=== PATIENT | male | born 1950 | race Caucasian/White ===

== ENCOUNTER 2018-03-30 11:26 | Outpatient (RCR) | payer SELFPAY | END 2018-04-07 23:59 | disposition home or self-care (01) | LOC: CR 11:26 | PROVIDERS: PCP Family Medicine; Visit Provider Family Medicine | DX: I25.5 Ischemic cardiomyopathy (principal); I25.10 Atherosclerotic heart disease of native coronary artery without angina pectoris; I34.0 Nonrheumatic mitral (valve) insufficiency; I10 Essential (primary) hypertension; Z51.89 Encounter for other specified aftercare ==

== ENCOUNTER 2018-04-27 13:27 | Outpatient (RCR) | payer SELFPAY | END 2018-05-07 23:59 | disposition home or self-care (01) | LOC: CR 13:27 | PROVIDERS: PCP Family Medicine; Visit Provider Family Medicine | DX: I25.10 Atherosclerotic heart disease of native coronary artery without angina pectoris (principal); I25.5 Ischemic cardiomyopathy; I34.0 Nonrheumatic mitral (valve) insufficiency; I10 Essential (primary) hypertension; Z51.89 Encounter for other specified aftercare ==

== ENCOUNTER 2018-05-22 06:11 | Emergency (ER) | payer MEDICARE, SELFPAY ==
[2018-05-22 06:15] VITALS: BP 142/73; PULSE 87; RESP 16; TEMP 36.7; O2SAT 97
[2018-05-22] MEDS: Oxymetazolone 0.05% SPRAY 15 ML BTL NS (06:29)
--- NOTE | 2018-05-22 06:46 | W.ED.GENAD ---
Discharge Plan Disposition Patient Disposition: HOME Discharge Details Chief Complaint: Epistaxis Clinical Impression: Epistaxis Primary Care Provider: Taye Ron ED Provider: Rakesh Stockton Home Meds and New Rx's Prescriptions: Continue acetaminophen 500 MG tablet 1,000 mg PO HS RF: 0 lisinopril 10 MG tablet 10 mg PO DAILY RF: 0 omega-3 fatty acids-fish oil 1 EACH capsule 1 ea PO RF: 0 insulin aspart U-100 [Novolog PenFill U-100 Insulin] 100 UNIT/1 ML cartridge RF: 0 insulin glargine [Lantus Solostar U-100 Insulin] 100 UNIT/1 ML insulin pen 50 unit Sub-Q HS RF: 0 atorvastatin 80 MG tablet 80 mg PO DAILY RF: 0 torsemide 20 MG tablet 20 mg PO DAILY Qty: 60 RF: 3 Metoprolol Succinate 50 MG TAB.ER.24H 50 mg PO DAILY 90 Days Qty: 90 RF: 3 aspirin 81 MG tablet,chewable 81 mg PO DAILY AM RF: 0 gabapentin 600 MG tablet 300 mg PO TID RF: 0 [id number] acid-lutein [Diabetes Health Formula] 1 EACH tablet 1 ea PO DAILY AM RF: 0 adalimumab [Humira Pen Psoriasis-Uveitis] 40 MG/0.8 ML pen injector kit 40 mg SQ RF: 0 tramadol 50 MG tablet 50 mg PO Q6H PRN PRN (Reason: Pain) Qty: 12 RF: 0 metaxalone 800 MG tablet 800 mg PO Q8H PRN PRN (Reason: Spasms) Qty: 12 RF: 0 liraglutide [Victoza 2-Yousuf] 0.6 MG/0.1 ML pen injector 0.6 mg Sub-Q DAILY RF: 0 Discharge Instructions Instructions: Nosebleed (ED) Additional Instructions: Do not blow your nose. Follow-up with Ear, Nose, Throat (ENT) specialist in 3 days. Call today to schedule. Keep balloon packing intact until removed by ENT. Do not take aspirin today. Please contact your primary care physician to arrange follow-up. Return to the ER for any worsening or new concerning symptoms. Referrals: Ceasar Nelson DO [OSTEOPATHIC DOCTOR] - Juan Jose Gutierrez MD [ [facility] STAFF PHYSICIAN] - Taye Ron [Primary Care Provider] - Medical Decision Making 6:50 --68-year-old male on low-dose aspirin, here with with epistaxis right nare. Actively bleeding. Clot removed and afrin applied. Nasal clamp applied. 7:40-- Patient reassessed and bleeding continued. Pt verbally consented to nasal packing. Procedure successful. Will discharge to have patient follow-up with ENT for balloon removal. HPI General Mode of arrival: ambulatory. Date/Time Provider Initiated Documentation: 05/22/18 06:22. Limitations to Documentation: no limitations. Information obtained by: patient. HPI Narrative: 68-year-old male on low-dose aspirin presents with epistaxis. Patient notes he woke up around 530 this morning with bleeding from his right nare. Bleeding was heavy. He attempted to pack his nose with tissue and this did not resolve bleeding. No associated dizziness. Related Data Home Medications Medication Instructions Recorded Confirmed adalimumab [Humira Pen 40 mg SQ 04/07/13 05/12/15 Psoriasis-Uveitis] aspirin 81 mg PO DAILY AM 04/07/13 06/14/17 gabapentin 300 mg PO TID 04/07/13 06/14/17 [id number] acid-lutein [Diabetes 1 ea PO DAILY AM 04/07/13 06/14/17 Health Formula] acetaminophen 1,000 mg PO HS tab-cap 03/31/15 06/14/17 atorvastatin 80 mg PO DAILY tab-cap 03/31/15 06/14/17 insulin aspart U-100 [Novolog 03/31/15 05/12/15 PenFill U-100 Insulin] insulin glargine [Lantus Solostar 50 unit SUB-Q HS 03/31/15 06/14/17 U-100 Insulin] lisinopril 10 mg PO DAILY tab-cap 03/31/15 06/14/17 omega-3 fatty acids-fish oil 1 ea PO 03/31/15 05/12/15 metaxalone 800 mg PO Q8H PRN PRN #12 tablet 09/25/16 06/14/17 tramadol 50 mg PO Q6H PRN PRN #12 tab 09/25/16 06/14/17 liraglutide [Victoza 2-Yousuf] 0.6 mg SUB-Q DAILY 06/14/17 06/14/17 torsemide 20 mg PO DAILY #60 tab-cap 10/13/17 Previous Rx's Medication Instructions Recorded metaxalone 800 mg PO Q8H PRN PRN #12 tablet 09/25/16 tramadol 50 mg PO Q6H PRN PRN #12 tab 09/25/16 torsemide 20 mg PO DAILY #60 tab-cap 10/13/17 Allergies Allergy/AdvReac Type Severity Reaction Status Date / Time shellfish derived Allergy Severe Hives Unverified 05/22/18 06:20 bee pollen Allergy Mild Anaphylaxsi Unverified 05/22/18 06:20 s methotrexate [Methotrexate] Allergy Unknown Unverified 05/22/18 06:20 General Stated Complaint: Epistaxis STEPHANIE: 4 Review of Systems Constitutional Denies weakness ENT Reports as per HPI Neurologic Denies weakness Hematologic/Lymphatic Denies easy bleeding PFSH Social History Smoking/Tobacco Use Status: Former Tobacco Use Exam Const General: no acute distress and well developed HENNH General nose exam: epistaxis on the right active bleeding and source not visualized Eyes Conjunctivae: conjunctivae normal Sclera: sclerae normal Resp Effort & Inspection: normal respiratory effort and able to speak in complete sentences Cardio Jugular venous pressure: no JVD Rate: regular rate Rhythm: regular rhythm Skin General skin exam: dry skin Neuro General: alert and awake Course Vital Signs Temperature 36.7 C 05/22/18 06:15 Pulse 87 05/22/18 06:15 Respiratory Rate 16 05/22/18 06:15 Blood Pressure 142/73 H 05/22/18 06:15 Pulse Oximetry 97 05/22/18 06:15 Temperature 36.7 C 05/22/18 06:15 Temperature Source Skin 05/22/18 06:15 Pulse 87 05/22/18 06:15 Respiratory Rate 16 05/22/18 06:15 Respiratory Effort Non-Labored 05/22/18 06:17 Blood Pressure 142/73 H 05/22/18 06:15 Pulse Oximetry 97 05/22/18 06:15 Pain Level 0 05/22/18 06:15 Procedures Epistaxis Control Time Out Performed: Yes Nostril: right Nose Prepped With: phenylephrine Direct Inspection: unable to visualize Device Inserted: hemostatic balloon (rhinorocket 7.5) Patient Tolerated Procedure: well and no complications
--- NOTE | 2018-05-22 06:53 | ED.GENADUL_ITS ---
Discharge Plan Disposition Patient Disposition: HOME Discharge Details Chief Complaint: Epistaxis Clinical Impression: Epistaxis Primary Care Provider: Taye Ron ED Provider: Rakesh Stockton Home Meds and New Rx's Prescriptions: Continue acetaminophen 500 MG tablet 1,000 mg PO HS RF: 0 lisinopril 10 MG tablet 10 mg PO DAILY RF: 0 omega-3 fatty acids-fish oil 1 EACH capsule 1 ea PO RF: 0 insulin aspart U-100 [Novolog PenFill U-100 Insulin] 100 UNIT/1 ML cartridge RF: 0 insulin glargine [Lantus Solostar U-100 Insulin] 100 UNIT/1 ML insulin pen 50 unit Sub-Q HS RF: 0 atorvastatin 80 MG tablet 80 mg PO DAILY RF: 0 torsemide 20 MG tablet 20 mg PO DAILY Qty: 60 RF: 3 Metoprolol Succinate 50 MG TAB.ER.24H 50 mg PO DAILY 90 Days Qty: 90 RF: 3 aspirin 81 MG tablet,chewable 81 mg PO DAILY AM RF: 0 gabapentin 600 MG tablet 300 mg PO TID RF: 0 gn-dwx-sjujf acid-lutein [Diabetes Health Formula] 1 EACH tablet 1 ea PO DAILY AM RF: 0 adalimumab [Humira Pen Psoriasis-Uveitis] 40 MG/0.8 ML pen injector kit 40 mg SQ RF: 0 tramadol 50 MG tablet 50 mg PO Q6H PRN PRN (Reason: Pain) Qty: 12 RF: 0 metaxalone 800 MG tablet 800 mg PO Q8H PRN PRN (Reason: Spasms) Qty: 12 RF: 0 liraglutide [Victoza 2-Yousuf] 0.6 MG/0.1 ML pen injector 0.6 mg Sub-Q DAILY RF: 0 Discharge Instructions Instructions: Nosebleed (ED) Additional Instructions: Do not blow your nose. Follow-up with Ear, Nose, Throat (ENT) specialist in 3 days. Call today to schedule. Keep balloon packing intact until removed by ENT. Do not take aspirin today. Please contact your primary care physician to arrange follow-up. Return to the ER for any worsening or new concerning symptoms. Referrals: Ceasar Nelson DO [OSTEOPATHIC DOCTOR] - Juan Jose Gutierrez MD [ [facility] STAFF PHYSICIAN] - Taye Ron [Primary Care Provider] - Medical Decision Making 6:50 --68-year-old male on low-dose aspirin, here with with epistaxis right nare. Actively bleeding. Clot removed and afrin applied. Nasal clamp applied. 7:40-- Patient reassessed and bleeding continued. Pt verbally consented to nasal packing. Procedure successful. Will discharge to have patient follow-up with ENT for balloon removal. HPI General Mode of arrival: ambulatory . Date/Time Provider Initiated Documentation: 05/22/18 06:22 . Limitations to Documentation: no limitations . Information obtained by: patient . HPI Narrative: 68-year-old male on low-dose aspirin presents with epistaxis. Patient notes he woke up around 530 this morning with bleeding from his right nare. Bleeding was heavy. He attempted to pack his nose with tissue and this did not resolve bleeding. No associated dizziness. Related Data Home Medications Medication Instructions Recorded Confirmed adalimumab [Humira Pen 40 mg SQ 04/07/13 05/12/15 Psoriasis-Uveitis] aspirin 81 mg PO DAILY AM 04/07/13 06/14/17 gabapentin 300 mg PO TID 04/07/13 06/14/17 pn-zqw-pfnrg acid-lutein [Diabetes 1 ea PO DAILY AM 04/07/13 06/14/17 Health Formula] acetaminophen 1,000 mg PO HS tab-cap 03/31/15 06/14/17 atorvastatin 80 mg PO DAILY tab-cap 03/31/15 06/14/17 insulin aspart U-100 [Novolog 03/31/15 05/12/15 PenFill U-100 Insulin] insulin glargine [Lantus Solostar 50 unit SUB-Q HS 03/31/15 06/14/17 U-100 Insulin] lisinopril 10 mg PO DAILY tab-cap 03/31/15 06/14/17 omega-3 fatty acids-fish oil 1 ea PO 03/31/15 05/12/15 metaxalone 800 mg PO Q8H PRN PRN #12 tablet 09/25/16 06/14/17 tramadol 50 mg PO Q6H PRN PRN #12 tab 09/25/16 06/14/17 liraglutide [Victoza 2-Yousuf] 0.6 mg SUB-Q DAILY 06/14/17 06/14/17 torsemide 20 mg PO DAILY #60 tab-cap 10/13/17 Previous Rx's Medication Instructions Recorded metaxalone 800 mg PO Q8H PRN PRN #12 tablet 09/25/16 tramadol 50 mg PO Q6H PRN PRN #12 tab 09/25/16 torsemide 20 mg PO DAILY #60 tab-cap 10/13/17 Allergies Allergy/AdvReac Type Severity Reaction Status Date / Time shellfish derived Allergy Severe Hives Unverified 05/22/18 06:20 bee pollen Allergy Mild Anaphylaxsi Unverified 05/22/18 06:20 s methotrexate [Methotrexate] Allergy Unknown Unverified 05/22/18 06:20 General Stated Complaint: Epistaxis STEPHANIE: 4 Review of Systems Constitutional Denies weakness ENT Reports as per HPI Neurologic Denies weakness Hematologic/Lymphatic Denies easy bleeding PFSH Social History Smoking/Tobacco Use Status: Former Tobacco Use Exam Const General: no acute distress and well developed HENID General nose exam: epistaxis on the right active bleeding and source not visualized Eyes Conjunctivae: conjunctivae normal Sclera: sclerae normal Resp Effort & Inspection: normal respiratory effort and able to speak in complete sentences Cardio Jugular venous pressure: no JVD Rate: regular rate Rhythm: regular rhythm Skin General skin exam: dry skin Neuro General: alert and awake Course Vital Signs Temperature 36.7 C 05/22/18 06:15 Pulse 87 05/22/18 06:15 Respiratory Rate 16 05/22/18 06:15 Blood Pressure 142/73 H 05/22/18 06:15 Pulse Oximetry 97 05/22/18 06:15 Temperature 36.7 C 05/22/18 06:15 Temperature Source Skin 05/22/18 06:15 Pulse 87 05/22/18 06:15 Respiratory Rate 16 05/22/18 06:15 Respiratory Effort Non-Labored 05/22/18 06:17 Blood Pressure 142/73 H 05/22/18 06:15 Pulse Oximetry 97 05/22/18 06:15 Pain Level 0 05/22/18 06:15 Procedures Epistaxis Control Time Out Performed: Yes Nostril: right Nose Prepped With: phenylephrine Direct Inspection: unable to visualize Device Inserted: hemostatic balloon (rhinorocket 7.5) Patient Tolerated Procedure: well and no complications
--- NOTE | 2018-05-22 10:04 | NUR.NOTE ---
Nursing Note: At the request of ENT in [place], [place] I faxed the physicain note for referral. Jasmyn Lamas.
== END 2018-05-22 08:38 | disposition home or self-care (01) ==
PROVIDERS: Emergency Provider Student in an Organized Health Care Education/Training Program; PCP Family Medicine
DX: R04.0 Epistaxis (principal); Z79.82 Long term (current) use of aspirin; E11.9 Type 2 diabetes mellitus without complications; Z79.4 Long term (current) use of insulin; I10 Essential (primary) hypertension
CPT/HCPCS: 30901

== ENCOUNTER 2018-06-01 09:00 | Outpatient (RCR) | payer SELFPAY | END 2018-06-07 23:59 | disposition home or self-care (01) | LOC: CR 09:00 | PROVIDERS: PCP Family Medicine; Visit Provider Family Medicine | DX: Z51.89 Encounter for other specified aftercare (principal) ==

== ENCOUNTER 2018-06-15 09:00 | Outpatient (RCR) | payer SELFPAY | END 2018-07-07 23:59 | disposition home or self-care (01) | LOC: CR 09:00 | PROVIDERS: PCP Family Medicine; Visit Provider Family Medicine | DX: Z51.89 Encounter for other specified aftercare (principal) ==

== ENCOUNTER 2018-06-20 09:28 | Emergency (ER) | payer MEDICARE, SELFPAY ==
--- NOTE | 2018-06-20 09:41 | W.ED.GENAD ---
Discharge Plan Disposition Patient Disposition: HOME Condition: Stable Discharge Details Chief Complaint: Chest Pain Clinical Impression: Chest pain Primary Care Provider: Taye Ron ED Provider: Luis Felipe Ugalde Home Meds and New Rx's Prescriptions: Continue acetaminophen 500 MG tablet 1,000 mg PO HS RF: 0 lisinopril 10 MG tablet 10 mg PO DAILY RF: 0 omega-3 fatty acids-fish oil 1 EACH capsule 1 ea PO RF: 0 insulin aspart U-100 [Novolog PenFill U-100 Insulin] 100 UNIT/1 ML cartridge RF: 0 insulin glargine [Lantus Solostar U-100 Insulin] 100 UNIT/1 ML insulin pen 50 unit Sub-Q HS RF: 0 atorvastatin 80 MG tablet 80 mg PO DAILY RF: 0 torsemide 20 MG tablet 20 mg PO DAILY Qty: 60 RF: 3 Metoprolol Succinate 50 MG TAB.ER.24H 50 mg PO DAILY 90 Days Qty: 90 RF: 3 aspirin 81 MG tablet,chewable 81 mg PO DAILY AM RF: 0 gabapentin 600 MG tablet 300 mg PO TID RF: 0 xe-qjv-khfnk acid-lutein [Diabetes Health Formula] 1 EACH tablet 1 ea PO DAILY AM RF: 0 adalimumab [Humira Pen Psoriasis-Uveitis] 40 MG/0.8 ML pen injector kit 40 mg SQ RF: 0 tramadol 50 MG tablet 50 mg PO Q6H PRN PRN (Reason: Pain) Qty: 12 RF: 0 metaxalone 800 MG tablet 800 mg PO Q8H PRN PRN (Reason: Spasms) Qty: 12 RF: 0 liraglutide [Victoza 2-Yousuf] 0.6 MG/0.1 ML pen injector 0.6 mg Sub-Q DAILY RF: 0 metformin 1,000 mg Tablet 1,000 mg PO BID RF: 0 magnesium oxide 400 mg Capsule 400 mg PO BID RF: 0 Discharge Instructions Instructions: Chest Pain (ED) Additional Instructions: follow up with your search engine optimization analyst as scheduled if you have severe worsening of pain or difficutly breathing or pain while at rest return to the emergency department Medical Decision Making 68 yo male with hx of psoriasis, DM, HTN, former smoker, who states he has cad that he was told can't be operated on, comes in with chest pain. He states he normally gets chest pressure with exertion and today was clearing snow off his car when he started to have the chest pressure again and decreased when he stopped. He walked from his car to cardiac rehab and said he was again having the pain so they sent him here. He currently denies any pain. He has no fevers, dyspnea, recent immobilization. ECG unchanged, will send troponin. He has no evidence of dvt, pleuritic pain or hypoxia so unlikely PE. Normal vascular exam and no tearing back pain so doubt dissection pt's labs and xray unremarkable and he remains pain free on my questioning. admission recommended given his high heart score over 3 but he declined, has capacity to make his own decisions and understands risks including disability and . He is willing to stay for second troponin which I will order as well as repeat ekg second troponin negative, still no interest in admission and remains pain free. Offered to refer for stress testing but he wants to f/u with his search engine optimization analyst and discuss it with them. Will d/c and return precautions given Differential Diagnosis acs, ptx, angina, stable angina, dissection Imaging Data Radiologic Study: Attestation: I personally reviewed and interpreted this imaging study as follows: Imaging: X-Ray Radiologist's impression: no acute findings Lab Data Lab results reviewed: Yes I reviewed the patient's lab results. ECG Data Attestation: I personally reviewed and interpreted this ECG (s) as follows: Prior ECG tracings: available for review Interpretation: sinus tachycardia, rate of 107, pr 176, qtc normal, lvh, no acute ischemic changes compared to prior ecg 2nd ekg shows sinnus rhythm, rate of 88, pr 200, no acute changes compared to 1st ekg HPI General Mode of arrival: ambulatory. Date/Time Provider Initiated Documentation: 06/20/18 09:30. Limitations to Documentation: no limitations. Information obtained by: patient. History of Present Illness 68 year old M presents to the emergency department with the chief complaint of chest pain, described as mild, with intensity rated at 1. Quality is described as aching, and is localized to the chest. Patient reports no radiation. Patient started experiencing this hour(s) (1) Rest improves symptom(s), Movement worsens symptoms . Patient notes no other symptoms.. Patient did receive the following treatments prior to arrival, none Related Data Home Medications Medication Instructions Recorded Confirmed adalimumab [Humira Pen 40 mg SQ 04/07/13 05/12/15 Psoriasis-Uveitis] aspirin 81 mg PO DAILY AM 04/07/13 05/22/18 gabapentin 300 mg PO TID 04/07/13 05/22/18 eb-ekk-thcuh acid-lutein [Diabetes 1 ea PO DAILY AM 04/07/13 05/22/18 Health Formula] acetaminophen 1,000 mg PO HS tab-cap 03/31/15 05/22/18 atorvastatin 80 mg PO DAILY tab-cap 03/31/15 05/22/18 insulin aspart U-100 [Novolog 03/31/15 05/12/15 PenFill U-100 Insulin] insulin glargine [Lantus Solostar 50 unit SUB-Q HS 03/31/15 05/22/18 U-100 Insulin] lisinopril 10 mg PO DAILY tab-cap 03/31/15 05/22/18 omega-3 fatty acids-fish oil 1 ea PO 03/31/15 05/12/15 metaxalone 800 mg PO Q8H PRN PRN #12 tablet 09/25/16 05/22/18 tramadol 50 mg PO Q6H PRN PRN #12 tab 09/25/16 05/22/18 liraglutide [Victoza 2-Yousuf] 0.6 mg SUB-Q DAILY 06/14/17 05/22/18 torsemide 20 mg PO DAILY #60 tab-cap 10/13/17 05/22/18 magnesium oxide 400 mg PO BID 05/22/18 05/22/18 metformin 1,000 mg PO BID 05/22/18 05/22/18 Previous Rx's Medication Instructions Recorded metaxalone 800 mg PO Q8H PRN PRN #12 tablet 09/25/16 tramadol 50 mg PO Q6H PRN PRN #12 tab 09/25/16 torsemide 20 mg PO DAILY #60 tab-cap 10/13/17 Allergies Allergy/AdvReac Type Severity Reaction Status Date / Time shellfish derived Allergy Severe Hives Unverified 05/22/18 06:20 bee pollen Allergy Mild Anaphylaxsi Unverified 05/22/18 06:20 s methotrexate [Methotrexate] Allergy Unknown Unverified 05/22/18 06:20 General STEPHANIE: 4 Review of Systems Review of Systems All systems reviewed & are unremarkable except as noted in HPI and below Constitutional Denies chills, Denies fever(s) and Denies weakness Eyes Denies loss of vision ENT Denies change in voice Cardiovascular Denies dyspnea Respiratory Denies dyspnea Gastrointestinal Denies abdominal pain, Denies nausea and Denies vomiting Genitourinary Denies dysuria Musculoskeletal Denies joint swelling Integumentary/Breasts Denies rash Neurologic Denies loss of vision and Denies weakness Psychiatric Denies depression Endocrine Denies cold intolerance and Denies heat intolerance Allergic/Immunologic Denies urticaria [facility], [facility] Social History Smoking/Tobacco Use Status: Former Tobacco Use Exam Const General: no acute distress Orientation: alert HENMT Head: normal to inspection Ears: external ears normal General nose exam: external nose normal Mouth: moist mucous membranes Eyes General: appearance normal, both eyes and all related structures Neck Neck: normal visual inspection Resp Effort & Inspection: normal respiratory effort and able to speak in complete sentences Cardio Rate: regular rate Skin General skin exam: no rashes or lesions noted Neuro General: alert and oriented x3 Extrem General: normal to inspection Psych Mental Status: mental status grossly normal
[2018-06-20] MEDS: Aspirin 81 MG CHEW 243 MG CH (09:45)
--- NOTE | 2018-06-20 09:46 | ED.GENADUL_ITS ---
Discharge Plan Disposition Patient Disposition: HOME Condition: Stable Discharge Details Chief Complaint: Chest Pain Clinical Impression: Chest pain Primary Care Provider: Taye Ron ED Provider: Luis Felipe Ugalde Home Meds and New Rx's Prescriptions: Continue acetaminophen 500 MG tablet 1,000 mg PO HS RF: 0 lisinopril 10 MG tablet 10 mg PO DAILY RF: 0 omega-3 fatty acids-fish oil 1 EACH capsule 1 ea PO RF: 0 insulin aspart U-100 [Novolog PenFill U-100 Insulin] 100 UNIT/1 ML cartridge RF: 0 insulin glargine [Lantus Solostar U-100 Insulin] 100 UNIT/1 ML insulin pen 50 unit Sub-Q HS RF: 0 atorvastatin 80 MG tablet 80 mg PO DAILY RF: 0 torsemide 20 MG tablet 20 mg PO DAILY Qty: 60 RF: 3 Metoprolol Succinate 50 MG TAB.ER.24H 50 mg PO DAILY 90 Days Qty: 90 RF: 3 aspirin 81 MG tablet,chewable 81 mg PO DAILY AM RF: 0 gabapentin 600 MG tablet 300 mg PO TID RF: 0 jy-aha-iejig acid-lutein [Diabetes Health Formula] 1 EACH tablet 1 ea PO DAILY AM RF: 0 adalimumab [Humira Pen Psoriasis-Uveitis] 40 MG/0.8 ML pen injector kit 40 mg SQ RF: 0 tramadol 50 MG tablet 50 mg PO Q6H PRN PRN (Reason: Pain) Qty: 12 RF: 0 metaxalone 800 MG tablet 800 mg PO Q8H PRN PRN (Reason: Spasms) Qty: 12 RF: 0 liraglutide [Victoza 2-Yousuf] 0.6 MG/0.1 ML pen injector 0.6 mg Sub-Q DAILY RF: 0 metformin 1,000 mg Tablet 1,000 mg PO BID RF: 0 magnesium oxide 400 mg Capsule 400 mg PO BID RF: 0 Discharge Instructions Instructions: Chest Pain (ED) Additional Instructions: follow up with your copy camera operator as scheduled if you have severe worsening of pain or difficutly breathing or pain while at rest return to the emergency department Medical Decision Making 68 yo male with hx of psoriasis, DM, HTN, former smoker, who states he has cad that he was told can't be operated on, comes in with chest pain. He states he normally gets chest pressure with exertion and today was clearing snow off his car when he started to have the chest pressure again and decreased when he stopped. He walked from his car to cardiac rehab and said he was again having the pain so they sent him here. He currently denies any pain. He has no fevers, dyspnea, recent immobilization. ECG unchanged, will send troponin. He has no evidence of dvt, pleuritic pain or hypoxia so unlikely PE. Normal vascular exam and no tearing back pain so doubt dissection pt's labs and xray unremarkable and he remains pain free on my questioning. admission recommended given his high heart score over 3 but he declined, has capacity to make his own decisions and understands risks including disability and . He is willing to stay for second troponin which I will order as well as repeat ekg second troponin negative, still no interest in admission and remains pain free. Offered to refer for stress testing but he wants to f/u with his copy camera operator and discuss it with them. Will d/c and return precautions given Differential Diagnosis acs, ptx, angina, stable angina, dissection Imaging Data Radiologic Study: Attestation: I personally reviewed and interpreted this imaging study as follows: Imaging: X-Ray Radiologist's impression: no acute findings Lab Data Lab results reviewed: Yes I reviewed the patient's lab results. ECG Data Attestation: I personally reviewed and interpreted this ECG (s) as follows: Prior ECG tracings: available for review Interpretation: sinus tachycardia, rate of 107, pr 176, qtc normal, lvh, no acute ischemic changes compared to prior ecg 2nd ekg shows sinnus rhythm, rate of 88, pr 200, no acute changes compared to 1st ekg HPI General Mode of arrival: ambulatory . Date/Time Provider Initiated Documentation: 06/20/18 09:30 . Limitations to Documentation: no limitations . Information obtained by: patient . History of Present Illness 68 year old M presents to the emergency department with the chief complaint of chest pain, described as mild, with intensity rated at 1. Quality is described as aching, and is localized to the chest. Patient reports no radiation. Patient started experiencing this hour(s) (1) Rest improves symptom(s), Movement worsens symptoms . Patient notes no other symptoms.. Patient did receive the following treatments prior to arrival, none Related Data Home Medications Medication Instructions Recorded Confirmed adalimumab [Humira Pen 40 mg SQ 04/07/13 05/12/15 Psoriasis-Uveitis] aspirin 81 mg PO DAILY AM 04/07/13 05/22/18 gabapentin 300 mg PO TID 04/07/13 05/22/18 an-bae-qlmpm acid-lutein [Diabetes 1 ea PO DAILY AM 04/07/13 05/22/18 Health Formula] acetaminophen 1,000 mg PO HS tab-cap 03/31/15 05/22/18 atorvastatin 80 mg PO DAILY tab-cap 03/31/15 05/22/18 insulin aspart U-100 [Novolog 03/31/15 05/12/15 PenFill U-100 Insulin] insulin glargine [Lantus Solostar 50 unit SUB-Q HS 03/31/15 05/22/18 U-100 Insulin] lisinopril 10 mg PO DAILY tab-cap 03/31/15 05/22/18 omega-3 fatty acids-fish oil 1 ea PO 03/31/15 05/12/15 metaxalone 800 mg PO Q8H PRN PRN #12 tablet 09/25/16 05/22/18 tramadol 50 mg PO Q6H PRN PRN #12 tab 09/25/16 05/22/18 liraglutide [Victoza 2-Yousuf] 0.6 mg SUB-Q DAILY 06/14/17 05/22/18 torsemide 20 mg PO DAILY #60 tab-cap 10/13/17 05/22/18 magnesium oxide 400 mg PO BID 05/22/18 05/22/18 metformin 1,000 mg PO BID 05/22/18 05/22/18 Previous Rx's Medication Instructions Recorded metaxalone 800 mg PO Q8H PRN PRN #12 tablet 09/25/16 tramadol 50 mg PO Q6H PRN PRN #12 tab 09/25/16 torsemide 20 mg PO DAILY #60 tab-cap 10/13/17 Allergies Allergy/AdvReac Type Severity Reaction Status Date / Time shellfish derived Allergy Severe Hives Unverified 05/22/18 06:20 bee pollen Allergy Mild Anaphylaxsi Unverified 05/22/18 06:20 s methotrexate [Methotrexate] Allergy Unknown Unverified 05/22/18 06:20 General STEPHANIE: 4 Review of Systems Review of Systems All systems reviewed & are unremarkable except as noted in HPI and below Constitutional Denies chills, Denies fever(s) and Denies weakness Eyes Denies loss of vision ENT Denies change in voice Cardiovascular Denies dyspnea Respiratory Denies dyspnea Gastrointestinal Denies abdominal pain, Denies nausea and Denies vomiting Genitourinary Denies dysuria Musculoskeletal Denies joint swelling Integumentary/Breasts Denies rash Neurologic Denies loss of vision and Denies weakness Psychiatric Denies depression Endocrine Denies cold intolerance and Denies heat intolerance Allergic/Immunologic Denies urticaria [facility] Social History Smoking/Tobacco Use Status: Former Tobacco Use Exam Const General: no acute distress Orientation: alert HENMT Head: normal to inspection Ears: external ears normal General nose exam: external nose normal Mouth: moist mucous membranes Eyes General: appearance normal, both eyes and all related structures Neck Neck: normal visual inspection Resp Effort & Inspection: normal respiratory effort and able to speak in complete sentences Cardio Rate: regular rate Skin General skin exam: no rashes or lesions noted Neuro General: alert and oriented x3 Extrem General: normal to inspection Psych Mental Status: mental status grossly normal
[2018-06-20 09:47] VITALS: BP 137/91; PULSE 106; RESP 18; TEMP 36.8; O2SAT 96
--- NOTE | 2018-06-20 10:00 | DI.RAD_ITS ---
SYMPTOMS/DIAGNOSIS: CHEST PAIN CHEST X-RAY, PA AND LATERAL: Comparison is 06/14/17. The heart size and pulmonary vasculature are stable and within normal limits. The lungs are clear. No effusions, infiltrates or pneumothoraces are identified. Age-appropriate degenerative changes are seen in the spine. IMPRESSION: No acute pulmonary process.
[2018-06-20 10:08] LABS: INR 1.1 (1.0-3.5); PTT Activated 23.2 sec (21.0-31.4); Prothrombin Time 10.3 sec (9.3-10.8)
[2018-06-20 10:16] LABS: ALT 76 U/L (12-78); AST 38 U/L (15-37); Albumin 3.9 g/dL (3.4-5.0); Alkaline Phosphatase 63 U/L (46-116); Anion Gap 11.8 mmol/L (3-11); BUN 16 mg/dL (7-18); Bilirubin, Total 0.6 mg/dL (0.2-1.0); CO2 24.2 mmol/L (21.0-32.0); CREATININE 0.96 mg/dL (0.70-1.30); Calcium 8.8 mg/dL (8.5-10.1); Chloride 100 mmol/L (98-107); Glucose 375 mg/dL (70-100); Magnesium 1.6 mg/dL (1.8-2.4); NT-proBNP 532 pg/mL; Potassium 4.1 mmol/L (3.5-5.1); Sodium 136 mmol/L (136-145); Total Protein 7.8 g/dL (6.4-8.2)
[2018-06-20 10:18] LABS: Abs Immature Grans 0.03 k/cumm (0.0-0.09); Absolute Basophil Count 0.05 k/cumm (0.0-0.2); Absolute Eosinophil Count 0.23 k/cumm (0.0-0.7); Absolute Lymphocyte Count 3.47 k/cumm (1.2-3.4); Absolute Monocyte Count 0.56 k/cumm (0.11-0.7); Absolute Neutrophil Count 5.86 k/cumm (1.2-6.7); Basophils % 0.5; Eosinophils % 2.3; HCT 43.5 % (40.0-50.0); Immature Grans % 0.3; Mean Corp. HGB Concentration 34.5 g/dL (32.0-36.0); Mean Corpuscular Hemoglobin 30.4 pg (27.0-33.0); Mean Corpuscular Volume 88.1 fL (80-95); Monocytes % 5.5; Neutrophils % 57.4; Platelet Count 253 x1000/uL (130-400); RBC 4.94 m/cumm (4.50-6.00); RBC Distribution Width 13.8 % (11.8-14.1)
[2018-06-20 10:29] LABS: Troponin I < 0.02 ng/mL (0.00-0.06)
[2018-06-20 12:49] LABS: Troponin I 0.03 ng/mL (0.00-0.06)
[2018-06-20 13:14] VITALS: BP 133/80; PULSE 80; RESP 18; TEMP 36.8; O2SAT 96
== END 2018-06-20 13:12 | disposition home or self-care (01) ==
PROVIDERS: Emergency Provider Emergency Medicine; PCP Family Medicine
DX: R07.9 Chest pain, unspecified (principal); I25.10 Atherosclerotic heart disease of native coronary artery without angina pectoris; E11.9 Type 2 diabetes mellitus without complications; Z79.4 Long term (current) use of insulin; I10 Essential (primary) hypertension
CPT/HCPCS: 36415; 80053; 93005; 99285; 71046; 83735; 83880; 84484; 85025; 85610; 85730; 93010; 99284

== ENCOUNTER 2018-07-04 12:21 | Outpatient (REF) | payer MEDICARE, SELFPAY ==
[2018-07-04 19:02] LABS: COMMENT (LAB VIEW ONLY) 57.04 mg/dL; Microalb ug/mg Crea 17.4 ug/mg Cr
== END 2018-07-04 12:41 ==
LOC: NCHCN 12:21
PROVIDERS: PCP Family Medicine; Visit Provider Family Medicine
DX: E11.9 Type 2 diabetes mellitus without complications (principal)
CPT/HCPCS: 82043; 82570

== ENCOUNTER → 2018-07-06 10:10 | Outpatient (BNVA) | payer MEDICARE, SELFPAY | PROVIDERS: PCP Family Medicine; Visit Provider Internal Medicine Cardiovascular Disease | DX: I25.10 Atherosclerotic heart disease of native coronary artery without angina pectoris (principal); I25.5 Ischemic cardiomyopathy; I10 Essential (primary) hypertension; E78.5 Hyperlipidemia, unspecified; E11.9 Type 2 diabetes mellitus without complications; Z79.4 Long term (current) use of insulin; I34.0 Nonrheumatic mitral (valve) insufficiency | CPT/HCPCS: 99214 ==

== ENCOUNTER 2018-07-08 04:11 | Outpatient (RCR) | payer SELFPAY | END 2018-08-07 23:59 | LOC: CR 04:11 | PROVIDERS: PCP Family Medicine; Visit Provider Family Medicine | DX: Z51.89 Encounter for other specified aftercare (principal) ==

== ENCOUNTER 2018-08-09 10:47 | Outpatient (RCR) | payer SELFPAY | END 2018-09-07 23:59 | disposition home or self-care (01) | LOC: CR 10:47 | PROVIDERS: PCP Family Medicine; Visit Provider Family Medicine | DX: Z51.89 Encounter for other specified aftercare (principal) ==

== ENCOUNTER 2018-09-08 03:50 | Outpatient (RCR) | payer SELFPAY | END 2018-10-05 23:59 | disposition home or self-care (01) | LOC: CR 03:50 | PROVIDERS: PCP Family Medicine; Visit Provider Family Medicine | DX: Z51.89 Encounter for other specified aftercare (principal) ==

== ENCOUNTER 2018-10-07 08:26 | Outpatient (RCR) | payer SELFPAY ==
--- NOTE | 2018-10-31 07:41 | PR3E_ITS ---
68 year old male joined the maintenance phase of cardiac rehabilitation on October 25, 2017 after completing Phase 2 s/p myocardial infarction. The patient attended classes from October 2017- June 2018. Attempt to reach patient for follow up was unsuccessful. Will assist patient in re-enrolling in the program and obtaining proper referrals in the future should he want to return.
== END 2018-11-05 23:59 | disposition home or self-care (01) ==
LOC: CR 08:26
PROVIDERS: PCP Family Medicine; Visit Provider Family Medicine
DX: Z51.89 Encounter for other specified aftercare (principal)

== ENCOUNTER 2019-01-04 13:35 | Outpatient (RCR) | payer SELFPAY | END 2019-01-05 23:59 | disposition home or self-care (01) | LOC: CR 13:35 | PROVIDERS: PCP Family Medicine; Visit Provider Family Medicine | DX: Z51.89 Encounter for other specified aftercare (principal) ==

== ENCOUNTER 2019-01-07 04:35 | Outpatient (RCR) | payer SELFPAY | END 2019-02-04 23:59 | disposition home or self-care (01) | LOC: CR 04:35 | PROVIDERS: PCP Family Medicine; Visit Provider Family Medicine | DX: Z51.89 Encounter for other specified aftercare (principal) ==

== ENCOUNTER 2019-01-26 15:33 | Emergency (ER) | payer MEDICARE, SELFPAY ==
[2019-01-26] VITALS (39 sets, daily range): BP systolic 85–129; BP diastolic 42–97; PULSE 71–84; RESP 6–29; TEMP 37.1; O2SAT 91–96
--- NOTE | 2019-01-26 16:00 | W.ED.GENAD ---
Discharge Plan Disposition Patient Disposition: [facility] Condition: Stable Discharge Details Chief Complaint: Chest Pain Clinical Impression: Non-ST elevation [place] (NSTEMI) Primary Care Provider: Taye Ron ED Provider: Luis Felipe Ugalde [place] Meds and New Rx's Prescriptions: No Action spironolactone 50 mg tablet 50 mg PO DAILY RF: 0 trazodone 50 mg tablet 50 mg PO DAILY RF: 0 magnesium oxide 500 mg capsule 500 mg PO BID RF: 0 isosorbide mononitrate 30 mg tablet extended release 24 hr 120 mg PO DAILY RF: 0 lisinopril 10 MG tablet 10 mg PO DAILY RF: 0 omega-3 fatty acids-fish oil 1 EACH capsule 1 ea PO RF: 0 insulin aspart U-100 [Novolog PenFill U-100 Insulin] 100 UNIT/1 ML cartridge RF: 0 insulin glargine [Lantus Solostar U-100 Insulin] 100 UNIT/1 ML insulin pen 50 unit Sub-Q HS RF: 0 torsemide 20 MG tablet 20 mg PO DAILY Qty: 60 RF: 3 atorvastatin 80 mg tablet 80 mg PO DAILY Qty: 30 RF: 11 metoprolol succinate 50 mg tablet extended release 24 hr 50 mg PO DAILY Qty: 90 RF: 3 aspirin 81 MG tablet,chewable 81 mg PO DAILY AM RF: 0 gabapentin 600 MG tablet 300 mg PO TID RF: 0 gr-pmr-wjpwm acid-lutein [Diabetes Health Formula] 1 EACH tablet 1 ea PO DAILY AM RF: 0 adalimumab [Humira Pen Whyt-Mpzmlj-Nsam HS] 40 MG/0.8 ML pen injector kit 40 mg SQ RF: 0 liraglutide [Victoza 2-Yousuf] 0.6 mg/0.1 mL (18 mg/3 mL) pen injector 1.8 mg Sub-Q DAILY RF: 0 metformin 1,000 mg Tablet 1,000 mg PO BID RF: 0 Medical Decision Making 68 yo male with hx of cad, ischemic CM, hld, htn, dm, who comes in with intemrittent chest pain. He states the past week he has had to take nitro and notices some pain both at rest and with exxertion. He denies any pain currently during my exam and denies sob, fevers, chills. He Has no jvd, no pitting lower extremity edema. His ecg shows mild st depressions in the lateral leads, will send troponin. No tachycardia or evidence of dvt and no pleuritic chest pain so doubt PE at this time and no tearing back pain and normal vascular exam so doubt dissection pt remains stable, his troponin is elevated at 0.14 and remains pain free at this time. Will discuss case with cardiology at [facility] Spoke with Dr. Carpenter refrigeration service inspector at [facility] who agrees with asa, plavix and heparin. They will accept in transfer for further management. Patient is in agreement with the plan Differential Diagnosis nstemi, stable angina, unstable angina Medical Records Medical records reviewed: Yes I reviewed the patient's medical records. Imaging Data Radiologic Study: Attestation: I personally reviewed and interpreted this imaging study as follows: Imaging: X-Ray Radiologist's impression: no acute findings Lab Data Lab results reviewed: Yes I reviewed the patient's lab results. ECG Data Attestation: I personally reviewed and interpreted this ECG (s) as follows: Prior ECG tracings: available for review Interpretation: sinus rhythm, rate of 83, mild st depression in lateral leads 2nd ekg shows sinus rhtyhm, rate of 80, continued st depressions in the lateral leads HPI General Mode of arrival: ambulatory. Date/Time Provider Initiated Documentation: 01/26/19 15:47. Limitations to Documentation: no limitations. Information obtained by: patient. History of Present Illness 68 year old M presents to the emergency department with the chief complaint of chest pain, described as mild, Quality is described as aching, and is localized to the chest. Patient reports no radiation. and it has been now resolved. other things that improve symptom(s), (laying flat) No exacerbating factors reported . Patient did receive the following treatments prior to arrival, none Related Data Home Medications Medication Instructions Recorded Confirmed adalimumab [Humira Pen 40 mg SQ 04/07/13 07/06/18 Xfvt-Nzabnb-Rqhj HS] aspirin 81 mg PO DAILY AM 04/07/13 07/06/18 gabapentin 300 mg PO TID 04/07/13 07/06/18 ek-cyk-krcmo acid-lutein [Diabetes 1 ea PO DAILY AM 04/07/13 07/06/18 Health Formula] insulin aspart U-100 [Novolog 03/31/15 07/06/18 PenFill U-100 Insulin] insulin glargine [Lantus Solostar 50 unit SUB-Q HS 03/31/15 07/06/18 U-100 Insulin] lisinopril 10 mg PO DAILY tab-cap 03/31/15 07/06/18 omega-3 fatty acids-fish oil 1 ea PO 03/31/15 07/06/18 torsemide 20 mg PO DAILY #60 tab-cap 10/13/17 07/06/18 metformin 1,000 mg PO BID 05/22/18 07/06/18 liraglutide 0.6 mg/0.1 mL (18 mg/3 1.8 mg SUB-Q DAILY ml 07/06/18 07/06/18 mL) subcutaneous pen injector magnesium oxide 500 mg capsule 500 mg PO BID cap 07/06/18 07/06/18 spironolactone 50 mg tablet 50 mg PO DAILY 07/06/18 07/06/18 trazodone 50 mg tablet 50 mg PO DAILY 07/06/18 07/06/18 atorvastatin 80 mg tablet 80 mg PO DAILY #30 tab-cap 09/06/18 isosorbide mononitrate ER 30 mg 120 mg PO DAILY tab 11/09/18 tablet,extended release 24 hr metoprolol succinate ER 50 mg 50 mg PO DAILY #90 tab 12/05/18 tablet,extended release 24 hr Previous Rx's Medication Instructions Recorded torsemide 20 mg PO DAILY #60 tab-cap 10/13/17 atorvastatin 80 mg tablet 80 mg PO DAILY #30 tab-cap 09/06/18 metoprolol succinate ER 50 mg 50 mg PO DAILY #90 tab 12/05/18 tablet,extended release 24 hr Allergies Allergy/AdvReac Type Severity Reaction Status Date / Time shellfish derived Allergy Severe Hives Unverified 01/26/19 15:43 bee pollen Allergy Mild Anaphylaxsi Unverified 01/26/19 15:43 s methotrexate [Methotrexate] Allergy Unknown Unverified 01/26/19 15:43 General Stated Complaint: Chest Pain STEPHANIE: 2 Review of Systems Review of Systems All systems reviewed & are unremarkable except as noted in HPI and below Constitutional Denies chills, Denies fever(s) and Denies weakness Cardiovascular Denies dyspnea Respiratory Denies cough and Denies dyspnea Gastrointestinal Denies abdominal pain, Denies nausea and Denies vomiting Neurologic Denies weakness PFSH Social History Smoking/Tobacco Use Status: Former Tobacco Use Alcohol Intake: former Drug use: Never Do you feel safe at home: Yes Do you feel safe in your relationship?: Yes Exam Const General: no acute distress Orientation: alert HENMT Head: normal to inspection Ears: external ears normal General nose exam: external nose normal Mouth: moist mucous membranes Eyes General: appearance normal, both eyes and all related structures Neck Neck: normal visual inspection Resp Effort & Inspection: normal respiratory effort and able to speak in complete sentences Cardio Rate: regular rate Skin General skin exam: no rashes or lesions noted Neuro General: alert and oriented x3 Extrem General: normal to inspection Psych Mental Status: mental status grossly normal Course Vital Signs Temperature 37.1 C 01/26/19 15:37 Pulse 84 01/26/19 15:37 Respiratory Rate 14 01/26/19 15:37 Pulse Oximetry 96 01/26/19 15:37 Temperature 37.1 C 01/26/19 15:37 Pulse 84 01/26/19 15:37 Respiratory Rate 14 01/26/19 15:37 Respiratory Effort Non-Labored 01/26/19 15:40 Blood Pressure Position Sitting 01/26/19 15:37 Pulse Oximetry 96 01/26/19 15:37 Oxygen Delivery Method Room Air 01/26/19 15:37 Oxygen Flow Rate 0 01/26/19 15:37 Pain Level 0 01/26/19 15:37 Critical Care Time Critical Care Time: Yes Total Critical Care Time: 60 (minutes) Attestation: time spent performing lab review, ecg review, frequent reassements in patient with nstemi and potential to deteriorate at any time
--- NOTE | 2019-01-26 16:08 | ED.GENADUL_ITS ---
Discharge Plan Disposition Patient Disposition: [facility] Condition: Stable Discharge Details Chief Complaint: Chest Pain Clinical Impression: Non-ST elevation [place] (NSTEMI) Primary Care Provider: Taye Ron ED Provider: Luis Felipe Ugalde [place] Meds and New Rx's Prescriptions: No Action spironolactone 50 mg tablet 50 mg PO DAILY RF: 0 trazodone 50 mg tablet 50 mg PO DAILY RF: 0 magnesium oxide 500 mg capsule 500 mg PO BID RF: 0 isosorbide mononitrate 30 mg tablet extended release 24 hr 120 mg PO DAILY RF: 0 lisinopril 10 MG tablet 10 mg PO DAILY RF: 0 omega-3 fatty acids-fish oil 1 EACH capsule 1 ea PO RF: 0 insulin aspart U-100 [Novolog PenFill U-100 Insulin] 100 UNIT/1 ML cartridge RF: 0 insulin glargine [Lantus Solostar U-100 Insulin] 100 UNIT/1 ML insulin pen 50 unit Sub-Q HS RF: 0 torsemide 20 MG tablet 20 mg PO DAILY Qty: 60 RF: 3 atorvastatin 80 mg tablet 80 mg PO DAILY Qty: 30 RF: 11 metoprolol succinate 50 mg tablet extended release 24 hr 50 mg PO DAILY Qty: 90 RF: 3 aspirin 81 MG tablet,chewable 81 mg PO DAILY AM RF: 0 gabapentin 600 MG tablet 300 mg PO TID RF: 0 hi-sko-lomor acid-lutein [Diabetes Health Formula] 1 EACH tablet 1 ea PO DAILY AM RF: 0 adalimumab [Humira Pen Waza-Cvimmg-Rbgp HS] 40 MG/0.8 ML pen injector kit 40 mg SQ RF: 0 liraglutide [Victoza 2-Yousuf] 0.6 mg/0.1 mL (18 mg/3 mL) pen injector 1.8 mg Sub-Q DAILY RF: 0 metformin 1,000 mg Tablet 1,000 mg PO BID RF: 0 Medical Decision Making 68 yo male with hx of cad, ischemic CM, hld, htn, dm, who comes in with intemrittent chest pain. He states the past week he has had to take nitro and notices some pain both at rest and with exxertion. He denies any pain currently during my exam and denies sob, fevers, chills. He Has no jvd, no pitting lower extremity edema. His ecg shows mild st depressions in the lateral leads, will send troponin. No tachycardia or evidence of dvt and no pleuritic chest pain so doubt PE at this time and no tearing back pain and normal vascular exam so doubt dissection pt remains stable, his troponin is elevated at 0.14 and remains pain free at this time. Will discuss case with cardiology at [facility] [place] with Dr. Carpenter senior fund accountant at [facility] [place] who agrees with asa, plavix and heparin. They will accept in transfer for further management. Patient is in agreement with the plan Differential Diagnosis nstemi, stable angina, unstable angina Medical Records Medical records reviewed: Yes I reviewed the patient's medical records. Imaging Data Radiologic Study: Attestation: I personally reviewed and interpreted this imaging study as follows: Imaging: X-Ray Radiologist's impression: no acute findings Lab Data Lab results reviewed: Yes I reviewed the patient's lab results. ECG Data Attestation: I personally reviewed and interpreted this ECG (s) as follows: Prior ECG tracings: available for review Interpretation: sinus rhythm, rate of 83, mild st depression in lateral leads 2nd ekg shows sinus rhtyhm, rate of 80, continued st depressions in the lateral leads HPI General Mode of arrival: ambulatory . Date/Time Provider Initiated Documentation: 01/26/19 15:47 . Limitations to Documentation: no limitations . Information obtained by: patient . History of Present Illness 68 year old M presents to the emergency department with the chief complaint of chest pain, described as mild, Quality is described as aching, and is localized to the chest. Patient reports no radiation. and it has been now resolved. other things that improve symptom(s), (laying flat) No exacerbating factors reported . Patient did receive the following treatments prior to arrival, none Related Data Home Medications Medication Instructions Recorded Confirmed adalimumab [Humira Pen 40 mg SQ 04/07/13 07/06/18 Hscr-Fagwqx-Yyyp HS] aspirin 81 mg PO DAILY AM 04/07/13 07/06/18 gabapentin 300 mg PO TID 04/07/13 07/06/18 gr-xit-btehn acid-lutein [Diabetes 1 ea PO DAILY AM 04/07/13 07/06/18 Health Formula] insulin aspart U-100 [Novolog 03/31/15 07/06/18 PenFill U-100 Insulin] insulin glargine [Lantus Solostar 50 unit SUB-Q HS 03/31/15 07/06/18 U-100 Insulin] lisinopril 10 mg PO DAILY tab-cap 03/31/15 07/06/18 omega-3 fatty acids-fish oil 1 ea PO 03/31/15 07/06/18 torsemide 20 mg PO DAILY #60 tab-cap 10/13/17 07/06/18 metformin 1,000 mg PO BID 05/22/18 07/06/18 liraglutide 0.6 mg/0.1 mL (18 mg/3 1.8 mg SUB-Q DAILY ml 07/06/18 07/06/18 mL) subcutaneous pen injector magnesium oxide 500 mg capsule 500 mg PO BID cap 07/06/18 07/06/18 spironolactone 50 mg tablet 50 mg PO DAILY 07/06/18 07/06/18 trazodone 50 mg tablet 50 mg PO DAILY 07/06/18 07/06/18 atorvastatin 80 mg tablet 80 mg PO DAILY #30 tab-cap 09/06/18 isosorbide mononitrate ER 30 mg 120 mg PO DAILY tab 11/09/18 tablet,extended release 24 hr metoprolol succinate ER 50 mg 50 mg PO DAILY #90 tab 12/05/18 tablet,extended release 24 hr Previous Rx's Medication Instructions Recorded torsemide 20 mg PO DAILY #60 tab-cap 10/13/17 atorvastatin 80 mg tablet 80 mg PO DAILY #30 tab-cap 09/06/18 metoprolol succinate ER 50 mg 50 mg PO DAILY #90 tab 12/05/18 tablet,extended release 24 hr Allergies Allergy/AdvReac Type Severity Reaction Status Date / Time shellfish derived Allergy Severe Hives Unverified 01/26/19 15:43 bee pollen Allergy Mild Anaphylaxsi Unverified 01/26/19 15:43 s methotrexate [Methotrexate] Allergy Unknown Unverified 01/26/19 15:43 General Stated Complaint: Chest Pain STEPHANIE: 2 Review of Systems Review of Systems All systems reviewed & are unremarkable except as noted in HPI and below Constitutional Denies chills, Denies fever(s) and Denies weakness Cardiovascular Denies dyspnea Respiratory Denies cough and Denies dyspnea Gastrointestinal Denies abdominal pain, Denies nausea and Denies vomiting Neurologic Denies weakness PFSH Social History Smoking/Tobacco Use Status: Former Tobacco Use Alcohol Intake: former Drug use: Never Do you feel safe at home: Yes Do you feel safe in your relationship?: Yes Exam Const General: no acute distress Orientation: alert HENMT Head: normal to inspection Ears: external ears normal General nose exam: external nose normal Mouth: moist mucous membranes Eyes General: appearance normal, both eyes and all related structures Neck Neck: normal visual inspection Resp Effort & Inspection: normal respiratory effort and able to speak in complete sentences Cardio Rate: regular rate Skin General skin exam: no rashes or lesions noted Neuro General: alert and oriented x3 Extrem General: normal to inspection Psych Mental Status: mental status grossly normal Course Vital Signs Temperature 37.1 C 01/26/19 15:37 Pulse 84 01/26/19 15:37 Respiratory Rate 14 01/26/19 15:37 Pulse Oximetry 96 01/26/19 15:37 Temperature 37.1 C 01/26/19 15:37 Pulse 84 01/26/19 15:37 Respiratory Rate 14 01/26/19 15:37 Respiratory Effort Non-Labored 01/26/19 15:40 Blood Pressure Position Sitting 01/26/19 15:37 Pulse Oximetry 96 01/26/19 15:37 Oxygen Delivery Method Room Air 01/26/19 15:37 Oxygen Flow Rate 0 01/26/19 15:37 Pain Level 0 01/26/19 15:37 Critical Care Time Critical Care Time: Yes Total Critical Care Time: 60 (minutes) Attestation: time spent performing lab review, ecg review, frequent reassements in patient with nstemi and potential to deteriorate at any time
[2019-01-26 16:11] LABS: Abs Immature Grans 0.07 k/cumm (0.0-0.09); Absolute Basophil Count 0.05 k/cumm (0.0-0.2); Absolute Eosinophil Count 0.33 k/cumm (0.0-0.7); Absolute Lymphocyte Count 3.94 k/cumm (1.2-3.4); Absolute Monocyte Count 0.95 k/cumm (0.11-0.7); Absolute Neutrophil Count 6.09 k/cumm (1.2-6.7); Basophils % 0.4; Eosinophils % 2.9; HCT 38.9 % (40.0-50.0); HGB 13.2 g/dL (13.5-17.5); Immature Grans % 0.6; Lymphocytes % 34.5; Mean Corp. HGB Concentration 33.9 g/dL (32.0-36.0); Mean Corpuscular Hemoglobin 30.2 pg (27.0-33.0); Mean Platelet Volume 11.6 fL (8.0-11.0); Monocytes % 8.3; Neutrophils % 53.3; Platelet Count 182 x1000/uL (130-400); RBC 4.37 m/cumm (4.50-6.00); RBC Distribution Width 13.6 % (11.8-14.1); White Blood Cell Count 11.42 k/cumm (4.4-10.8)
[2019-01-26 16:23] LABS: PTT Activated 18.8 sec (21.0-31.4)
[2019-01-26 16:28] LABS: ALT 51 U/L (12-78); AST 36 U/L (15-37); Alkaline Phosphatase 54 U/L (46-116); Anion Gap 9.6 mmol/L (3-11); BUN 22 mg/dL (7-18); Bilirubin, Total 0.5 mg/dL (0.2-1.0); CO2 27.4 mmol/L (21.0-32.0); CREATININE 1.14 mg/dL (0.70-1.30); Calcium 9.5 mg/dL (8.5-10.1); Chloride 104 mmol/L (98-107); Glucose 208 mg/dL (70-100); Potassium 5.3 mmol/L (3.5-5.1); Sodium 141 mmol/L (136-145); Total Protein 7.7 g/dL (6.4-8.2)
[2019-01-26 16:32] LABS: Troponin I 0.14 ng/mL (0.00-0.06)
--- NOTE | 2019-01-26 16:35 | DI.RAD_ITS ---
SYMPTOM/DIAGNOSIS: CHEST PAIN PORTABLE CHEST: Comparison is made with 20 Jun 2018. The heart size is within normal limits for projection. A lead overlies the chest. The lungs are suboptimally inflated. No focal infiltrate, effusion or pulmonary edema is seen. IMPRESSION: No acute abnormality
[2019-01-26] MEDS: Aspirin 81 MG CHEW 324 MG CH (16:50)
--- NOTE | 2019-01-26 17:00 | DI.VRAD_ITS ---
EXAM: XR Chest, 1 View EXAM DATE/TIME: 01/26/2019 4:36 PM CLINICAL HISTORY: 68 years old, male; Chest pain; Type not specified TECHNIQUE: Imaging protocol: XR of the chest, 1 view. COMPARISON: CR XR CHEST 2V PA LATERAL 06/20/2018 9:55 AM FINDINGS: Lungs: There is minimal scarring in the lungs. There is no acute consolidation or identifiable mass. Pleural space: Unremarkable. No pleural effusion. No pneumothorax. Heart/Mediastinum: Unremarkable. No cardiomegaly. Bones/joints: Unremarkable. IMPRESSION: No acute cardiopulmonary process. Dictated and Authenticated by: Luis Felipe Mujica MD. Ordering:RABIA Briscoe MD
[2019-01-26] MEDS: Clopidogrel 300 MG TAB PO (17:24)
== END 2019-01-26 19:38 | disposition short-term general hospital (02) ==
PROVIDERS: Emergency Provider Emergency Medicine; PCP Family Medicine
DX: I21.4 Non-ST elevation (NSTEMI) myocardial infarction (principal); I10 Essential (primary) hypertension; I25.10 Atherosclerotic heart disease of native coronary artery without angina pectoris; E11.9 Type 2 diabetes mellitus without complications
CPT/HCPCS: 36415; 80053; 93005; 96365; 99291; 71045; 84484; 85025; 85610; 85730; 93010

== ENCOUNTER 2019-02-05 14:10 | Outpatient (RCR) | payer SELFPAY | END 2019-03-07 23:59 | disposition home or self-care (01) | LOC: CR 14:10 | PROVIDERS: PCP Family Medicine; Visit Provider Family Medicine | DX: Z51.89 Encounter for other specified aftercare (principal) ==

== ENCOUNTER 2019-02-14 14:21 | Outpatient (CLI) | payer MEDICARE, SELFPAY ==
[2019-02-14 16:02] LABS: Anion Gap 14.3 mmol/L (3-11); BUN 16 mg/dL (7-18); CO2 23.7 mmol/L (21.0-32.0); CREATININE 1.03 mg/dL (0.70-1.30); Calcium 8.6 mg/dL (8.5-10.1); Chloride 101 mmol/L (98-107); Glucose 148 mg/dL (70-100); Potassium 4.6 mmol/L (3.5-5.1); Sodium 139 mmol/L (136-145)
== END 2019-02-14 14:41 ==
PROVIDERS: PCP Family Medicine; Visit Provider Family Medicine
DX: I50.9 Heart failure, unspecified (principal)
CPT/HCPCS: 36415; 80048

== ENCOUNTER → 2019-03-16 08:50 | Outpatient (BNVA) | payer MEDICARE, SELFPAY | PROVIDERS: PCP Family Medicine; Visit Provider Internal Medicine Cardiovascular Disease | DX: I25.10 Atherosclerotic heart disease of native coronary artery without angina pectoris (principal); Z95.1 Presence of aortocoronary bypass graft; I25.5 Ischemic cardiomyopathy; I10 Essential (primary) hypertension; E78.5 Hyperlipidemia, unspecified | CPT/HCPCS: 99214 ==

== ENCOUNTER 2019-04-02 10:00 | Outpatient (RCR) | payer MEDICARE, SELFPAY | END 2019-04-07 23:59 | disposition home or self-care (01) | LOC: CR 10:00 | PROVIDERS: PCP Family Medicine; Visit Provider Family Medicine | DX: Z51.89 Encounter for other specified aftercare (principal); Z95.1 Presence of aortocoronary bypass graft | CPT/HCPCS: S9472 ==

== ENCOUNTER 2019-05-07 10:00 | Outpatient (RCR) | payer MEDICARE, SELFPAY | END 2019-05-07 23:59 | disposition home or self-care (01) | LOC: CR 10:00 | PROVIDERS: PCP Family Medicine; Visit Provider Family Medicine | DX: Z51.89 Encounter for other specified aftercare (principal); Z95.1 Presence of aortocoronary bypass graft | CPT/HCPCS: S9472 ==

== ENCOUNTER → 2019-05-10 12:49 | Outpatient (BNVA) | payer MEDICARE, SELFPAY | PROVIDERS: PCP Family Medicine; Referring Provider Family Medicine; Visit Provider Internal Medicine Cardiovascular Disease | DX: I25.5 Ischemic cardiomyopathy (principal); Z95.1 Presence of aortocoronary bypass graft; E78.5 Hyperlipidemia, unspecified; I10 Essential (primary) hypertension; E11.9 Type 2 diabetes mellitus without complications; Z79.4 Long term (current) use of insulin | CPT/HCPCS: 99204; 99215 ==

== ENCOUNTER 2019-06-06 11:42 | Outpatient (RCR) | payer MEDICARE, SELFPAY | END 2019-06-07 23:59 | disposition home or self-care (01) | LOC: CR 11:42 | PROVIDERS: PCP Family Medicine; Visit Provider Family Medicine | DX: Z95.1 Presence of aortocoronary bypass graft (principal); Z51.89 Encounter for other specified aftercare | CPT/HCPCS: S9472 ==

== ENCOUNTER 2019-07-04 11:31 | Outpatient (RCR) | payer MEDICARE, SELFPAY ==
--- NOTE | 2019-06-11 15:02 | COCO.CNN ---
Primary Reason for Visit Insurance Referral to Care Coordination Referral to Care Coordination: Yes Type: CoA Referral to Services: Yes Where and Who: chronic pain class - Referral From Referral From: Self Care Plan - Plan of Care Assessment/Background: Patient walked into [employer] [facility] [employer] for supports with insurance paperwork he received in the mail. Paperwork was Medicare/part D related. CHW and patient called [facility] and left a voicemail with Yasir for insurance supports. CHW notified shashi elsi that patient will be signing up and attended the next chronic pain class. Plan of Care: Patient plans to attend chronic pain class and connect with [facility]. [facility] Self Management Plan Complete?: Yes Self Management Goals: wellness/insurance Confidence Level (enter 1-10): 10 Action Plan/Progress: Patient plans to attend chronic pain class and connect with [facility].
== END 2019-07-07 23:59 | disposition home or self-care (01) ==
LOC: CR 11:31
PROVIDERS: PCP Family Medicine; Visit Provider Family Medicine
DX: Z95.1 Presence of aortocoronary bypass graft (principal); Z51.89 Encounter for other specified aftercare
CPT/HCPCS: S9472

== ENCOUNTER 2019-07-13 13:29 | Outpatient (RCR) | payer MEDICARE, SELFPAY | END 2019-08-07 23:59 | disposition home or self-care (01) | LOC: CR 13:29 | PROVIDERS: PCP Family Medicine; Visit Provider Family Medicine | DX: Z95.1 Presence of aortocoronary bypass graft (principal); Z51.89 Encounter for other specified aftercare | CPT/HCPCS: S9472 ==

== ENCOUNTER → 2019-07-20 09:38 | Outpatient (BNVA) | payer MEDICARE, SELFPAY | PROVIDERS: PCP Family Medicine; Referring Provider Family Medicine; Visit Provider Internal Medicine Cardiovascular Disease | DX: I25.10 Atherosclerotic heart disease of native coronary artery without angina pectoris (principal); Z95.1 Presence of aortocoronary bypass graft; E78.5 Hyperlipidemia, unspecified; I10 Essential (primary) hypertension; I25.5 Ischemic cardiomyopathy | CPT/HCPCS: 99214 ==

== ENCOUNTER 2019-08-22 12:52 | Outpatient (REF) | payer MEDICARE, SELFPAY ==
[2019-08-22 19:28] LABS: HCT 39.5 % (40.0-50.0); HGB 13.4 g/dL (13.5-17.5); Mean Corp. HGB Concentration 33.9 g/dL (32.0-36.0); Mean Corpuscular Volume 88.6 fL (80-95); Platelet Count 267 x1000/uL (130-400); RBC 4.46 m/cumm (4.50-6.00); RBC Distribution Width 14.8 % (11.8-14.1)
[2019-08-22 19:37] LABS: ALT 42 U/L (16-63); AST 28 U/L (15-37); Alkaline Phosphatase 52 U/L (46-116); Anion Gap 10.7 mmol/L (3-11); BUN 18 mg/dL (7-18); Bilirubin, Total 0.6 mg/dL (0.2-1.0); CO2 25.3 mmol/L (21.0-32.0); Calcium 9.4 mg/dL (8.5-10.1); Chloride 105 mmol/L (98-107); Glucose 119 mg/dL (74-106); Magnesium 1.4 mg/dL (1.8-2.4); Potassium 4.3 mmol/L (3.5-5.1); Sodium 141 mmol/L (136-145); Total Protein 7.3 g/dL (6.4-8.2)
== END 2019-08-22 13:12 ==
LOC: NCHCN 12:52
PROVIDERS: PCP Family Medicine; Visit Provider Family Medicine
DX: R10.11 Right upper quadrant pain (principal); E83.42 Hypomagnesemia
CPT/HCPCS: 80053; 85027; 83735

== ENCOUNTER 2019-09-06 10:00 | Outpatient (RCR) | payer SELFPAY ==
--- NOTE | 2019-08-20 13:25 | PR3E_ITS ---
69 year old male who started the Cardiac Rehab maintenance phase after completing the Phase 2 program for CABG in January 2019. PMH: HTN, HLD, ASCVD, ischemic cardiomyopathy, NSTEMI, mitral regurgitation, DM type 2, exertional angina First day of maintenance program was 08/14/19- Resting BP 142/71, HR 80 bpm. Weight 285 lbs.Tolerated 45 minutes of exercise on the treadmill, NuStep and UBE. HR w/ exercise ranged 94-99bpm. JAYDA RPE ratings appropriate at 10-11 per activity. Mr. Gan plans to continue exercising regularly with our program, two days per week at 10am. We will continue to monitor, guide, and progress him as tolerated.
== END 2019-09-07 23:59 | disposition home or self-care (01) ==
LOC: CR 10:00
PROVIDERS: PCP Family Medicine; Visit Provider Family Medicine
DX: Z95.1 Presence of aortocoronary bypass graft (principal); Z51.89 Encounter for other specified aftercare

== ENCOUNTER 2019-10-04 10:00 | Outpatient (RCR) | payer SELFPAY | END 2019-10-06 23:59 | disposition home or self-care (01) | LOC: CR 10:00 | PROVIDERS: PCP Family Medicine; Visit Provider Family Medicine | DX: Z95.1 Presence of aortocoronary bypass graft (principal); Z51.89 Encounter for other specified aftercare ==

== ENCOUNTER 2019-10-07 03:45 | Outpatient (RCR) | payer SELFPAY | END 2019-11-06 23:59 | disposition home or self-care (01) | LOC: CR 03:45 | PROVIDERS: PCP Family Medicine; Visit Provider Family Medicine | DX: Z95.1 Presence of aortocoronary bypass graft (principal); Z51.89 Encounter for other specified aftercare ==

== ENCOUNTER → 2019-11-13 11:37 | Outpatient (BNVA) | payer MEDICARE, SELFPAY | PROVIDERS: PCP Family Medicine; Referring Provider Family Medicine; Visit Provider Internal Medicine Cardiovascular Disease | DX: Z95.1 Presence of aortocoronary bypass graft (principal); I25.5 Ischemic cardiomyopathy; I25.10 Atherosclerotic heart disease of native coronary artery without angina pectoris; I10 Essential (primary) hypertension | CPT/HCPCS: 99442; 99213 ==

== ENCOUNTER 2020-04-23 10:46 | Outpatient (REF) | payer MEDICARE, SELFPAY ==
[2020-04-23 20:01] LABS: HCT 45.4 % (40.0-50.0); HGB 14.9 g/dL (13.5-17.5); MCH 29.4 pg (27.0-33.0); MCHC 32.8 % (32.0-36.0); MCV 89.7 fL (80-95); MPV 11.6 fL (8.0-11.0); Platelet Count 256 10^3/uL (130-400); RBC 5.06 10^6/uL (4.36-5.78); RDW 14.3 % (11.8-14.1); RDW-SD 45.6 fL; WBC 11.81 10^3/uL (4.4-10.8)
[2020-04-23 20:12] LABS: ALT 58 U/L (16-63); AST 30 U/L (15-37); Albumin 4.1 g/dL (3.4-5.0); Alkaline Phosphatase 52 U/L (46-116); Anion Gap 13.2 mmol/L (3-11); BUN 23 mg/dL (7-18); Bilirubin, Total 0.5 mg/dL (0.2-1.0); CO2 24.8 mmol/L (21.0-32.0); CREATININE 1.07 mg/dL (0.70-1.30); Calcium 9.9 mg/dL (8.5-10.1); Chloride 101 mmol/L (98-107); Glucose 198 mg/dL (74-106); Magnesium 1.9 mg/dL (1.8-2.4); Potassium 4.3 mmol/L (3.5-5.1); Sodium 139 mmol/L (136-145); Total Protein 7.3 g/dL (6.4-8.2)
== END 2020-04-23 11:06 ==
LOC: NCHCN 10:46
PROVIDERS: PCP Family Medicine; Visit Provider Family Medicine
DX: E83.42 Hypomagnesemia (principal); R42 Dizziness and giddiness
CPT/HCPCS: 80053; 85027; 83735

== ENCOUNTER → 2020-05-16 09:35 | Outpatient (BNVA) | payer MEDICARE, SELFPAY | PROVIDERS: PCP Family Medicine; Referring Provider Family Medicine; Visit Provider Internal Medicine Cardiovascular Disease | DX: I25.5 Ischemic cardiomyopathy (principal); I25.10 Atherosclerotic heart disease of native coronary artery without angina pectoris; Z95.1 Presence of aortocoronary bypass graft; E78.5 Hyperlipidemia, unspecified; I10 Essential (primary) hypertension; E11.9 Type 2 diabetes mellitus without complications; Z79.4 Long term (current) use of insulin | CPT/HCPCS: 99214 ==

== ENCOUNTER 2021-02-03 13:00 | Outpatient (RCR) | payer SELFPAY ==
[2021-01-06 13:00] VITALS: BP 126/74; PULSE 83
[2021-01-08 13:02] VITALS: BP 112/72; PULSE 87; O2SAT 94
[2021-01-13 13:05] VITALS: BP 146/62; PULSE 83
[2021-01-27 13:03] VITALS: BP 121/73; PULSE 83
[2021-02-03 13:03] VITALS: BP 117/74; PULSE 81
== END 2021-02-04 23:59 | disposition home or self-care (01) ==
LOC: CR 13:00
PROVIDERS: PCP Family Medicine; Visit Provider Family Medicine
DX: Z51.89 Encounter for other specified aftercare (principal)

== ENCOUNTER 2021-04-07 13:00 | Outpatient (RCR) | payer SELFPAY ==
[2021-03-08 00:25] VITALS: BP 122/64; PULSE 83
[2021-03-26 13:03] VITALS: BP 143/79; PULSE 78
[2021-04-02 12:58] VITALS: BP 109/70; PULSE 80
[2021-04-07 14:00] VITALS: BP 118/76; PULSE 88
== END 2021-04-07 23:59 | disposition home or self-care (01) ==
LOC: CR 13:00
PROVIDERS: PCP Family Medicine; Visit Provider Family Medicine

== ENCOUNTER 2021-04-21 13:00 | Outpatient (RCR) | payer SELFPAY ==
[2021-04-08 00:23] VITALS: BP 118/76; PULSE 88
[2021-04-09 13:10] VITALS: BP 112/73; PULSE 92
[2021-04-21 13:11] VITALS: BP 112/56; PULSE 83
== END 2021-05-07 23:59 | disposition home or self-care (01) ==
LOC: CR 13:00
PROVIDERS: PCP Family Medicine; Visit Provider Family Medicine
DX: Z51.89 Encounter for other specified aftercare (principal)

== ENCOUNTER 2021-04-29 22:02 | Outpatient (REF) | payer MEDICARE, SELFPAY ==
[2021-04-29 19:53] LABS: Anion Gap 10.9 mmol/L (3-11); BUN 16 mg/dL (7-18); CO2 26.1 mmol/L (21.0-32.0); CREATININE 0.9 mg/dL (0.70-1.30); Calcium 9.2 mg/dL (8.5-10.1); Calculated LDL 58 mg/dL (<100); Chloride 103 mmol/L (98-107); Cholesterol 138 mg/dL (<200); Glucose 173 mg/dL (74-106); HDL Cholesterol 40 mg/dL (40-60); Magnesium 2.2 mg/dL (1.8-2.4); Potassium 4.5 mmol/L (3.5-5.1); Sodium 140 mmol/L (136-145); Triglyceride 203 mg/dL (<150)
== END 2021-04-29 22:03 | disposition home or self-care (01) ==
LOC: NCHCN 22:02
PROVIDERS: PCP Family Medicine; Visit Provider Family Medicine
DX: E83.42 Hypomagnesemia (principal); E11.9 Type 2 diabetes mellitus without complications; E78.5 Hyperlipidemia, unspecified
CPT/HCPCS: 80048; 80061; 83735

== ENCOUNTER → 2021-05-21 12:56 | Outpatient (BNVA) | payer MEDICARE, SELFPAY | PROVIDERS: PCP Family Medicine; Referring Provider Family Medicine; Visit Provider Internal Medicine Cardiovascular Disease | DX: I25.5 Ischemic cardiomyopathy (principal); Z95.1 Presence of aortocoronary bypass graft; E78.5 Hyperlipidemia, unspecified; I10 Essential (primary) hypertension | CPT/HCPCS: 99214; 99213 ==

== ENCOUNTER 2022-04-05 09:39 | Inpatient (IN) | payer MEDICARE, MEDICAID, SELFPAY ==
[2022-04-05] VITALS (43 sets, daily range): BP systolic 77–134; BP diastolic 38–75; PULSE 58–95; RESP 9–28; TEMP 37.2–39.4; O2SAT 89–97
--- NOTE | 2022-04-05 10:18 | ED.GENADUL_ITS ---
Discharge Plan Disposition Patient Disposition: [facility] INPATIENT Condition: Poor Discharge Details Chief Complaint: Cellulitis Clinical Impression: Cellulitis of right foot, Non-healing wound of right heel, Sepsis Admit Date/Time: 04/05/22 13:44 Admit Provider: Bennett Zapata Attending Provider: Bennett Zapata Primary Care Provider: Taye Ron ED Provider: Delaney Smith Discharge Data Discharge Date/Time-TO BE ENTERED AT DEPARTURE: 04/05/22 14:48 Medical Decision Making Patient is a pleasant 72-year-old man past medical history pertinent for mitral regurgitation, type 2 diabetes insulin-dependent, atherosclerotic heart disease, rheumatoid arthritis, depression, hypertension, hyperlipidemia, obesity, sleep apnea, psoriasis, presenting with chief complaint of infection to the right lower extremity. Patient was evaluated by primary care who did contact us prior to his arrival. Concerned that patient has cellulitis of the right heel associate with chronic wound that is now tracking up the medial aspect of the right lower extremity to about the knee. States that 2 days ago he began having fevers, general malaise, poor appetite. He reports that despite his poor appetite he has been drinking large amount of fluids. Reports that hemoglobin A1c was 10 today. States that he is been having difficulty with ambulation associated with the pain in his heel. States the wound initially began several years ago, associated with previous surgical intervention for vein harvest. States that since then he has been having this chronic wound that intermittently has been infected. On exam, patient appears obese and acutely ill. Patient is breathing comfortably. He is hypertensive, tachycardic and febrile. He appears dry. Lungs are clear, normal cardiac exam. Exam of the right lower extremity significant for erythema, warmth and tenderness maximal over the heel medially but with a streak extending up just distal to the knee. No joint involvement at the knee. No significant swelling of the calf. He does have an old crack in the heel where this appears to be starting it but no purulent discharge or fl uctuance around this area. The remaining of the foot is without erythema, fluctuance. Concern for cellulitis and septicemia. Also consider potential osteomyelitis. Area of erythema marked. Will obtain x-ray of the right heel, begin the patient on broad-spectrum spectrum antibiotics, particular to cover Pseudomonas, obtain labs. Patient will likely need admission and will obtain rapid COVID testing for this. We will hydrate the patient and give ibuprofen for fever. Patient did take APAP prior to arrival. Contacted by the lab, patient's critical lactate of 3.2. Patients blood pressure appears to have been very labile. He is receiving a bolus now. BP cuff is not deflating appropriately, when I recheck the BP, his MAP is always >65 with an SBP in the 90-100s. He states he is feeling improved, does not have any symptoms of hypotension. Labs signficant for leukocytosis. XR reviewed by myself, I do not see evidence for osteomyelitis. Waiting for final read. No free air. Imaging and physical exam are not suggestive of necrotizing fasciitis. I am cocnerned for chronic wound, likely associated with poor vascular flow. No evidence of acute blockage of blood flow at this time. Discussed my concerns with [facility] patient. With his comorbidities and exent, as well as concern for septicemia, will admit patient. He agrees with this plan. Hospitalist accepts the patient for admission. HPI General Date/Time Provider Initiated Documentation: 04/05/22 10:18 . Limitations to Documentation: no limitations . Information obtained by: patient, RN/MD (contacted by PCP) and RN notes reviewed . History of Present Illness 72 year old M presents to the emergency department with the chief complaint of cellulitis RLE, described as severe (spreading proximally), with intensity rated at 8. Quality is described as aching, and is localized to the right and lower extremity. Patient proximal. Patient started experiencing this day(s) (acute on chronic infection) and it has been intermittent (has had infection from chronic wound of RLE for years). No relieving factors improve symptom(s), Patient notes fever/chills and loss of appetite; denies chest pain, cough, diaphoresis, nausea/vomiting and sh ortness of breath. Patient did receive the following treatments prior to arrival, none Related Data Home Medications Medication Instructions Recorded Confirmed aspirin 81 mg chewable tablet 81 mg PO DAILY AM 04/07/13 04/05/22 gabapentin 600 mg tablet 300 mg PO TID 04/07/13 04/05/22 multivit with min-folic 1 ea PO DAILY AM 04/07/13 04/05/22 acid-lutein 500 mcg-250 mcg tablet (Diabetes Health Formula) omega-3 fatty acids-fish oil 300 1 ea PO DAILY 03/31/15 04/05/22 mg-1,000 mg capsule metformin 1,000 mg tablet 1,000 mg PO BID 05/22/18 04/05/22 trazodone 50 mg tablet 50 mg PO DAILY 07/06/18 04/05/22 acetaminophen 500 mg tablet 500 mg PO Q6H PRN 01/26/19 04/05/22 liraglutide 0.6 mg/0.1 mL (18 mg/3 1.8 mg subcut DAILY 01/26/19 04/05/22 mL) subcutaneous pen injector (Punctil 2-Yousuf) cholecalciferol (vitamin D3) 25 1,000 unit PO DAILY 03/16/19 04/05/22 mcg (1,000 unit) capsule metoprolol succinate 25 mg 25 mg PO DAILY 90 days #90 tabs 03/16/19 04/05/22 tablet,extended release 24 hr adalimumab 40 mg/0.4 mL 40 mg subcut Q2W 05/10/19 04/05/22 subcutaneous syringe kit ([employer](CF)) insulin aspart U-100 100 unit/mL 35 unit subcut TID 05/10/19 04/05/22 subcutaneous cartridge (Novolog PenFill U-100 Insulin aspart) lisinopril 2.5 mg tablet 2.5 mg PO DAILY Blood Pressure #90 05/10/19 04/05/22 tabs magnesium oxide 500 mg tablet 500 mg PO DAILY 05/10/19 04/05/22 insulin detemir U-100 100 unit/mL 53 unit subcut QAM AND QHS 11/13/19 04/05/22 (3 mL) subcutaneous pen (Levemir FlexTouch U-100 Insulin) spironolactone 25 mg tablet 50 mg PO DAILY 11/13/19 04/05/22 atorvastatin 80 mg tablet 80 mg PO DAILY #90 tabs 11/26/19 04/05/22 nitroglycerin 0.3 mg sublingual 0.3 mg sublingual Q5M PRN chest 12/04/19 04/05/22 tablet pain #30 tabs furosemide 40 mg tablet 20 mg PO DAILY 05/21/21 04/05/22 Previous Rx's Medication Instructions Recorded metoprolol succinate 25 mg 25 mg PO DAILY 90 days #90 tabs 03/16/19 tablet,extended release 24 hr lisinopril 2.5 mg tablet 2.5 mg PO DAILY Blood Pressure #90 05/10/19 tabs atorvastatin 80 mg tablet 80 mg PO DAILY #90 tabs 11/26/19 nitroglycerin 0.3 mg sublingual 0.3 mg sublingual Q5M PRN chest 12/04/19 tablet pain #30 tabs Allergies Allergy/AdvReac Type Severity Reaction Status Date / Time shellfish derived Allergy Severe Hives Verified 04/05/22 09:57 bee pollen Allergy Mild Anaphylaxsi Verified 04/05/22 09:57 s methotrexate [Methotrexate] Allergy Unknown Verified 04/05/22 09:57 General Stated Complaint: Cellulitis STEPHANIE: 2 Review of Systems Constitutional Constitutional: Reports as per HPI, Reports chills, Reports fever(s), Reports lethargy, Reports malaise and Reports poor appetite Cardiovascular Cardiovascular: Denies chest pain, Denies chest pain at rest, Denies chest pain with activity, Denies pedal edema, Denies edema, Denies lightheadedness, Denies dyspnea and Denies dyspnea on exertion Respiratory Respiratory: Denies chest congestion, Denies cough, Denies dyspnea and Denies dyspnea on exertion Gastrointestinal Gastrointestinal: Reports as per HPI Musculoskeletal Musculoskeletal: Reports as per HPI Integumentary/Breasts Skin/Breast: Reports as per HPI Neurologic Neurologic: Reports as per HPI, Denies sensory deficit and Denies paresthesias PFSH All Active Problems (Updated 04/09/22 @ 08:19 by DO Turner) Sepsis (Acute) DVT prophylaxis (Acute) Discharge planning issues (Acute) Non-healing wound of right heel (Acute) Cellulitis of right foot (Acute) S/P CABG x 3 (Acute ~01/31/19) Dyslipidemia (Acute) Hypertension (Chronic) Ischemic cardiomyopathy (Acute) CAD (coronary artery disease) (Chronic) Tubular adenoma (Acute 05/12/15) Medical History (Updated 04/09/22 @ 08:19 by DO Turner) 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, insulin dependent Mitral regurgitation Social History Smoking/Tobacco Use Status: Former Tobacco Use Quit Date: 08/08/95 Pack-years: 60 Tobacco: How many years used: 30 Smoking risk assessment performed?: Yes Alcohol Intake: former Drug use: Never Substance use type: does not use Housing: apartment current occupation: retired Do you feel safe at home: Yes Do you feel safe in your relationship?: Yes Exam Const General: cooperative, comfortable, no acute distress, well developed and ill appearing acutely Nutritional Appearance: well nourished and obese Orientation: alert and awake [facility] Head: normal to inspection Neck Neck: normal visual inspection, no lymphadenopathy and no meningeal signs Resp Effort & Inspection: normal respiratory effort, able to speak in complete sentences and no respiratory distress Auscultation: clear to auscultation bilaterally Cardio Rate: tachycardic Rhythm: regular rhythm Heart Sounds: S1 normal and S2 normal Skin General skin exam: erythema Neuro General: patient alert and patient awake Cognition: normal cognition Speech: speech normal Gait: normal gait Sensory Exam: no sensory deficits noted Extrem Ankle/foot/toe images: 1. Area of erythema and tenderness. No area of fluctuance, induration. Intact capillary refill, intact sensation. 1.5cm linear crack in mal[place] skin over the heel, no purulent discharge or fluctuance at this area. This is not circumferential. Streaking up toward the knee, ends below the joint. Psych Appearance: grossly normal and well kempt Mental Status: mental status grossly normal Speech and Movement: speech and movement normal Course Vital Signs Vital signs: Vital Signs Temperature 39.1 C H 04/05/22 09:53 Pulse 95 H 04/05/22 09:53 Respiratory Rate 16 04/05/22 09:53 Blood Pressure 106/43 L 04/05/22 09:53 Pulse Oximetry 95 04/05/22 09:53 Temperature 39.1 C H 04/05/22 09:53 Pulse 95 H 04/05/22 09:53 Respiratory Rate 16 04/05/22 09:53 Respiratory Effort 04/05/22 09:57 Blood Pressure 106/43 L 04/05/22 09:53 Blood Pressure Position Sitting 04/05/22 09:53 Pulse Oximetry 95 04/05/22 09:53 Oxygen Delivery Method Room Air 04/05/22 09:53 Oxygen Flow Rate 0 04/05/22 09:53 Pain Level 10 04/05/22 09:53
--- NOTE | 2022-04-05 10:35 | DI.RAD_ITS ---
Exam(s) XR HEEL RT OS CALCIS EXAM: XR HEEL RT OS CALCIS CLINICAL HISTORY: ?osteo, chronic wound with cellulitis. TECHNIQUE: 2D digital imaging was performed. Two views were obtained. COMPARISON: No exams were available for comparison FINDINGS: BONES: No acute fracture is present. No bony destructive lesion is seen. There is an enthesophyte at the posterior superior calcaneus. There is a small plantar calcaneal spur. JOINTS: No dislocation present. SOFT TISSUE: Atherosclerosis is present. No air is seen in the soft tissues. IMPRESSION: No radiographic evidence to suggest osteomyelitis. DATA REPOSITORY: RADIATION DOSE DELIVERED:
[2022-04-05 10:58] LABS: Source Nasal/Nares
[2022-04-05 11:01] LABS: Abs Immature Grans 0.11 10^3/uL (0.0-0.06); Absolute Basophil Count 0.06 10^3/uL (0.0-0.2); Absolute Eosinophil Count 0.36 10^3/uL (0.0-0.7); Basophils % 0.4; Eosinophils % 2.3; HGB 13.4 g/dL (13.5-17.5); Immature Grans % 0.7; Lymphocytes % 6.5; MCH 30.1 pg (27.0-33.0); MCHC 33.5 % (32.0-36.0); MCV 90 fL (80-95); MPV 10.9 fL (8.0-11.0); Monocytes % 9.6; Neutrophils % 80.5; Platelet Count 179 10^3/uL (130-400); RBC 4.45 10^6/uL (4.36-5.78); RDW 14.1 % (11.8-14.1); RDW-SD 46.2 fL; WBC 15.79 10^3/uL (4.4-10.8)
[2022-04-05 11:02] LABS: Lactate 3.2 mmol/L (0.6-1.4)
[2022-04-05] MEDS: Ibuprofen 600 MG TAB PO (11:02)
[2022-04-05] MEDS: Normal Saline 1,000 ML 500 ML IV (11:02)
[2022-04-05] MEDS: CEFEPIME 2 GM in Normal Saline 100 ML IVPB ×2 (11:02→17:27)
[2022-04-05 11:03] LABS: Absolute Lymphocyte Count 1.03 10^3/uL (1.2-3.4); Absolute Monocyte Count 1.52 10^3/uL (0.1-0.8); Absolute Neutrophil Count 12.71 10^3/uL (1.2-6.7)
[2022-04-05 11:22] LABS: ALT 34 U/L (16-63); AST 21 U/L (15-37); Alkaline Phosphatase 50 U/L (46-116); Anion Gap 13.4 mmol/L (3-11); BUN 16 mg/dL (7-18); CO2 22.6 mmol/L (21.0-32.0); CREATININE 1.2 mg/dL (0.70-1.30); Chloride 98 mmol/L (98-107); Estimated GFR 59.86 (mL/min/1.73m2); Glucose 246 mg/dL (74-106); Magnesium 1.9 mg/dL (1.8-2.4); Potassium 3.8 mmol/L (3.5-5.1); Sodium 134 mmol/L (136-145); Total Protein 7.3 g/dL (6.4-8.2)
[2022-04-05 11:30] LABS: COVID-19 PCR Negative (Negative)
[2022-04-05 11:33] LABS: Procalcitonin 0.3 ng/mL
[2022-04-05 11:36] LABS: Diff Comment Agrees w/ Instrument; RBC Morphology Normal
[2022-04-05] MEDS: VANCOMYCIN/WATER (PEG) 2 GM/400 ML BAG IVPB (11:36)
[2022-04-05 16:49] LABS: Bilirubin Negative (Negative); Blood Negative (Negative); Clarity Clear (Clear); Glucose 500 mg/dL (Negative); Ketones Negative (Negative); Leukocyte Esterase Negative (Negative); Nitrite Negative (Negative); Specific Gravity 1.015 (1.005-1.025); Urobilinogen 0.2 EU/dL (Up TO 0.2); pH 5.5 (5-8)
[2022-04-05] MEDS: Insulin Aspart 300 UNITS/3 ML PEN 35 UNITS SC (17:26)
[2022-04-05] MEDS: metFORMIN 500 MG TAB 1000 MG PO (17:27)
--- NOTE | 2022-04-05 18:12 | HPE_ITS ---
Date of service: 04/05/22 Time of Service: 18:13 Assessment and Plan Assessment and plan (1) CAD (coronary artery disease): Status: Chronic Assessment and plan: H/O CAGB and ischemic cardiomyopathy. No current CP, SOA. Cont ASA, BB, Statin. Qualifiers: Coronary Disease-Associated Artery/Lesion type: [place] artery [place] vs. transplanted heart: [place] heart Associated angina: without angina Qualified Code(s): I25.10 - Atherosclerotic heart disease of [place] coronary artery without angina pectoris (2) Diabetes mellitus type 2, insulin dependent: Assessment and plan: He did not receive insulin at noon meal while in the ED. ACHS glucose monitoring. Lantus 30 units BID (decreased from 53 units BID usual dosing). Cont Aspart insulin 35 units TID with meals as per home dosing. SS insulin moderate dosing. Adjust as needed. CHO controlled diet. (3) Dyslipidemia: Status: Acute Assessment and plan: Cont atorvastatin. (4) Cellulitis of right foot: Status: Acute Assessment and plan: Cont cefepime and vancomycin. MRSA screen. Monitor CBC. History of Present Illness History of Present Illness Chief Complaint: Infection in right lower extremity. Narrative: This is a 72 yo male with a PMH of DM2 on insulin, CAD/h/o CABG, RA, psoriasis, HTN, HLD, obesity, mitral regurgitation. He c/o redness in the right foot up to his knee. He was evaluated by his PCP and then sent to the ED. He has a chronic R heel wound that originated several years ago after a previous vein harvest in the right leg. This heel wound has been intermittently infected. He describes pain in both feet; worse in right heel area. Pain with wt bearing on the right foot. In the ED his WBC count was elevated at 15.79. Xray of the heel showed no evidence of osteomyelitis. His temperature was 39.1. Lactate 3.2. Cefepime and vancomycin initiated. Review of Systems All systems reviewed & are unremarkable except as noted in HPI and below PFSH All Active Problems (Updated 04/05/22 @ 19:55 by Bennett Zapata MD) Cellulitis of right foot (Acute) S/P CABG x 3 (Acute ~01/31/19) Dyslipidemia (Acute) Hypertension (Chronic) Ischemic cardiomyopathy (Acute) CAD (coronary artery disease) (Chronic) Tubular adenoma (Acute 05/12/15) Medical History (Updated 04/05/22 @ 19:55 by Bennett Zapata MD) 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, insulin dependent Mitral regurgitation Social History Smoking/Tobacco Use Status: Former Tobacco Use Quit Date: 08/08/95 Pack-years: 60 Tobacco: How many years used: 30 Smoking risk assessment performed?: Yes Alcohol Intake: former Drug use: Never Substance use type: does not use Housing: apartment current occupation: retired Do you feel safe at home: Yes Do you feel safe in your relationship?: Yes Meds Allergies and Home Medications Allergies Allergy/AdvReac Type Severity Reaction Status Date / Time shellfish derived Allergy Severe Hives Verified 04/05/22 09:57 bee pollen Allergy Mild Anaphylaxsi Verified 04/05/22 09:57 s methotrexate [Methotrexate] Allergy Unknown Verified 04/05/22 09:57 Home Medications Medication Instructions Recorded Confirmed Type aspirin 81 mg chewable tablet 81 mg PO DAILY AM 04/07/13 04/05/22 History gabapentin 600 mg tablet 300 mg PO TID 04/07/13 04/05/22 History multivit with min-folic 1 ea PO DAILY AM 04/07/13 04/05/22 History acid-lutein 500 mcg-250 mcg tablet (Diabetes Health Formula) omega-3 fatty acids-fish oil 300 1 ea PO DAILY 03/31/15 04/05/22 History mg-1,000 mg capsule metformin 1,000 mg tablet 1,000 mg PO BID 05/22/18 04/05/22 History trazodone 50 mg tablet 50 mg PO DAILY 07/06/18 04/05/22 History acetaminophen 500 mg tablet 500 mg PO Q6H PRN 01/26/19 04/05/22 History liraglutide 0.6 mg/0.1 mL (18 mg/3 1.8 mg subcut DAILY 01/26/19 04/05/22 History mL) subcutaneous pen injector (Victoza 2-Yousuf) cholecalciferol (vitamin D3) 25 1,000 unit PO DAILY 03/16/19 04/05/22 History mcg (1,000 unit) capsule metoprolol succinate 25 mg 25 mg PO DAILY 90 days #90 tabs 03/16/19 04/05/22 Rx tablet,extended release 24 hr adalimumab 40 mg/0.4 mL 40 mg subcut Q2W 05/10/19 04/05/22 History subcutaneous syringe kit (Humira(CF)) insulin aspart U-100 100 unit/mL 35 unit subcut TID 05/10/19 04/05/22 History subcutaneous cartridge (Novolog PenFill U-100 Insulin aspart) lisinopril 2.5 mg tablet 2.5 mg PO DAILY Blood Pressure #90 05/10/19 04/05/22 Rx tabs magnesium oxide 500 mg tablet 500 mg PO DAILY 05/10/19 04/05/22 History insulin detemir U-100 100 unit/mL 53 unit subcut QAM AND QHS 11/13/19 04/05/22 History (3 mL) subcutaneous pen (Levemir FlexTouch U-100 Insulin) spironolactone 25 mg tablet 50 mg PO DAILY 11/13/19 04/05/22 History atorvastatin 80 mg tablet 80 mg PO DAILY #90 tabs 11/26/19 04/05/22 Rx nitroglycerin 0.3 mg sublingual 0.3 mg sublingual Q5M PRN chest 12/04/1904/05 Rx tablet pain #30 tabs furosemide 40 mg tablet 20 mg PO DAILY 05/21/21 04/05/22 History Exam Narrative Exam Narrative: Lying in bed with right leg dangling off bed. Pleasant. Conversant. Const General: cooperative and no acute distress Nutritional Appearance: obese Orientation: alert and oriented x3 Eyes General: appearance normal, both eyes and all related structures Sclera: sclerae normal EOM: no movement deficit Neck Neck: normal visual inspection and no JVD Resp Effort & Inspection: normal respiratory effort Auscultation: clear to auscultation bilaterally Cardio Rate: regular rate Rhythm: regular rhythm Heart Sounds: S1 normal and S2 normal GI Inspection: obesity Palpation: soft and nontender Auscultation: normal bowel sounds Skin General skin exam: dry skin and erythema (right heel erythema extended medially to knee. ) Lesions: lesion noted (thickened, crack skin at right heel. No ulceration. No drainage. ) Neuro General: no focal motor deficits Cranial Nerves: facial strength normal Speech: speech normal Extrem General: no calf tenderness and edema (nonpitting) Psych Appearance: grossly normal Mental Status: mental status grossly normal Speech and Movement: speech and movement normal Affect: normal affect Results Labs Result diagrams: 04/05/22 10:10 04/05/22 18:45 Labs: Laboratory Results - last 24 hr 04/05/22 04/05/22 04/05/22 10:10 10:10 10:50 WBC 15.79 H RBC 4.45 Hgb 13.4 L Hct 40.0 MCV 90 MCH 30.1 MCHC 33.5 RDW 14.1 Plt Count 179 MPV 10.9 Immature Gran % 0.7 Neutrophils % 80.5 Lymphocytes % 6.5 Monocytes % 9.6 Eosinophils % 2.3 Basophils % 0.4 Nucleated RBC % 0.0 Absolute Neutrophils 12.71 H Absolute Lymphocytes 1.03 L Absolute Monocytes 1.52 H Absolute Eosinophils 0.36 Absolute Basophils 0.06 RBC Morphology Normal VBG Lactate Cancelled Sodium 134 L Potassium 3.8 Chloride 98 Carbon Dioxide 22.6 Anion Gap 13.4 H BUN 16 Creatinine 1.2 Estimated GFR/1.73 m2 59.86 Glucose 246 H Calcium 8.0 L Magnesium 1.9 Total Bilirubin 1.0 AST 21 ALT 34 Alkaline Phosphatase 50 Total Protein 7.3 Albumin 3.0 L Procalcitonin Urine Color Urine Clarity Urine pH Ur Specific [place] Urine Protein Urine Ketones Urine Blood Urine Nitrite Urine Bilirubin Urine Urobilinogen Ur Leukocyte Esterase Urine Glucose COVID-19 Source SARS-CoV-2 (PCR) 04/05/22 04/05/22 04/05/22 10:50 10:53 16:35 WBC RBC Hgb Hct MCV MCH MCHC RDW Plt Count MPV Immature Gran % Neutrophils % Lymphocytes % Monocytes % Eosinophils % Basophils % Nucleated RBC % Absolute Neutrophils Absolute Lymphocytes Absolute Monocytes Absolute Eosinophils Absolute Basophils RBC Morphology VBG Lactate 3.2 H* Sodium Potassium Chloride Carbon Dioxide Anion Gap BUN Creatinine Estimated GFR/1.73 m2 Glucose Calcium Magnesium Total Bilirubin AST ALT Alkaline Phosphatase Total Protein Albumin Procalcitonin 0.3 Urine Color Yellow Urine Clarity Clear Urine pH 5.5 Ur Specific [place] 1.015 Urine Protein Negative Urine Ketones Negative Urine Blood Negative Urine Nitrite Negative Urine Bilirubin Negative Urine Urobilinogen 0.2 Ur Leukocyte Esterase Negative Urine Glucose 500 H COVID-19 Source Nasal/Nares SARS-CoV-2 (PCR) Negative Last Vital Signs Temp 37.2 C 04/05/22 15:16 Pulse 74 04/05/22 15:16 Resp 21 08/29/22 15:16 BP 112/60 04/05/22 15:16 Pulse Ox 95 04/05/22 15:16
[2022-04-05 18:57] LABS: Lactate 1.9 mmol/L (0.6-1.4)
[2022-04-05 19:24] LABS: Glucose 148 mg/dL (74-106)
[2022-04-05] MEDS: Ketorolac 30 MG/ML VIAL IVP (19:41)
[2022-04-05] MEDS: Acetaminophen 325 MG TAB PO (19:46)
[2022-04-05] MEDS: Normal Saline Flush 10 ML SYR IVP ×2 (19:46→23:40)
[2022-04-05] MEDS: Gabapentin 300 MG CAP PO (19:47)
[2022-04-05] MEDS: Enoxaparin 40 MG/0.4 ML SYR SC (19:47)
[2022-04-05] MEDS: diphenhydrAMINE 25 MG CAP 50 MG PO (21:12)
[2022-04-05] MEDS: traZODone 50 MG TAB PO (21:13)
[2022-04-05] MEDS: VANCOMYCIN/WATER (PEG) 1.25 GM/250 ML BAG IV (23:40)
[2022-04-06] VITALS (14 sets, daily range): BP systolic 97–148; BP diastolic 53–72; PULSE 62–97; RESP 18–20; TEMP 36.1–39; O2SAT 93–97
--- NOTE | 2022-04-06 | DI.CT_ITS ---
Exam(s) CT LOWER EXTREMITY RT W EXAM: CT LOWER EXTREMITY RT W CLINICAL HISTORY: eval R heel wound for abscess TECHNIQUE: COMPARISON: No exams were available for comparison FINDINGS: CT examination of the lower extremity was performed from the level of the knee to the toes. There is reportedly a right heel wound. There is diffuse soft tissue edema in the subcutaneous tissues the lower extremity. There is no foca l abscess identified and no enhancing lesion seen. No erosive or destructive bony process identified . IMPRESSION: No focal abscess identified. If there is a high clinical suspicion of abscess or osteomyelitis, carla tional evaluation with MRI may be considered. RADIATION DOSE DELIVERED: 576.51mGy.cm Total DLP !Error CTDIvol DATA REPOSITORY: All CT scans at this facility are submitted to the National Radiology Data Registry (NRDR) Dose Index Registry (DIR) with the [employer] (A[employer]). RADIATION OPTIMIZATION: All CT scans at this facility use at least one of these dose optimization te chniques: automated exposure control; mA and/or kV adjustment per patient size (includes targeted exa ms where dose is matched to clinical indication); or iterative reconstruction.
[2022-04-06] MEDS: CEFEPIME 2 GM in Normal Saline 100 ML IVPB ×3 (01:58→18:34)
[2022-04-06] MEDS: Acetaminophen 325 MG TAB PO ×4 (03:17→20:44)
[2022-04-06] MEDS: traMADol 50 MG TAB PO ×4 (05:38→20:45)
[2022-04-06 06:34] LABS: Lactate 1.7 mmol/L (0.6-1.4)
[2022-04-06 06:37] LABS: Abs Immature Grans 0.09 10^3/uL (0.0-0.06); Absolute Basophil Count 0.07 10^3/uL (0.0-0.2); Absolute Monocyte Count 1.51 10^3/uL (0.1-0.8); Basophils % 0.4; Eosinophils % 1.2; HCT 37.6 % (40.0-50.0); HGB 12.8 g/dL (13.5-17.5); Immature Grans % 0.6; Lymphocytes % 6.6; MCH 30.6 pg (27.0-33.0); MCV 90 fL (80-95); MPV 10.8 fL (8.0-11.0); Monocytes % 9.3; Neutrophils % 81.9; Platelet Count 193 10^3/uL (130-400); RBC 4.18 10^6/uL (4.36-5.78); RDW 14.4 % (11.8-14.1); RDW-SD 47.7 fL; WBC 16.29 10^3/uL (4.4-10.8)
[2022-04-06 06:47] LABS: Anion Gap 12.3 mmol/L (3-11); BUN 27 mg/dL (7-18); CO2 21.7 mmol/L (21.0-32.0); CREATININE 1.1 mg/dL (0.70-1.30); Calcium 7.8 mg/dL (8.5-10.1); Chloride 100 mmol/L (98-107); Estimated GFR 72.22 (mL/min/1.73m2); Glucose 164 mg/dL (74-106); Sodium 134 mmol/L (136-145)
[2022-04-06] MEDS: Celecoxib 200 MG CAP PO ×2 (07:04→19:34)
[2022-04-06 07:08] LABS: Absolute Lymphocyte Count 1.08 10^3/uL (1.2-3.4); Absolute Neutrophil Count 13.34 10^3/uL (1.2-6.7)
[2022-04-06 07:27] LABS: Diff Comment Agrees w/ Instrument; RBC Morphology Normal
[2022-04-06] MEDS: Atorvastatin 40 MG TAB 80 MG PO (08:23)
[2022-04-06] MEDS: Aspirin 81 MG CHEW PO (08:23)
[2022-04-06] MEDS: Spironolactone 50 MG TAB PO (08:23)
[2022-04-06] MEDS: Gabapentin 300 MG CAP PO ×3 (08:23→19:34)
[2022-04-06] MEDS: Metoprolol CR 25 MG TABCR PO (08:23)
[2022-04-06] MEDS: Lisinopril 5 MG TAB 2.5 MG PO (08:24)
[2022-04-06] MEDS: metFORMIN 500 MG TAB 1000 MG PO ×2 (08:24→16:34)
[2022-04-06] MEDS: Furosemide 20 MG TAB PO (08:24)
[2022-04-06] MEDS: Insulin Aspart 300 UNITS/3 ML PEN 35 UNITS SC ×2 (08:25→12:02)
[2022-04-06] MEDS: Enoxaparin 40 MG/0.4 ML SYR SC ×2 (08:26→19:34)
[2022-04-06] MEDS: Insulin Aspart 300 UNITS/3 ML PEN SC ×2 (08:26→18:36)
--- NOTE | 2022-04-06 09:29 | W.INDIABCONS ---
Date of service: 04/06/22 Time of Service: 09:29 Diabetes Inpatient Consult Reason for Visit: Diabetes education and diabetes management DESCRIPTION/ASSESSMENT: Mr. Gan is admitted with cellulitis from his heel to his knee. He has a history of CAD as well as diabetes. His diabetes home medications include: Liraglutide 1.8 mg daily Metformin 1000 mg po bid Aspart u100 35 units tid detemir 53 units daily His meds for diabetes here are: Aspart 35 units q meal Detemir 30 units q d Aspart correction Mr. Gan has excellent PO intake and his blood sugars are at target. His BMI is 45.8 kg/m2 which is c/w class 3 obesity. He has not had an A1C checked (at least here) in 6 years. INTERVENTION: Will visit with Mr. Gan to gauge his knowledge of diabetes self management as well as his willingness to engage. Will also discuss weight management with him. Would recommend checking an A1C so we can see how well his medication regimen at home has been working given the importance of tight blood sugar management with cellulitis. Will also provide Mr. Gan with Glucerna supplements to boost his protein intake. PLAN: Will check in with Mr. Gan for diabetes and weight management education. Will continue to monitor weight, PO, blood sugars. Will evaluate nutrition and diabetes care plan ongoing and adjust as needed. Time Spent in Nutritional Counseling and Treatment: 0
--- NOTE | 2022-04-06 10:00 | INITIAL_ITS ---
- If Service Date Differs Date of service: 04/06/22 Time of Service: 10:00 Care Management Initial Assess REASON FOR HOSPITALIZATION:: cellulitis of right foot PAST MEDICAL HISTORY/PAST SURGICAL HISTORY:: All Active Problems (Updated 04/05/22 @ 19:55 by Bennett Zapata MD). Cellulitis of right foot (Acute). S/P CABG x 3 (Acute ~01/31/19). Dyslipidemia (Acute). Hypertension (Chronic). Ischemic cardiomyopathy (Acute). CAD (coronary artery disease) (Chronic). Tubular adenoma (Acute 05/12/15). Medical History (Updated 04/05/22 @ 19:55 by Bennett Zapata MD). Arteriosclerotic heart disease (ASHD). Diabetes mellitus type 2, insulin dependent. Mitral regurgitation PREVIOUS FUNCTIONAL STATUS/SOCIAL/FAMILY SUPPORTS:: Carlos, who is called Dylan, lives alone in an apartment at the [facility]. He has a son and a daughter. His daughter lives close by and is supportive of his needs and his son lives in [place]. 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 Since his foot became infected last week, he has been using a walker, but normally does not need any assistive devices. CURRENT FUNCTIONAL STATUS:: Dylan was sitting up in bed when CM met with him. He was pleasant in interaction and agreeable to conversation. Dylan talked about his many health issues and the fact that he is happy that he has good insurance. He has Medicare, Medicaid and Financial Assist 100%, so he rarely needs to pay medical expenses out of pocket. Dylan enjoys delivering meals and likes living at the [facility] where there is a sense of community among many of the residents. ADVANCE DIRECTIVES:: none on file Has patient been provided with info about the portal/API?: Yes Did the patient sign up for the portal?: No CODE STATUS:: DNR/DNI INSURANCE COVERAGE / FINANCIAL ISSUES:: Medicare. Medicaid CURRENT HOME/COMMUNITY SERVICES/EQUIPMENT:: has a walker PRIMARY CARE PHYSICIAN:: Taye Ron POTENTIAL DISCHARGE NEEDS:: follow up with PCP and plan of care PATIENT/FAMILY EDUCATION NEEDS:: Review of discharge instructions, limitatrions, activity, follow up plan, discuss Ask Me Three TRANSPORTATION:: via private vehicle with family PLAN:: Dylan will likely be discharged home, possibly with new home health services for wound care. He will follow up with his community providers and plan of care and transport with friends/family. CM will offer support to Dylan and assess for discharge needs.
[2022-04-06] MEDS: Magnesium Oxide 400 MG TAB PO (12:02)
--- NOTE | 2022-04-06 12:50 | PGE_ITS ---
Date of Service Date of service: 04/06/22 Time of Service: 12:51 Assessment and Plan Assessment and plan (1) Cellulitis of right foot: Status: Acute Assessment and plan: Cellulitis is improving on his current regimen of cefepime and vancomycin. Although he continues to have a leukocytosis 16,000. Plain film imaging of his right foot showed no osteomyelitis. I have asked Dr. Lux to evaluate the patient and see if this right heel ulcer needs any debridement. (2) Non-healing wound of right heel: Status: Acute Assessment and plan: Dr. Lux from orthopedics has been consulted on the patient. Per my discussion with him he feels that the nonhealing wound on his right heel is vascular in nature and the patient needs further vascular studies and wound care consultation. At present time he is not inclined to perform a debridement as he is concerned about wound healing due to compromised vascularity.. (3) CAD (coronary artery disease): Status: Chronic Assessment and plan: H/O CAGB and ischemic cardiomyopathy. No current CP, SOA. Cont ASA, BB, Statin. Qualifiers: Coronary Disease-Associated Artery/Lesion type: [place] artery [place] vs. transplanted heart: [place] heart Associated angina: without angina Qualified Code(s): I25.10 - Atherosclerotic heart disease of [place] coronary artery without angina pectoris (4) Diabetes mellitus type 2, insulin dependent: Assessment and plan: Continue meal coverage with NovoLog along with sliding scale insulin and basal insulin with Levemir. Blood sugars appear to be adequately controlled between 130-160. (5) Dyslipidemia: Status: Acute Assessment and plan: Cont atorvastatin. Subjective Subjective Interval history since last seen: Patient states that right leg is improving is still very tender but the redness is gone down. He is concerned as to what were going to do about the ulcer is healed. I told him that we do not have podiatry available presently but we would ask orthopedic surgery to take a look at his heel. I examined his right heel and there is no purulent drainage and appears to be a callused ulcer. He has markedly diminished pulses in his right leg I cannot palpate pedal pulses in his right foot. I think this is mostly due to severe PAD causing his recurrent cellulitis of his right foot and leg. Exam Narrative Exam Narrative: Obese bearded white male lying in bed no acute distress he is alert and oriented person place time circumstance. Chest is barrel chested but clear Heart is regular rate and rhythm Abdomen soft nondistended Lower extremities 2+ edema of his tibia bilaterally the right foot is cool but not cyanotic he has nonpalpable dorsalis pedis and posterior tibialis pulses but has a palpable popliteal pulse. Left foot has a very weak DP and PT T pulses. Right heel has a shallow callused ulcer on the bottom of the right heel. There is no purulent drainage. The previous area of erythema of his right leg which was marked with a pen appears to have receded. Objective Last Vital Signs Temp 36.1 C L 04/06/22 12:12 Pulse 75 04/06/22 12:12 Resp 18 04/06/22 12:12 BP 97/55 L 04/06/22 12:12 Pulse Ox 94 04/06/22 12:12 Laboratory Results - last 24 hr 04/05/22 04/05/22 04/05/22 16:35 18:45 18:45 WBC RBC Hgb Hct MCV MCH MCHC RDW Plt Count MPV Immature Gran % Neutrophils % Lymphocytes % Monocytes % Eosinophils % Basophils % Nucleated RBC % Absolute Neutrophils Absolute Lymphocytes Absolute Monocytes Absolute Eosinophils Absolute Basophils RBC Morphology VBG Lactate 1.9 H Sodium Potassium Chloride Carbon Dioxide Anion Gap BUN Creatinine Est GFR (CKD-EPI 2020) Glucose 148 H Calcium Urine Color Yellow Urine Clarity Clear Urine pH 5.5 Ur Specific [place] 1.015 Urine Protein Negative Urine Ketones Negative Urine Blood Negative Urine Nitrite Negative Urine Bilirubin Negative Urine Urobilinogen 0.2 Ur Leukocyte Esterase Negative Urine Glucose 500 H 04/06/22 04/06/22 04/06/22 06:30 06:30 06:30 WBC 16.29 H RBC 4.18 L Hgb 12.8 L Hct 37.6 L MCV 90 MCH 30.6 MCHC 34.0 RDW 14.4 H Plt Count 193 MPV 10.8 Immature Gran % 0.6 Neutrophils % 81.9 Lymphocytes % 6.6 Monocytes % 9.3 Eosinophils % 1.2 Basophils % 0.4 Nucleated RBC % 0.0 Absolute Neutrophils 13.34 H Absolute Lymphocytes 1.08 L Absolute Monocytes 1.51 H Absolute Eosinophils 0.20 Absolute Basophils 0.07 RBC Morphology Normal VBG Lactate 1.7 H Sodium 134 L Potassium 4.0 Chloride 100 Carbon Dioxide 21.7 Anion Gap 12.3 H BUN 27 H Creatinine 1.1 Est GFR (CKD-EPI 2020) 72.22 Glucose 164 H Calcium 7.8 L Urine Color Urine Clarity Urine pH Ur Specific [place] Urine Protein Urine Ketones Urine Blood Urine Nitrite Urine Bilirubin Urine Urobilinogen Ur Leukocyte Esterase Urine Glucose
--- NOTE | 2022-04-06 14:43 | OCONE_ITS ---
Date of service: 04/06/22 Time of Service: 12:45 History of Present Illness History of Present Illness Chief Complaint: Right heel wound Narrative: Carlos is a 72-year-old male who has had some issues with his right heel in the past. He reports multiple episodes of cracked skin and tenderness about the heel of both, worse on the right side. He had vein stripping surgery for coronary artery bypass and since that time has had worsening issues with the right heel. More recently he developed associated erythema from of the right heel extending up the leg and was admitted the hospital yesterday for IV antibiotics. He has had improvement with the redness about the right leg but does continue to have a dry cracked wound about the heel on the right side. He reports significant sensitivity about the right heel and the surrounding tissues. The left side is doing better although it has been bad in the past. He does report diabetes with uncontrolled diabetes and a hemoglobin A1c of 10. He does report good sensation at the level of the heel with some decrease sensation at the level of the toes. He finds ambulation challenging given the sensitivity has with any direct pressure to the heel. Consults Consult date: 04/06/22 Requesting physician: Efrain Noel Consult Reason Right heel wound Assessment and Plan Assessment and plan (1) Cellulitis of right foot: Status: Acute Assessment and plan: The cellulitis of the right foot and leg appears to be improving with antibiotics. Unfortunately, I am not sure what the organism is but at this point I would continue to treat with IV antibiotics and then slowly transition to an oral regimen. He has no signs of sepsis. He has no gross purulence of the wound itself. I do believe the wound is the source but I do not know if further debridement would make any difference in the treatment course. However, I would like to obtain a CT scan of the right heel to assess for any abscess given the duration and chronicity of this wound. (2) Non-healing wound of right heel: Status: Acute Assessment and plan: The nonhealing wound about the right heel is likely vascular in nature. He has notable arterial sclerosis seen on the x-ray with a history of vein harvesting on both of these legs due to his heart with known atherosclerosis as well. He is unable to tolerate any manipulation of this wound at the bedside and therefore would require some form of anesthetic even to do skin debridement which seems somewhat overkill. My suspicion is that this needs an outpatient wound care consult with vascular studies to assess vascularity of this and potential for healing. Additionally if there is a vascular component of this wound further debridement may make it even worse. His sensitivity is most indicative of vascular process at play., However, complicated by the recent infection. I would recommend vascular studies and wound care consult. Review of Systems All systems reviewed & are unremarkable except as noted in HPI and below PFSH All Active Problems (Updated 04/06/22 @ 14:57 by Giles Lux MD) Non-healing wound of right heel (Acute) Cellulitis of right foot (Acute) S/P CABG x 3 (Acute ~01/31/19) Dyslipidemia (Acute) Hypertension (Chronic) Ischemic cardiomyopathy (Acute) CAD (coronary artery disease) (Chronic) Tubular adenoma (Acute 05/12/15) Medical History (Updated 04/06/22 @ 14:57 by Giles Lux MD) 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, insulin dependent Mitral regurgitation Social History Smoking/Tobacco Use Status: Former Tobacco Use Quit Date: 08/08/95 Pack-years: 60 Tobacco: How many years used: 30 Smoking risk assessment performed?: Yes Alcohol Intake: former Drug use: Never Substance use type: does not use Housing: apartment current occupation: retired Do you feel safe at home: Yes Do you feel safe in your relationship?: Yes Exam Narrative Exam Narrative: Sitting up in hospital bed. Cooperative and pleasant. Alert and orient x3. No acute distress. Evaluation of the right lower extremity shows dry and thickened skin about the heel. There is a longitudinal crack measuring about 1 cm from cranial to caudad over the right heel. There is no surrounding erythema. There is no expressible fluid. There is exquisite sensitivity with any palpation on this level as well as expanding out from this to the area of the calcaneus. There is some purpuric type lesions which I cannot determine are ecchymosis or not. No rash. No other wounds to the toes. No cracks between the toes. He endorses full sensation at the level of the heel and the ankle. He is able to actively dorsiflex and plantarflex the right ankle as well as extend and flex the great toe. There may be faintly palpable pulses both PT and DP although DP is harder to appreciate than PT and they are very faint and not bounding. There is a generalized pallor to the foot capillary refill is about 4-5 seconds Results Last Vital Signs Temp 36.1 C L 04/06/22 12:12 Pulse 75 04/06/22 12:12 Resp 18 04/06/22 12:12 BP 97/55 L 04/06/22 12:12 Pulse Ox 94 04/06/22 12:12 Labs Result diagrams: 04/06/22 06:30 04/06/22 06:30 Labs: Laboratory Results - last 24 hr 04/05/22 04/05/22 04/05/22 16:35 18:45 18:45 WBC RBC Hgb Hct MCV MCH MCHC RDW Plt Count MPV Immature Gran % Neutrophils % Lymphocytes % Monocytes % Eosinophils % Basophils % Nucleated RBC % Absolute Neutrophils Absolute Lymphocytes Absolute Monocytes Absolute Eosinophils Absolute Basophils RBC Morphology VBG Lactate 1.9 H Sodium Potassium Chloride Carbon Dioxide Anion Gap BUN Creatinine Est GFR (CKD-EPI 2020) Glucose 148 H Calcium Urine Color Yellow Urine Clarity Clear Urine pH 5.5 Ur Specific [place] 1.015 Urine Protein Negative Urine Ketones Negative Urine Blood Negative Urine Nitrite Negative Urine Bilirubin Negative Urine Urobilinogen 0.2 Ur Leukocyte Esterase Negative Urine Glucose 500 H 04/06/22 04/06/22 04/06/22 06:30 06:30 06:30 WBC 16.29 H RBC 4.18 L Hgb 12.8 L Hct 37.6 L MCV 90 MCH 30.6 MCHC 34.0 RDW 14.4 H Plt Count 193 MPV 10.8 Immature Gran % 0.6 Neutrophils % 81.9 Lymphocytes % 6.6 Monocytes % 9.3 Eosinophils % 1.2 Basophils % 0.4 Nucleated RBC % 0.0 Absolute Neutrophils 13.34 H Absolute Lymphocytes 1.08 L Absolute Monocytes 1.51 H Absolute Eosinophils 0.20 Absolute Basophils 0.07 RBC Morphology Normal VBG Lactate 1.7 H Sodium 134 L Potassium 4.0 Chloride 100 Carbon Dioxide 21.7 Anion Gap 12.3 H BUN 27 H Creatinine 1.1 Est GFR (CKD-EPI 2020) 72.22 Glucose 164 H Calcium 7.8 L Urine Color Urine Clarity Urine pH Ur Specific [place] Urine Protein Urine Ketones Urine Blood Urine Nitrite Urine Bilirubin Urine Urobilinogen Ur Leukocyte Esterase Urine Glucose Imaging Imaging Studies: X-ray of the right heel was reviewed. This does not show any sign of osteomyelitis. There is calcification seen around the calcaneal tuberosity. There are notable calcification of the vascular system with all arterial branches identifiable due to the calcifications.
[2022-04-06] MEDS: VANCOMYCIN/WATER (PEG) 1.25 GM/250 ML BAG IV (14:45)
--- NOTE | 2022-04-06 14:51 | W.DIABETESNO ---
Date of service: 04/06/22 Time of Service: 14:51 Diabetes Note Reason for Visit: Diabetes education NOTE: Mr. Gan states he feels good about his diabetes self management. He has had DSME in the past. Provided my contact information should he have any questions or concerns regarding his diabetes and or if he would like outpatient follow up with [facility]. Time Spent in Nutritional Counseling and Treatment: 10 minutes
--- NOTE | 2022-04-06 16:13 | PHACLINREV_ITS ---
Pharmacy Admission Review - Admission Clinical Review (Last Reviewed 04/05/22 @ 19:47 by Bennett Zapata MD) Non-healing wound of right heel (Acute) Cellulitis of right foot (Acute) Dyslipidemia (Acute) shellfish derived Allergy (Severe, Verified 04/05/22 09:57) Hives bee pollen Allergy (Mild, Verified 04/05/22 09:57) Anaphylaxsis methotrexate [Methotrexate] Allergy (Unknown, Verified 04/05/22 09:57) Resuscitation Status DNR/DNI Height 5 ft 6 in Weight 128.6 kg - Comments Comments/Follow Ups: review blood cultures & de-escalate antibiotics when possible - Renal Dosing Renal Dosing: BUN 27 mg/dL (7-18) H 04/06/22 06:30 Creatinine 1.1 mg/dL (0.70-1.30) 04/06/22 06:30 Medications needing adjustments: Reviewed (crcl = 79, no adjustment needed) - Anticoagulation Anticoagulation: Hgb 12.8 g/dL (13.5-17.5) L 04/06/22 06:30 Hct 37.6 % (40.0-50.0) L 04/06/22 06:30 Plt Count 193 10^3/uL (130-400) 04/06/22 06:30 Creatinine 1.1 mg/dL (0.70-1.30) 04/06/22 06:30 DVT Prophylaxis: Reviewed Medications: Enoxaparin Therapeutic Anticoagulation: N/A - Opiate Usage Evaluate Pain Scale/Pains Meds: Reviewed (tramadol prn (has received 2 doses)) - Relevant Labs Sodium 134 mmol/L (136-145) L 04/06/22 06:30 Potassium 4.0 mmol/L (3.5-5.1) 04/06/22 06:30 Chloride 100 mmol/L (98-107) 04/06/22 06:30 Magnesium 1.9 mg/dL (1.8-2.4) 04/05/22 10:10 Electrolytes, C-Reactive P, ESR: Reviewed - DM Control DM Control: Glucose 164 mg/dL (74-106) H 04/06/22 06:30 Finger Stick Blood Glucose 131 Finger Stick Blood Glucose 131 Finger Stick Blood Glucose 131 Finger Stick Blood Glucose 160 Finger Stick Blood Glucose 160 Insulin Dosing: Reviewed (no recent a1c, pt seen by coding educator) - Heart Failure/MA EF%, BYRON's, B-Blockers, Diuretics: Reviewed (takes metoprolol succ 25 mg daily, lisinopril 2.5 mg daily) - BP Control BP Control: Blood Pressure 109/68 Blood Pressure 97/55 Blood Pressure 102/53 If elevated: N/A (low normal) - Qtc Review If Elevated: N/A (no EKG to review) - IV to PO Switch IV Medications: Reviewed (vancomycin IV - continue, blood cultures are pending) - Home Meds Home Med List reviewed: Reviewed - Current meds Current Medication Order Review: Reviewed Antibiotic Activity - Pharmacy Antibiotic Review Pharmacy Antibiotic Activity: Reviewed, no change (continue vancomycin & cefepime (both started 04/05). No osteo expected) - Antibiotic Information Antibiotic Review Info: vancomycin 2 gram loading dose given yesterday @1130. 1250 mg Q14h dosed per [facility] program (estimated peak ~30, expected trough ~15). trough ordered for tomorrow @1700. Continue cefepime 2 gm q8h
[2022-04-06] MEDS: Omnipaque 350 MG/ML 100 ML BTL IV (16:24)
[2022-04-06] MEDS: Normal Saline Flush 10 ML SYR IVP ×2 (16:45→19:34)
[2022-04-06] MEDS: diphenhydrAMINE 25 MG CAP 50 MG PO (20:45)
[2022-04-06] MEDS: traZODone 50 MG TAB PO (20:45)
--- NOTE | 2022-04-07 | DI.MRI_ITS ---
Exam(s) MR LOWER JOINT RT WO/W EXAM: MR LOWER JOINT RT WO/W CLINICAL HISTORY: RIGHT HEEL ULCER, cellulitis; r/o osteomyelitis TECHNIQUE: Multiplanar multisequence MRI of the knee was performed with both pre and post contrast i nfused sequences. Contrast injected was IV 20 mL Dotarem. COMPARISON: CR XR HEEL RT OS CALCIS from 04/05/[address] LOWER EXTREMITY RT W from 04/06/2022 FINDINGS: The field of view of this study is the ankle and midfoot to the level the bases of the 4th metatarsal s. SKIN-SUBCUTANEOUS TISSUE: There is a skin marker over the heel. There is no evidence of obvious ulce r crater nor subcutaneous tract nor fluid collection at this level. No obvious penetrating ulcer in the field of view of this study. No gas in the soft tissues. No susceptibility artifact to suggest foreign body. MUSCLES: There is abundant subcutaneous edema around the entire ankle extending into the foot. Altho ugh there is no distinct organized fluid collection, there is abnormal musculature within the muscles on the undersurface of the foot as well as abnormal enhancement of these muscles, consistent with my ositis. The most prominent involvement with signal abnormality and enhancement of the muscles on the plantar medial aspect of the foot, specifically abductor hallucis, quadratus plantae, and others. T here is no formed abscess. There is no obvious gas in the soft tissues. MARROW: No intraosseous signal abnormality nor intraosseous enhancement to suggest the presence of os teomyelitis. ARTICULATIONS: There are no joint effusions and no evidence of para-articular ganglions. No erosions . No evidence of Charcot neuroarthropathy. SINUS TARSI: Unremarkable. No loss of normal fat signal. No evidence of sinus tarsi ganglion cyst. LIGAMENTS: No obvious tears. TENDONS: Achilles tendon appears unremarkable. Dorsal extensor tendons: Unremarkable. No tears. No tenosynovitis. Medial tendons: Tibialis posterior and flexor digitorum intact. No tears nor tenosynovitis. Flexor hallucis longus also unremarkable. Lateral tendons: Peroneus longus and brevis appear intact. No tears nor tenosynovitis. IMPRESSION: 1. No evidence of osteomyelitis. 2. However, there is prominent diffuse subcutaneous edema well as deeper edema and involvement of the deep musculature on the plantar surface of the foot, these muscles exhibiting abnormal signal and en hancement following contrast injection. Therefore deep muscle inflammatory-infectious involvement is the main finding here. There is presently no obvious gas in the soft tissues. 3. No evidence of fractures nor Charcot neuro arthropathy in this diabetic foot. DATA REPOSITORY:
[2022-04-07] MEDS: CEFEPIME 2 GM in Normal Saline 100 ML IVPB (01:32)
[2022-04-07] MEDS: Normal Saline Flush 10 ML SYR IVP ×6 (01:33→21:39)
[2022-04-07 03:00] VITALS: BP 131/71; PULSE 99; RESP 20; TEMP 36; O2SAT 95
[2022-04-07] MEDS: VANCOMYCIN/WATER (PEG) 1.25 GM/250 ML BAG IV ×2 (03:28→18:27)
[2022-04-07 07:33] VITALS: BP 128/64; PULSE 61; RESP 20; TEMP 36.3; O2SAT 98
[2022-04-07] MEDS: Celecoxib 200 MG CAP PO ×2 (08:21→20:18)
[2022-04-07] MEDS: Enoxaparin 40 MG/0.4 ML SYR SC ×2 (08:21→20:18)
[2022-04-07] MEDS: Spironolactone 50 MG TAB PO (08:21)
[2022-04-07] MEDS: Gabapentin 300 MG CAP PO ×2 (08:21→15:54)
[2022-04-07] MEDS: Aspirin 81 MG CHEW PO (08:21)
[2022-04-07] MEDS: metFORMIN 500 MG TAB 1000 MG PO ×2 (08:22→18:28)
[2022-04-07] MEDS: Furosemide 20 MG TAB PO (08:22)
[2022-04-07] MEDS: Atorvastatin 40 MG TAB 80 MG PO (08:22)
[2022-04-07] MEDS: Lisinopril 5 MG TAB 2.5 MG PO (08:22)
[2022-04-07] MEDS: Insulin Aspart 300 UNITS/3 ML PEN SC ×2 (08:23→12:03)
[2022-04-07] MEDS: Metoprolol CR 25 MG TABCR PO (08:23)
[2022-04-07] MEDS: Insulin Aspart 300 UNITS/3 ML PEN 35 UNITS SC ×3 (08:23→18:28)
[2022-04-07 09:03] LABS: ESR 78 mm/hr (0-20)
[2022-04-07 09:05] LABS: Abs Immature Grans 0.16 10^3/uL (0.0-0.06); Absolute Basophil Count 0.09 10^3/uL (0.0-0.2); Absolute Eosinophil Count 0.33 10^3/uL (0.0-0.7); Absolute Monocyte Count 1.32 10^3/uL (0.1-0.8); Absolute Neutrophil Count 14.78 10^3/uL (1.2-6.7); Basophils % 0.5; Eosinophils % 1.8; HGB 13.7 g/dL (13.5-17.5); Immature Grans % 0.9; MCHC 33.4 % (32.0-36.0); MCV 90 fL (80-95); Monocytes % 7.3; Neutrophils % 81.5; RBC 4.57 10^6/uL (4.36-5.78); RDW 14.2 % (11.8-14.1); RDW-SD 46.6 fL; WBC 18.14 10^3/uL (4.4-10.8)
[2022-04-07 09:07] LABS: Absolute Lymphocyte Count 1.45 10^3/uL (1.2-3.4)
--- NOTE | 2022-04-07 09:12 | PDOC.CMPRO ---
- If Service Date Differs Date of service: 04/07/22 Time of Service: 09:12 Care Management Progress Note S/O:Dylan was sitting up in his chair when CM met with him. He was pleasant and easily engaged with CM. Dylan stated that his leg is improving somewhat but they still don't have all of the answers. He stated that his doctor is waiting for final blood culture results. Dylan had an MRI today to rule out osteomyelitis and,fortunately, it was negative. He understands that osteomyelitis would require prolonged treatment, so he was pleased with the results. Dylan shared that he is not really able to walk right now as he has a lot of pain in both feet/legs. He informed CM that he is not sure if he can manage alone at home right now but is unwilling to consider rehab. He did state that he has people he can stay with but was not specific about who those people might be. A; Dylan is a 72 year old man admitted on 04/05/22 with cellulitis P:Dylan will likely be discharged home, likely with new home health services for wound care and possibly PT. He will follow up with his community providers and plan of care and transport with friends/family. CM will offer support to Dylan and assess for discharge needs.
[2022-04-07 09:19] LABS: ALT 38 U/L (16-63); AST 32 U/L (15-37); Albumin 2.7 g/dL (3.4-5.0); Alkaline Phosphatase 84 U/L (46-116); Anion Gap 6.7 mmol/L (3-11); BUN 27 mg/dL (7-18); Bilirubin, Total 0.8 mg/dL (0.2-1.0); C-Reactive Protein 10.77 mg/dL (0.0-0.3); CO2 23.3 mmol/L (21.0-32.0); CREATININE 1.1 mg/dL (0.70-1.30); Calcium 8.1 mg/dL (8.5-10.1); Chloride 98 mmol/L (98-107); Estimated GFR 72.22 (mL/min/1.73m2); Glucose 202 mg/dL (74-106); Potassium 3.9 mmol/L (3.5-5.1); Sodium 128 mmol/L (136-145); Total Protein 7.5 g/dL (6.4-8.2)
[2022-04-07 09:36] LABS: Procalcitonin 0.3 ng/mL
[2022-04-07] MEDS: Gadoterate meglumine 20 ML SYRINGE IVP (10:53)
[2022-04-07] MEDS: Acetaminophen 325 MG TAB PO ×2 (11:53→23:02)
[2022-04-07] MEDS: Magnesium Oxide 400 MG TAB PO (11:53)
[2022-04-07] MEDS: traMADol 50 MG TAB PO (11:53)
--- NOTE | 2022-04-07 11:56 | PGE_ITS ---
Date of Service Date of service: 04/07/22 Time of Service: 11:56 Assessment and Plan Assessment and plan (1) Cellulitis of right foot: Status: Acute Assessment and plan: Still having intermittent low grade fever (up to 39 C last night) and leukocytosis (WBC 18,000). I have ordered MRI of his foot to look for osteomyelitis. He needs referral to vascular to evaluate his circulation in the right leg. I will make referrals to [facility] wound care center (2) Non-healing wound of right heel: Status: Acute Assessment and plan: Dr. Lux from orthopedics has been consulted on the patient. Per my discussion with him he feels that the nonhealing wound on his right heel is vascular in nature and the patient needs further vascular studies and wound care consultation. At present time he is not inclined to perform a debridement as he is concerned about wound healing due to compromised vascularity.. (3) CAD (coronary artery disease): Status: Chronic Assessment and plan: H/O CAGB and ischemic cardiomyopathy. No current CP, SOA. Cont ASA, BB, Statin. Qualifiers: Coronary Disease-Associated Artery/Lesion type: [place] artery [place] vs. transplanted heart: [place] heart Associated angina: without angina Qualified Code(s): I25.10 - Atherosclerotic heart disease of [place] coronary artery without angina pectoris (4) Diabetes mellitus type 2, insulin dependent: Assessment and plan: Continue meal coverage with NovoLog along with sliding scale insulin and basal insulin with Levemir. Blood sugars appear to be adequately controlled between 140-180. (5) Dyslipidemia: Status: Acute Assessment and plan: Cont atorvastatin. Subjective Subjective Interval history since last seen: Patient having quite a bit more pain in the right foot today. I have increased his dose of his Tramadol 100 mg QID prn and his gabapentin. He says that he takes 1000 mg at home however we have him on gabapentin 300 mg tid. I called his pharmacy, [facility] in [facility] and the pharmacist verified that he is suppose to be taking 300 mg tid. I will increase him to 300 mg in the morning and 300 mg in the afternoon and 600 mg at bedtime. Exam Narrative Exam Narrative: RLE showing continued erythema and increased warmth over the medial lower tibia and medial malleolus. Heel w/ dried callus ulcer on plantar surface. Lungs: clear Heart: regular Objective Last Vital Signs Temp 36.3 C L 04/07/22 07:33 Pulse 61 04/07/22 07:33 Resp 20 04/07/22 07:33 BP 128/64 04/07/22 07:33 Pulse Ox 98 04/07/22 07:33 Laboratory Results - last 24 hr 04/07/22 04/07/22 04/07/22 08:50 08:50 08:50 WBC RBC Hgb Hct MCV MCH MCHC RDW Plt Count MPV Immature Gran % Neutrophils % Lymphocytes % Monocytes % Eosinophils % Basophils % Nucleated RBC % Absolute Neutrophils Absolute Lymphocytes Absolute Monocytes Absolute Eosinophils Absolute Basophils ESR 78 H Sodium 128 L Potassium 3.9 Chloride 98 Carbon Dioxide 23.3 Anion Gap 6.7 BUN 27 H Creatinine 1.1 Est GFR (CKD-EPI 2020) 72.22 Glucose 202 H Calcium 8.1 L Total Bilirubin 0.8 AST 32 ALT 38 Alkaline Phosphatase 84 C-Reactive Protein 10.77 H Total Protein 7.5 Albumin 2.7 L Procalcitonin 0.3 04/07/22 08:50 WBC 18.14 H RBC 4.57 Hgb 13.7 Hct 41.0 MCV 90 MCH 30.0 MCHC 33.4 RDW 14.2 H Plt Count MPV Immature Gran % 0.9 Neutrophils % 81.5 Lymphocytes % 8.0 Monocytes % 7.3 Eosinophils % 1.8 Basophils % 0.5 Nucleated RBC % 0.0 Absolute Neutrophils 14.78 H Absolute Lymphocytes 1.45 Absolute Monocytes 1.32 H Absolute Eosinophils 0.33 Absolute Basophils 0.09 ESR Sodium Potassium Chloride Carbon Dioxide Anion Gap BUN Creatinine Est GFR (CKD-EPI 2020) Glucose Calcium Total Bilirubin AST ALT Alkaline Phosphatase C-Reactive Protein Total Protein Albumin Procalcitonin
[2022-04-07 12:13] VITALS: BP 95/64; PULSE 106; RESP 21; TEMP 37.6; O2SAT 97
[2022-04-07 12:55] LABS: Lab Add On Test DONE
[2022-04-07 13:50] LABS: Hemoglobin A1C 7.1 % (<5.7)
[2022-04-07] MEDS: IMIPENEM/CILASTATIN 500 MG in Normal Saline 100 ML 200 MG IVPB ×2 (13:53→20:45)
[2022-04-07 14:21] VITALS: BP 102/65; PULSE 85; RESP 19; TEMP 37.4; O2SAT 95
--- NOTE | 2022-04-07 15:13 | WOUNDCONS_ITS ---
- If Service Date Differs Date of service: 04/07/22 Time of Service: 15:13 Wound Initial Evaluation Narrative: Pt is a 72 yo male agreeable to wound consult and signed consent for ph otography. Past medical Hx reviewed, H&P, pertinent labs, and other providers notes. Pt has crack/fissure on Right heel, which seems to be the source of infection leading to RLE cellulitis, which during hospital stay has improved per Pt significantly. Osteomyelitis r/o via MRI yesterday 04/06/22. Ortho has been consulted and recommended outpatient wound care and vascular studies. MS Believes crack is vascular in nature d/t pain/sensitivity. Crack is dry and slightly pink in the middle. Entire leg is dry ad scaly, as is left leg. Per Dr. Noel's note he is ordering vascular studies and outpatient wound care @ [facility]. Agree with this courser of action. Discussed nutrition with Patient, encouraged protein and fluid intake and good diabetic foot care practices. - Wound Right Heel Wound Type: Other Wound General Appearance: Open to air, Unapproximated Wound Bed Greatest Portion: Pale [place] (slit in middle of fissue pale pink) Wound Surrounding Tissue Appearance: Normal/Healthy Wound Length: 1.5 cm Wound Width: 0.4 cm Wound Depth: 0.1 cm Wound Drainage Amount: None Wound Drainage Odor: None/Absent - Circulation, Sensation, Motion Peripheral Pulse Strength: Weak Capillary Refill: Greater than 3 seconds Sensation Description: Numbness, Pain (Pt c/o painful right foot) Skin Temperature: Warm Skin Color: Normal - [place] Comment:: Not indicated @ this time, Pt being sent for vascular studies - Pain Pain Level: 5 Pain Scale Used: Adult - Recomendation Recomendation:: Reccomend washing bilateral feet and legs with soap and water. Pat dry. Apply Ammonium Lactate lotion 12% BID Recommend washing bilateral feet and LE's w/soap and water. Dry thoroughly. Apply Ammonium Lactate Lotion 12% to bilateral legs and feet BID. Use for 4 weeks OR until PCP or [facility] vascular or wound care department tells you to stop applying lotion. Physcian/Nurse Practioner Notified: Yes (Dr. Noel) Referrals: Other ([facility] wound care and vascular studies)
[2022-04-07] MEDS: DULoxetine 30 MG CAP PO (15:54)
[2022-04-07 18:12] LABS: Vancomycin, Trough 14.7 ug/mL (10.0-20.0)
[2022-04-07 19:32] VITALS: BP 108/80; PULSE 88; RESP 18; TEMP 37; O2SAT 96
[2022-04-07] MEDS: diphenhydrAMINE 25 MG CAP 50 MG PO (20:18)
[2022-04-07] MEDS: traZODone 50 MG TAB PO (20:18)
[2022-04-07] MEDS: Lachydrin 12% LOTION 225 GM BTL TP (20:45)
[2022-04-07] MEDS: Gabapentin 600 MG TAB PO (21:38)
[2022-04-07 23:29] VITALS: BP 102/57; PULSE 113; RESP 18; TEMP 36.6; O2SAT 94
[2022-04-08] MEDS: Normal Saline Flush 10 ML SYR IVP ×3 (03:16→21:54)
[2022-04-08] MEDS: IMIPENEM/CILASTATIN 500 MG in Normal Saline 100 ML 200 MG IVPB ×4 (03:17→21:54)
[2022-04-08 03:35] VITALS: BP 104/62; PULSE 98; RESP 20; TEMP 36.3; O2SAT 95
[2022-04-08 07:04] LABS: Absolute Lymphocyte Count 2.07 10^3/uL (1.2-3.4); Absolute Monocyte Count 1.28 10^3/uL (0.1-0.8); Basophils % 0.5; Eosinophils % 2.7; HCT 37.4 % (40.0-50.0); HGB 12.8 g/dL (13.5-17.5); Immature Grans % 1.8; Lymphocytes % 12.3; MCH 30.3 pg (27.0-33.0); MCHC 34.2 % (32.0-36.0); MCV 88 fL (80-95); MPV 11.1 fL (8.0-11.0); Monocytes % 7.6; Neutrophils % 75.1; Platelet Count 245 10^3/uL (130-400); RBC 4.23 10^6/uL (4.36-5.78); RDW 14.2 % (11.8-14.1); WBC 16.86 10^3/uL (4.4-10.8)
[2022-04-08 07:08] LABS: Absolute Basophil Count 0.08 10^3/uL (0.0-0.2); Absolute Eosinophil Count 0.46 10^3/uL (0.0-0.7); Absolute Neutrophil Count 12.66 10^3/uL (1.2-6.7)
[2022-04-08 07:21] LABS: Anion Gap 9.5 mmol/L (3-11); BUN 27 mg/dL (7-18); CO2 21.5 mmol/L (21.0-32.0); CREATININE 0.8 mg/dL (0.70-1.30); Calcium 7.8 mg/dL (8.5-10.1); Chloride 103 mmol/L (98-107); Estimated GFR 95.21 (mL/min/1.73m2); Glucose 140 mg/dL (74-106); Potassium 3.7 mmol/L (3.5-5.1); Sodium 134 mmol/L (136-145)
[2022-04-08] MEDS: Lisinopril 5 MG TAB 2.5 MG PO (07:44)
[2022-04-08] MEDS: Metoprolol CR 25 MG TABCR PO (07:44)
[2022-04-08] MEDS: Celecoxib 200 MG CAP PO ×2 (07:44→20:51)
[2022-04-08] MEDS: Aspirin 81 MG CHEW PO (07:44)
[2022-04-08] MEDS: Enoxaparin 40 MG/0.4 ML SYR SC ×2 (07:44→20:50)
[2022-04-08] MEDS: DULoxetine 30 MG CAP PO (07:44)
[2022-04-08] MEDS: Atorvastatin 40 MG TAB 80 MG PO (07:44)
[2022-04-08] MEDS: metFORMIN 500 MG TAB 1000 MG PO (07:44)
[2022-04-08] MEDS: Gabapentin 300 MG CAP PO ×2 (07:45→14:16)
[2022-04-08] MEDS: VANCOMYCIN/WATER (PEG) 1.25 GM/250 ML BAG IV (07:45)
[2022-04-08] MEDS: Insulin Aspart 300 UNITS/3 ML PEN 35 UNITS SC ×3 (07:47→16:45)
[2022-04-08] MEDS: Insulin Aspart 300 UNITS/3 ML PEN SC ×3 (07:48→16:51)
[2022-04-08 08:29] VITALS: BP 103/66; PULSE 61; RESP 18; TEMP 36.4; O2SAT 98
--- NOTE | 2022-04-08 08:38 | PDOC.CMPRO ---
- If Service Date Differs Date of service: 04/08/22 Time of Service: 08:38 Care Management Progress Note S/O:Dylan was sitting up in his chair when CM met with him. He was pleasant and easily engaged with CM. Dylan is going to need at least 2 weeks of IV antibiotics per provider. CM discussed the available options with him. Dylan does not feel he can manage home infusions as he lives alone and travel daily to an Infusion Center would also be problematic. He would be agreeable to SB-1 to complete the course of treatment. A midline catheter was inserted by Anesthesia to facilitate administration. A; Dylan is a 72 year old man admitted on 04/05/22 with cellulitis P:Dylan will likely be discharged home with new home health services for wound care and possibly PT after completing a 2 week course of IV antibiotics. He will most likely transition to SB-1 for the antibiotic therapy. He will follow up with his community providers and plan of care and transport with friends/family. CM will offer support to Dylan and assess for additional discharge needs.
[2022-04-08] MEDS: Magnesium Oxide 400 MG TAB PO (10:21)
[2022-04-08] MEDS: Lachydrin 12% LOTION 225 GM BTL TP ×2 (10:29→20:50)
[2022-04-08] MEDS: cefTRIAXone 2 GM/50 ML BAG IVPB (11:22)
[2022-04-08 15:38] VITALS: BP 125/69; PULSE 98; RESP 19; TEMP 36.8; O2SAT 97
--- NOTE | 2022-04-08 16:00 | PGE_ITS ---
Date of Service Date of service: 04/08/22 Time of Service: 16:00 Assessment and Plan Assessment and plan (1) Cellulitis of right foot: Status: Acute Assessment and plan: No fevers since 04/06 and leukocytosis (WBC 16,000). MRI of his foot to look for osteomyelitis was negative, however there is prominent diffused subcutaneous edema and deeper edema and involvement of the deep musculature. Deep muscle inflammatory-infectious involvement is the main finder per radiology. He needs referral to vascular to evaluate his circulation in the right leg, and [facility] wound care. Continue abx Discussed with Dr Noel (2) Non-healing wound of right heel: Status: Acute Assessment and plan: Dr. Lux from orthopedics has been consulted on the patient. At present time he is not inclined to perform a debridement as he is concerned about wound healing due to compromised vascularity.. (3) CAD (coronary artery disease): Status: Chronic Assessment and plan: H/O CAGB and ischemic cardiomyopathy. No current CP, SOA. Cont ASA, BB, Statin. Qualifiers: Associated angina: without angina Coronary Disease-Associated Artery/Lesion type: [place] artery [place] vs. transplanted heart: [place] heart Qualified Code(s): I25.10 - Atherosclerotic heart disease of [place] coronary artery without angina pectoris (4) Diabetes mellitus type 2, insulin dependent: Assessment and plan: Continue meal coverage with NovoLog along with sliding scale insulin and basal insulin with Levemir. Blood sugars appear to be adequately controlled between 140-180. (5) Dyslipidemia: Status: Acute Assessment and plan: Cont atorvastatin. (6) DVT prophylaxis: Status: Acute Assessment and plan: Enoxaparin subcutaneously (7) Discharge planning issues: Status: Acute Assessment and plan: Might swing for 2 weeks of antibiotics. Midline placed today. Subjective Subjective Patient reports: no new complaints Interval history since last seen: Midline placed by anesthesia for ~ 14 days of IV abx planned, he lives alone and is receiving abx eveyr 6 hours; makes sense to swing , will reeval tomorrow Exam Narrative Exam Narrative: Awake , alert, conversant, pleasant. Const General: cooperative and no acute distress Nutritional Appearance: obese Orientation: alert and oriented x3 Eyes General: appearance normal, both eyes and all related structures Sclera: sclerae normal EOM: no movement deficit Neck Neck: normal visual inspection and no JVD Resp Effort & Inspection: normal respiratory effort Auscultation: clear to auscultation bilaterally Cardio Rate: regular rate Rhythm: regular rhythm Heart Sounds: S1 normal and S2 normal GI Inspection: obesity Palpation: soft and nontender Auscultation: normal bowel sounds Skin General skin exam: dry skin and erythema (right heel erythema extended medially to knee. ) Lesions: lesion noted (thickened, crack skin at right heel. No ulceration. No drainage. ) Neuro General: no focal motor deficits Cranial Nerves: facial strength normal Speech: speech normal Extrem General: no calf tenderness and edema (nonpitting) Psych Appearance: grossly normal Mental Status: mental status grossly normal Speech and Movement: speech and movement normal Affect: normal affect Objective Last Vital Signs Temp 36.8 C 04/08/22 15:38 Pulse 98 H 04/08/22 15:38 Resp 19 04/08/22 15:38 BP 125/69 04/08/22 15:38 Pulse Ox 97 04/08/22 15:38 Laboratory Results - last 24 hr 04/07/22 04/08/22 04/08/22 17:50 06:22 06:22 WBC 16.86 H RBC 4.23 L Hgb 12.8 L Hct 37.4 L MCV 88 MCH 30.3 MCHC 34.2 RDW 14.2 H Plt Count 245 MPV 11.1 H Immature Gran % 1.8 Neutrophils % 75.1 Lymphocytes % 12.3 Monocytes % 7.6 Eosinophils % 2.7 Basophils % 0.5 Nucleated RBC % 0.0 Absolute Neutrophils 12.66 H Absolute Lymphocytes 2.07 Absolute Monocytes 1.28 H Absolute Eosinophils 0.46 Absolute Basophils 0.08 Sodium 134 L Potassium 3.7 Chloride 103 Carbon Dioxide 21.5 Anion Gap 9.5 BUN 27 H Creatinine 0.8 Est GFR (CKD-EPI 2020) 95.21 Glucose 140 H Calcium 7.8 L Vancomycin Trough 14.7
--- NOTE | 2022-04-08 16:18 | CHAPLAIN ---
Dylan was up in the chair when I visited. He was pleasant and easily engaged in a conversation telling me that he moved from [place] to [place], [place], to [place], [place] and then into the [facility] where he lives know. He enjoys sitting on the porch of the [facility] with other residents there. .
[2022-04-08 20:03] VITALS: BP 145/77; PULSE 95; RESP 20; TEMP 37.3; O2SAT 97
[2022-04-08] MEDS: Gabapentin 600 MG TAB PO (20:51)
[2022-04-08] MEDS: traMADol 50 MG TAB 100 MG PO (20:51)
[2022-04-08] MEDS: diphenhydrAMINE 25 MG CAP 50 MG PO (20:51)
[2022-04-08] MEDS: traZODone 50 MG TAB PO (20:51)
[2022-04-08] MEDS: Acetaminophen 325 MG TAB PO (22:43)
[2022-04-09 03:48] VITALS: BP 109/54; PULSE 68; RESP 18; TEMP 35.1; O2SAT 100
[2022-04-09] MEDS: Normal Saline Flush 10 ML SYR IVP ×2 (04:04→07:45)
[2022-04-09] MEDS: IMIPENEM/CILASTATIN 500 MG in Normal Saline 100 ML 200 MG IVPB ×3 (04:04→15:17)
[2022-04-09 07:10] LABS: Abs Immature Grans 0.82 10^3/uL (0.0-0.06); Absolute Basophil Count 0.15 10^3/uL (0.0-0.2); Absolute Lymphocyte Count 2.89 10^3/uL (1.2-3.4); Basophils % 0.8; Eosinophils % 2.2; Immature Grans % 4.4; Lymphocytes % 15.6; Monocytes % 6.8; Neutrophils % 70.2; WBC 18.51 10^3/uL (4.4-10.8)
[2022-04-09 07:12] VITALS: BP 117/74; PULSE 93; RESP 18; TEMP 35.7; O2SAT 97
[2022-04-09 07:17] LABS: Absolute Eosinophil Count 0.41 10^3/uL (0.0-0.7); Absolute Monocyte Count 1.26 10^3/uL (0.1-0.8); Absolute Neutrophil Count 12.99 10^3/uL (1.2-6.7)
[2022-04-09 07:36] LABS: Anion Gap 11.7 mmol/L (3-11); BUN 22 mg/dL (7-18); CO2 22.3 mmol/L (21.0-32.0); Calcium 8.3 mg/dL (8.5-10.1); Chloride 102 mmol/L (98-107); Estimated GFR 80.97 (mL/min/1.73m2); Glucose 193 mg/dL (74-106); Potassium 3.6 mmol/L (3.5-5.1); Sodium 136 mmol/L (136-145)
[2022-04-09] MEDS: Atorvastatin 40 MG TAB 80 MG PO (07:44)
[2022-04-09] MEDS: Gabapentin 300 MG CAP PO ×2 (07:44→15:16)
[2022-04-09] MEDS: DULoxetine 30 MG CAP PO (07:44)
[2022-04-09] MEDS: Aspirin 81 MG CHEW PO (07:44)
[2022-04-09] MEDS: Celecoxib 200 MG CAP PO (07:44)
[2022-04-09] MEDS: Metoprolol CR 25 MG TABCR PO (07:44)
[2022-04-09] MEDS: Lisinopril 5 MG TAB 2.5 MG PO (07:45)
[2022-04-09] MEDS: metFORMIN 500 MG TAB 1000 MG PO (07:45)
[2022-04-09] MEDS: Insulin Aspart 300 UNITS/3 ML PEN SC ×2 (07:46→11:38)
[2022-04-09] MEDS: Enoxaparin 40 MG/0.4 ML SYR SC (07:46)
[2022-04-09] MEDS: Insulin Aspart 300 UNITS/3 ML PEN 35 UNITS SC ×2 (07:46→11:38)
[2022-04-09] MEDS: Lachydrin 12% LOTION 225 GM BTL TP (07:48)
--- NOTE | 2022-04-09 10:04 | PDOC.CMPRO ---
- If Service Date Differs Date of service: 04/09/22 Time of Service: 10:04 Care Management Progress Note S/O:Dylan was sitting up in his chair when CM met with him. He was pleasant and easily engaged with CM. He is being transitioned to SB-1 status for IV antibiotic therapy. He will need to complete a 2 week course which should end on 04/18/22. A; Dylan is a 72 year old man admitted on 04/05/22 with cellulitis P:Dylan will likely be discharged home with new home health services for wound care and possibly PT after completing a 2 week course of IV antibiotics. He will transition to SB-1 for the antibiotic therapy today. He will follow up with his community providers and plan of care and transport with friends/family. CM will offer support to Dylan and assess for additional discharge needs.
[2022-04-09 11:05] VITALS: BP 113/71; PULSE 96; RESP 18; TEMP 35.8; O2SAT 96
[2022-04-09] MEDS: Magnesium Oxide 400 MG TAB PO (11:35)
[2022-04-09] MEDS: cefTRIAXone 2 GM/50 ML BAG IVPB (11:35)
--- NOTE | 2022-04-09 15:07 | W.PM.DS.N ---
Date of service: 04/09/22 Time of Service: 15:07 DS: Diagnosis Discharge Diagnosis (1) Cellulitis of right foot: Status: Acute Asessment and Plan: Patient is discharged from acute hospital stay to swing bed status for completion of 14 days of antibiotic treatment. Currently is on ceftriaxone 2 g IV daily. (2) Non-healing wound of right heel: Status: Acute Asessment and Plan: Chronic nonhealing wound of his right heel. Patient has underlying peripheral arterial vascular disease and needs referral to vascular surgery upon discharge. No evidence of osteomyelitis on his MRI scan. No evidence of abscess or gas formation on either CT scan or MRI scan. (3) CAD (coronary artery disease): Status: Chronic Asessment and Plan: Stable coronary artery disease status post coronary artery bypass graft. Continue home medications for his ischemic cardiomyopathy including diuretics and Toprol-XL and lisinopril. (4) Diabetes mellitus type 2, insulin dependent: Asessment and Plan: Continue basal bolus insulin therapy and his metformin. (5) Dyslipidemia: Status: Acute Asessment and Plan: cont. atorvastatin (6) DVT prophylaxis: Status: Acute Asessment and Plan: cont. enoxaparin prophylaxis (7) Discharge planning issues: Status: Acute Asessment and Plan: dc to [facility] swing bed level I; final disposition dependent on his progression of his therapy and ability to perform ADL independently and his ability to bear weight and ambulate on his own. Discharge Plan Disposition Patient Disposition: [facility] SWING BED LEVEL 1 Condition: Improving Discharge Details Reason For Visit: Cellulitis, Sepsis Admit Date/Time: 04/05/22 13:44 Admit Provider: Bennett Zapata Attending Provider: Bennett Zapata Primary Care Provider: Taye Ron [facility] Course Hospital Course: Patient 72-year-old male with a PMH of DM2 on insulin, CAD history of CABG, RA, psoriasis, HTN, HLD, obesity, mitral regurgitation, ischemic cardiomyopathy who has had a chronic right heel ulcer that is failed to heal. This developed a few years ago after he had vein graft harvested for his CABG. His right heel has been intermittently infected but never completely healed over. Patient presented to the ED because of complaints of increasing redness and swelling in his right leg and difficulty bearing weight on his right foot. Evaluation in the ER included routine labs blood cultures and x-ray of his right foot. X-ray showed no osteomyelitis. He was noted to be febrile at 39.1 Celsius on admission and had elevated blood lactate 3.2 and a leukocytosis of 15,790. Blood cultures obtained eventually came back no growth. MRSA screen was performed and was negative. He was initially treated with cefepime and vancomycin. Eventually the vancomycin was discontinued he was switched to ceftriaxone 2 g IV daily. He was spiking fevers up to 39 degrees for the first couple days through April 06 when he became afebrile. Podiatry was not available as the new lock stitch channeler had yet to start at [facility]. However orthopedic consultation was obtained with Dr. Giles Lux regarding the patient's right heel ulcer. He did not recommend debridement at this time and feels that the heel ulcer was secondary to peripheral vascular disease and recommended that the patient be referred as outpatient to vascular surgery and referral [place] [facility] Lux did order CT scan of the leg that showed no focal abscess no pockets of gas or pockets of fluid. There is diffuse soft tissue edema in the subcutaneous tissue and in the musculature but no bony erosion. Subsequent MRI was performed of the lower extremity again showed no osteomyelitis but showed prominent diffuse subcutaneous edema as well as deeper edema involving the deep musculature of the plantar surface of foot. The original area of erythema and extended up to his knee from the ankle but over the course of his hospital treatment the erythema receded to just the medial malleoli are area. Pain was improving. Patient still had elevated leukocytosis but clinically was doing better was afebrile. Patient was felt to need continued IV antibiotics and was kept on ceftriaxone 2 g IV daily and was entered in swing bed status for completion of 14-day course of antibiotics. Wound care nurse was consulted for local treatment of his heel ulcer please see her note for details. Upon discharge from [facility] swing bed status he will be referred [place] [facility] [place] and to vascular surgery. A[place]EN was attempted but could not be obtained. Home Meds and New Rx's Prescriptions: No Action trazodone 50 mg tablet 50 mg PO DAILY Humira(CF) 40 mg/0.4 mL syringe kit 40 mg SC Q2W magnesium oxide 500 mg tablet 500 mg PO DAILY lisinopril 2.5 mg tablet 2.5 mg PO DAILY Qty: 90 3RF furosemide 40 mg tablet 20 mg PO DAILY cholecalciferol (vitamin D3) 1,000 unit capsule 1,000 unit PO DAILY metoprolol succinate 25 mg tablet extended release 24 hr 25 mg PO DAILY 90 Days Qty: 90 3RF spironolactone 25 mg tablet 50 mg PO DAILY omega-3 fatty acids-fish oil 1 EACH capsule 1 ea PO DAILY insulin aspart U-100 [Novolog PenFill U-100 Insulin] 100 unit/mL cartridge 35 unit subcut TID atorvastatin 80 mg tablet 80 mg PO DAILY Qty: 90 3RF nitroglycerin 0.3 mg tablet, sublingual 0.3 mg SL Q5M PRN (Reason: chest pain) Qty: 30 12RF Rx Instructions: do not exceed 3 doses per episode aspirin 81 MG tablet,chewable 81 mg PO DAILY AM gabapentin 600 MG tablet 300 mg PO TID Diabetes Health Formula 1 EACH tablet 1 ea PO DAILY AM metformin 1,000 mg Tablet 1,000 mg PO BID acetaminophen 500 mg Tablet 500 mg PO Q6H PRN Victoza 2-Yousuf 0.6 mg/0.1 mL (18 mg/3 mL) Pen Injector 1.8 mg subcut DAILY Levemir FlexTouch U-100 Insuln 100 unit/mL (3 mL) insulin pen 53 unit subcut QAM AND QHS Discharge Instructions Instructions: Cellulitis (DC) Activity:: Activity as Tolerated Equipment/Supplies:: No Equipment Needed Diet:: Carb Counting Discharge Orders Discharge Orders: Discharge Order (Routine); Ordered 04/09/22 Ordered By: Efrain Noel Discharge Data Discharge Date/Time-TO BE ENTERED AT DEPARTURE: 04/09/22 15:52 DS: Summary Time Spent with Patient providing and/or coordinating discharge services: Less than 30 minutes Status at Discharge Functional status at discharge: uses cane/walker Overall status at discharge: patient is not back to baseline Mental Status: mental status grossly normal Speech and Movement: speech and movement normal Mood: congruent mood Affect: normal affect Exam Psych Mental Status: mental status grossly normal Speech and Movement: speech and movement normal Mood: congruent mood Affect: normal affect DS: Data Vitals/I&O Vitals and I&O: Vital Signs Temperature 35.8 C L 04/09/22 11:05 Temperature Source Tympanic 04/09/22 11:05 Pulse 96 H 04/09/22 11:05 Pulse Rhythm Regular 04/09/22 09:42 Pulse 84 04/05/22 11:32 Respiratory Rate 18 04/09/22 11:05 Respiratory Effort Non-Labored 04/09/22 09:42 Respiratory Depth Deep 04/08/22 04:29 Respiratory Pattern Normal 04/09/22 09:42 Blood Pressure 113/71 04/09/22 11:05 Blood Pressure Mean 59 04/05/22 13:46 Blood Pressure Position Sitting 04/05/22 09:53 Pulse Oximetry 96 04/09/22 11:05 Oxygen Delivery Method Room Air 04/09/22 11:05 Oxygen Flow Rate 0 04/09/22 11:05 Pain Level 2 04/09/22 11:05 Comment 04/05/22 15:16 Intake & Output 04/08/22 04/09/22 04/09/22 23:59 11:59 23:59 Intake Total 200 / 1100 640 / 890 250 / 890 Balance 200 / 1100 640 / 890 250 / 890 Weight 130.7 kg Intake: IV 200 / 700 200 / 250 50 / 250 Oral 440 / 640 200 / 640 Other: Urine Appearance Clear Clear Comment Voided in toilet pT voides in toliet independently/ unmeasured Stool Size Large Stool Characteristics Soft Voiding Methods Toilet Data Completed and Pending Labs on day of discharge: Labs from last 24 hours 04/09/22 04/09/22 06:06 06:06 WBC 18.51 H Immature Gran % 4.4 Neutrophils % 70.2 Lymphocytes % 15.6 Monocytes % 6.8 Eosinophils % 2.2 Basophils % 0.8 Absolute Neutrophils 12.99 H Absolute Lymphocytes 2.89 Absolute Monocytes 1.26 H Absolute Eosinophils 0.41 Absolute Basophils 0.15 Sodium 136 Potassium 3.6 Chloride 102 Carbon Dioxide 22.3 Anion Gap 11.7 H BUN 22 H Creatinine 1.0 Est GFR (CKD-EPI 2020) 80.97 Glucose 193 H Calcium 8.3 L Magnesium 2.0 Preliminary micro results at discharge 04/05/22 12:23 Blood Culture - Preliminary Blood NO GROWTH 96 HOURS 04/05/22 10:10 Blood Culture - Preliminary Blood NO GROWTH 96 HOURS PFSH All Active Problems (Updated 04/10/22 @ 00:01 by BHAVIN ALEMAN) DVT prophylaxis (Acute) Discharge planning issues (Acute) Non-healing wound of right heel (Acute) Cellulitis of right foot (Acute) S/P CABG x 3 (Acute ~01/31/19) Dyslipidemia (Acute) Hypertension (Chronic) Ischemic cardiomyopathy (Acute) CAD (coronary artery disease) (Chronic) Tubular adenoma (Acute 05/12/15) Medical History (Updated 04/10/22 @ 00:01 by BHAVIN ALEMAN) 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, insulin dependent Mitral regurgitation Social History Smoking/Tobacco Use Status: Former Tobacco Use Quit Date: 08/08/95 Pack-years: 60 Tobacco: How many years used: 30 Smoking risk assessment performed?: Yes Alcohol Intake: former Drug use: Never Substance use type: does not use Housing: apartment current occupation: retired Do you feel safe at home: Yes Do you feel safe in your relationship?: Yes
[2022-04-09 15:41] VITALS: BP 114/72; PULSE 95; RESP 18; TEMP 35.8; O2SAT 98
--- NOTE | 2022-04-09 16:42 | W.ANESVAS ---
Midline Placement Date Performed: 04/09/22 Procedure Time: 16:42 Requesting Provider: Efrain Noel Procedure Location: Med/Surg Sedation Given (Indicate Dose Given): No Sedation given Patient Mental Status: Awake Sterility: Hand Hygiene, Surgical Cap, Surgical Mask, Sterile Gloves and Chlorhexidine Laterality: Right Insertion Site: Basilic Midline Device: PowerGlide Pro 18G Catheter Length: 10 cm Midline Procedure Procedure: 1% Lidocaine to skin and subcutaneous tissue with 25g needle, Vessel accessed with needle, Vessel accessed with catheter over needle, Guidewire placed with ease and Guidewire removed Dressing: Tegaderm Applied and Statlock Applied Blood Return: Present Flushes: Easily Ultrasound: Sterile probe cover and gel used Ultrasound Image Saved?: Yes Number of Attempts (See previous attempts in note section): 3 Procedure Tolerated: No Complications and Patient tolerated well Procedure Outcome: Successful Procedure Comment:: First 2 attempts not in vessel. final attempt with good blood return. Performed By: Durga Tamayo
--- NOTE | 2022-04-14 18:40 | PT.INDS ---
Date of service: 04/14/22 PT Notes Visit Reasons: Cellulitis, Sepsis Physical Therapy Inpatient Discharge Summary Date: 04/14/22 Dates of service: 04/10/2022 through 04/14/2022 This is a clinical summary of care provided for the duration of dates listed above. No charge was made in the completion of this documentation Referring Doctor:? Dr. Noel PT Orders: PT CONSULT: extended stay- weakness Precautions: none Patient Profile/Admitting Diagnosis:??Patient admitted for medical management of RLE cellulitis. Patient remaining in hospital on Swing Bed level of care for antibiotic treatment. PMHX: Sepsis (Acute) DVT prophylaxis (Acute) Discharge planning issues (Acute) Non-healing wound of right heel (Acute) Cellulitis of right foot (Acute) S/P CABG x 3 (Acute ~01/31/19) Dyslipidemia (Acute) Hypertension (Chronic) Ischemic cardiomyopathy (Acute) CAD (coronary artery disease) (Chronic) Tubular adenoma (Acute 05/12/15) Medical History? 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 Had been driving for RCT prior to admission. Equipment Owned/DME: none Subjective: NT. See most recent PATTERN GRADER CUTTER notes. Objective:? General Observation: Resting in chair, IV in LUE. Mental Status: A&Ox3. Pleasant and cooperative. Pain: 9/10 in standing ROM: Right Upper Extremity: WFL Left Upper Extremity: WFL Right Lower Extremity: WFL Left Lower Extremity: WFL Strength: Right Upper Extremity: Shoulder flexion 4/5. Biceps 4+/5. Triceps 4/5. Shoulder IR 4/5. Shoulder ER 4/5. Left Upper Extremity:? Shoulder flexion 4/5. Biceps 4+/5. Triceps 4/5. Shoulder IR 4/5. Shoulder ER 4/5. Right Lower Extremity: Grossly WFL Left Lower Extremity: Grossly WFL Bed Mobility/Transfers: sit-stand: supervision stand-sit: supervision Gait:? Ambulates 6' with FWW, toe touch WBing on the right. Walker is set quite high, and is adjusted for patient height. Distance limited by RLE pain. Balance:? Static Sitting: normal Dynamic Sitting: normal Static Standing: fair Dynamic Standing: fair Assessment:?? Patient's progress has been limited by continued pain in R LE due to infection. Patient is a 72 year old male referred to physical therapy services with the diagnosis of right LE cellulitis.? Patient presents with clinical signs and symptoms consistent with diagnosis, with associated limitations in mobility. He currently demonstrates the following impairment level findings: 1. RLE pain 2. decreased LE strength 3. decreased activity tolerance ?Impairments are contributing to the following functional limitations: 1. limited ability to ambulate 2. decreased activity tolerance Goals: Goals X1 week 1. Supine-Sit : independent NOT MET 2. Sit-Supine : independent NOT MET 3. Sit-Stand : independent NOT MET 4. Stand-Sit: independent NOT MET 5. Bed-Chair : independent with FWW NOT MET 6. Chair-Bed : independent with FWW NOT MET 7. Gait : supervision with FWW x 150' NOT MET 8. Stairs : supervision, bilat rails, 5 steps NOT MET 9. Independent with home exercise program NOT MET DISCHARGE RECOMMENDATIONS: ?Home with outpatient PT if needed TREATMENT CODE/TIME: NC Thank you for the opportunity to participate in the care of this patient. Ivory Martinez PT, DPT, CLT [facility] [place], [place]
== END 2022-04-09 15:52 | disposition swing bed (61) | DRG 603 ==
LOC: ER 14:24 → MS 14:51
PROVIDERS: Internal Medicine; Nurse Practitioner Family; Admitting Provider Family Medicine; Emergency Provider Physician Assistant; PCP Family Medicine; Visit Provider Family Medicine
DX: L03.115 Cellulitis of right lower limb (principal); Z68.42 Body mass index [BMI] 45.0-49.9, adult; E78.5 Hyperlipidemia, unspecified; I10 Essential (primary) hypertension; I25.5 Ischemic cardiomyopathy; I34.0 Nonrheumatic mitral (valve) insufficiency; E11.9 Type 2 diabetes mellitus without complications; I25.10 Atherosclerotic heart disease of native coronary artery without angina pectoris; I73.9 Peripheral vascular disease, unspecified; Z79.4 Long term (current) use of insulin; M06.9 Rheumatoid arthritis, unspecified; F32.A Depression, unspecified; E66.9 Obesity, unspecified; G47.30 Sleep apnea, unspecified; L40.9 Psoriasis, unspecified; Z79.84 Long term (current) use of oral hypoglycemic drugs; Z79.82 Long term (current) use of aspirin; Z95.1 Presence of aortocoronary bypass graft; S91.301S Unspecified open wound, right foot, sequela; X58.XXXS Exposure to other specified factors, sequela
CPT/HCPCS: 36415; 76942; 80048; 80053; 82947; 84145; 85048; 85652; 87040; 87081; 87635; 96361; 96365; 96366; 96367; 99223; 99284; 99285; J1650; 73650; 73701; 73723; 80202; 81003; 83036; 83605; 83735; 85007; 85025; 86140; 99231; 99232; 99238; J0743; J1885; J3490

== ENCOUNTER 2022-04-09 15:33 | Inpatient (IN) | payer MEDICARE, MEDICAID, SELFPAY ==
--- NOTE | 2022-04-09 14:41 | CM.SWINGPC ---
- If Service Date Differs Date of service: 04/09/22 Time of Service: 14:41 Swingbed Plan of Care Plan of care: SWING BED PROGRAM ACTIVITIES/DISCHARGE PLAN OF CARE ACTIVITIES PLAN Date:04/09/22 Identified Need:Individualized Activity Plan Intervention/Plan: Dylan has TV in his room which he enjoys watching. The activity cart items will be offered as well as Reiki and pet and music therapy when available. Dylan also enjoys visiting with family, friends and staff. Initials [facility] DISCHARGE PLAN Date: 04/09/22 Identified Need: Safe Discharge Plan Intervention/Plan: Dylan will be discharged home with new home health services for nursing, PT and wound care. He will follow up with his community providers and plan of care and transport with family. CM will continue to offer support to Dylan and assess for ongoing discharge concerns. Initials [facility]
--- NOTE | 2022-04-09 14:53 | CM.SBPSYCH ---
- If Service Date Differs Date of service: 04/09/22 Time of Service: 14:53 SB Psychosocial/Act.Assessment - Hospital Admission Admission Date: 04/05/22 Admission From:: ED Diagnosis:: Cellulitis and sepsis - Swing Bed Admission Swing Bed Admit Date:: 04/09/22 Swing Bed Level of Care: Level 1/SNF - Social Supports PREVIOUS FUNCTIONAL STATUS/SOCIAL/FAMILY SUPPORTS:: Carlos, who is called Dylan, lives alone in an apartment at the [facility]. He has a son and a daughter. His daughter lives close by and is supportive of his needs and his son lives in [place]. 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 Since his foot became infected last week, he has been using a walker, but normally does not need any assistive devices. - Prior to Admission Living Arrangements/Environment Prior to Admission:: Lives alone at [facility] - Education Highest Grade Completed:: 12 Where did you attend School:: [place], [place] Special Education/Training:: received marine equipment research engineer training and advanced computerized marine equipment research engineer education through his employer [employer] - Work History Employment Status:: retired - [place]: No 's Spouse: No - Benefits Financial: Social Security, Other Pension - [employer] Active Baptism Member:: No - Advance Directives for Healthcare Advance Directives for Healthcare: Advance Directives - Interests Crafts:: did woodworking in the past Table Games:: Skipbo Music:: likes all music TV/Movies:: likes reality TV shows and how to shows especially to do with motors Reading:: unable to read much due to poor vision Other Activities:: Dylan loves to drive - Present Functional Status Physical Abilities:: limited by leg issues currently Cognitive:: good Communication:: good Sensory Systems: wears glasses Behavior:: appropriate - Medical History PAST MEDICAL HISTORY/PAST SURGICAL HISTORY:: All Active Problems (Updated 04/05/22 @ 19:55 by Bennett Zapata MD). Cellulitis of right foot (Acute). S/P CABG x 3 (Acute ~01/31/19). Dyslipidemia (Acute). Hypertension (Chronic). Ischemic cardiomyopathy (Acute). CAD (coronary artery disease) (Chronic). Tubular adenoma (Acute 05/12/15). Medical History (Updated 04/05/22 @ 19:55 by Bennett Zapata MD). Arteriosclerotic heart disease (ASHD). Diabetes mellitus type 2, insulin dependent. Mitral regurgitation - Admission Data Reason for Swing Bed Admission:: IV antibiotis Discharge Plan:: home with new home health services for RN, PT and wound care Business Account Specialist: Suha Espinosa Date Assessment was completed:: 04/09/22
--- NOTE | 2022-04-09 15:32 | W.PM.HP.N ---
Date of service: 04/09/22 Time of Service: 15:32 Assessment and Plan Assessment and plan (1) Cellulitis of right foot: Status: Acute Assessment and plan: Continue high-dose ceftriaxone 2 g IV daily. Monitor labs weekly, resume physical therapy (2) Non-healing wound of right heel: Status: Acute Assessment and plan: Per orthopedic surgeon no need for debridement of the heel as this is a chronic dry crusted callused ulcer. He feels that referral to vascular surgeon [place] [facility] would be appropriate upon discharge. Primary issue is his poor peripheral arterial disease which is contributing to his infection and failure of his wound to heal properly (3) Hypertension: Status: Chronic Assessment and plan: BP well controlled continue his metoprolol XL along with aspirin lactone and a 6 for his cardiomyopathy. Qualifiers: Hypertension type: essential hypertension Qualified Code(s): I10 - Essential (primary) hypertension (4) Discharge planning issues: Status: Acute Assessment and plan: Disposition will be determined by his progression while on swing bed status. (5) Diabetes mellitus type 2, insulin dependent: Assessment and plan: continue basal bolus insulin treatment with monitor blood sugars before meals and at bedtime (6) DVT prophylaxis: Status: Acute Assessment and plan: Continue enoxaparin for DVT prophylaxis History of Present Illness History of Present Illness Chief Complaint: left leg cellulitis Narrative: 72-year-old male with past medical history of DM 2 on insulin, CAD history of CABG, RA, psoriasis, HTN, HLD, obesity, mitral regurgitation presenting with redness in the right foot up to his knee. He was eval by his PCP sent to the ED. He has a chronic right heel wound that started a few years ago after previous vein harvest for his CABG. Heel wound has been intermittently infected. Patient's had trouble with weightbearing on the right foot. Evaluation in the ED demonstrated leukocytosis of 15,790. X-ray of the right heel showed no osteomyelitis. He was febrile on admission with 39.1 Celsius and elevated blood lactate 3.2. He was admitted for parenteral antibiotics. Blood cultures came back no growth. MRSA screen was negative for MRSA. Patient was initially treated with cefepime and vancomycin. Patient continued to spike fevers up to 39 degrees for the first couple days through April 06 and then became afebrile thereafter. Consultation was obtained with Dr. Giles Lux from orthopedics regarding his right heel ulcer. No podiatry was available at this time. Dr. Lux did not recommend debridement and felt that the failure of the heel ulcer to close up was secondary to peripheral vascular disease he recommended outpatient referral to vascular surgery and [place] [facility] [place] of the leg was performed looking for any focal abscess. No abscess was seen there is diffuse soft tissue edema in the subcutaneous tissues and lower extremity but no erosive or bony destructive lesions were seen and no focal abscess. Subsequently MRI scan was performed of the lower extremity and again showed no osteomyelitis but showed prominent diffuse subcutaneous edema as well as deeper edema involvement of the deep musculature on the plantar surface of foot exhibiting abnormal signal and enhancement following contrast injection. No obvious gas formation soft tissues and no fractures or Charcot arthropathy of the foot. Vancomycin was discontinued and he was maintained on ceftriaxone 2 g IV daily. Pain was treated with celecoxib. The area of original erythema the leg receded to some residual area around the medial malleolus. Patient is now admitted on swing bed status for completion of 2-week course of ceftriaxone 2 g IV daily. Weekly labs to be monitored including BMP, CBC, sed rate and CRP. Patient will continue to receive physical therapy. Wound care nurse was consulted see her note for details. Review of Systems All systems reviewed & are unremarkable except as noted in HPI and below PFSH All Active Problems (Updated 04/10/22 @ 00:01 by BHAVIN ALEMAN) DVT prophylaxis (Acute) Discharge planning issues (Acute) Non-healing wound of right heel (Acute) Cellulitis of right foot (Acute) S/P CABG x 3 (Acute ~01/31/19) Dyslipidemia (Acute) Hypertension (Chronic) Ischemic cardiomyopathy (Acute) CAD (coronary artery disease) (Chronic) Tubular adenoma (Acute 05/12/15) Medical History (Updated 04/10/22 @ 00:01 by BHAVIN ALEMAN) 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, insulin dependent Mitral regurgitation Social History Smoking/Tobacco Use Status: Former Tobacco Use Quit Date: 08/08/95 Pack-years: 60 Tobacco: How many years used: 30 Smoking risk assessment performed?: Yes Alcohol Intake: former Drug use: Never Substance use type: does not use Housing: apartment current occupation: retired Do you feel safe at home: Yes Do you feel safe in your relationship?: Yes Meds Allergies and Home Medications Allergies Allergy/AdvReac Type Severity Reaction Status Date / Time shellfish derived Allergy Severe Hives Verified 04/05/22 09:57 bee pollen Allergy Mild Anaphylaxsi Verified 04/05/22 09:57 s methotrexate [Methotrexate] Allergy Unknown Verified 04/05/22 09:57 Home Medications Medication Instructions Recorded Confirmed Type aspirin 81 mg chewable tablet 81 mg PO DAILY AM 04/07/13 04/09/22 History gabapentin 600 mg tablet 300 mg PO TID 04/07/13 04/09/22 History multivit with min-folic 1 ea PO DAILY AM 04/07/13 04/09/22 History acid-lutein 500 mcg-250 mcg tablet (Diabetes Health Formula) omega-3 fatty acids-fish oil 300 1 ea PO DAILY 03/31/15 04/09/22 History mg-1,000 mg capsule metformin 1,000 mg tablet 1,000 mg PO BID 05/22/18 04/09/22 History trazodone 50 mg tablet 50 mg PO DAILY 07/06/18 04/09/22 History acetaminophen 500 mg tablet 500 mg PO Q6H PRN 01/26/19 04/09/22 History liraglutide 0.6 mg/0.1 mL (18 mg/3 1.8 mg subcut DAILY 01/26/19 04/09/22 History mL) subcutaneous pen injector (Victoza 2-Yousuf) cholecalciferol (vitamin D3) 25 1,000 unit PO DAILY 03/16/19 04/09/22 History mcg (1,000 unit) capsule metoprolol succinate 25 mg 25 mg PO DAILY 90 days #90 tabs 03/16/19 04/09/22 Rx tablet,extended release 24 hr adalimumab 40 mg/0.4 mL 40 mg subcut Q2W 05/10/19 04/09/22 History subcutaneous syringe kit (Humira(CF)) insulin aspart U-100 100 unit/mL 35 unit subcut TID 05/10/19 04/09/22 History subcutaneous cartridge (Novolog PenFill U-100 Insulin aspart) lisinopril 2.5 mg tablet 2.5 mg PO DAILY Blood Pressure #90 05/10/19 04/09/22 Rx tabs magnesium oxide 500 mg tablet 500 mg PO DAILY 05/10/19 04/09/22 History insulin detemir U-100 100 unit/mL 53 unit subcut QAM AND QHS 11/13/19 04/09/22 History (3 mL) subcutaneous pen (Levemir FlexTouch U-100 Insulin) spironolactone 25 mg tablet 50 mg PO DAILY 11/13/19 04/09/22 History atorvastatin 80 mg tablet 80 mg PO DAILY #90 tabs 11/26/19 04/09/22 Rx nitroglycerin 0.3 mg sublingual 0.3 mg sublingual Q5M PRN chest 12/04/19 04/09/22 Rx tablet pain #30 tabs furosemide 40 mg tablet 20 mg PO DAILY 05/21/21 04/09/22 History Exam Narrative Exam Narrative: Const General: cooperative and no acute distress Nutritional Appearance: obese Orientation: alert and oriented x3 HENMT Head: normal to inspection, normocephalic and atraumatic Ears: hearing grossly normal bilaterally and external ears normal General nose exam: external nose normal and nares normal Face and sinus: normal facial exam and face symmetric Mouth: oral mucosae normal Eyes General: appearance normal, both eyes and all related structures Sclera: sclerae normal EOM: no movement deficit Neck Neck: normal visual inspection, full ROM, no lymphadenopathy, trachea midline, supple and no JVD Thyroid: thyroid normal Carotids: normal carotid upstroke Chest Chest: normal inspection of the chest and normal palpation of entire chest wall Resp Effort & Inspection: normal respiratory effort Auscultation: clear to auscultation bilaterally Cardio Jugular venous pressure: no JVD Rate: regular rate Rhythm: regular rhythm Heart Sounds: S1 normal and S2 normal Other: Nonpalpable pedal pulses in right foot but obtainable by Doppler, palpable pedal pulses in left foot GI Inspection: obesity Palpation: soft and nontender Auscultation: normal bowel sounds Rectal Exam: deferred Back/Spine/Pelvis Thoracic/Lumbar Spine: thoracic and lumbar spine normal to inspection Skin General skin exam: dry skin and erythema (Previously up to the knee but now limited to medial malleolus) Lesions: lesion noted (thickened, crack skin at right heel. No ulceration. No drainage. ) Neuro General: no focal motor deficits Cranial Nerves: CN's II-XI intact bilaterally and facial strength normal Speech: speech normal Motor: muscle tone normal throughout and strength 5/5 throughout Extrem General: no calf tenderness and edema (nonpitting) Psych Appearance: grossly normal Mental Status: mental status grossly normal Speech and Movement: speech and movement normal Affect: normal affect Attitude: cooperative Thought Process: normal Thought Content: normal Insight: insight good Judgment: judgment good Results Labs Result diagrams: 04/11/22 06:30
--- NOTE | 2022-04-09 16:43 | NUR.NOTE ---
Nursing Note: Pt transfered to Swing bed due to pt needs Abx infusion for cellulitis.
[2022-04-09 17:27] VITALS: BP 116/80; PULSE 91; RESP 18; TEMP 37.1; O2SAT 96
[2022-04-09] MEDS: metFORMIN 500 MG TAB 1000 MG PO (17:51)
[2022-04-09] MEDS: Celecoxib 200 MG CAP PO (19:24)
[2022-04-09] MEDS: Enoxaparin 40 MG/0.4 ML SYR SC (19:24)
[2022-04-09] MEDS: Lachydrin 12% LOTION 225 GM BTL TP (19:28)
[2022-04-09] MEDS: diphenhydrAMINE 25 MG CAP 50 MG PO (21:24)
[2022-04-09] MEDS: IMIPENEM/CILASTATIN 500 MG in Normal Saline 100 ML 200 MG IVPB (21:25)
[2022-04-09] MEDS: traZODone 50 MG TAB PO (21:25)
[2022-04-09] MEDS: Gabapentin 600 MG TAB PO (21:25)
[2022-04-09 22:57] VITALS: BP 106/69; PULSE 84; RESP 16; TEMP 36.4; O2SAT 96
[2022-04-10] MEDS: IMIPENEM/CILASTATIN 500 MG in Normal Saline 100 ML 200 MG IVPB ×4 (03:24→22:28)
[2022-04-10 07:35] VITALS: BP 109/76; PULSE 93; RESP 18; TEMP 36.2; O2SAT 98
[2022-04-10] MEDS: Atorvastatin 40 MG TAB 80 MG PO (08:00)
[2022-04-10] MEDS: Enoxaparin 40 MG/0.4 ML SYR SC ×2 (08:00→20:16)
[2022-04-10] MEDS: DULoxetine 30 MG CAP PO (08:00)
[2022-04-10] MEDS: Aspirin 81 MG CHEW PO (08:01)
[2022-04-10] MEDS: Lisinopril 5 MG TAB 2.5 MG PO (08:01)
[2022-04-10] MEDS: Metoprolol CR 25 MG TABCR PO (08:01)
[2022-04-10] MEDS: Celecoxib 200 MG CAP PO ×2 (08:01→20:16)
[2022-04-10] MEDS: Gabapentin 300 MG CAP PO ×2 (08:01→13:37)
[2022-04-10] MEDS: metFORMIN 500 MG TAB 1000 MG PO ×2 (08:01→17:51)
[2022-04-10] MEDS: Insulin Aspart 300 UNITS/3 ML PEN 35 UNITS SC ×2 (08:02→12:05)
[2022-04-10] MEDS: Insulin Aspart 300 UNITS/3 ML PEN SC ×2 (08:02→12:05)
[2022-04-10] MEDS: Lachydrin 12% LOTION 225 GM BTL TP ×2 (09:11→20:17)
[2022-04-10] MEDS: Magnesium Oxide 400 MG TAB PO (10:13)
--- NOTE | 2022-04-10 11:13 | PT.INIE ---
PT Notes Visit Reasons: Cellulitis Right Leg Inpatient Physical Therapy Evaluation Date: 04/10/22 Referring Doctor: Dr. Noel PT Orders: PT CONSULT: extended stay- weakness Precautions: none Patient Profile/Admitting Diagnosis: Patient admitted for medical management of RLE cellulitis. Patient remaining in hospital on Swing Bed level of care for antibiotic treatment. PMHX: Sepsis (Acute) DVT prophylaxis (Acute) Discharge planning issues (Acute) Non-healing wound of right heel (Acute) Cellulitis of right foot (Acute) S/P CABG x 3 (Acute ~01/31/19) Dyslipidemia (Acute) Hypertension (Chronic) Ischemic cardiomyopathy (Acute) CAD (coronary artery disease) (Chronic) Tubular adenoma (Acute 05/12/15) Medical History? 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, insulin dependent Mitral regurgitation Social History/Home Situation: Patient lives alone at [facility], but requires management of 5-6 steps to his apartment. Had been driving for RCT prior to admission. Equipment Owned/DME: none Subjective: Dylan states that his leg is more painful today than it had been. He has been walking only as far as the bathroom, stating he's limited by pain. He's having to use a walker to keep weight off the right foot, which is challenging as his right leg is generally his stronger leg. Objective: General Observation: Resting in chair, IV in LUE. Mental Status: A&Ox3. Pleasant and cooperative. Pain: 9/10 in standing ROM: Right Upper Extremity: WFL Left Upper Extremity: WFL Right Lower Extremity: WFL Left Lower Extremity: WFL Strength: Right Upper Extremity: Shoulder flexion 4/5. Biceps 4+/5. Triceps 4/5. Shoulder IR 4/5. Shoulder ER 4/5. Left Upper Extremity: Shoulder flexion 4/5. Biceps 4+/5. Triceps 4/5. Shoulder IR 4/5. Shoulder ER 4/5. Right Lower Extremity: Grossly WFL Left Lower Extremity: Grossly WFL Bed Mobility/Transfers: sit-stand: supervision stand-sit: supervision Gait: Ambulates 6' with FWW, toe touch WBing on the right. Walker is set quite high, and is adjusted for patient height. Distance limited by RLE pain. Balance: Static Sitting: normal Dynamic Sitting: normal Static Standing: fair Dynamic Standing: fair Special Tests: Mobility Limitations Standardized Measure [facility] AM-PAC 6 clicks Basic Mobility Inpatient Short Form: Raw Score: 20 CMS Score: 29% impairment Informed Consent/Education: Patient instructed in purpose of PT consult and plan of care. Treatment: Today's session consisted of evaluation, followed by treatment as noted below. Discussed appropriate treatment planning, with patient verbalizing agreement. [id number]: Patient instructed in exercise program for independent completion in his room. Provided with 3# hand weights for use for seated exercises as noted below: 1. seated march x 30 seconds 2. seated kick outs x 30 seconds 3. punch ups 3# 30 seconds 4. bicep curls 3# 30 seconds Assessment: Patient is a 72 year old male referred to physical therapy services with the diagnosis of right LE cellulitis. Patient presents with clinical signs and symptoms consistent with diagnosis, with associated limitations in mobility. He currently demonstrates the following impairment level findings: 1. RLE pain 2. decreased LE strength 3. decreased activity tolerance Impairments are contributing to the following functional limitations: 1. limited ability to ambulate 2. decreased activity tolerance Patient is assessed as Moderate [id number] complexity based on the following: History: Patient is a 72 year old male on Swing Bed status for antibiotic treatment for RLE cellutlits. His mobility is primarily limited by pain, but patient is at high risk for development of deconditioning due to prolonged hospital stay and underlying comorbidities. He'll benefit from infrequent PT intervention to progress his strengthening program, with re-introduction of weight bearing activity as his pain allows. Examination: functional limitations as noted above Presentation: evolving Decision Making: moderate complexity Goals: Goals X1 week 1. Supine-Sit : independent 2. Sit-Supine : independent 3. Sit-Stand : independent 4. Stand-Sit: independent 5. Bed-Chair : independent with FWW 6. Chair-Bed : independent with FWW 7. Gait : supervision with FWW x 150' 8. Stairs : supervision, bilat rails, 5 steps 9. Independent with home exercise program Plan of Care/Treatment Plan: 2x/week x 6 weeks. Plan of care has been reviewed with the COLLECTION CARD CLERK providing the service under Physical Therapy direction. Initiate Physical Therapy intervention for strengthening, bed mobility, transfers, gait, stairs, balance training, use of assistive device. DISCHARGE RECOMMENDATIONS: Home with outpatient PT if needed TREATMENT CODE/TIME: 12137, 85095 (11:30 - 11:55) Beryl Hernandez, PT, DPT [facility]
[2022-04-10] MEDS: cefTRIAXone 2 GM/50 ML BAG IVPB (13:36)
[2022-04-10 15:29] VITALS: BP 113/73; PULSE 100; RESP 18; TEMP 36.1; O2SAT 96
[2022-04-10] MEDS: traMADol 50 MG TAB 100 MG PO (15:33)
[2022-04-10] MEDS: Normal Saline Flush 10 ML SYR IVP ×2 (20:18→22:31)
[2022-04-10] MEDS: Acetaminophen 325 MG TAB 650 MG PO (20:38)
[2022-04-10 22:27] VITALS: BP 114/67; PULSE 90; RESP 16; TEMP 36.4; O2SAT 96
[2022-04-10] MEDS: diphenhydrAMINE 25 MG CAP 50 MG PO (22:30)
[2022-04-10] MEDS: Gabapentin 600 MG TAB PO (22:30)
[2022-04-10] MEDS: traZODone 50 MG TAB PO (22:30)
[2022-04-11] MEDS: IMIPENEM/CILASTATIN 500 MG in Normal Saline 100 ML 200 MG IVPB ×4 (03:58→22:11)
[2022-04-11 07:20] VITALS: BP 114/72; PULSE 95; RESP 20; TEMP 36.3; O2SAT 97
[2022-04-11 07:33] LABS: Platelet Count 417 10^3/uL (130-400)
[2022-04-11] MEDS: Enoxaparin 40 MG/0.4 ML SYR SC ×2 (08:16→20:09)
[2022-04-11] MEDS: Lachydrin 12% LOTION 225 GM BTL TP ×2 (08:16→20:24)
[2022-04-11] MEDS: Insulin Aspart 300 UNITS/3 ML PEN SC ×6 (08:17→16:57)
[2022-04-11] MEDS: Acetaminophen 325 MG TAB 650 MG PO (08:18)
[2022-04-11] MEDS: Lisinopril 5 MG TAB 2.5 MG PO (08:18)
[2022-04-11] MEDS: Aspirin 81 MG CHEW PO (08:19)
[2022-04-11] MEDS: Gabapentin 300 MG CAP PO ×2 (08:19→14:13)
[2022-04-11] MEDS: DULoxetine 30 MG CAP PO (08:19)
[2022-04-11] MEDS: Celecoxib 200 MG CAP PO ×2 (08:19→20:09)
[2022-04-11] MEDS: metFORMIN 500 MG TAB 1000 MG PO ×2 (08:19→16:25)
[2022-04-11] MEDS: Metoprolol CR 25 MG TABCR PO (08:19)
[2022-04-11] MEDS: Atorvastatin 40 MG TAB 80 MG PO (08:19)
[2022-04-11] MEDS: Magnesium Oxide 400 MG TAB PO (09:49)
[2022-04-11] MEDS: Normal Saline Flush 10 ML SYR IVP ×2 (09:49→16:25)
[2022-04-11] MEDS: traMADol 50 MG TAB 100 MG PO (10:33)
[2022-04-11] MEDS: cefTRIAXone 2 GM/50 ML BAG IVPB (12:39)
[2022-04-11 15:18] VITALS: BP 109/53; PULSE 74; RESP 20; TEMP 36.2; O2SAT 96
[2022-04-11] MEDS: diphenhydrAMINE 25 MG CAP 50 MG PO (22:09)
[2022-04-11] MEDS: Gabapentin 600 MG TAB PO (22:10)
[2022-04-11] MEDS: traZODone 50 MG TAB PO (22:10)
[2022-04-11 23:35] VITALS: BP 109/53; PULSE 74; RESP 18; TEMP 36.8; O2SAT 96
[2022-04-12] MEDS: IMIPENEM/CILASTATIN 500 MG in Normal Saline 100 ML 200 MG IVPB ×4 (04:47→21:25)
[2022-04-12] MEDS: Normal Saline Flush 10 ML SYR IVP ×5 (05:21→21:26)
[2022-04-12] MEDS: traMADol 50 MG TAB 100 MG PO ×2 (05:36→18:27)
[2022-04-12 06:09] LABS: Abs Immature Grans 1.43 10^3/uL (0.0-0.06); HCT 34.6 % (40.0-50.0); HGB 11.3 g/dL (13.5-17.5); MCHC 32.7 % (32.0-36.0); MPV 9.7 fL (8.0-11.0); Platelet Count 335 10^3/uL (130-400); RBC 3.77 10^6/uL (4.36-5.78); RDW 14.6 % (11.8-14.1); RDW-SD 49.7 fL; WBC 16.61 10^3/uL (4.4-10.8)
[2022-04-12 06:14] LABS: MCV 92 fL (80-95)
[2022-04-12 06:19] LABS: ESR 60 mm/hr (0-20)
[2022-04-12 06:26] LABS: Absolute Eosinophil Count 0.17 10^3/uL (0.0-0.7); Absolute Lymphocyte Count 2.33 10^3/uL (1.2-3.4); Absolute Monocyte Count 1.33 10^3/uL (0.1-0.8); Absolute Neutrophil Count 11.79 10^3/uL (1.2-6.7)
[2022-04-12 06:27] LABS: Diff Comment Manual Differential; Metamyelocytes % 3; Myelocytes % 3; RBC Morphology Normal
[2022-04-12 06:32] LABS: Anion Gap 8.1 mmol/L (3-11); BUN 18 mg/dL (7-18); C-Reactive Protein 1.14 mg/dL (0.0-0.3); CO2 25.9 mmol/L (21.0-32.0); CREATININE 0.8 mg/dL (0.70-1.30); Calcium 8.4 mg/dL (8.5-10.1); Chloride 106 mmol/L (98-107); Estimated GFR 95.21 (mL/min/1.73m2); Glucose 124 mg/dL (74-106); Magnesium 1.6 mg/dL (1.8-2.4); Potassium 4.5 mmol/L (3.5-5.1); Sodium 140 mmol/L (136-145)
[2022-04-12 06:47] LABS: Procalcitonin 0.1 ng/mL
[2022-04-12] MEDS: Lachydrin 12% LOTION 225 GM BTL TP ×2 (07:38→19:55)
[2022-04-12] MEDS: Celecoxib 200 MG CAP PO ×2 (07:39→19:53)
[2022-04-12] MEDS: metFORMIN 500 MG TAB 1000 MG PO ×2 (07:39→17:04)
[2022-04-12] MEDS: Enoxaparin 40 MG/0.4 ML SYR SC ×2 (07:39→19:52)
[2022-04-12] MEDS: Gabapentin 300 MG CAP PO ×2 (07:39→13:45)
[2022-04-12] MEDS: Acetaminophen 325 MG TAB 650 MG PO ×2 (07:39→19:53)
[2022-04-12] MEDS: DULoxetine 30 MG CAP PO (07:40)
[2022-04-12] MEDS: Lisinopril 5 MG TAB 2.5 MG PO (07:40)
[2022-04-12] MEDS: Atorvastatin 40 MG TAB 80 MG PO (07:40)
[2022-04-12] MEDS: Metoprolol CR 25 MG TABCR PO (07:40)
[2022-04-12] MEDS: Aspirin 81 MG CHEW PO (07:40)
[2022-04-12] MEDS: Insulin Aspart 300 UNITS/3 ML PEN SC ×3 (08:04→16:59)
[2022-04-12 08:16] VITALS: BP 111/64; PULSE 70; RESP 20; TEMP 36.2; O2SAT 96
[2022-04-12] MEDS: MAGNESIUM SULFATE 2 GM/50 ML BAG IVPB (09:28)
[2022-04-12] MEDS: Magnesium Oxide 400 MG TAB PO ×2 (10:08→19:53)
[2022-04-12] MEDS: cefTRIAXone 2 GM/50 ML BAG IVPB (11:57)
[2022-04-12 15:14] VITALS: BP 111/67; PULSE 64; RESP 17; TEMP 36.2; O2SAT 98
[2022-04-12] MEDS: diphenhydrAMINE 25 MG CAP 50 MG PO (21:24)
[2022-04-12] MEDS: Gabapentin 600 MG TAB PO (21:24)
[2022-04-12] MEDS: traZODone 50 MG TAB PO (21:24)
[2022-04-12 23:02] VITALS: BP 104/62; PULSE 61; RESP 19; TEMP 36.4; O2SAT 92
[2022-04-13] MEDS: IMIPENEM/CILASTATIN 500 MG in Normal Saline 100 ML 200 MG IVPB ×4 (03:23→20:50)
[2022-04-13] MEDS: Normal Saline Flush 10 ML SYR IVP ×4 (03:30→12:27)
[2022-04-13 07:15] VITALS: BP 115/71; PULSE 67; RESP 18; TEMP 36.1; O2SAT 97
[2022-04-13] MEDS: Enoxaparin 40 MG/0.4 ML SYR SC ×2 (07:47→20:49)
[2022-04-13] MEDS: Gabapentin 300 MG CAP PO ×2 (07:48→13:40)
[2022-04-13] MEDS: Celecoxib 200 MG CAP PO ×2 (07:48→20:51)
[2022-04-13] MEDS: Atorvastatin 40 MG TAB 80 MG PO (07:48)
[2022-04-13] MEDS: DULoxetine 30 MG CAP PO (07:48)
[2022-04-13] MEDS: Metoprolol CR 25 MG TABCR PO (07:48)
[2022-04-13] MEDS: Lisinopril 5 MG TAB 2.5 MG PO (07:49)
[2022-04-13] MEDS: metFORMIN 500 MG TAB 1000 MG PO ×2 (07:49→16:24)
[2022-04-13] MEDS: Aspirin 81 MG CHEW PO (07:49)
[2022-04-13] MEDS: Lachydrin 12% LOTION 225 GM BTL TP ×2 (09:02→20:51)
[2022-04-13] MEDS: Magnesium Oxide 400 MG TAB PO ×2 (11:00→20:51)
[2022-04-13] MEDS: Acetaminophen 325 MG TAB 650 MG PO ×2 (11:00→21:18)
[2022-04-13] MEDS: cefTRIAXone 2 GM/50 ML BAG IVPB (12:27)
[2022-04-13] MEDS: Insulin Aspart 300 UNITS/3 ML PEN SC ×2 (12:28→17:42)
--- NOTE | 2022-04-13 13:33 | W.INDIABCONS ---
Date of service: 04/13/22 Time of Service: 13:33 Diabetes Inpatient Consult Reason for Visit: DM DESCRIPTION/ASSESSMENT: 72 year old male admitted with right heel ulcer (osteo r/o) with PMH: DM2, CAB, CABG, RA, HTN, HLD, morbid obesity. Home DM meds: metformin 1000 mg BID, Victoza 1.8 mg qd, aspart 35 u TID, detemir 50 u BID. Most recent A1c (7.1%) at target. Following diabetic diet with adequate intake. Not considered at nutritional risk or at need for diabetes inpatient education INTERVENTION: would benefit from outpatient weight management education. PLAN: Will monitor po intake, labs, weight Time Spent in Nutritional Counseling and Treatment: 0
[2022-04-13] MEDS: traMADol 50 MG TAB 100 MG PO (15:16)
[2022-04-13 15:42] VITALS: BP 113/67; PULSE 61; RESP 18; TEMP 36.4; O2SAT 97
[2022-04-13] MEDS: traZODone 50 MG TAB PO (21:18)
[2022-04-13] MEDS: Gabapentin 600 MG TAB PO (21:18)
[2022-04-13] MEDS: diphenhydrAMINE 25 MG CAP 50 MG PO (21:18)
[2022-04-13 23:30] VITALS: BP 113/65; PULSE 60; RESP 18; TEMP 36.6; O2SAT 97
[2022-04-14] MEDS: IMIPENEM/CILASTATIN 500 MG in Normal Saline 100 ML 200 MG IVPB ×4 (03:54→20:21)
[2022-04-14] MEDS: Normal Saline Flush 10 ML SYR IVP ×2 (06:24→17:12)
[2022-04-14 07:04] LABS: Platelet Count 332 10^3/uL (130-400)
[2022-04-14 08:04] VITALS: BP 130/82; PULSE 64; RESP 18; TEMP 35; O2SAT 95
[2022-04-14] MEDS: Enoxaparin 40 MG/0.4 ML SYR SC ×2 (08:05→20:20)
[2022-04-14] MEDS: Metoprolol CR 25 MG TABCR PO (08:06)
[2022-04-14] MEDS: Celecoxib 200 MG CAP PO ×2 (08:06→20:20)
[2022-04-14] MEDS: DULoxetine 30 MG CAP PO (08:06)
[2022-04-14] MEDS: Lisinopril 5 MG TAB 2.5 MG PO (08:06)
[2022-04-14] MEDS: Aspirin 81 MG CHEW PO (08:06)
[2022-04-14] MEDS: Atorvastatin 40 MG TAB 80 MG PO (08:07)
[2022-04-14] MEDS: Gabapentin 300 MG CAP PO ×2 (08:07→13:45)
[2022-04-14] MEDS: metFORMIN 500 MG TAB 1000 MG PO ×2 (08:07→17:12)
[2022-04-14] MEDS: Lachydrin 12% LOTION 225 GM BTL TP ×2 (08:08→20:30)
[2022-04-14] MEDS: Insulin Aspart 300 UNITS/3 ML PEN SC ×2 (08:11→12:12)
--- NOTE | 2022-04-14 09:36 | PDOC.CMACT ---
- If Service Date Differs Date of service: 04/14/22 Time of Service: 09:36 Care Management Activity Note S/O:Dylan is a very pleasant gentleman who is in SB-1 status to complete a course of IV antibiotics. He is very social and enjoys visiting with family, friends and staff. Dylan watches tv and would like reikii, pet therapy and music therapy if they become available. Dylan is limited by poor vision so routine items from the activity cart are not appropriate for him. P:Dylan will be discharged home with new home health services for nursing and wound care. He will follow up with his community providers and plan of care and transport with friends.
[2022-04-14] MEDS: Magnesium Oxide 400 MG TAB PO ×2 (10:21→20:20)
[2022-04-14] MEDS: cefTRIAXone 2 GM/50 ML BAG IVPB (11:43)
--- NOTE | 2022-04-14 11:43 | PT.INTREAT ---
PT Notes Visit Reasons: Cellulitis Right Leg Inpatient Physical Therapy Treatment Note [facility] Date: 04/14/22 SUBJECTIVE: Carlos states that he has been compliant with his HEP without any complaints. Refuses to ambulate, stating he is not allowed OBJECTIVE: [] PAIN: c/o right foot pain BED MOBILITY/TRANSFERS pt already seated in recliner THEREX: upgraded HEP to include SLR, hip ab/add and AP ASSESSMENT: tolerated session fair. C/o right foot pain during ex, encouragement required and reassurance to move, exercise and walk within his pain tolerances. PLAN: will continue to progress HEP, as well as ambulation and functional mobility to tolerance following PT POC. TREATMENT CODE/TIME: 15 min in am [id number]
[2022-04-14 14:39] VITALS: BP 131/76; PULSE 65; RESP 14; TEMP 37.2; O2SAT 97
[2022-04-14] MEDS: Insulin Aspart 300 UNITS/3 ML PEN 7 UNITS SC (17:32)
[2022-04-14] MEDS: diphenhydrAMINE 25 MG CAP 50 MG PO (21:35)
[2022-04-14] MEDS: Gabapentin 600 MG TAB PO (21:35)
[2022-04-14] MEDS: Acetaminophen 325 MG TAB 650 MG PO (21:35)
[2022-04-14] MEDS: traZODone 50 MG TAB PO (21:35)
[2022-04-14 22:59] VITALS: BP 127/59; PULSE 68; RESP 20; TEMP 36.6; O2SAT 95
[2022-04-15] MEDS: IMIPENEM/CILASTATIN 500 MG in Normal Saline 100 ML 200 MG IVPB ×4 (03:38→22:29)
[2022-04-15 07:33] VITALS: BP 118/70; PULSE 65; RESP 18; TEMP 35.8; O2SAT 95
[2022-04-15] MEDS: Atorvastatin 40 MG TAB 80 MG PO (07:35)
[2022-04-15] MEDS: Aspirin 81 MG CHEW PO (07:35)
[2022-04-15] MEDS: Celecoxib 200 MG CAP PO ×2 (07:35→19:33)
[2022-04-15] MEDS: Lisinopril 5 MG TAB 2.5 MG PO (07:35)
[2022-04-15] MEDS: Gabapentin 300 MG CAP PO ×2 (07:36→13:49)
[2022-04-15] MEDS: DULoxetine 30 MG CAP PO (07:36)
[2022-04-15] MEDS: metFORMIN 500 MG TAB 1000 MG PO ×2 (07:36→17:37)
[2022-04-15] MEDS: Metoprolol CR 25 MG TABCR PO (07:36)
[2022-04-15] MEDS: Enoxaparin 40 MG/0.4 ML SYR SC ×2 (07:36→19:33)
[2022-04-15] MEDS: Normal Saline Flush 10 ML SYR IVP ×3 (07:37→11:24)
[2022-04-15] MEDS: Lachydrin 12% LOTION 225 GM BTL TP ×2 (07:50→19:35)
[2022-04-15] MEDS: traMADol 50 MG TAB 100 MG PO ×2 (08:43→18:28)
[2022-04-15] MEDS: Insulin Aspart 300 UNITS/3 ML PEN SC ×3 (08:52→17:39)
[2022-04-15] MEDS: cefTRIAXone 2 GM/50 ML BAG IVPB (11:12)
[2022-04-15] MEDS: Magnesium Oxide 400 MG TAB PO ×2 (11:12→19:33)
[2022-04-15] MEDS: Normal Saline 500 ML 30 ML IV (11:15)
[2022-04-15 19:55] VITALS: BP 130/89; PULSE 68; RESP 18; TEMP 36.2; O2SAT 96
[2022-04-15] MEDS: diphenhydrAMINE 25 MG CAP 50 MG PO (20:57)
[2022-04-15] MEDS: traZODone 50 MG TAB PO (20:57)
[2022-04-15] MEDS: Gabapentin 600 MG TAB PO (20:57)
[2022-04-15 23:29] VITALS: BP 137/82; PULSE 70; RESP 18; TEMP 36.1; O2SAT 95
--- NOTE | 2022-04-16 | DI.MRI_ITS ---
Exam(s) MR LOWER JOINT RT WO/W EXAM: MR LOWER EXTREMITY RT WO/W CLINICAL HISTORY: RIGHT HEEL ULCER, cellulitis; r/o osteomyelitis. TECHNIQUE: Multiplanar multisequence MRI was performed. CONTRAST MATERIAL: IV Contrast: 20 mL of Dotarem contrast administered. COMPARISON: Priors available for comparison. FINDINGS: BONES/JOINTS: No fracture or contusion pattern. No bone lesions identified. The talar dome is smooth. The ankle mortise is maintained. No joint effusion is present. There is very mild edema in the dista l fibula. There is normal signal in the calcaneus. No evidence to suggest osteomyelitis. LIGAMENTS: The tibiofibular and calcaneofibular ligaments are intact. The talofibular ligaments are i ntact. The deltoid ligament is intact. The syndesmosis is unremarkable. Sinus tarsi is normal. MUSCULOTENDINOUS STRUCTURES: Achilles tendon: Unremarkable. Plantar fascia: Unremarkable. Anterior Extensor tendons: Unremarkable. Posterior Tibialis: Unremarkable. Flexor Digitorum longus: Unremarkable. Flexor Hallucis longus: Unremarkable. Peroneus longus: Unremarkable. Peroneus brevis:Unremarkable. SOFT TISSUES: No focal fluid collection is seen to suggest an abscess. There is a marker seen on the heel. No evidence of an ulcer or fluid collection is seen in this region. No abnormal enhancement is seen in this area. There is again seen edema in the soft tissues of the foot which appears grossl y unchanged. OTHER FINDINGS: None. ENHANCEMENT: IMPRESSION: 1. No subcutaneous fluid collection to suggest an abscess. No skin defect is seen to suggest an ulce r crater. 2. No findings to suggest osteomyelitis. 3. Persistent edema in the soft tissues of the foot which may represent cellulitis. DATA REPOSITORY:
[2022-04-16 06:43] LABS: Platelet Count 291 10^3/uL (130-400)
[2022-04-16 07:42] VITALS: BP 139/67; PULSE 60; RESP 20; TEMP 36.2; O2SAT 96
[2022-04-16 08:12] LABS: Abs Immature Grans 0.19 10^3/uL (0.0-0.06); Absolute Basophil Count 0.09 10^3/uL (0.0-0.2); Absolute Eosinophil Count 0.24 10^3/uL (0.0-0.7); Absolute Lymphocyte Count 3.22 10^3/uL (1.2-3.4); Basophils % 0.8; Eosinophils % 2.1; HCT 35.9 % (40.0-50.0); HGB 11.8 g/dL (13.5-17.5); Immature Grans % 1.7; Lymphocytes % 28.1; MCH 29.7 pg (27.0-33.0); MCHC 32.9 % (32.0-36.0); MCV 90 fL (80-95); Neutrophils % 60.3; RBC 3.97 10^6/uL (4.36-5.78); RDW 14.1 % (11.8-14.1); RDW-SD 46.3 fL; WBC 11.47 10^3/uL (4.4-10.8)
[2022-04-16 08:13] LABS: Absolute Neutrophil Count 6.92 10^3/uL (1.2-6.7)
[2022-04-16 08:17] LABS: Lab Add On Test DONE
[2022-04-16] MEDS: Normal Saline Flush 10 ML SYR IVP ×6 (08:18→23:42)
[2022-04-16] MEDS: Atorvastatin 40 MG TAB 80 MG PO (08:36)
[2022-04-16] MEDS: Celecoxib 200 MG CAP PO ×2 (08:36→20:23)
[2022-04-16] MEDS: Metoprolol CR 25 MG TABCR PO (08:36)
[2022-04-16] MEDS: DULoxetine 30 MG CAP PO (08:36)
[2022-04-16] MEDS: IMIPENEM/CILASTATIN 500 MG in Normal Saline 100 ML 200 MG IVPB ×3 (08:37→18:55)
[2022-04-16] MEDS: Lisinopril 5 MG TAB 2.5 MG PO (08:37)
[2022-04-16] MEDS: Aspirin 81 MG CHEW PO (08:37)
[2022-04-16] MEDS: Gabapentin 300 MG CAP PO ×2 (08:37→14:00)
[2022-04-16] MEDS: metFORMIN 500 MG TAB 1000 MG PO ×2 (08:37→16:48)
[2022-04-16] MEDS: Enoxaparin 40 MG/0.4 ML SYR SC ×2 (08:39→20:23)
[2022-04-16] MEDS: Insulin Aspart 300 UNITS/3 ML PEN SC ×3 (08:40→17:23)
[2022-04-16] MEDS: Lachydrin 12% LOTION 225 GM BTL TP ×2 (08:42→20:23)
[2022-04-16 08:45] LABS: Anion Gap 3.5 mmol/L (3-11); BUN 13 mg/dL (7-18); C-Reactive Protein 0.37 mg/dL (0.0-0.3); CO2 29.5 mmol/L (21.0-32.0); CREATININE 0.7 mg/dL (0.70-1.30); Calcium 8.7 mg/dL (8.5-10.1); Chloride 102 mmol/L (98-107); Estimated GFR 99.12 (mL/min/1.73m2); Glucose 80 mg/dL (74-106); Magnesium 1.6 mg/dL (1.8-2.4); Potassium 4.2 mmol/L (3.5-5.1); Sodium 135 mmol/L (136-145)
[2022-04-16 09:15] LABS: Procalcitonin < 0.1 ng/mL
[2022-04-16] MEDS: Magnesium Oxide 400 MG TAB PO ×2 (10:43→20:23)
--- NOTE | 2022-04-16 10:47 | W.ANESVAS ---
Midline Placement Date Performed: 04/08/22 Procedure Time: 15:30 Requesting Provider: Efrain Noel Procedure Location: Med/Surg (207) Sedation Given (Indicate Dose Given): No Sedation given Patient Mental Status: Awake Sterility: Hand Hygiene, Surgical Cap, Surgical Mask, Sterile Gloves, Sterile Drape/Sheet and Chlorhexidine Laterality: Bilateral Insertion Site: Brachial Midline Device: PowerGlide Pro 18G Catheter Length: 10 cm Midline Procedure Procedure: 1% Lidocaine to skin and subcutaneous tissue with 25g needle and Vessel accessed with needle Dressing: Other Blood Return: Absent Flushes: Does Not Flush Ultrasound: Used to kylee site Number of Attempts (See previous attempts in note section): 3 Procedure Tolerated: No Complications and Patient tolerated well Procedure Outcome: Unsuccessful Performed By: Jerome Alvarado Other (not listed above): Michelle Cummings TRACTOR OPERATOR BATTERY also attempted unsuccessfully
--- NOTE | 2022-04-16 12:46 | PGE_ITS ---
Date of Service Date of service: 04/16/22 Time of Service: 12:46 Assessment and Plan Assessment and plan (1) Cellulitis of right foot: Status: Acute Assessment and plan: Continue high-dose ceftriaxone 2 g IV daily. Monitor labs weekly, resume physical therapy Labs today WBC down to 11.47 from 16.61 Procalcitonin - < 0.1 CRP 0.37 H/H Sodium 135 magnesium 1.6 repleted with IV magnesium; also oral daily (2) Non-healing wound of right heel: Status: Acute Assessment and plan: [place] [facility] [place] @ 3 PM. He does have a ride to get there. His primary issue is his poor peripheral arterial disease which is contributing to his infection and failure of his wound to heal properly Today he complains of 10/10 pain to the right heel and unable to bear any weight. He declines pain medications; There are two areas that look like skin or pus pockets - discussed with Dr Lux; repeat MRI. Repeat MRI of the right heel today IMPRESSION: 1. No subcutaneous fluid collection to suggest an abscess.? No skin defect is seen to suggest an ulcer crater. 2. No findings to suggest osteomyelitis. 3. Persistent edema in the soft tissues of the foot which may represent cellulitis. ? (3) Hypertension: Status: Chronic Assessment and plan: BP well controlled continue his metoprolol XL along with aspirin lactone and a 6 for his cardiomyopathy. Qualifiers: Hypertension type: essential hypertension Qualified Code(s): I10 - Essential (primary) hypertension (4) Diabetes mellitus type 2, insulin dependent: Assessment and plan: continue basal bolus insulin treatment with monitor blood sugars before meals and at bedtime (5) DVT prophylaxis: Status: Acute Assessment and plan: Continue enoxaparin for DVT prophylaxis (6) Discharge planning issues: Status: Acute Assessment and plan: Disposition will be determined by his progression while on swing bed status. Subjective Subjective Patient reports: still having pain (Reports 10/10 pain in right heel, refusing pain meds), tolerating a regular diet, voiding w/o difficulty and afebrile; denies diarrhea, nausea, vomiting or shortness of breath Interval history since last seen: Carlos is complaining of increased pain in his right heel. He states he does not want to take pain medications, though he is taking tramadol twice a day. Cellulitis itself is improving. discussion with Dr Lux - will re MRI right foot - consult podiatry if necessary Exam Narrative Exam Narrative: Const General: cooperative and no acute distress Nutritional Appearance: obese Orientation: alert and oriented x3 HENMT Head: normal to inspection, normocephalic and atraumatic Ears: hearing grossly normal bilaterally and external ears normal General nose exam: external nose normal and nares normal Face and sinus: normal facial exam and face symmetric Mouth: oral mucosae normal Eyes General: appearance normal, both eyes and all related structures Sclera: sclerae normal EOM: no movement deficit Neck Neck: normal visual inspection, full ROM, no lymphadenopathy, trachea midline, supple and no JVD Thyroid: thyroid normal Carotids: normal carotid upstroke Chest Chest: normal inspection of the chest and normal palpation of entire chest wall Resp Effort & Inspection: normal respiratory effort Auscultation: clear to auscultation bilaterally Cardio Jugular venous pressure: no JVD Rate: regular rate Rhythm: regular rhythm Heart Sounds: S1 normal and S2 normal Other: Nonpalpable pedal pulses in right foot but obtainable by Doppler, palpable pedal pulses in left foot GI Inspection: obesity Palpation: soft and nontender Auscultation: normal bowel sounds Rectal Exam: deferred Back/Spine/Pelvis Thoracic/Lumbar Spine: thoracic and lumbar spine normal to inspection Skin General skin exam: dry skin and erythema (Previously up to the knee but now limited to medial malleolus) Lesions: lesion noted (thickened, crack skin at right heel. No ulceration. No drainage. ) Neuro General: no focal motor deficits Cranial Nerves: CN's II-XI intact bilaterally and facial strength normal Speech: speech normal Motor: muscle tone normal throughout and strength 5/5 throughout Extrem General: no calf tenderness and edema (nonpitting) Psych Appearance: grossly normal Mental Status: mental status grossly normal Speech and Movement: speech and movement normal Affect: normal affect Attitude: cooperative Thought Process: normal Thought Content: normal Insight: insight good Judgment: judgment good Objective Last Vital Signs Temp 36.2 C L 04/16/22 07:42 Pulse 60 04/16/22 07:42 Resp 20 04/16/22 07:42 BP 139/67 04/16/22 07:42 Pulse Ox 96 04/16/22 07:42 Laboratory Results - last 24 hr 04/16/22 04/16/22 04/16/22 06:16 06:16 06:16 WBC 11.47 H Cancelled RBC 3.97 L Cancelled Hgb 11.8 L Cancelled Hct 35.9 L Cancelled MCV 90 Cancelled MCH 29.7 Cancelled MCHC 32.9 Cancelled RDW 14.1 Cancelled Plt Count 291 Cancelled MPV 10.0 Cancelled Immature Gran % 1.7 Cancelled Neutrophils % 60.3 Cancelled Band Neutrophils % Cancelled Lymphocytes % 28.1 Cancelled Atypical Lymphs % Cancelled Monocytes % 7.0 Cancelled Eosinophils % 2.1 Cancelled Basophils % 0.8 Cancelled Metamyelocytes % Cancelled Myelocytes % Cancelled Promyelocytes % Cancelled Other Cells % Cancelled Nucleated RBC % 0.0 Cancelled Absolute Neutrophils 6.92 H Cancelled Absolute Lymphocytes 3.22 Cancelled Absolute Monocytes 0.80 Cancelled Absolute Eosinophils 0.24 Cancelled Absolute Basophils 0.09 Cancelled RBC Morphology Cancelled Polychromasia Cancelled Hypochromasia Cancelled Poikilocytosis Cancelled Basophilic Stippling Cancelled Anisocytosis Cancelled Microcytosis Cancelled Macrocytosis Cancelled Spherocytes Cancelled Tear Drop Cells Cancelled Ovalocytes Cancelled Stomatocytes Cancelled Hicks-Bairoil Bodies Cancelled Greenfield Cells/Echinocytes Cancelled Acanthocytes (Spur) Cancelled Schistocytes Cancelled Sodium Potassium Chloride Carbon Dioxide Anion Gap BUN Creatinine Est GFR (CKD-EPI 2020) Glucose Calcium Magnesium C-Reactive Protein Procalcitonin Add-On Test Request DONE 04/16/22 04/16/22 08:18 08:18 WBC RBC Hgb Hct MCV MCH MCHC RDW Plt Count MPV Immature Gran % Neutrophils % Band Neutrophils % Lymphocytes % Atypical Lymphs % Monocytes % Eosinophils % Basophils % Metamyelocytes % Myelocytes % Promyelocytes % Other Cells % Nucleated RBC % Absolute Neutrophils Absolute Lymphocytes Absolute Monocytes Absolute Eosinophils Absolute Basophils RBC Morphology Polychromasia Hypochromasia Poikilocytosis Basophilic Stippling Anisocytosis Microcytosis Macrocytosis Spherocytes Tear Drop Cells Ovalocytes Stomatocytes Hicks-Bairoil Bodies Greenfield Cells/Echinocytes Acanthocytes (Spur) Schistocytes Sodium 135 L Potassium 4.2 Chloride 102 Carbon Dioxide 29.5 Anion Gap 3.5 BUN 13 Creatinine 0.7 Est GFR (CKD-EPI 2020) 99.12 Glucose 80 Calcium 8.7 Magnesium 1.6 L C-Reactive Protein 0.37 H Procalcitonin < 0.1 Add-On Test Request
--- NOTE | 2022-04-16 14:07 | DIABASSESS_ITS ---
Date of service: 04/16/22 Time of Service: 14:07 Diabetes Note Reason for Visit: DM NOTE: Met with Dylan today as he is interested in getting a continuous glucose monitor. His current phone is not compatible with the Dexcom 6 CGM samples we have on hand. Will follow up with his PCP and recommend No 2 continous glucose monitor with 1st pressman on web press. As per medicare guidelines, he is eligible for a CGM as he takes insulin 4-5 times daily. Time Spent in Nutritional Counseling and Treatment: 15
--- NOTE | 2022-04-16 15:03 | PT.INNT ---
Date of service: 04/16/22 Time of Service: 15:03 PT Notes Visit Reasons: Cellulitis Right Leg 04/16/2022 Patient is not available for PT session, he is currently off M/S floor for MRI testing. Will attempt to resume PT services next week.
[2022-04-16] MEDS: Gadoterate meglumine 20 ML SYRINGE IVP (16:00)
[2022-04-16 16:23] VITALS: BP 124/74; PULSE 61; RESP 20; TEMP 36.5; O2SAT 95
[2022-04-16] MEDS: MAGNESIUM SULFATE 2 GM/50 ML BAG IVPB (16:41)
[2022-04-16] MEDS: Gabapentin 600 MG TAB PO (20:23)
[2022-04-16] MEDS: traZODone 50 MG TAB PO (20:23)
[2022-04-16] MEDS: diphenhydrAMINE 25 MG CAP 50 MG PO (20:23)
[2022-04-16 22:56] VITALS: BP 144/71; PULSE 63; RESP 18; TEMP 36.5; O2SAT 94
[2022-04-16] MEDS: IMIPENEM/CILASTATIN 500 MG in Normal Saline 100 ML 2000 MG IVPB (23:41)
[2022-04-17] MEDS: IMIPENEM/CILASTATIN 500 MG in Normal Saline 100 ML 200 MG IVPB ×3 (05:36→17:08)
[2022-04-17 07:06] LABS: Anion Gap 4.8 mmol/L (3-11); BUN 14 mg/dL (7-18); CO2 30.2 mmol/L (21.0-32.0); CREATININE 0.8 mg/dL (0.70-1.30); Calcium 8.6 mg/dL (8.5-10.1); Chloride 103 mmol/L (98-107); Estimated GFR 95.21 (mL/min/1.73m2); Glucose 77 mg/dL (74-106); Magnesium 1.7 mg/dL (1.8-2.4); Potassium 4.2 mmol/L (3.5-5.1); Sodium 138 mmol/L (136-145)
[2022-04-17 07:36] VITALS: BP 127/78; PULSE 59; RESP 18; TEMP 36.2; O2SAT 95
[2022-04-17] MEDS: Lachydrin 12% LOTION 225 GM BTL TP ×2 (08:37→19:42)
[2022-04-17] MEDS: Enoxaparin 40 MG/0.4 ML SYR SC ×2 (08:37→19:42)
[2022-04-17] MEDS: Aspirin 81 MG CHEW PO (08:38)
[2022-04-17] MEDS: metFORMIN 500 MG TAB 1000 MG PO ×2 (08:38→17:08)
[2022-04-17] MEDS: Metoprolol CR 25 MG TABCR PO (08:39)
[2022-04-17] MEDS: DULoxetine 30 MG CAP PO (08:39)
[2022-04-17] MEDS: Lisinopril 5 MG TAB 2.5 MG PO (08:39)
[2022-04-17] MEDS: Gabapentin 300 MG CAP PO ×2 (08:40→14:27)
[2022-04-17] MEDS: Celecoxib 200 MG CAP PO ×2 (08:40→19:43)
[2022-04-17] MEDS: Atorvastatin 40 MG TAB 80 MG PO (08:40)
[2022-04-17] MEDS: Insulin Aspart 300 UNITS/3 ML PEN SC ×3 (08:47→17:41)
[2022-04-17] MEDS: Magnesium Oxide 400 MG TAB PO ×2 (10:11→19:43)
[2022-04-17] MEDS: cefTRIAXone 2 GM/50 ML BAG IV (11:58)
[2022-04-17] MEDS: Normal Saline Flush 10 ML SYR IVP ×2 (12:09→19:43)
[2022-04-17 15:05] VITALS: BP 110/59; PULSE 66; RESP 18; TEMP 36.7; O2SAT 97
--- NOTE | 2022-04-17 18:44 | NUR.NOTE ---
Nursing Note: I have reviewed and approve the Charting of Merlene De La Paz LPN.
[2022-04-17 19:53] VITALS: BP 115/71; PULSE 69; RESP 18; TEMP 36.8; O2SAT 95
[2022-04-17] MEDS: Gabapentin 600 MG TAB PO (21:17)
[2022-04-17] MEDS: diphenhydrAMINE 25 MG CAP 50 MG PO (21:17)
[2022-04-17] MEDS: traZODone 50 MG TAB PO (21:17)
[2022-04-18] MEDS: IMIPENEM/CILASTATIN 500 MG in Normal Saline 100 ML 200 MG IVPB ×5 (00:09→23:23)
[2022-04-18] MEDS: Normal Saline Flush 10 ML SYR IVP ×4 (00:12→20:09)
[2022-04-18] MEDS: Acetaminophen 325 MG TAB 650 MG PO (00:21)
[2022-04-18 07:19] VITALS: BP 121/78; PULSE 60; RESP 18; TEMP 36.3; O2SAT 94
[2022-04-18] MEDS: Insulin Aspart 300 UNITS/3 ML PEN SC ×3 (08:44→17:33)
[2022-04-18] MEDS: Lachydrin 12% LOTION 225 GM BTL TP ×2 (08:46→20:08)
[2022-04-18] MEDS: Enoxaparin 40 MG/0.4 ML SYR SC ×2 (08:47→20:09)
[2022-04-18] MEDS: DULoxetine 30 MG CAP PO (08:47)
[2022-04-18] MEDS: Aspirin 81 MG CHEW PO (08:47)
[2022-04-18] MEDS: Atorvastatin 40 MG TAB 80 MG PO (08:47)
[2022-04-18] MEDS: Lisinopril 5 MG TAB 2.5 MG PO (08:47)
[2022-04-18] MEDS: Gabapentin 300 MG CAP PO ×2 (08:48→14:18)
[2022-04-18] MEDS: Metoprolol CR 25 MG TABCR PO (08:48)
[2022-04-18] MEDS: Celecoxib 200 MG CAP PO ×2 (08:48→20:09)
[2022-04-18] MEDS: metFORMIN 500 MG TAB 1000 MG PO ×2 (08:48→17:28)
[2022-04-18] MEDS: Magnesium Oxide 400 MG TAB PO ×2 (10:22→20:09)
[2022-04-18] MEDS: cefTRIAXone 2 GM/50 ML BAG IV (11:45)
[2022-04-18 15:51] VITALS: BP 108/58; PULSE 59; RESP 18; TEMP 36.5; O2SAT 97
[2022-04-18] MEDS: Normal Saline 500 ML 30 ML IV (17:31)
[2022-04-18] MEDS: traZODone 50 MG TAB PO (22:46)
[2022-04-18] MEDS: Gabapentin 600 MG TAB PO (22:46)
[2022-04-18] MEDS: diphenhydrAMINE 25 MG CAP 50 MG PO (22:46)
[2022-04-18 23:13] VITALS: BP 110/55; PULSE 59; RESP 18; TEMP 36.7; O2SAT 98
[2022-04-19] MEDS: IMIPENEM/CILASTATIN 500 MG in Normal Saline 100 ML 200 MG IVPB ×2 (05:31→12:10)
[2022-04-19] MEDS: Normal Saline Flush 10 ML SYR IVP ×3 (05:32→11:27)
[2022-04-19 05:53] LABS: Abs Immature Grans 0.06 10^3/uL (0.0-0.06); HCT 35.6 % (40.0-50.0); HGB 11.3 g/dL (13.5-17.5); MCH 29.4 pg (27.0-33.0); MCHC 31.7 % (32.0-36.0); MCV 93 fL (80-95); MPV 9.8 fL (8.0-11.0); Platelet Count 279 10^3/uL (130-400); RBC 3.84 10^6/uL (4.36-5.78); RDW 13.8 % (11.8-14.1); RDW-SD 46.7 fL; WBC 9.88 10^3/uL (4.4-10.8)
[2022-04-19 06:19] LABS: ALT 44 U/L (16-63); AST 25 U/L (15-37); Albumin 2.7 g/dL (3.4-5.0); Alkaline Phosphatase 91 U/L (46-116); Anion Gap 5.3 mmol/L (3-11); BUN 16 mg/dL (7-18); Bilirubin, Total 0.3 mg/dL (0.2-1.0); C-Reactive Protein 0.24 mg/dL (0.0-0.3); CO2 30.7 mmol/L (21.0-32.0); CREATININE 0.9 mg/dL (0.70-1.30); Calcium 8.2 mg/dL (8.5-10.1); Chloride 106 mmol/L (98-107); Estimated GFR 91.88 (mL/min/1.73m2); Glucose 94 mg/dL (74-106); Magnesium 1.8 mg/dL (1.8-2.4); Potassium 4.4 mmol/L (3.5-5.1); Sodium 142 mmol/L (136-145); Total Protein 6.4 g/dL (6.4-8.2)
[2022-04-19 06:40] LABS: Absolute Lymphocyte Count 3.46 10^3/uL (1.2-3.4); Absolute Monocyte Count 0.59 10^3/uL (0.1-0.8); Absolute Neutrophil Count 5.53 10^3/uL (1.2-6.7); Atypical Lymphocytes % 4; Diff Comment Manual Differential; RBC Morphology Normal
[2022-04-19] MEDS: metFORMIN 500 MG TAB 1000 MG PO ×2 (07:45→17:41)
[2022-04-19] MEDS: Aspirin 81 MG CHEW PO (07:45)
[2022-04-19] MEDS: Celecoxib 200 MG CAP PO ×2 (07:45→19:57)
[2022-04-19] MEDS: DULoxetine 30 MG CAP PO (07:45)
[2022-04-19] MEDS: Gabapentin 300 MG CAP PO ×2 (07:45→13:27)
[2022-04-19] MEDS: Lisinopril 5 MG TAB 2.5 MG PO (07:45)
[2022-04-19] MEDS: Lachydrin 12% LOTION 225 GM BTL TP ×2 (07:45→19:57)
[2022-04-19] MEDS: Metoprolol CR 25 MG TABCR PO (07:45)
[2022-04-19] MEDS: Atorvastatin 40 MG TAB 80 MG PO (07:46)
[2022-04-19] MEDS: Enoxaparin 40 MG/0.4 ML SYR SC (07:51)
[2022-04-19 07:53] VITALS: BP 127/77; PULSE 59; RESP 20; TEMP 36; O2SAT 94
[2022-04-19] MEDS: Insulin Aspart 300 UNITS/3 ML PEN SC ×3 (08:08→17:40)
[2022-04-19] MEDS: Magnesium Oxide 400 MG TAB PO ×2 (09:29→19:57)
[2022-04-19] MEDS: cefTRIAXone 2 GM/50 ML BAG IV (11:27)
[2022-04-19 16:07] VITALS: BP 136/77; PULSE 60; RESP 17; TEMP 36.5; O2SAT 95
--- NOTE | 2022-04-19 16:43 | PDOC.CMPRO ---
- If Service Date Differs Date of service: 04/19/22 Time of Service: 16:43 Care Management Progress Note S/O:Dylan was sitting up in a chair when CM met with him. He is receiving his last dose of antibiotic today and will be able to be discharged tomorrow. His daughter Anabel will transport him around 1pm. Dylan would like a new glucose meter as his is broken.This was ordered by the provider today. Eventually Dylan would like a CGM. He verbalized that he dislikes fingersticks and would like one that can connect to his phone. Per the Site Administrator Marley, [facility] does not carry the type he wants. EDUARDO as well as the nurses educator notified his PCP practice requesting OP follow up with this issue. A: Dylan is a 72 year old man admitted into -1 on 04/09/22 for IV antibiotic therapy. P:Dylan will be discharged home with new home health services for nursing for diabetes education and wound care. He will follow up with his community providers and plan of care and transport with his daughter. Dylan will have a prescription for a new glucose meter and teast strips as his is broken
[2022-04-19] MEDS: traZODone 50 MG TAB PO (21:39)
[2022-04-19] MEDS: diphenhydrAMINE 25 MG CAP 50 MG PO (21:39)
[2022-04-19] MEDS: Gabapentin 600 MG TAB PO (21:39)
[2022-04-19 23:15] VITALS: BP 135/75; PULSE 60; RESP 17; TEMP 36.8; O2SAT 96
[2022-04-20 07:31] VITALS: BP 154/86; PULSE 79; RESP 17; TEMP 36.8; O2SAT 94
[2022-04-20] MEDS: Lachydrin 12% LOTION 225 GM BTL TP (08:11)
[2022-04-20] MEDS: Acetaminophen 325 MG TAB 650 MG PO (08:11)
[2022-04-20] MEDS: Atorvastatin 40 MG TAB 80 MG PO (08:12)
[2022-04-20] MEDS: Aspirin 81 MG CHEW PO (08:12)
[2022-04-20] MEDS: Celecoxib 200 MG CAP PO (08:12)
[2022-04-20] MEDS: Gabapentin 300 MG CAP PO (08:13)
[2022-04-20] MEDS: DULoxetine 30 MG CAP PO (08:13)
[2022-04-20] MEDS: Lisinopril 5 MG TAB 2.5 MG PO (08:15)
[2022-04-20] MEDS: metFORMIN 500 MG TAB 1000 MG PO (08:15)
[2022-04-20] MEDS: Metoprolol CR 25 MG TABCR PO (08:16)
[2022-04-20] MEDS: Insulin Aspart 300 UNITS/3 ML PEN SC (09:14)
[2022-04-20] MEDS: Magnesium Oxide 400 MG TAB PO (09:15)
--- NOTE | 2022-04-20 11:56 | W.PM.DS.N ---
Date of service: 04/20/22 Time of Service: 11:56 DS: Diagnosis Discharge Diagnosis (1) Cellulitis of right foot: Status: Acute (2) Non-healing wound of right heel: Status: Acute (3) Hypertension: Status: Chronic (4) Diabetes mellitus type 2, insulin dependent: Discharge Plan Disposition Patient Disposition: HOME W/HOME HEALTH SERVICE Condition: Stable Discharge Details Reason For Visit: Cellulitis Right Leg Admit Date/Time: 04/09/22 15:33 Admit Provider: Efrain Noel Attending Provider: Efrain Noel Primary Care Provider: Taye Ron [facility] Course: This is a 72-year-old male with past medical history of DM 2 on insulin, CAD history of CABG, RA, psoriasis, HTN, HLD, obesity, mitral regurgitation presenting with redness in the right foot up to his knee.? He was eval by his PCP sent to the ED.? He has a chronic right heel wound that started a few years ago after previous vein harvest for his CABG.? Heel wound has been intermittently infected.? Patient's had trouble with weightbearing on the right foot.? Evaluation in the ED demonstrated leukocytosis of 15,790.? X-ray of the right heel showed no osteomyelitis.? He was febrile on admission with 39.1 Celsius and elevated blood lactate 3.2.? He was admitted for parenteral antibiotics.? Blood cultures came back no growth.? MRSA screen was negative for MRSA.? Patient was initially treated with cefepime and vancomycin.? Patient continued to spike fevers up to 39 degrees for the first couple days through April 06 and then became afebrile thereafter.? Consultation was obtained with Dr. Giles Lux from orthopedics regarding his right heel ulcer.? No podiatry was available at this time.? Dr. Lux did not recommend debridement and felt that the failure of the heel ulcer to close up was secondary to peripheral vascular disease he recommended outpatient referral to vascular surgery and referral to wound care clinic at [facility] [place], the appointment is scheduled for 04/27/2022.? CT of the leg was performed looking for any focal abscess.? No abscess was seen there is diffuse soft tissue edema in the subcutaneous tissues and lower extremity but no erosive or bony destructive lesions were seen and no focal abscess.? Subsequently MRI scan was performed of the lower extremity and again showed no osteomyelitis but showed prominent diffuse subcutaneous edema as well as deeper edema involvement of the deep musculature on the plantar surface of foot exhibiting abnormal signal and enhancement following contrast injection.? No obvious gas formation soft tissues and no fractures or Charcot arthropathy of the foot.? Vancomycin was discontinued and he was maintained on ceftriaxone 2 g IV daily.? Pain was treated with celecoxib.? The area of original erythema the leg receded to some residual area around the medial malleolus.? Patient was then admitted on swing bed status for completion of 2-week course of ceftriaxone 2 g IV daily.? Weekly labs were monitored including BMP, CBC, and CRP which will be drawn on wednesday 04/25 to be available for his outpatient appoint on 04/27, His CRP was trending down steadily and normalized from 10.77 to 0.24.? He remained medically stable. antibiotics now completed and he is safe for discharge home with home health services. discussed with Dr Zapata Home Meds and New Rx's Prescriptions: New (DME) blood-glucose meter [OneTouch Ultra2 Meter[place] [facility] See Rx Instructions .Route Qty: 1 0RF Rx Instructions: As directed (DME) OneTouch Ultra Test Strip See Rx Instructions .Route Qty: 100 0RF Rx Instructions: As directed Continued trazodone 50 mg tablet 50 mg PO DAILY Humira(CF) 40 mg/0.4 mL syringe kit 40 mg SC Q2W magnesium oxide 500 mg tablet 500 mg PO DAILY lisinopril 2.5 mg tablet 2.5 mg PO DAILY Qty: 90 3RF furosemide 40 mg tablet 20 mg PO DAILY cholecalciferol (vitamin D3) 1,000 unit capsule 1,000 unit PO DAILY metoprolol succinate 25 mg tablet extended release 24 hr 25 mg PO DAILY 90 Days Qty: 90 3RF spironolactone 25 mg tablet 50 mg PO DAILY omega-3 fatty acids-fish oil 1 EACH capsule 1 ea PO DAILY insulin aspart U-100 [Novolog PenFill U-100 Insulin] 100 unit/mL cartridge 35 unit subcut TID atorvastatin 80 mg tablet 80 mg PO DAILY Qty: 90 3RF nitroglycerin 0.3 mg tablet, sublingual 0.3 mg SL Q5M PRN (Reason: chest pain) Qty: 30 12RF Rx Instructions: do not exceed 3 doses per episode aspirin 81 MG tablet,chewable 81 mg PO DAILY AM gabapentin 600 MG tablet 300 mg PO TID Diabetes Health Formula 1 EACH tablet 1 ea PO DAILY AM metformin 1,000 mg Tablet 1,000 mg PO BID acetaminophen 500 mg Tablet 500 mg PO Q6H PRN Victoza 2-Yousuf 0.6 mg/0.1 mL (18 mg/3 mL) Pen Injector 1.8 mg subcut DAILY Levemir FlexTouch U-100 Insuln 100 unit/mL (3 mL) insulin pen 53 unit subcut QAM AND QHS Discharge Instructions Instructions: Cellulitis (DC), Chronic Wound Care (DC), Type 2 Diabetes in the Older Adult (DC) Stand Alone Forms: Nursing Discharge Form [facility] - 04/27/22 3:00 pm (PAD PRISCA) Taye Ron [Primary Care Provider] - 05/04/22 10:30 am Activity:: Activity as Tolerated Equipment/Supplies:: Blood Glucose Monitor Diet:: Carb Counting Discharge Orders Discharge Orders: Discharge Order (Routine); Ordered 04/20/22 Ordered By: Nuha Velasco Other Ambulatory Orders: Basic Metabolic Panel (Routine) Timeframe: 20220424 Location: None Selected Ordered By: Nuha Velasco Complete Blood Count w/Diff (Routine) Timeframe: 20220424 Location: None Selected Ordered By: Nuha Velasco C-Reactive Protein (Routine) Timeframe: 20220424 Location: None Selected Ordered By: Nuha Velasco Discharge Data Discharge Date/Time-TO BE ENTERED AT DEPARTURE: 04/20/22 13:55 DS: Summary Time Spent with Patient providing and/or coordinating discharge services: Greater than 30 minutes Status at Discharge Functional status at discharge: uses cane/walker Overall status at discharge: patient is progressing back to baseline Mental Status: mental status grossly normal Speech and Movement: speech and movement normal Mood: congruent mood Affect: normal affect Exam Narrative Exam Narrative: Const General: cooperative and no acute distress Nutritional Appearance: obese Orientation: alert and oriented x3 HENMT Head: normal to inspection, normocephalic and atraumatic Eyes General: appearance normal, both eyes and all related structures Sclera: sclerae normal EOM: no movement deficit Neck Neck: normal visual inspection, full ROM, no lymphadenopathy, trachea midline, supple and no JVD Thyroid: thyroid normal Carotids: normal carotid upstroke Chest Chest: normal inspection of the chest and normal palpation of entire chest wall Resp Effort & Inspection: normal respiratory effort Auscultation: clear to auscultation bilaterally Cardio Rate: regular rate Rhythm: regular rhythm Other: Nonpalpable pedal pulses in right foot but obtainable by Doppler, palpable pedal pulses in left foot GI Inspection: obesity Palpation: soft and nontender Auscultation: normal bowel sounds Back/Spine/Pelvis Thoracic/Lumbar Spine: thoracic and lumbar spine normal to inspection Skin General skin exam: dry skin and erythema (Previously up to the knee but now limited to medial malleolus) Lesions: lesion noted (thickened, crack skin at right heel. No ulceration. No drainage. ) Neuro General: no focal motor deficits Cranial Nerves: CN's II-XI intact bilaterally and facial strength normal Speech: speech normal Motor: muscle tone normal throughout and strength 5/5 throughout Extrem General: no calf tenderness and edema (nonpitting) Psych Appearance: grossly normal Mental Status: mental status grossly normal Speech and Movement: speech and movement normal Mood: congruent mood Affect: normal affect Attitude: cooperative Thought Process: normal Thought Content: normal Insight: insight good Judgment: judgment good DS: Data Vitals/I&O Vitals and I&O: Vital Signs Temperature 36.8 C 04/20/22 07:31 Temperature Source Tympanic 04/20/22 07:31 Pulse 79 04/20/22 07:31 Pulse Rhythm Regular 04/20/22 08:15 Respiratory Rate 17 04/20/22 07:31 Respiratory Effort 04/20/22 08:15 Respiratory Depth Normal 04/20/22 08:15 Respiratory Pattern Normal 04/20/22 08:15 Blood Pressure 154/86 H 04/20/22 07:31 Pulse Oximetry 94 04/20/22 07:31 Oxygen Delivery Method Room Air 04/20/22 07:31 Oxygen Flow Rate 0 04/20/22 07:31 Pain Level 5 04/20/22 08:11 Comment 04/20/22 07:31 Intake & Output 04/19/22 04/19/22 04/20/22 11:59 23:59 11:59 Intake Total 556.5 / 956.5 400 / 956.5 240 / 240 Balance 556.5 / 956.5 400 / 956.5 240 / 240 Weight 129 kg 127.3 kg Intake: IV 256.5 / 406.5 150 / 406.5 Oral 300 / 550 250 / 550 240 / 240 Other: Urine Color Yellow Urine Appearance Clear Clear Comment Independently uses bathroom. pT walks to the bathroom independently. pT voides independently Stool Size Moderate Stool Characteristics Soft Brown Voiding Methods Toilet Toilet Toilet PFSH All Active Problems (Updated 04/10/22 @ 00:01 by BHAVIN ALEMAN) DVT prophylaxis (Acute) Discharge planning issues (Acute) Non-healing wound of right heel (Acute) Cellulitis of right foot (Acute) S/P CABG x 3 (Acute ~01/31/19) Dyslipidemia (Acute) Hypertension (Chronic) Ischemic cardiomyopathy (Acute) CAD (coronary artery disease) (Chronic) Tubular adenoma (Acute 05/12/15) Medical History (Updated 04/10/22 @ 00:01 by BHAVIN ALEMAN) 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, insulin dependent Mitral regurgitation Social History Smoking/Tobacco Use Status: Former Tobacco Use Quit Date: 08/08/95 Pack-years: 60 Tobacco: How many years used: 30 Smoking risk assessment performed?: Yes Alcohol Intake: former Drug use: Never Substance use type: does not use Housing: apartment current occupation: retired Do you feel safe at home: Yes Do you feel safe in your relationship?: Yes
[2022-04-20] MEDS: Bacitracin 1 PACKET TP (13:08)
--- NOTE | 2022-04-20 13:43 | PDOC.HHF2F ---
Home Health Certification Home Health Certification: 1. Encounter Date and Reason I certify that Carlos Gan was seen by Nuha Velasco on 04/20/22 and that I had a [id number] encounter with this patient that meets the physician face to face encounter requirements. 2. Clinical Findings Supporting Skilled Need and Homebound Status I certify that home health services are medically necessary, include either intermittent fpc and/or physical/speech therapy, and that this patient is homebound in that absences from the home require considerable and taxing effort and are infrequent or of short duration, or are attributable to the need to receive medical care. [X] (a) Attached documentation from encounter provides clinical findings supporting skilled need and homebound status (including what assistance patient requires to leave the home). The encounter with the patient was in whole, or in part, for the following medical condition, which is the primary reason for home health care: Cellulitis Right Leg Residential: nursing for medication compliance, wound care and evaluation, and diabetes management instruction, oversight, and evaluation Homebound: patient unable to safely leave the house unassisted d/t non healing wounds severely limiting ambulation 3. Certification and Authentication I certify that I composed the above information based on my clinical judgement relating to this patient's medical condition and, if applicable, clinical findings communicated to me by the NPP or inpatient physician who performed the Home Health Referral. All further orders will be obtained through _HECTOR MASSEY MD__(Community Based Physician - PCP)
--- NOTE | 2022-04-20 15:52 | PDOC.CMDIS ---
- If Service Date Differs Date of service: 04/20/22 Time of Service: 15:52 LACE Index Scoring Tool - Questions: Length of Stay (in days): 7 - 13 Acuity (Admit via E.D.?): Yes Comorbidities: Diabetes w/o Complication E.D. Visits: 1 - Answers: Total Score: 10 Risk of Readmission: High Risk Care Management Discharge Reason for Hospitalization: Cellulites Discharge Plan: Carlos is discharge home via private vehicle with daughter. New [facility] RN/PT services are orderd. New BS testing supplies are transmitted to [facility]. Carlos will follow up with [facility] Vascular Surgery on 04/27/22 and PCP 05/04/22, as schedule.
== END 2022-04-20 13:55 | disposition home health service (06) | DRG 603 ==
PROVIDERS: Internal Medicine; Nurse Practitioner Family; Admitting Provider Internal Medicine; PCP Family Medicine; Visit Provider Internal Medicine
DX: L03.115 Cellulitis of right lower limb (principal); L97.418 Non-pressure chronic ulcer of right heel and midfoot with other specified severity; Z68.42 Body mass index [BMI] 45.0-49.9, adult; I10 Essential (primary) hypertension; Z79.4 Long term (current) use of insulin; E11.9 Type 2 diabetes mellitus without complications; I70.234 Atherosclerosis of native arteries of right leg with ulceration of heel and midfoot; I25.10 Atherosclerotic heart disease of native coronary artery without angina pectoris; Z95.1 Presence of aortocoronary bypass graft; M06.9 Rheumatoid arthritis, unspecified; L40.9 Psoriasis, unspecified; E78.5 Hyperlipidemia, unspecified; I34.0 Nonrheumatic mitral (valve) insufficiency; I25.5 Ischemic cardiomyopathy; Z79.84 Long term (current) use of oral hypoglycemic drugs; Z79.82 Long term (current) use of aspirin; E66.01 Morbid (severe) obesity due to excess calories
CPT/HCPCS: 36415; 80048; 80053; 84145; 85652; 97110; 97162; 99306; 99316; J1650; 73723; 83735; 85025; 85049; 86140; 99232; 99308; J0696; J0743; J3490

== ENCOUNTER 2022-04-26 09:54 | Outpatient (CLI) | payer MEDICARE, MEDICAID, SELFPAY ==
[2022-04-26 09:55] LABS: Abs Immature Grans 0.05 10^3/uL (0.0-0.06); Absolute Eosinophil Count 0.26 10^3/uL (0.0-0.7); Absolute Monocyte Count 0.93 10^3/uL (0.1-0.8); Basophils % 0.8; HCT 44.1 % (40.0-50.0); Immature Grans % 0.4; Lymphocytes % 28.9; MCH 29.2 pg (27.0-33.0); MCHC 31.7 % (32.0-36.0); MCV 92 fL (80-95); MPV 9.6 fL (8.0-11.0); Monocytes % 7.1; Neutrophils % 60.8; Platelet Count 390 10^3/uL (130-400); RBC 4.79 10^6/uL (4.36-5.78); RDW 14.1 % (11.8-14.1); RDW-SD 47.2 fL; WBC 13.16 10^3/uL (4.4-10.8)
[2022-04-26 09:56] LABS: Absolute Basophil Count 0.11 10^3/uL (0.0-0.2)
--- OUTSIDE RECORDS SUMMARY | 2022-04-26 09:58 | XMS_ITS | Encounter Summary ---
:1950 Author Organization [facility] [place] [address] Care Team Providers Name Role Phone Taye Ron MD Primary Care Provider Reason for Visit Reason Comments Medication Management Encounter Details Date Type Department Care Team Description 07/07/2020 Specialty Pharmacy Pharmacy at [facility] [place] [facility] [place] [phone] Social History Tobacco Use Types Packs/Day Years Used Date Former Smoker Cigarettes Quit: 01/11/19 99 Smokeless Tobacco: Never Used Alcohol Use Standard Drinks/Week Comments Not Currently 0 (1 standard drink = 0.6 oz pure alcoho l) Sex Assigned at Date Recorded Not on file documented as of this encounter Progress Notes Ca Velasquez RPH - 07/07/2020 2:34 PM EST Clinical Management Plan: Refill Specialty Pharmacy Consultation; Ca Velasquez RPH Comprehensive Medication Management (CMM) Carlossierra Gan is a 70 y.o. (1950) male who was contacted in regard to a specialty medication refill reminder. Spoke with patient regarding Humira. A review of the medication therapy was performed. The medication was Refilled as scheduled, and all medication related questions and concerns were addressed. The specialty pharmacy staff will follow up with the patient 5-7 days prior to next refill. Was a change made to the Care Plan: no If yes, should the medication be held: No Assessment and Recommendations: Title Type of Medication Management: chronic disease management, targeted medication review Referred By: provider Recipient: beneficiary Provider: plan sponsor pharmacist Visit Type: [facility] [place] Method of Contact: by telephone Cognitive Ability: good Cognitive Impairment Status Verified this Year: no Allergies and Drug intolerance: Allergies Allergen Reactions ??? Methotrexate Other (See Comments) Increased bleeding, lethargic ??? Shellfish Containing Products Anaphylaxis and Other (See Comments) Numbness, tingling of the tongue. Never had any problem with contrast and never used steroids before cath ??? Cis Free Text Allergy Hymenoptera (Bee) Stings. ??? Shellfish Derived Medication Reconciliation Discrepancies (compared to [facility] med list) -none New medications: no New medical conditions: no New allergies: no Adherence: Medication Adherence Patient reported X missed doses in the last month: 1 Any gaps in refill history greater than 2 weeks in the last 3 months: no Demonstrates understanding of importance of adherence: yes Informant: patient Reliability of informant: reliable Provider-estimated medication adherence level: 76-89% Reasons for non-adherence: patient forgets Adherence tools used: directed education Support network for adherence: healthcare provider Confirmed plan for next specialty medication refill: delivery by pharmacy Refills needed for supportive medications: not needed Are you experiencing any side effects from your medications? no Pt understands no changes to current drug regimen were made at the appointment and that [facility] is providing recommendations (summary located at top of note) for provider review and follow up. Ca Velasquez [facility] 07/07/20 2:35 PM documented in this encounter Plan of Treatment Upcoming Encounters Date Type Specialty Care Team Description 04/27/2022 Tech Visit Vascular Surgery Anais Singh 04/27/2022 Office Visit Vascular Surgery Sulema Fajardo MD [facility] VASCULAR SURGERY [place], [place] [address] (Wo rk) 05/18/2022 Office Visit Dermatology Alejandro Reese MD [address] [place] [address] DERMATOLOGY [place], [place] [address] (Wo rk) documented as of this encounter Visit Diagnoses Not on filedocumented in this encounter Care Teams Medical Billing And Coding Instructor Relationship Specialty Start Date End Date Taye Ron MD PCP - General Family Medicine 11/04/16 [address] [place] [address] documented as of this encounter
--- OUTSIDE RECORDS SUMMARY | 2022-04-26 09:58 | XMS_ITS | Encounter Summary ---
:1950 [place] [address] Care Team Providers Name Role Phone Taye Ron MD Primary Care Provider Encounter Details Date Type Department Care Team Description 02/26/2020 [place] [phone] Social History Tobacco Use Types Packs/Day Years Used Date Former Smoker Cigarettes Quit: 01/11/19 99 Smokeless Tobacco: Never Used Alcohol Use Standard Drinks/Week Comments Not Currently 0 (1 standard drink = 0.6 oz pure alcoho l) Sex Assigned at Date Recorded Not on file documented as of this encounter Miscellaneous Notes Telephone Encounter - Yumiko Diego - 02/26/2020 9:33 AM EDT Clinical Management Plan: Refill Specialty Pharmacy Consultation; Yumiko Diego Comprehensive Medication Management (CMM) Carlos Gan is a 69 y.o. (1950) male who was contacted in regard to a specialty medication refill reminder. Spoke with patient regarding Humira. A review of the medication therapy was performed. The medication was refilled as scheduled, and all medication related questions and concerns were addressed. The specialty pharmacy staff will follow up with the patient 5-7 days prior to next refill. Was a change made to the Care Plan: No Allergies and Drug intolerance: Allergies Allergen Reactions ??? Methotrexate Other (See Comments) Increased bleeding, lethargic ??? Shellfish Containing Products Anaphylaxis and Other (See Comments) Numbness, tingling of the tongue. Never had any problem with contrast and never used steroids before cath ??? Cis Free Text Allergy Hymenoptera (Bee) Stings. ??? Shellfish Derived Medication Reconciliation Discrepancies (compared to [facility] med list) No New medications: No New medical conditions: No New allergies: No Adherence: Any missed doses? No Are you experiencing any side effects from your medications? No Patient understands no changes to current drug regimen were made.. Yumiko Diego 02/26/20 9:33 AM documented in this encounter Plan of Treatment Upcoming Encounters Date Type Specialty Care Team Description 04/27/2022 Tech Visit Vascular Surgery Anais Singh 04/27/2022 Office Visit Vascular Surgery Sulema Fajardo MD [facility] VASCULAR SURGERY [place], [place] [address] (Wo rk) 05/18/2022 Office Visit Dermatology Alejandro Reese MD [address] [place] [address] DERMATOLOGY [place], [place] [address] (Wo rk) documented as of this encounter Visit Diagnoses Not on filedocumented in this encounter Care Teams Stone Paver Relationship Specialty Start Date End Date Taye Ron MD PCP - General Family Medicine 11/04/[address] [place] [address] documented as of this encounter
--- OUTSIDE RECORDS SUMMARY | 2022-04-26 09:58 | XMS_ITS | Encounter Summary ---
:1950 Author Organization [place] [address] Care Team Providers Name Role Phone Taye Ron MD Primary Care Provider Reason for Visit Reason Comments Medication Management Encounter Details Date Type Department Care Team Description 10/10/2019 Specialty Pharmacy [facility] [address] [phone] Social History Tobacco Use Types Packs/Day Years Used Date Former Smoker Cigarettes Quit: 01/11/19 99 Smokeless Tobacco: Never Used Alcohol Use Standard Drinks/Week Comments Not Currently 0 (1 standard drink = 0.6 oz pure alcoho l) Sex Assigned at Date Recorded Not on file documented as of this encounter Progress Notes Jayla Joshua [facility] - 10/10/2019 11:28 AM EST Clinical Management Plan: [facility]ill [facility] Comprehensive Medication Management (CMM) Carlos Gan is [...] change made to the Care Plan: no Assessment and Recommendations: Title Type of Medication Management: chronic disease management, targeted medication review Referred By: provider Recipient: beneficiary Provider: plan sponsor pharmacist Visit Type: Misc Follow-up Method of Contact: by telephone Cognitive [...] Shellfish Derived Medication Reconciliation Discrepancies (compared to [facility] med list) -no New medications: no New medical conditions: no New allergies: no Adherence: Medication Adherence Patient reported X missed doses in the last month: 0 Any gaps in refill history greater than 2 weeks in the last 3 months: no Demonstrates understanding of importance of adherence: yes Informant: patient Reliability of informant: reliable Provider-estimated medication adherence level: 90-100% Reasons for non-adherence: no problems identified Adherence tools used: directed education Support network for adherence: healthcare provider Confirmed plan for next specialty medication refill: delivery by pharmacy Refills needed for supportive medications: not needed Are you experiencing any side effects from your medications? no Pt understands no changes to current drug regimen were made at the appointment and that [facility] is providing recommendations (summary located at top of note) for provider review and follow up. Jayla Joshua RPH 10/10/19 11:28 AM documented in this encounter Plan of Treatment Upcoming Encounters Date Type Specialty Care Team Description 04/27/2022 Tech Visit Vascular Surgery Anais Singh 04/27/2022 Office Visit Vascular Surgery Sulema Fajardo MD [facility] VASCULAR SURGERY [place], [place] [address] (Wo rk) 05/18/2022 Office Visit Dermatology Alejandro Reese MD [address] [place] [address] DERMATOLOGY [place], [place] [address] (Wo rk) documented as of this encounter Visit Diagnoses Not on filedocumented in this encounter Care Teams Army Manager Relationship Specialty Start Date End Date Taye Ron MD PCP - General Family Medicine 11/04/16 [address] [place] [address] documented as of this encounter
--- OUTSIDE RECORDS SUMMARY | 2022-04-26 09:58 | XMS_ITS | Encounter Summary ---
:1950 Author Organization [facility] [place] [address] Care Team Providers Name Role Phone Taye Ron MD Primary Care Provider Reason for Visit Reason Comments Medication Management Encounter Details Date Type Department Care Team Description 01/01/2020 Specialty Pharmacy Pharmacy at [facility] Durga Mallory, [place] [phone] Social History Tobacco Use Types Packs/Day Years Used Date Former Smoker Cigarettes Quit: 01/11/19 99 Smokeless Tobacco: Never Used Alcohol Use Standard Drinks/Week Comments Not Currently 0 (1 standard drink = 0.6 oz pure alcoho l) Sex Assigned at Date Recorded Not on file documented as of this encounter Progress Notes Durga Mallory, [facility] - 01/01/2020 11:53 AM EDT Clinical Management Plan: Refill [facility] Medication Management (CMM) Carlos Gan is [...] beneficiary Provider: plan sponsor pharmacist [facility] Method of Contact: by telephone Cognitive [...] Shellfish Derived Medication Reconciliation Discrepancies (compared to [facility] med list) -none New medications: no New [...] were made at the appointment and that [facility] is providing recommendations (summary located at top of note) for provider review and follow up. Durga Mallory RPH 01/01/20 11:54 AM documented in this encounter Plan of Treatment Upcoming Encounters Date Type Specialty Care Team Description 04/27/2022 Tech Visit Vascular Surgery Anais Singh 04/27/2022 Office Visit Vascular Surgery Sulema Fajardo MD [facility] [address] VASCULAR SURGERY [place], [place] [address] (Wo rk) 05/18/2022 Office Visit Dermatology Alejandro Reese MD [address] [facility] DERMATOLOGY [place], [place] [address] (Wo rk) documented as of this encounter Visit Diagnoses Not on filedocumented in this encounter Care Teams Clean Rice Broker Relationship Specialty Start Date End Date Taye Ron MD PCP - General Family Medicine 11/04/16 [address] [place] [address] documented as of this encounter
--- OUTSIDE RECORDS SUMMARY | 2022-04-26 09:58 | XMS_ITS | Encounter Summary ---
:1950 Author Organization [facility] [place] [address] Care Team Providers Name Role Phone Taye Ron MD Primary Care Provider Reason for Visit Reason Comments Medication Management Encounter Details Date Type Department Care Team Description 05/19/2020 Specialty Pharmacy Pharmacy at [facility] [place] Durga Mallory, [place] [phone] Social History Tobacco Use Types Packs/Day Years Used Date Former Smoker Cigarettes Quit: 01/11/19 99 Smokeless Tobacco: Never Used Alcohol Use Standard Drinks/Week Comments Not Currently 0 (1 standard drink = 0.6 oz pure alcoho l) Sex Assigned at Date Recorded Not on file documented as of this encounter Progress Notes Durga Mallory [facility] - 05/19/2020 11:02 AM EDT [facility] Medication Management (CMM): Specialty Consult, Opt Out Carlos Gan Diagnosis: psoriasis Therapy Start Date: 03/2008 Contact in person or via telephone: telephone Mr. Carlos Gan is a 70 y.o. (1950) male who was contacted in regard to specialty medication. Spoke with patient regarding Humira. A review of the medication therapy was performed. The medication was refilled as scheduled, and all medication related questions and concerns were addressed. [facility] will follow up with the patient 7 days prior to next refill. Is the patient willing to proceed with the Clinical Assessment? No Summary and Recommendations: Dylan opted out of a 6 month consult today. He stated that his Humira therapy is going well. He said it is working well and has no problems. He is aware of our specialty pharmacy services. Economic Assessment: Patient is agreeable to medication copay: Yes Copay Amount: $2 Day Supply: 28 Date Needed: 05/29/2020 Therapy Assessment: Appropriate Therapy: Yes Current Medication Dosing/Route/Frequency: Humira 40mg/0.8 ml pen inject the contents of one pen subcutaneously every 14 days Additional equipment/supplies required: no Care Plan Reviewed and Approved by Pharmacist : Yes Problem List: Patient Active Problem List Diagnosis Code ??? Psoriasis L40.9 ??? Type 2 diabetes mellitus with complication E11.8 ??? Atherosclerosis of coronary artery I25.10 ??? Exertional angina I20.8 ??? Ischemic cardiomyopathy I25.5 ??? Hypertension I10 ??? Dyslipidemia E78.5 ??? Mitral regurgitation I34.0 ??? HLD (hyperlipidemia) E78.5 ??? Acute systolic heart failure I50.21 ??? NSTEMI (non-ST elevated myocardial infarction) I21.4 Medications Reviewed: Yes Medications reconciled: Yes Allergies Reviewed:Yes Allergies reconciled: Yes Pharmacist follow-up needed: Yes Informed patient of specialty pharmacy services: Yes -Patient will be provided with welcome packet: Yes Date to be provided: will check at next refill Delivery Method: mail -Patient returned signed Rights & Responsibilities: No Date to be provided: will check at next refill Delivery Method: mail -Patient is aware a licensed pharmacist is available 24 hours a day, 7 days a week to discuss medication-related questions or concerns: Yes -Patient verbalizes understanding of the common side effect profile of their medication. The patientis able to call 911 or seek urgent care if signs/symptoms of allergy or harmful adverse reactions occur: Yes Patient understands no changes to current drug regimen were made at the appointment and that the pharmacist is providing recommendations (summary located at top of note) for provider review and follow up. Durga Mallory RPH 05/19/20 11:03 AM documented in this encounter Plan of Treatment Upcoming Encounters Date Type Specialty Care Team Description 04/27/2022 [facility] Visit Vascular Surgery Anais Singh 04/27/2022 Office Visit Vascular Surgery Sulema Fajardo MD [facility] DR VASCULAR SURGERY [place], [place] [address] (Wo rk) 05/18/2022 Office Visit Dermatology Alejandro Reese MD [address] [place] [address] DERMATOLOGY [place], [place] [address] (Wo rk) documented as of this encounter Visit Diagnoses Not on filedocumented in this encounter Care Teams Animal Physiology Teacher Relationship Specialty Start Date End Date Taye Ron MD PCP - General Family Medicine 11/04/16 [address] [place] [address] documented as of this encounter
--- OUTSIDE RECORDS SUMMARY | 2022-04-26 09:58 | XMS_ITS | Encounter Summary ---
:1950 Author Organization [facility] [place] [address] Care Team Providers Name Role Phone Taye Ron MD Primary Care Provider Encounter Details Date Type Department Care Team Description 06/12/2020 Telephone Pharmacy [place] [facility] [place] [address] Social History Tobacco Use Types Packs/Day Years Used Date Former Smoker Cigarettes Quit: 01/11/19 99 Smokeless Tobacco: Never Used Alcohol Use Standard Drinks/Week Comments Not Currently 0 (1 standard drink = 0.6 oz pure alcoho l) Sex Assigned at Date Recorded Not on file documented as of this encounter Miscellaneous Notes Telephone Encounter - GenePablo nunezjake Monroy - 06/12/2020 9:19 AM EST Clinical Management Plan: Refill Specialty Pharmacy Consultation; Inna Arroyo Comprehensive Medication Management (CMM) Carlos Gan is a 70 y.o. (1950) [...] Shellfish Derived Medication Reconciliation Discrepancies (compared to [facility] med list) No New medications: No New medical conditions: No New allergies: No Adherence: Any missed doses? No Are you experiencing any side effects from your medications? No Patient understands no changes to current drug regimen were made.. Inna Arroyo 06/12/20 9:19 AM documented in this encounter Plan of Treatment Upcoming Encounters Date Type Specialty Care Team Description 04/27/2022 Tech Visit Vascular Surgery Anais Singh 04/27/2022 Office Visit Vascular Surgery Sulema Fajardo MD [facility] [address] VASCULAR SURGERY [place], [place] [address] (Wo rk) 05/18/2022 Office Visit Dermatology Alejandro Reese MD [address] [place] [address] DERMATOLOGY [place], [place] [address] (Wo rk) documented as of this encounter Visit Diagnoses Not on filedocumented in this encounter Care Teams Senior Compensation Consultant Relationship Specialty Start Date End Date Taye Ron MD PCP - General Family Medicine 11/04/16 [address] [facility] [place] [address] documented as of this encounter
--- OUTSIDE RECORDS SUMMARY | 2022-04-26 09:58 | XMS_ITS | Encounter Summary ---
:1950 [place] [address] Care Team Providers Name Role Phone Taye Ron MD Primary Care Provider Encounter Details Date Type Department Care Team Description 03/24/2020 [place] [phone] Social History Tobacco Use Types Packs/Day Years Used Date Former Smoker Cigarettes Quit: 01/11/19 99 Smokeless Tobacco: Never Used Alcohol Use Standard Drinks/Week Comments Not Currently 0 (1 standard drink = 0.6 oz pure alcoho l) Sex Assigned at Date Recorded Not on file documented as of this encounter Miscellaneous Notes Telephone Encounter - Yumiko Diego - 03/24/2020 10:36 AM EDT Clinical Management Plan: Refill Specialty [...] Shellfish Derived Medication Reconciliation Discrepancies (compared to [facility] med list) No New medications: No New medical conditions: No New allergies: No Adherence: Any missed doses? No Are you experiencing any side effects from your medications? No Patient understands no changes to current drug regimen were made.. Yumiko Diego 03/24/20 10:36 AM documented in this encounter Plan of Treatment Upcoming Encounters Date Type Specialty Care Team Description 04/27/2022 Tech Visit Vascular Surgery Anais Singh 04/27/2022 Office Visit Vascular Surgery Sulema Fajardo MD [facility] DR VASCULAR SURGERY [place], [place] [address] (Wo rk) 05/18/2022 Office Visit Dermatology Alejandro Reese MD [address] [place] [address] DERMATOLOGY [place], [place] [address] (Wo rk) documented as of this encounter Visit Diagnoses Not on filedocumented in this encounter Care Teams Ski Top Trimmer Relationship Specialty Start Date End Date Taye Ron MD PCP - General Family Medicine 11/04/[address] [place] [address] documented as of this encounter
--- OUTSIDE RECORDS SUMMARY | 2022-04-26 09:58 | XMS_ITS | Encounter Summary ---
:1950 Author Organization [facility] [place] [address] Care Team Providers Name Role Phone Taye Ron MD Primary Care Provider Reason for Visit Reason Comments Specialty Refill Management Encounter Details Date Type Department Care Team Description 05/20/2021 Specialty Pharmacy Pharmacy at [facility] Inna [place] [phone] Social History Tobacco Use Types Packs/Day Years Used Date Former Smoker Cigarettes Quit: 01/11/19 99 Smokeless Tobacco: Never Used Alcohol Use Standard Drinks/Week Comments Not Currently 0 (1 standard drink = 0.6 oz pure alcoho l) Sex Assigned at Date Recorded Not on file documented as of this encounter Progress Notes Inna Arroyo - 05/20/2021 3:51 PM EDT Clinical Management Plan: Refill Specialty Pharmacy Consultation; Inna Arroyo Comprehensive Medication Management (CMM) Carlossierra Gan is a 71 y.o. (1950) male who was contacted in regard to a specialty medication refill reminder. Contact made with patient regarding Humira. A review of [...] Shellfish Derived Medication Reconciliation Discrepancies (compared to [facility] med list) No Specialty Pharmacy Refill Questionnaire Refill Questionnaire 05/20/2021 What is the name of the specialty medication you are refilling? Humira Pen 40MG/0.8ML PNKT Are you taking any new medications? No Any new medical condition? No Any new allergies? No Any new side effects that are bothersome? No What date will you need this fill by? 05/28/2021 Adherence: Any missed doses? No Patient understands no changes to current drug regimen were made. Inna Arroyo 05/20/21 4:00 PM documented in this encounter Plan of Treatment Upcoming Encounters Date Type Specialty Care Team Description 04/27/2022 Tech Visit Vascular Surgery Anais Singh 04/27/2022 Office Visit Vascular Surgery Sulema Fajardo MD [facility] DR VASCULAR SURGERY [place], [place] [address] (Wo rk) 05/18/2022 Office Visit Dermatology Alejandro Reese MD [address] [place] [address] DERMATOLOGY [place], [place] [address] (Wo rk) documented as of this encounter Visit Diagnoses Not on filedocumented in this encounter Care Teams Mutual Fund Accountant Relationship Specialty Start Date End Date Taye Ron MD PCP - General Family Medicine 11/04/16 [address] [place] [address] documented as of this encounter
--- OUTSIDE RECORDS SUMMARY | 2022-04-26 09:58 | XMS_ITS | Encounter Summary ---
:1950 Author Organization [place] [place] [address] Care Team Providers Name Role Phone Taye Ron MD Primary Care Provider Reason for Visit Reason Onset Date Comments Prior Authorization 09/18/2019 Humira Encounter Details Date Type Department Care Team Description 09/18/2019 Telephone Pharmacy [place] [facility] [place]oy Crain Prior Authorization [facility] [place] [address] Social History Tobacco Use Types Packs/Day Years Used Date Former Smoker Cigarettes Quit: 01/11/19 99 Smokeless Tobacco: Never Used Alcohol Use Standard Drinks/Week Comments Not Currently 0 (1 standard drink = 0.6 oz pure alcoho l) Sex Assigned at Date Recorded Not on file documented as of this encounter Miscellaneous Notes Telephone Encounter - Leroy Crain - 09/18/2019 12:04 PM EST D- Specialty Pharmacy, Prior Authorization Approval Medication Name: Humira 40mg/0.8mL PNKT FILLABLE AT [facility]? yes APPROVAL DATES: 08/08/2019 - 09/09/2022 SPECIFIC INS REQUIREMENT: Can fill with Pharmacy CASE/REFERENCE # [id number] NOTIFICATION RECEIVED VIA: Fax COPAY: COPAY ASSISTANCE NEEDED?: NOTES: documented in this encounter Plan of Treatment Upcoming Encounters Date Type Specialty Care Team Description 04/27/2022 Tech Visit Vascular Surgery Anais Singh 04/27/2022 Office Visit Vascular Surgery Sulema Fajardo MD [facility] DR VASCULAR SURGERY [place], [place] [address] (Wo rk) 05/18/2022 Office Visit Dermatology Alejandro Reese MD [address] [place] [address] DERMATOLOGY [place], [place] [address] (Wo rk) documented as of this encounter Visit Diagnoses Not on filedocumented in this encounter Care Teams Clinical Trial Manager Relationship Specialty Start Date End Date Taye Ron MD PCP - General Family Medicine 11/04/16 [address] [place] [address] documented as of this encounter
--- OUTSIDE RECORDS SUMMARY | 2022-04-26 09:58 | XMS_ITS | Encounter Summary ---
:1950 Author Organization [facility] [place] [address] Care Team Providers Name Role Phone Taye Ron MD Primary Care Provider Reason for Visit Reason Comments Psoriasis Encounter Details Date Type Department Care Team Description 05/14/2021 Office Visit Dermatology at [facility] Alejandro Reese MD Psoriasis [address] [place] [address] DERMATOLOGY [phone] [place], [place] [address] (Wo rk) Social History Tobacco Use Types Packs/Day Years Used Date Former Smoker Cigarettes Quit: 01/11/19 99 Smokeless Tobacco: Never Used Alcohol Use Standard Drinks/Week Comments Not Currently 0 (1 standard drink = 0.6 oz pure alcoho l) Sex Assigned at Date Recorded Not on file documented as of this encounter Progress Notes Alejandro Reese MD - 05/14/2021 9:45 AM EDT Problem: 1. ??Follow-up psoriasis, on Humira 2. ??On Humira March 2008 through December 2011, then 2012 through 2015, then October 2016 until January 2019 3. ??Status post trial Raptiva October 2006 through February 2008 4. ??Status post port with good results but unable to deal with time constraints 5. ??Previously received phototherapy at [facility] 6. ??Unable to tolerate methotrexate or cyclosporine, lack of any significant response to Enbrel Dylan follows up for his 1 year check. His psoriasis continues to be fairly well controlled to his satisfaction with a biweekly injection of the Humira. He is tolerating the shots well. He has no infections injection site reactions or swelling at the sites. While he does have some mild involvement still small papules on the arms and legs they are minimally hyperkeratotic quite thin and is quite satisfied with the level of control. He has no involvement on the torso scalp or face Physical examination confirms the above Assessment plan: Psoriasis, controlled with Humira 1. Continue Humira using the 40 mg autoinjector injecting 1 pen subcutaneously every other week dispense 2 for a 1 month supply with 11 refills 2. Return to clinic in a year for repeat check. CC: Taye Ron MD ?? documented in this encounter Plan of Treatment Upcoming Encounters Date Type Specialty Care Team Description 04/27/2022 Tech Visit Vascular Surgery Samantha Anais Abhijit 04/27/2022 Office Visit Vascular Surgery Sulema Fajardo MD [facility] DR VASCULAR SURGERY [place], [place] [address] (Wo rk) 05/18/2022 Office Visit Dermatology Alejandro Reese MD [address] [place] [address] DERMATOLOGY [place], [place] [address] (Wo rk) documented as of this encounter Visit Diagnoses Diagnosis Psoriasis Other psoriasis documented in this encounter Care Teams Seafood Service Team Member Relationship Specialty Start Date End Date Taye Ron MD PCP - General Family Medicine 11/04/[address] [place] [address] documented as of this encounter
--- OUTSIDE RECORDS SUMMARY | 2022-04-26 09:58 | XMS_ITS | Encounter Summary ---
:1950 Author Organization [facility] [place] [address] Care Team Providers Name Role Phone Taye Ron MD Primary Care Provider Reason for Visit Reason Comments Medication Refill Encounter Details Date Type Department Care Team Description 09/09/2021 Specialty Pharmacy Pharmacy at [facility] [place] Norberto [place] [phone] Social History Tobacco Use Types Packs/Day Years Used Date Former Smoker Cigarettes Quit: 01/11/19 99 Smokeless Tobacco: Never Used Alcohol Use Standard Drinks/Week Comments Not Currently 0 (1 standard drink = 0.6 oz pure alcoho l) Sex Assigned at Date Recorded Not on file documented as of this encounter Progress Notes Norberto Hunter [facility] - 09/09/2021 11:20 AM EST Clinical Management Plan: Refill Specialty Pharmacy Consultation; Norberto Hunter [facility] Comprehensive Medication Management (CMM) Carlos Gan is a 71 y.o. (1950) male who was contacted in regard to a specialty medication refill reminder. Contact made with patient regarding humira. A review of the medication therapy was [...] Shellfish Derived Medication Reconciliation Discrepancies (compared to [facility] med list) No Specialty Pharmacy Refill Questionnaire Refill Questionnaire 09/09/2021 What is the name of the specialty medication you are refilling? Humira Are you taking any new medications? No Any new medical condition? No Any new allergies? No Any new side effects that are bothersome? No What date will you need this fill by? 09/17/2021 Adherence: Any missed doses? No Patient understands no changes to current drug regimen were made. Norberto Hunter RPH 09/09/21 11:21 AM documented in this encounter Plan of Treatment Upcoming Encounters Date Type Specialty Care Team Description 04/27/2022 Tech Visit Vascular Surgery Anais Singh 04/27/2022 Office Visit Vascular Surgery Sulema Fajardo MD [facility] [address] VASCULAR SURGERY [place], [place] [address] (Wo rk) 05/18/2022 Office Visit Dermatology Alejandro Reese MD [address] [place] [address] DERMATOLOGY [place], [place] [address] (Wo rk) documented as of this encounter Visit Diagnoses Not on filedocumented in this encounter Care Teams Carpenter'S Assistant Relationship Specialty Start Date End Date Taye Ron MD PCP - General Family Medicine 11/04/16 [address] [place] [phone] documented as of this encounter
--- OUTSIDE RECORDS SUMMARY | 2022-04-26 09:58 | XMS_ITS | Encounter Summary ---
:1950 Author Organization [facility] [place] [address] Care Team Providers Name Role Phone Taye Ron MD Primary Care Provider Reason for Visit Reason Comments Specialty Refill Management Encounter Details Date Type Department Care Team Description 07/13/2021 Specialty Pharmacy [place] [facility] Maeve Leonard Specialty [place] [phone] Social History Tobacco Use Types Packs/Day Years Used Date Former Smoker Cigarettes Quit: 01/11/19 99 Smokeless Tobacco: Never Used Alcohol Use Standard Drinks/Week Comments Not Currently 0 (1 standard drink = 0.6 oz pure alcoho l) Sex Assigned at Date Recorded Not on file documented as of this encounter Progress Notes Maeve Leonard CPHT - 07/13/2021 10:41 AM EST Clinical Management Plan: Refill Specialty Pharmacy Consultation; Maeve Leonard CPHT Comprehensive Medication Management (CMM) Carlos Gan is [...] Shellfish Derived Medication Reconciliation Discrepancies (compared to [facility] med list) No Specialty Pharmacy Refill Questionnaire Refill Questionnaire 07/13/2021 What is the name of the specialty medication you are refilling? Humira Are you taking any new medications? No Any new medical condition? No Any new allergies? No Any new side effects that are bothersome? No What date will you need this fill by? 07/23/2021 Adherence: Any missed doses? No Patient understands no changes to current drug regimen were made. Maeve Leonard CPHT 07/13/21 10:41 AM documented in this encounter Plan of Treatment Upcoming Encounters Date Type Specialty Care Team Description 04/27/2022 Tech Visit Vascular Surgery Anais Singh 04/27/2022 Office Visit Vascular Surgery Sulema Fajardo MD [facility] DR VASCULAR SURGERY [place], [place] [address] (Wo rk) 05/18/2022 Office Visit Dermatology Alejandro Reese MD [address] [place] [address] DERMATOLOGY [place], [place] [address] (Wo rk) documented as of this encounter Visit Diagnoses Not on filedocumented in this encounter Care Teams Usability Architect Relationship Specialty Start Date End Date Taye Ron MD PCP - General Family Medicine 11/04/16 [address] [place] [address] documented as of this encounter
--- OUTSIDE RECORDS SUMMARY | 2022-04-26 09:58 | XMS_ITS | Encounter Summary ---
:1950 Author Organization [facility] [place] [address] Care Team Providers Name Role Phone Taye Ron MD Primary Care Provider Reason for Referral Consultation (Emergency) - Authorized Specialty Diagnoses / Procedures Referred By Contact Refer red To Contact Vascular Surgery Diagnoses Non-healing wound of right heel / [place] Vascular Surg 3v MD Albin [place] [id number] [facility] Tori [place], [place] [address] [place] [phone] Referral ID Status Reason Start Date Expiration Visits Visits Date Requested Authorized [id number] Authorized Consult, 04/07/2022 04/07/2023 1 1 Test & Treat Encounter Details Date Type Department Care Team Description 04/07/2022 Transcribe Orders eDH Incoming Melvina Noel wound of Referrals MD Albin right heel [phone] [address] [place] [address] Social History Tobacco Use Types Packs/Day Years Used Date Former Smoker Cigarettes Quit: 01/11/19 99 Smokeless Tobacco: Never Used Alcohol Use Standard Drinks/Week Comments Not Currently 0 (1 standard drink = 0.6 oz pure alcoho l) Sex Assigned at Date Recorded Not on file documented as of this encounter Plan of Treatment Upcoming Encounters Date Type Specialty Care Team Description 04/27/2022 Tech Visit Vascular Surgery Samantha Anais Abhijit 04/27/2022 Office Visit Vascular Surgery Sulema Fajardo MD [facility] DR VASCULAR SURGERY [place], [place] [address] (Wo rk) 05/18/2022 Office Visit Dermatology Alejandro Reese MD [address] [place] [address] DERMATOLOGY [place], [place] [address] (Wo rk) Scheduled Referrals Name Type Priority Associated Diagnoses Order S chedule Referral to Outpatient Referral STAT Non-healing wound of Ordered: Vascular Surgery right heel 04/07/2022 documented as of this encounter Visit Diagnoses Diagnosis Non-healing wound of right heel documented in this encounter Care Teams Philosophy Professor Relationship Specialty Start Date End Date Taye Ron MD PCP - General Family Medicine 11/04/16 [address] [place] [address] documented as of this encounter
--- OUTSIDE RECORDS SUMMARY | 2022-04-26 09:58 | XMS_ITS | Encounter Summary ---
:1950 Author Organization [facility] [place] [address] Care Team Providers Name Role Phone Taye Ron MD Primary Care Provider Reason for Visit Reason Comments Medication Management Encounter Details Date Type Department Care Team Description 08/07/2019 Specialty Pharmacy [place] [facility] [place] [phone] Social History Tobacco Use Types Packs/Day Years Used Date Former Smoker Cigarettes Quit: 01/11/19 99 Smokeless Tobacco: Never Used Alcohol Use Standard Drinks/Week Comments Not Currently 0 (1 standard drink = 0.6 oz pure alcoho l) Sex Assigned at Date Recorded Not on file documented as of this encounter Progress Notes Cassandra Tucker RPH - 08/07/2019 9:14 AM EST Clinical Management Plan: Refill Specialty Pharmacy Consultation; Cassandra Tucker Bharti Comprehensive Medication Management (CMM) Carlossierra Gan is a 69 y.o. (1950) male [...] beneficiary Provider: plan sponsor pharmacist Visit Type: [facility] Follow-up Method of Contact: by telephone Cognitive [...] Shellfish Derived Medication Reconciliation Discrepancies (compared to [facility] med list) -None New medications: no New medical conditions: no [...] were made at the appointment and that [facility] is providing recommendations (summary located at top of note) for provider review and follow up. Cassandra Tucker RPH 08/07/19 9:15 AM *Caveat: [facility] documented in this encounter Plan of Treatment Upcoming Encounters Date Type Specialty Care Team Description 04/27/2022 Tech Visit Vascular Surgery Anais Singh 04/27/2022 Office Visit Vascular Surgery Sulema Fajardo MD [facility] VASCULAR SURGERY [place], [place] [address] (Go velez) 05/18/2022 Office Visit Dermatology Alejandro Reese MD [address] [place] [address] DERMATOLOGY [place], [place] [address] (Wo rk) documented as of this encounter Visit Diagnoses Not on filedocumented in this encounter Care Teams Manager Report Relationship Specialty Start Date End Date Taye Ron MD PCP - General Family Medicine 11/04/16 [address] [place] [address] documented as of this encounter
--- OUTSIDE RECORDS SUMMARY | 2022-04-26 09:58 | XMS_ITS | Encounter Summary ---
:1950 Author Organization [facility] [place] [address] Care Team Providers Name Role Phone Taye Ron MD Primary Care Provider Reason for Visit Reason Comments Medication Management Encounter Details Date Type Department Care Team Description 04/21/2020 Specialty Pharmacy [place] [facility]ga Mall[place], [place] [phone] Social History Tobacco Use Types Packs/Day Years Used Date Former Smoker Cigarettes Quit: 01/11/19 99 Smokeless Tobacco: Never Used Alcohol Use Standard Drinks/Week Comments Not Currently 0 (1 standard drink = 0.6 oz pure alcoho l) Sex Assigned at Date Recorded Not on file documented as of this encounter Progress Notes Durga Mallory, [facility] - 04/21/2020 10:11 AM EDT Clinical Management Plan: [facility]ill [facility] Comprehensive Medication Management (CMM) Carlos Gan [...] beneficiary Provider: plan sponsor pharmacist [facility] Follow-[facility] Method of Contact: by telephone Cognitive [...] Shellfish Derived Medication Reconciliation Discrepancies (compared to [facility] med list) -none New medications: no New [...] were made at the appointment and that [facility] is providing recommendations (summary located at top of note) for provider review and follow up. Durga Mallory RPH 04/21/20 10:12 AM documented in this encounter Plan of Treatment Upcoming Encounters Date Type Specialty Care Team Description 04/27/2022 Tech Visit Vascular Surgery Anais Singh 04/27/2022 Office Visit Vascular Surgery Sulema Fajardo MD [facility] DR VASCULAR SURGERY [place], [place] [address] (Wo rk) 05/18/2022 Office Visit Dermatology Alejandro Reese MD [address] [facility] DERMATOLOGY [place], [place] [address] (Wo rk) documented as of this encounter Visit Diagnoses Not on filedocumented in this encounter Care Teams Theater Teacher Relationship Specialty Start Date End Date Taye Ron MD PCP - General Family Medicine 11/04/16 [address] [place] [address] documented as of this encounter
--- OUTSIDE RECORDS SUMMARY | 2022-04-26 09:58 | XMS_ITS | Encounter Summary ---
:1950 Author Organization [facility] [place] [address] Care Team Providers Name Role Phone Taye Ron MD Primary Care Provider Reason for Visit Reason Comments Medication Management Encounter Details Date Type Department Care Team Description 09/06/2019 Specialty Pharmacy Pharmacy at [facility] Hazel Gupta, [place] [phone] Social History Tobacco Use Types Packs/Day Years Used Date Former Smoker Cigarettes Quit: 01/11/19 99 Smokeless Tobacco: Never Used Alcohol Use Standard Drinks/Week Comments Not Currently 0 (1 standard drink = 0.6 oz pure alcoho l) Sex Assigned at Date Recorded Not on file documented as of this encounter Progress Notes Hazel Gupta [facility] - 09/06/2019 11:35 AM EST Clinical Management Plan: Refill Specialty Pharmacy Consultation; Hazel Gupta [facility] Comprehensive Medication Management (CMM) Carlos Gan is [...] disease management, targeted medication review Referred By: pharmacist Recipient: beneficiary Provider: plan sponsor pharmacist Visit Type: [facility] Follow-up Method of Contact: by telephone Cognitive [...] Shellfish Derived Medication Reconciliation Discrepancies (compared to [facility] med list) -none New medications: no [...] made at the appointment and that [facility] is providing recommendations (summary located at top of note) for provider review and follow up. Hazel Gupta RPH 09/06/19 11:36 AM documented in this encounter Plan of Treatment Upcoming Encounters Date Type Specialty Care Team Description 04/27/2022 Tech Visit Vascular Surgery Anais Singh 04/27/2022 Office Visit Vascular Surgery Sulema Fajardo MD [facility] DR VASCULAR SURGERY [place], [place] [address] (Wo rk) 05/18/2022 Office Visit Dermatology Alejandro Reese MD [address] [place] [address] DERMATOLOGY [place], [place] [address] (Wo rk) documented as of this encounter Visit Diagnoses Not on filedocumented in this encounter Care Teams Geriatric Social Work Professor Relationship Specialty Start Date End Date Taye Ron MD PCP - General Family Medicine 11/04/16 [address] [place] [address] documented as of this encounter
--- OUTSIDE RECORDS SUMMARY | 2022-04-26 09:58 | XMS_ITS | Encounter Summary ---
:1950 Author Organization [facility] Address [address] [place] [address] Care Team Providers Name Role Phone Taye Ron MD Primary Care Provider Encounter Details Date Type Department Care Team Description 05/12/2020 Office Visit Dermatology at [facility] Alejandro Reese MD Psoriasis [address] Zev B [address] [place] [address] DERMATOLOGY [phone] [place], [place] [address] (Wo rk) Social History Tobacco Use Types Packs/Day Years Used Date Former Smoker Cigarettes Quit: 01/11/19 99 Smokeless Tobacco: Never Used Alcohol Use Standard Drinks/Week Comments Not Currently 0 (1 standard drink = 0.6 oz pure alcoho l) Sex Assigned at Date Recorded Not on file documented as of this encounter Progress Notes Alejandro Reese MD - 05/12/2020 3:00 PM EDT Problem: 1. 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 On Humira March 2008 through December 2011, then 2012 through 2015, then October 2016 until January 2019 3. Status post trial Raptiva October 2006 through February 2008 4. Status post port with good results but unable to deal with time constraints 5. Previously received phototherapy at [facility] 6. Unable to tolerate methotrexate or cyclosporine, lack of any significant response to Enbrel Dylan follows up for a one-year check. His psoriasis seems to be coming back a little bit on his armsand legs. He has been giving himself the Humira injections on a regular every 2 week basis. Is stillnot that bad but he has noticed that is gotten worse. Examination was a pleasant 70-year-old gentleman who has patches of psoriasis on the anterior shins a little bit on his elbows. These are thin minimally hyperkeratotic. He has no involvement on the torso scalp or face. Assessment plan: Psoriasis 1. For now continue Humira using the 40 mg autoinjector injecting x1 pen subcutaneously every other week 2. Patient is now getting his Humira from the [facility] specialty pharmacy. His co-pay is $2 per month. He is no longer part of the [employer] Card assistance program 3. If patient sees further worsening of his psoriasis, we will check to see which Biologics are formulary and recommend an alternative for him. CC: Taye Ron MD documented in this encounter Plan of Treatment Upcoming Encounters Date Type Specialty Care Team Description 04/27/2022 Tech Visit Vascular Surgery Anais Singh 04/27/2022 Office Visit Vascular Surgery Sulema Fajardo MD [facility] DR VASCULAR SURGERY [place], [place] [address] (Wo rk) 05/18/2022 Office Visit Dermatology Alejandro Reese MD [address] [facility] DERMATOLOGY [place], [place] [address] (Wo rk) documented as of this encounter Visit Diagnoses Diagnosis Psoriasis Other psoriasis documented in this encounter Care Teams Funeral Car Driver Relationship Specialty Start Date End Date Taye Ron MD PCP - General Family Medicine 11/04/[address] [place] [address] documented as of this encounter
--- OUTSIDE RECORDS SUMMARY | 2022-04-26 09:58 | XMS_ITS | Encounter Summary ---
:1950 Author Organization [facility] [place] [address] Care Team Providers Name Role Phone Taye Ron MD Primary Care Provider Reason for Visit Reason Comments Specialty Refill Management Encounter Details Date Type Department Care Team Description 06/18/2021 Specialty Pharmacy Pharmacy at [facility] Hazel Gupta, [place] [phone] Social History Tobacco Use Types Packs/Day Years Used Date Former Smoker Cigarettes Quit: 01/11/19 99 Smokeless Tobacco: Never Used Alcohol Use Standard Drinks/Week Comments Not Currently 0 (1 standard drink = 0.6 oz pure alcoho l) Sex Assigned at Date Recorded Not on file documented as of this encounter Progress Notes Hazel Gupta Bharti - 06/18/2021 2:42 PM EST Clinical Management Plan: Refill Specialty Pharmacy Consultation; Hazel Gupta [facility] Comprehensive Medication Management (CMM) Carlos Gan is [...] Shellfish Derived Medication Reconciliation Discrepancies (compared to [facility] med list) No Specialty Pharmacy Refill Questionnaire Refill Questionnaire 06/18/2021 What is the name of the specialty medication you are refilling? Humira Are you taking any new medications? No Any new medical condition? No Any new allergies? No Any new side effects that are bothersome? No What date will you need this fill by? 06/25/2021 Adherence: Any missed doses? No Patient understands no changes to current drug regimen were made. Hazel Gupta RPH 06/18/21 2:45 PM documented in this encounter Plan of Treatment Upcoming Encounters Date Type Specialty Care Team Description 04/27/2022 Tech Visit Vascular Surgery Anais Singh 04/27/2022 Office Visit Vascular Surgery Sulema Fajardo MD [facility] DR VASCULAR SURGERY [place], [place] [address] (Wo rk) 05/18/2022 Office Visit Dermatology Alejandro Reese MD [address] [place] [address] DERMATOLOGY [place], [place] [address] (Wo rk) documented as of this encounter Visit Diagnoses Not on filedocumented in this encounter Care Teams Milk Pickup Driver Relationship Specialty Start Date End Date Taye Ron MD PCP - General Family Medicine 11/04/16 [address] [place] [address] documented as of this encounter
--- OUTSIDE RECORDS SUMMARY | 2022-04-26 09:58 | XMS_ITS | Encounter Summary ---
:1950 Author Organization [facility] [place] [address] Care Team Providers Name Role Phone Taye Ron MD Primary Care Provider Reason for Visit Reason Comments Specialty Refill Management Encounter Details Date Type Department Care Team Description 12/28/2021 Specialty Pharmacy Pharmacy at [facility] Maeve Leonard Specialty Refill [facility] [place] [phone] Social History Tobacco Use Types Packs/Day Years Used Date Former Smoker Cigarettes Quit: 01/11/19 99 Smokeless Tobacco: Never Used Alcohol Use Standard Drinks/Week Comments Not Currently 0 (1 standard drink = 0.6 oz pure alcoho l) Sex Assigned at Date Recorded Not on file documented as of this encounter Progress Notes Maeve Leonard CPHT - 12/28/2021 3:52 PM EDT Clinical Management Plan: Refill Specialty [...] Shellfish Derived Medication Reconciliation Discrepancies (compared to [facility] med list) No Specialty Pharmacy Refill Questionnaire Refill Questionnaire 12/28/2021 What is the name of the specialty medication you are refilling? Humira Are you taking any new medications? No Any new medical condition? No Any new allergies? No Any new side effects that are bothersome? No What date will you need this fill by? 01/07/2022 Adherence: Any missed doses? No Patient understands no changes to current drug regimen were made. Maeve Leonard CPHT 12/28/21 3:54 PM documented in this encounter Plan of Treatment Upcoming Encounters Date Type Specialty Care Team Description 04/27/2022 Tech Visit Vascular Surgery Anais Singh 04/27/2022 Office Visit Vascular Surgery Sulema Fajardo MD [facility] DR VASCULAR SURGERY [place], [place] [address] (Wo rk) 05/18/2022 Office Visit Dermatology Alejandro Reese MD [address] [place] [address] DERMATOLOGY [place], [place] [address] (Wo rk) documented as of this encounter Visit Diagnoses Not on filedocumented in this encounter Care Teams Applications Support Lead Relationship Specialty Start Date End Date Taye Ron MD PCP - General Family Medicine 11/04/16 [address] [place] [address] documented as of this encounter
--- OUTSIDE RECORDS SUMMARY | 2022-04-26 09:58 | XMS_ITS | Encounter Summary ---
:1950 Author Organization [facility] [place] [address] Care Team Providers Name Role Phone Taye Ron MD Primary Care Provider Reason for Visit Reason Comments Medication Management Encounter Details Date Type Department Care Team Description 11/02/2019 Specialty Pharmacy Pharmacy at [facility] [place] [place] [phone] Social History Tobacco Use Types Packs/Day Years Used Date Former Smoker Cigarettes Quit: 01/11/19 99 Smokeless Tobacco: Never Used Alcohol Use Standard Drinks/Week Comments Not Currently 0 (1 standard drink = 0.6 oz pure alcoho l) Sex Assigned at Date Recorded Not on file documented as of this encounter Progress Notes Cassandra Tucker RPH - 11/02/2019 7:22 AM EDT Clinical Management Plan: Refill Specialty Pharmacy Consultation; Cassandra Tucker Bharti Comprehensive Medication Management (CMM) Carlossierra Castilloieu Mr. Carlos Gan is a 69 y.o. (1950) male who was contacted in regard to a specialty medication refill reminder. Britni Arroyo CPhT spoke with patient regarding Humira. A review of [...] beneficiary Provider: plan sponsor pharmacist Visit Type: [facility] Follow-up Method of Contact: by telephone Cognitive [...] Shellfish Derived Medication Reconciliation Discrepancies (compared to [facility] med list) -None New medications: no New [...] were made at the appointment and that [facility] is providing recommendations (summary located at top of note) for provider review and follow up. Cassandra Tucker RPH 11/02/19 7:22 AM *Documented on behalf of Britni Arroyo CPhT documented in this encounter Plan of Treatment Upcoming Encounters Date Type Specialty Care Team Description 04/27/2022 Tech Visit Vascular Surgery Anais Singh 04/27/2022 Office Visit Vascular Surgery Sulema Fajardo MD [facility] VASCULAR SURGERY [place], [place] [address] (Wo rk) 05/18/2022 Office Visit Dermatology Alejandro Reese MD [address] [place] [address] DERMATOLOGY [place], [place] [address] (Wo rk) documented as of this encounter Visit Diagnoses Not on filedocumented in this encounter Care Teams Nail Making Machine Setter Relationship Specialty Start Date End Date Taye Ron MD PCP - General Family Medicine 11/04/16 [address] [place] [address] documented as of this encounter
--- OUTSIDE RECORDS SUMMARY | 2022-04-26 09:58 | XMS_ITS | Encounter Summary ---
:1950 Author Organization [facility] [place] [address] Care Team Providers Name Role Phone Taye Ron MD Primary Care Provider Reason for Visit Reason Comments Specialty Refill Management Encounter Details Date Type Department Care Team Description 12/01/2021 Specialty Pharmacy Pharmacy at [facility] [place] Maeve Leonard Specialty Refill [place] [phone] Social History Tobacco Use Types Packs/Day Years Used Date Former Smoker Cigarettes Quit: 01/11/19 99 Smokeless Tobacco: Never Used Alcohol Use Standard Drinks/Week Comments Not Currently 0 (1 standard drink = 0.6 oz pure alcoho l) Sex Assigned at Date Recorded Not on file documented as of this encounter Progress Notes Maeve Leonard CPHT - 12/01/2021 9:59 AM EDT Clinical Management Plan: Refill Specialty Pharmacy Consultation; Maeve Leonard CPHT Comprehensive Medication Management (CMM) Carlos Castilloieu Mr. Carlos Gan is a 71 y.o. (1950) [...] Shellfish Derived Medication Reconciliation Discrepancies (compared to [facility] med list) No Specialty Pharmacy Refill Questionnaire Refill Questionnaire 12/01/2021 What is the name of the specialty medication you are refilling? Humira Are you taking any new medications? No Any new medical condition? No Any new allergies? No Any new side effects that are bothersome? No What date will you need this fill by? 12/10/2021 Adherence: Any missed doses? No Patient understands no changes to current drug regimen were made. Maeve Leonard CPHT 12/01/21 10:01 AM documented in this encounter Plan of Treatment Upcoming Encounters Date Type Specialty Care Team Description 04/27/2022 Tech Visit Vascular Surgery Anais Singh 04/27/2022 Office Visit Vascular Surgery Sulema Fajardo MD [facility] DR VASCULAR SURGERY [place], [place] [address] (Wo rk) 05/18/2022 Office Visit Dermatology Alejandro Reese MD [address] [place] [address] DERMATOLOGY [place], [place] [address] (Wo rk) documented as of this encounter Visit Diagnoses Not on filedocumented in this encounter Care Teams Clinical Rehab Specialist Relationship Specialty Start Date End Date Taye Ron MD PCP - General Family Medicine 11/04/16 [address] [place] [phone] documented as of this encounter
--- OUTSIDE RECORDS SUMMARY | 2022-04-26 09:58 | XMS_ITS | Encounter Summary ---
:1950 Author Organization [facility] [place] [address] Care Team Providers Name Role Phone Taye Ron MD Primary Care Provider Reason for Visit Reason Comments Specialty Refill Management Encounter Details Date Type Department Care Team Description 08/11/2021 Specialty Pharmacy Pharmacy [place] [facility] [place] Yumiko [place] [phone] Social History Tobacco Use Types Packs/Day Years Used Date Former Smoker Cigarettes Quit: 01/11/19 99 Smokeless Tobacco: Never Used Alcohol Use Standard Drinks/Week Comments Not Currently 0 (1 standard drink = 0.6 oz pure alcoho l) Sex Assigned at Date Recorded Not on file documented as of this encounter Progress Notes Yumiko Diego - 08/11/2021 3:58 PM EST Clinical Management Plan: Refill Specialty [...] Shellfish Derived Medication Reconciliation Discrepancies (compared to [facility] med list) No Specialty Pharmacy Refill Questionnaire Refill Questionnaire 08/11/2021 What is the name of the specialty medication you are refilling? Humira Are you taking any new medications? No Any new medical condition? No Any new allergies? No Any new side effects that are bothersome? No What date will you need this fill by? 08/20/2021 Adherence: Any missed doses? No Patient understands no changes to current drug regimen were made. Yumiko Diego 08/11/21 3:58 PM documented in this encounter Plan of Treatment Upcoming Encounters Date Type Specialty Care Team Description 04/27/2022 Tech Visit Vascular Surgery Anais Singh 04/27/2022 Office Visit Vascular Surgery Sulema Fajardo MD [facility] DR VASCULAR SURGERY [place], [place] [address] (Wo rk) 05/18/2022 Office Visit Dermatology Alejandro Reese MD [address] [place] [address] DERMATOLOGY [place], [place] [address] (Wo rk) documented as of this encounter Visit Diagnoses Not on filedocumented in this encounter Care Teams Manufacturing Analyst Relationship Specialty Start Date End Date Taye Ron MD PCP - General Family Medicine 11/04/16 [address] [place] [address] documented as of this encounter
--- OUTSIDE RECORDS SUMMARY | 2022-04-26 09:58 | XMS_ITS | Encounter Summary ---
:1950 Author Organization [facility] [place] [address] Care Team Providers Name Role Phone Taye Ron MD Primary Care Provider Reason for Visit Reason Comments Medication Management Patient Education Encounter Details Date Type Department Care Team Description 08/13/2021 Specialty Pharmacy [place] [facility] [place]inoso Medication [facility] [place] [facility] [place] [phone] Social History Tobacco Use Types Packs/Day Years Used Date Former Smoker Cigarettes Quit: 01/11/19 99 Smokeless Tobacco: Never Used Alcohol Use Standard Drinks/Week Comments Not Currently 0 (1 standard drink = 0.6 oz pure alcoho l) Sex Assigned at Date Recorded Not on file documented as of this encounter Progress Notes Arnoldo Reinoso RPH - 08/13/2021 3:26 PM EST Specialty Pharmacy Consultation; Arnoldo Reinoso Bharti Comprehensive Medication Management (CMM): Specialty Consult, Opt Out Carlos Gan Diagnosis: Psoriasis Therapy Start Date: 03/2008 Contact in person or via telephone: phone Mr. Carlos Gan is a 71 y.o. (1950) male who was contacted in regard to specialty medication. Spoke with patient regarding humira. A review of the medication therapy was performed. The medication was scheduled, and all medication related questions and concerns were addressed. The specialty pharmacy staff will follow up with the patient 5-7 days prior to next refill. Is the patient willing to proceed with the Clinical Assessment? No Summary and Recommendations: Today I spoke to Carlos Gan for a 6 month follow up consult on his humira therapy. He reports no changes to his medications, allergies, or medical conditions. He has not missed any doses and has been on humira for roughly 14 years. He states that it works well and he has no issues. He reports noside effects. He is aware of the specialty services and knows that he can call us at anytime if he ever has questions. He states that he has no signs or symptoms of infections today and will let us know if any occur. We will continue to reach out to him monthly for refills and then biannually for consults going forward. Economic Assessment: Patient is agreeable to medication copay: Yes Copay Amount: $2 Day Supply: 28 Date Needed: 08/14/2021 Therapy Assessment: Appropriate Therapy: Yes Current Medication Dosing/Route/Frequency: humira 40mg subq q 14 days Additional equipment/supplies required: no Care [...] infarction) I21.4 Medications Reviewed: Yes Medications reconciled: No Allergies Reviewed:Yes Allergies reconciled: No Pharmacist follow-up needed: Yes Informed patient of specialty pharmacy services: Yes Welcome Packet and Rights and Responsibilities: Patient provided welcome packet/rights and responsibilities: Yes Date Confirmed: 01/14/21 -Patient is aware a licensed pharmacist is [...] note) for provider review and follow up. Arnoldo Reinoso RPH 08/13/21 3:31 PM documented in this encounter Plan of Treatment Upcoming Encounters Date Type Specialty Care Team Description 04/27/2022 Tech Visit Vascular Surgery Samantha Anais M 04/27/2022 Office Visit Vascular Surgery Sulema Fajardo MD [facility] [address] VASCULAR SURGERY [place], [place] [address] (Wo rk) 05/18/2022 Office Visit Dermatology Alejandro Reese MD [address] [place] [address] DERMATOLOGY [place], [place] [address] (Wo rk) documented as of this encounter Visit Diagnoses Not on filedocumented in this encounter Care Teams Modern Languages Professor Relationship Specialty Start Date End Date Taye Ron MD PCP - General Family Medicine 11/04/[address] [place] [phone] documented as of this encounter
--- OUTSIDE RECORDS SUMMARY | 2022-04-26 09:58 | XMS_ITS | Clinical Summary ---
:1950 Author Organization [facility] Address [address] [place] [address] Care Team Providers Name Role Phone Taye Ron MD Primary Care Provider Allergies Active Allergy Reactions Severity Noted Date Comments Cis Free Text Allergy Hymeno ptera (Bee) Stings. Methotrexate Other (See Comments) High 07/20/2011 Increas ed bleeding, lethargic Shellfish Containing Anaphylaxis, Other High 06/14/2017 N umbness, tingling of Products (See Comments) the tongue. N ever had any problem wit h contrast and ne isis used steroids b efore cath Shellfish Derived Medications Medication Sig Dispensed Refills Start Date End Date Status multivitamin 0 06/20/2009 Active (THERAGRAN) tablet [place]-3 Fatty Acids Take by mouth. 0 Active (FISH OIL) 500 mg Cap blood sugar Use to test blood 400 each 3 05/23/2015 Active diagnostic strips sugar 4 times daily, (Touristlink ULTRA diag code E11.9 TEST) Strip traZODone (DESYREL) Take 50 mg by mouth. 0 Active 50 mg Tablet gabapentin Take 300 mg by mouth 0 Active (NEURONTIN) 300 mg Three times a day. Capsule aspirin 81 mg Take 81 mg by mouth 0 Active Tablet, Delayed Daily. Release (E.C.) nitroGLYcerin Place 1 tablet under 90 tablet 12 07/21/2018 Active (NITROSTAT) 0.4 mg the tongue every 5 Tablet, Sublingual minutes as needed for Chest pain. insulin aspart U-100 Inject 0-33 Units 12 02/06/2019 Active (NOVOLOG) Insulin subcutaneously 3 Pen times daily (with meals). As instructed correction factor of 10 and 1:5 insulin to carb ratio see instructions metFORMIN Take 0.5 tablets by 60 tablet 12 02/06/2019 Active (GLUCOPHAGE) 1,000 mouth 2 times daily mg Tablet (with meals). Increase to 1000 mg BID after 2 doses insulin glargine Inject 30 Units 10 mL 12 02/06/2019 Active Solution subcutaneously 2 times daily. clopidogrel (PLAVIX) Take 1 tablet by 90 tablet 3 02/07/2019 Active 75 mg Tablet mouth daily. spironolactone Take 0.5 tablets by 90 tablet 0 02/07/2019 Active (ALDACTONE) 50 mg mouth daily. Tablet furosemide (LASIX) Take 1 tablet by 30 tablet 0 02/07/2019 Active 20 mg Tablet mouth daily. acetaminophen Take 2 tablets by 0 02/06/2019 Active (TYLENOL) 500 mg mouth every 6 hours Tablet as needed for Pain. empagliflozin Take 25 mg by mouth 0 Active (Jardiance) 25 mg daily. Pt stated he TabletIndications: was started on type 2 diabetes Jardiance 25 mg tab mellitus recently Indications: type 2 diabetes mellitus Levemir FlexTouch INJECT 55 UNITS 0 03/31/2021 Active U-100 Insuln Insulin SUBCUTANEOUSLY TWICE Pen A DAY Victoza 3-Yousuf 0.6 INJECT 1.8MG 0 03/31/2021 Active mg/0.1 mL (18 mg/3 SUBCUTANEOUSLY ONCE mL) Pen Injector DAILY lisinopriL (Zestril) TAKE ONE TABLET BY 0 02/07/2021 Active 2.5 mg Tablet MOUTH EVERY DAY Tab-A-Aisha 400 mcg TAKE ONE TABLET BY 0 03/04/2021 Active Tablet MOUTH EVERY DAY BD Ultra-Fine Mini INJECT SIX TIMES PER 0 12/21/2020 Active Pen Needle 31 gauge DAY x 10/21 Needle atorvastatin TAKE 1 TABLET BY 0 03/14/2021 Active (Lipitor) 40 mg MOUTH EVERY NIGHT Tablet Vitamin D 25 mcg TAKE ONE CAPSULE BY 0 03/07/2021 Active (1,000 unit) Capsule MOUTH EVERY DAY Magnesium Oxide 500 TAKE ONE TABLET BY 0 02/07/2021 Active mg Tablet MOUTH TWICE A DAY metoprolol succinate TAKE ONE TABLET BY 0 02/28/2021 Active XL (Toprol-XL) 25 mg MOUTH EVERY DAY Tablet Sustained Release 24 hr Humira Pen 40 mg/0.8 Inject 0.8 mLs 1 kit 6 03/23/2022 Active mL Pen Injector Kit subcutaneously every 14 days. Active Problems Problem Noted Date Atherosclerosis of coronary artery 07/19/2018 Overview: Overview: Had Catheterization in 2005 [place] [facility] [place] -- s howed two vessel disease that was not intervened upon (LAD and Circ). [facility] 06/15 showed MVD, not candidate for C ABG Exertional angina 07/19/2018 Ischemic cardiomyopathy 07/19/2018 Hypertension 07/19/2018 Dyslipidemia 07/19/2018 Mitral regurgitation 07/19/2018 HLD (hyperlipidemia) 06/16/2017 Acute systolic heart failure 06/16/2017 NSTEMI (non-ST elevated myocardial infarction) 017 Type 2 diabetes mellitus with complication 05/21/2015 Overview: Dxd 1985 Psoriasis 09/07/2012 Resolved Problems Problem Noted Date Resolved Date CIS - Type 2 DM 08/08/1984 05/21/2015 Encounters Date Type Specialty Care Team Description 04/08/2022 Orders Only Vascular Surgery Carolina Rodriguez, Heel ulceration, SECURITIES VAULT SUPERVISOR right, with unspecified sev erity 04/07/2022 Transcribe Orders Primary Care Sabra Noel-romina g wound of MD Albin right heel 04/06/2022 Specialty Pharmacy Pharmacy Elba Bell Spe cialty Refill ORACLE DATABASE ANALYST Management 03/22/2022 Refill Dermatology Alejandro Reese MD 03/22/2022 Specialty Pharmacy Pharmacy Maeve Leonard ialty Refill T, ORACLE DATABASE ANALYST Management 02/24/2022 Specialty Pharmacy Pharmacy Hazel Gupta [facility] Medic ation Management; Specialty Refil l Management from Last 3 Months Family History Medical History Relation Comments Coronary Artery Disease Brother Pulmonary Embolism Father Relation Status Comments Brother Father Social History Tobacco Use Types Packs/Day Years Used Date Former Smoker Cigarettes Quit: 01/11/19 99 Smokeless Tobacco: Never Used Tobacco Cessation: Counseling Given: Yes Alcohol Use Standard Drinks/Week Comments Not Currently 0 (1 standard drink = 0.6 oz pure alcoho l) Sex Assigned at Date Recorded Not on file Last Filed Vital Signs Vital Sign Reading Time Taken Comments Blood Pressure 127/68 2019 1:09 PM EDT Pulse 84 2019 1:09 PM EDT Temperature 37 ??C (98.6 ??F) 02/06/2019 12:02 PM EDT Respiratory Rate 17 02/06/2019 12:02 PM EDT Oxygen Saturation 95% 2019 1:09 PM EDT Inhaled Oxygen Concentration - - Weight 125.2 kg (276 lb) 2019 1:09 PM EDT Height 167.6 cm (5' 6) 2019 1:09 PM EDT Body Mass Index 44.55 2019 1:09 PM EDT Plan of Treatment Upcoming Encounters Date Type Specialty Care Team Description 04/27/2022 Tech Visit Vascular Surgery Anais Singh 04/27/2022 Office Visit Vascular Surgery Sulema Fajardo MD [facility] [address] VASCULAR SURGERY [place], [place] [address] (Wo rk) 05/18/2022 Office Visit Dermatology Alejandro Reese MD [address] [facility] DERMATOLOGY [place], [place] [address] (Wo rk) Health Maintenance Due Date Last Done Comments Covid-19 Vaccine (#1) 1957 Pneumoccocal Vaccine: 65+ (1 - 1958 PCV) DM Opthalmology Exam 1962 Hepatitis C Screening 1970 Tdap adult 1971 Tetanus vaccine 1971 Colonoscopy 1997 Zoster vaccine (1 of 2) 2002 DM Urine Microalbumin yearly 05/21/2016 05/21/2015 AAA Screen 2017 DM Hemoglobin A1c 04/29/2019 01/27/2019, 05/21/2015 DM Creatinine yearly 02/04/2020 02/03/2019, 02/01/2019, 01/31/2019, Additional history exists Influenza (Flu) vaccine (1 of 1 - 04/08/2022 Influenza standard series) Medical Devices Implanted Type Area Insurance Broker Device Shelf Model / Identifier Expiration Serial / Date Lot Cable,Cut,Edg,Blnt,Ss,3tpr ([id number]) - [id number] Midline: [employer] 05/31/2023 [id number] / Implanted: Qty: 1 on 01/31/2019 by Trip Lin MD at [facility] TECHNOLOGY - N/A / [id number] Insurance Payer Benefit Plan / Subscriber ID Effective Dates Phone Addre ss Type Group MEDICARE MEDICARE PART A [id number] 2018-Scarlett [phone] [id number] [place] [phone] Advance Directives Documents on File Type Date Recorded 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 on Advance Directives and Living 01/30/2019 10:02 AM 06/06/17 Will Latest Code Status on File Code Status Date Activated Date Inactivated Comments Full Code 01/31/2019 7:41 PM 02/06/2019 4:35 PM Does patient have capacity to make decision: Yes Full Code 01/26/2019 10:29 PM 01/31/2019 7:41 PM Does patient have capacity to make Yes decision: Content of discussion: Wants us to try if there is a chance of rcovery , doesn't want to go for any heroic measures Care Teams Infusion Therapy Nurse Relationship Specialty Start Date End Date Taye Ron MD PCP - General Family Medicine 11/04/16 [address] [place] [phone]
--- OUTSIDE RECORDS SUMMARY | 2022-04-26 09:58 | XMS_ITS | Encounter Summary ---
:1950 Author Organization [place] [address] Care Team Providers Name Role Phone Taye Ron MD Primary Care Provider Reason for Visit Reason Comments Specialty Refill Management Encounter Details Date Type Department Care Team Description 10/12/2021 Specialty Pharmacy Pharmacy [place] [facility] [place] Yumiko [place] [phone] Social History Tobacco Use Types Packs/Day Years Used Date Former Smoker Cigarettes Quit: 01/11/19 99 Smokeless Tobacco: Never Used Alcohol Use Standard Drinks/Week Comments Not Currently 0 (1 standard drink = 0.6 oz pure alcoho l) Sex Assigned at Date Recorded Not on file documented as of this encounter Progress Notes Yumiko Diego - 10/12/2021 12:26 PM EST Clinical Management Plan: Refill Specialty [...] Shellfish Derived Medication Reconciliation Discrepancies (compared to [facility] med list) No Specialty Pharmacy Refill Questionnaire Refill Questionnaire 10/12/2021 What is the name of the specialty medication you are refilling? Humira 40mg0.8mL pens Are you taking any new medications? No Any new medical condition? No Any new allergies? No Any new side effects that are bothersome? No What date will you need this fill by? 10/15/2021 Adherence: Any missed doses? No Patient understands no changes to current drug regimen were made. Yumiko Diego 10/12/21 12:27 PM documented in this encounter Plan of Treatment Upcoming Encounters Date Type Specialty Care Team Description 04/27/2022 Tech Visit Vascular Surgery Anais Singh 04/27/2022 Office Visit Vascular Surgery Sulema Fajardo MD [facility] [address] VASCULAR SURGERY [place], [place] [address] (Wo rk) 05/18/2022 Office Visit Dermatology Alejandro Reese MD [address] [place] [address] DERMATOLOGY [place], [place] [address] (Wo rk) documented as of this encounter Visit Diagnoses Not on filedocumented in this encounter Care Teams Wooden Box Maker Relationship Specialty Start Date End Date Taye Ron MD PCP - General Family Medicine 11/04/[address] [place] [phone] documented as of this encounter
--- OUTSIDE RECORDS SUMMARY | 2022-04-26 09:58 | XMS_ITS | Encounter Summary ---
:1950 Author Organization [facility] [place] [address] Care Team Providers Name Role Phone Taye Ron MD Primary Care Provider Reason for Visit Reason Comments Specialty Refill Management Encounter Details Date Type Department Care Team Description 10/27/2020 Specialty Pharmacy Pharmacy at [facility] [place] Hazel Gupta, [place] [phone] Social History Tobacco Use Types Packs/Day Years Used Date Former Smoker Cigarettes Quit: 01/11/19 99 Smokeless Tobacco: Never Used Alcohol Use Standard Drinks/Week Comments Not Currently 0 (1 standard drink = 0.6 oz pure alcoho l) Sex Assigned at Date Recorded Not on file documented as of this encounter Progress Notes Hazel Gupta [facility] - 10/27/2020 2:01 PM EDT Clinical Management Plan: Refill Specialty Pharmacy Consultation; Hazel Gupta [facility] Comprehensive Medication Management (CMM) Carlos Gan is [...] Shellfish Derived Medication Reconciliation Discrepancies (compared to [facility] med list) No Specialty Pharmacy Refill Questionnaire Refill Questionnaire 10/27/2020 What is the name of the specialty medication you are refilling? Humira Are you taking any new medications? No Any new medical condition? No Any new allergies? No Any new side effects that are bothersome? No Adherence: Any missed doses? No Patient understands no changes to current drug regimen were made.. Hazel Gupta RPH 10/27/20 2:02 PM documented in this encounter Plan of Treatment Upcoming Encounters Date Type Specialty Care Team Description 04/27/2022 Tech Visit Vascular Surgery Anais Singh 04/27/2022 Office Visit Vascular Surgery Sulema Fajardo MD [facility] DR VASCULAR SURGERY [place], [place] [address] (Wo rk) 05/18/2022 Office Visit Dermatology Alejandro Reese MD [address] [place] [address] DERMATOLOGY [place], [place] [address] (Wo rk) documented as of this encounter Visit Diagnoses Not on filedocumented in this encounter Care Teams Label Printing Machinist Relationship Specialty Start Date End Date Taye Ron MD PCP - General Family Medicine 11/04/16 [address] [place] [address] documented as of this encounter
--- OUTSIDE RECORDS SUMMARY | 2022-04-26 09:58 | XMS_ITS | Encounter Summary ---
:1950 Author Organization [facility] [place] [address] Care Team Providers Name Role Phone Taye Ron MD Primary Care Provider Encounter Details Date Type Department Care Team Description 09/08/2020 Telephone Pharmacy [place] [facility] [place] [phone] Social History Tobacco Use Types Packs/Day Years Used Date Former Smoker Cigarettes Quit: 01/11/19 99 Smokeless Tobacco: Never Used Alcohol Use Standard Drinks/Week Comments Not Currently 0 (1 standard drink = 0.6 oz pure alcoho l) Sex Assigned at Date Recorded Not on file documented as of this encounter Miscellaneous Notes Telephone Encounter - Maeve Leonard CPHT - 09/08/2020 9:18 AM EST Clinical Management Plan: Refill Specialty [...] Shellfish Derived Medication Reconciliation Discrepancies (compared to [facility] med list) No New medications: No New medical conditions: No New allergies: No Adherence: Any missed doses? No Are you experiencing any side effects from your medications? No Patient understands no changes to current drug regimen were made.. Maeve Leonard CPHT 09/08/20 9:18 AM documented in this encounter Plan of Treatment Upcoming Encounters Date Type Specialty Care Team Description 04/27/2022 Tech Visit Vascular Surgery Anais Singh 04/27/2022 Office Visit Vascular Surgery Sulema Fajardo MD [facility] [address] VASCULAR SURGERY [place], [place] [address] (Wo rk) 05/18/2022 Office Visit Dermatology Alejandro Reese MD [address] [place] [address] DERMATOLOGY [place], [place] [address] (Wo rk) documented as of this encounter Visit Diagnoses Not on filedocumented in this encounter Care Teams Supervisor Customer Services Relationship Specialty Start Date End Date Taye Ron MD PCP - General Family Medicine 11/04/16 [address] [place] [phone] documented as of this encounter
--- OUTSIDE RECORDS SUMMARY | 2022-04-26 09:58 | XMS_ITS | Encounter Summary ---
:1950 Author Organization [facility] [place] [address] Care Team Providers Name Role Phone Taye Ron MD Primary Care Provider Reason for Visit Reason Comments Medication Refill Encounter Details Date Type Department Care Team Description 12/02/2019 Refill Cardiology [place] [facility] [place] Jerome Norwood MD Medication Refill [facility] [place] [phone] CARDIOLOGY DEPT. [phone] [place], [place] [address] (Wo rk) Social History Tobacco Use Types [...] Office Visit Vascular Surgery Sulema Fajardo MD [facility] VASCULAR SURGERY [place], [place] [address] (Wo rk) 05/18/2022 Office Visit Dermatology Alejandro Reese MD [address] [facility] DERMATOLOGY [place], [place] [address] (Wo rk) documented as of this encounter Visit Diagnoses Not on filedocumented in this encounter Care Teams Supervisor Grounds Relationship Specialty Start Date End Date Taye Ron MD PCP - General Family Medicine 11/04/16 [address] [place] [address] documented as of this encounter
--- OUTSIDE RECORDS SUMMARY | 2022-04-26 09:58 | XMS_ITS | Encounter Summary ---
:1950 Author Organization [facility] [place] [address] Care Team Providers Name Role Phone Taye Ron MD Primary Care Provider Reason for Visit Reason Comments Specialty Refill Management Encounter Details Date Type Department Care Team Description 02/24/2021 Specialty Pharmacy Pharmacy [place] [facility] [place] Cassandra [place] [phone] Social History Tobacco Use Types Packs/Day Years Used Date Former Smoker Cigarettes Quit: 01/11/19 99 Smokeless Tobacco: Never Used Alcohol Use Standard Drinks/Week Comments Not Currently 0 (1 standard drink = 0.6 oz pure alcoho l) Sex Assigned at Date Recorded Not on file documented as of this encounter Progress Notes Cassandra Tucker Bharti - 02/24/2021 2:26 PM EDT Clinical Management Plan: Refill Specialty Pharmacy Consultation; Cassandra Tucker [facility] Comprehensive Medication Management (CMM) Carlossierra Castilloieu Mr. Carlos Gan is a 70 y.o. [...] Shellfish Derived Medication Reconciliation Discrepancies (compared to [facility] med list) No Specialty Pharmacy Refill Questionnaire Refill Questionnaire 02/24/2021 What is the name of the specialty medication you are refilling? Humira Are you taking any new medications? No Any new medical condition? No Any new allergies? No Any new side effects that are bothersome? No What date will you need this fill by? 2021 Adherence: Any missed doses? No Patient understands no changes to current drug regimen were made.. Cassandra Tucker RPH 02/24/21 2:28 PM documented in this encounter Plan of Treatment Upcoming Encounters Date Type Specialty Care Team Description 04/27/2022 Tech Visit Vascular Surgery Anais Singh 04/27/2022 Office Visit Vascular Surgery Sulema Fajardo MD [facility] DR VASCULAR SURGERY [place], [place] [address] (Wo rk) 05/18/2022 Office Visit Dermatology Alejandro Reese MD [address] [place] [address] DERMATOLOGY [place], [place] [address] (Wo rk) documented as of this encounter Visit Diagnoses Not on filedocumented in this encounter Care Teams Metalizing Machine Operator Relationship Specialty Start Date End Date Taye Ron MD PCP - General Family Medicine 11/04/16 [address] [place] [phone] documented as of this encounter
--- OUTSIDE RECORDS SUMMARY | 2022-04-26 09:58 | XMS_ITS | Encounter Summary ---
:1950 Author Organization [facility] [place] [address] Care Team Providers Name Role Phone Taye Ron MD Primary Care Provider Reason for Visit Reason Comments Specialty Refill Management Encounter Details Date Type Department Care Team Description 03/22/2022 Specialty Pharmacy Pharmacy at [facility] Maeve Leonard Specialty Refill [facility] [place] [phone] Social History Tobacco Use Types Packs/Day Years Used Date Former Smoker Cigarettes Quit: 01/11/19 99 Smokeless Tobacco: Never Used Alcohol Use Standard Drinks/Week Comments Not Currently 0 (1 standard drink = 0.6 oz pure alcoho l) Sex Assigned at Date Recorded Not on file documented as of this encounter Progress Notes Maeve Leonard CPHT - 03/22/2022 9:16 AM EDT Clinical Management Plan: Refill Specialty Pharmacy Consultation; Maeve Leonard CPHT Comprehensive Medication Management (CMM) Carlos Gan is a 72 y.o. (1950) male who was contacted in [...] Shellfish Derived Medication Reconciliation Discrepancies (compared to [facility] med list) No Specialty Pharmacy Refill Questionnaire Refill Questionnaire 03/22/2022 What is the name of the specialty medication you are refilling? Humira Are you taking any new medications? No Any new medical condition? No Any new allergies? No Any new side effects that are bothersome? No What date will you need this fill by? 04/01/2022 Adherence: Any missed doses? No Patient understands no changes to current drug regimen were made. Maeve Leonard CPHT 03/22/22 9:18 AM documented in this encounter Plan of Treatment Upcoming Encounters Date Type Specialty Care Team Description 04/27/2022 Tech Visit Vascular Surgery Anais Singh 04/27/2022 Office Visit Vascular Surgery Sulema Fajardo MD [facility] DR VASCULAR SURGERY [place], [place] [address] (Wo rk) 05/18/2022 Office Visit Dermatology Alejandro Reese MD [address] [place] [address] DERMATOLOGY [place], [place] [address] (Wo rk) documented as of this encounter Visit Diagnoses Not on filedocumented in this encounter Care Teams Director Of Programming Relationship Specialty Start Date End Date Taye Ron MD PCP - General Family Medicine 11/04/16 [address] [place] [phone] documented as of this encounter
--- OUTSIDE RECORDS SUMMARY | 2022-04-26 09:58 | XMS_ITS | Encounter Summary ---
:1950 Author Organization [facility] [place] [address] Care Team Providers Name Role Phone Taye Ron MD Primary Care Provider Reason for Visit Reason Comments Specialty Refill Management Encounter Details Date Type Department Care Team Description 04/06/2022 Specialty Pharmacy Pharmacy at [facility]ba Bell [facility] [place] [phone] Social History Tobacco Use Types Packs/Day Years Used Date Former Smoker Cigarettes Quit: 01/11/19 99 Smokeless Tobacco: Never Used Alcohol Use Standard Drinks/Week Comments Not Currently 0 (1 standard drink = 0.6 oz pure alcoho l) Sex Assigned at Date Recorded Not on file documented as of this encounter Progress Notes Elba Bell CPHT - 04/06/2022 8:49 AM EDT Clinical Management Plan: Refill Specialty Pharmacy Consultation; Elba Bell CPHT Comprehensive Medication Management (CMM) Carlossierra Castilloieu Mr. Carlos Gan is a 72 y.o. (1950) [...] Shellfish Derived Medication Reconciliation Discrepancies (compared to [facility] med list) No Specialty Pharmacy Refill Questionnaire Refill Questionnaire 04/06/2022 What is the name of the specialty medication you are refilling? Humira Are you taking any new medications? No Any new medical condition? No Any new allergies? No Any new side effects that are bothersome? No What date will you need this fill by? 04/22/2022 Adherence: Any missed doses? No Patient understands no changes to current drug regimen were made. Elba Bell CPHT 04/06/22 8:50 AM documented in this encounter Plan of Treatment Upcoming Encounters Date Type Specialty Care Team Description 04/27/2022 Tech Visit Vascular Surgery Anais Singh 04/27/2022 Office Visit Vascular Surgery Sulema Fajardo MD [facility] [address] VASCULAR SURGERY [place], [place] [address] (Wo rk) 05/18/2022 Office Visit Dermatology Alejandro Reese MD [address] [place] [address] DERMATOLOGY [place], [place] [address] (Wo rk) documented as of this encounter Visit Diagnoses Not on filedocumented in this encounter Care Teams Ostrich Farm Worker Relationship Specialty Start Date End Date Taye Ron MD PCP - General Family Medicine 11/04/16 [address] [facility] [place] [phone] documented as of this encounter
--- OUTSIDE RECORDS SUMMARY | 2022-04-26 09:58 | XMS_ITS | Encounter Summary ---
:1950 Author Organization [facility] [place] [address] Care Team Providers Name Role Phone Taye Ron MD Primary Care Provider Reason for Visit Reason Comments Medication Management Encounter Details Date Type Department Care Team Description 12/04/2020 Specialty Pharmacy Pharmacy at [facility] [place], Medication Management [facility] [place] [phone] Social History Tobacco Use Types Packs/Day Years Used Date Former Smoker Cigarettes Quit: 01/11/19 99 Smokeless Tobacco: Never Used Alcohol Use Standard Drinks/Week Comments Not Currently 0 (1 standard drink = 0.6 oz pure alcoho l) Sex Assigned at Date Recorded Not on file documented as of this encounter Progress Notes Jayla Joshua RPH - 12/04/2020 3:34 PM EDT Specialty Pharmacy Consultation; Jayla Joshua [facility] Comprehensive Medication Management (CMM): Specialty Consult, Opt Out Carlos Gan Diagnosis: Psoriasis Therapy Start Date: 03/2008 Contact in person or via telephone: Phone Mr. Carlos Gan is a 70 y.o. (1950) male who was contacted in regard to specialty medication. Spoke with patient regarding Humira. A review of the medication therapy was performed. The medication was refilled as scheduled, and all medication related questions and concerns were addressed. [facility] will follow up with the patient 5-7 days prior to next refill. Is the patient willing to proceed with the Clinical Assessment? No Summary and Recommendations: Carlos had no questions or concerns regarding Humira and opted out of a followu p consult today. [facility] will reach out again at the next refill. Economic Assessment: Patient is agreeable to medication copay: Yes Copay Amount: $2 Day Supply: 28 Date Needed: 12/11/20 Therapy Assessment: Appropriate Therapy: Yes Current Medication Dosing/Route/Frequency: Humira 40mg/0.8ml PNKT inject 1 pen subq every 2 weeks Additional equipment/supplies required: no Care Plan Reviewed [...] welcome packet: Yes Date to be provided: Will check at next refill Delivery Method: Mail -Patient returned signed Rights & Responsibilities: Yes Date to be provided: Will check at next refill Delivery Method: Mail -Patient is aware a licensed pharmacist is [...] review and follow up. Jayla Joshua RPH 12/04/20 3:35 PM documented in this encounter Plan of Treatment Upcoming Encounters Date Type Specialty Care Team Description 04/27/2022 Tech Visit Vascular Surgery Anais Singh 04/27/2022 Office Visit Vascular Surgery Sulema Fajardo MD [facility] [address] VASCULAR SURGERY [place], [place] [address] (Wo rk) 05/18/2022 Office Visit Dermatology Alejandro Reese MD [address] [place] [address] DERMATOLOGY [place], [place] [address] (Wo rk) documented as of this encounter Visit Diagnoses Not on filedocumented in this encounter Care Teams Volunteer Assistant Relationship Specialty Start Date End Date Taye Ron MD PCP - General Family Medicine 11/04/16 [address] [place] [phone] documented as of this encounter
--- OUTSIDE RECORDS SUMMARY | 2022-04-26 09:58 | XMS_ITS | Encounter Summary ---
:1950 Author Organization [facility] [place] [address] Care Team Providers Name Role Phone Taye Ron MD Primary Care Provider Reason for Visit Reason Comments Medication Management Encounter Details Date Type Department Care Team Description 12/29/2020 Specialty Pharmacy Pharmacy at [facility] [place], Medication Management [facility] [place] [phone] Social History Tobacco Use Types Packs/Day Years Used Date Former Smoker Cigarettes Quit: 01/11/19 99 Smokeless Tobacco: Never Used Alcohol Use Standard Drinks/Week Comments Not Currently 0 (1 standard drink = 0.6 oz pure alcoho l) Sex Assigned at Date Recorded Not on file documented as of this encounter Progress Notes Jayla Joshua [facility] - 12/29/2020 12:10 PM EDT Clinical Management Plan: Refill Specialty Pharmacy Consultation; Jayla Joshua [facility] Comprehensive Medication Management (CMM) Carlos Gan [...] Derived Medication Reconciliation Discrepancies (compared to [facility] med list) No Specialty Pharmacy Refill Questionnaire Refill Questionnaire 12/29/2020 What is the name of the specialty medication you are refilling? Humira Are you taking any new medications? No Any new medical condition? No Any new allergies? No Any new side effects that are bothersome? No What date will you need this fill by? 01/06/2021 Adherence: Any missed doses? No Patient understands no changes to current drug regimen were made.. Jayla Joshua RPH 12/29/20 12:11 PM documented in this encounter Plan of Treatment Upcoming Encounters Date Type Specialty Care Team Description 04/27/2022 Tech Visit Vascular Surgery Anais Singh 04/27/2022 Office Visit Vascular Surgery Sulema Fajardo MD [facility] [address] VASCULAR SURGERY [place], [place] [address] (Wo rk) 05/18/2022 Office Visit Dermatology Alejandro Reese MD [address] [place] [address] DERMATOLOGY [place], [place] [address] (Wo rk) documented as of this encounter Visit Diagnoses Not on filedocumented in this encounter Care Teams Personal Lines Account Manager Relationship Specialty Start Date End Date Taye Ron MD PCP - General Family Medicine 11/04/[address] [place] [phone] documented as of this encounter
--- OUTSIDE RECORDS SUMMARY | 2022-04-26 09:58 | XMS_ITS | Encounter Summary ---
:1950 Author Organization [facility] Address [address] [place] [address] Care Team Providers Name Role Phone Taye Ron MD Primary Care Provider Reason for Visit Reason Comments Medication Management Patient Education Encounter Details Date Type Department Care Team Description 11/02/2019 Specialty Pharmacy Pharmacy at [facility] [place] [facility] ERIC Dickersonmen t; [place] [phone] Social History Tobacco Use Types Packs/Day Years Used Date Former Smoker Cigarettes Quit: 01/11/19 99 Smokeless Tobacco: Never Used Alcohol Use Standard Drinks/Week Comments Not Currently 0 (1 standard drink = 0.6 oz pure alcoho l) Sex Assigned at Date Recorded Not on file documented as of this encounter Progress Notes Jayla Joshua RPH - 11/02/2019 8:26 AM EDT Specialty Pharmacy Consultation; Jayla Joshua RPH Comprehensive Medication Management (CMM) Carlos Gan Diagnosis: Psoriasis Therapy Start Date: 03/2008 Contact in person or via telephone:Telephone Mr. Carlos Gan is a 69 y.o. (1950) male who was contacted in regard to specialty medication. Spoke with patient regarding Humira. A review of the medication therapy was performed. The medication was Refilled as scheduled, and all medication related questions and concerns were addressed. [facility] will follow up with the patient 5-7 days prior to next refill. Is the patient willing to proceed with the Clinical Assessment? No Summary and Recommendations: Carlos Gan is a pleasant 69 y.o. male who was contacted for a consultation on Humira. The patient was able to verbalize understanding of the directions, storage requirements, clinical rationale, and possible adverse events of the medication. Proper injection technique was reviewed including rotation of injection sites, storage, and safe disposal of injection device. Allergies, medications, and medical conditions were reviewed at length including review for possible contraindications and interactions. The patient was informed of the variety of services that the Specialty Pharmacy will provide to them as one of our patients. Carlos reports that the Humira has improved his psoriasis by 99% and he just experiences occasional itching. Before he started the Humira his psoriasis was significant and covered a majority of his body from head to toe. I extensively counseled him on the importance of letting his provider know if he starts to feel sick, needs to be started on antibiotics for any reason, or has a planned procedure incase his dose needs to be held. He has been adherent and uses a calendar to help him remember when to take his injection and has not experienced any side effects. I have no recommendations at this time. Clinic follow-up needed: no Allergies and Drug intolerance: Allergies Allergen Reactions ??? Methotrexate Other (See Comments) Increased bleeding, lethargic ??? Shellfish Containing Products Anaphylaxis and Other (See Comments) Numbness, tingling of the tongue. Never had any problem with contrast and never used steroids before cath ??? Cis Free Text Allergy Hymenoptera (Bee) Stings. ??? Shellfish Derived Special Dietary or Hydration Requirements: no There is no height or weight on file to calculate BMI. Medication Reconciliation Discrepancies (compared to [facility] med list) no Medication Adherence Patient reported X missed doses [...] Refills needed for supportive medications: not needed Medication List: Current Outpatient Medications Medication Sig Note Dispense Refill ??? magnesium oxide (Mag-Ox) 400 mg (241.3 mg magnesium) Tablet Take 400 mg by mouth daily. ??? metoprolol succinate 25 mg capsule,sprinkle,ER 24hr Take by mouth daily. ??? insulin aspart U-100 (NOVOLOG) Insulin Pen Inject 0-33 Units subcutaneously 3 times daily (with meals). As instructed correction factor of 10 and 1:5 insulin to carb ratio see instructions 12 ??? metFORMIN (GLUCOPHAGE) 1,000 mg Tablet Take 0.5 tablets by mouth 2 times daily (with meals). Increase to 1000 mg BID after 2 doses 60 tablet 12 ??? insulin glargine Solution Inject 30 Units subcutaneously 2 times daily. 10 mL 12 ??? atorvastatin (LIPITOR) 80 mg Tablet Take 0.5 tablets by mouth every evening. 90 tablet 3 ??? clopidogrel (PLAVIX) 75 mg Tablet Take 1 tablet by mouth daily. 90 tablet 3 ??? spironolactone (ALDACTONE) 50 mg Tablet Take 0.5 tablets by mouth daily. 11/02/2019: bid 90 tablet 0 ??? furosemide (LASIX) 20 mg Tablet Take 1 tablet by mouth daily. 30 tablet 0 ??? acetaminophen (TYLENOL) 500 mg Tablet Take 2 tablets by mouth every 6 hours as needed for Pain. ??? traZODone (DESYREL) 50 mg Tablet Take 50 mg by mouth. ??? gabapentin (NEURONTIN) 300 mg Capsule Take 300 mg by mouth Three times a day. ??? cholecalciferol, Vitamin D3, 2,000 unit Capsule Take 1 capsule by mouth Daily. ??? aspirin 81 mg Tablet, Delayed Release (E.C.) Take 81 mg by mouth Daily. ??? nitroGLYcerin (NITROSTAT) 0.4 mg Tablet, Sublingual Place 1 tablet under the tongue every 5 minutes as needed for Chest pain. 90 tablet 12 ??? blood sugar diagnostic strips ([employer] ULTRA TEST) Strip Use to test blood sugar 4 times daily,diag code E11.9 400 each 3 ??? [place]-3 Fatty Acids (FISH OIL) 500 mg Cap Take by mouth. ??? multivitamin (THERAGRAN) tablet No current facility-administered medications for this visit. Most Recent Vitals: Ht Readings from Last 1 Encounters: 03/05/19 167.6 cm (5' 6) Wt Readings from Last 3 Encounters: 03/05/19 125.2 kg (276 lb) 02/06/19 132 kg (291 lb 0.1 oz) 07/21/18 128.5 kg (283 lb 3.2 oz) Temp Readings from Last 3 Encounters: 02/06/19 37 ??C (98.6 ??F) (Oral) BP Readings from Last 3 Encounters: 03/05/19 127/68 02/06/19 115/59 07/21/18 126/72 Pulse Readings from Last 3 Encounters: 03/05/19 84 02/06/19 77 07/21/18 98 Pertinent Lab values: Lab Results Component Value Date NA 135 02/03/2019 K 4.5 02/06/2019 CL 100 02/03/2019 CO2 23 02/03/2019 BUN 25 (H) 02/03/2019 CREATININE 0.88 02/03/2019 GLUCOSE 152 02/03/2019 GLUCFASTING 167 (H) 01/31/2019 CALCIUM 7.9 (L) 02/03/2019 Lab Results Component Value Date ALT 32 01/26/2019 AST 24 01/26/2019 ALKPHOS 47 01/26/2019 BILITOT 0.5 01/26/2019 BILIDIR 0.1 01/26/2019 ALBUMIN 4.4 01/26/2019 PROT 7.3 01/26/2019 Lab Results Component Value Date WBC 18.2 (H) 02/03/2019 HGB 9.7 (L) 02/03/2019 HCT 29.3 (L) 02/03/2019 MCV 90.4 02/03/2019 PLATELET 170 02/03/2019 Lab Results Component Value Date HA1C 7.2 (H) 01/27/2019 There is no immunization history on file for this patient. Assessment and Recommendations: Title Type of Medication Management: chronic disease management, targeted medication review Referred By: provider Recipient: beneficiary Provider: plan sponsor pharmacist Visit Type: [facility] Follow-up Method of Contact: by telephone Cognitive Ability: good Cognitive Impairment Status Verified this Year: no Patient Counseling Counseled the patient on the following: doses and administration discussed, safe handling, storage, and disposal discussed, possible adverse effects and management discussed, possible drug and prescription drug interactions discussed, possible drug and OTC drug and food interactions discussed, therapeutic rationale discussed, adherence and missed doses discussed, effects of medication in patients over 65 years of age discussed, health goals discussed, monitoring medication discussed, preventative care discussed, timing of medications discussed, vaccination discussed Drug Medication Management Summary Topics discussed: doses and administration discussed, safe handling, storage, and disposal discussed, possible adverse effects and management discussed, possible drug and prescription drug interactions discussed, possible drug and OTC drug and food interactions discussed, therapeutic rationale discussed, adherence and missed doses discussed, effects of medication in patients over 65 years of age discussed, health goals discussed, monitoring medication discussed, preventative care discussed, timing of medications discussed, vaccination discussed Treatment Outcomes No data found in the last 10 encounters. Reviewed in detail with patient: Dose appropriateness based on recommended standard dosing Current medication list including OTC medications Medication and disease problems Allergies Comorbid conditions/ Problem List Past adverse events if any Special needs of the patient including physical and cognitive limitations Goals of therapy and management strategies Warnings, precautions, and contraindications Side effects Drug-drug and drug-food interactions Administration instructions including dose, frequency and method Handling, storage, and disposal Verifying expiration dates on products before use Rotating medication inventory to use oldest product first Relevant lab data Patient verbalizes understanding and is able to read-back instructions on self-administration/injection, proper storage, drug stability, importance of adherence and management strategies, side effect avoidance and mitigation strategies, and interruptions in therapy: Yes Physical and Cognitive Assessment: Functional limitations identified: no Cognitive limitations identified: no Concern regarding orientation/memory: no Concern with reasoning/judgement: no Is patient a fall risk: no Other needed information: no Social Assessment: Does the patient have a primary field care coordinator? no Does the patient have an emergency contact on file: Yes Does patient need referral to social security benefits interviewer: No Does patient need referral to advocacy group: No Home Health Assessment: Is the patient in a safe home environment? Yes Is the patient able to store their medication as directed? Yes Does the patient have a support network at home? Yes Reviewed potential home safety hazards with patient: Yes Economic Assessment: Patient is agreeable to medication copay: yes Copay Amount: 2.00 Day Supply: 28 d/s Date Needed: 11/06 Copay assistance required: no Therapy Assessment: Appropriate Therapy: Yes Current Medication Dosing/Route/Frequency: Humira 40mg/0.8ml inject 1 pen subq every 14 days Effective: yes Current Affected Areas: none Improving Affected Areas: head to toe Worsening Affected Areas: none Total BSA involved: n/a Recent Skin Exacerbations/Flaring: no Recent Topical Corticosteroid Use: no Relapsing/Remitting Factors: yes - salt water improves psoriasis Patient-Reported Side Effects: no Recent Infections: no Patient Goals: Goals None Is the patient on track to achieve goals of therapy? yes Care Plan and Interventions: Care Plan Reviewed and Approved by both Pharmacist and Patient: Yes Patient experienced change in condition that affects treatment: no Additional care/services needed: no Educational information or adherence tools provided: No Additional equipment/supplies required: no Counseling: Utilizing appropriate injection technique: yes Rotation of Injection Sites: Yes Room Temperature Medication at Time of Injection: No- I advised patient to let the medication warm up to room temperature but he says the medication doesn't sting when he injects it while it's cold. Pharmacist follow-up needed: Yes Patient Satisfaction with Care/Services Provided: Yes Informed patient of specialty pharmacy services: Yes -Patient received welcome packet: No Date Received: n/a Delivery Method: n/a -Patient returned signed Rights & Responsibilities: No Date Received: n/a Delivery Method: n/a -Patient is aware a licensed pharmacist is available 24 hours a day, 7 days a week to discuss medication-related questions or concerns: Yes -Patient verbalizes understanding of education on the common side effect profile of the medication: Yes -The patient is able to call 911 or seek urgent care if signs/symptoms of allergy or harmful adversereactions occur: Yes Patient Satisfaction with Therapy: yes Patient understands no changes to current drug regimen were made at the appointment and that [facility] is providing recommendations (summary located at top of note) for provider review and follow up. Jayla Joshua RPH 11/02/19 8:31 AM documented in this encounter Plan of Treatment Upcoming Encounters Date Type Specialty Care Team Description 04/27/2022 Tech Visit Vascular Surgery Anais Singh 04/27/2022 Office Visit Vascular Surgery Sulema Fajardo MD [facility] VASCULAR SURGERY [place], [place] [address] (Wo rk) 05/18/2022 Office Visit Dermatology Alejandro Reese MD [address] [place] [address] DERMATOLOGY [place], [place] [address] (Wo rk) documented as of this encounter Visit Diagnoses Not on filedocumented in this encounter Care Teams Phosphoric Acid Supervisor Relationship Specialty Start Date End Date Taye Ron MD PCP - General Family Medicine 11/04/16 [address] [place] [phone] documented as of this encounter
--- OUTSIDE RECORDS SUMMARY | 2022-04-26 09:58 | XMS_ITS | Encounter Summary ---
:1950 Author Organization [facility] [place] [address] Care Team Providers Name Role Phone Taye Ron MD Primary Care Provider Reason for Visit Reason Comments Specialty Refill Management Encounter Details Date Type Department Care Team Description 03/23/2021 Specialty Pharmacy Pharmacy at [facility] [place] [phone] Social History Tobacco Use Types Packs/Day Years Used Date Former Smoker Cigarettes Quit: 01/11/19 99 Smokeless Tobacco: Never Used Alcohol Use Standard Drinks/Week Comments Not Currently 0 (1 standard drink = 0.6 oz pure alcoho l) Sex Assigned at Date Recorded Not on file documented as of this encounter Progress Notes Yumiko Diego - 03/23/2021 10:03 AM EDT Clinical Management Plan: Refill Specialty [...] Shellfish Derived Medication Reconciliation Discrepancies (compared to [facility] med list) No Specialty Pharmacy Refill Questionnaire Refill Questionnaire 03/23/2021 What is the name of the specialty medication you are refilling? Humira Are you taking any new medications? No Any new medical condition? No Any new allergies? No Any new side effects that are bothersome? No What date will you need this fill by? 04/02/2021 Adherence: Any missed doses? No Patient understands no changes to current drug regimen were made.. Yumiko Diego 03/23/21 10:03 AM documented in this encounter Plan of Treatment Upcoming Encounters Date Type Specialty Care Team Description 04/27/2022 Tech Visit Vascular Surgery Anais Singh 04/27/2022 Office Visit Vascular Surgery Sulema Fajardo MD [facility] [address] VASCULAR SURGERY [place], [place] [address] (Wo rk) 05/18/2022 Office Visit Dermatology Alejandro Reese MD [address] [place] [address] DERMATOLOGY [place], [place] [address] (Wo rk) documented as of this encounter Visit Diagnoses Not on filedocumented in this encounter Care Teams News Videographer Relationship Specialty Start Date End Date Taye Ron MD PCP - General Family Medicine 11/04/16 [address] [place] [address] documented as of this encounter
--- OUTSIDE RECORDS SUMMARY | 2022-04-26 09:58 | XMS_ITS | Encounter Summary ---
:1950 Author Organization [facility] Address [address] [place] [address] Care Team Providers Name Role Phone Taye Ron MD Primary Care Provider Reason for Visit Reason Comments Medication Management Specialty Refill Management Encounter Details Date Type Department Care Team Description 02/24/2022 Specialty Pharmacy Pharmacy at [facility] Hazel Gupta, [facility] [place] [phone] Social History Tobacco Use Types Packs/Day Years Used Date Former Smoker Cigarettes Quit: 01/11/19 99 Smokeless Tobacco: Never Used Alcohol Use Standard Drinks/Week Comments Not Currently 0 (1 standard drink = 0.6 oz pure alcoho l) Sex Assigned at Date Recorded Not on file documented as of this encounter Progress Notes Hazel Gupta RPH - 02/24/2022 2:04 PM EDT Specialty Pharmacy Consultation; Hazel Gupta [facility] Comprehensive Medication Management (CMM) Carlos Gan Diagnosis: Psoriasis Therapy Start Date: 03/2008 Contact in person or via telephone:telephone Mr. Carlos Gan is a 71 y.o. (1950) male who was contacted in regard to specialty medication. Spoke with patient regarding Humira. A review of the medication therapy was performed. The medication was Refilled as scheduled, and all medication related questions and concerns were addressed. [facility] the patient 5-7 days prior to next refill. Is the patient willing to proceed with the Clinical Assessment? Yes Summary and Recommendations: Spoke to patient in regards to Humira. Medication, allergies, and health conditions were confirmed. Patient confirms proper injection storage, administration, and disposal. Patient denies any difficulties with administration. Patient denies any recent infections and confirms understanding of when to contact the clinic in order to discuss if a hold in therapy is needed. Currently, patient is taking Humira for the treatment of psoriasis. Patient denies experiencing any adverse reactions. He says he has a few small spot above his watch (left arm) and on his left knee. He says these areas don't go away. He applies body lotion but no steroid creams. He says they are not bothersome; they are noticeable and sometimes it gets dry and flakes. Overall, he is pleased with theclearing he has seen and would like to continue therapy as prescribed. At this time, patient does not have any questions or concerns. We will continue to follow up with patient accordingly. Clinic follow-up needed: yes - routine follow-ups Allergies and Drug intolerance: Allergies Allergen Reactions ??? Methotrexate Other (See Comments) Increased bleeding, lethargic ??? Shellfish Containing Products Anaphylaxis and Other (See Comments) Numbness, tingling of the tongue. Never had any problem with contrast and never used steroids before cath ??? Cis Free Text Allergy Hymenoptera (Bee) Stings. ??? Shellfish Derived Problem List: Patient Active Problem List Diagnosis Code ??? Psoriasis L40.9 ??? Type 2 diabetes mellitus with complication E11.8 ??? Atherosclerosis of coronary artery I25.10 ??? Exertional angina I20.8 ??? Ischemic cardiomyopathy I25.5 ??? Hypertension I10 ??? Dyslipidemia E78.5 ??? Mitral regurgitation I34.0 ??? HLD (hyperlipidemia) E78.5 ??? Acute systolic heart failure I50.21 ??? NSTEMI (non-ST elevated myocardial infarction) I21.4 Special Dietary or Hydration Requirements: no Medication Reconciliation Discrepancies (compared to [facility] med list) no Medication List: Current Outpatient Medications Medication Sig Note Dispense Refill ??? Levemir FlexTouch U-100 Insuln Insulin Pen INJECT 55 UNITS SUBCUTANEOUSLY TWICE A DAY ??? Victoza 3-Yousuf 0.6 mg/0.1 mL (18 mg/3 mL) Pen Injector INJECT 1.8MG SUBCUTANEOUSLY ONCE DAILY ??? lisinopriL (Zestril) 2.5 mg Tablet TAKE ONE TABLET BY MOUTH EVERY DAY ??? Tab-A-Aisha 400 mcg Tablet TAKE ONE TABLET BY MOUTH EVERY DAY ??? BD Ultra-Fine Mini Pen Needle 31 gauge x 3/16 Needle INJECT SIX TIMES PER DAY ??? atorvastatin (Lipitor) 40 mg Tablet TAKE 1 TABLET BY MOUTH EVERY NIGHT ??? Vitamin D 25 mcg (1,000 unit) Capsule TAKE ONE CAPSULE BY MOUTH EVERY DAY ??? Magnesium Oxide 500 mg Tablet TAKE ONE TABLET BY MOUTH TWICE A DAY ??? metoprolol succinate XL (Toprol-XL) 25 mg Tablet Sustained Release 24 hr TAKE ONE TABLET BY MOUTH EVERY DAY ??? Humira Pen 40 mg/0.8 mL Pen Injector Kit Inject 0.8 mLs subcutaneously every 14 days. 1 kit 6 ??? empagliflozin (Jardiance) 25 mg Tablet Take 25 mg by mouth daily. Pt stated he was started on Jardiance 25 mg tab recently Indications: type 2 diabetes mellitus ??? insulin aspart U-100 (NOVOLOG) Insulin Pen [...] 2 times daily. 10 mL 12 ??? clopidogrel (PLAVIX) 75 mg Tablet Take [...] by mouth Three times a day. ??? aspirin 81 mg Tablet, Delayed Release (E.C.) Take 81 mg by mouth Daily. ??? nitroGLYcerin (NITROSTAT) 0.4 mg Tablet, Sublingual Place 1 tablet under the tongue every 5 minutes as needed for Chest pain. 90 tablet 12 ??? blood sugar diagnostic strips ([employer] ULTRA TEST) Strip Use to test blood sugar 4 times daily,diag code E11.9 400 each 3 ??? [place]-3 Fatty Acids (FISH OIL) 500 mg Cap [...] Encounters: 03/05/19 84 02/06/19 77 07/21/18 98 There is no height or weight on file to calculate BMI. Pertinent Lab values: Lab Results Component Value [...] file for this patient. Assessment and Recommendations: Patient Counseling Patient informed of specialty services: Yes Patient accepted offer to residential substance abuse counselor: adherence/missed doses, cost of medications/cost implications, doses and administration, possible drug/OTC drug and food interactions, possible adverse side effects and management, pharmacy contact information, lab monitoring/follow up, possible drug/Rx drug interactions, safe handling, storage, and disposal, therapeutic rationale Medication Management Summary Topics discussed: reviewed medication changes since last visit, medication safety precautions education provided, safe handling, storage, and disposal discussed, possible adverse effects and management discussed, lab monitoring and follow-up discussed, cost of medications and cost implications discussed, adherence and missed doses discussed, health goals discussed, monitoring medication discussed, preventative care discussed, reminder to refill or continuous pickling line pickler medication discussed, self-monitoring discussed, timing of medications discussed, vaccination discussed, lifestyle modification education, referral needs discussed Time spent: 1-15 min Treatment Outcomes 02/24/2022 1411 Disease progression: Stable Patient Overall Status: Stable Reviewed in detail with patient: Dose appropriateness [...] use oldest product first Relevant lab data Treatments impact on disease Dose appropriateness based on recommended standard dosing schedule, including any variations from FDA approved dosing Patient verbalizes understanding and is able to read-back instructions on self-administration/injection, proper storage, drug stability, importance of adherence and management strategies, side effect avoidance and mitigation strategies, and interruptions in therapy: Yes Patient is aware a licensed pharmacist is available 24 hours a day, 7 days a week to discuss medication-related questions or concerns: Yes Patient verbalizes understanding of the common side effect profile of their medication. The patient is able to call 911 or seek urgent care if signs/symptoms of allergy or harmful adverse reactions occur: Yes Additional care/services needed: No Additional equipment/supplies required: No Patient satisfied with care/services provided: Yes Specialty Assessment: Physical and Cognitive Assessment: Functional limitations identified: No Cognitive limitations identified: No Concern regarding orientation/memory: No Concern with reasoning/judgement: No Is patient a fall risk: No Social Assessment: Does patient have a primary child care associate: No Does patient have an emergency contact on file: Yes Does patient need referral to social work faculty member: No Does patient need referral to advocacy group: No Home Health Assessment: Is the patient in a safe home environment?: Yes Is the patient able to store their medication as directed?: Yes Does the patient have a support network at home?: Yes Reviewed potential home safety hazards with patient: Yes Economic Assessment: Patient is agreeable to medication copay: Yes Actual Copay: $: 2 Days Supply: 28 Welcome Packet and Rights and Responsibilities: Patient provided welcome packet/rights and responsibilities: Yes Date Confirmed: 01/14/21 Confirmation: Verbal Specialty Med Adherence Patient Demonstrates Understanding of Importance of Adherence: Yes Educational Information or Adherence Tools Provided: Yes Patient Reported X Missed Doses in the Last Month: 0 Provider-Estimated Medication Adherence Level: 90-100% Adherence Tools Used: directed education Therapy Assessment: Current Medication Dosing/Route/Frequency: Humira 40mg/0.8mL pen Inject 40mg under the skin every 14days Appropriate Therapy: Yes Effective: yes Current Affected Areas: left arm, left knee Improving Affected Areas: all Worsening Affected Areas: none Total BSA involved: unknown Recent Skin Exacerbations/Flaring: no Recent Topical Corticosteroid Use: no Relapsing/Remitting Factors: no Patient-Reported Side Effects: no Recent Infections: no Counseling: Utilizing appropriate injection technique: yes - confirms proper injection technique Rotation of Injection Sites: Yes Room Temperature Medication at Time of Injection: Yes Patient Goals: Patient's specific desired goal: patient would like to continue therapy as he is seeing good results Measured by: symptoms as reported by patient Time-frame to meet goal: 6 months Is the patient on track to achieve goals of therapy? Yes If no, what are the barriers and action plan to reach the goal: N/A Care Plan and Interventions: Care Plan Reviewed and Approved by both Pharmacist and Patient: Yes Did Care Plan Change? No If yes: Change to plans of care based on: Patient's request: no Condition: no Response to therapy: no Provider request: no Follow-up needed: No Interventions (if applicable): no Patient experienced change in condition that affects treatment: no Patient Satisfied with Therapy: yes - patient notes good results Pharmacist follow-up needed: Yes Patient understands no changes to current drug regimen were made at the appointment and that [facility] is providing recommendations (summary located at top of note) for provider review and follow up. Hazel Gupta RPH 02/24/22 2:12 PM documented in this encounter Plan of Treatment Upcoming Encounters Date Type Specialty Care Team Description 04/27/2022 Tech Visit Vascular Surgery Anais Singh 04/27/2022 Office Visit Vascular Surgery Sulema Fajardo MD [facility] DR VASCULAR SURGERY [place], [place] [address] (Wo rk) 05/18/2022 Office Visit Dermatology Alejandro Reese MD [address] [place] [address] DERMATOLOGY [place], [place] [address] (Wo rk) documented as of this encounter Visit Diagnoses Not on filedocumented in this encounter Care Teams Associate Software Application Engineer Relationship Specialty Start Date End Date Taye Ron MD PCP - General Family Medicine 11/04/[address] [place] [address] documented as of this encounter
--- OUTSIDE RECORDS SUMMARY | 2022-04-26 09:58 | XMS_ITS | Encounter Summary ---
:1950 Author Organization [facility] [place] [address] Care Team Providers Name Role Phone Taye Ron MD Primary Care Provider Reason for Visit Reason Comments Medication Refill Encounter Details Date Type Department Care Team Description 08/07/2020 Specialty Pharmacy Pharmacy at [facility] Rosaura [place]ore[place] [phone] Social History Tobacco Use Types Packs/Day Years Used Date Former Smoker Cigarettes Quit: 01/11/19 99 Smokeless Tobacco: Never Used Alcohol Use Standard Drinks/Week Comments Not Currently 0 (1 standard drink = 0.6 oz pure alcoho l) Sex Assigned at Date Recorded Not on file documented as of this encounter Progress Notes Rosaura Sorensen RPH - 08/07/2020 2:57 PM EST Clinical Management Plan: Refill Specialty Pharmacy Consultation; Rosaura Sorensen [facility] Comprehensive Medication Management (CMM) Carlos Gan is [...] beneficiary Provider: plan sponsor pharmacist Visit Type: [facility] Follow-up Method of Contact: by telephone Cognitive [...] Shellfish Derived Medication Reconciliation Discrepancies (compared to [facility] med list) -none New medications: no [...] were made at the appointment and that [facility] is providing recommendations (summary located at top of note) for provider review and follow up. Rosaura Sorensen RPH 08/07/20 2:58 PM documented in this encounter Plan of Treatment Upcoming Encounters Date Type Specialty Care Team Description 04/27/2022 Tech Visit Vascular Surgery Anais Singh 04/27/2022 Office Visit Vascular Surgery Sulema Fajardo MD [facility] [address] VASCULAR SURGERY [place], [place] [address] (Wo rk) 05/18/2022 Office Visit Dermatology Alejandro Reese MD [address] [facility] DERMATOLOGY [place], [place] [address] (Wo rk) documented as of this encounter Visit Diagnoses Not on filedocumented in this encounter Care Teams Bookstore Manager Relationship Specialty Start Date End Date Taye Ron MD PCP - General Family Medicine 11/04/16 [address] [place] [phone] documented as of this encounter
--- OUTSIDE RECORDS SUMMARY | 2022-04-26 09:58 | XMS_ITS | Encounter Summary ---
:1950 Author Organization [facility] [place] [address] Care Team Providers Name Role Phone Taye Ron MD Primary Care Provider Reason for Visit Reason Comments Specialty Refill Management Medication Management Encounter Details Date Type Department Care Team Description 01/27/2021 Specialty Pharmacy Pharmacy at [facility] Hazel Gupta, Specialty Refill [facility] [place] [phone] Social History Tobacco Use Types Packs/Day Years Used Date Former Smoker Cigarettes Quit: 01/11/19 99 Smokeless Tobacco: Never Used Alcohol Use Standard Drinks/Week Comments Not Currently 0 (1 standard drink = 0.6 oz pure alcoho l) Sex Assigned at Date Recorded Not on file documented as of this encounter Progress Notes Hazel Gupta RPH - 01/27/2021 10:38 AM EDT Specialty Pharmacy Consultation; Hazel Gupta [facility] Comprehensive Medication Management (CMM): Specialty Consult, Opt Out Carlos Gan Diagnosis: Psoriasis Therapy Start Date: 03/2008 Contact in person or via telephone:telephone Mr. Carlos Gan is a 70 y.o. (1950) male who was contacted in regard to specialty medication. Spoke with patient regarding Humira. A review of the medication therapy was performed. The medication was filled as scheduled, and all medication related questions and concerns were addressed. The specialty pharmacy staff will follow up with the patient 7 days prior to next refill. Is the patient willing to proceed with the Clinical Assessment? No Summary and Recommendations: Spoke to patient in regards to Humira. Medications, allergies, and medical conditions were confirmed. Patient would like to opt out of our consultation at this time. Patient has our contact informationshould he have questions or concerns. Economic Assessment: Patient is agreeable to medication copay: Yes Copay Amount: $2.00 Day Supply: 28 Date Needed: 02/05/21 Therapy Assessment: Appropriate Therapy: Yes Current Medication Dosing/Route/Frequency: Humira 40mg/0.8mL Inject 40mg under the skin every 14 days Additional equipment/supplies required: no [...] welcome packet: Yes Date to be provided: 01/14/21 Delivery Method: mail -Patient returned signed Rights & Responsibilities: Yes Date to be provided: 01/14/21 Delivery Method: mail -Patient is aware a [...] review and follow up. Hazel Gupta RPH 01/27/21 10:43 AM documented in this encounter Plan of Treatment Upcoming Encounters Date Type Specialty Care Team Description 04/27/2022 [facility] Visit Vascular Surgery Anais Singh 04/27/2022 Office Visit Vascular Surgery Sulema Fajardo MD [facility] DR VASCULAR SURGERY [place], [place] [address] (Wo rk) 05/18/2022 Office Visit Dermatology Alejandro Reese MD [address] [place] [address] DERMATOLOGY [place], [place] [address] (Wo rk) documented as of this encounter Visit Diagnoses Not on filedocumented in this encounter Care Teams Phlebotomist Supervisor/Instructor Relationship Specialty Start Date End Date Taye Ron MD PCP - General Family Medicine 11/04/16 [address] [place] [address] documented as of this encounter
--- OUTSIDE RECORDS SUMMARY | 2022-04-26 09:58 | XMS_ITS | Encounter Summary ---
:1950 Author Organization [place] [address] Care Team Providers Name Role Phone Taye Ron MD Primary Care Provider Reason for Visit Reason Comments Medication Management Encounter Details Date Type Department Care Team Description 12/01/2020 Specialty Pharmacy Pharmacy at [facility] [place], Medication Management [facility] [place] [phone] Social History Tobacco Use Types Packs/Day Years Used Date Former Smoker Cigarettes Quit: 01/11/19 99 Smokeless Tobacco: Never Used Alcohol Use Standard Drinks/Week Comments Not Currently 0 (1 standard drink = 0.6 oz pure alcoho l) Sex Assigned at Date Recorded Not on file documented as of this encounter Progress Notes Jayla Joshua Bharti - 12/01/2020 12:22 PM EDT Clinical Management Plan: Refill Specialty Pharmacy Consultation; Jayla Joshua [facility] Comprehensive Medication Management [...] Shellfish Derived Medication Reconciliation Discrepancies (compared to [facility] med list) No Specialty Pharmacy Refill Questionnaire Refill Questionnaire 12/01/2020 What is the name of the specialty medication you are refilling? Humira Are you taking any new medications? No Any new medical condition? No Any new allergies? No Any new side effects that are bothersome? No What date will you need this fill by? 12/11/2020 Adherence: Any missed doses? No Patient understands no changes to current drug regimen were made.. Jayla Joshua RPH 12/01/20 12:23 PM documented in this encounter Plan of Treatment Upcoming Encounters Date Type Specialty Care Team Description 04/27/2022 Tech Visit Vascular Surgery Anais Singh 04/27/2022 Office Visit Vascular Surgery Sulema Fajardo MD [facility] DR VASCULAR SURGERY [place], [place] [address] (Wo rk) 05/18/2022 Office Visit Dermatology Alejandro Reese MD [address] [place] [address] DERMATOLOGY [place], [place] [address] (Wo rk) documented as of this encounter Visit Diagnoses Not on filedocumented in this encounter Care Teams Product Consultant Relationship Specialty Start Date End Date Taye Ron MD PCP - General Family Medicine 11/04/[address] [place] [phone] documented as of this encounter
--- OUTSIDE RECORDS SUMMARY | 2022-04-26 09:58 | XMS_ITS | Encounter Summary ---
:1950 Author Organization [facility] [place] [address] Care Team Providers Name Role Phone Taye Ron MD Primary Care Provider Reason for Visit Reason Onset Date Comments Medication Refill 03/24/2020 Encounter Details Date Type Department Care Team Description 03/24/2020 Refill Dermatology at [facility] Alejandro Reese MD [address] [facility] [address] [place] [address] DERMATOLOGY [phone] [place], [place] [address] (Wo rk) Social History [...] Sulema Fajardo MD [facility] VASCULAR SURGERY [place], [place] [address] (Wo rk) 05/18/2022 Office Visit Dermatology Alejandro Reese MD [address] [facility] DERMATOLOGY [place], [place] [address] (Wo rk) documented as of this encounter Visit Diagnoses Not on filedocumented in this encounter Care Teams Wax Pumper Relationship Specialty Start Date End Date Taye Ron MD PCP - General Family Medicine 11/04/16 [address] [place] [address] documented as of this encounter
--- OUTSIDE RECORDS SUMMARY | 2022-04-26 09:58 | XMS_ITS | Encounter Summary ---
:1950 [place] [address] Care Team Providers Name Role Phone Taye Ron MD Primary Care Provider Reason for Visit Reason Comments Medication Management Specialty Refill Management Encounter Details Date Type Department Care Team Description 10/30/2021 Specialty Pharmacy Pharmacy at [facility] Durga Mallory, [facility] Specialty [place] Management [phone] Social History Tobacco Use Types Packs/Day Years Used Date Former Smoker Cigarettes Quit: 01/11/19 99 Smokeless Tobacco: Never Used Alcohol Use Standard Drinks/Week Comments Not Currently 0 (1 standard drink = 0.6 oz pure alcoho l) Sex Assigned at Date Recorded Not on file documented as of this encounter Progress Notes Durga Mallory [facility] - 10/30/2021 11:58 AM EDT Clinical Management Plan: Refill Specialty Pharmacy Consultation; Durga Mallory [facility] Comprehensive Medication Management (CMM) Carlos Castilloieu Mr. [...] Shellfish Derived Medication Reconciliation Discrepancies (compared to [facility] med list) No Specialty Pharmacy Refill Questionnaire Refill Questionnaire 10/30/2021 What is the name of the specialty medication you are refilling? humira Are you taking any new medications? No Any new medical condition? No Any new allergies? No Any new side effects that are bothersome? No What date will you need this fill by? 11/12/2021 Adherence: Any missed doses? No Patient understands no changes to current drug regimen were made. Durga Mallory RPH 10/30/21 12:00 PM documented in this encounter Plan of Treatment Upcoming Encounters Date Type Specialty Care Team Description 04/27/2022 Tech Visit Vascular Surgery Anais Singh 04/27/2022 Office Visit Vascular Surgery Sulema Fajardo MD [facility] [address] VASCULAR SURGERY [place], [place] [address] (Wo rk) 05/18/2022 Office Visit Dermatology Alejandro Reese MD [address] [place] [address] DERMATOLOGY [place], [place] [address] (Wo rk) documented as of this encounter Visit Diagnoses Not on filedocumented in this encounter Care Teams Electric Meter Tester Shop Relationship Specialty Start Date End Date Taye Ron MD PCP - General Family Medicine 11/04/16 [address] [place] [phone] documented as of this encounter
--- OUTSIDE RECORDS SUMMARY | 2022-04-26 09:58 | XMS_ITS | Encounter Summary ---
:1950 Author Organization [facility] Address [address] [place] [address] Care Team Providers Name Role Phone Taye Ron MD Primary Care Provider Reason for Referral Diagnostic Test (Routine) - Authorized Specialty Diagnoses / Procedures Referred By Contact Refer red To Contact Diagnoses Heel ulceration, right, with unspecified severity Carolina Rodriguez APRN [facility] 3v Procedures AUSTEN, legs, multiple levels [facility] [place] [address] [place] [address] Referral ID Status Reason Start Expiration Visits Visits Date Date Requested Authorized [id number] Authorized Specialty 04/08/2022 04/08/2023 1 1 Service Requested Encounter Details Date Type Department Care Team Description 04/08/2022 Orders Only Vascular Surgery at Carolina Rodriguez He el ulceration, [facility] right, with [facility] [place] [address] VASCULAR SURGERY [phone] [place], [place] [address] Social History Tobacco Use Types Packs/Day Years [...] Office Visit Vascular Surgery Sulema Fajardo MD [facility] DR VASCULAR SURGERY [place], [place] [address] (Wo rk) 05/18/2022 Office Visit Dermatology Alejandro Reese MD [address] [place] [address] DERMATOLOGY [place], [place] [address] (Wo rk) documented as of this encounter Visit Diagnoses Diagnosis Heel ulceration, right, with unspecified severity documented in this encounter Care Teams Volunteer Specialist Relationship Specialty Start Date End Date Taye Ron MD PCP - General Family Medicine 11/04/[address] [place] [address] documented as of this encounter
--- OUTSIDE RECORDS SUMMARY | 2022-04-26 09:58 | XMS_ITS | Encounter Summary ---
:1950 Author Organization [facility] [place] [address] Care Team Providers Name Role Phone Taye Ron MD Primary Care Provider Encounter Details Date Type Department Care Team Description 12/04/2019 Telephone Pharmacy at [facility] [place] [phone] Social History Tobacco Use Types Packs/Day Years Used Date Former Smoker Cigarettes Quit: 01/11/19 99 Smokeless Tobacco: Never Used Alcohol Use Standard Drinks/Week Comments Not Currently 0 (1 standard drink = 0.6 oz pure alcoho l) Sex Assigned at Date Recorded Not on file documented as of this encounter Miscellaneous Notes Telephone Encounter - Cassandra Temple Alexander - 12/04/2019 12:50 PM EDT Clinical Management Plan: Refill Specialty Pharmacy Consultation; Cassandra Temple Comprehensive Medication Management (CMM) Carlos Gan is a 69 y.o. (1950) male who was contacted in regard to a specialty medication refill reminder. Spoke with patient regarding Humira 40mg/0.8mL pen. A review of the medication therapy was performed. The medication was refilled as scheduled, and all medication related questionsand concerns were addressed. The specialty pharmacy staff [...] Derived Medication Reconciliation Discrepancies (compared to [facility] med list) No New medications: No New medical conditions: No New allergies: No Adherence: Any missed doses? No Are you experiencing any side effects from your medications? No Patient understands no changes to current drug regimen were made.. Cassandra Temple 12/04/19 12:50 PM documented in this encounter Plan of Treatment Upcoming Encounters Date Type Specialty Care Team Description 04/27/2022 Tech Visit Vascular Surgery Anais Singh 04/27/2022 Office Visit Vascular Surgery Sulema Fajardo MD [facility] DR VASCULAR SURGERY [place], [place] [address] (Wo rk) 05/18/2022 Office Visit Dermatology Alejandro Reese MD [address] [place] [address] RD DERMATOLOGY [place], [place] [address] (Wo rk) documented as of this encounter Visit Diagnoses Not on filedocumented in this encounter Care Teams Biotech Production Specialist Relationship Specialty Start Date End Date Taye Ron MD PCP - General Family Medicine 11/04/[address] [place] [address] documented as of this encounter
--- OUTSIDE RECORDS SUMMARY | 2022-04-26 09:59 | XMS_ITS | Encounter Summary ---
:1950 Author Organization [facility] Address [address] [place] [address] Care Team Providers Name Role Phone Taye Ron MD Primary Care Provider Encounter Details Date Type Department Care Team Description 03/19/2019 Office Visit Dermatology at [facility] Alejandro Reese MD Psoriasis [address] Zev B [address] [place] [address] DERMATOLOGY [phone] [place], [place] [address] (Wo rk) Social History Tobacco Use Types Packs/Day Years Used Date Former Smoker Cigarettes Quit: 01/11/19 99 Smokeless Tobacco: Never Used Alcohol Use Standard Drinks/Week Comments Not Currently 0 (1 standard drink = 0.6 oz pure alcoho l) Sex Assigned at Date Recorded Not on file documented as of this encounter Progress Notes Alejandro Reese MD - 03/19/2019 11:30 AM EDT Problem: 1. 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 On Humira March 2008 through December 2011, then 2012 through 2015, then October 2016 until January 2019 3. Status post trial Raptiva October 2006 through February 2008 4. Status post port with good results but unable to deal with time constraints 5. Previously received phototherapy at [facility] 6. Unable to tolerate methotrexate or cyclosporine, lack of any significant response to Enbrel Dylan follows up today with his significant other Shraddha. He is enjoying care home. Unfortunately he required for the urgent bypass surgery in January. He had stopped his Humira 2 weeks prior to that and so now is been off of it for 2 months. His psoriasis is starting to return with a vengeance. Physical examination reveals a pleasant 69-year-old gentleman who has psoriasis developing within old plaques on the arms the legs the stomach the back. It is widespread and aggressive it calvillo and stings and itches. Assessment and plan: Psoriasis 1. Resume Humira 40 mg autoinjector pen, inject contents of one pen subcutaneously every other week 2. Patient receives his Humira through the [employer] assistance program. He will reapply now for that program 3. Patient was tolerating Humira previously well without injection site reactions fevers or chills. Continue, and return to clinic in 1 year for repeat check CC: Taye Ron MD documented in this encounter Plan of Treatment Upcoming Encounters Date Type Specialty Care Team Description 04/27/2022 Tech Visit Vascular Surgery Anais Singh 04/27/2022 Office Visit Vascular Surgery Sulema Fajardo MD [facility] DR VASCULAR SURGERY [place], [place] [address] (Wo rk) 05/18/2022 Office Visit Dermatology Alejandro Reese MD [address] [place] [address] DERMATOLOGY [place], [place] [address] (Wo rk) documented as of this encounter Visit Diagnoses Diagnosis Psoriasis Other psoriasis documented in this encounter Care Teams Sales Center Associate Relationship Specialty Start Date End Date Taye Ron MD PCP - General Family Medicine 11/04/[address] [place] [address] documented as of this encounter
--- OUTSIDE RECORDS SUMMARY | 2022-04-26 09:59 | XMS_ITS | Encounter Summary ---
:1950 Author Organization [facility] Address [facility] [place] [address] Care Team Providers Name Role Phone Taye Ron MD Primary Care Provider Encounter Details Date Type Department Care Team Description 2019 Office Visit Cardiac Surgery at Trip Lin S/P CABG (coronary artery bypass graft); [facility] [place] Errol Cardiomyopathy, unspecified type [facility] [address] [place] CARDIOTHORACIC [address] SURGERY [phone] [place], [place] [address] Social History Tobacco Use Types Packs/Day Years Used Date Former Smoker Cigarettes Quit: 01/11/19 99 Smokeless Tobacco: Never Used Alcohol Use Standard Drinks/Week Comments Not Currently 0 (1 standard drink = 0.6 oz pure alcoho l) Sex Assigned at Date Recorded Not on file documented as of this encounter Last Filed Vital Signs Vital Sign Reading Time Taken Comments Blood Pressure 127/68 2019 1:09 PM EDT Pulse 84 2019 1:09 PM EDT Temperature - - Respiratory Rate - - Oxygen Saturation 95% 2019 1:09 PM EDT Inhaled Oxygen Concentration - - Weight 125.2 kg (276 lb) 2019 1:09 PM EDT Height 167.6 cm (5' 6) 2019 1:09 PM EDT Body Mass Index 44.55 2019 1:09 PM EDT documented in this encounter Progress Notes Trip Lin MD - 2019 1:30 PM EDT I am seeing Mr. Gan in followup after CABG HE has done surprisingly well. HE feels tired and gets short of breath with exertion, but feels better than before surgery. Minimal chest pain. Scheduled to start cardiac rehab soon and see Dr. Lambert. CXR shows clear lung metz without effusion EKG shows NSR, no acute changes Outpatient Medications Marked as Taking for the 03/05/19 encounter (Office Visit) with Trip Lin MD Medication Sig Dispense Refill ??? insulin aspart U-100 (NOVOLOG) Insulin Pen [...] by mouth daily. 90 tablet 3 ??? metoprolol tartrate (LOPRESSOR) 25 mg Tablet Take 0.5 tablets by mouth 2 times daily. ??? spironolactone (ALDACTONE) 50 mg Tablet Take 0.5 tablets by mouth daily. 90 tablet 0 ??? furosemide (LASIX) 20 [...] tablet 12 ??? blood sugar diagnostic strips (ONETOUCH ULTRA TEST) Strip Use to test blood sugar 4 times daily,diag code E11.9 400 each 3 ??? Concord-3 Fatty Acids (FISH OIL) 500 mg Cap Take by mouth. ??? multivitamin (THERAGRAN) tablet Physical Exam: BP 127/68 Pulse 84 Ht 167.6 cm (5' 6) Wt 125.2 kg (276 lb) SpO2 95% BMI 44.55 kg/m?? Lung: CTA CV: RRR no murmur Sternal incision is well healed sternum stable Leg incision is healing well with minimal swelling A/P: Doing surprisingly well after cabg. HE may resume driving and increase activity ad ninfa. HE willdo cardiac rehab and follow with Dr. Lambert. His target vessels were quite poor and he would likely benefit from residential DAPT therapy. documented in this encounter Plan of Treatment Upcoming Encounters Date Type Specialty Care Team Description 04/27/2022 Tech Visit Vascular Surgery Anais Singh 04/27/2022 Office Visit Vascular Surgery Sulema Fajardo MD [facility] [address] VASCULAR SURGERY [place], [place] [address] (Wo rk) 05/18/2022 Office Visit Dermatology Alejandro Reese MD [address] [facility] DERMATOLOGY [place], [place] [address] (Wo rk) documented as of this encounter Procedures Procedure Name Priority Date/Time Associated Diagnosis Comme nts EKG 12-LEAD Routine 2019 1:11 PM S/P CABG (coronary Res ults for this EDT artery bypass graft) procedu re are in the results section . documented in this encounter Results EKG 12 Lead (2019 1:11 PM EDT) Component Value Ref Range Test Analysis Performed Pathologis t Method Time At Signature Ventricular rate 84 BPM MUSE SYSTEM Atrial Rate 84 BPM MUSE SYSTEM P-R Interval 224 ms MUSE SYSTEM QRS Duration 110 ms MUSE SYSTEM Q-T Interval 386 ms MUSE SYSTEM QTC Calculated 456 ms MUSE SYSTEM (Bezet) Calculated P Rhodell 41 degrees MUSE SYSTEM Calculated R Rhodell -65 degrees MUSE SYSTEM Calculated T Rhodell 146 degrees MUSE SYSTEM INTERPRETATION Sinus rhythm with 1st degree A-V block MUSE SYSTEM Left axis deviation Anterolateral infarct (cited on or before 21-JUL-2018) Abnormal ECG When compared with ECG of 03-FEB-2019 01:33, Sinus rhythm has replaced Atrial fibrillation Vent. rate has decreased BY ??[address] no longer elevated in Inferior leads Confirmed by MD TRINIDAD, JACOBY ([id number]) on 2019 1:57:54 PM Specimen Anatomical Collection Method Collection Time Receive d Time (Source) Location / / Volume Laterality 2019 1:11 PM 9 1:57 EDT PM EDT Trip Lin MD ECG ORDERABLES Performing Organization Address City/State/ZIP Code Phon e Number MUSE SYSTEM documented in this encounter Visit Diagnoses Diagnosis S/P CABG (coronary artery bypass graft) Postsurgical aortocoronary bypass status Cardiomyopathy, unspecified type documented in this encounter Care Teams Restorer Lace [employer] Textiles Relationship Specialty Start Date End Date Taye Ron MD PCP - General Family Medicine 11/04/[address] [place] [address] documented as of this encounter
--- OUTSIDE RECORDS SUMMARY | 2022-04-26 09:59 | XMS_ITS | Encounter Summary ---
:1950 Author Organization [facility] [place] [address] Care Team Providers Name Role Phone Taye Ron MD Primary Care Provider Reason for Visit Reason Onset Date Comments Prior Authorization 04/11/2019 Humira Encounter Details Date Type Department Care Team Description 04/11/2019 Telephone Pharmacy at [facility] Leroy Crain Prior Authorization [facility] [place] [phone] Social History Tobacco Use Types Packs/Day Years Used Date Former Smoker Cigarettes Quit: 01/11/19 99 Smokeless Tobacco: Never Used Alcohol Use Standard Drinks/Week Comments Not Currently 0 (1 standard drink = 0.6 oz pure alcoho l) Sex Assigned at Date Recorded Not on file documented as of this encounter Miscellaneous Notes Telephone Encounter - Leroy Crain - 04/12/2019 8:55 AM EDT - Specialty Pharmacy, Prior Authorization Approval Medication Name: Humira Pen 40mg/0.8mL PNKT FILLABLE AT [facility]? yes APPROVAL DATES: 04/11/2019 - 04/10/2021 SPECIFIC INS REQUIREMENT: Can fill with Pharmacy, [facility]/REFERENCE # [id number] APPROVAL NOTIFICATION RECEIVED VIA: [facility] COPAY: $ 2.00 COPAY ASSISTANCE NEEDED?: No NOTES: Telephone Encounter - Leroy Crain - 04/11/2019 11:17 AM EDT [facility], Medication Prior Authorization Patient: Carlos Gan Patient : 1950 Patient Address: [address] [place] [phone] (home) Medication: Humira 40mg/0.8mL PNKT Subscriber Insurance: [employer] Medicare Fax: Physician: Alejandro Reese Sent Via: [facility] Rivas: [id number] Ref/Case/PA#: [id number] Medication Strength Frequency Requested: Humira 40mg/0.8mL PNKT, Inject the contents of one syringe ( 40mg ) subcutaneously every 2 weeks. Qty/Day Supply: 10/05 New Start: No Diagnosis & ICD-10 Code: Psoriasis L40.9 documented in this encounter Plan of Treatment Upcoming Encounters Date Type Specialty Care Team Description 04/27/2022 Tech Visit Vascular Surgery Anais Singh 04/27/2022 Office Visit Vascular Surgery Sulema Fajardo MD [facility] [address] VASCULAR SURGERY [place], [place] [address] (Go velez) 05/18/2022 Office Visit Dermatology Alejandro Reese MD [address] [facility] DERMATOLOGY [place], [place] [address] (Go velez) documented as of this encounter Visit Diagnoses Not on filedocumented in this encounter Care Teams Panel Instrument Repairer Relationship Specialty Start Date End Date Taye Ron MD PCP - General Family Medicine 11/04/16 [address] [place] [address] documented as of this encounter
--- OUTSIDE RECORDS SUMMARY | 2022-04-26 09:59 | XMS_ITS | Encounter Summary ---
:1950 Author Organization [facility] [place] [address] Care Team Providers Name Role Phone Taye Ron MD Primary Care Provider Reason for Visit Reason Comments Medication Management Encounter Details Date Type Department Care Team Description 04/27/2019 Specialty Pharmacy Pharmacy at [facility] Hazel Gupta, [place] [phone] Social History Tobacco Use Types Packs/Day Years Used Date Former Smoker Cigarettes Quit: 01/11/19 99 Smokeless Tobacco: Never Used Alcohol Use Standard Drinks/Week Comments Not Currently 0 (1 standard drink = 0.6 oz pure alcoho l) Sex Assigned at Date Recorded Not on file documented as of this encounter Progress Notes Hazel Gupta RPH - 04/27/2019 3:18 PM EDT Specialty Pharmacy Consultation; Hazel Gupta Bharti Comprehensive Medication Management (CMM): [facility] Consult, Opt Out Carlos Gan Diagnosis: Psoriasis Therapy Start Date: March 2008 Contact in person or via telephone:telephone Is the patient willing to proceed with the Clinical Assessment? No Summary and Recommendations: Patient has been on therapy before and opts out of out new start consult. He would still like to getrefill reminder calls and follow-ups with the pharmacy. He last got the prescription from [facility] andhas been consistent on his doses for the last 2 months. He did take a 2 week break due to hospitalization from bypass surgery. He will be seen by cardiology and is aware of the risk of worsen heart failure (per the conversation he had with [facility] I told him to look for signs of shortness of breath, swelling in the legs, etc. and he confirms understanding. Patient usually injects on and will call us to set up his next fill. He currently has 1 pen left at home in which he will inject next (05/03). He does not have any further questions or concerns. Economic Assessment: Patient is agreeable to medication copay: Yes Copay Amount: $2.00 Day Supply: 28 Date Needed: 05/17/19 Copay assistance required: no ?? Therapy Assessment: ?? Appropriate Therapy: Yes Current Medication Dosing/Route/Frequency: Humira 40mg/0.8mL pens inject 1 pen (40mg) under the skinevery 14 days ?? Additional equipment/supplies required: no Care Plan Reviewed and Approved by Pharmacist : ? Yes ?? [facility] Reviewed Medications: No Medications reconciled: No [facility] Reviewed Allergies :Yes Allergies reconciled: Yes Informed patient of specialty pharmacy services: Yes -Patient will be provided with welcome packet: Yes Date to be provided: ~05/08/19 (he will call to set up delivery closer to the date and we will mail it with his first fill) Delivery Method: mail -Patient returned signed Rights & Responsibilities: Yes Date to be provided: ~05/08/19 (he will call to set up delivery closer to the date and we will mail it with his first fill) Delivery Method: mail -Patient is aware a [...] made at the appointment and that [facility] is providing recommendations (summary located at top of note) for provider review and follow up. Hazel Gupta RPH 04/27/19 3:19 PM documented in this encounter Plan of Treatment Upcoming Encounters Date Type Specialty Care Team Description 04/27/2022 Tech Visit Vascular Surgery Anais Singh 04/27/2022 Office Visit Vascular Surgery Sulema Fajardo MD [facility] DR VASCULAR SURGERY [place], [place] [address] (Wo rk) 05/18/2022 Office Visit Dermatology Alejandro Reese MD [address] [place] [address] DERMATOLOGY [place], [place] [address] (Wo rk) documented as of this encounter Visit Diagnoses Not on filedocumented in this encounter Care Teams Spooler Operator Relationship Specialty Start Date End Date aTye Ron MD PCP - General Family Medicine 11/04/16 [address] [place] [address] documented as of this encounter
--- OUTSIDE RECORDS SUMMARY | 2022-04-26 09:59 | XMS_ITS | Encounter Summary ---
:1950 Author Organization [facility] [place] [address] Care Team Providers Name Role Phone Taye Ron MD Primary Care Provider Reason for Visit Reason Comments Medication Refill Medication Management Encounter Details Date Type Department Care Team Description 07/02/2019 Specialty Pharmacy Pharmacy at [facility] Jacob, Medication Refill; [facility] Trinity Hrenandez [place] [phone] Social History Tobacco Use Types Packs/Day Years Used Date Former Smoker Cigarettes Quit: 01/11/19 99 Smokeless Tobacco: Never Used Alcohol Use Standard Drinks/Week Comments Not Currently 0 (1 standard drink = 0.6 oz pure alcoho l) Sex Assigned at Date Recorded Not on file documented as of this encounter Progress Notes Trinity James RPH - 07/02/2019 2:03 PM EST Clinical Management Plan: Refill Specialty Pharmacy Consultation; Trinity James Bharti Comprehensive Medication Management (CMM) Carlos Gan is [...] be held: No Assessment and Recommendations: Title Cognitive Ability: good Cognitive Impairment Status Verified [...] Medication Reconciliation Discrepancies (compared to [facility] med list) -none New medications: no New medical conditions: no New allergies: no Adherence: Medication Adherence Adherence tools used: directed education Support network for adherence: healthcare provider Are you experiencing any side effects from your medications? no Pt understands no changes to current drug regimen were made at the appointment and that [facility] is providing recommendations (summary located at top of note) for provider review and follow up. Trinity James RPH 07/02/19 2:04 PM documented in this encounter Plan of Treatment Upcoming Encounters Date Type Specialty Care Team Description 04/27/2022 Tech Visit Vascular Surgery Anais Singh 04/27/2022 Office Visit Vascular Surgery Sulema Fajardo MD [facility] DR VASCULAR SURGERY [place], [place] [address] (Wo rk) 05/18/2022 Office Visit Dermatology Alejandro Reese MD [address] [place] [address] DERMATOLOGY [place], [place] [address] (Wo rk) documented as of this encounter Visit Diagnoses Not on filedocumented in this encounter Care Teams Tongue [employer] Groove Machine Feeder Relationship Specialty Start Date End Date Taye Ron MD PCP - General Family Medicine 11/04/[address] [place] [phone] documented as of this encounter
--- OUTSIDE RECORDS SUMMARY | 2022-04-26 09:59 | XMS_ITS | Encounter Summary ---
:1950 Author Organization [facility] Address [facility] [place] [address] Care Team Providers Name Role Phone Taye Ron MD Primary Care Provider Encounter Details Date Type Department Care Team Description 2019 Hospital Encounter XRay at [facility] Disc[facility], S/P CABG (coronary [address] [place] [address] Dr Trip Norton MD artery bypass graft) [facility] [id number] [place] [phone] [place] [address] Social History Tobacco Use Types Packs/Day Years Used Date Former Smoker Cigarettes Quit: 01/11/19 99 Smokeless Tobacco: Never Used Alcohol Use Standard Drinks/Week Comments Not Currently 0 (1 standard drink = 0.6 oz pure alcoho l) Sex Assigned at Date Recorded Not on file documented as of this encounter Medications at Time of Discharge Medication Sig Dispensed Refills Start Date End Date insulin aspart U-100 Inject 0-33 Units 02/07/20 19 (NOVOLOG) Insulin Pen subcutaneously 3 times daily (with meals). As instructed correction factor of 10 and 1:5 insulin to carb ratio see instructions metFORMIN (GLUCOPHAGE) Take 0.5 tablets by 60 tablet 09/2018 1,000 mg Tablet mouth 2 times daily (with meals). Increase to 1000 mg BID after 2 doses insulin glargine Inject 30 Units 10 mL 12 02/06/2019 Solution subcutaneously 2 times daily. clopidogrel (PLAVIX) 75 Take 1 tablet by mouth 90 tablet 3 02/07/2019 mg Tablet daily. spironolactone Take 0.5 tablets by 90 tablet 0 02/07/2019 (ALDACTONE) 50 mg mouth daily. Tablet furosemide (LASIX) 20 Take 1 tablet by mouth 30 tablet 0 mg Tablet daily. acetaminophen (TYLENOL) Take 2 tablets by 0 02/06 500 mg Tablet mouth every 6 hours as needed for Pain. traZODone (DESYREL) 50 Take 50 mg by mouth. 0 mg Tablet gabapentin (NEURONTIN) Take 300 mg by mouth 0 300 mg Capsule Three times a day. aspirin 81 mg Tablet, Take 81 mg by mouth 0 Delayed Release (E.C.) Daily. nitroGLYcerin Place 1 tablet under 90 tablet 12 07/21/2018 (NITROSTAT) 0.4 mg the tongue every 5 Tablet, Sublingual minutes as needed for Chest pain. blood sugar diagnostic Use to test blood 400 each 3 2014 strips ([place] ULTRA sugar 4 times daily, TEST) Strip diag code E11.9 [place]-3 Fatty Acids Take by mouth. 0 (FISH OIL) 500 mg Cap multivitamin 0 06/20/2009 (THERAGRAN) tablet AMIOdarone (CORDARONE; Take 1 tablet by mouth 0 0 03/07/2019 04/06/2019 PACERONE) 200 mg Tablet daily for 30 days. atorvastatin (LIPITOR) Take 0.5 tablets by 90 tablet 3 09/201805/14/2021 80 mg Tablet mouth every evening. metoprolol tartrate Take 0.5 tablets by 0 019 03/19/2019 (LOPRESSOR) 25 mg mouth 2 times daily. Tablet cholecalciferol, Take 1 capsule by 0 1 Vitamin D3, 2,000 unit mouth Daily. Capsule documented as of this encounter Plan of Treatment Upcoming Encounters Date Type Specialty Care Team Description 04/27/2022 Tech Visit Vascular Surgery Anais Singh 04/27/2022 Office Visit Vascular Surgery Sulema Fajardo MD [facility] [address] VASCULAR SURGERY [place], [place] [address] (Wo agustin) 05/18/2022 Office Visit Dermatology Alejandro Reese MD [address] [place] [address] DERMATOLOGY [place], [place] [address] (Wo rk) documented as of this encounter Procedures Procedure Name Priority Date/Time Associated Diagnosis Comme nts XR CHEST PA AND Routine 2019 12:33 PM S/P CABG (coronary Results for this LATERAL EDT artery bypass graft) procedu re are in the results section. documented in this encounter Results XR Chest PA & Lateral (Generic) (2019 12:33 PM EDT) Anatomical Region Laterality Modality Chest N/A Digital Radiography Specimen (Source) Anatomical Location Collection Method / Collectio n Time Received Time / Laterality Volume Impressions 2019 2:36 PM EDT 1. ??Resolved bibasilar atelectasis /effusions. 2. ??No acute cardiopulmonary process. I have personally reviewed the image(s) and the residents interpretation and agree with the findings, Pina mccracken 2019 2:36 PM Thank you for letting us participate in the care of this patient. For questions regarding this report, please contact [facility] number below. ? Narrative 2019 2:36 PM EDT EXAMINATION: XR CHEST PA AND LATERAL (GENERIC) CLINICAL HISTORY: Please evaluate for in terval changes/PTX/effusions - s/p CABG X 3 TECHNIQUE: Frontal and lateral views of the chest COMPARISON: PA and lateral projections of the chest from 02/03/2019 FINDINGS: Lungs are clear. Cardiomediastinal silho uette is stable. Cecilia and pulmonary vasculature are within normal limits. No pleural effusions. No pneumothorax. Median sternotomy wires and mediastinal clips are unchanged. Procedure Note Pina Hill MD - 2019Formatt ing of this note might be different from the original. EXAMINATION: XR CHEST PA AND LATERAL ([facility]) CLINICAL HISTORY: Please evaluate for in terval changes/PTX/effusions - s/p CABG X 3 TECHNIQUE: Frontal and lateral views of the chest COMPARISON: PA and lateral projections of the chest from 02/03/2019 FINDINGS: Lungs are clear. Cardiomediastinal silho uette is stable. Cecilia and pulmonary vasculature are within normal limits. No pleural effusions. No pneumothorax. Median sternotomy wires and mediastinal clips are unchanged. IMPRESSION 1. Resolved bibasilar atelectasis /effus ions. 2. No acute cardiopulmonary process. I have personally reviewed the image(s) and the residents interpretation and agree with the findings, Pina mccracken 2019 2:36 PM Thank you for letting us participate in the care of this patient. For questions regarding this report, please contact e number below. Trip Lin MD IMG DX ORDERABLES documented in this encounter Visit Diagnoses Diagnosis S/P CABG (coronary artery bypass graft) Postsurgical aortocoronary bypass status documented in this encounter Care Teams Marine Insulator Relationship Specialty Start Date End Date Taye Ron MD PCP - General Family Medicine 11/04/[place] [phone] documented as of this encounter
--- OUTSIDE RECORDS SUMMARY | 2022-04-26 10:00 | XMS_ITS | Encounter Summary ---
:1950 Author Organization [facility] Address [address] [place] [address] Care Team Providers Name Role Phone Taye Ron MD Primary Care Provider Reason for Referral Consultation (Routine) - Closed Specialty Diagnoses / Referred By Contact Referred To Contact Procedures Cardiac Rehabilitation Diagnoses S/P CABG (coronary artery bypass graft) Trip Corona Cardiac RehabErrol MD [address] [place], [place] CARDIOTHORACIC [address] [place] [address] Referral ID Status Reason Start Date Expiration Date Visits V isits Requested Authorized [id number] Closed Consult, 02/06/2019 08/05/2019 36 36 Test & Treat Reason for Visit Auth/Cert Specialty Diagnoses / Procedures Referred By Contact Refer red To Contact Diagnoses NSTEMI (non-ST elevated myocardial infarction) NSTEMI Referral ID Status Reason Start Date Expiration Date Visits Requ ested Visits Authorized [id number] 1 1 Encounter Details Date Type Department Care Team Description 01/26/2019 - Hospital Cardiac Special Wilton Roper MD [facility] [place] [address] Ischemic cardiomyopathy; 02/06/2019 Encounter Care Unit Lizz Saleem MD [address] [place] [address] Atherosclerosis of quinault coronary arter y of quinault heart with unstable angina pectoris; [facility] Trip Corona MD [facility] CARDIOTHORACIC [place] [address] NSTEMI (non-ST elevated myocardial infar ction); Hospital S/P CABG (coronary artery by pass graft) [place] [id number] Social History Tobacco Use Types Packs/Day Years [...] Sign Reading Time Taken Comments Blood Pressure 115/59 02/06/2019 12:02 PM EDT Pulse 77 02/06/2019 12:02 PM EDT Temperature 37 ??C (98.6 ??F) 02/06/2019 12:02 PM EDT Respiratory Rate 17 02/06/2019 12:02 PM EDT Oxygen Saturation 97% 02/06/2019 12:02 PM EDT Inhaled Oxygen Concentration - - Weight 132 kg (291 lb 0.1 oz) 02/06/2019 6:08 AM EDT Height 167.6 cm (5' 6) 01/26/2019 9:16 PM EDT Body Mass Index 46.97 01/26/2019 9:16 PM EDT documented in this encounter Discharge Summaries Neli Cameron PA - 02/06/2019 12:44 PM EDT Inpatient - Discharge Summary Patient Name: Connor Gan Patient Age: 68 y.o. Birthdate: 1950 Language: Faroese Race: White Ethnicity: Not nor Admit Date: 01/26/2019 Discharge Date: 02/06/19 Attending Physician: Trip Corona MD Follow-up Recommendations for Providers: Please continue routine management of cardiovascular risk factors including blood pressure, lipids, glucose, etc. Please note any changes to medications. Patient to follow-up with PCP, Taye Ron MD, in 1-2 weeks. Patient to follow-up with [employer] Team Member, Dr. Boris Lambert, in 2 weeks. Patient to follow-up with Cardiac Surgery, Dr. Trip Corona, in ~ 4 weeks with CXR, EKG. Inpatient Provider Contact Information: [facility] Section of Cardiac [place] [facility] [place] [facility] [place] [address] FAX [phone] Discharge Diagnoses (Hospital Problems) Primary Diagnoses: 01/31/19 s/p CABG X 3 Secondary Diagnoses: Active Hospital Problems Diagnosis ??? Atherosclerosis of coronary artery ??? Ischemic cardiomyopathy ??? Hypertension ??? Dyslipidemia ??? Mitral regurgitation ??? NSTEMI (non-ST elevated myocardial infarction) ??? Type 2 diabetes mellitus with complication Resolved Hospital Problems No resolved problems to display. Other Diagnoses (Chronic Problems): Active Non-Hospital Problems Diagnosis ??? Exertional angina ??? HLD (hyperlipidemia) ??? Acute systolic heart failure ??? Psoriasis Discharged to: Rehab facility Functional and Cognitive Status: STABLE Discharge Conditions/Prognosis: STABLE Past Medical History: Diagnosis Date ??? CAD (coronary artery disease) ??? Diabetes mellitus ??? Hypertension Past Surgical History: Procedure Laterality Date ??? CREATED BY INTERFACE Entered not Verified Procedure Date: 10/06/2010 ??? CREATED BY INTERFACE No History of Operative Procedures Procedure Date: 10/06/2010 ??? PRO CABG, ARTERIAL, SINGLE N/A 01/31/2019 @CABG, USING ARTERIAL GRAFT;SINGLE ARTERIAL GRAFT (WRVU 33.75) performed by Trip [facility]ona MDat [facility] MAIN OR ??? PRO CABG, ARTERY-VEIN, TWO N/A 01/31/2019 @CABG, TWO VENOUS GRAFTS & ARTERIAL GRAFT (WRVU 7.93) performed by Trip Corona MD at [facility] MAIN OR ??? PRO ENDOSCOPY W/VIDEO-ASST VEIN HARVEST, CABG Right 01/31/2019 ENDOSCOPIC HARVEST VEIN(S) FOR CABG (WRVU 0.31) performed by Trip Corona MD at [facility] MAIN OR Prior To Admission Medications Medications Prior to Admission Medication Sig Dispense Refill Last Dose ??? traZODone (DESYREL) 50 mg Tablet Take 50 mg by mouth. 01/25/2019 at Unknown time ??? spironolactone (ALDACTONE) 50 mg Tablet Take 50 mg by mouth Daily. 01/26/2019 at Unknown time ??? metoprolol succinate (TOPROL-XL) 25 mg Tablet Sustained Release 24 hr Take 50 mg by mouth Daily.01/26/2019 at Unknown time ??? magnesium oxide (MAG-OX) 400 mg (241.3 mg magnesium) Tablet Take 400mg in the morning and 800mg at night 01/26/2019 at Unknown time ??? liraglutide (VICTOZA) 0.6 mg/0.1 mL (18 mg/3 mL) Pen Injector Inject 0.6 units into the skin daily for 1 week then 1.2mg daily for 1 week then 1.8mg daily. 01/26/2019 at Unknown time ??? gabapentin (NEURONTIN) 300 mg Capsule Take 300 mg by mouth Three times a day. 01/26/2019 at Unknown time ??? aspirin 81 mg Tablet, Delayed Release (E.C.) Take 81 mg by mouth Daily. 01/26/2019 at Unknown time ??? nitroGLYcerin (NITROSTAT) 0.4 mg Tablet, Sublingual Place 1 tablet under the tongue every 5 minutes as needed for Chest pain. 90 tablet 12 01/25/2019 at Unknown time ??? isosorbide mononitrate (IMDUR) 120 mg Tablet Sustained Release 24 hr Take 1 tablet by mouth daily. 90 tablet 3 01/26/2019 at Unknown time ??? [DISCONTINUED] metFORMIN (GLUCOPHAGE) 1,000 mg Tablet Take 1,000 mg by mouth. 01/26/2019 at Unknown time ??? atorvastatin (LIPITOR) 80 mg Tablet Take 80 mg by mouth daily. 01/25/2019 at Unknown time ??? [DISCONTINUED] insulin aspart (NOVOLOG) Insulin Pen Inject 20 Units subcutaneously 3 times daily(with meals). 01/26/2019 at Unknown time ??? [DISCONTINUED] insulin glargine (LANTUS) Solution Inject 38 Units subcutaneously 2 times daily. 01/26/2019 at Unknown time ??? Temple-3 Fatty Acids (FISH OIL) 500 mg Cap Take by mouth. 01/26/2019 at Unknown time ??? lisinopril (PRINIVIL;ZESTRIL) 40 mg tablet (Patient taking differently: 10) 01/26/2019 at Unknowntime ??? ADALIMUMAB (HUMIRA SUBQ) Past Month at Unknown time ??? cholecalciferol, Vitamin D3, 2,000 unit Capsule Take 1 capsule by mouth Daily. Unknown at Unknown time ??? acetaminophen (TYLENOL) 500 mg Tablet Take 500 mg by mouth Every 6 hours as needed. Unknown at Unknown time ??? blood sugar diagnostic strips (Supercool SchoolUCH ULTRA TEST) Strip Use to test blood sugar 4 times daily,diag code E11.9 400 each 3 Unknown at Unknown time ??? CIS Free Text Med - Aspirin Unknown at Unknown time ??? multivitamin (THERAGRAN) tablet Unknown at Unknown time ??? diphenhydrAMINE-Acetaminophen (NON-ASPIRIN PM) 25-500 mg Tab Unknown at Unknown time Updated Allergies/ADRs: Allergies Allergen Reactions ??? Methotrexate Other (See Comments) Increased bleeding, lethargic ??? Shellfish Containing Products Anaphylaxis and Other (See Comments) Numbness, tingling of the tongue. Never had any problem with contrast and never used steroids before cath ??? Cis Free Text Allergy Hymenoptera (Bee) Stings. ??? Shellfish Derived History of Presentation: 68 y/o M with h/o ASCVD ( 3VD-managed medically-[facility]), DM-2(Insulin dependent), HTN, HLD, ICM([id number]) improved from 25%(2017) and Psoriasis [facility] ang[facility] elevated troponins for further evaluation. He has been having worsening exertional shortnes of breath for the last few weeks. He also started having frequent episodes of chest discomfort at rest and with minimal exertion that requiring sub lingual nitroglycerin and its frequency has been increasing for the last week. He was unable to complete his cardiac rehab this week because of shortness of breath and chest discomfort. He has been taking his medications and denies any PND or Orthopnea. Chestdiscomfort has been similar to his previous episodes of heart attacks.He went to his primary care doctor for routine follow up and he advised to go to ER for his crescendo symptoms of angina and worsening shortness of breath. On arrival to [facility] ER he denies having any chest pain , EKG without any acute abnormality but his troponins were elevated. Because of his classical symptoms of angina and troponin elevation loaded with plavix, started on heparin and transferred to [facility] for further evaluation. ?? He denies any recent fever, chills , rigors , sick contacts, long distance travel,PND or Orthopnea. His weight has increased few pounds but denies any lower extremity edema. He has been having claudication pain with exertion. Major Procedures/Operations: 01/31/19 s/p CABG X 3 Hospital Course: 01/31/19 s/p CABG X 3 Connor Gan was admitted to [facility] on 01/26/2019 via the Cardiology Service. He was brought to the operating room where Dr. Trip Corona performed CABG X 3. He tolerated the procedure and was brought to the Cardiovascular Intensive Care Unit for recovery. He initially required the pharmacologic support of intravenous epinephrine and norepinephrine. He was extubated from the ventilator on the day of surgery. All drips were weaned to off. Routine postoperative and home medications were started and a diet wasadvanced. Aspirin 81mg daily was continued. He was started on beta blockade and this was optimized. Diuretics were started and he responded appropriately. Plavix was started for burden of quinault coronary disease. Statin therapy was started. He was transferred to the Intermediate Cardiac Care Unit for continued rehabilitation. All tubes, lines, and epicardial pacing wires were removed without incident. He voided normally after his Cerna was removed. Atrial Fibrillation He developed post-operative atrial fibrillation and was loaded with amiodarone for rhythm control. He will continue on amiodarone for 1 month until follow up with cardiac surgery. His statin dose was halved given the interaction with amiodarone and increased risk of myalgias. He was in sinus rhythm atthe time of discharge. He was seen by Physical Therapy and Cardiac Rehabilitation. Sternal precaution education was provided. His discharge plan at this time is to [facility] rehab. The remainder of the his hospital coursewas uneventful and by postoperative day #10 he had met all criteria for discharge. Pain was controlled on oral medications. He had walked 5 minutes and gone up and down stairs. He was tolerating a regular diet and had a bowel movement. Vital Signs at Discharge: Last set of vitals: BP 115/59 (BP Location (NBP): Left arm, Patient Position: Sitting) Pulse 77 Temp 37 ??C (98.6 ??F) (Oral) Resp 17 Ht 167.6 cm (5' 6) Wt 132 kg (291 lb 0.1 oz) SpO2 97% BMI 46.97 kg/m?? Patient Vitals for the past 168 hrs: Weight 02/06/19 0608 132 kg (291 lb 0.1 oz) 02/05/19 0549 133.8 kg (294 lb 15.6 oz) 02/04/19 1500 134.3 kg (296 lb 1.2 oz) 02/03/19 0545 132.9 kg (292 lb 15.9 oz) 02/02/19 0456 130.5 kg (287 lb 11.2 oz) 02/01/19 0600 133.8 kg (294 lb 15.6 oz) 01/31/19 0606 129.2 kg (284 lb 13.4 oz) Current weight: 132 kg Admit/Preop weight: 129.2 kg Pertinent physical exam findings prior to discharge: Gen: NAD, pleasant, sitting up in chair HEENT: normocephalic, atraumatic, EOMI Neck: supple, trachea midline Card: sinus on telemetry, no M/R/G appreciated Pulm: Coarse but no wheeze/ronchi/rales appreciated, non-labored breathing on room air Abd: soft, NT, BS+ Ext: warm, dry, no edema Skin: sternotomy incision C/D/I - [place] intact; right leg incision looks C/D/I Neuro: A&Ox3, CN II-XII grossly intact, nonfocal, conversant Important Studies and Lab Data: Lab Results Component Value Date WBC 18.2 (H) 02/03/2019 RBC 3.24 (L) 02/03/2019 HGB 9.7 (L) 02/03/2019 HCT 29.3 (L) 02/03/2019 PLATELET 170 02/03/2019 Recent Labs 01/31/19 1855 INR 1.5 Lab Results Component Value Date NA 135 02/03/2019 K 4.5 02/06/2019 CL 100 02/03/2019 CO2 23 02/03/2019 BUN 25 (H) 02/03/2019 CREATININE 0.88 02/03/2019 Pending Studies and Lab Data: N/A Immunizations Given this Hospitalization: There is no immunization history on file for this patient. Smoking Status at Discharge: Social History Tobacco Use Smoking Status Former Smoker ??? Types: Cigarettes ??? Last attempt to quit: 01/11/1999 ??? Years since quittin.0 Smokeless Tobacco Never Used STS Data Medications: Pre-operative beta pratibha? Given Discharge beta pratibha? Given Discharge lipid therapy? Given Discharge anti-platelet therapy? Given Discharge Medications: Your Medications Some of the medications listed here do not show instructions, such as how often to take the medication. Ask your doctor or nurse how to use these medications. Specifically ask about this and similar medications: CIS Free Text Med - Aspirin New Medications Dose Details AMIOdarone 200 mg Tab Commonly known as: CORDARONE; PACERONE Take 1 tablet by mouth daily for 30 days. Start taking on: 03/07/2019 200 mg Refills: 0 clopidogrel 75 mg Tab Commonly known as: PLAVIX Take 1 tablet by mouth daily. Start taking on: 02/07/2019 75 mg Quantity: 90 tablet Refills: 3 furosemide 20 mg Tab Commonly known as: LASIX Take 1 tablet by mouth daily. Start taking on: 02/07/2019 20 mg Quantity: 30 tablet Refills: 0 metoprolol tartrate 25 mg Tab Commonly known as: LOPRESSOR Take 0.5 tablets by mouth 2 times daily. 12.5 mg Refills: 0 oxyCODONE 5 mg Tab Commonly known as: ROXICODONE Take 1-2 tablets by mouth every 4 hours as needed for Pain. 5-10 mg Quantity: 15 tablet Refills: 0 senna-docusate 8.6-50 mg Tab Commonly known as: PERICOLACE Take 2 tablets by mouth daily. Take with narcotic pain medication. 2 tablet Quantity: 60 tablet Refills: 0 Continued medications with new dosing Dose Details acetaminophen 500 mg Tab Commonly known as: TYLENOL Take 2 tablets by mouth every 6 hours as needed for Pain. What changed: ?? how much to take ?? when to take this ?? reasons to take this 1000 mg Refills: 0 atorvastatin 80 mg Tab Commonly known as: LIPITOR Take 0.5 tablets by mouth every evening. What changed: ?? how much to take ?? when to take this 40 mg Quantity: 90 tablet Refills: 3 insulin aspart U-100 Inpn Commonly known as: NovoLOG Inject 0-33 Units subcutaneously 3 times daily (with meals). As instructed correction factor of 10 and 1:5 insulin to carb ratio see instructions What changed: ?? how much to take ?? additional instructions 0-33 Units Refills: 12 insulin glargine Soln Inject 30 Units subcutaneously 2 times daily. What changed: how much to take 30 Units Quantity: 10 mL Refills: 12 metFORMIN 1,000 mg Tab Commonly known as: GLUCOPHAGE Take 0.5 tablets by mouth 2 times daily (with meals). Increase to 1000 mg BID after 2 doses What changed: ?? how much to take ?? when to take this ?? additional instructions 500 mg Quantity: 60 tablet Refills: 12 spironolactone 50 mg Tab Commonly known as: ALDACTONE Take 0.5 tablets by mouth daily. Start taking on: 02/07/2019 What changed: ?? how much to take ?? when to take this 25 mg Quantity: 90 tablet Refills: 0 Continued medications, unchanged Dose Details aspirin 81 mg Tbec Take 81 mg by mouth Daily. 81 mg Refills: 0 blood sugar diagnostic strips [facility] Commonly known as: ONETOUCH ULTRA TEST Use to test blood sugar 4 times daily, diag code E11.9 Quantity: 400 each Refills: 3 cholecalciferol (Vitamin D3) 2,000 unit Cap Take 1 capsule by mouth Daily. 1 capsule Refills: 0 CIS FREE TEXT MED Refills: 0 FISH OIL 500 mg Cap Take by mouth. Generic drug: fish oil-omega-3 fatty acids Refills: 0 gabapentin 300 mg Cap Commonly known as: NEURONTIN Take 300 mg by mouth Three times a day. 300 mg Refills: 0 multivitamin Tab Commonly known as: THERAGRAN Refills: 0 nitroGLYcerin 0.4 mg Subl Commonly known as: NITROSTAT Place 1 tablet under the tongue every 5 minutes as needed for Chest pain. 0.4 mg Quantity: 90 tablet Refills: 12 traZODone 50 mg Tab Commonly known as: DESYREL Take 50 mg by mouth. 50 mg Refills: 0 STOPPED Medications HUMIRA SUBQ isosorbide mononitrate 120 mg Tablet sr Commonly known as: IMDUR liraglutide 0.6 mg/0.1 mL (18 mg/3 mL) Pnij Commonly known as: VICTOZA lisinopril 40 mg Tab Commonly known as: PRINIVIL;ZESTRIL magnesium oxide 400 mg (241.3 mg magnesium) Tab Commonly known as: MAG-OX metoprolol succinate 25 mg Tablet sr Commonly known as: TOPROL-XL NON-ASPIRIN PM 25-500 mg Tab Generic drug: diphenhydrAMINE-acetaminophen Instructions Given to Patient at Discharge: General Instructions Dr. Workman in [facility] is the rfid technician for follow up Insulin Discharge Instructions Resume metformin at 500 mg twice daily for 2 doses if no adverse GI effect may increase to home doseof 1000 mg twice daily Instructions for Lantus Insulin (LONG ACTING) 1. Inject LANTUS 30 units insulin every 12 hours Check blood glucose (BG) before breakfast 3. If the blood glucose before breakfast is over 150 for two days in a row, add TWO units of insulinto BOTH LANTUS doses. This increased dose becomes your new dose, continue to increase as needed. 4. If the blood glucose before breakfast is under 90 for two days in a row, subtract TWO units of insulin from BOTH LANTUS doses. This lower dose becomes your new dose, continue to decrease as needed. Instructions for Mealtime Novolog (or Humalog) Insulin This is the rapid-acting insulin, used at mealtime to prevent a high BG after you eat. Check your BGbefore each meal. 1. If your BG is 100 or higher, inject Novolog right before eating. 2. If your BG is 80 - 100, inject Novolog right after eating. 3. If your BG is lower than 80, or you have symptoms of a low BG, treat the low BG first, then eat your meal and take the Novolog after eating. 4. Inject 0-15 units of novolog for breakfast, 0-15 units for lunch and 0-15 units for dinner based on a 1 unit per every 5 gram carbohydrate insulin to carbohydrate ratio. For a low carb/small meal take 6 units, medium meal take 10 units for a large/high carb meal take 15units ADD the following dose if your blood glucose is over 140 at meal time based on an insulin sensitivity factor of 10 meaning 1 unit of insulin is estimated to decrease your BG by 10 points. Blood Sugar NOVOLOG DOSE 140-159 ADD 2 unit 160-179 ADD 4 units 180-199 ADD 6 units 200-219 ADD 8 units 220-239 ADD 10 units 240-259 ADD 12 units 260-279 ADD 14units 280-299 ADD 16 units >300 ADD 18 units and call Doctor 6. If you should forget to take your Novolog. If it is less than an hour since you ate your meal, take the calculated dose If more than an hour has passed since you ate, recheck blood glucose and dose accordingly. Try to get some extra exercise and drink a lot of water to help with the high blood sugar. Treatment of Low Blood Sugar (Hypoglycemia) If your BG is lower than 80, you are likely to feel shaky, sweaty and lightheaded. This is a signal that your body needs more sugar. Quickly eat or drink a small serving of something sweet, such as: 4 ounces fruit juice or regular (not diet) soda 6 [facility] small box of raisins 4 glucose tablets (~15 gm of glucose) If your BG is very low <50, you can double the amount above or take 30 gm of glucose gel/tablets. Sit and rest and you should feel better within a few minutes. Once you are feeling better, try to determine why your BG was so low. Common causes of hypoglycemia include skipping a meal, lots of exercise, too much insulin or any combination of these things. Understanding the cause my help you to avoidanother low BG in the future. Call your doctor for blood sugars less than 80 or greater than 300 twice in one day to have your insulin doses adjusted. Discharge Instructions: Call your doctor if: You have a fever of greater than 101 degrees, shaking chills, if you develop redness or drainage from your incision sites, or if you have questions. Please call your surgeon's office if you have any discharge or drainage from your chest incision. Your surgeon, Dr. Trip Corona and/or the Cardiac Surgery Physician Remote Sensing Research Scientist Team may be reached at . Weight: Weigh yourself daily. Please call the office if you notice increasing weight, increasing fluid retention (edema), and/or SOB. Sternal (breast bone) precautions: No lifting greater than 7-10 pounds; no pushing or pulling with upper extremities; no excessive chest stretching for the first 4 weeks. Further instructions will be given to you at your follow-up appointment. Activity level: Walk three times a day. You should continue to increase your walks by 1-2 minutes each day. It is expected that you will be walking 20-30 minutes twice a day within 3-4 weeks after discharge to home. Rest between activities and after meals. Use common sense, don't exhaust yourself. Biking: You may use a stationary bicycle whenever you are comfortable enough to permit this. Tightenthe resistance slightly. Increase the amount of time on the bicycle as you would do for your walks, a minute or two each day. No biking outside until after your return appointment with Dr. Trip Corona. You may use a [place] or treadmill but avoid any pulling motion with the arms. Home activities: You may do light housework, e.g. dusting, setting the table, washing dishes, preparing a meal. Light carpentry and gardening are allowed. Avoid trying to open tight jars and stuck windows. No vacuuming, mopping, raking, shoveling, digging or hoeing until after your return visit with the surgeon. Sexual activity: You may engage in sexual activity when you feel ready. Use a position that protectsyour sternum (breastbone). Do not have your partner lie on your chest. Stairs: There are no restrictions on stair climbing. Use common sense. Don't exhaust yourself. Activities outside the home: After the first week home you may go out to dinner, visit friends, go to a movie, go to religious, etc. Heavy activities: No hunting, skiing, jogging, snow shoveling, snowmobiling, lawn mowing, swimming, golf or tennis until after your return appointment with the surgeon. Do not ride motorcycles, Tutor's tractors or horses. Avoid the use of a rifle with kickback against the shoulder for six months. Sleep: Try to establish normal sleep patterns. Long naps during the day may make it hard for you to sleep at night. Use the pain medication at bedtime for the first week at home. If you have nightmares, contact us. Some medications make this worse and these can be changed. Smoking: It is very important that you not smoke after surgery. Smoking cessation education was provided as appropriate. If you need further assistance with this please call and you will be referred toa smoking cessation specialist. Medications: Take only those medications listed on your discharge information. Keep your pain under control so you can be active, do your coughing and breathing exercises and sleep. Contact us if the pain medication isn't working for you. Do not take any herbal preparations until after you return to see the surgeon. Special Physician Instructions: DO NOT USE ANY IBUPROFEN (ADVIL, MOTRIN, ETC) OR OTHER NSAIDS (NONSTEROIDAL ANTI-INFLAMMATORY DRUGS) FOR A TOTAL OF 10 DAYS AFTER SURGERY. PLEASE CONTACT THE CARDIOTHORACIC SURGERY OFFICE IF YOU HAVE QUESTIONS ABOUT WHICH DRUGS YOU SHOULD NOT USE. . Diet: You should follow a regular diet until your appetite returns to normal. At that point in time you should resume a low fat, low cholesterol, [place] [employer] Diet/Diabetic diet. Driving: No driving until cleared by your surgeon. Avoid long trips if possible. If you must go on along trip, stop the car and walk every hour. Shower/Bath: You may shower daily. No baths, soaking, or swimming until cleared by your surgeon. Wound care: Wash your incisions daily with soap and rinse well, pat dry. Assess for any signs of infection such as increased redness, pain, warmth or drainage. Please call your surgeon's office if you have any discharge or drainage from your chest incision. If there is a lot of swelling, apply andree wraps during the day and remove at bedtime. Elevate your legs when you are sitting. CHEST TUBE SUTURES & KINGSOTN WILL BE REMOVED AT ~[address] FOLLOW UP WITH DR. CORONA. Home oxygen therapy: N/A Follow up appointments: You should make an appointment to follow-up with your PCP, Taye Ron MD, in 1- 2 weeks. Our office will schedule an appointment with your [employer] Team Member, Dr. Boris Lambert MD, in 2 weeks. Our office will schedule an appointment with your Cardiac Surgeon, Dr. Trip Corona, in ~ 4 weeks with chest x-ray, EKG before your appointment. Cardiac Rehabilitation: [facility] ?? Connor Gan was seen today regarding participation in the outpatient Phase 2 Cardiac Rehabilitation at [facility]. The patient agrees to a referral to this program. The referral will be sent at discharge and the patient should be contacted by the Program within 1- 2 weeks from discharge. Future Appointments and Orders Future Appointments and Orders Future Appointments Provider Department Dept Phone 03/19/2019 11:30 AM Alejandro Reese MD Dermatology at [place] Arrive at: [facility] [address] [phone] Future Orders Complete By Expires EKG 12 Lead [38805 CPT(R)] 02/06/2019 (Approximate) 02/07/2020 Process Instructions: Scheduling Instructions: Questions: Which location will this be performed?: [place] Is a rhythm strip needed?: No XR Chest PA & Lateral (Generic) [80350 96055 Custom] 02/06/2019 (Approximate) 02/07/2020 Process Instructions: Scheduling Instructions: Questions: Where will study be performed?: [facility] Radiology Portable exam?: Reason for exam and clinical history: Please evaluate for interval changes/PTX/effusions - s/p CABGX 3 Other pertinent information: Stat read required?: Date of injury if applicable: Requested Time: Referral to Cardiac Rehab [[id number] Custom] As directed Process Instructions: If no progress note charted, please enter Clinical details in comments. Scheduling Instructions: Questions: My question or request is: CABG- CR at [facility] Arrangements for VNA/home care: As above. VN RN OR PCP CHEST TUBE SUTURES & KINGSTON WILL BE REMOVED AT ~[address]LLOW UP WITH DR. CORONA. Signed: DO Mcdonnell [facility] Section of Cardiac Surgery [facility] [place] [id number] FAX [phone] Date: 02/06/2019 CC: MD Aftab Steiner Michael J, MD [address] [place] [address] [place] [address] documented in this encounter Discharge Instructions Discharge InstructionsMontserrat Flores APRN - 02/06/2019 9:[address] Workman in [facility] is the rfid technician for follow up Insulin Discharge Instructions Resume metformin at 500 mg twice daily for 2 doses if no adverse GI effect may increase to home doseof 1000 mg twice daily Instructions for Lantus Insulin (LONG ACTING) 1. Inject LANTUS 30 units insulin every 12 hours Check blood glucose (BG) before breakfast 3. If the blood glucose before breakfast is over 150 for two days in a row, add TWO units of insulinto BOTH LANTUS doses. This increased dose becomes your new dose, continue to increase as needed. 4. If the blood glucose before breakfast is under 90 for two days in a row, subtract TWO units of insulin from BOTH LANTUS doses. This lower dose becomes your new dose, continue to decrease as needed. Instructions for Mealtime Novolog (or Humalog) Insulin This is the rapid-acting insulin, used at mealtime to prevent a high BG after you eat. Check your BGbefore each meal. 1. If your BG is 100 or higher, inject Novolog right before eating. 2. If your BG is 80 - 100, inject Novolog right after eating. 3. If your BG is lower than 80, or you have symptoms of a low BG, treat the low BG first, then eat your meal and take the Novolog after eating. 4. Inject 0-15 units of novolog for breakfast, 0-15 units for lunch and 0-15 units for dinner based on a 1 unit per every 5 gram carbohydrate insulin to carbohydrate ratio. For a low carb/small meal take 6 units, medium meal take 10 units for a large/high carb meal take 15units ADD the following dose if your blood glucose is over 140 at meal time based on an insulin sensitivity factor of 10 meaning 1 unit of insulin is estimated to decrease your BG by 10 points. Blood Sugar NOVOLOG DOSE 140-159 ADD 2 unit 160-179 ADD 4 units 180-199 ADD 6 units 200-219 ADD 8 units 220-239 ADD 10 units 240-259 ADD 12 units 260-279 ADD 14units 280-299 ADD 16 units >300 ADD 18 units and call Doctor 6. If you should forget to take your Novolog. If it is less than an hour since you ate your meal, take the calculated dose If more than an hour has passed since you ate, recheck blood glucose and dose accordingly. Try to get some extra exercise and drink a lot of water to help with the high blood sugar. Treatment of Low Blood Sugar (Hypoglycemia) If your BG is lower than 80, you are likely to feel shaky, sweaty and lightheaded. This is a signal that your body needs more sugar. Quickly eat or drink a small serving of something sweet, such as: 4 ounces fruit juice or regular (not diet) soda 6 lifesavers small box of raisins 4 glucose tablets (~15 gm of glucose) If your BG is very low <50, you can double the amount above or take 30 gm of glucose gel/tablets. Sit and rest and you should feel better within a few minutes. Once you are feeling better, try to determine why your BG was so low. Common causes of hypoglycemia include skipping a meal, lots of exercise, too much insulin or any combination of these things. Understanding the cause my help you to avoidanother low BG in the future. Call your doctor for blood sugars less than 80 or greater than 300 twice in one day to have your insulin doses adjusted. Patient InstructionsNgNeli sanchez PA - 02/06/2019 1:08 PM EDT Discharge Instructions: Call your doctor if: You have a fever of greater than 101 degrees, shaking chills, if you develop redness or drainage from your incision sites, or if you have questions. Please call your surgeon's office if you have any discharge or drainage from your chest incision. Your surgeon, Dr. Trip Corona and/or the Cardiac Surgery Physician Remote Sensing Research Scientist Team may be reached at . Weight: Weigh yourself daily. Please call the office if you notice increasing weight, increasing fluid retention (edema), and/or SOB. Sternal (breast bone) precautions: No lifting greater than 7-10 pounds; no pushing or pulling with upper extremities; no excessive chest stretching for the first 4 weeks. Further instructions will be given to you at your follow-up appointment. Activity level: Walk three times a day. You should continue to increase your walks by 1-2 minutes each day. It is expected that you will be walking 20-30 minutes twice a day within 3-4 weeks after discharge to home. Rest between activities and after meals. Use common sense, don't exhaust yourself. Biking: You may use a stationary bicycle whenever you are comfortable enough to permit this. Tightenthe resistance slightly. Increase the amount of time on the bicycle as you would do for your walks, a minute or two each day. No biking outside until after your return appointment with Dr. Trip Corona. You may use a [place] or treadmill but avoid any pulling motion with the arms. Home activities: You may do light housework, e.g. dusting, setting the table, washing dishes, preparing a meal. Light carpentry and gardening are allowed. Avoid trying to open tight jars and stuck windows. No vacuuming, mopping, raking, shoveling, digging or hoeing until after your return visit with the surgeon. Sexual activity: You may engage in sexual activity when you feel ready. Use a position that protectsyour sternum (breastbone). Do not have your partner lie on your chest. Stairs: There are no restrictions on stair climbing. Use common sense. Don't exhaust yourself. Activities outside the home: After the first week home you may go out to dinner, visit friends, go to a movie, go to religious, etc. Heavy activities: No hunting, skiing, jogging, snow shoveling, snowmobiling, lawn mowing, swimming, golf or tennis until after your return appointment with the surgeon. Do not ride motorcycles, Tutor's tractors or horses. Avoid the use of a rifle with kickback against the shoulder for six months. Sleep: Try to establish normal sleep patterns. Long naps during the day may make it hard for you to sleep at night. Use the pain medication at bedtime for the first week at home. If you have nightmares, contact us. Some medications make this worse and these can be changed. Smoking: It is very important that you not smoke after surgery. Smoking cessation education was provided as appropriate. If you need further assistance with this please call and you will be referred toa smoking cessation specialist. Medications: Take only those medications listed on your discharge information. Keep your pain under control so you can be active, do your coughing and breathing exercises and sleep. Contact us if the pain medication isn't working for you. Do not take any herbal preparations until after you return to see the surgeon. Special Physician Instructions: DO NOT USE ANY IBUPROFEN (ADVIL, MOTRIN, ETC) OR OTHER NSAIDS (NONSTEROIDAL ANTI-INFLAMMATORY DRUGS) FOR A TOTAL OF 10 DAYS AFTER SURGERY. PLEASE CONTACT THE CARDIOTHORACIC SURGERY OFFICE IF YOU HAVE QUESTIONS ABOUT WHICH DRUGS YOU SHOULD NOT USE. . Diet: You should follow a regular diet until your appetite returns to normal. At that point in time you should resume a low fat, low cholesterol, [place] [employer] Diet/Diabetic diet. Driving: No driving until cleared by your surgeon. Avoid long trips if possible. If you must go on along trip, stop the car and walk every hour. Shower/Bath: You may shower daily. No baths, soaking, or swimming until cleared by your surgeon. Wound care: Wash your incisions daily with soap and rinse well, pat dry. Assess for any signs of infection such as increased redness, pain, warmth or drainage. Please call your surgeon's office if you have any discharge or drainage from your chest incision. If there is a lot of swelling, apply andree wraps during the day and remove at bedtime. Elevate your legs when you are sitting. CHEST TUBE SUTURES & KINGSTON WILL BE REMOVED AT ~4 WEEK FOLLOW UP WITH DR. CORONA. Home oxygen therapy: N/A Follow up appointments: You should make an appointment to follow-up with your PCP, Taye Ron MD, in 1- 2 weeks. Our office will schedule an appointment with your [employer] Team Member, Dr. Boris Lambert MD, in 2 weeks. Our office will schedule an appointment with your Cardiac Surgeon, Dr. Trip Corona, in ~ 4 weeks with chest x-ray, EKG before your appointment. Cardiac Rehabilitation: [facility] ?? Connor Gan was seen today regarding participation in the outpatient Phase 2 Cardiac Rehabilitation at [facility]. The patient agrees to a referral to this program. The referral will be sent at discharge and the patient should be contacted by the Program within 1- 2 weeks from discharge. documented in this encounter Medications at Time of Discharge Medication Sig Dispensed Refills Start Date End Date insulin aspart U-100 Inject 0-33 Units 12 02/07/20 19 (NOVOLOG) Insulin Pen subcutaneously 3 times daily (with meals). As instructed correction factor of 10 and 1:5 insulin to carb ratio see instructions metFORMIN (GLUCOPHAGE) Take 0.5 tablets by 60 tablet 12 09/2018 1,000 mg Tablet mouth 2 times [...] test blood 400 each 3 2014 strips (Supercool SchoolUCH ULTRA sugar 4 times daily, TEST) Strip diag code E11.9 Temple-3 Fatty Acids Take by mouth. 0 (FISH [...] 25 mg mouth 2 times daily. Tablet oxyCODONE (ROXICODONE) Take 1-2 tablets by 15 tablet 0 09/201803/05/2019 5 mg Tablet mouth every 4 hours as needed for Pain. senna-docusate Take 2 tablets by 60 tablet 0 02/06/2019 (PERICOLACE) 8.6-50 mg mouth daily. Take with Tablet narcotic pain medication. cholecalciferol, Take 1 capsule by 0 1 Vitamin D3, 2,000 unit mouth Daily. Capsule CIS Free Text Med - 0 06/20/200903/05 Aspirin documented as of this encounter Progress Notes Jacqueline Zelaya RN - 02/06/2019 2:30 PM EDT IV and Tele d/c. AVS reviewed with pt and ex . [facility] Pt went in private car to rehab. Myra Verma - 02/06/2019 2:06 PM EDT Office of Care Management/Recreation Facility Attendant Patient Name: Connor Gan : 1950 Patient has been offered a snf bed at [facility] Pts to transport pt to facility. No MD to MD report necessary Please call Nursing Report to [phone], ask for psychology clinician. Info to accompany patient: Narcotic Prescriptions Copies of Medication Administration Records and IV sheets for past 10 days. Plan: Recreation Facility Attendant will be available to the patient and Sugar Sampler-RN and/or Rubber Goods Finisher for further assistance. Patient will be discharged to: [facility] [address] [place] [id number] [address] Zehra Akhtar RN - 02/06/2019 12:10 PM EDT An Important Message From Medicare about Your Rights letter reviewed with pt and pt signed acknowledgment and was provided copy Zehra Akhtar RN - 02/06/2019 11:04 AM EDT Images from the original note were not included. Patient is medically ready for discharge today. Patient accepted bed offer at: [facility] Address [address] [place] [address] RN please call nursing report to: Transportation: car by spouse Victorina Montserrat Flores APRN - 02/06/2019 9:41 AM EDT Images from the original note were not included. Follow Up Diabetes Consult Patient Interview Transitioned off IV insulin to basal bolus yesterday. IV had been off 02:00 am to 07:00 am. Unclear why this happened. He was drinking cranberry juice when I saw him yesterday morning, encouraged to drink water. Objective Temp: [36.9 ??C (98.4 ??F)-37.2 ??C (99 ??F)] Heart Rate: [74-85] Resp: [11-19] BP: (113-145)/(58-73) SpO2: [94 %-97 %] Heart Rate from SpO2: [76 bpm-84 bpm] Current Regimen from previous note Lantus:50 units at 21:00 Lispro 1:5 insulin to carbohydrate ratio Lispro for correction q 4 hours using custom sliding scale Cf 10 Diet cardiac level 2 carb control Recent Glucose Levels Recent Labs 02/06/19 0747 02/06/19 0500 02/05/19 2318 02/05/19 1957 02/05/19 1621 02/05/19 1417 02/05/19 1144 02/05/19 1105 02/05/19 1034 02/05/19 1010 02/05/19 0910 02/05/19 0805 POCGLU 147 129 132 248* 230* 245* 222* 214* 288* 272* 270* 232* ASSESSMENT Patient is a 68 y.o. years old male with PMH significant for DM (Last A1C of 7.2%) who was admitted on 01/26/2019 for CABG. Diabetes moderately controlled and currently complicated by stress of surgey. Currently with variability of blood glucose levels while hospitalized requiring adjustment of insulinregimen and DM medications. He required 63 units rapid acting insulin from 8 am to mignight yesterday with 50 units of lantus from the night before. At home he was taking 20 units 3 times daily with each meal in addition to metformin, victoza and lantus 38 units twice daily. Would split lantus now and give 30 units twice daily starting tonight. His metformin may be resumed. Would continue with 1:5 insulin to carb ratio and correction factor of 10. Follow up with PCP re resuming victoza after rehab. PLAN Insulin Discharge Instructions Resume metformin at 500 mg twice daily for 2 doses if no adverse GI effect may increase to home doseof 1000 mg twice daily Instructions for Lantus Insulin (LONG ACTING) 1. Inject LANTUS 30 units insulin every 12 hours Check blood glucose (BG) before breakfast 3. If the blood glucose before breakfast is over 150 for two days in a row, add TWO units of insulinto BOTH LANTUS doses. This increased dose becomes your new dose, continue to increase as needed. 4. If the blood glucose before breakfast is under 90 for two days in a row, subtract TWO units of insulin from BOTH LANTUS doses. This lower dose becomes your new dose, continue to decrease as needed. Instructions for Mealtime Novolog (or Humalog) Insulin This is the rapid-acting insulin, used at mealtime to prevent a high BG after you eat. Check your BGbefore each meal. 1. If your BG is 100 or higher, inject Novolog right before eating. 2. If your BG is 80 - 100, inject Novolog right after eating. 3. If your BG is lower than 80, or you have symptoms of a low BG, treat the low BG first, then eat your meal and take the Novolog after eating. 4. Inject 0-15 units of novolog for breakfast, 0-15 units for lunch and 0-15 units for dinner based on a 1 unit per every 5 gram carbohydrate insulin to carbohydrate ratio. For a low carb/small meal take 6 units, medium meal take 10 units for a large/high carb meal take 15units ADD the following dose if your blood glucose is over 140 at meal time based on an insulin sensitivity factor of 10 meaning 1 unit of insulin is estimated to decrease your BG by 10 points. Blood Sugar NOVOLOG DOSE 140-159 ADD 2 unit 160-179 ADD 4 units 180-199 ADD 6 units 200-219 ADD 8 units 220-239 ADD 10 units 240-259 ADD 12 units 260-279 ADD 14units 280-299 ADD 16 units >300 ADD 18 units and call Doctor 6. If you should forget to take your Novolog. If it is less than an hour since you ate your meal, take the calculated dose If more than an hour has passed since you ate, recheck blood glucose and dose accordingly. Try to get some extra exercise and drink a lot of water to help with the high blood sugar. Treatment of Low Blood Sugar (Hypoglycemia) If your BG is lower than 80, you are likely to feel shaky, sweaty and lightheaded. This is a signal that your body needs more sugar. Quickly eat or drink a small serving of something sweet, such as: 4 ounces fruit juice or regular (not diet) soda 6 lifesavers small box of raisins 4 glucose tablets (~15 gm of glucose) If your BG is very low <50, you can double the amount above or take 30 gm of glucose gel/tablets. Sit and rest and you should feel better within a few minutes. Once you are feeling better, try to determine why your BG was so low. Common causes of hypoglycemia include skipping a meal, lots of exercise, too much insulin or any combination of these things. Understanding the cause my help you to avoidanother low BG in the future. Call your doctor for blood sugars less than 80 or greater than 300 twice in one day to have your insulin doses adjusted. Montserrat Flores APRN [facility] Endocrinology Diabetes Management Pager [phone] minutes of this 35 minute visit was spent with the patient in counseling on diabetes and treatment plan, reviewing all glucose and insulin data as well as relevant laboratory results with the patient, and coordination of care on the inpatient unit including nursing and primary team. Neli Jiménez, PA - 02/06/2019 8:06 AM EDT Cardiac Surgery Progress Note: ID: [id number] Mr. Gan 6 Days Post-Op s/p CABG x 3. Pmhx pertinent for CAD, HTN, HLD, MR, DMII, cardiomyopathy, psoriasis, former smoker. EF- 45% 24 Hour Events: - Oxygen desaturation to 76% with spontaneous recovery to 95% upon waking up. Currently 94% on room air. - Insulin gtt off; SQ dosing per Endocrine S: Eager for discharge. Chronic cough annoying him. Sternal pain controlled, feeling well. No complaints. Ariana PO diet. Ambulating. + flatus. +BM. Denies n/v, fever, chills, SOB, CP, abd pain. O: Temperature Temp: 37.2 ??C (99 ??F) Temp: [36.9 ??C (98.4 ??F)-37.2 ??C (99 ??F)] Heart Rate Heart Rate: 76 Heart Rate: [74-85] Blood Pressure BP: 116/58 BP: (109-145)/(58-73) Respiratory Rate Resp: 13 Resp: [11-19] SpO2 SpO2: 94 % SpO2: [91 %-97 %] Intake/Output Summary (Last 24 hours) at 02/06/2019 0806 Last data filed at 02/06/2019 0000 Gross per 24 hour Intake 1620 ml Output 1875 ml Net -255 ml Admit weight 131.6 kg Current Weight Weight: 132 kg (291 lb 0.1 oz) Patient Vitals for the past 168 hrs: Weight 02/06/19 0608 132 kg (291 lb 0.1 oz) 02/05/19 0549 133.8 kg (294 lb 15.6 oz) 02/04/19 1500 134.3 kg (296 lb 1.2 oz) 02/03/19 0545 132.9 kg (292 lb 15.9 oz) 02/02/19 0456 130.5 kg (287 lb 11.2 oz) 02/01/19 0600 133.8 kg (294 lb 15.6 oz) 01/31/19 0606 129.2 kg (284 lb 13.4 oz) Physical exam: General: NAD, sitting up in chair, pleasant NAD Neuro: Grossly non focal. CN 2-12 intact. Lungs: Normal work of breathing on room air; Pulling 3451-7063 mL on incentive spirometer. Heart: RRR, SR on tele Abdomen: NTND Ext: trace blt LE edema Incisions: sternotomy open to air - kingston intact; CDI, RLE incision C/D/I with dermabond residue Tubes/Lines/Drains: PIVs LABS: No results for input(s): WBC, HGB, HCT, PLATELET, PT, INR, PTT, FIBRINOGEN in the last 72 hours. Recent Labs 02/05/19 0708 02/04/19 0900 02/04/19 0435 02/03/19 0928 K 4.4 4.6 4.1 4.6 Assessment/Plan: Mr. Gan 6 Days Post-Op s/p CABG x 3. Pmhx pertinent for CAD, HTN, HLD, MR, DMII, cardiomyopathy, psoriasis, former smoker. Doing well postoperatively. Neuro: APAP, oxy prn, neurontin 300''' CV: lopressor 12.5'', statin 80', amio 200 bid Resp: wean o2 to maintain 02 >92%, IS, OOB GI: ADAT to carb control/cardiac diet, protonix, zofran prn, rbos : voiding, monitor UOP Renal: lasix 20 PO QD, spironolactone 50', monitor K and replete prn ID: Post Heme: ASA 81, plavix 75 mg qd for diffuse burden of quinault coronary disease Endo: Endocrinology recommendations for home regimen pending Other: - Discussed Humira/adalimumab with Derm - Hold Humira for post-operative wound healing. If he needs to defer the immunosuppressant past 1-2 weeks, he will have to return to his mural painter for a reloading dose. D/W patient, he expresses understanding and is agreeable to plan. - Rheumatology outpatient referral recommended by Fellow; Rheum expressed similar concerns regardingwound healing while on immunotherapy. Patient informed. Dispo: Floor, full code. Pending rehab placement DW Attending Surgeon on rounds. DO Mcdonnell 02/06/19 Cardiac Surgery Pager [phone] Neli Jiménez PA - 02/05/2019 11:55 AM EDT Cardiac Surgery Progress Note: ID: [id number] Mr. Gan 5 Days Post-Op s/p CABG x 3. Pmhx pertinent for CAD, HTN, HLD, MR, DMII, cardiomyopathy, psoriasis, former smoker. EF- 45% 24 Hour Events: - No events S: Questioning his home med Humira schedule and would like to see rheumatology for his chronic multi-joint pain. Sternal pain controlled, feeling well. No complaints. Ariana PO diet. Ambulating. + flatus.+BM. Denies n/v, fever, chills, SOB, CP, abd pain. O: Temperature Temp: 37.1 ??C (98.8 ??F) Temp: [37 ??C (98.6 ??F)-37.1 ??C (98.8 ??F)] Heart Rate Heart Rate: 74 Heart Rate: [71-82] Blood Pressure BP: 131/61 BP: (109-143)/(54-70) Respiratory Rate Resp: 19 Resp: [15-24] SpO2 SpO2: 95 % SpO2: [91 %-95 %] Intake/Output Summary (Last 24 hours) at 02/05/2019 1155 Last data filed at 02/05/2019 0910 Gross per 24 hour Intake 1390 ml Output 2175 ml Net -785 ml Admit weight 131.6 kg Current Weight Weight: 133.8 kg (294 lb 15.6 oz) Patient Vitals for the past 168 hrs: Weight 02/05/19 0549 133.8 kg (294 lb 15.6 oz) 02/04/19 1500 134.3 kg (296 lb 1.2 oz) 02/03/19 0545 132.9 kg (292 lb 15.9 oz) 02/02/19 0456 130.5 kg (287 lb 11.2 oz) 02/01/19 0600 133.8 kg (294 lb 15.6 oz) 01/31/19 0606 129.2 kg (284 lb 13.4 oz) 01/30/19 0500 130 kg (286 lb 9.6 oz) Physical exam: General: NAD, sitting up in bed, pleasant NAD Neuro: Grossly non focal. CN 2-12 intact. Lungs: Normal work of breathing on nasal cannula Heart: RRR, SR on tele Abdomen: NTND Ext: trace blt LE edema Incisions: sternotomy with bandage in place- CDI, RLE wrapped with andree bandage Tubes/Lines/Drains: PIVs LABS: Recent Labs 02/03/19226 WBC 18.2* HGB 9.7* HCT 29.3* PLATELET 170 Recent Labs 02/05/19 0708 02/04/19 0900 02/04/19 0435 02/03/19 0928 02/03/19 0227 NA -- -- -- -- 135 K 4.4 4.6 4.1 4.6 4.3 CL -- -- -- -- 100 CO2 -- -- -- -- 23 BUN -- -- -- -- 25* CREATININE -- -- -- -- 0.88 GLUCOSE -- -- -- -- 152 CALCIUM -- -- -- -- 7.9* Assessment/Plan: Mr. Gan 5 Days Post-Op s/p CABG x 3. Pmhx pertinent for CAD, HTN, HLD, MR, DMII, cardiomyopathy, psoriasis, former smoker. - Discussed Humira/adalimumab with Derm - if no contraindications or concerns regarding wound healing, he can continue his standard dose as scheduled on . If he needs to defer the immunosuppressant past 1-2 weeks, he will have to return to his mural painter for a reloading dose. - Rheumatology outpatient referral recommended by Fellow; Rheum expressed similar concerns regardingwound healing while on immunotherapy. - Continue Lasix - change to PO QD, home spironolactone - ASA / Plavix - PO amiodarone 200 bid - Continue insulin infusion per endocrine Neuro: APAP, oxy prn, neurontin 300''' CV: lopressor 12.5'', statin 80', amio 200 bid Resp: wean o2 to maintain 02 >92%, IS, OOB GI: ADAT to carb control/cardiac diet, protonix, zofran prn, rbos : voiding, monitor UOP Renal: lasix 20 PO QD, spironolactone 50', monitor K and replete prn ID: no acute concerns Heme: ASA 81, plavix 75 mg qd for diffuse burden of quinault coronary disease Endo: maintain on insulin gtt, lantus 50U qhs; appreciate Endocrinology recommendations Dispo: Floor, full code. Needs rehab at d/c DW Attending Surgeon on rounds. DO Mcdonnell 02/05/19 Cardiac Surgery Pager [phone] Adi Patel PA - 02/04/2019 10:37 AM EDT Cardiac Surgery Progress Note: ID: [id number] Mr. Gan 4 Days Post-Op s/p CABG x 3. Pmhx pertinent for CAD, HTN, HLD, MR, DMII, cardiomyopathy, psoriasis, former smoker. EF- 45% 24 Hour Events: - Continues in NSR. - No events. S: Pain controlled, feeling well. No complaints. Ariana PO diet. Ambulating. + flatus. Needs BM. Deniesn/v, fever, chills, SOB, CP, abd pain. O: Temperature Temp: 36.8 ??C (98.2 ??F) Temp: [36.8 ??C (98.2 ??F)-37.4 ??C (99.3 ??F)] Heart Rate Heart Rate: 70 Heart Rate: [67-78] Blood Pressure BP: 133/60 BP: (115-133)/(48-62) Respiratory Rate Resp: 17 Resp: [17-21] SpO2 SpO2: 92 % SpO2: [91 %-97 %] Intake/Output Summary (Last 24 hours) at 02/04/2019 1037 Last data filed at 02/04/2019 0913 Gross per 24 hour Intake 640 ml Output 2050 ml Net -1410 ml Admit weight 131.6 kg Current Weight Weight: 132.9 kg (292 lb 15.9 oz) Patient Vitals for the past 168 hrs: Weight 02/03/19 0545 132.9 kg (292 lb 15.9 oz) 02/02/19 0456 130.5 kg (287 lb 11.2 oz) 02/01/19 0600 133.8 kg (294 lb 15.6 oz) 01/31/19 0606 129.2 kg (284 lb 13.4 oz) 01/30/19 0500 130 kg (286 lb 9.6 oz) 01/29/19 0633 129.5 kg (285 lb 7.9 oz) Physical exam: General: NAD, sitting up in bed, pleasant NAD Neuro: Grossly non focal. CN 2-12 intact. Lungs: Normal work of breathing on nasal cannula Heart: RRR, SR on tele Abdomen: NTND Ext: trace blt LE edema Incisions: sternotomy with bandage in place- CDI, RLE wrapped with andree bandage Tubes/Lines/Drains: PIVs LABS: Recent Labs 02/03/19226 WBC 18.2* HGB 9.7* HCT 29.3* PLATELET 170 Recent Labs 02/04/19 0900 02/04/19 0435 02/03/19 0928 02/03/1922602/02/19 041 NA -- -- -- 135 -- K 4.6 4.1 4.6 4.3 4.8 CL -- -- -- 100 -- CO2 -- -- -- 23 -- BUN -- -- -- 25* -- CREATININE -- -- -- 0.88 -- GLUCOSE -- -- -- 152 -- CALCIUM -- -- -- 7.9* -- Assessment/Plan: Mr. Gan 4 Days Post-Op s/p CABG x 3. Pmhx pertinent for CAD, HTN, HLD, MR, DMII, cardiomyopathy, psoriasis, former smoker. Continue Lasix, home spironolactone ASA / Plavix PO amiodarone 200 bid Continue insulin infusion per endocrine Neuro: APAP, oxy prn, neurontin 300''' CV: lopressor 12.5'', statin 80', amio 200 bid Resp: wean o2 to maintain 02 >92%, IS, OOB GI: ADAT to carb control/cardiac diet, protonix, zofran prn, rbos : voiding, monitor UOP Renal: lasix 20 iv bid, spironolactone 50', monitor K and replete prn ID: no acute concerns Heme: ASA 81, plavix 75 mg qd for diffuse burden of quinault coronary disease Endo: maintain on insulin gtt, lantus 50U qhs; appreciate Endocrinology recommendations Dispo: Floor, full code. Needs rehab at d/c Attending Surgeon on rounds. Gus East MD - 02/03/2019 12:34 PM EDT Cardiac Surgery Progress Note: ID: [id number] Mr. Gan 3 Days Post-Op s/p CABG x 3. Pmhx pertinent for CAD, HTN, HLD, MR, DMII, cardiomyopathy, psoriasis, former smoker. EF- 45% 24 Hour Events: CARLI overnight, started on amiodarone infusion, now back in SR S: Pain controlled, feeling well O: Temperature Temp: 37.6 ??C (99.7 ??F) Temp: [37.1 ??C (98.8 ??F)-37.6 ??C (99.7 ??F)] Heart Rate Heart Rate: 84 Heart Rate: [84-164] Blood Pressure BP: 117/43 BP: (112-137)/(43-96) Respiratory Rate Resp: 20 Resp: [18-29] SpO2 SpO2: 97 % SpO2: [90 %-98 %] Intake/Output Summary (Last 24 hours) at 02/03/2019 1234 Last data filed at 02/03/2019 1127 Gross per 24 hour Intake 760 ml Output 1085 ml Net -325 ml Admit weight 131.6 kg Current Weight Weight: 132.9 kg (292 lb 15.9 oz) Patient Vitals for the past 168 hrs: Weight 02/03/19 0545 132.9 kg (292 lb 15.9 oz) 02/02/19 0456 130.5 kg (287 lb 11.2 oz) 02/01/19 0600 133.8 kg (294 lb 15.6 oz) 01/31/19 0606 129.2 kg (284 lb 13.4 oz) 01/30/19 0500 130 kg (286 lb 9.6 oz) 01/29/19 0633 129.5 kg (285 lb 7.9 oz) 01/28/19 0640 130.6 kg (287 lb 14.7 oz) Physical exam: General: NAD, sitting up in bed, pleasant NAD Neuro: Grossly non focal Lungs: Normal work of breathing on nasal cannula Heart: RRR, SR on tele Abdomen: NTND Ext: trace blt LE edema Incisions: sternotomy with bandage in place- CDI, RLE wrapped with andree bandage Tubes/Lines/Drains: PIVs LABS: Recent Labs 02/03/19 0227 02/01/19 0022 01/31/19 1855 01/31/19 1800 WBC 18.2* 28.4* 27.7* -- HGB 9.7* 12.3* 12.3* 10.0* 9.9* HCT 29.3* 36.7* 29.9* 28.7* PLATELET 170 273 214 229 PT -- -- 17.2* -- INR -- -- 1.5 -- PTT -- -- 33 -- FIBRINOGEN -- -- 180* 180* Recent Labs 02/03/19 0928 02/03/19 0227 02/02/19 0415 02/01/19 0022 NA -- 135 -- 140 K 4.6 4.3 4.8 Not Perf 4.4 CL -- 100 -- 102 CO2 -- 23 -- Not Perf BUN -- 25* -- 16 CREATININE -- 0.88 -- 1.08 GLUCOSE -- 152 -- 292* CALCIUM -- 7.9* -- 8.0* Assessment/Plan: Mr. Gan 3 Days Post-Op s/p CABG x 3. Pmhx pertinent for CAD, HTN, HLD, MR, DMII, cardiomyopathy, psoriasis, former smoker. Continue Lasix, restart home spironolactone ASA / Plavix Amiodarone infusion for CARLI, transition to PO tomorrow if remains in SR Continue insulin infusion per endocrine Neuro: APAP, oxy prn CV: statin, as above Resp: wean o2 to maintain 02 >92%, IS, OOB GI: ADAT to carb control/cardiac diet, protonix, zofran prn, rbos : voiding, monitor UOP Renal: lasix 20 iv bid, monitor K and replete prn ID: no acute concerns Heme: ASA 81, plavix 75 mg qd for diffuse burden of quinault coronary disease Endo: maintain on insulin gtt, appreciate Endocrinology recommendations Dispo: Floor, full code. Needs rehab at d/c DW Attending Surgeon on rounds. Mary Goff MD - 02/03/2019 11:53 AM EDT Images from the original note were not included. Follow Up Diabetes Consult ID: Connor Gan is a 68 y.o. male with PMH significant for ASCVD, NSTEMI, T2DM, ischemic cardiomyopathy, MR, HTN, HLD and heart failure who was admitted on 01/26/2019 for CABG (POD 3). 24 hour events: -Received 50 units of lantus 02/02 at 21:38 (pre-op was taking 40 units QD), and remained on insulin gtt (currently 7 units/hr, 3.5-7 units/hour since lantus administered) -Prior to lantus insulin gtt was at 8 units/hr -Meal-coverage 1:7 I:C -TDD pre-op ~110 units, very high insulin requirements currently -Methylpred 500 mg administered 15:30 01/31 -Febrile to 100.9 overnight and tachycardic this AM (developed A fib with RVR) -Started on amiodarone infusion with D5 Objective Temp: [37.1 ??C (98.8 ??F)-37.6 ??C (99.7 ??F)] Heart Rate: [84-164] Resp: [18-29] BP: (112-137)/(43-96) SpO2: [92 %-97 %] Heart Rate from SpO2: [85 bpm-156 bpm] Current Regimen from previous note Lantus:50 units qd (first dose 21:38 on 02/02) Lispro 1:7 insulin to carbohydrate ratio Type 2 Insulin gtt Diet Carb control 60// Labs: Ref. Range 01/31/2019 18:00 01/31/2019 18:08 01/31/2019 18:31 01/31/2019 18:55 01/31/2019 18:56 01/31/2019 19:33 01/31/2019 20:38 01/31/2019 22:08 02/01/2019 00:22 02/01/2019 00:22 02/01/2019 00:35 02/01/2019 01:54 02/01/2019 05:58 02/03/2019 02:27 WBC Latest Ref Range: 4.0 - 9.5 x10(3)/mcL 27.7 (H) 28.4 (H) 18.2 (H) Recent Labs 02/03/19 1127 02/03/19 0959 02/03/19 0857 02/03/19 0745 02/03/19 0647 02/03/19 0544 02/03/19 0448 02/03/19 0329 02/03/19 0228 02/03/19 0130 02/03/19 0031 02/02/19 2330 POCGLU 260* 227* 195 177 181 169 185 158 139 143 130 129 Ref. Range 02/03/2019 02:27 Creatinine Latest Ref Range: 0.80 - 1.50 mg/dL 0.88 ASSESSMENT Connor Gan is a 68 y.o. male with PMH significant for ASCVD, NSTEMI, T2DM, ischemic cardiomyopathy, MR, HTN, HLD and heart failure who was admitted on 01/26/2019 for CABG (POD 3). He was given 50 units of lantus 02/02 PM with plan to eventually transition off insulin gtt; however, he is currently requiring 7 units/hr on type 2 insulin gtt. His increase in insulin needs is likely multifactorial (pre-op ~110 units TDD) with post-operative status, fever overnight, new A fib with amiodarone initiated mixed with D5, and methylpred administered day of surgery (half life 18-36 hours). Based on his complex clinical situation with fever overnight, new A fib with RVR, now with amio/D5 gtt, and steroid effect wearing off it is difficult to determine insulin needs in upcoming 24-48 hours and would suggest continuing insulin gtt for now (with no changes in basal and meal-associated) until these factors stabilize. Given high insulin gtt needs it is reasonable to continue lantus 50 units daily to lower gtt requirement. Diabetes management team will continue to evaluate and assist with transition off insulin gtt when transition is felt to be indicated. PLAN Continue lantus 50 units qd Continue meal-associated 1:7 I:C ratio Continue type 2 insulin gtt for correction,would not recommend transitioning off insulin gtt at thistime Diet: Carb controlled Case was discussed with Staff Calculus Tutor, Dr. Nolberto Goff PGY 4 Endocrinology Pager [phone] Associated attestation - Abelardo Arvizu MD - 02/04/2019 2:36 PM EDT I discussed this patient with Dr. Goff. I reviewed the kuo portions of the history and physicalexam, and reviewed pertinent lab data. I was involved in all medical decision making and agree with this plan. ABELARDO ARVIZU MD District Representativemobile unit assistant Section of Endocrinology [facility] Zehra Akhtar RN - 02/02/2019 2:03 PM EDT Images from the original note were not included. Based on discussions with the multi-disciplinary healthcare team, the patient would benefit from inpatient level of care at discharge. ?? I have met with the patient/ambulatory services representative to discuss discharge planning needs. I have provided the [facility], Office of Care Management letter from the J[employer] pertaining to rehab referrals. I have also provided a letter describing our affiliations within the [facility] and educated them about their right to choose where referrals are placed. ?? I reviewed the different levels of rehab including SNF, swing, acute and LTAC with the patient/ambulatory services representative. ?? The patient/ambulatory services representative has been provided a list of facilities within their preferred geographic area. ?? I have requested that the patient/ambulatory services representative provide at least three choices for referral. ?? The patient/ambulatory services representative have requested referrals to: 1. [facility] Address [address] [place] [id number] 2. [facility] [address] [place] [id number] ?? [phone] 3. [facility] ?? PHONE: [phone] FAX: [phone] ?? Expected date of discharge: 02/06/2019 Note routed to Recreation Facility Attendant who will communicate referrals to facilities and provide any required information. Latrice Schwarz DT - 02/02/2019 1:49 PM EDT Nutrition Services - Initial Note Connor Gan : 1950 AGE: 68 y.o. Patient Active Problem List Diagnosis Date Noted ??? Hospital-Atherosclerosis of coronary artery 07/19/2018 ??? Exertional angina 07/19/2018 ??? Hospital-Ischemic cardiomyopathy 07/19/2018 ??? Hospital-Hypertension 07/19/2018 ??? Hospital-Dyslipidemia 07/19/2018 ??? Hospital-Mitral regurgitation 07/19/2018 ??? HLD (hyperlipidemia) 06/16/2017 ??? Acute systolic heart failure 06/16/2017 ??? Hospital-NSTEMI (non-ST elevated myocardial infarction) 06/14/2017 ??? Hospital-Type 2 diabetes mellitus with complication 05/21/2015 ??? Psoriasis 09/07/2012 Reason for Nutrition Intervention: Hospital Day 8 Diet Order: [facility] Appetite: Poor Food allergies: Shellfish Chewing/Swallowing difficulty: None - per pt Ht Readings from Last 3 Encounters: 01/26/19 167.6 cm (5' 6) 07/21/18 166.4 cm (5' 5.5) 10/29/15 167.6 cm (5' 6) Wt Readings from Last 3 Encounters: 02/02/19 130.5 kg (287 lb 11.2 oz) 07/21/18 128.5 kg (283 lb 3.2 oz) 10/29/15 (!) 127 kg (280 lb) Body mass index is 46.44 kg/m??. Assessment: Patient seen for [facility] LOS. Pt informed of current diet order without questions. Pt denies nutrition education at this time. He reported a terrible appetite without difficulty chewing or swallowing. He is tolerating current diet without nausea or vomiting. Pt reported he consumed 100%of breakfast 02/02. At time of visit, pt was eating lunch. Pt reported he has lost wt since admission, pt reported he is unsure of how much and he is unsure of UBW. Commercial Collector provided patient with copy of Guidelines for a Heart Healthy Lifestyle booklet, with emphasis on the last page, Nutrition After Heart Surgery as well as Protein Needs and Protein Sources. Pt declined high protein snacks at this time. Patient had no further questions at this time. Good PO intake encouraged. Encouraged patient to contact Food and Nutrition services with any questions that may arise. Nutrition will continue to monitor and follow up with pt to further assess level of PO intake and appetite. Nutrition Plan: Continue current diet. Recommend Daily Multi Vitamins. Monitor weight. Encourage good po intake. Support and encouragement provided. Nutrition services to follow weekly through hospital course unless consulted in the interim. CRISELDA Medina Edward Rose PA - 02/02/2019 10:56 AM EDT Cardiac Surgery Progress Note: ID: [id number] Mr. Gan 2 Days Post-Op s/p CABG x 3. Pmhx pertinent for CAD, HTN, HLD, MR, DMII, cardiomyopathy, psoriasis, former smoker. EF- 45% 24 Hour Events: - Floor status - all CTs out - on BB and lasix - Plavix started for diffuse CAD - Febrile overnight - did not tolerate CPAP S: Feeling well this AM, slept, didn't tolerate CPAP as it made him claustrophobic. Pain is adequately controlled. . No N/V. No flatus or bm yet. Denies Abd pain, fevers, chills, malaise O: Temperature Temp: 37.6 ??C (99.7 ??F) Temp: [36.7 ??C (98.1 ??F)-38.4 ??C (101.1 ??F)] Heart Rate Heart Rate: 86 Heart Rate: [84-101] Blood Pressure BP: 125/79 BP: (88-129)/(46-79) Respiratory Rate Resp: 20 Resp: [11-27] SpO2 SpO2: 93 % SpO2: [81 %-100 %] Intake/Output Summary (Last 24 hours) at 02/02/2019 1104 Last data filed at 02/02/2019 0900 Gross per 24 hour Intake 1003.18 ml Output 2075 ml Net -1071.82 ml Admit weight 131.6 kg Current Weight Weight: 130.5 kg (287 lb 11.2 oz) Patient Vitals for the past 168 hrs: Weight 02/02/19 0456 130.5 kg (287 lb 11.2 oz) 02/01/19 0600 133.8 kg (294 lb 15.6 oz) 01/31/19 0606 129.2 kg (284 lb 13.4 oz) 01/30/19 0500 130 kg (286 lb 9.6 oz) 01/29/19 0633 129.5 kg (285 lb 7.9 oz) 01/28/19 0640 130.6 kg (287 lb 14.7 oz) 01/27/19 0642 131.4 kg (289 lb 11 oz) 01/26/19 2115 131.6 kg (290 lb 2 oz) Physical exam: General: NAD, sitting up in bed, pleasant NAD Neuro: no focal deficits, A&Ox 3 Lungs: lung sounds present bilaterally, unlabored breathing on NC Heart: RRR, SR to ST on tele, frequent PACs Abdomen: NTND, bs present Ext: trace blt LE edema Incisions: sternotomy with bandage in place- CDI, RLE wrapped with andree bandage Tubes/Lines/Drains: YEIMI, catherine martinez, tpw LABS: Recent Labs 02/01/19 0022 01/31/19 1855 01/31/19 1800 01/31/19 0534 WBC 28.4* 27.7* -- 10.0* HGB 12.3* 12.3* 10.0* 9.9* 13.3* HCT 36.7* 29.9* 28.7* 39.0* PLATELET 273 214 229 190 PT -- 17.2* -- -- INR -- 1.5 -- -- PTT -- 33 -- -- FIBRINOGEN -- 180* 180* -- Recent Labs 02/02/19 0415 02/01/19 0022 01/31/19 0338 NA -- 140 138 K 4.8 Not Perf 4.4 4.6 CL -- 102 103 CO2 -- Not Perf 21* BUN -- 16 17 CREATININE -- 1.08 0.81 GLUCOSE -- 292* -- CALCIUM -- 8.0* 8.9 ABG (Arterial Blood Gas) No results found for: PHART, PO2ART, [id number] Assessment/Plan: Mr. Gan 2 Days Post-Op s/p CABG x 3. Pmhx pertinent for CAD, HTN, HLD, MR, DMII, cardiomyopathy, psoriasis, former smoker. Send cultures for fevers D/c catherine D/c PW BB 12.5 BID Start amio 400 TID for AF ppx Cont Lasix 20 IV BID Plan to restart home jerica tomorrow pending K Cont Plavix 75 mg qd for diffuse quinault coronary disease Endo following, plan to convert from insulin gtt tomorrow Likely needs rehab at d/c Neuro: APAP, oxy prn CV: metop 12.5 bid, statin, amio 400 TID for af ppx Resp: wean o2 to maintain 02 >92%, IS, OOB GI: ADAT to carb control/cardiac diet, protonix, zofran prn, rbos : d/c catherine, monitor UOP Renal: lasix 20 iv bid, monitor K and replete prn ID: no acute concerns Heme: ASA 81, plavix 75 mg qd for diffuse burden of quinault coronary disease Endo: maintain on insulin gtt, appreciate Endocrinology recommendations, transition POD3 off gtt Dispo: [facility], full code, transfer. Needs rehab at d/c DW Attending Surgeon on rounds. Jojo Turner RCP - 02/02/2019 9:58 AM EDT 02/02/19 0725 Oxygen Therapy O2 Device NC O2 Flow Rate (L/min) 3 L/min SpO2 94 % Resp 17 pt on 3L ariana well. Pt has a prn bipap order Pt refused bipap last nite Pt asked if he would wear bipap, pt states no Pt to transfer to floor, bipap pulled Vanessa Sterling RCP - 02/02/2019 1:45 AM EDT Respiratory Therapy NIV Note NIV Settings: NIV Mode: S/T IPAP (cmH20): 12 EPAP (cmH20): 10 Pressure Support (cm H2O): 6 FiO2 (%): 40 % NIV Measurements: Resp: 16 Mve: 11.5 Leak (L/min): 142 L/min Vte: 428 SpO2: 94 % Laboratory: Lab Results Component Value Date/Time PHART 7.43 02/01/2019 05:58 AM [id number] 37 02/01/2019 05:58 AM PO2ART 106 (H) 02/01/2019 05:58 AM [id number] 24.0 02/01/2019 05:58 AM BEART -0.3 02/01/2019 05:58 AM Skin Assessment: NIV Skin Assessment WDL: WDL Bridge of Nose Skin Assessment: Other (comment)(red) Breath Sounds: diminished Assessment: Placed patient on BiPAP for sleep. After about 10 minutes, patient took the mask off andrefused to wear it again. He was placed back on a nasal cannula. VANESSA STERLING RCP Jojo Turner RCP - 02/01/2019 1:44 PM EDT 02/01/19 1106 Oxygen Therapy O2 Device NC O2 Flow Rate (L/min) 3.5 L/min SpO2 96 % Resp 18 pt on above settings ariana well. Pt wore Bipap overnite 05/15/40 for WESLEY Pt has no treatments ordered at this time Will continue to monitor pt 01/31 cxr IMPRESSION 1. The endotracheal tube terminates at the level of the [place]. Recommend retraction by 3 cm. 2. Low lung volumes with bibasilar atelectasis. 3. Small bilateral pleural effusions, larger on the left side. ?? Zehra Akhtar RN - 02/01/2019 9:54 AM EDT The patient/ambulatory services representative has been provided a list of Home Health Agencies/DME vendors which serve their preferred geographic area. A letter describing our affiliations was reviewed with them and theywere educated about their right to choose where referrals are placed. Patient requests referral to [facility]. PHONE: [phone] FAX: [phone] Expected date of discharge: tbd Referral routed to the Recreation Facility Attendant for matching with agency/vendor and to provide any required information. Paradise Brand PA - 02/01/2019 9:05 AM EDT Cardiac Surgery Progress Note: ID: [id number] Mr. Gan 1 Day Post-Op s/p CABG x 3. Pmhx pertinent for CAD, HTN, HLD, MR, DMII, cardiomyopathy, psoriasis, former smoker. EF- 45% 24 Hour Events: - from OR @ 1999 on epi and levo; both since weaned off - extubated @ 0230 to bipap after a couple rounds of bicarb - last ABG on bipap 05/15 on 40% 7.43/37/106/24 S: pt reports he is doing well; he is just very thirsty. Tolerating the bipap well. Pain is adequately controlled. Having some numbness in his sacrum laying in bed and is eager to sit in chair. No N/V.No flatus or bm. O: Temperature Temp: 37.7 ??C (99.9 ??F) Temp: [35.9 ??C (96.6 ??F)-37.7 ??C (99.9 ??F)] Heart Rate Heart Rate: 100 Heart Rate: [65-106] Blood Pressure BP: 124/64 BP: (124)/(64) Respiratory Rate Resp: 11 Resp: [10-28] SpO2 SpO2: 98 % SpO2: [81 %-100 %] Hemodynamics: last numbers at 0530 CI 2.1 PA 25/13 (17) CVP 8 Drips: none I/O last 3 completed shifts: In: 3745.2 [P.O.:250; I.V.:2213.2; Blood:1182; Other:100] Out: 3513 [Urine:2480; Other:530; Blood:503] I/O this shift: In: 30.9 [I.V.:30.9] Out: 185 [Urine:125; Other:60] I- 3.54 L O- 3.5 L Chest tubes (meds and L pleural): 490 cc/12 hrs, 160 cc/4 hrs Net: +30 cc/24 hrs, -3L/admission Admit weight 131.6 kg Current Weight Weight: 133.8 kg (294 lb 15.6 oz) Patient Vitals for the past 168 hrs: Weight 02/01/19 0600 133.8 kg (294 lb 15.6 oz) 01/31/19 0606 129.2 kg (284 lb 13.4 oz) 01/30/19 0500 130 kg (286 lb 9.6 oz) 01/29/19 0633 129.5 kg (285 lb 7.9 oz) 01/28/19 0640 130.6 kg (287 lb 14.7 oz) 01/27/19 0642 131.4 kg (289 lb 11 oz) 01/26/19 2115 131.6 kg (290 lb 2 oz) Physical exam: General: NAD, sitting up in bed, pleasant with bipap on Neuro: no focal deficits, A&Ox 3 Lungs: lung sounds present bilaterally, unlabored breathing on bipap Heart: RRR, SR to ST on tele Abdomen: NTND, bs present Ext: trace blt LE edema Incisions: sternotomy with bandage in place- CDI, RLE wrapped with andree bandage Tubes/Lines/Drains: juan JALLOH, meds and l pleural cts, cerna, tpw LABS: Recent Labs 02/01/19 0022 01/31/19 1855 01/31/19 1800 01/31/19 0534 WBC 28.4* 27.7* -- 10.0* HGB 12.3* 12.3* 10.0* 9.9* 13.3* HCT 36.7* 29.9* 28.7* 39.0* PLATELET 273 214 229 190 PT -- 17.2* -- -- INR -- 1.5 -- -- PTT -- 33 -- -- FIBRINOGEN -- 180* 180* -- Recent Labs 02/01/19 0022 01/31/19 0338 NA 140 138 K Not Perf 4.4 4.6 CL 102 103 CO2 Not Perf 21* BUN 16 17 CREATININE 1.08 0.81 GLUCOSE 292* -- CALCIUM 8.0* 8.9 ABG (Arterial Blood Gas) Lab Results Component Value Date pH Art 7.43 02/01/2019 pO2 Art 106 (H) 02/01/2019 pCO2 Art 37 02/01/2019 Assessment/Plan: Mr. Gan 1 Day Post-Op s/p CABG x 3. Pmhx pertinent for CAD, HTN, HLD, MR, DMII,cardiomyopathy, psoriasis, former smoker. D/C meds, Keep L pleural BB 12.5 bid- increase as able with BP Lasix 20 IV BID Plavix 75 mg qd for diffuse quinault coronary disease Endocrinology consult Intermittent usage of Bipap Neuro: APAP, oxy prn CV: initiate metop 12.5 bid, d/c meds chest tubes, keep L pleural Resp: 4L NC, wean o2 to maintain 02 >92%, IS, OOB, bipap throughout the day GI: ADAT to carb control/cardiac diet, protonix, zofran prn, rbos : cerna, monitor UOP Renal: lasix 20 iv bid, monitor K and replete prn ID: no acute concerns Heme: ASA 81, plavix 75 mg qd for diffuse burden of quinault coronary disease Endo: maintain on insulin gtt, appreciate Endocrinology recommendations Dispo: CVCC, full code DW Attending Surgeon on rounds. Signed: DO [facility] Section of Cardiac Surgery Date: 02/01/2019 Vanessa Sterling, [facility] - 02/01/2019 5:39 AM EDT Respiratory Therapy NIV Note NIV Settings: NIV Mode: S/T IPAP (cmH20): (S) 10 EPAP (cmH20): 8 Pressure Support (cm H2O): 2 FiO2 (%): 40 % NIV Measurements: Resp: 17 Mve: 21.1 Leak (L/min): 126 L/min Vte: 1213 SpO2: 99 % Laboratory: Lab Results Component Value Date/Time PHART 7.30 (L) 02/01/2019 12:35 AM [id number] 33 (L) 02/01/2019 12:35 AM PO2ART 101 02/01/2019 12:35 AM [id number] 15.9 (L) 02/01/2019 12:35 AM BEART -10.6 (L) 02/01/2019 12:35 AM Skin Assessment: NIV Skin Assessment WDL: WDL Breath Sounds: clear/diminished Assessment: Received patient intubated on ventilator. He was weaned and extubated without difficultyto BiPAP. He was started on 15/10 and 50%, then weaned to above settings. Plan: We will continue to wean BiPAP as tolerated. VANESSA STERLING RCP Kelly Oliveira Michael, CONTRACT MAIL CARRIER - 01/31/2019 12:42 PM EDT Images from the original note were not included. Inpatient Cardiology Progress Note Patient Name: Connor Gan Service: [employer] / PA Responsible Attending: Lizz Cabrera MD Reason for continued hospitalization: Evaluation and management of unstable angina in a patient with known multivessel disease CT surgery planned today Active Problems: Active Hospital Problems Diagnosis ??? Atherosclerosis of coronary artery Overview: Had Catheterization in 2005 at [facility] -- showed two vessel disease that was not intervened upon (LAD and Circ). [facility] 06/15 showed MVD, not candidate for CABG ??? Ischemic cardiomyopathy ??? Hypertension ??? Dyslipidemia ??? Mitral regurgitation ??? NSTEMI (non-ST elevated myocardial infarction) ??? Type 2 diabetes mellitus with complication Dxd 1985 Resolved Hospital Problems No resolved problems to display. Interval History: Patient is feeling well with no chest pain or shortness of breath. He is comfortable with his decision to proceed with cardiac surgery today. Review of Systems: Review of Systems Constitutional: Surgery today! Respiratory: Negative for shortness of breath. Cardiovascular: Negative for chest pain. Musculoskeletal: My left foot feels numb when I don't get to use it (this happens at home). All other systems reviewed and are negative. Telemetry: HR: 55-85 sinus bradycardia, sinus rhythm with rare PACs Meds: Scheduled Meds: ??? aspirin 81 mg Oral Daily ??? atorvastatin 80 mg Oral QPM ??? gabapentin 300 mg Oral TID ??? isosorbide mononitrate 120 mg Oral Daily ??? magnesium oxide 400 mg Oral BID ??? metoprolol succinate 50 mg Oral Daily ??? spironolactone 50 mg Oral Daily ??? sodium chloride 0.9 % (flush) 5 mL Intravenous BID ??? sodium chloride 0.9 % (flush) 5 mL Intravenous BID ? ? insulin lispro 3-12 Units Subcutaneous 4 Times Daily AC & HS ??? insulin lispro 20 Units Subcutaneous TID WC ??? insulin glargine 20 Units Subcutaneous 2 times per day ??? famotidine 20 mg Oral Daily Continuous Infusions: PRN Meds:midazolam (PF), atropine, HYDROmorphone, acetaminophen, nitroGLYcerin, traZODone, Glucose 40% oral gel OR dextrose OR glucagon (human recombinant), sodium chloride 0.9 % (flush), lidocaine, sodium chloride 0.9 % (flush) Physical Exam: Vital Signs: Last value Range last 24 hrs Temperature Temp: 36.9 ??C (98.4 ??F) Temp: [36.6 ??C (97.9 ??F)-37.2 ??C (99 ??F)] Heart Rate Heart Rate: 65 Heart Rate: [57-73] Blood Pressure BP: 124/64 BP: (100-140)/(54-77) Respiratory Rate Resp: 17 Resp: [17-18] SpO2 SpO2: 98 % SpO2: [95 %-98 %] Patient Vitals for the past 168 hrs: Weight 01/31/19 0606 129.2 kg (284 lb 13.4 oz) 01/30/19 0500 130 kg (286 lb 9.6 oz) 01/29/19 0633 129.5 kg (285 lb 7.9 oz) 01/28/19 0640 130.6 kg (287 lb 14.7 oz) 01/27/19 0642 131.4 kg (289 lb 11 oz) 01/26/19 2115 131.6 kg (290 lb 2 oz) Intake/Output Summary (Last 24 hours) at 01/31/2019 1242 Last data filed at 01/31/2019 1200 Gross per 24 hour Intake 400 ml Output 1200 ml Net -800 ml Physical Exam Constitutional: He is oriented to person, place, and time. He appears well- developed and well-nourished. No distress. Obese male HENT: Head: Normocephalic and atraumatic. Eyes: Right eye exhibits no discharge. Left eye exhibits no discharge. Neck: Normal range of motion. Neck supple. No JVD present. Cardiovascular: Normal rate, regular rhythm and normal heart sounds. No murmur heard. Pulmonary/Chest: Effort normal and breath sounds normal. No respiratory distress. He has no wheezes.He has no rales. Abdominal: Soft. Large protuberant abdomen. Musculoskeletal: Normal range of motion. He exhibits no edema. Neurological: He is alert and oriented to person, place, and time. Skin: Skin is warm and dry. He is not diaphoretic. Psychiatric: He has a normal mood and affect. His behavior is normal. Vitals reviewed. Lab Comments: Recent Labs 01/31/19 0534 01/29/19 0443 01/28/19 1335 WBC 10.0* 10.3* 11.6* HGB 13.3* 13.2* 14.1 HCT 39.0* 38.1* 40.4* PLATELET 190 201 279 Recent Labs 01/26/19 2221 INR 1.1 Recent Labs 01/31/19 0338 01/29/19 0443 01/28/19 1335 NA 138 138 140 K 4.6 4.6 5.0 CL 103 105 104 CO2 21* 23 22 BUN 17 18 14 CREATININE 0.81 0.88 0.97 Recent Labs 01/26/19 2221 AST 24 ALT 32 ALKPHOS 47 BILITOT 0.5 BILIDIR 0.1 Recent Labs 01/31/19 0338 01/29/19 0443 01/28/19 1335 01/26/19 2221 CALCIUM 8.9 8.7 9.0 9.4 MAGNESIUM -- -- -- 0.71 Recent Labs 01/27/19 0408 01/26/19 2221 CK -- 133 TROPONINT <0.01 0.01* Pertinent Radiographic/Diagnostic Results: Cardiac cath: 01/27/19 Conclusions: * Three vessel coronary artery disease (LAD, LCX and RCA) * Recommend shared decision making process to evaluate role of medical therapy, PCI or CABG. Echo: 01/27/19 SUMMARY: ?? 1. Technically limited with suboptimal visualization of cardiac structures. 2. Global left ventricular systolic function is mildly reduced. Ejection fraction is estimated to be45%. There are left ventricular segmental wall motion abnormalities present, as shown in the diagrambelow. There is better wall motion in the basilar anterior and lateral lauren. 3. The right ventricle is not well visualized. The right ventricle is normal in size. 4. There is mild septal hypertrophy of the left ventricle. There is no evidence of LVOT obstruction.Other chamber and aortic dimensions are normal. 5. No hemodynamic significant valvular disease. The aortic valve is probably tricuspid and valve leaflets are mildly thickened without stenosis. The mitral valve leaflets are mildly thickened. The papillary muscle heads appear calcified. There is mitral annular calcification. There is trace mitral regurgitation present with no mitral stenosis. 6. There is no pericardial effusion. Pulmonary artery hypertension could not be assessed due to inadequate tricuspid regurgitation jet. ?? Vein mappin01/29/19 Interpretation: Right: ??Patent great saphenous vein with no evidence of thrombus. ?? Left: ??Patent great saphenous vein with no evidence of thrombus. ?? ECG: HR [address]/T wave abnormalities, unchanged from prior Assessment: Connor Gan is a 68 y.o. male with h/o ASCVD (3VD managed medically, [facility]), DM-2 (insulin dependent), HTN, HLD, ICM (LVEF 45% 04/2018) improved from 25% in 2017 and psoriasis transferredfrom [facility] for crescendo angina with elevated troponins for further evaluation. On arrival to [facility] ERhe denied having chest pain, EKG without acute abnormality but his troponins were elevated. 2/2 classic symptoms of angina and troponin elevation, he was loaded with Plavix, started on heparin and transferred to [facility] for further evaluation. Cardiac catheterization found three-vessel disease. Consult to CT surgery done and planned for today. Plan: NSTEMI Known 3VD and on medical management Continue aspirin, metoprolol xl, atorvastatin, Imdur, lisinopril Stopped Plavix 75 CT surgery consult appreciated Pulmonary consult given hx of smoking, shortness of breath without angina and likely WESLEY Room air ABG: pH 7.429, pCO2 33.6, pO2 81.8, HCO3 21.8 CXR and spirometry ordered ?? ICM LVEF of 45% (2018) improved from 25% from (2017). He is not in decompensated heart failure Echocardiogram completed, EF 45% with WMA Continue Aldactone, lisinopril and metoprolol xl ?? DM-2 He is dependent on insulin A1c 7.2 He has been taking his medications as advised Will continue on Lantus along with Humalog Hyperlipidemia Lipid Panel TC 94, HDL 37, LDLd 39, Trig 277 Atorvastatin 80 mg daily ?? Sleep apnea and Obesity Never started using CPAP, as he never had follow-up from his [facility] sleep study done in 2001 Advised about follow up with PMD for out patient CPAP machine and to lose weight Pulmonary consult appreciated ?? Code status Full code He wants his ex as next of kin for medical decision making, next of kin Ex Shraddha Esteves , HCPOA completed Discussed with MD Kelly Tesfaye, OLIVER 01/31/2019 Pan Castro RN - 01/31/2019 4:06 AM EDT OUTCOME EVALUATION NOTE: OUTCOME SUMMARY: Uneventful night, slept in between care. No pain or sob reported. VS WNL, see flowsheet. NSR on tele, see full report. Voids with no issue. 01/31/19 0359 01/31/19 0400 01/31/19 0401 Adult Vital Signs Temp 36.7 ??C (98.1 ??F) -- -- Temp src Oral -- -- Heart Rate from SpO2 68 bpm 64 bpm 65 bpm Heart Rate 69 65 65 Heart Rate Source Monitor -- Monitor BP 140/63 -- 135/77 MAP (NBP) 84 mmHg -- 95 mmHg BP Method Automatic -- Automatic BP Location (NBP) Left arm -- Right arm Patient Position Sitting -- Sitting Cardiac Rhythm NSR -- NSR Resp 17 -- 17 SpO2 98 % 98 % 98 % Visual Checks Awake;In bed -- Awake;In bed Oxygen Therapy O2 Device RA -- RA PLAN MOVING FORWARD: NPO - CABG 2nd case. INDIVIDUALIZED FALL PREVENTION INTERVENTIONS: Patient-specific fall risk factors per assessment: [current deficits]: Tele wires Assistance [level of assistance required for transfers and ambulation]: Indep Supervision [direct monitoring required during toileting and ADLs]: Indep Surveillance [continuous indirect monitoring]: Tele, pulse ox, purposeful rounding Patient-specific fall prevention interventions for sensory deficits provided, if applicable: CPG GOAL OUTCOME EVALUATION: ongoing Justino Goncalves RCP - 01/30/2019 3:49 PM EDT PFT contraindicated at this time secondary to(NSTEMI) per [facility]. CT within one month. Kelly Oliveira APRN - 01/30/2019 3:40 PM EDT Images from the original note were not included. Inpatient Cardiology Progress Note Patient Name: Connor Gan Service: [employer] / PA Responsible Attending: Lizz Cabrera MD Reason for continued hospitalization: Evaluation and management of unstable angina in a patient with known multivessel disease CT surgery planned for 2nd case tomorrow Vein mapping and pulmonary consult appreciated CXR and spirometry needed Active Problems: Active Hospital Problems Diagnosis ??? Atherosclerosis of coronary artery Overview: Had Catheterization in 2005 at [facility] -- showed two vessel disease that was not intervened upon (LAD and Circ). [facility] 06/15 showed MVD, not candidate for CABG ??? Ischemic cardiomyopathy ??? Hypertension ??? Dyslipidemia ??? Mitral regurgitation ??? NSTEMI (non-ST elevated myocardial infarction) ??? Type 2 diabetes mellitus with complication Dxd 1984 Resolved Hospital Problems No resolved problems to display. Interval History: Patient is feeling well with no chest pain or shortness of breath. He is comfortable with his decision to proceed with cardiac surgery later this week. Out of bed ambulating without anginal symptoms. Review of Systems: Review of Systems Constitutional: I got a shower and feel so much better. Respiratory: Negative for shortness of breath. Cardiovascular: Negative for chest pain. Musculoskeletal: Right radial site feels well. Psychiatric/Behavioral: Some financial concerns given that his is on medicare. All other systems reviewed and are negative. Telemetry: HR: 55-85 sinus bradycardia, sinus rhythm with rare PACs Meds: Scheduled Meds: ??? aspirin 81 mg Oral Daily ??? atorvastatin 80 mg Oral QPM ??? gabapentin 300 mg Oral TID ??? isosorbide mononitrate 120 mg Oral Daily ??? lisinopril 10 mg Oral Daily ??? magnesium oxide 400 mg Oral BID ??? metoprolol succinate 50 mg Oral Daily ??? spironolactone 50 mg Oral Daily ??? sodium chloride 0.9 % (flush) 5 mL Intravenous BID ??? sodium chloride 0.9 % (flush) 5 mL Intravenous BID ? ? insulin lispro 3-12 Units Subcutaneous 4 Times Daily AC & HS ??? insulin lispro 20 Units Subcutaneous TID WC ??? insulin glargine 20 Units Subcutaneous 2 times per day ??? famotidine 20 mg Oral Daily Continuous Infusions: PRN Meds:midazolam (PF), atropine, HYDROmorphone, acetaminophen, nitroGLYcerin, traZODone, Glucose 40% oral gel OR dextrose OR glucagon (human recombinant), sodium chloride 0.9 % (flush), lidocaine, sodium chloride 0.9 % (flush) Physical Exam: Vital Signs: Last value Range last 24 hrs Temperature Temp: 36.8 ??C (98.2 ??F) Temp: [36.6 ??C (97.9 ??F)-36.9 ??C (98.4 ??F)] Heart Rate Heart Rate: 78 Heart Rate: [69-78] Blood Pressure BP: 122/69 BP: (103-136)/(57-77) Respiratory Rate Resp: 16 Resp: [16-17] SpO2 SpO2: 95 % SpO2: [93 %-97 %] Patient Vitals for the past 168 hrs: Weight 01/30/19 0500 130 kg (286 lb 9.6 oz) 01/29/19 0633 129.5 kg (285 lb 7.9 oz) 01/28/19 0640 130.6 kg (287 lb 14.7 oz) 01/27/19 0642 131.4 kg (289 lb 11 oz) 01/26/19 2115 131.6 kg (290 lb 2 oz) Intake/Output Summary (Last 24 hours) at 01/30/2019 1540 Last data filed at 01/30/2019 1256 Gross per 24 hour Intake 1076 ml Output 1600 ml Net -524 ml Physical Exam Constitutional: He is oriented to person, place, and time. He appears well- developed and well-nourished. No distress. Obese male HENT: Head: Normocephalic and atraumatic. Eyes: Right eye exhibits no discharge. Left eye exhibits no discharge. Neck: Normal range of motion. Neck supple. No JVD present. Cardiovascular: Normal rate, regular rhythm and normal heart sounds. No murmur heard. Pulmonary/Chest: Effort normal and breath sounds normal. No respiratory distress. He has no wheezes.He has no rales. Abdominal: Soft. Large protuberant abdomen. Musculoskeletal: Normal range of motion. He exhibits no edema. Neurological: He is alert and oriented to person, place, and time. Skin: Skin is warm and dry. He is not diaphoretic. Psychiatric: He has a normal mood and affect. His behavior is normal. Vitals reviewed. Lab Comments: Recent Labs 01/29/193 01/28/19 1335 01/27/19 0408 WBC 10.3* 11.6* 11.0* HGB 13.2* 14.1 12.6* HCT 38.1* 40.4* 37.9* PLATELET 201 279 182 Recent Labs 01/26/19 2221 INR 1.1 Recent Labs 01/29/19 0443 01/28/19 1335 01/27/19 0408 NA 138 140 137 K 4.6 5.0 4.1 CL 105 104 103 CO2 23 22 21* BUN 18 14 21* CREATININE 0.88 0.97 0.84 Recent Labs 01/26/19 2221 AST 24 ALT 32 ALKPHOS 47 BILITOT 0.5 BILIDIR 0.1 Recent Labs 01/29/19 0443 01/28/19 1335 01/26/19 2221 CALCIUM 8.7 9.0 9.4 MAGNESIUM -- -- 0.71 Recent Labs 01/27/19 0408 01/26/19 2221 CK -- 133 TROPONINT <0.01 0.01* Pertinent Radiographic/Diagnostic Results: Cardiac cath: 01/27/19 Conclusions: * Three vessel coronary artery disease (LAD, LCX and RCA) * Recommend shared decision making process to evaluate role of medical therapy, PCI or CABG. Echo: 01/27/19 SUMMARY: ?? 1. Technically limited with suboptimal visualization of cardiac structures. 2. Global left ventricular systolic function is mildly reduced. Ejection fraction is estimated to be45%. There are left ventricular segmental wall motion abnormalities present, as shown in the diagrambelow. There is better wall motion in the basilar anterior and lateral lauren. 3. The right ventricle is not well visualized. The right ventricle is normal in size. 4. There is mild septal hypertrophy of the left ventricle. There is no evidence of LVOT obstruction.Other chamber and aortic dimensions are normal. 5. No hemodynamic significant valvular disease. The aortic valve is probably tricuspid and valve leaflets are mildly thickened without stenosis. The mitral valve leaflets are mildly thickened. The papillary muscle heads appear calcified. There is mitral annular calcification. There is trace mitral regurgitation present with no mitral stenosis. 6. There is no pericardial effusion. Pulmonary artery hypertension could not be assessed due to inadequate tricuspid regurgitation jet. ?? Vein mappin01/29/19 Interpretation: Right: ??Patent great saphenous vein with no evidence of thrombus. ?? Left: ??Patent great saphenous vein with no evidence of thrombus. ?? Assessment: Connor Gan is a 68 y.o. male with h/o ASCVD (3VD managed medically, [facility]), DM-2 (insulin dependent), HTN, HLD, ICM (LVEF 45% 04/2018) improved from 25% in 2017 and psoriasis transferredfrom [facility] for crescendo angina with elevated troponins for further evaluation. On arrival to [facility] ERyogi denied having chest pain, EKG without acute abnormality but his troponins were elevated. 2/2 classic symptoms of angina and troponin elevation, he was loaded with Plavix, started on heparin and transferred to [facility] for further evaluation. Cardiac catheterization found three-vessel disease. Consult to CT surgery done and planned for tomorrow. Pulmonary consult appreciated. Room air ABG also obtained. Will stop Plavix and anticipation of bypass later this week. Plan: NSTEMI Known 3VD and on medical management Continue aspirin, metoprolol xl, atorvastatin, Imdur, lisinopril Stopped Plavix 75 [address] surgery consult appreciated Pulmonary consult given hx of smoking, shortness of breath without angina and likely WESLEY Room air ABG: pH 7.429, pCO2 33.6, pO2 81.8, HCO3 21.8 CXR and spirometry ordered ?? ICM LVEF of 45% (2018) improved from 25% from (2017). He is not in decompensated heart failure Echocardiogram completed, EF 45% with WMA Continue Aldactone, lisinopril and metoprolol xl ?? DM-2 He is dependent on insulin A1c 7.2 He has been taking his medications as advised Will continue on Lantus along with Humalog Hyperlipidemia Lipid Panel TC 94, HDL 37, LDLd 39, Trig 277 Atorvastatin 80 mg daily ?? Sleep apnea and Obesity Never started using CPAP, as he never had follow-up from his [facility] sleep study done in 2001 Advised about follow up with PMD for out patient CPAP machine and to lose weight Pulmonary consult appreciated ?? Code status Full code He wants his ex as next of kin for medical decision making, next of kin Ex Shraddha Esteves , HCPOA completed Discussed with MD Kelly Tesfaye, CONTRACT MAIL CARRIER 01/30/2019 Associated attestation - Lizz Cabrera MD - 01/30/2019 6:02 PM EDT Images from the original note were not included. ATTENDING ATTESTATION: I met with the patient today and independently confirmed the history, physical exam, and reviewed the available test results. I have discussed the plan with the patient and have personally edited the document to reflect the plan of care. In summary, Dylan is doing well. He will be going to surgery in AM. Meds and hemodynamics are good. Please see Kelly Oliveira's note for full details. Lizz Cabrera MD [facility] Interventional Cardiology Pager [phone] Marine Teran MD - 01/30/2019 12:16 PM EDT Images from the original note were not included. INPATIENT PULMONOLOGY FOLLOW-UP NOTE SECTION OF PULMONARY/CRITICAL CARE MEDICINE Patient Name: Connor Gan : 1950 Medical Record: [id number] Date of Service: 01/30/2019 Hospital Day # Hospital Day: 5 I have seen and examined the patient, providing kuo components as outlined below. I have reviewed the resident note by Dr. Mullen below; my evaluation of the patient is below and includes any correctionsor additions: Briefly, no acute changes overnight. CXR and spirometry pending. Please consult pulmonary medicine if any trouble post op in weaning off the vent. Marine Teran MD,MPH Interventional Pulmonary Pulmonary and Critical Care Medicine 3:32 PM 01/30/2019 Subjective: No interval complaints. States he walked to the garden and back to the floor yesterday with only some shortness of breath on returning, he did not require O2 during recovery. He is yet to receive his CXR and Spirometry. Review of Systems: Pertinent findings from 12 point ROS listed above in subjective. Objective: Physical Exam: BP 111/61 (BP Location (NBP): Left arm, Patient Position: Sitting) Pulse 69 Temp 36.9 ??C (98.4 ??F) (Oral) Resp 16 Ht 167.6 cm (5' 6) Wt 130 kg (286 lb 9.6 oz) SpO2 97% BMI 46.26 kg/m?? Temp (24hrs), Av.8 ??C (98.2 ??F), Min:36.6 ??C (97.9 ??F), Max:36.9 ??C (98.4 ??F) Intake/Output Summary (Last 24 hours) at 01/30/2019 1217 Last data filed at 01/30/2019 0945 Gross per 24 hour Intake 1246 ml Output 1775 ml Net -529 ml General: This is a 68 y.o. male, NAD, obese HEENT: Moist mucous membranes Neck: Supple, Mallampati 3 Lymphatics: No obvious cervical lymphadenopathy Cardiovascular: Nl s1/s2, rrr, no murmurs, no gallops Respiratory: Distant breath sounds, no adventitious LS GI: soft, nt, distended, +bs Musculoskeletal: Normal bulk and tone Extremities: trace LE edema noted, no clubbing Integument: Diffuse psoriatic skin rash Neurologic: Alert and oriented, moves all extremities appropriately, no obvious focal deficits Psychologic: Normal mood and affect. Allergies: Methotrexate; Shellfish containing products; Cis free text allergy; and Shellfish derived Medications: Scheduled Meds: ??? aspirin 81 mg Oral Daily ??? atorvastatin 80 mg Oral QPM ??? gabapentin 300 mg Oral TID ??? isosorbide mononitrate 120 mg Oral Daily ??? lisinopril 10 mg Oral Daily ??? magnesium oxide 400 mg Oral BID ??? metoprolol succinate 50 mg Oral Daily ??? spironolactone 50 mg Oral Daily ??? sodium chloride 0.9 % (flush) 5 mL Intravenous BID ??? sodium chloride 0.9 % (flush) 5 mL Intravenous BID ? ? insulin lispro 3-12 Units Subcutaneous 4 Times Daily AC & HS ??? insulin lispro 20 Units Subcutaneous TID WC ??? insulin glargine 20 Units Subcutaneous 2 times per day ??? famotidine 20 mg Oral Daily Continuous Infusions: PRN Meds: midazolam (PF), atropine, HYDROmorphone, acetaminophen, nitroGLYcerin, traZODone, Glucose 40% oral gel OR dextrose OR glucagon (human recombinant), sodium chloride 0.9 % (flush), lidocaine, sodium chloride 0.9 % (flush) Labs: Lab Results Component Value Date WBC 10.3 (H) 01/29/2019 RBC 4.33 (L) 01/29/2019 HGB 13.2 (L) 01/29/2019 HCT 38.1 (L) 01/29/2019 MCV 88.0 01/29/2019 MCH 30.5 01/29/2019 MCHC 34.6 01/29/2019 PLATELET 201 01/29/2019 RDWCV 13.2 01/29/2019 LFT's No results found for: ALKPHOS, AST, ALBUMIN, BILIDIR, BILITOT, ALT, PROT LFT's No results found for: ALKPHOS, AST, ALBUMIN, BILIDIR, BILITOT, ALT, PROT Coags No results found for: INR, PT, PTT No results for input(s): GLUCOSE in the last 168 hours. Diagnostics: No interval diagnostics to review. Assessment: Connor Gan is a 68 y.o. male admitted for crescendo angina with dyspnea on exertion, found to have triple vessel disease on cardiac catheterization. He is scheduled to undergo a CABG procedure this week and Pulmonary is consulted for evaluation of his dyspnea with exertion and pre-operative riskstratification. Recommendations: Preoperative risk stratification Would obtain CXR (PA and Lateral), bedside spirometry and 6 minute walk test prior to surgery to evaluate for baseline anatomic abnormalities, obstructive defect and dyspnea with exertion respectively. Anthony score for risk of post-operative respiratory failure is 6.44% (Cardiac disease, Severe systemic disease and partially dependent functional status) Anticipate that patient may have a difficult airway given his Mallampati score, facial structure (russell likely to cause poor mask seal) and 4 pillow orthopnea. He may be a good candidate for extubationto BiPAP. Intra-operative euvolemia to dry status is preferred, avoid aggressive fluid resuscitation due to high risk of pulmonary edema. Recommend intra-operative EM with PA pressure measurements (difficult to assess via TTE for this patient) ?? Obstructive Sleep Apnea STOP BANG score 7; high risk for WESLEY; Airway Mallampati 3 Recommend full outpatient PFTs and repeat polysomnography. ?? Thank you for this consult, Pulmonary will sign off. Please page if you have questions regarding thespirometry/CXR results. Lynnette Khan MD, 01/30/2019, 12:17 PM Resident, Pulmonary Medicine Pager: [phone] Sukh Patel - 01/29/2019 3:17 PM EDT Referral from Daysi Vega to meet with patient to assess financial concerns. Met with patient and today in room. Patient was looking to give insurance information to patient registration. Made copies of patient's insurance cards ([employer], [employer], Medicare, [facility] FA) and gave copy to Jennifer's patient registration to upload into patient's account. Kelly Oliveira APRN - 01/29/2019 11:34 AM EDT Images from the original note were not included. Inpatient Cardiology Progress Note Patient Name: Connor Gan Service: [employer] / PA Responsible Attending: Lizz Cabrera MD Reason for continued hospitalization: Evaluation and management of unstable angina in a patient with known multivessel disease CT surgery consult in progress Vein mapping and pulmonary consult today Active Problems: Active Hospital Problems Diagnosis ??? Atherosclerosis of coronary artery Overview: Had Catheterization in 2005 at [facility] -- showed two vessel disease that was not intervened upon (LAD and Circ). [facility] 06/15 showed MVD, not candidate for CABG ??? Ischemic cardiomyopathy ??? Hypertension ??? Dyslipidemia ??? Mitral regurgitation ??? NSTEMI (non-ST elevated myocardial infarction) ??? Type 2 diabetes mellitus with complication Dxd 1984 Resolved Hospital Problems No resolved problems to display. Interval History: Currently no chest pain or shortness of breath. Eager to meet with care managementas he has concerns about financial impact of his hospital stay. Ex- José Luis will be in later and he would like to have her meet Dr. Corona. Review of Systems: Review of Systems Respiratory: Negative for shortness of breath. Cardiovascular: Negative for chest pain. Musculoskeletal: Right radial site feels well. Psychiatric/Behavioral: Some financial concerns given that his is on medicare. All other systems reviewed and are negative. Telemetry: HR: 55-85 PVCs and first-degree AV block Meds: Scheduled Meds: ??? aspirin 81 mg Oral Daily ??? atorvastatin 80 mg Oral QPM ??? gabapentin 300 mg Oral TID ??? isosorbide mononitrate 120 mg Oral Daily ??? lisinopril 10 mg Oral Daily ??? magnesium oxide 400 mg Oral BID ??? metoprolol succinate 50 mg Oral Daily ??? spironolactone 50 mg Oral Daily ??? sodium chloride 0.9 % (flush) 5 mL Intravenous BID ??? sodium chloride 0.9 % (flush) 5 mL Intravenous BID ? ? insulin lispro 3-12 Units Subcutaneous 4 Times Daily AC & HS ??? insulin lispro 20 Units Subcutaneous TID WC ??? insulin glargine 20 Units Subcutaneous 2 times per day ??? famotidine 20 mg Oral Daily Continuous Infusions: PRN Meds:midazolam (PF), atropine, HYDROmorphone, acetaminophen, nitroGLYcerin, traZODone, Glucose 40% oral gel OR dextrose OR glucagon (human recombinant), sodium chloride 0.9 % (flush), lidocaine, sodium chloride 0.9 % (flush) Physical Exam: Vital Signs: Last value Range last 24 hrs Temperature Temp: 37 ??C (98.6 ??F) Temp: [36.6 ??C (97.9 ??F)-37 ??C (98.6 ??F)] Heart Rate Heart Rate: 74 Heart Rate: [70-81] Blood Pressure BP: 138/74 BP: (90-138)/(55-80) Respiratory Rate Resp: 16 Resp: [16-18] SpO2 SpO2: 96 % SpO2: [96 %-98 %] Patient Vitals for the past 168 hrs: Weight 01/29/19 0633 129.5 kg (285 lb 7.9 oz) 01/28/19 0640 130.6 kg (287 lb 14.7 oz) 01/27/19 0642 131.4 kg (289 lb 11 oz) 01/26/19 2115 131.6 kg (290 lb 2 oz) Intake/Output Summary (Last 24 hours) at 01/29/2019 1134 Last data filed at 01/29/2019 1005 Gross per 24 hour Intake 1350 ml Output 2200 ml Net -850 ml Physical Exam Constitutional: He is oriented to person, place, and time. He appears well- developed and well-nourished. No distress. Obese male HENT: Head: Normocephalic and atraumatic. Eyes: Right eye exhibits no discharge. Left eye exhibits no discharge. Neck: Normal range of motion. Neck supple. No JVD present. Cardiovascular: Normal rate, regular rhythm and normal heart sounds. No murmur heard. Pulmonary/Chest: Effort normal and breath sounds normal. No respiratory distress. He has no wheezes.He has no rales. Abdominal: Soft. Large protuberant abdomen. Musculoskeletal: Normal range of motion. He exhibits no edema. Neurological: He is alert and oriented to person, place, and time. Skin: Skin is warm and dry. He is not diaphoretic. Psychiatric: He has a normal mood and affect. His behavior is normal. Vitals reviewed. Lab Comments: Recent Labs 01/29/193 01/28/19 1335 01/27/19 0408 WBC 10.3* 11.6* 11.0* HGB 13.2* 14.1 12.6* HCT 38.1* 40.4* 37.9* PLATELET 201 279 182 Recent Labs 01/26/19 2221 INR 1.1 Recent Labs 01/29/19 0443 01/28/19 1335 01/27/19 0408 NA 138 140 137 K 4.6 5.0 4.1 CL 105 104 103 CO2 23 22 21* BUN 18 14 21* CREATININE 0.88 0.97 0.84 Recent Labs 01/26/19 2221 AST 24 ALT 32 ALKPHOS 47 BILITOT 0.5 BILIDIR 0.1 Recent Labs 01/29/19 0443 01/28/19 1335 01/26/19 2221 CALCIUM 8.7 9.0 9.4 MAGNESIUM -- -- 0.71 Recent Labs 01/27/19 0408 01/26/19 2221 CK -- 133 TROPONINT <0.01 0.01* Pertinent Radiographic/Diagnostic Results: Cardiac cath: 01/27/19 Conclusions: * Three vessel coronary artery disease (LAD, LCX and RCA) * Recommend shared decision making process to evaluate role of medical therapy, PCI or CABG. Echo: 01/27/19 SUMMARY: ?? 1. Technically limited with suboptimal visualization of cardiac structures. 2. Global left ventricular systolic function is mildly reduced. Ejection fraction is estimated to be 45%. There are left ventricular segmental wall motion abnormalities present, as shown in the diagram below. There is better wall motion in the basilar anterior and lateral lauren. 3. The right ventricle is not well visualized. The right ventricle is normal in size. 4. There is mild septal hypertrophy of the left ventricle. There is no evidence of LVOT obstruction. Other chamber and aortic dimensions are normal. 5. No hemodynamic significant valvular disease. The aortic valve is probably tricuspid and valve leaflets are mildly thickened without stenosis. The mitral valve leaflets are mildly thickened. The papillary muscle heads appear calcified. There is mitral annular calcification. There is trace mitral regurgitation present with no mitral stenosis. 6. There is no pericardial effusion. Pulmonary artery hypertension could not be assessed due to inadequate tricuspid regurgitation jet. ?? Vein mappin01/29/19 Interpretation: Right: ??Patent great saphenous vein with no evidence of thrombus. ?? Left: ??Patent great saphenous vein with no evidence of thrombus. ?? Assessment: Connor Gan is a 68 y.o. male with h/o ASCVD (3VD managed medically, [facility]), DM-2 (insulin dependent), HTN, HLD, ICM (LVEF 45% 04/2018) improved from 25% in 2017 and psoriasis transferredfrom [facility] for crescendo angina with elevated troponins for further evaluation. On arrival to [facility] ERhe denied having chest pain, EKG without acute abnormality but his troponins were elevated. 2/2 classic symptoms of angina and troponin elevation, he was loaded with Plavix, started on heparin and transferred to [facility] for further evaluation. Cardiac catheterization found three-vessel disease. Consult to CT surgery in progress, likely will be done later this week. Plan for pulmonary consult as well as bilateral vein mapping today. Room air ABG also obtained. Will stop Plavix and anticipation of bypasslater this week. Plan: NSTEMI Known 3VD and on medical management Continue aspirin, metoprolol xl, atorvastatin, Imdur, lisinopril Stopped Plavix 75 CT surgery consult: Need pulmonary consult, vein mapping Pulmonary consult given hx of smoking, shortness of breath without angina and likely WESLEY Room air ABG: pH 7.429, pCO2 33.6, pO2 81.8, HCO3 21.8 ?? ICM LVEF of 45% (2018) improved from 25% from (2017). He is not in decompensated heart failure Will continue with home dose of torsemide after holding for possible left heart cath today Echocardiogram completed, EF 45% with WMA Continue Aldactone, lisinopril and metoprolol xl ?? DM-2 He is dependent on insulin A1c 7.2 He has been taking his medications as advised Will continue on Lantus along with Humalog Hyperlipidemia Lipid Panel TC 94, HDL 37, LDLd 39, Trig 277 Atorvastatin 80 mg daily ?? Sleep apnea and Obesity Never started using CPAP, as he never had follow-up from his [facility] sleep study done in 2001 Advised about follow up with PMD for out patient CPAP machine and to lose weight Pulmonary consult pre op surgery ?? Code status Full code He wants his ex as next of kin for medical decision making, next of kin Ex Shraddha Esteves Discussed with MD Kelly Tesfaye, OLIVER 01/29/2019 Associated attestation - Lizz Cabrera MD - 01/29/2019 3:33 PM EDT Images from the original note were not included. ATTENDING ATTESTATION: I met with the patient today and independently confirmed the history, physical exam, and reviewed the available test results. I have discussed the plan with the patient and have personally edited the document to reflect the plan of care. In summary, Dylan is stable. Vein mapping shows adequate conduit. He has been off plavix for 3 days. Appreciate pulmonary consult. Awaiting PFTs. Will ask CTS to finalize plan with the patient regardingsurgical revascularization. Remainder of plan as per Kelly Oliveira's note. Lizz Cabrera MD [facility] Interventional Cardiology Pager [phone] Jose Oliveiraette Michael, CONTRACT MAIL CARRIER - 01/28/2019 9:41 AM EDT Images from the original note were not included. Inpatient Cardiology Progress Note Patient Name: Connor Gan Service: [employer] MAN / PA Responsible Attending: Lizz Cabrera MD Reason for continued hospitalization: Evaluation and management of unstable angina in a patient with known multivessel disease CT surgery consult in progress Active Problems: Active Hospital Problems Diagnosis ??? Atherosclerosis of coronary artery Overview: Had Catheterization in 2005 at [facility] -- showed two vessel disease that was not intervened upon (LAD and Circ). [facility] 06/15 showed MVD, not candidate for CABG ??? Ischemic cardiomyopathy ??? Hypertension ??? Dyslipidemia ??? Mitral regurgitation ??? NSTEMI (non-ST elevated myocardial infarction) ??? Type 2 diabetes mellitus with complication Dxd 1985 Resolved Hospital Problems No resolved problems to display. Interval History: Currently no chest pain or shortness of breath at rest. When walking 50 feet he had to stop due to shortness of breath, returned to his room and is feeing better. Review of Systems: Review of Systems Respiratory: Positive for shortness of breath. Cardiovascular: Negative for chest pain. Musculoskeletal: Right radial site feels well. Psychiatric/Behavioral: Some financial concerns given that his is on medicare. All other systems reviewed and are negative. Telemetry: HR: 55-85 PVCs and first-degree AV block Meds: Scheduled Meds: ??? aspirin 81 mg Oral Daily ??? atorvastatin 80 mg Oral QPM ??? gabapentin 300 mg Oral TID ??? isosorbide mononitrate 120 mg Oral Daily ??? lisinopril 10 mg Oral Daily ??? magnesium oxide 400 mg Oral BID ??? metoprolol succinate 50 mg Oral Daily ??? spironolactone 50 mg Oral Daily ??? sodium chloride 0.9 % (flush) 5 mL Intravenous BID ??? sodium chloride 0.9 % (flush) 5 mL Intravenous BID ? ? insulin lispro 3-12 Units Subcutaneous 4 Times Daily AC & HS ??? insulin lispro 20 Units Subcutaneous TID WC ??? insulin glargine 20 Units Subcutaneous 2 times per day ??? famotidine 20 mg Oral Daily Continuous Infusions: PRN Meds:midazolam (PF), atropine, HYDROmorphone, acetaminophen, nitroGLYcerin, traZODone, Glucose 40% oral gel OR dextrose OR glucagon (human recombinant), sodium chloride 0.9 % (flush), lidocaine, sodium chloride 0.9 % (flush) Physical Exam: Vital Signs: Last value Range last 24 hrs Temperature Temp: 36.7 ??C (98.1 ??F) Temp: [36.5 ??C (97.7 ??F)-37.2 ??C (99 ??F)] Heart Rate Heart Rate: 69 Heart Rate: [60-80] Blood Pressure BP: 118/70 BP: (93-123)/(46-83) Respiratory Rate Resp: 18 Resp: [14-18] SpO2 SpO2: 98 % SpO2: [95 %-100 %] Patient Vitals for the past 168 hrs: Weight 01/28/19 0640 130.6 kg (287 lb 14.7 oz) 01/27/19 0642 131.4 kg (289 lb 11 oz) 01/26/19 2115 131.6 kg (290 lb 2 oz) Intake/Output Summary (Last 24 hours) at 01/28/2019 0941 Last data filed at 01/28/2019 0913 Gross per 24 hour Intake 800 ml Output 1875 ml Net -1075 ml Physical Exam Constitutional: He is oriented to person, place, and time. He appears well- developed and well-nourished. No distress. Obese male HENT: Head: Normocephalic and atraumatic. Eyes: Right eye exhibits no discharge. Left eye exhibits no discharge. Neck: Normal range of motion. Neck supple. No JVD present. Cardiovascular: Normal rate, regular rhythm and normal heart sounds. No murmur heard. Pulmonary/Chest: Effort normal and breath sounds normal. No respiratory distress. He has no wheezes.He has no rales. Abdominal: Soft. Large protuberant abdomen. Musculoskeletal: Normal range of motion. He exhibits edema (trace). Neurological: He is alert and oriented to person, place, and time. Skin: Skin is warm and dry. He is not diaphoretic. Right wrist is clean, dry and intact. No hematoma or ooze. Radial pulse is present. Intact color, sensation and motion. Capillary refill is under 2 seconds. Psychiatric: He has a normal mood and affect. His behavior is normal. Vitals reviewed. Lab Comments: Recent Labs 01/27/19 0408 01/26/19 2221 WBC 11.0* 12.4* HGB 12.6* 14.1 HCT 37.9* 41.6 PLATELET 182 228 Recent Labs 01/26/19 2221 INR 1.1 Recent Labs 01/27/19 0408 01/26/19 2221 NA 137 136 K 4.1 4.5 CL 103 101 CO2 21* 22 BUN 21* 22* CREATININE 0.84 0.94 Recent Labs 01/26/19 2221 AST 24 ALT 32 ALKPHOS 47 BILITOT 0.5 BILIDIR 0.1 Recent Labs 01/26/19 2221 CALCIUM 9.4 MAGNESIUM 0.71 Recent Labs 01/27/19 0408 01/26/19 2221 CK -- 133 TROPONINT <0.01 0.01* Pertinent Radiographic/Diagnostic Results: Cardiac cath: 01/27/19 Conclusions: * Three vessel coronary artery disease (LAD, LCX and RCA) * Recommend shared decision making process to evaluate role of medical therapy, PCI or CABG. Echo: 01/27/19 Final report pending Assessment: Connor Gan is a 68 y.o. male with h/o ASCVD (3VD managed medically, [facility]), DM-2 (insulin dependent), HTN, HLD, ICM (LVEF 45% 04/2018) improved from 25% in 2017 and psoriasis transferredfrom [facility] for crescendo angina with elevated troponins for further evaluation. On arrival to [facility] ERhe denied having chest pain, EKG without acute abnormality but his troponins were elevated. 2/2 classic symptoms of angina and troponin elevation, he was loaded with Plavix, started on heparin and transferred to [facility] for further evaluation. Cardiac catheterization found three-vessel disease. Consult to CT surgery today. Plan for pulmonary consult tomorrow as well as bilateral vein mapping. Will stop Plavix and anticipation of bypass later this week. Plan: NSTEMI Known 3VD and on medical management Continue aspirin, metoprolol xl, atorvastatin, Imdur, lisinopril Stopped Plavix 75 [address] surgery consult: Need pulmonary consult, vein mapping, room air ABG ?? ICM LVEF of 45% (2018) improved from 25% from (2017). He is not in decompensated heart failure Will continue with home dose of torsemide after holding for possible left heart cath today Echocardiogram completed, await final read Continue Aldactone, lisinopril and metoprolol xl ?? DM-2 He is dependent on insulin HBA1c 7.2 He has been taking his medications as advised Will continue on Lantus along with humalog Lipid Panel TC 94, HDL 37, LDLd 39, Trig 277 Atorvastatin 80 mg daily ?? Sleep apnea and Obesity Never started using CPAP Advised about follow up with PMD for out patient CPAP machine and to lose weight ?? Code status Full code He wants his ex as next of kin for medical decision making, next of kin Ex Shraddha Esteves Discussed with MD Kelly Tesfaye, [employer] MAIL [employer]RIER 01/28/2019 Associated attestation - Lizz Cabrera MD - 01/28/2019 2:25 PM EDT Images from the original note were not included. ATTENDING ATTESTATION: I met with the patient today and independently confirmed the history, physical exam, and reviewed the available test results. I have discussed the plan with the patient and have personally edited the document to reflect the plan of care. In summary, Mr. Gan is clinically stable. I had a long discussion with him and his ex- (ROBERTO) about his options (CABG vs. PCI). He was seen by CTS this am and per report the plan is to proceed with CABG. Please see CTS consult note for full details. Will optimize meds and plan for surgical revascularization. Remainder of plan per Kelly Oliveira's note. Lizz Cabrera MD [facility] Interventional Cardiology Pager [phone] Breanna Alcazar RN - 01/27/2019 6:35 PM EDT OUTCOME SUMMARY: Pt. Is A&O, VS in doc flow, Tele: SR w/1st degree AVB, full report in chart. Pt. Had a good day,no events, he denies CP/SOB. Heparin drip maintained prior to cardiac cath, post cath heparin was D/C'd. Cardiac cath: pt. Tolerated well, right radial site maintained per protocol, TR band off at 1500, site is CDI. Echo obtained, he tolerated well. Bilateral IVs CDI/patent. Pt. Had family at the bedside. Call baldwin within reach. Will continue to monitor. ?? PLAN MOVING FORWARD: Med manage, PCI vs. Bypass. ?? INDIVIDUALIZED FALL PREVENTION INTERVENTIONS: ?? Patient-specific fall risk factors per assessment: [current deficits]:?? Incisions, IV line x2, hospital environment, comorbidities. ?? Assistance [level of assistance required for transfers and ambulation]:?? SBA ?? Supervision [direct monitoring required during toileting and ADLs]:?? eyes on. ?? Surveillance [continuous indirect monitoring]:? Tele, purposeful nurse rounding, call baldwin within reach. ?? CPG GOAL OUTCOME EVALUATION:? ongoing Jacque Madrigal PA - 01/27/2019 7:23 AM EDT Images from the original note were not included. Inpatient Cardiology Progress Note Patient Name: Connor Gan Service: [employer] MAN / PA Responsible Attending: Lizz Cabrera MD Reason for continued hospitalization: Evaluation and management of unstable angina in a patient with known multivessel disease Active Problems: Active Hospital Problems Diagnosis ??? Atherosclerosis of coronary artery Overview: Had Catheterization in 2005 at [facility] -- showed two vessel disease that was not intervened upon (LAD and Circ). [facility] 06/15 showed MVD, not candidate for CABG ??? Ischemic cardiomyopathy ??? Hypertension ??? Dyslipidemia ??? Mitral regurgitation ??? NSTEMI (non-ST elevated myocardial infarction) ??? Type 2 diabetes mellitus with complication Dxd 1984 Resolved Hospital Problems No resolved problems to display. Interval History: Currently no chest pain or shortness of breath. Resting comfortably. Plan of care discussed with patient. LHC and Echo. Assess targets for PCI. Review of Systems: Review of Systems Constitutional: Negative for chills, diaphoresis and fatigue. HENT: Negative. Eyes: Negative. Respiratory: Negative for cough, chest tightness and shortness of breath. Cardiovascular: Negative for chest pain, palpitations and leg swelling. Gastrointestinal: Negative for abdominal distention and abdominal pain. Endocrine: Negative. Genitourinary: Negative. Musculoskeletal: Negative. Skin: Negative. Allergic/Immunologic: Negative. Neurological: Negative for dizziness, syncope and light-headedness. Hematological: Negative. Psychiatric/Behavioral: Negative. Telemetry: HR: Heart Rate: [68-75] sinus rhythm and rare PVCs Meds: Scheduled Meds: ??? aspirin 81 mg Oral Daily ??? atorvastatin 80 mg Oral QPM ??? gabapentin 300 mg Oral TID ??? isosorbide mononitrate 120 mg Oral Daily ??? lisinopril 10 mg Oral Daily ??? magnesium oxide 400 mg Oral BID ??? metoprolol succinate 50 mg Oral Daily ??? spironolactone 50 mg Oral Daily ??? sodium chloride 0.9 % (flush) 5 mL Intravenous BID ??? sodium chloride 0.9 % (flush) 5 mL Intravenous Q12H ??? sodium chloride 0.9 % (flush) 5 mL Intravenous BID ? ? insulin lispro 3-12 Units Subcutaneous 4 Times Daily AC & HS ??? insulin lispro 20 Units Subcutaneous TID WC ??? insulin glargine 20 Units Subcutaneous 2 times per day ??? famotidine 20 mg Oral Daily ??? clopidogrel 75 mg Oral Daily Continuous Infusions: ??? heparin (porcine) 1,450 Units/hr (01/27/19 0609) PRN Meds:acetaminophen, nitroGLYcerin, traZODone, Glucose 40% oral gel OR dextrose OR glucagon (human recombinant), sodium chloride 0.9 % (flush), lidocaine, heparin (porcine) AND heparin (porcine), sodium chloride 0.9 % (flush), sodium chloride 0.9 % (flush) Physical Exam: Vital Signs: Last value Range last 24 hrs Temperature Temp: 36.8 ??C (98.2 ??F) Temp: [36.6 ??C (97.9 ??F)-36.8 ??C (98.2 ??F)] Heart Rate Heart Rate: 74 Heart Rate: [68-75] Blood Pressure BP: 120/72 BP: (115-120)/(69-85) Respiratory Rate Resp: 18 Resp: [18] SpO2 SpO2: 96 % SpO2: [96 %-97 %] Patient Vitals for the past 168 hrs: Weight 01/27/19 0642 131.4 kg (289 lb 11 oz) 01/26/19 2115 131.6 kg (290 lb 2 oz) Intake/Output Summary (Last 24 hours) at 01/27/2019 0727 Last data filed at 01/27/2019 0400 Gross per 24 hour Intake 300 ml Output 600 ml Net -300 ml Physical Exam Constitutional: He is oriented to person, place, and time. He appears well- developed and well-nourished. No distress. Obese male HENT: Head: Normocephalic and atraumatic. Eyes: Right eye exhibits no discharge. Left eye exhibits no discharge. Neck: Normal range of motion. Neck supple. No JVD present. Cardiovascular: Normal rate, regular rhythm and normal heart sounds. No murmur heard. Pulmonary/Chest: Effort normal and breath sounds normal. No respiratory distress. He has no wheezes.He has no rales. Abdominal: Soft. Bowel sounds are normal. He exhibits no distension. There is no tenderness. Musculoskeletal: Normal range of motion. He exhibits edema (trace). Neurological: He is alert and oriented to person, place, and time. Skin: Skin is warm and dry. He is not diaphoretic. Psychiatric: He has a normal mood and affect. His behavior is normal. Vitals reviewed. Lab Comments: Recent Labs 01/27/19 0408 01/26/192220 WBC 11.0* 12.4* HGB 12.6* 14.1 HCT 37.9* 41.6 PLATELET 182 228 Recent Labs 01/26/192220 INR 1.1 Recent Labs 01/27/19 0408 01/26/192220 NA 137 136 K 4.1 4.5 CL 103 101 CO2 21* 22 BUN 21* 22* CREATININE 0.84 0.94 Recent Labs 01/26/192220 AST 24 ALT 32 ALKPHOS 47 BILITOT 0.5 BILIDIR 0.1 Recent Labs 01/26/19 2221 CALCIUM 9.4 MAGNESIUM 0.71 Recent Labs 01/27/19 0408 01/26/19 2221 CK -- 133 TROPONINT <0.01 0.01* Pertinent Radiographic/Diagnostic Results: No new tests Assessment: Connor Gan is a 68 y.o. male with h/o ASCVD (3VD managed medically, [facility]), DM-2 (insulin dependent), HTN, HLD, ICM (LVEF 45% 04/2018) improved from 25% in 2017 and psoriasis transferredfrom [facility] for crescendo angina with elevated troponins for further evaluation. On arrival to [facility] ERhe denied having chest pain, EKG without acute abnormality but his troponins were elevated. 2/2 classi symptoms of angina and troponin elevation, he was loaded with Plavix, started on heparin and transferred to [facility] for further evaluation. Plan for Echo and LHC today. Plan: NSTEMI Known 3VD and on medical management as he was not a good candidate for CABG with poor targets Admitted to Cardiology Trending troponins (0.01, <0.01) Tele monitoring Aspirin 81 Plavix 75 Metoprolol succinate 50 mg daily Lipitor 80 mg nightly Imdur 120 mg daily Heparin gtt Rebecca score 149 TIMIrisk score 5 Kilip class # 1 Will keep NPO for left heart cath ?? ICM LVEF of 45% (2018) improved from 25% from (2017). He is not in decompensated heart failure Will continue with home dose of torsemide after holding for possible left heart cath today Echocardiogram Aldactone Lisinopril Toprol XL ?? DM-2 He is dependent on insulin HBA1c 7.2 He has been taking his medications as advised Will continue on Lantus along with humalog Lipid Panel Lab Results Component Value Date CHLPL 94 01/27/2019 HDL 37 01/27/2019 CHOLHDL 2.5 01/27/2019 TRIG 277 01/27/2019 LDLCHOL 2 01/27/2019 LDLDIRECT 39 01/27/2019 ?? Sleep apnea and Obesity Never started using CPAP Advised about follow up with PMD for out patient CPAP machine and to lose weight ?? Code status Doesn't want any heroic measures. He wants to try if there is a chance of recovery. He wants his ex as next of kin for medical decision making ?? Next of kin Ex Shraddha Esteves This patient was discussed with Lizz Cabrera MD. Jacque Madrigal PA-C 01/27/2019 Associated attestation - Lizz Cabrera MD - 01/27/2019 2:21 PM EDT Images from the original note were not included. ATTENDING ATTESTATION: I met with the patient today and independently confirmed the history, physical exam, and reviewed the available test results. I have discussed the plan with the patient and have personally edited the document to reflect the plan of care. In summary, Mr. Gan presents with recurrent symptoms of angina and minimal biomarker leak. His past cardiac history is relevant for known CAD. There are reports that his anatomy was not suitable for intervention (surgical or percutaneous since 2001). More recent records from [facility] in 2017 comment ondiffuse 3VD with severely reduced LVEF. Medical management of end-stage CAD was recommended. He presents now for several days of progressive symptoms of shortness of breath and exertional chestpain. Coronary angiography today showed severe 3VD (high grade prox and diffuse mid LAD and D1 disease, severe diffuse OM disease and occluded RCA). Filling pressures were not elevated. Echo is pending. At this time, will have CTS evaluate and assess clinical and anatomic candidacy for or WYLIE to LAD, SVG to D1 and OM1. In the meanwhile, will optimize medical therapy. Lizz Cabrera MD [facility] Interventional Cardiology Pager [phone] documented in this encounter H&P Notes Trip Corona MD - 01/31/2019 1:00 PM EDT I have seen and examined the patient and we are ready to proceed. Source Note - Glaindo Bell MD - 01/26/2019 8:54 PM EDT Images from the original note were not included. Cardiology Admission H&P Patient Name: Cononr Gan Date of : 1950 Age: 68 y.o. Hospital Admit Date: 01/26/2019 Inpatient Attending: Wilton Roper MD PCP: MD Dr Enma Steiner-Second opinion Presenting Diagnosis/Chief Complaint: Chest pain Active Problem List: Active Hospital Problems Diagnosis ??? Atherosclerosis of coronary artery Overview: Had Catheterization in 2005 at [facility] -- showed two vessel disease that was not intervened upon (LAD and Circ). [facility] 06/15 showed MVD, not candidate for CABG ??? Ischemic cardiomyopathy ??? Hypertension ??? Dyslipidemia ??? Mitral regurgitation ??? NSTEMI (non-ST elevated myocardial infarction) ??? Type 2 diabetes mellitus with complication Dxd 1984 Resolved Hospital Problems No resolved problems to display. History of Present Illness: HPI Mr Connor Gan is 68 y/o M with h/o ASCVD ( 3VD-managed medically-[facility]), DM- 2(Insulin dependent), HTN, HLD, ICM(LVEF-45%23503) improved from 25%(2017) and Psoriasis transferred from [facility] for crescendo symptoms of angina with elevated troponins for further evaluation. He has been having worsening exertional shortnes of breath for the last few weeks. He also started having frequent episodes of chestdiscomfort at rest and with minimal exertion that requiring sub lingual nitroglycerin and its frequency has been increasing for the last week. He was unable to complete his cardiac rehab this week because of shortness of breath and chest discomfort. He has been taking his medications and denies any PND or Orthopnea. Chest discomfort has been similar to his previous episodes of heart attacks.He went to his primary care doctor for routine follow up and he advised to go to ER for his crescendo symptomsof angina and worsening shortness of breath. On arrival to [facility] ER he denies having any chest pain , EKG without any acute abnormality but his troponins were elevated. Because of his classical symptoms of angina and troponin elevation loaded with plavix, started on heparin and transferred to [facility] forfurther evaluation. He denies any recent fever, chills , rigors , sick contacts, long distance travel,PND or Orthopnea. His weight has increased few pounds but denies any lower extremity edema. He has been having claudication pain with exertion. Labs and Medications from [facility]); Vitals on arrival; Bp; 85/42 mm of hg; Pr; 76/min; Rr; 14/min; O2 sat; 94% Labs; Wbc; 11.42 Hg; 13.2 Platelets; 182 PT/INR; 10/1 Ca; 9.5 BUN;22 Creatinine; 1.14 Glucose; 208 Troponin I; 0.14(0.00-0.06) Lft's; Normal Chest X ray; No acute cardiopulmonary process Medications given; Heparin gtt Aspirin; 324mg Plavix; 300mg Past Medical History: Past Medical History: Diagnosis Date ??? CAD (coronary artery disease) ??? Diabetes mellitus ??? Hypertension Previous Diagnostics: Stress: Echo:09/21/2017; [facility] Echocardiogram; 06/2017 Cath: from [facility]; 2016 Coronary Angiography: Dominance: Right Left Main The left main was normal. Left Anterior Descending There was mild diffuse disease of the distal segment of the left anterior descending artery (LAD). The LAD was large. There was a 60% single discrete stenosis of the ostial segment of the first diagonal branch (Diag 1) of the LAD. The Diag 1 was small. Left Circumflex There was mild diffuse disease of the entire vessel segment of the left circumflex artery (LCX). The LCX was large. There was a 40% single discrete stenosis of the ostial segment of the first obtuse marginal branch (OM1) of the LCX. The OM1 was small. The mid 1 segment of the OM1 had a single discrete 80% stenosis. Right Coronary Artery There was a 40% single discrete stenosis of the distal 1 segment of the right coronary artery (RCA). The RCA was large. The distal 2 segment of the RCA had mild diffuse disease. Conclusions: * Two vessel coronary artery disease (LAD and LCX) * Normal left ventricular function (EF-70%) * No evidence of mitral regurgitation Surgical History/Problems: Past Surgical History: Procedure Laterality Date ??? CREATED BY INTERFACE Entered not Verified Procedure Date: 10/06/2010 ??? CREATED BY INTERFACE No History of Operative Procedures Procedure Date: 10/06/2010 Significant Family History: Family History Problem Relation Age of Onset ??? Pulmonary Embolism Father ??? Coronary Artery Disease Brother Social History: Social History Socioeconomic History ??? Marital status: Spouse name: Not on file ??? Number of children: Not on file ??? Years of education: Not on file ??? Highest education level: Not on file Occupational History ??? Not on file Social Needs ??? Financial resource strain: Not on file ??? Food insecurity: Worry: Not on file Inability: Not on file ??? Transportation needs: Medical: Not on file Non-medical: Not on file Tobacco Use ??? Smoking status: Former Smoker Last attempt to quit: 01/11/1999 Years since quittin.0 ??? Smokeless tobacco: Never Used Substance and Sexual Activity ??? Alcohol use: Not Currently ??? Drug use: Never ??? Sexual activity: Not on file Comment: Deferred Lifestyle ??? Physical activity: Days per week: Not on file Minutes per session: Not on file ??? Stress: Not on file Relationships ??? Social connections: Talks on phone: Not on file Gets together: Not on file Attends buddhism service: Not on file Active member of club or organization: Not on file Attends meetings of clubs or organizations: Not on file Relationship status: Not on file ??? Intimate partner violence: Fear of current or ex partner: Not on file Emotionally abused: Not on file Physically abused: Not on file Forced sexual activity: Not on file Other Topics Concern ??? Not on file Social History Narrative ??? Not on file REVIEW OF SYSTEMS: General ROS: Fatigue and worsening exertional shortness of breath Psychological: no anxiety / Depression Ophthalmic: No blurred vision or watery or red eyes. ENT: Negative for ear discharge or running nose or cold or throat swelling. Allergy: negative for itchy/watery eyes Heme: Negative for bleeding, bruising, fatigue, jaundice, night sweats Endocrine: negative for polydipsia/polyuria/ heat intolerance Respiratory: Worsening exertional shortness of breath for the last 2 weeks CVS: Chest pain at rest and with minimal exertion , requiring more sub lingual nitroglycerin for thelast 1 week GI: No abd pain, change in bowel habits, or black or bloody stools Genitourinary: No dysuria, trouble voiding, or hematuria MSK: Chronic joint pains, joint stiffness or joint swelling Neurological: No TIA or stroke symptoms Medications: Medications Prior to Admission Medication Sig Dispense Refill Last Dose ??? traZODone (DESYREL) 50 mg Tablet Take 50 mg by mouth. 01/25/2019 at Unknown time ??? spironolactone (ALDACTONE) 50 mg Tablet Take 50 mg by mouth Daily. 01/26/2019 at Unknown time ??? metoprolol succinate (TOPROL-XL) 25 mg Tablet Sustained Release 24 hr Take 50 mg by mouth Daily.01/26/2019 at Unknown time ??? metFORMIN (GLUCOPHAGE) 1,000 mg Tablet Take 1,000 mg by mouth. 01/26/2019 at Unknown time ??? magnesium oxide (MAG-OX) 400 mg (241.3 mg magnesium) Tablet Take 400mg in the morning and 800mg at night 01/26/2019 at Unknown time ??? liraglutide (VICTOZA) 0.6 mg/0.1 mL (18 mg/3 mL) Pen Injector Inject 0.6 units into the skin daily for 1 week then 1.2mg daily for 1 week then 1.8mg daily. 01/26/2019 at Unknown time ??? gabapentin (NEURONTIN) 300 mg Capsule Take 300 mg by mouth Three times a day. 01/26/2019 at Unknown time ??? aspirin 81 mg Tablet, Delayed Release (E.C.) Take 81 mg by mouth Daily. 01/26/2019 at Unknown time ??? nitroGLYcerin (NITROSTAT) 0.4 mg Tablet, Sublingual Place 1 tablet under the tongue every 5 minutes as needed for Chest pain. 90 tablet 12 01/25/2019 at Unknown time ??? isosorbide mononitrate (IMDUR) 120 mg Tablet Sustained Release 24 hr Take 1 tablet by mouth daily. 90 tablet 3 01/26/2019 at Unknown time ??? atorvastatin (LIPITOR) 80 mg Tablet Take 80 mg by mouth daily. 01/25/2019 at Unknown time ??? insulin aspart (NOVOLOG) Insulin Pen Inject 20 Units subcutaneously 3 times daily (with meals). 01/26/2019 at Unknown time ??? insulin glargine (LANTUS) Solution Inject 38 Units subcutaneously 2 times daily. 01/26/2019 at Unknown time ??? Temple-3 Fatty Acids (FISH OIL) 500 mg Cap Take by mouth. 01/26/2019 at Unknown time ??? lisinopril (PRINIVIL;ZESTRIL) 40 mg tablet (Patient taking differently: 10) 01/26/2019 at Unknowntime ??? ADALIMUMAB (HUMIRA SUBQ) Past Month at Unknown time ??? cholecalciferol, Vitamin D3, 2,000 unit Capsule Take 1 capsule by mouth Daily. Unknown at Unknown time ??? acetaminophen (TYLENOL) 500 mg Tablet Take 500 mg by mouth Every 6 hours as needed. Unknown at Unknown time ??? blood sugar diagnostic strips (Grovac ULTRA TEST) Strip Use to test blood sugar 4 times daily,diag code E11.9 400 each 3 Unknown at Unknown time ??? CIS Free Text Med - Aspirin Unknown at Unknown time ??? multivitamin (THERAGRAN) tablet Unknown at Unknown time ??? diphenhydrAMINE-Acetaminophen (NON-ASPIRIN PM) 25-500 mg Tab Unknown at Unknown time Allergies: Allergies Allergen Reactions ??? Methotrexate Other (See Comments) Increased bleeding, lethargic ??? Shellfish Containing Products Anaphylaxis and Other (See Comments) Numbness, tingling of the tongue. Never had any problem with contrast and never used steroids before cath ??? Cis Free Text Allergy Hymenoptera (Bee) Stings. ??? Shellfish Derived PHYSICAL EXAM: Last set of vital signs: BP 115/85 (BP Location (NBP): Right arm, Patient Position: Lying) Pulse 75 Temp 36.6 ??C (97.9 ??F) (Oral) Resp 18 Ht 167.6 cm (5' 6) Wt 131.6 kg (290 lb 2 oz) SpO2 97% BMI 46.83 kg/m?? Gen/Constitutional: Alert, appears comfortable-morbidly obese. HEENT: ROSEANN, EOMI, No conjunctival pallor or scleral icterus Cardiac/CVS: RRR S1 S2 No murmurs JVP-6 cm from right atrium Pulm/Chest: No crackles or wheezing Abd/GI: No tenderness, distended, soft, BS present, no organomegaly Musculoskeletal: no edema . Pulses palpable 1+ I both femorals and very feeble in lower extremities(Dorsalis pedis), no calf tenderness Neuro/CHICK GRADER: AAO x 3, No evident deficits Skin/Integumentary: No rash Diagnostics: EKG; LABS: Recent Results (from the past 24 hour(s)) Hemogram Result Value Ref Range WBC 12.4 (H) 4.0 - 9.5 x10(3)/mcL RBC 4.68 4.58 - 5.54 x10(6)/mcL Hemoglobin 14.1 13.7 - 16.5 gm/dL Hematocrit 41.6 40.5 - 48.5 % MCV 88.9 82.9 - 93.1 fL MCH 30.1 27.5 - 32.1 pg MCHC 33.9 32.0 - 35.7 gm/dL Platelets 228 145 - 357 x10(3)/mcL RDWSD 42.8 36.0 - 45.0 fL RDWCV 13.2 11.4 - 13.8 % MPV 10.7 7.6 - 12.9 fL nRBC % Auto 0.0 % nRBC Abs Auto 0.000 0.000 - 0.000 x10(3)/mcL POCT Glucose Result Value Ref Range POC Glucose 173 65 - 199 mg/dL A&P: Mr Connor Gan is 68 y/o M with h/o ASCVD ( 3VD-managed medically-[facility]), DM- 2(Insulin dependent), HTN, HLD, ICM(LVEF-45%77028) improved from 25%(2017) and Psoriasis transferred from [facility] for crescendo symptoms of angina with elevated troponins for further evaluation. On arrival to [facility] ER he denies having any chest pain , EKG without any acute abnormality but his troponins were elevated. Because of his classical symptoms of angina and troponin elevation loaded with plavix, started on heparin andtransferred to [facility] for further evaluation. 1; [id number]; He is known patient of significant ASCVD with 3 VD and on medical management as hewas not a good candidate for PCI or CABG because of small diabetic ,target vessels.With crescendo symptoms of angina and elevated troponins loaded with plavix and started on heparin gtt. Trending troponins Tele monitoring Aspirin Plavix Metoprolol Lipitor Imdur Heparin gtt Rebecca score; 149 TIMIrisk score; 5 Kilip class # 1 Will keep NPO for possible left heart cath in am 2; ICM; He is a known patient of ischemic cardiomyopathy with recent LVEF of 45%(2018) improved from25% from (2017). He is not in decompensated heart failure . Will continue with home dose of torsemide after holding for possible left heart cath in am. Echocardiogram Aldactone Lisinopril Toprol XL Aspirin 3; DM-2; He is dependent on insulin and based on his history his recent HBA1c was 7 and he has been taking his medications as advised.Will continue on lantus along with humalog . Requested for HBA1c and lipid panel. 4; Sleep apnea and Obesity; He is known patient of sleep apnea but never started using CPAP.Advised about follow up with PMD for out patient CPAP machine and to loose weight. 5; Code status; Doesn't want to go for any heroic measures. He wants to try if there is a chance of recovery. He wants his ex as next of kin for medical decision making Next of kin -Ex ; Shraddha Esteves; [phone] Galindo Bell MD Provider #: [id number] 01/26/2019 Galindo Bell MD - 01/26/2019 8:54 PM EDT Images from the original note were not included. Cardiology Admission H&P Patient Name: Connor Gan Date of : 1950 Age: 68 y.o. Hospital Admit Date: 01/26/2019 Inpatient Attending: Wilton Roper MD PCP: MD Dr Enma Steiner-Second opinion Presenting Diagnosis/Chief Complaint: Chest pain Active Problem List: Active Hospital Problems Diagnosis ??? Atherosclerosis of coronary artery Overview: Had Catheterization in 2005 at [facility] -- showed two vessel disease that was not intervened upon (LAD and Circ). [facility] 06/15 showed MVD, not candidate for CABG ??? Ischemic cardiomyopathy ??? Hypertension ??? Dyslipidemia ??? Mitral regurgitation ??? NSTEMI (non-ST elevated myocardial infarction) ??? Type 2 diabetes mellitus with complication Dxd 1984 Resolved Hospital Problems No resolved problems to display. History of Present Illness: HPI Mr Connor Gan is 68 y/o M with h/o ASCVD ( 3VD-managed medically-[facility]), DM- 2(Insulin dependent), HTN, HLD, ICM(LVEF-45%07024) improved from 25%(2017) and Psoriasis transferred from [facility] for crescendo symptoms of angina with elevated troponins for further evaluation. He has been having worsening exertional shortnes of breath for the last few weeks. He also started having frequent episodes of chestdiscomfort at rest and with minimal exertion that requiring sub lingual nitroglycerin and its frequency has been increasing for the last week. He was unable to complete his cardiac rehab this week because of shortness of breath and chest discomfort. He has been taking his medications and denies any PND or Orthopnea. Chest discomfort has been similar to his previous episodes of heart attacks.He went to his primary care doctor for routine follow up and he advised to go to ER for his crescendo symptomsof angina and worsening shortness of breath. On arrival to [facility] ER he denies having any chest pain , EKG without any acute abnormality but his troponins were elevated. Because of his classical symptoms of angina and troponin elevation loaded with plavix, started on heparin and transferred to [facility] for[facility] evaluation. He denies any recent fever, chills , rigors , sick contacts, long distance travel,PND or Orthopnea. His weight has increased few pounds but denies any lower extremity edema. He has been having claudication pain with exertion. Labs and Medications from [facility]); Vitals on arrival; Bp; 85/42 mm of hg; Pr; 76/min; Rr; 14/min; O2 sat; 94% Labs; Wbc; 11.42 Hg; 13.2 Platelets; 182 PT/INR; 10/1 Ca; 9.5 BUN;22 Creatinine; 1.14 Glucose; 208 Troponin I; 0.14(0.00-0.06) Lft's; Normal Chest X ray; No acute cardiopulmonary process Medications given; Heparin gtt Aspirin; 324mg Plavix; 300mg Past Medical History: Past Medical History: Diagnosis Date ??? CAD (coronary artery disease) ??? Diabetes mellitus ??? Hypertension Previous Diagnostics: Stress: Echo:09/21/2017; [facility] Echocardiogram; 06/2017 Cath: from [facility]; 2016 Coronary Angiography: Dominance: Right Left Main The left main was normal. Left Anterior Descending There was mild diffuse disease of the distal segment of the left anterior descending artery (LAD). The LAD was large. There was a 60% single discrete stenosis of the ostial segment of the first diagonal branch (Diag 1) of the LAD. The Diag 1 was small. Left Circumflex There was mild diffuse disease of the entire vessel segment of the left circumflex artery (LCX). The LCX was large. There was a 40% single discrete stenosis of the ostial segment of the first obtuse marginal branch (OM1) of the LCX. The OM1 was small. The mid 1 segment of the OM1 had a single discrete 80% stenosis. Right Coronary Artery There was a 40% single discrete stenosis of the distal 1 segment of the right coronary artery (RCA). The RCA was large. The distal 2 segment of the RCA had mild diffuse disease. Conclusions: * Two vessel coronary artery disease (LAD and LCX) * Normal left ventricular function (EF-70%) * No evidence of mitral regurgitation Surgical History/Problems: Past Surgical History: Procedure Laterality Date ??? CREATED BY INTERFACE Entered not Verified Procedure Date: 10/06/2010 ??? CREATED BY INTERFACE No History of Operative Procedures Procedure Date: 10/06/2010 Significant Family History: Family History Problem Relation Age of Onset ??? Pulmonary Embolism Father ??? Coronary Artery Disease Brother Social History: Social History Socioeconomic History ??? Marital status: Spouse name: Not on file ??? Number of children: Not on file ??? Years of education: Not on file ??? Highest education level: Not on file Occupational History ??? Not on file Social Needs ??? Financial resource strain: Not on file ??? Food insecurity: Worry: Not on file Inability: Not on file ??? Transportation needs: Medical: Not on file Non-medical: Not on file Tobacco Use ??? Smoking status: Former Smoker Last attempt to quit: 01/11/1999 Years since quittin.0 ??? Smokeless tobacco: Never Used Substance and Sexual Activity ??? Alcohol use: Not Currently ??? Drug use: Never ??? Sexual activity: Not on file Comment: Deferred Lifestyle ??? Physical activity: Days per week: Not on file Minutes per session: Not on file ??? Stress: Not on file Relationships ??? Social connections: Talks on phone: Not on file Gets together: Not on file Attends buddhism service: Not on file Active member of club or organization: Not on file Attends meetings of clubs or organizations: Not on file Relationship status: Not on file ??? Intimate partner violence: Fear of current or ex partner: Not on file Emotionally abused: Not on file Physically abused: Not on file Forced sexual activity: Not on file Other Topics Concern ??? Not on file Social History Narrative ??? Not on file REVIEW OF SYSTEMS: General ROS: Fatigue and worsening exertional shortness of breath Psychological: no anxiety / Depression Ophthalmic: No blurred vision or watery or red eyes. ENT: Negative for ear discharge or running nose or cold or throat swelling. Allergy: negative for itchy/watery eyes Heme: Negative for bleeding, bruising, fatigue, jaundice, night sweats Endocrine: negative for polydipsia/polyuria/ heat intolerance Respiratory: Worsening exertional shortness of breath for the last 2 weeks CVS: Chest pain at rest and with minimal exertion , requiring more sub lingual nitroglycerin for thelast 1 week GI: No abd pain, change in bowel habits, or black or bloody stools Genitourinary: No dysuria, trouble voiding, or hematuria MSK: Chronic joint pains, joint stiffness or joint swelling Neurological: No TIA or stroke symptoms Medications: Medications Prior to Admission Medication Sig Dispense Refill Last Dose ??? traZODone (DESYREL) 50 mg Tablet Take 50 mg by mouth. 01/25/2019 at Unknown time ??? spironolactone (ALDACTONE) 50 mg Tablet Take 50 mg by mouth Daily. 01/26/2019 at Unknown time ??? metoprolol succinate (TOPROL-XL) 25 mg Tablet Sustained Release 24 hr Take 50 mg by mouth Daily.01/26/2019 at Unknown time ??? metFORMIN (GLUCOPHAGE) 1,000 mg Tablet Take 1,000 mg by mouth. 01/26/2019 at Unknown time ??? magnesium oxide (MAG-OX) 400 mg (241.3 mg magnesium) Tablet Take 400mg in the morning and 800mg at night 01/26/2019 at Unknown time ??? liraglutide (VICTOZA) 0.6 mg/0.1 mL (18 mg/3 mL) Pen Injector Inject 0.6 units into the skin daily for 1 week then 1.2mg daily for 1 week then 1.8mg daily. 01/26/2019 at Unknown time ??? gabapentin (NEURONTIN) 300 mg Capsule Take 300 mg by mouth Three times a day. 01/26/2019 at Unknown time ??? aspirin 81 mg Tablet, Delayed Release (E.C.) Take 81 mg by mouth Daily. 01/26/2019 at Unknown time ??? nitroGLYcerin (NITROSTAT) 0.4 mg Tablet, Sublingual Place 1 tablet under the tongue every 5 minutes as needed for Chest pain. 90 tablet 12 01/25/2019 at Unknown time ??? isosorbide mononitrate (IMDUR) 120 mg Tablet Sustained Release 24 hr Take 1 tablet by mouth daily. 90 tablet 3 01/26/2019 at Unknown time ??? atorvastatin (LIPITOR) 80 mg Tablet Take 80 mg by mouth daily. 01/25/2019 at Unknown time ??? insulin aspart (NOVOLOG) Insulin Pen Inject 20 Units subcutaneously 3 times daily (with meals). 01/26/2019 at Unknown time ??? insulin glargine (LANTUS) Solution Inject 38 Units subcutaneously 2 times daily. 01/26/2019 at Unknown time ??? Temple-3 Fatty Acids (FISH OIL) 500 mg Cap Take by mouth. 01/26/2019 at Unknown time ??? lisinopril (PRINIVIL;ZESTRIL) 40 mg tablet (Patient taking differently: 10) 01/26/2019 at Unknowntime ??? ADALIMUMAB (HUMIRA SUBQ) Past Month at Unknown time ??? cholecalciferol, Vitamin D3, 2,000 unit Capsule Take 1 capsule by mouth Daily. Unknown at Unknown time ??? acetaminophen (TYLENOL) 500 mg Tablet Take 500 mg by mouth Every 6 hours as needed. Unknown at Unknown time ??? blood sugar diagnostic strips (Grovac ULTRA TEST) Strip Use to test blood sugar 4 times daily,diag code E11.9 400 each 3 Unknown at Unknown time ??? CIS Free Text Med - Aspirin Unknown at Unknown time ??? multivitamin (THERAGRAN) tablet Unknown at Unknown time ??? diphenhydrAMINE-Acetaminophen (NON-ASPIRIN PM) 25-500 mg Tab Unknown at Unknown time Allergies: Allergies Allergen Reactions ??? Methotrexate Other (See Comments) Increased bleeding, lethargic ??? Shellfish Containing Products Anaphylaxis and Other (See Comments) Numbness, tingling of the tongue. Never had any problem with contrast and never used steroids before cath ??? Cis Free Text Allergy Hymenoptera (Bee) Stings. ??? Shellfish Derived PHYSICAL EXAM: Last set of vital signs: BP 115/85 (BP Location (NBP): Right arm, Patient Position: Lying) Pulse 75 Temp 36.6 ??C (97.9 ??F) (Oral) Resp 18 Ht 167.6 cm (5' 6) Wt 131.6 kg (290 lb 2 oz) SpO2 97% BMI 46.83 kg/m?? Gen/Constitutional: Alert, appears comfortable-morbidly obese. HEENT: ROSEANN, EOMI, No conjunctival pallor or scleral icterus Cardiac/CVS: RRR S1 S2 No murmurs JVP-6 cm from right atrium Pulm/Chest: No crackles or wheezing Abd/GI: No tenderness, distended, soft, BS present, no organomegaly Musculoskeletal: no edema . Pulses palpable 1+ I both femorals and very feeble in lower extremities(Dorsalis pedis), no calf tenderness Neuro/CHICK GRADER: AAO x 3, No evident deficits Skin/Integumentary: No rash Diagnostics: EKG; LABS: Recent Results (from the past 24 hour(s)) Hemogram Result Value Ref Range WBC 12.4 (H) 4.0 - 9.5 x10(3)/mcL RBC 4.68 4.58 - 5.54 x10(6)/mcL Hemoglobin 14.1 13.7 - 16.5 gm/dL Hematocrit 41.6 40.5 - 48.5 % MCV 88.9 82.9 - 93.1 fL MCH 30.1 27.5 - 32.1 pg MCHC 33.9 32.0 - 35.7 gm/dL Platelets 228 145 - 357 x10(3)/mcL RDWSD 42.8 36.0 - 45.0 fL RDWCV 13.2 11.4 - 13.8 % MPV 10.7 7.6 - 12.9 fL nRBC % Auto 0.0 % nRBC Abs Auto 0.000 0.000 - 0.000 x10(3)/mcL POCT Glucose Result Value Ref Range POC Glucose 173 65 - 199 mg/dL A&P: Mr Connor Gan is 68 y/o M with h/o ASCVD ( 3VD-managed medically-[facility]), DM- 2(Insulin dependent), HTN, HLD, ICM(LVEF-45%[id number]) improved from 25%(2017) and Psoriasis transferred from [facility] for crescendo symptoms of angina with elevated troponins for further evaluation. On arrival to [facility] ER he denies having any chest pain , EKG without any acute abnormality but his troponins were elevated. Because of his classical symptoms of angina and troponin elevation loaded with plavix, started on heparin andtransferred to [facility] for further evaluation. 1; JYWSAB-Rxsp-6; He is known patient of significant ASCVD with 3 VD and on medical management as hewas not a good candidate for PCI or CABG because of small diabetic ,target vessels.With crescendo symptoms of angina and elevated troponins loaded with plavix and started on heparin gtt. Trending troponins Tele monitoring Aspirin Plavix Metoprolol Lipitor Imdur Heparin gtt Rebecca score; 149 TIMIrisk score; 5 Kilip class # 1 Will keep NPO for possible left heart cath in am 2; ICM; He is a known patient of ischemic cardiomyopathy with recent LVEF of 45%(2018) improved from25% from (2017). He is not in decompensated heart failure . Will continue with home dose of torsemide after holding for possible left heart cath in am. Echocardiogram Aldactone Lisinopril Toprol XL Aspirin 3; DM-2; He is dependent on insulin and based on his history his recent HBA1c was 7 and he has been taking his medications as advised.Will continue on lantus along with humalog . Requested for HBA1c and lipid panel. 4; Sleep apnea and Obesity; He is known patient of sleep apnea but never started using CPAP.Advised about follow up with PMD for out patient CPAP machine and to loose weight. 5; Code status; Doesn't want to go for any heroic measures. He wants to try if there is a chance of recovery. He wants his ex as next of kin for medical decision making Next of kin -Ex ; Shraddha Esteves; [phone] Galindo Bell MD Provider #: [id number] 01/26/2019 documented in this encounter Nursing Notes Mary Ford RN - 01/31/2019 3:06 PM EDT Safety strap applied to patient on transfer to OR. Defibrillator pads applied to patient prior to induction. 4mg Nitroglycerin diluted in 20 ml NS delivered to surgical field to be used topically PRN by MD Delia. Patient gave permission for family to be updated throughout the procedure. documented in this encounter Miscellaneous Notes Op Note - Trip Corona MD - 02/06/2019 2:30 PM EDT [facility] Operative Note Patient Name: Connor Gan : [id number] MR#: [id number] Case Date: 01/31/2019 Surgeon: Surgeon(s) and Role: * Trip Corona MD - Primary * Adi Patel PA - Physician Remote Sensing Research Scientist Preoperative diagnosis: CAD, Cardiomyopathy Postoperative diagnosis: CAD, Cardiomyopathy PROCEDURE: CABG X 3, WYLIE-LAD, SVG-OM, SVG- RDPA, EVH GREATER SAPHENOUS VEIN RIGHT LEG, EM Indications for procedure: Connor Gan is a 68 y.o. year old male who has been followed for many years with CAD and cardiomyopathy. HE was admitted to [facility] in June of 2017. At that time he had cath and was told he was not a candidate for CABG or PCI. His EF was 30% at that time. HE has been treated medically since. Over the last month or two he has noted worsening shortness of breath, which occurs with activity, and worsening frequency of chest pains, which seems to occur mostly at night. HEwas admitted and transferred. Troponins are normal. Cath shows VERY DIFFUSE coronary disease with calcification. ECHO shows LVEF 40% or greater, but images are poor. After considerable discussion he istaken to the operating room for proposed coronary artery bypass grafting. Findings at the time of surgery: The target vessels, as expected, are quite poor. The RPDA was smalland only a short segment of the vessel is actually open for flow. Conduit was of adequate quality. Patient weaned easily from cardiopulmonary bypass. EM showed ejection fraction of 45 to 50%, which was an improvement. Conduct of cardiopulmonary bypass: Routine aortic and venous cannulation was accomplished. Antegradeand retrograde cardioplegia were utilized with cold induction of arrest. Body temperature was maintained at normothermia. Total pump time was 97 minutes. Cross-clamp time was 77 minutes. Technical procedure used: The patient was placed on the table in a supine position and adequate general endotracheal anesthesia was induced. Appropriate monitoring lines were placed and the patient wasprepped and draped in the usual fashion. Median sternotomy was performed and the internal mammary artery was dissected free of the chest wall. Simultaneously vein was harvested from the right leg usingan endoscopic technique. Heparin was administered to the patient and the pericardium was opened in the midline. Routine aortic and venous cannulation was accomplished. Antegrade and retrograde cardioplegia cannulas were placed within the heart and cardiopulmonary bypass was initiated. The ascending aorta was crossclamped. Antegrade and retrograde cardioplegia were instilled to achieve arrest of the heart, slush was used for topical cooling of the heart. We first identified the obtuse marginal branchand performed an end-to-side anastomosis of saphenous vein graft to the obtuse marginal using 7-0 Prolene suture. The vein was brought anterior to the pulmonary artery and anastomosed proximally to theascending aorta using 6-0 Prolene suture. We then identified the right posterior descending artery which was heavily diseased. We performed an end-to-side anastomosis of saphenous vein graft to the right posterior descending artery using 7-0 Prolene suture. Vein was then brought lateral to the right atrium and anastomosed proximally to the ascending aorta using 6-0 Prolene suture. Finally we identified the anterior descending artery. We performed an end-to-side anastomosis of the left internal mammary artery to the LAD using 8-0 Prolene suture. Bulldog clamp was removed with good flow into the LAD LAD distribution. transportation design engineer was then administered first retrograde, then antegrade, then sequentially antegrade and retrograde to the heart began to beat and the aortic cross-clamp was removed. Epicardial pacing wires were placed in the right atrium right ventricle and brought out through the anterior abdominal wall. 3 chest tubes were placed within the chest and the lungs were reinflated. Patient was then easily weaned from cardiopulmonary bypass. EM showed improved ventricular function with an EF of 45 to 50%. Protamine was administered for reversal of heparin effect. At the conclusion of protamine administration the aortic cannula was removed site was oversewn with 5-0 Prolene suture. When hemostasis was assured sternum was approximated using surgical steel cables. Subcutaneous tissues irrigated and closed using running 0 Vicryl suture. Skin was closed using running subcuticular stitch of 4-0 Monocryl. Patient tolerated the procedure and was transported to the cardiac surgical intensive care unit in stable condition. Needle and sponge counts reported correct at the conclusion of the procedure. Consult Note - Livia Lewis RN - 02/06/2019 8:30 AM EDT [facility] Connor Gan was seen today regarding participation in the outpatient Phase 2 Cardiac Rehabilitation at [facility]. The patient agrees to a referral to this program. The referral will be sent at discharge and the patient should be contacted by the Program within 1- 2 weeks from discharge. Plan of Care - Gladis Ogden RN - 02/06/2019 5:29 AM EDT Problem: Patient Care Overview Goal: Plan of Care Review Outcome: Ongoing (Interventions Implemented as Appropriate) 02/06/19 0556 Plan of Care Review Progress progress toward functional goals as expected Coping/Psychosocial Plan Of Care Reviewed With patient OUTCOME EVALUATION NOTE: OUTCOME SUMMARY: Pt had a good night. Refused to ambulate. Pain managed with acetaminophen and 1 dose of oxycodone. Still requires 2 lpm oxygen overnight for desat to 76% on room air while asleep, withknown untreated WESLEY. Pt reports right leg is killing him this am. Nothing seen on examination of the leg. PLAN MOVING FORWARD: D/C planning. ? Home with HS oxygen. INDIVIDUALIZED FALL PREVENTION INTERVENTIONS: Patient-specific fall risk factors per assessment: [current deficits]: age, impaired vision, equipment. Assistance [level of assistance required for transfers and ambulation]: stand by x 1 with walker as needed. Supervision [direct monitoring required during toileting and ADLs]: intermittent. Surveillance [continuous indirect monitoring]: telemetry, pulse oximetry, purposeful hourly rounding. Patient-specific fall prevention interventions for sensory deficits provided, if applicable: Call baldwin and glasses in reach. CPG GOAL OUTCOME EVALUATION: Plan of Care - Jacqueline Zelaya RN - 02/05/2019 5:20 PM EDT Problem: Patient Care Overview Goal: Plan of Care Review Outcome: Ongoing (Interventions Implemented as Appropriate) 02/05/19 0813 02/05/19 1717 Plan of Care Review Progress -- progress toward functional goals as expected Coping/Psychosocial Plan Of Care Reviewed With patient -- OUTCOME EVALUATION NOTE: OUTCOME SUMMARY: Pt A&O. VSS. SR on tele. Remained on RA throughout day. Ambulated around hallx4. Denies CP and SOB. Insulin gtt down. Call baldwin in reach. Will continue to monitor. PLAN MOVING FORWARD: D/c rehab INDIVIDUALIZED FALL PREVENTION INTERVENTIONS: Patient-specific fall risk factors per assessment: [current deficits]: Monitoring wires, weakness Assistance [level of assistance required for transfers and ambulation]: 1A w/ walker Supervision [direct monitoring required during toileting and ADLs]: Hands on Surveillance [continuous indirect monitoring]: Tele, pulse ox, purposeful hourly rounding Patient-specific fall prevention interventions for sensory deficits provided, if applicable: [X] N/A CPG GOAL OUTCOME EVALUATION: Goal: Fall Prevention-Safe Patient Handling Outcome: Ongoing (Interventions Implemented as Appropriate) 02/05/19 0810 02/05/19 1151 02/05/19 1430 Activity Activity Type -- -- ambulated in room;ambulated in tena Activity Assistance Provided -- -- assistance, stand-by Assistive Device Utilized -- -- front-wheel walker Peterson Fall Risk History of Falling 0 -- -- Secondary Diagnosis 15 -- -- Ambulatory Aids 15 -- -- Intravenous Therapy/Heparin/Saline Lock 20 -- -- Gait/Transferring 10 -- -- Mental Status 0 -- -- Score 60 -- -- OTHER Peterson Fall Risk High -- -- Restraint Interventions Safety Promotion/Fall Prevention -- safety round/check completed -- Positioning Body Position -- up in chair -- Goal: Infection Control Outcome: Ongoing (Interventions Implemented as Appropriate) 02/05/19 0810 02/05/19 1717 Coping Strategies Supportive Measures -- active listening utilized;positive reinforcement provided;self-care encouraged Safety Interventions Isolation Precautions standard precautions maintained -- Infection Prevention single patient room provided;rest/sleep promoted;environmental surveillance performed -- Plan of Care - Zehra Fitzgerald, PT - 02/05/2019 10:31 AM EDT Physical Therapy Note Treatment Number PT: 2 Patient profile: Connor Gan is a 68 y.o. male admitted on 01/26/[address] Trip Corona MD s/p CABG x 3 on 01/31. Pmhx pertinent for CAD, HTN, HLD, MR, DMII, cardiomyopathy, psoriasis, former smoker.? Interval History: - no events Social History: Pt lives alone in a senior apartment with no steps to enter. 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 He reports he uses a cane sometimes at baseline. He was indep with ADL's. His ex- is coming to stay upon d/c to assist. He has pull cords in his apartment. He drives. He has meals provided in the complex if he decides to eat there vs make meals. ?? Precautions/Special Considerations: STERNAL, peripheral IV, tele; baseline neuropathy in B/l feet. Mobility and Positioning Recommendations: ?? Pt to ambulate 4x/day with FWW and Ax1. ?? Please encourage up to chair for meal times as able. Subjective: I'm getting better Objective: Patient seen for physical therapy and demonstrated the following: Pain: mild in sternum Vital Signs: At Rest With Activity SpO2 (RA) 95% poor pleth quality during mobility. When straightened pt hand, SpO2 > 90% HR 76bpm 80sbpm Cognition/Vision: WFL, alert. Bed Mobility (HOB flat) Supine to Sit: minimum assist primarily to assist BLE. Maintained precautions. VC for sequencing with log roll technique. Slightly increased WOB when lying flat d/t discomfort in sternum. Sit to Supine: moderate assist; increased time, maintained precautions. Used log roll technique. Transfers: Sit to Stand: minimum assist, moderate assist using cardi pillow from chair; requires 2-3 attempts from lower surfaces. From higher level surfaces requires CGA with improved quality of standing Stand to Sit: contact guard assist using cardi pillow; VC to use pillow and not hands d/t precautions. Bed to Chair: contact guard assist using rolling walker Gait: Distance: 10'x1, 135' Device used: rolling walker Level of assist: CGA/SBA to assist with lines. Steady with FWW. Needs cues for pacing and was educated on deep breathing. At end of mobility c/o SOB (11/15), Sats >90% on RA. Reports he tends to get SOB after he walks. Reiterated importance of slowing his pace and taking rest breaks as needed duringgait. Gait mechanics: Steady Balance: Sitting Static: normal Sitting Dynamic: normal Standing Static: Good with FWW Standing Dynamic / Gait: Good with FWW Education: Reviewed sternal precautions d/t inability to verbalize all sternal precautions; educatedre: bed mobility, functional tranfers, pacing, and DC dispo recommendations. Pt left in bedside recliner chair all needs in reach following visit. Assessment: Connor Gan was seen today for physical therapy treatment session for continuation of POC. Demonstrating improved functional mobility and endurance as noted with ability to ambulate longer distances. Benefits from cues for self-pacing. Was most challenged with bed mobility and sit-stand transfers 2/2 generalized weakness and fatigue of which required increased assist. Currently, pt is below his baseline function and would benefit from rehab services upon d/c to promote his functional independence. Pt will benefit from ongoing therapeutic interventions to achieve therapy goals. Discharge Recommendations: Based on the current findings, Anticipated Discharge Disposition: inpatient rehabilitation facility when medically ready for hospital discharge. Consult Recommendations: No other consults recommended at this time. Equipment needs: TBD Goals: To be achieved by 02/06/19: (ONGOING) ?? 1. Pt will demonstrate independence with all precautions without cues. 2. Pt. to perform bed mobility independently, log roll 3. Pt. to perform sit to stand and bed to chair transfers with supervision using a front wheeled walker. 4. Pt. to ambulate 160 feet with supervision using a a front wheeled walker. 5. Family or caregiver to demonstrate understanding of therapeutic interventions to support the careof the patient. ?? Plan: Therapy Frequency: 2-4 times/wk for therapy interventions as outlined in initial evaluation. Patient agrees with plan as stated. Time IN / OUT: 3963-2110 Total Evaluation Minutes, Physical Therapy: 33(gtx1, tefx1) Zehra Fitzgerald, PT Pager: [phone] Physical Therapy Inpatient Rehabilitation Department Plan of Care - Gladis Ogden RN - 02/05/2019 3:56 AM EDT Problem: Patient Care Overview Goal: Plan of Care Review Outcome: Ongoing (Interventions Implemented as Appropriate) 02/05/19 0355 Plan of Care Review Progress progress towards functional goals is fair OUTCOME EVALUATION NOTE: OUTCOME SUMMARY: Pt did well overnight. Ambulated x 1 last night before bed, and 1 full loop again this am. BM this morning. Pain managed with Tylenol and minimal oxycodone. I.S. Done with encouragement up to [id number]. Insulin gtt weaned to off this am per protocol. PLAN MOVING FORWARD: Per CT surgery pathway. Shower today if possible. ? PT re-evaluate. INDIVIDUALIZED FALL PREVENTION INTERVENTIONS: Patient-specific fall risk factors per assessment: [current deficits]: age, medications, equipment, impaired vision. Assistance [level of assistance required for transfers and ambulation]: Stand by x 1 with walker. Supervision [direct monitoring required during toileting and ADLs]: Intermittent. Surveillance [continuous indirect monitoring]: Telemetry, pulse oximetry, purposeful hourly rounding. Patient-specific fall prevention interventions for sensory deficits provided, if applicable: Call baldwin in reach. Glasses and walker at bedside. CPG GOAL OUTCOME EVALUATION: Plan of Care - Alejandro Connell RN - 02/04/2019 2:37 PM EDT Problem: Patient Care Overview Goal: Plan of Care Review Outcome: Ongoing (Interventions Implemented as Appropriate) 01/30/19 1234 02/03/192019 Plan of Care Review Progress progress toward functional goals is gradual -- Coping/Psychosocial Plan Of Care Reviewed With -- patient OUTCOME EVALUATION NOTE: OUTCOME SUMMARY: Patient post op day 4 from a cabg times 3 ambulated 2 times so far around unit on room air, tolerated well, 1 assist with walker. Patient also had a bowel movement, amio drip discont, now po amio, still on insulin drip PLAN MOVING FORWARD: Cont to monitor,discont insulin gtt soon and cont physical activity INDIVIDUALIZED FALL PREVENTION INTERVENTIONS: Patient-specific fall risk factors per assessment: [current deficits]: decond Assistance [level of assistance required for transfers and ambulation]: 1 with walker Supervision [direct monitoring required during toileting and ADLs]: Call baldwin Surveillance [continuous indirect monitoring]: Hourly rounds Patient-specific fall prevention interventions for sensory deficits provided, if applicable: CPG GOAL OUTCOME EVALUATION: Goal: Fall Prevention-Safe Patient Handling Outcome: Ongoing (Interventions Implemented as Appropriate) 02/03/19201902/04/19 0802/04/19 0937 Activity Activity Type -- -- ambulated in tena Activity Assistance Provided -- -- assistance, stand-by Assistive Device Utilized -- -- front-wheel walker Peterson Fall Risk History of Falling -- 0 -- Secondary Diagnosis -- 15 -- Ambulatory Aids -- 15 -- Intravenous Therapy/Heparin/Saline Lock -- 20 -- Gait/Transferring -- 10 -- Mental Status -- 0 -- Score -- 60 -- OTHER Peterson Fall Risk -- High -- Restraint Interventions Safety Promotion/Fall Prevention -- activity supervised;fall prevention program maintained;nonskid shoes/slippers when out of bed -- Positioning Body Position independent -- -- Goal: Infection Control Outcome: Ongoing (Interventions Implemented as Appropriate) 02/03/192019 Safety Interventions Isolation Precautions standard precautions maintained Infection Prevention environmental surveillance performed;personal protective equipment utilized;rest/sleep promoted;single patient room provided Coping Strategies Supportive Measures active listening utilized;counseling provided;goal setting facilitated;decision-making supported;positive reinforcement provided;self-care encouraged;self-reflection promoted;self-responsibility promoted;verbalization of feelings encouraged Goal: Discharge Needs Assessment Outcome: Ongoing (Interventions Implemented as Appropriate) 01/27/19 025 Discharge Needs Assessment Concerns To Be Addressed no discharge needs identified Readmission Within The Last 30 Days no previous admission in last 30 days Goal: Interdisciplinary Rounds/Family Conf Outcome: Ongoing (Interventions Implemented as Appropriate) 01/27/19249 Interdisciplinary Rounds/Family Conf Participants nursing;patient;physician Problem: Cardiac: ACS (Acute Coronary Syndrome) (Adult) Goal: Signs and Symptoms of Listed Potential Problems Will be Absent, Minimized or Managed (Cardiac:ACS) Signs and symptoms of listed potential problems will be absent, minimized or managed by discharge/transition of care (reference Cardiac: ACS (Acute Coronary Syndrome) (Adult) CPG). Outcome: Ongoing (Interventions Implemented as Appropriate) 01/30/19 1234 Cardiac: ACS (Acute Coronary Syndrome) Problems Assessed (Acute Coronary Syndrome (ACS)) all Problems Present (Acute Coronary Syndrome (ACS)) cardiovascular structural defects Problem: Cardiac Cath/Percutaneous Coronary Intervention (Adult) Goal: Signs and Symptoms of Listed Potential Problems Will be Absent, Minimized or Managed (Cardiac Cath/Percutaneous Coronary Intervention) Signs and symptoms of listed potential problems will be absent, minimized or managed by discharge/transition of care (reference Cardiac Cath/Percutaneous Coronary Intervention (Adult) CPG). Outcome: Ongoing (Interventions Implemented as Appropriate) 01/30/19 1234 Cardiac Cath/Percutaneous Coronary Intervention Problems Assessed (Cardiac Catheterization) all Problems Present (Cardiac Catheterization) none Plan of Care - Giles Hawthorne RN - 02/04/2019 5:12 AM EDT Problem: Patient Care Overview Goal: Plan of Care Review Outcome: Ongoing (Interventions Implemented as Appropriate) 01/30/19 1234 02/03/192019 Plan of Care Review Progress progress toward functional goals is gradual -- Coping/Psychosocial Plan Of Care Reviewed With -- patient OUTCOME EVALUATION NOTE: OUTCOME SUMMARY: Patient had uneventful shift. Reported minor anxiety during the night which passed after a short time. Insulin gtt and amio gtt maintained. See flowsheet for vital signs and I&O. See chart for telereport. Call baldwin within reach. Will continue to monitor. INDIVIDUALIZED FALL PREVENTION INTERVENTIONS: Patient-specific fall risk factors per assessment: [current deficits]: IV, wires Assistance [level of assistance required for transfers and ambulation]: 2 assist Supervision [direct monitoring required during toileting and ADLs]: Hands on Surveillance [continuous indirect monitoring]: Tele, hourly rounding Patient-specific fall prevention interventions for sensory deficits provided, if applicable: [X] N/A CPG GOAL OUTCOME EVALUATION: Ongoing assessment Goal: Fall Prevention-Safe Patient Handling Outcome: Ongoing (Interventions Implemented as Appropriate) 02/03/192019 Activity Activity Type activity adjusted per tolerance Activity Assistance Provided assistance, 1 person Assistive Device Utilized front-wheel walker Peterson Fall Risk History of Falling 0 Secondary Diagnosis 15 Ambulatory Aids 15 Intravenous Therapy/Heparin/Saline Lock 20 Gait/Transferring 10 Mental Status 0 Score 60 OTHER Peterson Fall Risk High Restraint Interventions Safety Promotion/Fall Prevention activity supervised;fall prevention program maintained;nonskid shoes/slippers when out of bed;safety round/check completed Positioning Body Position independent Goal: Infection Control Outcome: Ongoing (Interventions Implemented as Appropriate) 02/03/192019 Safety Interventions Isolation Precautions standard precautions maintained Infection Prevention environmental surveillance performed;personal protective equipment utilized;rest/sleep promoted;single patient room provided Coping Strategies Supportive Measures active listening utilized;counseling provided;goal setting facilitated;decision-making supported;positive reinforcement provided;self-care encouraged;self-reflection promoted;self-responsibility promoted;verbalization of feelings encouraged Patient Refusal of Care - Samra Green RCP - 02/04/2019 2:57 AM EDT Pt refused to wear cpap. Samra Green ELECTRONIC DEVICE REPAIRER Plan of Care - Jacqueline Zelaya RN - 02/03/2019 5:55 PM EDT Problem: Patient Care Overview Goal: Plan of Care Review 01/30/19 1234 02/03/19 0900 Plan of Care Review Progress progress toward functional goals is gradual -- Coping/Psychosocial Plan Of Care Reviewed With -- patient OUTCOME EVALUATION NOTE: OUTCOME SUMMARY: Pt A&O. VSS. Denies CP and SOB. Remained on RA throughout day. Ambulated around tena x1. SR on tele. Insulin gtt and Amio gtt continued. Pain well controlled w/ scheduled tylenol and prn meds. Callbell in reach. WIll continue to monitor. PLAN MOVING FORWARD: BM Ambulate INDIVIDUALIZED FALL PREVENTION INTERVENTIONS: Patient-specific fall risk factors per assessment: [current deficits]: Monitoring wires, Weakness Assistance [level of assistance required for transfers and ambulation]: 1A w/ walker Supervision [direct monitoring required during toileting and ADLs]: Hands on Surveillance [continuous indirect monitoring]: Tele, pulse ox, purposeful hourly rounding Patient-specific fall prevention interventions for sensory deficits provided, if applicable: [X] N/A CPG GOAL OUTCOME EVALUATION: Goal: Fall Prevention-Safe Patient Handling Outcome: Ongoing (Interventions Implemented as Appropriate) 02/03/19 0900 02/03/19 1633 Activity Activity Type -- ambulated to bathroom Activity Assistance Provided -- assistance, 1 person Assistive Device Utilized -- front-wheel walker Peterson Fall Risk History of Falling 0 -- Secondary Diagnosis 15 -- Ambulatory Aids 15 -- Intravenous Therapy/Heparin/Saline Lock 20 -- Gait/Transferring 10 -- Mental Status 0 -- Score 60 -- OTHER Peterson Fall Risk High -- Restraint Interventions Safety Promotion/Fall Prevention -- safety round/check completed;nonskid shoes/slippers when out of bed Positioning Body Position independent -- Goal: Infection Control Outcome: Ongoing (Interventions Implemented as Appropriate) 02/03/19 0900 02/03/19 1200 Safety Interventions Isolation Precautions standard precautions maintained -- Infection Prevention -- rest/sleep promoted;single patient room provided;environmental surveillance performed Coping Strategies Supportive Measures active listening utilized -- Plan of Care - Giles Hawthorne RN - 02/03/2019 6:54 AM EDT Problem: Patient Care Overview Goal: Plan of Care Review Outcome: Ongoing (Interventions Implemented as Appropriate) 01/30/19 1234 02/02/19 2100 Plan of Care Review Progress progress toward functional goals is gradual -- Coping/Psychosocial Plan Of Care Reviewed With -- patient OUTCOME EVALUATION NOTE: OUTCOME SUMMARY: Patient went into afib with RVR around 01:30, amio gtt initiated with bolus, converted back to NSR approximately 03:30. Pt reports pain at MSI site, controlled with meds per pt.See flowsheet for vital signs and I&O. See chart for tele report. Patient denies shortness of breath. Call baldwin within reach. Will continue to monitor. INDIVIDUALIZED FALL PREVENTION INTERVENTIONS: Patient-specific fall risk factors per assessment: [current deficits]: IV, wires Assistance [level of assistance required for transfers and ambulation]: 1-2 assist Supervision [direct monitoring required during toileting and ADLs]: Hands on Surveillance [continuous indirect monitoring]: Tele, hourly rounding Patient-specific fall prevention interventions for sensory deficits provided, if applicable: [X] N/A CPG GOAL OUTCOME EVALUATION: Ongoing assessment Goal: Fall Prevention-Safe Patient Handling Outcome: Ongoing (Interventions Implemented as Appropriate) 02/02/19 2100 02/03/19 0400 Activity Activity Type activity adjusted per tolerance -- Activity Assistance Provided assistance, 1 person -- Assistive Device Utilized front-wheel walker -- Peterson Fall Risk History of Falling 0 -- Secondary Diagnosis 15 -- Ambulatory Aids 15 -- Intravenous Therapy/Heparin/Saline Lock 20 -- Gait/Transferring 20 -- Mental Status 0 -- Score 70 -- OTHER Peterson Fall Risk High -- Restraint Interventions Safety Promotion/Fall Prevention -- safety round/check completed Positioning Body Position independent -- Goal: Infection Control Outcome: Ongoing (Interventions Implemented as Appropriate) 02/02/19 2100 Safety Interventions Isolation Precautions standard precautions maintained Infection Prevention environmental surveillance performed;personal protective equipment utilized;rest/sleep promoted;single patient room provided Coping Strategies Supportive Measures active listening utilized;counseling provided;decision- making supported;goal setting facilitated;positive reinforcement provided;self- care encouraged;self-responsibility promoted;self-reflection promoted;verbalization of feelings encouraged Plan of Care - Jacqueline Zelaya RN - 02/02/2019 5:47 PM EDT Problem: Patient Care Overview Goal: Plan of Care Review Outcome: Ongoing (Interventions Implemented as Appropriate) 01/30/19 1234 02/02/19 1200 Plan of Care Review Progress progress toward functional goals is gradual -- Coping/Psychosocial Plan Of Care Reviewed With -- patient Goal: Fall Prevention-Safe Patient Handling Outcome: Ongoing (Interventions Implemented as Appropriate) 02/02/19 1200 02/02/19 1500 Activity Activity Type up in chair -- Activity Assistance Provided assistance, 2 people -- Assistive Device Utilized standard walker -- Peterson Fall Risk History of Falling 0 -- Secondary Diagnosis 15 -- Ambulatory Aids 15 -- Intravenous Therapy/Heparin/Saline Lock 20 -- Gait/Transferring 20 -- Mental Status 15 -- Score 85 -- OTHER Peterson Fall Risk High -- Restraint Interventions Safety Promotion/Fall Prevention -- safety round/check completed Positioning Body Position -- supine Goal: Infection Control Outcome: Ongoing (Interventions Implemented as Appropriate) 02/01/19199902/02/19 1200 Safety Interventions Isolation Precautions -- standard precautions maintained Infection Prevention -- single patient room provided;rest/sleep promoted Coping Strategies Supportive Measures relaxation techniques promoted;verbalization of feelings encouraged -- Goal: Discharge Needs Assessment Outcome: Ongoing (Interventions Implemented as Appropriate) 01/27/19 0250 Discharge Needs Assessment Concerns To Be Addressed no discharge needs identified Readmission Within The Last 30 Days no previous admission in last 30 days Goal: Interdisciplinary Rounds/Family Conf Outcome: Ongoing (Interventions Implemented as Appropriate) OUTCOME EVALUATION NOTE: OUTCOME SUMMARY: Pt came from [facility] around 1200. A&O. VSS. SR on tele. Denies CP and SOB. Cerna out. Insulin gtt continued. Call baldwin in reach. Will continue to monitor. PLAN MOVING FORWARD: BM and Ambulate CXray 02/03 INDIVIDUALIZED FALL PREVENTION INTERVENTIONS: Patient-specific fall risk factors per assessment: [current deficits]: Monitoring wires, weakness Assistance [level of assistance required for transfers and ambulation]: 2A w/ walker Supervision [direct monitoring required during toileting and ADLs]: Hands on Surveillance [continuous indirect monitoring]: Tele, pulse ox, purposeful hourly rounding Patient-specific fall prevention interventions for sensory deficits provided, if applicable: [X] N/A CPG GOAL OUTCOME EVALUATION: Consult Note - Montserrat Flores APRN - 02/02/2019 9:50 AM EDT Diabetes Management Team Inpatient Consult Date of Consultation: 02/02/2019 Consult Requested by: cardiac surgery Reason for Consultation: Connor Gan is a 68 y.o. male with PMH significant for ASCVD, NSTEMI, T2DM, ischemic cardiomyopathy, MR, HTN, HLD and heart failure who was admitted on 01/26/2019 currentlybeing treated for CABG. We are being consulted to assist with diabetes management and to provide a review of [facility] diabetes care. Diabetes History: Connor Gan has had diabetes since 1984. He stopped all diabetes meds from Jul 2014 to Mar 2015due to cost. He lost about 140 lbs but gained 90 of this back. He was followed by Dr Armenta in our endocrine clinic from 2014 to 2015 He was very lethargic during interview, nurse and primary team notified, much of information obtained from chart review. Current outpatient diabetes regimen: Diabetes Provider: PCP Medications: metformin 1000 mg po BID Victoza 1.8 mg SC daily Lantus 38 units BID Novolog 20 units with meals. Monitoring is done unsure how often Most recent HA1c was done on 01/27/19 and was 7.2%, suggesting an average glucose of 160 mg/dL for the past 6-8 weeks. Typical diet is: Not reviewed Typical exercise regimen is not reviewed Trouble with hypoglycemia not by chart Diabetes Complications Status: Eyes: None Kidneys: None Feet: None Sensory: None Autonomic: None Cardiac: ASCVD CABG Current Hospital Diabetes Care: Medications: Lispro 3-6 units with meals IV insulin infusion. Monitoring: q 1 hrs Diet: cardiac level 2 carb control ROS: Constitutional: No recent weight change Endocrine: No increased thirst or urination Eyes: No recent vision change ENT: No dysphagia, dental issues Cardiovascular: No chest pain Respiratory: No wheezing , shortness of breath GI: No nausea, vomiting, diarrhea, constipation : No frequent urinary tract infections Neurological: No weakness or numbness Skin/Feet: No current diabetic foot ulcers/open area PMH Past Medical History: Diagnosis Date ??? CAD (coronary artery disease) ??? Diabetes mellitus ??? Hypertension Current Hospital Medications: ??? AMIOdarone 400 mg Oral TID ??? furosemide 20 mg Intravenous BID ??? clopidogrel 75 mg Oral Daily ??? gabapentin 300 mg Oral TID ??? miconazole Topical (Top) BID ??? metoprolol 12.5 mg Oral 2 times per day ??? sodium chloride 0.9 % (flush) 5 mL Intravenous Q8H ??? insulin lispro 3-6 Units Subcutaneous TID WC ??? pantoprazole 40 mg Oral Daily Or ??? pantoprazole 40 mg Intravenous Daily ??? aspirin 81 mg Oral Daily ??? aspirin 300 mg Rectal Daily ??? senna-docusate 2 tablet Oral Daily ??? magnesium hydroxide 10 mL Oral Daily ??? insulin regular human 0.5-16 Units/hr Intravenous Change bag every evening ??? acetaminophen 1,000 mg Oral Q6H JEISON ??? atorvastatin 80 mg Oral QPM Infusions: PRN: oxyCODONE, Glucose 40% oral gel OR dextrose, ondansetron, [START ON 02/03/2019] bisacodyl, insulin regular human Allergy: Allergies Allergen Reactions ??? Methotrexate Other (See Comments) Increased bleeding, lethargic ??? Shellfish Containing Products Anaphylaxis and Other (See Comments) Numbness, tingling of the tongue. Never had any problem with contrast and never used steroids before cath ??? Cis Free Text Allergy Hymenoptera (Bee) Stings. ??? Shellfish Derived Social history: Social History Tobacco Use ??? Smoking status: Former Smoker Types: Cigarettes Last attempt to quit: 01/11/1999 Years since quittin.0 ??? Smokeless tobacco: Never Used Substance Use Topics ??? Alcohol use: Not Currently ??? Drug use: Never Family history: Family History Problem Relation Age of Onset ??? Pulmonary Embolism Father ??? Coronary Artery Disease Brother Vitals Last value Range last 24 hrs Temperature Temp: 37.9 ??C (100.2 ??F) Temp: [36.7 ??C (98.1 ??F)-38.4 ??C (101.1 ??F)] Heart Rate Heart Rate: 86 Heart Rate: [84-107] Blood Pressure BP: 109/49 BP: (88-129)/(46-68) Respiratory Rate Resp: 15 Resp: [13-27] SpO2 SpO2: 93 % SpO2: [90 %-98 %] Physical Exam: Gen: NAD, talking in clear sentences. Laying in bed comfortably HEENT: no LAD, oral mucus membranes moist no obvious inflammation Heart: RRR, no murmurs. Radial pulses +2. Lungs: CTAB, breathing non-labored. No wheezes or rhonchi. Good aeration Abd: Soft, non-distended, non-tender x4 quadrants, +bs SKIN: No open areas or redness to both feet Neuro: Moving all extremities. Grossly non-focal Labs: Recent Labs 02/01/19 0022 01/31/19 1855 01/31/19 1800 01/31/19 0534 01/29/19 0443 WBC 28.4* 27.7* -- 10.0* 10.3* HGB 12.3* 12.3* 10.0* 9.9* 13.3* 13.2* HCT 36.7* 29.9* 28.7* 39.0* 38.1* PLATELET 273 214 229 190 201 NEUTROABS 23.60* -- -- 5.15 5.05 Recent Labs 02/02/19 0415 02/01/19 0022 01/31/19 0338 01/29/19 0443 NA -- 140 138 138 K 4.8 Not Perf 4.4 4.6 4.6 CL -- 102 103 105 CO2 -- Not Perf 21* 23 BUN -- 16 17 18 CREATININE -- 1.08 0.81 0.88 GLUCOSE -- 292* -- -- Recent Labs 02/01/19 0022 01/31/19 0338 01/29/19 0443 01/26/19 2221 CALCIUM 8.0* 8.9 8.7 < > 9.4 MAGNESIUM -- -- -- -- 0.71 < > = values in this interval not displayed. Recent Labs 01/26/19 2221 PROT 7.3 ALBUMIN 4.4 AST 24 ALT 32 ALKPHOS 47 BILITOT 0.5 BILIDIR 0.1 Recent Labs 01/31/19 1855 INR 1.5 PT 17.2* PTT 33 Recent Labs 02/01/19 0022 01/27/19 0408 01/26/19 2221 TROPONINT 0.28* <0.01 0.01* CK -- -- 133 Recent Labs 02/01/19 0022 GLUCOSE 292* Assessment: Patient is a 68 y.o. years old male with PMH significant for DM (Last A1C of 7.2%) who was admitted on 01/26/2019 for CABG. Diabetes moderately controlled and currently complicated by stress of surgey. Currently with variability of blood glucose levels while hospitalized requiring adjustment of insulinregimen and DM medications. Midnight to 4 am IV insulin rate was 4.5 units per hour suggesting a basal insulin requirement of 108 units, will give 50 units tonight, continue IV insulin for additional dose finding and give additional lantus if needed in am this will keep in line with his split dosing at home. I added a meal associated insulin however ED changed the start time from noon to 1700 after I signed and rechecked the order so no lunch coverage given. Plan: 1. Lantus 50 units tonight continue IV insulin complete transition in AM 2. 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 Monitoring - continue BG tid ac & hs Diet - low fat/low carb diet Exercise - weight-bearing exercise 30 min/day, as tolerated Thank you for allowing us to provide care for your patient Montserrat Mark BOYD Endocrinology Pager [phone] Plan of Care - Jesus Reynoso, PT - 02/01/2019 2:25 PM EDT Physical Therapy Evaluation Patient profile: Connor Gan is a 68 y.o. male admitted on 01/26/[address] Trip Corona MD. 1 Day Post-Op s/p CABG x 3. Pmhx pertinent for CAD, HTN, HLD, MR, DMII, cardiomyopathy, psoriasis, former smoker. ?? EF- 45% ?? 24 Hour Events: - from OR @ 1999 on epi and levo; both since weaned off - extubated @ 0230 to bipap after a couple rounds of bicarb - last ABG on bipap 05/15 on 40% 7.43/37//24 Patient with the following active problems: Past Medical History: Diagnosis Date ??? CAD (coronary artery disease) ??? Diabetes mellitus ??? Hypertension Past Surgical History: Procedure Laterality Date ??? CREATED BY INTERFACE Entered not Verified Procedure Date: 10/06/2010 ??? CREATED BY INTERFACE No History of Operative Procedures Procedure Date: 10/06/2010 ??? PRO CABG, ARTERIAL, SINGLE N/A 01/31/2019 @CABG, USING ARTERIAL GRAFT;SINGLE ARTERIAL GRAFT (WRVU 33.75) performed by [facility] ??? PRO CABG, ARTERY-VEIN, TWO N/A 01/31/2019 @CABG, TWO VENOUS GRAFTS & ARTERIAL GRAFT (WRVU 7.93) performed by Trip Corona MD at [facility] MAIN OR ??? PRO ENDOSCOPY W/VIDEO-ASST VEIN HARVEST, CABG Right 01/31/2019 ENDOSCOPIC HARVEST VEIN(S) FOR CABG (WRVU 0.31) performed by Trip Corona MD at [facility] MAIN OR Social History: Pt lives alone in a senior apartment with no steps to enter. 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 He reports he uses a cane sometimes at baseline. He was indep with ADL's. His ex- is coming to stay upon d/c to assist. He has pull cords in his apartment. He drives. He has meals provided in the complex if he decides to eat there vs make meals. Precautions/Special Considerations: STERNAL; IJ; a-line; pacing wires; B feet w/neuropathy Mobility and Positioning Recommendations: ?? Pt OOB to chair with rolling walker, 2 assist ?? Please encourage up to chair for meal times as able. Subjective: ???My bottom is killing me.?? Pt expressing pain in bed and increased pain in buttocks once in chair. ? radicular pain. Objective: Pt seen for evaluation today in the [facility]. Pt in bed at start of session; up to chair at end of session. Pain: Number Location At rest 5/10 in supine buttocks With activity 9/10 sitting in chair Buttocks Vital Signs: At Rest With Activity SpO2 (4L) 98 % 95 % BP 98/54 mmHg 95/57 mmHg HR 100 bpm 110 bpm Incentive Spirometer: 750 mL Mental Status: alert, oriented to person, place, and time Skin: sternal dressing intact Musculoskeletal: ROM: grossly WFL's Strength: L knee ext 3-/5; L hip flex 3-/5; L DF 2/5 Sensation: impaired; B neuropathy Bed Mobility: Supine to Sit: max assist for LE's and trunk Transfers: Sit to Stand: min assist x 2; cues to walker Stand to Sit: min assist x 2 Bed to Chair: min assist x 2 with walker Gait: Distance: 6-7 steps to chair Device used: rolling walker Level of assist: Min assist Gait mechanics: decreased step height L LE Stairs: not assessed Balance: Sitting Static: good Sitting Dynamic: good Standing Static: fair with walker Standing Dynamic / Gait: Fair with walker Education: Patient has been educated on Transfers, Breathing exercises, Safety , Gait , Activity pacing/Energy conservation, Role of therapy and Discharge planning and verbalizes understanding. Patient status, treatment, and mobility recommendations discussed with nursing. Assessment: Connor Gan was seen today for physical therapy evaluation. Pt presents today with marked pain, impaired transfers, impaired sensation, impaired breathing mechanics, impaired activity tolerance. Pt in pain in supine and anticipated would improved with mobility. Pain in buttocks worsened with sitting and appears to present like radicular pain, ? From postioning in supine in OR. Pt requires 2 assist for transfer to chair today. Vitals stable but BP on lower side. Requires close hemodynamic monitoring. Evaluation limited by buttock pain and rapid fatigue. Pt needs to be indep upon d/cand he may benefit form continued PT in a rehab setting prior to d/c home. Will continue to assess. The pt would benefit from skilled therapy services while in the hospital to maximize functional abilities. Discharge Recommendations: Based on the current findings, pt may need short rehab stay prior to d/c home alone. Consult Recommendations: No other consults recommended at this time. Equipment needs: TBD; ? walker. he owns cane Goals: To be achieved by 02/06/19: 1. Pt will demonstrate independence with all precautions without cues. 2. Pt. to perform bed mobility independently, log roll 3. Pt. to perform sit to stand and bed to chair transfers with supervision using a front wheeled walker. 4. Pt. to ambulate 160 feet with supervision using a a front wheeled walker. 5. Family or caregiver to demonstrate understanding of therapeutic interventions to support the careof the patient. Plan: Therapy Frequency: 2-4 times/wk for therapy including bed mobility training, gait training, patient/family education, stair training and transfer training. Patient/family understand and agree with plan as stated above. 2017 PT Evaluation Code Rationale: ?? Diagnosis & Pertinent Co-Morbidities, personal factors, and present illness affecting Plan ofCare: (see above); Additional personal factors or co- morbidities that impact plan: ?? Total # of Factors: 0 1-2 3+ x ?? Examination of body system impairments, functional limitations and behaviors, and/or participation restrictions. Addressing 1-2 elements Addressing 3 + elements Addressing 4 + elements x ?? Clinical presentation: See assessment above. Stable/Uncomplicated Evolving/Fluctuating Symptoms Unstable/Unpredictable x ?? Clinical decision making of high complexity based on pt's functional performance as outlined in this evaluation. Total Evaluation Minutes, Physical Therapy: 38(eval; te-f) JESUS REYNOSO, PT Pager: [phone] Physical Therapy Inpatient Rehabilitation Department Brief Op Note - Trip Corona MD - 01/31/2019 7:40 PM EDT Brief Operative Note Patient Name: Connor Gan : [id number] MR#: [id number] Case Date: 01/31/2019 Surgeon: Surgeon(s) and Role: * Trip Corona MD - Primary * Adi Patel PA - Physician Remote Sensing Research Scientist Preoperative diagnosis: CAD, Cardiomyopathy Postoperative diagnosis: CAD, Cardiomyopathy PROCEDURE: CABG X 3, WYLIE-LAD, SVG-OM, SVG- RDPA, EVH GREATER SAPHENOUS VEIN RIGHT LEG, EM Anesthesia: General Output: Estimated Blood Loss: 503 mL Urine Output:: 1175 mL Other Output: (no other output recorded) Drains: 3 CHEST TUBES, 2A-2V WIRES Specimens removed during surgery: NONE Disposition: [facility] Condition: STABLE CONDUCT OF CARDIOPULMONARY BYPASS: Venous Cannula THREE STAGE Arterial cannula 20 EOPA Temperature management: NORMOTHERMIC TPT 97 min/CCT 77 min FINDINGS: TARGETS POOR. RPDA SMALL AND ONLY A SHORT SEGMENT OPEN. CONDUIT OK. WEANED EASILY FROM CPB. EM--LVEF 45-50% Attestation: Case Date: 01/31/2019 I performed this procedure without the involvement of a resident. (Please see the Surgical Encounter Summary for any Implant and Specimen details pertinent to this patient.) Plan of Care - Kary Wang RN - 01/30/2019 12:36 PM EDT Problem: Patient Care Overview Goal: Plan of Care Review Outcome: Ongoing (Interventions Implemented as Appropriate) 01/30/19 1234 Plan of Care Review Progress progress toward functional goals is gradual Coping/Psychosocial Plan Of Care Reviewed With patient Problem: Cardiac: ACS (Acute Coronary Syndrome) (Adult) Goal: Signs and Symptoms of Listed Potential Problems Will be Absent, Minimized or Managed (Cardiac:ACS) Signs and symptoms of listed potential problems will be absent, minimized or managed by discharge/transition of care (reference Cardiac: ACS (Acute Coronary Syndrome) (Adult) CPG). Outcome: Ongoing (Interventions Implemented as Appropriate) 01/30/19 1234 Cardiac: ACS (Acute Coronary Syndrome) Problems Assessed (Acute Coronary Syndrome (ACS)) all Problems Present (Acute Coronary Syndrome (ACS)) cardiovascular structural defects Problem: Cardiac Cath/Percutaneous Coronary Intervention (Adult) Goal: Signs and Symptoms of Listed Potential Problems Will be Absent, Minimized or Managed (Cardiac Cath/Percutaneous Coronary Intervention) Signs and symptoms of listed potential problems will be absent, minimized or managed by discharge/transition of care (reference Cardiac Cath/Percutaneous Coronary Intervention (Adult) CPG). Outcome: Ongoing (Interventions Implemented as Appropriate) 01/30/19 1234 Cardiac Cath/Percutaneous Coronary Intervention Problems Assessed (Cardiac Catheterization) all Problems Present (Cardiac Catheterization) none OUTCOME EVALUATION NOTE: OUTCOME SUMMARY: Pt A+O. No complaints of pain or SOB. Pt SR SB on tele. Pt showered today. Pt ambulating independently. Pulmonary saw pt. Pt going for surgery tomorrow, yellow cardiac surgery folder given to pt and pt did watch surgery video. IS given to and gone over with pt. PLAN MOVING FORWARD: awaiting CABG tomorrow (2nd case) INDIVIDUALIZED FALL PREVENTION INTERVENTIONS: Patient-specific fall risk factors per assessment: [current deficits]: n/a Assistance [level of assistance required for transfers and ambulation]: ind Supervision [direct monitoring required during toileting and ADLs]: int Surveillance [continuous indirect monitoring]: rounds, tele, cont pulse ox Patient-specific fall prevention interventions for sensory deficits provided, if applicable: low bed, call baldwin in reach, rings appropriately, non skid socks when out of bed CPG GOAL OUTCOME EVALUATION: Ongoing Plan of Care - Pan Castro RN - 01/30/2019 5:04 AM EDT Problem: Patient Care Overview Goal: Plan of Care Review Outcome: Ongoing (Interventions Implemented as Appropriate) 01/29/19 1736 01/29/191999 Plan of Care Review Progress progress toward functional goals is gradual -- Coping/Psychosocial Plan Of Care Reviewed With -- patient OUTCOME EVALUATION NOTE: OUTCOME SUMMARY: Uneventful night, slept in between care. No pain or sob reported. VS WNL, see flowsheet. SB/SR on tele, see full report. PLAN MOVING FORWARD: CABG on ? INDIVIDUALIZED FALL PREVENTION INTERVENTIONS: Patient-specific fall risk factors per assessment: [current deficits]: Tele wires Assistance [level of assistance required for transfers and ambulation]: Indep Supervision [direct monitoring required during toileting and ADLs]: Indep Surveillance [continuous indirect monitoring]: Tele, purposeful rounding, pulse ox, call baldwin in reach Patient-specific fall prevention interventions for sensory deficits provided, if applicable: CPG GOAL OUTCOME EVALUATION: ongoing Plan of Care - Kary Wang RN - 01/29/2019 5:38 PM EDT Problem: Patient Care Overview Goal: Plan of Care Review 01/29/191735 Plan of Care Review Progress progress toward functional goals is gradual Coping/Psychosocial Plan Of Care Reviewed With patient Problem: Cardiac: ACS (Acute Coronary Syndrome) (Adult) Goal: Signs and Symptoms of Listed Potential Problems Will be Absent, Minimized or Managed (Cardiac:ACS) Signs and symptoms of listed potential problems will be absent, minimized or managed by discharge/transition of care (reference Cardiac: ACS (Acute Coronary Syndrome) (Adult) CPG). Outcome: Ongoing (Interventions Implemented as Appropriate) 01/29/191735 Cardiac: ACS (Acute Coronary Syndrome) Problems Assessed (Acute Coronary Syndrome (ACS)) all Problems Present (Acute Coronary Syndrome (ACS)) cardiovascular structural defects Problem: Cardiac Cath/Percutaneous Coronary Intervention (Adult) Goal: Signs and Symptoms of Listed Potential Problems Will be Absent, Minimized or Managed (Cardiac Cath/Percutaneous Coronary Intervention) Signs and symptoms of listed potential problems will be absent, minimized or managed by discharge/transition of care (reference Cardiac Cath/Percutaneous Coronary Intervention (Adult) CPG). Outcome: Ongoing (Interventions Implemented as Appropriate) 01/29/191735 Cardiac Cath/Percutaneous Coronary Intervention Problems Assessed (Cardiac Catheterization) all Problems Present (Cardiac Catheterization) none OUTCOME EVALUATION NOTE: OUTCOME SUMMARY: Pt A+O. Pt had family visiting today. Pt independent with ambulation. SR on tele. Vein mapping done today and ABG obtained. pulm consulted. PLAN MOVING FORWARD: plan for CABG ? INDIVIDUALIZED FALL PREVENTION INTERVENTIONS: Patient-specific fall risk factors per assessment: [current deficits]: n/a Assistance [level of assistance required for transfers and ambulation]: Ind Supervision [direct monitoring required during toileting and ADLs]: int Surveillance [continuous indirect monitoring]: rounds, tele, cont pulse ox. Patient-specific fall prevention interventions for sensory deficits provided, if applicable: low bed, call baldwin in reach, rings appropriately, non skid socks when out of bed CPG GOAL OUTCOME EVALUATION: ongoing Initial Assessments - Daysi Vega RN - 01/29/2019 10:10 AM EDT Office of Care Management Initial Assessment Geriatric Psychiatrist DAYSI VEGA, RN,MA,ACM:Reviewed record and in Cardiology Rounds w MD team,CMs, psychology clinician, [employer], PT Source of Information: eDH,team, pt interview Introduced self/reviewed role; services accepted. Reason for Hospitalization: Reason for Admission as Stated by Patient: increasing chest pain over the last couple weeks Past Medical History: Diagnosis Date ??? CAD (coronary artery disease) ??? Diabetes mellitus ??? Hypertension Hospitalizations Within the Past 30 Days: no Anticipated Length Of Stay (If known): 7-10 Current Decision-Making Capacity: intact Advance Care Planning: [facility] has done and [facility] has a copy and primary DPOAH is ex /friend Shraddha Esteves and daughter Beryl Gan as alternate. Current Coping/Education/Information Needs: smiling doing well though has some concerns about payments for this hospitalization. Discussed. Current Functional Ability: indep Functional Status Prior to Admission: indep Home Environment:apt w elevator and then all on same level; senior housing and has grab bars in bathroom Social & Family Supports/Community Resources: Friend Shraddha who said he could come stay w her if needed post op; dtr [facility] History:denies Substance Use/Abuse: Quit smoking 1998. ETOH- very occasional Other Pertinent/Service Specific Information: none Health/Prescription Coverage: Primary Insurance: MEDICARE Secondary Insurance:He thinks he has [employer] as well as financial support from [facility] Prescription Coverage: Medicare D +VPharm(Vt aid for prescription program) Preferred Pharmacy: not addresssed Other: Thought he gave his info to [facility] long before this adm and also thought he was approved for financial assist w [facility]. Primary Care Provider: Taye Ron MD [phone] Patient/Caregiver Goals of Treatment:Get home,back on my own Potential Needs for Transition of Care: Rehab/SNF: Discussed generally that this is sometimes needed post CABG and that was one of the reasons helpful to know about supplement to his medicare. Home Health: ([facility]) DME: none Dialysis: NA Community Resources: will provide VISITOR INFORMATION ASSISTANT choices Transportation: dtr or friend Other: none Anticipated Barriers to Discharge/Special Considerations: Financial burden and barrier if needs SNF placement unless he does have medicare supplement Assessment: Pt feels well informed and is able to articulate his reason for hospitalization . Has identified support if needed post op, though hopes to go home on own with home health support of RN. Plan: Referral to [facility] to f/u re secondary ins and or need for medicaid. A member of the Care Management team will continue to monitor progress, follow for continuity of care and assist with transition of care planning. DAYSI VEGA RN,MA,ACM for RNCM Pager: [phone] Consult Note - Marine Teran MD - 01/29/2019 9:00 AM EDT Images from the original note were not included. INITIAL PULMONOLOGY CONSULTATION NOTE SECTION OF PULMONARY/CRITICAL CARE MEDICINE Patient Name: Connor Gan : 1950 Medical Record: [id number] Date of Service: 01/29/2019 Hospital Day #: Hospital Day: 4 Location: [address] Requesting Provider: Lizz Cabrera MD I have seen and examined the patient, providing kuo components as outlined below. I have reviewed the resident note by Dr. Khan below; my evaluation of the patient is below and includes any correctionsor additions: Briefly, Mr Gan is a 68 yo male with known hx of ischemic cardiomyopathy and WESLEY,non treated that presented with angina at rest and was discovered to have a NSTEMI, Type 1 and presence of 3 vessel disease on a L cardiac cath. He has been evaluated by CT surgery and is being considered for multi vessel bypass. Pulmonary service is asked to comment on his preoperative evaluation and risk stratification. Please see extensive H and P below. Patient was seen and evaluated independently Acute Pulmonary Problems Ischemic cardiomyopathy, EF 45% HFrEF 4 pillow orthopnea Untreated WESLEY, normal CO2 on morning ABG during this hospitalization Former smoking status/exposure, quit 25 years ago Dyspnea on exertion and weight gain of 10 lbs over the last 2 months Recommend the following: Bedside spirometry and 6 min walk test for MONICA index by respiratory CXR PA and lat Preop anesthesia eval, I would expect that patient would not be able to lay down flat given hx during intubation Intraoperative euvolemia to dry status preferred, avoid aggressive fluid resuscitation due to high risk of pulmonary edema Intraoperative EM with PA pressure measurements and documentation post op Transition to BIPAP after liberation from mech vent, 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 and can be maintained on CPAP for WESLEY Outpatient full PFT's as well as repeat polysomnography with sleep eval post op For now, will await results of CXR and jerica prior to recommendations of any respiratory medications Continue diuresis Marine Teran MD,MPH Interventional Pulmonary Pulmonary and Critical Care Medicine 12:16 PM 01/29/2019 Reason for Consultation: Shortness of breath, pre-operative evaluation History of present illness: 68 y/o M with h/o CAD and ICM (LVEF-45% 04/2018) improved from 25% (2017), DM-2 (Insulin dependent), HTN, HLD,and Psoriasis (on Adalimumab) who was transferred from [facility] for crescendo symptoms of angina with elevated troponins for further evaluation. He has had worsening exertional shortness of breath for three weeks with frequent episodes of chest discomfort at rest and with minimal exertion requiring BID NTG. He denies requiring SL NTG prior to this. Lately, his SOB has prevented him from engaging in cardiac rehab/walking from his car to the rehab center. He underwent a cardiac cath on 01/27 which showed diffuse disease with calcification. EF was 40% on his latest 2D Echo (improved from prior after optimization of medical therapy) Of note, he does have a 34 pack year smoking history. Denies recurrent or recent respiratory infections. 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 Denies respiratory complications from Adalimumab/Methotrexate for Psoriasis. Lately reports wheezing with exertion and 4 pillow orthopnea; wakes up a few times in the night with?apneic/PND episodes. Does snore, feels tired during the day and frequently naps during the day. Review of Systems: A 12 point ROS was negative aside from as listed in the HPI. Past Medical/Surgical History: Past Medical History: Diagnosis Date ??? CAD (coronary artery disease) ??? Diabetes mellitus ??? Hypertension Past Surgical History: Procedure Laterality Date ??? CREATED BY INTERFACE Entered not Verified Procedure Date: 10/06/2010 ??? CREATED BY INTERFACE No History of Operative Procedures Procedure Date: 10/06/2010 Allergies: Allergies Allergen Reactions ??? Methotrexate Other (See Comments) Increased bleeding, lethargic ??? Shellfish Containing Products Anaphylaxis and Other (See Comments) Numbness, tingling of the tongue. Never had any problem with contrast and never used steroids before cath ??? Cis Free Text Allergy Hymenoptera (Bee) Stings. ??? Shellfish Derived Family History: Family History Problem Relation Age of Onset ??? Pulmonary Embolism Father ??? Coronary Artery Disease Brother Social History: Social History Tobacco Use ??? Smoking status: Former Smoker Types: Cigarettes Last attempt to quit: 01/11/1999 Years since quittin.0 ??? Smokeless tobacco: Never Used Substance Use Topics ??? Alcohol use: Not Currently Medications: Scheduled Meds: ??? aspirin 81 mg Oral Daily ??? atorvastatin 80 mg Oral QPM ??? gabapentin 300 mg Oral TID ??? isosorbide mononitrate 120 mg Oral Daily ??? lisinopril 10 mg Oral Daily ??? magnesium oxide 400 mg Oral BID ??? metoprolol succinate 50 mg Oral Daily ??? spironolactone 50 mg Oral Daily ??? sodium chloride 0.9 % (flush) 5 mL Intravenous BID ??? sodium chloride 0.9 % (flush) 5 mL Intravenous BID ? ? insulin lispro 3-12 Units Subcutaneous 4 Times Daily AC & HS ??? insulin lispro 20 Units Subcutaneous TID WC ??? insulin glargine 20 Units Subcutaneous 2 times per day ??? famotidine 20 mg Oral Daily Continuous Infusions: PRN Meds: midazolam (PF), atropine, HYDROmorphone, acetaminophen, nitroGLYcerin, traZODone, Glucose 40% oral gel OR dextrose OR glucagon (human recombinant), sodium chloride 0.9 % (flush), lidocaine, sodium chloride 0.9 % (flush) Labs: Lab Results Component Value Date WBC 10.3 (H) 01/29/2019 RBC 4.33 (L) 01/29/2019 HGB 13.2 (L) 01/29/2019 HCT 38.1 (L) 01/29/2019 MCV 88.0 01/29/2019 MCH 30.5 01/29/2019 MCHC 34.6 01/29/2019 PLATELET 201 01/29/2019 RDWCV 13.2 01/29/2019 LFT's No results found for: ALKPHOS, AST, ALBUMIN, BILIDIR, BILITOT, ALT, PROT LFT's No results found for: ALKPHOS, AST, ALBUMIN, BILIDIR, BILITOT, ALT, PROT Coags No results found for: INR, PT, PTT No results for input(s): GLUCOSE in the last 168 hours. Objective: Last value Range last 24 hrs Temperature Temp: 37 ??C (98.6 ??F) Temp: [36.6 ??C (97.9 ??F)-37 ??C (98.6 ??F)] Heart Rate Heart Rate: 74 Heart Rate: [70-81] Blood Pressure BP: 138/74 BP: (90-138)/(55-80) Respiratory Rate Resp: 16 Resp: [16-18] SpO2 SpO2: 96 % SpO2: [96 %-98 %] Admit Weight 131.6 kg General: This is a 68 y.o. male, NAD, obese HEENT: Moist mucous membranes Neck: Supple, Mallampati 3 Lymphatics: No obvious cervical lymphadenopathy Cardiovascular: Nl s1/s2, rrr, no murmurs, no gallops Respiratory: Distant breath sounds, no adventitious LS GI: soft, nt, distended, +bs Musculoskeletal: Normal bulk and tone Extremities: trace LE edema noted, no clubbing Integument: Diffuse psoriatic skin rash Neurologic: Alert and oriented, moves all extremities appropriately, no obvious focal deficits Psychologic: Normal mood and affect. Pertinent Diagnostics: Pertinent vitals: Borderline hypertensive, WNL, on room air. Weighed 289lb at presentation, is currently 285 (down 4 lbs), net -2L this admission. Pertinent labs ProBNP 349 at admission, LA 2.9 today. TSH 15.65 at admission. EKG: Variable LA interval, Q waves on inferior leads. 2D Echo: LV systolic function reduced EF 45%, LWMA+ PASP is not calculated due to inadequate regurgitant jet. However he does not have a dilated RV. The RA is not well visualized. Assessment: Connor Gan is a 68 y.o. male admitted for crescendo angina with dyspnea on exertion, found to have triple vessel disease on cardiac catheterization. He is scheduled to undergo a CABG procedure this week and Pulmonary is consulted for evaluation of his dyspnea with exertion and pre-operative riskstratification. Recommendations: Preoperative risk stratification Would obtain CXR (PA and Lateral) and Spirometry prior to surgery to evaluate for baseline anatomic abnormalities and obstructive defects respectively. Anthony score for risk of post-operative respiratory failure is 6.44% (Cardiac disease, Severe systemic disease and partially dependent functional status) Anticipate that patient may have a difficult airway given his Mallampati score, facial structure (russell likely to cause poor mask seal) and 4 pillow orthopnea. He may be a good candidate for extubationto BiPAP. Obstructive Sleep Apnea STOP BANG score 7; high risk for WESLEY; Airway Mallampati 3 Morning ABG with normal pH, no hypercapnia pCO2 34, pO2 82. Patient reports undergoing a sleep study in the that was abnormal but never used CPAP. He may be formally evaluated for WESLEY post-operatively as an out-patient. Thank you for this consult, we will continue to follow along with you. Lynnette Khan MD, 01/29/2019, 9:00 AM Resident, Pulmonary Medicine Pager: [phone] Plan of Care - Pan Castro RN - 01/29/2019 4:14 AM EDT Problem: Patient Care Overview Goal: Plan of Care Review Outcome: Ongoing (Interventions Implemented as Appropriate) 01/28/19199901/29/19 3169 Plan of Care Review Progress -- progress toward functional goals is gradual Coping/Psychosocial Plan Of Care Reviewed With patient -- OUTCOME EVALUATION NOTE: OUTCOME SUMMARY: Uneventful night. VS WNL, see flowsheet. NSR on tele, see full report. No pain or sob reported. Voids with no issue. PLAN MOVING FORWARD: CABG workup. Pulmonary consult. ABG. INDIVIDUALIZED FALL PREVENTION INTERVENTIONS: Patient-specific fall risk factors per assessment: [current deficits]: Tele wires, environment Assistance [level of assistance required for transfers and ambulation]: Indep Supervision [direct monitoring required during toileting and ADLs]: Indep Surveillance [continuous indirect monitoring]: Tele, pulse ox, purposeful rounding, call baldwin in reach Patient-specific fall prevention interventions for sensory deficits provided, if applicable: CPG GOAL OUTCOME EVALUATION: ongoing Plan of Care - Kary Wang RN - 01/28/2019 5:58 PM EDT Problem: Patient Care Overview Goal: Plan of Care Review Outcome: Ongoing (Interventions Implemented as Appropriate) 01/28/191754 Plan of Care Review Progress progress toward functional goals is gradual Coping/Psychosocial Plan Of Care Reviewed With patient Problem: Cardiac: ACS (Acute Coronary Syndrome) (Adult) Goal: Signs and Symptoms of Listed Potential Problems Will be Absent, Minimized or Managed (Cardiac:ACS) Signs and symptoms of listed potential problems will be absent, minimized or managed by discharge/transition of care (reference Cardiac: ACS (Acute Coronary Syndrome) (Adult) CPG). Outcome: Ongoing (Interventions Implemented as Appropriate) 01/28/191754 Cardiac: ACS (Acute Coronary Syndrome) Problems Assessed (Acute Coronary Syndrome (ACS)) all Problems Present (Acute Coronary Syndrome (ACS)) cardiovascular structural defects Problem: Cardiac Cath/Percutaneous Coronary Intervention (Adult) Goal: Signs and Symptoms of Listed Potential Problems Will be Absent, Minimized or Managed (Cardiac Cath/Percutaneous Coronary Intervention) Signs and symptoms of listed potential problems will be absent, minimized or managed by discharge/transition of care (reference Cardiac Cath/Percutaneous Coronary Intervention (Adult) CPG). Outcome: Ongoing (Interventions Implemented as Appropriate) 01/28/191754 Cardiac Cath/Percutaneous Coronary Intervention Problems Assessed (Cardiac Catheterization) all Problems Present (Cardiac Catheterization) none OUTCOME EVALUATION NOTE: OUTCOME SUMMARY: Pt A+O. No complaints of pain or SOB. SR on tele with rare bursts of pacs. Pt ambulated independently. Right radial site remains CDI, CSM intact. 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 Patient-specific fall prevention interventions for sensory deficits provided, if applicable: low bed, call baldwin in reach, rings appropriately, non skid socks when out of bed CPG GOAL OUTCOME EVALUATION: Ongoing Consult Note - Trip Corona MD - 01/28/2019 9:26 AM EDT Cardiothoracic Surgery Consultation Connor Gan is seen at the request of Dr. Cabrera for the evaluation of CAD. HPI: Connor Gan is a 68 y.o. year old male who has been followed for many years with CAD and cardiomyopathy. HE was admitted to [facility] in June of 2017. At that time he had cath and was told he was not a candidate for CABG or PCI. His EF was 30% at that time. HE has been treated medically since. Overthe last month or two he has noted worsening shortness of breath, which occurs with activity, and wor sening frequency of chest pains, which seems to occur mostly at night. HE was admitted and transferred. Troponins are normal. Cath shows VERY DIFFUSE coronary disease with calcification. ECHO shows LVEF 40% or greater, but images are poor. WE are asked to see him regarding CABG. Problem List: Patient Active Problem List Diagnosis ??? Atherosclerosis of coronary artery Overview: Had Catheterization in 2005 at [facility] -- showed two vessel disease that was not intervened upon (LAD and Circ). [facility] 06/15 showed MVD, not candidate for CABG ??? Exertional angina ??? Ischemic cardiomyopathy ??? Hypertension ??? Dyslipidemia ??? Mitral regurgitation ??? HLD (hyperlipidemia) ??? Acute systolic heart failure ??? NSTEMI (non-ST elevated myocardial infarction) ??? Type 2 diabetes mellitus with complication Dxd 1984 ??? Psoriasis Past Medical History: Past Medical History: Diagnosis Date ??? CAD (coronary artery disease) ??? Diabetes mellitus ??? Hypertension Past Surgical History: Past Surgical History: Procedure Laterality Date ??? CREATED BY INTERFACE Entered not Verified Procedure Date: 10/06/2010 ??? CREATED BY INTERFACE No History of Operative Procedures Procedure Date: 10/06/2010 Family History: Family History Problem Relation Age of Onset ??? Pulmonary Embolism Father ??? Coronary Artery Disease Brother Social History: Former smoker who quit in 1998, lives alone no longer working, has ex- and 2 children nearby Allergies: Allergies Allergen Reactions ??? Methotrexate Other (See Comments) Increased bleeding, lethargic ??? Shellfish Containing Products Anaphylaxis and Other (See Comments) Numbness, tingling of the tongue. Never had any problem with contrast and never used steroids before cath ??? Cis Free Text Allergy Hymenoptera (Bee) Stings. ??? Shellfish Derived Meds Prior to Admission: Medications Prior to Admission Medication Sig Dispense Refill Last Dose ??? traZODone (DESYREL) 50 mg Tablet Take 50 mg by mouth. 01/25/2019 at Unknown time ??? spironolactone (ALDACTONE) 50 mg Tablet Take 50 mg by mouth Daily. 01/26/2019 at Unknown time ??? metoprolol succinate (TOPROL-XL) 25 mg Tablet Sustained Release 24 hr Take 50 mg by mouth Daily.01/26/2019 at Unknown time ??? metFORMIN (GLUCOPHAGE) 1,000 mg Tablet Take 1,000 mg by mouth. 01/26/2019 at Unknown time ??? magnesium oxide (MAG-OX) 400 mg (241.3 mg magnesium) Tablet Take 400mg in the morning and 800mg at night 01/26/2019 at Unknown time ??? liraglutide (VICTOZA) 0.6 mg/0.1 mL (18 mg/3 mL) Pen Injector Inject 0.6 units into the skin daily for 1 week then 1.2mg daily for 1 week then 1.8mg daily. 01/26/2019 at Unknown time ??? gabapentin (NEURONTIN) 300 mg Capsule Take 300 mg by mouth Three times a day. 01/26/2019 at Unknown time ??? aspirin 81 mg Tablet, Delayed Release (E.C.) Take 81 mg by mouth Daily. 01/26/2019 at Unknown time ??? nitroGLYcerin (NITROSTAT) 0.4 mg Tablet, Sublingual Place 1 tablet under the tongue every 5 minutes as needed for Chest pain. 90 tablet 12 01/25/2019 at Unknown time ??? isosorbide mononitrate (IMDUR) 120 mg Tablet Sustained Release 24 hr Take 1 tablet by mouth daily. 90 tablet 3 01/26/2019 at Unknown time ??? atorvastatin (LIPITOR) 80 mg Tablet Take 80 mg by mouth daily. 01/25/2019 at Unknown time ??? insulin aspart (NOVOLOG) Insulin Pen Inject 20 Units subcutaneously 3 times daily (with meals). 01/26/2019 at Unknown time ??? insulin glargine (LANTUS) Solution Inject 38 Units subcutaneously 2 times daily. 01/26/2019 at Unknown time ??? Temple-3 Fatty Acids (FISH OIL) 500 mg Cap Take by mouth. 01/26/2019 at Unknown time ??? lisinopril (PRINIVIL;ZESTRIL) 40 mg tablet (Patient taking differently: 10) 01/26/2019 at Unknowntime ??? ADALIMUMAB (HUMIRA SUBQ) Past Month at Unknown time ??? cholecalciferol, Vitamin D3, 2,000 unit Capsule Take 1 capsule by mouth Daily. Unknown at Unknown time ??? acetaminophen (TYLENOL) 500 mg Tablet Take 500 mg by mouth Every 6 hours as needed. Unknown at Unknown time ??? blood sugar diagnostic strips (Grovac ULTRA TEST) Strip Use to test blood sugar 4 times daily,diag code E11.9 400 each 3 Unknown at Unknown time ??? CIS Free Text Med - Aspirin Unknown at Unknown time ??? multivitamin (THERAGRAN) tablet Unknown at Unknown time ??? diphenhydrAMINE-Acetaminophen (NON-ASPIRIN PM) 25-500 mg Tab Unknown at Unknown time Current Meds: Scheduled Meds: ??? aspirin 81 mg Oral Daily ??? atorvastatin 80 mg Oral QPM ??? gabapentin 300 mg Oral TID ??? isosorbide mononitrate 120 mg Oral Daily ??? lisinopril 10 mg Oral Daily ??? magnesium oxide 400 mg Oral BID ??? metoprolol succinate 50 mg Oral Daily ??? spironolactone 50 mg Oral Daily ??? sodium chloride 0.9 % (flush) 5 mL Intravenous BID ??? sodium chloride 0.9 % (flush) 5 mL Intravenous BID ? ? insulin lispro 3-12 Units Subcutaneous 4 Times Daily AC & HS ??? insulin lispro 20 Units Subcutaneous TID WC ??? insulin glargine 20 Units Subcutaneous 2 times per day ??? famotidine 20 mg Oral Daily Continuous Infusions: PRN Meds:.midazolam (PF), atropine, HYDROmorphone, acetaminophen, nitroGLYcerin, traZODone, Glucose 40% oral gel OR dextrose OR glucagon (human recombinant), sodium chloride 0.9 % (flush), lidocaine, sodium chloride 0.9 % (flush) Physical Exam: Last value Range last 24 hrs Temperature Temp: 36.7 ??C (98.1 ??F) Temp: [36.5 ??C (97.7 ??F)-37.2 ??C (99 ??F)] Heart Rate Heart Rate: 69 Heart Rate: [60-80] Blood Pressure BP: 118/70 BP: (93-123)/(46-83) Respiratory Rate Resp: 18 Resp: [14-18] SpO2 SpO2: 98 % SpO2: [95 %-100 %] Current Weight Weight: 130.6 kg (287 lb 14.7 oz) Admit Weight 131.6 kg Constitutional:Well appearing in no acute distress. Skin: Warm, well perfused. HEENT: within normal limits. NC/AT EOMI Neck: supple, no JVD, no bruit. Heart: regular rate and rhythm, without murmurs. Lungs: distant breath sounds Abdomen: soft, nontender, active bowel sounds, no masses noted. Extremities: FROM, unable to feel distal pulses, no obvious varicose veins, trace edema Neuro exam: Alert and oriented x 3. Strength grossly normal. Diagnositcs: Recent Labs 01/27/19 0408 01/26/19 2221 WBC 11.0* 12.4* HGB 12.6* 14.1 HCT 37.9* 41.6 NA 137 136 K 4.1 4.5 CL 103 101 CO2 21* 22 BUN 21* 22* CREATININE 0.84 0.94 Assessment and Plan: Connor Gan is a 68 yo male diabetic with very diffuse 3vd and waxing and waning cardiomyopathy. His target vessels are very poor for both PCI and CABG, as he has diffuse distal disease in all target areas for revascularization. This means that the benefit of CABG is less clear either in the primary ability of CABG to relieve angina or in the durability of the effect. There is no way to estimatethe chances of success. It is possible CABG could make things worse, given the calcification seen inthe vessels and the small size of the targets. All that being said, we won't know if CABG will help until he has it. If he wants to have CABG surgery, now would be the time. I think he will not be a can didate for bypass in the future. I discussed these issues with him open and honestly. If he is willing to take the chance, we would proceed with CABG. In the meantime, he needs vein mapping of both legs. He should have pulmonary consultation, as I strongly suspect he has superimposed pulmonary disease. HE would need to wait until towards the end of the week for surgery anyways, given plavix. Plan of Care - Rosaura Beard RN - 01/28/2019 4:24 AM EDT Problem: Patient Care Overview Goal: Plan of Care Review 01/27/19 0250 01/27/191999 Plan of Care Review Progress no change -- Coping/Psychosocial Plan Of Care Reviewed With -- patient OUTCOME EVALUATION NOTE: OUTCOME SUMMARY: Pt A&Ox4, denies pain, SOB or new issues overnight. VS as documented, slept between care. Telemetry reviewed, see tele report. Using urinal at bedside PLAN MOVING FORWARD: Discuss CABG vs PCI, ? D/c home INDIVIDUALIZED FALL PREVENTION INTERVENTIONS: Patient-specific fall risk factors per assessment: [current deficits]: Telemetry cords, cont pulse ox Assistance [level of assistance required for transfers and ambulation]: SBA Supervision [direct monitoring required during toileting and ADLs]: Eyes on Surveillance [continuous indirect monitoring]: Telemetry, cont pulse ox Patient-specific fall prevention interventions for sensory deficits provided, if applicable: Non skids socks when OOB, room near nurses station, purposeful rounding, personal belongings within reach. [facility] GOAL OUTCOME EVALUATION: Goal: Fall Prevention-Safe Patient Handling 01/27/191999 Activity Activity Type activity adjusted per tolerance Activity Assistance Provided assistance, stand-by Assistive Device Utilized none Peterson Fall Risk History of Falling 0 Secondary Diagnosis 15 Ambulatory Aids 0 Intravenous Therapy/Heparin/Saline Lock 20 Gait/Transferring 0 Mental Status 0 Score 35 OTHER Peterson Fall Risk Med Restraint Interventions Safety Promotion/Fall Prevention activity supervised;safety round/check completed;nonskid shoes/slippers when out of bed Positioning Body Position independent Goal: Infection Control 01/27/191999 Safety Interventions Isolation Precautions standard precautions maintained Infection Prevention rest/sleep promoted;equipment surfaces disinfected Coping Strategies Supportive Measures active listening utilized;self-care encouraged Goal: Discharge Needs Assessment 01/27/19 0250 Discharge Needs Assessment Concerns To Be Addressed no discharge needs identified Readmission Within The Last 30 Days no previous admission in last 30 days Op Note - Taisha Watson MD - 01/27/2019 12:33 PM EDT [facility] Operative Note Patient Name: Connor Gan : [id number] MR#: [id number] Case Date: 01/27/2019 Surgeon: Surgeon(s) and Role: * Taisha Watson MD - Primary * David Castro PA - Physician Remote Sensing Research Scientist Preoperative diagnosis: nstemi Postoperative diagnosis: NSTEMI, with diffuse 3 vessel disease, LVEDP 11 mmHg Procedure(s) (LRB): CARDIAC CATHETERIZATION (N/A) Access: Radial provided good support for procedure. 6 Fr RRA with TR band in place, good hemostasis. The patient tolerated the procedures smoothly and was transferred from the cardiac catheterization lab to the next level of care in stable condition, without pain. No evident early complications. Results discussed with service rfid technician Dr Lizz Cabrera, and with the patient and their family. Letter sent to referring rfid technician, Dr Lambert. A time-out was conducted prior to the start of the procedure to verify the correct patient and procedure, procedure location, and all relevant critical information. Full report to follow. TAISHA WATSON MD Plan of Care - Galindo Bell MD - 01/27/2019 7:19 AM EDT Images from the original note were not included. Cardiac cath Pre Procedure Note The indications, expected benefits and potential risks of heart catheterization were reviewed in detail with the patient. The potential for , heart attack, stroke, kidney failure, hemorrhage, allergic reaction, vascular complications and infection were reviewed in detail. The possibility of stenting and other percutaneous intervention with associated risk was reviewed. The possible need for emergent coronary artery bypass surgery was reviewed. After a discussion about the above, and having answered all questions posed, the patient was provided with a consent which was reviewed and signed. ASA: 3: Patient with severe systemic disease Mallampati: IV: none of the structures can be seen Sedation Plan: moderate (conscious sedation) Assessment and Plan: Proceed with cardiac cath today, see H & P from yesterday for further details. Galindo Bell MD 01/27/2019 Pager [phone] Plan of Care - Joe Mccall RN - 01/27/2019 3:28 AM EDT Problem: Patient Care Overview Goal: Plan of Care Review Outcome: Ongoing (Interventions Implemented as Appropriate) 01/26/19 2100 01/27/19 0250 Plan of Care Review Progress -- no change Coping/Psychosocial Plan Of Care Reviewed With patient -- OUTCOME EVALUATION NOTE: OUTCOME SUMMARY: Pt admitted to [facility] from [facility] with stable VS, A+Ox4, and 1st deg AVB, HR in 80's. Pt on Heparin gtt,no events en route. Pts states he hasn't had chest pain since last night. Dim lung sounds on RA, satof 97%. First troponin drawn at resulted 0.01. Pt educated on course of admission. Currently still chest pain free on heparin gtt. NPO for possible cardiac cath. PLAN MOVING FORWARD: NPO for potential cath. INDIVIDUALIZED FALL PREVENTION INTERVENTIONS: Patient-specific fall risk factors per assessment: [current deficits]: General weakness. Tele. IV line. Assistance [level of assistance required for transfers and ambulation]: SBA. Supervision [direct monitoring required during toileting and ADLs]: SBA. Surveillance [continuous indirect monitoring]: Hourly rounding. Patient-specific fall prevention interventions for sensory deficits provided, if applicable: Yes. Assistance with ADLs. C[facility] GOAL OUTCOME EVALUATION: Goal: Fall Prevention-Safe Patient Handling 01/26/19209901/27/19249 Activity Activity Type -- activity adjusted per tolerance Restraint Interventions Safety Promotion/Fall Prevention activity supervised -- Goal: Infection Control 01/26/192099 Safety Interventions Isolation Precautions standard precautions maintained Infection Prevention environmental surveillance performed Coping Strategies Supportive Measures active listening utilized;counseling provided;decision- making supported;goal setting facilitated;positive reinforcement provided;problem solving facilitated;relaxation techniques promoted;self-care encouraged;self-reflection promoted;self-responsibility promoted;verbalization of feelings encouraged Goal: Discharge Needs Assessment 01/27/19249 Discharge Needs Assessment Concerns To Be Addressed no discharge needs identified Readmission Within The Last 30 Days no previous admission in last 30 days Goal: Interdisciplinary Rounds/Family Conf 01/27/19249 Interdisciplinary Rounds/Family Conf Participants nursing;patient;physician Problem: Cardiac: ACS (Acute Coronary Syndrome) (Adult) Intervention: Optimize Myocardial Oxygenation/Perfusion 01/27/19249 Activity Activity Type activity adjusted per tolerance Intervention: Prevent/Manage Thrombi/Emboli 01/26/192099 Support Surgical/Anesthesia Recovery VTE Prevention/Management anticoagulant therapy Intervention: Support Psychosocial Response to Life-changing Event/Hospitalization 01/26/192099 Coping Strategies Supportive Measures active listening utilized;counseling provided;decision- making supported;goal setting facilitated;positive reinforcement provided;problem solving facilitated;relaxation techniques promoted;self-care encouraged;self-reflection promoted;self-responsibility promoted;verbalization of feelings encouraged Intervention: Monitor/Manage Fluid Balance 01/26/192099 Safety Interventions Medication Review/Management medications reviewed Goal: Signs and Symptoms of Listed Potential Problems Will be Absent, Minimized or Managed (Cardiac:ACS) Signs and symptoms of listed potential problems will be absent, minimized or managed by discharge/transition of care (reference Cardiac: ACS (Acute Coronary Syndrome) (Adult) CPG). 01/27/19249 Cardiac: ACS (Acute Coronary Syndrome) Problems Assessed (Acute Coronary Syndrome (ACS)) all Problems Present (Acute Coronary Syndrome (ACS)) none documented in this encounter Plan of Treatment Upcoming Encounters Date Type Specialty Care Team Description 04/27/2022 Tech Visit Vascular Surgery Anais Singh 04/27/2022 Office Visit Vascular Surgery Sulema Fajardo MD [facility] [address] VASCULAR SURGERY [place], [place] [address] (Wo rk) 05/18/2022 Office Visit Dermatology Alejandro Reese MD [address] DERMATOLOGY [place], [place] [address] (Wo rk) Scheduled Referrals Name Type Priority Associated Diagnoses Order S chedule Referral to Outpatient Referral Routine S/P CABG (coronary Or dered: Cardiac Rehab artery bypass graft) 2018 documented as of this encounter Procedures Procedure Name Priority Date/Time Associated Diagnosis Comme nts POCT GLUCOSE Routine 02/06/2019 11:49 Results for this AM EDT procedure are i n the results section. POTASSIUM Routine 02/06/2019 8:20 Results for this AM EDT procedure are i n the results section. POCT GLUCOSE Routine 02/06/2019 7:47 Results for this AM EDT procedure are i n the results section. POCT GLUCOSE Routine 02/06/2019 5:00 Results for this AM EDT procedure are i n the results section. POCT GLUCOSE Routine 02/05/2019 11:18 Results for this PM EDT procedure are i n the results section. POCT GLUCOSE Routine 02/05/2019 7:57 Results for this PM EDT procedure are i n the results section. POCT GLUCOSE Routine 02/05/2019 4:21 Results for this PM EDT procedure are i n the results section. POCT GLUCOSE Routine 02/05/2019 2:17 Results for this PM EDT procedure are i n the results section. POCT GLUCOSE Routine 02/05/2019 11:44 Results for this AM EDT procedure are i n the results section. POCT GLUCOSE Routine 02/05/2019 11:05 Results for this AM EDT procedure are i n the results section. POCT GLUCOSE Routine 02/05/2019 10:34 Results for this AM EDT procedure are i n the results section. POCT GLUCOSE Routine 02/05/2019 10:10 Results for this AM EDT procedure are i n the results section. POCT GLUCOSE Routine 02/05/2019 9:10 Results for this AM EDT procedure are i n the results section. POCT GLUCOSE Routine 02/05/2019 8:05 Results for this AM EDT procedure are i n the results section. POTASSIUM Routine 02/05/2019 7:08 Results for this AM EDT procedure are i n the results section. POCT GLUCOSE Routine 02/05/2019 7:00 Results for this AM EDT procedure are i n the results section. POCT GLUCOSE Routine 02/05/2019 5:06 Results for this AM EDT procedure are i n the results section. POCT GLUCOSE Routine 02/05/2019 4:03 Results for this AM EDT procedure are i n the results section. POCT GLUCOSE Routine 02/05/2019 3:03 Results for this AM EDT procedure are i n the results section. POCT GLUCOSE Routine 02/05/2019 2:04 Results for this AM EDT procedure are i n the results section. POCT GLUCOSE Routine 02/05/2019 1:02 Results for this AM EDT procedure are i n the results section. POCT GLUCOSE Routine 02/05/2019 12:05 Results for this AM EDT procedure are i n the results section. POCT GLUCOSE Routine 02/04/2019 11:02 Results for this PM EDT procedure are i n the results section. POCT GLUCOSE Routine 02/04/2019 10:11 Results for this PM EDT procedure are i n the results section. POCT GLUCOSE Routine 02/04/2019 9:34 Results for this PM EDT procedure are i n the results section. POCT GLUCOSE Routine 02/04/2019 8:36 Results for this PM EDT procedure are i n the results section. POCT GLUCOSE Routine 02/04/2019 7:16 Results for this PM EDT procedure are i n the results section. POCT GLUCOSE Routine 02/04/2019 6:10 Results for this PM EDT procedure are i n the results section. POCT GLUCOSE Routine 02/04/2019 5:14 Results for this PM EDT procedure are i n the results section. POCT GLUCOSE Routine 02/04/2019 4:14 Results for this PM EDT procedure are i n the results section. POCT GLUCOSE Routine 02/04/2019 2:58 Results for this PM EDT procedure are i n the results section. POCT GLUCOSE Routine 02/04/2019 1:49 Results for this PM EDT procedure are i n the results section. POCT GLUCOSE Routine 02/04/2019 1:05 Results for this PM EDT procedure are i n the results section. POCT GLUCOSE Routine 02/04/2019 12:08 Results for this PM EDT procedure are i n the results section. POCT GLUCOSE Routine 02/04/2019 10:50 Results for this AM EDT procedure are i n the results section. POCT GLUCOSE Routine 02/04/2019 10:06 Results for this AM EDT procedure are i n the results section. POCT GLUCOSE Routine 02/04/2019 9:09 Results for this AM EDT procedure are i n the results section. POTASSIUM Routine 02/04/2019 9:00 Results for this AM EDT procedure are i n the results section. POCT GLUCOSE Routine 02/04/2019 8:07 Results for this AM EDT procedure are i n the results section. POCT GLUCOSE Routine 02/04/2019 6:52 Results for this AM EDT procedure are i n the results section. POCT GLUCOSE Routine 02/04/2019 5:46 Results for this AM EDT procedure are i n the results section. POTASSIUM Routine 02/04/2019 4:35 Results for this AM EDT procedure are i n the results section. POCT GLUCOSE Routine 02/04/2019 4:25 Results for this AM EDT procedure are i n the results section. POCT GLUCOSE Routine 02/04/2019 3:27 Results for this AM EDT procedure are i n the results section. POCT GLUCOSE Routine 02/04/2019 2:18 Results for this AM EDT procedure are i n the results section. POCT GLUCOSE Routine 02/04/2019 1:03 Results for this AM EDT procedure are i n the results section. POCT GLUCOSE Routine 02/04/2019 12:15 Results for this AM EDT procedure are i n the results section. POCT GLUCOSE Routine 02/03/2019 11:12 Results for this PM EDT procedure are i n the results section. POCT GLUCOSE Routine 02/03/2019 8:06 Results for this PM EDT procedure are i n the results section. POCT GLUCOSE Routine 02/03/2019 6:22 Results for this PM EDT procedure are i n the results section. POCT GLUCOSE Routine 02/03/2019 5:26 Results for this PM EDT procedure are i n the results section. POCT GLUCOSE Routine 02/03/2019 4:01 Results for this PM EDT procedure are i n the results section. POCT GLUCOSE Routine 02/03/2019 3:04 Results for this PM EDT procedure are i n the results section. POCT GLUCOSE Routine 02/03/2019 2:01 Results for this PM EDT procedure are i n the results section. POCT GLUCOSE Routine 02/03/2019 1:03 Results for this PM EDT procedure are i n the results section. POCT GLUCOSE Routine 02/03/2019 12:31 Results for this PM EDT procedure are i n the results section. POCT GLUCOSE Routine 02/03/2019 12:03 Results for this PM EDT procedure are i n the results section. POCT GLUCOSE Routine 02/03/2019 11:27 Results for this AM EDT procedure are i n the results section. POCT GLUCOSE Routine 02/03/2019 9:59 Results for this AM EDT procedure are i n the results section. POTASSIUM Routine 02/03/2019 9:28 Results for this AM EDT procedure are i n the results section. POCT GLUCOSE Routine 02/03/2019 8:57 Results for this AM EDT procedure are i n the results section. XR CHEST PA AND Routine 02/03/2019 8:47 Results f or this LATERAL AM EDT procedure are i n the results section. POCT GLUCOSE Routine 02/03/2019 7:45 Results for this AM EDT procedure are i n the results section. POCT GLUCOSE Routine 02/03/2019 6:47 Results for this AM EDT procedure are i n the results section. POCT GLUCOSE Routine 02/03/2019 5:44 Results for this AM EDT procedure are i n the results section. POCT GLUCOSE Routine 02/03/2019 4:48 Results for this AM EDT procedure are i n the results section. POCT GLUCOSE Routine 02/03/2019 3:29 Results for this AM EDT procedure are i n the results section. POCT GLUCOSE Routine 02/03/2019 2:28 Results for this AM EDT procedure are i n the results section. HEMOGRAM Routine 02/03/2019 2:27 Results for this AM EDT procedure are i n the results section. DIFFERENTIAL, Routine 02/03/2019 2:27 Results for this AUTOMATED AM EDT procedure are i n the results section. CBC (WITH DIFF) Routine 02/03/2019 2:27 AM EDT BASIC METABOLIC PANEL Routine 02/03/2019 2:27 Res ults for this (NON-FASTING) AM EDT procedure are in the results section. EKG 12-LEAD Routine 02/03/2019 1:33 S/P CABG (coronary Result s for this AM EDT artery bypass graft) procedu re are in the results section. POCT GLUCOSE Routine 02/03/2019 1:30 Results for this AM EDT procedure are i n the results section. POCT GLUCOSE Routine 02/03/2019 12:31 Results for this AM EDT procedure are i n the results section. POCT GLUCOSE Routine 02/02/2019 11:30 Results for this PM EDT procedure are i n the results section. POCT GLUCOSE Routine 02/02/2019 10:35 Results for this PM EDT procedure are i n the results section. POCT GLUCOSE Routine 02/02/2019 9:24 Results for this PM EDT procedure are i n the results section. POCT GLUCOSE Routine 02/02/2019 8:24 Results for this PM EDT procedure are i n the results section. POCT GLUCOSE Routine 02/02/2019 6:52 Results for this PM EDT procedure are i n the results section. POCT GLUCOSE Routine 02/02/2019 5:46 Results for this PM EDT procedure are i n the results section. POCT GLUCOSE Routine 02/02/2019 4:48 Results for this PM EDT procedure are i n the results section. POCT GLUCOSE Routine 02/02/2019 3:49 Results for this PM EDT procedure are i n the results section. POCT GLUCOSE Routine 02/02/2019 2:51 Results for this PM EDT procedure are i n the results section. POCT GLUCOSE Routine 02/02/2019 2:07 Results for this PM EDT procedure are i n the results section. POCT GLUCOSE Routine 02/02/2019 1:01 Results for this PM EDT procedure are i n the results section. POCT GLUCOSE Routine 02/02/2019 12:15 Results for this PM EDT procedure are i n the results section. URINALYSIS MICROSCOPIC Routine 02/02/2019 11:49 R esults for this EXAM AM EDT procedure are i n the results section. URINALYSIS WITH REFLEX Routine 02/02/2019 11:49 R esults for this CULTURE AM EDT procedure are i n the results section. BLOOD CULTURE STAT 02/02/2019 10:05 Results fo r this AM EDT procedure are i n the results section. POCT GLUCOSE Routine 02/02/2019 10:00 Results for this AM EDT procedure are i n the results section. POCT GLUCOSE Routine 02/02/2019 7:40 Results for this AM EDT procedure are i n the results section. POCT GLUCOSE Routine 02/02/2019 6:33 Results for this AM EDT procedure are i n the results section. POCT GLUCOSE Routine 02/02/2019 4:23 Results for this AM EDT procedure are i n the results section. POTASSIUM Routine 02/02/2019 4:15 Results for this AM EDT procedure are i n the results section. POCT GLUCOSE Routine 02/02/2019 2:13 Results for this AM EDT procedure are i n the results section. POCT GLUCOSE Routine 02/02/2019 1:00 Results for this AM EDT procedure are i n the results section. POCT GLUCOSE Routine 02/02/2019 12:08 Results for this AM EDT procedure are i n the results section. POCT GLUCOSE Routine 02/01/2019 11:03 Results for this PM EDT procedure are i n the results section. POCT GLUCOSE Routine 02/01/2019 10:25 Results for this PM EDT procedure are i n the results section. POCT GLUCOSE Routine 02/01/2019 9:06 Results for this PM EDT procedure are i n the results section. POCT GLUCOSE Routine 02/01/2019 7:26 Results for this PM EDT procedure are i n the results section. POCT GLUCOSE Routine 02/01/2019 6:12 Results for this PM EDT procedure are i n the results section. POCT GLUCOSE Routine 02/01/2019 4:42 Results for this PM EDT procedure are i n the results section. POCT GLUCOSE Routine 02/01/2019 2:58 Results for this PM EDT procedure are i n the results section. POCT GLUCOSE Routine 02/01/2019 1:10 Results for this PM EDT procedure are i n the results section. POCT GLUCOSE Routine 02/01/2019 12:07 Results for this PM EDT procedure are i n the results section. POCT GLUCOSE Routine 02/01/2019 10:41 Results for this AM EDT procedure are i n the results section. POCT GLUCOSE Routine 02/01/2019 10:00 Results for this AM EDT procedure are i n the results section. POCT GLUCOSE Routine 02/01/2019 8:28 Results for this AM EDT procedure are i n the results section. POCT GLUCOSE Routine 02/01/2019 8:04 Results for this AM EDT procedure are i n the results section. POCT GLUCOSE Routine 02/01/2019 6:52 Results for this AM EDT procedure are i n the results section. BLOOD GAS 2 ARTERIAL Routine 02/01/2019 5:58 Resu lts for this AM EDT procedure are i n the results section. POCT GLUCOSE Routine 02/01/2019 4:43 Results for this AM EDT procedure are i n the results section. POCT GLUCOSE Routine 02/01/2019 3:23 Results for this AM EDT procedure are i n the results section. EXTUBATE Routine 02/01/2019 2:19 AM EDT BLOOD GAS 2 ARTERIAL Routine 02/01/2019 1:54 Resu lts for this AM EDT procedure are i n the results section. BLOOD GAS 2 ARTERIAL Routine 02/01/2019 12:35 Res ults for this AM EDT procedure are i n the results section. SCAN, PERIPHERAL BLOOD Routine 02/01/2019 12:22 R esults for this AM EDT procedure are i n the results section. HEMOGRAM Routine 02/01/2019 12:22 Results for this AM EDT procedure are i n the results section. DIFFERENTIAL, Routine 02/01/2019 12:22 Results fo r this AUTOMATED AM EDT procedure are i n the results section. CBC (WITH DIFF) Routine 02/01/2019 12:22 AM EDT HEMOGLOBIN Routine 02/01/2019 12:22 Results for this AM EDT procedure are i n the results section. TROPONIN Routine 02/01/2019 12:22 Results for this AM EDT procedure are i n the results section. POTASSIUM Routine 02/01/2019 12:22 Results for this AM EDT procedure are i n the results section. BASIC METABOLIC PANEL Routine 02/01/2019 12:22 Re sults for this (NON-FASTING) AM EDT procedure are in the results section. POCT GLUCOSE Routine 01/31/2019 11:20 Results for this PM EDT procedure are i n the results section. BLOOD GAS 2 ARTERIAL Routine 01/31/2019 10:08 Res ults for this PM EDT procedure are i n the results section. XR CHEST ONE VIEW STAT 01/31/2019 8:50 Results for this PM EDT procedure are i n the results section. BLOOD GAS 2 ARTERIAL Routine 01/31/2019 8:38 Resu lts for this PM EDT procedure are i n the results section. EKG 12-LEAD STAT 01/31/2019 8:20 S/P CABG (coronary Result s for this PM EDT artery bypass graft) procedu re are in the results section. BLOOD GAS 2 ARTERIAL Routine 01/31/2019 7:33 Resu lts for this PM EDT procedure are i n the results section. BLOOD GAS 2 ARTERIAL Routine 01/31/2019 6:56 Resu lts for this PM EDT procedure are i n the results section. HEMOGRAM STAT 01/31/2019 6:55 Results for this PM EDT procedure are i n the results section. APTT STAT 01/31/2019 6:55 Results for this PM EDT procedure are i n the results section. PROTHROMBIN TIME STAT 01/31/2019 6:55 Results for this PM EDT procedure are i n the results section. FIBRINOGEN STAT 01/31/2019 6:55 Results for this PM EDT procedure are i n the results section. PREPARE PLATELETS, STAT 01/31/2019 6:45 Result s for this APHERESIS PM EDT procedure are i n the results section. BLOOD GAS 2 ARTERIAL Routine 01/31/2019 6:31 Resu lts for this PM EDT procedure are i n the results section. @CABG,TWO VENOUS Routine 01/31/2019 6:28 GRAFTS & ARTERIAL PM EDT GRAFT BLOOD GAS 2 ARTERIAL Routine 01/31/2019 6:08 Resu lts for this PM EDT procedure are i n the results section. HEMOGLOBIN AND Routine 01/31/2019 6:00 Results fo r this HEMATOCRIT, BLOOD PM EDT procedure are in the results section. FIBRINOGEN Routine 01/31/2019 6:00 Results for this PM EDT procedure are i n the results section. PLATELET COUNT Routine 01/31/2019 6:00 Results fo r this PM EDT procedure are i n the results section. BLOOD GAS 2 ARTERIAL Routine 01/31/2019 5:42 Resu lts for this PM EDT procedure are i n the results section. BLOOD GAS 2 ARTERIAL Routine 01/31/2019 5:08 Resu lts for this PM EDT procedure are i n the results section. BLOOD GAS 2 VENOUS Routine 01/31/2019 5:08 Result s for this PM EDT procedure are i n the results section. BLOOD GAS 2 ARTERIAL Routine 01/31/2019 3:30 Resu lts for this PM EDT procedure are i n the results section. @CABG, USING ARTERIAL 01/31/2019 2:37 CAD, Cardiomyopa thy GRAFT;SINGLE ARTERIAL PM EDT GRAFT (WRVU 33.75) ENDOSCOPIC HARVEST 01/31/2019 2:37 CAD, Cardiomyopathy VEIN(S) FOR CABG (WRVU PM EDT 0.31) @CABG, TWO VENOUS 01/31/2019 2:37 CAD, Cardiomyopathy GRAFTS & ARTERIAL PM EDT GRAFT (WRVU 7.93) PREPARE RBC STAT 01/31/2019 1:25 Results for this PM EDT procedure are i n the results section. ENDOSCOPIC HARVEST Routine 01/31/2019 11:40 VEIN(S) FOR CABG AM EDT @CABG,USING ARTERIAL Routine 01/31/2019 11:40 GRAFT;SINGLE ARTERIAL AM EDT GRAFT POCT GLUCOSE Routine 01/31/2019 11:10 Results for this AM EDT procedure are i n the results section. POCT GLUCOSE Routine 01/31/2019 7:36 Results for this AM EDT procedure are i n the results section. EKG 12-LEAD Routine 01/31/2019 7:17 Ischemic Results for this AM EDT cardiomyopathy procedure are in the results section. HEMOGRAM Timed 01/31/2019 5:34 Results for this AM EDT procedure are i n the results section. DIFFERENTIAL, Timed 01/31/2019 5:34 Results for this AUTOMATED AM EDT procedure are i n the results section. CBC (WITH DIFF) Timed 01/31/2019 5:34 AM EDT BMP W/FASTING GLUCOSE Routine 01/31/2019 3:38 Res ults for this AM EDT procedure are i n the results section. POCT GLUCOSE Routine 01/30/2019 8:28 Results for this PM EDT procedure are i n the results section. XR CHEST PA AND Routine 01/30/2019 6:28 Results f or this LATERAL PM EDT procedure are i n the results section. ABORH RECHECK STATUS Routine 01/30/2019 6:18 Resu lts for this PM EDT procedure are i n the results section. ABO/RH TYPING Routine 01/30/2019 6:18 Results for this PM EDT procedure are i n the results section. ANTIBODY SCREEN Routine 01/30/2019 6:18 Results f or this PM EDT procedure are i n the results section. TYPE AND SCREEN Routine 01/30/2019 6:18 ([facility]YRONE) PM EDT POCT GLUCOSE Routine 01/30/2019 4:11 Results for this PM EDT procedure are i n the results section. POCT GLUCOSE Routine 01/30/2019 11:29 Results for this AM EDT procedure are i n the results section. POCT GLUCOSE Routine 01/30/2019 7:23 Results for this AM EDT procedure are i n the results section. EKG 12-LEAD Routine 01/30/2019 6:53 NSTEMI (non-ST Results fo r this AM EDT elevated myocardial procedur e are in infarction) the results Ischemic section. cardiomyopathy POCT GLUCOSE Routine 01/29/2019 8:27 Results for this PM EDT procedure are i n the results section. POCT GLUCOSE Routine 01/29/2019 4:39 Results for this PM EDT procedure are i n the results section. POCT GLUCOSE Routine 01/29/2019 12:12 Results for this PM EDT procedure are i n the results section. BLOOD GAS 2 ARTERIAL Routine 01/29/2019 9:13 Resu lts for this AM EDT procedure are i n the results section. LEG MAP FOR BYPASS Routine 01/29/2019 8:32 Atherosclerosis of Results for this GRAFT, BILAT AM EDT [place] coronary artery proce dure are in of [place] heart with the res ults unstable angina section. pectoris POCT GLUCOSE Routine 01/29/2019 7:44 Results for this AM EDT procedure are i n the results section. EKG 12-LEAD Routine 01/29/2019 7:11 Ischemic Results for this AM EDT cardiomyopathy procedure are in the results section. BMP W/FASTING GLUCOSE Routine 01/29/2019 4:43 Res ults for this AM EDT procedure are i n the results section. HEMOGRAM Routine 01/29/2019 4:43 Results for this AM EDT procedure are i n the results section. DIFFERENTIAL, Routine 01/29/2019 4:43 Results for this AUTOMATED AM EDT procedure are i n the results section. CBC (WITH DIFF) Routine 01/29/2019 4:43 AM EDT POCT GLUCOSE Routine 01/28/2019 8:18 Results for this PM EDT procedure are i n the results section. POCT GLUCOSE Routine 01/28/2019 4:53 Results for this PM EDT procedure are i n the results section. BMP W/FASTING GLUCOSE Routine 01/28/2019 1:35 Res ults for this PM EDT procedure are i n the results section. HEMOGRAM Routine 01/28/2019 1:35 Results for this PM EDT procedure are i n the results section. DIFFERENTIAL, Routine 01/28/2019 1:35 Results for this AUTOMATED PM EDT procedure are i n the results section. CBC (WITH DIFF) Routine 01/28/2019 1:35 PM EDT POCT GLUCOSE Routine 01/28/2019 11:18 Results for this AM EDT procedure are i n the results section. POCT GLUCOSE Routine 01/28/2019 7:52 Results for this AM EDT procedure are i n the results section. EKG 12-LEAD Routine 01/28/2019 6:12 Ischemic Results for this AM EDT cardiomyopathy procedure are in the results section. POCT GLUCOSE Routine 01/27/2019 7:47 Results for this PM EDT procedure are i n the results section. POCT GLUCOSE Routine 01/27/2019 4:48 Results for this PM EDT procedure are i n the results section. ECHOCARDIOGRAM Routine 01/27/2019 3:22 Ischemic Results fo r this COMPLETE W CONTRAST PM EDT cardiomyopat hy procedure are in NSTEMI (non-ST the results elevated myocardial section. infarction) Atherosclerosis of [place] coronary artery of [place] heart with unstable angina pectoris CARDIAC Routine 01/27/2019 12:37 Results for this CATHETERIZATION PM EDT procedure ar e in the results section. HEPARIN STAT 01/27/2019 11:10 Results for this (UNFRACTIONATED) LEVEL AM EDT proce dure are in the results section. POCT GLUCOSE Routine 01/27/2019 10:45 Results for this AM EDT procedure are i n the results section. POCT GLUCOSE Routine 01/27/2019 7:36 Results for this AM EDT procedure are i n the results section. HEPARIN STAT 01/27/2019 4:08 Results for this (UNFRACTIONATED) LEVEL AM EDT proce dure are in the results section. HEMOGRAM Routine 01/27/2019 4:08 Results for this AM EDT procedure are i n the results section. DIFFERENTIAL, Routine 01/27/2019 4:08 Results for this AUTOMATED AM EDT procedure are i n the results section. CREATININE Routine 01/27/2019 4:08 Results for this AM EDT procedure are i n the results section. APTT STAT 01/27/2019 4:08 Results for this AM EDT procedure are i n the results section. CBC (WITH DIFF) Routine 01/27/2019 4:08 AM EDT BUN Routine 01/27/2019 4:08 Results for this AM EDT procedure are i n the results section. TROPONIN Routine 01/27/2019 4:08 Results for this AM EDT procedure are i n the results section. LDL CHOLESTEROL, Routine 01/27/2019 4:08 Results for this DIRECT AM EDT procedure are i n the results section. HEMOGLOBIN A1C Routine 01/27/2019 4:08 Results fo r this AM EDT procedure are i n the results section. GLUCOSE, FASTING Routine 01/27/2019 4:08 Results for this AM EDT procedure are i n the results section. LIPID PANEL (REFLEX Routine 01/27/2019 4:08 Resul ts for this DIRECT LDL) AM EDT procedure are i n the results section. ELECTROLYTES PANEL Routine 01/27/2019 4:08 Result s for this AM EDT procedure are i n the results section. POCT GLUCOSE Routine 01/26/2019 10:36 Results for this PM EDT procedure are i n the results section. EKG 12-LEAD STAT 01/26/2019 10:23 Ischemic Results for this PM EDT cardiomyopathy procedure are in Atherosclerosis of the resul ts [place] coronary artery secti on. of [place] heart with unstable angina pectoris NSTEMI (non-ST elevated myocardial infarction) HEPARIN STAT 01/26/2019 10:21 Results for this (UNFRACTIONATED) LEVEL PM EDT proce dure are in the results section. BMP W/FASTING GLUCOSE STAT 01/26/2019 10:21 Re sults for this PM EDT procedure are i n the results section. SCAN, PERIPHERAL BLOOD STAT 01/26/2019 10:21 R esults for this PM EDT procedure are i n the results section. HEMOGRAM STAT 01/26/2019 10:21 Results for this PM EDT procedure are i n the results section. DIFFERENTIAL, STAT 01/26/2019 10:21 Results fo r this AUTOMATED PM EDT procedure are i n the results section. APTT STAT 01/26/2019 10:21 Results for this PM EDT procedure are i n the results section. PROTHROMBIN TIME STAT 01/26/2019 10:21 Results for this PM EDT procedure are i n the results section. CBC (WITH DIFF) STAT 01/26/2019 10:21 PM EDT TROPONIN Routine 01/26/2019 10:21 Results for this PM EDT procedure are i n the results section. TSH Routine 01/26/2019 10:21 Results for this PM EDT procedure are i n the results section. PRO-BRAIN NATRIURETIC STAT 01/26/2019 10:21 Re sults for this PEPTIDE PM EDT procedure are i n the results section. MAGNESIUM Routine 01/26/2019 10:21 Results for this PM EDT procedure are i n the results section. CK Routine 01/26/2019 10:21 Results for this PM EDT procedure are i n the results section. HEPATIC FUNCTION PANEL Routine 01/26/2019 10:21 R esults for this PM EDT procedure are i n the results section. documented in this encounter Results EKG 12 [...] 456 ms MUSE SYSTEM (Bezet) Calculated P [place] 41 degrees MUSE SYSTEM Calculated R [place] -65 degrees MUSE SYSTEM Calculated T [place] 146 degrees MUSE SYSTEM INTERPRETATION Sinus rhythm with 1st degree A-V block MUSE SYSTEM Left axis deviation Anterolateral infarct (cited on or before 21-JUL-2018) Abnormal ECG When compared with ECG of 03-FEB-2019 01:33, Sinus rhythm has replaced Atrial fibrillation Vent. rate has decreased BY ??[address] no longer elevated in Inferior leads Confirmed by MD ENMA, JACOBY ([id number]) on 2019 1:57:54 PM Specimen Anatomical Collection Method Collection Time Receive d Time (Source) Location / / Volume Laterality 2019 1:11 PM 9 1:57 EDT PM EDT Trip Corona MD ECG ORDERABLES Performing Organization Address City/State/ZIP Code Phon e Number MUSE SYSTEM XR Chest PA & Lateral (Generic) (2019 [...] this report, please contact e number below. ? Narrative 2019 2:36 PM EDT EXAMINATION: XR CHEST PA AND LATERAL (GENERIC) CLINICAL HISTORY: Please evaluate for in terval changes/PTX/effusions - s/p CABG X 3 TECHNIQUE: Frontal and lateral views of the chest COMPARISON: PA and lateral projections of the chest from 02/03/2019 FINDINGS: Lungs are clear. Cardiomediastinal silho uette is stable. [place]orent[place] and pulmonary vasculature are within normal limits. No pleural effusions. No pneumothorax. Median sternotomy wires and mediastinal clips are unchanged. Procedure Note Pina Hill MD - 2019Formatt ing of this note might be different from the original. EXAMINATION: XR CHEST PA AND LATERAL (GE NERIC) CLINICAL HISTORY: Please evaluate for in terval changes/PTX/effusions - s/p CABG X 3 TECHNIQUE: Frontal and lateral views of the chest COMPARISON: PA and lateral projections of the chest from 02/03/2019 FINDINGS: Lungs are clear. Cardiomediastinal silho uette is stable. [place] and pulmonary vasculature are within normal limits. [...] report, please contact e number below. Trip Corona MD IMG DX ORDERABLES (ABNORMAL) POCT Glucose (02/06/2019 11:49 AM EDT) athologist Signature POC Glucose 232 (H) 65 - 199 [facility] mg/dL [facility] Comment: Supplemental ranges: <140 mg/dL before meals <180 mg/dL all other times of the day Specimen Anatomical Collection Method Collection Time Receive d Time (Source) Location / / Volume Laterality Blood specimen 02/06/2019 11:49 9 (specimen) AM EDT 11:49 AM EDT Trip Corona MD POINT OF CARE TEST ORDERABLE S Performing Organization Address City/[facility]/[place]IP [place] [address] Potassium (02/06/2019 8:20 AM EDT) athologist Signature Potassium 4.5 3.5 - 5.0 [facility] mmol/L [facility] Comment: Please note: ??Patients with WBC >100,00 0 may have falsely elevated Potassium levels. ??For accurate Potassium quantif ication in these patients send serum separator tube (gold top) for subsequent determinations. ??Contact the Clinical Chemistry Laboratory if there are any qu estions. Specimen Anatomical Collection Method Collection Time Receive d Time (Source) Location / / Volume Laterality Blood specimen 02/06/2019 8:20 AM 019 8:31 (specimen) EDT AM EDT Resulting Agency Comment Spec In Lab Trip Corona MD CHEMISTRY ORDERABLES Performing Organization Address City/State/[place] [address] POCT Glucose (02/06/2019 7:47 AM EDT) P athologist Signature POC Glucose 147 65 - 199 [facility] mg/dL [facility] Comment: Supplemental ranges: <140 mg/dL before meals <180 mg/dL all other times of the day Specimen Anatomical Collection Method Collection Time Receive d Time (Source) Location / / Volume Laterality Blood specimen 02/06/2019 7:47 AM 019 7:47 (specimen) EDT AM EDT Trip Corona MD POINT OF CARE TEST ORDERABLE S Performing Organization Address City/State/[place] [address] POCT Glucose (02/06/2019 5:00 AM EDT) P athologist Signature POC Glucose 129 65 - 199 [facility] mg/dL [facility] Comment: Supplemental ranges: <140 mg/dL before meals <180 mg/dL all other times of the day Specimen Anatomical Collection Method Collection Time Receive d Time (Source) Location / / Volume Laterality Blood specimen 02/06/2019 5:00 AM 019 5:00 (specimen) EDT AM EDT Trip Corona MD POINT OF CARE TEST ORDERABLE S Performing Organization Address City/State/[place] [address] POCT Glucose (02/05/2019 11:18 PM EDT) P athologist Signature POC Glucose 132 65 - 199 [place] mg/dL [facility] Comment: Supplemental ranges: <140 mg/dL before meals <180 mg/dL all other times of the day Specimen Anatomical Collection Method Collection Time Receive d Time (Source) Location / / Volume Laterality Blood specimen 02/05/2019 11:18 9 (specimen) PM EDT 11:18 PM EDT Trip Corona MD POINT OF CARE TEST ORDERABLE S Performing Organization Address City/State/[place] [address] (ABNORMAL) POCT Glucose (02/05/2019 7:57 PM EDT) P athologist Signature POC Glucose 248 (H) 65 - 199 [facility] Comment: Supplemental ranges: <140 mg/dL before meals <180 mg/dL all other times of the day Specimen Anatomical Collection Method Collection Time Receive d Time (Source) Location / / Volume Laterality Blood specimen 02/05/2019 7:57 PM 019 7:57 (specimen) EDT PM EDT Trip Corona MD POINT OF CARE TEST ORDERABLE S Performing Organization Address City/[facility]/[place] [address] (ABNORMAL) POCT Glucose (02/05/2019 4:21 PM EDT) athologist Signature POC Glucose 230 (H) 65 - 199 [facility] Comment: Supplemental ranges: <140 mg/dL before meals <180 mg/dL all other times of the day Specimen Anatomical Collection Method Collection Time Receive d Time (Source) Location / / Volume Laterality Blood specimen 02/05/2019 4:21 PM 019 4:21 (specimen) EDT PM EDT Trip Corona MD POINT OF CARE TEST ORDERABLE S Performing Organization Address City/[facility]/[place] [address] (ABNORMAL) POCT Glucose (02/05/2019 2:17 PM EDT) P athologist Signature POC Glucose 245 (H) 65 - 199 [facility] mg/dL [facility] Comment: Supplemental ranges: <140 mg/dL before meals <180 mg/dL all other times of the day Specimen Anatomical Collection Method Collection Time Receive d Time (Source) Location / / Volume Laterality Blood specimen 02/05/2019 2:17 PM 019 2:17 (specimen) EDT PM EDT Trip Corona MD POINT OF CARE TEST ORDERABLE S Performing Organization Address City/State/[place] [address] (ABNORMAL) POCT Glucose (02/05/2019 11:44 AM EDT) P athologist Signature POC Glucose 222 (H) 65 - 199 [facility] Comment: Supplemental ranges: <140 mg/dL before meals <180 mg/dL all other times of the day Specimen Anatomical Collection Method Collection Time Receive d Time (Source) Location / / Volume Laterality Blood specimen 02/05/2019 11:44 9 (specimen) AM EDT 11:44 AM EDT Trip Corona MD POINT OF CARE TEST ORDERABLE S Performing Organization Address City/State/[place] [address] (ABNORMAL) POCT Glucose (02/05/2019 11:05 AM EDT) athologist Signature POC Glucose 214 (H) 65 - 199 [facility] Comment: Supplemental ranges: <140 mg/dL before meals <180 mg/dL all other times of the day Specimen Anatomical Collection Method Collection Time Receive d Time (Source) Location / / Volume Laterality Blood specimen 02/05/2019 11:05 9 (specimen) AM EDT 11:05 AM EDT Trip Corona MD POINT OF CARE TEST ORDERABLE S Performing Organization Address City/State/[place] [address] (ABNORMAL) POCT Glucose (02/05/2019 10:34 AM EDT) P athologist Signature POC Glucose 288 (H) 65 - 199 [facility] Comment: Supplemental ranges: <140 mg/dL before meals <180 mg/dL all other times of the day Specimen Anatomical Collection Method Collection Time Receive d Time (Source) Location / / Volume Laterality Blood specimen 02/05/2019 10:34 9 (specimen) AM EDT 10:34 AM EDT Trip Corona MD POINT OF CARE TEST ORDERABLE S Performing Organization Address City/State/[place] [address] (ABNORMAL) POCT Glucose (02/05/2019 10:10 AM EDT) athologist Signature POC Glucose 272 (H) 65 - 199 [facility] mg/dL [facility] Comment: Supplemental ranges: <140 mg/dL before meals <180 mg/dL all other times of the day Specimen Anatomical Collection Method Collection Time Receive d Time (Source) Location / / Volume Laterality Blood specimen 02/05/2019 10:10 9 (specimen) AM EDT 10:10 AM EDT Trip Corona MD POINT OF CARE TEST ORDERABLE S Performing Organization Address City/State/[place] [address] (ABNORMAL) POCT Glucose (02/05/2019 9:10 AM EDT) athologist Signature POC Glucose 270 (H) 65 - 199 [facility]dL [facility] Comment: Supplemental ranges: <140 mg/dL before meals <180 mg/dL all other times of the day Specimen Anatomical Collection Method Collection Time Receive d Time (Source) Location / / Volume Laterality Blood specimen 02/05/2019 9:10 AM 019 9:10 (specimen) EDT AM EDT Trip Corona MD POINT OF CARE TEST ORDERABLE S Performing Organization Address City/State/[place] [address] (ABNORMAL) POCT Glucose (02/05/2019 8:05 AM EDT) P athologist Signature POC Glucose 232 (H) 65 - 199 [facility]dL [facility] Comment: Supplemental ranges: <140 mg/dL before meals <180 mg/dL all other times of the day Specimen Anatomical Collection Method Collection Time Receive d Time (Source) Location / / Volume Laterality Blood specimen 02/05/2019 8:05 AM 019 8:05 (specimen) EDT AM EDT Trip Corona MD POINT OF CARE TEST ORDERABLE S Performing Organization Address City/[facility]/[place] [address] Potassium (02/05/2019 7:08 AM EDT) athologist Signature Potassium 4.4 3.5 - 5.0 [facility] mmol/L [facility] Comment: Please note: ??Patients with WBC >100,00 0 may have falsely elevated Potassium levels. ??For accurate Potassium quantif ication in these patients send serum separator tube (gold top) for subsequent determinations. ??Contact the Clinical Chemistry Laboratory if there are any qu estions. Specimen Anatomical Collection Method Collection Time Receive d Time (Source) Location / / Volume Laterality Blood specimen 02/05/2019 7:08 AM 019 7:12 (specimen) EDT AM EDT Resulting Agency Comment Spec In Lab Trip Corona MD CHEMISTRY ORDERABLES Performing Organization Address City/[facility]/[place] [address] (ABNORMAL) POCT Glucose (02/05/2019 7:00 AM EDT) athologist Signature POC Glucose 214 (H) 65 - 199 [facility] mg/dL [facility] Comment: Supplemental ranges: <140 mg/dL before meals <180 mg/dL all other times of the day Specimen Anatomical Collection Method Collection Time Receive d Time (Source) Location / / Volume Laterality Blood specimen 02/05/2019 7:00 AM 019 7:00 (specimen) EDT AM EDT Trip Corona MD POINT OF CARE TEST ORDERABLE S Performing Organization Address City/[facility]/[place] [address] POCT Glucose (02/05/2019 5:06 AM EDT) athologist Signature POC Glucose 161 65 - 199 [facility] mg[facility]dL [facility] Comment: Supplemental ranges: <140 mg/dL before meals <180 mg/dL all other times of the day Specimen Anatomical Collection Method Collection Time Receive d Time (Source) Location / / Volume Laterality Blood specimen 02/05/2019 5:06 AM 019 5:06 (specimen) EDT AM EDT Trip Corona MD POINT OF CARE TEST ORDERABLE S Performing Organization Address City/State/[place] [address] POCT Glucose (02/05/2019 4:03 AM EDT) athologist Signature POC Glucose 143 65 - 199 [place] mg/dL [facility] Comment: Supplemental ranges: <140 mg/dL before meals <180 mg/dL all other times of the day Specimen Anatomical Collection Method Collection Time Receive d Time (Source) Location / / Volume Laterality Blood specimen 02/05/2019 4:03 AM 019 4:03 (specimen) EDT AM EDT Trip Corona MD POINT OF CARE TEST ORDERABLE S Performing Organization Address City/State/[place] [address] POCT Glucose (02/05/2019 3:03 AM EDT) athologist Signature POC Glucose 134 65 - 199 [place] mg/dL [facility] Comment: Supplemental ranges: <140 mg/dL before meals <180 mg/dL all other times of the day Specimen Anatomical Collection Method Collection Time Receive d Time (Source) Location / / Volume Laterality Blood specimen 02/05/2019 3:03 AM 019 3:03 (specimen) EDT AM EDT Trip Corona MD POINT OF CARE TEST ORDERABLE S Performing Organization Address City/State/[place] [address] POCT Glucose (02/05/2019 2:04 AM EDT) athologist Signature POC Glucose 118 65 - 199 [place]Y mg/dL [facility] Comment: Supplemental ranges: <140 mg/dL before meals <180 mg/dL all other times of the day Specimen Anatomical Collection Method Collection Time Receive d Time (Source) Location / / Volume Laterality Blood specimen 02/05/2019 2:04 AM 019 2:04 (specimen) EDT AM EDT Trip Corona MD POINT OF CARE TEST ORDERABLE S Performing Organization Address City/State/[place] [address] POCT Glucose (02/05/2019 1:02 AM EDT) athologist Signature POC Glucose 118 65 - 199 [place] ROM[place] mg/dL [facility] Comment: Supplemental ranges: <140 mg/dL before meals <180 mg/dL all other times of the day Specimen Anatomical Collection Method Collection Time Receive d Time (Source) Location / / Volume Laterality Blood specimen 02/05/2019 1:02 AM 019 1:02 (specimen) EDT AM EDT Trip Corona MD POINT OF CARE TEST ORDERABLE S Performing Organization Address City/State/[place] [address] POCT Glucose (02/05/2019 12:05 AM EDT) athologist Signature POC Glucose 114 65 - 199 [place] mg/dL [facility] Comment: Supplemental ranges: <140 mg/dL before meals <180 mg/dL all other times of the day Specimen Anatomical Collection Method Collection Time Receive d Time (Source) Location / / Volume Laterality Blood specimen 02/05/2019 12:05 9 (specimen) AM EDT 12:05 AM EDT Trip Corona MD POINT OF CARE TEST ORDERABLE S Performing Organization Address City/State/[place] [address] POCT Glucose (02/04/2019 11:02 PM EDT) athologist Signature POC Glucose 121 65 - 199 [place] ROMY mg/dL [facility] Comment: Supplemental ranges: <140 mg/dL before meals <180 mg/dL all other times of the day Specimen Anatomical Collection Method Collection Time Receive d Time (Source) Location / / Volume Laterality Blood specimen 02/04/2019 11:02 9 (specimen) PM EDT 11:02 PM EDT Trip Corona MD POINT OF CARE TEST ORDERABLE S Performing Organization Address City/State/[place] [address] POCT Glucose (02/04/2019 10:11 PM EDT) athologist Signature POC Glucose 131 65 - 199 [place] ROMY mg/dL [facility] Comment: Supplemental ranges: <140 mg/dL before meals <180 mg/dL all other times of the day Specimen Anatomical Collection Method Collection Time Receive d Time (Source) Location / / Volume Laterality Blood specimen 02/04/2019 10:11 9 (specimen) PM EDT 10:11 PM EDT Trip Corona MD POINT OF CARE TEST ORDERABLE S Performing Organization Address City/State/[place] [address] POCT Glucose (02/04/2019 9:34 PM EDT) athologist Signature POC Glucose 129 65 - 199 [place] ROM[place] mg/dL [facility] Comment: Supplemental ranges: <140 mg/dL before meals <180 mg/dL all other times of the day Specimen Anatomical Collection Method Collection Time Receive d Time (Source) Location / / Volume Laterality Blood specimen 02/04/2019 9:34 PM 019 9:34 (specimen) EDT PM EDT Trip Corona MD POINT OF CARE TEST ORDERABLE S Performing Organization Address City/State/ZIP Code Phon e Number [address] POCT Glucose (02/04/2019 8:36 PM EDT) athologist Signature POC Glucose 146 65 - 199 [facility] mg/dL [facility] Comment: Supplemental ranges: <140 mg/dL before meals <180 mg/dL all other times of the day Specimen Anatomical Collection Method Collection Time Receive d Time (Source) Location / / Volume Laterality Blood specimen 02/04/2019 8:36 PM 019 8:36 (specimen) EDT PM EDT Trip Corona MD POINT OF CARE TEST ORDERABLE S Performing Organization Address City/[facility]/ZIP Code Phon e Number [address] POCT Glucose (02/04/2019 7:16 PM EDT) athologist Signature POC Glucose 173 65 - 199 [facility] [place] mg/dL [facility] Comment: Supplemental ranges: <140 mg/dL before meals <180 mg/dL all other times of the day Specimen Anatomical Collection Method Collection Time Receive d Time (Source) Location / / Volume Laterality Blood specimen 02/04/2019 7:16 PM 019 7:16 (specimen) EDT PM EDT Trip Corona MD POINT OF CARE TEST ORDERABLE S Performing Organization Address City/[facility]/[place] [address] POCT Glucose (02/04/2019 6:10 PM EDT) athologist Signature POC Glucose 146 65 - 199 [facility] [place] mg/dL [facility] Comment: Supplemental ranges: <140 mg/dL before meals <180 mg/dL all other times of the day Specimen Anatomical Collection Method Collection Time Receive d Time (Source) Location / / Volume Laterality Blood specimen 02/04/2019 6:10 PM 019 6:10 (specimen) EDT PM EDT Trip Corona MD POINT OF CARE TEST ORDERABLE S Performing Organization Address City/State/ZIP Code Phon e Number [address] POCT Glucose (02/04/2019 5:14 PM EDT) athologist Signature POC Glucose 141 65 - 199 [facility] [place] mg/dL [facility] Comment: Supplemental ranges: <140 mg/dL before meals <180 mg/dL all other times of the day Specimen Anatomical Collection Method Collection Time Receive d Time (Source) Location / / Volume Laterality Blood specimen 02/04/2019 5:14 PM 019 5:14 (specimen) EDT PM EDT Trip Corona MD POINT OF CARE TEST ORDERABLE S Performing Organization Address City/[facility]/ZIP Code Phon e Number [address] POCT Glucose (02/04/2019 4:14 PM EDT) athologist Signature POC Glucose 166 65 - 199 [place] ROMY mg/dL [facility] Comment: Supplemental ranges: <140 mg/dL before meals <180 mg/dL all other times of the day Specimen Anatomical Collection Method Collection Time Receive d Time (Source) Location / / Volume Laterality Blood specimen 02/04/2019 4:14 PM 019 4:14 (specimen) EDT PM EDT Trip Corona MD POINT OF CARE TEST ORDERABLE S Performing Organization Address City/[facility]/[place] [address] POCT Glucose (02/04/2019 2:58 PM EDT) athologist Signature POC Glucose 180 65 - 199 [place] ROMY mg/dL [facility] Comment: Supplemental ranges: <140 mg/dL before meals <180 mg/dL all other times of the day Specimen Anatomical Collection Method Collection Time Receive d Time (Source) Location / / Volume Laterality Blood specimen 02/04/2019 2:58 PM 019 2:58 (specimen) EDT PM EDT Trip Corona MD POINT OF CARE TEST ORDERABLE S Performing Organization Address City/State/[place] [address] POCT Glucose (02/04/2019 1:49 PM EDT) athologist Signature POC Glucose 199 65 - 199 [place] ROMY mg/dL [facility] Comment: Supplemental ranges: <140 mg/dL before meals <180 mg/dL all other times of the day Specimen Anatomical Collection Method Collection Time Receive d Time (Source) Location / / Volume Laterality Blood specimen 02/04/2019 1:49 PM 019 1:49 (specimen) EDT PM EDT Trip Corona MD POINT OF CARE TEST ORDERABLE S Performing Organization Address City/State/[place] [address] (ABNORMAL) POCT Glucose (02/04/2019 1:05 PM EDT) P athologist Signature POC Glucose 278 (H) 65 - 199 [place] ROMY mg/dL [facility] Comment: Supplemental ranges: <140 mg/dL before meals <180 mg/dL all other times of the day Specimen Anatomical Collection Method Collection Time Receive d Time (Source) Location / / Volume Laterality Blood specimen 02/04/2019 1:05 PM 019 1:05 (specimen) EDT PM EDT Trip Corona MD POINT OF CARE TEST ORDERABLE S Performing Organization Address City/State/[place] [address] (ABNORMAL) POCT Glucose (02/04/2019 12:08 PM EDT) P athologist Signature POC Glucose 239 (H) 65 - 199 [facility] mg/dL [facility] Comment: Supplemental ranges: <140 mg/dL before meals <180 mg/dL all other times of the day Specimen Anatomical Collection Method Collection Time Receive d Time (Source) Location / / Volume Laterality Blood specimen 02/04/2019 12:08 9 (specimen) PM EDT 12:08 PM EDT Trip Corona MD POINT OF CARE TEST ORDERABLE S Performing Organization Address City/State/[place] [address] (ABNORMAL) POCT Glucose (02/04/2019 10:50 AM EDT) P athologist Signature POC Glucose 249 (H) 65 - 199 [facility] mg/dL [facility] Comment: Supplemental ranges: <140 mg/dL before meals <180 mg/dL all other times of the day Specimen Anatomical Collection Method Collection Time Receive d Time (Source) Location / / Volume Laterality Blood specimen 02/04/2019 10:50 9 (specimen) AM EDT 10:50 AM EDT Trip Corona MD POINT OF CARE TEST ORDERABLE S Performing Organization Address City/State/[place] [address] (ABNORMAL) POCT Glucose (02/04/2019 10:06 AM EDT) athologist Signature POC Glucose 279 (H) 65 - 199 [facility] mg/dL [facility] Comment: Supplemental ranges: <140 mg/dL before meals <180 mg/dL all other times of the day Specimen Anatomical Collection Method Collection Time Receive d Time (Source) Location / / Volume Laterality Blood specimen 02/04/2019 10:06 9 (specimen) AM EDT 10:06 AM EDT Trip Corona MD POINT OF CARE TEST ORDERABLE S Performing Organization Address City/State/[place] [address] (ABNORMAL) POCT Glucose (02/04/2019 9:09 AM EDT) athologist Signature POC Glucose 282 (H) 65 - 199 [facility] Comment: Supplemental ranges: <140 mg/dL before meals <180 mg/dL all other times of the day Specimen Anatomical Collection Method Collection Time Receive d Time (Source) Location / / Volume Laterality Blood specimen 02/04/2019 9:09 AM 019 9:09 (specimen) EDT AM EDT Trip Corona MD POINT OF CARE TEST ORDERABLE S Performing Organization Address City/State/[place] [address] Potassium (02/04/2019 9:00 AM EDT) athologist Signature Potassium 4.6 3.5 - 5.0 [facility] mmol/L [facility] Comment: Please note: ??Patients with WBC >100,00 0 may have falsely elevated Potassium levels. ??For accurate Potassium quantif ication in these patients send serum separator tube (gold top) for subsequent determinations. ??Contact the Clinical Chemistry Laboratory if there are any qu estions. Specimen Anatomical Collection Method Collection Time Receive d Time (Source) Location / / Volume Laterality Blood specimen 02/04/2019 9:00 AM 019 9:04 (specimen) EDT AM EDT Resulting Agency Comment Spec In Lab Trip Corona MD CHEMISTRY ORDERABLES Performing Organization Address City/State/ZIP Code Phon e Number [address] POCT Glucose (02/04/2019 8:07 AM EDT) athologist Signature POC Glucose 180 65 - 199 [facility] Comment: Supplemental ranges: <140 mg/dL before meals <180 mg/dL all other times of the day Specimen Anatomical Collection Method Collection Time Receive d Time (Source) Location / / Volume Laterality Blood specimen 02/04/2019 8:07 AM 019 8:07 (specimen) EDT AM EDT Trip Corona MD POINT OF CARE TEST ORDERABLE S Performing Organization Address City/[facility]/ZIP Code Phon e Number [address] POCT Glucose (02/04/2019 6:52 AM EDT) athologist Signature POC Glucose 186 65 - 199 [facility] Comment: Supplemental ranges: <140 mg/dL before meals <180 mg/dL all other times of the day Specimen Anatomical Collection Method Collection Time Receive d Time (Source) Location / / Volume Laterality Blood specimen 02/04/2019 6:52 AM 019 6:52 (specimen) EDT AM EDT Trip Corona MD POINT OF CARE TEST ORDERABLE S Performing Organization Address City/[facility]/ZIP Code Phon e Number [address] POCT Glucose (02/04/2019 5:46 AM EDT) athologist Signature POC Glucose 165 65 - 199 [facility] Comment: Supplemental ranges: <140 mg/dL before meals <180 mg/dL all other times of the day Specimen Anatomical Collection Method Collection Time Receive d Time (Source) Location / / Volume Laterality Blood specimen 02/04/2019 5:46 AM 019 5:46 (specimen) EDT AM EDT Trip Corona MD POINT OF CARE TEST ORDERABLE S Performing Organization Address City/State/[place] [address] Potassium (02/04/2019 4:35 AM EDT) athologist Signature Potassium 4.1 3.5 - 5.0 [facility] mmol/L [facility] Comment: Please note: ??Patients with WBC >100,00 0 may have falsely elevated Potassium levels. ??For accurate Potassium quantif ication in these patients send serum separator tube (gold top) for subsequent determinations. ??Contact the Clinical Chemistry Laboratory if there are any qu estions. Specimen Anatomical Collection Method Collection Time Receive d Time (Source) Location / / Volume Laterality Blood specimen 02/04/2019 4:35 AM 019 4:51 (specimen) EDT AM EDT Resulting Agency Comment Spec In Lab Trip Corona MD CHEMISTRY ORDERABLES Performing Organization Address City/[facility]/ZIP Code Phon e Number [address] POCT Glucose (02/04/2019 4:25 AM EDT) athologist Signature POC Glucose 157 65 - 199 [facility] Comment: Supplemental ranges: <140 mg/dL before meals <180 mg/dL all other times of the day Specimen Anatomical Collection Method Collection Time Receive d Time (Source) Location / / Volume Laterality Blood specimen 02/04/2019 4:25 AM 019 4:25 (specimen) EDT AM EDT Trip Corona MD POINT OF CARE TEST ORDERABLE S Performing Organization Address City/State/ZIP Code Phon e Number [address] POCT Glucose (02/04/2019 3:27 AM EDT) athologist Signature POC Glucose 141 65 - 199 [facility] mg/dL [facility] Comment: Supplemental ranges: <140 mg/dL before meals <180 mg/dL all other times of the day Specimen Anatomical Collection Method Collection Time Receive d Time (Source) Location / / Volume Laterality Blood specimen 02/04/2019 3:27 AM 019 3:27 (specimen) EDT AM EDT Trip Corona MD POINT OF CARE TEST ORDERABLE S Performing Organization Address City/State/ZIP Code Phon e Number [address] POCT Glucose (02/04/2019 2:18 AM EDT) athologist Signature POC Glucose 135 65 - 199 [facility] Comment: Supplemental ranges: <140 mg/dL before meals <180 mg/dL all other times of the day Specimen Anatomical Collection Method Collection Time Receive d Time (Source) Location / / Volume Laterality Blood specimen 02/04/2019 2:18 AM 019 2:18 (specimen) EDT AM EDT Trip Corona MD POINT OF CARE TEST ORDERABLE S Performing Organization Address City/State/[place] [address] POCT Glucose (02/04/2019 1:03 AM EDT) athologist Signature POC Glucose 117 65 - 199 [place] ROM[place] mg/dL [facility] Comment: Supplemental ranges: <140 mg/dL before meals <180 mg/dL all other times of the day Specimen Anatomical Collection Method Collection Time Receive d Time (Source) Location / / Volume Laterality Blood specimen 02/04/2019 1:03 AM 019 1:03 (specimen) EDT AM EDT Trip Corona MD POINT OF CARE TEST ORDERABLE S Performing Organization Address City/State/[place] [address] POCT Glucose (02/04/2019 12:15 AM EDT) athologist Signature POC Glucose 137 65 - 199 [place] ROMY mg/dL [facility] Comment: Supplemental ranges: <140 mg/dL before meals <180 mg/dL all other times of the day Specimen Anatomical Collection Method Collection Time Receive d Time (Source) Location / / Volume Laterality Blood specimen 02/04/2019 12:15 9 (specimen) AM EDT 12:15 AM EDT Trip Corona MD POINT OF CARE TEST ORDERABLE S Performing Organization Address City/State/ZIP Code Phon e Number [address] POCT Glucose (02/03/2019 11:12 PM EDT) athologist Signature POC Glucose 164 65 - 199 [facility] Comment: Supplemental ranges: <140 mg/dL before meals <180 mg/dL all other times of the day Specimen Anatomical Collection Method Collection Time Receive d Time (Source) Location / / Volume Laterality Blood specimen 02/03/2019 11:12 9 (specimen) PM EDT 11:12 PM EDT Trip Corona MD POINT OF CARE TEST ORDERABLE S Performing Organization Address City/State/ZIP Code Phon e Number [address] POCT Glucose (02/03/2019 8:06 PM EDT) athologist Signature POC Glucose 163 65 - 199 [facility] mg/dL [facility] Comment: Supplemental ranges: <140 mg/dL before meals <180 mg/dL all other times of the day Specimen Anatomical Collection Method Collection Time Receive d Time (Source) Location / / Volume Laterality Blood specimen 02/03/2019 8:06 PM 019 8:06 (specimen) EDT PM EDT Trip Corona MD POINT OF CARE TEST ORDERABLE S Performing Organization Address City/State/[place] [address] POCT Glucose (02/03/2019 6:22 PM EDT) athologist Signature POC Glucose 175 65 - 199 [place] ROMY mg/dL [facility] Comment: Supplemental ranges: <140 mg/dL before meals <180 mg/dL all other times of the day Specimen Anatomical Collection Method Collection Time Receive d Time (Source) Location / / Volume Laterality Blood specimen 02/03/2019 6:22 PM 019 6:22 (specimen) EDT PM EDT Trip Corona MD POINT OF CARE TEST ORDERABLE S Performing Organization Address City/State/[place] [address] POCT Glucose (02/03/2019 5:26 PM EDT) athologist Signature POC Glucose 158 65 - 199 [place] ROMY mg/dL [facility] Comment: Supplemental ranges: <140 mg/dL before meals <180 mg/dL all other times of the day Specimen Anatomical Collection Method Collection Time Receive d Time (Source) Location / / Volume Laterality Blood specimen 02/03/2019 5:26 PM 019 5:26 (specimen) EDT PM EDT Trip Corona MD POINT OF CARE TEST ORDERABLE S Performing Organization Address City/State/[place] [address] POCT Glucose (02/03/2019 4:01 PM EDT) athologist Signature POC Glucose 187 65 - 199 [place] ROM[place] mg/dL [facility] Comment: Supplemental ranges: <140 mg/dL before meals <180 mg/dL all other times of the day Specimen Anatomical Collection Method Collection Time Receive d Time (Source) Location / / Volume Laterality Blood specimen 02/03/2019 4:01 PM 019 4:01 (specimen) EDT PM EDT Trip Corona MD POINT OF CARE TEST ORDERABLE S Performing Organization Address City/State/[place] [address] (ABNORMAL) POCT Glucose (02/03/2019 3:04 PM EDT) athologist Signature POC Glucose 223 (H) 65 - 199 [facility] Comment: Supplemental ranges: <140 mg/dL before meals <180 mg/dL all other times of the day Specimen Anatomical Collection Method Collection Time Receive d Time (Source) Location / / Volume Laterality Blood specimen 02/03/2019 3:04 PM 019 3:04 (specimen) EDT PM EDT Trip Corona MD POINT OF CARE TEST ORDERABLE S Performing Organization Address City/State/[place] [address] (ABNORMAL) POCT Glucose (02/03/2019 2:01 PM EDT) athologist Signature POC Glucose 230 (H) 65 - 199 [facility] Comment: Supplemental ranges: <140 mg/dL before meals <180 mg/dL all other times of the day Specimen Anatomical Collection Method Collection Time Receive d Time (Source) Location / / Volume Laterality Blood specimen 02/03/2019 2:01 PM 019 2:01 (specimen) EDT PM EDT Trip Corona MD POINT OF CARE TEST ORDERABLE S Performing Organization Address City/[facility]/[place] [address] (ABNORMAL) POCT Glucose (02/03/2019 1:03 PM EDT) athologist Signature POC Glucose 248 (H) 65 - 199 [place] ROM[place] mg/dL [facility] Comment: Supplemental ranges: <140 mg/dL before meals <180 mg/dL all other times of the day Specimen Anatomical Collection Method Collection Time Receive d Time (Source) Location / / Volume Laterality Blood specimen 02/03/2019 1:03 PM 019 1:03 (specimen) EDT PM EDT Trip Corona MD POINT OF CARE TEST ORDERABLE S Performing Organization Address City/State/[place] [address] (ABNORMAL) POCT Glucose (02/03/2019 12:31 PM EDT) athologist Signature POC Glucose 260 (H) 65 - 199 [facility] Comment: Supplemental ranges: <140 mg/dL before meals <180 mg/dL all other times of the day Specimen Anatomical Collection Method Collection Time Receive d Time (Source) Location / / Volume Laterality Blood specimen 02/03/2019 12:31 9 (specimen) PM EDT 12:31 PM EDT Trip Corona MD POINT OF CARE TEST ORDERABLE S Performing Organization Address City/State/ZIP Code Phon e Number [address] (ABNORMAL) POCT Glucose (02/03/2019 12:03 PM EDT) athologist Signature POC Glucose 252 (H) 65 - 199 [facility] mg/dL [facility] Comment: Supplemental ranges: <140 mg/dL before meals <180 mg/dL all other times of the day Specimen Anatomical Collection Method Collection Time Receive d Time (Source) Location / / Volume Laterality Blood specimen 02/03/2019 12:03 9 (specimen) PM EDT 12:03 PM EDT Trip Corona MD POINT OF CARE TEST ORDERABLE S Performing Organization Address City/State/[place] [address] (ABNORMAL) POCT Glucose (02/03/2019 11:27 AM EDT) athologist Signature POC Glucose 260 (H) 65 - 199 [facility] mg/dL [facility] Comment: Supplemental ranges: <140 mg/dL before meals <180 mg/dL all other times of the day Specimen Anatomical Collection Method Collection Time Receive d Time (Source) Location / / Volume Laterality Blood specimen 02/03/2019 11:27 9 (specimen) AM EDT 11:27 AM EDT Trip Corona MD POINT OF CARE TEST ORDERABLE S Performing Organization Address City/State/[place] [address] (ABNORMAL) POCT Glucose (02/03/2019 9:59 AM EDT) athologist Signature POC Glucose 227 (H) 65 - 199 [facility] mg/dL [facility] Comment: Supplemental ranges: <140 mg/dL before meals <180 mg/dL all other times of the day Specimen Anatomical Collection Method Collection Time Receive d Time (Source) Location / / Volume Laterality Blood specimen 02/03/2019 9:59 AM 019 9:59 (specimen) EDT AM EDT Trip Corona MD POINT OF CARE TEST ORDERABLE S Performing Organization Address City/State/[place] [address] Potassium (02/03/2019 9:28 AM EDT) athologist Signature Potassium 4.6 3.5 - 5.0 [facility] mmol/L [facility] Comment: Please note: ??Patients with WBC >100,00 0 may have falsely elevated Potassium levels. ??For accurate Potassium quantif ication in these patients send serum separator tube (gold top) for subsequent determinations. ??Contact the Clinical Chemistry Laboratory if there are any qu estions. Specimen Anatomical Collection Method Collection Time Receive d Time (Source) Location / / Volume Laterality Blood specimen 02/03/2019 9:28 AM 019 9:34 (specimen) EDT AM EDT Resulting Agency Comment Spec In Lab Trip Corona MD CHEMISTRY ORDERABLES Performing Organization Address City/State/[place] [address] POCT Glucose (02/03/2019 8:57 AM EDT) athologist Signature POC Glucose 195 65 - 199 [facility]dL [facility] Comment: Supplemental ranges: <140 mg/dL before meals <180 mg/dL all other times of the day Specimen Anatomical Collection Method Collection Time Receive d Time (Source) Location / / Volume Laterality Blood specimen 02/03/2019 8:57 AM 019 8:57 (specimen) EDT AM EDT Trip Corona MD POINT OF CARE TEST ORDERABLE S Performing Organization Address City/State/ZIP Code Phon e Number [place] [id number] XR Chest PA & Lateral (Generic) (02/03/2019 8:47 AM EDT) Anatomical Region Laterality Modality Chest N/A Digital Radiography Specimen (Source) Anatomical Location Collection Method / Collectio n Time Received Time / Laterality Volume Impressions 02/03/2019 1:51 PM EDT Expected postoperative findings Thank you for letting us participate in the care of this patient. For questions regarding this report, please contact e number below. ? Narrative 02/03/2019 1:51 PM EDT EXAMINATION: XR CHEST PA AND LATERAL (GENERIC) CLINICAL HISTORY: s/p cabg x 3 TECHNIQUE: Frontal and lateral views of the chest COMPARISON: 01/31/2019 FINDINGS: Since the prior study lines and tubes be en removed. The lungs are of reduced volume with bibasilar atelectasis and sm all bilateral pleural effusions. Postsurgical changes in mediastinum. No pneumothorax or pulmonary edema Procedure Note Margarita Rashid MD - 02/03/2019Formattin g of this note might be different from the original. EXAMINATION: XR CHEST PA AND LATERAL (GE NERIC) CLINICAL HISTORY: s/p cabg x 3 TECHNIQUE: Frontal and lateral views of the chest COMPARISON: 01/31/2019 FINDINGS: Since the prior study lines and tubes be en removed. The lungs are of reduced volume with bibasilar atelectasis and sm all bilateral pleural effusions. Postsurgical changes in mediastinum. No pneumothorax or pulmonary edema IMPRESSION Expected postoperative findings Thank you for letting us participate in the care of this patient. For questions regarding this report, please contact th e number below. Trip Corona MD IMG DX ORDERABLES POCT Glucose (02/03/2019 7:45 AM EDT) athologist Signature POC Glucose 177 65 - 199 [facility] mg/dL [facility] Comment: Supplemental ranges: <140 mg/dL before meals <180 mg/dL all other times of the day Specimen Anatomical Collection Method Collection Time Receive d Time (Source) Location / / Volume Laterality Blood specimen 02/03/2019 7:45 AM 019 7:45 (specimen) EDT AM EDT Trip Corona MD POINT OF CARE TEST ORDERABLE S Performing Organization Address City/[facility]/ZIP Code Phon e Number [address] POCT Glucose (02/03/2019 6:47 AM EDT) athologist Signature POC Glucose 181 65 - 199 [facility] mg/dL [facility] Comment: Supplemental ranges: <140 mg/dL before meals <180 mg/dL all other times of the day Specimen Anatomical Collection Method Collection Time Receive d Time (Source) Location / / Volume Laterality Blood specimen 02/03/2019 6:47 AM 019 6:47 (specimen) EDT AM EDT Trip Corona MD POINT OF CARE TEST ORDERABLE S Performing Organization Address City/State/[place] [address] POCT Glucose (02/03/2019 5:44 AM EDT) athologist Signature POC Glucose 169 65 - 199 [facility] mg/dL [facility] Comment: Supplemental ranges: <140 mg/dL before meals <180 mg/dL all other times of the day Specimen Anatomical Collection Method Collection Time Receive d Time (Source) Location / / Volume Laterality Blood specimen 02/03/2019 5:44 AM 019 5:44 (specimen) EDT AM EDT Trip Corona MD POINT OF CARE TEST ORDERABLE S Performing Organization Address City/[facility]/ZIP Code Phon e Number [address] POCT Glucose (02/03/2019 4:48 AM EDT) P athologist Signature POC Glucose 185 65 - 199 [place] mg/dL [facility] Comment: Supplemental ranges: <140 mg/dL before meals <180 mg/dL all other times of the day Specimen Anatomical Collection Method Collection Time Receive d Time (Source) Location / / Volume Laterality Blood specimen 02/03/2019 4:48 AM 019 4:48 (specimen) EDT AM EDT Trip Corona MD POINT OF CARE TEST ORDERABLE S Performing Organization Address City/[facility]/[place] [address] POCT Glucose (02/03/2019 3:29 AM EDT) athologist Signature POC Glucose 158 65 - 199 [place] mg/dL [facility] Comment: Supplemental ranges: <140 mg/dL before meals <180 mg/dL all other times of the day Specimen Anatomical Collection Method Collection Time Receive d Time (Source) Location / / Volume Laterality Blood specimen 02/03/2019 3:29 AM 019 3:29 (specimen) EDT AM EDT Trip Corona MD POINT OF CARE TEST ORDERABLE S Performing Organization Address City/State/[place] [address] POCT Glucose (02/03/2019 2:28 AM EDT) P athologist Signature POC Glucose 139 65 - 199 [place] mg/dL [facility] Comment: Supplemental ranges: <140 mg/dL before meals <180 mg/dL all other times of the day Specimen Anatomical Collection Method Collection Time Receive d Time (Source) Location / / Volume Laterality Blood specimen 02/03/2019 2:28 AM 019 2:28 (specimen) EDT AM EDT Trip Corona MD POINT OF CARE TEST ORDERABLE S Performing Organization Address City/State/[place] [address] (ABNORMAL) Differential, Automated (02/03/2019 2:27 AM EDT) [facility] Method Time Signature Neutrophils % 69.3 % [facility] Neutr Abs (ANC) 12.62 (H) 1.70 - [facility] 6.10 [facility] x10(3)/[facility] LABORATORY Lymphocytes % 20.0 % [facility] Lymphocytes Abs 3.6 (H) 0.9 - 3.2 [facility] x10(3)/[facility] LABORATORY Monocytes % 9.6 % [facility] Monocyte Abs 1.8 (H) 0.3 - 0.9 [facility] x10(3)/[facility] LABORATORY Eosinophils % 0.4 % [facility] Eosinophils Abs 0.1 0.0 - 0.4 [facility] x10(3)/[facility] LABORATORY Basophils % 0.3 % [facility] Basophils Abs 0.0 0.0 - 0.1 [facility] x10(3)/[facility] LABORATORY Immature Gran % 0.40 % [facility] Comment: Immature granulocytes(IG's)percentage an d absolute count will include metamyelocytes, myelocytes, and promyelo cytes. Blood smears from CBCs yielding IG's will be scanned manually for concor dance. If this scan disagrees with the automated IG or if promyelocytes are not ed, a manual differential will be performed. [place]in[place] Gran Abs 0.08 (H) 0.00 - 0.04 x10(3)/[facility] LABORATORY Specimen Anatomical Collection Method Collection Time Receive d Time (Source) Location / / Volume Laterality Blood specimen 02/03/2019 2:27 AM 019 3:12 (specimen) EDT AM EDT Resulting Agency Comment Spec In Lab [place] [facility] HEMATOLOGY ORDERABLES Performing Organization Address City/State/[place] [address] (ABNORMAL) Hemogram (02/03/2019 2:27 AM EDT) P athologist Signature WBC 18.2 (H) 4.0 - 9.5 [facility] x10(3)/[facility] LABORATORY RBC 3.24 (L) 4.58 - [facility] 5.54 [facility] x10(6)/[facility] LABORATORY Hemoglobin 9.7 (L) 13.7 - [facility] 16.5 gm/dL [facility] Comment: This result has been called to DAVID DODD by SHANIQUA MAXWELL on 02 03 2019 at 0357, and has been read back. Hematocrit 29.3 (L) 40.5 - 48.5 % [facility] MCV 90.4 82.9 - 93.1 [facility] LABORATORY MCH 29.9 27.5 - 32.1 pg [facility] MCHC 33.1 32.0 - 35.7 gm/dL [facility] LAB[facility]ATORY Platelets 170 145 - 357 x10(3)/[facility] LABORATORY RDWSD 46.8 (H) 36.0 - 45.0 [facility] LABORATORY RDWCV 14.0 (H) 11.4 - 13.8 % [facility] LABORATORY MPV 11.1 7.6 - 12.9 [facility] LABORATORY nRBC % Auto 0.0 % [facility] LABORATORY nRBC Abs Auto 0.000 0.000 - 0.000 x10(3)/[facility] LABORATORY Specimen Anatomical Collection Method Collection Time Receive d Time (Source) Location / / Volume Laterality Blood specimen 02/03/2019 2:27 AM 019 3:12 (specimen) EDT AM EDT Resulting Agency Comment Spec In Lab [place] [facility] HEMATOLOGY ORDERABLES Performing Organization Address City/State/[place] [address] (ABNORMAL) Basic Metabolic Panel (non-fasting) (02/03/2019 2:27 AM EDT) athologist Signature Glucose Lvl 152 65 - 199 [facility] mg/dL [facility] Comment: Diabetes: >=200 mg/dL plus symp toms BUN 25 (H) 10 - 20 mg/dL [facility] Creatinine 0.88 0.80 - 1.50 mg/dL [facility] Sodium 135 135 - 145 mmol/L [facility] Potassium 4.3 3.5 - 5.0 mmol/L [facility] Comment: Please note: ??Patients with WBC >100,00 0 may have falsely elevated Potassium levels. ??For accurate Potassium quantif ication in these patients send serum separator tube (gold top) for subsequent determinations. ??Contact the Clinical Chemistry Laboratory if there are any qu estions. Chloride 100 98 - 107 mmol/L [facility] CO2 23 22 - 31 mmol/L [facility] Comment: result rechecked-kb Anion Gap 12 5 - 15 mmol/L [facility] Calcium 7.9 (L) 8.5 - 10.5 mg/dL [facility] Estimated GFR 90 >=60 mL/min/1.73 m?? [facility] Comment: The eGFR was calculated using the CKD-EP I equation. As with all creatinine based estimates of kidney function, eGFR values calculated with the CKD-EPI equation are not accurate in patients wi th acute kidney failure, extremes of body mass or the acutely ill. [email or web address] eGFR 104 >=60 mL/min/1.73 m?? [facility] Comment: The eGFR was calculated using the CKD-EP I equation. As with all creatinine based estimates of kidney function, eGFR values calculated with the CKD-EPI equation are not accurate in patients wi th acute kidney failure, extremes of body mass or the acutely ill. [email or web address] – [email or web address] Specimen Anatomical Collection Method Collection Time Receive d Time (Source) Location / / Volume Laterality Blood specimen 02/03/2019 2:27 AM 019 3:12 (specimen) EDT AM EDT Resulting Agency Comment Spec In Lab Trip Corona MD CHEMISTRY ORDERABLES Performing Organization Address City/[facility]/[place] [address] EKG 12 Lead (02/03/2019 1:33 AM EDT) Component Value Ref Range Test Analysis Performed Pathologis t Method Time At Signature Ventricular rate 144 BPM MUSE SYSTEM Atrial Rate 120 BPM MUSE SYSTEM QRS Duration 116 ms MUSE SYSTEM Q-T Interval 314 ms MUSE SYSTEM QTC Calculated 486 ms MUSE SYSTEM (Bezet) Calculated R [place] -69 degrees MUSE SYSTEM Calculated T [place] 112 degrees MUSE SYSTEM INTERPRETATION Atrial fibrillation with rapid ventricular response MUSE SYSTEM Left axis deviation Anterolateral infarct (cited on or before 21-JUL-2018) Abnormal ECG When compared with ECG of 31-JAN-2019 20:20, Atrial fibrillation has replaced Sinus rhythm Confirmed by MD Barry, Onofre Jung ([id number]) on 02/03/2019 10:47: 22 AM Specimen Anatomical Collection Method Collection Time Receive d Time (Source) Location / / Volume Laterality 02/03/2019 1:33 AM 9 EDT 10:47 AM EDT Trip Corona MD ECG ORDERABLES Performing Organization Address City/[facility]/ZIP Code Phon e Number MUSE SYSTEM POCT Glucose (02/03/2019 1:30 AM EDT) P athologist Signature POC Glucose 143 65 - 199 [facility] mg/dL [facility] Comment: Supplemental ranges: <140 mg/dL before meals <180 mg/dL all other times of the day Specimen Anatomical Collection Method Collection Time Receive d Time (Source) Location / / Volume Laterality Blood specimen 02/03/2019 1:30 AM 019 1:30 (specimen) EDT AM EDT Trip Corona MD POINT OF CARE TEST ORDERABLE S Performing Organization Address City/[facility]/ZIP [facility] [place] [address] POCT Glucose (02/03/2019 12:31 AM EDT) athologist Signature POC Glucose 130 65 - 199 [facility] mg/dL [facility] Comment: Supplemental ranges: <140 mg/dL before meals <180 mg/dL all other times of the day Specimen Anatomical Collection Method Collection Time Receive d Time (Source) Location / / Volume Laterality Blood specimen 02/03/2019 12:31 9 (specimen) AM EDT 12:31 AM EDT Trip Corona MD POINT OF CARE TEST ORDERABLE S Performing Organization Address City/State/ZIP Code Phon e Number [address] POCT Glucose (02/02/2019 11:30 PM EDT) athologist Signature POC Glucose 129 65 - 199 [facility] mg/dL [facility] Comment: Supplemental ranges: <140 mg/dL before meals <180 mg/dL all other times of the day Specimen Anatomical Collection Method Collection Time Receive d Time (Source) Location / / Volume Laterality Blood specimen 02/02/2019 11:30 9 (specimen) PM EDT 11:30 PM EDT Trip Corona MD POINT OF CARE TEST ORDERABLE S Performing Organization Address City/State/ZIP Code Phon e Number [address] POCT Glucose (02/02/2019 10:35 PM EDT) athologist Signature POC Glucose 150 65 - 199 [facility] mg/dL [facility] Comment: Supplemental ranges: <140 mg/dL before meals <180 mg/dL all other times of the day Specimen Anatomical Collection Method Collection Time Receive d Time (Source) Location / / Volume Laterality Blood specimen 02/02/2019 10:35 9 (specimen) PM EDT 10:35 PM EDT Trip Corona MD POINT OF CARE TEST ORDERABLE S Performing Organization Address City/State/ZIP Code Phon e Number [address] POCT Glucose (02/02/2019 9:24 PM EDT) athologist Signature POC Glucose 158 65 - 199 [facility] mg/dL [facility] Comment: Supplemental ranges: <140 mg/dL before meals <180 mg/dL all other times of the day Specimen Anatomical Collection Method Collection Time Receive d Time (Source) Location / / Volume Laterality Blood specimen 02/02/2019 9:24 PM 019 9:24 (specimen) EDT PM EDT Trip Corona MD POINT OF CARE TEST ORDERABLE S Performing Organization Address City/State/[place] [address] POCT Glucose (02/02/2019 8:24 PM EDT) athologist Signature POC Glucose 181 65 - 199 [place] mg/dL [facility] Comment: Supplemental ranges: <140 mg/dL before meals <180 mg/dL all other times of the day Specimen Anatomical Collection Method Collection Time Receive d Time (Source) Location / / Volume Laterality Blood specimen 02/02/2019 8:24 PM 019 8:24 (specimen) EDT PM EDT Trip Corona MD POINT OF CARE TEST ORDERABLE S Performing Organization Address City/[facility]/[place] [address] (ABNORMAL) POCT Glucose (02/02/2019 6:52 PM EDT) athologist Signature POC Glucose 218 (H) 65 - 199 [place] mg/dL [facility] Comment: Supplemental ranges: <140 mg/dL before meals <180 mg/dL all other times of the day Specimen Anatomical Collection Method Collection Time Receive d Time (Source) Location / / Volume Laterality Blood specimen 02/02/2019 6:52 PM 019 6:52 (specimen) EDT PM EDT Trip Corona MD POINT OF CARE TEST ORDERABLE S Performing Organization Address City/State/[place] [address] (ABNORMAL) POCT Glucose (02/02/2019 5:46 PM EDT) athologist Signature POC Glucose 217 (H) 65 - 199 [facility] mg/dL [facility] Comment: Supplemental ranges: <140 mg/dL before meals <180 mg/dL all other times of the day Specimen Anatomical Collection Method Collection Time Receive d Time (Source) Location / / Volume Laterality Blood specimen 02/02/2019 5:46 PM 019 5:46 (specimen) EDT PM EDT Trip Corona MD POINT OF CARE TEST ORDERABLE S Performing Organization Address City/State/[place] [address] POCT Glucose (02/02/2019 4:48 PM EDT) athologist Signature POC Glucose 187 65 - 199 [facility] mg/dL [facility] Comment: Supplemental ranges: <140 mg/dL before meals <180 mg/dL all other times of the day Specimen Anatomical Collection Method Collection Time Receive d Time (Source) Location / / Volume Laterality Blood specimen 02/02/2019 4:48 PM 019 4:48 (specimen) EDT PM EDT Trip Corona MD POINT OF CARE TEST ORDERABLE S Performing Organization Address City/[facility]/[place] [address] (ABNORMAL) POCT Glucose (02/02/2019 3:49 PM EDT) athologist Signature POC Glucose 222 (H) 65 - 199 [facility] mg/dL [facility] Comment: Supplemental ranges: <140 mg/dL before meals <180 mg/dL all other times of the day Specimen Anatomical Collection Method Collection Time Receive d Time (Source) Location / / Volume Laterality Blood specimen 02/02/2019 3:49 PM 019 3:49 (specimen) EDT PM EDT Trip Corona MD POINT OF CARE TEST ORDERABLE S Performing Organization Address City/State/[place] [address] (ABNORMAL) POCT Glucose (02/02/2019 2:51 PM EDT) athologist Signature POC Glucose 232 (H) 65 - 199 [place] mg/dL [facility] Comment: Supplemental ranges: <140 mg/dL before meals <180 mg/dL all other times of the day Specimen Anatomical Collection Method Collection Time Receive d Time (Source) Location / / Volume Laterality Blood specimen 02/02/2019 2:51 PM 019 2:51 (specimen) EDT PM EDT Trip Corona MD POINT OF CARE TEST ORDERABLE S Performing Organization Address City/State/[place] [address] (ABNORMAL) POCT Glucose (02/02/2019 2:07 PM EDT) athologist Signature POC Glucose 263 (H) 65 - 199 [facility] mg/dL [facility] Comment: Supplemental ranges: <140 mg/dL before meals <180 mg/dL all other times of the day Specimen Anatomical Collection Method Collection Time Receive d Time (Source) Location / / Volume Laterality Blood specimen 02/02/2019 2:07 PM 019 2:07 (specimen) EDT PM EDT Trip Corona MD POINT OF CARE TEST ORDERABLE S Performing Organization Address City/[facility]/[place] [address] (ABNORMAL) POCT Glucose (02/02/2019 1:01 PM EDT) athologist Signature POC Glucose 226 (H) 65 - 199 [place] mg/dL [facility] Comment: Supplemental ranges: <140 mg/dL before meals <180 mg/dL all other times of the day Specimen Anatomical Collection Method Collection Time Receive d Time (Source) Location / / Volume Laterality Blood specimen 02/02/2019 1:01 PM 019 1:01 (specimen) EDT PM EDT Trip Corona MD POINT OF CARE TEST ORDERABLE S Performing Organization Address City/State/ZIP Code [place] [address] POCT Glucose (02/02/2019 12:15 PM EDT) athologist Signature POC Glucose 182 65 - 199 [facility] mg/dL [facility] Comment: Supplemental ranges: <140 mg/dL before meals <180 mg/dL all other times of the day Specimen Anatomical Collection Method Collection Time Receive d Time (Source) Location / / Volume Laterality Blood specimen 02/02/2019 12:15 9 (specimen) PM EDT 12:15 PM EDT Trip Corona MD POINT OF CARE TEST ORDERABLE S Performing Organization Address City/State/ZIP Code Phon e Number [address] (ABNORMAL) Urinalysis Microscopic Exam (02/02/2019 11:49 AM EDT) athologist Signature RBC UA 30 (H) 0 - 3 /HPF [facility] WBC UA 3 0 - 3 /HPF [facility] Hyaline Cast 3 (H) 0 - 2 /LPF [facility] LABOR[facility]ORY Specimen (Source) Anatomical Collection Method Collection Time Re ceived Time Location / / Volume Laterality Urine specimen 02/02/2019 11:49 9 obtained via AM EDT 12:01 PM EDT indwelling urinary catheter (specimen) Resulting Agency Comment Spec In Lab [place] [facility] URINE ORDERABLES Performing Organization Address City/State/[place] [address] (ABNORMAL) Urinalysis with reflex Culture (02/02/2019 11:49 AM EDT) Patholo gist Method Time Signature Glucose UA Negative Negative [facility] Protein UA Negative Negative [facility] mg/dL [facility] Bilirubin UA Negative Negative [facility] mg/dL [facility] Comment: Clinical correlation required for positi ve Urine Bilirubin results as false positive may occur with some drugs and d rug related products. If a false positive is suspected a serum total bili steel should be considered if clinically indicated. Urobilinogen UA Normal Normal mg/dL [facility] pH UA 5.0 5.0 - 8.0 [facility] Blood UA Moderate (A) Negative mg/dL [facility] Ketones UA Negative Negative mg/dL [facility] Nitrite UA Negative Negative [facility] Leukocytes UA Negative Negative [facility] LABORATORY Appearance UA Clear Clear [facility] Spec Mission UA 1.019 1.002 - 1.030 [facility] LABORATORY Color UA Yellow Yellow [facility] Culture Reflexed No [facility] Specimen (Source) Anatomical Collection Method Collection Time Re ceived Time Location / / Volume Laterality Urine specimen 02/02/2019 11:49 9 obtained via AM EDT 12:01 PM EDT indwelling urinary catheter (specimen) Resulting Agency Comment Spec In Lab Trip Corona MD URINE ORDERABLES Performing Organization Address City/State/[place] [address] Blood culture (02/02/2019 10:05 AM EDT) Patholo gist Method Time Signature Blood Culture No growth [facility] at 5 days. [facility] Specimen Anatomical Collection Method Collection Time Receive d Time (Source) Location / / Volume Laterality Blood specimen 02/02/2019 10:05 9 (specimen) AM EDT 10:27 AM EDT Resulting Agency Comment Spec In Lab Trip Corona MD MICROBIOLOGY - BLOOD ORDERAB LES Performing Organization Address City/State/[place] [address] (ABNORMAL) POCT Glucose (02/02/2019 10:00 AM EDT) P athologist Signature POC Glucose 209 (H) 65 - 199 [facility] mg/dL [facility] Comment: Supplemental ranges: <140 mg/dL before meals <180 mg/dL all other times of the day Specimen Anatomical Collection Method Collection Time Receive d Time (Source) Location / / Volume Laterality Blood specimen 02/02/2019 10:00 9 (specimen) AM EDT 10:00 AM EDT Trip Corona MD POINT OF CARE TEST ORDERABLE S Performing Organization Address City/State/ZIP Code Phon e Number [address] POCT Glucose (02/02/2019 7:40 AM EDT) P athologist Signature POC Glucose 154 65 - 199 [place] mg/dL [facility] Comment: Supplemental ranges: <140 mg/dL before meals <180 mg/dL all other times of the day Specimen Anatomical Collection Method Collection Time Receive d Time (Source) Location / / Volume Laterality Blood specimen 02/02/2019 7:40 AM 019 7:40 (specimen) EDT AM EDT Trip Corona MD POINT OF CARE TEST ORDERABLE S Performing Organization Address City/State/[place] [address] POCT Glucose (02/02/2019 6:33 AM EDT) P athologist Signature POC Glucose 158 65 - 199 [place] mg/dL [facility] Comment: Supplemental ranges: <140 mg/dL before meals <180 mg/dL all other times of the day Specimen Anatomical Collection Method Collection Time Receive d Time (Source) Location / / Volume Laterality Blood specimen 02/02/2019 6:33 AM 019 6:33 (specimen) EDT AM EDT Trip Corona MD POINT OF CARE TEST ORDERABLE S Performing Organization Address City/State/[place] [address] POCT Glucose (02/02/2019 4:23 AM EDT) P athologist Signature POC Glucose 157 65 - 199 [facility] [place] mg/dL [facility] Comment: Supplemental ranges: <140 mg/dL before meals <180 mg/dL all other times of the day Specimen Anatomical Collection Method Collection Time Receive d Time (Source) Location / / Volume Laterality Blood specimen 02/02/2019 4:23 AM 019 4:23 (specimen) EDT AM EDT Trip Corona MD POINT OF CARE TEST ORDERABLE S Performing Organization Address City/[facility]/[place] [address] Potassium (02/02/2019 4:15 AM EDT) athologist Signature Potassium 4.8 3.5 - 5.0 [facility] mmol/L [facility] Comment: Please note: ??Patients with WBC >100,00 0 may have falsely elevated Potassium levels. ??For accurate Potassium quantif ication in these patients send serum separator tube (gold top) for subsequent determinations. ??Contact the Clinical Chemistry Laboratory if there are any qu estions. Specimen Anatomical Collection Method Collection Time Receive d Time (Source) Location / / Volume Laterality Blood specimen 02/02/2019 4:15 AM 019 4:27 (specimen) EDT AM EDT Resulting Agency Comment Spec In Lab Trip Corona MD CHEMISTRY ORDERABLES Performing Organization Address City/[facility]/ZIP Code Phon e Number [address] POCT Glucose (02/02/2019 2:13 AM EDT) athologist Signature POC Glucose 141 65 - 199 [facility] Comment: Supplemental ranges: <140 mg/dL before meals <180 mg/dL all other times of the day Specimen Anatomical Collection Method Collection Time Receive d Time (Source) Location / / Volume Laterality Blood specimen 02/02/2019 2:13 AM 019 2:13 (specimen) EDT AM EDT Trip Corona MD POINT OF CARE TEST ORDERABLE S Performing Organization Address City/[facility]/ZIP Code Phon e Number [address] POCT Glucose (02/02/2019 1:00 AM EDT) athologist Signature POC Glucose 146 65 - 199 [facility] [place] mg/dL [facility] Comment: Supplemental ranges: <140 mg/dL before meals <180 mg/dL all other times of the day Specimen Anatomical Collection Method Collection Time Receive d Time (Source) Location / / Volume Laterality Blood specimen 02/02/2019 1:00 AM 019 1:00 (specimen) EDT AM EDT Trip Corona MD POINT OF CARE TEST ORDERABLE S Performing Organization Address City/State/ZIP Code Phon e Number [address] POCT Glucose (02/02/2019 12:08 AM EDT) athologist Signature POC Glucose 148 65 - 199 [place] mg/dL [facility] Comment: Supplemental ranges: <140 mg/dL before meals <180 mg/dL all other times of the day Specimen Anatomical Collection Method Collection Time Receive d Time (Source) Location / / Volume Laterality Blood specimen 02/02/2019 12:08 9 (specimen) AM EDT 12:08 AM EDT Trip Corona MD POINT OF CARE TEST ORDERABLE S Performing Organization Address City/State/ZIP Code Phon e Number [address] POCT Glucose (02/01/2019 11:03 PM EDT) athologist Signature POC Glucose 169 65 - 199 [place] mg/dL [facility] Comment: Supplemental ranges: <140 mg/dL before meals <180 mg/dL all other times of the day Specimen Anatomical Collection Method Collection Time Receive d Time (Source) Location / / Volume Laterality Blood specimen 02/01/2019 11:03 9 (specimen) PM EDT 11:03 PM EDT Trip Corona MD POINT OF CARE TEST ORDERABLE S Performing Organization Address City/State/ZIP Code Phon e Number [address] POCT Glucose (02/01/2019 10:25 PM EDT) athologist Signature POC Glucose 165 65 - 199 [place] mg/dL [facility] Comment: Supplemental ranges: <140 mg/dL before meals <180 mg/dL all other times of the day Specimen Anatomical Collection Method Collection Time Receive d Time (Source) Location / / Volume Laterality Blood specimen 02/01/2019 10:25 9 (specimen) PM EDT 10:25 PM EDT Trip Corona MD POINT OF CARE TEST ORDERABLE S Performing Organization Address City/State/[place] [address] POCT Glucose (02/01/2019 9:06 PM EDT) athologist Signature POC Glucose 182 65 - 199 [facility] [place] mg/dL [facility] Comment: Supplemental ranges: <140 mg/dL before meals <180 mg/dL all other times of the day Specimen Anatomical Collection Method Collection Time Receive d Time (Source) Location / / Volume Laterality Blood specimen 02/01/2019 9:06 PM 019 9:06 (specimen) EDT PM EDT Trip Corona MD POINT OF CARE TEST ORDERABLE S Performing Organization Address City/State/[place] [address] (ABNORMAL) POCT Glucose (02/01/2019 7:26 PM EDT) athologist Signature POC Glucose 202 (H) 65 - 199 [place] mg/dL [facility] Comment: Supplemental ranges: <140 mg/dL before meals <180 mg/dL all other times of the day Specimen Anatomical Collection Method Collection Time Receive d Time (Source) Location / / Volume Laterality Blood specimen 02/01/2019 7:26 PM 019 7:26 (specimen) EDT PM EDT Trip Corona MD POINT OF CARE TEST ORDERABLE S Performing Organization Address City/State/[place] [address] (ABNORMAL) POCT Glucose (02/01/2019 6:12 PM EDT) athologist Signature POC Glucose 228 (H) 65 - 199 [place] mg/dL [facility] Comment: Supplemental ranges: <140 mg/dL before meals <180 mg/dL all other times of the day Specimen Anatomical Collection Method Collection Time Receive d Time (Source) Location / / Volume Laterality Blood specimen 02/01/2019 6:12 PM 019 6:12 (specimen) EDT PM EDT Trip Corona MD POINT OF CARE TEST ORDERABLE S Performing Organization Address City/State/ZIP Code Phon e Number [address] POCT Glucose (02/01/2019 4:42 PM EDT) athologist Signature POC Glucose 177 65 - 199 [place] mg/dL [facility] Comment: Supplemental ranges: <140 mg/dL before meals <180 mg/dL all other times of the day Specimen Anatomical Collection Method Collection Time Receive d Time (Source) Location / / Volume Laterality Blood specimen 02/01/2019 4:42 PM 019 4:42 (specimen) EDT PM EDT Trip Corona MD POINT OF CARE TEST ORDERABLE S Performing Organization Address City/State/ZIP Code Phon e Number [address] POCT Glucose (02/01/2019 2:58 PM EDT) athologist Signature POC Glucose 172 65 - 199 [place] mg/dL [facility] Comment: Supplemental ranges: <140 mg/dL before meals <180 mg/dL all other times of the day Specimen Anatomical Collection Method Collection Time Receive d Time (Source) Location / / Volume Laterality Blood specimen 02/01/2019 2:58 PM 019 2:58 (specimen) EDT PM EDT Trip Corona MD POINT OF CARE TEST ORDERABLE S Performing Organization Address City/State/ZIP Code Phon e Number [address] POCT Glucose (02/01/2019 1:10 PM EDT) athologist Signature POC Glucose 132 65 - 199 [place] mg/dL [facility] Comment: Supplemental ranges: <140 mg/dL before meals <180 mg/dL all other times of the day Specimen Anatomical Collection Method Collection Time Receive d Time (Source) Location / / Volume Laterality Blood specimen 02/01/2019 1:10 PM 019 1:10 (specimen) EDT PM EDT Trip Corona MD POINT OF CARE TEST ORDERABLE S Performing Organization Address City/State/ZIP Code Phon e Number [address] POCT Glucose (02/01/2019 12:07 PM EDT) athologist Signature POC Glucose 109 65 - 199 [place] mg/dL [facility] Comment: Supplemental ranges: <140 mg/dL before meals <180 mg/dL all other times of the day Specimen Anatomical Collection Method Collection Time Receive d Time (Source) Location / / Volume Laterality Blood specimen 02/01/2019 12:07 9 (specimen) PM EDT 12:07 PM EDT Trip Corona MD POINT OF CARE TEST ORDERABLE S Performing Organization Address City/State/ZIP Code Phon e Number [address] POCT Glucose (02/01/2019 10:41 AM EDT) athologist Signature POC Glucose 108 65 - 199 [place] mg/dL [facility] Comment: Supplemental ranges: <140 mg/dL before meals <180 mg/dL all other times of the day Specimen Anatomical Collection Method Collection Time Receive d Time (Source) Location / / Volume Laterality Blood specimen 02/01/2019 10:41 9 (specimen) AM EDT 10:41 AM EDT Trip Corona MD POINT OF CARE TEST ORDERABLE S Performing Organization Address City/State/ZIP Code Phon e Number [address] POCT Glucose (02/01/2019 10:00 AM EDT) athologist Signature POC Glucose 83 65 - 199 [place] mg/dL [facility] Comment: Supplemental ranges: <140 mg/dL before meals <180 mg/dL all other times of the day Specimen Anatomical Collection Method Collection Time Receive d Time (Source) Location / / Volume Laterality Blood specimen 02/01/2019 10:00 9 (specimen) AM EDT 10:00 AM EDT Trip Corona MD POINT OF CARE TEST ORDERABLE S Performing Organization Address City/State/[place] [address] POCT Glucose (02/01/2019 8:28 AM EDT) athologist Signature POC Glucose 116 65 - 199 [place] mg/dL [facility] Comment: Supplemental ranges: <140 mg/dL before meals <180 mg/dL all other times of the day Specimen Anatomical Collection Method Collection Time Receive d Time (Source) Location / / Volume Laterality Blood specimen 02/01/2019 8:28 AM 019 8:28 (specimen) EDT AM EDT Trip Corona MD POINT OF CARE TEST ORDERABLE S Performing Organization Address City/State/[place] [address] POCT Glucose (02/01/2019 8:04 AM EDT) athologist Signature POC Glucose 120 65 - 199 [place] mg/dL [facility] Comment: Supplemental ranges: <140 mg/dL before meals <180 mg/dL all other times of the day Specimen Anatomical Collection Method Collection Time Receive d Time (Source) Location / / Volume Laterality Blood specimen 02/01/2019 8:04 AM 019 8:04 (specimen) EDT AM EDT Trip Corona MD POINT OF CARE TEST ORDERABLE S Performing Organization Address City/State/[place] [address] POCT Glucose (02/01/2019 6:52 AM EDT) athologist Signature POC Glucose 153 65 - 199 [place] mg/dL [facility] Comment: Supplemental ranges: <140 mg/dL before meals <180 mg/dL all other times of the day Specimen Anatomical Collection Method Collection Time Receive d Time (Source) Location / / Volume Laterality Blood specimen 02/01/2019 6:52 AM 019 6:52 (specimen) EDT AM EDT Trip Corona MD POINT OF CARE TEST ORDERABLE S Performing Organization Address City/State/[place] [address] (ABNORMAL) BLOOD GAS 2 ARTERIAL (02/01/2019 5:58 AM EDT) Analysis Performed At Patho logis Time Signature pH Art 7.43 7.35 - [facility] 7.45 [facility] pCO2 Art 37 35 - 45 [facility] LABORATORY pO2 Art 106 (H) 85 - 104 [facility] LABORATORY HCO3 Art 24.0 20.0 - [facility] 26.0 [facility] mmol/L [facility] BE Art -0.3 -3.0 - 3.0 [facility] mmol/L [facility] Hgb Blood Gas 12.3 (L) 13.7 - [facility] 16.5 gm/dL [facility] O2HB Art 96.6 94.0 - [facility] 97.0 % [facility] COHB Art 0.1 % [facility] Comment: Nonsmokers: 0.5-1.5% COHB Smokers: Variable, but usually less than 10% Toxic: 20-30% COHB Lethal: Greater than 60% COHB METHB Art 0.6 <=1.5 % [facility] Na Whole Blood 136 135 - 145 mmol/L [facility] K Whole Blood 4.8 3.5 - 5.0 mmol/L [facility] Comment: Please note: Patients with WBC >100,000 may have falsely elevated Potassium levels. Contact the Clinical Chemistry L aboratory if there are any questions. ICa Whole Blood 1.10 (L) 1.15 - 1.33 mmol/L [facility] Comment: Note: ??Total bilirubin higher than 20 m g/dL may lead to falsely low ionized calcium. CL Whole Blood 104 98 - 107 mmol/L [facility] Gluc Whole Bld 195 65 - 199 mg/dL [facility] Comment: Diabetes: >=200 mg/dL plus symp toms. Lactate WB 2.4 (H) 0.5 - 2.2 mmol/L [facility] FIO2 Art 40 % [facility] PF Ratio Art 265 [facility] Specimen Anatomical Collection Method Collection Time Receive d Time (Source) Location / / Volume Laterality Blood specimen 02/01/2019 5:58 AM 019 5:58 (specimen) EDT AM EDT Lizz Cabrera MD CHEMISTRY ORDERABLES Performing Organization Address City/[facility] [place] [address] POCT Glucose (02/01/2019 4:43 AM EDT) athologist Signature POC Glucose 191 65 - 199 [facility] Comment: Supplemental ranges: <140 mg/dL before meals <180 mg/dL all other times of the day Specimen Anatomical Collection Method Collection Time Receive d Time (Source) Location / / Volume Laterality Blood specimen 02/01/2019 4:43 AM 019 4:43 (specimen) EDT AM EDT Lizz Cabrera MD POINT OF CARE TEST ORDERABLE S Performing Organization Address City/[facility]/[place] [address] (ABNORMAL) POCT Glucose (02/01/2019 3:23 AM EDT) P athologist Signature POC Glucose 225 (H) 65 - 199 [facility] Comment: Supplemental ranges: <140 mg/dL before meals <180 mg/dL all other times of the day Specimen Anatomical Collection Method Collection Time Receive d Time (Source) Location / / Volume Laterality Blood specimen 02/01/2019 3:23 AM 019 3:23 (specimen) EDT AM EDT Lizz Cabrera MD POINT OF CARE TEST ORDERABLE S Performing Organization Address City/[facility]/[place] [address] (ABNORMAL) BLOOD GAS 2 ARTERIAL (02/01/2019 1:54 AM EDT) Analysis Performed At Patho logist Time Signature pH Art 7.31 (L) 7.35 - [facility] 7.45 [facility] pCO2 Art 35 35 - 45 [facility] mmHg [facility] pO2 Art 93 85 - 104 [facility] mmHg [facility] HCO3 Art 17.3 (L) 20.0 - [facility] 26.0 [facility] mmol/[facility] LABORATORY BE Art -9.0 (L) -3.0 - 3.0 [facility] mmol/L [facility] Hgb Blood Gas 13.0 (L) 13.7 - [facility] 16.5 gm/dL [facility] O2HB Art 94.8 94.0 - [facility] 97.0 % [facility] COHB Art 0.4 % [facility] Comment: Nonsmokers: 0.5-1.5% COHB Smokers: Variable, but usually less than 10% Toxic: 20-30% COHB Lethal: Greater than 60% COHB METHB Art 0.7 <=1.5 % [facility] Na Whole Blood 138 135 - 145 mmol/L [facility] K Whole Blood 4.3 3.5 - 5.0 mmol/L [facility] Comment: Please note: Patients with WBC >100,000 may have falsely elevated Potassium levels. Contact the Clinical Chemistry L aboratory if there are any questions. ICa Whole Blood 1.06 (L) 1.15 - 1.33 mmol/L [facility] Comment: Note: ??Total bilirubin higher than 20 m g/dL may lead to falsely low ionized calcium. CL Whole Blood 103 98 - 107 mmol/L [facility] Gluc Whole Bld 276 (H) 65 - 199 mg/dL [facility] Comment: Diabetes: >=200 mg/dL plus symp toms. Lactate WB 8.5 (Critical) 0.5 - 2.2 mmol/L [facility] FIO2 Art 40 % [facility] PF Ratio Art 232 [facility] Specimen Anatomical Collection Method Collection Time Receive d Time (Source) Location / / Volume Laterality Blood specimen 02/01/2019 1:54 AM 019 1:54 (specimen) EDT AM EDT Lizz Cabrera MD CHEMISTRY ORDERABLES Performing Organization Address City/State/[place] [address] (ABNORMAL) BLOOD GAS 2 ARTERIAL (02/01/2019 12:35 AM EDT) [facility] gist Method Time Signature pH Art 7.30 (L) 7.35 - [facility] 7.45 [facility] pCO2 Art 33 (L) 35 - 45 [facility] LABORATORY pO2 Art 101 85 - 104 [facility] LABORATORY HCO3 Art 15.9 (L) 20.0 - [facility] 26.0 [facility] mmol/L [facility] BE Art -10.6 (L) -3.0 - 3.0 [facility] mmol/L [facility] Hgb Blood Gas 13.6 (L) 13.7 - [facility] 16.5 gm/dL [facility] O2HB Art 95.3 94.0 - [facility] 97.0 % [facility] COHB Art 0.5 % [facility] Comment: Nonsmokers: 0.5-1.5% COHB Smokers: Variable, but usually less than 10% Toxic: 20-30% COHB Lethal: Greater than 60% COHB METHB Art 0.7 <=1.5 % [facility] Na Whole Blood 137 135 - 145 mmol/L [facility] K Whole Blood 4.1 3.5 - 5.0 mmol/L [facility] Comment: Please note: Patients with WBC >100,000 may have falsely elevated Potassium levels. Contact the Clinical Chemistry L aboratory if there are any questions. ICa Whole Blood 1.09 (L) 1.15 - 1.33 mmol/L [facility] Comment: Note: ??Total bilirubin higher than 20 m g/dL may lead to falsely low ionized calcium. CL Whole Blood 103 98 - 107 mmol/L [facility] Gluc Whole Bld 270 (H) 65 - 199 mg/dL [facility] Comment: Diabetes: >=200 mg/dL plus symp toms. Lactate WB 6.7 (Critical) 0.5 - 2.2 mmol/L [facility] FIO2 Art 40 % [facility] PF Ratio Art 252 [facility] Specimen Anatomical Collection Method Collection Time Receive d Time (Source) Location / / Volume Laterality Blood specimen 02/01/2019 12:35 9 (specimen) AM EDT 12:35 AM EDT Lizz Cabrera MD CHEMISTRY ORDERABLES Performing Organization Address City/[facility]/[place] [address] Scan, Peripheral Blood (02/01/2019 12:22 AM EDT) [facility] Method Time Signature Plat Estimate Normal [facility] RBC Morphology Abnormal [facility] Ovalocytes 1-5 /HPF [facility] Otoe Cells gtr than 10 /HPF [facility] Pappenheimer Bdy Present >1/HPF [facility] Specimen Anatomical Collection Method Collection Time Receive d Time (Source) Location / / Volume Laterality Blood specimen 02/01/2019 12:22 9 1:16 (specimen) AM EDT AM EDT Resulting Agency Comment Spec In Lab Sacha LEI HEMATOLOGY ORDERABLES Performing Organization Address City/[facility]/[place] [address] (ABNORMAL) Differential, Automated (02/01/2019 12:22 AM EDT) [employer] Method Time Signature Neutrophils % 83.1 % [facility] Neutr Abs (ANC) 23.60 (H) 1.70 - [facility] 6.10 [facility] x10(3)/[facility] L LABORATORY Lymphocytes % 9.1 % [facility] Lymphocytes Abs 2.6 0.9 - 3.2 [facility] x10(3)/[facility] LABORATORY Monocytes % 6.3 % [facility] Monocyte Abs 1.8 (H) 0.3 - 0.9 [facility] x10(3)/[facility] LABORATORY Eosinophils % 0.1 % [facility] Eosinophils Abs 0.0 0.0 - 0.4 [facility] x10(3)/[facility] LABORATORY Basophils % 0.3 % [facility] Basophils Abs 0.1 0.0 - 0.1 [facility] x10(3)/[facility] LABORATORY Immature Gran % 1.10 % [facility] Comment: Immature granulocytes(IG's)percentage an d absolute count will include metamyelocytes, myelocytes, and promyelo cytes. Blood smears from CBCs yielding IG's will be scanned manually for concor dance. If this scan disagrees with the automated IG or if promyelocytes are not ed, a manual differential will be performed. Corinne Gran Abs 0.32 (H) 0.00 - 0.04 x10(3)/[facility] LABORATORY Specimen Anatomical Collection Method Collection Time Receive d Time (Source) Location / / Volume Laterality Blood specimen 02/01/2019 12:22 9 (specimen) AM EDT 12:33 AM EDT Resulting Agency Comment Spec In Lab Sacha LEI HEMATOLOGY ORDERABLES Performing Organization Address City/State/[place] [address] (ABNORMAL) Hemogram (02/01/2019 12:22 AM EDT) Analysis Performed At Patho logist Time Signature WBC 28.4 (H) 4.0 - 9.5 [facility] x10(3)/[facility] LABORATORY RBC 4.08 (L) 4.58 - [facility] 5.54 [facility] x10(6)/[facility] LABORATORY Hemoglobin 12.3 (L) 13.7 - [facility] 16.5 gm/dL [facility] Hematocrit 36.7 (L) 40.5 - [facility] 48.5 % [facility] MCV 90.0 82.9 - [facility] [facility] LAB[facility]ATORY MCH 30.6 27.5 - [facility].1 pg [facility] MCHC 34.1 32.0 - [facility] 35.7 gm/dL [facility] Platelets 273 145 - 357 [facility] x10(3)/[facility] LABORATORY RDWSD 43.2 36.0 - [facility]0 [facility] LABORATORY RDWCV 13.3 11.4 - [facility] 13.8 % [facility] LABORATORY MPV 11.2 7.6 - 12.9 [facility] LABORATORY nRBC % Auto 0.0 % [facility]ATORY nRBC Abs Auto 0.000 0.000 - [facility]000 [facility] x10(3)/[facility] LABORATORY Specimen Anatomical Collection Method Collection Time Receive d Time (Source) Location / / Volume Laterality Blood specimen 02/01/2019 12:22 9 (specimen) AM EDT 12:33 AM EDT Resulting Agency Comment Spec In Lab Sacha LEI HEMATOLOGY ORDERABLES Performing Organization Address City/State/[place] [address] (ABNORMAL) Basic Metabolic Panel (non-fasting) (02/01/2019 12:22 AM EDT) P athologist Signature Glucose Lvl 292 (H) 65 - 199 [facility] mg/dL [facility] Comment: Diabetes: >=200 mg/dL plus symp toms BUN 16 10 - 20 mg/dL [facility] LABORATORY Creatinine 1.08 0.80 - 1.50 mg/dL [facility] LABORATORY Sodium 140 135 - 145 mmol/L [facility] LABORATORY Potassium Not Perf 3.5 - 5.0 [facility]ORATORY Comment: Duplicate. Potassium already completed. Please note: ??Patients with WBC >100,00 0 may have falsely elevated Potassium levels. ??For accurate Potassium quantif ication in these patients send serum separator tube (gold top) for subsequent determinations. ??Contact the Clinical Chemistry Laboratory if there are any qu estions. Chloride 102 98 - 107 mmol/L [facility] CO2 Not Perf [facility] Comment: Add-on request. Sample too old to perform test. Anion Gap Unable to Calculate 5 - 15 mmol/L [facility] LABORATORY Calcium 8.0 (L) 8.5 - 10.5 mg/dL [facility] Comment: result rechecked-ssd Estimated GFR 71 >=60 mL/min/1.73 m?? [facility] Comment: The eGFR was calculated using the CKD-EP I equation. As with all creatinine based estimates of kidney function, eGFR values calculated with the CKD-EPI equation are not accurate in patients wi th acute kidney failure, extremes of body mass or the acutely ill. [email or web address] eGFR 82 >=60 mL/min/1.73 m?? [facility] Comment: The eGFR was calculated using the CKD-EP I equation. As with all creatinine based estimates of kidney function, eGFR values calculated with the CKD-EPI equation are not accurate in patients wi th acute kidney failure, extremes of body mass or the acutely ill. [email or web address] Specimen Anatomical Collection Method Collection Time Receive d Time (Source) Location / / Volume Laterality Blood specimen 02/01/2019 12:22 9 (specimen) AM EDT 12:33 AM EDT Resulting Agency Comment Spec In Lab Lizz Cabrera MD CHEMISTRY ORDERABLES Performing Organization Address City/State/[place] [address] (ABNORMAL) Troponin (02/01/2019 12:22 AM EDT) P athologist Signature Troponin-T 0.28 (H) 0.00 - [facility] 0.00 ng/mL [facility] Comment: The 99th percentile for Troponin T is le ss than 0.01 ng/mL, any detectable cTnT concentration using this assay should be considered elevated. According to the third universal definit ion of myocardial infarction the following criteria with a clinical prese ntation consistent with acute myocardial ischemia meets the diagnosis for a myocardial infarction (CT). Detection of a rise and/or fall of cTnT, with at least one value greater than the 99th percentile (> or = 0.01) and wi th at least one of the following ?? Symptoms of ischemia ?? New or presumed new significant ST-se gment-T wave (ST-T) changes or new left bundle branch block (LBBB) ?? Development of pathologic Q waves in the ECG ?? Imaging evidence of new loss of viabl e myocardium or new regional wall motion abnormality ?? Identification of an intracoronary th rombus by angiography or autopsy Samples for cTnT testing should be obtai yaneth serially upon first assessment and again 3 to 6 hours later. If the clinica l suspicion is high and previous samples have been negative an additional sample may be indicated. Reference: Third [place] Definition of Myocardial Infarction. Journal of the [place] [employer] 2012;60:1581-98 Specimen Anatomical Collection Method Collection Time Receive d Time (Source) Location / / Volume Laterality Blood specimen 02/01/2019 12:22 9 (specimen) AM EDT 12:33 AM EDT Resulting Agency Comment Spec In Lab Lizz Cabrera MD CHEMISTRY ORDERABLES Performing Organization Address City/[facility]/[place] [address] (ABNORMAL) Hemoglobin (02/01/2019 12:22 AM EDT) P athologist Signature Hemoglobin 12.3 (L) 13.7 - [facility] 16[facility] gm/dL [facility] Specimen Anatomical Collection Method Collection Time Receive d Time (Source) Location / / Volume Laterality Blood specimen 02/01/2019 12:22 9 (specimen) AM EDT 12:33 AM EDT Resulting Agency Comment Spec In Lab Lizz Cabrera MD HEMATOLOGY ORDERABLES Performing Organization Address City/State/[place] [address] Potassium (02/01/2019 12:22 AM EDT) P athologist Signature Potassium 4.4 3.5 - 5.0 [facility] mmol/L [facility] Comment: Please note: ??Patients with WBC >100,00 0 may have falsely elevated Potassium levels. ??For accurate Potassium quantif ication in these patients send serum separator tube (gold top) for subsequent determinations. ??Contact the Clinical Chemistry Laboratory if there are any qu estions. Specimen Anatomical Collection Method Collection Time Receive d Time (Source) Location / / Volume Laterality Blood specimen 02/01/2019 12:22 9 (specimen) AM EDT 12:33 AM EDT Resulting Agency Comment Spec In Lab Lizz Cabrera MD CHEMISTRY ORDERABLES Performing Organization Address City/State/ZIP Code Phon e Number [address] (ABNORMAL) POCT Glucose (01/31/2019 11:20 PM EDT) athologist Signature POC Glucose 233 (H) 65 - 199 [facility] mg/dL [facility] Comment: Supplemental ranges: <140 mg/dL before meals <180 mg/dL all other times of the day Specimen Anatomical Collection Method Collection Time Receive d Time (Source) Location / / Volume Laterality Blood specimen 01/31/2019 11:20 9 (specimen) PM EDT 11:20 PM EDT Lizz Cabrera MD POINT OF CARE TEST ORDERABLE S Performing Organization Address City/[facility]/[place] [address] (ABNORMAL) BLOOD GAS 2 ARTERIAL (01/31/2019 10:08 PM EDT) Patholo gist Method Time Signature pH Art 7.23 7.35 - [facility] (Critical) 7.45 [facility] pCO2 Art 42 35 - 45 [facility] mmHg [facility] pO2 Art 94 85 - 104 [facility] LABORATORY HCO3 Art 17.1 (L) 20.0 - [facility] 26.0 [facility] mmol/L [facility] LABORATORY BE Art -10.5 (L) -3.0 - 3.0 [facility] mmol/L [facility] Hgb Blood Gas 14.0 13.7 - [facility] 16.5 gm/dL [facility] O2HB Art 94.3 94.0 - [facility] 97.0 % [facility] COHB Art 0.6 % [facility] Comment: Nonsmokers: 0.5-1.5% COHB Smokers: Variable, but usually less than 10% Toxic: 20-30% COHB Lethal: Greater than 60% COHB METHB Art 0.6 <=1.5 % [facility] Na Whole Blood 136 135 - 145 mmol/L [facility] K Whole Blood 4.0 3.5 - 5.0 mmol/L [facility] Comment: Please note: Patients with WBC >100,000 may have falsely elevated Potassium levels. Contact the Clinical Chemistry L aboratory if there are any questions. ICa Whole Blood 1.09 (L) 1.15 - 1.33 mmol/L [facility] Comment: Note: ??Total bilirubin higher than 20 m g/dL may lead to falsely low ionized calcium. CL Whole Blood 104 98 - 107 mmol/L [facility]OR[facility]ORY Gluc Whole Bld 273 (H) 65 - 199 mg/dL [facility] LABORATORY Comment: Diabetes: >=200 mg/dL plus symp toms. Lactate WB 5.7 (Critical) 0.5 - 2.2 mmol/L [facility] LABORATORY FIO2 Art 40 % [facility]OR[facility] PF Ratio Art 235 [facility] Specimen Anatomical Collection Method Collection Time Receive d Time (Source) Location / / Volume Laterality Blood specimen 01/31/2019 10:08 9 (specimen) PM EDT 10:08 PM EDT Lizz Cabrera MD CHEMISTRY ORDERABLES Performing Organization Address City/State/[place] [address] XR Chest PA or AP 1 view (01/31/2019 8:50 PM EDT) Anatomical Region Laterality Modality Chest N/A Digital Radiography Specimen (Source) Anatomical Location Collection Method / Collectio n Time Received Time / Laterality Volume Impressions 01/31/2019 9:09 PM EDT 1. ??The endotracheal tube terminates at the level of the [place]. Recommend retraction by 3 cm. 2. ??Low lung volumes with bibasilar ate lectasis. 3. ??Small bilateral pleural effusions, larger on the left side. Vanessa Mera discussed the result(s) over the phone with Sacha Carl on 01/31/2019 9:00 PM and verified that he u nderstood these results. Preliminary report signed by: Vanessa Mera at 01/31/2019 9:05 PM I have personally reviewed the image(s) and the residents interpretation and agree with the findings, Charis mackey at 01/31/2019 9:09 PM Thank you for letting us participate in the care of this patient. For questions regarding this report, please contact e number below. ? Narrative 01/31/2019 9:09 PM EDT EXAMINATION: XR CHEST PA OR AP 1 VIEW CLINICAL HISTORY: s/p cabg TECHNIQUE: 1 view of the chest COMPARISON: Chest radiograph dated 01/30/2019 FINDINGS: The endotracheal tube terminates at the level of the [place]. Right-sided IJ catheter projects over the upper right a trium. There is a left apical chest tube. The lung volumes are low resulting in bronchovascular crowding and bibasilar atelectasis. Small bilateral p leural effusions. The cardiomediastinal silhouette is prominent, accounting for the low lung volumes and AP projection. Procedure Note Charis Miller MD - 01/31/2019 EXAMINATION: XR CHEST PA OR AP 1 VIEW CLINICAL HISTORY: s/p cabg TECHNIQUE: 1 view of the chest COMPARISON: Chest radiograph dated 01/30/2019 FINDINGS: The endotracheal tube terminates at the level of the [place]. Right-sided IJ catheter projects over the upper right a trium. There is a left apical chest tube. The lung volumes are low resulting in bronchovascular crowding and bibasilar atelectasis. Small bilateral p leural effusions. The cardiomediastinal silhouette is prominent, accounting for the low lung volumes and AP projection. IMPRESSION 1. The endotracheal tube terminates at t he level of the [place]. Recommend retraction by 3 cm. 2. Low lung volumes with bibasilar atele ctasis. 3. Small bilateral pleural effusions, la rger on the left side. Vanessa Mera discussed the result(s) over the phone with Sacha Carl on 01/31/2019 9:00 PM and verified that he u nderstood these results. Preliminary report signed by: Vanessa Mera at 01/31/2019 9:05 PM I have personally reviewed the image(s) and the residents interpretation and agree with the findings, Charis mackey at 01/31/2019 9:09 PM Thank you for letting us participate in the care of this patient. For questions regarding this report, please contact e number below. Lizz Cabrera MD IMG DX ORDERABLES (ABNORMAL) BLOOD GAS 2 ARTERIAL (01/31/2019 8:38 PM EDT) [facility] gist Method Time Signature pH Art 7.23 7.35 - [facility] (Critical) 7.45 [facility] pCO2 Art 50 (H) 35 - 45 [facility] mmHg [facility]ORY pO2 Art 257 (H) 85 - 104 [facility] LABORATORY HCO3 Art 20.3 20.0 - [facility] 26.0 [facility] mmol/L [facility] LABORATORY BE Art -7.2 (L) -3.0 - 3.0 [facility] mmol/L [facility] Hgb Blood Gas 13.9 13.7 - [facility] 16.5 gm/dL [facility] O2HB Art 97.6 (H) 94.0 - [facility] 97.0 % [facility] COHB Art 0.7 % [facility] Comment: Nonsmokers: 0.5-1.5% COHB Smokers: Variable, but usually less than 10% Toxic: 20-30% COHB Lethal: Greater than 60% COHB METHB Art 0.7 <=1.5 % [facility] Na Whole Blood 138 135 - 145 mmol/L [facility] K Whole Blood 3.8 3.5 - 5.0 mmol/L [facility] Comment: Please note: Patients with WBC >100,000 may have falsely elevated Potassium levels. Contact the Clinical Chemistry L aboratory if there are any questions. ICa Whole Blood 1.12 (L) 1.15 - 1.33 mmol/L [facility] Comment: Note: ??Total bilirubin higher than 20 m g/dL may lead to falsely low ionized calcium. CL Whole Blood 104 98 - 107 mmol/L [facility]OR[facility] Gluc Whole Bld 238 (H) 65 - 199 mg/dL [facility] LABOR[facility]ORY Comment: Diabetes: >=200 mg/dL plus symp toms. Lactate WB 4.1 (Critical) 0.5 - 2.2 mmol/L [facility] LABORATORY FIO2 Art 100 % [facility] PF Ratio Art 257 [facility] Specimen Anatomical Collection Method Collection Time Receive d Time (Source) Location / / Volume Laterality Blood specimen 01/31/2019 8:38 PM 019 8:38 (specimen) EDT PM EDT Lizz Cabrera MD CHEMISTRY ORDERABLES Performing Organization Address City/State/[place] [address] EKG 12 Lead (01/31/2019 8:20 PM EDT) Component Value Ref Range Test Analysis Performed Pathologis t Method Time At Signature Ventricular rate 90 BPM MUSE SYSTEM Atrial Rate 90 BPM MUSE SYSTEM P-R Interval 208 ms MUSE SYSTEM QRS Duration 132 ms MUSE SYSTEM Q-T Interval 424 ms MUSE SYSTEM QTC Calculated 518 ms MUSE SYSTEM (Bezet) Calculated P [place] 65 degrees MUSE SYSTEM Calculated R [place] -84 degrees MUSE SYSTEM Calculated T [place] 98 degrees MUSE SYSTEM INTERPRETATION Sinus rhythm Occasional Premature ventricular complexe s MUSE SYSTEM Left axis deviation Non-specific intra-ventricular conduction block Anteroseptal infarct Inferior infarct T wave abnormality, consider lateral ischemia Abnormal ECG When compared with ECG of 31-JAN-2019 07:17, Premature ventricular complexes are now Present QT has lengthened Confirmed by MD Jose Armando, Arnoldo ([id number]) on 02/01/2019 9:53:33 AM Specimen Anatomical Collection Method Collection Time Receive d Time (Source) Location / / Volume Laterality 01/31/2019 8:20 PM 9 9:53 EDT AM EDT Lizz Cabrera MD ECG ORDERABLES Performing Organization Address City/State/ZIP Code Phon e Number MUSE SYSTEM (ABNORMAL) BLOOD GAS 2 ARTERIAL (01/31/2019 7:33 PM EDT) athologist Signature pH Art 7.28 7.35 - [facility] (Critical) 7.45 [facility] Comment: Noted by electrical and instrumentation manager. pCO2 Art 42 35 - 45 mmHg [facility] pO2 Art 365 (H) 85 - 104 mmHg [facility] LABORATORY HCO3 Art 19.7 (L) 20.0 - 26.0 mmol/L [facility] BE Art -7.0 (L) -3.0 - 3.0 mmol/L [facility] Hgb Blood Gas 12.0 (L) 13.7 - 16.5 gm/dL [facility] O2HB Art 98.9 (H) 94.0 - 97.0 % [facility]ORAT[facility] COHB Art 0.5 % [facility] Comment: Nonsmokers: 0.5-1.5% COHB Smokers: Variable, but usually less than 10% Toxic: 20-30% COHB Lethal: Greater than 60% COHB METHB Art 0.3 <=1.5 % [facility] Na Whole Blood 135 135 - 145 mmol/L [facility] K Whole Blood 3.6 3.5 - 5.0 mmol/L [facility] Comment: Please note: Patients with WBC >100,000 may have falsely elevated Potassium levels. Contact the Clinical Chemistry L aboratory if there are any questions. ICa Whole Blood 1.07 (L) 1.15 - 1.33 mmol/L [facility] Comment: Note: ??Total bilirubin higher than 20 m g/dL may lead to falsely low ionized calcium. CL Whole Blood 106 98 - 107 mmol/L [facility] Gluc Whole Bld 224 (H) 65 - 199 mg/dL [facility] Comment: Diabetes: >=200 mg/dL plus symp toms. Lactate WB 2.8 (H) 0.5 - 2.2 mmol/L [facility] Specimen Anatomical Collection Method Collection Time Receive d Time (Source) Location / / Volume Laterality Blood specimen 01/31/2019 7:33 PM 019 7:33 (specimen) EDT PM EDT Lizz Cabrera MD CHEMISTRY ORDERABLES Performing Organization Address City/State/[place] [address] (ABNORMAL) BLOOD GAS 2 ARTERIAL (01/31/2019 6:56 PM EDT) Analysis Performed At Patho logist Time Signature pH Art 7.30 (L) 7.35 - [facility] 7.45 [facility] pCO2 Art 49 (H) 35 - 45 [facility] mmHg [facility] pO2 Art 146 (H) 85 - 104 [facility] mmHg [facility] HCO3 Art 23.5 20.0 - [facility] 26.0 [facility] mmol/L [facility] BE Art -2.9 -3.0 - 3.0 [facility] mmol/L [facility] Hgb Blood Gas 10.7 (L) 13.7 - [facility] 16.5 gm/dL [facility] O2HB Art 97.7 (H) 94.0 - [facility] 97.0 % [facility] COHB Art 0.4 % [facility] Comment: Nonsmokers: 0.5-1.5% COHB Smokers: Variable, but usually less than 10% Toxic: 20-30% COHB Lethal: Greater than 60% COHB METHB Art 0.3 <=1.5 % [facility] Na Whole Blood 133 (L) 135 - 145 mmol/L [facility] K Whole Blood 3.7 3.5 - 5.0 mmol/L [facility] Comment: Please note: Patients with WBC >100,000 may have falsely elevated Potassium levels. Contact the Clinical Chemistry L aboratory if there are any questions. ICa Whole Blood 1.12 (L) 1.15 - 1.33 mmol/L [facility] Comment: Note: ??Total bilirubin higher than 20 m g/dL may lead to falsely low ionized calcium. CL Whole Blood 103 98 - 107 mmol/L [facility] Gluc Whole Bld 247 (H) 65 - 199 mg/dL [facility] Comment: Diabetes: >=200 mg/dL plus symp toms. Lactate WB 2.3 (H) 0.5 - 2.2 mmol/L [facility] Specimen Anatomical Collection Method Collection Time Receive d Time (Source) Location / / Volume Laterality Blood specimen 01/31/2019 6:56 PM 019 6:56 (specimen) EDT PM EDT Lizz Cabrera MD CHEMISTRY ORDERABLES Performing Organization Address City/State/[place] [address] (ABNORMAL) Fibrinogen (01/31/2019 6:55 PM EDT) P athologist Signature Fibrinogen 180 (L) 200 - 393 [facility] mg/dL [facility] Comment: Called by: lianet, Read back by: mary ford _, Date/Time:_01/31/19 19:15. A fibrinogen level >100 mg/dL is adequat e for hemostasis in most patients without underlying bleeding disorders. Specimen Anatomical Collection Method Collection Time Receive d Time (Source) Location / / Volume Laterality Blood specimen 01/31/2019 6:55 PM 019 6:59 (specimen) EDT PM EDT Resulting Agency Comment Spec In Lab Jose Luke MD HEMATOLOGY ORDERABLES Performing Organization Address City/State/[place] [address] (ABNORMAL) Hemogram (01/31/2019 6:55 PM EDT) P athologist Signature WBC 27.7 (H) 4.0 - 9.5 [facility] x10(3)/[facility] LABORATORY RBC 3.30 (L) 4.58 - [facility] 5.54 [facility] x10(6)/[facility] LABORATORY Hemoglobin 10.0 (L) 13.7 - [facility] 16.5 gm/dL [facility] Hematocrit 29.9 (L) 40.5 - [facility] 48.5 % [facility] Comment: This result has been called to MARY Lopes RN by Zi Meyer on 01 31 2019 at 1904, and has been read back. MCV 90.6 82.9 - 93.1 [facility] LABORATORY MCH 30.3 27.5 - 32.1 pg [facility] MCHC 33.4 32.0 - 35.7 gm/dL [facility] Platelets 214 145 - 357 x10(3)/[facility] LABORATORY RDWSD 44.4 36.0 - 45.0 [facility] LABORATORY RDWCV 13.4 11.4 - 13.8 % [facility] LABORATORY MPV 10.9 7.6 - 12.9 [facility] LABORATORY nRBC % Auto 0.0 % [facility] LABORATORY nRBC Abs Auto 0.000 0.000 - 0.000 x10(3)/[facility] LABORATORY Specimen Anatomical Collection Method Collection Time Receive d Time (Source) Location / / Volume Laterality Blood specimen 01/31/2019 6:55 PM 019 6:59 (specimen) EDT PM EDT Resulting Agency Comment Spec In Lab Jose Luke MD HEMATOLOGY ORDERABLES Performing Organization Address City/State/[place] [address] APTT (01/31/2019 6:55 PM EDT) P athologist Signature PTT 33 25 - 37 sec [facility] Comment: Called by: lianet, Read back by: mary ford _, Date/Time:_01/31/19 19:15. The PTT is NOT appropriate for heparin m onitoring. Use the Anti-Xa level for heparin monitoring (HEP UFH) or LMWH mon itoring (HEP LMW). A PTT less than 37 seconds generally indicates adequate hem ostasis. Specimen Anatomical Collection Method Collection Time Receive d Time (Source) Location / / Volume Laterality Blood specimen 01/31/2019 6:55 PM 019 6:59 (specimen) EDT PM EDT Resulting Agency Comment Spec In Lab Jose Luke MD HEMATOLOGY ORDERABLES Performing Organization Address City/State/[place] [address] (ABNORMAL) Prothrombin Time (01/31/2019 6:55 PM EDT) P athologist Signature PT 17.2 (H) 9.4 - 12.5 [facility] LABORATORY Comment: Called by: lianet, Read back by: keke ford_, Date/Time:_01/31/19 19:15. INR 1.5 [facility] Comment: Called by: lianet Read back by: mary ford _, Date/Time:_01/31/19 19:15. An INR <2.0 indicates adequate procoagul ant activity for hemostasis in most patients without underlying bleeding dis orders, though the INR may not adequately reflect hemostatic capacity i n patients with liver disease and synthetic impairment. The recommended ta rget INR range for therapeutic anticoagulation is 2.0 ? 3.0 for most applications, though lower and higher ranges may be appropriate depending on c linical circumstances. Specimen Anatomical Collection Method Collection Time Receive d Time (Source) Location / / Volume Laterality Blood specimen 01/31/2019 6:55 PM 019 6:59 (specimen) EDT PM EDT Resulting Agency Comment Spec In Lab Jose Luke MD HEMATOLOGY ORDERABLES Performing Organization Address City/State/ZIP Code Phon e Number [address] Prepare Platelets, Apheresis (01/31/2019 6:45 PM EDT) P athologist Signature Dispensed? Yes [facility] Specimen Anatomical Collection Method Collection Time Receive d Time (Source) Location / / Volume Laterality Blood specimen 01/31/2019 6:45 PM 019 6:43 (specimen) EDT PM EDT Lizz Cabrera MD BLOOD BANK ORDERABLES Performing Organization Address City/[facility]/ZIP Code Phon e Number [address] (ABNORMAL) BLOOD GAS 2 ARTERIAL (01/31/2019 6:31 PM EDT) Analysis Performed At Patho logist Time Signature pH Art 7.34 (L) 7.35 - [facility] 7.45 [facility] LABORATORY pCO2 Art 40 35 - 45 [facility] LABORATORY pO2 Art 414 (H) 85 - 104 [facility] LABORATORY HCO3 Art 21.4 20.0 - [facility] 26.0 [facility] mmol/[facility] LABORATORY BE Art -4.3 (L) -3.0 - 3.0 [facility] mmol/L [facility]OR[facility]ORY Hgb Blood Gas 10.3 (L) 13.7 - [facility] 16.5 gm/dL [facility] O2HB Art 99.0 (H) 94.0 - [facility] 97.0 % [facility] COHB Art 0.2 % [facility] LABORATORY Comment: Nonsmokers: 0.5-1.5% COHB Smokers: Variable, but usually less than 10% Toxic: 20-30% COHB Lethal: Greater than 60% COHB METHB Art 0.3 <=1.5 % [facility] LABORATORY Na Whole Blood 130 (L) 135 - 145 mmol/L [facility] LABORAT[facility] K Whole Blood 4.7 3.5 - 5.0 mmol/L [facility] Comment: Please note: Patients with WBC >100,000 may have falsely elevated Potassium levels. Contact the Clinical Chemistry L aboratory if there are any questions. ICa Whole Blood 1.27 1.15 - 1.33 mmol/L [facility] Comment: Note: ??Total bilirubin higher than 20 m g/dL may lead to falsely low ionized calcium. CL Whole Blood 100 98 - 107 mmol/L [facility]OR[facility]ORY Gluc Whole Bld 273 (H) 65 - 199 mg/dL [facility] LABORATORY Comment: Diabetes: >=200 mg/dL plus symp toms. Lactate WB 1.5 0.5 - 2.2 mmol/L [facility] LABOR[facility] Specimen Anatomical Collection Method Collection Time Receive d Time (Source) Location / / Volume Laterality Blood specimen 01/31/2019 6:31 PM 019 6:31 (specimen) EDT PM EDT Lizz Cabrera MD CHEMISTRY ORDERABLES Performing Organization Address City/State/[place] [address] (ABNORMAL) BLOOD GAS 2 ARTERIAL (01/31/2019 6:08 PM EDT) Analysis Performed At Patho logist Time Signature pH Art 7.37 7.35 - [facility] 7.45 [facility]ORATORY pCO2 Art 39 35 - 45 [facility] mmHg [facility] pO2 Art 327 (H) 85 - 104 [facility] LABORATORY HCO3 Art 22.2 20.0 - [facility] 26.0 [facility] mmol/L [facility] LABORATORY BE Art -3.1 (L) -3.0 - 3.0 [facility] mmol/L [facility] Hgb Blood Gas 10.8 (L) 13.7 - [facility] 16.5 gm/dL [facility] O2HB Art 98.6 (H) 94.0 - [facility] 97.0 % [facility] COHB Art 0.4 % [facility] Comment: Nonsmokers: 0.5-1.5% COHB Smokers: Variable, but usually less than 10% Toxic: 20-30% COHB Lethal: Greater than 60% COHB METHB Art 0.3 <=1.5 % [facility] Na Whole Blood 130 (L) 135 - 145 mmol/L [facility] K Whole Blood 5.2 (H) 3.5 - 5.0 mmol/L [facility] Comment: Please note: Patients with WBC >100,000 may have falsely elevated Potassium levels. Contact the Clinical Chemistry L aboratory if there are any questions. ICa Whole Blood 0.96 (L) 1.15 - 1.33 mmol/L [facility] Comment: Note: ??Total bilirubin higher than 20 m g/dL may lead to falsely low ionized calcium. CL Whole Blood 100 98 - 107 mmol/L [facility] Gluc Whole Bld 279 (H) 65 - 199 mg/dL [facility]OR[facility]ORY Comment: Diabetes: >=200 mg/dL plus symp toms. Lactate WB 1.4 0.5 - 2.2 mmol/L [facility] Specimen Anatomical Collection Method Collection Time Receive d Time (Source) Location / / Volume Laterality Blood specimen 01/31/2019 6:08 PM 019 6:08 (specimen) EDT PM EDT Lizz Cabrera MD CHEMISTRY ORDERABLES Performing Organization Address City/[facility]/[place] [address] (ABNORMAL) Fibrinogen (01/31/2019 6:00 PM EDT) P athologist Signature Fibrinogen 180 (L) 200 - 393 [facility] mg/dL [facility] Comment: Called by: lianet, Read back by: mary john _, Date/Time:_01/31/19 18:26. A fibrinogen level >100 mg/dL is adequat e for hemostasis in most patients without underlying bleeding disorders. Specimen Anatomical Collection Method Collection Time Receive d Time (Source) Location / / Volume Laterality Blood specimen 01/31/2019 6:00 PM 019 6:10 (specimen) EDT PM EDT Resulting Agency Comment Spec In Lab Lizz Cabrera MD HEMATOLOGY ORDERABLES Performing Organization Address City/[facility]/[place] [address] Platelet count (01/31/2019 6:00 PM EDT) athologist Signature Platelets 229 145 - 357 RODOLFO STANTON x10(3)/[facility] LABORATORY Plat Immature 2.7 0.0 - 7.4 [place] STANTON % % [facility] Comment: Limitation of the Immature Platelet Frac tion (IPF)-May be less reliable when the platelet count is less than 57c237/u L due to statistical imprecision. The IPF value provides an assessment of the Bone Marrow production status. ??It is useful in differentiating Thrombocyto penia caused by platelet destruction/consumption versus decreased production. It also helps to determine the imminent release of platelets and ca n be therefore a helpful parameter in Chemotherapy and Bone marrow transplant patients. ELEVATED IPF value: ?? When the bone marrow is in a state of over production such as when increased destruction and consumption are the unde rlying issue. ?? When the marrow is recovering post ch emotherapy or bone marrow transplant. LOW to NORMAL IPF value: ?? When the bone marrow in not respondin g and is in a decreased state of production. References: [employer] The Clinical Value of the Immature Platelet Fraction (IPF) in Cell Recovery Document Number [id number] 01/2011 [employer] The Role of the Imm ature Platelet Fraction (IPF) in the Differential Diagnosis of Thrombocytopen ia, Document [id number] V05/07/21 P0514 Specimen Anatomical Collection Method Collection Time Receive d Time (Source) Location / / Volume Laterality Blood specimen 01/31/2019 6:00 PM 019 6:10 (specimen) EDT PM EDT Resulting Agency Comment Spec In Lab Lizz Cabrera MD HEMATOLOGY ORDERABLES Performing Organization Address City/State/ZIP Code Phon e Number [place]ODOL[place] STANT[place] [address] (ABNORMAL) Hemoglobin and Hematocrit, blood (01/31/2019 6:00 PM EDT) athologist Signature Hemoglobin 9.9 (L) 13.7 - 16.5 [place] gm/dL [facility] Comment: This result has been called to MARY Lopes RN by Zi Meyer on 01 31 2019 at 1818, and has been read back. Hematocrit 28.7 (L) 40.5 - 48.5 % [facility] Comment: This result has been called to MARY Lopes RN by Zi Meyer on 01 31 2019 at 1818, and has been read back. Specimen Anatomical Collection Method Collection Time Receive d Time (Source) Location / / Volume Laterality Blood specimen 01/31/2019 6:00 PM 019 6:10 (specimen) EDT PM EDT Resulting Agency Comment Spec In Lab Lizz Cabrera MD HEMATOLOGY ORDERABLES Performing Organization Address City/State/[place] [address] (ABNORMAL) BLOOD GAS 2 ARTERIAL (01/31/2019 5:42 PM EDT) Analysis Performed At Patho logist Time Signature pH Art 7.32 (L) 7.35 - [facility] 7.45 [facility]ORY pCO2 Art 47 (H) 35 - 45 [facility] mmHg [facility] pO2 Art 282 (H) 85 - 104 [facility] mmHg [facility] HCO3 Art 23.7 20.0 - [facility] 26.0 [facility] mmol/L [facility] LABORATORY BE Art -2.3 -3.0 - 3.0 [facility] mmol/L [facility] Hgb Blood Gas 10.6 (L) 13.7 - [facility] 16.5 gm/dL [facility] O2HB Art 98.7 (H) 94.0 - [facility] 97.0 % [facility] COHB Art 0.1 % [facility] Comment: Nonsmokers: 0.5-1.5% COHB Smokers: Variable, but usually less than 10% Toxic: 20-30% COHB Lethal: Greater than 60% COHB METHB Art 0.3 <=1.5 % [facility] Na Whole Blood 129 (L) 135 - 145 mmol/L [facility] K Whole Blood 5.8 (H) 3.5 - 5.0 mmol/L [facility] Comment: Please note: Patients with WBC >100,000 may have falsely elevated Potassium levels. Contact the Clinical Chemistry L aboratory if there are any questions. ICa Whole Blood 0.96 (L) 1.15 - 1.33 mmol/L [facility] Comment: Note: ??Total bilirubin higher than 20 m g/dL may lead to falsely low ionized calcium. CL Whole Blood 101 98 - 107 mmol/L [facility] Gluc Whole Bld 257 (H) 65 - 199 mg/dL [facility] Comment: Diabetes: >=200 mg/dL plus symp toms. Lactate WB 1.3 0.5 - 2.2 mmol/L [facility] Specimen Anatomical Collection Method Collection Time Receive d Time (Source) Location / / Volume Laterality Blood specimen 01/31/2019 5:42 PM 019 5:42 (specimen) EDT PM EDT Lizz Cabrera MD CHEMISTRY ORDERABLES Performing Organization Address City/State/[place] [address] (ABNORMAL) BLOOD GAS 2 VENOUS (01/31/2019 5:08 PM EDT) athologist Signature pH Bayron 7.28 7.32 - [facility] (Critical) 7.42 [facility] Comment: Noted by electrical and instrumentation manager. pCO2 Bayron 48 41 - 51 mmHg [facility] pO2 [place]ron 55 (H) 25 - 40 mmHg [facility] HCO3 [place] 22.0 mmol/L [facility] BE Bayron -4.8 mmol/L [facility] Hgb Blood Gas 11.0 (L) 13.7 - 16.5 gm/dL [facility] O2HB [place] 82.2 % [facility] COHB Bayron 0.6 % [facility] Comment: Nonsmokers: 0.5-1.5% COHB Smokers: Variable, but usually less than 10% Toxic: 20-30% COHB Lethal: Greater than 60% COHB METHB [place]ron 0.3 <=1.5 % [facility] Na Whole Blood 134 (L) 135 - 145 mmol/L [facility] K Whole Blood 5.0 3.5 - 5.0 mmol/L [facility] Comment: Please note: Patients with WBC >100,000 may have falsely elevated Potassium levels. Contact the Clinical Chemistry L aboratory if there are any questions. ICa Whole Blood 0.99 (L) 1.15 - 1.33 mmol/L [facility] Comment: Note: ??Total bilirubin higher than 20 m g/dL may lead to falsely low ionized calcium. CL Whole Blood 104 98 - 107 mmol/L [facility] Gluc Whole Bld 148 65 - 199 mg/dL [facility] Comment: Diabetes: >=200 mg/dL plus symp toms Lactate WB 0.8 0.5 - 2.2 mmol/L [facility] BGas Source Venous [facility] LABORATORY Specimen Anatomical Collection Method Collection Time Receive d Time (Source) Location / / Volume Laterality Blood specimen 01/31/2019 5:08 PM 019 5:08 (specimen) EDT PM EDT Lizz Cabrera MD CHEMISTRY ORDERABLES Performing Organization Address City/State/ZIP Code Phon e Number [place] [id number]OS[address]ORY [address] (ABNORMAL) BLOOD GAS 2 ARTERIAL (01/31/2019 5:08 PM EDT) Analysis Performed At Patho logist Time Signature pH Art 7.30 (L) 7.35 - [facility] 7.45 [facility] pCO2 Art 41 35 - 45 [facility] mmHg [facility] pO2 Art 320 (H) 85 - 104 [facility] mmHg [facility] HCO3 Art 19.5 (L) 20.0 - [facility] 26.0 [facility] mmol/L [facility] LABOR[facility] BE Art -6.9 (L) -3.0 - 3.0 [facility] mmol/L [facility] Hgb Blood Gas 10.9 (L) 13.7 - [facility] 16.5 gm/dL [facility] O2HB Art 98.7 (H) 94.0 - [facility] 97.0 % [facility] COHB Art 0.3 % [facility] Comment: Nonsmokers: 0.5-1.5% COHB Smokers: Variable, but usually less than 10% Toxic: 20-30% COHB Lethal: Greater than 60% COHB METHB Art 0.3 <=1.5 % [facility] Na Whole Blood 134 (L) 135 - 145 mmol/L [facility] K Whole Blood 4.9 3.5 - 5.0 mmol/L [facility] Comment: Please note: Patients with WBC >100,000 may have falsely elevated Potassium levels. Contact the Clinical Chemistry L aboratory if there are any questions. ICa Whole Blood 1.02 (L) 1.15 - 1.33 mmol/L [facility] Comment: Note: ??Total bilirubin higher than 20 m g/dL may lead to falsely low ionized calcium. CL Whole Blood 103 98 - 107 mmol/L [facility] Gluc Whole Bld 142 65 - 199 mg/dL [facility] Comment: Diabetes: >=200 mg/dL plus symp toms. Lactate WB 0.8 0.5 - 2.2 mmol/L [facility] Specimen Anatomical Collection Method Collection Time Receive d Time (Source) Location / / Volume Laterality Blood specimen 01/31/2019 5:08 PM 019 5:08 (specimen) EDT PM EDT Lizz Cabrera MD CHEMISTRY ORDERABLES Performing Organization Address City/State/[place] [address] (ABNORMAL) BLOOD GAS 2 ARTERIAL (01/31/2019 3:30 PM EDT) Analysis Performed At Patho logist Time Signature pH Art 7.33 (L) 7.35 - [facility] 7.45 [facility] pCO2 Art 43 35 - 45 [facility] LABORATORY pO2 Art 273 (H) 85 - 104 [facility] LABORATORY HCO3 Art 22.3 20.0 - [facility] 26.0 [facility] LABORATORY BE Art -3.6 (L) -3.0 - 3.0 [facility] mmol/L [facility] Hgb Blood Gas 13.0 (L) 13.7 - [facility] 16.5 gm/dL [facility] O2HB Art 98.5 (H) 94.0 - [facility] 97.0 % [facility] COHB Art 0.6 % [facility] Comment: Nonsmokers: 0.5-1.5% COHB Smokers: Variable, but usually less than 10% Toxic: 20-30% COHB Lethal: Greater than 60% COHB METHB Art 0.3 <=1.5 % [facility] Na Whole Blood 138 135 - 145 mmol/L [facility] K Whole Blood 4.4 3.5 - 5.0 mmol/L [facility] Comment: Please note: Patients with WBC >100,000 may have falsely elevated Potassium levels. Contact the Clinical Chemistry L aboratory if there are any questions. ICa Whole Blood 1.15 1.15 - 1.33 mmol/L [facility] Comment: Note: ??Total bilirubin higher than 20 m g/dL may lead to falsely low ionized calcium. CL Whole Blood 103 98 - 107 mmol/L [facility] Gluc Whole Bld 146 65 - 199 mg/dL [facility] Comment: Diabetes: >=200 mg/dL plus symp toms. Lactate WB 1.1 0.5 - 2.2 mmol/L [facility] Specimen Anatomical Collection Method Collection Time Receive d Time (Source) Location / / Volume Laterality Blood specimen 01/31/2019 3:30 PM 019 3:30 (specimen) EDT PM EDT Lizz Cabrera MD CHEMISTRY ORDERABLES Performing Organization Address City/State/[place] [address] Prepare RBC (01/31/2019 1:25 PM EDT) P athologist Signature Dispensed? Yes [facility] Specimen Anatomical Collection Method Collection Time Receive d Time (Source) Location / / Volume Laterality Blood specimen 01/31/2019 1:25 PM 019 1:20 (specimen) EDT PM EDT Lizz Cabrera MD BLOOD BANK ORDERABLES Performing Organization Address City/[facility]/[place] [address] POCT Glucose (01/31/2019 11:10 AM EDT) P athologist Signature POC Glucose 161 65 - 199 RODOLFO MARQUEZROMY mg/dL [facility] Comment: Supplemental ranges: <140 mg/dL before meals <180 mg/dL all other times of the day Specimen Anatomical Collection Method Collection Time Receive d Time (Source) Location / / Volume Laterality Blood specimen 01/31/2019 11:10 9 (specimen) AM EDT 11:10 AM EDT Lizz Cabrera MD POINT OF CARE TEST ORDERABLE S Performing Organization Address City/[facility]/[place] [address] (ABNORMAL) POCT Glucose (01/31/2019 7:36 AM EDT) P athologist Signature POC Glucose 216 (H) 65 - 199 [facility] ROMY mg/dL [facility] Comment: Supplemental ranges: <140 mg/dL before meals <180 mg/dL all other times of the day Specimen Anatomical Collection Method Collection Time Receive d Time (Source) Location / / Volume Laterality Blood specimen 01/31/2019 7:36 AM 019 7:36 (specimen) EDT AM EDT Lizz Cabrera MD POINT OF CARE TEST ORDERABLE S Performing Organization Address City/State/[place] [address] EKG 12 Lead (01/31/2019 7:17 AM EDT) Component Value Ref Range Test Analysis Performed Pathologis t Method Time At Signature Ventricular rate 67 BPM MUSE SYSTEM Atrial Rate 67 BPM MUSE SYSTEM P-R Interval 196 ms MUSE SYSTEM QRS Duration 118 ms MUSE SYSTEM Q-T Interval 408 ms MUSE SYSTEM QTC Calculated 431 ms MUSE SYSTEM (Bezet) Calculated P [place] 29 degrees MUSE SYSTEM Calculated R [place] -65 degrees MUSE SYSTEM Calculated T [place] 112 degrees MUSE SYSTEM INTERPRETATION Normal sinus rhythm MUSE SYSTEM Left axis deviation Inferior infarct (cited on or before 30-JAN-2019) Anterior infarct (cited on or before 21-JUL-2018) ST & T wave abnormality, consider anterolateral ischemia Abnormal ECG When compared with ECG of 30-JAN-2019 06:53, No significant change was found Confirmed by Agapito Reza MD ([id number]) on 01/31/2019 9:51:44 AM Specimen Anatomical Collection Method Collection Time Receive d Time (Source) Location / / Volume Laterality 01/31/2019 7:17 AM 9 9:51 EDT AM EDT Lizz Cabrera MD ECG ORDERABLES Performing Organization Address City/State/ZIP Code Phon e Number MUSE SYSTEM (ABNORMAL) Differential, Automated (01/31/2019 5:34 AM EDT) [facility] Method Time Signature Neutrophils % 51.4 % [facility] Neutr Abs (ANC) 5.15 1.70 - [facility] 6.10 [facility] x10(3)/[facility] LABORATORY Lymphocytes % 35.8 % [facility] Lymphocytes Abs 3.6 (H) 0.9 - 3.2 [facility] x10(3)/[facility] LABORATORY Monocytes % 8.6 % [facility] Monocyte Abs 0.9 0.3 - 0.9 [facility] x10(3)/[facility] LABORATORY Eosinophils % 3.0 % [facility] Eosinophils Abs 0.3 0.0 - 0.4 [facility] x10(3)/[facility] LABORATORY Basophils % 0.8 % [facility] Basophils Abs 0.1 0.0 - 0.1 [facility] x10(3)/[facility] LABORATORY Immature Gran % 0.40 % [facility] Comment: Immature granulocytes(IG's)percentage an d absolute count will include metamyelocytes, myelocytes, and promyelo cytes. Blood smears from CBCs yielding IG's will be scanned manually for concor dance. If this scan disagrees with the automated IG or if promyelocytes are not ed, a manual differential will be performed. Corinne Gran Abs 0.04 0.00 - 0.04 x10(3)/[facility] LABORATORY Specimen Anatomical Collection Method Collection Time Receive d Time (Source) Location / / Volume Laterality Blood specimen 01/31/2019 5:34 AM 019 5:40 (specimen) EDT AM EDT Resulting Agency Comment Spec In Lab Lizz Cabrera MD HEMATOLOGY ORDERABLES Performing Organization Address City/State/[place] [address] (ABNORMAL) Hemogram (01/31/2019 5:34 AM EDT) Analysis Performed At Patho logist Time Signature WBC 10.0 (H) 4.0 - 9.5 [facility] x10(3)/[facility] LABORATORY RBC 4.41 (L) 4.58 - [facility] 5.54 [facility] x10(6)/[facility] LABORATORY Hemoglobin 13.3 (L) 13.7 - [facility] 16.5 gm/dL [facility] Hematocrit 39.0 (L) 40.5 - [facility] 48.5 % [facility] MCV 88.4 82.9 - [facility] 93.1 [facility] LABORATORY MCH 30.2 27.5 - [facility] 32.1 pg [facility] MCHC 34.1 32.0 - [facility] 35.7 gm/dL [facility] Platelets 190 145 - 357 [facility] x10(3)/[facility] LABORATORY RDWSD 42.7 36.0 - [facility].0 [facility] LABORATORY RDWCV 13.2 11.4 - [facility] 13.8 % [facility] MPV 10.8 7.6 - 12.9 [facility] LABORATORY nRBC % Auto 0.0 % [facility] nRBC Abs Auto 0.000 0.000 - [facility] 0.000 [facility] x10(3)/[facility] LABORATORY Specimen Anatomical Collection Method Collection Time Receive d Time (Source) Location / / Volume Laterality Blood specimen 01/31/2019 5:34 AM 019 5:40 (specimen) EDT AM EDT Resulting Agency Comment Spec In Lab Lizz Cabrera MD HEMATOLOGY ORDERABLES Performing Organization Address City/State/[place] [address] (ABNORMAL) BMP w/fasting Glucose (01/31/2019 3:38 AM EDT) P athologist Signature Glucose 167 (H) 65 - 99 [facility] Fasting mg/dL [facility] Comment: ?Fasting* Glucose Interpretive C riteria Normal ?65-99 mg/dL Impaired Fasting glucose ?100-125 mg/dL Consistent with Diabetes Mellitus ? >or= 126 mg/dL *Fasting is defined as no caloric intake for at least 8 hours In the absence of unequivocal hypergly cemia a plasma glucose value of >or= 126 mg/dL should be repeated on a subseq u day. Diagnosis and Classification of Diabetes Mellitus, Position Statement from the [place] [employer]. ??Diabete s Care, Volume 33, Supplement 1, Aug 2009 BUN 17 10 - 20 mg/dL [facility] LABORATORY Creatinine 0.81 0.80 - 1.50 mg/dL [facility] LABORATORY Sodium 138 135 - 145 mmol/L [facility] LAB[facility] Potassium 4.6 3.5 - 5.0 mmol/L [facility] Comment: Please note: ??Patients with WBC >100,00 0 may have falsely elevated Potassium levels. ??For accurate Potassium quantif ication in these patients send serum separator tube (gold top) for subsequent determinations. ??Contact the Clinical Chemistry Laboratory if there are any qu estions. Chloride 103 98 - 107 mmol/L [facility] CO2 21 (L) 22 - 31 mmol/L [facility] Anion Gap 14 5 - 15 mmol/L [facility] Calcium 8.9 8.5 - 10.5 mg/dL [facility] Estimated GFR 93 >=60 mL/min/1.73 m?? [facility] Comment: The eGFR was calculated using the CKD-EP I equation. As with all creatinine based estimates of kidney function, eGFR values calculated with the CKD-EPI equation are not accurate in patients wi th acute kidney failure, extremes of body mass or the acutely ill. [email or web address] [email or web address] eGFR 107 >=60 mL/min/1.73 m?? [facility] Comment: The eGFR was calculated using the CKD-EP I equation. As with all creatinine based estimates of kidney function, eGFR values calculated with the CKD-EPI equation are not accurate in patients wi th acute kidney failure, extremes of body mass or the acutely ill. [email or web address] Specimen Anatomical Collection Method Collection Time Receive d Time (Source) Location / / Volume Laterality Blood specimen 01/31/2019 3:38 AM 019 4:28 (specimen) EDT AM EDT Resulting Agency Comment Spec In Lab Rafa Malik MD CHEMISTRY ORDERABLES Performing Organization Address City/State/[place] [address] POCT Glucose (01/30/2019 8:28 PM EDT) P athologist Signature POC Glucose 142 65 - 199 [facility] mg/dL [facility] Comment: Supplemental ranges: <140 mg/dL before meals <180 mg/dL all other times of the day Specimen Anatomical Collection Method Collection Time Receive d Time (Source) Location / / Volume Laterality Blood specimen 01/30/2019 8:28 PM 019 8:28 (specimen) EDT PM EDT Lizz Cabrera MD POINT OF CARE TEST ORDERABLE S Performing Organization Address City/State/[place] [address] XR Chest PA & Lateral (Generic) (01/30/2019 6:28 PM EDT) Anatomical Region Laterality Modality Chest N/A Digital Radiography Specimen (Source) Anatomical Location Collection Method / Collectio n Time Received Time / Laterality Volume Impressions 01/30/2019 6:46 PM EDT Mild peribronchial wall thickening centrally within the pulmonary florentino and mild bronchiectasis noted in the right medial base. No focus of dense opacity pleural fluid or interstitial edema. Thank you for letting us participate in the care of this patient. For questions regarding this report, please contact e number below. ? Electronically signed by: Francisca de oliveira MD, [facility] ([phone]), at 01/30/2019 6:46 PM Narrative 01/30/2019 6:46 PM EDT EXAMINATION: XR CHEST PA AND LATERAL ([facility]) CLINICAL HISTORY: pre op CABG 68-year-old male with unstable angina an d 3 -vessel dz by cath. TECHNIQUE: A standing and lateral chest radiograph. COMPARISON: None FINDINGS: Cardiac and mediastinal contour are uppe r limits of normal. Central pulmonary vascular prominence right-sided greater than left with peribronchial wall thickening. There is mild endothoracic w all changes and mild right lower lobe bronchiectasis. No large pleural effusio n or pulmonary opacity. Procedure Note Francisca Sue MD - 01/30/2019Forma tting of this note might be different from the original. EXAMINATION: XR CHEST PA AND LATERAL ([facility]) CLINICAL HISTORY: pre op CABG 68-year-old male with unstable angina an d 3 -vessel dz by cath. TECHNIQUE: A standing and lateral chest radiograph. COMPARISON: None FINDINGS: Cardiac and mediastinal contour are uppe r limits of normal. Central pulmonary vascular prominence right-sided greater than left with peribronchial wall thickening. There is mild endothoracic w all changes and mild right lower lobe bronchiectasis. No large pleural effusio n or pulmonary opacity. IMPRESSION Mild peribronchial wall thickening centr ally within the pulmonary florentino and mild bronchiectasis noted in the right medial base. No focus of dense opacity pleural fluid or interstitial edema. Thank you for letting us participate in the care of this patient. For questions regarding this report, please contact th e number below. Kelly Oliveira CONTRACT MAIL CARRIER IMG DX ORDERABLES ABORH Recheck Status (01/30/2019 6:18 PM EDT) [facility] Method Time Signature ABORH Recheck Order Placed [facility] K Order [facility] ABORH Type Complete [facility] LABORATORY Specimen Anatomical Collection Method Collection Time Receive d Time (Source) Location / / Volume Laterality Blood specimen 01/30/2019 6:18 PM 019 6:22 (specimen) EDT PM EDT Resulting Agency Comment Spec In Lab Rachele Steinbergfield CONTRACT MAIL CARRIER BLOOD BANK ORDERABLES Performing Organization Address City/State/[place] [address] Antibody screen (01/30/2019 6:18 PM EDT) [facility] Method Time Signature Ab Screen [facility]ORY Expires at 02/02/2019 [facility] [id number] on: [facility] Specimen Anatomical Collection Method Collection Time Receive d Time (Source) Location / / Volume Laterality Blood specimen 01/30/2019 6:18 PM 019 6:22 (specimen) EDT PM EDT Resulting Agency Comment Spec In Lab Rachele Steinbergfield OLIVER BLOOD BANK ORDERABLES Performing Organization Address City/State/[place] [address] ABO/Rh Typing (01/30/2019 6:18 PM EDT) P athologist Signature ABORh Type B Pos [facility] Specimen Anatomical Collection Method Collection Time Receive d Time (Source) Location / / Volume Laterality Blood specimen 01/30/2019 6:18 PM 019 6:22 (specimen) EDT PM EDT Resulting Agency Comment Spec In Lab Rachlee White APRN BLOOD BANK ORDERABLES Performing Organization Address City/State/[place] [address] POCT Glucose (01/30/2019 4:11 PM EDT) athologist Signature POC Glucose 135 65 - 199 [place] mg/dL [facility] Comment: Supplemental ranges: <140 mg/dL before meals <180 mg/dL all other times of the day Specimen Anatomical Collection Method Collection Time Receive d Time (Source) Location / / Volume Laterality Blood specimen 01/30/2019 4:11 PM 019 4:11 (specimen) EDT PM EDT Lizz Cabrera MD POINT OF CARE TEST ORDERABLE S Performing Organization Address City/State/[place] [address] POCT Glucose (01/30/2019 11:29 AM EDT) athologist Signature POC Glucose 156 65 - 199 [place] mg/dL [facility] Comment: Supplemental ranges: <140 mg/dL before meals <180 mg/dL all other times of the day Specimen Anatomical Collection Method Collection Time Receive d Time (Source) Location / / Volume Laterality Blood specimen 01/30/2019 11:29 9 (specimen) AM EDT 11:29 AM EDT Lizz Cabrera MD POINT OF CARE TEST ORDERABLE S Performing Organization Address City/State/[place] [address] POCT Glucose (01/30/2019 7:23 AM EDT) athologist Signature POC Glucose 188 65 - 199 [place] mg/dL [facility] Comment: Supplemental ranges: <140 mg/dL before meals <180 mg/dL all other times of the day Specimen Anatomical Collection Method Collection Time Receive d Time (Source) Location / / Volume Laterality Blood specimen 01/30/2019 7:23 AM 019 7:23 (specimen) EDT AM EDT Lizz Cabrera MD POINT OF CARE TEST ORDERABLE S Performing Organization Address City/State/[place] [address] EKG 12 Lead (01/30/2019 6:53 AM EDT) Component Value Ref Range Test Analysis Performed Pathologis t Method Time At Signature Ventricular rate 60 BPM MUSE SYSTEM Atrial Rate 60 BPM MUSE SYSTEM P-R Interval 220 ms MUSE SYSTEM QRS Duration 124 ms MUSE SYSTEM Q-T Interval 438 ms MUSE SYSTEM QTC Calculated 438 ms MUSE SYSTEM (Bezet) Calculated P [place] 101 degrees MUSE SYSTEM Calculated R [place] -65 degrees MUSE SYSTEM Calculated T [place] 124 degrees MUSE SYSTEM INTERPRETATION Sinus rhythm with 1st degree A-V block MUSE SYSTEM Left anterior fascicular block Anterolateral CT ??(cited on or before 21-JUL-2018) Possible ??Inferior infarct , age undetermined Abnormal ECG When compared with ECG of 29-JAN-2019 07:11, No significant change was found Confirmed by MD Jacklyn, Jose Gaston ([id number]) on 01/30/2019 1:33: 07 PM Specimen Anatomical Collection Method Collection Time Receive d Time (Source) Location / / Volume Laterality 01/30/2019 6:53 AM 9 1:33 EDT PM EDT Galindo Bell MD ECG ORDERABLES Performing Organization Address City/[facility]/ZIP Code Phon e Number MUSE SYSTEM POCT Glucose (01/29/2019 8:27 PM EDT) P athologist Signature POC Glucose 140 65 - 199 [facility] Comment: Supplemental ranges: <140 mg/dL before meals <180 mg/dL all other times of the day Specimen Anatomical Collection Method Collection Time Receive d Time (Source) Location / / Volume Laterality Blood specimen 01/29/2019 8:27 PM 019 8:27 (specimen) EDT PM EDT Lizz Cabrera MD POINT OF CARE TEST ORDERABLE S Performing Organization Address City/[facility]/ZIP Code Phon e Number [place] [id number] POCT Glucose (01/29/2019 4:39 PM EDT) P athologist Signature POC Glucose 150 65 - 199 [facility]/dL [facility] Comment: Supplemental ranges: <140 mg/dL before meals <180 mg/dL all other times of the day Specimen Anatomical Collection Method Collection Time Receive d Time (Source) Location / / Volume Laterality Blood specimen 01/29/2019 4:39 PM 019 4:39 (specimen) EDT PM EDT Lizz Cabrera MD POINT OF CARE TEST ORDERABLE S Performing Organization Address City/[facility]/[place] [address] POCT Glucose (01/29/2019 12:12 PM EDT) athologist Signature POC Glucose 192 65 - 199 [facility] mg/dL [facility] Comment: Supplemental ranges: <140 mg/dL before meals <180 mg/dL all other times of the day Specimen Anatomical Collection Method Collection Time Receive d Time (Source) Location / / Volume Laterality Blood specimen 01/29/2019 12:12 9 (specimen) PM EDT 12:12 PM EDT Lizz Cabrera MD POINT OF CARE TEST ORDERABLE S Performing Organization Address City/State/[place] [address] (ABNORMAL) BLOOD GAS 2 ARTERIAL (01/29/2019 9:13 AM EDT) athologist Signature pH Art 7.43 7.35 - [facility] 7.45 [facility] pCO2 Art 34 (L) 35 - 45 [facility] mmHg [facility] pO2 Art 82 (L) 85 - 104 [facility]ORY HCO3 Art 21.8 20.0 - [facility] 26.0 [facility] mmol/L [facility] BE Art -2.6 -3.0 - 3.0 [facility] mmol/L [facility] Hgb Blood Gas 14.1 13.7 - [facility] 16.5 gm/dL [facility] O2HB Art 94.3 94.0 - [facility] 97.0 % [facility] COHB Art 0.8 % [facility] Comment: Nonsmokers: 0.5-1.5% COHB Smokers: Variable, but usually less than 10% Toxic: 20-30% COHB Lethal: Greater than 60% COHB METHB Art 0.6 <=1.5 % [facility] Na Whole Blood 135 135 - 145 mmol/L [facility] K Whole Blood 4.6 3.5 - 5.0 mmol/L [facility] Comment: Please note: Patients with WBC >100,000 may have falsely elevated Potassium levels. Contact the Clinical Chemistry L aboratory if there are any questions. ICa Whole Blood 1.12 (L) 1.15 - 1.33 mmol/L [facility] Comment: Note: ??Total bilirubin higher than 20 m g/dL may lead to falsely low ionized calcium. CL Whole Blood 101 98 - 107 mmol/L [facility] Gluc Whole Bld 289 (H) 65 - 199 mg/dL [facility] Comment: Diabetes: >=200 mg/dL plus symp toms. Lactate WB 2.9 (H) 0.5 - 2.2 mmol/L [facility] Specimen Anatomical Collection Method Collection Time Receive d Time (Source) Location / / Volume Laterality Blood specimen 01/29/2019 9:13 AM 019 9:13 (specimen) EDT AM EDT Lizz Cabrera MD CHEMISTRY ORDERABLES Performing Organization Address City/State/[place] [address] Lower extremity vein map, bilat (01/29/2019 8:32 AM EDT) Component Value Ref Test Analysis Performed At [facility] gist Range Method Time Signature VB Text Department: Vascular Surgery Lab VASCUBASE Report Patient: [id number] (CONNOR GAN) CPT: 04135 ICD10: I25.110;Z01.818 Referring Physician: KELLY OLIVEIRA ?? Indications: ??Pre-op CABG ICD10 Diagnosis Code: I25.110, Z01.818 Findings: Right ?Diameter (mm) ?? GSV, Near SFJ ?7.0 ?? GSV, Proximal Thigh ?3.9 ?? GSV, Mid Thigh ? 3.1 ?? GSV, Distal Thigh ?3.4 ?? GSV, ??Knee ? 2.3 ?? GSV Prox Calf ?2.5 ?? GSV, Mid Calf ?1.8 ?? GSV, Distal Calf ? 3.2 ?? Left ? Diameter (mm) ?? GSV, Near SFJ ?6.2 ?? GSV, Proximal Thigh ?4.9 ?? GSV, Mid Thigh ? 3.3 ?? GSV, Distal Thigh ?3.0 ?? GSV, ??Knee ? 3.5 ?? GSV Prox Calf ?2.1 ?? GSV, Mid Calf ?2.4 ?? GSV, Distal Calf ? 3.0 ?? Interpretation: Right: ??Patent great saphenous vein with no evidence of thr ombus. Left: ??Patent great saphenous vein with no evidence of thro mbus. Tourniquet used for diameters. Comparison: ?? No previous study in our vascular lab database for comparison. Electronically Signed by: GUERA SEAY MD on 2019-01-30 01: 26:20 PM VB Text End of Report VASCUBASE Report Specimen (Source) Anatomical Collection Method Collection Time Re ceived Time Location / / Volume Laterality 01/29/2019 8:32 AM EDT Kelly Oliveira CONTRACT MAIL CARRIER VASCULAR ORDERABLES Performing Organization Address City/State/ZIP Code Phon e Number VASCUBASE POCT Glucose (01/29/2019 7:44 AM EDT) athologist Signature POC Glucose 194 65 - 199 [facility] mg/dL [facility] Comment: Supplemental ranges: <140 mg/dL before meals <180 mg/dL all other times of the day Specimen Anatomical Collection Method Collection Time Receive d Time (Source) Location / / Volume Laterality Blood specimen 01/29/2019 7:44 AM 019 7:44 (specimen) EDT AM EDT Lizz Cabrera MD POINT OF CARE TEST ORDERABLE S Performing Organization Address City/[facility]/[place] [address] EKG 12 Lead (01/29/2019 7:11 AM EDT) Component Value Ref Range Test Analysis Performed Pathologis t Method Time At Signature Ventricular rate 70 BPM MUSE SYSTEM Atrial Rate 70 BPM MUSE SYSTEM P-R Interval 204 ms MUSE SYSTEM QRS Duration 118 ms MUSE SYSTEM Q-T Interval 414 ms MUSE SYSTEM QTC Calculated 447 ms MUSE SYSTEM (Bezet) Calculated P [place] -8 degrees MUSE SYSTEM Calculated R [place] -62 degrees MUSE SYSTEM Calculated T [place] 123 degrees MUSE SYSTEM INTERPRETATION Normal sinus rhythm MUSE SYSTEM Left axis deviation Anterolateral infarct (cited on or before 21-JUL-2018) Inferior infarct Abnormal ECG When compared with ECG of 28-JAN-2019 06:12, LA interval has decreased T wave inversion less evident in Lateral leads Inferior infarct pattern is new Confirmed by MD Jacklyn, Jose Gaston ([id number]) on 01/29/2019 9:44: 12 AM Specimen Anatomical Collection Method Collection Time Receive d Time (Source) Location / / Volume Laterality 01/29/2019 7:11 AM 9 9:44 EDT AM EDT Lizz Cabrera MD ECG ORDERABLES Performing Organization Address City/[facility]/ZIP Code Phon e Number MUSE SYSTEM (ABNORMAL) Differential, Automated (01/29/2019 4:43 AM EDT) Patholo gist Method Time Signature Neutrophils % 49.2 % [facility] Neutr Abs (ANC) 5.05 1.70 - [facility] 6.10 [facility] x10(3)/[facility]ATORY Lymphocytes % 39.4 % [facility] Lymphocytes Abs 4.0 (H) 0.9 - 3.2 [facility] x10(3)/[facility] LABORATORY Monocytes % 8.4 % [facility] Monocyte Abs 0.9 0.3 - 0.9 [facility] x10(3)/[facility] LABORATORY Eosinophils % 1.9 % [facility] Eosinophils Abs 0.2 0.0 - 0.4 [facility] x10(3)/[facility] LABORATORY Basophils % 0.6 % [facility] Basophils Abs 0.1 0.0 - 0.1 [facility] x10(3)/[facility] LABORATORY Immature Gran % 0.50 % [facility] Comment: Immature granulocytes(IG's)percentage an d absolute count will include metamyelocytes, myelocytes, and promyelo cytes. Blood smears from CBCs yielding IG's will be scanned manually for concor dance. If this scan disagrees with the automated IG or if promyelocytes are not ed, a manual differential will be performed. Corinne Gran Abs 0.05 (H) 0.00 - 0.04 x10(3)/[facility] LABORATORY Specimen Anatomical Collection Method Collection Time Receive d Time (Source) Location / / Volume Laterality Blood specimen 01/29/2019 4:43 AM 019 4:55 (specimen) EDT AM EDT Resulting Agency Comment Spec In Lab Galindo Bell MD HEMATOLOGY ORDERABLES Performing Organization Address City/State/[place] [address] (ABNORMAL) Hemogram (01/29/2019 4:43 AM EDT) Analysis Performed At Path logist Time Signature WBC 10.3 (H) 4.0 - 9.5 [facility] x10(3)/[facility] LABORATORY RBC 4.33 (L) 4.58 - [facility] 5.54 [facility] x10(6)/[facility] LABORATORY Hemoglobin 13.2 (L) 13.7 - [place] ROMY 16.5 gm/dL [facility] Hematocrit 38.1 (L) 40.5 - [place] 48.5 % [facility] MCV 88.0 82.9 - [facility] 93.1 [facility] LABORATORY MCH 30.5 27.5 - [facility] 32.1 pg [facility] MCHC 34.6 32.0 - [place] MARQUEZROMY 35.7 gm/dL [facility] Platelets 201 145 - 357 [facility]ZROM[facility] x10(3)/[facility] LABORATORY RDWSD 42.5 36.0 - [facility] MARQUEZROMY 45.0 [facility] LABORATORY RDWCV 13.2 11.4 - [facility] 13.8 % [facility] MPV 10.6 7.6 - 12.9 [facility] LABORATORY nRBC % Auto 0.0 % [facility] nRBC Abs Auto 0.000 0.000 - [place] MARQUEZROMY 0.000 [facility] x10(3)/[facility] LABORATORY Specimen Anatomical Collection Method Collection Time Receive d Time (Source) Location / / Volume Laterality Blood specimen 01/29/2019 4:43 AM 019 4:55 (specimen) EDT AM EDT Resulting Agency Comment Spec In Lab Galindo Bell MD HEMATOLOGY ORDERABLES Performing Organization Address City/State/[place] [address] (ABNORMAL) BMP w/fasting Glucose (01/29/2019 4:43 AM EDT) P athologist Signature Glucose 178 (H) 65 - 99 [facility] Fasting mg/dL [facility] Comment: ?Fasting* Glucose Interpretive C riteria Normal ?65-99 mg/dL Impaired Fasting glucose ?100-125 mg/dL Consistent with Diabetes Mellitus ? >or= 126 mg/dL *Fasting is defined as no caloric intake for at least 8 hours In the absence of unequivocal hypergly cemia a plasma glucose value of >or= 126 mg/dL should be repeated on a subseq uent day. Diagnosis and Classification of Diabetes Mellitus, Position Statement from the [place] [employer]. ??Diabete s Care, Volume 33, Supplement 1, Aug 2009 BUN 18 10 - 20 mg/dL [facility] Creatinine 0.88 0.80 - 1.50 mg/dL [facility] Sodium 138 135 - 145 mmol/L [facility] Potassium 4.6 3.5 - 5.0 mmol/L [facility] Comment: Please note: ??Patients with WBC >100,00 0 may have falsely elevated Potassium levels. ??For accurate Potassium quantif ication in these patients send serum separator tube (gold top) for subsequent determinations. ??Contact the Clinical Chemistry Laboratory if there are any qu estions. Chloride 105 98 - 107 mmol/L [facility] CO2 23 22 - 31 mmol/L [facility] Anion Gap 10 5 - 15 mmol/L [facility] Calcium 8.7 8.5 - 10.5 mg/dL [facility] Estimated GFR 90 >=60 mL/min/1.73 m?? [facility] Comment: The eGFR was calculated using the CKD-EP I equation. As with all creatinine based estimates of kidney function, eGFR values calculated with the CKD-EPI equation are not accurate in patients wi th acute kidney failure, extremes of body mass or the acutely ill. [email or web address] eGFR 104 >=60 mL/min/1.73 m?? [facility] Comment: The eGFR was calculated using the CKD-EP I equation. As with all creatinine based estimates of kidney function, eGFR values calculated with the CKD-EPI equation are not accurate in patients wi th acute kidney failure, extremes of body mass or the acutely ill. [email or web address] Specimen Anatomical Collection Method Collection Time Receive d Time (Source) Location / / Volume Laterality Blood specimen 01/29/2019 4:43 AM 019 4:55 (specimen) EDT AM EDT Resulting Agency Comment Spec In Lab Lizz Cabrera MD CHEMISTRY ORDERABLES Performing Organization Address City/[facility]/ZIP Code Phon e Number [address] POCT Glucose (01/28/2019 8:18 PM EDT) athologist Signature POC Glucose 154 65 - 199 [facility] Comment: Supplemental ranges: <140 mg/dL before meals <180 mg/dL all other times of the day Specimen Anatomical Collection Method Collection Time Receive d Time (Source) Location / / Volume Laterality Blood specimen 01/28/2019 8:18 PM 019 8:18 (specimen) EDT PM EDT Lizz Cabrera MD POINT OF CARE TEST ORDERABLE S Performing Organization Address City/[facility]/ZIP Code Phon e Number [address] POCT Glucose (01/28/2019 4:53 PM EDT) athologist Signature POC Glucose 133 65 - 199 [facility]/dL [facility] Comment: Supplemental ranges: <140 mg/dL before meals <180 mg/dL all other times of the day Specimen Anatomical Collection Method Collection Time Receive d Time (Source) Location / / Volume Laterality Blood specimen 01/28/2019 4:53 PM 019 4:53 (specimen) EDT PM EDT Lizz Cabrera MD POINT OF CARE TEST ORDERABLE S Performing Organization Address City/[facility]/ZIP Code Phon e Number [address] (ABNORMAL) Differential, Automated (01/28/2019 1:35 PM EDT) [facility] gist Method Time Signature Neutrophils % 59.7 % [facility] Neutr Abs (ANC) 6.94 (H) 1.70 - [facility] 6.10 [facility] x10(3)/[facility] LABORATORY Lymphocytes % 29.6 % [facility] Lymphocytes Abs 3.4 (H) 0.9 - 3.2 [facility] x10(3)/[facility] LABORATORY Monocytes % 7.2 % [facility] Monocyte Abs 0.8 0.3 - 0.9 [facility] x10(3)/[facility] LABORATORY Eosinophils % 2.2 % [facility] Eosinophils Abs 0.2 0.0 - 0.4 [facility] x10(3)/[facility] LABORATORY Basophils % 0.7 % [facility] Basophils Abs 0.1 0.0 - 0.1 [facility] x10(3)/[facility] LABORATORY Immature Gran % 0.60 % [facility] Comment: Immature granulocytes(IG's)percentage an d absolute count will include metamyelocytes, myelocytes, and promyelo cytes. Blood smears from CBCs yielding IG's will be scanned manually for concor dance. If this scan disagrees with the automated IG or if promyelocytes are not ed, a manual differential will be performed. Corinne Gran Abs 0.07 (H) 0.00 - 0.04 x10(3)/[facility] LABORATORY Specimen Anatomical Collection Method Collection Time Receive d Time (Source) Location / / Volume Laterality Blood specimen 01/28/2019 1:35 PM 019 1:41 (specimen) EDT PM EDT Resulting Agency Comment Spec In Lab Galindo Bell MD HEMATOLOGY ORDERABLES Performing Organization Address City/State/[place] [address] (ABNORMAL) Hemogram (01/28/2019 1:35 PM EDT) Analysis Performed At Patho logist Time Signature WBC 11.6 (H) 4.0 - 9.5 [facility] x10(3)/[facility] LABORATORY RBC 4.60 4.58 - [facility] 5.54 [facility] x10(6)/[facility] LABORATORY Hemoglobin 14.1 13.7 - [place] 16.5 gm/dL [facility] Hematocrit 40.4 (L) 40.5 - [place] 48.5 % [facility] MCV 87.8 82.9 - [place] 93.1 [facility] LABORATORY MCH 30.7 27.5 - [place] 32.1 pg [facility] MCHC 34.9 32.0 - [place] 35.7 gm/dL [facility] Platelets 279 145 - 357 [place] x10(3)/[facility] LABORATORY RDWSD 42.3 36.0 - [place] 45.0 [facility] LABORATORY RDWCV 13.2 11.4 - [place] 13.8 % [facility] MPV 10.8 7.6 - 12.9 [place] [facility] LABORATORY nRBC % Auto 0.0 % [facility] nRBC Abs Auto 0.000 0.000 - [place] 0.000 [facility] x10(3)/[facility] LABORATORY Specimen Anatomical Collection Method Collection Time Receive d Time (Source) Location / / Volume Laterality Blood specimen 01/28/2019 1:35 PM 019 1:41 (specimen) EDT PM EDT Resulting Agency Comment Spec In Lab Galindo Bell MD HEMATOLOGY ORDERABLES Performing Organization Address City/State/[place] [address] (ABNORMAL) BMP w/fasting Glucose (01/28/2019 1:35 PM EDT) athologist Signature Glucose 122 (H) 65 - 99 [place] Fasting mg/dL [facility] Comment: ?Fasting* Glucose Interpretive C riteria Normal ?65-99 mg/dL Impaired Fasting glucose ?100-125 mg/dL Consistent with Diabetes Mellitus ? >or= 126 mg/dL *Fasting is defined as no caloric intake for at least 8 hours In the absence of unequivocal hypergly cemia a plasma glucose value of >or= 126 mg/dL should be repeated on a subseq uent day. Diagnosis and Classification of Diabetes Mellitus, Position Statement from the [place] [employer]. ??Diabete s Care, Volume 33, Supplement 1, Aug 2009 BUN 14 10 - 20 mg/dL [facility] Creatinine 0.97 0.80 - 1.50 mg/dL [facility] Sodium 140 135 - 145 mmol/L [facility] Potassium 5.0 3.5 - 5.0 mmol/L [facility] Comment: Please note: ??Patients with WBC >100,00 0 may have falsely elevated Potassium levels. ??For accurate Potassium quantif ication in these patients send serum separator tube (gold top) for subsequent determinations. ??Contact the Clinical Chemistry Laboratory if there are any qu estions. Chloride 104 98 - 107 mmol/L [facility] CO2 22 22 - 31 mmol/L [facility] Anion Gap 14 5 - 15 mmol/L [facility] Calcium 9.0 8.5 - 10.5 mg/dL [facility] Estimated GFR 81 >=60 mL/min/1.73 m?? [facility] Comment: The eGFR was calculated using the CKD-EP I equation. As with all creatinine based estimates of kidney function, eGFR values calculated with the CKD-EPI equation are not accurate in patients wi th acute kidney failure, extremes of body mass or the acutely ill. [email or web address] eGFR 94 >=60 mL/min/1.73 m?? [facility] Comment: The eGFR was calculated using the CKD-EP I equation. As with all creatinine based estimates of kidney function, eGFR values calculated with the CKD-EPI equation are not accurate in patients wi th acute kidney failure, extremes of body mass or the acutely ill. [email or web address] Specimen Anatomical Collection Method Collection Time Receive d Time (Source) Location / / Volume Laterality Blood specimen 01/28/2019 1:35 PM 019 1:41 (specimen) EDT PM EDT Resulting Agency Comment Spec In Lab Lizz Cabrera MD CHEMISTRY ORDERABLES Performing Organization Address City/State/ZIP Code Phon e Number [address] POCT Glucose (01/28/2019 11:18 AM EDT) athologist Signature POC Glucose 175 65 - 199 [facility] mg/dL [facility] Comment: Supplemental ranges: <140 mg/dL before meals <180 mg/dL all other times of the day Specimen Anatomical Collection Method Collection Time Receive d Time (Source) Location / / Volume Laterality Blood specimen 01/28/2019 11:18 9 (specimen) AM EDT 11:18 AM EDT Lizz Cabrera MD POINT OF CARE TEST ORDERABLE S Performing Organization Address City/[facility]/ZIP Code Phon e Number [address] POCT Glucose (01/28/2019 7:52 AM EDT) athologist Signature POC Glucose 193 65 - 199 [place] mg/dL [facility] Comment: Supplemental ranges: <140 mg/dL before meals <180 mg/dL all other times of the day Specimen Anatomical Collection Method Collection Time Receive d Time (Source) Location / / Volume Laterality Blood specimen 01/28/2019 7:52 AM 019 7:52 (specimen) EDT AM EDT Lizz Cabrera MD POINT OF CARE TEST ORDERABLE S Performing Organization Address City/[facility]/[place] [address] EKG 12 Lead (01/28/2019 6:12 AM EDT) [facility] gist Method Time Signature Ventricular rate 66 BPM MUSE SYSTEM Atrial Rate 66 BPM MUSE SYSTEM P-R Interval 236 ms MUSE SYSTEM QRS Duration 120 ms MUSE SYSTEM Q-T Interval 422 ms MUSE SYSTEM QTC Calculated 442 ms MUSE SYSTEM (Bezet) Calculated P [place] 13 degrees MUSE SYSTEM Calculated R [place] -47 degrees MUSE SYSTEM Calculated T [place] 152 degrees MUSE SYSTEM INTERPRETATION Sinus rhythm with 1st degree A-V block MUSE SYSTEM Left axis deviation Septal infarct (cited on or before 14-DEC-2018) Possible Lateral infarct (cited on or before 21-JUL-2018) Abnormal ECG When compared with ECG of 26-JAN-2019 22:23, LA interval has increased Confirmed by MD Jimmie, Dylan Shultz ([id number]) on 01/28/2019 10:42:46 AM Specimen Anatomical Collection Method Collection Time Receive d Time (Source) Location / / Volume Laterality 01/28/2019 6:12 AM 9 EDT 10:42 AM EDT Lizz Cabrera MD ECG ORDERABLES Performing Organization Address City/State/ZIP Code Phon e Number MUSE SYSTEM POCT Glucose (01/27/2019 7:47 PM EDT) athologist Signature POC Glucose 154 65 - 199 [facility] Comment: Supplemental ranges: <140 mg/dL before meals <180 mg/dL all other times of the day Specimen Anatomical Collection Method Collection Time Receive d Time (Source) Location / / Volume Laterality Blood specimen 01/27/2019 7:47 PM 019 7:47 (specimen) EDT PM EDT Lizz Cabrera MD POINT OF CARE TEST ORDERABLE S Performing Organization Address City/[facility]/[place] [address] POCT Glucose (01/27/2019 4:48 PM EDT) athologist Signature POC Glucose 145 65 - 199 [facility] mg/dL [facility] Comment: Supplemental ranges: <140 mg/dL before meals <180 mg/dL all other times of the day Specimen Anatomical Collection Method Collection Time Receive d Time (Source) Location / / Volume Laterality Blood specimen 01/27/2019 4:48 PM 019 4:48 (specimen) EDT PM EDT Lizz Cabrera MD POINT OF CARE TEST ORDERABLE S Performing Organization Address City/[facility]/[place] [address] ECHOCARDIOGRAM COMPLETE W CONTRAST (01/27/2019 3:22 PM EDT) athologist Signature EF 45 [facility] Anatomical Region Laterality Modality Other Specimen (Source) Anatomical Location Collection Method / Collectio n Time Received Time / Laterality Volume 01/28/2019 Narrative 01/28/2019 1:12 PM EDT Procedure: ?Transthoracic Echocardiogram Patient: ?RUSLAN Vera ?(Age): 1950(68y) Med Rec#: ? [id number] ?Sex: ?M ? Site Loc: ? [facility] ?Ht / Wt: ??166(cm)/131(kg) Pt. Loc: ?Adult Floor ? BSA: ?2.32 Study Date: ?? 01/27/2019 ?Pt. Type: Inpatient Tape: ? 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 99/56 SUMMARY: 1. Technically limited with suboptimal v isualization of cardiac structures. 2. Global left ventricular systolic func tion is mildly reduced. Ejection fraction is estimated to be 45% . ??There are left ventricular segmental wall motion abnormalities pres ent, as shown in the diagram below. ??There is better wall motion in the basilar anterior and lateral lauren. 3. The right ventricle is not well visua lized. The right ventricle is normal in size. 4. There is mild septal hypertrophy of t he left ventricle. ??There is no evidence of LVOT obstruction. ??Other ch tawnya and aortic dimensions are normal. ?? 5. No hemodynamic significant valvular d isese. The aortic valve is probably tricuspid and valve leaflets ar e mildly thickened without stenosis. ??The mitral valve leaflets ar e mildly thickened. The papillary muscle heads appear calcified. There is mitral annular calcification. There is trace mitral regurgitation pres ent with no mitral stenosis. 6. There is no pericardial effusion. ??P ulmonary artery hypertension could not be assessed due to inadequate tricuspid regurgitation jet. Findings ? : Study Quality: ? Technically limited Left Ventricle: ? The left ventricul ar chamber size is normal. ?There is mild septal hypertrophy o f the left ventricle. ?There is no evidence of LVOT obstr uction. ?Global left ventricular systolic f unction is mildly reduced. Ejection fraction is estimated to be 45% . ?There are left ventricular segment al wall motion abnormalities present, as shown in the diagram below. ?The ??basal inferoseptal, mid ante roseptal, mid inferolateral, mid inferior, mid inferoseptal, apical anter ior, apical lateral, and ??apical inferior wall segments are hypokinetic ( score 2). ?The ??basal inferior, and ??apical septal wall segments are akinetic (score 3). ?Overall wallmotion score index is ??1.75 Left Atrium: ? The left atrium is no rmal in size. Right Ventricle: ? The right ventric le is not well visualized. ?The right ventricle is normal in s ize. ?Pulmonary artery hypertension coul d not be assessed due to inadequate tricuspid regurgitation jet. Right Atrium: ? The right atrium is not well visualized. Aortic Valve: ? The aortic valve is probably tricuspid. ?The aortic valve leaflets are mild ly thickened. ?There is no evidence of aortic mandi ve stenosis. ?There is no evidence of aortic reg urgitation. Mitral Valve: ? The mitral valve manjit flets are mildly thickened. ?The papillary muscle heads appear calcified. ?There is mitral annular calcificat ion. ?There is no evidence of mitral clover nosis. ?There is trace mitral regurgitatio n present. Tricuspid Valve: ? The tricuspid mandi ve is probably normal. ?There is trace tricuspid regurgita tion present. Pulmonic Valve: ? The pulmonic valve is probably normal. Pericardium: ? There is no pericardi al effusion. Venous: ? The inferior vena cava wiley ears normal in size. ?There is a greater than 50% respir atory change in the inferior vena cava dimension. Misc: ? Two-dimensional echo, spectr al Doppler and color Doppler performed. ?Optison contrast (one 3 ml vial) w as used to enhance endocardial definition. Excess contrast was discarde d. Chambers 2D ?Value ?Units (Range) ? IVSd (2D) ? 1.6 ?cm ? LVPWd (2D) ?1.1 ?cm ? IVS:LVPW ratio (2D) 1.5 ?ratio ? LVIDd (2D) ?5 ?cm ? Ao root diameter (2D3.6 ?cm (2.1 - 3.6) ? Ascending Ao ?3.5 ?cm (2 - 3.5) ? Volumes/Mass ?Value ?Units (Range) ? LA Area 4 CH ?28.6 ? cm2 (<21) ? LA ESV BP (MOD) inde30 ? ml/m2 ? Diastolic/Systolic Function ?Value ?Units (Range) ? MV E-wave Vmax ?0.8 ?m/sec ? MV deceleration veue789 ?msec ? MV A-wave Vmax ?0.9 ?m/sec ? MV E:A ratio ?0.9 ?ratio ? LV E:e' septal ratio22.8 ? ratio ? LV E:e' lateral rati13.1 ? ratio ? Tricuspid Valve ?Value ?Units (Range) ? RAP ? 3 ?mmHg ? Wall Motion: Segment Name ?Rest ? Base-Anteroseptal ?? Normal ? Base-Anterior ? Normal ? Base-Anterolateral ??Normal ? Base-Posterolateral Normal ? Base-Inferior ? Akinetic ? Base-Inferoseptal ?? Hypokinetic ? Mid-Anteroseptal ?Hypokinetic ? Mid-Anterior ?Normal ? Mid-Anterolateral ?? Normal ? Mid-Posterolateral ??Hypokinetic ? Mid-Inferior ?Hypokinetic ? Mid-Inferoseptal ?Hypokinetic ? [place]-Septal ? Akinetic ? [place]-Anterior ? Hypokinetic ? [place]-Lateral ?Hypokinetic ? [place]-Inferior ? Hypokinetic ? [place]-Tip ?Akinetic ? This report has been electronically sign ed by: _ Wilton Roper MD ? 01/28/2019 13:11: 32 Images reviewed and interpretation [facility] Cardiac Ultrasound Laboratory Procedure Note Wilton Roper MD - 01/28/2019 Procedure: Transthoracic Echocardiogram Patient: RUSLAN Vear (Age): [birth year](68y) Med Rec#: [id number] Sex: M Site Loc: [facility] Ht / Wt: 166(cm)/131(kg) Pt. Loc: Adult Floor BSA: 2.32 Study Date: 01/27/2019 Pt. 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 Technically limited with suboptimal v isualization of cardiac structures. 2. Global left ventricular systolic func tion is mildly reduced. Ejection fraction is estimated to be 45% . There are left ventricular segmental wall motion abnormalities pres ent, as shown in the diagram below. There is better wall motion in th e basilar anterior and lateral lauren. 3. The right ventricle is not well visua lized. The right ventricle is normal in size. 4. There is mild septal hypertrophy of t he left ventricle. There is no evidence of LVOT obstruction. Other chelsey paul and aortic dimensions are normal. 5. No hemodynamic significant valvular d isese. The aortic valve is probably tricuspid and valve leaflets ar e mildly thickened without stenosis. The mitral valve leaflets are mildly thickened. The papillary muscle heads appear calcified. There is mitral annular calcification. There is trace mitral regurgitation pres ent with no mitral stenosis. 6. There is no pericardial effusion. Pul monary artery hypertension could not be assessed due to inadequate tricuspid regurgitation jet. Findings : Study Quality: Technically limited Left Ventricle: The left ventricular jaquan mber size is normal. There is mild septal hypertrophy of the left ventricle. There is no evidence of LVOT obstructio n. Global left ventricular systolic functi on is mildly reduced. Ejection fraction is estimated to be 45% . There are left ventricular segmental wa ll motion abnormalities present, as shown in the diagram below. The basal inferoseptal, mid anterosepta l, mid inferolateral, mid inferior, mid inferoseptal, apical anter ior, apical lateral, and apical inferior wall segments are hypokinetic ( score 2). The basal inferior, and apical septal w all segments are akinetic (score 3). Overall wallmotion score index is 1.75 Left Atrium: The left atrium is normal i n size. Right Ventricle: The right ventricle is not well visualized. The right ventricle is normal in size. Pulmonary artery hypertension could not be assessed due to inadequate tricuspid regurgitation jet. Right Atrium: The right atrium is not we ll visualized. Aortic Valve: The aortic valve is probab ly tricuspid. The aortic valve leaflets are mildly th ickened. There is no evidence of aortic valve st enosis. There is no evidence of aortic regurgit ation. Mitral Valve: The mitral valve leaflets are mildly thickened. The papillary muscle heads appear calci fied. There is mitral annular calcification. There is no evidence of mitral stenosis . There is trace mitral regurgitation pre sent. Tricuspid Valve: The tricuspid valve is probably normal. There is trace tricuspid regurgitation present. Pulmonic Valve: The pulmonic valve is pr obably normal. Pericardium: There is no pericardial eff usion. Venous: The inferior vena cava appears n ormal in size. There is a greater than 50% respiratory change in the inferior vena cava dimension. Misc: Two-dimensional echo, spectral Dop pler and color Doppler performed. Optison contrast (one 3 ml vial) was us ed to enhance endocardial definition. Excess contrast was discarde d. Chambers 2D Value Units (Range) IVSd (2D) 1.6 cm LVPWd (2D) 1.1 cm IVS:LVPW ratio (2D) 1.5 ratio LVIDd (2D) 5 cm Ao root diameter (2D3.6 cm (2.1 - 3.6) Ascending Ao 3.5 cm (2 - 3.5) Volumes/Mass Value Units (Range) LA Area 4 CH 28.6 cm2 (<21) LA ESV BP (MOD) inde30 ml/m2 Diastolic/Systolic Function Value Units (Range) MV E-wave Vmax 0.8 m/sec MV deceleration pxnp020 msec MV A-wave Vmax 0.9 m/sec MV E:A ratio 0.9 ratio LV E:e' septal ratio22.8 ratio LV E:e' lateral rati13.1 ratio Tricuspid Valve Value Units (Range) RAP 3 mmHg Wall Motion: Segment Name Rest Base-Anteroseptal Normal Base-Anterior Normal Base-Anterolateral Normal Base-Posterolateral Normal Base-Inferior Akinetic Base-Inferoseptal Hypokinetic Mid-Anteroseptal Hypokinetic Mid-Anterior Normal Mid-Anterolateral Normal Mid-Posterolateral Hypokinetic Mid-Inferior Hypokinetic Mid-Inferoseptal Hypokinetic [place]-Septal Akinetic [place]-Anterior Hypokinetic [place]-Lateral Hypokinetic [place]-Inferior Hypokinetic [place]-Tip Akinetic This report has been electronically sign ed by: _ Wilton Roper MD 01/28/2019 13:11:32 Images reviewed and interpretation rainer iealexander [facility] Cardiac Ultrasound Laboratory Galindo Bell MD ECHO ORDERABLES CARDIAC CATHETERIZATION (01/27/2019 12:37 PM EDT) Anatomical Region Laterality Modality Other Specimen (Source) Anatomical Location Collection Method / Collectio n Time Received Time / Laterality Volume Narrative 01/27/2019 1:29 PM EDT ?[facility] ? Cardiac Cathete rization/Intervention Report ? Patient Name: CONNOR GAN Shirley ? Procedure Date: 01/27/2019 ? A #: [id number] ? Primary Physician: Carin, Taisha J ? Case #: [id number] ? File Name: [id number] ? Catheterization Order Number: [id number] ? [facility] ?Supervisor [facility] ? Final Report [place], [place] ? Patient Name: ? CONNOR G. MATH IEU ?ID#: ?[id number] ? : ?1950 ? Procedure Date: ? January 27, 2019 ?Case #: ? [id number] ? Room: ? 6 ? Case Physician: ? Taisha Lyleswr ight, M.D. ?Start: ?11:50 ? Admission: ??01/27/2019 ? Referring Physician: ??Taye Ron M.D. ? Procedures: ?* Coronary Angiography ?* Left Heart Catheterization ? History ?CONNOR GAN is a 68 year old man. He has hypertension, a family ?history of coronary artery dise ase and morbid obesity. The patient's ?smoking status is Former. He fonseca s hypercholesterolemia managed by diet and ?lipid therapy. The patient has diabetes managed by diet, insulin and oral ?medication. He is also status p ost a remote myocardial infarction. Prior ?to the initiation of this proce dure, the patient was designated as ASA ?Class III. The [facility] clinical fr ailty scale is 4. Vulnerable. ? Diagnostic Tests: ?Prior Coronary Angiography: ? Prior coronary angiograp hy was performed on 08/08/2016 and showed ? obstructive CAD. ?Electrocardiography: ? EKG was assessed by EKG. EKG was Abnormal. EKG showed other ? abnormality. ?Medications Prior to Procedure: ? ASA, Beta Pratibha, Long Acting Nitrate and Statin. ? Indications for Diagnostic Cath: ?The priority of the diagnostic procedure was Urgent. 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 Chest pain symp hawa assessment was: Typical Angina. ? Technique: ?A 6Fr sheath was inserted in th e right radial artery utilizing the ?Seldinger technique. The left c oronary artery was injected utilizing a ?5Fr TIG 4.0 catheter. A 5Fr TIG 4.0 catheter was used to inject the right ?coronary artery. Left ventricul ar pressure was performed with a 5Fr ?ANGLED PIGTAIL catheter. 8,000 units of heparin were administered. A ?total of 100cc of Omnipaque wer e opened, 40cc of Omnipaque were ?administered and 60cc of Omnipa que were wasted. Radiation: Fluoro time ?was 3.4 minutes, dose area prod uct was 37,000 mGYcm2 and air kerma was ?488 mGY. See the case log for a dditional details. ?The patient received the follow ing medications prior to and during the ?procedure: ? Unfractionated Heparin. ? Hemodynamics: ?Left Heart Pressures ? Resting: ? Syst D iast ? EDP ?a ?v ? m ?Ao 98 ?58 ?75 ?LV 94 ?9 ? Coronary Angiography: ?Dominance: Right ?Left Main ?Left Anterior Descending ? There was severe diffuse (>=75% stenosis) disease of the entire ? vessel segment of the le ft anterior descending artery (LAD). ??The ? LAD was large. ??The pro ximal segment of the LAD had a long segmental ? 80% stenosis. ??There al so was an 85% long segmental stenosis of the ? mid segment of the LAD. ??There was an 85% single discrete stenosis ? of the distal segment of the LAD. ?Left Circumflex ? There was moderate diffu se (<=50% stenosis) disease of the entire ? vessel segment of the ft circumflex artery (LCX). ??The LCX was ? large. ??The proximal se gment of the LCX had a single discrete 50% ? stenosis. ??There also w as a 90% single discrete stenosis of the mid ? segment of the LCX. ? There was moderate diffu se (<=50% stenosis) disease of the entire ? vessel segment of the se cond obtuse marginal branch (OM2) of the ? LCX. ??The proximal segm ent of the OM2 had a single discrete 90% ? stenosis. ??There also w as a 90% single discrete stenosis of the mid ? segment of the OM2. ?Right Coronary Artery ? There was moderate diffu se (<=50% stenosis) disease of the entire ? vessel segment of the ri ght coronary artery (RCA). ??The mid segment ? of the RCA had a long se gmental 80% stenosis. ??There also was a ? single discrete total oc clusion of the distal segment of the RCA. ? Distal flow was via ferdinand aterals from the LAD and collaterals from ? the LCX. ??The distal ve ssel was moderate in size. ? Vascular Access: ?Vascular Access Management: ? Mechanical Compression o f the right radial artery access site was ? performed. ? Conclusions: ?* Three vessel coronary artery disease (LAD, LCX and RCA) ?* Recommend shared decision alex ing process to evaluate role of medical ?therapy, PCI or CABG. ? Complications/Events: ?The patient had no complication s during these procedures. ? Recommendations: ?Based upon the results of this procedure, it was recommended that medical ?therapy, coronary artery bypass surgery and stent insertion be ?considered. ? Comments: ?NSTEMI, with diffuse 3 vessel d isease, LVEDP 11 mmHg.Radial provided good ?support for procedure. ?6 Fr RRA with TR band in place, good hemostasis. ?The patient tolerated the proce dures smoothly and was transferred from ?the cardiac catheterization lab to the next level of care in stable ?condition, without pain. ??No e vident early complications. ?Results discussed with service rfid technician Dr Lizz Cabrera, and with the ?patient and their family. Ema r sent to referring rfid technician, ?Sundaran. ?The attending physician was presen t for the entire procedure. ?Dr. Taisha Watson M.D. was present during the moderate sedation ?intraservice time as documented by the sedation nurse. ??Case time = 00:31. ?Dr. Taisha Watson M.D. perf ormed the coronary angiography and left ?heart catheterization. ? Taisha Watson, ? M.D. ? Electronically Signed by: Taisha whitfield M.D. ? Report Finalized: 01/27/2019 ??13:26 ? Report Last Ammended: 02/15/2019 ??16:28 ? Procedure Note Taisha Watson MD - 02/15/2019For matting of this note might be different from the original. [facility] Cardiac Catheterization/Intervention Re port Patient Name: CONNOR GANIsaiah Procedure Date: 01/27/2019 A #: [id number] Primary Physician: Taisha Watson Case #: [id number] File Name: [id number] Catheterization Order Number: [id number] [facility] Supervisor [facility] [facility] Final Report [place], [place] Patient Name: CONNOR GAN ID#: [id number] : 1950 Procedure Date: January 27, 2019 Case #: [id number] Room: 6 Case Physician: Leighann Lau Start: 11:50 Admission: 01/27/2019 Referring Physician: Taye Ron M.D. Procedures: * Coronary Angiography * Left Heart Catheterization History CONNOR GAN is a 68 year old man. He has hypertension, a family history of coronary artery disease and morbid obesity. The patient's smoking status is Former. He has hyperc holesterolemia managed by diet and lipid therapy. The patient has diabetes managed by diet, insulin and oral medication. He is also status post a re mote myocardial infarction. Prior to the initiation of this procedure, th e patient was designated as ASA Class III. The [facility] clinical frailty sc rahul is 4. Vulnerable. Diagnostic Tests: Prior Coronary Angiography: Prior coronary angiography was performe d on 08/08/2016 and showed obstructive CAD. Electrocardiography: EKG was assessed by EKG. EKG was Abnorm al. EKG showed other abnormality. Medications Prior to Procedure: ASA, Beta Pratibha, Long Acting Nitrate and Statin. Indications for Diagnostic Cath: The priority of the diagnostic procedur e was Urgent. 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 Chest pain symptom asse ssment was: Typical Angina. Technique: A 6Fr sheath was inserted in the right radial artery utilizing the Seldinger technique. The left coronary artery was injected utilizing a 5Fr TIG 4.0 catheter. A 5Fr TIG 4.0 cat heter was used to inject the right coronary artery. Left ventricular press ure was performed with a 5Fr ANGLED PIGTAIL catheter. 8,000 units of heparin were administered. A total of 100cc of Omnipaque were opened , 40cc of Omnipaque were administered and 60cc of Omnipaque were wasted. Radiation: Fluoro time was 3.4 minutes, dose area product was 37,000 mGYcm2 and air kerma was 488 mGY. See the case log for additiona l details. The patient received the following medi cations prior to and during the procedure: Unfractionated Heparin. Hemodynamics: Left Heart Pressures Resting: Syst Diast EDP a v m Ao 98 58 75 LV 94 9 Coronary Angiography: Dominance: Right Left Main Left Anterior Descending There was severe diffuse (>=75% stenosi s) disease of the entire vessel segment of the left anterior makayla cending artery (LAD). The LAD was large. The proximal segment of the LAD had a long segmental 80% stenosis. There also was an 85% justino g segmental stenosis of the mid segment of the LAD. There was an 85 % single discrete stenosis of the distal segment of the LAD. Left Circumflex There was moderate diffuse (<=50% steno sis) disease of the entire vessel segment of the left circumflex a rtery (LCX). The LCX was large. The proximal segment of the LCX had a single discrete 50% stenosis. There also was a 90% single d iscrete stenosis of the mid segment of the LCX. There was moderate diffuse (<=50% steno sis) disease of the entire vessel segment of the second obtuse mar ginal branch (OM2) of the LCX. The proximal segment of the OM2 fonseca d a single discrete 90% stenosis. There also was a 90% single d iscrete stenosis of the mid segment of the OM2. Right Coronary Artery There was moderate diffuse (<=50% steno sis) disease of the entire vessel segment of the right coronary ar tyree (RCA). The mid segment of the RCA had a long segmental 80% clover nosis. There also was a single discrete total occlusion of the distal segment of the RCA. Distal flow was via collaterals from th e LAD and collaterals from the LCX. The distal vessel was moderate in size. Vascular Access: Vascular Access Management: Mechanical Compression of the right rad ial artery access site was performed. Conclusions: * Three vessel coronary artery disease (LAD, LCX and RCA) * Recommend shared decision making proc ess to evaluate role of medical therapy, PCI or CABG. Complications/Events: The patient had no complications during these procedures. Recommendations: Based upon the results of this procedur e, it was recommended that medical therapy, coronary artery bypass surgery and stent insertion be considered. Comments: NSTEMI, with diffuse 3 vessel disease, LVEDP 11 mmHg.Radial provided good support for procedure. 6 Fr RRA with TR band in place, good he mostasis. The patient tolerated the procedures sm oothly and was transferred from the cardiac catheterization lab to the next level of care in stable condition, without pain. No evident ear ly complications. Results discussed with service cardiolo gist Dr Lizz Cabrera, and with the patient and their family. Letter sent t o referring rfid technician, Dr Lambert. The attending physician was present for the entire procedure. Dr. Taisha Watson M.D. was prese nt during the moderate sedation intraservice time as documented by the sedation nurse. Case time = 00:31. Dr. Taisha Watson M.D. performed the coronary angiography and left heart catheterization. Taisha Watson M.D. Electronically Signed by: Taisha whitfield M.D. Report Finalized: 01/27/2019 13:26 Report Last Ammended: 02/15/2019 16:28 Taisha Watson MD CARDIAC CATH ORDERABLES Heparin (unfractionated) Level (01/27/2019 11:10 AM EDT) athologist Signature Heparin UFH 0.36 IU/mL [facility] LABORATORY Comment: Guidelines for therapeutic unfractionate d heparin levels are summarized below. Heparin (Anti-Xa) levels should be deter mined in a plasma sample that has been drawn 6 hours after a dose change i.e., steady-state has been reached. DRUG ?Dos ing Schedule ? Target Peak Steady-State ?Heparin (Anti-Xa) Levels (Units/mL) Unfractionated ?Continuous inf usion ?0.3-0.7 Heparin ?0.3-0.6 fo r some neurology indications Specimen Anatomical Collection Method Collection Time Receive d Time (Source) Location / / Volume Laterality Blood specimen 01/27/2019 11:10 9 (specimen) AM EDT 11:22 AM EDT Resulting Agency Comment Spec In Lab Galindo Bell MD HEMATOLOGY ORDERABLES Performing Organization Address [facility] [place] [address] (ABNORMAL) POCT Glucose (01/27/2019 10:45 AM EDT) P athologist Signature POC Glucose 204 (H) 65 - 199 [facility] mg/dL [facility] Comment: Supplemental ranges: <140 mg/dL before meals <180 mg/dL all other times of the day Specimen Anatomical Collection Method Collection Time Receive d Time (Source) Location / / Volume Laterality Blood specimen 01/27/2019 10:45 9 (specimen) AM EDT 10:45 AM EDT Lizz Cabrera MD POINT OF CARE TEST ORDERABLE S Performing Organization Address [facility]/ZIP [facility] [place] [place] [address] (ABNORMAL) POCT Glucose (01/27/2019 7:36 AM EDT) P athologist Signature POC Glucose 242 (H) 65 - 199 [place] [place] mg/dL [facility] Comment: Supplemental ranges: <140 mg/dL before meals <180 mg/dL all other times of the day Specimen Anatomical Collection Method Collection Time Receive d Time (Source) Location / / Volume Laterality Blood specimen 01/27/2019 7:36 AM 019 7:36 (specimen) EDT AM EDT Lizz Cabrera MD POINT OF CARE TEST ORDERABLE S Performing Organization Address City/[facility]/[place] [address] (ABNORMAL) Differential, Automated (01/27/2019 4:08 AM EDT) [facility] Method Time Signature Neutrophils % 45.7 % [facility] LAB[facility] Neutr Abs (ANC) 5.04 1.70 - [facility] 6.10 [facility] x10(3)/[facility] LABORATORY Lymphocytes % 42.8 % [facility] Lymphocytes Abs 4.7 (H) 0.9 - 3.2 [facility] x10(3)/[facility] LABORATORY Monocytes % 7.3 % [facility] Monocyte Abs 0.8 0.3 - 0.9 [facility] x10(3)/[facility] LABORATORY Eosinophils % 2.7 % [facility] Eosinophils Abs 0.3 0.0 - 0.4 [facility] x10(3)/[facility] LABORATORY Basophils % 0.7 % [facility] Basophils Abs 0.1 0.0 - 0.1 [facility] x10(3)/[facility] LABORATORY Immature Gran % 0.80 % [facility] Comment: Immature granulocytes(IG's)percentage an d absolute count will include metamyelocytes, myelocytes, and promyelo cytes. Blood smears from CBCs yielding IG's will be scanned manually for concor dance. If this scan disagrees with the automated IG or if promyelocytes are not ed, a manual differential will be performed. Corinne Gran Abs 0.09 (H) 0.00 - 0.04 x10(3)/[facility] LABORATORY Specimen Anatomical Collection Method Collection Time Receive d Time (Source) Location / / Volume Laterality Blood specimen 01/27/2019 4:08 AM 019 4:50 (specimen) EDT AM EDT Resulting Agency Comment Spec In Lab Galindo Bell MD HEMATOLOGY ORDERABLES Performing Organization Address City/[facility]/[place] [address] (ABNORMAL) Hemogram (01/27/2019 4:08 AM EDT) Analysis Performed At Patho logist Time Signature WBC 11.0 (H) 4.0 - 9.5 [facility] x10(3)/[facility] LABORATORY RBC 4.20 (L) 4.58 - [facility] 5.54 [facility] x10(6)/[facility] LABORATORY Hemoglobin 12.6 (L) 13.7 - [facility] 16.[facility] gm/dL [facility] Hematocrit 37.9 (L) 40.5 - [facility] 48.5 % [facility] MCV 90.2 82.9 - [facility] 93.1 [facility] LABORATORY MCH 30.0 27.5 - [facility] 32.1 pg [facility] MCHC 33.2 32.0 - [facility] 35.7 gm/dL [facility] Platelets 182 145 - 357 [facility] x10(3)/[facility] LABORATORY RDWSD 42.7 36.0 - [facility] 45.0 [facility] LABORATORY RDWCV 13.2 11.4 - [facility] 13.8 % [facility] LABORATORY MPV 10.7 7.6 - 12.9 [facility] LABORATORY nRBC % Auto 0.0 % [facility] nRBC Abs Auto 0.000 0.000 - [facility] 0.000 [facility] x10(3)/[facility] LABORATORY Specimen Anatomical Collection Method Collection Time Receive d Time (Source) Location / / Volume Laterality Blood specimen 01/27/2019 4:08 AM 019 4:50 (specimen) EDT AM EDT Resulting Agency Comment Spec In Lab Galindo Bell MD HEMATOLOGY ORDERABLES Performing Organization Address City/State/[place] [address] Lipid Panel (01/27/2019 4:08 AM EDT) P athologist Signature Chol, Total 94 mg/dL [facility] Comment: Lower Risk: <200 mg/dL Average Risk: 200-239 mg/dL Higher Risk: >hi=452 mg/dL Triglycerides 277 mg/dL [facility] LABORATORY Comment: Average Risk/Lower Risk: <150 mg/dL Borderline High Risk: 150-199 mg/dL High Risk: 200-499 mg/dL Very High Risk: >bz=628 mg/dL HDL 37 mg/dL [facility] LABORATORY Comment: Males: ?? Higher Risk: <40 mg/dL Females: ?? HIgher Risk: <50 mg/dL LDL Cholesterol 2 mg/dL [facility] Comment: Lowest Risk: <100 mg/dL Lower Risk: 100-129 mg/dL Borderline High Risk: 130-159 mg/dL High Risk: 160-189 mg/dL Very High Risk: >dc=586 mg/dL Chol/HDL Ratio 2.5 ratio [facility] Lipid Interpretation See Note [facility] LAB[facility]ORY Comment: Lipid management should be guided by a p atient? s ASCVD risk, goals and preferences. ACC/AHA Guidelines recommend high intens ity statin if clinical ASCVD or LDL greater than or equal to 190 mg/dL. http://Sophono/EKC-XOC-Ukauosiqu Adults aged 40-75 with LDL 70-189 mg/dL should have their 10 year ASCVD risk estimated with the ACC/AHA ASCVD risk es timator http://tools.acc.org/SHVUJ-Tqtu-Rymcjvcc r/ Statin should be discussed if risk great er than or equal to 7.5% in non-diabetics. With diabetes, moderate i ntensity statin is recommended if risk less than 7.5%, high intensity if risk g reater than or equal to 7.5%. Annual lipid monitoring on statins is no t necessary. Evaluate secondary causes of Triglycerid es greater than 500 mg/dL or LDL greater than 190 mg/dL: See table 6 of A CC/AHA Guideline. Lifestyle modification is a critical com ponent of ASCVD risk reduction. Specimen Anatomical Collection Method Collection Time Receive d Time (Source) Location / / Volume Laterality Blood specimen 01/27/2019 4:08 AM 019 4:50 (specimen) EDT AM EDT Resulting Agency Comment Spec In Lab Galindo eBll MD CHEMISTRY ORDERABLES Performing Organization Address City/State/[place] [address] Creatinine (01/27/2019 4:08 AM EDT) athologist Signature Creatinine 0.84 0.80 - [place] [place] 1.50 mg/dL [facility] LABORATORY Estimated GFR 91 >=60 [place] [place] mL/min/1.7 [facility] 3 m?? HOSPITAL LABORATORY Comment: The eGFR was calculated using the CKD-EP I equation. As with all creatinine based estimates of kidney function, eGFR values calculated with the CKD-EPI equation are not accurate in patients wi th acute kidney failure, extremes of body mass or the acutely ill. http://Sophono/[facility] MARIETTAnkf eGFR 106 >=60 mL/min/1.73 m?? [facility] Comment: The eGFR was calculated using the CKD-EP I equation. As with all creatinine based estimates of kidney function, eGFR values calculated with the CKD-EPI equation are not accurate in patients wi th acute kidney failure, extremes of body mass or the acutely ill. http://Sophono/[facility]kf Specimen Anatomical Collection Method Collection Time Receive d Time (Source) Location / / Volume Laterality Blood specimen 01/27/2019 4:08 AM 019 4:50 (specimen) EDT AM EDT Resulting Agency Comment Spec In Lab Galindo Bell MD CHEMISTRY ORDERABLES Performing Organization Address City/[facility]/ZIP Code Phon e Number [address] (ABNORMAL) BUN (01/27/2019 4:08 AM EDT) athologist Signature BUN 21 (H) 10 - 20 [facility] mg/dL [facility] LABOR[facility]ORY Specimen Anatomical Collection Method Collection Time Receive d Time (Source) Location / / Volume Laterality Blood specimen 01/27/2019 4:08 AM 019 4:50 (specimen) EDT AM EDT Resulting Agency Comment Spec In Lab Galindo Bell MD CHEMISTRY ORDERABLES Performing Organization Address City/[facility]/ZIP Code Phon e Number [address] (ABNORMAL) Electrolytes panel (01/27/2019 4:08 AM EDT) athologist Signature Sodium 137 135 - 145 [facility] mmol/L [facility] LABOR[facility]ORY Potassium 4.1 3.5 - 5.0 [facility] mmol/L [facility] Comment: Please note: ??Patients with WBC >100,00 0 may have falsely elevated Potassium levels. ??For accurate Potassium quantif ication in these patients send serum separator tube (gold top) for subsequent determinations. ??Contact the Clinical Chemistry Laboratory if there are any qu estions. Chloride 103 98 - 107 mmol/L [facility] CO2 21 (L) 22 - 31 mmol/L [facility] Anion Gap 13 5 - 15 mmol/L [facility] LABORATORY Specimen Anatomical Collection Method Collection Time Receive d Time (Source) Location / / Volume Laterality Blood specimen 01/27/2019 4:08 AM 019 4:50 (specimen) EDT AM EDT Resulting Agency Comment Spec In Lab Galindo Bell MD CHEMISTRY ORDERABLES Performing Organization Address City/State/[place] [address] (ABNORMAL) Glucose, fasting (01/27/2019 4:08 AM EDT) athologist Signature Glucose 224 (H) 65 - 99 [facility] Fasting mg/dL [facility] Comment: ?Fasting* Glucose Interpretive C riteria Normal ?65-99 mg/dL Impaired Fasting glucose ?100-125 mg/dL Consistent with Diabetes Mellitus ? >or= 126 mg/dL *Fasting is defined as no caloric intake for at least 8 hours In the absence of unequivocal hypergly cemia a plasma glucose value of >or= 126 mg/dL should be repeated on a subseq uent day. Diagnosis and Classification of Diabetes Mellitus, Position Statement from the [place] [employer]. ??Diabete s Care, Volume 33, Supplement 1, Aug 2009 Specimen Anatomical Collection Method Collection Time Receive d Time (Source) Location / / Volume Laterality Blood specimen 01/27/2019 4:08 AM 019 4:50 (specimen) EDT AM EDT Resulting Agency Comment Spec In Lab Galindo Bell MD CHEMISTRY ORDERABLES Performing Organization Address City/[facility]/[place] [address] LDL Cholesterol, Direct (01/27/2019 4:08 AM EDT) P athologist Signature LDL Chol 39 mg/dL [facility] LABORATORY Comment: Lowest Risk: <100 mg/dL Lower Risk: 100-129 mg/dL Borderline High Risk: 130-159 mg/dL High Risk: 160-189 mg/dL Very High Risk: >ud=988 mg/dL Specimen Anatomical Collection Method Collection Time Receive d Time (Source) Location / / Volume Laterality Blood specimen 01/27/2019 4:08 AM 019 4:50 (specimen) EDT AM EDT Resulting Agency Comment Spec In Lab Galindo Bell MD CHEMISTRY ORDERABLES Performing Organization Address City/[facility]/[place] [address] (ABNORMAL) Hemoglobin A1c (01/27/2019 4:08 AM EDT) Analysis Performed At Patho logist Time Signature Hemoglobin A1C 7.2 (H) 4.3 - 5.6 [facility] LABORATORY Comment: Reference Range: 4.3 - 5.6% 5.7 - 6.4% - Increased Risk of Developin g Diabetes Mellitus >= 6.5% - Consistent with diagnosis of D iabetes Mellitus In the absence of hyperglycemia (i.e. pl asma glucose > 200 mg/dL) or classic symptoms of hyperglycemia a repeat measu rement of HbA1c should be performed on a separate sample to confirm the diagnos is. Diagnosis and Classification of Diabetes Mellitus, Diabetes Care 2013; 36: Suppl. 1, I61-83 Est Avg Gluc 160 mg/dL [facility] Comment: eAG equivalents for HbA1c percentages: HbA1c(%) ?eAG(mg/dL) 6.0 ?126 6.5 ?140 7.0 ?154 7.5 ?169 8.0 ?183 8.5 ?197 9.0 ?212 9.5 ?226 10.0 ? 240 Limitations: The eAG calculation has not been validated on women, individuals below 18 years old and above 70 years old, and individuals with hemoglobinopathies. Additional resources are available on [facility] ADA website. David PENALOZA, Alisson J, Vladimir R, et al. ??Tr anslating the A1C assay into estimated average glucose values. ??Diabetes Care 2008:31(8):2614-5295. Specimen Anatomical Collection Method Collection Time Receive d Time (Source) Location / / Volume Laterality Blood specimen 01/27/2019 4:08 AM 019 4:50 (specimen) EDT AM EDT Resulting Agency Comment Spec In Lab Galindo Bell MD CHEMISTRY ORDERABLES Performing Organization Address City/State/[place] [address] APTT (01/27/2019 4:08 AM EDT) P athologist Signature PTT 32 25 - 37 sec [facility] Comment: The PTT is NOT appropriate for heparin m onitoring. Use the Anti-Xa level for heparin monitoring (HEP UFH) or LMWH mon itoring (HEP LMW). A PTT less than 37 seconds generally indicates adequate hem ostasis. Specimen Anatomical Collection Method Collection Time Receive d Time (Source) Location / / Volume Laterality Blood specimen 01/27/2019 4:08 AM 019 4:50 (specimen) EDT AM EDT Resulting Agency Comment Spec In Lab Galindo Bell MD HEMATOLOGY ORDERABLES Performing Organization Address [facility] Code [place] [address] Heparin (unfractionated) Level (01/27/2019 4:08 AM EDT) athologist Signature Heparin UFH 0.09 IU/mL [facility] LABORATORY Comment: Guidelines for therapeutic unfractionate d heparin levels are summarized below. Heparin (Anti-Xa) levels should be deter mined in a plasma sample that has been drawn 6 hours after a dose change i.e., steady-state has been reached. DRUG ?Dos ing Schedule ? Target Peak Steady-State ?Heparin (Anti-Xa) Levels (Units/mL) Unfractionated ?Continuous inf usion ?0.3-0.7 Heparin ?0.3-0.6 fo r some neurology indications Specimen Anatomical Collection Method Collection Time Receive d Time (Source) Location / / Volume Laterality Blood specimen 01/27/2019 4:08 AM 019 4:50 (specimen) EDT AM EDT Resulting Agency Comment Spec In Lab Galindo Bell MD HEMATOLOGY ORDERABLES Performing Organization Address [facility]/ZIP Code [place] [address] Troponin (01/27/2019 4:08 AM EDT) athologist Signature Troponin-T <0.01 0.00 - 0.00 [facility] ng/mL [facility] Comment: The 99th percentile for Troponin T is le ss than 0.01 ng/mL, any detectable cTnT concentration using this assay should be considered elevated. According to the third universal definit ion of myocardial infarction the following criteria with a clinical prese ntation consistent with acute myocardial ischemia meets the diagnosis for a myocardial infarction (CT). Detection of a rise and/or fall of cTnT, with at least one value greater than the 99th percentile (> or = 0.01) and wi th at least one of the following ?? Symptoms of ischemia ?? New or presumed new significant ST-se gment-T wave (ST-T) changes or new left bundle branch block (LBBB) ?? Development of pathologic Q waves in the ECG ?? Imaging evidence of new loss of viabl e myocardium or new regional wall motion abnormality ?? Identification of an intracoronary th rombus by angiography or autopsy Samples for cTnT testing should be obtai yaneth serially upon first assessment and again 3 to 6 hours later. If the clinica l suspicion is high and previous samples have been negative an additional sample may be indicated. Reference: Third [place] Definition of Myocardial Infarction. Journal of the [place] [employer] 2012;60:1581-98 Specimen Anatomical Collection Method Collection Time Receive d Time (Source) Location / / Volume Laterality Blood specimen 01/27/2019 4:08 AM 019 4:50 (specimen) EDT AM EDT Resulting Agency Comment Spec In Lab Galindo Bell MD CHEMISTRY ORDERABLES Performing Organization Address City/[facility]/ZIP Code Phon e Number [address] POCT Glucose (01/26/2019 10:36 PM EDT) athologist Signature POC Glucose 173 65 - 199 [facility] Comment: Supplemental ranges: <140 mg/dL before meals <180 mg/dL all other times of the day Specimen Anatomical Collection Method Collection Time Receive d Time (Source) Location / / Volume Laterality Blood specimen 01/26/2019 10:36 9 (specimen) PM EDT 10:36 PM EDT Wilton Roper MD POINT OF CARE TEST ORDERABLE S Performing Organization Address City/State/[place] [address] EKG 12 Lead (01/26/2019 10:23 PM EDT) Component Value Ref Range Test Analysis Performed Pathologis t Method Time At Signature Ventricular rate 69 BPM MUSE SYSTEM Atrial Rate 69 BPM MUSE SYSTEM P-R Interval 206 ms MUSE SYSTEM QRS Duration 120 ms MUSE SYSTEM Q-T Interval 416 ms MUSE SYSTEM QTC Calculated 445 ms MUSE SYSTEM (Bezet) Calculated P [place] 48 degrees MUSE SYSTEM Calculated R [place] -59 degrees MUSE SYSTEM Calculated T [place] 131 degrees MUSE SYSTEM INTERPRETATION Normal sinus rhythm MUSE SYSTEM Left axis deviation Non-specific intra-ventricular conduction delay Cannot rule out Septal infarct (cited on or before 21-JUL-20 18) Possible Lateral infarct (cited on or before 21-JUL-2018) Abnormal ECG When compared with ECG of 21-JUL-2018 09:59, No significant change was found Confirmed by MD ABDI, WILTON ([id number]) on 01/27/2019 2:08:52 PM Specimen Anatomical Collection Method Collection Time Receive d Time (Source) Location / / Volume Laterality 01/26/2019 10:23 01/27/2019 2:08 PM EDT PM EDT Galindo Bell MD ECG ORDERABLES Performing Organization Address City/State/ZIP Code Phon e Number MUSE SYSTEM Heparin (unfractionated) Level (01/26/2019 10:21 PM EDT) P athologist Signature Heparin UFH 0.05 IU/mL [facility] LABORATORY Comment: Guidelines for therapeutic unfractionate d heparin levels are summarized below. Heparin (Anti-Xa) levels should be deter mined in a plasma sample that has been drawn 6 hours after a dose change i.e., steady-state has been reached. DRUG ?Dos ing Schedule ? Target Peak Steady-State ?Heparin (Anti-Xa) Levels (Units/mL) Unfractionated ?Continuous inf usion ?0.3-0.7 Heparin ?0.3-0.6 fo r some neurology indications Specimen Anatomical Collection Method Collection Time Receive d Time (Source) Location / / Volume Laterality Blood specimen Venous Draw / 01/26/2019 10:01/27/20 19 (specimen) Unknown PM EDT 10:28 PM EDT Resulting Agency Comment Spec In Lab Galindo Bell MD HEMATOLOGY ORDERABLES Performing Organization Address City/[facility]/ZIP Code Phon e Number [address] Scan, Peripheral Blood (01/26/2019 10:21 PM EDT) [facility] The 3Doodler Method Time Signature Plat Estimate Normal [facility] LABORATORY RBC Morphology Abnormal [facility] Ovalocytes 1-5 /HPF [facility] LABOR[facility] Tear Drop Cells 1-5 /HPF [facility] LABOR[facility] Otoe Cells 1-5 /HPF [facility] LABOR[facility] Specimen Anatomical Collection Method Collection Time Receive d Time (Source) Location / / Volume Laterality Blood specimen 01/26/2019 10: 9 (specimen) PM EDT 10:28 PM EDT Resulting Agency Comment Spec In Lab Galindo Bell MD HEMATOLOGY ORDERABLES Performing Organization Address City/[facility]/ZIP Code Phon e Number [address] (ABNORMAL) Differential, Automated (01/26/2019 10:21 PM EDT) [facility] The [employer] Method Time Signature Neutrophils % 45.8 % [facility] LABORAT[facility] Neutr Abs (ANC) 5.69 1.70 - [facility] 6.10 [facility] x10(3)/[facility] LABORATORY Lymphocytes % 44.3 % [facility] Lymphocytes Abs 5.5 (H) 0.9 - 3.2 [facility] x10(3)/[facility] LABORATORY Monocytes % 6.3 % [facility] LABOR[facility] Monocyte Abs 0.8 0.3 - 0.9 [facility] x10(3)/[facility] LABORATORY Eosinophils % 2.3 % [facility] Eosinophils Abs 0.3 0.0 - 0.4 [facility] x10(3)/[facility] LABORATORY Basophils % 0.7 % [facility] Basophils Abs 0.1 0.0 - 0.1 [facility] x10(3)/[facility] LABORATORY Immature Gran % 0.60 % [facility] LABORATORY Comment: Immature granulocytes(IG's)percentage an d absolute count will include metamyelocytes, myelocytes, and promyelo cytes. Blood smears from CBCs yielding IG's will be scanned manually for concor dance. If this scan disagrees with the automated IG or if promyelocytes are not ed, a manual differential will be performed. Corinne Gran Abs 0.08 (H) 0.00 - 0.04 x10(3)/[facility] LABORATORY Specimen Anatomical Collection Method Collection Time Receive d Time (Source) Location / / Volume Laterality Blood specimen 01/26/2019 10:21 9 (specimen) PM EDT 10:28 PM EDT Resulting Agency Comment Spec In Lab Galindo Bell MD HEMATOLOGY ORDERABLES Performing Organization Address City/State/[place] [address] (ABNORMAL) Hemogram (01/26/2019 10:21 PM EDT) Analysis Performed At Patho logist Time Signature WBC 12.4 (H) 4.0 - 9.5 [facility] x10(3)/[facility] LABORATORY RBC 4.68 4.58 - [facility] 5.54 [facility] x10(6)/[facility] LABORATORY Hemoglobin 14.1 13.7 - [facility] 16.5 gm/dL [facility] LAB[facility]AT[facility] Hematocrit 41.6 40.5 - [facility] 48.5 % [facility] MCV 88.9 82.9 - [facility] 93.1 [facility] LABORATORY MCH 30.1 27.5 - [facility] 32.1 pg [facility] LABORAT[facility] MCHC 33.9 32.0 - [facility] 35.7 gm/dL [facility] LAB[facility] Platelets 228 145 - 357 [facility] x10(3)/[facility] LABORATORY RDWSD 42.8 36.0 - [facility] 45.0 [facility] LABORATORY RDWCV 13.2 11.4 - [facility] 13.8 % [facility] LABORATORY MPV 10.7 7.6 - 12.9 [facility] fL [facility] LABORAT[facility] nRBC % Auto 0.0 % [facility] nRBC Abs Auto 0.000 0.000 - [place] 0.000 [facility] x10(3)/[facility] LABORATORY Specimen Anatomical Collection Method Collection Time Receive d Time (Source) Location / / Volume Laterality Blood specimen 01/26/2019 10: 9 (specimen) PM EDT 10:28 PM EDT Resulting Agency Comment Spec In Lab Galindo Bell MD HEMATOLOGY ORDERABLES Performing Organization Address City/State/ZIP Code Phon e Number [address] CK (01/26/2019 10:21 PM EDT) athologist Signature CK, Total 133 0 - 200 [facility] unit/L [facility] LABORATORY Specimen Anatomical Collection Method Collection Time Receive d Time (Source) Location / / Volume Laterality Blood specimen 01/26/2019 10: 9 (specimen) PM EDT 10:28 PM EDT Resulting Agency Comment Spec In Lab Galindo Bell MD CHEMISTRY ORDERABLES Performing Organization Address City/[facility] Code Phon e Number [address] (ABNORMAL) Troponin (01/26/2019 10:21 PM EDT) [facility] Troponin-T 0.01 (H) 0.00 [facility] ng/mL [facility] Comment: The 99th percentile for Troponin T is le ss than 0.01 ng/mL, any detectable cTnT concentration using this assay should be considered elevated. According to the third universal definit ion of myocardial infarction the following criteria with a clinical prese ntation consistent with acute myocardial ischemia meets the diagnosis for a myocardial infarction (CT). Detection of a rise and/or fall of cTnT, with at least one value greater than the 99th percentile (> or = 0.01) and wi th at least one of the following ?? Symptoms of ischemia ?? New or presumed new significant ST-se gment-T wave (ST-T) changes or new left bundle branch block (LBBB) ?? Development of pathologic Q waves in the ECG ?? Imaging evidence of new loss of viabl e myocardium or new regional wall motion abnormality ?? Identification of an intracoronary th rombus by angiography or autopsy Samples for cTnT testing should be obtai yaneht serially upon first assessment and again 3 to 6 hours later. If the clinica l suspicion is high and previous samples have been negative an additional sample may be indicated. Reference: Third [place] Definition of Myocardial Infarction. Journal of the [place] [employer] 2012;60:1581-98 Specimen Anatomical Collection Method Collection Time Receive d Time (Source) Location / / Volume Laterality Blood specimen 01/26/2019 10: 9 (specimen) PM EDT 10:28 PM EDT Resulting Agency Comment Spec In Lab Galindo Bell MD CHEMISTRY ORDERABLES Performing Organization Address [facility] Phon e Number [address] (ABNORMAL) TSH (01/26/2019 10:21 PM EDT) P athologist Signature TSH 15.65 (H) 0.27 - [place] 4.20 [facility] mcIU/mL [facility] LABORATORY Specimen Anatomical Collection Method Collection Time Receive d Time (Source) Location / / Volume Laterality Blood specimen 01/26/2019 10:21 9 (specimen) PM EDT 10:28 PM EDT Resulting Agency Comment Spec In Lab Galindo Bell MD CHEMISTRY ORDERABLES Performing Organization Address City/[facility]/ZIP Code Phon e Number [address] Magnesium (01/26/2019 10:21 PM EDT) P athologist Signature Magnesium 0.71 0.69 - 1.07 [facility] mmol/L [facility] LABORATORY Specimen Anatomical Collection Method Collection Time Receive d Time (Source) Location / / Volume Laterality Blood specimen 01/26/2019 10:21 9 (specimen) PM EDT 10:28 PM EDT Resulting Agency Comment Spec In Lab Galindo Bell MD CHEMISTRY ORDERABLES Performing Organization Address City/State/[place] [address] Hepatic Function Panel (01/26/2019 10:21 PM EDT) P athologist Signature Total Protein 7.3 6.1 - 8.0 [facility] gm/dL [facility] Albumin 4.4 3.2 - 5.2 [place] gm/dL [facility] AST 24 0 - 39 [facility] unit/L [facility] ALT 32 0 - 55 [facility] unit/L [facility] Alk Phos 47 40 - 120 [facility] unit/L [facility] Total 0.5 0.2 - 1.3 [place] Bilirubin mg/dL [facility] Bili, Direct 0.1 0.0 - 0.3 [facility] mg/dL [facility] Specimen Anatomical Collection Method Collection Time Receive d Time (Source) Location / / Volume Laterality Blood specimen 01/26/2019 10: 9 (specimen) PM EDT 10:28 PM EDT Resulting Agency Comment Spec In Lab Galindo Bell MD CHEMISTRY ORDERABLES Performing Organization Address City/[facility]/[place] [address] APTT (01/26/2019 10:21 PM EDT) athologist Signature PTT 28 25 - 37 sec [facility] LAB[facility] Comment: The PTT is NOT appropriate for heparin m onitoring. Use the Anti-Xa level for heparin monitoring (HEP UFH) or LMWH mon itoring (HEP LMW). A PTT less than 37 seconds generally indicates adequate hem ostasis. Specimen Anatomical Collection Method Collection Time Receive d Time (Source) Location / / Volume Laterality Blood specimen 01/26/2019 10: 9 (specimen) PM EDT 10:28 PM EDT Resulting Agency Comment Spec In Lab Galindo Bell MD HEMATOLOGY ORDERABLES Performing Organization Address City/[facility]/[place] [address] (ABNORMAL) Prothrombin Time (01/26/2019 10:21 PM EDT) P athologist Signature PT 12.7 (H) 9.4 - 12.5 [facility] LABORATORY INR 1.1 [facility] Comment: An INR <2.0 indicates adequate procoagul ant activity for hemostasis in most patients without underlying bleeding dis orders, though the INR may not adequately reflect hemostatic capacity i n patients with liver disease and synthetic impairment. The recommended ta rget INR range for therapeutic anticoagulation is 2.0 ? 3.0 for most applications, though lower and higher ranges may be appropriate depending on c linical circumstances. Specimen Anatomical Collection Method Collection Time Receive d Time (Source) Location / / Volume Laterality Blood specimen 01/26/2019 10: 9 (specimen) PM EDT 10:28 PM EDT Resulting Agency Comment Spec In Lab Galindo Bell MD HEMATOLOGY ORDERABLES Performing Organization Address City/[facility]/[place] [address] (ABNORMAL) pro-Brain Natriuretic Peptide (01/26/2019 10:21 PM EDT) athologist Signature ProBNP 394 (H) <=125 pg/mL [facility] Specimen Anatomical Collection Method Collection Time Receive d Time (Source) Location / / Volume Laterality Blood specimen 01/26/2019 10:21 9 (specimen) PM EDT 10:28 PM EDT Resulting Agency Comment Spec In Lab Galindo Bell MD CHEMISTRY ORDERABLES Performing Organization Address City/State/[place] [address] (ABNORMAL) BMP w/fasting Glucose (01/26/2019 10:21 PM EDT) P athologist Signature Glucose 171 (H) 65 - 99 [facility] Fasting mg/dL [facility] Comment: ?Fasting* Glucose Interpretive C riteria Normal ?65-99 mg/dL Impaired Fasting glucose ?100-125 mg/dL Consistent with Diabetes Mellitus ? >or= 126 mg/dL *Fasting is defined as no caloric intake for at least 8 hours In the absence of unequivocal hypergly cemia a plasma glucose value of >or= 126 mg/dL should be repeated on a subseq uent day. Diagnosis and Classification of Diabetes Mellitus, Position Statement from the [place] [employer]. ??Diabete s Care, Volume 33, Supplement 1, Aug 2009 BUN 22 (H) 10 - 20 mg/dL [facility]ORAT[facility] Creatinine 0.94 0.80 - 1.50 mg/dL [facility] Sodium 136 135 - 145 mmol/L [facility] Potassium 4.5 3.5 - 5.0 mmol/L [facility] Comment: Please note: ??Patients with WBC >100,00 0 may have falsely elevated Potassium levels. ??For accurate Potassium quantif ication in these patients send serum separator tube (gold top) for subsequent determinations. ??Contact the Clinical Chemistry Laboratory if there are any qu estions. Chloride 101 98 - 107 mmol/L [facility] CO2 22 22 - 31 mmol/L [facility] Anion Gap 13 5 - 15 mmol/L [facility] Calcium 9.4 8.5 - 10.5 mg/dL [facility] Estimated GFR 84 >=60 mL/min/1.73 m?? [facility] Comment: The eGFR was calculated using the CKD-EP I equation. As with all creatinine based estimates of kidney function, eGFR values calculated with the CKD-EPI equation are not accurate in patients wi th acute kidney failure, extremes of body mass or the acutely ill. [email or web address]/DHMCnkf eGFR 98 >=60 mL/min/1.73 m?? [facility] Comment: The eGFR was calculated using the CKD-EP I equation. As with all creatinine based estimates of kidney function, eGFR values calculated with the CKD-EPI equation are not accurate in patients wi th acute kidney failure, extremes of body mass or the acutely ill. 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 NSTEMI (non-ST elevated myocardial infar ction) Acute myocardial infarction, subendocard ial infarction, episode of care unspecified S/P CABG (coronary artery bypass graft) Postsurgical aortocoronary bypass status Type 2 diabetes mellitus with complicati on Hypertension Unspecified essential hypertension Dyslipidemia Other and unspecified hyperlipidemia Mitral regurgitation Mitral valve disorders S/P CABG (coronary artery bypass graft) Postsurgical aortocoronary bypass status documented in this encounter Administered Medications Inactive Administered Medications - up to 3 most recent administrations Medication Order MAR Action Action Date Dose Rate Site acetaminophen (OFIRMEV) Given 02/01/2019 1:00 PM 1,000 mg 400 mL/hr injection 1,000 mg EDT 1,000 mg, Intravenous, at 400 mL/hr, EVERY 8 HOURS SCHEDULED, 3 doses, First dose on Tue01/31/19 at 2100, Last dose on Tue02/01/19 at 1400, Maximum dose of acetaminophen is 4000 mg from all sources in 24 hours., Routine Given 02/01/2019 5:13 AM EDT 1,000 mg 400 mL/hr Given 01/31/2019 9:06 PM EDT 1,000 mg 400 mL/hr acetaminophen (TYLENOL) tablet 1,000 mg Given 02/06/2019 11:59 AM EDT 1,000 mg 1,000 mg, Oral, EVERY 6 HOURS SCHEDULED, First dose on Tue02/01/19 at 2200, Until Discontinued, Maximum dose of acetaminophen is 4000 mg from all sources in 24 hours., Routine Given 02/06/2019 6:22 AM EDT 1,000 mg Given 02/06/2019 12:35 AM EDT 1,000 mg albumin (human) 25% 50 mL intravenous New Bag 01/31/2019 9:00 PM E DT 12.5 g solution 12.5 g, Intravenous, EVERY 15 MIN, 2 doses, First dose on Tue01/31/19 at 204, Last dose on Tue01/31/19 at 2100, Total dose equals 25 g given as 12.5 g/ 50 mL bottle every 15 min x2 doses PRN as needed for volume replacement to maintain cardiac index greater than or equal to 2.0 L/min/M2, STAT New Bag 01/31/2019 8:45 PM EDT 12.5 g AMIOdarone (CORDARONE) 360 Restarted 02/04/2019 2:45 AM EDT 0.5 mg/min 16.7 mL/hr mg in dextrose 5% 200 mL infusion 1 mg/min (33.3333 mL/hr, rounded to 33.3 mL/hr), Intravenous, CONTINUOUS, Starting on 02/03/19 at 0200, Until Tue02/04/19 at 1100, 1mg/min for 6hrs, then 0.5mg/min for 18hrs. After first 24hours, order maintenance dose 0.5 mg/min. Use in-line filter. New Bag 02/03/2019 10:59 PM EDT 0.5 mg/min 16.7 mL/hr New Bag 02/03/2019 5:26 PM EDT 1 mg/min 33.3 mL/hr AMIOdarone (CORDARONE) bolus from Bolus from Bag 02/03/2019 2:30 AM E DT 150 mg bag 150 mg 150 mg, Intravenous, ONCE, 1 dose, On 02/03/19 at 0200, Warning Vesicant/Irritant Medication , Routine AMIOdarone (CORDARONE; PACERONE) tablet 200 Given 02/06/2019 8:54 AM EDT 200 mg mg 200 mg, Oral, DAILY, First dose on Tue02/04/19 at 1000, Until Discontinued, Routine Given 02/05/2019 8:10 AM EDT 200 mg Given 02/04/2019 10:00 AM EDT 200 mg AMIOdarone (CORDARONE; PACERONE) tablet 400 Given 02/02/2019 9:31 PM EDT 400 mg mg 400 mg, Oral, 3 TIMES DAILY, First dose on Tue02/02/19 at 0915, Until Discontinued, Routine Given 02/02/2019 2:14 PM EDT 400 mg Given 02/02/2019 10:13 AM EDT 400 mg aspirin chewable tablet 81 mg Given 02/06/2019 8:54 AM EDT 81 mg 81 mg, Oral, DAILY, First dose on Tue01/31/19 at 2030, Until Discontinued, Start on post-op day 1 in the AM., Routine Given 02/05/2019 8:11 AM EDT 81 mg Given 02/04/2019 8:30 AM EDT 81 mg aspirin EC tablet 81 mg Given 01/31/2019 8:50 AM EDT 81 mg 81 mg, Oral, DAILY, First dose on Tue01/27/19 at 0900, Until Discontinued, Routine Given 01/30/2019 8:12 AM EDT 81 mg Given 01/29/2019 8:11 AM EDT 81 mg aspirin suppository 300 mg Given 01/31/2019 10:22 PM EDT 300 mg 300 mg, Rectal, DAILY, First dose on Tue01/31/19 at 2030, Until Discontinued, Start on post-op day 1 in the AM Give LA if unable to take PO, Routine atorvastatin (LIPITOR) tablet 80 mg Given 02/05/2019 4:25 PM EDT 80 mg 80 mg, Oral, EVERY EVENING, First dose on Tue01/26/19 at 2315, Until Discontinued, Routine Given 02/04/2019 5:48 PM EDT 80 mg Given 02/03/2019 5:26 PM EDT 80 mg chlorhexidine (PERIDEX) 0.12 % oral solution Given 8:09 AM EDT 15 mLs 15 mL 15 mL, Oral, EVERY 12 HOURS SCHEDULED (2 times per day), First dose on Tue01/31/19 at 2100, Until Discontinued, [place] teeth, Routine Given 01/31/2019 9:06 PM EDT 15 mLs clopidogrel (PLAVIX) tablet 75 mg Given 01/27/2019 8:40 AM EDT 75 mg 75 mg, Oral, DAILY, First dose on 01/27/19 at 0900, Until Discontinued, Routine clopidogrel (PLAVIX) tablet 75 mg Given 02/06/2019 8:54 AM EDT 75 mg 75 mg, Oral, DAILY, First dose on Ros[place] 02/01/19 at 0900, Until Discontinued, Routine Given 02/05/2019 8:11 AM EDT 75 mg Given 02/04/2019 8:30 AM EDT 75 mg dextrose 50% intravenous solution 25-50 mL 25-50 mL (12.5-25 g), Intravenous, EVERY 1 HOUR PRN, S tarting on Tue02/05/19 at 1124, Until Tue02/06/19 at 1630, Low blood sugar, Fo r BG 50-70 mg/dL: Oral treatment preferred:?? If able to drink, give 120 mL Juice or Regular (not diet) soda OR If NPO, give 15 gram glucose 40% oral gel massaged into buccal mucosa OR if unconscious or uncooperative, give 12.5 gram (25 mL) Dextrose 50% IV OR, if no IV access, give 1 mg Glucagon IM. For BG less than 50 mg/dL: Oral treatment preferred:?? If able to drink, give 240 mL Juice or Regular (not diet) soda OR If NPO, give 30 gram glucose 40% oral gel m assaged in buccal mucosa OR if unconscious or uncooperative, give 25 gram (50 mL) D extrose 50% IV OR, if no IV access, give 1 mg Glucagon IM. Recheck BG in 30 minutes. May repeat juice, gel, dextrose or glucagon once per episode. To avoid ex travasation, push Dextrose 50% SLOWLY (3 mL over 1 minute) in a patent, running IV, preferably a c entral line. For persistent hypoglycemia, consider longer -acting treatment for the duration of the active insulin., Routine EPINEPHrine 2 mg in Rate/Dose Verify 02/01/2019 2:00 AM 2 mcg/min 15 mL/hr dextrose 5% 250 mL EDT infusion 0-10 mcg/min (0-75 mL/hr), Intravenous, CONTINUOUS, Starting on Tue01/31/19 at 2030, Until [place] 02/01/19 at 1202, Titrate to keep systolic blood pressure greater than 90 mmHg. Start at 1 mcg/min, adjust by 1 mcg/min every 3 minutes. Dose not to exceed 10 mcg/min. Use if phenylephrine or vasopressin or norepinephrine is ineffective. Call pager # [phone] if initiated. Rate/Dose Verify 02/01/2019 1:00 AM EDT 2 mcg/min 15 mL/hr Rate/Dose Verify 02/01/2019 12:00 AM EDT 2 mcg/min 15 mL/hr famotidine (PEPCID) tablet 20 mg Given 01/31/2019 8:50 AM EDT 20 mg 20 mg, Oral, DAILY, First dose on Tue01/27/19 at 0900, Until Discontinued, Routine Given 01/30/2019 8:12 AM EDT 20 mg Given 01/29/2019 8:11 AM EDT 20 mg fentaNYL 50 mcg/mL syringe Rate/Dose Verify 02/01/2019 6:00 AM EDT 50 mcg/hr 1 mL/hr 0-100 mcg/hr (0-2 mL/hr), Intravenous, CONTINUOUS, Starting on Tue01/31/19 at 2030, Until [place] 02/01/19 at 1202, Titrate to patient comfort, pain scale 1-3. Start at 25 mcg/hr, adjust by 25 mcg/hr every 15 minutes. Dose not to exceed 100 mcg/hour. Rate/Dose Change 02/01/2019 5:10 AM EDT 50 mcg/hr 1 mL/hr Rate/Dose Verify 02/01/2019 4:00 AM EDT 100 mcg/hr 2 mL/hr fentaNYL bolus from syringe 25 mcg Bolus from Bag 02/01/2019 1:31 AM EDT 25 mcg 25 mcg, Intravenous, EVERY 10 MIN PRN, Starting on Tue01/31/19 at 2014, Until [place] 02/01/19 at 1202, Pain, For breakthrough pain (pain scale greater than 3), while intubated, Maximum dose 300 mcg over one hour., Routine Bolus from Bag 02/01/2019 1:15 AM EDT 25 mcg Bolus from Bag 02/01/2019 12:10 AM EDT 25 mcg furosemide (LASIX) injection 20 mg Given 02/05/2019 8:10 AM EDT 20 mg 20 mg, Intravenous, 2 TIMES DAILY, First dose on [place] 02/01/19 at 0900, Until Discontinued Given 02/04/2019 5:46 PM EDT 20 mg Given 02/04/2019 8:34 AM EDT 20 mg furosemide (LASIX) tablet 20 mg Given 02/06/2019 8:54 AM EDT 20 mg 20 mg, Oral, DAILY, First dose on Tue02/06/19 at 0900, Until Discontinued, Routine gabapentin (NEURONTIN) capsule 300 mg Given 01/31/2019 8:50 AM EDT 300 mg 300 mg, Oral, 3 TIMES DAILY, First dose on Tue01/26/19 at 2300, Until Discontinued, Routine Given 01/30/2019 9:00 PM EDT 300 mg Given 01/30/2019 2:14 PM EDT 300 mg gabapentin (NEURONTIN) capsule 300 mg Given 02/06/2019 8:54 AM EDT 300 mg 300 mg, Oral, 3 TIMES DAILY, First dose on Tue02/01/19 at 1500, Until Discontinued, Routine Given 02/05/2019 9:07 PM EDT 300 mg Given 02/05/2019 2:35 PM EDT 300 mg glucagon (human recombinant) injection S olR 1 mg 1 mg, Intramuscular, EVERY 1 HOUR PRN, S tarting on Tue02/05/19 at 1124, Until Tue02/06/19 at 1630, Low blood sugar, For BG 50-70 mg/dL: Oral treatment preferred:?? If able to drink, give 120 mL Juice or R egular (not diet) soda OR If NPO, give 15 gram glucose 40% oral gel massaged into buccal mucosa OR if unconscious or uncooperative, give 12.5 gram (25 mL) De xtrose 50% IV OR, if no IV access, give 1 mg Glucagon IM. For BG less than 50 m g/dL: Oral treatment preferred:?? If able to drink, give 240 mL Juice or Regular (not diet) soda OR If NPO, give 30 gram glucose 40% oral gel massaged in buccal mucosa OR if unconscious or uncooperative, give 25 gram (50 mL) Dextrose 50% IV OR, if no IV access, give 1 mg Glucagon IM. Recheck BG in 30 minutes. May repeat j uice, gel, dextrose or glucagon once per episode. To avoid extravasation, push Dextrose 50% SLOWLY (3 mL over 1 minute) in a patent, running IV, preferably a centr al line. For persistent hypoglycemia, consider longer-acting treatment for the duration of the active insulin., Routine glucose (GLUTOSE) 40% oral gel 15-30 g, Buccal, EVERY 30 MIN PRN, Start ing on Tue02/05/19 at 1124, Until Tue02/06/19 at 1630, Low blood sugar, For BG 50-70 mg/dL: Oral treatment preferred:?? If able to drink, give 120 mL Juice or Regu lar (not diet) soda OR If NPO, give 15 gram glucose 40% oral gel massaged into buccal mucosa OR if unconscious or uncooperative, give 12.5 gram (25 mL) De xtrose 50% IV OR, if no IV access, give 1 mg Glucagon IM. For BG less than 50 m g/dL: Oral treatment preferred:?? If able to drink, give 240 mL Juice or Regular (not diet) soda OR If NPO, give 30 gram glucose 40% oral gel massaged in buccal mucosa OR if unconscious or uncooperative, give 25 gram (50 mL) Dextrose 50% IV OR, if no IV access, give 1 mg Glucagon IM. Recheck BG in 30 minutes. May repeat j uice, gel, dextrose or glucagon once per episode. To avoid extravasation, push Dextrose 50% SLOWLY (3 mL over 1 minute) in a patent, running IV, preferably a centr al line. For persistent hypoglycemia, consider longer-acting treatment for the duration of t he active insulin. 1 tube contains 15 grams of glucose (net weight of tube = 37. 5 grams., Routine heparin (porcine) injection 0-4,000 Given 01/27/2019 6:06 AM EDT 4,000 Units Units 0-4,000 Units, Intravenous, BOLUS PER HEPARIN PROTOCOL, Starting on Tue01/26/19 at 2240, Until 01/27/19 at 1618, Per Protocol, START ADJUSTMENT SCHEDULE 6 HOURS AFTER STARTING INFUSION Heparin UFH Level between 0.1 - 0.29 IU/mL: Bolus 2,000 units Heparin UFH Level less than 0.1 IU/mL: Bolus 4,000 units, Routine heparin 25,000 units in Rate/Dose Change 01/27/2019 6:09 1,450 Unit s/hr 29 mL/hr dextrose 5% 500 mL AM EDT infusion 0-5,000 Units/hr (0-100 mL/hr), Intravenous, CONTINUOUS, Starting on Tue01/26/19 at 2300, Until 01/27/19 at 1618, BEGIN infusion at 1,000 units per hr (12 units/kg/hr). MAX INITIAL infusion rate is 1,000 units/hr. Target Heparin UFH Level (anti-Xa activity) = 0.3 - 0.7 IU/mL Start adjustment schedule 6 hours after starting infusion. If Heparin UFH Level is: - less than 0.1 IU/mL, administer PRN bolus and increase rate by 450 units per hr (4 units/kg/hr) - 0.1 - 0.29 IU/mL, administer PRN bolus and increase rate by 250 units per hr (2 units/kg/hr) - 0.3 - 0.7 IU/mL, No Change - 0.71 - 0.85 IU/mL, decrease rate by 100 units per hr (1 units/kg/hr) - 0.86 - 1.05 IU/mL, stop infusion for 30 minutes, then decrease rate by 250 units per hr (2 units/kg/hr) - Greater than 1.05 IU/mL, stop infusion for 60 minutes, then decrease rate by 350 units per hour (3 units/kg/hr) Repeat Heparin UFH Level 6 hours after initiating heparin. Then 6 hours after each dose adjustment. When 2 consecutive Heparin UFH Level within target range of 0.3 - 0.7 IU/mL, change Heparin UFH Level to once every 24 hours with A.M. labs while on heparin. RN to order required Heparin UFH Level - Per Protocol, Routine New Bag 01/26/2019 11:09 PM EDT 1,000 Units/hr 20 mL/hr insulin glargine VIAL injection 20 Units Given 01/31/2019 8:47 AM EDT 20 Units 20 Units, Subcutaneous, EVERY 12 HOURS SCHEDULED (2 times per day), First dose on Tue01/26/19 at 2330, Until Discontinued, Routine Given 01/30/2019 9:02 PM EDT 20 Units Given 01/30/2019 8:11 AM EDT 20 Units insulin glargine VIAL injection 50 Units Given 02/05/2019 9:10 PM EDT 50 Units 50 Units, Subcutaneous, NIGHTLY, First dose on Tue02/02/19 at 2100, Until Discontinued, Routine Given 02/04/2019 9:46 PM EDT 50 Units Given 02/03/2019 8:31 PM EDT 50 Units insulin lispro (HumaLOG) VIAL injection 0-12 Given 08/2018 8:13 AM EDT 8 Units Units 0-12 Units, Subcutaneous, 3 TIMES DAILY WITH MEALS, First dose (after last modification) on Tue02/02/19 at 1700, Until Discontinued, MEAL ASSOCIATED 1 unit of insulin for every 7 grams of carbohydrates Hold if not eating or if BG < 80, Routine Given 02/04/2019 5:41 PM EDT 8 Units Given 02/04/2019 12:26 PM EDT 4 Units insulin lispro (HumaLOG) VIAL injection Given 02/06/2019 12:00 P M EDT 10 Units 0-12 Units 0-12 Units, Subcutaneous, EVERY 4 HOURS SCHEDULED, First dose on Tue02/05/19 at 1200, Until Discontinued, Correction Factor 10 BG 140 - 160 Give 2 units BG 161 - 180 Give 4 units BG 181 - 200 Give 6 units BG 201 - 220 Give 8 units BG 221 - 240 Give 10 units BG greater than 240, give 12 units and recheck BG in 2 hours. If BG remains greater than 240, GIVE 12 units (no more than TWO times) & call for new basal insulin orders. If less than 240 after two hours, give no insulin and resume prior schedule. DO NOT hold if NPO, unless specifically told to do so., Routine Given 02/06/2019 8:57 AM EDT 2 Units Given 02/05/2019 8:07 PM EDT 12 Units insulin lispro (HumaLOG) VIAL injection Given 02/06/2019 12:42 P M EDT 6 Units 0-15 Units 0-15 Units, Subcutaneous, 3 TIMES DAILY WITH MEALS, First dose (after last modification) on Tue02/05/19 at 1200, Until Discontinued, MEAL ASSOCIATED 1 unit of insulin for every 5 grams of carbohydrates Hold if not eating or if BG < 80, Routine Given 02/06/2019 8:58 AM EDT 12 Units Given 02/05/2019 5:38 PM EDT 14 Units insulin lispro (HumaLOG) VIAL injection 20 Given 01/30 5:02 PM EDT 20 Units Units 20 Units, Subcutaneous, 3 TIMES DAILY WITH MEALS, First dose on Tue01/27/19 at 0800, Until Discontinued, MEAL ASSOCIATED If a range is ordered, give smaller dose with less carbohydrate intake. Hold if not eating, Routine Given 01/30/2019 12:17 PM EDT 20 Units Given 01/30/2019 8:11 AM EDT 20 Units insulin lispro (HumaLOG) VIAL injection Given 01/31/2019 11:47 A M EDT 3 Units 3-12 Units 3-12 Units, Subcutaneous, 4 TIMES DAILY BEFORE MEALS & NIGHTLY, First dose on Tue01/26/19 at 2330, Until Discontinued, CORRECTION BOLUS Resistant to insulin obese patient or TDD (total daily dose of all insulin needed to achieve glycemic control) greater than 60 units BG 140 - 160 Give 3 units BG 161 - 200 Give 6 units BG 201 - 240 Give 9 units BG greater than 240, give 12 units and recheck BG in 2 hours.If BG less than 240 after two hours, give no insulin and resume prior schedule. If BG remains greater than 240, repeat 12 units (no more than three times) & call for new basal insulin orders. DO NOT hold if NPO, unless specifically told to do so., Routine Given 01/31/2019 8:48 AM EDT 9 Units Given 01/30/2019 9:04 PM EDT 3 Units insulin lispro (HumaLOG) VIAL injection 3-6 Given 01/07 8:32 AM EDT 6 Units Units 3-6 Units, Subcutaneous, 3 TIMES DAILY WITH MEALS, First dose on Tue01/31/19 at 2130, Until Discontinued, If 50% or less of the meal is eaten, give 3 units immediately following the meal. If more than 50% of the meal is eaten, give 6 units immediately following the meal., Routine insulin regular human Bolus from Bag 02/05/2019 10:39 AM EDT 8 Units (HumuLIN;NovoLIN) 1 unit/mL in sodium chloride 0.9% BOLUS 0-16 Units 0-16 Units, Intravenous, PER INSULIN PROTOCOL, Starting on Tue01/31/19 at 2014, Until Tue02/05/19 at 1124, Per Protocol, BOLUS order. Type 2 No Initial bolus. Adjustment bolus per insulin infusion protocol: IV insulin Bolus scale: For BG in mg/dL (250-299 = 8 units, 300-359 = 12 units, greater than 360 = 16 units), Routine Bolus from Bag 02/05/2019 10:15 AM EDT 8 Units Bolus from Bag 02/05/2019 9:25 AM EDT 8 Units insulin regular human Rate/Dose Verify 02/05/2019 11:07 4.5 Units/hr 4.5 mL/hr (HumuLIN;NovoLIN) AM EDT 1unit/mL in sodium chloride 0.9% infusion 0.5-16 Units/hr (0.5-16 mL/hr), Intravenous, CHANGE BAG EVERY EVENING, First dose on Tue01/31/19 at 2030, Until Discontinued, Type 2 diabetes. Current blood glucose 140 - 179 Titration- aim for target range of 140 - 180 mg/dL. Check BG every hour unless otherwise indicated. [[ No initial bolus. Begin continuous infusion at 2 units/hour. ]] If BG at the time the infusion is started outside of the CURRENT BLOOD GLUCOSE range above, contact MD for new starting rate/bolus order. When infusion is paused, turn it back on as soon as possible per protocol. If BG at the time the infusion is started is outside of the CURRENT BLOOD GLUCOSE range above, contact provider for new starting rate/bolus order. Current BG less than 80 - Stop insulin. If BG less than 70, treat per hypoglycemia protocol. Re-check BG in 30 minutes and as soon as BG is greater than 80, restart with rate 50% of previous rate. If infusion stopped after previous rate had been 0.5 unit/hour, recheck every hour and when BG greater than 100 and higher than last test restart at 0.5 unit/hour. IF INFUSION IS PAUSED, TURN IT BACK ON SOON POSSIBLE, PER PROTOCOL. Current BG 80 - 139 - If BG dropped 10 mg/dL or more since last test, decrease rate by 50% and re-check in 30 minutes. Otherwise, decrease rate by 0.5 units/hour. Current BG 140 - 180 - If BG dropped 50 mg/dL or more since last test, decrease rate by 1 unit/hour. Otherwise, maintain same rate. Current BG 181 - 220 - If BG is lower than last test, maintain same rate. Otherwise, increase rate by 0.5 units/hour. Current BG 221 - 250 - If BG dropped 30 mg/dL or more since last test, maintain same rate. Otherwise, increase rate by 1 unit/hour. Current BG greater than 250 - Increase rate by 1 unit/hour AND bolus with Regular insulin IV as per IV Bolus Scale. Re-check BG in 30 minutes. THE FIRST DOSE OF SC INSULIN OUGHT TO BE ADMINISTERED BEFORE DISCONTINUING THE INFUSION. AN OVERLAP OF 2-3 HOURS IS RECOMMENDED. Continue to monitor the BG hourly., Routine Rate/Dose Change 02/05/2019 10:38 AM EDT 4.5 Units/hr 4.5 mL/hr Rate/Dose Change 02/05/2019 9:24 AM EDT 3.5 Units/hr 3.5 mL/hr isosorbide mononitrate (IMDUR) CR tablet 120 Given 8:58 AM EDT 120 mg mg 120 mg, Oral, DAILY, First dose on Tue01/27/19 at 0900, Until Discontinued, DO NOT CRUSH OR OPEN, Routine Given 01/30/2019 8:12 AM EDT 120 mg Given 01/29/2019 8:11 AM EDT 120 mg lisinopril (PRINIVIL;ZESTRIL) tablet 10 mg Given 01/30/2019 8:12 AM EDT 10 mg 10 mg, Oral, DAILY, First dose on Tue01/27/19 at 0900, Until Discontinued, Routine Given 01/29/2019 8:11 AM EDT 10 mg Given 01/28/2019 9:00 AM EDT 10 mg magnesium hydroxide (Milk of Magnesia) (240 Given 02/04/2019 8:30 AM EDT 10 mLs mg/mL) oral liquid 10 mL 10 mL, Oral, DAILY, First dose on Tue02/02/19 at 0900, Until Discontinued, Post-op day 2. Do not use with renal insufficiency., Routine Given 02/03/2019 9:30 AM EDT 10 mLs Given 02/02/2019 8:22 AM EDT 10 mLs magnesium oxide (MAG-OX) tablet 400 mg Given 01/31/2019 8:50 AM EDT 400 mg 400 mg, Oral, 2 TIMES DAILY, First dose on Tue01/26/19 at 2300, Until Discontinued, Routine Given 01/30/2019 9:00 PM EDT 400 mg Given 01/30/2019 8:12 AM EDT 400 mg magnesium sulfate 2 g in sterile water New Bag 01/26/2019 11:2 1 PM EDT 2 g 25 mL/hr 50 mL 2 g, Intravenous, ONCE, 1 dose, On Tue01/26/19 at 2330, Administer over 120 Minutes metoprolol (LOPRESSOR) tablet 12.5 mg Given 02/01/2019 8:22 AM EDT 12.5 mg 12.5 mg, Oral, EVERY 12 HOURS SCHEDULED (2 times per day), First dose on [place] 02/01/19 at 0900, Until Discontinued, Please hold for hr <50, sbp <90, Routine metoprolol (LOPRESSOR) tablet 12.5 mg Given 02/06/2019 8:54 AM EDT 12.5 mg 12.5 mg, Oral, EVERY 12 HOURS SCHEDULED (2 times per day), First dose (after last modification) on [place] 02/01/19 at 2100, Until Discontinued, Please hold for hr <50, sbp <90, Routine Given 02/05/2019 9:07 PM EDT 12.5 mg Given 02/05/2019 8:11 AM EDT 12.5 mg metoprolol succinate (TOPROL-XL) XL tablet 50 Given 8:50 AM EDT 50 mg mg 50 mg, Oral, DAILY, First dose on [facility] 01/27/19 at 0900, Until Discontinued, DO NOT CRUSH OR OPEN, Routine Given 01/30/2019 8:12 AM EDT 50 mg Given 01/29/2019 8:11 AM EDT 50 mg miconazole (MICOTIN) 2 % powder Given 02/06/2019 9:00 AM EDT Topical (Top), 2 TIMES DAILY, First dose on [place] 02/01/19 at 2100, Until Discontinued Given 02/05/2019 9:00 AM EDT Given 02/04/2019 9:48 PM EDT NORepinephrine 16 mcg/mL Rate/Dose Verify 02/01/2019 1:00 AM 6 mcg/ min 22.5 mL/hr (standard ADULT and Pedi EDT greater than 20 kg) infusion 0-30 mcg/min (0-112.5 mL/hr), Intravenous, CONTINUOUS, Starting on Tue01/31/19 at 2030, Until [place] 02/01/19 at 1202, Titrate to keep systolic blood pressure greater than 90 mmHg. Start at 2 mcg/minute and adjust by 2 mcg/min every 3 minutes. Dose not to exceed 30 mcg/minute. Begin if phenyleprine and/or vasopressin ineffective.Call pager # [phone] if initiated., Routine Rate/Dose Verify 02/01/2019 12:00 AM EDT 6 mcg/min 22.5 mL/hr Rate/Dose Change 01/31/2019 11:15 PM EDT 6 mcg/min 22.5 mL/hr oxyCODONE (ROXICODONE) immediate release tablet Given 02/05/2019 9:07 PM EDT 5 mg 5-15 mg 5-15 mg, Oral, EVERY 4 HOURS PRN, Starting on [place] 02/01/19 at 0836, Until 02/06/19 at 1630, Pain, Give 5 mg 1 tab PO Q 4 hours PRN for pain >/= to 3-5/10. Give 10 mg 2 tabs PO Q 4 hours PRN for pain >/= to 6-8/10. Give 15 mg 3 tabs PO Q 4 hours PRN for pain >/= to 9-10/10. Call provider for new pain management orders if pain not relieved after an appropriate amount of time or if regimen is not tolerated. Hold if patient appears over sedated., Routine Given 02/04/2019 10:15 PM EDT 5 mg Given 02/04/2019 4:27 PM EDT 15 mg pantoprazole (PROTONIX) injection 40 mg Given 02/02/2019 8:23 AM EDT 40 mg 40 mg, Intravenous, DAILY, First dose on Tue01/31/19 at 2030, Until Discontinued, Reconstitute with 10 mL of normal saline to a concentration of 4 mg/mL and infuse slowly over 2 minutes. , Routine Given 02/01/2019 8:11 AM EDT 40 mg Given 01/31/2019 10:22 PM EDT 40 mg pantoprazole (PROTONIX) tablet 40 mg Given 02/06/2019 8:53 AM EDT 40 mg 40 mg, Oral, DAILY, First dose on Tue01/31/19 at 2030, Until Discontinued, DO NOT CRUSH OR OPEN If unable to take PO, may give IV, Routine Given 02/05/2019 8:11 AM EDT 40 mg Given 02/04/2019 8:30 AM EDT 40 mg perflutren protein-A microspheres (OPTISON) Given 01/27/2019 3:0 0 PM EDT 2 mLs 0.22 mg/mL injection 2 mL 2 mL, Intravenous, ONCE PRN, 1 dose, Starting on 01/27/19 at 1522, Until 01/27/19 at 1500, PRN, Routine propofol (DIPRIVAN) New Bag 02/01/2019 12:09 AM EDT 50 mcg/kg/min 38.8 mL/hr infusion 0-50 mcg/kg/min ? 129.2 kg (0-38.76 mL/hr, rounded to 0-38.8 mL/hr), Intravenous, CONTINUOUS, Starting on Tue01/31/19 at 2030, Until [place] 02/01/19 at 1514, Titrate to sedation level of RASS Goal (-) 1. Start at 10 mcg/kg/min, adjust rate by 5 mcg/kg/min every 3 minutes. Dose not to exceed 50 mcg/kg/minute. Discontinue upon extubation., Routine Rate/Dose Verify 02/01/2019 12:00 AM EDT 50 mcg/kg/min 38.8 mL/hr Rate/Dose Change 01/31/2019 11:15 PM EDT 50 mcg/kg/min 38.8 mL/hr senna-docusate (PERICOLACE) 8.6-50 mg per Given 2018 8:31 PM EDT 2 tablets tablet 2 tablet 2 tablet, Oral, DAILY, First dose on [place] 02/01/19 at 2100, Until Discontinued, Post-op day 1, Routine Given 02/02/2019 9:30 PM EDT 2 tablets Given 02/01/2019 9:01 PM EDT 2 tablets sodium bicarbonate 8.4 % (1 meq/ml) IV Given 01/31/2019 10:55 PM EDT 50 mEq solution 50 mEq 50 mEq, Intravenous, ONCE, 1 dose, On Tue01/31/19 at 2245, Warning Vesicant/Irritant Medication , Routine sodium bicarbonate 8.4 % (1 meq/ml) IV Given 01/31/2019 10:54 PM EDT 50 mEq solution 50 mEq 50 mEq, Intravenous, ONCE, 1 dose, On Tue01/31/19 at 2245, Warning Vesicant/Irritant Medication , Routine sodium bicarbonate 8.4 % (1 meq/ml) IV Given 02/01/2019 1:10 AM EDT 50 mEq solution 50 mEq 50 mEq, Intravenous, ONCE, 1 dose, On [place] 02/01/19 at 0115, Warning Vesicant/Irritant Medication , Routine sodium chloride 0.9 % (flush) flush 5 mL Given 01/30/2019 9:00 AM EDT 5 mLs 5 mL, Intravenous, 2 TIMES DAILY, First dose on Tue01/26/19 at 2300, Until Discontinued, Routine Given 01/29/2019 9:00 PM EDT 5 mLs Given 01/28/2019 9:16 PM EDT 5 mLs sodium chloride 0.9 % (flush) flush 5 mL Given 01/26/2019 11:16 PM EDT 5 mLs 5 mL, Intravenous, EVERY 12 HOURS, First dose on Tue01/26/19 at 2300, Until Discontinued, Cath (Day of Procedure), Routine sodium chloride 0.9 % (flush) flush 5 mL Given 01/31/2019 9:00 AM EDT 5 mLs 5 mL, Intravenous, 2 TIMES DAILY, First dose on Tue01/26/19 at 2300, Until Discontinued, Routine Given 01/30/2019 9:08 PM EDT 5 mLs Given 01/29/2019 8:12 AM EDT 5 mLs sodium chloride 0.9 % (flush) flush 5 mL Given 02/06/2019 7:30 AM EDT 5 mLs 5 mL, Intravenous, EVERY 8 HOURS, First dose on Tue02/01/19 at 1530, Until Discontinued, Routine Given 02/05/2019 9:00 PM EDT 5 mLs Given 02/05/2019 3:30 PM EDT 5 mLs sodium chloride 0.9% Rate/Dose Verify 02/01/2019 1:00 AM 25 mL/hr 2 5 mL/hr infusion EDT 0-500 mL/hr, Intravenous, CONTINUOUS, Starting on Tue01/31/19 at 2030, Until Tue02/01/19 at 1514, Bolus 250 mL every 5 minutes as needed for volume replacement to maintain cardiac index greater than or equal to 2.0 L/min/M2. Maximum volume 2 L. Call house superintendent for additional fluid orders: pager #[phone]. Rate/Dose Verify 02/01/2019 12:00 AM EDT 25 mL/hr 25 mL/hr Rate/Dose Verify 01/31/2019 11:00 PM EDT 25 mL/hr 25 mL/hr sodium chloride 0.9% Rate/Dose Verify 02/01/2019 6:00 AM 30 mL/hr 3 0 mL/hr infusion EDT 10-30 mL/hr, Intravenous, DAILY PRN, Starting on Tue01/31/19 at 2014, Until Tue02/01/19 at 1514, Side port TKO rate, per [facility] nursing protocol. Rate/Dose Verify 02/01/2019 4:00 AM EDT 30 mL/hr 30 mL/hr Rate/Dose Verify 02/01/2019 2:00 AM EDT 30 mL/hr 30 mL/hr sodium chloride 0.9% Rate/Dose Verify 02/01/2019 6:00 AM 30 mL/hr 3 0 mL/hr infusion EDT 10-30 mL/hr, Intravenous, DAILY PRN, Starting on Tue01/31/19 at 2014, Until Tue02/01/19 at 1514, Side port TKO rate, per CC nrusing protocol. Rate/Dose Verify 02/01/2019 4:00 AM EDT 30 mL/hr 30 mL/hr Rate/Dose Verify 02/01/2019 2:00 AM EDT 30 mL/hr 30 mL/hr spironolactone (ALDACTONE) tablet 50 mg Given 01/31/2019 8:50 AM EDT 50 mg 50 mg, Oral, DAILY, First dose on 01/27/19 at 0900, Until Discontinued, Routine Given 01/30/2019 8:12 AM EDT 50 mg Given 01/29/2019 8:11 AM EDT 50 mg spironolactone (ALDACTONE) tablet 50 mg Given 02/06/2019 8:53 AM EDT 50 mg 50 mg, Oral, DAILY, First dose on 02/03/19 at 1130, Until Discontinued, Routine Given 02/05/2019 8:10 AM EDT 50 mg Given 02/04/2019 8:30 AM EDT 50 mg traZODone (DESYREL) tablet 50 mg Given 01/30/2019 9:00 PM EDT 50 mg 50 mg, Oral, NIGHTLY PRN, Starting on Tue01/26/19 at 2239, Until Tue01/31/19 at 2015, Sleep, Routine Given 01/29/2019 8:53 PM EDT 50 mg Given 01/28/2019 9:11 PM EDT 50 mg documented in this encounter Active and Recently Administered Medications Times are shown in EDT. Scheduled Medication Order 02/04/2019 02/05/2019 02/06/2019 acetaminophen (TYLENOL) tablet 1,000 mg 0058 (Given - Provider: Giles Hawthorne RN)0549 (Given - Provider: Giles Hawthorne, RN)1147 (Given - Provider: Alejandro Connell RN)1748 (Given - Provider: Alejandro Connell RN) 0010 (Given - Provider: Gladis Ogden RN)0532 (Given - Provider: Gladis Ogden RN)1143 (Given - Provider: Jacqueline Zelaya RN)1738 (Given - Provider: Jacqueline Zelaya RN) 0035 (Given - Provider: Gladis cazares RN)0622 (Given - Provider: Gladis Ogden RN)1159 (Given - Provider: Jacqueline Zelaya RN) 1,000 mg, Oral, EVERY 6 HOURS SCHEDULED, First dose on [place] 02/01/19 at 2200, Until Discontinued, Maximum dose of acetaminophen is 4000 mg from all sources in 24 hours., Routine AMIOdarone (CORDARONE; PACERONE) tablet 200 mg 1000 (G iven - Provider: Alejandro Connell RN) 0810 (Given - Provider: Jacqueline Zelaya RN) 0854 (Gi bayron - Provider: Jacqueline Zelaya RN) 200 mg, Oral, DAILY, First dose on Tue at 1000, Until Discontinued, Routine aspirin chewable tablet 81 mg 0830 (Given - Provider: Myra Cintron RN) 0811 (Given - Provider: Jacqueline Zelaya RN) 0854 (Given - Provider: Jacqueline Zelaya RN) 81 mg, Oral, DAILY, First dose on Tue at 2030, Until Discontinued, Start on post-op day 1 in the AM., Routine atorvastatin (LIPITOR) tablet 80 mg 1748 (Given - Prov ider: Alejandro Connell RN) 1625 (Given - Provider: Jacqueline Zelaya RN) 80 mg, Oral, EVERY EVENING, First dose o n Tue01/26/19 at 2315, Until Discontinued, Routine clopidogrel (PLAVIX) tablet 75 mg 0830 (Given - Provider: Juancho Cintron RN) 0811 (Given - Provider: Jacqueline Zelaya RN) 0854 (Given - Provider: Jacqueline Zelaya RN) 75 mg, Oral, DAILY, First dose on Tue at 0900, Until Discontinued, Routine furosemide (LASIX) injection 20 mg (CANCELED) 0834 (Gi bayron - Provider: Myra Cintron, RN)1746 (Given - Provider: Alejandro Connell, RN) 0810 (Given - Provider: Jacqueline Zelaya, JACEY) 20 mg, Intravenous, 2 TIMES DAILY, First dose on Tue02/01/19 at 0900, Until Discontinued furosemide (LASIX) tablet 20 mg 0854 (Given - Provider: Jacqueline Zelaya RN) 20 mg, Oral, DAILY, First dose on 09/26 at 0900, Until Discontinued, Routine gabapentin (NEURONTIN) capsule 300 mg 0830 (Given - Pr ovider: Myra Cintron, RN)1530 (Given - Provider: Alejandro Connell, JACEY)2144 (Given - Provider: Gladis Ogden, JACEY) 0811 (Given - Provider: Jacqueline Zelaya , JACEY)1435 (Given - Provider: Jacqueline Zelaya, JACEY)210 (Given - Provider: Gladis Ogden, JACEY) 0854 (Given - Provider: Jacqueline Zelaya RN) 300 mg, Oral, 3 TIMES DAILY, First dose on Tue02/01/19 at 1500, Until Discontinued, Routine insulin glargine VIAL injection 50 Units 2145 (Given - Provider: Gladis Ogden, JACEY) 2109 (Given - Provider: Gladis Ogden, JACEY) 50 Units, Subcutaneous, NIGHTLY, First d ose on Tue02/02/19 at 2100, Until Discontinued, Routine insulin lispro (HumaLOG) VIAL injection 0-12 Units (CA NCELED) 0836 (Given - Provider: Myra Cintron, JACEY)1226 (Given - Provider: Alejandro Connell, RN)1741 (Given - Provider: Alejandro Connell, RN) 0813 (Given - Provider: Jacqueline Zelaya, JACEY) 0-12 Units, Subcutaneous, 3 TIMES DAILY WITH MEALS, First dose on Tue02/02/19 at 1700, Until Discontinued, MEAL ASSOCIATED 1 unit of insulin for every 7 grams of carbohydrates Hold if not eating or if BG < 80, Routine insulin lispro (HumaLOG) VIAL injection 0-12 Units(Linked Gr oup 1) 1145 (Given - Provider: Jacqueline Zelaya RN)1623 (Given - Provider: Jacqueline Zelaya RN)2007 (Given - Provider: Gladis Ogden, JACEY) 0000 (Not Given - Provider: Gladis Ogden RN - Reason: Order parameters not met)0400 (Not Given - Provider: Gladis Ogden RN - Reason: Order parameters not met)0857 (Given - Provider: Jacqueline Zelaya RN) 0-12 Units, Subcutaneous, EVERY 4 HOURS SCHEDULED, First dose on Tue02/05/19 at 1200, Until Discontinued, Correction Factor 10 BG 140 - 160 Give 2 units BG 161 - 180 Give 4 units BG 181 - 200 Give 6 unit 1200 (Given - Provider: Jacqueline Zelaya RN) s BG 201 - 220 Give 8 units BG 221 - 240 Give 10 units BG greater than 240, give 12 units and recheck BG in 2 hours. If BG remains greater than 240, GIVE 12 units (no more than TWO times) & call for new basal insulin orders. If less than 240 after two hours, give no insulin and resume prior schedule. DO NOT hold if NPO, unless specifically told to do so., Routine insulin lispro (HumaLOG) VIAL injection 0-15 Units 1238 (Given - Provider: Jacqueline Zelaya RN)1738 (Given - Provider: Jacqueline Zelaya RN) 0858 (Given - Provider: Jacqueline Zelaya RN)1242 (Given - Provider: Jacqueline Zelaya RN) 0-15 Units, Subcutaneous, 3 TIMES DAILY WITH MEALS, First dose on Tue02/05/19 at 1200, Until Discontinued, MEAL ASSOCIATED 1 unit of insulin for every 5 grams of carbohydrates Hold if not eating or if BG < 80, Routine insulin regular human (HumuLIN;NovoLIN) 1unit/mL in sodium chloride 0.9% infusion (CANCELED) 0022 (Rate/Dose Change - Provider: Adriano Hawthorne RN)0105 (Rate/Dose Change - Provider: Giles Hawthorne RN)0220 (Rate/Dose Change - Provider: Giles Hawthorne RN)0653 (Rate/Dose Change - Provider: Giles Hawthorne RN) 0010 (Rate/Dose Change - Provider: Tracy Ogden RN)0110 (Rate/Dose Change - Provider: Gladis Ogden RN)0210 (Paused - Provider: Gladis Ogden RN)0713 (Restarted - Provider: Gladis Ogden RN) 0.5-16 Units/hr (0.5-16 mL/hr), Intraven ous, at 0.5-16 mL/hr, CHANGE BAG EVERY EVENING, First dose on Tue01/31/19 at 2030, Until Discontinued, Type 2 diabetes. Current blood glucose 140 - 179 Titration- 0919 (Rate/Dose Change - Provider: Alejandro Connell RN)1009 (Rate/Dose Change - Provider: Jocelyn Rutledge RN)1015 (New Bag - Provider: Alejandro Connell RN)1102 (Rate/Dose Change - Provider: Alejandro Connell RN) 0808 (Rate/Dose Change - Provider: Amy Zelaya RN)0900 (Rate/Dose Change - Provider: Jacqueline Zelaya RN)0924 (Rate/Dose Change - Provider: Jacqueline Zelaya RN)1038 (Rate/Dose Change - Provider: Jacqueline Zelaya RN) aim for target range of 140 - 180 mg/dL . Check BG every hour unless otherwise indicated. [[ No initial bolus. Begin continuous infusion at 2 units/hour. ]] If BG at the time the infusion is started out 1224 (Rate/Dose Change - Provider: Alejandro Connell RN)1309 (Rate/Dose Change - Provider: Alejandro Connell RN)1800 (Continued Bag - Provider: Alejandro Connell RN)2000 (Rate/Dose Verify - Provider: Gladis Ogden RN) 1107 (Rate/Dose Verify - Provider: Amy Zelaya RN) side of the CURRENT BLOOD GLUCOSE range above, contact MD for new starting rate/bolus order. When infusion is paused, turn it back on as soon as possible per protocol. If BG at the time the infusion is 2135 (Rate/Dose Change - Provider: Gladis Ogden RN)2200 (Rate/Dose Verify - Provider: Gladis Ogden RN)2215 (Rate/Dose Change - Provider: Gladis Ogden RN)2315 (Rate/Dose Change - Provider: Gladis Ogden RN) started is outside of the CURRENT BLOOD GLUCOSE range above, contact provider for new starting rate/bolus order. Current BG less than 80 - Stop insulin. If BG less than 70, treat per hypoglycemia pro tocol. Re-check BG in 30 minutes and as soon as BG is greater than 80, restart with rate 50% of previous rate. If infusion stopped after previous rate had been 0.5 unit/hour, recheck every hour and wh en BG greater than 100 and higher than l ast test restart at 0.5 unit/hour. IF INFUSION IS PAUSED, TURN IT BACK ON SOON POSSIBLE, PER PROTOCOL. Current BG 80 - 139 - If BG dropped 10 mg/dL or mo re since last test, decrease rate by 50% and re-check in 30 minutes. Otherwise, decrease rate by 0.5 units/hour. Current BG 140 - 180 - If BG dropped 50 mg/dL or more since last test, decrease rate b y 1 unit/hour. Otherwise, maintain same rate. Current BG 181 - 220 - If BG is lower than last test, maintain same rate. Otherwise, increase rate by 0.5 units/hour. Current BG 221 - 250 - If BG glenn pped 30 mg/dL or more since last test, m aintain same rate. Otherwise, increase rate by 1 unit/hour. Current BG greater than 250 - Increase rate by 1 unit/hour AND bolus with Regular insulin IV as per IV Bolus Scale. Re-check BG in 30 minut es. THE FIRST DOSE OF SC INSULIN OUGHT TO BE ADMINISTERED BEFORE DISCONTINUING THE INFUSION. AN OVERLAP OF 2-3 HOURS IS RECOMMENDED. Continue to monitor the BG hourly., Routine magnesium hydroxide (Milk of Magnesia) (240 mg/mL) ora l liquid 10 mL 0830 (Given - Provider: Myra Cintron, RN) 0900 (Not Given - Provider: Jacqueline ordaz RN - Reason: Patient/family refused) 0900 (Not Given - Provider: Jacqueline Zelaya RN - Reason: Patient/family refused) 10 mL, Oral, DAILY, First dose on Tue at 0900, Until Discontinued, Post- op day 2. Do not use with renal insufficiency., Routine metoprolol (LOPRESSOR) tablet 12.5 mg 0830 (Given - Pr ovider: Myra Cintron, RN)2143 (Given - Provider: Gladis Ogden RN) 08 (Given - Provider: Jacqueline Zelaya RN)2106 (Given - Provider: Gladis Ogden RN) 0854 (Given - Provider: Jacqueline Zelaya RN) 12.5 mg, Oral, EVERY 12 HOURS SCHEDULED (2 times per day), First dose on Tue02/01/19 at 2100, Until Discontinued, Please hold for hr <50, sbp <90, Routine miconazole (MICOTIN) 2 % powder 0838 (Given - Provider : Myra Cintron, RN)2147 (Given - Provider: Gladis Ogden RN) 09 (Given - Provider: Jacqueline Zelaya RN)2099 (Not Given - Provider: Gladis Ogden RN - Reason: Patient/family refused) 0900 (Given - Provider: Jacqueline Zelaya RN) Topical (Top), 2 TIMES DAILY, First dose on Tue02/01/19 at 2100 pantoprazole (PROTONIX) injection 40 mg(Linked Group 2 ) 0830 (See Alternative - Provider: Myra Cintron RN) 0811 (See Alternative - Provider: Rashad Zelaya RN) 0853 (See Alternative - Provider: Rashad Zelaay RN) 40 mg, Intravenous, DAILY, First dose on Tue01/31/19 at 2030, Until Discontinued, Reconstitute with 10 mL of normal saline to a concentration of 4 mg/mL and infuse slowly over 2 minutes. , Routine pantoprazole (PROTONIX) tablet 40 mg(Linked Group 2) 0 830 (Given - Provider: Myra Cintron RN) 0811 (Given - Provider: Jacqueline Zelaya RN) 0853 (Gi bayron - Provider: Jacqueline Zelaya RN) 40 mg, Oral, DAILY, First dose on Tue at 2030, Until Discontinued, DO NOT CRUSH OR OPEN If unable to take PO, may give IV, Routine senna-docusate (PERICOLACE) 8.6-50 mg per tablet 2 tab let 2100 (Not Given - Provider: Gladis Ogden RN - Reason: Patient/family refused) 2100 (Not Given - Provider: Gladis Ogden RN - Reason: Patient/family refused) 2 tablet, Oral, DAILY, First dose on 02/01/19 at 2100, Until Discontinued, Post-op day 1, Routine sodium chloride 0.9 % (flush) flush 5 mL 0058 (Given - Provider: Giles Hawthorne, JACEY)0830 (Given - Provider: Myra Cintron, RN)1530 (Given - Provider: Alejandro Connell, RN)2000 (Given - Provider: Gladis Ogden, RN) 0730 (Given - Provider: Jacqueline Zelaya RN)1530 (Given - Provider: Jacqueline Zelaya RN)2100 (Given - Provider: Gladis Ogden, RN) 0730 (Given - Provider: Jacqueline Zelaya, RN) 5 mL, Intravenous, EVERY 8 HOURS, First dose on [place] 02/01/19 at 1530, Until Discontinued, Routine spironolactone (ALDACTONE) tablet 50 mg 0830 (Given - Provider: Myra Cintron RN) 0810 (Given - Provider: Jacqueline Zelaya, JACEY) 0853 (Gi bayron - Provider: Jacqueline Zelaya RN) 50 mg, Oral, DAILY, First dose on Sat at 1130, Until Discontinued, Routine Continuous Medication Order 02/04/2019 02/05/2019 02/06/2019 AMIOdarone (CORDARONE) 360 mg in dextrose 5% 200 mL in fusion () 0233 (Stopped - Provider: Giles Hawthorne RN)0245 (Restarted - Provider: Giles Hawthorne RN)1100 (Stopped - Provider: Alejandro Connell, RN) 1 mg/min (33.3333 mL/hr, rounded to 33.3 mL/hr), at 33.3 mL/hr, Intravenous, CONTINUOUS, Starting 02/03/19 at 0200, Until 02/04/19 at 1100, 1mg/min for 6hrs, then 0.5mg/min for 18hrs. After first 24hours, order maintenance dose 0.5 mg/min. Use in-line filter. PRN Medication Order 02/04/2019 02/05/2019 02/06/2019 bisacodyl (DULCOLAX) suppository 10 mg 10 mg, Rectal, DAILY PRN, Starting Sat at 0000, Until Tue02/06/19 at 1630, Constipation, Starting post-op day 3., Routine dextrose 50% intravenous solution 25-50 mL(Linked Group 3) 25-50 mL (12.5-25 g), Intravenous, EVERY 1 HOUR PRN, Starting Tue02/05/19 at 1124, Until Tue02/06/19 at 1630, Low blood sugar, For BG 50-70 mg/dL: Oral treatment preferred:?? If able to drink, give 120 mL Juice or Regular (not diet) soda OR If NPO, give 15 gram glucose 40% oral gel massaged into buccal mucosa OR if unconscious or uncooperative, give 12.5 gram (25 mL) Dextrose 50% IV OR, if no IV acce ss, give 1 mg Glucagon IM. For BG les s than 50 mg/dL: Oral treatment preferred:?? If able to drink, give 240 mL Juice or Regular (not diet) soda OR If NPO, give 30 gram glucose 40% oral gel massaged in buccal mucosa OR if unconscious or un cooperative, give 25 gram (50 mL) Dextrose 50% IV OR, if no IV access, give 1 mg Glucagon IM. Recheck BG in 30 minutes. May repeat juice, gel, dextrose or gluca bang once per episode. To avoid extrava sation, push Dextrose 50% SLOWLY (3 mL over 1 minute) in a patent, running IV, preferably a central line. For persistent hypoglycemia, consider longer-acting t reatment for the duration of the active insulin., Routine glucagon (human recombinant) injection SolR 1 mg(Linked Group 3) 1 mg, Intramuscular, EVERY 1 HOUR PRN, S tarting Tue02/05/19 at 1124, Until Tue02/06/19 at 1630, Low blood sugar, For BG 50-70 mg/dL: Oral treatment preferred:?? If able to drink, give 120 mL Juice or R egular (not diet) soda OR If NPO, give 1 5 gram glucose 40% oral gel massaged into buccal mucosa OR if unconscious or uncooperative, give 12.5 gram (25 mL) Dextrose 50% IV OR, if no IV access, give 1 mg Glucagon IM. For BG less than 50 mg/d L: Oral treatment preferred:?? If able to drink, give 240 mL Juice or Regular (not diet) soda OR If NPO, give 30 gram glucose 40% oral gel massaged in buccal muco sa OR if unconscious or uncooperative, g kimberly 25 gram (50 mL) Dextrose 50% IV OR, if no IV access, give 1 mg Glucagon IM. Recheck BG in 30 minutes. May repeat juice, gel, dextrose or glucagon once per e pisode. To avoid extravasation, push D extrose 50% SLOWLY (3 mL over 1 minute) in a patent, running IV, preferably a central line. For persistent hypoglycemia, consider longer-acting treatment for the duration of the active insulin., Routine glucose (GLUTOSE) 40% oral gel(Linked Group 3) 15-30 g, Buccal, EVERY 30 MIN PRN, Start ing Tue02/05/19 at 1124, Until Tue02/06/19 at 1630, Low blood sugar, For BG 50-70 mg/dL: Oral treatment preferred:?? If able to drink, give 120 mL Juice or Regul ar (not diet) soda OR If NPO, give 15 gr am glucose 40% oral gel massaged into buccal mucosa OR if unconscious or uncooperative, give 12.5 gram (25 mL) Dextrose 50% IV OR, if no IV access, give 1 mg Gluc agon IM. For BG less than 50 mg/dL: O ral treatment preferred:?? If able to drink, give 240 mL Juice or Regular (not diet) soda OR If NPO, give 30 gram glucose 40% oral gel massaged in buccal mucosa O R if unconscious or uncooperative, give 25 gram (50 mL) Dextrose 50% IV OR, if no IV access, give 1 mg Glucagon IM. Recheck BG in 30 minutes. May repeat juice, gel, dextrose or glucagon once per episo de. To avoid extravasation, push Dextr ose 50% SLOWLY (3 mL over 1 minute) in a patent, running IV, preferably a central line. For persistent hypoglycemia, consider longer-acting treatment for the d uration of the active insulin. 1 tube co ntains 15 grams of glucose (net weight of tube = 37.5 grams., Routine insulin regular human (HumuLIN;NovoLIN) 1 unit/mL in sodium chloride 0.9% BOLUS 0-16 Units (CANCELED) 0918 (Bolus from Bag - Provider: Alejandro Connell, RN)1010 (Bolus from Bag - Provider: Jocelyn Rutledge, RN)1309 (Bolus from Bag - Provider: Alejandro Connell, RN) 0925 (Bolus from Bag - Provider: Genie Zelaya, RN)1015 (Bolus from Bag - Provider: Jacqueline Zelaya, RN)1039 (Bolus from Bag - Provider: Jacqueline Zelaya, RN) 0-16 Units, Intravenous, PER INSULIN PRO TOCOL, Starting Tue01/31/19 at 2013, Until Tue02/05/19 at 1124, Per Protocol, BOLUS order. Type 2 No Initial bolus. Adjustment bolus per insulin infusion protocol: IV insulin Bolus scale: For BG in mg /dL (250-299 = 8 units, 300-359 = 12 units, greater than 360 = 16 units), Routine ondansetron (ZOFRAN) injection 4 mg 4 mg, Intravenous, EVERY 8 HOURS PRN, St arting Tue01/31/19 at 2013, Until Tue02/06/19 at 1630, Nausea oxyCODONE (ROXICODONE) immediate release tablet 5-15 m g 1627 (Given - Provider: Alejandro Connell, RN)2215 (Given - Provider: Gladis Ogden, RN) 2107 (Given - Provider: Gladis Ogden, JACEY) 5-15 mg, Oral, EVERY 4 HOURS PRN, Starti ng [facility] 02/01/19 at 0836, Until Tue02/06/19 at 1630, Pain, Give 5 mg 1 tab PO Q 4 hours PRN for pain >/= to 3-5/10. Give 10 mg 2 tabs PO Q 4 hours PRN for pain &g t;/= to 6-8/10. Give 15 mg 3 tabs PO Q 4 hours PRN for pain >/= to 9-10/10. Call provider for new pain management orders if pain not relieved after an appropriate amount of time or if regimen is not tolerated. Hold if patient appears over sedated., Routine Linked Groups Order Group 1: POCT Fingerstick Glucose (CANCELED) Routine, EVERY 4 HOURS, First occurrence on Tue02/05/19 at 1200, Until Specified
Consider choosing EVERY 4 HOURS as frequency for: - Type 1 Diabetes - At least 24 hours after coming off an insul in drip - At least 24 hours after admiss ion for DKA - Hypoglycemia unawareness - Patients who are otherwise unstable Select the same frequency for the correction bolus insulin order And insulin lispro (HumaLOG) VIAL injection 0-12 UnitsJump to med 0-12 Units, Subcutaneous, EVERY 4 HOURS SCHEDULED, First dose on Tue02/05/19 at 1200, Until Discontinued
Correction Factor 10 BG 140 - 160 Give 2 units BG 161 - 180 Give 4 uni ts BG 181 - 200 Give 6 units &nbsp ;BG 201 - 220 Give 8 units BG 221 - 240 Give 10 units BG greater than 240, give 12 units and recheck BG in 2 hours. If BG remains greate r than 240, GIVE 12 units (no more than TWO times) & call for new basal insulin orders. If less than 240 after two hours, give no insulin and resume prior schedule. DO NOT hold if NPO, unless specifically told to do so.
Routine Group 2: pantoprazole (PROTONIX) tablet 40 mgJump to med 40 mg, Oral, DAILY, First dose on Tue at 2030, Until Discontinued
DO NOT CRUSH OR OPEN If unable to take PO, may give IV
Routine Or pantoprazole (PROTONIX) injection 40 mgJump to med 40 mg, Intravenous, DAILY, First dose on Tue01/31/19 at 2030, Until Discontinued
Reconstitute with 10 mL of normal saline to a concentration of 4 mg/mL and infuse slowly over 2 minutes.
Routine Group 3: glucose (GLUTOSE) 40% oral gelJump to med 15-30 g, Buccal, EVERY 30 MIN PRN, Start ing Tue02/05/19 at 1124, Until Tue02/06/19 at 1630, Low blood sugar
For BG 50-70 mg/dL: Oral treatment preferred:?? If able to drink, give 120 mL Juice or Regular (not diet) soda OR If NPO, gi ve 15 gram glucose 40% oral gel massaged into buccal mucosa OR if unconscious or uncooperative, give 12.5 gram (25 mL) Dextrose 50% IV OR, if no IV access, give 1 mg Glucagon IM. For BG less th an 50 mg/dL: Oral treatment preferred:?? If able to drink, give 240 mL Juice or Regular (not diet) soda OR If NPO, give 30 gram glucose 40% oral gel massaged in buccal mucosa OR if unconscious or un cooperative, give 25 gram (50 mL) Dextrose 50% IV OR, if no IV access, give 1 mg Glucagon IM. Recheck BG in 30 minutes. May repeat juice, gel, dextrose or glucagon once per episode. T o avoid extravasation, push Dextrose 50% SLOWLY (3 mL over 1 minute) in a patent, running IV, preferably a central line. For persistent hypoglyce araseli, consider longer-acting treatment fo r the duration of the active insulin. 1 tube contains 15 grams of glucose (net weight of tube = 37.5 grams.
Routine Or dextrose 50% intravenous solution 25-50 mLJump to med 25-50 mL (12.5-25 g), Intravenous, EVERY 1 HOUR PRN, Starting Tue02/05/19 at 1124, Until Tue02/06/19 at 1630, Low blood sugar
For BG 50-70 mg/dL: Oral treatment preferred:?? If able to drink, give 120 mL Juice or Regular (not diet) soda OR If NPO, give 15 gram glucose 40% oral gel massaged into buccal mucosa OR if unconscious or uncooperative, give 12.5 gram (25 mL) Dextrose 50% IV OR, if no IV access, give 1 mg Glucagon IM. &nbsp ; For BG less than 50 mg/dL: Oral treatment preferred:?? If able to drink, give 240 mL Juice or Regular (not diet) soda OR If NPO, give 30 gram glucose 40% oral gel massaged in buccal mucosa OR if unconscious or uncooperative, give 25 gram (50 mL) Dextrose 50% IV OR, if no IV access, give 1 mg Glucagon IM. Recheck BG in 30 minutes. May repeat ju ice, gel, dextrose or glucagon once per episode. To avoid extravasation, push Dextrose 50% SLOWLY (3 mL over 1 minute) in a patent, running IV, preferably a central line. For pe rsistent hypoglycemia, consider longer-a cting treatment for the duration of the active insulin.
Routine Or glucagon (human recombinant) injection SolR 1 mgJump to med 1 mg, Intramuscular, EVERY 1 HOUR PRN, S tarting 02/05/19 at 1124, Until Tu02/06/19 at 1630, Low blood sugar
For BG 50-70 mg/dL: Oral treatment preferred:?? If able to drink, give 120 mL Ju ice or Regular (not diet) soda OR If NPO , give 15 gram glucose 40% oral gel massaged into buccal mucosa OR if unconscious or uncooperative, give 12.5 gram (25 mL) Dextrose 50% IV OR, if no IV access, gi ve 1 mg Glucagon IM. For BG les s than 50 mg/dL: Oral treatment preferred:?? If able to drink, give 240 mL Juice or Regular (not diet) soda OR If NPO, give 30 gram glucose 40% oral gel massa ged in buccal mucosa OR if unconscious o r uncooperative, give 25 gram (50 mL) Dextrose 50% IV OR, if no IV access, give 1 mg Glucagon IM. Recheck BG in 30 minutes. May repeat juice, gel, dext shaniqua or glucagon once per episode. &nbsp ;To avoid extravasation, push Dextrose 50% SLOWLY (3 mL over 1 minute) in a patent, running IV, preferably a central line. For persistent hypog lycemia, consider longer-acting treatmen t for the duration of the active insulin.
Routine documented in this encounter Care Teams Mock Up Assembler Relationship Specialty Start Date End Date Taye Ron MD PCP - General Family Medicine 11/04/16 [address] [place] [id number] documented as of this encounter
--- OUTSIDE RECORDS SUMMARY | 2022-04-26 10:02 | XMS_ITS | Encounter Summary ---
:1950 Author Organization [facility] Address [facility] [place] [address] Care Team Providers Name Role Phone Taye Ron MD Primary Care Provider Encounter Details Date Type Department Care Team Description 01/27/2019 Notes Only Cardiology at [facility] [place] Rebekah Del Rosario MD [facility] [place] [phone] CARDIOLOGY DEPT [phone] [place], [place] [address] (Wo rk) Social History Tobacco Use Types Packs/Day Years Used Date Former Smoker Cigarettes Quit: 01/11/19 99 Smokeless Tobacco: Never Used Alcohol Use Standard Drinks/Week Comments Not Currently 0 (1 standard drink = 0.6 oz pure alcoho l) Sex Assigned at Date Recorded Not on file documented as of this encounter Progress Notes Rebekah Del Rosario MD - 01/27/2019 12:34 PM EDT Letter sent to referring finishing inspector, Dr Lambert. documented in this encounter Plan of Treatment Upcoming Encounters Date Type Specialty Care Team Description 04/27/2022 Tech Visit Vascular Surgery Anais Singh 04/27/2022 Office Visit Vascular Surgery Sulema Fajardo MD [facility] VASCULAR [place], [place] [address] (Wo rk) 05/18/2022 Office Visit Dermatology Alejandro Reese MD [address] [place] [address] DERMATOLOGY [place], [place] [address] (Wo rk) documented as of this encounter Visit Diagnoses Not on filedocumented in this encounter Care Teams Motion Picture Camera Lens Technician Relationship Specialty Start Date End Date Taye Ron MD PCP - General Family Medicine 11/04/16 [address] [place] [id number] documented as of this encounter
--- OUTSIDE RECORDS SUMMARY | 2022-04-26 10:02 | XMS_ITS | Encounter Summary ---
:1950 Author Organization [facility] Address [facility] [place] [address] Care Team Providers Name Role Phone Taye Ron MD Primary Care Provider Reason for Visit Auth/Cert Specialty Diagnoses / Procedures Referred By Contact Refer red To Contact Diagnoses NSTEMI (non-ST elevated myocardial infarction) NSTEMI Referral ID Status Reason Start Date Expiration Date Visits Requ ested Visits Authorized [id number] 1 1 Encounter Details Date Type Department Care Team Description 01/31/2019 Surgery Main Operating Room Trip Corona, @CABG, TWO VENOUS Shannan To MD GRAFTS & ARTERIAL GRAFT Hospital [facility] (WRVU 7.93) [facility] [place] [address] SURGERY [phone] [place], [place] [address] (Wo rk) Social History Tobacco [...] Sign Reading Time Taken Comments Blood Pressure 124/64 01/31/2019 12:04 PM EDT Pulse 65 01/31/2019 12:04 PM EDT Temperature 36.9 ??C (98.4 ??F) 01/31/2019 12:04 PM EDT Respiratory Rate 17 01/31/2019 4:01 AM EDT Oxygen Saturation 98% 01/31/2019 12:04 PM EDT Inhaled Oxygen Concentration - - Weight 129.2 kg (284 lb 13.4 oz) 01/31/2019 6:06 AM EDT Height 167.6 cm (5' 6) 01/26/2019 9:16 PM EDT Body Mass Index 46.97 01/26/2019 9:16 PM EDT documented in this encounter Discharge Summaries Neli Cameron PA - 02/06/2019 12:44 PM EDT Inpatient - Discharge Summary Patient Name: Connor Gan Patient Age: 68 y.o. Birthdate: 1950 Language: Polish Race: White Ethnicity: Not nor Admit Date: 01/26/2019 Discharge Date: 02/06/19 Attending Physician: Trip Corona MD Follow-up Recommendations for Providers: Please continue routine management of cardiovascular risk factors including blood pressure, lipids, glucose, etc. Please note any changes to medications. Patient to follow-up with PCP, Taye Ron MD, in 1-2 weeks. Patient to follow-up with Manager Decision Support, Dr. Boris Lambert, in 2 weeks. Patient to follow-up with Cardiac Surgery, Dr. Trip Coorna, in ~ 4 weeks with CXR, EKG. Inpatient Provider Contact Information: [facility] Section of Cardiac Surgery [facility] [address] FAX [phone] Discharge Diagnoses (Hospital Problems) Primary Diagnoses: 01/31/19 [...] (WRVU 33.75) performed by Trip Corona MDat [facility] MAIN OR ??? PRO CABG, ARTERY-VEIN, TWO N/A 01/31/2019 @CABG, TWO VENOUS GRAFTS & ARTERIAL GRAFT (WRVU 7.93) performed by Trip Corona MD at [facility] MAIN OR ??? PRO ENDOSCOPY W/VIDEO-ASST VEIN HARVEST, CABG Right 01/31/2019 ENDOSCOPIC HARVEST VEIN(S) FOR CABG (WRVU 0.31) performed by Trip Corona MD at [facility] MAIN OR Prior To Admission Medications Medications [...] times daily. 01/26/2019 at Unknown time ??? Intervale-3 Fatty Acids (FISH OIL) 500 mg Cap [...] Unknown time ??? blood sugar diagnostic strips (BettingXpert ULTRA TEST) Strip Use to test blood [...] ( 3VD-managed medically-[facility]), DM-2(Insulin dependent), HTN, HLD, ICM(LVEF-45%20560) improved from 25%(2017) and Psoriasis transferred from [facility] for crescendo symptoms of anginawith elevated troponins for further [...] worsening shortness of breath. On arrival to [facility] ER he denies having any chest pain , EKG without any acute abnormality but his troponins were elevated. Because of his classical symptoms of angina and troponin elevation loaded with plavix, started on heparin and transferred to [facility] for further evaluation. ?? He denies any recent fever, chills , rigors , sick contacts, long distance travel,PND or Orthopnea. His weight has increased few pounds but denies any lower extremity edema. He has been having claudication pain with exertion. Major Procedures/Operations: 01/31/19 s/p CABG X 3 Hospital Course: 01/31/19 s/p CABG X 3 Connor Gan was admitted to [facility] on 01/26/2019 via the Cardiology Service. [...] appropriately. Plavix was started for burden of [place] coronary disease. Statin therapy was started. He [...] discharge plan at this time is to [facility] rehab. The remainder of the his hospital [...] mg Refills: 0 blood sugar diagnostic strips Strp Commonly known as: Vaughn BurtonUCH ULTRA TEST Use to test blood sugar [...] at Discharge: General Instructions Dr. Workman in [facility] is the airplane woodworker for follow up Insulin Discharge Instructions Resume [...] Trip Corona and/or the Cardiac Surgery Physician Risk Control Analyst Team may be reached at . Weight: [...] Dr. Trip Corona. You may use a [place] Track or treadmill but avoid any pulling [...] friends, go to a movie, go to yarsani, etc. Heavy activities: No hunting, skiing, jogging, snow shoveling, snowmobiling, lawn mowing, swimming, golf or tennis until after your return appointment with the surgeon. Do not ride motorcycles, food.de's tractors or horses. Avoid the use of [...] should resume a low fat, low cholesterol, [place] Heart [employer] Diet/Diabetic diet. Driving: No driving [...] office will schedule an appointment with your Manager Decision Support, Dr. Boris Lambert MD, in 2 weeks. Our office will schedule an appointment with your Cardiac Surgeon, Dr. Trip Corona, in ~ 4 weeks with chest x-ray, EKG before your appointment. Cardiac Rehabilitation: [facility]ARDIAC [facility]ILITATION ?? Connor Gan was seen today regarding participation in the outpatient Phase 2 Cardiac Rehabilitation at [facility]. The patient agrees to a referral to this program. The referral will be sent at discharge and the patient should be contacted by the Program within 1- 2 weeks from discharge. Future Appointments and Orders Future Appointments and Orders Future Appointments Provider Department Dept Phone 03/19/2019 11:30 AM Alejandro Reese MD Dermatology at [place] Arrive at: [facility] [address] [phone] Future Orders Complete By Expires EKG 12 Lead [70276 CPT(R)] 02/06/2019 (Approximate) 02/07/2020 Process Instructions: Scheduling Instructions: Questions: Which location will this be performed?: [place] Is a rhythm strip needed?: No XR Chest PA & Lateral (Generic) [32528 74100 Custom] 02/06/2019 (Approximate) 02/07/2020 Process Instructions: Scheduling Instructions: Questions: Where will study be performed?: [facility] Radiology Portable exam?: Reason for exam and clinical history: Please evaluate for interval changes/PTX/effusions - s/p CABGX 3 Other pertinent information: Stat read required?: Date of injury if applicable: Requested Time: Referral to Cardiac Rehab [ZTX066 Custom] As directed Process Instructions: If no progress note charted, please enter Clinical details in comments. Scheduling Instructions: Questions: My question or request is: CABG- CR at [facility] Arrangements for VNA/home care: As above. VN RN OR PCP CHEST TUBE SUTURES & [place] WILL BE REMOVED AT ~[address]LLOW UP WITH DR. CORONA. Signed: DO Mcdonnell [facility] Section of Cardiac Surgery [facility] [address] FAX [phone] Date: 02/06/2019 CC: MD Emiliano SteineryLuis Felipe MD [address] [place] [address] [place] [address] documented in this encounter Discharge Instructions Discharge InstructionsMotnserrat Flores, PLATING DEPARTMENT HELPER - 02/06/2019 9:[address] Workman in [facility] is the airplane woodworker for follow up Insulin Discharge Instructions Resume [...] to have your insulin doses adjusted. Patient InstructionsNguykeith, Neli Mccracken, DO - 02/06/2019 1:08 PM EDT Discharge Instructions: Call your doctor if: You have a fever of greater than 101 degrees, shaking chills, if you develop redness or drainage from your incision sites, or if you have questions. Please call your surgeon's office if you have any discharge or drainage from your chest incision. Your surgeon, Dr. Trip Corona and/or the Cardiac Surgery Physician Risk Control Analyst Team may be reached at . Weight: [...] Dr. Trip Corona. You may use a [place] Track or treadmill but avoid any pulling [...] friends, go to a movie, go to yarsani, etc. Heavy activities: No hunting, skiing, jogging, snow shoveling, snowmobiling, lawn mowing, swimming, golf or tennis until after your return appointment with the surgeon. Do not ride motorcycles, food.de's tractors or horses. Avoid the use of [...] should resume a low fat, low cholesterol, [place] Heart [employer] Diet/Diabetic diet. Driving: No driving [...] office will schedule an appointment with your Manager Decision Support, Dr. Boris Lambert MD, in 2 weeks. Our office will schedule an appointment with your Cardiac Surgeon, Dr. Trip Corona, in ~ 4 weeks with chest x-ray, EKG before your appointment. Cardiac Rehabilitation: [facility]ATION ?? Connor Gan was seen today regarding participation in the outpatient Phase 2 Cardiac Rehabilitation at [facility]. The patient agrees to a referral [...] test blood 400 each 3 2014 strips (Vaughn BurtonUCH ULTRA sugar 4 times daily, TEST) Strip diag code E11.9 Intervale-3 Fatty Acids Take by mouth. 0 (FISH [...] pt and ex . Report called to [facility] tooler [place]. Pt went in private car to rehab. Myra Verma - 02/06/2019 2:06 PM EDT Office of Care Management/Systems Architecture Analyst Patient Name: Connor Gan : 1950 Patient has been offered a snf bed at [facility] Pts to transport pt to facility. No MD to MD report necessary Please call Nursing Report to [phone], ask for frame trimmer. Info to accompany patient: Narcotic Prescriptions Copies of Medication Administration Records and IV sheets for past 10 days. Plan: Systems Architecture Analyst will be available to the patient and Authors Motivational-RN and/or Swimming Professor for further assistance. Patient will be discharged to: [facility] [place] [id number] Myra Verma Systems Architecture Analyst Zehra Akhtar RN - 02/06/2019 12:10 PM EDT An Important Message From Medicare about Your Rights letter reviewed with pt and pt signed acknowledgment and was provided copy Zehra Akhtar RN - 02/06/2019 11:04 AM EDT Images from the original note were not included. Patient is medically ready for discharge today. Patient accepted bed offer at: [facility] Address [address] [place], [place] [id number] RN please call nursing report to: Transportation: [...] your insulin doses adjusted. Montserrat Flores APRN [facility] Endocrinology Diabetes Management Pager [phone] 20 minutes of this 35 minute visit was spent with the patient in counseling on diabetes and treatment plan, reviewing all glucose and insulin data as well as relevant laboratory results with the patient, and coordination of care on the inpatient unit including nursing and primary team. Neli Cameron PA - 02/06/2019 8:06 AM EDT Cardiac Surgery Progress Note: ID: [id number] Mr. Gan 6 Days Post-Op s/p CABG [...] work of breathing on room air; Pulling 2217-0564 mL on incentive spirometer. Heart: RRR, SR [...] 75 mg qd for diffuse burden of [place] coronary disease Endo: Endocrinology recommendations for home regimen pending Other: - Discussed Humira/adalimumab with Derm - Hold Humira for post-operative wound healing. If he needs to defer the immunosuppressant past 1-2 weeks, he will have to return to his meter/relay technician for a reloading dose. D/W patient, he expresses understanding and is agreeable to plan. - Rheumatology outpatient referral recommended by Fellow; Rheum expressed similar concerns regardingwound healing while on immunotherapy. Patient informed. Dispo: Floor, full code. Pending rehab placement DW Attending Surgeon on rounds. DO Mcdonnell 02/06/19 Cardiac Surgery Pager [phone] Neli Cameron PA - 02/05/2019 11:55 AM EDT Cardiac Surgery Progress Note: ID: [id number] Mr. Gan 5 Days Post-Op s/p CABG [...] bandage Tubes/Lines/Drains: PIVs LABS: Recent Labs 02/03/19 022 WBC 18.2* HGB 9.7* HCT 29.3* PLATELET [...] he will have to return to his meter/relay technician for a reloading dose. - Rheumatology outpatient [...] 75 mg qd for diffuse burden of [place] coronary disease Endo: maintain on insulin gtt, lantus 50U qhs; appreciate Endocrinology recommendations Dispo: Floor, full code. Needs rehab at d/c DW Attending Surgeon on rounds. An DO Amaya 02/05/19 Cardiac Surgery Pager [phone] Adi Patel PA - 02/04/2019 10:37 AM EDT Cardiac Surgery Progress Note: ID: [id number] Mr. Gan 4 Days Post-Op s/p CABG [...] Labs 02/04/19 0900 02/04/19 0435 02/03/19 0928 02/03/19 0227 02/02/19 0415 NA -- -- -- 135 -- K [...] 75 mg qd for diffuse burden of [place] coronary disease Endo: maintain on insulin gtt, lantus 50U qhs; appreciate Endocrinology recommendations Dispo: Floor, full code. Needs rehab at d/c DW Attending Surgeon on rounds. Gus East MD - 02/03/2019 12:34 PM EDT Cardiac Surgery Progress Note: ID: [id number] Mr. Gan 3 Days Post-Op s/p CABG [...] 75 mg qd for diffuse burden of [place] coronary disease Endo: maintain on insulin gtt, [...] Type 2 Insulin gtt Diet Carb control Labs: Ref. Range 01/31/2019 18:00 01/31/2019 18:08 [...] Carb controlled Case was discussed with Staff English Adjunct Faculty, Dr. Nolberto Goff PGY 4 Endocrinology Pager [phone] Associated attestation - Abelardo Arvizu MD - 02/04/2019 2:36 PM EDT I discussed this patient with Dr. Goff. I reviewed the kuo portions of the history and physicalexam, and reviewed pertinent lab data. I was involved in all medical decision making and agree with this plan. ABELARDO ARVIZU MD Quality Assurance Representativeairline manager Section of Endocrinology [facility] Zehra Akhtar RN - 02/02/2019 2:03 PM EDT Images from the original note were not included. Based on discussions with the multi-disciplinary healthcare team, the patient would benefit from inpatient level of care at discharge. ?? I have met with the patient/health and safety representative to discuss discharge planning needs. I have provided the [facility], Office of Care Management letter from the Pollution Control Chemist pertaining to rehab referrals. I have also provided a letter describing our affiliations within the [facility] and educated them about their right to choose where referrals are placed. ?? I reviewed the different levels of rehab including SNF, swing, acute and LTAC with the patient/health and safety representative. ?? The patient/health and safety representative has been provided a list of facilities within their preferred geographic area. ?? I have requested that the patient/health and safety representative provide at least three choices for referral. ?? The patient/health and safety representative have requested referrals to: 1. [facility] Address [address] [place] [address] 2. [facility] [address] [place] [address] ?? [phone] 3. [facility] ?? PHONE: [phone] FAX: [phone] ?? Expected date of discharge: 02/06/2019 Note routed to Systems Architecture Analyst who will communicate referrals to facilities and [...] Nutrition Intervention: Hospital Day 8 Diet Order: CHO2, [facility] Appetite: Poor Food allergies: Shellfish Chewing/Swallowing difficulty: [...] is 46.44 kg/m??. Assessment: Patient seen for hospital LOS. Pt informed of current diet order [...] much and he is unsure of UBW. Tribal Judge provided patient with copy of Guidelines for [...] AM EDT Cardiac Surgery Progress Note: ID: [id number] Mr. Gan 2 Days Post-Op s/p CABG [...] CDI, RLE wrapped with andree bandage Tubes/Lines/Drains: RIJ, juan, cerna, tpw LABS: Recent Labs 02/01/19 0022 [...] Gas) No results found for: PHART, PO2ART, [id number] Assessment/Plan: Mr. Gan 2 Days Post-Op s/p CABG x 3. Pmhx pertinent for CAD, HTN, HLD, MR, DMII, cardiomyopathy, psoriasis, former smoker. Send cultures for fevers D/c cerna D/c PW BB 12.5 BID Start amio 400 TID for AF ppx Cont Lasix 20 IV BID Plan to restart home jerica tomorrow pending K Cont Plavix 75 mg qd for diffuse [place] coronary disease Endo following, plan to convert from insulin gtt tomorrow Likely needs rehab at d/c Neuro: APAP, oxy prn CV: metop 12.5 bid, statin, amio 400 TID for af ppx Resp: wean o2 to maintain 02 >92%, IS, OOB GI: ADAT to carb control/cardiac diet, protonix, zofran prn, rbos : d/c cerna, monitor UOP Renal: lasix 20 iv bid, monitor K and replete prn ID: no acute concerns Heme: ASA 81, plavix 75 mg qd for diffuse burden of [place] coronary disease Endo: maintain on insulin gtt, [...] Value Date/Time PHART 7.43 02/01/2019 05:58 AM [id number] 37 02/01/2019 05:58 AM PO2ART 106 (H) 02/01/2019 05:58 AM BNC5WWL 24.0 02/01/2019 05:58 AM BEART -0.3 02/01/2019 [...] RN - 02/01/2019 9:54 AM EDT The patient/health and safety representative has been provided a list of Home Health Agencies/DME vendors which serve their preferred geographic area. A letter describing our affiliations was reviewed with them and theywere educated about their right to choose where referrals are placed. Patient requests referral to [facility] [employer]. PHONE: [phone] FAX: [phone] Expected date of discharge: tbd Referral routed to the Systems Architecture Analyst for matching with agency/vendor and to provide any required information. Paradise Brand PA - 02/01/2019 9:05 AM EDT Cardiac Surgery Progress Note: ID: [id number] Mr. Gan 1 Day Post-Op s/p CABG [...] last numbers at 0530 CI 2.1 PA / (17) CVP 8 Drips: none I/O last [...] BID Plavix 75 mg qd for diffuse [place] coronary disease Endocrinology consult Intermittent usage of [...] 75 mg qd for diffuse burden of [place] coronary disease Endo: maintain on insulin gtt, appreciate Endocrinology recommendations Dispo: CV[facility], full code DW Attending Surgeon on rounds. Signed: DO Daniel [facility] Section of Cardiac Surgery Date: 02/01/2019 Vanessa Sterling RCP - 02/01/2019 5:39 AM EDT Respiratory Therapy NIV Note NIV Settings: NIV Mode: S/T IPAP (cmH20): (S) 10 EPAP (cmH20): 8 Pressure Support (cm H2O): 2 FiO2 (%): 40 % NIV Measurements: Resp: 17 Mve: 21.1 Leak (L/min): 126 L/min Vte: 1213 SpO2: 99 % Laboratory: Lab Results Component Value Date/Time PHART 7.30 (L) 02/01/2019 12:35 AM [id number] 33 (L) 02/01/2019 12:35 AM PO2ART 101 02/01/2019 12:35 AM QCT0DIP 15.9 (L) 02/01/2019 12:35 AM BEART -10.6 (L) 02/01/2019 12:35 AM Skin Assessment: NIV Skin Assessment WDL: WDL Breath Sounds: clear/diminished Assessment: Received patient intubated on ventilator. He was weaned and extubated without difficultyto BiPAP. He was started on 15/10 and 50%, then weaned to above settings. Plan: We will continue to wean BiPAP as tolerated. VANESSA STERLING RCP Kelly Oliveira APRN - 01/31/2019 12:42 PM EDT Images from the original note were not included. Inpatient Cardiology Progress Note Patient Name: Connor Gan Service: FISHING FLOATS ASSEMBLER / PA Responsible Attending: Lizz Cabrera MD Reason for continued hospitalization: Evaluation and management of unstable angina in a patient with known multivessel disease CT surgery planned today Active Problems: Active Hospital Problems Diagnosis ??? Atherosclerosis of coronary artery Overview: Had Catheterization in 2005 at [facility] -- showed two vessel disease that was not intervened upon (LAD and Circ). [facility] 06/15 showed MVD, not candidate for [...] [facility] 25[facility] elevated troponins for further evaluation. On arrival to [facility] ERhe denied having chest pain, EKG without acute abnormality but his troponins were elevated. 2/2 classic symptoms of angina and troponin elevation, he was loaded with Plavix, started on heparin and transferred to [facility] for further evaluation. Cardiac catheterization found three-vessel [...] as he never had follow-up from his [facility] sleep study done in 2001 Advised [...] this time secondary to(NSTEMI) per [facility] [place] within one month. Kelly Oliveira APRN - 01/30/2019 3:40 PM EDT Images from the original note were not included. Inpatient Cardiology Progress Note Patient Name: Connor Gan Service: FISHING FLOATS ASSEMBLER / PA Responsible Attending: Lizz Cabrera MD Reason for continued hospitalization: Evaluation and management of unstable angina in a patient with known multivessel disease CT surgery planned for 2nd case tomorrow Vein mapping and pulmonary consult appreciated CXR and spirometry needed Active Problems: Active Hospital Problems Diagnosis ??? Atherosclerosis of coronary artery Overview: Had Catheterization in 2005 at [facility] -- showed two vessel disease that was not intervened upon (LAD and Circ). [facility] 06/15 showed MVD, not candidate for [...] normal. Vitals reviewed. Lab Comments: Recent Labs 01/29/19 0443 01/28/19 1335 01/27/19 0408 WBC 10.3* 11.6* [...] from 25% in 2017 and psoriasis [facility] for crescendo angina with elevated troponins for further evaluation. [facility], EKG without acute abnormality but his troponins were elevated. 2/2 classic symptoms of angina and troponin elevation, he was loaded with Plavix, started on heparin and transferred to [facility] for further evaluation. Cardiac catheterization found three-vessel [...] as he never had follow-up from his [facility] sleep study done in 2001 Advised about follow up with PMD for out patient CPAP machine and to lose weight Pulmonary consult appreciated ?? Code status Full code He wants his ex as next of kin for medical decision making, next of kin Ex Shraddha Esteves , [facility] completed Discussed with MD Kelly Tesfaye, PLATING DEPARTMENT HELPER 01/30/2019 Associated attestation - Lizz Cabrera MD [...] note for full details. Lizz Cabrera MD [facility] Interventional Cardiology Pager [phone] Marine Teran MD - 01/30/2019 12:16 PM EDT Images from the original note were not included. 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 Atherosclerosis of coronary artery Overview: Had Catheterization in 2005 at [facility] -- showed two vessel disease that was not intervened upon (LAD and Circ). [facility] 06/15 showed MVD, not candidate for [...] normal. Vitals reviewed. Lab Comments: Recent Labs 01/29/19 0443 01/28/19 1335 01/27/19 0408 WBC 10.3* 11.6* [...] from 25% in 2017 and psoriasis [facility] for crescendo angina with elevated troponins for further evaluation. On arrival [facility] ERhe denied having chest pain, EKG without acute abnormality but his troponins were elevated. 2/2 classic symptoms of angina and troponin elevation, he was loaded with Plavix, started on heparin and transferred to [facility] for further evaluation. Cardiac catheterization found three-vessel [...] as he never had follow-up from his [facility] sleep study done in 2001 Advised about follow up with PMD for out patient CPAP machine and to lose weight Pulmonary consult pre op surgery ?? Code status Full code He wants his ex as next of kin for medical decision making, next of kin Ex Shraddha Esteves Discussed with MD Kelly Tesfaye, PLATING DEPARTMENT HELPER 01/29/2019 Associated attestation - Lizz Cabrera MD [...] per Kelly Oliveira's note. Lizz Cabrera MD [facility] Interventional Cardiology Pager [phone] Kelly Oliveira, PLATING DEPARTMENT HELPER - 01/28/2019 9:41 AM EDT Images from the original note were not included. 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 Atherosclerosis of coronary artery Overview: Had Catheterization in 2005 at [facility] -- showed two vessel disease that was not intervened upon (LAD and Circ). [facility] 06/15 showed MVD, not candidate for [...] INR 1.1 Recent Labs 01/27/19 0408 01/26/19 222 NA 137 136 K 4.1 4.5 CL 103 101 CO2 21* 22 BUN 21* 22* CREATININE 0.84 0.94 Recent Labs 01/26/19 222 AST 24 ALT 32 ALKPHOS 47 BILITOT 0.5 BILIDIR 0.1 Recent Labs 01/26/19 222 CALCIUM 9.4 MAGNESIUM 0.71 Recent Labs 01/27/19 0408 01/26/19 222 CK -- 133 TROPONINT <0.01 0.01* Pertinent [...] from 25% in 2017 and psoriasis [facility] for crescendo angina with elevated troponins for further evaluation. On arrival [facility] ERhe denied having chest pain, EKG without acute abnormality but his troponins were elevated. 2/2 classic symptoms of angina and troponin elevation, he was loaded with Plavix, started on heparin and transferred to [facility] for further evaluation. Cardiac catheterization found three-vessel [...] Esteves Discussed with MD Kelly Tesfaye, OLIVER 01/28/2019 Associated attestation - Lizz Cabrera MD [...] long discussion with him and his ex- (DPABDIRASHID) about his options (CABG vs. PCI). He was seen by CTS this am and per report the plan is to proceed with CABG. Please see CTS consult note for full details. Will optimize meds and plan for surgical revascularization. Remainder of plan per Kelly Oliveira's note. 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 Atherosclerosis of coronary artery Overview: Had Catheterization in 2005 at [facility] -- showed two vessel disease that was [...] from 25% in 2017 and psoriasis [facility] for crescendo angina with elevated troponins for further evaluation. On arrival [facility] ERhe denied having chest pain, EKG without acute abnormality but his troponins were elevated. 2/2 classi symptoms of angina and troponin elevation, he was loaded with Plavix, started on heparin and transferred to [facility] for further evaluation. Plan for Echo and [...] percutaneous since 2001). More recent records from [facility] in 2017 comment ondiffuse 3VD with severely [...] will optimize medical therapy. Lizz Cabrera MD [facility] Interventional Cardiology Pager [phone] documented in this encounter H&P Notes Trip Corona MD - 01/31/2019 1:00 PM EDT I have seen and examined the patient and we are ready to proceed. Source Note - Galindo Bell MD - 01/26/2019 8:54 PM [...] artery Overview: Had Catheterization in 2005 at [facility] -- showed two vessel disease that was not intervened upon (LAD and Circ). [facility] 06/15 showed MVD, not candidate for [...] 3VD-managed medically-[facility]), DM- 2(Insulin dependent), HTN, HLD, ICM(LVEF-45%99865) improved from 25%(2017) and Psoriasis transferred from [facility] for crescendo symptoms of angina with elevated [...] worsening shortness of breath. On arrival to [facility] ER he denies having any chest pain , EKG without any acute abnormality but his troponins were elevated. Because of his classical symptoms of angina and troponin elevation loaded with plavix, started on heparin and transferred to [facility] forfurther evaluation. He denies any recent fever, chills , rigors , sick contacts, long distance travel,PND or Orthopnea. His weight has increased few pounds but denies any lower extremity edema. He has been having claudication pain with exertion. Labs and Medications from [facility]); Vitals on arrival; Bp; 85/42 mm of hg; Pr; 76/min; Rr; 14/min; O2 sat; 94% Labs; Wbc; 11.42 Hg; 13.2 Platelets; 182 PT/INR; 10/ Ca; 9.5 BUN;22 Creatinine; 1.14 Glucose; 208 Troponin I; 0.14(0.00-0.06) Lft's; Normal Chest X ray; No acute cardiopulmonary process Medications given; Heparin gtt Aspirin; 324mg Plavix; 300mg Past Medical History: Past Medical History: Diagnosis Date ??? CAD (coronary artery disease) ??? Diabetes mellitus ??? Hypertension Previous Diagnostics: Stress: Echo:09/21/2017; [facility] Echocardiogram; 06/2017 Cath: from [facility]; 2017 Coronary Angiography: Dominance: Right Left Main The [...] file Gets together: Not on file Attends jainism service: Not on file Active member of [...] times daily. 01/26/2019 at Unknown time ??? Intervale-3 Fatty Acids (FISH OIL) 500 mg Cap [...] Unknown time ??? blood sugar diagnostic strips (MobiCartTOUCH ULTRA TEST) Strip Use to test blood [...] in lower extremities(Dorsalis pedis), no calf tenderness Neuro/SPECIAL SERVICES SUPERVISOR: AAO x 3, No evident deficits Skin/Integumentary: [...] 3VD-managed medically-[facility]), DM- 2(Insulin dependent), HTN, HLD, ICM(LVEF-45%36006) improved from 25%(2017) and Psoriasis transferred from [facility] for crescendo symptoms of angina with elevated troponins for further evaluation. On arrival to [facility] ER he denies having any chest pain , EKG without any acute abnormality but his troponins were elevated. Because of his classical symptoms of angina and troponin elevation loaded with plavix, started on heparin andtransferred to [facility] for further evaluation. 1; MFBOBR-Nlhi-9; He is known patient of significant ASCVD [...] Next of kin -Ex ; Shraddha Esteves; [phone] Galindo Bell MD Provider #: [id number] 01/26/2019 [...] artery Overview: Had Catheterization in 2005 at [facility] -- showed two vessel disease that was not intervened upon (LAD and Circ). [facility] 06/15 showed MVD, not candidate for [...] 3VD-managed medically-[facility]), DM- 2(Insulin dependent), HTN, HLD, ICM(LVEF-45%96255) improved from 25%(2017) and Psoriasis transferred from [facility] for crescendo symptoms of angina with elevated [...] worsening shortness of breath. On arrival to [facility] ER he denies having any chest pain , EKG without any acute abnormality but his troponins were elevated. Because of his classical symptoms of angina and troponin elevation loaded with plavix, started on heparin and transferred to [facility] for[facility] evaluation. He denies any recent fever, chills , rigors , sick contacts, long distance travel,PND or Orthopnea. His weight has increased few pounds but denies any lower extremity edema. He has been having claudication pain with exertion. Labs and Medications from [facility]); Vitals on arrival; Bp; 85/42 mm of [...] mellitus ??? Hypertension Previous Diagnostics: Stress: Echo:09/21/2017; [facility] Echocardiogram; 06/2017 Cath: from [facility]; 2016 Coronary Angiography: Dominance: Right Left Main [...] file Gets together: Not on file Attends jainism service: Not on file Active member of [...] times daily. 01/26/2019 at Unknown time ??? Intervale-3 Fatty Acids (FISH OIL) 500 mg Cap [...] Unknown time ??? blood sugar diagnostic strips (Vaughn BurtonUCH ULTRA TEST) Strip Use to test blood [...] in lower extremities(Dorsalis pedis), no calf tenderness Neuro/SPECIAL SERVICES SUPERVISOR: AAO x 3, No evident deficits Skin/Integumentary: [...] 3VD-managed medically-[facility]), DM- 2(Insulin dependent), HTN, HLD, ICM(LVEF-45%43913) improved from 25%(2017) and Psoriasis transferred from [facility] for crescendo symptoms of angina with elevated troponins for further evaluation. On arrival to [facility] ER he denies having any chest pain , EKG without any acute abnormality but his troponins were elevated. Because of his classical symptoms of angina and troponin elevation loaded with plavix, started on heparin andtransferred to [facility] for further evaluation. 1; VBGRMA-Helk-2; He is known patient of significant ASCVD [...] Next of kin -Ex ; Shraddha Esteves; [phone] Galindo Bell MD Provider #: [id number] 01/26/2019 [...] Corona MD - 02/06/2019 2:30 PM EDT [facility] Operative Note Patient Name: Connor Gan : [id number] MR#: [id number] Case Date: 01/31/2019 Surgeon: Surgeon(s) and Role: * Trip Corona MD - Primary * Adi Patel PA - Physician Risk Control Analyst Preoperative diagnosis: CAD, Cardiomyopathy Postoperative diagnosis: CAD, Cardiomyopathy PROCEDURE: CABG X 3, WYLIE-LAD, SVG-OM, SVG- RDPA, EVH GREATER SAPHENOUS VEIN RIGHT LEG, EM Indications for procedure: Connor Gan is a 68 y.o. year old male who has been followed for many years with CAD and cardiomyopathy. HE was admitted to [facility] in June of 2017. At that time [...] good flow into the LAD LAD distribution. clin nurse spec was then administered first retrograde, then antegrade, [...] Lewis RN - 02/06/2019 8:30 AM EDT [facility]ATION Connor Vera Malik was seen today regarding participation in the outpatient Phase 2 Cardiac Rehabilitation at [facility]. The patient agrees to a referral to this program. The referral will be sent at discharge and the patient should be contacted by the Program within 1- 2 weeks from discharge. Plan of Care - Gladis Ogden RN - 02/06/2019 5:29 AM EDT Problem: Patient Care Overview Goal: Plan of Care Review Outcome: Ongoing (Interventions Implemented as Appropriate) 02/06/19 8231 Plan of Care Review Progress progress toward [...] (Interventions Implemented as Appropriate) 02/05/19 0813 02/05/19 5687 Plan of Care Review Progress -- progress [...] no steps to enter. 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 He reports he uses a cane sometimes [...] needs in reach following visit. Assessment: Connor Vera Malik was seen today for physical therapy treatment [...] plan as stated. Time IN / OUT: 0635-9255 Total Evaluation Minutes, Physical Therapy: 33(gtx1, tefx1) Zehra Fitzgerald, PT Pager: [phone] Physical Therapy Inpatient Rehabilitation Department Plan of [...] oxycodone. I.S. Done with encouragement up to [phone]. Insulin gtt weaned to off this am [...] Outcome: Ongoing (Interventions Implemented as Appropriate) 02/03/19201902/04/19 0800 02/04/19 0937 Activity Activity Type -- -- ambulated [...] Conf Outcome: Ongoing (Interventions Implemented as Appropriate) 01/27/19 0250 Interdisciplinary Rounds/Family Conf Participants nursing;patient;physician Problem: Cardiac: [...] Pt refused to wear cpap. Samra Green RRT Plan of Care - Jacqueline Zelaya RN - 02/03/2019 5:55 PM EDT Problem: Patient Care Overview Goal: Plan of Care Review 01/30/19 1234 02/03/19 09 Plan of Care Review Progress progress toward [...] Outcome: Ongoing (Interventions Implemented as Appropriate) 02/03/19 0902/03/19 1633 Activity Activity Type -- ambulated to [...] Outcome: Ongoing (Interventions Implemented as Appropriate) 02/03/19 0902/03/19 1200 Safety Interventions Isolation Precautions standard precautions maintained -- Infection Prevention -- rest/sleep promoted;single patient room provided;environmental surveillance performed Coping Strategies Supportive Measures active listening utilized -- Plan of Care - Giles Hawthorne, JACEY - 02/03/2019 6:54 AM EDT Problem: Patient [...] Handling Outcome: Ongoing (Interventions Implemented as Appropriate) 02/02/19209902/03/19 0400 Activity Activity Type activity adjusted per [...] Control Outcome: Ongoing (Interventions Implemented as Appropriate) 02/01/19 2000 02/02/19 1200 Safety Interventions Isolation Precautions -- standard [...] EVALUATION NOTE: OUTCOME SUMMARY: Pt came from [facility] around 1200. A&O. VSS. SR on tele. [...] management and to provide a review of terminal clerk diabetes care. Diabetes History: Connor Gan has [...] 47 BILITOT 0.5 BILIDIR 0.1 Recent Labs 01/31/195 INR 1.5 PT 17.2* PTT 33 Recent Labs 02/01/19 0022 01/27/19 0408 01/26/19 2221 TROPONINT 0.28* <0.01 0.01* CK -- -- 133 Recent Labs 02/01/19 002 GLUCOSE 292* Assessment: Patient is a 68 [...] I added a meal associated insulin however EDH changed the start time from noon to 1700 after I signed and rechecked the order so no lunch coverage given. Plan: 1. Lantus 50 units tonight continue IV insulin complete transition in AM 2. Meal-associated Lispro 0-12 units tid ac (or 1unit: 7 gm carb ratio for each meal) [facility] diabetes care: Medications - Outpatient treatment regimen recommendations pending based on the hospital course. Monitoring - continue BG tid ac & hs Diet - low fat/low carb diet Exercise - weight-bearing exercise 30 min/day, as tolerated Thank you for allowing us to provide care for your patient Montserrat Flores APRN Endocrinology Pager [phone] Plan of Care - Jesus Reynoso, PT [...] ABG on bipap 05/15 on 40% 7.43/37/106/24 Patient with the following active problems: Past [...] (WRVU 33.75) performed by Trip Corona MDat [facility] ??? PRO CABG, ARTERY-VEIN, TWO N/A 01/31/2019 @CABG, TWO VENOUS GRAFTS & ARTERIAL GRAFT (WRVU 7.93) performed by Trip Corona MD at [facility] ??? PRO ENDOSCOPY W/VIDEO-ASST VEIN HARVEST, CABG Right 01/31/2019 ENDOSCOPIC HARVEST VEIN(S) FOR CABG (WRVU 0.31) performed by Trip Corona MD at [facility] Social History: Pt lives alone in a senior apartment with no steps to enter. 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 He reports he uses a cane sometimes [...] Pt seen for evaluation today in the [facility]. Pt in bed at start of session; [...] Therapy: 38(eval; te-f) JESUS REYNOSO, PT Pager: [phone] Physical Therapy Inpatient Rehabilitation Department Brief Op Note - Trip Corona MD - 01/31/2019 7:40 PM EDT Brief Operative Note Patient Name: Connor Gan : [id number] MR#: [id number] Case Date: 01/31/2019 Surgeon: Surgeon(s) and Role: * Trip Corona MD - Primary * Adi Patel PA - Physician Risk Control Analyst Preoperative diagnosis: CAD, Cardiomyopathy Postoperative diagnosis: CAD, [...] Review Outcome: Ongoing (Interventions Implemented as Appropriate) 01/29/19173501/29/191999 Plan of Care Review Progress progress toward [...] CPG). Outcome: Ongoing (Interventions Implemented as Appropriate) 01/29/19 1736 Cardiac Cath/Percutaneous Coronary Intervention Problems Assessed (Cardiac [...] EDT Office of Care Management Initial Assessment Reinsurance Clerk DAYSI VEGA RN,MA,ACM:Reviewed record and in Cardiology Rounds w MD team,CMs, frame trimmer, FRONTLOAD DRIVER, PT Source of Information: eDH,team, pt interview [...] Current Decision-Making Capacity: intact Advance Care Planning: [facility] has done and [facility] has a copy and primary DPOAH is [...] [employer] as well as financial support from [facility] Prescription Coverage: Medicare D +VPharm(Vt aid for prescription program) Preferred Pharmacy: not addresssed Other: Thought he gave his info to [facility] long before this adm and also thought he was approved for financial assist w [facility]. Primary Care Provider: Taye Ron MD [phone] Patient/Caregiver Goals of Treatment:Get home,back on my own Potential Needs for Transition of Care: Rehab/SNF: Discussed generally that this is sometimes needed post CABG and that was one of the reasons helpful to know about supplement to his medicare. Home Health: ([place] [facility]) DME: none Dialysis: NA Community Resources: will provide FAST FOOD CREW MEMBER choices Transportation: dtr or friend Other: none [...] of RN. Plan: Referral to [facility]uk[employer] Patel Systems Architecture Analyst to f/u re secondary ins and or need for medicaid. A member of the Care Management team will continue to monitor progress, follow for continuity of care and assist with transition of care planning. DAYSI VEGA, RN,MA,ACM for RN Pager: [phone] Consult Note - Marine Teran MD - 01/29/2019 9:00 AM EDT Images from the original note were not included. INITIAL PULMONOLOGY CONSULTATION NOTE SECTION OF PULMONARY/CRITICAL CARE MEDICINE Patient Name: Connor Gan : 1950 Medical Record: [id number] Date of Service: 01/29/2019 Hospital Day #: Hospital Day: 4 Location: [address] Requesting Provider: Lizz Cabrera MD I [...] mech vent, suspect will not need it terminal clerk and can be maintained on CPAP for [place] Outpatient full PFT's as well as repeat polysomnography with sleep eval post op For now, will await results of CXR and jreica prior to recommendations of any respiratory medications Continue diuresis Marine Teran MD,MPH Interventional Pulmonary Pulmonary and Critical Care Medicine 12:16 PM 01/29/2019 Reason for Consultation: Shortness of breath, pre-operative evaluation History of present illness: 68 y/o M with h/o CAD and ICM (LVEF-45% 04/2018) improved from 25% (2016), DM-2 (Insulin dependent), HTN, HLD,and Psoriasis (on Adalimumab) who was transferred from [facility] for crescendo symptoms of angina with elevated [...] occupational exposures: 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 TSH 15.65 at admission. EKG: Variable [place] interval, Q waves on inferior leads. 2D [...] 01/29/2019, 9:00 AM Resident, Pulmonary Medicine Pager: [phone] Plan of Care - Pan Castro, RN - 01/29/2019 4:14 AM EDT Problem: Patient Care Overview Goal: Plan of Care Review Outcome: Ongoing (Interventions Implemented as Appropriate) 01/28/19199901/29/19 3636 Plan of Care Review Progress -- progress [...] Review Outcome: Ongoing (Interventions Implemented as Appropriate) 01/28/19 107 Plan of Care Review Progress progress toward [...] CPG). Outcome: Ongoing (Interventions Implemented as Appropriate) 01/28/19 1755 Cardiac: ACS (Acute Coronary Syndrome) Problems Assessed [...] CPG). Outcome: Ongoing (Interventions Implemented as Appropriate) 01/28/19 1755 Cardiac Cath/Percutaneous Coronary Intervention Problems Assessed (Cardiac Catheterization) all Problems Present (Cardiac Catheterization) none OUTCOME EVALUATION NOTE: OUTCOME SUMMARY: Pt A+O. No complaints of pain or SOB. SR on tele with rare bursts of pacs. Pt ambulated independently. Right radial site remains CDI, CSM intact. PLAN MOVING FORWARD: respiratory to try room air ABG tomorrow- PLATING DEPARTMENT HELPER Stender aware, vein mapping INDIVIDUALIZED FALL PREVENTION [...] CAD and cardiomyopathy. HE was admitted to [facility] in June of 2017. At that time [...] artery Overview: Had Catheterization in 2005 at [facility] -- showed two vessel disease that was not intervened upon (LAD and Circ). [facility] 06/15 showed MVD, not candidate for [...] times daily. 01/26/2019 at Unknown time ??? Intervale-3 Fatty Acids (FISH OIL) 500 mg Cap [...] Unknown time ??? blood sugar diagnostic strips (BettingXpert ULTRA TEST) Strip Use to test blood [...] Watson MD - 01/27/2019 12:33 PM EDT [facility] Operative Note Patient Name: Connor Gan : [id number] MR#: [id number] Case Date: 01/27/2019 Surgeon: Surgeon(s) and Role: * Taisha Watson MD - Primary * David Castro PA - Physician Risk Control Analyst Preoperative diagnosis: nstemi Postoperative diagnosis: NSTEMI, with [...] evident early complications. Results discussed with service airplane woodworker Dr Lizz Cabrera, and with the patient and their family. Letter sent to referring airplane woodworker, Dr Lambert. A time-out was conducted prior [...] further details. Galindo Bell MD 01/27/2019 Pager [phone] Plan of Care - Joe Mccall RN - 01/27/2019 3:28 AM EDT Problem: Patient Care Overview Goal: Plan of Care Review Outcome: Ongoing (Interventions Implemented as Appropriate) 01/26/19 2100 01/27/19 0250 Plan of Care Review Progress -- no change Coping/Psychosocial Plan Of Care Reviewed With patient -- OUTCOME EVALUATION NOTE: OUTCOME SUMMARY: Pt admitted to [facility] from [facility] with stable VS, A+Ox4, and 1st [...] of feelings encouraged Intervention: Monitor/Manage Fluid Balance 01/26/19 2100 Safety Interventions Medication Review/Management medications reviewed Goal: Signs and Symptoms of Listed Potential Problems Will be Absent, Minimized or Managed (Cardiac:ACS) Signs and symptoms of listed potential problems will be absent, minimized or managed by discharge/transition of care (reference Cardiac: ACS (Acute Coronary Syndrome) (Adult) CPG). 01/27/19 0250 Cardiac: ACS (Acute Coronary Syndrome) Problems Assessed (Acute Coronary Syndrome (ACS)) all Problems Present (Acute Coronary Syndrome (ACS)) none documented in this encounter Plan of Treatment Upcoming Encounters Date Type Specialty Care Team Description 04/27/2022 Tech Visit Vascular Surgery Anais Singh 04/27/2022 Office Visit Vascular Surgery Sulema Fajardo MD [facility] VASCULAR SURGERY [place], [place] [address] (Wo rk) 05/18/2022 Office Visit Dermatology Alejandro Reese MD [address] [facility] DERMATOLOGY [place], [place] [address] (Wo rk) Scheduled Referrals [...] section. TYPE AND SCREEN Routine 01/30/2019 6:18 ([facility]) PM EDT POCT GLUCOSE Routine 01/30/2019 4:11 [...] Results for this GRAFT, BILAT AM EDT [place] coronary artery proce dure are in of [place] heart with the res ults unstable angina [...] results elevated myocardial section. infarction) Atherosclerosis of [place] coronary artery of [place] heart with unstable angina pectoris CARDIAC Routine [...] are in Atherosclerosis of the resul ts [place] coronary artery secti on. of [place] heart with unstable angina pectoris NSTEMI (non-ST [...] 456 ms MUSE SYSTEM (Bezet) Calculated P [place] 41 degrees MUSE SYSTEM Calculated R [place] -65 degrees MUSE SYSTEM Calculated T [place] 146 degrees MUSE SYSTEM INTERPRETATION Sinus rhythm [...] (ABNORMAL) POCT Glucose (02/06/2019 11:49 AM EDT) P athologist Signature POC Glucose 232 (H) 65 - 199 [facility] mg/dL [facility] [facility] Comment: Supplemental ranges: <140 mg/dL before meals <180 mg/dL all other times of the day Specimen Anatomical Collection Method Collection Time Receive d Time (Source) Location / / Volume Laterality Blood specimen 02/06/2019 11:49 9 (specimen) AM EDT 11:49 AM EDT Trip Corona MD POINT OF CARE TEST ORDERABLE S Performing Organization Address City/State/[place] [address] Potassium (02/06/2019 8:20 AM EDT) athologist Signature Potassium 4.5 3.5 - 5.0 [facility]L [facility] Comment: Please note: ??Patients with WBC [...] Corona MD CHEMISTRY ORDERABLES Performing Organization Address City/[facility]/[place]IP [place] [address] POCT Glucose (02/06/2019 7:47 AM EDT) athologist Signature POC Glucose 147 65 - 199 [facility]dL [facility] Comment: Supplemental ranges: <140 mg/dL before meals <180 mg/dL all other times of the day Specimen Anatomical Collection Method Collection Time Receive d Time (Source) Location / / Volume Laterality Blood specimen 02/06/2019 7:47 AM 019 7:47 (specimen) EDT AM EDT Trip Corona MD POINT OF CARE TEST ORDERABLE S Performing Organization Address City/State/[place] [address] POCT Glucose (02/06/2019 5:00 AM EDT) athologist Signature POC Glucose 129 65 - 199 [facility] Comment: Supplemental ranges: <140 mg/dL before meals <180 mg/dL all other times of the day Specimen Anatomical Collection Method Collection Time Receive d Time (Source) Location / / Volume Laterality Blood specimen 02/06/2019 5:00 AM 019 5:00 (specimen) EDT AM EDT Trip Corona MD POINT OF CARE TEST ORDERABLE S Performing Organization Address City/State/[place] [address] POCT Glucose (02/05/2019 11:18 PM EDT) P athologist Signature POC Glucose 132 65 - 199 [facility] mg/dL [facility] Comment: Supplemental ranges: <140 mg/dL before meals <180 mg/dL all other times of the day Specimen Anatomical Collection Method Collection Time Receive d Time (Source) Location / / Volume Laterality Blood specimen 02/05/2019 11:18 9 (specimen) PM EDT 11:18 PM EDT Trip Corona MD POINT OF CARE TEST ORDERABLE S Performing Organization Address City/State/[place] [address] (ABNORMAL) POCT Glucose (02/05/2019 7:57 PM EDT) athologist Signature POC Glucose 248 (H) 65 - 199 [facility] [place] mg/dL [facility] Comment: Supplemental ranges: <140 mg/dL before meals <180 mg/dL all other times of the day Specimen Anatomical Collection Method Collection Time Receive d Time (Source) Location / / Volume Laterality Blood specimen 02/05/2019 7:57 PM 019 7:57 (specimen) EDT PM EDT Trip Corona MD POINT OF CARE TEST ORDERABLE S Performing Organization Address City/State/[place] [address] (ABNORMAL) POCT Glucose (02/05/2019 4:21 PM EDT) P athologist Signature POC Glucose 230 (H) 65 - 199 [place] mg/dL [facility] Comment: Supplemental ranges: <140 mg/dL before meals <180 mg/dL all other times of the day Specimen Anatomical Collection Method Collection Time Receive d Time (Source) Location / / Volume Laterality Blood specimen 02/05/2019 4:21 PM 019 4:21 (specimen) EDT PM EDT Trip Corona MD POINT OF CARE TEST ORDERABLE S Performing Organization Address City/State/[place] [address] (ABNORMAL) POCT Glucose (02/05/2019 2:17 PM EDT) P athologist Signature POC Glucose 245 (H) 65 - 199 [place] mg/dL [facility] Comment: Supplemental ranges: <140 mg/dL before meals <180 mg/dL all other times of the day Specimen Anatomical Collection Method Collection Time Receive d Time (Source) Location / / Volume Laterality Blood specimen 02/05/2019 2:17 PM 019 2:17 (specimen) EDT PM EDT Trip Corona MD POINT OF CARE TEST ORDERABLE S Performing Organization Address City/State/[place] [address] (ABNORMAL) POCT Glucose (02/05/2019 11:44 AM EDT) P athologist Signature POC Glucose 222 (H) 65 - 199 [facility] mg/dL [facility] Comment: Supplemental ranges: <140 mg/dL before meals <180 mg/dL all other times of the day Specimen Anatomical Collection Method Collection Time Receive d Time (Source) Location / / Volume Laterality Blood specimen 02/05/2019 11:44 9 (specimen) AM EDT 11:44 AM EDT Trip Corona MD POINT OF CARE TEST ORDERABLE S Performing Organization Address City/State/[place] [address] (ABNORMAL) POCT Glucose (02/05/2019 11:05 AM EDT) P athologist Signature POC Glucose 214 (H) 65 - 199 [place] mg/dL [facility] Comment: Supplemental ranges: <140 mg/dL before meals <180 mg/dL all other times of the day Specimen Anatomical Collection Method Collection Time Receive d Time (Source) Location / / Volume Laterality Blood specimen 02/05/2019 11:05 9 (specimen) AM EDT 11:05 AM EDT Trip Corona MD POINT OF CARE TEST ORDERABLE S Performing Organization Address City/State/[place] [address] (ABNORMAL) POCT Glucose (02/05/2019 10:34 AM EDT) P athologist Signature POC Glucose 288 (H) 65 - 199 [facility] mg/dL [facility] Comment: Supplemental ranges: <140 mg/dL before meals <180 mg/dL all other times of the day Specimen Anatomical Collection Method Collection Time Receive d Time (Source) Location / / Volume Laterality Blood specimen 02/05/2019 10:34 9 (specimen) AM EDT 10:34 AM EDT Trip Corona MD POINT OF CARE TEST ORDERABLE S Performing Organization Address City/State/[place] [address] (ABNORMAL) POCT Glucose (02/05/2019 10:10 AM EDT) P athologist Signature POC Glucose 272 (H) 65 - 199 [facility] Comment: Supplemental ranges: <140 mg/dL before meals <180 mg/dL all other times of the day Specimen Anatomical Collection Method Collection Time Receive d Time (Source) Location / / Volume Laterality Blood specimen 02/05/2019 10:10 9 (specimen) AM EDT 10:10 AM EDT Trip Corona MD POINT OF CARE TEST ORDERABLE S Performing Organization Address City/State/[place] [address] (ABNORMAL) POCT Glucose (02/05/2019 9:10 AM EDT) P athologist Signature POC Glucose 270 (H) 65 - 199 [facility] Comment: Supplemental ranges: <140 mg/dL before meals <180 mg/dL all other times of the day Specimen Anatomical Collection Method Collection Time Receive d Time (Source) Location / / Volume Laterality Blood specimen 02/05/2019 9:10 AM 019 9:10 (specimen) EDT AM EDT Trip Corona MD POINT OF CARE TEST ORDERABLE S Performing Organization Address City/[facility]/[place]IP [place] [address] (ABNORMAL) POCT Glucose (02/05/2019 8:05 AM EDT) athologist Signature POC Glucose 232 (H) 65 - 199 [facility] Comment: Supplemental ranges: <140 mg/dL before meals <180 mg/dL all other times of the day Specimen Anatomical Collection Method Collection Time Receive d Time (Source) Location / / Volume Laterality Blood specimen 02/05/2019 8:05 AM 019 8:05 (specimen) EDT AM EDT Trip Corona MD POINT OF CARE TEST ORDERABLE S Performing Organization Address City/[facility]/[place] [address] Potassium (02/05/2019 7:08 AM EDT) athologist Signature Potassium 4.4 3.5 - 5.0 [facility] mmol/L [facility] Comment: Please note: ??Patients with WBC [...] Corona MD CHEMISTRY ORDERABLES Performing Organization Address City/[facility]/[place] [address] (ABNORMAL) POCT Glucose (02/05/2019 7:00 AM EDT) athologist Signature POC Glucose 214 (H) 65 - 199 [place] mg/dL [facility] Comment: Supplemental ranges: <140 mg/dL before meals <180 mg/dL all other times of the day Specimen Anatomical Collection Method Collection Time Receive d Time (Source) Location / / Volume Laterality Blood specimen 02/05/2019 7:00 AM 019 7:00 (specimen) EDT AM EDT Trip Corona MD POINT OF CARE TEST ORDERABLE S Performing Organization Address City/State/ZIP Code Phon e Number [address] POCT Glucose (02/05/2019 5:06 AM EDT) athologist Signature POC Glucose 161 65 - 199 [place] mg/dL [facility] Comment: Supplemental ranges: <140 mg/dL before meals <180 mg/dL all other times of the day Specimen Anatomical Collection Method Collection Time Receive d Time (Source) Location / / Volume Laterality Blood specimen 02/05/2019 5:06 AM 019 5:06 (specimen) EDT AM EDT Trip Corona MD POINT OF CARE TEST ORDERABLE S Performing Organization Address City/[facility]/ZIP Code Phon e Number [address] POCT Glucose (02/05/2019 4:03 AM EDT) athologist Signature POC Glucose 143 65 - 199 [place] mg/dL [facility] Comment: Supplemental ranges: <140 mg/dL before meals <180 mg/dL all other times of the day Specimen Anatomical Collection Method Collection Time Receive d Time (Source) Location / / Volume Laterality Blood specimen 02/05/2019 4:03 AM 019 4:03 (specimen) EDT AM EDT Trip Corona MD POINT OF CARE TEST ORDERABLE S Performing Organization Address City/State/ZIP Code Phon e Number [address] POCT Glucose (02/05/2019 3:03 AM EDT) athologist Signature POC Glucose 134 65 - 199 [facility] Comment: Supplemental ranges: <140 mg/dL before meals <180 mg/dL all other times of the day Specimen Anatomical Collection Method Collection Time Receive d Time (Source) Location / / Volume Laterality Blood specimen 02/05/2019 3:03 AM 019 3:03 (specimen) EDT AM EDT Trip Corona MD POINT OF CARE TEST ORDERABLE S Performing Organization Address City/State/ZIP Code Phon e Number [address] POCT Glucose (02/05/2019 2:04 AM EDT) athologist Signature POC Glucose 118 65 - 199 [facility] Comment: Supplemental ranges: <140 mg/dL before meals <180 mg/dL all other times of the day Specimen Anatomical Collection Method Collection Time Receive d Time (Source) Location / / Volume Laterality Blood specimen 02/05/2019 2:04 AM 019 2:04 (specimen) EDT AM EDT Trip Corona MD POINT OF CARE TEST ORDERABLE S Performing Organization Address City/State/ZIP Code Phon e Number [address] POCT Glucose (02/05/2019 1:02 AM EDT) athologist Signature POC Glucose 118 65 - 199 [facility] Comment: Supplemental ranges: <140 mg/dL before meals <180 mg/dL all other times of the day Specimen Anatomical Collection Method Collection Time Receive d Time (Source) Location / / Volume Laterality Blood specimen 02/05/2019 1:02 AM 019 1:02 (specimen) EDT AM EDT Trip Corona MD POINT OF CARE TEST ORDERABLE S Performing Organization Address City/State/ZIP Code Phon e Number [address] POCT Glucose (02/05/2019 12:05 AM EDT) athologist Signature POC Glucose 114 65 - 199 [place] mg/dL [facility] Comment: Supplemental ranges: <140 mg/dL before meals <180 mg/dL all other times of the day Specimen Anatomical Collection Method Collection Time Receive d Time (Source) Location / / Volume Laterality Blood specimen 02/05/2019 12:05 9 (specimen) AM EDT 12:05 AM EDT Trip Corona MD POINT OF CARE TEST ORDERABLE S Performing Organization Address City/State/ZIP Code Phon e Number [address] POCT Glucose (02/04/2019 11:02 PM EDT) athologist Signature POC Glucose 121 65 - 199 [facility] [place] mg/dL [facility] Comment: Supplemental ranges: <140 mg/dL before meals <180 mg/dL all other times of the day Specimen Anatomical Collection Method Collection Time Receive d Time (Source) Location / / Volume Laterality Blood specimen 02/04/2019 11:02 9 (specimen) PM EDT 11:02 PM EDT Trip Corona MD POINT OF CARE TEST ORDERABLE S Performing Organization Address City/State/ZIP Code Phon e Number [address] POCT Glucose (02/04/2019 10:11 PM EDT) athologist Signature POC Glucose 131 65 - 199 [place] mg/dL [facility] Comment: Supplemental ranges: <140 mg/dL before meals <180 mg/dL all other times of the day Specimen Anatomical Collection Method Collection Time Receive d Time (Source) Location / / Volume Laterality Blood specimen 02/04/2019 10:11 9 (specimen) PM EDT 10:11 PM EDT Trip Corona MD POINT OF CARE TEST ORDERABLE S Performing Organization Address City/State/ZIP Code Phon e Number [address] POCT Glucose (02/04/2019 9:34 PM EDT) athologist Signature POC Glucose 129 65 - 199 [place] mg/dL [facility] Comment: Supplemental ranges: <140 mg/dL before meals <180 mg/dL all other times of the day Specimen Anatomical Collection Method Collection Time Receive d Time (Source) Location / / Volume Laterality Blood specimen 02/04/2019 9:34 PM 019 9:34 (specimen) EDT PM EDT Trip Corona MD POINT OF CARE TEST ORDERABLE S Performing Organization Address City/State/Z[place] [address] POCT Glucose (02/04/2019 8:36 PM EDT) athologist Signature POC Glucose 146 65 - 199 [place] mg/dL [facility] Comment: Supplemental ranges: <140 mg/dL before meals <180 mg/dL all other times of the day Specimen Anatomical Collection Method Collection Time Receive d Time (Source) Location / / Volume Laterality Blood specimen 02/04/2019 8:36 PM 019 8:36 (specimen) EDT PM EDT Trip Corona MD POINT OF CARE TEST ORDERABLE S Performing Organization Address City/State/ZIP Code Phon e Number [address] POCT Glucose (02/04/2019 7:16 PM EDT) athologist Signature POC Glucose 173 65 - 199 [place] mg/dL [facility] Comment: Supplemental ranges: <140 mg/dL before meals <180 mg/dL all other times of the day Specimen Anatomical Collection Method Collection Time Receive d Time (Source) Location / / Volume Laterality Blood specimen 02/04/2019 7:16 PM 019 7:16 (specimen) EDT PM EDT Trip Corona MD POINT OF CARE TEST ORDERABLE S Performing Organization Address City/State/Z[place] [address] POCT Glucose (02/04/2019 6:10 PM EDT) athologist Signature POC Glucose 146 65 - 199 [place] mg/dL [facility] Comment: Supplemental ranges: <140 mg/dL before meals <180 mg/dL all other times of the day Specimen Anatomical Collection Method Collection Time Receive d Time (Source) Location / / Volume Laterality Blood specimen 02/04/2019 6:10 PM 019 6:10 (specimen) EDT PM EDT Trip Corona MD POINT OF CARE TEST ORDERABLE S Performing Organization Address City/State/ZIP Code Phon e Number [address] POCT Glucose (02/04/2019 5:14 PM EDT) athologist Signature POC Glucose 141 65 - 199 [place] mg/dL [facility] Comment: Supplemental ranges: <140 mg/dL before meals <180 mg/dL all other times of the day Specimen Anatomical Collection Method Collection Time Receive d Time (Source) Location / / Volume Laterality Blood specimen 02/04/2019 5:14 PM 019 5:14 (specimen) EDT PM EDT Trip Corona MD POINT OF CARE TEST ORDERABLE S Performing Organization Address City/State/ZIP Code Phon e Number [address] POCT Glucose (02/04/2019 4:14 PM EDT) athologist Signature POC Glucose 166 65 - 199 [place] mg/dL [facility] Comment: Supplemental ranges: <140 mg/dL before meals <180 mg/dL all other times of the day Specimen Anatomical Collection Method Collection Time Receive d Time (Source) Location / / Volume Laterality Blood specimen 02/04/2019 4:14 PM 019 4:14 (specimen) EDT PM EDT Trip Corona MD POINT OF CARE TEST ORDERABLE S Performing Organization Address City/State/ZIP Code Phon e Number [address] POCT Glucose (02/04/2019 2:58 PM EDT) athologist Signature POC Glucose 180 65 - 199 [place] mg/dL [facility] Comment: Supplemental ranges: <140 mg/dL before meals <180 mg/dL all other times of the day Specimen Anatomical Collection Method Collection Time Receive d Time (Source) Location / / Volume Laterality Blood specimen 02/04/2019 2:58 PM 019 2:58 (specimen) EDT PM EDT Trip Corona MD POINT OF CARE TEST ORDERABLE S Performing Organization Address City/State/Z[place] [address] POCT Glucose (02/04/2019 1:49 PM EDT) P athologist Signature POC Glucose 199 65 - 199 [place] mg/dL [facility] Comment: Supplemental ranges: <140 mg/dL before meals <180 mg/dL all other times of the day Specimen Anatomical Collection Method Collection Time Receive d Time (Source) Location / / Volume Laterality Blood specimen 02/04/2019 1:49 PM 019 1:49 (specimen) EDT PM EDT Trip Corona MD POINT OF CARE TEST ORDERABLE S Performing Organization Address City/State/Z[place] [address] (ABNORMAL) POCT Glucose (02/04/2019 1:05 PM EDT) P athologist Signature POC Glucose 278 (H) 65 - 199 [place] mg/dL [facility] Comment: Supplemental ranges: <140 mg/dL before meals <180 mg/dL all other times of the day Specimen Anatomical Collection Method Collection Time Receive d Time (Source) Location / / Volume Laterality Blood specimen 02/04/2019 1:05 PM 019 1:05 (specimen) EDT PM EDT Trip Corona MD POINT OF CARE TEST ORDERABLE S Performing Organization Address City/State/Z[place] [address] (ABNORMAL) POCT Glucose (02/04/2019 12:08 PM EDT) P athologist Signature POC Glucose 239 (H) 65 - 199 [facility] Comment: Supplemental ranges: <140 mg/dL before meals <180 mg/dL all other times of the day Specimen Anatomical Collection Method Collection Time Receive d Time (Source) Location / / Volume Laterality Blood specimen 02/04/2019 12:08 9 (specimen) PM EDT 12:08 PM EDT Trip Corona MD POINT OF CARE TEST ORDERABLE S Performing Organization Address City/State/ZIP Code Phon e Number [address] (ABNORMAL) POCT Glucose (02/04/2019 10:50 AM EDT) athologist Signature POC Glucose 249 (H) 65 - 199 [facility] Comment: Supplemental ranges: <140 mg/dL before meals <180 mg/dL all other times of the day Specimen Anatomical Collection Method Collection Time Receive d Time (Source) Location / / Volume Laterality Blood specimen 02/04/2019 10:50 9 (specimen) AM EDT 10:50 AM EDT Trip Corona MD POINT OF CARE TEST ORDERABLE S Performing Organization Address City/State/ZIP Code Phon e Number [address] (ABNORMAL) POCT Glucose (02/04/2019 10:06 AM EDT) athologist Signature POC Glucose 279 (H) 65 - 199 [facility] Comment: Supplemental ranges: <140 mg/dL before meals <180 mg/dL all other times of the day Specimen Anatomical Collection Method Collection Time Receive d Time (Source) Location / / Volume Laterality Blood specimen 02/04/2019 10:06 9 (specimen) AM EDT 10:06 AM EDT Trip Corona MD POINT OF CARE TEST ORDERABLE S Performing Organization Address City/State/Z[place] [address] (ABNORMAL) POCT Glucose (02/04/2019 9:09 AM EDT) P athologist Signature POC Glucose 282 (H) 65 - 199 [facility] Comment: Supplemental ranges: <140 mg/dL before meals <180 mg/dL all other times of the day Specimen Anatomical Collection Method Collection Time Receive d Time (Source) Location / / Volume Laterality Blood specimen 02/04/2019 9:09 AM 019 9:09 (specimen) EDT AM EDT Trip Corona MD POINT OF CARE TEST ORDERABLE S Performing Organization Address City/State/Z[place] [address] Potassium (02/04/2019 9:00 AM EDT) athologist Signature Potassium 4.6 3.5 - 5.0 [facility] mmol/L [facility] Comment: Please note: ??Patients with WBC [...] Corona MD CHEMISTRY ORDERABLES Performing Organization Address City/[facility]/[place] [address] POCT Glucose (02/04/2019 8:07 AM EDT) athologist Signature POC Glucose 180 65 - 199 [facility] Comment: Supplemental ranges: <140 mg/dL before meals <180 mg/dL all other times of the day Specimen Anatomical Collection Method Collection Time Receive d Time (Source) Location / / Volume Laterality Blood specimen 02/04/2019 8:07 AM 019 8:07 (specimen) EDT AM EDT Trip Corona MD POINT OF CARE TEST ORDERABLE S Performing Organization Address City/State/Z[place] [address] POCT Glucose (02/04/2019 6:52 AM EDT) athologist Signature POC Glucose 186 65 - 199 [facility] Comment: Supplemental ranges: <140 mg/dL before meals <180 mg/dL all other times of the day Specimen Anatomical Collection Method Collection Time Receive d Time (Source) Location / / Volume Laterality Blood specimen 02/04/2019 6:52 AM 019 6:52 (specimen) EDT AM EDT Trip Corona MD POINT OF CARE TEST ORDERABLE S Performing Organization Address City/State/Z[place] [address] POCT Glucose (02/04/2019 5:46 AM EDT) athologist Signature POC Glucose 165 65 - 199 [facility] Comment: Supplemental ranges: <140 mg/dL before meals <180 mg/dL all other times of the day Specimen Anatomical Collection Method Collection Time Receive d Time (Source) Location / / Volume Laterality Blood specimen 02/04/2019 5:46 AM 019 5:46 (specimen) EDT AM EDT Trip Corona MD POINT OF CARE TEST ORDERABLE S Performing Organization Address City/State/[place] [address] Potassium (02/04/2019 4:35 AM EDT) athologist Signature Potassium 4.1 3.5 - 5.0 [facility] mmol/L [facility] Comment: Please note: ??Patients with WBC [...] Organization Address City/State/ZIP Code Phon e Number [address] POCT Glucose (02/04/2019 4:25 AM EDT) athologist Signature POC Glucose 157 65 - 199 [facility] [place] mg/dL [facility] Comment: Supplemental ranges: <140 mg/dL before meals <180 mg/dL all other times of the day Specimen Anatomical Collection Method Collection Time Receive d Time (Source) Location / / Volume Laterality Blood specimen 02/04/2019 4:25 AM 019 4:25 (specimen) EDT AM EDT Trip Corona MD POINT OF CARE TEST ORDERABLE S Performing Organization Address City/[facility]/ZIP Code Phon e Number [address] POCT Glucose (02/04/2019 3:27 AM EDT) athologist Signature POC Glucose 141 65 - 199 [facility] Comment: Supplemental ranges: <140 mg/dL before meals <180 mg/dL all other times of the day Specimen Anatomical Collection Method Collection Time Receive d Time (Source) Location / / Volume Laterality Blood specimen 02/04/2019 3:27 AM 019 3:27 (specimen) EDT AM EDT Trip Corona MD POINT OF CARE TEST ORDERABLE S Performing Organization Address City/State/ZIP Code Phon e Number [address] POCT Glucose (02/04/2019 2:18 AM EDT) athologist Signature POC Glucose 135 65 - 199 [facility] [place] mg/dL [facility] Comment: Supplemental ranges: <140 mg/dL before meals <180 mg/dL all other times of the day Specimen Anatomical Collection Method Collection Time Receive d Time (Source) Location / / Volume Laterality Blood specimen 02/04/2019 2:18 AM 019 2:18 (specimen) EDT AM EDT Trip Corona MD POINT OF CARE TEST ORDERABLE S Performing Organization Address City/State/[place] [address] POCT Glucose (02/04/2019 1:03 AM EDT) athologist Signature POC Glucose 117 65 - 199 [place] mg/dL [facility] Comment: Supplemental ranges: <140 mg/dL before meals <180 mg/dL all other times of the day Specimen Anatomical Collection Method Collection Time Receive d Time (Source) Location / / Volume Laterality Blood specimen 02/04/2019 1:03 AM 019 1:03 (specimen) EDT AM EDT Trip Corona MD POINT OF CARE TEST ORDERABLE S Performing Organization Address City/State/[place] [address] POCT Glucose (02/04/2019 12:15 AM EDT) athologist Signature POC Glucose 137 65 - 199 [place] mg/dL [facility] Comment: Supplemental ranges: <140 mg/dL before meals <180 mg/dL all other times of the day Specimen Anatomical Collection Method Collection Time Receive d Time (Source) Location / / Volume Laterality Blood specimen 02/04/2019 12:15 9 (specimen) AM EDT 12:15 AM EDT Trip Corona MD POINT OF CARE TEST ORDERABLE S Performing Organization Address City/State/[place] [address] POCT Glucose (02/03/2019 11:12 PM EDT) athologist Signature POC Glucose 164 65 - 199 [place] mg/dL [facility] Comment: Supplemental ranges: <140 mg/dL before meals <180 mg/dL all other times of the day Specimen Anatomical Collection Method Collection Time Receive d Time (Source) Location / / Volume Laterality Blood specimen 02/03/2019 11:12 9 (specimen) PM EDT 11:12 PM EDT Trip Corona MD POINT OF CARE TEST ORDERABLE S Performing Organization Address City/State/[place] [address] POCT Glucose (02/03/2019 8:06 PM EDT) athologist Signature POC Glucose 163 65 - 199 [place] mg/dL [facility] Comment: Supplemental ranges: <140 mg/dL before meals <180 mg/dL all other times of the day Specimen Anatomical Collection Method Collection Time Receive d Time (Source) Location / / Volume Laterality Blood specimen 02/03/2019 8:06 PM 019 8:06 (specimen) EDT PM EDT Trip Corona MD POINT OF CARE TEST ORDERABLE S Performing Organization Address City/State/[place] [address] POCT Glucose (02/03/2019 6:22 PM EDT) athologist Signature POC Glucose 175 65 - 199 [place] mg/dL [facility] Comment: Supplemental ranges: <140 mg/dL before meals <180 mg/dL all other times of the day Specimen Anatomical Collection Method Collection Time Receive d Time (Source) Location / / Volume Laterality Blood specimen 02/03/2019 6:22 PM 019 6:22 (specimen) EDT PM EDT Trip Corona MD POINT OF CARE TEST ORDERABLE S Performing Organization Address City/State/[place] [address] POCT Glucose (02/03/2019 5:26 PM EDT) athologist Signature POC Glucose 158 65 - 199 [place] mg/dL [facility] Comment: Supplemental ranges: <140 mg/dL before meals <180 mg/dL all other times of the day Specimen Anatomical Collection Method Collection Time Receive d Time (Source) Location / / Volume Laterality Blood specimen 02/03/2019 5:26 PM 019 5:26 (specimen) EDT PM EDT Trip Corona MD POINT OF CARE TEST ORDERABLE S Performing Organization Address City/State/[place] [address] POCT Glucose (02/03/2019 4:01 PM EDT) athologist Signature POC Glucose 187 65 - 199 [facility] [place] mg/dL [facility] Comment: Supplemental ranges: <140 mg/dL before meals <180 mg/dL all other times of the day Specimen Anatomical Collection Method Collection Time Receive d Time (Source) Location / / Volume Laterality Blood specimen 02/03/2019 4:01 PM 019 4:01 (specimen) EDT PM EDT Trip Corona MD POINT OF CARE TEST ORDERABLE S Performing Organization Address City/State/[place] [address] (ABNORMAL) POCT Glucose (02/03/2019 3:04 PM EDT) athologist Signature POC Glucose 223 (H) 65 - 199 [facility] Comment: Supplemental ranges: <140 mg/dL before meals <180 mg/dL all other times of the day Specimen Anatomical Collection Method Collection Time Receive d Time (Source) Location / / Volume Laterality Blood specimen 02/03/2019 3:04 PM 019 3:04 (specimen) EDT PM EDT Trip Corona MD POINT OF CARE TEST ORDERABLE S Performing Organization Address City/State/[place] [address] (ABNORMAL) POCT Glucose (02/03/2019 2:01 PM EDT) athologist Signature POC Glucose 230 (H) 65 - 199 [facility] [place] mg/dL [facility] Comment: Supplemental ranges: <140 mg/dL before meals <180 mg/dL all other times of the day Specimen Anatomical Collection Method Collection Time Receive d Time (Source) Location / / Volume Laterality Blood specimen 02/03/2019 2:01 PM 019 2:01 (specimen) EDT PM EDT Trip Corona MD POINT OF CARE TEST ORDERABLE S Performing Organization Address City/State/[place] [address] (ABNORMAL) POCT Glucose (02/03/2019 1:03 PM EDT) P athologist Signature POC Glucose 248 (H) 65 - 199 [facility] Comment: Supplemental ranges: <140 mg/dL before meals <180 mg/dL all other times of the day Specimen Anatomical Collection Method Collection Time Receive d Time (Source) Location / / Volume Laterality Blood specimen 02/03/2019 1:03 PM 019 1:03 (specimen) EDT PM EDT Trip Corona MD POINT OF CARE TEST ORDERABLE S Performing Organization Address City/[facility]/[place]IP [place] [address] (ABNORMAL) POCT Glucose (02/03/2019 12:31 PM EDT) athologist Signature POC Glucose 260 (H) 65 - 199 [place] mg/dL [facility] Comment: Supplemental ranges: <140 mg/dL before meals <180 mg/dL all other times of the day Specimen Anatomical Collection Method Collection Time Receive d Time (Source) Location / / Volume Laterality Blood specimen 02/03/2019 12:31 9 (specimen) PM EDT 12:31 PM EDT Trip Corona MD POINT OF CARE TEST ORDERABLE S Performing Organization Address City/State/[place] [address] (ABNORMAL) POCT Glucose (02/03/2019 12:03 PM EDT) P athologist Signature POC Glucose 252 (H) 65 - 199 [facility] Comment: Supplemental ranges: <140 mg/dL before meals <180 mg/dL all other times of the day Specimen Anatomical Collection Method Collection Time Receive d Time (Source) Location / / Volume Laterality Blood specimen 02/03/2019 12:03 9 (specimen) PM EDT 12:03 PM EDT Trip Corona MD POINT OF CARE TEST ORDERABLE S Performing Organization Address City/State/[place] [address] (ABNORMAL) POCT Glucose (02/03/2019 11:27 AM EDT) athologist Signature POC Glucose 260 (H) 65 - 199 [facility] Comment: Supplemental ranges: <140 mg/dL before meals <180 mg/dL all other times of the day Specimen Anatomical Collection Method Collection Time Receive d Time (Source) Location / / Volume Laterality Blood specimen 02/03/2019 11:27 9 (specimen) AM EDT 11:27 AM EDT Trip Corona MD POINT OF CARE TEST ORDERABLE S Performing Organization Address City/[facility]/[place]IP [place] [address] (ABNORMAL) POCT Glucose (02/03/2019 9:59 AM EDT) athologist Signature POC Glucose 227 (H) 65 - 199 [facility] Comment: Supplemental ranges: <140 mg/dL before meals <180 mg/dL all other times of the day Specimen Anatomical Collection Method Collection Time Receive d Time (Source) Location / / Volume Laterality Blood specimen 02/03/2019 9:59 AM 019 9:59 (specimen) EDT AM EDT Trip Corona MD POINT OF CARE TEST ORDERABLE S Performing Organization Address City/State/[place] [address] Potassium (02/03/2019 9:28 AM EDT) athologist Signature Potassium 4.6 3.5 - 5.0 [facility]/L [facility] Comment: Please note: ??Patients with WBC [...] Organization Address City/State/ZIP Code Phon e Number [address] POCT Glucose (02/03/2019 8:57 AM EDT) athologist Signature POC Glucose 195 65 - 199 [facility] mg/dL [facility] Comment: Supplemental ranges: <140 mg/dL before meals <180 mg/dL all other times of the day Specimen Anatomical Collection Method Collection Time Receive d Time (Source) Location / / Volume Laterality Blood specimen 02/03/2019 8:57 AM 019 8:57 (specimen) EDT AM EDT Trip Corona MD POINT OF CARE TEST ORDERABLE S Performing Organization Address City/State/[place] [address] XR Chest PA & [...] e number below. ? Electronically signed by: Alexander Garcia [facility] ([phone]), at 02/03/2019 1:51 PM Narrative 02/03/2019 1:51 PM EDT EXAMINATION: XR [...] this report, please contact e number below. Electronically signed by: Alexander Garcia [facility] ([phone]), at 02/03/2019 1:51 PM Trip Corona MD IMG DX ORDERABLES POCT Glucose (02/03/2019 7:45 AM EDT) athologist Signature POC Glucose 177 65 - 199 [facility] mg/dL [facility] Comment: Supplemental ranges: <140 mg/dL before meals <180 mg/dL all other times of the day Specimen Anatomical Collection Method Collection Time Receive d Time (Source) Location / / Volume Laterality Blood specimen 02/03/2019 7:45 AM 019 7:45 (specimen) EDT AM EDT Trip Corona MD POINT OF CARE TEST ORDERABLE S Performing Organization Address City/State/ZIP [place] [address] POCT Glucose (02/03/2019 6:47 AM EDT) athologist Signature POC Glucose 181 65 - 199 [facility] mg/dL [facility] Comment: Supplemental ranges: <140 mg/dL before meals <180 mg/dL all other times of the day Specimen Anatomical Collection Method Collection Time Receive d Time (Source) Location / / Volume Laterality Blood specimen 02/03/2019 6:47 AM 019 6:47 (specimen) EDT AM EDT Trip Corona MD POINT OF CARE TEST ORDERABLE S Performing Organization Address City/State/ZIP Code Phon e Number [address] POCT Glucose (02/03/2019 5:44 AM EDT) athologist Signature POC Glucose 169 65 - 199 [place] mg/dL [facility] Comment: Supplemental ranges: <140 mg/dL before meals <180 mg/dL all other times of the day Specimen Anatomical Collection Method Collection Time Receive d Time (Source) Location / / Volume Laterality Blood specimen 02/03/2019 5:44 AM 019 5:44 (specimen) EDT AM EDT Trip Corona MD POINT OF CARE TEST ORDERABLE S Performing Organization Address City/State/ZIP Code Phon e Number [address] POCT Glucose (02/03/2019 4:48 AM EDT) athologist Signature POC Glucose 185 65 - 199 [place] mg/dL [facility] Comment: Supplemental ranges: <140 mg/dL before meals <180 mg/dL all other times of the day Specimen Anatomical Collection Method Collection Time Receive d Time (Source) Location / / Volume Laterality Blood specimen 02/03/2019 4:48 AM 019 4:48 (specimen) EDT AM EDT Trip Corona MD POINT OF CARE TEST ORDERABLE S Performing Organization Address City/State/ZIP Code Phon e Number [address] POCT Glucose (02/03/2019 3:29 AM EDT) athologist Signature POC Glucose 158 65 - 199 [place] mg/dL [facility] Comment: Supplemental ranges: <140 mg/dL before meals <180 mg/dL all other times of the day Specimen Anatomical Collection Method Collection Time Receive d Time (Source) Location / / Volume Laterality Blood specimen 02/03/2019 3:29 AM 019 3:29 (specimen) EDT AM EDT Trip Corona MD POINT OF CARE TEST ORDERABLE S Performing Organization Address City/[facility]/ZIP Code Phon e Number [address] POCT Glucose (02/03/2019 2:28 AM EDT) P athologist Signature POC Glucose 139 65 - 199 [facility] Comment: Supplemental ranges: <140 mg/dL before meals <180 mg/dL all other times of the day Specimen Anatomical Collection Method Collection Time Receive d Time (Source) Location / / Volume Laterality Blood specimen 02/03/2019 2:28 AM 019 2:28 (specimen) EDT AM EDT Trip Corona MD POINT OF CARE TEST ORDERABLE S Performing Organization Address City/State/ZIP Code Phon e Number [address] (ABNORMAL) Differential, Automated (02/03/2019 2:27 AM EDT) Patholo gist Method Time Signature Neutrophils % 69.3 % [facility] Neutr Abs (ANC) 12.62 (H) 1.70 - [facility] 6.10 [facility] x10(3)/[facility] L LABORATORY Lymphocytes % 20.0 % [facility] Lymphocytes Abs 3.6 (H) 0.9 - 3.2 [facility] x10(3)/[facility] LABORATORY Monocytes % 9.6 % [facility] Monocyte Abs 1.8 (H) 0.3 - 0.9 [facility] x10(3)/[facility] LABORATORY Eosinophils % 0.4 % [facility] Eosinophils Abs 0.1 0.0 - 0.4 [facility] x10(3)/[facility] LABORATORY Basophils % 0.3 % [facility] Basophils Abs 0.0 0.0 - 0.1 [facility] x10(3)/[facility] LABORATORY Immature Gran % 0.40 % [facility] Comment: Immature granulocytes(IG's)percentage an d absolute count will include metamyelocytes, myelocytes, and promyelo cytes. Blood smears from CBCs yielding IG's will be scanned manually for concor dance. If this scan disagrees with the automated IG or if promyelocytes are not ed, a manual differential will be performed. Corinne Gran Abs 0.08 (H) 0.00 - 0.04 x10(3)/[facility] LABORATORY Specimen Anatomical Collection Method Collection Time Receive d Time (Source) Location / / Volume Laterality Blood specimen 02/03/2019 2:27 AM 019 3:12 (specimen) EDT AM EDT Resulting Agency Comment Spec In [facility] [place] [facility] HEMATOLOGY ORDERABLES Performing Organization Address City/State/Z[place] [address] (ABNORMAL) Hemogram (02/03/2019 2:27 AM EDT) P athologist Signature WBC 18.2 (H) 4.0 - 9.5 [facility] x10(3)/[facility] LABORATORY RBC 3.24 (L) 4.58 - [facility] 5.54 [facility] x10(6)/[facility] LABORATORY Hemoglobin 9.7 (L) 13.7 - [facility] 16.5 gm/dL [facility] Comment: This result has been called to DAVID DODD by SHANIQUA MAXWELL on 02 03 2019 at 0357, and has been read back. Hematocrit 29.3 (L) 40.5 - 48.5 % [facility] MCV 90.4 82.9 - 93.1 fL [facility] MCH 29.9 27.5 - 32.1 pg [facility] MCHC 33.1 32.0 - 35.7 gm/dL [facility]AT[facility] Platelets 170 145 - 357 x10(3)/[facility] LABORATORY RDWSD 46.8 (H) 36.0 - 45.0 fL [facility] RDWCV 14.0 (H) 11.4 - 13.8 % [facility] MPV 11.1 7.6 - 12.9 fL [facility] nRBC % Auto 0.0 % [facility] nRBC Abs Auto 0.000 0.000 - 0.000 x10(3)/[facility] LABORATORY Specimen Anatomical Collection Method Collection Time Receive d Time (Source) Location / / Volume Laterality Blood specimen 02/03/2019 2:27 AM 019 3:12 (specimen) EDT AM EDT Resulting Agency Comment Spec In [facility] [place] [facility] HEMATOLOGY ORDERABLES Performing Organization Address City/State/ZIP [place] [address] (ABNORMAL) Basic Metabolic Panel (non-fasting) (02/03/2019 2:27 AM EDT) P athologist Signature Glucose Lvl 152 65 - 199 [facility] mg/dL [facility] Comment: Diabetes: >=200 mg/dL plus symp toms BUN 25 (H) 10 - 20 mg/dL [facility] Creatinine 0.88 0.80 - 1.50 mg/dL [facility] Sodium 135 135 - 145 mmol/L [facility] Potassium 4.3 3.5 - 5.0 mmol/L [facility] Comment: Please note: ??Patients with WBC >100,00 0 may have falsely elevated Potassium levels. ??For accurate Potassium quantif ication in these patients send serum separator tube (gold top) for subsequent determinations. ??Contact the Clinical Chemistry Laboratory if there are any qu estions. Chloride 100 98 - 107 mmol/L [facility] CO2 23 22 - 31 mmol/L [facility] Comment: result rechecked- Anion Gap 12 5 - 15 mmol/L [facility] Calcium 7.9 (L) 8.5 - 10.5 mg/dL [facility] Estimated GFR 90 >=60 mL/min/1.73 m?? [facility] Comment: The eGFR was calculated using the CKD-EP I equation. As with all creatinine based estimates of kidney function, eGFR values calculated with the CKD-EPI equation are not accurate in patients wi th acute kidney failure, extremes of body mass or the acutely ill. [email or web address] eGFR 104 >=60 mL/min/1.73 m?? [facility] Comment: The eGFR was calculated using the CKD-EP I equation. As with all creatinine based estimates of kidney function, eGFR values calculated with the CKD-EPI equation are not accurate in patients wi th acute kidney failure, extremes of body mass or the acutely ill. [email or web address] Specimen Anatomical Collection Method Collection Time Receive d Time (Source) Location / / Volume Laterality Blood specimen 02/03/2019 2:27 AM 019 3:12 (specimen) EDT AM EDT Resulting Agency Comment Spec In Lab Trip Corona MD CHEMISTRY ORDERABLES Performing Organization Address City/State/Z[place] [address] EKG 12 Lead (02/03/2019 1:33 AM EDT) Component Value Ref Range Test Analysis Performed Pathologis t Method Time At Signature Ventricular rate 144 BPM MUSE SYSTEM Atrial Rate 120 BPM MUSE SYSTEM QRS Duration 116 ms MUSE SYSTEM Q-T Interval 314 ms MUSE SYSTEM QTC Calculated 486 ms MUSE SYSTEM (Bezet) Calculated R [place] -69 degrees MUSE SYSTEM Calculated T [place] 112 degrees MUSE SYSTEM INTERPRETATION Atrial fibrillation with rapid ventricular response MUSE SYSTEM Left axis deviation Anterolateral infarct (cited on or before 21-JUL-2018) Abnormal ECG When compared with ECG of 31-JAN-2019 20:20, Atrial fibrillation has replaced Sinus rhythm Confirmed by MD Barry, Onofre Jung ([id number]) on 02/03/2019 10:47: 22 AM Specimen Anatomical Collection Method Collection Time Receive d Time (Source) Location / / Volume Laterality 02/03/2019 1:33 AM 9 EDT 10:47 AM EDT Trip Corona MD ECG ORDERABLES Performing Organization Address City/State/ZIP Code Phon e Number MUSE SYSTEM POCT Glucose (02/03/2019 1:30 AM EDT) P athologist Signature POC Glucose 143 65 - 199 [facility] [place] mg/dL [facility] Comment: Supplemental ranges: <140 mg/dL before meals <180 mg/dL all other times of the day Specimen Anatomical Collection Method Collection Time Receive d Time (Source) Location / / Volume Laterality Blood specimen 02/03/2019 1:30 AM 019 1:30 (specimen) EDT AM EDT Trip Corona MD POINT OF CARE TEST ORDERABLE S Performing Organization Address City/State/Z[place] [address] POCT Glucose (02/03/2019 12:31 AM EDT) athologist Signature POC Glucose 130 65 - 199 [facility] Comment: Supplemental ranges: <140 mg/dL before meals <180 mg/dL all other times of the day Specimen Anatomical Collection Method Collection Time Receive d Time (Source) Location / / Volume Laterality Blood specimen 02/03/2019 12:31 9 (specimen) AM EDT 12:31 AM EDT Trip Corona MD POINT OF CARE TEST ORDERABLE S Performing Organization Address City/State/Z[place] [address] POCT Glucose (02/02/2019 11:30 PM EDT) athologist Signature POC Glucose 129 65 - 199 [facility] [place] mg/dL [facility] Comment: Supplemental ranges: <140 mg/dL before meals <180 mg/dL all other times of the day Specimen Anatomical Collection Method Collection Time Receive d Time (Source) Location / / Volume Laterality Blood specimen 02/02/2019 11:30 9 (specimen) PM EDT 11:30 PM EDT Trip Corona MD POINT OF CARE TEST ORDERABLE S Performing Organization Address City/State/Z[place] [address] POCT Glucose (02/02/2019 10:35 PM EDT) athologist Signature POC Glucose 150 65 - 199 [facility] [place] mg/dL [facility] Comment: Supplemental ranges: <140 mg/dL before meals <180 mg/dL all other times of the day Specimen Anatomical Collection Method Collection Time Receive d Time (Source) Location / / Volume Laterality Blood specimen 02/02/2019 10:35 9 (specimen) PM EDT 10:35 PM EDT Trip Corona MD POINT OF CARE TEST ORDERABLE S Performing Organization Address City/State/ZIP [place] [address] POCT Glucose (02/02/2019 9:24 PM EDT) athologist Signature POC Glucose 158 65 - 199 [facility] [place] mg/dL [facility] Comment: Supplemental ranges: <140 mg/dL before meals <180 mg/dL all other times of the day Specimen Anatomical Collection Method Collection Time Receive d Time (Source) Location / / Volume Laterality Blood specimen 02/02/2019 9:24 PM 019 9:24 (specimen) EDT PM EDT Trip Corona MD POINT OF CARE TEST ORDERABLE S Performing Organization Address City/State/ZIP [place] [address] POCT Glucose (02/02/2019 8:24 PM EDT) athologist Signature POC Glucose 181 65 - 199 [facility] [place] mg/dL [facility] Comment: Supplemental ranges: <140 mg/dL before meals <180 mg/dL all other times of the day Specimen Anatomical Collection Method Collection Time Receive d Time (Source) Location / / Volume Laterality Blood specimen 02/02/2019 8:24 PM 019 8:24 (specimen) EDT PM EDT Trip Corona MD POINT OF CARE TEST ORDERABLE S Performing Organization Address City/State/[place] [address] (ABNORMAL) POCT Glucose (02/02/2019 6:52 PM EDT) athologist Signature POC Glucose 218 (H) 65 - 199 [place] mg/dL [facility] Comment: Supplemental ranges: <140 mg/dL before meals <180 mg/dL all other times of the day Specimen Anatomical Collection Method Collection Time Receive d Time (Source) Location / / Volume Laterality Blood specimen 02/02/2019 6:52 PM 019 6:52 (specimen) EDT PM EDT Trip Corona MD POINT OF CARE TEST ORDERABLE S Performing Organization Address City/State/[place] [address] (ABNORMAL) POCT Glucose (02/02/2019 5:46 PM EDT) athologist Signature POC Glucose 217 (H) 65 - 199 [facility] [place] mg/dL [facility] Comment: Supplemental ranges: <140 mg/dL before meals <180 mg/dL all other times of the day Specimen Anatomical Collection Method Collection Time Receive d Time (Source) Location / / Volume Laterality Blood specimen 02/02/2019 5:46 PM 019 5:46 (specimen) EDT PM EDT Trip Corona MD POINT OF CARE TEST ORDERABLE S Performing Organization Address City/State/[place] [address] POCT Glucose (02/02/2019 4:48 PM EDT) athologist Signature POC Glucose 187 65 - 199 [place] mg/dL [facility] Comment: Supplemental ranges: <140 mg/dL before meals <180 mg/dL all other times of the day Specimen Anatomical Collection Method Collection Time Receive d Time (Source) Location / / Volume Laterality Blood specimen 02/02/2019 4:48 PM 019 4:48 (specimen) EDT PM EDT Trip Corona MD POINT OF CARE TEST ORDERABLE S Performing Organization Address City/[facility]/[place]IP [place] [address] (ABNORMAL) POCT Glucose (02/02/2019 3:49 PM EDT) P athologist Signature POC Glucose 222 (H) 65 - 199 [facility] Comment: Supplemental ranges: <140 mg/dL before meals <180 mg/dL all other times of the day Specimen Anatomical Collection Method Collection Time Receive d Time (Source) Location / / Volume Laterality Blood specimen 02/02/2019 3:49 PM 019 3:49 (specimen) EDT PM EDT Trip Corona MD POINT OF CARE TEST ORDERABLE S Performing Organization Address City/[facility]/[place] [address] (ABNORMAL) POCT Glucose (02/02/2019 2:51 PM EDT) P athologist Signature POC Glucose 232 (H) 65 - 199 [facility] Comment: Supplemental ranges: <140 mg/dL before meals <180 mg/dL all other times of the day Specimen Anatomical Collection Method Collection Time Receive d Time (Source) Location / / Volume Laterality Blood specimen 02/02/2019 2:51 PM 019 2:51 (specimen) EDT PM EDT Trip Corona MD POINT OF CARE TEST ORDERABLE S Performing Organization Address City/State/[place] [address] (ABNORMAL) POCT Glucose (02/02/2019 2:07 PM EDT) P athologist Signature POC Glucose 263 (H) 65 - 199 [facility] Comment: Supplemental ranges: <140 mg/dL before meals <180 mg/dL all other times of the day Specimen Anatomical Collection Method Collection Time Receive d Time (Source) Location / / Volume Laterality Blood specimen 02/02/2019 2:07 PM 019 2:07 (specimen) EDT PM EDT Trip Corona MD POINT OF CARE TEST ORDERABLE S Performing Organization Address City/State/Z[place] [address] (ABNORMAL) POCT Glucose (02/02/2019 1:01 PM EDT) athologist Signature POC Glucose 226 (H) 65 - 199 [facility] Comment: Supplemental ranges: <140 mg/dL before meals <180 mg/dL all other times of the day Specimen Anatomical Collection Method Collection Time Receive d Time (Source) Location / / Volume Laterality Blood specimen 02/02/2019 1:01 PM 019 1:01 (specimen) EDT PM EDT Trip Corona MD POINT OF CARE TEST ORDERABLE S Performing Organization Address City/State/Z[place] [address] POCT Glucose (02/02/2019 12:15 PM EDT) athologist Signature POC Glucose 182 65 - 199 [facility] Comment: Supplemental ranges: <140 mg/dL before meals <180 mg/dL all other times of the day Specimen Anatomical Collection Method Collection Time Receive d Time (Source) Location / / Volume Laterality Blood specimen 02/02/2019 12:15 9 (specimen) PM EDT 12:15 PM EDT Trip Corona MD POINT OF CARE TEST ORDERABLE S Performing Organization Address City/State/[place] [address] (ABNORMAL) Urinalysis Microscopic Exam (02/02/2019 11:49 AM EDT) P athologist Signature RBC UA 30 (H) 0 - 3 /HPF [facility] WBC UA 3 0 - 3 /HPF [facility] Hyaline Cast 3 (H) 0 - 2 /LPF [facility] Specimen (Source) Anatomical Collection Method Collection Time Re ceived Time Location / / Volume Laterality Urine specimen 02/02/2019 11:49 9 obtained via AM EDT 12:01 PM EDT indwelling urinary catheter (specimen) Resulting Agency Comment Spec In Lab Edward LEI URINE ORDERABLES Performing Organization Address City/[facility]/[place]IP [place] [address] (ABNORMAL) Urinalysis with reflex Culture (02/02/2019 11:49 AM EDT) [facility] gist Method Time Signature Glucose UA Negative Negative [facility] mg/dL [facility] Protein UA Negative Negative [facility] mg/dL [facility] Bilirubin UA Negative Negative [facility] mg/dL [facility] Comment: Clinical correlation required for positi ve Urine Bilirubin results as false positive may occur with some drugs and d rug related products. If a false positive is suspected a serum total bili steel should be considered if clinically indicated. Urobilinogen UA Normal Normal mg/dL [facility] pH UA 5.0 5.0 - 8.0 [facility] Blood UA Moderate (A) Negative mg/dL [facility] Ketones UA Negative Negative mg/dL [facility] Nitrite UA Negative Negative [facility] Leukocytes UA Negative Negative [facility] LABORATORY Appearance UA Clear Clear [facility] Spec Carpenter UA 1.019 1.002 - 1.030 [facility] Color UA Yellow Yellow [facility] Culture Reflexed No [facility] Specimen (Source) Anatomical Collection Method Collection Time Re ceived Time Location / / Volume Laterality Urine specimen 02/02/2019 11:49 9 obtained via AM EDT 12:01 PM EDT indwelling urinary catheter (specimen) Resulting Agency Comment Spec In Lab Trip Corona MD URINE ORDERABLES Performing Organization Address City/[facility]/ZIP Code Phon e Number [place] [id number] [facility] [address] [address] Blood culture (02/02/2019 10:05 AM EDT) Patholo gist Method Time Signature Blood Culture No growth SHANNAN STANTON at 5 days. [facility] Specimen Anatomical Collection Method Collection Time Receive d Time (Source) Location / / Volume Laterality Blood specimen 02/02/2019 10:05 9 (specimen) AM EDT 10:27 AM EDT Resulting Agency Comment Spec In Lab Trip Corona MD MICROBIOLOGY - BLOOD ORDERAB LES Performing Organization Address City/State/ZIP Code Phon e Number [address] (ABNORMAL) POCT Glucose (02/02/2019 10:00 AM EDT) athologist Signature POC Glucose 209 (H) 65 - 199 [place] mg/dL [facility] Comment: Supplemental ranges: <140 mg/dL before meals <180 mg/dL all other times of the day Specimen Anatomical Collection Method Collection Time Receive d Time (Source) Location / / Volume Laterality Blood specimen 02/02/2019 10:00 9 (specimen) AM EDT 10:00 AM EDT Trip Corona MD POINT OF CARE TEST ORDERABLE S Performing Organization Address City/State/ZIP Code Phon e Number [address] POCT Glucose (02/02/2019 7:40 AM EDT) athologist Signature POC Glucose 154 65 - 199 [place] mg/dL [facility] Comment: Supplemental ranges: <140 mg/dL before meals <180 mg/dL all other times of the day Specimen Anatomical Collection Method Collection Time Receive d Time (Source) Location / / Volume Laterality Blood specimen 02/02/2019 7:40 AM 019 7:40 (specimen) EDT AM EDT Trip Corona MD POINT OF CARE TEST ORDERABLE S Performing Organization Address City/State/Z[place] [address] POCT Glucose (02/02/2019 6:33 AM EDT) athologist Signature POC Glucose 158 65 - 199 [place] mg/dL [facility] Comment: Supplemental ranges: <140 mg/dL before meals <180 mg/dL all other times of the day Specimen Anatomical Collection Method Collection Time Receive d Time (Source) Location / / Volume Laterality Blood specimen 02/02/2019 6:33 AM 019 6:33 (specimen) EDT AM EDT Trip Corona MD POINT OF CARE TEST ORDERABLE S Performing Organization Address City/[facility]/ZIP Code Phon e Number [address] POCT Glucose (02/02/2019 4:23 AM EDT) athologist Signature POC Glucose 157 65 - 199 [facility] Comment: Supplemental ranges: <140 mg/dL before meals <180 mg/dL all other times of the day Specimen Anatomical Collection Method Collection Time Receive d Time (Source) Location / / Volume Laterality Blood specimen 02/02/2019 4:23 AM 019 4:23 (specimen) EDT AM EDT Trip Corona MD POINT OF CARE TEST ORDERABLE S Performing Organization Address City/[facility]/[place]IP [place] [address] Potassium (02/02/2019 4:15 AM EDT) athologist Signature Potassium 4.8 3.5 - 5.0 [facility] mmol/L [facility] Comment: Please note: ??Patients with WBC [...] Corona MD CHEMISTRY ORDERABLES Performing Organization Address City/[facility]/ZIP Code Phon e Number [address] POCT Glucose (02/02/2019 2:13 AM EDT) athologist Signature POC Glucose 141 65 - 199 [place] mg/dL [facility] Comment: Supplemental ranges: <140 mg/dL before meals <180 mg/dL all other times of the day Specimen Anatomical Collection Method Collection Time Receive d Time (Source) Location / / Volume Laterality Blood specimen 02/02/2019 2:13 AM 019 2:13 (specimen) EDT AM EDT Trip Corona MD POINT OF CARE TEST ORDERABLE S Performing Organization Address City/State/ZIP Code Phon e Number [address] POCT Glucose (02/02/2019 1:00 AM EDT) athologist Signature POC Glucose 146 65 - 199 [facility] [place] mg/dL [facility] Comment: Supplemental ranges: <140 mg/dL before meals <180 mg/dL all other times of the day Specimen Anatomical Collection Method Collection Time Receive d Time (Source) Location / / Volume Laterality Blood specimen 02/02/2019 1:00 AM 019 1:00 (specimen) EDT AM EDT Trip Corona MD POINT OF CARE TEST ORDERABLE S Performing Organization Address City/State/[place] [address] POCT Glucose (02/02/2019 12:08 AM EDT) athologist Signature POC Glucose 148 65 - 199 [place] [place] mg/dL [facility] Comment: Supplemental ranges: <140 mg/dL before meals <180 mg/dL all other times of the day Specimen Anatomical Collection Method Collection Time Receive d Time (Source) Location / / Volume Laterality Blood specimen 02/02/2019 12:08 9 (specimen) AM EDT 12:08 AM EDT Trip Corona MD POINT OF CARE TEST ORDERABLE S Performing Organization Address City/State/Z[place] [address] POCT Glucose (02/01/2019 11:03 PM EDT) athologist Signature POC Glucose 169 65 - 199 [place] mg/dL [facility] Comment: Supplemental ranges: <140 mg/dL before meals <180 mg/dL all other times of the day Specimen Anatomical Collection Method Collection Time Receive d Time (Source) Location / / Volume Laterality Blood specimen 02/01/2019 11:03 9 (specimen) PM EDT 11:03 PM EDT Trip Corona MD POINT OF CARE TEST ORDERABLE S Performing Organization Address City/State/ZIP Code Phon e Number [address] POCT Glucose (02/01/2019 10:25 PM EDT) athologist Signature POC Glucose 165 65 - 199 [facility] [place] mg/dL [facility] Comment: Supplemental ranges: <140 mg/dL before meals <180 mg/dL all other times of the day Specimen Anatomical Collection Method Collection Time Receive d Time (Source) Location / / Volume Laterality Blood specimen 02/01/2019 10:25 9 (specimen) PM EDT 10:25 PM EDT Trip Corona MD POINT OF CARE TEST ORDERABLE S Performing Organization Address City/State/Z[place] [address] POCT Glucose (02/01/2019 9:06 PM EDT) athologist Signature POC Glucose 182 65 - 199 [facility] [place] mg/dL [facility] Comment: Supplemental ranges: <140 mg/dL before meals <180 mg/dL all other times of the day Specimen Anatomical Collection Method Collection Time Receive d Time (Source) Location / / Volume Laterality Blood specimen 02/01/2019 9:06 PM 019 9:06 (specimen) EDT PM EDT Trip Corona MD POINT OF CARE TEST ORDERABLE S Performing Organization Address City/State/Z[place] [address] (ABNORMAL) POCT Glucose (02/01/2019 7:26 PM EDT) athologist Signature POC Glucose 202 (H) 65 - 199 [facility] [place] mg/dL [facility] Comment: Supplemental ranges: <140 mg/dL before meals <180 mg/dL all other times of the day Specimen Anatomical Collection Method Collection Time Receive d Time (Source) Location / / Volume Laterality Blood specimen 02/01/2019 7:26 PM 019 7:26 (specimen) EDT PM EDT Trip Corona MD POINT OF CARE TEST ORDERABLE S Performing Organization Address City/State/ZIP Code Phon e Number [address] (ABNORMAL) POCT Glucose (02/01/2019 6:12 PM EDT) athologist Signature POC Glucose 228 (H) 65 - 199 [facility] Comment: Supplemental ranges: <140 mg/dL before meals <180 mg/dL all other times of the day Specimen Anatomical Collection Method Collection Time Receive d Time (Source) Location / / Volume Laterality Blood specimen 02/01/2019 6:12 PM 019 6:12 (specimen) EDT PM EDT Trip Corona MD POINT OF CARE TEST ORDERABLE S Performing Organization Address City/State/Z[place] [address] POCT Glucose (02/01/2019 4:42 PM EDT) athologist Signature POC Glucose 177 65 - 199 [facility] mg/dL [facility] Comment: Supplemental ranges: <140 mg/dL before meals <180 mg/dL all other times of the day Specimen Anatomical Collection Method Collection Time Receive d Time (Source) Location / / Volume Laterality Blood specimen 02/01/2019 4:42 PM 019 4:42 (specimen) EDT PM EDT Trip Corona MD POINT OF CARE TEST ORDERABLE S Performing Organization Address City/State/Z[place] [address] POCT Glucose (02/01/2019 2:58 PM EDT) athologist Signature POC Glucose 172 65 - 199 [facility] Comment: Supplemental ranges: <140 mg/dL before meals <180 mg/dL all other times of the day Specimen Anatomical Collection Method Collection Time Receive d Time (Source) Location / / Volume Laterality Blood specimen 02/01/2019 2:58 PM 019 2:58 (specimen) EDT PM EDT Trip Corona MD POINT OF CARE TEST ORDERABLE S Performing Organization Address City/State/Z[place] [address] POCT Glucose (02/01/2019 1:10 PM EDT) athologist Signature POC Glucose 132 65 - 199 [facility] Comment: Supplemental ranges: <140 mg/dL before meals <180 mg/dL all other times of the day Specimen Anatomical Collection Method Collection Time Receive d Time (Source) Location / / Volume Laterality Blood specimen 02/01/2019 1:10 PM 019 1:10 (specimen) EDT PM EDT Trip Corona MD POINT OF CARE TEST ORDERABLE S Performing Organization Address City/State/Z[place] [address] POCT Glucose (02/01/2019 12:07 PM EDT) athologist Signature POC Glucose 109 65 - 199 [facility] mg/dL [facility] Comment: Supplemental ranges: <140 mg/dL before meals <180 mg/dL all other times of the day Specimen Anatomical Collection Method Collection Time Receive d Time (Source) Location / / Volume Laterality Blood specimen 02/01/2019 12:07 9 (specimen) PM EDT 12:07 PM EDT Trip Corona MD POINT OF CARE TEST ORDERABLE S Performing Organization Address City/State/Z[place] [address] POCT Glucose (02/01/2019 10:41 AM EDT) athologist Signature POC Glucose 108 65 - 199 [facility] Comment: Supplemental ranges: <140 mg/dL before meals <180 mg/dL all other times of the day Specimen Anatomical Collection Method Collection Time Receive d Time (Source) Location / / Volume Laterality Blood specimen 02/01/2019 10:41 9 (specimen) AM EDT 10:41 AM EDT Trip Corona MD POINT OF CARE TEST ORDERABLE S Performing Organization Address City/State/ZIP Code Phon e Number [address] POCT Glucose (02/01/2019 10:00 AM EDT) athologist Signature POC Glucose 83 65 - 199 [facility] Comment: Supplemental ranges: <140 mg/dL before meals <180 mg/dL all other times of the day Specimen Anatomical Collection Method Collection Time Receive d Time (Source) Location / / Volume Laterality Blood specimen 02/01/2019 10:00 9 (specimen) AM EDT 10:00 AM EDT Trip Corona MD POINT OF CARE TEST ORDERABLE S Performing Organization Address City/State/ZIP Code Phon e Number [address] POCT Glucose (02/01/2019 8:28 AM EDT) athologist Signature POC Glucose 116 65 - 199 [facility] Comment: Supplemental ranges: <140 mg/dL before meals <180 mg/dL all other times of the day Specimen Anatomical Collection Method Collection Time Receive d Time (Source) Location / / Volume Laterality Blood specimen 02/01/2019 8:28 AM 019 8:28 (specimen) EDT AM EDT Trip Corona MD POINT OF CARE TEST ORDERABLE S Performing Organization Address City/State/Z[place] [address] POCT Glucose (02/01/2019 8:04 AM EDT) P athologist Signature POC Glucose 120 65 - 199 [facility] mg/dL [facility] Comment: Supplemental ranges: <140 mg/dL before meals <180 mg/dL all other times of the day Specimen Anatomical Collection Method Collection Time Receive d Time (Source) Location / / Volume Laterality Blood specimen 02/01/2019 8:04 AM 019 8:04 (specimen) EDT AM EDT Trip Corona MD POINT OF CARE TEST ORDERABLE S Performing Organization Address City/State/Z[place] [address] POCT Glucose (02/01/2019 6:52 AM EDT) athologist Signature POC Glucose 153 65 - 199 [facility] Comment: Supplemental ranges: <140 mg/dL before meals <180 mg/dL all other times of the day Specimen Anatomical Collection Method Collection Time Receive d Time (Source) Location / / Volume Laterality Blood specimen 02/01/2019 6:52 AM 019 6:52 (specimen) EDT AM EDT Trip Corona MD POINT OF CARE TEST ORDERABLE S Performing Organization Address City/State/[place] [address] (ABNORMAL) BLOOD GAS 2 ARTERIAL (02/01/2019 5:58 AM EDT) Analysis Performed At Patho logist Time Signature pH Art 7.43 7.35 - [facility] 7.45 [facility] pCO2 Art 37 35 - 45 [facility] mmHg [facility] pO2 Art 106 (H) 85 - 104 [facility]ORATORY HCO3 Art 24.0 20.0 - [facility] 26.0 [facility] mmol/L [facility] BE Art -0.3 -3.0 - 3.0 [facility] mmol/L [facility] Hgb Blood Gas 12.3 (L) 13.7 - [facility] 16.5 gm/dL [facility] O2HB Art 96.6 94.0 - [facility] 97.0 % [facility] COHB Art 0.1 % [facility] Comment: Nonsmokers: 0.5-1.5% COHB Smokers: Variable, but usually less than 10% Toxic: 20-30% COHB Lethal: Greater than 60% COHB METHB Art 0.6 <=1.5 % [facility] Na Whole Blood 136 135 - 145 mmol/L [facility] K Whole Blood 4.8 3.5 - 5.0 mmol/L [facility] Comment: Please note: Patients with WBC >100,000 may have falsely elevated Potassium levels. Contact the Clinical Chemistry L aboratory if there are any questions. ICa Whole Blood 1.10 (L) 1.15 - 1.33 mmol/L [facility] Comment: Note: ??Total bilirubin higher than 20 m g/dL may lead to falsely low ionized calcium. CL Whole Blood 104 98 - 107 mmol/L [facility] Gluc Whole Bld 195 65 - 199 mg/dL [facility] Comment: Diabetes: >=200 mg/dL plus symp toms. Lactate WB 2.4 (H) 0.5 - 2.2 mmol/L [facility] FIO2 Art 40 % [facility] PF Ratio Art 265 [facility] Specimen Anatomical Collection Method Collection Time Receive d Time (Source) Location / / Volume Laterality Blood specimen 02/01/2019 5:58 AM 019 5:58 (specimen) EDT AM EDT Lizz Cabrera MD CHEMISTRY ORDERABLES Performing Organization Address City/State/[place] [address] POCT Glucose (02/01/2019 4:43 AM EDT) P athologist Signature POC Glucose 191 65 - 199 [facility] mg/dL [facility] Comment: Supplemental ranges: <140 mg/dL before meals <180 mg/dL all other times of the day Specimen Anatomical Collection Method Collection Time Receive d Time (Source) Location / / Volume Laterality Blood specimen 02/01/2019 4:43 AM 019 4:43 (specimen) EDT AM EDT Lizz Cabrera MD POINT OF CARE TEST ORDERABLE S Performing Organization Address City/State/Z[place] [address] (ABNORMAL) POCT Glucose (02/01/2019 3:23 AM EDT) P athologist Signature POC Glucose 225 (H) 65 - 199 [facility] mg/dL [facility] Comment: Supplemental ranges: <140 mg/dL before meals <180 mg/dL all other times of the day Specimen Anatomical Collection Method Collection Time Receive d Time (Source) Location / / Volume Laterality Blood specimen 02/01/2019 3:23 AM 019 3:23 (specimen) EDT AM EDT Lizz Cabrera MD POINT OF CARE TEST ORDERABLE S Performing Organization Address City/State/[place] [address] (ABNORMAL) BLOOD GAS 2 ARTERIAL (02/01/2019 1:54 AM EDT) Analysis Performed At Patho logist Time Signature pH Art 7.31 (L) 7.35 - [facility] 7.45 [facility] pCO2 Art 35 35 - 45 [facility] LABORATORY pO2 Art 93 85 - 104 [facility] LABORATORY HCO3 Art 17.3 (L) 20.0 - [facility] 26.0 [facility] mmol/L [facility] BE Art -9.0 (L) -3.0 - 3.0 [facility] mmol/L [facility] Hgb Blood Gas 13.0 (L) 13.7 - [facility] 16.5 gm/dL [facility] O2HB Art 94.8 94.0 - [facility] 97.0 % [facility] COHB Art 0.4 % [facility] Comment: Nonsmokers: 0.5-1.5% COHB Smokers: Variable, but usually less than 10% Toxic: 20-30% COHB Lethal: Greater than 60% COHB METHB Art 0.7 <=1.5 % [facility] Na Whole Blood 138 135 - 145 mmol/L [facility] K Whole Blood 4.3 3.5 - 5.0 mmol/L [facility] Comment: Please note: Patients with WBC >100,000 may have falsely elevated Potassium levels. Contact the Clinical Chemistry L aboratory if there are any questions. ICa Whole Blood 1.06 (L) 1.15 - 1.33 mmol/L [facility] Comment: Note: ??Total bilirubin higher than 20 m g/dL may lead to falsely low ionized calcium. CL Whole Blood 103 98 - 107 mmol/L [facility] Gluc Whole Bld 276 (H) 65 - 199 mg/dL [facility] Comment: Diabetes: >=200 mg/dL plus symp toms. Lactate WB 8.5 (Critical) 0.5 - 2.2 mmol/L [facility] FIO2 Art 40 % [facility] PF Ratio Art 232 [facility] LAB[facility] Specimen Anatomical Collection Method Collection Time Receive d Time (Source) Location / / Volume Laterality Blood specimen 02/01/2019 1:54 AM 019 1:54 (specimen) EDT AM EDT Lizz Cabrera MD CHEMISTRY ORDERABLES Performing Organization Address City/State/ZIP [place] [address] (ABNORMAL) BLOOD GAS 2 ARTERIAL (02/01/2019 12:35 AM EDT) [facility] gist Method Time Signature pH Art 7.30 (L) 7.35 - [facility] 7.45 [facility] pCO2 Art 33 (L) 35 - 45 [facility] mmHg [facility] pO2 Art 101 85 - 104 [facility] LABORATORY HCO3 Art 15.9 (L) 20.0 - [facility] 26.0 [facility] mmol/[facility] BE Art -10.6 (L) -3.0 - 3.0 [facility] mmol/L [facility] Hgb Blood Gas 13.6 (L) 13.7 - [facility] 16.5 gm/dL [facility] O2HB Art 95.3 94.0 - [facility] 97.0 % [facility] COHB Art 0.5 % [facility] Comment: Nonsmokers: 0.5-1.5% COHB Smokers: Variable, but usually less than 10% Toxic: 20-30% COHB Lethal: Greater than 60% COHB METHB Art 0.7 <=1.5 % [facility] Na Whole Blood 137 135 - 145 mmol/L [facility] K Whole Blood 4.1 3.5 - 5.0 mmol/L [facility] Comment: Please note: Patients with WBC >100,000 may have falsely elevated Potassium levels. Contact the Clinical Chemistry L aboratory if there are any questions. ICa Whole Blood 1.09 (L) 1.15 - 1.33 mmol/L [facility] Comment: Note: ??Total bilirubin higher than 20 m g/dL may lead to falsely low ionized calcium. CL Whole Blood 103 98 - 107 mmol/L [facility] Gluc Whole Bld 270 (H) 65 - 199 mg/dL [facility] Comment: Diabetes: >=200 mg/dL plus symp toms. Lactate WB 6.7 (Critical) 0.5 - 2.2 mmol/L [facility] FIO2 Art 40 % [facility] LABORATORY PF Ratio Art 252 [facility] Specimen Anatomical Collection Method Collection Time Receive d Time (Source) Location / / Volume Laterality Blood specimen 02/01/2019 12:35 9 (specimen) AM EDT 12:35 AM EDT Lizz Cabrera MD CHEMISTRY ORDERABLES Performing Organization Address City/State/ZIP Code Phon [place] [facility] [place] [address] Scan, Peripheral Blood (02/01/2019 12:22 AM EDT) [facility] Method Time Signature Plat Estimate Normal [facility] RBC Morphology Abnormal [facility] Ovalocytes 1-5 /HPF [facility] Lupe Cells gtr than 10 /HPF [facility] Pappenheimer Bdy Present >1/HPF [facility] Specimen Anatomical Collection Method Collection Time Receive d Time (Source) Location / / Volume Laterality Blood specimen 02/01/2019 12:22 9 1:16 (specimen) AM EDT AM EDT Resulting Agency Comment Spec In Lab Sacha LEI HEMATOLOGY ORDERABLES Performing Organization Address City/State/ZIP [place] [address] (ABNORMAL) Differential, Automated (02/01/2019 12:22 AM EDT) [facility] Method Time Signature Neutrophils % 83.1 % [facility] Neutr Abs (ANC) 23.60 (H) 1.70 - [facility] 6.10 [facility] x10(3)/[facility] LABORATORY Lymphocytes % 9.1 % [facility] Lymphocytes Abs 2.6 0.9 - 3.2 [facility] x10(3)/[facility] LABORATORY Monocytes % 6.3 % [facility] Monocyte Abs 1.8 (H) 0.3 - 0.9 [facility] x10(3)/[facility] LABORATORY Eosinophils % 0.1 % [facility] Eosinophils Abs 0.0 0.0 - 0.4 [facility] x10(3)[facility] LABORATORY Basophils % 0.3 % [facility] Basophils Abs 0.1 0.0 - 0.1 [facility] x10(3)/[facility] LABORATORY Immature Gran % 1.10 % [facility] Comment: Immature granulocytes(IG's)percentage an d absolute count will include metamyelocytes, myelocytes, and promyelo cytes. Blood smears from CBCs yielding IG's will be scanned manually for concor dance. If this scan disagrees with the automated IG or if promyelocytes are not ed, a manual differential will be performed. Corinne Gran Abs 0.32 (H) 0.00 - 0.04 x10(3)/[facility] LABORATORY Specimen Anatomical Collection Method Collection Time Receive d Time (Source) Location / / Volume Laterality Blood specimen 02/01/2019 12:22 9 (specimen) AM EDT 12:33 AM EDT Resulting Agency Comment Spec In Lab Sacha Rivase PA HEMATOLOGY ORDERABLES Performing Organization Address City/State/Z[place] [address] (ABNORMAL) Hemogram (02/01/2019 12:22 AM EDT) Analysis Performed At Patho logist Time Signature WBC 28.4 (H) 4.0 - 9.5 [facility] x10(3)/[facility] LABORATORY RBC 4.08 (L) 4.58 - [facility] 5.54 [facility] x10(6)/[facility] LABORATORY Hemoglobin 12.3 (L) 13.7 - [facility] 16.5 gm/dL [facility] Hematocrit 36.7 (L) 40.5 - [facility] 48.5 % [facility] MCV 90.0 82.9 - [facility] 93.1 [facility] LABORATORY MCH 30.6 27.5 - [facility] 32.1 pg [facility] MCHC 34.1 32.0 - [facility] 35.7 gm/dL [facility] Platelets 273 145 - 357 [facility] x10(3)/[facility] LABORATORY RDWSD 43.2 36.0 - [facility] 45.0 [facility] LABORATORY RDWCV 13.3 11.4 - [facility] 13.8 % [facility] MPV 11.2 7.6 - 12.9 [facility] LABORATORY nRBC % Auto 0.0 % [facility] nRBC Abs Auto 0.000 0.000 - [facility] 0.000 [facility] x10(3)/[facility] LABORATORY Specimen Anatomical Collection Method Collection Time Receive d Time (Source) Location / / Volume Laterality Blood specimen 02/01/2019 12:22 9 (specimen) AM EDT 12:33 AM EDT Resulting Agency Comment Spec In Lab Sacha A Siddhartha PA HEMATOLOGY ORDERABLES Performing Organization Address City/State/ZIP [place] [address] (ABNORMAL) Basic Metabolic Panel (non-fasting) (02/01/2019 12:22 AM EDT) P athologist Signature Glucose Lvl 292 (H) 65 - 199 [facility] mg/dL [facility] Comment: Diabetes: >=200 mg/dL plus symp toms BUN 16 10 - 20 mg/dL [facility] Creatinine 1.08 0.80 - 1.50 mg/dL [facility] LABORATORY Sodium 140 135 - 145 mmol/L [facility] Potassium Not Perf 3.5 - 5.0 [facility] LABORATORY Comment: Duplicate. Potassium already completed. Please note: ??Patients with WBC >100,00 0 may have falsely elevated Potassium levels. ??For accurate Potassium quantif ication in these patients send serum separator tube (gold top) for subsequent determinations. ??Contact the Clinical Chemistry Laboratory if there are any qu estions. Chloride 102 98 - 107 mmol/L [facility] CO2 Not Perf 22 - 31 [facility] Comment: Add-on request. Sample too old to perform test. Anion Gap Unable to Calculate 5 - 15 mmol/L [facility] LABORATORY Calcium 8.0 (L) 8.5 - 10.5 mg/dL [facility] Comment: result rechecked-ssd Estimated GFR 71 >=60 mL/min/1.73 m?? [facility] Comment: The eGFR was calculated using the CKD-EP I equation. As with all creatinine based estimates of kidney function, eGFR values calculated with the CKD-EPI equation are not accurate in patients wi th acute kidney failure, extremes of body mass or the acutely ill. [email or web address] eGFR 82 >=60 mL/min/1.73 m?? [facility] Comment: The eGFR was calculated using the CKD-EP I equation. As with all creatinine based estimates of kidney function, eGFR values calculated with the CKD-EPI equation are not accurate in patients wi th acute kidney failure, extremes of body mass or the acutely ill. [email or web address] Specimen Anatomical Collection Method Collection Time Receive d Time (Source) Location / / Volume Laterality Blood specimen 02/01/2019 12:22 9 (specimen) AM EDT 12:33 AM EDT Resulting Agency Comment Spec In Lab Lizz Cabrera MD CHEMISTRY ORDERABLES Performing Organization Address City/State/Z[place] [address] (ABNORMAL) Troponin (02/01/2019 12:22 AM EDT) athologist Signature Troponin-T 0.28 (H) 0.00 - [facility] 0.00 ng/mL [facility] Comment: The 99th percentile for Troponin T is le ss than 0.01 ng/mL, any detectable cTnT concentration using this assay should be considered elevated. According to the third universal definit ion of myocardial infarction the following criteria with a clinical prese ntation consistent with acute myocardial ischemia meets the diagnosis for a myocardial infarction ([place]). Detection of a rise and/or fall of [...] additional sample may be indicated. Reference: Third Nora Definition of Myocardial Infarction. Journal of the [place] [employer] 2012;60:1581-98 Specimen Anatomical Collection Method Collection Time Receive d Time (Source) Location / / Volume Laterality Blood specimen 02/01/2019 12:22 9 (specimen) AM EDT 12:33 AM EDT Resulting Agency Comment Spec In Lab Lizz Cabrera MD CHEMISTRY ORDERABLES Performing Organization Address City/[facility]/ZIP [place] [address] (ABNORMAL) Hemoglobin (02/01/2019 12:22 AM EDT) athologist Signature Hemoglobin 12.3 (L) 13.7 - [facility] 16.5 gm/dL [facility] Specimen Anatomical Collection Method Collection Time Receive d Time (Source) Location / / Volume Laterality Blood specimen 02/01/2019 12:22 9 (specimen) AM EDT 12:33 AM EDT Resulting Agency Comment Spec In Lab Lizz Cabrera MD HEMATOLOGY ORDERABLES Performing Organization Address City/[facility]/[place]IP [place] [address] Potassium (02/01/2019 12:22 AM EDT) athologist Signature Potassium 4.4 3.5 - 5.0 [facility] mmol/L [facility] Comment: Please note: ??Patients with WBC [...] Cabrera MD CHEMISTRY ORDERABLES Performing Organization Address City/[facility]/ZIP [place] [address] (ABNORMAL) POCT Glucose (01/31/2019 11:20 PM EDT) athologist Signature POC Glucose 233 (H) 65 - 199 [facility] Comment: Supplemental ranges: <140 mg/dL before meals <180 mg/dL all other times of the day Specimen Anatomical Collection Method Collection Time Receive d Time (Source) Location / / Volume Laterality Blood specimen 01/31/2019 11:20 9 (specimen) PM EDT 11:20 PM EDT Lizz Cabrera MD POINT OF CARE TEST ORDERABLE S Performing Organization Address City/State/Z[place] [address] (ABNORMAL) BLOOD GAS 2 ARTERIAL (01/31/2019 10:08 PM EDT) [facility] gist Method Time Signature pH Art 7.23 7.35 - [facility] (Critical) 7.45 [facility] pCO2 Art 42 35 - 45 [facility] mmHg [facility] pO2 Art 94 85 - 104 [facility] LABORATORY HCO3 Art 17.1 (L) 20.0 - [facility] 26.0 [facility] mmol/L [facility] BE Art -10.5 (L) -3.0 - 3.0 [facility] mmol/L [facility] Hgb Blood Gas 14.0 13.7 - [facility] 16.5 gm/dL [facility] O2HB Art 94.3 94.0 - [facility] 97.0 % [facility] COHB Art 0.6 % [facility] Comment: Nonsmokers: 0.5-1.5% COHB Smokers: Variable, but usually less than 10% Toxic: 20-30% COHB Lethal: Greater than 60% COHB METHB Art 0.6 <=1.5 % [facility] Na Whole Blood 136 135 - 145 mmol/L [facility] K Whole Blood 4.0 3.5 - 5.0 mmol/L [facility] Comment: Please note: Patients with WBC >100,000 may have falsely elevated Potassium levels. Contact the Clinical Chemistry L aboratory if there are any questions. ICa Whole Blood 1.09 (L) 1.15 - 1.33 mmol/L [facility] Comment: Note: ??Total bilirubin higher than 20 m g/dL may lead to falsely low ionized calcium. CL Whole Blood 104 98 - 107 mmol/L [facility] Gluc Whole Bld 273 (H) 65 - 199 mg/dL [facility] Comment: Diabetes: >=200 mg/dL plus symp toms. Lactate WB 5.7 (Critical) 0.5 - 2.2 mmol/L [facility] FIO2 Art 40 % [facility] PF Ratio Art 235 [facility] LAB[facility]ORY Specimen Anatomical Collection Method Collection Time Receive d Time (Source) Location / / Volume Laterality Blood specimen 01/31/2019 10:08 9 (specimen) PM EDT 10:08 PM EDT Lizz Cabrera MD CHEMISTRY ORDERABLES Performing Organization Address City/State/Z[place] [address] XR Chest PA or [...] e number below. ? Electronically signed by: Charis Doyle [facility] ([phone]), at 01/31/2019 9:09 PM Narrative 01/31/2019 9:09 PM EDT EXAMINATION: XR [...] GAS 2 ARTERIAL (01/31/2019 8:38 PM EDT) [facility] Method Time Signature pH Art 7.23 7.35 - [facility] (Critical) 7.45 [facility] pCO2 Art 50 (H) 35 - 45 [facility] mmHg [facility] pO2 Art 257 (H) 85 - 104 [facility] LABORATORY HCO3 Art 20.3 20.0 - [facility] 26.0 [facility] mmol/L [facility] BE Art -7.2 (L) -3.0 - 3.0 [facility] mmol/L [facility] Hgb Blood Gas 13.9 13.7 - [facility] 16.5 gm/dL [facility] O2HB Art 97.6 (H) 94.0 - [facility] 97.0 % [facility] COHB Art 0.7 % [facility] Comment: Nonsmokers: 0.5-1.5% COHB Smokers: Variable, but usually less than 10% Toxic: 20-30% COHB Lethal: Greater than 60% COHB METHB Art 0.7 <=1.5 % [facility]ORY Na Whole Blood 138 135 - 145 mmol/L [facility] K Whole Blood 3.8 3.5 - 5.0 mmol/L [facility] Comment: Please note: Patients with WBC >100,000 may have falsely elevated Potassium levels. Contact the Clinical Chemistry L aboratory if there are any questions. ICa Whole Blood 1.12 (L) 1.15 - 1.33 mmol/L [facility] Comment: Note: ??Total bilirubin higher than 20 m g/dL may lead to falsely low ionized calcium. CL Whole Blood 104 98 - 107 mmol/L [facility] Gluc Whole Bld 238 (H) 65 - 199 mg/dL [facility] Comment: Diabetes: >=200 mg/dL plus symp toms. Lactate WB 4.1 (Critical) 0.5 - 2.2 mmol/L [facility] FIO2 Art 100 % [facility]ORATORY PF Ratio Art 257 [facility] LABOR[facility]ORY Specimen Anatomical Collection Method Collection Time Receive d Time (Source) Location / / Volume Laterality Blood specimen 01/31/2019 8:38 PM 019 8:38 (specimen) EDT PM EDT Lizz Cabrera MD CHEMISTRY ORDERABLES Performing Organization Address City/State/[place] [address] EKG 12 Lead (01/31/2019 8:20 PM EDT) Component Value Ref Range Test Analysis Performed Pathologis t Method Time At Signature Ventricular rate 90 BPM MUSE SYSTEM Atrial Rate 90 BPM MUSE SYSTEM P-R Interval 208 ms MUSE SYSTEM QRS Duration 132 ms MUSE SYSTEM Q-T Interval 424 ms MUSE SYSTEM QTC Calculated 518 ms MUSE SYSTEM (Bezet) Calculated P [place] 65 degrees MUSE SYSTEM Calculated R [place] -84 degrees MUSE SYSTEM Calculated T [place] 98 degrees MUSE SYSTEM INTERPRETATION Sinus rhythm [...] GAS 2 ARTERIAL (01/31/2019 7:33 PM EDT) P athologist Signature pH Art 7.28 7.35 - [facility] (Critical) 7.45 [facility] Comment: Noted by manager instrumentation. pCO2 Art 42 35 - 45 mmHg [facility] pO2 Art 365 (H) 85 - 104 mmHg [facility] HCO3 Art 19.7 (L) 20.0 - 26.0 mmol/L [facility] BE Art -7.0 (L) -3.0 - 3.0 mmol/L [facility] LABOR[facility] Hgb Blood Gas 12.0 (L) 13.7 - 16.5 gm/dL [facility] O2HB Art 98.9 (H) 94.0 - 97.0 % [facility] COHB Art 0.5 % [facility] Comment: Nonsmokers: 0.5-1.5% COHB Smokers: Variable, but usually less than 10% Toxic: 20-30% COHB Lethal: Greater than 60% COHB METHB Art 0.3 <=1.5 % [facility] Na Whole Blood 135 135 - 145 mmol/L [facility] K Whole Blood 3.6 3.5 - 5.0 mmol/L [facility] Comment: Please note: Patients with WBC >100,000 may have falsely elevated Potassium levels. Contact the Clinical Chemistry L aboratory if there are any questions. ICa Whole Blood 1.07 (L) 1.15 - 1.33 mmol/L [facility] Comment: Note: ??Total bilirubin higher than 20 m g/dL may lead to falsely low ionized calcium. CL Whole Blood 106 98 - 107 mmol/L [facility] Gluc Whole Bld 224 (H) 65 - 199 mg/dL [facility] Comment: Diabetes: >=200 mg/dL plus symp toms. Lactate WB 2.8 (H) 0.5 - 2.2 mmol/L [facility] Specimen Anatomical Collection Method Collection Time Receive d Time (Source) Location / / Volume Laterality Blood specimen 01/31/2019 7:33 PM 019 7:33 (specimen) EDT PM EDT Lizz Cabrera MD CHEMISTRY ORDERABLES Performing Organization Address City/State/Z[place] [address] (ABNORMAL) BLOOD GAS 2 ARTERIAL (01/31/2019 6:56 PM EDT) Analysis Performed At Patho logist Time Signature pH Art 7.30 (L) 7.35 - [facility] 7.45 [facility] pCO2 Art 49 (H) 35 - 45 [facility] mmHg [facility] pO2 Art 146 (H) 85 - 104 [facility] mmHg [facility] HCO3 Art 23.5 20.0 - [facility] 26.0 [facility] mmol/L [facility] BE Art -2.9 -3.0 - 3.0 [facility] mmol/L [facility] Hgb Blood Gas 10.7 (L) 13.7 - [facility] 16.5 gm/dL [facility] O2HB Art 97.7 (H) 94.0 - [facility] 97.0 % [facility] COHB Art 0.4 % [facility] Comment: Nonsmokers: 0.5-1.5% COHB Smokers: Variable, but usually less than 10% Toxic: 20-30% COHB Lethal: Greater than 60% COHB METHB Art 0.3 <=1.5 % [facility]ORATORY Na Whole Blood 133 (L) 135 - 145 mmol/L [facility] K Whole Blood 3.7 3.5 - 5.0 mmol/L [facility] Comment: Please note: Patients with WBC >100,000 may have falsely elevated Potassium levels. Contact the Clinical Chemistry L aboratory if there are any questions. ICa Whole Blood 1.12 (L) 1.15 - 1.33 mmol/L [facility] Comment: Note: ??Total bilirubin higher than 20 m g/dL may lead to falsely low ionized calcium. CL Whole Blood 103 98 - 107 mmol/L [facility] Gluc Whole Bld 247 (H) 65 - 199 mg/dL [facility] Comment: Diabetes: >=200 mg/dL plus symp toms. Lactate WB 2.3 (H) 0.5 - 2.2 mmol/L [facility] Specimen Anatomical Collection Method Collection Time Receive d Time (Source) Location / / Volume Laterality Blood specimen 01/31/2019 6:56 PM 019 6:56 (specimen) EDT PM EDT Lizz Cabrera MD CHEMISTRY ORDERABLES Performing Organization Address City/[facility]/[place] [address] (ABNORMAL) Fibrinogen (01/31/2019 6:55 PM EDT) P athologist Signature Fibrinogen 180 (L) 200 - 393 [facility] mg/dL [facility] Comment: Called by: lianet, Read back [...] Luke MD HEMATOLOGY ORDERABLES Performing Organization Address City/[facility]/Z[place] [address] (ABNORMAL) Hemogram (01/31/2019 6:55 PM EDT) P athologist Signature WBC 27.7 (H) 4.0 - 9.5 [facility] x10(3)/[facility] LABORATORY RBC 3.30 (L) 4.58 - [facility] 5.54 [facility] x10(6)/[facility] LABORATORY Hemoglobin 10.0 (L) 13.7 - [facility] 16.5 gm/dL [facility] Hematocrit 29.9 (L) 40.5 - [facility] 48.5 % [facility] Comment: This result has been called to MARY Lopes RN by Zi Meyer on 01 31 2019 at 1904, and has been read back. MCV 90.6 82.9 - 93.1 fL [facility] MCH 30.3 27.5 - 32.1 pg [facility] MCHC 33.4 32.0 - 35.7 gm/dL [facility] Platelets 214 145 - 357 x10(3)/[facility] LABORATORY RDWSD 44.4 36.0 - 45.0 fL [facility] RDWCV 13.4 11.4 - 13.8 % [facility] MPV 10.9 7.6 - 12.9 fL [facility] nRBC % Auto 0.0 % [facility] nRBC Abs Auto 0.000 0.000 - 0.000 x10(3)/[facility] LABORATORY Specimen Anatomical Collection Method Collection Time Receive d Time (Source) Location / / Volume Laterality Blood specimen 01/31/2019 6:55 PM 019 6:59 (specimen) EDT PM EDT Resulting Agency Comment Spec In Lab Jose Luke MD HEMATOLOGY ORDERABLES Performing Organization Address City/[facility]/[place] [address] APTT (01/31/2019 6:55 PM EDT) P athologist Signature PTT 33 25 - 37 sec [facility] Comment: Called by: lianet, Read [...] Luke MD HEMATOLOGY ORDERABLES Performing Organization Address City/[facility]/[place] [address] (ABNORMAL) Prothrombin Time (01/31/2019 6:55 PM EDT) P athologist Signature PT 17.2 (H) 9.4 - 12.5 [facility] Comment: Called by: lianet, Read back by: keke ford_, Date/Time:_01/31/19 19:15. INR 1.5 [facility] Comment: Called by: lianet, Read back [...] Luke MD HEMATOLOGY ORDERABLES Performing Organization Address City/[facility]/[place] [address] Prepare Platelets, Apheresis (01/31/2019 6:45 PM EDT) P athologist Signature Dispensed? Yes [facility] Specimen Anatomical Collection Method Collection Time Receive d Time (Source) Location / / Volume Laterality Blood specimen 01/31/2019 6:45 PM 019 6:43 (specimen) EDT PM EDT Lizz Cabrera MD BLOOD BANK ORDERABLES Performing Organization Address City/[facility]/[place] [address] (ABNORMAL) BLOOD GAS 2 ARTERIAL (01/31/2019 6:31 PM EDT) Analysis Performed At Patho logist Time Signature pH Art 7.34 (L) 7.35 - [facility] 7.45 [facility] pCO2 Art 40 35 - 45 [facility] LABORATORY pO2 Art 414 (H) 85 - 104 [facility]ORY HCO3 Art 21.4 20.0 - [facility] 26.0 [facility] mmol/L [facility] BE Art -4.3 (L) -3.0 - 3.0 [facility] mmol/L [facility] Hgb Blood Gas 10.3 (L) 13.7 - [facility] 16.5 gm/dL [facility] O2HB Art 99.0 (H) 94.0 - [facility] 97.0 % [facility] COHB Art 0.2 % [facility] Comment: Nonsmokers: 0.5-1.5% COHB Smokers: Variable, but usually less than 10% Toxic: 20-30% COHB Lethal: Greater than 60% COHB METHB Art 0.3 <=1.5 % [facility] Na Whole Blood 130 (L) 135 - 145 mmol/L [facility] K Whole Blood 4.7 3.5 - 5.0 mmol/L [facility] Comment: Please note: Patients with WBC >100,000 may have falsely elevated Potassium levels. Contact the Clinical Chemistry L aboratory if there are any questions. ICa Whole Blood 1.27 1.15 - 1.33 mmol/L [facility] Comment: Note: ??Total bilirubin higher than 20 m g/dL may lead to falsely low ionized calcium. CL Whole Blood 100 98 - 107 mmol/L [facility] Gluc Whole Bld 273 (H) 65 - 199 mg/dL [facility] Comment: Diabetes: >=200 mg/dL plus symp toms. Lactate WB 1.5 0.5 - 2.2 mmol/L [facility] Specimen Anatomical Collection Method Collection Time Receive d Time (Source) Location / / Volume Laterality Blood specimen 01/31/2019 6:31 PM 019 6:31 (specimen) EDT PM EDT Lizz Cabrera MD CHEMISTRY ORDERABLES Performing Organization Address City/State/ZIP [place] [address] (ABNORMAL) BLOOD GAS 2 ARTERIAL (01/31/2019 6:08 PM EDT) Analysis Performed At Patho logist Time Signature pH Art 7.37 7.35 - [facility] 7.45 [facility] pCO2 Art 39 35 - 45 [facility]ORATORY pO2 Art 327 (H) 85 - 104 [facility]ORATORY HCO3 Art 22.2 20.0 - [facility] 26.0 [facility] mmol/[facility] BE Art -3.1 (L) -3.0 - 3.0 [facility] mmol/L [facility] Hgb Blood Gas 10.8 (L) 13.7 - [facility] 16.5 gm/dL [facility] O2HB Art 98.6 (H) 94.0 - [facility] 97.0 % [facility] COHB Art 0.4 % [facility] Comment: Nonsmokers: 0.5-1.5% COHB Smokers: Variable, but usually less than 10% Toxic: 20-30% COHB Lethal: Greater than 60% COHB METHB Art 0.3 <=1.5 % [facility] Na Whole Blood 130 (L) 135 - 145 mmol/L [facility] K Whole Blood 5.2 (H) 3.5 - 5.0 mmol/L [facility] Comment: Please note: Patients with WBC >100,000 may have falsely elevated Potassium levels. Contact the Clinical Chemistry L aboratory if there are any questions. ICa Whole Blood 0.96 (L) 1.15 - 1.33 mmol/L [facility] Comment: Note: ??Total bilirubin higher than 20 m g/dL may lead to falsely low ionized calcium. CL Whole Blood 100 98 - 107 mmol/L [facility] Gluc Whole Bld 279 (H) 65 - 199 mg/dL [facility] Comment: Diabetes: >=200 mg/dL plus symp toms. Lactate WB 1.4 0.5 - 2.2 mmol/L [facility] Specimen Anatomical Collection Method Collection Time Receive d Time (Source) Location / / Volume Laterality Blood specimen 01/31/2019 6:08 PM 019 6:08 (specimen) EDT PM EDT Lizz Cabrera MD CHEMISTRY ORDERABLES Performing Organization Address City/State/ZIP Code Phon e Number [place] [phone] HOSP[address] LABORATORY Drive (ABNORMAL) Fibrinogen (01/31/2019 6:00 PM EDT) athologist Signature Fibrinogen 180 (L) 200 - 393 [place] mg/dL [facility] Comment: Called by: lianet, Read back [...] Cabrera MD HEMATOLOGY ORDERABLES Performing Organization Address City/[facility]/ZIP [place] [address] Platelet count (01/31/2019 6:00 PM EDT) athologist Signature Platelets 229 145 - 357 [place] x10(3)/[facility] LABORATORY Plat Immature 2.7 0.0 - 7.4 [place] % % [facility] Comment: Limitation of the Immature Platelet Frac tion (IPF)-May be less reliable when the platelet count is less than 55f525/u L due to statistical imprecision. The IPF [...] in a decreased state of production. References: [employer] The Clinical Value of the Immature Platelet Fraction (IPF) in Cell Recovery Document Number [id number] 01/2011 [employer] The Role of the Imm ature Platelet Fraction (IPF) in the Differential Diagnosis of Thrombocytopen ia, Document [id number] V05/07/21 P05 Specimen Anatomical Collection Method Collection Time Receive d Time (Source) Location / / Volume Laterality Blood specimen 01/31/2019 6:00 PM 019 6:10 (specimen) EDT PM EDT Resulting Agency Comment Spec In Lab Lizz Cabrera MD HEMATOLOGY ORDERABLES Performing Organization Address City/State/[place] [address] (ABNORMAL) Hemoglobin and Hematocrit, blood (01/31/2019 6:00 PM EDT) P athologist Signature Hemoglobin 9.9 (L) 13.7 - 16.5 [facility] gm/dL [facility] Comment: This result has been called to MARY Lopes RN by Zi Meyer on 01 31 2019 at 1818, and has been read back. Hematocrit 28.7 (L) 40.5 - 48.5 % [facility] Comment: This result has been [...] Organization Address City/State/ZIP Code Phon e Number [place] [phone] HOSPITAL LAB[address]ORY [address] (ABNORMAL) BLOOD GAS 2 ARTERIAL (01/31/2019 5:42 PM EDT) Analysis Performed At Patho logist Time Signature pH Art 7.32 (L) 7.35 - [facility] 7.45 [facility] pCO2 Art 47 (H) 35 - 45 [facility] mmHg [facility] pO2 Art 282 (H) 85 - 104 [facility] LABORATORY HCO3 Art 23.7 20.0 - [facility] 26.0 [facility]/L [facility] BE Art -2.3 -3.0 - 3.0 [facility] mmol/L [facility] Hgb Blood Gas 10.6 (L) 13.7 - [facility] 16.5 gm/dL [facility] O2HB Art 98.7 (H) 94.0 - [facility] 97.0 % [facility] COHB Art 0.1 % [facility] Comment: Nonsmokers: 0.5-1.5% COHB Smokers: Variable, but usually less than 10% Toxic: 20-30% COHB Lethal: Greater than 60% COHB METHB Art 0.3 <=1.5 % [facility] Na Whole Blood 129 (L) 135 - 145 mmol/L [facility] K Whole Blood 5.8 (H) 3.5 - 5.0 mmol/L [facility] Comment: Please note: Patients with WBC >100,000 may have falsely elevated Potassium levels. Contact the Clinical Chemistry L aboratory if there are any questions. ICa Whole Blood 0.96 (L) 1.15 - 1.33 mmol/L [facility] Comment: Note: ??Total bilirubin higher than 20 m g/dL may lead to falsely low ionized calcium. CL Whole Blood 101 98 - 107 mmol/L [facility] Gluc Whole Bld 257 (H) 65 - 199 mg/dL [facility] Comment: Diabetes: >=200 mg/dL plus symp toms. Lactate WB 1.3 0.5 - 2.2 mmol/L [facility] Specimen Anatomical Collection Method Collection Time Receive d Time (Source) Location / / Volume Laterality Blood specimen 01/31/2019 5:42 PM 019 5:42 (specimen) EDT PM EDT Lizz Cabrera MD CHEMISTRY ORDERABLES Performing Organization Address City/State/Z[place] [address] (ABNORMAL) BLOOD GAS 2 VENOUS (01/31/2019 5:08 PM EDT) athologist Signature pH [place] 7.28 7.32 - [facility] (Critical) 7.42 [facility] Comment: Noted by manager instrumentation. pCO2 [place] 48 41 - 51 mmHg [facility] pO2 [place] 55 (H) 25 - 40 mmHg [facility] HCO3 [place] 22.0 mmol/L [facility] BE [place] -4.8 mmol/L [facility] Hgb Blood Gas 11.0 (L) 13.7 - 16.5 gm/dL [facility] O2HB [place] 82.2 % [facility] COHB [place] 0.6 % [facility] Comment: Nonsmokers: 0.5-1.5% COHB Smokers: Variable, but usually less than 10% Toxic: 20-30% COHB Lethal: Greater than 60% COHB METHB [place] 0.3 <=1.5 % [facility] Na Whole Blood 134 (L) 135 - 145 mmol/L [facility] K Whole Blood 5.0 3.5 - 5.0 mmol/L [facility] Comment: Please note: Patients with WBC >100,000 may have falsely elevated Potassium levels. Contact the Clinical Chemistry L aboratory if there are any questions. ICa Whole Blood 0.99 (L) 1.15 - 1.33 mmol/L [facility] Comment: Note: ??Total bilirubin higher than 20 m g/dL may lead to falsely low ionized calcium. CL Whole Blood 104 98 - 107 mmol/L [facility] Gluc Whole Bld 148 65 - 199 mg/dL [facility] Comment: Diabetes: >=200 mg/dL plus symp toms Lactate WB 0.8 0.5 - 2.2 mmol/L [facility] BGas Source Venous [facility] Specimen Anatomical Collection Method Collection Time Receive d Time (Source) Location / / Volume Laterality Blood specimen 01/31/2019 5:08 PM 019 5:08 (specimen) EDT PM EDT Lizz Cabrera MD CHEMISTRY ORDERABLES Performing Organization Address City/State/Z[place] [address] (ABNORMAL) BLOOD GAS 2 ARTERIAL (01/31/2019 5:08 PM EDT) Analysis Performed At Patho logist Time Signature pH Art 7.30 (L) 7.35 - [facility] 7.45 [facility] pCO2 Art 41 35 - 45 [facility] mmHg [facility] pO2 Art 320 (H) 85 - 104 [facility] mmHg [facility] HCO3 Art 19.5 (L) 20.0 - [facility] 26.0 [facility] mmol/L [facility] BE Art -6.9 (L) -3.0 - 3.0 [facility] mmol/L [facility] Hgb Blood Gas 10.9 (L) 13.7 - [facility] 16.5 gm/dL [facility] O2HB Art 98.7 (H) 94.0 - [facility] 97.0 % [facility] COHB Art 0.3 % [facility] Comment: Nonsmokers: 0.5-1.5% COHB Smokers: Variable, but usually less than 10% Toxic: 20-30% COHB Lethal: Greater than 60% COHB METHB Art 0.3 <=1.5 % [facility] Na Whole Blood 134 (L) 135 - 145 mmol/L [facility] K Whole Blood 4.9 3.5 - 5.0 mmol/L [facility] Comment: Please note: Patients with WBC >100,000 may have falsely elevated Potassium levels. Contact the Clinical Chemistry L aboratory if there are any questions. ICa Whole Blood 1.02 (L) 1.15 - 1.33 mmol/L [facility] Comment: Note: ??Total bilirubin higher than 20 m g/dL may lead to falsely low ionized calcium. CL Whole Blood 103 98 - 107 mmol/L [facility] Gluc Whole Bld 142 65 - 199 mg/dL [facility] Comment: Diabetes: >=200 mg/dL plus symp toms. Lactate WB 0.8 0.5 - 2.2 mmol/L [facility] Specimen Anatomical Collection Method Collection Time Receive d Time (Source) Location / / Volume Laterality Blood specimen 01/31/2019 5:08 PM 019 5:08 (specimen) EDT PM EDT Lizz Cabrera MD CHEMISTRY ORDERABLES Performing Organization Address City/State/Z[place] [address] (ABNORMAL) BLOOD GAS 2 ARTERIAL (01/31/2019 3:30 PM EDT) Analysis Performed At Patho logist Time Signature pH Art 7.33 (L) 7.35 - [facility] 7.45 [facility] pCO2 Art 43 35 - 45 [facility] LABORATORY pO2 Art 273 (H) 85 - 104 [facility] LABORATORY HCO3 Art 22.3 20.0 - [facility] 26.0 [facility] mmolINTER[facility] BE Art -3.6 (L) -3.0 - 3.0 [facility] mmol/L [facility] Hgb Blood Gas 13.0 (L) 13.7 - [facility] 16.5 gm/dL [facility] O2HB Art 98.5 (H) 94.0 - [facility] 97.0 % [facility] COHB Art 0.6 % [facility] Comment: Nonsmokers: 0.5-1.5% COHB Smokers: Variable, but usually less than 10% Toxic: 20-30% COHB Lethal: Greater than 60% COHB METHB Art 0.3 <=1.5 % [facility] Na Whole Blood 138 135 - 145 mmol/L [facility] K Whole Blood 4.4 3.5 - 5.0 mmol/L [facility] Comment: Please note: Patients with WBC >100,000 may have falsely elevated Potassium levels. Contact the Clinical Chemistry L aboratory if there are any questions. ICa Whole Blood 1.15 1.15 - 1.33 mmol/L [facility] Comment: Note: ??Total bilirubin higher than 20 m g/dL may lead to falsely low ionized calcium. CL Whole Blood 103 98 - 107 mmol/L [facility] Gluc Whole Bld 146 65 - 199 mg/dL [facility] Comment: Diabetes: >=200 mg/dL plus symp toms. Lactate WB 1.1 0.5 - 2.2 mmol/L [facility] Specimen Anatomical Collection Method Collection Time Receive d Time (Source) Location / / Volume Laterality Blood specimen 01/31/2019 3:30 PM 019 3:30 (specimen) EDT PM EDT Lizz Cabrera MD CHEMISTRY ORDERABLES Performing Organization Address City/[facility]/ZIP Code Phon e Number [address] Prepare RBC (01/31/2019 1:25 PM EDT) P athologist Signature Dispensed? Yes [facility] Specimen Anatomical Collection Method Collection Time Receive d Time (Source) Location / / Volume Laterality Blood specimen 01/31/2019 1:25 PM 019 1:20 (specimen) EDT PM EDT Lizz Cabrera MD BLOOD BANK ORDERABLES Performing Organization Address City/[facility]/ZIP Code Phon e Number [address] POCT Glucose (01/31/2019 11:10 AM EDT) P athologist Signature POC Glucose 161 65 - 199 [facility] Comment: Supplemental ranges: <140 mg/dL before meals <180 mg/dL all other times of the day Specimen Anatomical Collection Method Collection Time Receive d Time (Source) Location / / Volume Laterality Blood specimen 01/31/2019 11:10 9 (specimen) AM EDT 11:10 AM EDT Lizz Cabrera MD POINT OF CARE TEST ORDERABLE S Performing Organization Address City/[facility]/ZIP Code Phon e Number [address] (ABNORMAL) POCT Glucose (01/31/2019 7:36 AM EDT) P athologist Signature POC Glucose 216 (H) 65 - 199 [facility] Comment: Supplemental ranges: <140 mg/dL before meals <180 mg/dL all other times of the day Specimen Anatomical Collection Method Collection Time Receive d Time (Source) Location / / Volume Laterality Blood specimen 01/31/2019 7:36 AM 019 7:36 (specimen) EDT AM EDT Lizz Cabrera MD POINT OF CARE TEST ORDERABLE S Performing Organization Address City/State/Z[place] [address] EKG 12 Lead (01/31/2019 7:17 AM EDT) Component Value Ref Range Test Analysis Performed Pathologis t Method Time At Signature Ventricular rate 67 BPM MUSE SYSTEM Atrial Rate 67 BPM MUSE SYSTEM P-R Interval 196 ms MUSE SYSTEM QRS Duration 118 ms MUSE SYSTEM Q-T Interval 408 ms MUSE SYSTEM QTC Calculated 431 ms MUSE SYSTEM (Bezet) Calculated P [place] 29 degrees MUSE SYSTEM Calculated R [place] -65 degrees MUSE SYSTEM Calculated T [place] 112 degrees MUSE SYSTEM INTERPRETATION Normal sinus [...] (ABNORMAL) Differential, Automated (01/31/2019 5:34 AM EDT) Patholo gist Method Time Signature Neutrophils % 51.4 % [facility] Neutr Abs (ANC) 5.15 1.70 - [facility] 6.10 [facility] x10(3)/[facility] LABORATORY Lymphocytes % 35.8 % [facility] Lymphocytes Abs 3.6 (H) 0.9 - 3.2 [facility] x10(3)/[facility] LABORATORY Monocytes % 8.6 % [facility] Monocyte Abs 0.9 0.3 - 0.9 [facility] x10(3)/[facility] LABORATORY Eosinophils % 3.0 % [facility] Eosinophils Abs 0.3 0.0 - 0.4 [facility] x10(3)/[facility] LABORATORY Basophils % 0.8 % [facility] Basophils Abs 0.1 0.0 - 0.1 [facility] x10(3)/[facility] LABORATORY Immature Gran % 0.40 % [facility] Comment: Immature granulocytes(IG's)percentage an d absolute count will include metamyelocytes, myelocytes, and promyelo cytes. Blood smears from CBCs yielding IG's will be scanned manually for concor dance. If this scan disagrees with the automated IG or if promyelocytes are not ed, a manual differential will be performed. Corinne Gran Abs 0.04 0.00 - 0.04 x10(3)/[facility] LABORATORY Specimen Anatomical Collection Method Collection Time Receive d Time (Source) Location / / Volume Laterality Blood specimen 01/31/2019 5:34 AM 019 5:40 (specimen) EDT AM EDT Resulting Agency Comment Spec In Lab Lizz Cabrera MD HEMATOLOGY ORDERABLES Performing Organization Address City/State/Z[place] [address] (ABNORMAL) Hemogram (01/31/2019 5:34 AM EDT) Analysis Performed At Patho logist Time Signature WBC 10.0 (H) 4.0 - 9.5 [facility] x10(3)/[facility] LABORATORY RBC 4.41 (L) 4.58 - [facility] 5.54 [facility] x10(6)/[facility] LABORATORY Hemoglobin 13.3 (L) 13.7 - [facility] 16.5 gm/dL [facility] Hematocrit 39.0 (L) 40.5 - [facility] 48.5 % [facility] MCV 88.4 82.9 - [facility] 93.1 fL [facility] MCH 30.2 27.5 - [place] [place] 32.1 pg [facility] MCHC 34.1 32.0 - [place] [place] 35.7 gm/dL [facility] Platelets 190 145 - 357 [place] x10(3)/[facility] LABORATORY RDWSD 42.7 36.0 - [place] 45.0 [facility] LABORATORY RDWCV 13.2 11.4 - [place] [place] 13.8 % [facility] MPV 10.8 7.6 - 12.9 [place] [facility] LABORATORY nRBC % Auto 0.0 % [facility] nRBC Abs Auto 0.000 0.000 - [place] [place] 0.000 [facility] x10(3)/[facility] LABORATORY Specimen Anatomical Collection Method Collection Time Receive d Time (Source) Location / / Volume Laterality Blood specimen 01/31/2019 5:34 AM 019 5:40 (specimen) EDT AM EDT Resulting Agency Comment Spec In Lab Lizz Cabrera MD HEMATOLOGY ORDERABLES Performing Organization Address City/State/Z[place] [address] (ABNORMAL) BMP w/fasting Glucose (01/31/2019 3:38 AM EDT) P athologist Signature Glucose 167 (H) 65 - 99 [place] Fasting mg/dL [facility] Comment: ?Fasting* Glucose Interpretive C riteria [...] of Diabetes Mellitus, Position Statement from the [place] [employer]. ??Diabete s Care, Volume 33, Supplement 1, Aug 2009 BUN 17 10 - 20 mg/dL [facility] Creatinine 0.81 0.80 - 1.50 mg/dL [facility] Sodium 138 135 - 145 mmol/L [facility] Potassium 4.6 3.5 - 5.0 mmol/L [facility] Comment: Please note: ??Patients with WBC >100,00 0 may have falsely elevated Potassium levels. ??For accurate Potassium quantif ication in these patients send serum separator tube (gold top) for subsequent determinations. ??Contact the Clinical Chemistry Laboratory if there are any qu estions. Chloride 103 98 - 107 mmol/L [facility] CO2 21 (L) 22 - 31 mmol/L [facility] Anion Gap 14 5 - 15 mmol/L [facility] Calcium 8.9 8.5 - 10.5 mg/dL [facility] Estimated GFR 93 >=60 mL/min/1.73 m?? [facility] Comment: The eGFR was calculated using the CKD-EP I equation. As with all creatinine based estimates of kidney function, eGFR values calculated with the CKD-EPI equation are not accurate in patients wi th acute kidney failure, extremes of body mass or the acutely ill. [email or web address] eGFR 107 >=60 mL/min/1.73 m?? [facility] Comment: The eGFR was calculated using the CKD-EP I equation. As with all creatinine based estimates of kidney function, eGFR values calculated with the CKD-EPI equation are not accurate in patients wi th acute kidney failure, extremes of body mass or the acutely ill. [email or web address] Specimen Anatomical Collection Method Collection Time Receive d Time (Source) Location / / Volume Laterality Blood specimen 01/31/2019 3:38 AM 019 4:28 (specimen) EDT AM EDT Resulting Agency Comment Spec In Lab Rafa Malik MD CHEMISTRY ORDERABLES Performing Organization Address City/State/[place] [address] POCT Glucose (01/30/2019 8:28 PM EDT) P athologist Signature POC Glucose 142 65 - 199 [place] mg/dL [facility] Comment: Supplemental ranges: <140 mg/dL before meals <180 mg/dL all other times of the day Specimen Anatomical Collection Method Collection Time Receive d Time (Source) Location / / Volume Laterality Blood specimen 01/30/2019 8:28 PM 019 8:28 (specimen) EDT PM EDT Lizz Cabrera MD POINT OF CARE TEST ORDERABLE S Performing Organization Address City/State/ZIP Code Phon e Number [facility] [place] [place] [address] XR Chest PA & [...] Electronically signed by: Francisca de oliveira MD, [facility] [place] ([phone]), at 01/30/2019 6:46 PM Narrative 01/30/2019 6:46 PM EDT EXAMINATION: XR CHEST PA AND LATERAL (GENERIC) CLINICAL HISTORY: pre op CABG 68-year-old male [...] this report, please contact e number below. Electronically signed by: Francisca de oliveira MD, [facility] [place] ([phone]), at 01/30/2019 6:46 PM Kelly Oliveira APRN IMG DX ORDERABLES ABORH Recheck Status (01/30/2019 6:18 PM EDT) [facility] Method Time Signature ABORH Recheck Order Placed [facility] LABORATORY ABORH Type Complete [facility] LABORATORY Specimen Anatomical Collection Method Collection Time Receive d Time (Source) Location / / Volume Laterality Blood specimen 01/30/2019 6:18 PM 019 6:22 (specimen) EDT PM EDT Resulting Agency Comment Spec In Lab Rachele White APRN BLOOD BANK ORDERABLES Performing Organization Address City/State/[place] [address] Antibody screen (01/30/2019 6:18 PM EDT) [facility] Method Time Signature Ab Screen Negative [facility] LABORATORY Expires at 02/02/2019 [place] [id number] on: [facility] Specimen Anatomical Collection Method Collection Time Receive d Time (Source) Location / / Volume Laterality Blood specimen 01/30/2019 6:18 PM 019 6:22 (specimen) EDT PM EDT Resulting Agency Comment Spec In Lab Rachele White APRN BLOOD BANK ORDERABLES Performing Organization Address City/State/[place] [address] ABO/Rh Typing (01/30/2019 6:18 PM EDT) P athologist Signature ABORh Type B Pos [facility] LABORATORY Specimen Anatomical Collection Method Collection Time Receive d Time (Source) Location / / Volume Laterality Blood specimen 01/30/2019 6:18 PM 019 6:22 (specimen) EDT PM EDT Resulting Agency Comment Spec In Lab Rachele White APRN BLOOD BANK ORDERABLES Performing Organization Address City/[facility]/[place]IP [place] [address] POCT Glucose (01/30/2019 4:11 PM EDT) athologist Signature POC Glucose 135 65 - 199 [facility] Comment: Supplemental ranges: <140 mg/dL before meals <180 mg/dL all other times of the day Specimen Anatomical Collection Method Collection Time Receive d Time (Source) Location / / Volume Laterality Blood specimen 01/30/2019 4:11 PM 019 4:11 (specimen) EDT PM EDT Lizz Cabrera MD POINT OF CARE TEST ORDERABLE S Performing Organization Address City/State/[place] [address] POCT Glucose (01/30/2019 11:29 AM EDT) P athologist Signature POC Glucose 156 65 - 199 [facility] Comment: Supplemental ranges: <140 mg/dL before meals <180 mg/dL all other times of the day Specimen Anatomical Collection Method Collection Time Receive d Time (Source) Location / / Volume Laterality Blood specimen 01/30/2019 11:29 9 (specimen) AM EDT 11:29 AM EDT Lizz Cabrera MD POINT OF CARE TEST ORDERABLE S Performing Organization Address City/[facility]/ZIP Code Phon e Number [place] [id number] [facility] [address] POCT Glucose (01/30/2019 7:23 AM EDT) P athologist Signature POC Glucose 188 65 - 199 [facility] mg/dL [facility] Comment: Supplemental ranges: <140 mg/dL before meals <180 mg/dL all other times of the day Specimen Anatomical Collection Method Collection Time Receive d Time (Source) Location / / Volume Laterality Blood specimen 01/30/2019 7:23 AM 019 7:23 (specimen) EDT AM EDT Lizz Cabrera MD POINT OF CARE TEST ORDERABLE S Performing Organization Address [facility]/[place]IP [place] [address] EKG 12 Lead (01/30/2019 6:53 AM EDT) Component Value Ref Range Test Analysis Performed Pathologis t Method Time At Signature Ventricular rate 60 BPM MUSE SYSTEM Atrial Rate 60 BPM MUSE SYSTEM P-R Interval 220 ms MUSE SYSTEM QRS Duration 124 ms MUSE SYSTEM Q-T Interval 438 ms MUSE SYSTEM QTC Calculated 438 ms MUSE SYSTEM (Bezet) Calculated P [place] 101 degrees MUSE SYSTEM Calculated R [place] -65 degrees MUSE SYSTEM Calculated T [place] 124 degrees MUSE SYSTEM INTERPRETATION Sinus rhythm with 1st degree A-V block MUSE SYSTEM Left anterior fascicular block Anterolateral [place] ??(cited on or before 21-JUL-2018) Possible ??Inferior [...] Bell MD ECG ORDERABLES Performing Organization Address City/[facility]/ZIP Code Phon e Number MUSE SYSTEM POCT Glucose (01/29/2019 8:27 PM EDT) athologist Signature POC Glucose 140 65 - 199 [place] mg/dL [facility] Comment: Supplemental ranges: <140 mg/dL before meals <180 mg/dL all other times of the day Specimen Anatomical Collection Method Collection Time Receive d Time (Source) Location / / Volume Laterality Blood specimen 01/29/2019 8:27 PM 019 8:27 (specimen) EDT PM EDT Lizz Cabrera MD POINT OF CARE TEST ORDERABLE S Performing Organization Address City/State/ZIP Code Phon e Number [address] POCT Glucose (01/29/2019 4:39 PM EDT) athologist Signature POC Glucose 150 65 - 199 [place] mg/dL [facility] Comment: Supplemental ranges: <140 mg/dL before meals <180 mg/dL all other times of the day Specimen Anatomical Collection Method Collection Time Receive d Time (Source) Location / / Volume Laterality Blood specimen 01/29/2019 4:39 PM 019 4:39 (specimen) EDT PM EDT Lizz Cabrera MD POINT OF CARE TEST ORDERABLE S Performing Organization Address City/State/ZIP Code Phon e Number [address] POCT Glucose (01/29/2019 12:12 PM EDT) athologist Signature POC Glucose 192 65 - 199 [place] mg/dL [facility] Comment: Supplemental ranges: <140 mg/dL before meals <180 mg/dL all other times of the day Specimen Anatomical Collection Method Collection Time Receive d Time (Source) Location / / Volume Laterality Blood specimen 01/29/2019 12:12 9 (specimen) PM EDT 12:12 PM EDT Lizz Cabrera MD POINT OF CARE TEST ORDERABLE S Performing Organization Address City/State/[place] [address] (ABNORMAL) BLOOD GAS 2 ARTERIAL (01/29/2019 9:13 AM EDT) P athologist Signature pH Art 7.43 7.35 - [facility] 7.45 [facility] pCO2 Art 34 (L) 35 - 45 [facility] mmHg [facility] pO2 Art 82 (L) 85 - 104 [facility] LABORATORY HCO3 Art 21.8 20.0 - [facility] 26.0 [facility] mmol/L [facility] BE Art -2.6 -3.0 - 3.0 [facility] mmol/L [facility] Hgb Blood Gas 14.1 13.7 - [facility] 16.5 gm/dL [facility] O2HB Art 94.3 94.0 - [facility] 97.0 % [facility] COHB Art 0.8 % [facility] Comment: Nonsmokers: 0.5-1.5% COHB Smokers: Variable, but usually less than 10% Toxic: 20-30% COHB Lethal: Greater than 60% COHB METHB Art 0.6 <=1.5 % [facility] LABORATORY Na Whole Blood 135 135 - 145 mmol/L [facility] K Whole Blood 4.6 3.5 - 5.0 mmol/L [facility] Comment: Please note: Patients with WBC >100,000 may have falsely elevated Potassium levels. Contact the Clinical Chemistry L aboratory if there are any questions. ICa Whole Blood 1.12 (L) 1.15 - 1.33 mmol/L [facility] Comment: Note: ??Total bilirubin higher than 20 m g/dL may lead to falsely low ionized calcium. CL Whole Blood 101 98 - 107 mmol/L [facility]ORATORY Gluc Whole Bld 289 (H) 65 - 199 mg/dL [facility] LAB[facility] Comment: Diabetes: >=200 mg/dL plus symp toms. Lactate WB 2.9 (H) 0.5 - 2.2 mmol/L [facility] LABORATORY Specimen Anatomical Collection Method Collection Time Receive d Time (Source) Location / / Volume Laterality Blood specimen 01/29/2019 9:13 AM 019 9:13 (specimen) EDT AM EDT Lizz Cabrera MD CHEMISTRY ORDERABLES Performing Organization Address City/State/ZIP [place] [address] Lower extremity vein fito puentes (01/29/2019 8:32 AM EDT) Component Value Ref Test Analysis Performed At [facility] gist Range Method Time Signature VB Text Department: Vascular Surgery Lab VASCUBASE Report Patient: [id number] (CONNOR GAN) CPT: 66478 ICD10: I25.110;Z01.818 Referring Physician: KELLY OLIVEIRA ?? [...] Laterality 01/29/2019 8:32 AM EDT Kelly Oliveira APRN VASCULAR ORDERABLES Performing Organization Address City/State/ZIP Code Phon e Number [facility] POCT Glucose (01/29/2019 7:44 AM EDT) P athologist Signature POC Glucose 194 65 - 199 [facility] mg/dL [facility] Comment: Supplemental ranges: <140 mg/dL before meals <180 mg/dL all other times of the day Specimen Anatomical Collection Method Collection Time Receive d Time (Source) Location / / Volume Laterality Blood specimen 01/29/2019 7:44 AM 019 7:44 (specimen) EDT AM EDT Lizz Cabrera MD POINT OF CARE TEST ORDERABLE S Performing Organization Address City/State/Z[place] [address] EKG 12 Lead (01/29/2019 7:11 AM EDT) Component Value Ref Range Test Analysis Performed Pathologis t Method Time At Signature Ventricular rate 70 BPM MUSE SYSTEM Atrial Rate 70 BPM MUSE SYSTEM P-R Interval 204 ms MUSE SYSTEM QRS Duration 118 ms MUSE SYSTEM Q-T Interval 414 ms MUSE SYSTEM QTC Calculated 447 ms MUSE SYSTEM (Bezet) Calculated P [place] -8 degrees MUSE SYSTEM Calculated R [place] -62 degrees MUSE SYSTEM Calculated T [place] 123 degrees MUSE SYSTEM INTERPRETATION Normal sinus rhythm MUSE SYSTEM Left axis deviation Anterolateral infarct (cited on or before 21-JUL-2018) Inferior infarct Abnormal ECG When compared with ECG of 28-JAN-2019 06:12, [place] interval has decreased T wave inversion less [...] (ABNORMAL) Differential, Automated (01/29/2019 4:43 AM EDT) [facility] gist Method Time Signature Neutrophils % 49.2 % [facility] Neutr Abs (ANC) 5.05 1.70 - [facility] 6.10 [facility] x10(3)[facility] LABORATORY Lymphocytes % 39.4 % [facility] Lymphocytes Abs 4.0 (H) 0.9 - 3.2 [facility] x10(3)/[facility] LABORATORY Monocytes % 8.4 % [facility] Monocyte Abs 0.9 0.3 - 0.9 [facility] x10(3)/[facility] LABORATORY Eosinophils % 1.9 % [facility] Eosinophils Abs 0.2 0.0 - 0.4 [facility] x10(3)/[facility] LABORATORY Basophils % 0.6 % [facility] Basophils Abs 0.1 0.0 - 0.1 [facility] x10(3)/[facility] LABORATORY Immature Gran % 0.50 % [facility] Comment: Immature granulocytes(IG's)percentage an d absolute count will include metamyelocytes, myelocytes, and promyelo cytes. Blood smears from CBCs yielding IG's will be scanned manually for concor danjessica. If this scan disagrees with the automated IG or if promyelocytes are not ed, a manual differential will be performed. Corinne Gran Abs 0.05 (H) 0.00 - 0.04 x10(3)/[facility] LABORATORY Specimen Anatomical Collection Method Collection Time Receive d Time (Source) Location / / Volume Laterality Blood specimen 01/29/2019 4:43 AM 019 4:55 (specimen) EDT AM EDT Resulting Agency Comment Spec In Lab Galindo Bell MD HEMATOLOGY ORDERABLES Performing Organization Address City/State/Z[place] [address] (ABNORMAL) Hemogram (01/29/2019 4:43 AM EDT) Analysis Performed At Patho logist Time Signature WBC 10.3 (H) 4.0 - 9.5 [facility] x10(3)/[facility] LABORATORY RBC 4.33 (L) 4.58 - [facility] 5.54 [facility] x10(6)/[facility] LABORATORY Hemoglobin 13.2 (L) 13.7 - [facility] 16.[facility] gm/dL [facility] Hematocrit 38.1 (L) 40.5 - [facility] 48.5 % [facility] MCV 88.0 82.9 - [facility] 93.1 [facility] LABORATORY MCH 30.5 27.5 - [facility] ROM[place] 32.1 pg [facility] MCHC 34.6 32.0 - [facility] [place] 35.7 gm/dL [facility] Platelets 201 145 - 357 [facility] x10(3)/[facility] LABORATORY RDWSD 42.5 36.0 - [facility] ROM[place] 45.0 [facility] LABORATORY RDWCV 13.2 11.4 - [facility] [place] 13.8 % [facility] MPV 10.6 7.6 - 12.9 [facility] LABORATORY nRBC % Auto 0.0 % [facility] nRBC Abs Auto 0.000 0.000 - [facility] [place] 0.000 [facility] x10(3)/[facility] LABORATORY Specimen Anatomical Collection Method Collection Time Receive d Time (Source) Location / / Volume Laterality Blood specimen 01/29/2019 4:43 AM 019 4:55 (specimen) EDT AM EDT Resulting Agency Comment Spec In Lab Galindo Bell MD HEMATOLOGY ORDERABLES Performing Organization Address City/State/ZIP [place] [address] (ABNORMAL) BMP w/fasting Glucose (01/29/2019 4:43 AM EDT) athologist Signature Glucose 178 (H) 65 - 99 [facility] Fasting mg/dL [facility] Comment: ?Fasting* Glucose Interpretive C riteria [...] of Diabetes Mellitus, Position Statement from the [place] [employer]. ??Diabete s Care, Volume 33, Supplement 1, Aug 2009 BUN 18 10 - 20 mg/dL [facility]ORATORY Creatinine 0.88 0.80 - 1.50 mg/dL [facility] LABORATORY Sodium 138 135 - 145 mmol/L [facility] LABORATORY Potassium 4.6 3.5 - 5.0 mmol/L [facility]OR[facility]ORY Comment: Please note: ??Patients with WBC >100,00 0 may have falsely elevated Potassium levels. ??For accurate Potassium quantif ication in these patients send serum separator tube (gold top) for subsequent determinations. ??Contact the Clinical Chemistry Laboratory if there are any qu estions. Chloride 105 98 - 107 mmol/L [facility] CO2 23 22 - 31 mmol/L [facility] Anion Gap 10 5 - 15 mmol/L [facility] Calcium 8.7 8.5 - 10.5 mg/dL [facility] LABORATORY Estimated GFR 90 >=60 mL/min/1.73 m?? [facility] Comment: The eGFR was calculated using the CKD-EP I equation. As with all creatinine based estimates of kidney function, eGFR values calculated with the CKD-EPI equation are not accurate in patients wi th acute kidney failure, extremes of body mass or the acutely ill. [email or web address] eGFR 104 >=60 mL/min/1.73 m?? [facility] Comment: The eGFR was calculated using the CKD-EP I equation. As with all creatinine based estimates of kidney function, eGFR values calculated with the CKD-EPI equation are not accurate in patients wi th acute kidney failure, extremes of body mass or the acutely ill. [email or web address] Specimen Anatomical Collection Method Collection Time Receive d Time (Source) Location / / Volume Laterality Blood specimen 01/29/2019 4:43 AM 019 4:55 (specimen) EDT AM EDT Resulting Agency Comment Spec In Lab Lizz Cabrera MD CHEMISTRY ORDERABLES Performing Organization Address City/[facility]/ZIP Code Phon e Number [address] POCT Glucose (01/28/2019 8:18 PM EDT) athologist Signature POC Glucose 154 65 - 199 [facility] mg/dL [facility] Comment: Supplemental ranges: <140 mg/dL before meals <180 mg/dL all other times of the day Specimen Anatomical Collection Method Collection Time Receive d Time (Source) Location / / Volume Laterality Blood specimen 01/28/2019 8:18 PM 019 8:18 (specimen) EDT PM EDT Lizz Cabrera MD POINT OF CARE TEST ORDERABLE S Performing Organization Address City/State/Z[place] [address] POCT Glucose (01/28/2019 4:53 PM EDT) P athologist Signature POC Glucose 133 65 - 199 [facility] mg/dL [facility] Comment: Supplemental ranges: <140 mg/dL before meals <180 mg/dL all other times of the day Specimen Anatomical Collection Method Collection Time Receive d Time (Source) Location / / Volume Laterality Blood specimen 01/28/2019 4:53 PM 019 4:53 (specimen) EDT PM EDT Lizz Cabrera MD POINT OF CARE TEST ORDERABLE S Performing Organization Address City/State/ZIP Code Phon e Number [place] [id number]OS[address] LAB[address] (ABNORMAL) Differential, Automated (01/28/2019 1:35 PM EDT) Patholo gist Method Time Signature Neutrophils % 59.7 % [facility] Neutr Abs (ANC) 6.94 (H) 1.70 - [facility] 6.10 [facility] x10(3)/[facility] LABORATORY Lymphocytes % 29.6 % [facility] Lymphocytes Abs 3.4 (H) 0.9 - 3.2 [facility] x10(3)/[facility] LABORATORY Monocytes % 7.2 % [facility] Monocyte Abs 0.8 0.3 - 0.9 [facility] x10(3)/[facility] LABORATORY Eosinophils % 2.2 % [facility] Eosinophils Abs 0.2 0.0 - 0.4 [facility] x10(3)/[facility] LABORATORY Basophils % 0.7 % [facility] Basophils Abs 0.1 0.0 - 0.1 [facility] x10(3)/[facility] LABORATORY Immature Gran % 0.60 % [facility] Comment: Immature granulocytes(IG's)percentage an d absolute count will include metamyelocytes, myelocytes, and promyelo cytes. Blood smears from CBCs yielding IG's will be scanned manually for concor dance. If this scan disagrees with the automated IG or if promyelocytes are not ed, a manual differential will be performed. Corinne Gran Abs 0.07 (H) 0.00 - 0.04 x10(3)/[facility] LABORATORY Specimen Anatomical Collection Method Collection Time Receive d Time (Source) Location / / Volume Laterality Blood specimen 01/28/2019 1:35 PM 019 1:41 (specimen) EDT PM EDT Resulting Agency Comment Spec In Lab Galindo Bell MD HEMATOLOGY ORDERABLES Performing Organization Address City/State/Z[place] [address] (ABNORMAL) Hemogram (01/28/2019 1:35 PM EDT) Analysis Performed At Patho logist Time Signature WBC 11.6 (H) 4.0 - 9.5 [facility] x10(3)/[facility] LABORATORY RBC 4.60 4.58 - [facility] 5.54 [facility] x10(6)/[facility] LABORATORY Hemoglobin 14.1 13.7 - [facility] 16.5 gm/dL [facility] Hematocrit 40.4 (L) 40.5 - [facility] 48.5 % [facility] MCV 87.8 82.9 - [facility] 93.1 [facility] LABORATORY MCH 30.7 27.5 - [facility] 32.1 pg [facility] MCHC 34.9 32.0 - [facility] 35.7 gm/dL [facility] Platelets 279 145 - 357 [facility] x10(3)/[facility] LABORATORY RDWSD 42.3 36.0 - [facility] ROMY 45.0 [facility] LABORATORY RDWCV 13.2 11.4 - [facility] [place] 13.8 % [facility] MPV 10.8 7.6 - 12.9 [facility] LABORATORY nRBC % Auto 0.0 % [facility] nRBC Abs Auto 0.000 0.000 - [facility] 0.000 [facility] x10(3)/[facility] LABORATORY Specimen Anatomical Collection Method Collection Time Receive d Time (Source) Location / / Volume Laterality Blood specimen 01/28/2019 1:35 PM 019 1:41 (specimen) EDT PM EDT Resulting Agency Comment Spec In Lab Galindo Bell MD HEMATOLOGY ORDERABLES Performing Organization Address City/State/Z[place] [address] (ABNORMAL) BMP w/fasting Glucose (01/28/2019 1:35 PM EDT) P athologist Signature Glucose 122 (H) 65 - 99 [facility] Fasting mg/dL [facility] Comment: ?Fasting* Glucose Interpretive C riteria [...] of Diabetes Mellitus, Position Statement from the [place] [employer]. ??Diabete s Care, Volume 33, Supplement 1, Aug 2009 BUN 14 10 - 20 mg/dL [facility]ORAT[facility] Creatinine 0.97 0.80 - 1.50 mg/dL [facility] LABORATORY Sodium 140 135 - 145 mmol/L [facility]ORY Potassium 5.0 3.5 - 5.0 mmol/L [facility] Comment: Please note: ??Patients with WBC >100,00 0 may have falsely elevated Potassium levels. ??For accurate Potassium quantif ication in these patients send serum separator tube (gold top) for subsequent determinations. ??Contact the Clinical Chemistry Laboratory if there are any qu estions. Chloride 104 98 - 107 mmol/L [facility] CO2 22 22 - 31 mmol/L [facility] Anion Gap 14 5 - 15 mmol/L [facility] Calcium 9.0 8.5 - 10.5 mg/dL [facility]ORY Estimated GFR 81 >=60 mL/min/1.73 m?? [facility] Comment: The eGFR was calculated using the CKD-EP I equation. As with all creatinine based estimates of kidney function, eGFR values calculated with the CKD-EPI equation are not accurate in patients wi th acute kidney failure, extremes of body mass or the acutely ill. [email or web address] eGFR 94 >=60 mL/min/1.73 m?? [facility] Comment: The eGFR was calculated using the CKD-EP I equation. As with all creatinine based estimates of kidney function, eGFR values calculated with the CKD-EPI equation are not accurate in patients wi th acute kidney failure, extremes of body mass or the acutely ill. [email or web address] Specimen Anatomical Collection Method Collection Time Receive d Time (Source) Location / / Volume Laterality Blood specimen 01/28/2019 1:35 PM 019 1:41 (specimen) EDT PM EDT Resulting Agency Comment Spec In Lab Lizz Cabrera MD CHEMISTRY ORDERABLES Performing Organization Address City/State/ZIP Code Phon e Number [address] POCT Glucose (01/28/2019 11:18 AM EDT) athologist Signature POC Glucose 175 65 - 199 [facility]dL [facility] Comment: Supplemental ranges: <140 mg/dL before meals <180 mg/dL all other times of the day Specimen Anatomical Collection Method Collection Time Receive d Time (Source) Location / / Volume Laterality Blood specimen 01/28/2019 11:18 9 (specimen) AM EDT 11:18 AM EDT Lizz Cabrera MD POINT OF CARE TEST ORDERABLE S Performing Organization Address City/State/ZIP Code Phon e Number [address] POCT Glucose (01/28/2019 7:52 AM EDT) athologist Signature POC Glucose 193 65 - 199 [facility]dL [facility] Comment: Supplemental ranges: <140 mg/dL before meals <180 mg/dL all other times of the day Specimen Anatomical Collection Method Collection Time Receive d Time (Source) Location / / Volume Laterality Blood specimen 01/28/2019 7:52 AM 019 7:52 (specimen) EDT AM EDT Lizz Cabrera MD POINT OF CARE TEST ORDERABLE S Performing Organization Address City/State/[place] [address] EKG 12 Lead (01/28/2019 6:12 AM EDT) [facility] gist Method Time Signature Ventricular rate 66 BPM MUSE SYSTEM Atrial Rate 66 BPM MUSE SYSTEM P-R Interval 236 ms MUSE SYSTEM QRS Duration 120 ms MUSE SYSTEM Q-T Interval 422 ms MUSE SYSTEM QTC Calculated 442 ms MUSE SYSTEM (Bezet) Calculated P [place] 13 degrees MUSE SYSTEM Calculated R [place] -47 degrees MUSE SYSTEM Calculated T [place] 152 degrees MUSE SYSTEM INTERPRETATION Sinus rhythm with 1st degree A-V block MUSE SYSTEM Left axis deviation Septal infarct (cited on or before 21-JUL-2018) Possible Lateral infarct (cited on or before 21-JUL-2018) Abnormal ECG When compared with ECG of 26-JAN-2019 22:23, [place] interval has increased Confirmed by MD Jimmie, Dylan Shultz ([id number]) on 01/28/2019 10:42:46 AM Specimen Anatomical Collection Method Collection Time Receive d Time (Source) Location / / Volume Laterality 01/28/2019 6:12 AM 9 EDT 10:42 AM EDT Lizz Cabrera MD ECG ORDERABLES Performing Organization Address City/State/ZIP Code Phon e Number MUSE SYSTEM POCT Glucose (01/27/2019 7:47 PM EDT) P athologist Signature POC Glucose 154 65 - 199 [facility]dL [facility] Comment: Supplemental ranges: <140 mg/dL before meals <180 mg/dL all other times of the day Specimen Anatomical Collection Method Collection Time Receive d Time (Source) Location / / Volume Laterality Blood specimen 01/27/2019 7:47 PM 019 7:47 (specimen) EDT PM EDT Lizz Cabrera MD POINT OF CARE TEST ORDERABLE S Performing Organization Address City/State/ZIP Code Phon e Number [address] POCT Glucose (01/27/2019 4:48 PM EDT) athologist Signature POC Glucose 145 65 - 199 [place] mg/dL [facility] Comment: Supplemental ranges: <140 mg/dL before meals <180 mg/dL all other times of the day Specimen Anatomical Collection Method Collection Time Receive d Time (Source) Location / / Volume Laterality Blood specimen 01/27/2019 4:48 PM 019 4:48 (specimen) EDT PM EDT Lizz Cabrera MD POINT OF CARE TEST ORDERABLE S Performing Organization Address City/State/ZIP Code Phon e Number [address] ECHOCARDIOGRAM COMPLETE W CONTRAST (01/27/2019 3:22 PM EDT) athologist Signature EF 45 [facility] SYSTEM Anatomical Region Laterality Modality Other Specimen (Source) Anatomical Location Collection Method / Collectio n Time Received Time / Laterality Volume 01/28/2019 Narrative 01/28/2019 1:12 PM EDT Procedure: ?Transthoracic Echocardiogram Patient: ?MALIK Vera ?(Age): 1950(68y) Med Rec#: ? [id number] ?Sex: ?M ? [place] Loc[place] ? [facility] ?Ht / Wt: ??166(cm)/131(kg) Pt. Loc: ?Adult Floor ? BSA: ?2.32 Study Date: ?? 01/27/2019 ?Pt. Type: Inpatient Tape: ? Referring: JESSICA Reading: Wilton Roper ([id number]) Head Miller: Vikas Cooper MS, [facility] Diagnosis: *Ischemic cardiomyopathy (I25.5) *Non-ST elevation [...] E-wave Vmax ?0.8 ?m/sec ? MV deceleration [id number] ?msec ? MV A-wave Vmax ?0.9 ?m/sec [...] ? Mid-Inferior ?Hypokinetic ? Mid-Inferoseptal ?Hypokinetic ? [place]-Septal ? Akinetic ? [place]-Anterior ? Hypokinetic ? [place]-Lateral ?Hypokinetic ? [place]-Inferior ? Hypokinetic ? [place]-Tip ?Akinetic ? This report has been electronically sign ed by: _ Wilton Roper MD ? 01/28/2019 13:11: 32 Images reviewed and interpretation verif ied [facility] Cardiac Ultrasound Laboratory Procedure Note Wilton Roper MD - 01/28/2019 Procedure: Transthoracic Echocardiogram Patient: MALIK Vera (Age): [birth year]68y) Med Rec#: [id number] Sex: M Site Loc: [facility] Ht / Wt: 166(cm)/131(kg) Pt. Loc: Adult Floor BSA: 2.32 Study Date: 01/27/2019 Pt. Type: Inpatie nt Tape: Referring: [facility] Reading: Wilton Roper ([id number]) Head Miller: Vikas Cooper MS, [facility] Diagnosis: *Ischemic cardiomyopathy (I25.5) *Non-ST elevation [...] MV E-wave Vmax 0.8 m/sec MV deceleration [id number] msec MV A-wave Vmax 0.9 m/sec MV E:A ratio 0.9 ratio LV E:e' septal ratio22.8 ratio LV E:e' lateral rati13.1 ratio Tricuspid Valve Value Units (Range) RAP 3 mmHg Wall Motion: Segment Name Rest Base-Anteroseptal Normal Base-Anterior Normal Base-Anterolateral Normal Base-Posterolateral Normal Base-Inferior Akinetic Base-Inferoseptal Hypokinetic Mid-Anteroseptal Hypokinetic Mid-Anterior Normal Mid-Anterolateral Normal Mid-Posterolateral Hypokinetic Mid-Inferior Hypokinetic Mid-Inferoseptal Hypokinetic [place]-Septal Akinetic [place]-Anterior Hypokinetic [place]-Lateral Hypokinetic [place]-Inferior Hypokinetic [place]-Tip Akinetic This report has been electronically sign ed by: _ Wilton Roper MD 01/28/2019 13:11:32 Images reviewed and interpretation ver ied [facility] Cardiac Ultrasound Laboratory Galindo Bell MD ECHO ORDERABLES CARDIAC CATHETERIZATION (01/27/2019 12:37 PM EDT) Anatomical Region Laterality Modality Other Specimen (Source) Anatomical Location Collection Method / Collectio n Time Received Time / Laterality Volume Narrative 01/27/2019 1:29 PM EDT ?[facility] ? Cardiac Cathete rization/Intervention Report ? Patient Name: MALIK, CONNOR G. ? Procedure Date: 01/27/2019 ? A #: [id number] ? Primary Physician: Carin, Taisha Kathleen ? Case #: [id number] ? File Name: [id number] ? Catheterization Order Number: [id number] ? [facility] ? Final Report [place], [place] ? Patient Name: ? CONNOR G. MATH IEU ?ID#: ?[id number] ? : ?1950 ? Procedure Date: ? January 27, 2019 ?Case #: ? [id number] ? Room: ? 6 ? Case Physician: ? Taisha rodriguez M.D. ?Start: ?11:50 ? Admission: ??01/27/2019 ? [...] was designated as ASA ?Class III. The [facility] clinical fr ailty scale is 4. [...] procedure was Urgent. 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 vessel segment of the le ft circumflex artery (LCX). ??The LCX was [...] vident early complications. ?Results discussed with service airplane woodworker Dr Lizz Cabrera, and with the ?patient and their family. Adiele r sent to referring airplane woodworker, ?Petra. ?The attending physician was sommer t for the entire procedure. ?Dr. Taisha Watson M.D. was present during the moderate sedation ?intraservice time as documented by the sedation nurse. ??Case time = 00:31. ?Dr. Taisha Watson M.D. perf ormed the coronary angiography and left ?heart catheterization. ? Taisha J Coylewright, ? M.D. ? Electronically Signed by: Taisha J Coylew right, M.D. ? Report Finalized: 01/27/2019 ??13:26 ? Report Last Ammended: 02/15/2019 ??16:28 ? Procedure Note aTisha Watson MD - 02/15/2019For matting of this note might be different from the original. [facility] Cardiac Catheterization/Intervention Re port Patient Name: CONNOR GAN Procedure Date: 01/27/2019 A #: [id number] Primary Physician: Taisha Watson Case #: [id number] File Name: [id number] Catheterization Order Number: [id number] [facility] Final Report [place], [place] Patient Name: CONNOR GAN ID#: [id number] : 1950 Procedure Date: January 27, 2019 [...] was designated as ASA Class III. The [facility] clinical frailty sc rahul is 4. [...] e was Urgent. 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 The attending physician was present [...] EDT) athologist Signature Heparin UFH 0.36 IU/mL [facility] LABORATORY Comment: Guidelines for therapeutic unfractionate [...] Organization Address City/State/ZIP [place] [address] (ABNORMAL) POCT Glucose (01/27/2019 10:45 AM EDT) athologist Signature POC Glucose 204 (H) 65 - 199 [facility] mg/dL [facility] Comment: Supplemental ranges: <140 mg/dL before meals <180 mg/dL all other times of the day Specimen Anatomical Collection Method Collection Time Receive d Time (Source) Location / / Volume Laterality Blood specimen 01/27/2019 10:45 9 (specimen) AM EDT 10:45 AM EDT Lizz Cabrera MD POINT OF CARE TEST ORDERABLE S Performing Organization Address City/State/ZIP Code Phon e Number [address] (ABNORMAL) POCT Glucose (01/27/2019 7:36 AM EDT) P athologist Signature POC Glucose 242 (H) 65 - 199 [facility] Comment: Supplemental ranges: <140 mg/dL before meals <180 mg/dL all other times of the day Specimen Anatomical Collection Method Collection Time Receive d Time (Source) Location / / Volume Laterality Blood specimen 01/27/2019 7:36 AM 019 7:36 (specimen) EDT AM EDT Lizz Cabrera MD POINT OF CARE TEST ORDERABLE S Performing Organization Address City/State/Z[place] [address] (ABNORMAL) Differential, Automated (01/27/2019 4:08 AM EDT) Patholo gist Method Time Signature Neutrophils % 45.7 % [facility] Neutr Abs (ANC) 5.04 1.70 - [facility] 6.10 [facility] x10(3)/[facility] LABORATORY Lymphocytes % 42.8 % [facility] Lymphocytes Abs 4.7 (H) 0.9 - 3.2 [facility] x10(3)/[facility] LABORATORY Monocytes % 7.3 % [facility] Monocyte Abs 0.8 0.3 - 0.9 [facility] x10(3)/[facility] LABORATORY Eosinophils % 2.7 % [facility] Eosinophils Abs 0.3 0.0 - 0.4 [facility] x10(3)/[facility] LABORATORY Basophils % 0.7 % [facility] Basophils Abs 0.1 0.0 - 0.1 [facility] x10(3)/[facility] LABORATORY Immature Gran % 0.80 % [facility] Comment: Immature granulocytes(IG's)percentage an d absolute count will include metamyelocytes, myelocytes, and promyelo cytes. Blood smears from CBCs yielding IG's will be scanned manually for concor dance. If this scan disagrees with the automated IG or if promyelocytes are not ed, a manual differential will be performed. Corinne Gran Abs 0.09 (H) 0.00 - 0.04 x10(3)/[facility] LABORATORY Specimen Anatomical Collection Method Collection Time Receive d Time (Source) Location / / Volume Laterality Blood specimen 01/27/2019 4:08 AM 019 4:50 (specimen) EDT AM EDT Resulting Agency Comment Spec In Lab Galindo Bell MD HEMATOLOGY ORDERABLES Performing Organization Address City/State/Z[place] [address] (ABNORMAL) Hemogram (01/27/2019 4:08 AM EDT) Analysis Performed At Patho logist Time Signature WBC 11.0 (H) 4.0 - 9.5 [facility] x10(3)/[facility] LABORATORY RBC 4.20 (L) 4.58 - [facility] 5.54 [facility] x10(6)/[facility] LABORATORY Hemoglobin 12.6 (L) 13.7 - [facility] 16.5 gm/dL [facility] Hematocrit 37.9 (L) 40.5 - [facility] 48.5 % [facility] MCV 90.2 82.9 - [facility] 93.1 [facility] LABORATORY MCH 30.0 27.5 - [facility] 32.1 pg [facility] MCHC 33.2 32.0 - [facility] 35.7 gm/dL [facility] Platelets 182 145 - 357 [facility] x10(3)/[facility] LABORATORY RDWSD 42.7 36.0 - [facility] 45.0 [facility] RDWCV 13.2 11.4 - [facility] 13.8 % [facility] MPV 10.7 7.6 - 12.9 [facility] LABORATORY nRBC % Auto 0.0 % [facility] nRBC Abs Auto 0.000 0.000 - [facility] 0.000 [facility] x10(3)/[facility] LABORATORY Specimen Anatomical Collection Method Collection Time Receive d Time (Source) Location / / Volume Laterality Blood specimen 01/27/2019 4:08 AM 019 4:50 (specimen) EDT AM EDT Resulting Agency Comment Spec In Lab Galnido Bell MD HEMATOLOGY ORDERABLES Performing Organization Address City/State/Z[place] [address] Lipid Panel (01/27/2019 4:08 AM EDT) athologist Signature Chol, Total 94 mg/dL [facility] Comment: Lower Risk: <200 mg/dL Average Risk: 200-239 mg/dL Higher Risk: >px=228 mg/dL Triglycerides 277 mg/dL [facility] Comment: Average Risk/Lower Risk: <150 mg/dL Borderline High Risk: 150-199 mg/dL High Risk: 200-499 mg/dL Very High Risk: >uv=887 mg/dL HDL 37 mg/dL [facility] LAB[facility]ORY Comment: Males: ?? Higher Risk: <40 mg/dL Females: ?? HIgher Risk: <50 mg/dL LDL Cholesterol 2 mg/dL [facility] Comment: Lowest Risk: <100 mg/dL Lower Risk: 100-129 mg/dL Borderline High Risk: 130-159 mg/dL High Risk: 160-189 mg/dL Very High Risk: >px=653 mg/dL Chol/HDL Ratio 2.5 ratio [facility] Lipid Interpretation See Note [facility] Comment: Lipid management should be guided by a p atient? s ASCVD risk, goals and preferences. ACC/AHA Guidelines recommend high intens ity statin if clinical ASCVD or LDL greater than or equal to 190 mg/dL. http://[employer].com/AYH-OVO-Pgyljybah Adults aged 40-75 with LDL 70-189 mg/dL should have their 10 year ASCVD risk estimated with the ACC/AHA ASCVD risk es timator http://tools.acc.org/JSUWD-Vfel-Mnxfdlls r/ Statin should be discussed if risk [...] Organization Address City/State/Z[place] [address] Creatinine (01/27/2019 4:08 AM EDT) athologist Signature Creatinine 0.84 0.80 - [facility] 1.50 mg/dL [facility] Estimated GFR 91 >=60 [facility] mL/min/1.7 [facility] 3 ? HOSPITAL LABORATORY Comment: The eGFR was calculated using the CKD-EP I equation. As with all creatinine based estimates of kidney function, eGFR values calculated with the CKD-EPI equation are not accurate in patients wi th acute kidney failure, extremes of body mass or the acutely ill. [email or web address] eGFR 106 >=60 mL/min/1.73 m?? [facility] Comment: The eGFR was calculated using the CKD-EP I equation. As with all creatinine based estimates of kidney function, eGFR values calculated with the CKD-EPI equation are not accurate in patients wi th acute kidney failure, extremes of body mass or the acutely ill. [email or web address] Specimen Anatomical Collection Method Collection Time Receive d Time (Source) Location / / Volume Laterality Blood specimen 01/27/2019 4:08 AM 019 4:50 (specimen) EDT AM EDT Resulting Agency Comment Spec In Lab Galindo Bell MD CHEMISTRY ORDERABLES Performing Organization Address City/[facility]/ZIP Code Phon e Number [address] (ABNORMAL) BUN (01/27/2019 4:08 AM EDT) P athologist Signature BUN 21 (H) 10 - 20 [facility] Specimen Anatomical Collection Method Collection Time Receive d Time (Source) Location / / Volume Laterality Blood specimen 01/27/2019 4:08 AM 019 4:50 (specimen) EDT AM EDT Resulting Agency Comment Spec In Lab Galindo Bell MD CHEMISTRY ORDERABLES Performing Organization Address [facility] [place] [address] (ABNORMAL) Electrolytes panel (01/27/2019 4:08 AM EDT) athologist Signature Sodium 137 135 - 145 [facility] mmol/L [facility] Potassium 4.1 3.5 - 5.0 [facility] mmol/L [facility] Comment: Please note: ??Patients with WBC >100,00 0 may have falsely elevated Potassium levels. ??For accurate Potassium quantif ication in these patients send serum separator tube (gold top) for subsequent determinations. ??Contact the Clinical Chemistry Laboratory if there are any qu estions. Chloride 103 98 - 107 mmol/L [facility] CO2 21 (L) 22 - 31 mmol/L [facility] Anion Gap 13 5 - 15 mmol/L [facility] Specimen Anatomical Collection Method Collection Time Receive d Time (Source) Location / / Volume Laterality Blood specimen 01/27/2019 4:08 AM 019 4:50 (specimen) EDT AM EDT Resulting Agency Comment Spec In Lab Galindo Bell MD CHEMISTRY ORDERABLES Performing Organization Address City/[facility]/ZIP [facility] [place] [address] (ABNORMAL) Glucose, fasting (01/27/2019 4:08 AM EDT) P athologist Signature Glucose 224 (H) 65 - 99 [facility] Fasting mg/dL [facility] Comment: ?Fasting* Glucose Interpretive C riteria [...] of Diabetes Mellitus, Position Statement from the [place] [employer]. ??Diabete s Care, Volume 33, Supplement 1, Aug 2009 Specimen Anatomical Collection Method Collection Time Receive d Time (Source) Location / / Volume Laterality Blood specimen 01/27/2019 4:08 AM 019 4:50 (specimen) EDT AM EDT Resulting Agency Comment Spec In Lab Galindo Bell MD CHEMISTRY ORDERABLES Performing Organization Address City/[facility]/ZIP Code Phon e Number [address] LDL Cholesterol, Direct (01/27/2019 4:08 AM EDT) athologist Signature LDL Chol 39 mg/dL [facility] LABORATORY Comment: Lowest Risk: <100 mg/dL Lower Risk: 100-129 mg/dL Borderline High Risk: 130-159 mg/dL High Risk: 160-189 mg/dL Very High Risk: >ah=295 mg/dL Specimen Anatomical Collection Method Collection Time Receive d Time (Source) Location / / Volume Laterality Blood specimen 01/27/2019 4:08 AM 019 4:50 (specimen) EDT AM EDT Resulting Agency Comment Spec In Lab Galindo Bell MD CHEMISTRY ORDERABLES Performing Organization Address City/State/Z[place] [address] (ABNORMAL) Hemoglobin A1c (01/27/2019 4:08 AM EDT) Analysis Performed At Patho logist Time Signature Hemoglobin A1C 7.2 (H) 4.3 - 5.6 [facility] Comment: Reference Range: 4.3 - [...] Mellitus, Diabetes Care 2013; 36: Suppl. 1, S67-74 Est Avg Gluc 160 mg/dL [facility] Comment: eAG equivalents for HbA1c percentages: HbA1c(%) ?eAG(mg/dL) 6.0 ?126 6.5 ?140 7.0 ?154 7.5 ?169 8.0 ?183 8.5 ?197 9.0 ?212 9.5 ?226 10.0 ? 240 Limitations: The eAG calculation has not been validated on women, individuals below 18 years old and above 70 years old, and individuals with hemoglobinopathies. Additional resources are available on e ADA website. David PENALOZA, Alisson J, Vladimir R, et al. ??Tr anslating the A1C assay into estimated average glucose values. ??Diabetes Care 2008:31(8):8816-4279. Specimen Anatomical Collection Method Collection Time Receive d Time (Source) Location / / Volume Laterality Blood specimen 01/27/2019 4:08 AM 019 4:50 (specimen) EDT AM EDT Resulting Agency Comment Spec In Lab Galindo Bell MD CHEMISTRY ORDERABLES Performing Organization Address City/[facility]/ZIP [place] [address] APTT (01/27/2019 4:08 AM EDT) P athologist Signature PTT 32 25 - 37 sec [facility] Comment: The PTT is NOT [...] Bell MD HEMATOLOGY ORDERABLES Performing Organization Address City/[facility] [place] [address] Heparin (unfractionated) Level (01/27/2019 4:08 AM EDT) P athologist Signature Heparin UFH 0.09 IU/mL [facility] LABORATORY Comment: Guidelines for therapeutic unfractionate [...] Organization Address City/State/ZIP [place] [address] Troponin (01/27/2019 4:08 AM EDT) athologist Signature Troponin-T <0.01 0.00 - 0.00 [facility] ng/mL [facility] Comment: The 99th percentile for Troponin T is le ss than 0.01 ng/mL, any detectable cTnT concentration using this assay should be considered elevated. According to the third universal definit ion of myocardial infarction the following criteria with a clinical prese ntation consistent with acute myocardial ischemia meets the diagnosis for a myocardial infarction ([place]). Detection of a rise and/or fall of [...] additional sample may be indicated. Reference: Third [place]ora Definition of Myocardial Infarction. Journal of the [place] [employer] 2012;60:1581-98 Specimen Anatomical Collection Method Collection Time Receive d Time (Source) Location / / Volume Laterality Blood specimen 01/27/2019 4:08 AM 019 4:50 (specimen) EDT AM EDT Resulting Agency Comment Spec In Lab Galindo Bell MD CHEMISTRY ORDERABLES Performing Organization Address City/State/ZIP [place] [address] POCT Glucose (01/26/2019 10:36 PM EDT) athologist Signature POC Glucose 173 65 - 199 [facility] mg/dL [facility] Comment: Supplemental ranges: <140 mg/dL before meals <180 mg/dL all other times of the day Specimen Anatomical Collection Method Collection Time Receive d Time (Source) Location / / Volume Laterality Blood specimen 01/26/2019 10:36 9 (specimen) PM EDT 10:36 PM EDT Wilton Roper MD POINT OF CARE TEST ORDERABLE S Performing Organization Address City/[facility]/ZIP Code Phon e Number [address] EKG 12 Lead (01/26/2019 10:23 PM EDT) Component Value Ref Range Test Analysis Performed Pathologis t Method Time At Signature Ventricular rate 69 BPM MUSE SYSTEM Atrial Rate 69 BPM MUSE SYSTEM P-R Interval 206 ms MUSE SYSTEM QRS Duration 120 ms MUSE SYSTEM Q-T Interval 416 ms MUSE SYSTEM QTC Calculated 445 ms MUSE SYSTEM (Bezet) Calculated P [place] 48 degrees MUSE SYSTEM Calculated R [place] -59 degrees MUSE SYSTEM Calculated T [place] 131 degrees MUSE SYSTEM INTERPRETATION Normal sinus [...] Heparin (unfractionated) Level (01/26/2019 10:21 PM EDT) athologist Signature Heparin UFH 0.05 IU/mL [facility] LABORATORY Comment: Guidelines for therapeutic unfractionate [...] Laterality Blood specimen Venous Draw / 01/26/2019 10:21 01/27/20 19 (specimen) Unknown PM EDT 10:28 PM EDT Resulting Agency Comment Spec In Lab Galindo Bell MD HEMATOLOGY ORDERABLES Performing Organization Address City/State/Z[place] [address] Scan, Peripheral Blood (01/26/2019 10:21 PM EDT) [facility] gist Method Time Signature Plat Estimate Normal [facility] RBC Morphology Abnormal [facility] Ovalocytes 1-5 /HPF [facility] Tear Drop Cells 1-5 /HPF [facility] Barre Cells 1-5 /HPF [facility] Specimen Anatomical Collection Method Collection Time Receive d Time (Source) Location / / Volume Laterality Blood specimen 01/26/2019 10:21 9 (specimen) PM EDT 10:28 PM EDT Resulting Agency Comment Spec In Lab Galindo Bell MD HEMATOLOGY ORDERABLES Performing Organization Address City/State/ZIP Code Phon e Number [place] [id number] (ABNORMAL) Differential, Automated (01/26/2019 10:21 PM EDT) [facility] gist Method Time Signature Neutrophils % 45.8 % [facility] Neutr Abs (ANC) 5.69 1.70 - [facility] 6.10 [facility] x10(3)/[facility] LABORATORY Lymphocytes % 44.3 % [facility] Lymphocytes Abs 5.5 (H) 0.9 - 3.2 [facility] x10(3)/[facility] LABORATORY Monocytes % 6.3 % [facility] Monocyte Abs 0.8 0.3 - 0.9 [facility] x10(3)/[facility] LABORATORY Eosinophils % 2.3 % [facility] Eosinophils Abs 0.3 0.0 - 0.4 [facility] x10(3)/[facility] LABORATORY Basophils % 0.7 % [facility] Basophils Abs 0.1 0.0 - 0.1 [facility] x10(3)/[facility] LABORATORY Immature Gran % 0.60 % [facility] Comment: Immature granulocytes(IG's)percentage an d absolute count will include metamyelocytes, myelocytes, and promyelo cytes. Blood smears from CBCs yielding IG's will be scanned manually for concor dance. If this scan disagrees with the automated IG or if promyelocytes are not ed, a manual differential will be performed. Corinne Gran Abs 0.08 (H) 0.00 - 0.04 x10(3)/[facility] LABORATORY Specimen Anatomical Collection Method Collection Time Receive d Time (Source) Location / / Volume Laterality Blood specimen 01/26/2019 10:21 9 (specimen) PM EDT 10:28 PM EDT Resulting Agency Comment Spec In Lab Galindo Bell MD HEMATOLOGY ORDERABLES Performing Organization Address City/State/Z[place] [address] (ABNORMAL) Hemogram (01/26/2019 10:21 PM EDT) Analysis Performed At Patho logist Time Signature WBC 12.4 (H) 4.0 - 9.5 [facility] x10(3)/[facility] LABORATORY RBC 4.68 4.58 - [facility] 5.54 [facility] x10(6)/[facility] LABORATORY Hemoglobin 14.1 13.7 - [facility]/dL [facility] Hematocrit 41.6 40.5 - [facility] 48.[facility] % [facility] MCV 88.9 82.9 - [facility]1 [facility]OR[facility]ORY MCH 30.1 27.5 - [facility] 32.1 pg [facility] MCHC 33.9 32.0 - [facility] 35.7 gm/dL [facility] Platelets 228 145 - 357 [facility] x10(3)/[facility] LABORATORY RDWSD 42.8 36.0 - [facility] 45.0 [facility] RDWCV 13.2 11.4 - [facility] 13.8 % [facility] MPV 10.7 7.6 - 12.9 [facility] LABORATORY nRBC % Auto 0.0 % [facility] nRBC Abs Auto 0.000 0.000 - [facility] 0.000 [facility] x10(3)/[facility] LABORATORY Specimen Anatomical Collection Method Collection Time Receive d Time (Source) Location / / Volume Laterality Blood specimen 01/26/2019 10:21 9 (specimen) PM EDT 10:28 PM EDT Resulting Agency Comment Spec In Lab Galindo Bell MD HEMATOLOGY ORDERABLES Performing Organization Address City/State/ZIP [place] [address] CK (01/26/2019 10:21 PM EDT) P athologist Signature CK, Total 133 0 - 200 [facility] unit/L [facility] Specimen Anatomical Collection Method Collection Time Receive d Time (Source) Location / / Volume Laterality Blood specimen 01/26/2019 10:21 9 (specimen) PM EDT 10:28 PM EDT Resulting Agency Comment Spec In Lab Galindo Bell MD CHEMISTRY ORDERABLES Performing Organization Address City/State/[place] [address] (ABNORMAL) Troponin (01/26/2019 10:21 PM EDT) P athologist Signature Troponin-T 0.01 (H) 0.00 - [facility] [place] 0.00 ng/mL [facility] Comment: The 99th percentile for Troponin T is le ss than 0.01 ng/mL, any detectable cTnT concentration using this assay should be considered elevated. According to the third universal definit ion of myocardial infarction the following criteria with a clinical prese ntation consistent with acute myocardial ischemia meets the diagnosis for a myocardial infarction ([place]). Detection of a rise and/or fall of [...] additional sample may be indicated. Reference: Third Nora Definition of Myocardial Infarction. Journal of the [place] [employer] 2012;60:1581-98 Specimen Anatomical Collection Method Collection Time Receive d Time (Source) Location / / Volume Laterality Blood specimen 01/26/2019 10:21 9 (specimen) PM EDT 10:28 PM EDT Resulting Agency Comment Spec In Lab Galindo Bell MD CHEMISTRY ORDERABLES Performing Organization Address City/State/Z[place] [address] (ABNORMAL) TSH (01/26/2019 10:21 PM EDT) P athologist Signature TSH 15.65 (H) 0.27 - [facility] [place] 4.20 [facility] mcIU/mL [facility] Specimen Anatomical Collection Method Collection Time Receive d Time (Source) Location / / Volume Laterality Blood specimen 01/26/2019 10: 9 (specimen) PM EDT 10:28 PM EDT Resulting Agency Comment Spec In Lab Galindo Bell MD CHEMISTRY ORDERABLES Performing Organization Address City/[facility]/ZIP Code Phon e Number [address] Magnesium (01/26/2019 10:21 PM EDT) P athologist Signature Magnesium 0.71 0.69 - 1.07 [facility] [place] mmol/L [facility] Specimen Anatomical Collection Method Collection Time Receive d Time (Source) Location / / Volume Laterality Blood specimen 01/26/2019 10: 9 (specimen) PM EDT 10:28 PM EDT Resulting Agency Comment Spec In Lab Galindo Bell MD CHEMISTRY ORDERABLES Performing Organization Address City/[facility] Code Phon e Number [address] Hepatic Function Panel (01/26/2019 10:21 PM EDT) P athologist Signature Total Protein 7.3 6.1 - 8.0 [facility] gm/dL [facility] Albumin 4.4 3.2 - 5.2 [facility] gm/dL [facility] AST 24 0 - 39 [facility] unit/L [facility] ALT 32 0 - 55 [facility] unit/L [facility] Alk Phos 47 40 - 120 [facility] unit/L [facility] Total 0.5 0.2 - 1.3 [facility] Bilirubin mg/dL [facility] Bili, Direct 0.1 0.0 - 0.3 [facility] mg/dL [facility] Specimen Anatomical Collection Method Collection Time Receive d Time (Source) Location / / Volume Laterality Blood specimen 01/26/2019 10: 9 (specimen) PM EDT 10:28 PM EDT Resulting Agency Comment Spec In Lab Galindo Bell MD CHEMISTRY ORDERABLES Performing Organization Address City/[facility]/[place] [address] APTT (01/26/2019 10:21 PM EDT) athologist Signature PTT 28 25 - 37 sec [facility] Comment: The PTT is NOT [...] Bell MD HEMATOLOGY ORDERABLES Performing Organization Address [facility] [place] [address] (ABNORMAL) Prothrombin Time (01/26/2019 10:21 PM EDT) athologist Signature PT 12.7 (H) 9.4 - 12.5 [facility] LABORATORY INR 1.1 [facility] Comment: An INR <2.0 indicates [...] Bell MD HEMATOLOGY ORDERABLES Performing Organization Address [facility] [place] [address] (ABNORMAL) pro-Brain Natriuretic Peptide (01/26/2019 10:21 PM EDT) athologist Signature ProBNP 394 (H) <=125 pg/mL [facility] Specimen Anatomical Collection Method Collection Time Receive d Time (Source) Location / / Volume Laterality Blood specimen 01/26/2019 10:21 9 (specimen) PM EDT 10:28 PM EDT Resulting Agency Comment Spec In Lab Galindo Bell MD CHEMISTRY ORDERABLES Performing Organization Address City/State/ZIP [place] [address] (ABNORMAL) BMP w/fasting Glucose (01/26/2019 10:21 PM EDT) athologist Signature Glucose 171 (H) 65 - 99 [facility] Fasting mg/dL [facility] Comment: ?Fasting* Glucose Interpretive C riteria [...] of Diabetes Mellitus, Position Statement from the [place] [employer]. ??Diabete s Care, Volume 33, Supplement 1, Aug 2009 BUN 22 (H) 10 - 20 mg/dL [facility] Creatinine 0.94 0.80 - 1.50 mg/dL [facility] Sodium 136 135 - 145 mmol/L [facility] Potassium 4.5 3.5 - 5.0 mmol/L [facility] Comment: Please note: ??Patients with WBC >100,00 0 may have falsely elevated Potassium levels. ??For accurate Potassium quantif ication in these patients send serum separator tube (gold top) for subsequent determinations. ??Contact the Clinical Chemistry Laboratory if there are any qu estions. Chloride 101 98 - 107 mmol/L [facility] CO2 22 22 - 31 mmol/L [facility] Anion Gap 13 5 - 15 mmol/L [facility] Calcium 9.4 8.5 - 10.5 mg/dL [facility] Estimated GFR 84 >=60 mL/min/1.73 m?? [facility] Comment: The eGFR was calculated using the CKD-EP I equation. As with all creatinine based estimates of kidney function, eGFR values calculated with the CKD-EPI equation are not accurate in patients wi th acute kidney failure, extremes of body mass or the acutely ill. [email or web address] eGFR 98 >=60 mL/min/1.73 m?? [facility] Comment: The eGFR was calculated using the CKD-EP I equation. As with all creatinine based estimates of kidney function, eGFR values calculated with the CKD-EPI equation are not accurate in patients wi th acute kidney failure, extremes of body mass or the acutely ill. [email or web address] Specimen Anatomical Collection Method Collection Time Receive d Time (Source) Location / / Volume Laterality Blood specimen 01/26/2019 10:21 9 (specimen) PM EDT 10:28 PM EDT Resulting Agency Comment Spec In Lab Galindo Bell MD CHEMISTRY ORDERABLES Performing Organization Address City/State/Z[place] [address] documented in this encounter Visit Diagnoses Not on filedocumented in this encounter Administered Medications Inactive Administered Medications - up to 3 most recent administrations Medication Order MAR Action Action Date Dose Rate Site acetaminophen (TYLENOL) tablet Given 02/06/2019 11:59 AM EDT 1,0 00 mg 1,000 mg 1,000 mg, Oral, EVERY 6 HOURS SCHEDULED, First dose on Rosalia 02/01/19 at 2200, Until Discontinued, Maximum dose of acetaminophen is 4000 mg from all sources in 24 hours., Routine Given 02/06/2019 6:22 AM EDT 1,000 mg Given 02/06/2019 12:35 AM EDT 1,000 mg AMIOdarone (CORDARONE; PACERONE) tablet 200 Given 02/06/2019 8:54 AM EDT 200 mg mg 200 mg, Oral, DAILY, First dose on Tue02/04/19 at 1000, Until Discontinued, Routine Given 02/05/2019 8:10 AM EDT 200 mg Given 02/04/2019 10:00 AM EDT 200 mg aspirin chewable tablet 81 mg Given 02/06/2019 8:54 AM EDT 81 mg 81 mg, Oral, DAILY, First dose on Tue01/31/19 at 2030, Until Discontinued, Start on post-op day 1 in the AM., Routine Given 02/05/2019 8:11 AM EDT 81 mg Given 02/04/2019 8:30 AM EDT 81 mg atorvastatin (LIPITOR) tablet 80 mg Given 02/05/2019 4:25 PM EDT 80 mg 80 mg, Oral, EVERY EVENING, First dose on Tue01/26/19 at 2315, Until Discontinued, Routine Given 02/04/2019 5:48 PM EDT 80 mg Given 02/03/2019 5:26 PM EDT 80 mg calcium chloride 100 mg/mL (10 %) Given 01/31/2019 6:25 PM EDT 1 g Central Line injection ONCE PRN, Starting on Tue01/31/19 at 1448, Until Tue01/31/19 at 1955, Intra-Operative (Intra-Procedure), Routine cardioplegic solution (PLEGISOL) induction New Bag 01/31 5:15 PM EDT 299 mLs solution CONTINUOUS PRN, Starting on Tue01/31/19 at 1448, Until Tue01/31/19 at 1715, Intra-Operative (Intra-Procedure) cardioplegic solution (PLEGISOL) Restarted 01/31/2019 6:03 PM EDT 92 mLs maintenance solution CONTINUOUS PRN, Starting on Tue01/31/19 at 1449, Until Tue01/31/19 at 1730, Intra-Operative (Intra-Procedure) Restarted 01/31/2019 5:56 PM EDT 100 mLs Restarted 01/31/2019 5:37 PM EDT 101 mLs cardioplegic solution (PLEGISOL) New Bag 01/31/2019 6:26 PM EDT 12 3 mLs reperfusion solution CONTINUOUS PRN, Starting on Tue01/31/19 at 1449, Until Tue01/31/19 at 1826, Intra-Operative (Intra-Procedure) clopidogrel (PLAVIX) tablet 75 mg Given 02/06/2019 [...] the duration of the active insulin., Routine electrolyte (pH 7.4) Restarted 01/31/2019 6:33 PM 500 mLs Central Line (NORMOSOL-R; PLASMALYTE-A) EDT injection CONTINUOUS PRN, Starting on Tue01/31/19 at 1449, Until Tue01/31/19 at 1702, Intra-Operative (Intra-Procedure) Restarted 01/31/2019 5:28 PM EDT 300 mLs Centr al Line New Bag 01/31/2019 5:02 PM EDT 1,415 mLs Centr al Line furosemide (LASIX) tablet 20 mg Given 02/06/2019 8:54 AM EDT 20 mg 20 mg, Oral, DAILY, First dose on Tue02/06/19 at 0900, Until Discontinued, Routine gabapentin (NEURONTIN) capsule 300 mg Given 02/06/2019 [...] 37. 5 grams., Routine heparin (porcine) injection Given 01/31/2019 5:53 PM EDT 5,000 Units Centr al Line ONCE PRN, Starting on Tue01/31/19 at 1449, Until Tue01/31/19 at 1955, Intra-Operative (Intra-Procedure), Routine Given 01/31/2019 5:02 PM EDT 5,000 Units Centr al Line insulin glargine VIAL injection 50 Units Given 02/05/2019 9:10 PM EDT 50 Units 50 Units, Subcutaneous, NIGHTLY, First dose on Tue02/02/19 at 2100, Until Discontinued, Routine Given 02/04/2019 9:46 PM EDT 50 Units Given 02/03/2019 8:31 PM EDT 50 Units insulin lispro (HumaLOG) VIAL injection Given [...] Given 02/05/2019 5:38 PM EDT 14 Units lidocaine (PF) (XYLOCAINE) 100 Given 01/31/2019 6:21 PM EDT 200 mg Central Line mg/5 mL (2 %) injection ONCE PRN, Starting on Tue01/31/19 at 1449, Until Tue01/31/19 at 1955, Intra-Operative (Intra-Procedure), Routine magnesium hydroxide (Milk of Magnesia) (240 Given 02/04/2019 8:30 AM EDT 10 mLs mg/mL) oral liquid 10 mL 10 mL, Oral, DAILY, First dose on Tue02/02/19 at 0900, Until Discontinued, Post-op day 2. Do not use with renal insufficiency., Routine Given 02/03/2019 9:30 AM EDT 10 mLs Given 02/02/2019 8:22 AM EDT 10 mLs magnesium sulfate 4 mEq/mL (50 %) Given 01/31/2019 6:20 PM EDT 2 g Central Line injection ONCE PRN, Starting on Tue01/31/19 at 1450, Until Tue01/31/19 at 1955, Intra-Operative (Intra-Procedure), Routine mannitol (50 grams and over) 100 New Bag 01/31/2019 6:09 PM EDT 40 g Central Line g/500 mL (20%) infusion CONTINUOUS PRN, Starting on Tue01/31/19 at 1450, Until Tue01/31/19 at 1809, Intra-Operative (Intra-Procedure) metoprolol (LOPRESSOR) tablet 12.5 mg Given 02/06/2019 8:54 AM EDT 12.5 mg 12.5 mg, Oral, EVERY 12 HOURS SCHEDULED (2 times per day), First dose (after last modification) on Tue02/01/19 at 2100, Until Discontinued, Please hold for hr <50, sbp <90, Routine Given 02/05/2019 9:07 PM EDT 12.5 mg Given 02/05/2019 8:11 AM EDT 12.5 mg miconazole (MICOTIN) 2 % powder Given 02/06/2019 9:00 AM EDT Topical (Top), 2 TIMES DAILY, First dose on Tue02/01/19 at 2100, Until Discontinued Given 02/05/2019 9:00 AM EDT Given 02/04/2019 9:48 PM EDT oxyCODONE (ROXICODONE) immediate release tablet Given 02/05/2019 9:07 PM EDT 5 mg 5-15 mg 5-15 mg, Oral, EVERY 4 HOURS PRN, Starting on Tue02/01/19 at 0836, Until Tue02/06/19 at 1630, Pain, [...] Given 02/04/2019 8:30 AM EDT 40 mg senna-docusate (PERICOLACE) 8.6-50 mg per Given 2018 8:31 PM EDT 2 tablets tablet 2 tablet 2 tablet, Oral, DAILY, First dose on Ros[place] 02/01/19 at 2100, Until Discontinued, Post-op day 1, Routine Given 02/02/2019 9:30 PM EDT 2 tablets Given 02/01/2019 9:01 PM EDT 2 tablets sodium chloride 0.9 % (flush) flush 5 mL Given 02/06/2019 7:30 AM EDT 5 mLs 5 mL, Intravenous, EVERY 8 HOURS, First dose on [place] 02/01/19 at 1530, Until Discontinued, Routine Given 02/05/2019 9:00 PM EDT 5 mLs Given 02/05/2019 3:30 PM EDT 5 mLs spironolactone (ALDACTONE) tablet 50 mg Given 02/06/2019 8:53 AM EDT 50 mg 50 mg, Oral, DAILY, First dose on 02/03/19 at 1130, Until Discontinued, Routine Given 02/05/2019 8:10 AM EDT 50 mg Given 02/04/2019 8:30 AM EDT 50 mg vancomycin (VANCOCIN) injection Given 01/31/2019 7:09 PM EDT 4 g 19- S urgical Site ONCE PRN, Starting on Tue01/31/19 at 1909, Until Tue01/31/19 at 1955, Intra-Operative (Intra-Procedure), Routine verapamil (ISOPTIN) injection Given 01/31/2019 4:10 PM EDT 5 mg 20-Ot her (document in ONCE PRN, Starting on Tue comment section) 01/31/19 at 1610, Until Tue01/31/19 at 1955, Administer over 2 Minutes, Intra-Operative (Intra-Procedure) documented in this encounter Active and Recently Administered Medications Times are shown in EDT. Scheduled Medication Order 02/04/2019 02/05/2019 02/06/2019 acetaminophen (TYLENOL) tablet 1,000 mg 0058 (Given - Provider: Giles Hawthorne RN)0549 (Given - Provider: Giles Hawthorne RN)1147 (Given - Provider: Alejandro Connell RN)1748 (Given - Provider: Alejandro Connell, RN) 0010 (Given - Provider: Gladis Ogden [...] Oral, EVERY EVENING, First dose o n 01/26/19 at 2315, Until Discontinued, Routine clopidogrel (PLAVIX) [...] Connell, RN) 0810 (Given - Provider: Jacqueline Zelaya RN) 20 mg, Intravenous, 2 TIMES DAILY, First dose on Tue02/01/19 at 0900, Until Discontinued furosemide (LASIX) tablet 20 mg 0854 (Given - Provider: Jacqueline Zelaya RN) 20 mg, Oral, DAILY, First dose on 09/26 at 0900, Until Discontinued, Routine gabapentin (NEURONTIN) capsule 300 mg 0830 (Given - Pr ovider: Myra Cintron RN)1530 (Given - Provider: Alejandro Connell, JACEY)2144 (Given - Provider: Gladis Ogden RN) 0811 (Given - Provider: Jacqueline Zelaya RN)1435 (Given - Provider: Jacqueline Zelaya RN)2107 (Given - Provider: Gladis Ogden, JACEY) 0854 (Given - Provider: Jacqueline Zelaya RN) 300 mg, Oral, 3 TIMES DAILY, First dose on Tue02/01/19 at 1500, Until Discontinued, Routine insulin glargine VIAL injection 50 Units 2145 (Given - Provider: Gladis Ogden RN) 211 (Given - Provider: Gladis Ogden, JACEY) 50 Units, Subcutaneous, NIGHTLY, First d ose on Tue02/02/19 at 2100, Until Discontinued, Routine insulin lispro (HumaLOG) VIAL injection 0-12 Units (CA NCELED) 0836 (Given - Provider: Myra Cintron, JACEY)1226 (Given - Provider: Alejandro Connell, RN)1741 (Given - Provider: Alejandro Connell, RN) 0813 (Given - Provider: Jacqueline Zelaya RN) 0-12 Units, Subcutaneous, 3 TIMES DAILY WITH [...] Jacqueline Zelaya RN)2007 (Given - Provider: Gladis Ogden RN) 0000 (Not Given - Provider: Gladis Ogden [...] Ogden RN)2200 (Rate/Dose Verify - Provider: Gladis Ogden, JACEY)2215 (Rate/Dose Change - Provider: Gladis Ogden RN)2315 [...] 10 mL 0830 (Given - Provider: Myra Cintron RN) 0900 (Not Given - Provider: Jacqueline [...] Myra Cintron, RN)2143 (Given - Provider: Gladis Ogden, RN) 0811 (Given - Provider: Jacqueline Zelaya RN)210 (Given - Provider: Gladis Ogden, RN) 0854 (Given - Provider: Jacqueline Zelaya, JACEY) 12.5 mg, Oral, EVERY 12 HOURS SCHEDULED (2 times per day), First dose on Tue02/01/19 at 2100, Until Discontinued, Please hold for hr <50, sbp <90, Routine miconazole (MICOTIN) 2 % powder 0838 (Given - Provider : Myra Cintron, RN)2147 (Given - Provider: Gladis Ogden, JACEY) 0900 (Given - Provider: Jacqueline Zelaya RN)2099 (Not [...] RN) 0853 (See Alternative - Provider: Rashad Zelaya RN) 40 mg, Intravenous, DAILY, First dose on Tue01/31/19 at 2030, Until Discontinued, Reconstitute with 10 mL of normal saline to a concentration of 4 mg/mL and infuse slowly over 2 minutes. , Routine pantoprazole (PROTONIX) tablet 40 mg(Linked Group 2) 0 830 (Given - Provider: Myra Cintron, RN) 0811 (Given - Provider: Jacqueline Zelaya, JACEY) 0853 [...] 5 mL 0058 (Given - Provider: Giles Hawthorne RN)0830 (Given - Provider: Myra Cintron RN)1530 (Given - Provider: Alejandro Connell, RN)2000 (Given - Provider: Gladis Ogden, RN) 0730 (Given - Provider: Jacqueline Zelaya RN)1530 (Given - Provider: Jacqueline Zelaya, RN)2100 (Given - Provider: Gladis Ogden, JACEY) 0730 (Given - Provider: Jacqueline Zelaya RN) 5 mL, Intravenous, EVERY 8 HOURS, First dose on Ros[place] 02/01/19 at 1530, Until Discontinued, Routine spironolactone (ALDACTONE) tablet 50 mg 0830 (Given - Provider: Myra Cintron RN) 0810 (Given - Provider: Jacqueline Zelaya RN) 0853 (Gi bayron - Provider: Jacqueline Zelaya RN) 50 mg, Oral, DAILY, First dose on Sat at 1130, Until Discontinued, Routine Continuous Medication Order 02/04/2019 02/05/2019 02/06/2019 AMIOdarone (CORDARONE) 360 mg in dextrose 5% 200 mL in fusion () 0233 (Stopped - Provider: Giles Hawthorne RN)0245 (Restarted - Provider: Giles Hawthorne RN)1100 (Stopped - Provider: Alejandro Connell, JACEY) 1 mg/min (33.3333 mL/hr, rounded to 33.3 [...] g), Intravenous, EVERY 1 HOUR PRN, Starting 02/05/19 at 1124, Until Tue02/06/19 at 1630, Low [...] PRN, S tarting 02/05/19 at 1124, Until Tue02/06/19 at 1630, Low [...] RN)1010 (Bolus from Bag - Provider: Jocelyn Rutledge RN)1309 (Bolus from Bag - Provider: Alejandro Connell, RN) 0925 (Bolus from Bag - Provider: Genie Zelaya, RN)1015 (Bolus from Bag - Provider: Jacqueline Zelaya RN)1039 (Bolus from Bag - Provider: Jacqueline Zelaya RN) 0-16 Units, Intravenous, PER INSULIN PRO [...] Intravenous, EVERY 8 HOURS PRN, St arting 01/31/19 at 2013, Until Tue02/06/19 at 1630, Nausea oxyCODONE (ROXICODONE) immediate release tablet 5-15 m g 1627 (Given - Provider: Alejandro Connell, JACEY)2215 (Given - Provider: Gladis Ogden, JACEY) 2107 (Given - Provider: Gladis Ogden, JACEY) 5-15 mg, Oral, EVERY 4 HOURS PRN, [facility] 0836, Until Tue02/06/19 at 1630, [...]
Routine documented in this encounter Care Teams Ecologist Technician Relationship Specialty Start Date End Date Taye Ron MD PCP - General Family Medicine 11/04/16 [place] [address] documented as of this encounter
--- OUTSIDE RECORDS SUMMARY | 2022-04-26 10:02 | XMS_ITS | Encounter Summary ---
:1950 Author Organization [facility] [place] [address] Care Team Providers Name Role Phone Taye Ron MD Primary Care Provider Reason for Visit Auth/Cert Specialty Diagnoses / Procedures Referred By Contact Refer red To Contact Diagnoses NSTEMI (non-ST elevated myocardial infarction) NSTEMI Referral ID Status Reason Start Date Expiration Date Visits Requ ested Visits Authorized [id number] 1 1 Encounter Details Date Type Department Care Team Description 01/31/2019 Anesthesia Event Main Operating Room Tara Acosta MD [facility] [place] [address] [facility] Kolton Bales MD [facility] [place] [address] [place] [address] Anesthesia Record Procedure Summary Procedure Name Responsible Anesthesia Start Anesthesia Stop Time Anesthesiologist Time @CABG, TWO VENOUS Tara Garcia MD 01/31/19 1445 01/31/192002 GRAFTS & ARTERIAL GRAFT (WRVU 7.93) (N/A Chest) Events Date Time Event Comment 01/31/2019 1445 AN Verify 1445 Start 1445 An Start Data 1457 An Induction 1500 An Intubation 1502 EM PROBE ONLY 1517 Anesthesia Ready 1545 Sternotomy 1702 CV Bypass init 1712 An Clamp start 1822 Ship Superintendent 1845 CP Bypass Ended 191 Chest Closed 195 an stop data 2002 Recovery or ICU Handoff Patient care was transferred to the destination unit staff after review of the patient's medica l history, current anesthetic/surgi chinyere status and plan, according to the Provider Handoff Checklist. 2002 Stop 02/06/2019 0929 Name Total Midazolam 5 mg fentaNYL 1,000 mcg Propofol 70 mg Propofol INF 175.71 mg PHENYLephrine INF 290 mcg Vecuronium 30 mg Heparin 35,000 Units Tranexamic Acid 1,290 mg Tranexamic Acid INF 566.33 mg Insulin Regular Human 26 Units Insulin Regular INF 26.87 Units cefTRIAXone 2 g methylPREDNISolone 500 mg EPINEPHrine INF 192 mcg NORepinephrine INF 636 mcg Sodium Chloride 0.9% 600 mL Lactated Ringers 100 mL Agents Name O2 Air N2O Isoflurane (et) Blood No blood administrations on file. Lines, Drains, and Airways Type Details Placement Removal PIV 01/27/19; 1116; cephalic 01/27/19 1116 by 1650 by vein (lateral side of Dinesh Biggs, Yasir Herrmann arm), right; tqko-kid-kqbuft catheter system; 22 gauge, 1 in length, 3/4 in length; chaya biggs rn vas ; distraction, intradermal injection, tolerated well; 05/13/21 (LDA Cleanup utility RA#[id number]); 1650 (LDA Cleanup utility RA#[id number]) Urethral Catheter 01/31/19; 1500; Surgery 01/31/19 1500 by 02/02 1423 by longer than 2 hours, Need Johanna Law, Jacqueline Kauffman, for intraoperative urine RN output monitoring; Physician order; indwelling catheter with core temperature probe; hydrophilic coated, latex; 14; inserted at this facility (JACEY Law); 1; 5; 7; none; drainage bag to dependent drainage; 02/02/19; 1423 ETT Mask Ventilation: 01/31/19 1505 by 02/01/19 0235 by Difficult (3); ETT Type: Kolton Bales lt, Vanessa, Cuffed, Oral; ETT Size: 8 P, CARE TEAM ASSISTANT mm; Mac Blade: 4; Notes: Asleep, Pre-O2, Stylette; Attempts: 1; Laryngoscopy Grade: 1; ETT Placement Verified By: Auscultation, Capnometry, Visual; Secured at Teeth: 23 cm; Inserted by: Nii Arterial Line 01/31/19; 1525; radial 01/31/19 1525 by 02/01/19 1600 by artery, right; 20 gauge; Kolton Bales Vida M, RN [place]; Sterile Prep, MD Santosh Sterile Gloves; 02/01/19; 1600 CVC Single/Intro. 01/31/19; 1525; internal 01/31/19 1525 by 01/07 03/26 1030 by jugular vein, right; Kolton Bales David B, RN Ultrasound Guidance; Yes; MD Santosh 9 Fr; Nii; EM, Transducer; CVC Protocol Performed; no longer indicated, removed per policy/procedure, catheter/device intact; 02/02/19; 1030 PA Catheter 01/31/19; 1525; jugular 01/31/19 1525 by 9 0535 by vein, right internal; VIP; Kolton Bales Jennifer D, CVC Protocol Performed; MD JACEY Frost; 02/01/19; 0535 Incision 01/31/19; 1538; sternal; 01/31/19 1538 by 1715 by vertical; 04/05/22 (Johanna Huffman RN Muller, Dierdre L cleanup utility RA#[id number]); 1715 (LDA cleanup utility RA#[id number]) Incision 01/31/19; 1538; knee; 01/31/19 1538 by 04/05/22 1715 by laparoscopic puncture; Johanna Law RN Muller, Dierdre L 04/05/22 (LDA cleanup utility RA#[id number]); 1715 (LDA cleanup utility RA#[id number]) Incision 01/31/19; 1638; thigh; 01/31/19 1638 by 04/05/22 1715 by laparoscopic puncture; Johanna Law RN Muller, Dierdre L 04/05/22 (LDA cleanup utility RA#[id number]); 1715 (LDA cleanup utility RA#[id number]) Chest Tube 01/31/19; 1644; Left; 01/31/19 1644 by 02/01/19 1510 by lateral; other (see Johanna Law RN Dinsdale, Lorrie Lacey, RN comments) (Pleural ); 28fr. PVC; 02/01/19; 1510 Drain/Device Site 01/31/19; 1653; Right; 01/31/19 1653 by 0511 by medial; knee; collapsible Johanna Law RN Leck ie, Paradise Munoz, closed device (9mm KYLE ); DO Khanna; Sterile prep and drape; 02/01/19; 0511 Chest Tube 01/31/19; 1837; Left; 01/31/19 1837 by 02/01/19 0930 by posterior; mediastinum; Johanna Law RN Dinsda le, Lorrie Lacey RN 28Fr. PVC; 02/01/19; 0930 Chest Tube 01/31/19; 1837; Right; 01/31/19 1837 by 02/01/19 0930 by anterior; mediastinum; Johanna Law RN Dinsdal e, Vida M, RN 28Fr. PVC; 02/01/19; 0930 Rash 01/31/19; 1999; penis; 01/31/191999 by 04/05/22 1715 by wheal; 04/05/22 (Paradise Stevenson, Nicki Chakraborty cleanup utility RA#[id number]); RN 1715 ([facility] cleanup utility RA#[id number]) documented in this encounter Social History Tobacco Use Types Packs/Day Years Used Date Former Smoker Cigarettes Quit: 01/11/19 99 Smokeless Tobacco: Never Used Alcohol Use Standard Drinks/Week Comments Not Currently 0 (1 standard drink = 0.6 oz pure alcoho l) Sex Assigned at Date Recorded Not on file documented as of this encounter OR Notes Anesthesia Postprocedure Evaluation - Tara Garcia MD - 01/31/2019 8:37 PM EDT Department of Anesthesiology Post-procedure Note Patient: Carlos Gan Procedure Summary Date: 01/31/19 Room / Location: [facility] OR [address] [place] [address] MAIN OR Anesthesia Start: 1444 Anesthesia Stop: 2002 Procedures: @CABG, TWO VENOUS GRAFTS & ARTERIAL GRAFT (WRVU 7.93) (N/A Chest) ENDOSCOPIC HARVEST VEIN(S) FOR CABG (WRVU 0.31) (Right Leg) @CABG, USING ARTERIAL GRAFT;SINGLE ARTERIAL GRAFT (WRVU 33.75) (N/A Chest) Diagnosis: (CAD, Cardiomyopathy) Surgeon: Trip Lin MD Responsible Provider: Tara Garcia MD Anesthesia Type: general ASA Status: 3 All Anesthesia Providers: Anesthesiologist: Jose Luke MD; Tara Garcia MD Building Insulation Supervisor: Kolton Bales MD Vitals Value Taken Time BP Temp Pulse 90 01/31/2019 8:36 PM Resp 12 01/31/2019 8:36 PM SpO2 100 % 01/31/2019 8:36 PM Pain Level Vitals shown include unvalidated device data. Patient Location: [facility] Level of Consciousness: Awake and Alert Pain Management: Satisfactory Analgesia PONV: None Cardiovascular Status: Hemodynamically Stable and Hypotension (received treatment) Respiratory Status: Stable Respiratory Status and Intubated/Ventilated Postoperative Fluid Status: Intravascular EUvolemia Possible Anesthetic Complications: NONE apparent at time of evaluation Final Primary Anesthesia Type: General (The anesthetic type performed was the same as planned.) Comments: SBP 90s-100s on Epi 2mcg/min, levo 8mcg/min Tara Garcia MD Anesthesia Preprocedure Evaluation - Kolton Bales MD - 01/30/2019 6:06 PM EDT Images from the original note were not included. Pre-Anesthesia Evaluation for: Carlos Gan a 68 y.o. male. Procedure(s): @CABG; 3 VENOUS GRAFTS & ARTERIAL GRAFT (WRVU 10.49) ENDOSCOPIC HARVEST VEIN(S) FOR CABG (WRVU 0.31) @CABG, USING ARTERIAL GRAFT;SINGLE ARTERIAL GRAFT (WRVU 33.75) Patient Active Problem List Diagnosis ??? Atherosclerosis of coronary artery Overview: Had Catheterization in 2005 at [facility] -- showed two vessel disease that was not intervened upon (LAD and Circ). [facility] 06/15 showed MVD, not candidate for CABG ??? Exertional angina ??? Ischemic cardiomyopathy ??? Hypertension ??? Dyslipidemia ??? Mitral regurgitation ??? HLD (hyperlipidemia) ??? Acute systolic heart failure ??? NSTEMI (non-ST elevated myocardial infarction) ??? Type 2 diabetes mellitus with complication Dxd 1984 ??? Psoriasis Past Medical History: Diagnosis Date ??? CAD (coronary artery disease) ??? Diabetes mellitus ??? Hypertension Past Surgical History: Procedure Laterality Date ??? CREATED BY INTERFACE Entered not Verified Procedure Date: 10/06/2010 ??? CREATED BY INTERFACE No History of Operative Procedures Procedure Date: 10/06/2010 Social History Tobacco Use ??? Smoking status: Former Smoker Types: Cigarettes Last attempt to quit: 01/11/1999 Years since quittin.0 ??? Smokeless tobacco: Never Used Substance Use Topics ??? Alcohol use: Not Currently Social History Substance and Sexual Activity Drug Use Never Allergies Allergen Reactions ??? Methotrexate Other (See Comments) Increased bleeding, lethargic ??? Shellfish Containing Products Anaphylaxis and Other (See Comments) Numbness, tingling of the tongue. Never had any problem with contrast and never used steroids before cath ??? Cis Free Text Allergy Hymenoptera (Bee) Stings. ??? Shellfish Derived Medications: MAR and/or home medications have been reviewed. Physical Exam: Most Recent Vitals: 01/30/19 1622 BP: 100/59 Pulse: 73 Resp: 18 Temp: 36.6 ??C (97.9 ??F) SpO2: 96% Body mass index is 46.26 kg/m??. Height: 167.6 cm (5' 6) Weight: 130 kg (286 lb 9.6 oz) Airway Assessment: Mallampati: III TM distance: >3 FB Neck ROM: full Cardiovascular Assessment: Pulmonary Assessment: breath sounds clear to auscultation Dental Assessment: Misc Assessment: IV access: Peripheral line Anesthesia Plan: ASA 3 general, with a(n) intravenous induction This is a 68 y.o. male here for CABGx3 in setting of CAD w/ NSTEMI. PMHx additionally significant for HTN, DM. EM 01/27/19 EF 45% WMA as below No sig valve disease Base-Anteroseptal Normal Base-Anterior Normal Base-Anterolateral Normal Base-Posterolateral Normal Base-Inferior Akinetic Base-Inferoseptal Hypokinetic Mid-Anteroseptal Hypokinetic Mid-Anterior Normal Mid-Anterolateral Normal Mid-Posterolateral Hypokinetic Mid-Inferior Hypokinetic Mid-Inferoseptal Hypokinetic [place]-Septal Akinetic [place]-Anterior Hypokinetic [place]-Lateral Hypokinetic [place]-Inferior Hypokinetic [place]-Tip Akinetic Cath 01/27/19 Right dominant Left Anterior Descending -Severe diffuse (>=75% stenosis) disease of the entire vessel segment -The proximal segment of the LAD had a long segmental 80% stenosis. - 85% long segmental stenosis of the mid segment - 85% single discrete stenosis of the distal segment Left Circumflex -Moderate diffuse (<=50% stenosis) disease of the entire vessel segment of the left circumflex artery (LCX). -Proximal segment of the LCX had a single discrete 50% stenosis. -90% single discrete stenosis of the mid segment of the LCX. -Moderate diffuse (<=50% stenosis) disease of the entire vessel segment of OM2 -Proximal segment of the OM2 had a single discrete 90% stenosis. -90% single discrete stenosis of the mid segment of the OM2. Right Coronary Artery -Moderate diffuse (<=50% stenosis) disease of the entire vessel segment -Mid segment of the RCA had a long segmental 80% stenosis. -Single discrete total occlusion of the distal segment of the RCA. Distal flow via collaterals from the LAD and collaterals from LCX Medications allergies reviewed and listed below. Allergies: -- Methotrexate -- Other (See Comments) -- Increased bleeding, lethargic -- Shellfish Containing Products -- Anaphylaxis and Other (See Comments) -- Numbness, tingling of the tongue. Never had any problem with contrast and never used steroids before cath -- Cis Free Text Allergy -- Hymenoptera (Bee) Stings. -- Shellfish Derived Anesthetic History: No prior anesthetic documentation. Anesthetic Plan: Arterial line Central line, PAC GA with ETT Standard ASA monitoring EM CVCC postoperatively Kolton Bales MD 01/30/2019 Region - Intrathoracic Cardiac Informed Consent: Anesthetic plan and risks discussed with patient. Use of blood products discussed with patient who consented to blood products. PAT Clinic Note documented in this encounter Plan of Treatment Upcoming Encounters Date Type Specialty Care Team Description 04/27/2022 Tech Visit Vascular Surgery Anais Singh 04/27/2022 Office Visit Vascular Surgery Sulema Fajardo MD [facility] VASCULAR SURGERY [place], [place] [address] (Wo rk) 05/18/2022 Office Visit Dermatology Alejandro Reese MD [address] [facility] DERMATOLOGY [place], [place] [address] (Wo rk) documented as of this encounter Visit Diagnoses Not on filedocumented in this encounter Administered Medications Inactive Administered Medications - up to 3 most recent administrations Medication Order MAR Action Action Date Dose Rate Site cefTRIAXone (ROCEPHIN) injection Given 01/31/2019 3:17 PM EDT 2 g PRN, Starting on Tue01/31/19 at 1517, Until Tue01/31/19 at 2035, Anesthesia Intra-op, Routine EPINEPHrine 2 mg in dextrose 5% New Bag 01/31/2019 6:27 PM EDT 2 mcg/min 15 mL/hr 250 mL infusion CONTINUOUS PRN, Starting on Tue01/31/19 at 1827, Until Tue01/31/19 at 2035, Anesthesia Intra-op fentaNYL 50 mcg/mL multi-dose injection Given 01/31/2019 3:45 PM EDT 250 mcg PRN, Starting on Tue01/31/19 at 1457, Until Tue01/31/19 at 2035, Anesthesia Intra-op, Routine Given 01/31/2019 3:31 PM EDT 250 mcg Given 01/31/2019 2:57 PM EDT 500 mcg heparin (porcine) injection Given 01/31/2019 4:26 PM EDT 35,000 Units PRN, Starting on Tue01/31/19 at 1626, Until Tue01/31/19 at 2035, Anesthesia Intra-op, Routine insulin regular human Rate/Dose Change 01/31/2019 7:35 PM 5 Units/hr 5 mL/hr (HumuLIN;NovoLIN) 1unit/mL in EDT sodium chloride 0.9% infusion CONTINUOUS PRN, Starting on Tue01/31/19 at 1746, Until Tue01/31/19 at 2035, Anesthesia Intra-op, Routine Rate/Dose Change 01/31/2019 7:06 PM EDT 10 Units/hr 10 mL/hr Rate/Dose Change 01/31/2019 6:14 PM EDT 15 Units/hr 15 mL/hr insulin regular human VIAL injection Given 01/31/2019 6:14 PM EDT 20 Units PRN, Starting on Tue01/31/19 at 1746, Until Tue01/31/19 at 2035, Anesthesia Intra-op, Routine Given 01/31/2019 5:46 PM EDT 6 Units lactated ringers infusion New Bag 01/31/2019 2:45 PM EDT CONTINUOUS PRN, Starting on Tue01/31/19 at 1445, Until Tue01/31/19 at 2035, Anesthesia Intra-op methylPREDNISolone sodium succinate (PF) Given 01/31/2019 3:34 P M EDT 500 mg (SOLU-Medrol) 1,000 mg/8 mL injection PRN, Starting on Tue01/31/19 at 1534, Until Tue01/31/19 at 2035, Anesthesia Intra-op, Routine midazolam (PF) (VERSED) multi-dose injec tion Given 01/31/2019 2:55 PM EDT 3 mg PRN, Starting on Tue01/31/19 at 1445, Until Tue01/31/19 at 2035, Anesthesia Intra-op, Routine Given 01/31/2019 2:45 PM EDT 2 mg NORepinephrine 16 mcg/mL Rate/Dose Change 01/31/2019 7:31 6 mcg/min 22.5 mL/hr (standard ADULT and Pedi PM EDT greater than 20 kg) infusion CONTINUOUS PRN, Starting on Tue01/31/19 at 1827, Until Tue01/31/19 at 2035, Anesthesia Intra-op, Routine Rate/Dose Change 01/31/2019 7:02 PM EDT 8 mcg/min 30 mL/hr Rate/Dose Change 01/31/2019 6:50 PM EDT 6 mcg/min 22.5 mL/hr PHENYLephrine (ABHAY-SYNEPHRINE) Restarted 01/31/2019 4:26 PM 10 m cg/min 7.5 mL/hr 20 mg in sodium chloride 250 mL EDT (standard ADULT & Pedi greater than 20kg) infusion CONTINUOUS PRN, Starting on Tue01/31/19 at 1557, Until Tue01/31/19 at 2035, Anesthesia Intra-op, Routine New Bag 01/31/2019 3:57 PM EDT 30 mcg/min 22.5 mL/hr New Bag 01/31/2019 3:50 PM EDT 30 mcg/min 22.5 mL/hr propofol (DIPRIVAN) 10 mg/mL bolus injection Given 9 4:17 PM EDT 20 mg (Anesthesia) PRN, Starting on Tue01/31/19 at 1456, Until Tue01/31/19 at 2035, Anesthesia Intra-op Given 01/31/2019 2:56 PM EDT 50 mg propofol (DIPRIVAN) infusion New Bag 01/31/2019 7:29 PM 40 mcg/kg/min 31 mL/hr CONTINUOUS PRN, Starting on Tue EDT 01/31/19 at 1929, Until Tue01/31/19 at 2035, Anesthesia Intra-op, Routine sodium chloride 0.9% infusion New Bag 01/31/2019 2:45 PM EDT CONTINUOUS PRN, Starting on Tue01/31/19 at 1445, Until Tue01/31/19 at 2035, Anesthesia Intra-op tranexamic acid (CYKLOKAPRON) 100 mg/mL Given 01/31/2019 3:17 PM EDT 1,290 mg bolus injection (Anesthesia) PRN, Starting on Tue01/31/19 at 1517, Until Tue01/31/19 at 203, Anesthesia Intra-op, Routine tranexamic acid (CYKLOKAPRON) New Bag 01/31/2019 3:17 PM 1 mg/kg/h r 1.3 mL/hr injection EDT CONTINUOUS PRN, Starting on Tue01/31/19 at 1517, Until Tue01/31/19 at 203, Anesthesia Intra-op, Routine vecuronium (NORCURON) injection Given 01/31/2019 6:16 PM EDT 10 mg PRN, Starting on Tue01/31/19 at 1457, Until Tue01/31/19 at 203, Anesthesia Intra-op, Routine Given 01/31/2019 4:21 PM EDT 10 mg Given 01/31/2019 2:57 PM EDT 10 mg documented in this encounter Care Teams Manufacturing Support Engineer Relationship Specialty Start Date End Date Taye Ron MD PCP - General Family Medicine 11/04/16 [address] [facility] [place] [address] documented as of this encounter
--- OUTSIDE RECORDS SUMMARY | 2022-04-26 10:03 | XMS_ITS | Encounter Summary ---
:1950 Author Organization [facility] Address [address] [place] [address] Care Team Providers Name Role Phone Nathan Page MD Primary Care Provider Reason for Visit Reason Comments Psoriasis Encounter Details Date Type Department Care Team Description 11/06/2015 Office Visit Dermatology at [facility] Alejandro Reese MD Psoriasis [address] [facility] [address] [place] [address] DERMATOLOGY [phone] [place], [place] [address] (Wo rk) Social History Tobacco Use Types Packs/Day Years Used Date Former Smoker Quit: 01/11/19 99 Smokeless Tobacco: Never Used Sex Assigned at Date Recorded Not on file documented as of this encounter Progress Notes Alejandro Reese MD - 11/06/2015 2:11 PM EDT Problem: 1. Followup psoriasis. 2. On Humira, March 2008 through December 2011, again since 2012. 3. Status post trial of Raptiva, October 2006 through February 2008. 4. Status post PUVA with good results, but unable to do with time constraints. Unable to tolerate methotrexate or cyclosporine, lack of any significant response to Enbrel. Dylan follows up and is doing well. 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 He is able to afford his co-pays now since [facility] is really keeping the Humira at an affordable level for him. Physical examination reveals a pleasant now 65-year-old gentleman who has essentially entirely cleared. He has only a 3-mm hyperkeratosis nodule on the left knee. Otherwise, he has no active psoriasis. Assessment and Plan: Psoriasis, controlled with Humira. a. Continue Humira 40 mg, using the autoinjector pen, injecting one subcutaneously every other week. b. The patient has prior authorizations good through September 01, 2016. c. Last prescription for Humira for a six-month supply given in January of 2015. Will be happy to renew when this again becomes necessary. He is being dispensed two for a one-month supply with five refills. That was faxed in to his [facility] on August 28, 2015. Return to clinic in one year. documented in this encounter Plan of Treatment Upcoming Encounters Date Type Specialty Care Team Description 04/27/2022 Tech Visit Vascular Surgery Samantha Anais M 04/27/2022 Office Visit Vascular Surgery Sulema Fajardo MD [facility] [address] VASCULAR SURGERY [place], [place] [address] (Wo rk) 05/18/2022 Office Visit Dermatology Alejandro Reese MD [address] [place] [address] DERMATOLOGY [place], [place] [address] (Wo rk) documented as of this encounter Visit Diagnoses Diagnosis Psoriasis Other psoriasis documented in this encounter Care Teams Senior Net Engineer Relationship Specialty Start Date End Date Nathan Page MD PCP - General General Internal Medicine 10/29/15 7 [facility] [address] [place] [address] documented as of this encounter
--- OUTSIDE RECORDS SUMMARY | 2022-04-26 10:03 | XMS_ITS | Encounter Summary ---
:1950 Author Organization [facility] Address [address] [place] [address] Care Team Providers Name Role Phone Nona Pererakrystal Norton APRN Primary Care Provider Reason for Visit Reason Comments Psoriasis Encounter Details Date Type Department Care Team Description 09/07/2012 Office Visit Dermatology Alejandro Reese, Psoriasis (Primary [address]) [address] [place], [place] DERMATOLOGY [id number] [place] [address] [phone] (Wo rk) Social History Tobacco Use Types Packs/Day Years Used Date Former Smoker Quit: 01/11/19 91 Sex Assigned at Date Recorded Not on file documented as of this encounter Progress Notes Alejandro Reese MD - 09/07/2012 4:20 PM EST Problem is: 1. Followup psoriasis. 2. Previously on Humira from March 2008 through mid 2011. 3. Status post trial of Raptiva October 2006 through February 2008. 4. Status post PUVA with good results but inconvenient with work, unable to tolerate methotrexate or cyclosporine, lack of any significant response to Enbrel. Dylan follows up after last being seen by me in July of 2011. Last year he was unable to afford the payments for his Humira and so was no longer receiving it. Within short order, his psoriasis flared up again. At work, coworkers have been complaining and he was told today that he needed to have something done about it. Thus, he presents today for treatment options. Physical examination reveals a pleasant 62-year-old who has widespread psoriasis, patchy involvement over his stomach, his back, arms, and legs, with moderate hyperkeratosis. This had all been clear on the Humira. Assessment and Plan: Psoriasis, flaring off of Humira. a. Recommend that we resume Humira, which he thinks now he can afford again the co-pays of. I discussed the copayment assistance plan with the patient to explain that there are ways that he should not have to stop it because of payment issues. b. Would start 40 mg using the autoinjector pen, giving one subcutaneously q.o.week. #6 for a 3 month supply will be faxed into [facility]. c. If there are issues, the patient will contact me and we will pursue patient assistance programs/copayment assistance programs. He need not have stopped the Humira because of payment issues. Copy: Jojo Perera A.P.R.N. documented in this encounter Plan of Treatment Upcoming Encounters Date Type Specialty Care Team Description 04/27/2022 Tech Visit Vascular Surgery Swetha Singhzasameer Lacey 04/27/2022 Office Visit Vascular Surgery Sulema Fajardo MD [facility] [address] VASCULAR SURGERY [place], [place] [address] (Go velez) 05/18/2022 Office Visit Dermatology Alejandro Reese MD [address] [facility] DERMATOLOGY [place], [place] [address] (Go velez) documented as of this encounter Visit Diagnoses Diagnosis Psoriasis - Primary Other psoriasis documented in this encounter Care Teams Swimming Teacher Relationship Specialty Start Date End Date Jojo Perera APRN PCP - General 06/30/10 10/28/15 DANIELLE [address] [place] [address] documented as of this encounter
--- OUTSIDE RECORDS SUMMARY | 2022-04-26 10:03 | XMS_ITS | Encounter Summary ---
:1950 Author Organization [facility] Address [address] [place] [address] Care Team Providers Name Role Phone Taye Ron MD Primary Care Provider Encounter Details Date Type Department Care Team Description 06/14/2017 Telephone Cardiology at [facility] Yony Bean MD [place] [address] CARDIOLOGY DEPT [phone] [place], [place] [address] (Wo rk) Social History Tobacco Use Types Packs/Day Years Used Date Former Smoker Quit: 01/11/19 99 Smokeless Tobacco: Never Used Sex Assigned at Date Recorded Not on file documented as of this encounter Miscellaneous Notes Telephone Encounter - Yony Bean - 06/14/2017 8:00 PM EST 06/14/2017 Carlos Gan Initial Contact Date: 06/14/2017 Initial contact time: 20:00 Patient Location: [facility] Reason for presentation at OSH: 67yo man, history of diabetes, smoking, and ?CAD. Shortness of breath and NESS occasionally on rest. Had episode of chest pain last night that awoke him from sleep. LVEF 16%, diffuse hypokinesis and akinesis. Troponin I 0.44. BNP 1300. Some shortness of breath. Chest pain free currently. 37, 20, 152/74, 93% Past cardiac studies: Catheterization in 2005 showed two vessel disease that was not intervened upon (LAD and Circ). OSH Interventions: Nitro drip for hypertension Plan: Discussed with outside provider - we are currently on urgent/emergent diversion. Given patient's finding of large area of scar, patient likely has long-standing history of CAD and CHF. Unclear at this time whether this is ACS versus CHF exacerbation. Agree that patient may need catheterization; asked OSH if they were comfortable with managing patient overnight with plan for transfer for echo and ?cath in the morning. Outside provider did not want to wait until the morning and decided to transfer patient to [facility]. Given that our cardiology service is already over-capped on both the house-staff and BONE WORKER services and that we are on urgent/emergent admissions only, I accepted this decision. - Above recommendations are based on information received over the phone; I have not personally interviewed or examined this patient. Yony Bean MD Vacuum Tank Tender [id number] documented in this encounter Plan of Treatment Upcoming Encounters Date Type Specialty Care Team Description 04/27/2022 Tech Visit Vascular Surgery Anais Singh 04/27/2022 Office Visit Vascular Surgery Sulema Fajardo MD [facility] DR VASCULAR SURGERY [place], [place] [address] (Wo rk) 05/18/2022 Office Visit Dermatology Alejandro Reese MD [address] [place] [address] DERMATOLOGY [place], [place] [address] (Wo rk) documented as of this encounter Visit Diagnoses Not on filedocumented in this encounter Care Teams Lucerne Farmer Relationship Specialty Start Date End Date Taye Ron MD PCP - General Family Medicine 11/04/16 [address] [place] [address] documented as of this encounter
--- OUTSIDE RECORDS SUMMARY | 2022-04-26 10:03 | XMS_ITS | Encounter Summary ---
:1950 Author Organization [facility] [address] Care Team Providers Name Role Phone Dilma Jojo Norton APRN Primary Care Provider Encounter Details Date Type Department Care Team Description 07/23/2015 Telephone Endocrinology at [facility] C [place] [address] Social History Tobacco Use Types Packs/Day Years Used Date Former Smoker Quit: 01/11/19 99 Smokeless Tobacco: Never Used Sex Assigned at Date Recorded Not on file documented as of this encounter Miscellaneous Notes Telephone Encounter - Aster Dial LPN - 07/24/2015 8:22 AM EST Called patient at which time message from Dr Armenta was read to him. Patient states that he has been taking Victoza 1.8 mg daily for about 1.5 weeks. Carlos Gan - 07/23/2015 4:05 PM >','<< Less Detail',event) href=javascript:;><< Less Detail George Armenta DO Sent: TueJuly 23, 2015 4:25 PM To: Aster Dial LPN Message Please ask him to increase victoza to 1.8mg. Thanks Telephone Encounter - Aster Dial LPN - 07/23/2015 4:05 PM EST Message on endo nurse line from patient Dr Armenta asked that I call will my BG readings after starting victoza FBG 167,130,150,132,160,203,178,157,146,119,155 Before bed 122,132,172,158,136,100,132,194 documented in this encounter Plan of Treatment Upcoming Encounters Date Type Specialty Care Team Description 04/27/2022 Tech Visit Vascular Surgery Anais Singh 04/27/2022 Office Visit Vascular Surgery Sulema Fajardo MD [facility] MEDICAL [facility] [address] VASCULAR SURGERY [place], [place] [address] (Wo rk) 05/18/2022 Office Visit Dermatology Alejandro Reese MD [address] [facility] DERMATOLOGY [place], [place] [address] (Wo rk) documented as of this encounter Visit Diagnoses Not on filedocumented in this encounter Care Teams Edge Drummer Relationship Specialty Start Date End Date Jojo Perera APRN PCP - General 06/30/10 10/28/15 DANIELLE [address] [place] [address] documented as of this encounter
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
--- OUTSIDE RECORDS SUMMARY | 2022-04-26 10:03 | XMS_ITS | Encounter Summary ---
:1950 Author Organization [facility] [place] [address] Care Team Providers Name Role Phone Unavailable Primary Care Provider Unavailable Encounter Details Date Type Department Care Team Description 06/24/2010 Office Visit Dermatology Alejandro Reese MD [address] DERMATOLOGY [place], [place] [address] [place] [address] [phone] (Go velez) Social History Tobacco Use Types Packs/Day Years Used Date Never Assessed Sex Assigned at Date Recorded Not on file documented as of this encounter Plan of Treatment Upcoming Encounters Date Type Specialty Care Team Description 04/27/2022 Tech Visit Vascular Surgery Anais Singh 04/27/2022 Office Visit Vascular Surgery Sulema Fajardo MD [facility] VASCULAR SURGERY [place], [place] [address] (Wo rk) 05/18/2022 Office Visit Dermatology Alejandro Reese MD [address] DERMATOLOGY [place], [place] [address] (Wo agustin) documented as of this encounter Visit Diagnoses Not on filedocumented in this encounter
--- OUTSIDE RECORDS SUMMARY | 2022-04-26 10:03 | XMS_ITS | Encounter Summary ---
:1950 Author Organization [facility] Address [address] [place] [address] Care Team Providers Name Role Phone Jojo Perera Errol BOYD Primary Care Provider Reason for Visit Reason Comments Psoriasis Encounter Details Date Type Department Care Team Description 08/06/2014 Office Visit Dermatology at [facility] Alejandro Reese MD Psoriasis [address] [facility] [address] [place] [address] DERMATOLOGY [phone] [place], [place] [address] (Wo rk) Social History Tobacco Use Types Packs/Day Years Used Date Former Smoker Quit: 01/11/19 91 Sex Assigned at Date Recorded Not on file documented as of this encounter Progress Notes Alejandro Reese MD - 08/06/2014 10:37 AM EST Problems: 1. Followup psoriasis. 2. Previously on Humira, March 2008 through 2011; and again in 2012. 3. Status post trial of Raptiva, October 2006 through February 2008. 4. Status post PUVA with good results, but unable to do with time constraints, unable to tolerate methotrexate or cyclosporin, lack of any significant response to Enbrel. Dylan follows up today with his granddaughter. He is retired since I last saw him. He is again without Humira, and his psoriasis is worse. It is, however, not as bad as when I used to see him some almost 20-odd years ago. The issue with the Humira has been his inability to afford the very high copays and deductibles, and so he had to stop it. Physical examination reveals a pleasant, 64-year-old gentleman with a long white russell and patch involvement of psoriasis over the arms, forearms, and a little bit over his stomach, back, and legs with only mild hyperkeratosis. This had all been totally clear previously on Humira. Assessment and Plan: Psoriasis, flaring off Humira. a. I recommended we resume Humira, which he now thinks he can afford through his [employer] coverage. b. He will start using the 40-mg autoinjector pen, injecting one subcutaneously every other week. We will give him #6 for a three-month supply with three refills. c. First we will obtain prior authorization. COPY: Selma Collier documented in this encounter Plan of Treatment Upcoming Encounters Date Type Specialty Care Team Description 04/27/2022 Tech Visit Vascular Surgery Anais Singh 04/27/2022 Office Visit Vascular Surgery Sulema Fajardo MD [facility] [address] VASCULAR SURGERY [place], [place] [address] (Wo rk) 05/18/2022 Office Visit Dermatology Alejandro Reese MD [address] [place] [address] DERMATOLOGY [place], [place] [address] (Wo rk) documented as of this encounter Visit Diagnoses Diagnosis Psoriasis Other psoriasis documented in this encounter Care Teams Welfare Interviewer Relationship Specialty Start Date End Date Jojo Perera APRN PCP - General 06/30/10 10/28/15 [facility] [address] [place] [address] documented as of this encounter
--- OUTSIDE RECORDS SUMMARY | 2022-04-26 10:03 | XMS_ITS | Encounter Summary ---
:1950 Author Organization [place] [address] Care Team Providers Name Role Phone Jojo Perera APRN Primary Care Provider Encounter Details Date Type Department Care Team Description 01/12/2012 Office Visit Endocrinology at [facility] Eloise Reed DM type 2 (diabetes [facility] MD Eliana mellitus, type 2) [facility] (Primary Dx) [place] [address] ENDOCRINOLOGY DEPT. [place], [place] [address] Social History Tobacco Use Types Packs/Day Years Used Date Former Smoker Quit: 01/11/19 91 Sex Assigned at Date Recorded Not on file documented as of this encounter Last Filed Vital Signs Vital Sign Reading Time Taken Comments Blood Pressure 129/65 01/12/2012 3:16 PM EDT Pulse 67 01/12/2012 3:16 PM EDT Temperature - - Respiratory Rate 18 01/12/2012 3:16 PM EDT Oxygen Saturation - - Inhaled Oxygen Concentration - - Weight 127 kg (280 lb) 01/12/2012 3:16 PM EDT Height 167.6 cm (5' 6) 01/12/2012 3:16 PM EDT Body Mass Index 45.19 01/12/2012 3:16 PM EDT documented in this encounter Progress Notes Eloise Herbert MD - 01/10/2012 9:26 PM EDT PRIMARY CARE PROVIDER: Jojo Perera APRN CC: Here for f/u of type 2 DM Dx: 1984 Last Hga1c 7.7%, 12/17; 7.3%, 08/19 Regimen: U-500 0.11 am, 0.10 pm; metformin 1000 bid, actos 30/d Complications: dentist-due ; eyes- 04/18, no DR; Cr- ; ma- ; neuropathy- feet on neurontin; CAD- yes-, no angina; lipids- TChol 167, HDL- 45, LDL- 96, 08/19 DM health maintenance: beta pratibha- metoprolol 100; ASA84 ; BYRON/ARB-lisinopril 40 ; statin- pravvastatin 80; flu shot-2010 ; pneomovax- 2004; smoking- quit 1994; TSH- It has been a little over two years since his last visit and he has been doing very well. He has cut down on his calories, increased his activity, and now has gotten his weight down quite a bit. He peaked at 405 pounds and he is down about 280 pounds and he has been at 280 pounds for at least six to eight months now. He did this basically by eating less and exercising more. He walks about a half a mile in 15 minutes every single day at work at his break time. DIET: For breakfast four slices of toast with margarine and a cup of coffee. Mid morning, a banana and some peanut butter crackers, or cheese and crackers one of the packets. For lunch, usually a small portion of left overs, a little one and half to two cup plastic container used to do at least sized cup and for supper last night, he had sausage and onions on a bun just one. He says he is probably eating about half as much as he used to. Little frustrated that the weight loss has stopped. Checking his blood sugars usually three times a day. Fastings 120 to 160. Lunch about 160 and bedtime 130. He has had a recent bump in his A1c from 7.3 in August to 7.7 in December, and he is doing well with metformin U-500 and Actos. He is feeling well, best he felt in a longtime. He is back to riding a bike really feeling much better. Current outpatient prescriptions ordered prior to encounter Medication Sig Dispense Refill ??? CIS Free Text Med - Aspirin ??? gabapentin (NEURONTIN) 600 mg tablet 600 MG = 1 Tablet(s) PO Three times daily ??? insulin regular CONCENTRATE U-500 (HUMULIN R U-500) 500 unit/mL Soln 0.16cc (16 unit kylee on syringe=80 units SQ Three times daily ??? lisinopril (PRINIVIL;ZESTRIL) 40 mg tablet ??? metFORMIN (GLUCOPHAGE) 1,000 mg tablet ??? ADALIMUMAB (HUMIRA SUBQ) ??? DULoxetine (CYMBALTA) 60 mg capsule ??? multivitamin (THERAGRAN) tablet ??? metoprolol (LOPRESSOR) 100 mg tablet ??? diphenhydrAMINE-Acetaminophen (NON-ASPIRIN PM) 25-500 mg Tab ??? CALCIUM CARBONATE (TUMS ORAL) ??? diclofenac (VOLTAREN) 75 mg EC tablet Allergies Allergen Reactions ??? Cis Free Text Allergy Hymenoptera (Bee) Stings. ??? Shellfish Derived ??? Methotrexate PAST MEDICAL HISTORY: Type 2 diabetes, psoriasis, hypertension, hyperlipidemia, morbid obesity, GERD, osteoarthritis, and ASCVD, catheterization 2002. PHYSICAL EXAMINATION: Blood pressure 129/65, pulse 67, respiratory rate 18, weight 280 pounds, height 5 feet 6 inches. In general, he is a well-developed overweight man, in no acute distress. Skin: He has areas of lipohypertrophy in his abdomen, where he is giving his insulin injection. No ulcerations on the feet. Good hair growth. No calluses. Cardiovascular: 2+ pulses. No edema. Lungs: Clear to auscultation and percussion. Neurologic Exam: Excellent light touch sensation to the monofilament. Gait is normal. Psych: Mood and affect are appropriate. IMPRESSION: Mr. Gan is a 61-year-old man with type 2 diabetes mellitus. He has been able to decrease his insulin doses nearly in half since the last time I saw him with an over 100 pound weight loss. He has had a recent slight bump in his hemoglobin A1c, and I expect he may just need a little more insulin. We talked about other options and one might be to continue the U-500 insulin and his metformin, stop the Actos and do a therapeutic trial of GLP-1 agonists, Victoza or Byetta. This would be more expensive and require another injection. He said he like to try just slight adjustment to insulin first. If he does not make any headway, he will talk with Dr. Perera and perhaps pursue the GLP-1 agonists angle. PLAN: 1. Increase insulin by 0.01 mL morning and evening every week or so until blood sugars hit targets, premeal below 130, two hour post-meal below 180. If hypoglycemia is a problem, he can always decrease the dose of insulin. 2. Avoid area of lipohypertrophy for insulin injection. 3. Follow up as needed in the future. 4. Consider a trial of GLP-1 agonists, Victoza or Byetta and stopping the Actos. documented in this encounter Plan of Treatment Upcoming Encounters Date Type Specialty Care Team Description 04/27/2022 Tech Visit Vascular Surgery Samantha Anais Abhijit 04/27/2022 Office Visit Vascular Surgery Sulema Fajardo MD [facility] [address] VASCULAR SURGERY [place], [place] [address] (Wo rk) 05/18/2022 Office Visit Dermatology Alejandro Reese MD [address] [place] [address] DERMATOLOGY [place], [place] [address] (Wo rk) documented as of this encounter Visit Diagnoses Diagnosis DM type 2 (diabetes mellitus, type 2) - Primary Type II or unspecified type diabetes jolene litus without mention of complication, not stated as uncontrolled documented in this encounter Care Teams Sourcing Consultant Relationship Specialty Start Date End Date Jojo Perera, OLIVER PCP - General 06/30/10 10/28/15 DANIELLE [address] [place] [address] documented as of this encounter
--- OUTSIDE RECORDS SUMMARY | 2022-04-26 10:03 | XMS_ITS | Encounter Summary ---
:1950 Author Organization [facility] Address [address] [place] [address] Care Team Providers Name Role Phone Taye Ron MD Primary Care Provider Reason for Visit Reason Comments Psoriasis Follow-up Encounter Details Date Type Department Care Team Description 11/04/2016 Office Visit Dermatology at [facility] Alejandro Reese MD Psoriasis [address] [facility] [address] [place] [place] [address] DERMATOLOGY [phone] [place], [place] [address] (Wo rk) Social History Tobacco Use Types Packs/Day Years Used Date Former Smoker Quit: 01/11/19 99 Smokeless Tobacco: Never Used Sex Assigned at Date Recorded Not on file documented as of this encounter Progress Notes Alejandro Reese MD - 11/04/2016 4:00 PM EDT PROBLEM: 1. Follow up psoriasis. 2. Previously on Humira 03/2008 through 12/2011, then 2013 until last year. 3. Status post trial of Raptiva 10/2006 through 02/2008. 4. Status post PUVA with good results but unable to deal with time constraints. Unable to tolerate methotrexate or cyclosporin, lack of any significant response to Enbrel. Dylan is now retired. He is enjoying that. 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 Unfortunately, he lost his insurance coverage but now has Blue Cross Blue Shield and would like to see about getting back on Humira. In February he will be 67 and will be eligible for Medicare and will be signing up for hopefully a Medicare Part D plan that will cover Humira which previously entirely cleared his skin. Physical examination reveals a pleasant 66-year-old who has psoriasis present in thin patch plaques widely over his arms, his legs, his chest, his back. It calvillo. It stings. It itches. He surely has 15 to 20% total body coverage with psoriasis. ASSESSMENT/PLAN: Psoriasis. a. Attempt to get prior authorization for his Humira again. b. Patient given informational booklet with the Humira support number which should allow him to get the medication for $25 a month. c. Patient will be meeting soon with an advisor regarding Medicare Part D coverage come this February. He will attempt to get Part D coverage that will cover Humira. d. If he is not eligible until February for Humira, then begin UVB phototherapy. Would begin ideally on a daily basis. Patient had improved in the past, but affording the oxsoralen-ultra may be difficult. We will start with UVB instead. CC: Taye Ron MD documented in this encounter Plan of Treatment Upcoming Encounters Date Type Specialty Care Team Description 04/27/2022 Tech Visit Vascular Surgery Anais Singh 04/27/2022 Office Visit Vascular Surgery Sulema Fajardo MD [facility] [address] VASCULAR SURGERY [place], [place] [address] (Wo rk) 05/18/2022 Office Visit Dermatology Alejandro Reese MD [address] [facility] DERMATOLOGY [place], [place] [address] (Wo rk) documented as of this encounter Visit Diagnoses Diagnosis Psoriasis Other psoriasis documented in this encounter Care Teams Drapery Installer Relationship Specialty Start Date End Date Taye Ron MD PCP - General Family Medicine 11/04/16 [place] [address] documented as of this encounter
--- OUTSIDE RECORDS SUMMARY | 2022-04-26 10:03 | XMS_ITS | Encounter Summary ---
:1950 Author Organization [facility] [place] [address] Care Team Providers Name Role Phone Taye Ron MD Primary Care Provider Encounter Details Date Type Department Care Team Description 01/26/2019 External [place] [address] Social History Tobacco Use Types Packs/Day [...] MD [facility] [address] VASCULAR SURGERY [place], [place] [address] (Wo rk) 05/18/2022 Office Visit Dermatology Alejandro Reese MD [address] DERMATOLOGY [place], [place] [address] (Wo rk) documented as of this encounter Procedures Procedure Name Priority Date/Time Associated Diagnosis Comme nts ECG SCAN Routine 01/26/2019 Results for thi s procedure are in the resu lts section. documented in this encounter Results Scan Doc: ECG (01/26/2019) Narrative This result has an attachment that is no t available. Historical Provider MD MEDIA MGR SCAN EXT ORDR/RSLT documented in this encounter Visit Diagnoses Not on filedocumented in this encounter Care Teams Correspondence School Instructor Relationship Specialty Start Date End Date Taye Ron MD PCP - General Family Medicine 11/04/16 [address] [place] [address] documented as of this encounter
--- OUTSIDE RECORDS SUMMARY | 2022-04-26 10:03 | XMS_ITS | Encounter Summary ---
:1950 Author Organization [facility] [place] [address] Care Team Providers Name Role Phone Nathan Page MD Primary Care Provider Reason for Visit Reason Comments Diabetes Encounter Details Date Type Department Care Team Description 10/29/2015 Office Visit Endocrinology at [facility] C George Armenta DO Diabetes type 2, [facility] [place] [address] ENDOCRINOLOGY [phone] DEPT [place], [place] [address] Social History Tobacco Use Types Packs/Day Years Used Date Former Smoker Quit: 01/11/19 99 Smokeless Tobacco: Never Used Sex Assigned at Date Recorded Not on file documented as of this encounter Last Filed Vital Signs Vital Sign Reading Time Taken Comments Blood Pressure 181/78 10/29/2015 10:12 AM had 32 oz of coffee. EDT Pulse 86 10/29/2015 10:12 AM EDT Temperature - - Respiratory Rate - - Oxygen Saturation - - Inhaled Oxygen Concentration - - Weight 127 kg (280 lb) 10/29/2015 10:12 AM EDT Height 167.6 cm (5' 6) 10/29/2015 10:12 AM EDT Body Mass Index 45.19 10/29/2015 10:12 AM EDT documented in this encounter Progress Notes George Armenta DO - 10/29/2015 10:30 AM EDT Endocrinology Follow Up Visit Carlos Gan is a very pleasant 65 y.o. male who presents for follow up of type 2 diabetes. He was diagnosed in 1984. 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 Got his Smoaks fired up for Spring. Not on his road bike yet. BG is much improved. A1C last month 7%! Regimen: Lantus 50 units at night and 20 units of Novolog before meals. He is up to 1.8mg of liraglutide. No bloating, nausea, stomach upset. BG: Testing 2 times per day Fasting BG 180-260 2 hrs post-meal 200-300 He denies lows. He does have symptoms with lows (shaky at 60, weak and hungry). Complications: Eyes- 2015, no retinopathy; neuropathy- feet on neurontin; CAD ([place] in 1999 with PCI) atorvastatin 80mg, no angina Cholesterol checked at PCP 3 weeks ago. DIET (unchanged from last visit): Lunch: Salad Dinner: Meals on wheels (meat, veggie and carb) No snacking No juice, soda or sugar beverages. REVIEW OF SYSTEMS: as per HPI, all other systems reviewed and negative Patient Active Problem List Diagnosis Code ??? Psoriasis L40.9 ??? Diabetes mellitus type 2, uncomplicated E11.9 Allergies Allergen Reactions ??? Cis Free Text Allergy Hymenoptera (Bee) Stings. ??? Methotrexate ??? Shellfish Derived Current Outpatient Prescriptions on File Prior to Visit Medication Sig Dispense Refill ??? liraglutide (VICTOZA) 0.6 mg/0.1 mL (18 mg/3 mL) Pen Injector Inject 1.8 mg subcutaneously daily. 27 mL 3 ??? HUMIRA PEN 40 mg/0.8 mL Pen Injector Kit INJECT 1 PREFILLED PEN (40MG) SUBCUTANEOUSLY EVERY 14 DAYS 2 Pen PRN ??? blood sugar diagnostic strips (LIAUCH ULTRA TEST) Strip Use to test blood sugar 4 times daily,diag code E11.9 400 each 3 ??? atorvastatin (LIPITOR) 80 mg Tablet Take 80 mg by mouth daily. ??? PARoxetine (PAXIL) 20 mg Tablet Take 20 mg by mouth every morning. ??? insulin aspart (NOVOLOG) Insulin Pen Inject 20 Units subcutaneously 3 times daily (with meals). ??? insulin glargine (LANTUS) Solution Inject 50 Units subcutaneously nightly. ??? celecoxib (CELEBREX) 200 mg Capsule Take 200 mg by mouth daily. ??? [place]-3 Fatty Acids (FISH OIL) 500 mg Cap Take by mouth. ??? CIS Free Text Med - Aspirin ??? multivitamin (THERAGRAN) tablet ??? lisinopril (PRINIVIL;ZESTRIL) 40 mg tablet ??? ADALIMUMAB (HUMIRA SUBQ) ??? diphenhydrAMINE-Acetaminophen (NON-ASPIRIN PM) 25-500 mg Tab No current facility-administered medications on file prior to visit. History Social History ??? Marital Status: Spouse Name: N/A Number of Children: N/A ??? Years of Education: N/A Social History Main Topics ??? Smoking status: Former Smoker Quit date: 01/11/1999 ??? Smokeless tobacco: Never Used ??? Alcohol Use: None ??? Drug Use: None ??? Sexual Activity: None Other Topics Concern ??? None Social History Narrative Family History: Hypothyroidism: No known Thyroid cancer: No Diabetes mellitus: No Other auto-immune diseases: Psoriasis (mother) PHYSICAL EXAM: BP 181/78 mmHg Pulse 86 Ht 167.6 cm (5' 6) Wt 127.007 kg (280 lb) BMI 45.21 kg/m2 GENERAL: Well nourished, well hydrated, in no distress, oriented x 3 SKIN: normal in texture and temperature, +acanthosis at nape of neck EYES: no thyroid eye signs, MILAGROS, cornea normal NECK: supple, no palpable nodule or goiter, no bruit, no tenderness, no lymphadenopathy CVS: S1 S2 heard, rhythm regular RS: clear breath sounds bilateral ABD: soft, BS heard, no organomegaly, obese abdomen EXTREMITIES: No clubbing, no edema, no cyanosis, normal nails. No tremor on out- stretched hands. Impression: Mr. Gan is a 65-year-old male with type 2 diabetes for approximately the past 30 years now with excellent control as demonstrated by A1C of 7%. Excellent response to liraglutide. RECOMMENDATIONS: - Cont Victoza 1.8 mg daily (refilled today) - Cont Novolog 20 units with meals (25 units if post-meal BG >200) - Continue checking blood glucose a minimum of twice daily. - Follow up in 6 months George Armenta DO, MS Staff Structurer [facility] cc: NATHAN PAGE MD documented in this encounter Plan of Treatment Upcoming Encounters Date Type Specialty Care Team Description 04/27/2022 Tech Visit Vascular Surgery Anais Singh 04/27/2022 Office Visit Vascular Surgery Sulema Fajardo MD [facility] DR VASCULAR SURGERY [place], [place] [address] (Wo rk) 05/18/2022 Office Visit Dermatology Alejandro Reese MD [address] [place] [address] DERMATOLOGY [place], [place] [address] (Wo rk) documented as of this encounter Visit Diagnoses Diagnosis Diabetes type 2, controlled Type II or unspecified type diabetes jolene litus without mention of complication, not stated as uncontrolled documented in this encounter Care Teams Library Aide Relationship Specialty Start Date End Date Nathan Page MD PCP - General General Internal Medicine 10/29/15 7 [address] [place] [address] documented as of this encounter
--- OUTSIDE RECORDS SUMMARY | 2022-04-26 10:03 | XMS_ITS | Encounter Summary ---
:1950 Author Organization [facility] [place] [address] Care Team Providers Name Role Phone Jojo Perera Errol BOYD Primary Care Provider Encounter Details Date Type Department Care Team Description 05/21/2015 Telephone Endocrinology at [facility] C Elba Abernathy, [place] [address] Social History Tobacco Use Types Packs/Day Years Used Date Former Smoker Quit: 01/11/19 91 Smokeless Tobacco: Never Used Sex Assigned at Date Recorded Not on file documented as of this encounter Miscellaneous Notes Telephone Encounter - Elba Abernathy RN - 05/21/2015 4:15 PM EDT Carlos Gan - 05/21/2015 3:56 PM >','<< Less Detail',event) href=[email or web address]:;><< Less Detail George Armenta DO Sent: TueMay 21, 2015 4:00 PM To: Elba Abernathy, RN Message He does need test strips. Testing 4 times per day. Please write for 3 month supply. Thanks. Telephone Encounter - Elba Abernathy RN - 05/21/2015 3:56 PM EDT Malik calls nurse triage line and left voicemail message for Dr Armenta, states that his meter brand is One touch ultra. States that he uses [facility] in [facility] Forwarded to Dr Armenta. documented in this encounter Plan of Treatment Upcoming Encounters Date Type Specialty Care Team Description 04/27/2022 Tech Visit Vascular Surgery Anais Singh 04/27/2022 Office Visit Vascular Surgery Sulema Fajardo MD [facility] [address] VASCULAR SURGERY [place], [place] [address] (Wo rk) 05/18/2022 Office Visit Dermatology Alejandro Reese MD [address] DERMATOLOGY [place], [place] [address] (Wo rk) documented as of this encounter Visit Diagnoses Not on filedocumented in this encounter Care Teams Linux Engineer Relationship Specialty Start Date End Date Jojo Perera APRN PCP - General 06/30/10 10/28/15 DANIELLE [address] [place] [address] documented as of this encounter
--- OUTSIDE RECORDS SUMMARY | 2022-04-26 10:03 | XMS_ITS | Encounter Summary ---
:1950 Author Organization [facility] [place] [address] Care Team Providers Name Role Phone Nathan Page MD Primary Care Provider Encounter Details Date Type Department Care Team Description 10/29/2015 Orders Only Endocrinology at [facility] George Boothe DO Diabetes type 2, [facility] [place] [address] ENDOCRINOLOGY [phone] DEPT [place], [place] [address] Social History Tobacco Use Types Packs/Day Years Used Date Former Smoker Quit: 01/11/19 99 Smokeless Tobacco: Never Used Sex Assigned at Date Recorded Not on file documented as of this encounter Plan of Treatment Upcoming Encounters Date Type Specialty Care Team Description 04/27/2022 Tech Visit Vascular Surgery Anais Singh 04/27/2022 Office Visit Vascular Surgery Sulema Fajardo MD [facility] VASCULAR SURGERY [place], [place] [address] (Wo rk) 05/18/2022 Office Visit Dermatology Alejandro Reese MD [address] [facility] DERMATOLOGY [place], [place] [address] (Wo rk) documented as of this encounter Visit Diagnoses Diagnosis Diabetes type 2, uncontrolled Type II or unspecified type diabetes jolene litus without mention of complication, uncontrolled documented in this encounter Care Teams Customs Collector Relationship Specialty Start Date End Date Nathan Page MD PCP - General General Internal Medicine 10/29/15 7 [address]ELLE [address] [place] [address] documented as of this encounter
--- OUTSIDE RECORDS SUMMARY | 2022-04-26 10:03 | XMS_ITS | Encounter Summary ---
:1950 Author Organization [facility] [place] [address] Care Team Providers Name Role Phone Jojo Perera APRN Primary Care Provider Reason for Visit Reason Comments Diabetes Encounter Details Date Type Department Care Team Description 07/02/2015 Office Visit Endocrinology at [facility] C George Armenta DO Diabetes mellitus [facility] type 2[facility] [place] [address] ENDOCRINOLOGY [phone] DEPT [place] [phone] Social History Tobacco Use Types Packs/Day Years Used Date Former Smoker Quit: 01/11/19 99 Smokeless Tobacco: Never Used Sex Assigned at Date Recorded Not on file documented as of this encounter Last Filed Vital Signs Vital Sign Reading Time Taken Comments Blood Pressure 156/81 07/02/2015 10:16 AM EST Pulse 93 07/02/2015 10:16 AM EST Temperature - - Respiratory Rate - - Oxygen Saturation - - Inhaled Oxygen Concentration - - Weight 124.6 kg (274 lb 9.6 oz) 07/02/2015 10:16 AM EST Height 167.6 cm (5' 6) 07/02/2015 10:16 AM EST Body Mass Index 44.32 07/02/2015 10:16 AM EST documented in this encounter Progress Notes George Armenta DO - 07/06/2015 7:51 PM EST Endocrinology Follow Up Visit Carlos Gan is a very pleasant 65 y.o. male who presents for follow up of type 2 diabetes. He was diagnosed in 1984. In good control until recently coming off all meds due to financial reasons. Heis back on all his meds since our last visit 3 weeks ago. No infections or intercurrent illnesses. Osteoarthritis limits his physical activity. He still is active with lifting weights and pool therapy several days per week. Regimen: Lantus 50 units at night and 20 units of Novolog before meals. BG: Testing 2 times per day Fasting BG 180-240 2 hrs post-meal 200-300 He denies lows. He does have symptoms with lows (shaky at 60, weak and hungry). Complications: Eyes- 2014, no retinopathy; neuropathy- feet on neurontin; CAD ([place] in 1999 with PCI) atorvastatin 80mg, no angina Cholesterol checked at PCP 3 weeks ago. DIET: Lunch: Salad Dinner: Meals on wheels (meat, [...] to Visit Medication Sig Dispense Refill ??? blood sugar diagnostic strips (PAIEONTOUCH ULTRA TEST) Strip Use to test blood [...] Take 200 mg by mouth daily. ??? [place]-3 Fatty Acids (FISH OIL) 500 mg Cap Take by mouth. ??? CIS Free Text Med - Aspirin ??? multivitamin (THERAGRAN) tablet ??? lisinopril (PRINIVIL;ZESTRIL) 40 mg tablet ??? diphenhydrAMINE-Acetaminophen (NON-ASPIRIN PM) 25-500 mg Tab ??? ADALIMUMAB (HUMIRA SUBQ) No current facility-administered medications on file prior [...] auto-immune diseases: Psoriasis (mother) PHYSICAL EXAM: BP 156/81 mmHg Pulse 93 Ht 167.6 cm (5' 6) Wt 124.558 kg (274 lb 9.6 oz) BMI 44.34 kg/m2 GENERAL: Well nourished, well hydrated, in [...] diabetes for approximately the past 30 years under fairly good control the majority of the time of his diagnosis. Will start GLP-1 agonist in an attempt tolower insulin requirements. He may ultimately benefit from SGLT-2 inhibitor. RECOMMENDATIONS: - Start Victoza 0.6 mg x 1 week and then increase to 1.2 mg if free of GI symptoms - Increase Novolog to 25 units if post-meal BG >200 - Continue checking blood glucose a minimum of twice daily. - Pt to call my nurse in 2-3 weeks with updated glucose log for medication adjustment advice George Armenta DO, MS Staff Production Administrator [facility] cc: JOJO PERERA APRN documented in this encounter Plan of Treatment Upcoming Encounters Date Type Specialty Care Team Description 04/27/2022 Tech Visit Vascular Surgery Anais Singh Abhijit 04/27/2022 Office Visit Vascular Surgery Sulema Fajardo MD [facility] DR VASCULAR SURGERY [place], [place] [address] (Wo rk) 05/18/2022 Office Visit Dermatology Alejandro Reese MD [address] [place] [address] DERMATOLOGY [place], [place] [address] (Wo rk) documented as of this encounter Visit Diagnoses Diagnosis Diabetes mellitus type 2, uncontrolled Type II or unspecified type diabetes jolene litus without mention of complication, uncontrolled documented in this encounter Care Teams Pst Specialist Relationship Specialty Start Date End Date Jojo Perera APRN PCP - General 06/30/10 10/28/15 DANIELLE [address] [facility] [address] documented as of this encounter
--- OUTSIDE RECORDS SUMMARY | 2022-04-26 10:03 | XMS_ITS | Encounter Summary ---
:1950 Author Organization [facility] [place] [address] Care Team Providers Name Role Phone Taye Ron MD Primary Care Provider Reason for Visit Reason Comments Coronary Artery Disease Cardiomyopathy Mitral Valve Regurgitation Ekg Consultation (Routine) - Closed Specialty Diagnoses / Procedures Referred By Contact Refer red To Contact Cardiology Diagnoses CARDIOMYOPATHY Boris Lambert MD [facility] Cardiology 4a [address] [place] [id number] Referral ID Status Reason Start Date Expiration Date Visits V isits Requested Authorized [id number] Closed Consult, Test 07/11/2018 07/11/2019 [facility] PCP Updated and/or Approved Encounter Details Date Type Department Care Team Description 07/21/2018 Office Visit Cardiology at [facility] Jacoby Norwood, Ischemic cardiomyopathy ([facility] Dx); [facility] Coronary artery disease, angina presence unspecified, unspecified vessel or lesion type, unspecified whether eastern che[place] or transplanted heart; [facility] Exertional angina; [place], [place] [facility] Mitral valve insufficiency, unspecified etiology [id number] CARDI[address]Y DEPT. [phone] [place], [place] [address] Social History Tobacco Use Types Packs/Day Years Used Date Former Smoker Quit: 01/11/19 99 Smokeless Tobacco: Never Used Sex Assigned at Date Recorded Not on file documented as of this encounter Last Filed Vital Signs Vital Sign Reading Time Taken Comments Blood Pressure 126/72 07/21/2018 9:40 AM EST Pulse 98 07/21/2018 9:40 AM EST Temperature - - Respiratory Rate - - Oxygen Saturation 99% 07/21/2018 9:40 AM EST Inhaled Oxygen Concentration - - Weight 128.5 kg (283 lb 3.2 oz) 07/21/2018 9:40 AM EST Height 166.4 cm (5' 5.5) 07/21/2018 9:40 AM EST Body Mass Index 46.41 07/21/2018 9:40 AM EST documented in this encounter Patient Instructions Patient InstructionsJacoby Norwood MD - 07/21/2018 9:40 AM EST Start taking 120 mg of isosorbide mononitrate once a day. You can stop taking the 30 mg tablets. I am going to get your cath films from the [facility] to review with our interventional cardiologists. I will then call you. I hope we can schedule you for a stress test followed by an appointment with an fish butcher to see if we can help your situation. Call me with any concerns. [phone]. documented in this encounter Progress Notes Jacoby Norwood MD - 07/21/2018 9:40 AM EST SUBJECTIVE: 68 year old man with known 3VD referred by For second opinion regarding the management of his CAD. Patient Active Problem List Diagnosis ??? CAD (coronary artery disease) ??? Exertional angina ??? Ischemic cardiomyopathy ??? Hypertension ??? Dyslipidemia ??? Mitral regurgitation ??? Diabetes mellitus type 2, uncomplicated Dxd 1985 ??? Psoriasis Past Surgical History: Procedure Laterality Date ??? CREATED BY INTERFACE Entered not Verified Procedure Date: 10/06/2010 ??? CREATED BY INTERFACE No History of Operative Procedures Procedure Date: 10/06/2010 No family history on file. Social History Socioeconomic History ??? Marital status: Spouse name: None ??? Number of children: None ??? Years of education: None ??? Highest education level: None Social Needs ??? Financial resource strain: None ??? Food insecurity - worry: None ??? Food insecurity - inability: None ??? Transportation needs - medical: None ??? Transportation needs - non-medical: None Occupational History ??? None Tobacco Use ??? Smoking status: Former Smoker Last attempt to quit: 01/11/1999 Years since quittin.5 ??? Smokeless tobacco: Never Used Substance and Sexual Activity ??? Alcohol use: None ??? Drug use: None ??? Sexual activity: None Other Topics Concern ??? None Social History Narrative ??? None Current Outpatient Medications Medication Sig Dispense Refill ??? traZODone (DESYREL) 50 mg Tablet Take 50 mg by mouth. ??? spironolactone (ALDACTONE) 50 mg Tablet Take 50 mg by mouth Daily. ??? metoprolol succinate (TOPROL-XL) 25 mg Tablet Sustained Release 24 hr Take 25 mg by mouth Daily. ??? metFORMIN (GLUCOPHAGE) 1,000 mg Tablet Take 1,000 mg by mouth. ??? magnesium oxide (MAG-OX) 400 mg (241.3 mg magnesium) Tablet Take 400mg in the morning and 800mg at night ??? liraglutide (VICTOZA) 0.6 mg/0.1 mL (18 mg/3 mL) Pen Injector Inject 0.6 units into the skin daily for 1 week then 1.2mg daily for 1 week then 1.8mg daily. ??? insulin detemir U-100 (LEVEMIR) Solution Inject 60 Units subcutaneously. ??? gabapentin (NEURONTIN) 300 mg Capsule Take 300 mg by mouth Three times a day. ??? cholecalciferol, Vitamin D3, 2,000 unit Capsule Take 1 capsule by mouth Daily. ??? aspirin 81 mg Tablet, Delayed Release (E.C.) Take 81 mg by mouth Daily. ??? blood sugar diagnostic strips ([employer] ULTRA TEST) Strip Use to test blood sugar 4 times daily,diag code E11.9 400 each 3 ??? atorvastatin (LIPITOR) 80 mg Tablet Take 80 mg by mouth daily. ??? insulin aspart (NOVOLOG) Insulin Pen Inject 20 Units subcutaneously 3 times daily (with meals). ??? insulin glargine (LANTUS) Solution Inject 50 Units subcutaneously nightly. ??? [place]-3 Fatty Acids (FISH OIL) 500 mg Cap Take by mouth. ??? CIS Free Text Med - Aspirin ??? multivitamin (THERAGRAN) tablet ??? lisinopril (PRINIVIL;ZESTRIL) 40 mg tablet ??? diphenhydrAMINE-Acetaminophen (NON-ASPIRIN PM) 25-500 mg Tab ??? ADALIMUMAB (HUMIRA SUBQ) ??? acetaminophen (TYLENOL) 500 mg Tablet Take 500 mg by mouth Every 6 hours as needed. No current facility-administered medications for this visit. Allergies Allergen Reactions ??? Cis Free Text Allergy Hymenoptera (Bee) Stings. ??? Methotrexate ??? Shellfish Derived HPI: FROM 07/21/18: Was hospitalized at [facility] in 06/24 for acute systolic heart failure (EF 25-30%) and an ischemic cardiomyopathy. Found to have 3VD for which it was thought he was not a candidate forCABG or PCI. He was treated medically and a f/u echo in 09/2017 showed an EF of 45-50% with 1-2+ Started getting chest pains about 2 months ago. Was doing Cardiac Rehab. Seen in the ER at [facility]. Discharged. Has a band of squeezing chest pain with rare radiation down the left arm associated with SOB. Brought on by exertion but note much: walking to the care, vacuuming, sweeping. Gets the discomfort every other day. Has been getting more frequent and severe. Recently, started on a long acting nitroglycerine preparation that he takes each morning. Started 2 weeks ago. No big change in symptoms. Never wakes him up from a sound sleep. No PND, orthopnea. No presyncope or syncope. Recent labs shows no anemia, normal lytes and renal function, normal LFTs, INR 1.0 ROS: The patient denies or endorses (+): General: Unusual fatigue, fever, night sweats Cardiac: +Unusual chest pains and/or pressures, +unusual NESS, orthopnea, PND, peripheral edema, new nocturia, palpitations, presyncope, syncope Pulmonary: Cough, wheezing, sputum production, hemoptysis Neuro: TIA or stroke-like symptoms Vascular: Exertional calf, thigh or buttock pain to suggest claudication : Hematuria GI: Melena, bright red blood per rectum MS: Myalgias or arthralgias Endo: Cold or heat intolerance PHYSICAL EXAM Blood pressure 126/72, pulse 98, height 166.4 cm (5' 5.5), weight 128.5 kg (283 lb 3.2 oz), SpO2 99%. Obese middle aged man in NAD HEENT: Normocephalic, anicteric Chest: No palpation tenderness Lungs: Clear to auscultation and percussion Cardiac: Normal CVP, carotid up strokes full/not delayed, no carotid bruits, PMI discrete and not displaced, S1, S2 with physiologic splitting, no murmurs/rubs/gallops appreciated Abdomen: Normal bowel sounds, soft, nontender, no organomegaly Pulses: 2+ and symmetrical throughout, no femoral artery bruits Extremities: No clubbing, cyanosis, or edema Neuro: Grossly intact ECG 07/21/18: NSR at 96 bpm, LAD, lateral Q waves ASSESSMENT & PLAN: FROM 07/21/18: The patient has NYHA Class II-III CSA. He will likely benefit from a higher dose of isosorbide mononitrate. Will advance him to 120 mg QD from 30 mg QD. Also givena prescription for SL NTG. Informed of possible side effects of nitrates. If need be there is also room to advance his metoprolol to give him better heart rate control. He is on guideline medications for his ischemic cardiomyopathy. He is euvolemic by history and exam. Will obtain his cath films from the [facility] and review with interventional cardiology. If there is an option for revascularization willarrange for a perfusion imaging stress test here followed by an appointment with interventional cardiology. Time was spent in a face to face conversation with the patient (and accompanying family members, ifpresent) regarding my impressions and recommendations and providing counseling. All questions were answered to the patient's (and accompanying family's, if present) satisfaction. I will plan to see thepatient back in follow-up PRN. There will be phone follow-up documented in this encounter Plan of Treatment Upcoming Encounters Date Type Specialty Care Team Description 04/27/2022 Tech Visit Vascular Surgery Anais Singh 04/27/2022 Office Visit Vascular Surgery Sulema Fajardo MD [facility] VASCULAR SURGERY [place] [id number] (Wo rk) 05/18/2022 Office Visit Dermatology Alejandro Reese MD [address] DERMATOLOGY [place], [place] [address] (Wo rk) documented as of this encounter Procedures Procedure Name Priority Date/Time Associated Diagnosis Comme nts EKG 12-LEAD Routine 07/21/2018 9:59 AM Coronary artery diseas e, Results for this EST angina presence procedure ar e in unspecified, unspecified the results vessel or lesion type, secti on. unspecified whether eastern cherokee or transplanted heart Exertional angin a Ischemic cardiomyopathy documented in this encounter Results EKG 12 Lead (07/21/2018 9:59 AM EST) Component Value Ref Range Test Analysis Performed Pathologis t Method Time At Signature Ventricular rate 96 BPM MUSE SYSTEM Atrial Rate 96 BPM MUSE SYSTEM P-R Interval 192 ms MUSE SYSTEM QRS Duration 120 ms MUSE SYSTEM Q-T Interval 374 ms MUSE SYSTEM QTC Calculated 472 ms MUSE SYSTEM (Bezet) Calculated P [place] 65 degrees MUSE SYSTEM Calculated R [place] -64 degrees MUSE SYSTEM Calculated T [place] 115 degrees MUSE SYSTEM INTERPRETATION Normal sinus rhythm MUSE SYSTEM Left axis deviation Septal infarct , age undetermined Possible Lateral infarct , age undetermined Abnormal ECG No previous ECGs available Confirmed by MD TRINIDAD, JACOBY ([id number]) on 07/21/2018 11:18:32 AM Specimen Anatomical Collection Method Collection Time Receive d Time (Source) Location / / Volume Laterality 07/21/2018 9:59 AM 8 EST 11:18 AM EST Jacoby Norwood MD ECG ORDERABLES Performing Organization Address City/State/ZIP Code Phon e Number MUSE SYSTEM documented in this encounter Visit Diagnoses Diagnosis Ischemic cardiomyopathy - Primary Other specified forms of chronic ischemi c heart disease Coronary artery disease, angina presence unspecified, unspecified vessel or lesion type, unspecified whether eastern cherokee or love splanted heart Exertional angina Other and unspecified angina pectoris Mitral valve insufficiency, unspecified etiology documented in this encounter Care Teams Ribbon Tier Relationship Specialty Start Date End Date Taye Ron MD PCP - General Family Medicine 11/04/16 [place] [id number] documented as of this encounter
--- OUTSIDE RECORDS SUMMARY | 2022-04-26 10:03 | XMS_ITS | Encounter Summary ---
:1950 Author Organization [facility] [place] [address] Care Team Providers Name Role Phone Taye Ron MD Primary Care Provider Reason for Visit Reason Comments Medication Refill Encounter Details Date Type Department Care Team Description 02/05/2015 Refill Dermatology at [facility] Alejandro Reese MD [address] [facility] [address] [place] [address] DERMATOLOGY [phone] [place], [place] [address] (Wo rk) Social History Tobacco Use Types Packs/Day Years Used Date Former Smoker Quit: 01/11/19 91 Sex Assigned at Date Recorded Not on file documented as of this encounter Plan of Treatment Upcoming Encounters Date Type Specialty Care Team Description 04/27/2022 Tech Visit Vascular Surgery Anais Singh 04/27/2022 Office Visit Vascular Surgery Sulema Fajardo MD [facility] VASCULAR SURGERY [place], [place] [address] (Wo rk) 05/18/2022 Office Visit Dermatology Alejandro Reese MD [address] [facility] DERMATOLOGY [place], [place] [address] (Wo rk) documented as of this encounter Visit Diagnoses Not on filedocumented in this encounter Care Teams Structural Test Engineer Relationship Specialty Start Date End Date Taye Ron MD PCP - General Family Medicine 11/04/[address] [place] [address] documented as of this encounter
--- OUTSIDE RECORDS SUMMARY | 2022-04-26 10:03 | XMS_ITS | Encounter Summary ---
:1950 Author Organization [facility] Address [address] [place] [address] Care Team Providers Name Role Phone Taye Ron MD Primary Care Provider Reason for Visit Reason Comments Medication Refill Encounter Details Date Type Department Care Team Description 07/16/2015 Refill Dermatology at [facility] Alejandro Robles MD [address] [facility] [address] [place] [address] DERMATOLOGY [phone] [place], [place] [address] (Wo rk) Social History Tobacco Use Types Packs/Day Years Used Date Former Smoker Quit: 01/11/19 99 Smokeless Tobacco: Never Used Sex Assigned at Date Recorded Not on file documented as of this encounter Miscellaneous Notes Telephone Encounter - Rony Carpenter MD - 01/26/2019 5:15 PM EDT Telephone Triage Note Initial Contact Date: 01/26/19 Initial contact time: [phone] Referring Provider: Karli Patient Location: [facility] Presenting Symptoms per OSH: Exertional CP Past Medical History: 68 y/o ICM, HTN, DM, obese presenting with exertional CP. Taking NTG with some relief. Increased amount of NTG taken. Some exertional dyspnea. Presented to [facility] last June, found to have 3VD but apparently not a surgical/PCI candidate. He saw Dr. Norwood for a 2nd opinion. Pertinent Diagnostic Findings: Vitals: BP 116/70 HR 80 SaO2 EKG : NSR, TWI I,aVL, Q waves V1-V3 Troponin : 0.14 CXR: OSH Interventions: ASA Plavix Heparin Assessment/Plan: 68 y/o with known cardiac disease presenting with NSTEMI. Was suppose to follow up for a 2nd opinion. Will transfer for management of NSTEMI. - Above recommendations are based on information received over the phone; I have not personally interviewed or examined this patient. Rony Carpenter MD Office Rep [id number] P: [id number] documented in this encounter Plan of Treatment Upcoming Encounters Date Type Specialty Care Team Description 04/27/2022 Tech Visit Vascular Surgery Anais Snigh 04/27/2022 Office Visit Vascular Surgery Sulema Fajardo MD [facility] [address] VASCULAR SURGERY [place], [place] [address] (Wo rk) 05/18/2022 Office Visit Dermatology Alejandro Reese MD [address] [place] [address] DERMATOLOGY [place], [place] [address] (Wo rk) documented as of this encounter Visit Diagnoses Not on filedocumented in this encounter Care Teams Casino Cage Manager Relationship Specialty Start Date End Date Taye Ron MD PCP - General Family Medicine 11/04/16 [address] [place] [address] documented as of this encounter
--- OUTSIDE RECORDS SUMMARY | 2022-04-26 10:03 | XMS_ITS | Encounter Summary ---
:1950 Author Organization [facility] [place] [address] Care Team Providers Name Role Phone Jojo Perera APRN Primary Care Provider Reason for Visit Reason Comments Medication Refill Encounter Details Date Type Department Care Team Description 08/17/2015 Refill Dermatology at [facility] Alejandro Reese MD [address] [facility] [address] [place] [address] DERMATOLOGY [phone] [place], [place] [address] (Wo rk) Social History [...] MD [facility] VASCULAR SURGERY [place], [place] [address] (Wo rk) 05/18/2022 Office Visit Dermatology Alejandro Reese MD [address] [facility] DERMATOLOGY [place], [place] [address] (Wo rk) documented as of this encounter Visit Diagnoses Not on filedocumented in this encounter Care Teams Bowling Ball Weigher And Packer Relationship Specialty Start Date End Date Jojo Perera APRN PCP - General 06/30/10 10/28/15 D[address]ELLE [address] [place] [address] documented as of this encounter
--- OUTSIDE RECORDS SUMMARY | 2022-04-26 10:03 | XMS_ITS | Encounter Summary ---
:1950 [place] [address] Care Team Providers Name Role Phone Jojo Perera APRN Primary Care Provider Reason for Visit Reason Comments Diabetes Encounter Details Date Type Department Care Team Description 05/21/2015 Office Visit Endocrinology at [facility] C George Armenta, Diabetes mellitus type [facility] DO 2, [place] [address] [facility]ENTER [phone] [place] [address] Social History Tobacco Use Types Packs/Day Years Used Date Former Smoker Quit: 01/11/19 91 Smokeless Tobacco: Never Used Sex Assigned at Date Recorded Not on file documented as of this encounter Last Filed Vital Signs Vital Sign Reading Time Taken Comments Blood Pressure 144/67 05/21/2015 10:16 AM EDT Pulse 71 05/21/2015 10:16 AM EDT Temperature - - Respiratory Rate - - Oxygen Saturation - - Inhaled Oxygen Concentration - - Weight 123.9 kg (273 lb 3.2 oz) 05/21/2015 10:16 AM EDT Height 167.6 cm (5' 6) 05/21/2015 10:16 AM EDT Body Mass Index 44.1 05/21/2015 10:16 AM EDT documented in this encounter Progress Notes George Armenta DO - 05/21/2015 10:26 AM EDT Endocrinology Consult Patient Name: Carlos Gan Date of : 1950 PCP: JOJO PERERA APRN (General) HISTORY OF PRESENT ILLNESS: Carlos Gan is a very pleasant 65 y.o. male who presents for evaluation of type 2 diabetes. He was diagnosed in 1984. In 2002 he was dx with neuropathy. Most recent A1C was 6.9% 4 weeks ago. Off of all diabetes meds (due to cost) from Jul 2014 until Mar 2015, and went from 340 to 203 lbs (currently 270 lbs). BG was averaging 180-220 off of meds. No hospitalizations. He reports feeling very well for the past year or so. No infections or intercurrent illnesses. Osteoarthritis limits his physical activity. He lifts weights and does pool therapy several days per week and these have been beneficialfor his mobility. Regimen: Lantus 50 units at night and 20 units of Novolog before meals. He denies lows none in 6 months. He does have symptoms with lows (shaky at 60, weak and hungry). Complications: Eyes- 2013, no retinopathy; neuropathy- feet on neurontin; CAD (NE in 1999 with PCI) atorvastatin 80mg, no [...] to Visit Medication Sig Dispense Refill ??? Cosby-3 Fatty Acids (FISH OIL) 500 mg Cap Take by mouth. ??? CIS Free Text Med - Aspirin ??? multivitamin (THERAGRAN) tablet ??? lisinopril (PRINIVIL;ZESTRIL) 40 mg tablet ??? diphenhydrAMINE-Acetaminophen (NON-ASPIRIN PM) 25-500 mg Tab ??? ADALIMUMAB (HUMIRA SUBQ) ??? [DISCONTINUED] hydrochlorothiazide (HYDRODIURIL) 25 mg tablet Take 25 mg by mouth daily. ??? [DISCONTINUED] pioglitazone (ACTOS) 30 mg tablet Take 30 mg by mouth daily. ??? [DISCONTINUED] amlodipine (NORVASC) 2.5 mg tablet Take 2.5 mg by mouth daily. ??? [DISCONTINUED] pravastatin (PRAVACHOL) 40 mg tablet Take 80 mg by mouth daily. ??? [DISCONTINUED] pantoprazole (PROTONIX) 40 mg injection Inject 40 mg into the vein daily. ??? [DISCONTINUED] Glucosamine Sulfate (GLUCOSAMINE) 500 mg Tab Take by mouth 2 times daily. ??? [DISCONTINUED] metoprolol (LOPRESSOR) 100 mg tablet ??? [DISCONTINUED] gabapentin (NEURONTIN) 600 mg tablet 600 MG = 1 Tablet(s) PO Three times daily ??? [DISCONTINUED] insulin regular CONCENTRATE U-500 (HUMULIN R U-500) 500 unit/mL Soln 0.16cc (16 unit kylee on syringe=80 units SQ Three times daily ??? [DISCONTINUED] CALCIUM CARBONATE (TUMS ORAL) ??? [DISCONTINUED] metFORMIN (GLUCOPHAGE) 1,000 mg tablet ??? [DISCONTINUED] diclofenac (VOLTAREN) 75 mg EC tablet ??? [DISCONTINUED] DULoxetine (CYMBALTA) 60 mg capsule No current facility-administered medications on file prior to visit. History Social History ??? Marital Status: Spouse Name: N/A Number of Children: N/A ??? Years of Education: N/A Social History Main Topics ??? Smoking status: Former Smoker Quit date: 01/11/1991 ??? Smokeless tobacco: Never Used ??? Alcohol Use: None ??? Drug Use: None ??? Sexual Activity: None Other Topics Concern ??? None Social History Narrative Family History: Hypothyroidism: No known Thyroid cancer: No Diabetes mellitus: No Other auto-immune diseases: Psoriasis (mother) PHYSICAL EXAM: BP 144/67 mmHg Pulse 71 Ht 167.6 cm (5' 6) Wt 123.923 kg (273 lb 3.2 oz) BMI 44.12 kg/m2 GENERAL: Well nourished, well hydrated, in [...] nails. No tremor on out- stretched hands. NEURO: Decreased monofilament sensation from ankle distal : Deferred Impression: Mr. Gan is a 65-year-old male with type 2 diabetes for approximately the past 30 years under fairly good control the majority of the time of his diagnosis. However, due to insurance and financial concerns, he was off all of his diabetic medications for approximately six months. His presentation is consistent with type 2 diabetes as there is stigmata of insulin resistance, and he does have metabolic syndrome. His diabetes is complicated by mild peripheral neuropathy in his lower extremities and coronary artery disease. Considering the duration of diabetes and his age, his goal hemoglobin A1c ideally would be between 7% and 8%. I did discuss with Carlos that strict control is most important in the first five to seven years after diagnosis in order to decrease the risk of complications. Obviously, he is well beyond that period and therefore we can liberalize his A1c to some degree. I did remind him we want to control his blood sugars to prevent progression of his neuropathy and also that hyperglycemia impairs wound healing and leukocyte function. He is not currently testing at home, and I did have him to reinstitute twice daily testing including daily fasting blood glucose, random sampling two hours post meal and when symptomatic. In order for me to make recommendations regarding his treatment plan, I will need him to return with his glucose logs. He may benefit from the addition of an incretin such as liraglutide and that would help delay gastric emptying and suppress glucagon release and often times we see some weight loss with this medication. I did reinforce the need for daily exercise. He has made significant improvements in his diet, and I feel that he is doing excellent in that department. We will also check kidney function today both urine and serum to evaluate the benefits of metformin. RECOMMENDATIONS: 1. Check urine microalbumin, TSH, A1c and serum creatinine. 2. Check blood glucose a minimum of twice daily. 3. Follow up in six weeks for medication adjustments. We have reviewed our plan outlined above with the patient, and patient verbalized understanding. Allquestions were answered and most of the time was spent on counseling. Thank you for this consult, please do not hesitate to contact me with any questions. George Armenta DO, MS Staff Contract Consultant [facility] cc: JOJO PERERA APRN (General) documented in this encounter Plan of Treatment Upcoming Encounters Date Type Specialty Care Team Description 04/27/2022 Tech Visit Vascular Surgery Anais Singh 04/27/2022 Office Visit Vascular Surgery Sulema Fajardo MD [facility] [address] VASCULAR SURGERY [place], [place] [address] (Wo rk) 05/18/2022 Office Visit Dermatology Alejandro Reese MD [address] DERMATOLOGY [place], [place] [address] (Wo rk) documented as of this encounter Procedures Procedure Name Priority Date/Time Associated Diagnosis Comme nts U ALBUMIN/CRE RATIO Routine 05/21/2015 11:51 Diabetes mellitus type Results for this AM EDT 2, uncomplicated procedure a re in the results section. CREATININE Routine 05/21/2015 11:08 Diabetes mellitus type R esults for this AM EDT 2, uncomplicated procedure a re in the results section. TSH Routine 05/21/2015 11:08 Diabetes mellitus type R esults for this AM EDT 2, uncomplicated procedure a re in the results section. HEMOGLOBIN A1C Routine 05/21/2015 11:08 Diabetes mellitus type Results for this AM EDT 2, uncomplicated procedure a re in the results section. documented in this encounter Results Microalbumin, urine, random (05/21/2015 11:51 AM EDT) P athologist Signature U Creatinine 78 mg/dL CERNER MILLENNIUM U Albumin Conc, 43.8 mg/L CERNER Random MILLENNIUM Alb/Cr Ratio, 56 mcg/mg Cr CERNER Random MILLENNIUM Comment: Reference Range* Random collection (mcg/mg creatinine) Normal ?<30 Microalbuminuria ?? 30 - 300 Clinical Albuminuria ?? >300 *[place] [employer]. Diabetic Nephropathy. Diabetes Care 1997;(Suppl 1):S24-S27 Exercise within 24 hour, infection, fe isis, CHF, marked hyperglycemia, and marked hypertension may elevate urinary albumin excretion over baseline values. Specimen Anatomical Collection Method Collection Time Receive d Time (Source) Location / / Volume Laterality Urine specimen 05/21/2015 11:51 5 (specimen) AM EDT 12:09 PM EDT Resulting Agency Comment Spec In Lab Geroge Armenta DO URINE ORDERABLES Performing Organization Address City/[facility]/ZIP Code Phon e Number [address] CERNER MILLENNIUM (ABNORMAL) Creatinine (05/21/2015 11:08 AM EDT) athologist Signature Creatinine 0.66 (L) 0.80 - CERNER 1.50 mg/dL [facility] Comment: Please note that the pediatric reference intervals supplied above were not validated at [facility]. Results from pediatri c patients should be interpreted in conjunction to the patient's age, height and muscle mass. Estimated GFR >60 >=60 CERNER MILLENNIU M Comment: This estimated GFR (eGFR) value was calc ulated using the MDRD equation which has been validated on patients between t he ages of 18 and 70. The MDRD should not be used to assess kidney function in patients < 18 years of age or in patients with extremes of body mass, or in patients with acute kidney failure. This value should be multiplied by 1.2 f or patients. For further information please copy and past e the following links into your internet browser. [email or web address]://[email or web address]/DHnkdep [email or web address]://[email or web address] Specimen Anatomical Collection Method Collection Time Receive d Time (Source) Location / / Volume Laterality Blood specimen 05/21/2015 11:08 5 (specimen) AM EDT 11:23 AM EDT Resulting Agency Comment Spec In Lab George Armenta DO CHEMISTRY ORDERABLES Performing Organization Address City/[facility]/ZIP Code Phon e Number [address] [facility] MILLENNIUM TSH (05/21/2015 11:08 AM EDT) athologist Signature TSH 4.05 0.27 - 4.20 CERNER mcIU/mL [facility] Specimen Anatomical Collection Method Collection Time Receive d Time (Source) Location / / Volume Laterality Blood specimen 05/21/2015 11:08 5 (specimen) AM EDT 11:23 AM EDT Resulting Agency Comment Spec In Lab George Armenta DO CHEMISTRY ORDERABLES Performing Organization Address City/State/ZIP Code Verónica [place] [address] [facility] ([facility] Hemoglobin A1c (05/21/2015 11:08 AM EDT) Analysis Performed At Patho logis Time Signature Hemoglobin A1C 9.6 (H) 4.3 - 5.6 CERNER % MILLENNIUM Comment: Reference Range: 4.3 - 5.6% 5.7 [...] 36: Suppl. 1, S67-74 Est Avg Gluc 229 mg/dL [facility] Comment: eAG equivalents for HbA1c percentages: HbA1c(%) ?eAG(mg/dL) 6.0 ?126 6.5 ?140 7.0 ?154 7.5 ?169 8.0 ?183 8.5 ?197 9.0 ?212 9.5 ?226 10.0 ? 240 Limitations: The eAG calculation has not been validated on women, individuals below 18 years old and above 70 years old, and individuals with hemoglobinopathies. Additional resources are available on e ADA website: http://[email or web address]/DHMCadacalc David PENALOZA, Alisson J, Vladimir R, et al. ??Tr anslating the A1C assay into estimated average glucose values. ??Diabetes Care 2008:31(8):4316-6191. Specimen Anatomical Collection Method Collection Time Receive d Time (Source) Location / / Volume Laterality Blood specimen 05/21/2015 11:08 5 (specimen) AM EDT 11:23 AM EDT Resulting Agency Comment Spec In Lab George Armenta DO CHEMISTRY ORDERABLES Performing Organization Address City/State/[place] [address] [facility] documented in this encounter Visit Diagnoses Diagnosis Diabetes mellitus type 2, uncomplicated Type II or unspecified type diabetes jolene litus without mention of complication, not stated as uncontrolled documented in this encounter Care Teams Machine Maintenance Repairer Relationship Specialty Start Date End Date Jojo Perera, OLIVER PCP - General 06/30/10 10/28/15 DANIELLE [address] [facility] [address] documented as of this encounter
--- OUTSIDE RECORDS SUMMARY | 2022-04-26 10:03 | XMS_ITS | Encounter Summary ---
:1950 Author Organization [facility] Address [address] [place] [address] Care Team Providers Name Role Phone Taye Ron MD Primary Care Provider Encounter Details Date Type Department Care Team Description 06/14/2017 External Results TeleHealth Yony Bean [place] [address] CARDIOLOGY DEPT [phone] [place], [place] [address] (Wo rk) Social History Tobacco [...] Sulema Fajardo MD [facility] ER VASCULAR SURGERY [place], [place] [address] (Wo rk) 05/18/2022 Office Visit Dermatology Alejandro Reese MD [address] [facility] DERMATOLOGY [place], [place] [address] (Wo rk) documented as of this encounter Procedures Procedure Name Priority Date/Time Associated Diagnosis Comme nts ECG SCAN Routine 06/14/2017 documented in this encounter Results Scan Doc: ECG (06/14/2017) Narrative This result has an attachment that is no t available. Yony A Raelson MD MEDIA MGR SCAN EXT ORDR/RSLT documented in this encounter Visit Diagnoses Not on filedocumented in this encounter Care Teams Airplane Dispatcher Relationship Specialty Start Date End Date Taye Ron MD PCP - General Family Medicine 11/04/16 [facility] [address] documented as of this encounter
--- OUTSIDE RECORDS SUMMARY | 2022-04-26 10:03 | XMS_ITS | Encounter Summary ---
:1950 [place] [address] Care Team Providers Name Role Phone Jojo Perera OLIVER Primary Care Provider Reason for Visit Reason Onset Date Comments Medication Refill 10/22/2015 Encounter Details Date Type Department Care Team Description 10/22/2015 Refill Endocrinology at [facility] George Boothe [facility] [address] ENDOCRINOLOGY DEPT [phone] [place], [place] [address] (Wo rk) Social History Tobacco Use Types Packs/Day Years Used Date Former Smoker Quit: 01/11/19 99 Smokeless Tobacco: Never Used Sex Assigned at Date Recorded Not on file documented as of this encounter Miscellaneous Notes Telephone Encounter - Aster Dial LPN - 10/22/2015 10:04 AM EDT Per patient Rx for Victoza to go to [facility] in [place], [place] documented in this encounter Plan of Treatment Upcoming Encounters Date Type Specialty Care Team Description 04/27/2022 Tech Visit Vascular Surgery Anais Singh 04/27/2022 Office Visit Vascular Surgery Sulema Fajardo MD [facility] VASCULAR SURGERY [place] [address] (Wo rk) 05/18/2022 Office Visit Dermatology Alejandro Reese MD [address] DERMATOLOGY [place], [place] [address] (Wo rk) documented as of this encounter Visit Diagnoses Not on filedocumented in this encounter Care Teams Retail Wireless Sales Representative Relationship Specialty Start Date End Date Jojo Perera APRN PCP - General 06/30/10 10/28/15 DANIELLE [address] [place] [address] documented as of this encounter
--- OUTSIDE RECORDS SUMMARY | 2022-04-26 10:03 | XMS_ITS | Encounter Summary ---
:1950 Author Organization [facility] Address [address] [place] [address] Care Team Providers Name Role Phone Taye Ron MD Primary Care Provider Reason for Visit Auth/Cert Specialty Diagnoses / Procedures Referred By Contact Refer red To Contact Diagnoses NSTEMI (non-ST elevated myocardial infarction) NSTEMI Referral ID Status Reason Start Date Expiration Date Visits Requ ested Visits Authorized [id number] 1 1 Encounter Details Date Type Department Care Team Description 01/27/2019 Surgery Toppiece Cutter [facility] CARDIAC CATHETERIZATION [facility] MD [address] [place] [address] CARDIOLOGY DEPT [phone] [place], [place] [address] (Wo rk) Social History Tobacco [...] Sign Reading Time Taken Comments Blood Pressure 99/60 01/27/2019 12:55 PM EDT Pulse 67 01/27/2019 12:55 PM EDT Temperature 36.5 ??C (97.7 ??F) 01/27/2019 12:55 PM EDT Respiratory Rate 18 01/27/2019 12:55 PM EDT Oxygen Saturation 97% 01/27/2019 12:55 PM EDT Inhaled Oxygen Concentration - - Weight 131.4 kg (289 lb 11 oz) 01/27/2019 6:42 AM EDT Height 167.6 cm (5' 6) 01/26/2019 9:16 PM EDT Body Mass Index 46.97 01/26/2019 9:16 PM EDT documented in this encounter Discharge Summaries Neli Cameron PA - 02/06/2019 12:44 PM EDT Inpatient - Discharge Summary Patient Name: Connor Gan Patient Age: 68 y.o. Birthdate: 1950 Language: Malagasy Race: White Ethnicity: Not nor Admit Date: 01/26/2019 Discharge Date: 02/06/19 Attending Physician: Trip Corona MD Follow-up Recommendations for Providers: Please continue routine management of cardiovascular risk factors including blood pressure, lipids, glucose, etc. Please note any changes to medications. Patient to follow-up with PCP, Taye Ron MD, in 1-2 weeks. Patient to follow-up with Quality Assurance Group Leader, Dr. Boris Lambert, in 2 weeks. Patient to follow-up with Cardiac Surgery, Dr. Trip Corona, in ~ 4 weeks with CXR, EKG. Inpatient Provider Contact Information: [facility] Section of Cardiac Surgery [place] [phone] FAX [phone] Discharge Diagnoses (Hospital Problems) Primary Diagnoses: 01/31/19 [...] (WRVU 33.75) performed by Trip [facility]ona MDat [facility] MAIN OR ??? PRO CABG, ARTERY-VEIN, TWO N/A 01/31/2019 @CABG, TWO VENOUS GRAFTS & ARTERIAL GRAFT (WRVU 7.93) performed by Trip Corona MD at [facility] MAIN OR ??? PRO ENDOSCOPY W/VIDEO-ASST VEIN HARVEST, CABG Right 01/31/2019 ENDOSCOPIC HARVEST VEIN(S) FOR CABG (WRVU 0.31) performed by Trip Corona MD at [facility] MAIN OR Prior To Admission Medications Medications [...] times daily. 01/26/2019 at Unknown time ??? [place]-3 Fatty Acids (FISH OIL) 500 mg Cap [...] Unknown time ??? 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 On arrival to [facility] ER he denies having any chest pain , EKG without any acute abnormality but his troponins were elevated. Because of his classical symptoms of angina and troponin elevation loaded with plavix, started on heparin and transferred to [facility] for further evaluation. ?? He denies any recent fever, chills , rigors , sick contacts, long distance travel,PND or Orthopnea. His weight has increased few pounds but denies any lower extremity edema. He has been having claudication pain with exertion. Major Procedures/Operations: 01/31/19 s/p CABG X 3 Hospital Course: 01/31/19 s/p CABG X 3 Connor Gan was admitted to [facility] on 01/26/2019 via the Cardiology Service. He [...] appropriately. Plavix was started for burden of chalkyitsik coronary disease. Statin therapy was started. He [...] discharge plan at this time is to [facility] rehab. The remainder of the [...] sugar diagnostic strips Strp Commonly known as: ONETOUCH ULTRA TEST Use [...] at Discharge: General Instructions Dr. Workman in [facility] is the salon professional for follow up Insulin Discharge Instructions Resume [...] Trip Corona and/or the Cardiac Surgery Physician Warranty Clerk Team may be reached at . Weight: [...] Dr. Trip Corona. You may use a [place] Track or treadmill but avoid any pulling [...] friends, go to a movie, go to gnosticism, etc. Heavy activities: No hunting, skiing, jogging, snow shoveling, snowmobiling, lawn mowing, swimming, golf or tennis until after your return appointment with the surgeon. Do not ride motorcycles, [employer]'s tractors or horses. Avoid the use of [...] should resume a low fat, low cholesterol, [place] [employer] Diet/Diabetic diet. Driving: No driving [...] office will schedule an appointment with your Quality Assurance Group Leader, Dr. Boris Lambert MD, in 2 weeks. Our office will schedule an appointment with your Cardiac Surgeon, Dr. Trip Corona, in ~ 4 weeks with chest x-ray, EKG before your appointment. Cardiac Rehabilitation: [facility] CARDIAC REHABILITATION ?? Connor Gan was seen today regarding participation in the outpatient Phase [address] [facility]. The patient agrees to a referral to this program. The referral will be sent at discharge and the patient should be contacted by the Program within 1- 2 weeks from discharge. Future Appointments and Orders Future Appointments and Orders Future Appointments Provider Department Dept Phone 03/19/2019 11:30 AM Alejandro Reese MD Dermatology at [place] Arrive at: [facility] [address] [phone] Future Orders Complete By Expires EKG 12 Lead [34268 CPT(R)] 02/06/2019 (Approximate) 02/07/2020 Process Instructions: Scheduling Instructions: Questions: Which location will this be performed?: [place] Is a rhythm strip needed?: No XR Chest PA & Lateral (Generic) [92612 73602 Custom] 02/06/2019 (Approximate) 02/07/2020 Process Instructions: Scheduling Instructions: Questions: Where will study be performed?: [facility] Radiology Portable exam?: Reason for exam and clinical history: Please evaluate for interval changes/PTX/effusions - s/p CABGX 3 Other pertinent information: Stat read required?: Date of injury if applicable: Requested Time: Referral to Cardiac Rehab [DIX769 Custom] As directed Process Instructions: If no progress note charted, please enter Clinical details in comments. Scheduling Instructions: Questions: My question or request is: CABG- CR at [facility] Arrangements for VNA/home care: As above. VN RN OR PCP CHEST TUBE SUTURES & [place] WILL BE REMOVED AT ~4 [address] FOLLOW UP WITH DR. CORONA. Signed: DO Mcdonnell [facility] Section of Cardiac Surgery [place] [phone] FAX [phone] Date: 02/06/2019 CC: MD Aftab Steiner Michael J, MD [address] [place] [address] [place] [address] documented in this encounter Discharge Instructions Discharge InstructionsMontserrat Flores, AS400 PROGRAMMER ANALYST - 02/06/2019 9:[address] Workman in [facility] is the salon professional for follow up Insulin Discharge Instructions Resume [...] Trip Corona and/or the Cardiac Surgery Physician Warranty Clerk Team may be reached at . Weight: [...] Dr. Trip Corona. You may use a [place]amillo Track or treadmill but avoid any pulling [...] friends, go to a movie, go to gnosticism, etc. Heavy activities: No hunting, skiing, jogging, snow shoveling, snowmobiling, lawn mowing, swimming, golf or tennis until after your return appointment with the surgeon. Do not ride motorcycles, [employer]'s tractors or horses. Avoid the use of [...] should resume a low fat, low cholesterol, [place] Heart [employer] Diet/Diabetic diet. Driving: No driving [...] office will schedule an appointment with your Quality Assurance Group Leader, Dr. Boris Lambert MD, in 2 weeks. Our office will schedule an appointment with your Cardiac Surgeon, Dr. Trip Corona, in ~ 4 weeks with chest x-ray, EKG before your appointment. Cardiac Rehabilitation: [facility] CARDIAC REHABILITATION ?? Connor Gan was seen today regarding participation in the outpatient Phase [address] [facility]. The patient agrees to a [...] test blood 400 each 3 2014 strips (EntradaTOUCH ULTRA sugar 4 times daily, TEST) Strip diag code E11.9 [place]-3 Fatty Acids Take by mouth. 0 (FISH [...] pt and ex . Report called to [facility] oven operator Dana. Pt went in private car to rehab. Myra Verma - 02/06/2019 2:06 PM EDT Office of Care Management/Relations Manager Patient Name: Connor Gan : 1950 Patient has been offered a snf bed at [facility] Pts to transport pt to facility. No MD to MD report necessary Please call Nursing Report to [phone], ask for green building design specialist. Info to accompany patient: Narcotic Prescriptions Copies of Medication Administration Records and IV sheets for past 10 days. Plan: Relations Manager will be available to the patient and Candy Catcher-RN and/or Fiberglass Boat Maker for further assistance. Patient will be discharged to: [facility] [place] [phone] Myra Verma Relations Manager Zehra Akhtar RN - 02/06/2019 12:10 PM EDT An Important Message From Medicare about Your Rights letter reviewed with pt and pt signed acknowledgment and was provided copy Zehra Akhtar RN - 02/06/2019 11:04 AM EDT Images from the original note were not included. Patient is medically ready for discharge today. Patient accepted bed offer at: [facility] Address [address] [place], [place] [id number] RN please call nursing report to: Transportation: [...] your insulin doses adjusted. Montserrat Flores APRN [facility] Endocrinology Diabetes Management Pager [phone] minutes of this 35 minute visit was spent with the patient in counseling on diabetes and treatment plan, reviewing all glucose and insulin data as well as relevant laboratory results with the patient, and coordination of care on the inpatient unit including nursing and primary team. Neli Cameron PA - 02/06/2019 8:06 AM EDT Cardiac Surgery Progress Note: ID: [id number] Mr. Gan 6 Days Post-Op s/p CABG [...] work of breathing on room air; Pulling 4459-1669 mL on incentive spirometer. Heart: RRR, SR [...] 75 mg qd for diffuse burden of chalkyitsik coronary disease Endo: Endocrinology recommendations for home regimen pending Other: - Discussed Humira/adalimumab with Derm - Hold Humira for post-operative wound healing. If he needs to defer the immunosuppressant past 1-2 weeks, he will have to return to his tool engine lathe set up operator for a reloading dose. D/W patient, he expresses understanding and is agreeable to plan. - Rheumatology outpatient referral recommended by Fellow; Rheum expressed similar concerns regardingwound healing while on immunotherapy. Patient informed. Dispo: Floor, full code. Pending rehab placement DW Attending Surgeon on rounds. DO Mcdonnell 02/06/19 Cardiac Surgery Pager [phone] YT Neli Cameron PA - 02/05/2019 11:55 AM EDT Cardiac Surgery Progress Note: ID: [id number] Mr. Gan 5 Days Post-Op s/p CABG [...] he will have to return to his tool engine lathe set up operator for a reloading dose. - Rheumatology outpatient [...] 75 mg qd for diffuse burden of chalkyitsik coronary disease Endo: maintain on insulin gtt, lantus 50U qhs; appreciate Endocrinology recommendations Dispo: Floor, full code. Needs rehab at d/c DW Attending Surgeon on rounds. An DO Amaya 02/05/19 Cardiac Surgery Pager [phone] Adi Patel PA - 02/04/2019 10:37 AM EDT Cardiac Surgery Progress Note: ID: [id number] Mr. Gan 4 Days Post-Op s/p CABG [...] Tubes/Lines/Drains: PIVs LABS: Recent Labs 02/03/19 0227 WBC 18.2* HGB 9.7* HCT 29.3* PLATELET [...] 75 mg qd for diffuse burden of chalkyitsik coronary disease Endo: maintain on insulin gtt, lantus 50U qhs; appreciate Endocrinology recommendations Dispo: Floor, full code. Needs rehab at d/c DW Attending Surgeon on rounds. Gus East MD - 02/03/2019 12:34 PM EDT Cardiac Surgery Progress Note: ID: [id number] Mr. Gan 3 Days Post-Op s/p CABG [...] 75 mg qd for diffuse burden of chalkyitsik coronary disease Endo: maintain on insulin gtt, appreciate Endocrinology recommendations Dispo: Floor, full code. Needs rehab at d/c Attending Surgeon on rounds. Mary Goff MD [...] Type 2 Insulin gtt Diet Carb control 60//75 Labs: Ref. Range 01/31/2019 18:00 01/31/2019 18:08 [...] Carb controlled Case was discussed with Staff Medical Records Clerk, Dr. Nolberto Goff PGY 4 Endocrinology Pager [phone] Associated attestation - Abelardo Arvizu MD - 02/04/2019 2:36 PM EDT I discussed this patient with Dr. Goff. I reviewed the kuo portions of the history and physicalexam, and reviewed pertinent lab data. I was involved in all medical decision making and agree with this plan. ABELARDO ARVIZU MD Lard Makersample dye mixer Section of Endocrinology [facility] Zehra Akhtar RN - 02/02/2019 2:03 PM EDT Images from the original note were not included. Based on discussions with the multi-disciplinary healthcare team, the patient would benefit from inpatient level of care at discharge. ?? I have met with the patient/data entry representative to discuss discharge planning needs. I have provided the [facility], Office of Care Management letter from the Meatcutter pertaining to rehab referrals. I have also provided a letter describing our affiliations within the [facility] and educated them about their right to choose where referrals are placed. ?? I reviewed the different levels of rehab including SNF, swing, acute and LTAC with the patient/data entry representative. ?? The patient/data entry representative has been provided a list of facilities within their preferred geographic area. ?? I have requested that the patient/data entry representative provide at least three choices for referral. ?? The patient/data entry representative have requested referrals to: 1. [facility] Address [address] [place] [address] 2. [facility] [address] [place] [address] ?? [phone] 3. [facility] ?? PHONE: [phone] FAX: [phone] ?? Expected date of discharge: 02/06/2019 Note routed to Relations Manager who will communicate referrals to facilities and [...] Nutrition Intervention: Hospital Day 8 Diet Order: CHOShahida, [facility] Appetite: Poor Food allergies: Shellfish Chewing/Swallowing difficulty: [...] much and he is unsure of UBW. Bottle House Pumper provided patient with copy of Guidelines for [...] AM EDT Cardiac Surgery Progress Note: ID: [id number] Mr. Gan 2 Days Post-Op s/p CABG [...] RLE wrapped with andree bandage Tubes/Lines/Drains: juan JALLOH foley, tpw LABS: Recent Labs 02/01/19 0022 01/31/19 [...] Gas) No results found for: PHART, PO2ART, [id number] Assessment/Plan: Mr. Gan 2 Days Post-Op s/p CABG x 3. Pmhx pertinent for CAD, HTN, HLD, MR, DMII, cardiomyopathy, psoriasis, former smoker. Send cultures for fevers D/c cerna D/c PW BB 12.5 BID Start amio 400 TID for AF ppx Cont Lasix 20 IV BID Plan to restart home jerica tomorrow pending K Cont Plavix 75 mg qd for diffuse chalkyitsik coronary disease Endo following, plan to convert [...] 75 mg qd for diffuse burden of chalkyitsik coronary disease Endo: maintain on insulin gtt, appreciate Endocrinology recommendations, transition POD3 off gtt Dispo: [facility], full code, transfer. Needs rehab at d/c DW Attending Surgeon on rounds. Jojo Turner TOOL ROOM LATHE OPERATOR - 02/02/2019 9:58 AM EDT 02/02/19 0725 [...] Value Date/Time PHART 7.43 02/01/2019 05:58 AM PNR0ZIV 37 02/01/2019 05:58 AM PO2ART 106 (H) 02/01/2019 05:58 AM TRJ9WCH 24.0 02/01/2019 05:58 AM BEART -0.3 02/01/2019 [...] well. Pt wore Bipap overnite 05/15/40 for WESELY Pt has no treatments ordered at this time Will continue to monitor pt 01/31 cxr IMPRESSION 1. The endotracheal tube terminates at the level of the [place]. Recommend retraction by 3 cm. 2. Low lung volumes with bibasilar atelectasis. 3. Small bilateral pleural effusions, larger on the left side. ?? Zehra Akhtar RN - 02/01/2019 9:54 AM EDT The patient/data entry representative has been provided a list of Home Health Agencies/DME vendors which serve their preferred geographic area. A letter describing our affiliations was reviewed with them and theywere educated about their right to choose where referrals are placed. Patient requests referral to [facility] [address]. PHONE: [phone] FAX: [phone] Expected date of discharge: tbd Referral routed to the Relations Manager for matching with agency/vendor and to provide any required information. Paradise Brand PA - 02/01/2019 9:05 AM EDT Cardiac Surgery Progress Note: ID: [id number] Mr. Gan 1 Day Post-Op s/p CABG [...] wrapped with andree bandage Tubes/Lines/Drains: RIJ, juan, meds and l pleural cts, cerna, tpw [...] BID Plavix 75 mg qd for diffuse chalkyitsik coronary disease Endocrinology consult Intermittent usage of [...] 75 mg qd for diffuse burden of chalkyitsik coronary disease Endo: maintain on insulin gtt, appreciate Endocrinology recommendations Dispo: [facility], full code DW Attending Surgeon on rounds. Signed: DO Daniel [facility] Section of Cardiac Surgery Date: 02/01/2019 Vanessa [...] Date/Time PHART 7.30 (L) 02/01/2019 12:35 AM ASZ2QGK 33 (L) 02/01/2019 12:35 AM PO2ART 101 02/01/2019 12:35 AM ZQU1XGQ 15.9 (L) 02/01/2019 12:35 AM BEART -10.6 [...] Progress Note Patient Name: Connor Gan Service: PAN DUMPER / PA Responsible Attending: Lizz Cabrera MD Reason for continued hospitalization: Evaluation and management of unstable angina in a patient with known multivessel disease CT surgery planned today Active Problems: Active Hospital Problems Diagnosis ??? Atherosclerosis of coronary artery Overview: Had Catheterization in 2005 at [facility] -- showed two vessel disease that was not intervened upon (LAD and Circ). [facility] 06/15 showed MVD, not candidate for [...] Vitals for the past 168 hrs: Weight 06/26/19 0606 129.2 kg (284 lb 13.4 oz) [...] from 25% in [address] for crescendo angina with elevated troponins for further evaluation. On arrival to [facility] ERhe denied having chest pain, EKG without acute abnormality but his troponins were elevated. 2/2 classic symptoms of angina and troponin elevation, he was loaded with Plavix, started on heparin and transferred to [facility] for further evaluation. Cardiac catheterization found three-vessel [...] as he never had follow-up from his [facility] sleep study done in 2001 Advised about follow up with PMD for out patient CPAP machine and to lose weight Pulmonary consult appreciated ?? Code status Full code He wants his ex as next of kin for medical decision making, next of kin Ex Shraddha Esteves , HCPOA completed Discussed with MD Kelly Tesfaye, AS400 PROGRAMMER ANALYST 01/31/2019 Pan Castro RN - 01/31/2019 4:06 [...] this time secondary to(NSTEMI) per [facility]. [place] within one month. Kelly Oliveira APRN - 01/30/2019 3:40 PM EDT Images from the original note were not included. Inpatient Cardiology Progress Note Patient Name: Connor Gan Service: PAN DUMPER / PA Responsible Attending: Lizz Cabrera MD Reason for continued hospitalization: Evaluation and management of unstable angina in a patient with known multivessel disease CT surgery planned for 2nd case tomorrow Vein mapping and pulmonary consult appreciated CXR and spirometry needed Active Problems: Active Hospital Problems Diagnosis ??? Atherosclerosis of coronary artery Overview: Had Catheterization in 2005 at [facility] -- showed two vessel disease that was not intervened upon (LAD and Circ). [facility] 06/15 showed MVD, not candidate for [...] from 25% in [address] for crescendo angina with elevated troponins for further evaluation. On arrival to [facility] ERhe denied having chest pain, EKG without acute abnormality but his troponins were elevated. 2/2 classic symptoms of angina and troponin elevation, he was loaded with Plavix, started on heparin and transferred to [facility] for further evaluation. Cardiac catheterization found three-vessel [...] as he never had follow-up from his [facility] sleep study done in 2001 Advised about follow up with PMD for out patient CPAP machine and to lose weight Pulmonary consult appreciated ?? Code status Full code He wants his ex as next of kin for medical decision making, next of kin Ex Shraddha Esteves , [facility] completed Discussed with MD Kelly Tesfaye, OLIVER 01/30/2019 Associated attestation - Lizz Cabrera MD [...] [facility] Interventional Cardiology Pager [phone] Marine Teran MD - 01/30/2019 12:16 PM EDT Images from the original note were not included. INPATIENT PULMONOLOGY FOLLOW-UP NOTE SECTION OF PULMONARY/CRITICAL CARE MEDICINE Patient Name: Connor Gan : 1950 Medical Record: [id number] Date of Service: 01/30/2019 Hospital Day # [...] 01/30/2019, 12:17 PM Resident, Pulmonary Medicine Pager: [phone] Sukh Patel - 01/29/2019 3:17 PM EDT Referral from Daysi Vega to meet with patient to assess financial concerns. Met with patient and today in room. Patient was looking to give insurance information to patient registration. Made copies of patient's insurance cards ([employer], [employer], Medicare, [facility] FA) and gave copy to Jennifer's patient registration to upload into patient's account. Kelly Oliveira, OLIVER - 01/29/2019 11:34 AM EDT Images from the original note were not included. Inpatient Cardiology Progress Note Patient Name: Connor Gan Service: PAN DUMPER / PA Responsible Attending: Lizz Cabrera MD Reason for continued hospitalization: Evaluation and management of unstable angina in a patient with known multivessel disease CT surgery consult in progress Vein mapping and pulmonary consult today Active Problems: Active Hospital Problems Diagnosis ??? Atherosclerosis of coronary artery Overview: Had Catheterization in 2005 at [facility] -- showed two vessel disease that was not intervened upon (LAD and Circ). [facility] 06/15 showed MVD, not candidate for [...] from 25% in 2017 [address] for crescendo angina with elevated troponins for further evaluation. On arrival to [facility] ERhe denied having chest pain, EKG without acute abnormality but his troponins were elevated. 2/2 classic symptoms of angina and troponin elevation, he was loaded with Plavix, started on heparin and transferred to [facility] for further evaluation. Cardiac catheterization found three-vessel [...] as he never had follow-up from his [facility] sleep study done in 2001 Advised about follow up with PMD for out patient CPAP machine and to lose weight Pulmonary consult pre op surgery ?? Code status Full code He wants his ex as next of kin for medical decision making, next of kin Ex Shraddha Esteves Discussed with MD Kelly Tesfaye, AS400 PROGRAMMER ANALYST 01/29/2019 Associated attestation - Lizz Cabrera MD [...] [facility] [facility] Interventional Cardiology Pager [phone] Eliciakatie Kelly Rodriguez, AS400 PROGRAMMER ANALYST - 01/28/2019 9:41 AM EDT Images from the original note were not included. Inpatient Cardiology Progress Note Patient Name: Connor Gan Service: PAN DUMPER / PA Responsible Attending: Lizz Cabrera MD Reason for continued hospitalization: Evaluation and management of unstable angina in a patient with known multivessel disease CT surgery consult in progress Active Problems: Active Hospital Problems Diagnosis ??? Atherosclerosis of coronary artery Overview: Had Catheterization in 2005 at [facility] -- showed two vessel disease that was not intervened upon (LAD and Circ). [facility] 06/15 showed MVD, not candidate for [...] 01/26/192220 INR 1.1 Recent Labs 01/27/19 0408 01/26/19 222 NA 137 136 K 4.1 4.5 CL 103 101 CO2 21* 22 BUN 21* 22* CREATININE 0.84 0.94 Recent Labs 01/26/192220 AST 24 ALT 32 ALKPHOS 47 BILITOT 0.5 BILIDIR 0.1 Recent Labs 01/26/192220 CALCIUM 9.4 MAGNESIUM 0.71 Recent Labs 01/27/19 0408 01/26/192220 CK -- 133 TROPONINT <0.01 0.01* Pertinent [...] from 25% in [address] [facility] for crescendo angina with elevated troponins for further evaluation. On arrival to [facility] ERhe denied having chest pain, EKG without acute abnormality but his troponins were elevated. 2/2 classic symptoms of angina and troponin elevation, he was loaded with Plavix, started on heparin and transferred to [facility] for further evaluation. Cardiac catheterization found three-vessel [...] Shraddha Esteves Discussed with MD Kelly Tesfaye, AS400 PROGRAMMER ANALYST 01/28/2019 Associated attestation - Lizz Cabrera MD [...] long discussion with him and his ex- (DPOA) about his options (CABG vs. PCI). He was seen by CTS this am and per report the plan is to proceed with CABG. Please see CTS consult note for full details. Will optimize meds and plan for surgical revascularization. Remainder of plan per Kelly Oliveira's note. Lizz Cabrera MD [facility] Interventional Cardiology Pager [phone] Breanna Alcazar RN - 01/27/2019 6:35 PM [...] Progress Note Patient Name: Connor Gan Service: PAN DUMPER / PA Responsible Attending: Lizz Cabrera MD Reason for continued hospitalization: Evaluation and management of unstable angina in a patient with known multivessel disease Active Problems: Active Hospital Problems Diagnosis ??? Atherosclerosis of coronary artery Overview: Had Catheterization in 2005 at [facility] -- showed two vessel disease that was [...] from 25% in [address] [facility] for crescendo angina with elevated troponins for further evaluation. On arrival to [facility] ERhe denied having chest pain, EKG without acute abnormality but his troponins were elevated. 2/2 classi symptoms of angina and troponin elevation, he was loaded with Plavix, started on heparin and transferred to [facility] for further evaluation. Plan for Echo and [...] percutaneous since 2001). More recent records from [facility] in 2017 comment ondiffuse 3VD with severely [...] [facility] Interventional Cardiology Pager [phone] documented in this encounter H&P Notes Trip [...] artery Overview: Had Catheterization in 2005 at [facility] -- showed two vessel disease that was not intervened upon (LAD and Circ). [facility] 06/15 showed MVD, not candidate for [...] 3VD-managed medically-[facility]), DM- 2(Insulin dependent), HTN, HLD, ICM(LVEF-45%12313) improved from 25%(2017) and Psoriasis transferred from [facility] for crescend symptoms of angina with elevated troponins for [...] worsening shortness of breath. On arrival to [facility] ER he denies having any chest pain , EKG without any acute abnormality but his troponins were elevated. Because of his classical symptoms of angina and troponin elevation loaded with plavix, started on heparin and transferred to [facility] forfurther evaluation. He denies any recent fever, chills , rigors , sick contacts, long distance travel,PND or Orthopnea. His weight has increased few pounds but denies any lower extremity edema. He has been having claudication pain with exertion. Labs and Medications from [facility]); Vitals on arrival; Bp; 85/42 [...] mellitus ??? Hypertension Previous Diagnostics: Stress: Echo:09/21/2017; [facility] Echocardiogram; 06/2017 Cath: from [facility]; 2016 Coronary Angiography: Dominance: Right Left Main [...] file Gets together: Not on file Attends amish service: Not on file Active member of [...] times daily. 01/26/2019 at Unknown time ??? [place]-3 Fatty Acids (FISH OIL) 500 mg Cap [...] Unknown time ??? blood sugar diagnostic strips ([employer] ULTRA TEST) Strip Use to test blood [...] in lower extremities(Dorsalis pedis), no calf tenderness Neuro/INTERMEDIATE CARD TENDER: AAO x 3, No evident deficits Skin/Integumentary: [...] 3VD-managed medically-[facility]), DM- 2(Insulin dependent), HTN, HLD, ICM(LVEF-45%17438) improved from 25%(2017) and Psoriasis transferred from [facility] for crescendo symptoms of angina with elevated troponins for further evaluation. On arrival to [facility] ER he denies having any chest pain , EKG without any acute abnormality but his troponins were elevated. Because of his classical symptoms of angina and troponin elevation loaded with plavix, started on heparin andtransferred to [facility] for further evaluation. 1; OJXCAN-Vuge-4; He is known patient of significant ASCVD [...] Next of kin -Ex ; Shraddha Esteves; [phone] Galindo Bell MD Provider #: [id number] 01/26/2019 [...] artery Overview: Had Catheterization in 2005 at [facility] -- showed two vessel disease that was not intervened upon (LAD and Circ). [facility] 06/15 showed MVD, not candidate for [...] 3VD-managed medically-[facility]), DM- 2(Insulin dependent), HTN, HLD, ICM(LVEF-45%88714) improved from 25%(2017) and Psoriasis transferred from [facility] for crescendo symptoms of angina [...] worsening shortness of breath. On arrival to [facility] ER he denies having any chest pain , EKG without any acute abnormality but his troponins were elevated. Because of his classical symptoms of angina and troponin elevation loaded with plavix, started on heparin and transferred to [facility] forfurther evaluation. He denies any recent fever, chills , rigors , sick contacts, long distance travel,PND or Orthopnea. His weight has increased few pounds but denies any lower extremity edema. He has been having claudication pain with exertion. Labs and Medications from [facility]); Vitals on arrival; Bp; 85/42 [...] mellitus ??? Hypertension Previous Diagnostics: Stress: Echo:09/21/2017; [facility] Echocardiogram; 06/2017 Cath: from [facility]; 2017 Coronary Angiography: Dominance: Right Left Main [...] file Gets together: Not on file Attends amish service: Not on file Active member of [...] times daily. 01/26/2019 at Unknown time ??? [place]-3 Fatty Acids (FISH OIL) 500 mg Cap [...] Unknown time ??? blood sugar diagnostic strips ([employer] ULTRA TEST) Strip Use to test blood [...] in lower extremities(Dorsalis pedis), no calf tenderness Neuro/INTERMEDIATE CARD TENDER: AAO x 3, No evident deficits Skin/Integumentary: [...] 3VD-managed medically-[facility]), DM- 2(Insulin dependent), HTN, HLD, ICM(LVEF-45%55155) improved from 25%(2017) and Psoriasis transferred from [facility] for crescendo symptoms of angina with elevated troponins for further evaluation. On arrival to [facility] ER he denies having any chest pain , EKG without any acute abnormality but his troponins were elevated. Because of his classical symptoms of angina and troponin elevation loaded with plavix, started on heparin andtransferred to [facility] for further evaluation. 1; KUVDLB-Xltx-1; He is known patient of significant ASCVD [...] Next of kin -Ex ; Shraddha Esteves; [phone] Galindo Bell MD Provider #: [id number] 01/26/2019 [...] Corona MD - 02/06/2019 2:30 PM EDT [facility] Operative Note Patient Name: Connor Gan : [id number] MR#: [id number] Case Date: 01/31/2019 Surgeon: Surgeon(s) and Role: * Trip Corona MD - Primary * Adi Patel PA - Physician Warranty Clerk Preoperative diagnosis: CAD, Cardiomyopathy Postoperative diagnosis: CAD, Cardiomyopathy PROCEDURE: CABG X 3, WYLIE-LAD, SVG-OM, SVG- RDPA, EVH GREATER SAPHENOUS VEIN RIGHT LEG, EM Indications for procedure: Connor Gan is a 68 y.o. year old male who has been followed for many years with CAD and cardiomyopathy. HE was admitted to [facility] in June of 2017. At that time [...] good flow into the LAD LAD distribution. 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. The patient agrees to a referral to this program. The referral will be sent at discharge and the patient should be contacted by the Program within 1- 2 weeks from discharge. Plan of Care - Gladis Ogden RN - 02/06/2019 5:29 AM EDT Problem: Patient Care Overview Goal: Plan of Care Review Outcome: Ongoing (Interventions Implemented as Appropriate) 02/06/19 4207 Plan of Care Review Progress progress toward [...] no steps to enter. 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 Time IN / OUT: 7734-3794 Total Evaluation Minutes, Physical Therapy: 33(gtx1, tefx1) Zehra Fitzgerald PT Pager: [phone] Physical Therapy Inpatient Rehabilitation Department Plan of [...] oxycodone. I.S. Done with encouragement up to 2110-9680. Insulin gtt weaned to off this am [...] Catheterization) none Plan of Care - Giles Hawthorne, JACEY - 02/04/2019 5:12 AM EDT Problem: Patient [...] EVALUATION NOTE: OUTCOME SUMMARY: Pt came from [facility] around 1200. A&O. VSS. SR on tele. [...] management and to provide a review of usp diabetes care. 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 Monitoring - continue BG tid ac & hs Diet - low fat/low carb diet Exercise - weight-bearing exercise 30 min/day, as tolerated Thank you for allowing us to provide care for your patient Montserratoxana Flores APRN Endocrinology Pager [phone] Plan of Care - Jesus Reynoso, PT [...] (WRVU 33.75) performed by Trip [facility]ona MDat [facility] ??? PRO CABG, ARTERY-VEIN, TWO N/A 01/31/2019 @CABG, TWO VENOUS GRAFTS & ARTERIAL GRAFT (WRVU 7.93) performed by Trip Corona MD at [facility] OR ??? PRO ENDOSCOPY W/VIDEO-ASST VEIN HARVEST, CABG Right 01/31/2019 ENDOSCOPIC HARVEST VEIN(S) FOR CABG (WRVU 0.31) performed by Trip Corona MD at [facility] Social History: Pt lives alone in a senior apartment with no steps to enter. 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 [...] Therapy: 38(eval; te-f) JESUS REYNOSO, PT Pager: [phone] Physical Therapy Inpatient Rehabilitation Department Brief Op Note - Trip Corona MD - 01/31/2019 7:40 PM EDT Brief Operative Note Patient Name: Connor Gan : [id number] MR#: [id number] Case Date: 01/31/2019 Surgeon: Surgeon(s) and Role: * rTip Corona MD - Primary * Adi Patel PA - Physician Warranty Clerk Preoperative diagnosis: CAD, Cardiomyopathy Postoperative diagnosis: CAD, [...] EDT Office of Care Management Initial Assessment Director Food Safety DAYSI VEGA RN,MA,ACM:Reviewed record and in Cardiology Rounds w team,[facility], green building design specialist, SURGICAL ASSISTANT, PT Source of Information: eDH,team, pt interview [...] Current Decision-Making Capacity: intact Advance Care Planning: [facility] has done and [facility] has a copy and primary DPOAH is ex /friend Shraddha Esteves and daughter Beryl aGn as alternate. Current Coping/Education/Information Needs: smiling doing [...] w her if needed post op; dtr [facility] History:denies Substance Use/Abuse: Quit smoking 1998. ETOH- very occasional Other Pertinent/Service Specific Information: none Health/Prescription Coverage: Primary Insurance: MEDICARE Secondary Insurance:He thinks he has Hum[employer] as well as financial support from [facility] Prescription Coverage: Medicare D +VPharm(Vt aid for prescription program) Preferred Pharmacy: not addresssed Other: Thought he gave his info to [facility] long before this adm and also thought he was approved for financial assist w [facility]. Primary Care Provider: Taye Ron MD [phone] Patient/Caregiver Goals of Treatment:Get home,back on my own Potential Needs for Transition of Care: Rehab/SNF: Discussed generally that this is sometimes needed post CABG and that was one of the reasons helpful to know about supplement to his medicare. Home Health: ([facility]) DME: none Dialysis: NA Community Resources: will provide NETWORK SPECIALIST choices Transportation: dtr or friend Other: none [...] of RN. Plan: Referral to Sukh Patel Relations Manager to f/u re secondary ins and or need for medicaid. A member of the Care Management team will continue to monitor progress, follow for continuity of care and assist with transition of care planning. DAYSI VEGA RN,MA,ACM for RNCM Pager: [phone] Consult Note - Marine Teran MD - 01/29/2019 9:00 AM EDT Images from the original note were not included. 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 [...] today. TSH 15.65 at admission. EKG: Variable AR interval, Q waves on inferior leads. 2D [...] 01/29/2019, 9:00 AM Resident, Pulmonary Medicine Pager: [phone] Plan of Care - Pan Castro, RN - 01/29/2019 4:14 AM EDT Problem: Patient Care Overview Goal: Plan of Care Review Outcome: Ongoing (Interventions Implemented as Appropriate) 01/28/19199901/29/19 0409 Plan of Care Review Progress -- progress [...] Outcome: Ongoing (Interventions Implemented as Appropriate) 01/28/19 965 Plan of Care Review Progress progress toward [...] Outcome: Ongoing (Interventions Implemented as Appropriate) 01/28/19 175 Cardiac: ACS (Acute Coronary Syndrome) Problems Assessed [...] respiratory to try room air ABG tomorrow- 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 HE was admitted to [facility] in June of 2017. At that time [...] artery Overview: Had Catheterization in 2005 at [facility] -- showed two vessel disease that was not intervened upon (LAD and Circ). [facility] 06/15 showed MVD, not candidate for [...] times daily. 01/26/2019 at Unknown time ??? [place]-3 Fatty Acids (FISH OIL) 500 mg Cap [...] Unknown time ??? blood sugar diagnostic strips ([employer] ULTRA TEST) Strip Use to test blood [...] Watson MD - 01/27/2019 12:33 PM EDT [facility] Operative Note Patient Name: Connor Gan : [id number] MR#: [id number] Case Date: 01/27/2019 Surgeon: Surgeon(s) and Role: * Taisha Watson MD - Primary * David Castro PA - Physician Warranty Clerk Preoperative diagnosis: nstemi Postoperative diagnosis: NSTEMI, with [...] evident early complications. Results discussed with service salon professional Dr Lizz Cabrera, and with the patient and their family. Letter sent to referring salon professional, Dr Lambert. A time-out was conducted prior [...] further details. Galindo Bell MD 01/27/2019 Pager [phone] Plan of Care - Joe Mccall RN - 01/27/2019 3:28 AM EDT Problem: Patient Care Overview Goal: Plan of Care Review Outcome: Ongoing (Interventions Implemented as Appropriate) 01/26/19 2100 01/27/19 0250 Plan of Care Review Progress -- no change Coping/Psychosocial Plan Of Care Reviewed With patient -- OUTCOME EVALUATION NOTE: OUTCOME SUMMARY: Pt admitted to [facility] from [facility] with stable VS, A+Ox4, and [...] Visit Vascular Surgery Sulema Fajardo MD [facility] VASCULAR SURGERY [place], [place] [address] (Wo rk) 05/18/2022 Office Visit Dermatology Alejandro Reese MD [address] [facility] DERMATOLOGY [place], [place] [address] (Wo rk) Scheduled Referrals [...] are i n the results section. PREPARE RBC STAT 01/31/2019 1:25 Results for [...] section. TYPE AND SCREEN Routine 01/30/2019 6:18 ([facility]P/[facility]) PM EDT POCT GLUCOSE Routine 01/30/2019 4:11 [...] Results for this GRAFT, BILAT AM EDT [place] coronary artery proce dure are in of [place] heart with the res ults unstable angina [...] results elevated myocardial section. infarction) Atherosclerosis of [place] coronary artery of [place] heart with unstable angina pectoris CARDIAC Routine [...] are in Atherosclerosis of the resul ts [place] coronary artery secti on. of [place] heart with unstable angina pectoris NSTEMI (non-ST [...] 456 ms MUSE SYSTEM (Bezet) Calculated P [place] 41 degrees MUSE SYSTEM Calculated R [place] -65 degrees MUSE SYSTEM Calculated T [place] 146 degrees MUSE SYSTEM INTERPRETATION Sinus rhythm [...] EXAMINATION: XR CHEST PA AND LATERAL (GE PHD Virtual TechnologiesIC) CLINICAL HISTORY: Please evaluate for in terval [...] POC Glucose 232 (H) 65 - 199 [facility] Comment: Supplemental ranges: <140 mg/dL before meals <180 mg/dL all other times of the day Specimen Anatomical Collection Method Collection Time Receive d Time (Source) Location / / Volume Laterality Blood specimen 02/06/2019 11:49 9 (specimen) AM EDT 11:49 AM EDT Trip Corona MD POINT OF CARE TEST ORDERABLE S Performing Organization Address City/State/[place] [address] Potassium (02/06/2019 8:20 AM EDT) athologist Signature Potassium 4.5 3.5 - 5.0 [facility] mmol/L [facility] Comment: Please note: ??Patients with [...] Organization Address City/State/ZIP Code Phon e Number [address] POCT Glucose (02/06/2019 7:47 AM EDT) athologist Signature POC Glucose 147 65 - 199 [place] mg/dL [facility] Comment: Supplemental ranges: <140 mg/dL before meals <180 mg/dL all other times of the day Specimen Anatomical Collection Method Collection Time Receive d Time (Source) Location / / Volume Laterality Blood specimen 02/06/2019 7:47 AM 7:47 (specimen) EDT AM EDT Trip Corona MD POINT OF CARE TEST ORDERABLE S Performing Organization Address City/[facility]/ZIP Code Phon e Number [address] POCT Glucose (02/06/2019 5:00 AM EDT) athologist Signature POC Glucose 129 65 - 199 [place] mg/dL [facility] Comment: Supplemental ranges: <140 mg/dL before meals <180 mg/dL all other times of the day Specimen Anatomical Collection Method Collection Time Receive d Time (Source) Location / / Volume Laterality Blood specimen 02/06/2019 5:00 AM 019 5:00 (specimen) EDT AM EDT Trip Corona MD POINT OF CARE TEST ORDERABLE S Performing Organization Address City/[facility]/ZIP Code Phon e Number [address] POCT Glucose (02/05/2019 11:18 PM EDT) athologist Signature POC Glucose 132 65 - 199 [place] mg/dL [facility] Comment: Supplemental ranges: <140 mg/dL before meals <180 mg/dL all other times of the day Specimen Anatomical Collection Method Collection Time Receive d Time (Source) Location / / Volume Laterality Blood specimen 02/05/2019 11:18 9 (specimen) PM EDT 11:18 PM EDT Trip Corona MD POINT OF CARE TEST ORDERABLE S Performing Organization Address City/State/ZIP [place] [address] (ABNORMAL) POCT Glucose (02/05/2019 7:57 PM EDT) P athologist Signature POC Glucose 248 (H) 65 - 199 [facility] RUPALI mg/dL [facility] Comment: Supplemental ranges: <140 mg/dL before meals <180 mg/dL all other times of the day Specimen Anatomical Collection Method Collection Time Receive d Time (Source) Location / / Volume Laterality Blood specimen 02/05/2019 7:57 PM 019 7:57 (specimen) EDT PM EDT Trip Corona MD POINT OF CARE TEST ORDERABLE S Performing Organization Address City/State/ZIP [place] [address] (ABNORMAL) POCT Glucose (02/05/2019 4:21 PM EDT) P athologist Signature POC Glucose 230 (H) 65 - 199 [facility] [place] mg/dL [facility] Comment: Supplemental ranges: <140 mg/dL before meals <180 mg/dL all other times of the day Specimen Anatomical Collection Method Collection Time Receive d Time (Source) Location / / Volume Laterality Blood specimen 02/05/2019 4:21 PM 019 4:21 (specimen) EDT PM EDT Trip Corona MD POINT OF CARE TEST ORDERABLE S Performing Organization Address City/State/ZIP [place] [address] (ABNORMAL) POCT Glucose (02/05/2019 2:17 PM EDT) P athologist Signature POC Glucose 245 (H) 65 - 199 [facility] Comment: Supplemental ranges: <140 mg/dL before meals <180 mg/dL all other times of the day Specimen Anatomical Collection Method Collection Time Receive d Time (Source) Location / / Volume Laterality Blood specimen 02/05/2019 2:17 PM 019 2:17 (specimen) EDT PM EDT Trip Corona MD POINT OF CARE TEST ORDERABLE S Performing Organization Address City/State/ZIP [place] [address] (ABNORMAL) POCT Glucose (02/05/2019 11:44 AM EDT) athologist Signature POC Glucose 222 (H) 65 - 199 [facility] mg/dL [facility] Comment: Supplemental ranges: <140 mg/dL before meals <180 mg/dL all other times of the day Specimen Anatomical Collection Method Collection Time Receive d Time (Source) Location / / Volume Laterality Blood specimen 02/05/2019 11:44 9 (specimen) AM EDT 11:44 AM EDT Trip Corona MD POINT OF CARE TEST ORDERABLE S Performing Organization Address City/State/ZIP [place] [address] (ABNORMAL) POCT Glucose (02/05/2019 11:05 AM EDT) athologist Signature POC Glucose 214 (H) 65 - 199 [facility] mg/dL [facility] Comment: Supplemental ranges: <140 mg/dL before meals <180 mg/dL all other times of the day Specimen Anatomical Collection Method Collection Time Receive d Time (Source) Location / / Volume Laterality Blood specimen 02/05/2019 11:05 9 (specimen) AM EDT 11:05 AM EDT Trip Corona MD POINT OF CARE TEST ORDERABLE S Performing Organization Address City/State/ZIP [place] [address] (ABNORMAL) POCT Glucose (02/05/2019 10:34 AM EDT) P athologist Signature POC Glucose 288 (H) 65 - 199 [facility] Comment: Supplemental ranges: <140 mg/dL before meals <180 mg/dL all other times of the day Specimen Anatomical Collection Method Collection Time Receive d Time (Source) Location / / Volume Laterality Blood specimen 02/05/2019 10:34 9 (specimen) AM EDT 10:34 AM EDT Trip Corona MD POINT OF CARE TEST ORDERABLE S Performing Organization Address City/State/ZIP [place] [address] (ABNORMAL) POCT Glucose (02/05/2019 10:10 AM EDT) athologist Signature POC Glucose 272 (H) 65 - 199 [facility] Comment: Supplemental ranges: <140 mg/dL before meals <180 mg/dL all other times of the day Specimen Anatomical Collection Method Collection Time Receive d Time (Source) Location / / Volume Laterality Blood specimen 02/05/2019 10:10 9 (specimen) AM EDT 10:10 AM EDT Trip Corona MD POINT OF CARE TEST ORDERABLE S Performing Organization Address City/State/ZIP [place] [address] (ABNORMAL) POCT Glucose (02/05/2019 9:10 AM EDT) athologist Signature POC Glucose 270 (H) 65 - 199 [facility] [place] mg/dL [facility] Comment: Supplemental ranges: <140 mg/dL before meals <180 mg/dL all other times of the day Specimen Anatomical Collection Method Collection Time Receive d Time (Source) Location / / Volume Laterality Blood specimen 02/05/2019 9:10 AM 019 9:10 (specimen) EDT AM EDT Trip Corona MD POINT OF CARE TEST ORDERABLE S Performing Organization Address City/State/ZIP [place] [address] (ABNORMAL) POCT Glucose (02/05/2019 8:05 AM EDT) athologist Signature POC Glucose 232 (H) 65 - 199 [place] mg/dL [facility] Comment: Supplemental ranges: <140 mg/dL before meals <180 mg/dL all other times of the day Specimen Anatomical Collection Method Collection Time Receive d Time (Source) Location / / Volume Laterality Blood specimen 02/05/2019 8:05 AM 019 8:05 (specimen) EDT AM EDT Trip Corona MD POINT OF CARE TEST ORDERABLE S Performing Organization Address City/State/ZIP Code Phon e Number [address] Potassium (02/05/2019 7:08 AM EDT) athologist Signature Potassium 4.4 3.5 - 5.[facility]L [facility] Comment: Please note: ??Patients with [...] Organization Address City/State/ZIP [place] [address] (ABNORMAL) POCT Glucose (02/05/2019 7:00 AM EDT) athologist Signature POC Glucose 214 (H) 65 - 199 [facility] Comment: Supplemental ranges: <140 mg/dL before meals <180 mg/dL all other times of the day Specimen Anatomical Collection Method Collection Time Receive d Time (Source) Location / / Volume Laterality Blood specimen 02/05/2019 7:00 AM 019 7:00 (specimen) EDT AM EDT Trip Corona MD POINT OF CARE TEST ORDERABLE S Performing Organization Address City/State/ZIP [place] [address] POCT Glucose (02/05/2019 5:06 AM EDT) athologist Signature POC Glucose 161 65 - 199 [place] mg/dL [facility] Comment: Supplemental ranges: <140 mg/dL before meals <180 mg/dL all other times of the day Specimen Anatomical Collection Method Collection Time Receive d Time (Source) Location / / Volume Laterality Blood specimen 02/05/2019 5:06 AM 019 5:06 (specimen) EDT AM EDT Trip Corona MD POINT OF CARE TEST ORDERABLE S Performing Organization Address City/State/ZIP Code Phon e Number [address] POCT Glucose (02/05/2019 4:03 AM EDT) athologist Signature POC Glucose 143 65 - 199 [place] mg/dL [facility] Comment: Supplemental ranges: <140 mg/dL before meals <180 mg/dL all other times of the day Specimen Anatomical Collection Method Collection Time Receive d Time (Source) Location / / Volume Laterality Blood specimen 02/05/2019 4:03 AM 019 4:03 (specimen) EDT AM EDT Trip Corona MD POINT OF CARE TEST ORDERABLE S Performing Organization Address City/State/ZIP [place] [address] POCT Glucose (02/05/2019 3:03 AM EDT) athologist Signature POC Glucose 134 65 - 199 [place] mg/dL [facility] Comment: Supplemental ranges: <140 mg/dL before meals <180 mg/dL all other times of the day Specimen Anatomical Collection Method Collection Time Receive d Time (Source) Location / / Volume Laterality Blood specimen 02/05/2019 3:03 AM 019 3:03 (specimen) EDT AM EDT Trip Corona MD POINT OF CARE TEST ORDERABLE S Performing Organization Address City/State/ZIP [place] [address] POCT Glucose (02/05/2019 2:04 AM EDT) athologist Signature POC Glucose 118 65 - 199 [place] mg/dL [facility] Comment: Supplemental ranges: <140 mg/dL before meals <180 mg/dL all other times of the day Specimen Anatomical Collection Method Collection Time Receive d Time (Source) Location / / Volume Laterality Blood specimen 02/05/2019 2:04 AM 019 2:04 (specimen) EDT AM EDT Trip Corona MD POINT OF CARE TEST ORDERABLE S Performing Organization Address City/State/ZIP [place] [address] POCT Glucose (02/05/2019 1:02 AM EDT) athologist Signature POC Glucose 118 65 - 199 [facility] [place] mg/dL [facility] Comment: Supplemental ranges: <140 mg/dL before meals <180 mg/dL all other times of the day Specimen Anatomical Collection Method Collection Time Receive d Time (Source) Location / / Volume Laterality Blood specimen 02/05/2019 1:02 AM 019 1:02 (specimen) EDT AM EDT Trip Corona MD POINT OF CARE TEST ORDERABLE S Performing Organization Address City/State/ZIP [place] [address] POCT Glucose (02/05/2019 12:05 AM EDT) athologist Signature POC Glucose 114 65 - 199 [facility] [place] mg/dL [facility] Comment: Supplemental ranges: <140 mg/dL before meals <180 mg/dL all other times of the day Specimen Anatomical Collection Method Collection Time Receive d Time (Source) Location / / Volume Laterality Blood specimen 02/05/2019 12:05 9 (specimen) AM EDT 12:05 AM EDT Trip Corona MD POINT OF CARE TEST ORDERABLE S Performing Organization Address City/State/ZIP [place] [address] POCT Glucose (02/04/2019 11:02 PM EDT) athologist Signature POC Glucose 121 65 - 199 [facility] [facility] mg/dL [facility] Comment: Supplemental ranges: <140 mg/dL before meals <180 mg/dL all other times of the day Specimen Anatomical Collection Method Collection Time Receive d Time (Source) Location / / Volume Laterality Blood specimen 02/04/2019 11:02 9 (specimen) PM EDT 11:02 PM EDT Trip Corona MD POINT OF CARE TEST ORDERABLE S Performing Organization Address City/State/ZIP [place] [address] POCT Glucose (02/04/2019 10:11 PM EDT) athologist Signature POC Glucose 131 65 - 199 [place] mg/dL [facility] Comment: Supplemental ranges: <140 mg/dL before meals <180 mg/dL all other times of the day Specimen Anatomical Collection Method Collection Time Receive d Time (Source) Location / / Volume Laterality Blood specimen 02/04/2019 10:11 9 (specimen) PM EDT 10:11 PM EDT Trip Corona MD POINT OF CARE TEST ORDERABLE S Performing Organization Address City/State/ZIP [place] [address] POCT Glucose (02/04/2019 9:34 PM EDT) athologist Signature POC Glucose 129 65 - 199 [place] [facility] mg/dL [facility] Comment: Supplemental ranges: <140 mg/dL before meals <180 mg/dL all other times of the day Specimen Anatomical Collection Method Collection Time Receive d Time (Source) Location / / Volume Laterality Blood specimen 02/04/2019 9:34 PM 019 9:34 (specimen) EDT PM EDT Trip Corona MD POINT OF CARE TEST ORDERABLE S Performing Organization Address City/State/[place] [address] POCT Glucose (02/04/2019 8:36 PM EDT) P athologist Signature POC Glucose 146 65 - 199 [facility] Comment: Supplemental ranges: <140 mg/dL before meals <180 mg/dL all other times of the day Specimen Anatomical Collection Method Collection Time Receive d Time (Source) Location / / Volume Laterality Blood specimen 02/04/2019 8:36 PM 019 8:36 (specimen) EDT PM EDT Trip Corona MD POINT OF CARE TEST ORDERABLE S Performing Organization Address City/State/ZIP Code Phon e Number [address] POCT Glucose (02/04/2019 7:16 PM EDT) athologist Signature POC Glucose 173 65 - 199 [facility] Comment: Supplemental ranges: <140 mg/dL before meals <180 mg/dL all other times of the day Specimen Anatomical Collection Method Collection Time Receive d Time (Source) Location / / Volume Laterality Blood specimen 02/04/2019 7:16 PM 019 7:16 (specimen) EDT PM EDT Trip Corona MD POINT OF CARE TEST ORDERABLE S Performing Organization Address City/State/ZIP [place] [address] POCT Glucose (02/04/2019 6:10 PM EDT) athologist Signature POC Glucose 146 65 - 199 [facility] [place] mg/dL [facility] Comment: Supplemental ranges: <140 mg/dL before meals <180 mg/dL all other times of the day Specimen Anatomical Collection Method Collection Time Receive d Time (Source) Location / / Volume Laterality Blood specimen 02/04/2019 6:10 PM 019 6:10 (specimen) EDT PM EDT Trip Corona MD POINT OF CARE TEST ORDERABLE S Performing Organization Address City/State/[place] [address] POCT Glucose (02/04/2019 5:14 PM EDT) athologist Signature POC Glucose 141 65 - 199 [facility] [place] mg/dL [facility] Comment: Supplemental ranges: <140 mg/dL before meals <180 mg/dL all other times of the day Specimen Anatomical Collection Method Collection Time Receive d Time (Source) Location / / Volume Laterality Blood specimen 02/04/2019 5:14 PM 019 5:14 (specimen) EDT PM EDT Trip Corona MD POINT OF CARE TEST ORDERABLE S Performing Organization Address City/State/ZIP Code Phon e Number [address] POCT Glucose (02/04/2019 4:14 PM EDT) athologist Signature POC Glucose 166 65 - 199 [facility] [place] mg/dL [facility] Comment: Supplemental ranges: <140 mg/dL before meals <180 mg/dL all other times of the day Specimen Anatomical Collection Method Collection Time Receive d Time (Source) Location / / Volume Laterality Blood specimen 02/04/2019 4:14 PM 019 4:14 (specimen) EDT PM EDT Trip Corona MD POINT OF CARE TEST ORDERABLE S Performing Organization Address City/State/[place] [address] POCT Glucose (02/04/2019 2:58 PM EDT) athologist Signature POC Glucose 180 65 - 199 [facility] [place] mg/dL [facility] Comment: Supplemental ranges: <140 mg/dL before meals <180 mg/dL all other times of the day Specimen Anatomical Collection Method Collection Time Receive d Time (Source) Location / / Volume Laterality Blood specimen 02/04/2019 2:58 PM 019 2:58 (specimen) EDT PM EDT Trip Corona MD POINT OF CARE TEST ORDERABLE S Performing Organization Address City/State/ZIP Code [place] [address] POCT Glucose (02/04/2019 1:49 PM EDT) athologist Signature POC Glucose 199 65 - 199 [place] mg/dL [facility] Comment: Supplemental ranges: <140 mg/dL before meals <180 mg/dL all other times of the day Specimen Anatomical Collection Method Collection Time Receive d Time (Source) Location / / Volume Laterality Blood specimen 02/04/2019 1:49 PM 019 1:49 (specimen) EDT PM EDT Trip Corona MD POINT OF CARE TEST ORDERABLE S Performing Organization Address City/State/ZIP [place] [address] (ABNORMAL) POCT Glucose (02/04/2019 1:05 PM EDT) athologist Signature POC Glucose 278 (H) 65 - 199 [place] mg/dL [facility] Comment: Supplemental ranges: <140 mg/dL before meals <180 mg/dL all other times of the day Specimen Anatomical Collection Method Collection Time Receive d Time (Source) Location / / Volume Laterality Blood specimen 02/04/2019 1:05 PM 019 1:05 (specimen) EDT PM EDT Trip Corona MD POINT OF CARE TEST ORDERABLE S Performing Organization Address City/State/ZIP [place] [address] (ABNORMAL) POCT Glucose (02/04/2019 12:08 PM EDT) athologist Signature POC Glucose 239 (H) 65 - 199 [place] mg/dL [facility] Comment: Supplemental ranges: <140 mg/dL before meals <180 mg/dL all other times of the day Specimen Anatomical Collection Method Collection Time Receive d Time (Source) Location / / Volume Laterality Blood specimen 02/04/2019 12:08 9 (specimen) PM EDT 12:08 PM EDT Trip Corona MD POINT OF CARE TEST ORDERABLE S Performing Organization Address City/State/ZIP [place] [address] (ABNORMAL) POCT Glucose (02/04/2019 10:50 AM EDT) P athologist Signature POC Glucose 249 (H) 65 - 199 [facility] Comment: Supplemental ranges: <140 mg/dL before meals <180 mg/dL all other times of the day Specimen Anatomical Collection Method Collection Time Receive d Time (Source) Location / / Volume Laterality Blood specimen 02/04/2019 10:50 9 (specimen) AM EDT 10:50 AM EDT Trip Corona MD POINT OF CARE TEST ORDERABLE S Performing Organization Address City/State/ZIP [place] [address] (ABNORMAL) POCT Glucose (02/04/2019 10:06 AM EDT) athologist Signature POC Glucose 279 (H) 65 - 199 [facility]/dL [facility] Comment: Supplemental ranges: <140 mg/dL before meals <180 mg/dL all other times of the day Specimen Anatomical Collection Method Collection Time Receive d Time (Source) Location / / Volume Laterality Blood specimen 02/04/2019 10:06 9 (specimen) AM EDT 10:06 AM EDT Trip Corona MD POINT OF CARE TEST ORDERABLE S Performing Organization Address City/State/ZIP [place] [address] (ABNORMAL) POCT Glucose (02/04/2019 9:09 AM EDT) P athologist Signature POC Glucose 282 (H) 65 - 199 [facility] Comment: Supplemental ranges: <140 mg/dL before meals <180 mg/dL all other times of the day Specimen Anatomical Collection Method Collection Time Receive d Time (Source) Location / / Volume Laterality Blood specimen 02/04/2019 9:09 AM 019 9:09 (specimen) EDT AM EDT Trip Corona MD POINT OF CARE TEST ORDERABLE S Performing Organization Address City/[facility]/ZIP [place] [address] Potassium (02/04/2019 9:00 AM EDT) athologist Signature Potassium 4.6 3.5 - 5.0 [facility]/L [facility] Comment: Please note: ??Patients with [...] Corona MD CHEMISTRY ORDERABLES Performing Organization Address City/[facility]/ZIP Code Phon e Number [address] POCT Glucose (02/04/2019 8:07 AM EDT) athologist Signature POC Glucose 180 65 - 199 [facility] Comment: Supplemental ranges: <140 mg/dL before meals <180 mg/dL all other times of the day Specimen Anatomical Collection Method Collection Time Receive d Time (Source) Location / / Volume Laterality Blood specimen 02/04/2019 8:07 AM 019 8:07 (specimen) EDT AM EDT Tirp Corona MD POINT OF CARE TEST ORDERABLE S Performing Organization Address City/State/ZIP [place] [address] POCT Glucose (02/04/2019 6:52 AM EDT) athologist Signature POC Glucose 186 65 - 199 [place] mg/dL [facility] Comment: Supplemental ranges: <140 mg/dL before meals <180 mg/dL all other times of the day Specimen Anatomical Collection Method Collection Time Receive d Time (Source) Location / / Volume Laterality Blood specimen 02/04/2019 6:52 AM 019 6:52 (specimen) EDT AM EDT Trip Corona MD POINT OF CARE TEST ORDERABLE S Performing Organization Address City/[facility]/ZIP [place] [address] POCT Glucose (02/04/2019 5:46 AM EDT) athologist Signature POC Glucose 165 65 - 199 [place] mg/dL [facility] Comment: Supplemental ranges: <140 mg/dL before meals <180 mg/dL all other times of the day Specimen Anatomical Collection Method Collection Time Receive d Time (Source) Location / / Volume Laterality Blood specimen 02/04/2019 5:46 AM 019 5:46 (specimen) EDT AM EDT Trip Corona MD POINT OF CARE TEST ORDERABLE S Performing Organization Address City/[facility]/ZIP [place] [address] Potassium (02/04/2019 4:35 AM EDT) athologist Signature Potassium 4.1 3.5 - 5.0 [facility]/L [facility] Comment: Please note: ??Patients with [...] Corona MD CHEMISTRY ORDERABLES Performing Organization Address City/[facility]/ZIP Code Phon e Number [address] POCT Glucose (02/04/2019 4:25 AM EDT) athologist Signature POC Glucose 157 65 - 199 [place] mg/dL [facility] Comment: Supplemental ranges: <140 mg/dL before meals <180 mg/dL all other times of the day Specimen Anatomical Collection Method Collection Time Receive d Time (Source) Location / / Volume Laterality Blood specimen 02/04/2019 4:25 AM 019 4:25 (specimen) EDT AM EDT Trip Corona MD POINT OF CARE TEST ORDERABLE S Performing Organization Address City/State/ZIP [place] [address] POCT Glucose (02/04/2019 3:27 AM EDT) athologist Signature POC Glucose 141 65 - 199 [place] mg/dL [facility] Comment: Supplemental ranges: <140 mg/dL before meals <180 mg/dL all other times of the day Specimen Anatomical Collection Method Collection Time Receive d Time (Source) Location / / Volume Laterality Blood specimen 02/04/2019 3:27 AM 019 3:27 (specimen) EDT AM EDT Trip Corona MD POINT OF CARE TEST ORDERABLE S Performing Organization Address City/State/ZIP [place] [address] POCT Glucose (02/04/2019 2:18 AM EDT) athologist Signature POC Glucose 135 65 - 199 [place] mg/dL [facility] Comment: Supplemental ranges: <140 mg/dL before meals <180 mg/dL all other times of the day Specimen Anatomical Collection Method Collection Time Receive d Time (Source) Location / / Volume Laterality Blood specimen 02/04/2019 2:18 AM 019 2:18 (specimen) EDT AM EDT Trip Corona MD POINT OF CARE TEST ORDERABLE S Performing Organization Address City/State/ZIP [place] [address] POCT Glucose (02/04/2019 1:03 AM EDT) athologist Signature POC Glucose 117 65 - 199 [place] mg/dL [facility] Comment: Supplemental ranges: <140 mg/dL before meals <180 mg/dL all other times of the day Specimen Anatomical Collection Method Collection Time Receive d Time (Source) Location / / Volume Laterality Blood specimen 02/04/2019 1:03 AM 019 1:03 (specimen) EDT AM EDT Trip Corona MD POINT OF CARE TEST ORDERABLE S Performing Organization Address City/State/ZIP Code Phon e Number [address] POCT Glucose (02/04/2019 12:15 AM EDT) athologist Signature POC Glucose 137 65 - 199 [place] mg/dL [facility] Comment: Supplemental ranges: <140 mg/dL before meals <180 mg/dL all other times of the day Specimen Anatomical Collection Method Collection Time Receive d Time (Source) Location / / Volume Laterality Blood specimen 02/04/2019 12:15 9 (specimen) AM EDT 12:15 AM EDT Trip Corona MD POINT OF CARE TEST ORDERABLE S Performing Organization Address City/State/ZIP [place] [address] POCT Glucose (02/03/2019 11:12 PM EDT) athologist Signature POC Glucose 164 65 - 199 [place] mg/dL [facility] Comment: Supplemental ranges: <140 mg/dL before meals <180 mg/dL all other times of the day Specimen Anatomical Collection Method Collection Time Receive d Time (Source) Location / / Volume Laterality Blood specimen 02/03/2019 11:12 9 (specimen) PM EDT 11:12 PM EDT Trip Corona MD POINT OF CARE TEST ORDERABLE S Performing Organization Address City/State/ZIP Code Phon e Number [address] POCT Glucose (02/03/2019 8:06 PM EDT) athologist Signature POC Glucose 163 65 - 199 [facility] mg/dL [facility] Comment: Supplemental ranges: <140 mg/dL before meals <180 mg/dL all other times of the day Specimen Anatomical Collection Method Collection Time Receive d Time (Source) Location / / Volume Laterality Blood specimen 02/03/2019 8:06 PM 019 8:06 (specimen) EDT PM EDT Trip Corona MD POINT OF CARE TEST ORDERABLE S Performing Organization Address City/State/ZIP [place] [address] POCT Glucose (02/03/2019 6:22 PM EDT) athologist Signature POC Glucose 175 65 - 199 [place] mg/dL [facility] Comment: Supplemental ranges: <140 mg/dL before meals <180 mg/dL all other times of the day Specimen Anatomical Collection Method Collection Time Receive d Time (Source) Location / / Volume Laterality Blood specimen 02/03/2019 6:22 PM 019 6:22 (specimen) EDT PM EDT Trip Corona MD POINT OF CARE TEST ORDERABLE S Performing Organization Address City/State/ZIP [place] [address] POCT Glucose (02/03/2019 5:26 PM EDT) athologist Signature POC Glucose 158 65 - 199 [place] mg/dL [facility] Comment: Supplemental ranges: <140 mg/dL before meals <180 mg/dL all other times of the day Specimen Anatomical Collection Method Collection Time Receive d Time (Source) Location / / Volume Laterality Blood specimen 02/03/2019 5:26 PM 019 5:26 (specimen) EDT PM EDT Trip Corona MD POINT OF CARE TEST ORDERABLE S Performing Organization Address City/State/ZIP [place] [address] POCT Glucose (02/03/2019 4:01 PM EDT) athologist Signature POC Glucose 187 65 - 199 [place] mg/dL [facility] Comment: Supplemental ranges: <140 mg/dL before meals <180 mg/dL all other times of the day Specimen Anatomical Collection Method Collection Time Receive d Time (Source) Location / / Volume Laterality Blood specimen 02/03/2019 4:01 PM 019 4:01 (specimen) EDT PM EDT Trip Corona MD POINT OF CARE TEST ORDERABLE S Performing Organization Address City/State/ZIP Code Phon [place] [address] (ABNORMAL) POCT Glucose (02/03/2019 3:04 PM EDT) P athologist Signature POC Glucose 223 (H) 65 - 199 [place] mg/dL [facility] Comment: Supplemental ranges: <140 mg/dL before meals <180 mg/dL all other times of the day Specimen Anatomical Collection Method Collection Time Receive d Time (Source) Location / / Volume Laterality Blood specimen 02/03/2019 3:04 PM 019 3:04 (specimen) EDT PM EDT Trip Corona MD POINT OF CARE TEST ORDERABLE S Performing Organization Address City/State/ZIP [place] [address] (ABNORMAL) POCT Glucose (02/03/2019 2:01 PM EDT) P athologist Signature POC Glucose 230 (H) 65 - 199 [place] mg/dL [facility] Comment: Supplemental ranges: <140 mg/dL before meals <180 mg/dL all other times of the day Specimen Anatomical Collection Method Collection Time Receive d Time (Source) Location / / Volume Laterality Blood specimen 02/03/2019 2:01 PM 019 2:01 (specimen) EDT PM EDT Trip Corona MD POINT OF CARE TEST ORDERABLE S Performing Organization Address City/State/ZIP [place] [address] (ABNORMAL) POCT Glucose (02/03/2019 1:03 PM EDT) P athologist Signature POC Glucose 248 (H) 65 - 199 [place] mg/dL [facility] Comment: Supplemental ranges: <140 mg/dL before meals <180 mg/dL all other times of the day Specimen Anatomical Collection Method Collection Time Receive d Time (Source) Location / / Volume Laterality Blood specimen 02/03/2019 1:03 PM 019 1:03 (specimen) EDT PM EDT Trip Corona MD POINT OF CARE TEST ORDERABLE S Performing Organization Address City/State/ZIP [place] [address] (ABNORMAL) POCT Glucose (02/03/2019 12:31 PM EDT) P athologist Signature POC Glucose 260 (H) 65 - 199 [facility] [place] mg/dL [facility] Comment: Supplemental ranges: <140 mg/dL before meals <180 mg/dL all other times of the day Specimen Anatomical Collection Method Collection Time Receive d Time (Source) Location / / Volume Laterality Blood specimen 02/03/2019 12:31 9 (specimen) PM EDT 12:31 PM EDT Trip Corona MD POINT OF CARE TEST ORDERABLE S Performing Organization Address City/State/ZIP [place] [address] (ABNORMAL) POCT Glucose (02/03/2019 12:03 PM EDT) P athologist Signature POC Glucose 252 (H) 65 - 199 [place] mg/dL [facility] Comment: Supplemental ranges: <140 mg/dL before meals <180 mg/dL all other times of the day Specimen Anatomical Collection Method Collection Time Receive d Time (Source) Location / / Volume Laterality Blood specimen 02/03/2019 12:03 9 (specimen) PM EDT 12:03 PM EDT Trip Corona MD POINT OF CARE TEST ORDERABLE S Performing Organization Address City/State/ZIP [place] [address] (ABNORMAL) POCT Glucose (02/03/2019 11:27 AM EDT) P athologist Signature POC Glucose 260 (H) 65 - 199 [facility] [place] mg/dL [facility] Comment: Supplemental ranges: <140 mg/dL before meals <180 mg/dL all other times of the day Specimen Anatomical Collection Method Collection Time Receive d Time (Source) Location / / Volume Laterality Blood specimen 02/03/2019 11:27 201 9 (specimen) AM EDT 11:27 AM EDT Trip Corona MD POINT OF CARE TEST ORDERABLE S Performing Organization Address City/[facility]/ZIP [place] [address] (ABNORMAL) POCT Glucose (02/03/2019 9:59 AM EDT) P athologist Signature POC Glucose 227 (H) 65 - [facility] Comment: Supplemental ranges: <140 mg/dL before meals <180 mg/dL all other times of the day Specimen Anatomical Collection Method Collection Time Receive d Time (Source) Location / / Volume Laterality Blood specimen 02/03/2019 9:59 AM 019 9:59 (specimen) EDT AM EDT Trip Corona MD POINT OF CARE TEST ORDERABLE S Performing Organization Address City/[facility]/ZIP [place] [address] Potassium (02/03/2019 9:28 AM EDT) P athologist Signature Potassium 4.6 3.5 - 5.0 [facility] mmol/L [facility] Comment: Please note: ??Patients with [...] Corona MD CHEMISTRY ORDERABLES Performing Organization Address City/[facility]/ZIP [place] [address] POCT Glucose (02/03/2019 8:57 AM EDT) P athologist Signature POC Glucose 195 65 - 199 [place] mg/dL [facility] Comment: Supplemental ranges: <140 mg/dL before meals <180 mg/dL all other times of the day Specimen Anatomical Collection Method Collection Time Receive d Time (Source) Location / / Volume Laterality Blood specimen 02/03/2019 8:57 AM 019 8:57 (specimen) EDT AM EDT Trip Corona MD POINT OF CARE TEST ORDERABLE S Performing Organization Address City/State/ZIP Code Phon e Number [place] [phone] [facility] [address] Drive XR Chest PA & [...] number below. Electronically signed by: Alexander Garcia [facility] ([phone]), at 02/03/2019 1:51 PM Trip Corona MD IMG DX ORDERABLES POCT Glucose (02/03/2019 7:45 AM EDT) athologist Signature POC Glucose 177 65 - [facility] Comment: Supplemental ranges: <140 mg/dL before meals <180 mg/dL all other times of the day Specimen Anatomical Collection Method Collection Time Receive d Time (Source) Location / / Volume Laterality Blood specimen 02/03/2019 7:45 AM 019 7:45 (specimen) EDT AM EDT Trip Corona MD POINT OF CARE TEST ORDERABLE S Performing Organization Address City/[facility]/ZIP [place] [address] POCT Glucose (02/03/2019 6:47 AM EDT) athologist Signature POC Glucose 181 65 - 199 [facility] Comment: Supplemental ranges: <140 mg/dL before meals <180 mg/dL all other times of the day Specimen Anatomical Collection Method Collection Time Receive d Time (Source) Location / / Volume Laterality Blood specimen 02/03/2019 6:47 AM 019 6:47 (specimen) EDT AM EDT Trip Corona MD POINT OF CARE TEST ORDERABLE S Performing Organization Address City/State/[place] [address] POCT Glucose (02/03/2019 5:44 AM EDT) P athologist Signature POC Glucose 169 65 - 199 [place] mg/dL [facility] Comment: Supplemental ranges: <140 mg/dL before meals <180 mg/dL all other times of the day Specimen Anatomical Collection Method Collection Time Receive d Time (Source) Location / / Volume Laterality Blood specimen 02/03/2019 5:44 AM 019 5:44 (specimen) EDT AM EDT Trip Corona MD POINT OF CARE TEST ORDERABLE S Performing Organization Address City/State/[place] [address] POCT Glucose (02/03/2019 4:48 AM EDT) athologist Signature POC Glucose 185 65 - 199 [facility] [place] mg/dL [facility] Comment: Supplemental ranges: <140 mg/dL before meals <180 mg/dL all other times of the day Specimen Anatomical Collection Method Collection Time Receive d Time (Source) Location / / Volume Laterality Blood specimen 02/03/2019 4:48 AM 019 4:48 (specimen) EDT AM EDT Trip Corona MD POINT OF CARE TEST ORDERABLE S Performing Organization Address City/State/[place] [address] POCT Glucose (02/03/2019 3:29 AM EDT) athologist Signature POC Glucose 158 65 - 199 [place] mg/dL [facility] Comment: Supplemental ranges: <140 mg/dL before meals <180 mg/dL all other times of the day Specimen Anatomical Collection Method Collection Time Receive d Time (Source) Location / / Volume Laterality Blood specimen 02/03/2019 3:29 AM 019 3:29 (specimen) EDT AM EDT Trip Corona MD POINT OF CARE TEST ORDERABLE S Performing Organization Address City/State/ZIP Code [place] [address] POCT Glucose (02/03/2019 2:28 AM EDT) P athologist Signature POC Glucose 139 65 - 199 [facility] mg/dL [facility] Comment: Supplemental ranges: <140 mg/dL before meals <180 mg/dL all other times of the day Specimen Anatomical Collection Method Collection Time Receive d Time (Source) Location / / Volume Laterality Blood specimen 02/03/2019 2:28 AM 019 2:28 (specimen) EDT AM EDT Trip Corona MD POINT OF CARE TEST ORDERABLE S Performing Organization Address City/State/ZIP Code Phon e Number [address] (ABNORMAL) Differential, Automated (02/03/2019 2:27 AM EDT) Patholo gist Method Time Signature Neutrophils % 69.3 % [facility] Neutr Abs (ANC) 12.62 (H) 1.70 - [facility] 6.10 [facility] x10(3)/[facility] LABORATORY Lymphocytes % 20.0 % [facility] Lymphocytes Abs 3.6 (H) 0.9 - 3.2 [facility] x10(3)/[facility] LABORATORY Monocytes % 9.6 % [facility] Monocyte Abs 1.8 (H) 0.3 - 0.9 [facility] x10(3)/[facility] LABORATORY Eosinophils % 0.4 % [facility] Eosinophils Abs 0.1 0.0 - 0.4 [facility] x10(3)/[facility] LABORATORY Basophils % 0.3 % [facility] Basophils Abs 0.0 0.0 - 0.1 [facility] x10(3)/[facility] LABORATORY Immature Gran % 0.40 % [facility] Comment: Immature granulocytes(IG's)percentage an d absolute count will include metamyelocytes, myelocytes, and promyelo cytes. Blood smears from CBCs yielding IG's will be scanned manually for concor dance. If this scan disagrees with the automated IG or if promyelocytes are not ed, a manual differential will be performed. Corinne Gran Abs 0.08 (H) 0.00 - 0.04 x10(3)/[facility] LABORATORY Specimen Anatomical Collection Method Collection Time Receive d Time (Source) Location / / Volume Laterality Blood specimen 02/03/2019 2:27 AM 019 3:12 (specimen) EDT AM EDT Resulting Agency Comment Spec In Lab [place] [facility] HEMATOLOGY ORDERABLES Performing Organization Address City/State/[place] [address] (ABNORMAL) Hemogram (02/03/2019 2:27 AM EDT) P athologist Signature WBC 18.2 (H) 4.0 - 9.5 [facility] x10(3)/[facility] LABORATORY RBC 3.24 (L) 4.58 - [facility] 5.54 [facility] x10(6)/[facility] LABORATORY Hemoglobin 9.7 (L) 13.7 - [facility] 16.5 gm/dL [facility] Comment: This result has been called to DAVID DODD by SHANIQUA MAXWELL on 02 03 2019 at 0357, and has been read back. Hematocrit 29.3 (L) 40.5 - 48.5 % [facility] MCV 90.4 82.9 - 93.1 fL [facility] MCH 29.9 27.5 - 32.1 pg [facility] MCHC 33.1 32.0 - 35.7 gm/dL [facility] LABORATORY Platelets 170 145 - 357 x10(3)/[facility] LABORATORY RDWSD 46.8 (H) 36.0 - 45.0 fL [facility] RDWCV 14.0 (H) 11.4 - 13.8 % [facility] LABORATORY MPV 11.1 7.6 - 12.9 fL [facility] nRBC % Auto 0.0 % [facility] LABORATORY nRBC Abs Auto 0.000 0.000 - 0.000 x10(3)/mcL M [facility] LABORATORY Specimen Anatomical Collection Method Collection Time Receive d Time (Source) Location / / Volume Laterality Blood specimen 02/03/2019 2:27 AM 019 3:12 (specimen) EDT AM EDT Resulting Agency Comment Spec In [facility] [place] [facility] HEMATOLOGY ORDERABLES Performing Organization Address City/State/[place] [address] (ABNORMAL) Basic Metabolic Panel (non-fasting) (02/03/2019 2:27 AM EDT) athologist Signature Glucose Lvl 152 65 - 199 [facility] mg/dL [facility] Comment: Diabetes: >=200 mg/dL plus symp toms BUN 25 (H) 10 - 20 mg/dL [facility] Creatinine 0.88 0.80 - 1.50 mg/dL [facility] LABORATORY Sodium 135 135 - 145 mmol/L [facility]ORY Potassium 4.3 3.5 - 5.0 mmol/L [facility] Comment: Please note: ??Patients with WBC >100,00 0 may have falsely elevated Potassium levels. ??For accurate Potassium quantif ication in these patients send serum separator tube (gold top) for subsequent determinations. ??Contact the Clinical Chemistry Laboratory if there are any qu estions. Chloride 100 98 - 107 mmol/L [facility] CO2 23 22 - 31 mmol/L [facility] Comment: result rechecked-kb Anion Gap 12 5 - 15 mmol/L [facility] Calcium 7.9 (L) 8.5 - 10.5 mg/dL [facility] Estimated GFR 90 >=60 mL/min/1.73 m?? [facility] Comment: The eGFR was calculated using the CKD-EP I equation. As with all creatinine based estimates of kidney function, eGFR values calculated with the CKD-EPI equation are not accurate in patients wi th acute kidney failure, extremes of body mass or the acutely ill. [email or web address] eGFR 104 >=60 mL/min/1.73 m?? [facility] Comment: The eGFR was calculated using the CKD-EP I equation. As with all creatinine based estimates of kidney function, eGFR values calculated with the CKD-EPI equation are not accurate in patients wi th acute kidney failure, extremes of body mass or the acutely ill. [email or web address] – TULSAnkf Specimen Anatomical Collection Method Collection Time Receive d Time (Source) Location / / Volume Laterality Blood specimen 02/03/2019 2:27 AM 019 3:12 (specimen) EDT AM EDT Resulting Agency Comment Spec In Lab Trip Corona MD CHEMISTRY ORDERABLES Performing Organization Address [facility] [place] [address] EKG 12 Lead (02/03/2019 1:33 AM EDT) Component Value Ref Range Test Analysis Performed Pathologis t Method Time At Signature Ventricular rate 144 BPM MUSE SYSTEM Atrial Rate 120 BPM MUSE SYSTEM QRS Duration 116 ms MUSE SYSTEM Q-T Interval 314 ms MUSE SYSTEM QTC Calculated 486 ms MUSE SYSTEM (Bezet) Calculated R [place] -69 degrees MUSE SYSTEM Calculated T [place] 112 degrees MUSE SYSTEM INTERPRETATION Atrial fibrillation with rapid ventricular response MUSE SYSTEM Left axis deviation Anterolateral infarct (cited on or before 21-JUL-2018) Abnormal ECG When compared with ECG of 31-JAN-2019 20:20, Atrial fibrillation has replaced Sinus rhythm Confirmed by MD Barry, Onofre Jung ([id number]) on 02/03/2019 10:47: 22 AM Specimen Anatomical Collection Method Collection Time Receive d Time (Source) Location / / Volume Laterality 02/03/2019 1:33 AM 9 EDT 10:47 AM EDT Trip Corona MD ECG ORDERABLES Performing Organization Address City/[facility] Phon e Number MUSE SYSTEM POCT Glucose (02/03/2019 1:30 AM EDT) P athologist Signature POC Glucose 143 65 - 199 [facility] mg/dL [facility] Comment: Supplemental ranges: <140 mg/dL before meals <180 mg/dL all other times of the day Specimen Anatomical Collection Method Collection Time Receive d Time (Source) Location / / Volume Laterality Blood specimen 02/03/2019 1:30 AM 019 1:30 (specimen) EDT AM EDT Trip Corona MD POINT OF CARE TEST ORDERABLE S Performing Organization Address City/State/ZIP [place] [address] POCT Glucose (02/03/2019 12:31 AM EDT) athologist Signature POC Glucose 130 65 - 199 [place] mg/dL [facility] Comment: Supplemental ranges: <140 mg/dL before meals <180 mg/dL all other times of the day Specimen Anatomical Collection Method Collection Time Receive d Time (Source) Location / / Volume Laterality Blood specimen 02/03/2019 12:31 9 (specimen) AM EDT 12:31 AM EDT Trip Corona MD POINT OF CARE TEST ORDERABLE S Performing Organization Address City/State/ZIP Code Phon e Number [address] POCT Glucose (02/02/2019 11:30 PM EDT) athologist Signature POC Glucose 129 65 - 199 [place] mg/dL [facility] Comment: Supplemental ranges: <140 mg/dL before meals <180 mg/dL all other times of the day Specimen Anatomical Collection Method Collection Time Receive d Time (Source) Location / / Volume Laterality Blood specimen 02/02/2019 11:30 9 (specimen) PM EDT 11:30 PM EDT Trip Corona MD POINT OF CARE TEST ORDERABLE S Performing Organization Address City/State/ZIP Code Phon e Number [address] POCT Glucose (02/02/2019 10:35 PM EDT) athologist Signature POC Glucose 150 65 - 199 [place] mg/dL [facility] Comment: Supplemental ranges: <140 mg/dL before meals <180 mg/dL all other times of the day Specimen Anatomical Collection Method Collection Time Receive d Time (Source) Location / / Volume Laterality Blood specimen 02/02/2019 10:35 9 (specimen) PM EDT 10:35 PM EDT Trip Corona MD POINT OF CARE TEST ORDERABLE S Performing Organization Address City/State/ZIP [place] [address] POCT Glucose (02/02/2019 9:24 PM EDT) athologist Signature POC Glucose 158 65 - 199 [place] mg/dL [facility] Comment: Supplemental ranges: <140 mg/dL before meals <180 mg/dL all other times of the day Specimen Anatomical Collection Method Collection Time Receive d Time (Source) Location / / Volume Laterality Blood specimen 02/02/2019 9:24 PM 019 9:24 (specimen) EDT PM EDT Trip Corona MD POINT OF CARE TEST ORDERABLE S Performing Organization Address City/State/ZIP [place] [address] POCT Glucose (02/02/2019 8:24 PM EDT) athologist Signature POC Glucose 181 65 - 199 [place] mg/dL [facility] Comment: Supplemental ranges: <140 mg/dL before meals <180 mg/dL all other times of the day Specimen Anatomical Collection Method Collection Time Receive d Time (Source) Location / / Volume Laterality Blood specimen 02/02/2019 8:24 PM 019 8:24 (specimen) EDT PM EDT Trip Corona MD POINT OF CARE TEST ORDERABLE S Performing Organization Address City/State/ZIP [place] [address] (ABNORMAL) POCT Glucose (02/02/2019 6:52 PM EDT) athologist Signature POC Glucose 218 (H) 65 - 199 [place] mg/dL [facility] Comment: Supplemental ranges: <140 mg/dL before meals <180 mg/dL all other times of the day Specimen Anatomical Collection Method Collection Time Receive d Time (Source) Location / / Volume Laterality Blood specimen 02/02/2019 6:52 PM 019 6:52 (specimen) EDT PM EDT Trip Corona MD POINT OF CARE TEST ORDERABLE S Performing Organization Address City/State/ZIP [place] [address] (ABNORMAL) POCT Glucose (02/02/2019 5:46 PM EDT) P athologist Signature POC Glucose 217 (H) 65 - 199 [place] mg/dL [facility] Comment: Supplemental ranges: <140 mg/dL before meals <180 mg/dL all other times of the day Specimen Anatomical Collection Method Collection Time Receive d Time (Source) Location / / Volume Laterality Blood specimen 02/02/2019 5:46 PM 019 5:46 (specimen) EDT PM EDT Trip Corona MD POINT OF CARE TEST ORDERABLE S Performing Organization Address City/State/ZIP [place] [address] POCT Glucose (02/02/2019 4:48 PM EDT) P athologist Signature POC Glucose 187 65 - 199 [place] mg/dL [facility] Comment: Supplemental ranges: <140 mg/dL before meals <180 mg/dL all other times of the day Specimen Anatomical Collection Method Collection Time Receive d Time (Source) Location / / Volume Laterality Blood specimen 02/02/2019 4:48 PM 019 4:48 (specimen) EDT PM EDT Trip Corona MD POINT OF CARE TEST ORDERABLE S Performing Organization Address City/State/ZIP [place] [address] (ABNORMAL) POCT Glucose (02/02/2019 3:49 PM EDT) P athologist Signature POC Glucose 222 (H) 65 - 199 [place] mg/dL [facility] Comment: Supplemental ranges: <140 mg/dL before meals <180 mg/dL all other times of the day Specimen Anatomical Collection Method Collection Time Receive d Time (Source) Location / / Volume Laterality Blood specimen 02/02/2019 3:49 PM 019 3:49 (specimen) EDT PM EDT Trip Corona MD POINT OF CARE TEST ORDERABLE S Performing Organization Address City/State/ZIP [place] [address] (ABNORMAL) POCT Glucose (02/02/2019 2:51 PM EDT) athologist Signature POC Glucose 232 (H) 65 - 199 [place] mg/dL [facility] Comment: Supplemental ranges: <140 mg/dL before meals <180 mg/dL all other times of the day Specimen Anatomical Collection Method Collection Time Receive d Time (Source) Location / / Volume Laterality Blood specimen 02/02/2019 2:51 PM 019 2:51 (specimen) EDT PM EDT Trip Corona MD POINT OF CARE TEST ORDERABLE S Performing Organization Address City/State/ZIP [place] [address] (ABNORMAL) POCT Glucose (02/02/2019 2:07 PM EDT) athologist Signature POC Glucose 263 (H) 65 - 199 [place] mg/dL [facility] Comment: Supplemental ranges: <140 mg/dL before meals <180 mg/dL all other times of the day Specimen Anatomical Collection Method Collection Time Receive d Time (Source) Location / / Volume Laterality Blood specimen 02/02/2019 2:07 PM 019 2:07 (specimen) EDT PM EDT Trip Corona MD POINT OF CARE TEST ORDERABLE S Performing Organization Address City/State/ZIP [place] [address] (ABNORMAL) POCT Glucose (02/02/2019 1:01 PM EDT) athologist Signature POC Glucose 226 (H) 65 - 199 [place] mg/dL [facility] Comment: Supplemental ranges: <140 mg/dL before meals <180 mg/dL all other times of the day Specimen Anatomical Collection Method Collection Time Receive d Time (Source) Location / / Volume Laterality Blood specimen 02/02/2019 1:01 PM 019 1:01 (specimen) EDT PM EDT Trip Corona MD POINT OF CARE TEST ORDERABLE S Performing Organization Address City/State/ZIP [place] [address] POCT Glucose (02/02/2019 12:15 PM EDT) P athologist Signature POC Glucose 182 65 - 199 [facility] mg/dL [facility] Comment: Supplemental ranges: <140 mg/dL before meals <180 mg/dL all other times of the day Specimen Anatomical Collection Method Collection Time Receive d Time (Source) Location / / Volume Laterality Blood specimen 02/02/2019 12:15 9 (specimen) PM EDT 12:15 PM EDT Trip Corona MD POINT OF CARE TEST ORDERABLE S Performing Organization Address City/State/ZIP [place] [address] (ABNORMAL) Urinalysis Microscopic Exam (02/02/2019 11:49 AM EDT) P athologist Signature RBC UA 30 (H) 0 - 3 /HPF [facility] WBC UA 3 0 - 3 /HPF [facility] Hyaline Cast 3 (H) 0 - 2 /LPF [facility] LABORATORY Specimen (Source) Anatomical Collection Method Collection Time Re ceived Time Location / / Volume Laterality Urine specimen 02/02/2019 11:49 9 obtained via AM EDT 12:01 PM EDT indwelling urinary catheter (specimen) Resulting Agency Comment Spec In Lab [place] [facility] URINE ORDERABLES Performing Organization Address City/State/ZIP [place] [address] (ABNORMAL) Urinalysis with reflex Culture (02/02/2019 11:49 AM EDT) [facility] Method Time Signature Glucose UA Negative Negative [facility]dL [facility] Protein UA Negative Negative [facility] mg/dL [facility] Bilirubin UA Negative Negative [facility] mg/dL [facility] Comment: Clinical correlation required for positi ve Urine Bilirubin results as false positive may occur with some drugs and d rug related products. If a false positive is suspected a serum total bili steel should be considered if clinically indicated. Urobilinogen UA Normal Normal mg/dL [facility] pH UA 5.0 5.0 - 8.0 [facility] Blood UA Moderate (A) Negative mg/dL [facility] Ketones UA Negative Negative mg/dL [facility] Nitrite UA Negative Negative [facility] Leukocytes UA Negative Negative [facility] LABORATORY Appearance UA Clear Clear [facility] Spec [place] UA 1.019 1.002 - 1.030 [facility] Color UA Yellow Yellow [facility] Culture Reflexed No [facility] Specimen (Source) Anatomical Collection Method Collection Time Re ceived Time Location / / Volume Laterality Urine specimen 02/02/2019 11:49 9 obtained via AM EDT 12:01 PM EDT indwelling urinary catheter (specimen) Resulting Agency Comment Spec In Lab Trip Corona MD URINE ORDERABLES Performing Organization Address City/[facility]/[place] [address] Blood culture (02/02/2019 10:05 AM EDT) [facility] Method Time Signature Blood Culture No growth [facility] at 5 days. [facility] Specimen Anatomical Collection Method Collection Time Receive d Time (Source) Location / / Volume Laterality Blood specimen 02/02/2019 10:05 9 (specimen) AM EDT 10:27 AM EDT Resulting Agency Comment Spec In Lab Trip Corona MD MICROBIOLOGY - BLOOD ORDERAB LES Performing Organization Address City/[facility]/ZIP [place] [address] (ABNORMAL) POCT Glucose (02/02/2019 10:00 AM EDT) athologist Signature POC Glucose 209 (H) 65 - 199 [facility] mg/dL [facility] Comment: Supplemental ranges: <140 mg/dL before meals <180 mg/dL all other times of the day Specimen Anatomical Collection Method Collection Time Receive d Time (Source) Location / / Volume Laterality Blood specimen 02/02/2019 10:00 9 (specimen) AM EDT 10:00 AM EDT Trip Corona MD POINT OF CARE TEST ORDERABLE S Performing Organization Address City/State/ZIP [place] [address] POCT Glucose (02/02/2019 7:40 AM EDT) athologist Signature POC Glucose 154 65 - 199 [facility] [place] mg/dL [facility] Comment: Supplemental ranges: <140 mg/dL before meals <180 mg/dL all other times of the day Specimen Anatomical Collection Method Collection Time Receive d Time (Source) Location / / Volume Laterality Blood specimen 02/02/2019 7:40 AM 019 7:40 (specimen) EDT AM EDT Trip Corona MD POINT OF CARE TEST ORDERABLE S Performing Organization Address City/State/ZIP [place] [address] POCT Glucose (02/02/2019 6:33 AM EDT) athologist Signature POC Glucose 158 65 - 199 [facility] mg/dL [facility] Comment: Supplemental ranges: <140 mg/dL before meals <180 mg/dL all other times of the day Specimen Anatomical Collection Method Collection Time Receive d Time (Source) Location / / Volume Laterality Blood specimen 02/02/2019 6:33 AM 019 6:33 (specimen) EDT AM EDT Trip Corona MD POINT OF CARE TEST ORDERABLE S Performing Organization Address City/State/ZIP Code Phon e Number [place] [id number] [facility] [address] POCT Glucose (02/02/2019 4:23 AM EDT) athologist Signature POC Glucose 157 65 - [address] [facility]dL [facility] Comment: Supplemental ranges: <140 mg/dL before meals <180 mg/dL all other times of the day Specimen Anatomical Collection Method Collection Time Receive d Time (Source) Location / / Volume Laterality Blood specimen 02/02/2019 4:23 AM 019 4:23 (specimen) EDT AM EDT Trip Corona MD POINT OF CARE TEST ORDERABLE S Performing Organization Address City/State/ZIP [place] [address] Potassium (02/02/2019 4:15 AM EDT) athologist Signature Potassium 4.8 3.5 - 5.0 [facility] mmol/L [facility] Comment: Please note: ??Patients with [...] Organization Address City/State/ZIP Code Phon e Number [place], [place] [id number] [place] [address] POCT Glucose (02/02/2019 2:13 AM EDT) athologist Signature POC Glucose 141 65 - [address] [facility]dL [facility] Comment: Supplemental ranges: <140 mg/dL before meals <180 mg/dL all other times of the day Specimen Anatomical Collection Method Collection Time Receive d Time (Source) Location / / Volume Laterality Blood specimen 02/02/2019 2:13 AM 019 2:13 (specimen) EDT AM EDT Trip Corona MD POINT OF CARE TEST ORDERABLE S Performing Organization Address City/State/ZIP Code Phon e Number [address] POCT Glucose (02/02/2019 1:00 AM EDT) P athologist Signature POC Glucose 146 65 - 199 [facility] [place] mg/dL [facility] Comment: Supplemental ranges: <140 mg/dL before meals <180 mg/dL all other times of the day Specimen Anatomical Collection Method Collection Time Receive d Time (Source) Location / / Volume Laterality Blood specimen 02/02/2019 1:00 AM 019 1:00 (specimen) EDT AM EDT Trip Corona MD POINT OF CARE TEST ORDERABLE S Performing Organization Address City/State/ZIP Code Phon e Number [address] POCT Glucose (02/02/2019 12:08 AM EDT) P athologist Signature POC Glucose 148 65 - 199 [facility] [place] mg/dL [facility] Comment: Supplemental ranges: <140 mg/dL before meals <180 mg/dL all other times of the day Specimen Anatomical Collection Method Collection Time Receive d Time (Source) Location / / Volume Laterality Blood specimen 02/02/2019 12:08 9 (specimen) AM EDT 12:08 AM EDT Trip Corona MD POINT OF CARE TEST ORDERABLE S Performing Organization Address City/State/ZIP Code Phon e Number [address] POCT Glucose (02/01/2019 11:03 PM EDT) P athologist Signature POC Glucose 169 65 - 199 [facility] [place] mg/dL [facility] Comment: Supplemental ranges: <140 mg/dL before meals <180 mg/dL all other times of the day Specimen Anatomical Collection Method Collection Time Receive d Time (Source) Location / / Volume Laterality Blood specimen 02/01/2019 11:03 9 (specimen) PM EDT 11:03 PM EDT Trip Corona MD POINT OF CARE TEST ORDERABLE S Performing Organization Address City/State/ZIP [place] [address] POCT Glucose (02/01/2019 10:25 PM EDT) athologist Signature POC Glucose 165 65 - 199 [facility] [place] mg/dL [facility] Comment: Supplemental ranges: <140 mg/dL before meals <180 mg/dL all other times of the day Specimen Anatomical Collection Method Collection Time Receive d Time (Source) Location / / Volume Laterality Blood specimen 02/01/2019 10:25 9 (specimen) PM EDT 10:25 PM EDT Trip Corona MD POINT OF CARE TEST ORDERABLE S Performing Organization Address City/State/ZIP [place] [address] POCT Glucose (02/01/2019 9:06 PM EDT) athologist Signature POC Glucose 182 65 - 199 [facility] [place] mg/dL [facility] Comment: Supplemental ranges: <140 mg/dL before meals <180 mg/dL all other times of the day Specimen Anatomical Collection Method Collection Time Receive d Time (Source) Location / / Volume Laterality Blood specimen 02/01/2019 9:06 PM 019 9:06 (specimen) EDT PM EDT Trip Corona MD POINT OF CARE TEST ORDERABLE S Performing Organization Address City/State/ZIP [place] [address] (ABNORMAL) POCT Glucose (02/01/2019 7:26 PM EDT) athologist Signature POC Glucose 202 (H) 65 - 199 [facility] [place] mg/dL [facility] Comment: Supplemental ranges: <140 mg/dL before meals <180 mg/dL all other times of the day Specimen Anatomical Collection Method Collection Time Receive d Time (Source) Location / / Volume Laterality Blood specimen 02/01/2019 7:26 PM 019 7:26 (specimen) EDT PM EDT Trip Corona MD POINT OF CARE TEST ORDERABLE S Performing Organization Address City/State/ZIP [place] [address] (ABNORMAL) POCT Glucose (02/01/2019 6:12 PM EDT) P athologist Signature POC Glucose 228 (H) 65 - 199 [facility] mg/dL [facility] Comment: Supplemental ranges: <140 mg/dL before meals <180 mg/dL all other times of the day Specimen Anatomical Collection Method Collection Time Receive d Time (Source) Location / / Volume Laterality Blood specimen 02/01/2019 6:12 PM 019 6:12 (specimen) EDT PM EDT Trip Corona MD POINT OF CARE TEST ORDERABLE S Performing Organization Address City/[facility]/ZIP [place] [address] POCT Glucose (02/01/2019 4:42 PM EDT) athologist Signature POC Glucose 177 65 - 199 [place] [place] mg/dL [facility] Comment: Supplemental ranges: <140 mg/dL before meals <180 mg/dL all other times of the day Specimen Anatomical Collection Method Collection Time Receive d Time (Source) Location / / Volume Laterality Blood specimen 02/01/2019 4:42 PM 019 4:42 (specimen) EDT PM EDT Trip Corona MD POINT OF CARE TEST ORDERABLE S Performing Organization Address City/State/ZIP [place] [address] POCT Glucose (02/01/2019 2:58 PM EDT) P athologist Signature POC Glucose 172 65 - 199 [place] [place] mg/dL [facility] Comment: Supplemental ranges: <140 mg/dL before meals <180 mg/dL all other times of the day Specimen Anatomical Collection Method Collection Time Receive d Time (Source) Location / / Volume Laterality Blood specimen 02/01/2019 2:58 PM 019 2:58 (specimen) EDT PM EDT Trip Corona MD POINT OF CARE TEST ORDERABLE S Performing Organization Address City/State/ZIP Code Phon e Number [address] POCT Glucose (02/01/2019 1:10 PM EDT) athologist Signature POC Glucose 132 65 - 199 [facility] [place] mg/dL [facility] Comment: Supplemental ranges: <140 mg/dL before meals <180 mg/dL all other times of the day Specimen Anatomical Collection Method Collection Time Receive d Time (Source) Location / / Volume Laterality Blood specimen 02/01/2019 1:10 PM 019 1:10 (specimen) EDT PM EDT Trip Corona MD POINT OF CARE TEST ORDERABLE S Performing Organization Address City/State/ZIP [place] [address] POCT Glucose (02/01/2019 12:07 PM EDT) athologist Signature POC Glucose 109 65 - 199 [place] [place] mg/dL [facility] Comment: Supplemental ranges: <140 mg/dL before meals <180 mg/dL all other times of the day Specimen Anatomical Collection Method Collection Time Receive d Time (Source) Location / / Volume Laterality Blood specimen 02/01/2019 12:07 9 (specimen) PM EDT 12:07 PM EDT Trip Corona MD POINT OF CARE TEST ORDERABLE S Performing Organization Address City/State/ZIP [place] [address] POCT Glucose (02/01/2019 10:41 AM EDT) athologist Signature POC Glucose 108 65 - 199 [facility] [place] mg/dL [facility] Comment: Supplemental ranges: <140 mg/dL before meals <180 mg/dL all other times of the day Specimen Anatomical Collection Method Collection Time Receive d Time (Source) Location / / Volume Laterality Blood specimen 02/01/2019 10:41 9 (specimen) AM EDT 10:41 AM EDT Trip Corona MD POINT OF CARE TEST ORDERABLE S Performing Organization Address City/State/ZIP [place] [address] POCT Glucose (02/01/2019 10:00 AM EDT) athologist Signature POC Glucose 83 65 - 199 [facility] [place] mg/dL [facility] Comment: Supplemental ranges: <140 mg/dL before meals <180 mg/dL all other times of the day Specimen Anatomical Collection Method Collection Time Receive d Time (Source) Location / / Volume Laterality Blood specimen 02/01/2019 10:00 9 (specimen) AM EDT 10:00 AM EDT Trip Corona MD POINT OF CARE TEST ORDERABLE S Performing Organization Address City/State/ZIP [place] [address] POCT Glucose (02/01/2019 8:28 AM EDT) athologist Signature POC Glucose 116 65 - 199 [facility] [place] mg/dL [facility] Comment: Supplemental ranges: <140 mg/dL before meals <180 mg/dL all other times of the day Specimen Anatomical Collection Method Collection Time Receive d Time (Source) Location / / Volume Laterality Blood specimen 02/01/2019 8:28 AM 019 8:28 (specimen) EDT AM EDT Trip Corona MD POINT OF CARE TEST ORDERABLE S Performing Organization Address City/State/ZIP [place] [address] POCT Glucose (02/01/2019 8:04 AM EDT) athologist Signature POC Glucose 120 65 - 199 [place] [place] mg/dL [facility] Comment: Supplemental ranges: <140 mg/dL before meals <180 mg/dL all other times of the day Specimen Anatomical Collection Method Collection Time Receive d Time (Source) Location / / Volume Laterality Blood specimen 02/01/2019 8:04 AM 019 8:04 (specimen) EDT AM EDT Trip Corona MD POINT OF CARE TEST ORDERABLE S Performing Organization Address City/State/[place] [address] POCT Glucose (02/01/2019 6:52 AM EDT) P athologist Signature POC Glucose 153 65 - 199 [facility] mg/dL [facility] Comment: Supplemental ranges: <140 mg/dL before meals <180 mg/dL all other times of the day Specimen Anatomical Collection Method Collection Time Receive d Time (Source) Location / / Volume Laterality Blood specimen 02/01/2019 6:52 AM 019 6:52 (specimen) EDT AM EDT Trip Corona MD POINT OF CARE TEST ORDERABLE S Performing Organization Address City/State/ZIP [place] [address] (ABNORMAL) BLOOD GAS 2 ARTERIAL (02/01/2019 5:58 AM EDT) Analysis Performed At Patho logist Time Signature pH Art 7.43 7.35 - [facility] 7.45 [facility] pCO2 Art 37 35 - 45 [facility] mmHg [facility] pO2 Art 106 (H) 85 - 104 [facility] LABORATORY HCO3 Art 24.0 20.0 - [facility] 26.0 [facility] mmol/L [facility] LABORATORY BE Art -0.3 -3.0 - 3.0 [facility] mmol/L [facility] Hgb Blood Gas 12.3 (L) 13.7 - [facility] 16.5 gm/dL [facility] O2HB Art 96.6 94.0 - [facility] 97.0 % [facility] COHB Art 0.1 % [facility] Comment: Nonsmokers: 0.5-1.5% COHB Smokers: Variable, but usually less than 10% Toxic: 20-30% COHB Lethal: Greater than 60% COHB METHB Art 0.6 <=1.5 % [facility] Na Whole Blood 136 135 - 145 mmol/L [facility] K Whole Blood 4.8 3.5 - 5.0 mmol/L [facility] Comment: Please note: Patients with WBC >100,000 may have falsely elevated Potassium levels. Contact the Clinical Chemistry L aboratory if there are any questions. ICa Whole Blood 1.10 (L) 1.15 - 1.33 mmol/L [facility]OR[facility] Comment: Note: ??Total bilirubin higher than 20 m g/dL may lead to falsely low ionized calcium. CL Whole Blood 104 98 - 107 mmol/L [facility] Gluc Whole Bld 195 65 - 199 mg/dL [facility] Comment: Diabetes: >=200 mg/dL plus symp toms. Lactate WB 2.4 (H) 0.5 - 2.2 mmol/L [facility] LABORATORY FIO2 Art 40 % [facility] PF Ratio Art 265 [facility] LABORATORY Specimen Anatomical Collection Method Collection Time Receive d Time (Source) Location / / Volume Laterality Blood specimen 02/01/2019 5:58 AM 019 5:58 (specimen) EDT AM EDT Lizz Cabrera MD CHEMISTRY ORDERABLES Performing Organization Address City/State/ZIP [place] [address] POCT Glucose (02/01/2019 4:43 AM EDT) athologist Signature POC Glucose 191 65 - 199 [facility] mg/dL [facility] Comment: Supplemental ranges: <140 mg/dL before meals <180 mg/dL all other times of the day Specimen Anatomical Collection Method Collection Time Receive d Time (Source) Location / / Volume Laterality Blood specimen 02/01/2019 4:43 AM 019 4:43 (specimen) EDT AM EDT Lizz Cabrera MD POINT OF CARE TEST ORDERABLE S Performing Organization Address City/[facility]/ZIP [place] [address] (ABNORMAL) POCT Glucose (02/01/2019 3:23 AM EDT) P athologist Signature POC Glucose 225 (H) 65 - 199 [facility] mg/dL [facility] Comment: Supplemental ranges: <140 mg/dL before meals <180 mg/dL all other times of the day Specimen Anatomical Collection Method Collection Time Receive d Time (Source) Location / / Volume Laterality Blood specimen 02/01/2019 3:23 AM 019 3:23 (specimen) EDT AM EDT Lizz Cabrera MD POINT OF CARE TEST ORDERABLE S Performing Organization Address City/State/[place] [address] (ABNORMAL) BLOOD GAS 2 ARTERIAL (02/01/2019 1:54 AM EDT) Analysis Performed At Patho logist Time Signature pH Art 7.31 (L) 7.35 - [facility] 7.45 [facility]ORY pCO2 Art 35 35 - 45 [facility] mmHg [facility] pO2 Art 93 85 - 104 [facility] mmHg [facility] HCO3 Art 17.3 (L) 20.0 - [facility] 26.0 [facility] mmol/L [facility] LABORATORY BE Art -9.0 (L) -3.0 - 3.0 [facility] mmol/L [facility] Hgb Blood Gas 13.0 (L) 13.7 - [facility] 16.5 gm/dL [facility] O2HB Art 94.8 94.0 - [facility] 97.0 % [facility] COHB Art 0.4 % [facility] Comment: Nonsmokers: 0.5-1.5% COHB Smokers: Variable, but usually less than 10% Toxic: 20-30% COHB Lethal: Greater than 60% COHB METHB Art 0.7 <=1.5 % [facility] Na Whole Blood 138 135 - 145 mmol/L [facility] K Whole Blood 4.3 3.5 - 5.0 mmol/L [facility] Comment: Please note: Patients with WBC >100,000 may have falsely elevated Potassium levels. Contact the Clinical Chemistry L aboratory if there are any questions. ICa Whole Blood 1.06 (L) 1.15 - 1.33 mmol/L [facility] Comment: Note: ??Total bilirubin higher than 20 m g/dL may lead to falsely low ionized calcium. CL Whole Blood 103 98 - 107 mmol/L [facility] LABORATORY Gluc Whole Bld 276 (H) 65 - 199 mg/dL [facility] Comment: Diabetes: >=200 mg/dL plus symp toms. Lactate WB 8.5 (Critical) 0.5 - 2.2 mmol/L [facility] LABORATORY FIO2 Art 40 % [facility] PF Ratio Art 232 [facility] LABORATORY Specimen Anatomical Collection Method Collection Time Receive d Time (Source) Location / / Volume Laterality Blood specimen 02/01/2019 1:54 AM 019 1:54 (specimen) EDT AM EDT Lizz Cabrera MD CHEMISTRY ORDERABLES Performing Organization Address City/State/[place] [address] (ABNORMAL) BLOOD GAS 2 ARTERIAL (02/01/2019 12:35 AM EDT) [facility] gist Method Time Signature pH Art 7.30 (L) 7.35 - [facility] 7.45 [facility] LAB[facility]ORY pCO2 Art 33 (L) 35 - 45 [facility] LABORATORY pO2 Art 101 85 - 104 [facility] LABORATORY HCO3 Art 15.9 (L) 20.0 - [facility] 26.0 [facility] mmol/L [facility] LABORATORY BE Art -10.6 (L) -3.0 - 3.0 [facility] mmol/L [facility]OR[facility] Hgb Blood Gas 13.6 (L) 13.7 - [facility] 16.5 gm/dL [facility] O2HB Art 95.3 94.0 - [facility] 97.0 % [facility] COHB Art 0.5 % [facility] Comment: Nonsmokers: 0.5-1.5% COHB Smokers: Variable, but usually less than 10% Toxic: 20-30% COHB Lethal: Greater than 60% COHB METHB Art 0.7 <=1.5 % [facility] Na Whole Blood 137 135 - 145 mmol/L [facility] K Whole Blood 4.1 3.5 - 5.0 mmol/L [facility] Comment: Please note: Patients with WBC >100,000 may have falsely elevated Potassium levels. Contact the Clinical Chemistry L aboratory if there are any questions. ICa Whole Blood 1.09 (L) 1.15 - 1.33 mmol/L [facility] Comment: Note: ??Total bilirubin higher than 20 m g/dL may lead to falsely low ionized calcium. CL Whole Blood 103 98 - 107 mmol/L [facility]OR[facility] Gluc Whole Bld 270 (H) 65 - 199 mg/dL [facility] Comment: Diabetes: >=200 mg/dL plus symp toms. Lactate WB 6.7 (Critical) 0.5 - 2.2 mmol/L [facility]ORY FIO2 Art 40 % [facility] PF Ratio Art 252 [facility] LABORATORY Specimen Anatomical Collection Method Collection Time Receive d Time (Source) Location / / Volume Laterality Blood specimen 02/01/2019 12:35 9 (specimen) AM EDT 12:35 AM EDT Lizz Cabrera MD CHEMISTRY ORDERABLES Performing Organization Address City/State/ZIP [place] [address] Scan, Peripheral Blood (02/01/2019 12:22 AM EDT) [facility] gist Method Time Signature Plat Estimate Normal [facility] RBC Morphology Abnormal [facility] Ovalocytes 1-5 /HPF [facility] Freedom Cells gtr than 10 /HPF [facility] Pappenheimer Bdy Present >1/HPF [facility] Specimen Anatomical Collection Method Collection Time Receive d Time (Source) Location / / Volume Laterality Blood specimen 02/01/2019 12:22 9 1:16 (specimen) AM EDT AM EDT Resulting Agency Comment Spec In Lab Sacha LEI HEMATOLOGY ORDERABLES Performing Organization Address City/State/[place] [address] (ABNORMAL) Differential, Automated (02/01/2019 12:22 AM EDT) [facility] Method Time Signature Neutrophils % 83.1 % [facility] LABORATORY Neutr Abs (ANC) 23.60 (H) 1.70 - [facility] 6.10 [facility] x10(3)/[facility] LABORATORY Lymphocytes % 9.1 % [facility] LABOR[facility]ORY Lymphocytes Abs 2.6 0.9 - 3.2 [facility] x10(3)/[facility] LABORATORY Monocytes % 6.3 % [facility] LABORATORY Monocyte Abs 1.8 (H) 0.3 - 0.9 [facility] x10(3)/[facility] LABORATORY Eosinophils % 0.1 % [facility] LABORATORY Eosinophils Abs 0.0 0.0 - 0.4 [facility] x10(3)/[facility] LABORATORY Basophils % 0.3 % [facility] LABORATORY Basophils Abs 0.1 0.0 - 0.1 [facility] x10(3)/[facility] LABORATORY Immature Gran % 1.10 % [facility] LABORATORY Comment: Immature granulocytes(IG's)percentage an d absolute count will include metamyelocytes, myelocytes, and promyelo cytes. Blood smears from CBCs yielding IG's will be scanned manually for concor dance. If this scan disagrees with the automated IG or if promyelocytes are not ed, a manual differential will be performed. Corinne Gran Abs 0.32 (H) 0.00 - 0.04 x10(3)/[facility] LABORATORY Specimen Anatomical Collection Method Collection Time Receive d Time (Source) Location / / Volume Laterality Blood specimen 02/01/2019 12:22 9 (specimen) AM EDT 12:33 AM EDT Resulting Agency Comment Spec In Lab Sacha LEI HEMATOLOGY ORDERABLES Performing Organization Address City/State/[place] [address] (ABNORMAL) Hemogram (02/01/2019 12:22 AM EDT) Analysis Performed At Patho logist Time Signature WBC 28.4 (H) 4.0 - 9.5 [facility] x10(3)/[facility] LABORATORY RBC 4.08 (L) 4.58 - [place] RUPALI 5.54 [facility] x10(6)/[facility] LABORATORY Hemoglobin 12.3 (L) 13.7 - [facility] 16.[facility] gm/dL [facility] LABORATORY Hematocrit 36.7 (L) 40.5 - [place] 48.5 % [facility] LABORATORY MCV 90.0 82.9 - [facility] 93.1 [facility] LABORATORY MCH 30.6 27.5 - [facility] 32.1 pg [facility] LABORATORY MCHC 34.1 32.0 [facility] 35.[facility] gm/dL [facility] LABORATORY Platelets 273 145 - 357 [facility] x10(3)/[facility] LABORATORY RDWSD 43.2 36.[address] [facility] 45.0 [facility] LABORATORY RDWCV 13.3 11.4 [facility] 13.8 % [facility] LABORATORY MPV 11.2 7.6 - 12.9 [facility] LABORATORY nRBC % Auto 0.0 % [facility] LABORATORY nRBC Abs Auto 0.000 0.000 - [facility] 0.000 [facility] x10(3)/[facility] LABORATORY Specimen Anatomical Collection Method Collection Time Receive d Time (Source) Location / / Volume Laterality Blood specimen 02/01/2019 12:22 9 (specimen) AM EDT 12:33 AM EDT Resulting Agency Comment Spec In Lab Sacha LEI HEMATOLOGY ORDERABLES Performing Organization Address City/State/[place] [address] (ABNORMAL) Basic Metabolic Panel (non-fasting) (02/01/2019 12:22 AM EDT) P athologist Signature Glucose Lvl 292 (H) 65 - [address] [facility]/dL [facility] LABORATORY Comment: Diabetes: >=200 mg/dL plus symp toms BUN 16 10 - 20 mg/dL [facility] LABORATORY Creatinine 1.08 0.80 - 1.50 mg/dL [facility] LABORATORY Sodium 140 135 - 145 mmol/L [facility] LABORATORY Potassium Not Perf 3.5 - 5.0 [facility] LABORATORY Comment: Duplicate. Potassium already completed. Please note: ??Patients with WBC >100,00 0 may have falsely elevated Potassium levels. ??For accurate Potassium quantif ication in these patients send serum separator tube (gold top) for subsequent determinations. ??Contact the Clinical Chemistry Laboratory if there are any qu estions. Chloride 102 98 - 107 mmol/L [facility] LABORATORY CO2 Not Perf 22 - [facility] LABORATORY Comment: Add-on request. Sample too old to perform test. Anion Gap Unable to Calculate 5 - 15 mmol/L [facility] LABORATORY Calcium 8.0 (L) 8.5 - 10.5 mg/dL [facility] LABORATORY Comment: result rechecked-ssd Estimated GFR 71 >=60 mL/min/1.73 m?? [facility] LABORATORY Comment: The eGFR was calculated using the CKD-EP I equation. As with all creatinine based estimates of kidney function, eGFR values calculated with the CKD-EPI equation are not accurate in patients wi th acute kidney failure, extremes of body mass or the acutely ill. [email or web address]/[facility] TULSAnkf eGFR 82 >=60 mL/min/1.73 m?? [facility] LABORATORY Comment: The eGFR was calculated using the CKD-EP I equation. As with all creatinine based estimates of kidney function, eGFR values calculated with the CKD-EPI equation are not accurate in patients wi th acute kidney failure, extremes of body mass or the acutely ill. http://Askem/DHnkf Specimen Anatomical Collection Method Collection Time Receive d Time (Source) Location / / Volume Laterality Blood specimen 02/01/2019 12:22 9 (specimen) AM EDT 12:33 AM EDT Resulting Agency Comment Spec In Lab Lizz Cabrera MD CHEMISTRY ORDERABLES Performing Organization Address City/State/ZIP Code [place] [address] (ABNORMAL) Troponin (02/01/2019 12:22 AM EDT) athologist Signature Troponin-T 0.28 (H) 0.00 - [place] 0.00 ng/mL [facility] LABORATORY Comment: The 99th percentile for Troponin T is le ss than 0.01 ng/mL, any detectable cTnT concentration using this assay should be considered elevated. According to the third universal definit ion of myocardial infarction the following criteria with a clinical prese ntation consistent with acute myocardial ischemia meets the diagnosis for a myocardial infarction (MO). Detection of a rise and/or fall of [...] additional sample may be indicated. Reference: Third [place] Definition of Myocardial Infarction. Journal of the [place] [employer] 2012;60:1581-98 Specimen Anatomical Collection Method Collection Time Receive d Time (Source) Location / / Volume Laterality Blood specimen 02/01/2019 12:22 9 (specimen) AM EDT 12:33 AM EDT Resulting Agency Comment Spec In Lab Lizz Cabrera MD CHEMISTRY ORDERABLES Performing Organization Address City/State/ZIP Code [place] [address] (ABNORMAL) Hemoglobin (02/01/2019 12:22 AM EDT) P athologist Signature Hemoglobin 12.3 (L) 13.7 - [place] 16.5 gm/dL [facility] LABORATORY Specimen Anatomical Collection Method Collection Time Receive d Time (Source) Location / / Volume Laterality Blood specimen 02/01/2019 12:22 9 (specimen) AM EDT 12:33 AM EDT Resulting Agency Comment Spec In Lab Lizz Cabrera MD HEMATOLOGY ORDERABLES Performing Organization Address City/[facility]/ZIP [place] [address] Potassium (02/01/2019 12:22 AM EDT) athologist Signature Potassium 4.4 3.5 - 5.0 [facility] mmol/L [facility] LABORATORY Comment: Please note: ??Patients with [...] Cabrera MD CHEMISTRY ORDERABLES Performing Organization Address City/[facility]/ZIP [place] [address] (ABNORMAL) POCT Glucose (01/31/2019 11:20 PM EDT) athologist [facility] POC Glucose 233 (H) 65 - 199 [place] mg/dL [facility] LABORATORY Comment: Supplemental ranges: <140 mg/dL before meals <180 mg/dL all other times of the day Specimen Anatomical Collection Method Collection Time Receive d Time (Source) Location / / Volume Laterality Blood specimen 01/31/2019 11:20 9 (specimen) PM EDT 11:20 PM EDT Lizz Cabrera MD POINT OF CARE TEST ORDERABLE S Performing Organization Address City/[facility]/ZIP [place] [address] (ABNORMAL) BLOOD GAS 2 ARTERIAL (01/31/2019 10:08 PM EDT) Patholo gist Method Time Signature pH Art 7.23 7.35 - [place] (Critical) 7.45 [facility] LABORATORY pCO2 Art 42 35 - 45 [facility] mmHg [facility] LABORATORY pO2 Art 94 85 - 104 [facility] LABORATORY HCO3 Art 17.1 (L) 20.0 - [facility] 26.0 [facility] mmol/L [facility] LABORATORY BE Art -10.5 (L) -3.0 - 3.0 [facility] mmol/L [facility] LABORATORY Hgb Blood Gas 14.0 13.7 - [facility] 16.5 gm/dL [facility] LABORATORY O2HB Art 94.3 94.0 - [facility] 97.0 % [facility] LABORATORY COHB Art 0.6 % [facility] LABORATORY Comment: Nonsmokers: 0.5-1.5% COHB Smokers: Variable, but usually less than 10% Toxic: 20-30% COHB Lethal: Greater than 60% COHB METHB Art 0.6 <=1.5 % [facility] LABORATORY Na Whole Blood 136 135 - 145 mmol/L [facility] LABORATORY K Whole Blood 4.0 3.5 - 5.0 mmol/L [facility] LABORATORY Comment: Please note: Patients with WBC >100,000 may have falsely elevated Potassium levels. Contact the Clinical Chemistry L aboratory if there are any questions. ICa Whole Blood 1.09 (L) 1.15 - 1.33 mmol/L [facility] LABORATORY Comment: Note: ??Total bilirubin higher than 20 m g/dL may lead to falsely low ionized calcium. CL Whole Blood 104 98 - 107 mmol/L [facility] LABORATORY Gluc Whole Bld 273 (H) 65 - 199 mg/dL [facility] LABORATORY Comment: Diabetes: >=200 mg/dL plus symp toms. Lactate WB 5.7 (Critical) 0.5 - 2.2 mmol/L [facility] LABORATORY FIO2 Art 40 % [facility] LABORATORY PF Ratio Art 235 [facility] LABORATORY Specimen Anatomical Collection Method Collection Time Receive d Time (Source) Location / / Volume Laterality Blood specimen 01/31/2019 10:08 9 (specimen) PM EDT 10:08 PM EDT Lizz Cabrera MD CHEMISTRY ORDERABLES Performing Organization Address City/State/ZIP Code Phon e Number [place] [id number] HOSPITAL LAB[address]ATORY Drive XR Chest PA or [...] GAS 2 ARTERIAL (01/31/2019 8:38 PM EDT) [facility] Method Time Signature pH Art 7.23 7.35 - [facility] (Critical) 7.45 [facility] LABORATORY pCO2 Art 50 (H) 35 - 45 [facility] LABORATORY pO2 Art 257 (H) 85 - 104 [facility] LABORATORY HCO3 Art 20.3 20.0 - [facility] 26.0 [facility] mmol/L [facility] LABORATORY BE Art -7.2 (L) -3.0 - 3.0 [facility] mmol/L [facility] LABORATORY Hgb Blood Gas 13.9 13.7 - [facility] 16.5 gm/dL [facility] LABORATORY O2HB Art 97.6 (H) 94.0 - [facility] 97.0 % [facility] LABORATORY COHB Art 0.7 % [facility] LABORATORY Comment: Nonsmokers: 0.5-1.5% COHB Smokers: Variable, but usually less than 10% Toxic: 20-30% COHB Lethal: Greater than 60% COHB METHB Art 0.7 <=1.5 % [facility] LABORATORY Na Whole Blood 138 135 - 145 mmol/L [facility] LABORATORY K Whole Blood 3.8 3.5 - 5.0 mmol/L [facility] LABORATORY Comment: Please note: Patients with WBC >100,000 may have falsely elevated Potassium levels. Contact the Clinical Chemistry L aboratory if there are any questions. ICa Whole Blood 1.12 (L) 1.15 - 1.33 mmol/L [facility] LABORATORY Comment: Note: ??Total bilirubin higher than 20 m g/dL may lead to falsely low ionized calcium. CL Whole Blood 104 98 - 107 mmol/L [facility] LABORATORY Gluc Whole Bld 238 (H) 65 - 199 mg/dL [facility] LABORATORY Comment: Diabetes: >=200 mg/dL plus symp toms. Lactate WB 4.1 (Critical) 0.5 - 2.2 mmol/L [facility] LABORATORY FIO2 Art 100 % [facility] LABORATORY PF Ratio Art 257 [facility] LABORATORY Specimen Anatomical Collection Method Collection Time Receive d Time (Source) Location / / Volume Laterality Blood specimen 01/31/2019 8:38 PM 019 8:38 (specimen) EDT PM EDT Lizz Cabrera MD CHEMISTRY ORDERABLES Performing Organization Address City/State/[place] [address] EKG 12 Lead (01/31/2019 8:20 PM EDT) Component Value Ref Range Test Analysis Performed Pathologis t Method Time At Signature Ventricular rate 90 BPM MUSE SYSTEM Atrial Rate 90 BPM MUSE SYSTEM P-R Interval 208 ms MUSE SYSTEM QRS Duration 132 ms MUSE SYSTEM Q-T Interval 424 ms MUSE SYSTEM QTC Calculated 518 ms MUSE SYSTEM (Bezet) Calculated P [place] 65 degrees MUSE SYSTEM Calculated R [place] -84 degrees MUSE SYSTEM Calculated T [place] 98 degrees MUSE SYSTEM INTERPRETATION Sinus rhythm [...] Cabrera MD ECG ORDERABLES Performing Organization Address City/[facility]/ZIP Code Phon e Number MUSE SYSTEM (ABNORMAL) BLOOD GAS 2 ARTERIAL (01/31/2019 7:33 PM EDT) P athologist Signature pH Art 7.28 7.35 - [facility] (Critical) 7.45 [facility] LABORATORY Comment: Noted by musical instrument mechanic. pCO2 Art 42 35 - 45 mmHg [facility] LABORATORY pO2 Art 365 (H) 85 - 104 mmHg [facility] LABORATORY HCO3 Art 19.7 (L) 20.0 - 26.0 mmol/L [facility] LABORATORY BE Art -7.0 (L) -3.0 - 3.0 mmol/L [facility] LABORATORY Hgb Blood Gas 12.0 (L) 13.7 - 16.5 gm/dL [facility] LABORATORY O2HB Art 98.9 (H) 94.0 - 97.0 % [facility] LABORATORY COHB Art 0.5 % [facility] LABORATORY Comment: Nonsmokers: 0.5-1.5% COHB Smokers: Variable, but usually less than 10% Toxic: 20-30% COHB Lethal: Greater than 60% COHB METHB Art 0.3 <=1.5 % [facility] LABORATORY Na Whole Blood 135 135 - 145 mmol/L [facility] LABOR[facility] K Whole Blood 3.6 3.5 - 5.0 mmol/L [facility] LABORATORY Comment: Please note: Patients with WBC >100,000 may have falsely elevated Potassium levels. Contact the Clinical Chemistry L aboratory if there are any questions. ICa Whole Blood 1.07 (L) 1.15 - 1.33 mmol/L [facility] LABORATORY Comment: Note: ??Total bilirubin higher than 20 m g/dL may lead to falsely low ionized calcium. CL Whole Blood 106 98 - 107 mmol/L [facility] LABORATORY Gluc Whole Bld 224 (H) 65 - 199 mg/dL [facility] LABORATORY Comment: Diabetes: >=200 mg/dL plus symp toms. Lactate WB 2.8 (H) 0.5 - 2.2 mmol/L [facility] LABORATORY Specimen Anatomical Collection Method Collection Time Receive d Time (Source) Location / / Volume Laterality Blood specimen 01/31/2019 7:33 PM 019 7:33 (specimen) EDT PM EDT Lizz Cabrera MD CHEMISTRY ORDERABLES Performing Organization Address City/State/[place] [address] (ABNORMAL) BLOOD GAS 2 ARTERIAL (01/31/2019 6:56 PM EDT) Analysis Performed At Patho logist Time Signature pH Art 7.30 (L) 7.35 - [facility] 7.45 [facility] LABORATORY pCO2 Art 49 (H) 35 - 45 [facility] LABORATORY pO2 Art 146 (H) 85 - 104 [facility] LABORATORY HCO3 Art 23.5 20.0 - [facility] 26.0 [facility]/L HOSPITAL LABORATORY BE Art -2.9 -3.0 - 3.0 [facility] mmol/L [facility] LABORATORY Hgb Blood Gas 10.7 (L) 13.7 - [facility] 16.5 gm/dL [facility] LABORATORY O2HB Art 97.7 (H) 94.0 - [facility] 97.0 % [facility] LABORATORY COHB Art 0.4 % [facility] LABORATORY Comment: Nonsmokers: 0.5-1.5% COHB Smokers: Variable, but usually less than 10% Toxic: 20-30% COHB Lethal: Greater than 60% COHB METHB Art 0.3 <=1.5 % [facility] LABORATORY Na Whole Blood 133 (L) 135 - 145 mmol/L [facility] LABORATORY K Whole Blood 3.7 3.5 - 5.0 mmol/L [facility] LABORATORY Comment: Please note: Patients with WBC >100,000 may have falsely elevated Potassium levels. Contact the Clinical Chemistry L aboratory if there are any questions. ICa Whole Blood 1.12 (L) 1.15 - 1.33 mmol/L [facility] LABORATORY Comment: Note: ??Total bilirubin higher than 20 m g/dL may lead to falsely low ionized calcium. CL Whole Blood 103 98 - 107 mmol/L [facility] LABORATORY Gluc Whole Bld 247 (H) 65 - 199 mg/dL [facility] LABORATORY Comment: Diabetes: >=200 mg/dL plus symp toms. Lactate WB 2.3 (H) 0.5 - 2.2 mmol/L [facility] LABORATORY Specimen Anatomical Collection Method Collection Time Receive d Time (Source) Location / / Volume Laterality Blood specimen 01/31/2019 6:56 PM 019 6:56 (specimen) EDT PM EDT Lizz Cabrera MD CHEMISTRY ORDERABLES Performing Organization Address City/State/[place] [address] (ABNORMAL) Fibrinogen (01/31/2019 6:55 PM EDT) athologist Signature Fibrinogen 180 (L) 200 - 393 [facility] mg/dL [facility] LABORATORY Comment: Called by: lianet Read [...] Organization Address City/State/[place] [address] (ABNORMAL) Hemogram (01/31/2019 6:55 PM EDT) P athologist Signature WBC 27.7 (H) 4.0 - 9.5 [facility] x10(3)/[facility] LABORATORY RBC 3.30 (L) 4.58 - [facility] 5.54 [facility] x10(6)/[facility] LABORATORY Hemoglobin 10.0 (L) 13.7 - [facility] 16.5 gm/dL [facility] LABORATORY Hematocrit 29.9 (L) 40.5 - [facility] 48.5 % [facility] LABORATORY Comment: This result has been called to MARY Lopes RN by Zi Meyer on 01 31 2019 at 1904, and has been read back. MCV 90.6 82.9 - 93.1 fL [facility] LABORATORY MCH 30.3 27.5 - 32.1 pg [facility] LABORATORY MCHC 33.4 32.0 - 35.7 gm/dL [facility] LABORATORY Platelets 214 145 - 357 x10(3)/[facility] LABORATORY RDWSD 44.4 36.0 - 45.0 fL [facility] LABORATORY RDWCV 13.4 11.4 - 13.8 % [facility] LABORATORY MPV 10.9 7.6 - 12.9 fL [facility] LABORATORY nRBC % Auto 0.0 % [facility] LABORATORY nRBC Abs Auto 0.000 0.000 - 0.000 x10(3)/mcL M [facility] LABORATORY Specimen Anatomical Collection Method Collection Time Receive d Time (Source) Location / / Volume Laterality Blood specimen 01/31/2019 6:55 PM 019 6:59 (specimen) EDT PM EDT Resulting Agency Comment Spec In Lab Jose Luke MD HEMATOLOGY ORDERABLES Performing Organization Address City/[facility]/ZIP Code Phon e Number [address] APTT (01/31/2019 6:55 PM EDT) P athologist Signature PTT 33 25 - 37 sec [facility] LABORATORY Comment: Called by: lianet, Read [...] Luke MD HEMATOLOGY ORDERABLES Performing Organization Address City/[facility] [place] [address] (ABNORMAL) Prothrombin Time (01/31/2019 6:55 PM EDT) P athologist Signature PT 17.2 (H) 9.4 - 12.5 [facility] LABORATORY Comment: Called by: lianet, Read back by: keke ford_, Date/Time:_01/31/19 19:15. INR 1.5 [facility] LABORATORY Comment: Called by: lianet, [...] Luke MD HEMATOLOGY ORDERABLES Performing Organization Address City/[facility]/ZIP Code Phon e Number [address] Prepare Platelets, Apheresis (01/31/2019 6:45 PM EDT) P athologist Signature Dispensed? Yes [facility] LABORATORY Specimen Anatomical Collection Method Collection Time Receive d Time (Source) Location / / Volume Laterality Blood specimen 01/31/2019 6:45 PM 019 6:43 (specimen) EDT PM EDT Lizz Cabrera MD BLOOD BANK ORDERABLES Performing Organization Address City/[facility]/ZIP [place] [address] (ABNORMAL) BLOOD GAS 2 ARTERIAL (01/31/2019 6:31 PM EDT) Analysis Performed At Patho logist Time Signature pH Art 7.34 (L) 7.35 - [facility] 7.45 [facility] LABORATORY pCO2 Art 40 35 - 45 [facility] LABORATORY pO2 Art 414 (H) 85 - 104 [facility] LABORATORY HCO3 Art 21.4 20.0 - [facility] 26.0 [facility] mmol/L [facility] LABORATORY BE Art -4.3 (L) -3.0 - 3.0 [facility] mmol/L [facility] LABORATORY Hgb Blood Gas 10.3 (L) 13.7 - [facility] 16.5 gm/dL [facility] LABORATORY O2HB Art 99.0 (H) 94.0 - [facility] 97.0 % [facility] LABORATORY COHB Art 0.2 % [facility] LABORATORY Comment: Nonsmokers: 0.5-1.5% COHB Smokers: Variable, but usually less than 10% Toxic: 20-30% COHB Lethal: Greater than 60% COHB METHB Art 0.3 <=1.5 % [facility] LABORATORY Na Whole Blood 130 (L) 135 - 145 mmol/L [facility] LABORATORY K Whole Blood 4.7 3.5 - 5.0 mmol/L [facility] LABORATORY Comment: Please note: Patients with WBC >100,000 may have falsely elevated Potassium levels. Contact the Clinical Chemistry L aboratory if there are any questions. ICa Whole Blood 1.27 1.15 - 1.33 mmol/L [facility] LABOR[facility]ORY Comment: Note: ??Total bilirubin higher than 20 m g/dL may lead to falsely low ionized calcium. CL Whole Blood 100 98 - 107 mmol/L [facility] LABORATORY Gluc Whole Bld 273 (H) 65 - 199 mg/dL [facility] LABORATORY Comment: Diabetes: >=200 mg/dL plus symp toms. Lactate WB 1.5 0.5 - 2.2 mmol/L [facility] LABORATORY Specimen Anatomical Collection Method Collection Time Receive d Time (Source) Location / / Volume Laterality Blood specimen 01/31/2019 6:31 PM 019 6:31 (specimen) EDT PM EDT Lizz Cabrera MD CHEMISTRY ORDERABLES Performing Organization Address City/State/[place] [address] (ABNORMAL) BLOOD GAS 2 ARTERIAL (01/31/2019 6:08 PM EDT) Analysis Performed At Patho logist Time Signature pH Art 7.37 7.35 - [facility] 7.45 [facility] LABORATORY pCO2 Art 39 35 - 45 [facility] LABORATORY pO2 Art 327 (H) 85 - 104 [facility] LABORATORY HCO3 Art 22.2 20.0 - [facility] 26.0 [facility] mmol/[facility] LABORATORY BE Art -3.1 (L) -3.0 - 3.0 [facility] mmol/L [facility] LABORATORY Hgb Blood Gas 10.8 (L) 13.7 - [facility] 16.5 gm/dL [facility] LABORATORY O2HB Art 98.6 (H) 94.0 - [facility] 97.0 % [facility] LABORATORY COHB Art 0.4 % [facility] LABORATORY Comment: Nonsmokers: 0.5-1.5% COHB Smokers: Variable, but usually less than 10% Toxic: 20-30% COHB Lethal: Greater than 60% COHB METHB Art 0.3 <=1.5 % [facility] LABORATORY Na Whole Blood 130 (L) 135 - 145 mmol/L [facility] LABORATORY K Whole Blood 5.2 (H) 3.5 - 5.0 mmol/L [facility] LABORATORY Comment: Please note: Patients with WBC >100,000 may have falsely elevated Potassium levels. Contact the Clinical Chemistry L aboratory if there are any questions. ICa Whole Blood 0.96 (L) 1.15 - 1.33 mmol/L [facility] LABOR[facility]ORY Comment: Note: ??Total bilirubin higher than 20 m g/dL may lead to falsely low ionized calcium. CL Whole Blood 100 98 - 107 mmol/L [facility] LABORATORY Gluc Whole Bld 279 (H) 65 - 199 mg/dL [facility] LABORATORY Comment: Diabetes: >=200 mg/dL plus symp toms. Lactate WB 1.4 0.5 - 2.2 mmol/L [facility] LABORATORY Specimen Anatomical Collection Method Collection Time Receive d Time (Source) Location / / Volume Laterality Blood specimen 01/31/2019 6:08 PM 019 6:08 (specimen) EDT PM EDT Lizz Cabrera MD CHEMISTRY ORDERABLES Performing Organization Address City/State/[place] [address] (ABNORMAL) Fibrinogen (01/31/2019 6:00 PM EDT) P athologist Signature Fibrinogen 180 (L) 200 - 393 [facility] mg/dL [facility] Comment: Called by: lianet, Read [...] Organization Address City/State/[place] [address] Platelet count (01/31/2019 6:00 PM EDT) athologist Signature Platelets 229 145 - 357 [facility] x10(3)/[facility] LABORATORY Plat Immature 2.7 0.0 - 7.4 [facility] % % [facility] Comment: Limitation of the Immature Platelet Frac tion (IPF)-May be less reliable when the platelet count is less than 95w441/u L due to statistical imprecision. The IPF [...] in a decreased state of production. References: [email or web address] The Clinical Value of the Immature Platelet Fraction (IPF) in Cell Recovery Document Number [id number] 01/2011 [employer] The Role of the Imm ature Platelet Fraction (IPF) in the Differential Diagnosis of Thrombocytopen ia, Document [id number] V012/17/13 P05 Specimen Anatomical Collection Method Collection Time Receive d Time (Source) Location / / Volume Laterality Blood specimen 01/31/2019 6:00 PM 019 6:10 (specimen) EDT PM EDT Resulting Agency Comment Spec In Lab Lizz Cabrera MD HEMATOLOGY ORDERABLES Performing Organization Address City/[facility]/[place] [address] (ABNORMAL) Hemoglobin and Hematocrit, blood (01/31/2019 6:00 PM EDT) P athologist Signature Hemoglobin 9.9 (L) 13.7 - 16.5 [facility] gm/dL [facility] Comment: This result has been called to MARY Lopes RN by Zi Meyer on 01 31 2019 at 1818, and has been read back. Hematocrit 28.7 (L) 40.5 - 48.5 % [facility] Comment: This result has been [...] Cabrera MD HEMATOLOGY ORDERABLES Performing Organization Address City/[facility]/[place] [address] (ABNORMAL) BLOOD GAS 2 ARTERIAL (01/31/2019 5:42 PM EDT) Analysis Performed At Patho logist Time Signature pH Art 7.32 (L) 7.35 - [facility] 7.45 [facility] pCO2 Art 47 (H) 35 - 45 [facility] mmHg [facility] pO2 Art 282 (H) 85 - 104 [facility] mmHg [facility] HCO3 Art 23.7 20.0 - [facility] 26.0 [facility] mmol/L [facility] BE Art -2.3 -3.0 - 3.0 [facility] mmol/L [facility] Hgb Blood Gas 10.6 (L) 13.7 - [facility] 16.5 gm/dL [facility] O2HB Art 98.7 (H) 94.0 - [facility] 97.0 % [facility] COHB Art 0.1 % [facility] Comment: Nonsmokers: 0.5-1.5% COHB Smokers: Variable, but usually less than 10% Toxic: 20-30% COHB Lethal: Greater than 60% COHB METHB Art 0.3 <=1.5 % [facility] Na Whole Blood 129 (L) 135 - 145 mmol/L [facility] K Whole Blood 5.8 (H) 3.5 - 5.0 mmol/L [facility] Comment: Please note: Patients with WBC >100,000 may have falsely elevated Potassium levels. Contact the Clinical Chemistry L aboratory if there are any questions. ICa Whole Blood 0.96 (L) 1.15 - 1.33 mmol/L [facility] Comment: Note: ??Total bilirubin higher than 20 m g/dL may lead to falsely low ionized calcium. CL Whole Blood 101 98 - 107 mmol/L [facility] Gluc Whole Bld 257 (H) 65 - 199 mg/dL [facility] Comment: Diabetes: >=200 mg/dL plus symp toms. Lactate WB 1.3 0.5 - 2.2 mmol/L [facility] Specimen Anatomical Collection Method Collection Time Receive d Time (Source) Location / / Volume Laterality Blood specimen 01/31/2019 5:42 PM 019 5:42 (specimen) EDT PM EDT Lizz Cabrera MD CHEMISTRY ORDERABLES Performing Organization Address City/State/[place] [address] (ABNORMAL) BLOOD GAS 2 VENOUS (01/31/2019 5:08 PM EDT) P athologist Signature pH [place] 7.28 7.32 - [facility] (Critical) 7.42 [facility] Comment: Noted by musical instrument mechanic. pCO2 [place] 48 41 - 51 mmHg [facility] pO2 [place] 55 (H) 25 - 40 mmHg [facility] HCO3 [place] 22.0 mmol/L [facility] BE [place]ron -4.8 mmol/L [facility] Hgb Blood Gas 11.0 (L) 13.7 - 16.5 gm/dL [facility] O2HB [place] 82.2 % [facility] COHB [place] 0.6 % [facility] Comment: Nonsmokers: 0.5-1.5% COHB Smokers: Variable, but usually less than 10% Toxic: 20-30% COHB Lethal: Greater than 60% COHB METHB [place] 0.3 <=1.5 % [facility] Na Whole Blood 134 (L) 135 - 145 mmol/L [facility] K Whole Blood 5.0 3.5 - 5.0 mmol/L [facility] Comment: Please note: Patients with WBC >100,000 may have falsely elevated Potassium levels. Contact the Clinical Chemistry L aboratory if there are any questions. ICa Whole Blood 0.99 (L) 1.15 - 1.33 mmol/L [facility] Comment: Note: ??Total bilirubin higher than 20 m g/dL may lead to falsely low ionized calcium. CL Whole Blood 104 98 - 107 mmol/L [facility] Gluc Whole Bld 148 65 - 199 mg/dL [facility] Comment: Diabetes: >=200 mg/dL plus symp toms Lactate WB 0.8 0.5 - 2.2 mmol/L [facility] BGas Source Venous [facility] Specimen Anatomical Collection Method Collection Time Receive d Time (Source) Location / / Volume Laterality Blood specimen 01/31/2019 5:08 PM 019 5:08 (specimen) EDT PM EDT Lizz Cabrera MD CHEMISTRY ORDERABLES Performing Organization Address City/State/[place] [address] (ABNORMAL) BLOOD GAS 2 ARTERIAL (01/31/2019 5:08 PM EDT) Analysis Performed At Patho logist Time Signature pH Art 7.30 (L) 7.35 - [facility] 7.45 [facility] pCO2 Art 41 35 - 45 [facility] LABORATORY pO2 Art 320 (H) 85 - 104 [facility] mmHg [facility] HCO3 Art 19.5 (L) 20.0 - [facility] 26.0 [facility] mmol/[facility] BE Art -6.9 (L) -3.0 - 3.0 [facility] mmol/L [facility] Hgb Blood Gas 10.9 (L) 13.7 - [facility] 16.5 gm/dL [facility] O2HB Art 98.7 (H) 94.0 - [facility] 97.0 % [facility] COHB Art 0.3 % [facility] Comment: Nonsmokers: 0.5-1.5% COHB Smokers: Variable, but usually less than 10% Toxic: 20-30% COHB Lethal: Greater than 60% COHB METHB Art 0.3 <=1.5 % [facility] Na Whole Blood 134 (L) 135 - 145 mmol/L [facility] K Whole Blood 4.9 3.5 - 5.0 mmol/L [facility] Comment: Please note: Patients with WBC >100,000 may have falsely elevated Potassium levels. Contact the Clinical Chemistry L aboratory if there are any questions. ICa Whole Blood 1.02 (L) 1.15 - 1.33 mmol/L [facility] Comment: Note: ??Total bilirubin higher than 20 m g/dL may lead to falsely low ionized calcium. CL Whole Blood 103 98 - 107 mmol/L [facility] Gluc Whole Bld 142 65 - 199 mg/dL [facility] Comment: Diabetes: >=200 mg/dL plus symp toms. Lactate WB 0.8 0.5 - 2.2 mmol/L [facility] Specimen Anatomical Collection Method Collection Time Receive d Time (Source) Location / / Volume Laterality Blood specimen 01/31/2019 5:08 PM 019 5:08 (specimen) EDT PM EDT Lizz Cabrera MD CHEMISTRY ORDERABLES Performing Organization Address City/State/[place] [address] (ABNORMAL) BLOOD GAS 2 ARTERIAL (01/31/2019 3:30 PM EDT) Analysis Performed At Patho logist Time Signature pH Art 7.33 (L) 7.35 - [facility] 7.45 [facility] pCO2 Art 43 35 - 45 [facility] LABORATORY pO2 Art 273 (H) 85 - 104 [facility] LABORATORY HCO3 Art 22.3 20.0 - [facility] 26.0 [facility] mmol/L [facility] BE Art -3.6 (L) -3.0 - 3.0 [facility] mmol/L [facility] Hgb Blood Gas 13.0 (L) 13.7 - [facility] 16.5 gm/dL [facility] O2HB Art 98.5 (H) 94.0 - [facility] 97.0 % [facility] COHB Art 0.6 % [facility] Comment: Nonsmokers: 0.5-1.5% COHB Smokers: Variable, but usually less than 10% Toxic: 20-30% COHB Lethal: Greater than 60% COHB METHB Art 0.3 <=1.5 % [facility] Na Whole Blood 138 135 - 145 mmol/L [facility] K Whole Blood 4.4 3.5 - 5.0 mmol/L [facility] Comment: Please note: Patients with WBC >100,000 may have falsely elevated Potassium levels. Contact the Clinical Chemistry L aboratory if there are any questions. ICa Whole Blood 1.15 1.15 - 1.33 mmol/L [facility] Comment: Note: ??Total bilirubin higher than 20 m g/dL may lead to falsely low ionized calcium. CL Whole Blood 103 98 - 107 mmol/L [facility] Gluc Whole Bld 146 65 - 199 mg/dL [facility] Comment: Diabetes: >=200 mg/dL plus symp toms. Lactate WB 1.1 0.5 - 2.2 mmol/L [facility] Specimen Anatomical Collection Method Collection Time Receive d Time (Source) Location / / Volume Laterality Blood specimen 01/31/2019 3:30 PM 019 3:30 (specimen) EDT PM EDT Lizz Cabrera MD CHEMISTRY ORDERABLES Performing Organization Address City/State/ZIP Code Phon e Number [address] Prepare RBC (01/31/2019 1:25 PM EDT) athologist Signature Dispensed? Yes [facility] Specimen Anatomical Collection Method Collection Time Receive d Time (Source) Location / / Volume Laterality Blood specimen 01/31/2019 1:25 PM 019 1:20 (specimen) EDT PM EDT Lizz Cabrera MD BLOOD BANK ORDERABLES Performing Organization Address City/[facility]/ZIP [place] [address] POCT Glucose (01/31/2019 11:10 AM EDT) athologist Signature POC Glucose 161 65 - 199 [facility] Comment: Supplemental ranges: <140 mg/dL before meals <180 mg/dL all other times of the day Specimen Anatomical Collection Method Collection Time Receive d Time (Source) Location / / Volume Laterality Blood specimen 01/31/2019 11:10 9 (specimen) AM EDT 11:10 AM EDT Lizz Cabrera MD POINT OF CARE TEST ORDERABLE S Performing Organization Address City/[facility]/ZIP [place] [address] (ABNORMAL) POCT Glucose (01/31/2019 7:36 AM EDT) athologist Signature POC Glucose 216 (H) 65 - 199 [facility] mg/dL [facility] Comment: Supplemental ranges: <140 mg/dL before meals <180 mg/dL all other times of the day Specimen Anatomical Collection Method Collection Time Receive d Time (Source) Location / / Volume Laterality Blood specimen 01/31/2019 7:36 AM 019 7:36 (specimen) EDT AM EDT Lizz Cabrera MD POINT OF CARE TEST ORDERABLE S Performing Organization Address City/State/ZIP [place] [address] EKG 12 Lead (01/31/2019 7:17 AM EDT) Component Value Ref Range Test Analysis Performed Pathologis t Method Time At Signature Ventricular rate 67 BPM MUSE SYSTEM Atrial Rate 67 BPM MUSE SYSTEM P-R Interval 196 ms MUSE SYSTEM QRS Duration 118 ms MUSE SYSTEM Q-T Interval 408 ms MUSE SYSTEM QTC Calculated 431 ms MUSE SYSTEM (Bezet) Calculated P [place] 29 degrees MUSE SYSTEM Calculated R [place] -65 degrees MUSE SYSTEM Calculated T [place] 112 degrees MUSE SYSTEM INTERPRETATION Normal sinus rhythm MUSE SYSTEM Left axis deviation Inferior infarct (cited on or before 30-JAN-2019) Anterior infarct (cited on or before 21-JUL-2018) ST & T wave abnormality, consider anterolateral ischemia Abnormal ECG When compared with ECG of 30-JAN-2019 06:53, No significant change was found Confirmed by Libia BRANHAM Agapito ([id number]) on 01/31/2019 9:51:44 AM Specimen Anatomical Collection Method Collection Time Receive d Time (Source) Location / / Volume Laterality 01/31/2019 7:17 AM 9 9:51 EDT AM EDT Lizz Cabrera MD ECG ORDERABLES Performing Organization Address City/State/ZIP Code Phon e Number MUSE SYSTEM (ABNORMAL) Differential, Automated (01/31/2019 5:34 AM EDT) Patholo gist Method Time Signature Neutrophils % 51.4 % [facility] Neutr Abs (ANC) 5.15 1.70 - [facility] 6.10 [facility] x10(3)/[facility] LABORATORY Lymphocytes % 35.8 % [facility] Lymphocytes Abs 3.6 (H) 0.9 - 3.2 [facility] x10(3)/[facility] LABORATORY Monocytes % 8.6 % [facility] Monocyte Abs 0.9 0.3 - 0.9 [facility] x10(3)/[facility] LABORATORY Eosinophils % 3.0 % [facility] Eosinophils Abs 0.3 0.0 - 0.4 [facility] x10(3)/[facility] LABORATORY Basophils % 0.8 % [facility] Basophils Abs 0.1 0.0 - 0.1 [facility] x10(3)/[facility] LABORATORY Immature Gran % 0.40 % [facility] Comment: Immature granulocytes(IG's)percentage an d absolute count will include metamyelocytes, myelocytes, and promyelo cytes. Blood smears from CBCs yielding IG's will be scanned manually for concor dance. If this scan disagrees with the automated IG or if promyelocytes are not ed, a manual differential will be performed. Corinne Gran Abs 0.04 0.00 - 0.04 x10(3)/[facility] Specimen Anatomical Collection Method Collection Time Receive d Time (Source) Location / / Volume Laterality Blood specimen 01/31/2019 5:34 AM 019 5:40 (specimen) EDT AM EDT Resulting Agency Comment Spec In Lab Lizz Cabrera MD HEMATOLOGY ORDERABLES Performing Organization Address City/State/ZIP Code Phon e Number [place] [id number] LAB[address] Drive (ABNORMAL) Hemogram (01/31/2019 5:34 AM EDT) Analysis Performed At Patho logist Time Signature WBC 10.0 (H) 4.0 - 9.5 [facility] x10(3)/[facility] LABORATORY RBC 4.41 (L) 4.58 - [facility] 5.54 [facility] x10(6)/[facility] LABORATORY Hemoglobin 13.3 (L) 13.7 - [facility] 16.5 gm/dL [facility] Hematocrit 39.0 (L) 40.5 - [facility] RUPALI 48.5 % [facility] MCV 88.4 82.9 - [facility] 93.1 [facility] LABORATORY MCH 30.2 27.5 - [facility] RUPALI 32.1 pg [facility] MCHC 34.1 32.0 - [facility] 35.7 gm/dL [facility] Platelets 190 145 - 357 [facility] x10(3)/[facility] LABORATORY RDWSD 42.7 36.0 - [facility] 45.0 [facility] RDWCV 13.2 11.[address] [facility] 13.8 % [facility] MPV 10.8 7.6 - 12.9 [facility] LABORATORY nRBC % Auto 0.0 % [facility] nRBC Abs Auto 0.000 0.000 - [facility] 0.000 [facility] x10(3)/[facility] LABORATORY Specimen Anatomical Collection Method Collection Time Receive d Time (Source) Location / / Volume Laterality Blood specimen 01/31/2019 5:34 AM 019 5:40 (specimen) EDT AM EDT Resulting Agency Comment Spec In Lab Lizz Cabrera MD HEMATOLOGY ORDERABLES Performing Organization Address City/State/[place] [address] (ABNORMAL) BMP w/fasting Glucose (01/31/2019 3:38 AM EDT) athologist Signature Glucose 167 (H) 65 - 99 [facility] Fasting mg/dL [facility] Comment: ?Fasting* Glucose Interpretive C [...] of Diabetes Mellitus, Position Statement from the [place] [employer]. ??Diabete s Care, Volume 33, Supplement 1, Aug 2009 BUN 17 10 - 20 mg/dL [facility] Creatinine 0.81 0.80 - 1.50 mg/dL [facility] Sodium 138 135 - 145 mmol/L [facility] Potassium 4.6 3.5 - 5.0 mmol/L [facility] Comment: Please note: ??Patients with WBC >100,00 0 may have falsely elevated Potassium levels. ??For accurate Potassium quantif ication in these patients send serum separator tube (gold top) for subsequent determinations. ??Contact the Clinical Chemistry Laboratory if there are any qu estions. Chloride 103 98 - 107 mmol/L [facility] CO2 21 (L) 22 - 31 mmol/L [facility] Anion Gap 14 5 - 15 mmol/L [facility] Calcium 8.9 8.5 - 10.5 mg/dL [facility] Estimated GFR 93 >=60 mL/min/1.73 m?? [facility] Comment: The eGFR was calculated using the CKD-EP I equation. As with all creatinine based estimates of kidney function, eGFR values calculated with the CKD-EPI equation are not accurate in patients wi th acute kidney failure, extremes of body mass or the acutely ill. [email or web address] eGFR 107 >=60 mL/min/1.73 m?? [facility] Comment: The eGFR was calculated using the CKD-EP I equation. As with all creatinine based estimates of kidney function, eGFR values calculated with the CKD-EPI equation are not accurate in patients wi th acute kidney failure, extremes of body mass or the acutely ill. [email or web address] – TULSAnkf Specimen Anatomical Collection Method Collection Time Receive d Time (Source) Location / / Volume Laterality Blood specimen 01/31/2019 3:38 AM 019 4:28 (specimen) EDT AM EDT Resulting Agency Comment Spec In Lab Rafa Malik MD CHEMISTRY ORDERABLES Performing Organization Address City/State/[place] [address] POCT Glucose (01/30/2019 8:28 PM EDT) P athologist Signature POC Glucose 142 65 - 199 [facility] mg/dL [facility] Comment: Supplemental ranges: <140 mg/dL before meals <180 mg/dL all other times of the day Specimen Anatomical Collection Method Collection Time Receive d Time (Source) Location / / Volume Laterality Blood specimen 01/30/2019 8:28 PM 019 8:28 (specimen) EDT PM EDT Lizz Cabrera MD POINT OF CARE TEST ORDERABLE S Performing Organization Address City/State/ZIP Code Phon e Number [place] [id number] HOSPITAL LAB[address] Drive XR Chest PA & [...] For questions regarding this report, please contact [facility] number below. ? Electronically signed by: Francisca de oliveira MD, [facility] ([phone]), at 01/30/2019 6:46 PM Narrative 01/30/2019 6:46 [...] original. EXAMINATION: XR CHEST PA AND LATERAL (Blushr NERIC) CLINICAL HISTORY: pre op CABG 68-year-old [...] Electronically signed by: Francisca de oliveira MD, [facility] ([phone]), at 01/30/2019 6:46 PM Kelly Oliveira APRN IMG DX ORDERABLES ABORH Recheck Status (01/30/2019 6:18 PM EDT) [facility] Method Time Signature ABORH Recheck Order Placed [facility] LABORATORY ABORH Type Complete [facility] LABORATORY Specimen Anatomical Collection Method Collection Time Receive d Time (Source) Location / / Volume Laterality Blood specimen 01/30/2019 6:18 PM 019 6:22 (specimen) EDT PM EDT Resulting Agency Comment Spec In Lab Rachele Steinbergfield [id number] PROGRAMMER ANALYST BLOOD BANK ORDERABLES Performing Organization Address City/[facility]/ZIP [place] [address] Antibody screen (01/30/2019 6:18 PM EDT) [facility] Method Time Signature Ab Screen Negative [facility] LABORATORY Expires at 02/02/2019 SHANNAN STANTON [id number] on: [facility] Specimen Anatomical Collection Method Collection Time Receive d Time (Source) Location / / Volume Laterality Blood specimen 01/30/2019 6:18 PM 019 6:22 (specimen) EDT PM EDT Resulting Agency Comment Spec In Lab [facility] BLOOD B[facility] ORDERABLES Performing Organization Address City/[facility]/ZIP [place] [address] ABO/Rh Typing (01/30/2019 6:18 PM EDT) athologist Signature ABORh Type B Pos [facility] Specimen Anatomical Collection Method Collection Time Receive d Time (Source) Location / / Volume Laterality Blood specimen 01/30/2019 6:18 PM 019 6:22 (specimen) EDT PM EDT Resulting Agency Comment Spec In Lab Rachele Steinbergfield BOYD BLOOD BANK ORDERABLES Performing Organization Address City/State/ZIP Code Phon e Number [address] POCT Glucose (01/30/2019 4:11 PM EDT) athologist Signature POC Glucose 135 65 - 199 [facility] mg[facility]dL [facility] Comment: Supplemental ranges: <140 mg/dL before meals <180 mg/dL all other times of the day Specimen Anatomical Collection Method Collection Time Receive d Time (Source) Location / / Volume Laterality Blood specimen 01/30/2019 4:11 PM 019 4:11 (specimen) EDT PM EDT Lizz Cabrera MD POINT OF CARE TEST ORDERABLE S Performing Organization Address City/State/ZIP Code Phon e Number [address] POCT Glucose (01/30/2019 11:29 AM EDT) athologist Signature POC Glucose 156 65 - [address] [facility] Comment: Supplemental ranges: <140 mg/dL before meals <180 mg/dL all other times of the day Specimen Anatomical Collection Method Collection Time Receive d Time (Source) Location / / Volume Laterality Blood specimen 01/30/2019 11:29 9 (specimen) AM EDT 11:29 AM EDT Lizz Cabrera MD POINT OF CARE TEST ORDERABLE S Performing Organization Address City/State/ZIP Code Phon e Number [address] POCT Glucose (01/30/2019 7:23 AM EDT) athologist Signature POC Glucose 188 65 - 199 [facility] Comment: Supplemental ranges: <140 mg/dL before meals <180 mg/dL all other times of the day Specimen Anatomical Collection Method Collection Time Receive d Time (Source) Location / / Volume Laterality Blood specimen 01/30/2019 7:23 AM 019 7:23 (specimen) EDT AM EDT Lizz Cabrera MD POINT OF CARE TEST ORDERABLE S Performing Organization Address City/State/[place] [address] EKG 12 Lead (01/30/2019 6:53 AM EDT) Component Value Ref Range Test Analysis Performed Pathologis t Method Time At Signature Ventricular rate 60 BPM MUSE SYSTEM Atrial Rate 60 BPM MUSE SYSTEM P-R Interval 220 ms MUSE SYSTEM QRS Duration 124 ms MUSE SYSTEM Q-T Interval 438 ms MUSE SYSTEM QTC Calculated 438 ms MUSE SYSTEM (Bezet) Calculated P [place] 101 degrees MUSE SYSTEM Calculated R [place] -65 degrees MUSE SYSTEM Calculated T [place] 124 degrees MUSE SYSTEM INTERPRETATION Sinus rhythm with 1st degree A-V block MUSE SYSTEM Left anterior fascicular block Anterolateral MO ??(cited on or before 21-JUL-2018) Possible ??Inferior [...] Signature POC Glucose 140 65 - 199 [facility] Comment: Supplemental ranges: <140 mg/dL before meals <180 mg/dL all other times of the day Specimen Anatomical Collection Method Collection Time Receive d Time (Source) Location / / Volume Laterality Blood specimen 01/29/2019 8:27 PM 019 8:27 (specimen) EDT PM EDT Lizz Cabrera MD POINT OF CARE TEST ORDERABLE S Performing Organization Address City/State/ZIP [place] [address] POCT Glucose (01/29/2019 4:39 PM EDT) athologist Signature POC Glucose 150 65 - 199 [facility] [place] mg/dL [facility] Comment: Supplemental ranges: <140 mg/dL before meals <180 mg/dL all other times of the day Specimen Anatomical Collection Method Collection Time Receive d Time (Source) Location / / Volume Laterality Blood specimen 01/29/2019 4:39 PM 019 4:39 (specimen) EDT PM EDT Lizz Cabrera MD POINT OF CARE TEST ORDERABLE S Performing Organization Address City/State/ZIP [place] [address] POCT Glucose (01/29/2019 12:12 PM EDT) athologist Signature POC Glucose 192 65 - 199 [facility] [place] mg/dL [facility] Comment: Supplemental ranges: <140 mg/dL before meals <180 mg/dL all other times of the day Specimen Anatomical Collection Method Collection Time Receive d Time (Source) Location / / Volume Laterality Blood specimen 01/29/2019 12:12 9 (specimen) PM EDT 12:12 PM EDT Lizz Cabrera MD POINT OF CARE TEST ORDERABLE S Performing Organization Address City/State/ZIP [place] [address] (ABNORMAL) BLOOD GAS 2 ARTERIAL (01/29/2019 9:13 AM EDT) athologist Signature pH Art 7.43 7.35 - [facility] 7.45 [facility] pCO2 Art 34 (L) 35 - 45 [facility] LABORATORY pO2 Art 82 (L) 85 - 104 [facility] LABORATORY HCO3 Art 21.8 20.0 - [facility] 26.0 [facility] mmol/[facility] BE Art -2.6 -3.0 - 3.0 [facility] mmol/L [facility] Hgb Blood Gas 14.1 13.7 - [facility] 16.5 gm/dL [facility] O2HB Art 94.3 94.0 - [facility] 97.0 % [facility] COHB Art 0.8 % [facility] Comment: Nonsmokers: 0.5-1.5% COHB Smokers: Variable, but usually less than 10% Toxic: 20-30% COHB Lethal: Greater than 60% COHB METHB Art 0.6 <=1.5 % [facility] Na Whole Blood 135 135 - 145 mmol/L [facility] K Whole Blood 4.6 3.5 - 5.0 mmol/L [facility] Comment: Please note: Patients with WBC >100,000 may have falsely elevated Potassium levels. Contact the Clinical Chemistry L aboratory if there are any questions. ICa Whole Blood 1.12 (L) 1.15 - 1.33 mmol/L [facility] Comment: Note: ??Total bilirubin higher than 20 m g/dL may lead to falsely low ionized calcium. CL Whole Blood 101 98 - 107 mmol/L [facility] Gluc Whole Bld 289 (H) 65 - 199 mg/dL [facility] Comment: Diabetes: >=200 mg/dL plus symp toms. Lactate WB 2.9 (H) 0.5 - 2.2 mmol/L [facility] Specimen Anatomical Collection Method Collection Time Receive d Time (Source) Location / / Volume Laterality Blood specimen 01/29/2019 9:13 AM 019 9:13 (specimen) EDT AM EDT Lizz Cabrera MD CHEMISTRY ORDERABLES Performing Organization Address City/State/[place] [address] Lower extremity vein fito puentes (01/29/2019 8:32 AM EDT) Component Value Ref Test Analysis Performed At [facility] gist Range Method Time Signature VB Text Department: Vascular Surgery Lab VASCUBASE Report Patient: [id number] (CONNOR GAN) CPT: 71361 ICD10: I25.110;Z01.818 Referring Physician: KELLY OLIVEIRA ?? [...] Signature POC Glucose 194 65 - 199 [facility] mg/dL [facility] Comment: Supplemental ranges: <140 mg/dL before meals <180 mg/dL all other times of the day Specimen Anatomical Collection Method Collection Time Receive d Time (Source) Location / / Volume Laterality Blood specimen 01/29/2019 7:44 AM 019 7:44 (specimen) EDT AM EDT Lizz Cabrera MD POINT OF CARE TEST ORDERABLE S Performing Organization Address City/[facility]/ZIP [place] [address] EKG 12 Lead (01/29/2019 7:11 AM EDT) Component Value Ref Range Test Analysis Performed Pathologis t Method Time At Signature Ventricular rate 70 BPM MUSE SYSTEM Atrial Rate 70 BPM MUSE SYSTEM P-R Interval 204 ms MUSE SYSTEM QRS Duration 118 ms MUSE SYSTEM Q-T Interval 414 ms MUSE SYSTEM QTC Calculated 447 ms MUSE SYSTEM (Bezet) Calculated P [place] -8 degrees MUSE SYSTEM Calculated R [place] -62 degrees MUSE SYSTEM Calculated T [place] 123 degrees MUSE SYSTEM INTERPRETATION Normal sinus rhythm MUSE SYSTEM Left axis deviation Anterolateral infarct (cited on or before 21-JUL-2018) Inferior infarct Abnormal ECG When compared with ECG of 28-JAN-2019 06:12, AR interval has decreased T wave inversion less evident in Lateral leads Inferior infarct pattern is new Confirmed by Kuvin, MD, Jose Gaston ([id number]) on 01/29/2019 9:44: 12 AM Specimen Anatomical Collection Method Collection Time Receive d Time (Source) Location / / Volume Laterality 01/29/2019 7:11 AM 9 9:44 EDT AM EDT Lizz Cabrera MD ECG ORDERABLES Performing Organization Address City/State/ZIP Code Phon e Number MUSE SYSTEM (ABNORMAL) Differential, Automated (01/29/2019 4:43 AM EDT) [facility] gist Method Time Signature Neutrophils % 49.2 % [facility] Neutr Abs (ANC) 5.05 1.70 - [facility] 6.10 [facility] x10(3)/[facility] LABORATORY Lymphocytes % 39.4 % [facility] Lymphocytes Abs 4.0 (H) 0.9 - 3.2 [facility] x10(3)/[facility] LABORATORY Monocytes % 8.4 % [facility] Monocyte Abs 0.9 0.3 - 0.9 [facility] x10(3)/[facility] LABORATORY Eosinophils % 1.9 % [facility] Eosinophils Abs 0.2 0.0 - 0.4 [facility] x10(3)/[facility] LABORATORY Basophils % 0.6 % [facility] Basophils Abs 0.1 0.0 - 0.1 [facility] x10(3)/[facility] LABORATORY Immature Gran % 0.50 % [facility] Comment: Immature granulocytes(IG's)percentage an d absolute count will include metamyelocytes, myelocytes, and promyelo cytes. Blood smears from CBCs yielding IG's will be scanned manually for concor dance. If this scan disagrees with the automated IG or if promyelocytes are not ed, a manual differential will be performed. Corinne Gran Abs 0.05 (H) 0.00 - 0.04 x10(3)/[facility] LABORATORY Specimen Anatomical Collection Method Collection Time Receive d Time (Source) Location / / Volume Laterality Blood specimen 01/29/2019 4:43 AM 019 4:55 (specimen) EDT AM EDT Resulting Agency Comment Spec In Lab Galindo Bell MD HEMATOLOGY ORDERABLES Performing Organization Address City/State/ZIP Code Phon e Number [address] (ABNORMAL) Hemogram (01/29/2019 4:43 AM EDT) Analysis Performed At Patho logist Time Signature WBC 10.3 (H) 4.0 - 9.5 [facility] LABORATORY RBC 4.33 (L) 4.58 - [place] 5.54 [facility] x10(6)/[facility] LABORATORY Hemoglobin 13.2 (L) 13.7 - [facility] 16.5 gm/dL [facility] Hematocrit 38.1 (L) 40.5 - [facility] 48.5 % [facility] MCV 88.0 82.9 - [facility] 93.1 [facility] LABORATORY MCH 30.5 27.5 - [place] 32.1 pg [facility] MCHC 34.6 32.0 - [place] 35.7 gm/dL [facility] Platelets 201 145 - 357 [facility] x10(3)/[facility] LABORATORY RDWSD 42.5 36.0 - [facility] 45.0 [facility] LABORATORY RDWCV 13.2 11.4 - [facility] 13.8 % [facility] MPV 10.6 7.6 - 12.9 [facility] LABORATORY nRBC % Auto 0.0 % [facility] nRBC Abs Auto 0.000 0.000 - [facility] 0.000 [facility] x10(3)/[facility] LABORATORY Specimen Anatomical Collection Method Collection Time Receive d Time (Source) Location / / Volume Laterality Blood specimen 01/29/2019 4:43 AM 019 4:55 (specimen) EDT AM EDT Resulting Agency Comment Spec In Lab Galindo Bell MD HEMATOLOGY ORDERABLES Performing Organization Address City/State/ZIP Code Phon e Number [address] (ABNORMAL) BMP w/fasting Glucose (01/29/2019 4:43 AM EDT) athologist Signature Glucose 178 (H) 65 - 99 [facility] Fasting mg/dL [facility] Comment: ?Fasting* Glucose Interpretive C [...] of Diabetes Mellitus, Position Statement from the [place] [employer]. ??Diabete s Care, Volume 33, Supplement 1, Aug 2009 BUN 18 10 - 20 mg/dL [facility] Creatinine 0.88 0.80 - 1.50 mg/dL [facility] Sodium 138 135 - 145 mmol/L [facility] Potassium 4.6 3.5 - 5.0 mmol/L [facility] Comment: Please note: ??Patients with WBC >100,00 0 may have falsely elevated Potassium levels. ??For accurate Potassium quantif ication in these patients send serum separator tube (gold top) for subsequent determinations. ??Contact the Clinical Chemistry Laboratory if there are any qu estions. Chloride 105 98 - 107 mmol/L [facility] CO2 23 22 - 31 mmol/L [facility] Anion Gap 10 5 - 15 mmol/L [facility] Calcium 8.7 8.5 - 10.5 mg/dL [facility] Estimated GFR 90 >=60 mL/min/1.73 m?? [facility] Comment: The eGFR was calculated using the CKD-EP I equation. As with all creatinine based estimates of kidney function, eGFR values calculated with the CKD-EPI equation are not accurate in patients wi th acute kidney failure, extremes of body mass or the acutely ill. [email or web address]/[facility]kf eGFR 104 >=60 mL/min/1.73 m?? [facility] Comment: The eGFR was calculated using the CKD-EP I equation. As with all creatinine based estimates of kidney function, eGFR values calculated with the CKD-EPI equation are not accurate in patients wi th acute kidney failure, extremes of body mass or the acutely ill. [email or web address]/[facility]SAnkf Specimen Anatomical Collection Method Collection Time Receive d Time (Source) Location / / Volume Laterality Blood specimen 01/29/2019 4:43 AM 019 4:55 (specimen) EDT AM EDT Resulting Agency Comment Spec In Lab Lizz Cabrera MD CHEMISTRY ORDERABLES Performing Organization Address City/[facility] [place] [address] POCT Glucose (01/28/2019 8:18 PM EDT) athologist Signature POC Glucose 154 65 - [address] [facility] Comment: Supplemental ranges: <140 mg/dL before meals <180 mg/dL all other times of the day Specimen Anatomical Collection Method Collection Time Receive d Time (Source) Location / / Volume Laterality Blood specimen 01/28/2019 8:18 PM 019 8:18 (specimen) EDT PM EDT Lizz Cabrera MD POINT OF CARE TEST ORDERABLE S Performing Organization Address City/[facility] [place] [address] POCT Glucose (01/28/2019 4:53 PM EDT) athologist Signature POC Glucose 133 65 - 199 [facility] Comment: Supplemental ranges: <140 mg/dL before meals <180 mg/dL all other times of the day Specimen Anatomical Collection Method Collection Time Receive d Time (Source) Location / / Volume Laterality Blood specimen 01/28/2019 4:53 PM 019 4:53 (specimen) EDT PM EDT Lizz Cabrera MD POINT OF CARE TEST ORDERABLE S Performing Organization Address City/[facility]/[place] [address] (ABNORMAL) Differential, Automated (01/28/2019 1:35 PM EDT) [facility] Method Time Signature Neutrophils % 59.7 % [facility] Neutr Abs (ANC) 6.94 (H) 1.70 - [facility] 6.10 [facility] x10(3)/[facility] LABORATORY Lymphocytes % 29.6 % [facility] Lymphocytes Abs 3.4 (H) 0.9 - 3.2 [facility] x10(3)/[facility] LABORATORY Monocytes % 7.2 % [facility] Monocyte Abs 0.8 0.3 - 0.9 [facility] x10(3)/[facility] LABORATORY Eosinophils % 2.2 % [facility] Eosinophils Abs 0.2 0.0 - 0.4 [facility] x10(3)/[facility] LABORATORY Basophils % 0.7 % [facility] Basophils Abs 0.1 0.0 - 0.1 [facility] x10(3)/[facility] LABORATORY Immature Gran % 0.60 % [facility] Comment: Immature granulocytes(IG's)percentage an d absolute count will include metamyelocytes, myelocytes, and promyelo cytes. Blood smears from CBCs yielding IG's will be scanned manually for concor dance. If this scan disagrees with the automated IG or if promyelocytes are not ed, a manual differential will be performed. Corinne Gran Abs 0.07 (H) 0.00 - 0.04 x10(3)/[facility] LABORATORY Specimen Anatomical Collection Method Collection Time Receive d Time (Source) Location / / Volume Laterality Blood specimen 01/28/2019 1:35 PM 019 1:41 (specimen) EDT PM EDT Resulting Agency Comment Spec In Lab Galindo Bell MD HEMATOLOGY ORDERABLES Performing Organization Address City/[facility]/[place] [address] (ABNORMAL) Hemogram (01/28/2019 1:35 PM EDT) Analysis Performed At Patho logist Time Signature WBC 11.6 (H) 4.0 - 9.5 [facility] LABORATORY RBC 4.60 4.58 - [place] 5.54 [facility] x10(6)/[facility] LABORATORY Hemoglobin 14.1 13.7 - [facility] 16.5 gm/dL [facility] Hematocrit 40.4 (L) 40.5 - [facility] 48.5 % [facility] MCV 87.8 82.9 - [facility] 93.1 [facility] LABORATORY MCH 30.7 27.5 [facility] 32.1 pg [facility] MCHC 34.9 32.0 [facility] 35.7 gm/dL [facility] Platelets 279 145 - 357 [facility] x10(3)/[facility] LABORATORY RDWSD 42.3 36.0 - [facility] 45.0 [facility] LABORATORY RDWCV 13.2 11.4 - [place] 13.8 % [facility] MPV 10.8 7.6 - 12.9 [facility] nRBC % Auto 0.0 % [facility] nRBC Abs Auto 0.000 0.000 - [place] 0.000 [facility] x10(3)/[facility] LABORATORY Specimen Anatomical Collection Method Collection Time Receive d Time (Source) Location / / Volume Laterality Blood specimen 01/28/2019 1:35 PM 019 1:41 (specimen) EDT PM EDT Resulting Agency Comment Spec In Lab Galindo Bell MD HEMATOLOGY ORDERABLES Performing Organization Address City/State/ZIP [place] [address] (ABNORMAL) BMP w/fasting Glucose (01/28/2019 1:35 PM EDT) P athologist Signature Glucose 122 (H) 65 - 99 [facility] Fasting mg/dL [facility] Comment: ?Fasting* Glucose Interpretive C [...] of Diabetes Mellitus, Position Statement from the [place] [employer]. ??Diabete s Care, Volume 33, Supplement 1, Aug 2009 BUN 14 10 - 20 mg/dL [facility] Creatinine 0.97 0.80 - 1.50 mg/dL [facility] Sodium 140 135 - 145 mmol/L [facility] Potassium 5.0 3.5 - 5.0 mmol/L [facility] Comment: Please note: ??Patients with WBC >100,00 0 may have falsely elevated Potassium levels. ??For accurate Potassium quantif ication in these patients send serum separator tube (gold top) for subsequent determinations. ??Contact the Clinical Chemistry Laboratory if there are any qu estions. Chloride 104 98 - 107 mmol/L [facility] CO2 22 22 - 31 mmol/L [facility] Anion Gap 14 5 - 15 mmol/L [facility] Calcium 9.0 8.5 - 10.5 mg/dL [facility] Estimated GFR 81 >=60 mL/min/1.73 m?? [facility] Comment: The eGFR was calculated using the CKD-EP I equation. As with all creatinine based estimates of kidney function, eGFR values calculated with the CKD-EPI equation are not accurate in patients wi th acute kidney failure, extremes of body mass or the acutely ill. [email or web address] eGFR 94 >=60 mL/min/1.73 m?? [facility] Comment: The eGFR was calculated using the CKD-EP I equation. As with all creatinine based estimates of kidney function, eGFR values calculated with the CKD-EPI equation are not accurate in patients wi th acute kidney failure, extremes of body mass or the acutely ill. [email or web address] Specimen Anatomical Collection Method Collection Time Receive d Time (Source) Location / / Volume Laterality Blood specimen 01/28/2019 1:35 PM 019 1:41 (specimen) EDT PM EDT Resulting Agency Comment Spec In Lab Lizz Cabrera MD CHEMISTRY ORDERABLES Performing Organization Address City/[facility]/ZIP [facility] Phon e Number [address] POCT Glucose (01/28/2019 11:18 AM EDT) athologist Signature POC Glucose 175 65 - 199 [facility] Comment: Supplemental ranges: <140 mg/dL before meals <180 mg/dL all other times of the day Specimen Anatomical Collection Method Collection Time Receive d Time (Source) Location / / Volume Laterality Blood specimen 01/28/2019 11:18 9 (specimen) AM EDT 11:18 AM EDT Lizz Cabrera MD POINT OF CARE TEST ORDERABLE S Performing Organization Address [facility]/ZIP Code Phon e Number [address] POCT Glucose (01/28/2019 7:52 AM EDT) athologist Signature POC Glucose 193 65 - 199 [facility] mg/dL [facility] Comment: Supplemental ranges: <140 mg/dL before meals <180 mg/dL all other times of the day Specimen Anatomical Collection Method Collection Time Receive d Time (Source) Location / / Volume Laterality Blood specimen 01/28/2019 7:52 AM 019 7:52 (specimen) EDT AM EDT Lizz Cabrera MD POINT OF CARE TEST ORDERABLE S Performing Organization Address City/[facility]/ZIP Code Phon e Number [address] EKG 12 Lead (01/28/2019 6:12 AM EDT) [facility] gist Method Time Signature Ventricular rate 66 BPM MUSE SYSTEM Atrial Rate 66 BPM MUSE SYSTEM P-R Interval 236 ms MUSE SYSTEM QRS Duration 120 ms MUSE SYSTEM Q-T Interval 422 ms MUSE SYSTEM QTC Calculated 442 ms MUSE SYSTEM (Bezet) Calculated P [place] 13 degrees MUSE SYSTEM Calculated R [place] -47 degrees MUSE SYSTEM Calculated T [place] 152 degrees MUSE SYSTEM INTERPRETATION Sinus rhythm with 1st degree A-V block MUSE SYSTEM Left axis deviation Septal infarct (cited on or before 21-JUL-2018) Possible Lateral infarct (cited on or before 21-JUL-2018) Abnormal ECG When compared with ECG of 26-JAN-2019 22:23, AR interval has increased Confirmed by MD Jimmie, [...] Signature POC Glucose 154 65 - 199 [facility] mg/dL [facility] Comment: Supplemental ranges: <140 mg/dL before meals <180 mg/dL all other times of the day Specimen Anatomical Collection Method Collection Time Receive d Time (Source) Location / / Volume Laterality Blood specimen 01/27/2019 7:47 PM 019 7:47 (specimen) EDT PM EDT Lizz Cabrera MD POINT OF CARE TEST ORDERABLE S Performing Organization Address City/State/[place] [address] POCT Glucose (01/27/2019 4:48 PM EDT) athologist Signature POC Glucose 145 65 - 199 [facility] mg/dL [facility] Comment: Supplemental ranges: <140 mg/dL before meals <180 mg/dL all other times of the day Specimen Anatomical Collection Method Collection Time Receive d Time (Source) Location / / Volume Laterality Blood specimen 01/27/2019 4:48 PM 019 4:48 (specimen) EDT PM EDT Lizz Cabrera MD POINT OF CARE TEST ORDERABLE S Performing Organization Address City/State/ZIP Code [place] [address] ECHOCARDIOGRAM COMPLETE W CONTRAST (01/27/2019 3:22 PM EDT) P athologist Signature EF 45 [facility]ART[facility] SYSTEM Anatomical Region Laterality Modality Other Specimen (Source) Anatomical Location Collection Method / Collectio n Time Received Time / Laterality Volume 01/28/2019 Narrative 01/28/2019 1:12 PM EDT Procedure: ?Transthoracic Echocardiogram Patient: ?RUSLAN Vera ?(Age): 1950(68y) Med Rec#: ? [id number] ?Sex: ?M ? [facility] Loc: ? [facility] ?Ht / Wt: ??166(cm)/131(kg) Pt. Loc: ?Adult Floor ? BSA: ?2.32 Study Date: ?? 01/27/2019 ?Pt. Type: Inpatient Tape: ? Referring: JESSICA Reading: Wilton Roper ([id number]) Electric Crane Operator: Vikas Cooper MS, [facility] Diagnosis: *Ischemic cardiomyopathy (I25.5) *Non-ST elevation [...] E-wave Vmax ?0.8 ?m/sec ? MV deceleration [id number] ?msec ? MV A-wave Vmax ?0.9 ?m/sec [...] ? Mid-Inferior ?Hypokinetic ? Mid-Inferoseptal ?Hypokinetic ? [place]-Septal ? Akinetic ? [place]-Anterior ? Hypokinetic ? [place]-Lateral ?Hypokinetic ? [place]-Inferior ? Hypokinetic ? [place]-Tip ?Akinetic ? This report has been electronically sign ed by: _ Wilton Roper MD ? 01/28/2019 13:11: 32 Images reviewed and interpretation verif ied [facility] Procedure Note Wilton Roper MD - 01/28/2019 Procedure: Transthoracic Echocardiogram Patient: RUSLAN RIVERA(Age): [birth year]68y) Med Rec#: [id number] Sex: M Site Loc: [facility] Ht / Wt: 166(cm)/131(kg) Pt. Loc: Adult Floor BSA: 2.32 Study Date: 01/27/2019 Pt. Type: Inpatie nt Tape: Referring: JESSICA Reading: Wilton Roper ([id number]) Electric Crane Operator: Vikas Cooper MS, [facility] Diagnosis: *Ischemic cardiomyopathy (I25.5) *Non-ST elevation [...] MV E-wave Vmax 0.8 m/sec MV deceleration [id number] msec MV A-wave Vmax 0.9 m/sec MV E:A ratio 0.9 ratio LV E:e' septal ratio22.8 ratio LV E:e' lateral rati13.1 ratio Tricuspid Valve Value Units (Range) RAP 3 mmHg Wall Motion: Segment Name Rest Base-Anteroseptal Normal Base-Anterior Normal Base-Anterolateral Normal Base-Posterolateral Normal Base-Inferior Akinetic Base-Inferoseptal Hypokinetic Mid-Anteroseptal Hypokinetic Mid-Anterior Normal Mid-Anterolateral Normal Mid-Posterolateral Hypokinetic Mid-Inferior Hypokinetic Mid-Inferoseptal Hypokinetic [place]-Septal Akinetic [place]-Anterior Hypokinetic [place]-Lateral Hypokinetic [place]-Inferior Hypokinetic [place]-Tip Akinetic This report has been electronically sign ed by: _ Wilton Roper MD 01/28/2019 13:11:32 Images reviewed and interpretation verif ied [facility] Galindo Bell MD ECHO ORDERABLES CARDIAC CATHETERIZATION (01/27/2019 12:37 PM EDT) Anatomical Region Laterality Modality Other Specimen (Source) Anatomical Location Collection Method / Collectio n Time Received Time / Laterality Volume Narrative 01/27/2019 1:29 PM EDT ?[facility] ? Cardiac Cathete rization/Intervention Report ? Patient Name: RUSLANCONNOR ? Procedure Date: 01/27/2019 ? A #: [id number] ? Primary Physician: Taisha Watson ? Case #: [id number] ? File Name: [id number] ? Catheterization Order Number: [id number] ? [facility] ?[facility] ? Final Report [place], [place] ? Patient Name: ? CONNOR G. MATH IEU ?ID#: ?[id number] ? : ?1950 ? Procedure Date: ? [...] was designated as ASA ?Class III. The [facility] clinical fr ailty scale is 4. Vulnerable. [...] procedure was Urgent. The indication for ?the lab coordinator visit is worsening angina, stable known CAD [...] vident early complications. ?Results discussed with service salon professional Dr Lizz Cabrera, and with the ?patient and their family. Ema shultz sent to referring salon professional, ?Sundaran. ?The attending physician was sommer mccracken for the entire procedure. ?Dr. Taisha Watson [...] Last Ammended: 02/15/2019 ??16:28 ? Procedure Note Coylewright, Taisha J, MD - 02/15/2019For matting of this note might be different from the original. [facility] Cardiac Catheterization/Intervention Re port Patient Name: CONNOR GAN Procedure Date: 01/27/2019 A #: [id number] Primary Physician: Taisha Watson Case #: [id number] File Name: [id number] Catheterization Order Number: [id number] [facility] Final Report [place], [place] Patient Name: CONNOR GAN ID#: [id number] : 1950 Procedure Date: January 27, 2019 [...] Prior to the initiation of this procedure, e patient was designated as ASA Class III. The [facility] clinical frailty sc rahul is 4. Vulnerable. [...] e was Urgent. The indication for the lab coordinator visit is worsening angina, stable known CAD [...] their family. Letter sent t o referring salon professional, Dr Lambert. The attending physician was present [...] Heparin (unfractionated) Level (01/27/2019 11:10 AM EDT) P athologist Signature Heparin UFH 0.36 IU/mL [facility] LABORATORY Comment: Guidelines for therapeutic unfractionate d [...] Bell MD HEMATOLOGY ORDERABLES Performing Organization Address City/[facility]/ZIP Code Phon e Number [address] (ABNORMAL) POCT Glucose (01/27/2019 10:45 AM EDT) P athologist Signature POC Glucose 204 (H) 65 - 199 [facility] mg/dL [facility] LABORATORY Comment: Supplemental ranges: <140 mg/dL before meals <180 mg/dL all other times of the day Specimen Anatomical Collection Method Collection Time Receive d Time (Source) Location / / Volume Laterality Blood specimen 01/27/2019 10:45 9 (specimen) AM EDT 10:45 AM EDT Lizz Cabrera MD POINT OF CARE TEST ORDERABLE S Performing Organization Address City/[facility]/ZIP [place] [address] (ABNORMAL) POCT Glucose (01/27/2019 7:36 AM EDT) P athologist Signature POC Glucose 242 (H) 65 - 199 [facility] mg/dL [facility] LABORATORY Comment: Supplemental ranges: <140 mg/dL before meals <180 mg/dL all other times of the day Specimen Anatomical Collection Method Collection Time Receive d Time (Source) Location / / Volume Laterality Blood specimen 01/27/2019 7:36 AM 019 7:36 (specimen) EDT AM EDT Lizz Cabrera MD POINT OF CARE TEST ORDERABLE S Performing Organization Address City/State/[place] [address] (ABNORMAL) Differential, Automated (01/27/2019 4:08 AM EDT) [facility] Method Time Signature Neutrophils % 45.7 % [facility] LABORATORY Neutr Abs (ANC) 5.04 1.70 - [facility] 6.10 [facility] x10(3)/[facility] LABORATORY Lymphocytes % 42.8 % [facility] LABORATORY Lymphocytes Abs 4.7 (H) 0.9 - 3.2 [facility] x10(3)/[facility] LABORATORY Monocytes % 7.3 % [facility] LABORATORY Monocyte Abs 0.8 0.3 - 0.9 [facility] x10(3)/[facility] LABORATORY Eosinophils % 2.7 % [facility] LABORATORY Eosinophils Abs 0.3 0.0 - 0.4 [facility] x10(3)/[facility] LABORATORY Basophils % 0.7 % [facility] LABORATORY Basophils Abs 0.1 0.0 - 0.1 [facility] x10(3)/[facility] LABORATORY Immature Gran % 0.80 % [facility] LABORATORY Comment: Immature granulocytes(IG's)percentage an d absolute count will include metamyelocytes, myelocytes, and promyelo cytes. Blood smears from CBCs yielding IG's will be scanned manually for concor dance. If this scan disagrees with the automated IG or if promyelocytes are not ed, a manual differential will be performed. Corinne Gran Abs 0.09 (H) 0.00 - 0.04 x10(3)/[facility] LABORATORY Specimen Anatomical Collection Method Collection Time Receive d Time (Source) Location / / Volume Laterality Blood specimen 01/27/2019 4:08 AM 019 4:50 (specimen) EDT AM EDT Resulting Agency Comment Spec In Lab Galindo Bell MD HEMATOLOGY ORDERABLES Performing Organization Address City/State/ZIP [place] [address] (ABNORMAL) Hemogram (01/27/2019 4:08 AM EDT) Analysis Performed At Patho logist Time Signature WBC 11.0 (H) 4.0 - 9.5 [facility] x10(3)/[facility] LABORATORY RBC 4.20 (L) 4.58 - [facility] [place] 5.54 [facility] x10(6)/[facility] LABORATORY Hemoglobin 12.6 (L) 13.7 - [facility] 16.5 gm/dL [facility] LABORATORY Hematocrit 37.9 (L) 40.5 - [facility] RUPALI 48.5 % [facility] LABORATORY MCV 90.2 82.9 - [facility] 93.1 [facility] LABORATORY MCH 30.0 27.5 - [place] [place] 32.1 pg [facility] LABORATORY MCHC 33.2 32.0 [facility] 35.7 gm/dL [facility] LABORATORY Platelets 182 145 - 357 [facility] x10(3)/[facility] LABORATORY RDWSD 42.7 36.0 - [facility] 45.0 [facility] LABORATORY RDWCV 13.2 11.4 - [facility] RUPALI 13.8 % [facility] LABORATORY MPV 10.7 7.6 - 12.9 [facility] LABORATORY nRBC % Auto 0.0 % [facility] LABORATORY nRBC Abs Auto 0.000 0.000 - [facility] RUPALI 0.000 [facility] x10(3)/[facility] LABORATORY Specimen Anatomical Collection Method Collection Time Receive d Time (Source) Location / / Volume Laterality Blood specimen 01/27/2019 4:08 AM 019 4:50 (specimen) EDT AM EDT Resulting Agency Comment Spec In Lab Galindo Bell MD HEMATOLOGY ORDERABLES Performing Organization Address City/State/[place] [address] Lipid Panel (01/27/2019 4:08 AM EDT) athologist Signature Chol, Total 94 mg/dL [facility] LABORATORY Comment: Lower Risk: <200 mg/dL Average Risk: 200-239 mg/dL Higher Risk: >rs=608 mg/dL Triglycerides 277 mg/dL [facility] LABORATORY Comment: Average Risk/Lower Risk: <150 mg/dL Borderline High Risk: 150-199 mg/dL High Risk: 200-499 mg/dL Very High Risk: >dq=303 mg/dL HDL 37 mg/dL [facility] LABORATORY Comment: Males: ?? Higher Risk: <40 mg/dL Females: ?? HIgher Risk: <50 mg/dL LDL Cholesterol 2 mg/dL [facility] LABORATORY Comment: Lowest Risk: <100 mg/dL Lower Risk: 100-129 mg/dL Borderline High Risk: 130-159 mg/dL High Risk: 160-189 mg/dL Very High Risk: >kd=045 mg/dL Chol/HDL Ratio 2.5 ratio [facility] LABORATORY Lipid Interpretation See Note [facility] LABORATORY Comment: Lipid management should be guided by a p atient? s ASCVD risk, goals and preferences. ACC/AHA Guidelines recommend high intens ity statin if clinical ASCVD or LDL greater than or equal to 190 mg/dL. http://GoodRx.[employer]/HLB-BWL-Ppiaubalf Adults aged 40-75 with LDL 70-189 mg/dL should have their 10 year ASCVD risk estimated with the ACC/AHA ASCVD risk es timator http://tools.acc.org/MBFAI-Pptr-Yhnrmmcy r/ Statin should be discussed if risk [...] Bell MD CHEMISTRY ORDERABLES Performing Organization Address City/[facility]/ZIP Code Phon e Number [address] Creatinine (01/27/2019 4:08 AM EDT) P athologist Signature Creatinine 0.84 0.80 - [facility] 1.50 mg/dL [facility] LABORATORY Estimated GFR 91 >=60 [facility] mL/min/1.7 [facility] 3 m?? [facility] LABORATORY Comment: The eGFR was calculated using the CKD-EP I equation. As with all creatinine based estimates of kidney function, eGFR values calculated with the CKD-EPI equation are not accurate in patients wi th acute kidney failure, extremes of body mass or the acutely ill. http://Askem/[facility] – TULSAnkf eGFR 106 >=60 mL/min/1.73 m?? [facility] LABORATORY Comment: The eGFR was calculated using the CKD-EP I equation. As with all creatinine based estimates of kidney function, eGFR values calculated with the CKD-EPI equation are not accurate in patients wi th acute kidney failure, extremes of body mass or the acutely ill. http://Askem/DHnkf Specimen Anatomical Collection Method Collection Time Receive d Time (Source) Location / / Volume Laterality Blood specimen 01/27/2019 4:08 AM 019 4:50 (specimen) EDT AM EDT Resulting Agency Comment Spec In Lab Galindo Bell MD CHEMISTRY ORDERABLES Performing Organization Address City/[facility]/ZIP Code Phon e Number [address] (ABNORMAL) BUN (01/27/2019 4:08 AM EDT) P athologist Signature BUN 21 (H) 10 - 20 [facility] [place] mg/dL [facility] LABORATORY Specimen Anatomical Collection Method Collection Time Receive d Time (Source) Location / / Volume Laterality Blood specimen 01/27/2019 4:08 AM 019 4:50 (specimen) EDT AM EDT Resulting Agency Comment Spec In Lab Galindo Bell MD CHEMISTRY ORDERABLES Performing Organization Address City/[facility]/ZIP [place] [address] (ABNORMAL) Electrolytes panel (01/27/2019 4:08 AM EDT) athologist Signature Sodium 137 135 - 145 [facility] mmol/L [facility] LABORATORY Potassium 4.1 3.5 - 5.0 [facility] mmol/[facility] Comment: Please note: ??Patients with WBC >100,00 0 may have falsely elevated Potassium levels. ??For accurate Potassium quantif ication in these patients send serum separator tube (gold top) for subsequent determinations. ??Contact the Clinical Chemistry Laboratory if there are any qu estions. Chloride 103 98 - 107 mmol/L [facility] LABORATORY CO2 21 (L) 22 - 31 mmol/L [facility] LABORATORY Anion Gap 13 5 - 15 mmol/L [facility] LABORATORY Specimen Anatomical Collection Method Collection Time Receive d Time (Source) Location / / Volume Laterality Blood specimen 01/27/2019 4:08 AM 019 4:50 (specimen) EDT AM EDT Resulting Agency Comment Spec In Lab Galindo Bell MD CHEMISTRY ORDERABLES Performing Organization Address City/[facility]/ZIP [place] [address] (ABNORMAL) Glucose, fasting (01/27/2019 4:08 AM EDT) P athologist Signature Glucose 224 (H) 65 - 99 [facility] Fasting mg/dL [facility] LABORATORY Comment: ?Fasting* Glucose Interpretive C [...] of Diabetes Mellitus, Position Statement from the [place] [employer]. ??Diabete s Care, Volume 33, Supplement 1, Aug 2009 Specimen Anatomical Collection Method Collection Time Receive d Time (Source) Location / / Volume Laterality Blood specimen 01/27/2019 4:08 AM 019 4:50 (specimen) EDT AM EDT Resulting Agency Comment Spec In Lab Galindo Bell MD CHEMISTRY ORDERABLES Performing Organization Address City/[facility] [place] [address] LDL Cholesterol, Direct (01/27/2019 4:08 AM EDT) P athologist Signature LDL Chol 39 mg/dL [facility] LABORATORY Comment: Lowest Risk: <100 mg/dL Lower Risk: 100-129 mg/dL Borderline High Risk: 130-159 mg/dL High Risk: 160-189 mg/dL Very High Risk: >gh=418 mg/dL Specimen Anatomical Collection Method Collection Time Receive d Time (Source) Location / / Volume Laterality Blood specimen 01/27/2019 4:08 AM 019 4:50 (specimen) EDT AM EDT Resulting Agency Comment Spec In Lab Galindo Bell MD CHEMISTRY ORDERABLES Performing Organization Address City/[facility] [place] [address] (ABNORMAL) Hemoglobin A1c (01/27/2019 4:08 AM EDT) Analysis Performed At Patho logist Time Signature Hemoglobin A1C 7.2 (H) 4.3 - 5.6 [facility] LABORATORY Comment: Reference Range: 4.3 - [...] 1, S67-74 Est Avg Gluc 160 mg/dL [facility] LABORATORY Comment: eAG equivalents for HbA1c percentages: HbA1c(%) ?eAG(mg/dL) 6.0 ?126 6.5 ?140 7.0 ?154 7.5 ?169 8.0 ?183 8.5 ?197 9.0 ?212 9.5 ?226 10.0 ? 240 Limitations: The eAG calculation has not been validated on women, individuals below 18 years old and above 70 years old, and individuals with hemoglobinopathies. Additional resources are available on [facility] ADA website. David PENALOZA, Alisson J, Vladimir R, et al. ??Tr anslating the A1C assay into estimated average glucose values. ??Diabetes Care 2008:31(8):0795-5028. Specimen Anatomical Collection Method Collection Time Receive d Time (Source) Location / / Volume Laterality Blood specimen 01/27/2019 4:08 AM 019 4:50 (specimen) EDT AM EDT Resulting Agency Comment Spec In Lab Galindo Bell MD CHEMISTRY ORDERABLES Performing Organization Address City/State/[place] [address] APTT (01/27/2019 4:08 AM EDT) athologist Signature PTT 32 25 - 37 sec [facility] LABORATORY Comment: The PTT is NOT [...] Organization Address City/State/[place] [address] Heparin (unfractionated) Level (01/27/2019 4:08 AM EDT) P athologist Signature Heparin UFH 0.09 IU/mL [facility] LABORATORY Comment: Guidelines for therapeutic unfractionate d [...] Organization Address City/State/ZIP [place] [address] Troponin (01/27/2019 4:08 AM EDT) athologist Signature Troponin-T <0.01 0.00 - 0.00 [facility] ng/mL [facility] LABORATORY Comment: The 99th percentile for Troponin T is le ss than 0.01 ng/mL, any detectable cTnT concentration using this assay should be considered elevated. According to the third universal definit ion of myocardial infarction the following criteria with a clinical prese ntation consistent with acute myocardial ischemia meets the diagnosis for a myocardial infarction (MO). Detection of a rise and/or fall of [...] additional sample may be indicated. Reference: Third Sabula Definition of Myocardial Infarction. Journal of the [place] College [employer] 2012;60:1581-98 Specimen Anatomical Collection Method Collection Time Receive d Time (Source) Location / / Volume Laterality Blood specimen 01/27/2019 4:08 AM 019 4:50 (specimen) EDT AM EDT Resulting Agency Comment Spec In Lab Galindo Bell MD CHEMISTRY ORDERABLES Performing Organization Address City/State/ZIP Code Phon e Number [address] POCT Glucose (01/26/2019 10:36 PM EDT) athologist Signature POC Glucose 173 65 - 199 [facility] mg/dL [facility] LABORATORY Comment: Supplemental ranges: <140 mg/dL before meals <180 mg/dL all other times of the day Specimen Anatomical Collection Method Collection Time Receive d Time (Source) Location / / Volume Laterality Blood specimen 01/26/2019 10:36 9 (specimen) PM EDT 10:36 PM EDT Wilton Roper MD POINT OF CARE TEST ORDERABLE S Performing Organization Address City/State/[place] [address] EKG 12 Lead (01/26/2019 10:23 PM EDT) Component Value Ref Range Test Analysis Performed Pathologis t Method Time At Signature Ventricular rate 69 BPM MUSE SYSTEM Atrial Rate 69 BPM MUSE SYSTEM P-R Interval 206 ms MUSE SYSTEM QRS Duration 120 ms MUSE SYSTEM Q-T Interval 416 ms MUSE SYSTEM QTC Calculated 445 ms MUSE SYSTEM (Bezet) Calculated P [place] 48 degrees MUSE SYSTEM Calculated R [place] -59 degrees MUSE SYSTEM Calculated T [place] 131 degrees MUSE SYSTEM INTERPRETATION Normal sinus [...] P athologist Signature Heparin UFH 0.05 IU/mL [facility] LABORATORY Comment: Guidelines for therapeutic unfractionate d [...] Bell MD HEMATOLOGY ORDERABLES Performing Organization Address City/[facility]/ZIP Code Phon e Number [address] Scan, Peripheral Blood (01/26/2019 10:21 PM EDT) [facility] [employer] Method Time Signature Plat Estimate Normal [facility] LABORATORY RBC Morphology Abnormal [facility] LABORATORY Ovalocytes 1-5 /HPF [facility] LABORATORY Tear Drop Cells 1-5 /HPF [facility] LABORATORY Freedom Cells 1-5 /HPF [facility] LABORATORY Specimen Anatomical Collection Method Collection Time Receive d Time (Source) Location / / Volume Laterality Blood specimen 01/26/2019 10: 9 (specimen) PM EDT 10:28 PM EDT Resulting Agency Comment Spec In Lab Galindo Bell MD HEMATOLOGY ORDERABLES Performing Organization Address City/[facility]/ZIP [place] [address] (ABNORMAL) Differential, Automated (01/26/2019 10:21 PM EDT) [facility] [employer] Method Time Signature Neutrophils % 45.8 % [facility] LABORATORY Neutr Abs (ANC) 5.69 1.70 - [facility] 6.10 [facility] x10(3)/[facility] LABORATORY Lymphocytes % 44.3 % [facility] LABORATORY Lymphocytes Abs 5.5 (H) 0.9 - 3.2 [facility] x10(3)/[facility] LABORATORY Monocytes % 6.3 % [facility] LABORATORY Monocyte Abs 0.8 0.3 - 0.9 [facility] x10(3)/[facility] LABORATORY Eosinophils % 2.3 % [facility] LABORATORY Eosinophils Abs 0.3 0.0 - 0.4 [facility] x10(3)/[facility] LABORATORY Basophils % 0.7 % [facility] LABORATORY Basophils Abs 0.1 0.0 - 0.1 [facility] x10(3)/[facility] LABORATORY Immature Gran % 0.60 % [facility] LABORATORY Comment: Immature granulocytes(IG's)percentage an d absolute count will include metamyelocytes, myelocytes, and promyelo cytes. Blood smears from CBCs yielding IG's will be scanned manually for concor dance. If this scan disagrees with the automated IG or if promyelocytes are not ed, a manual differential will be performed. Corinne Gran Abs 0.08 (H) 0.00 - 0.04 x10(3)/[facility] LABORATORY Specimen Anatomical Collection Method Collection Time Receive d Time (Source) Location / / Volume Laterality Blood specimen 01/26/2019 10:21 9 (specimen) PM EDT 10:28 PM EDT Resulting Agency Comment Spec In Lab Galindo Bell MD HEMATOLOGY ORDERABLES Performing Organization Address City/State/[place] [address] (ABNORMAL) Hemogram (01/26/2019 10:21 PM EDT) Analysis Performed At Patho logist Time Signature WBC 12.4 (H) 4.0 - 9.5 [facility] x10(3)/[facility] LABORATORY RBC 4.68 4.58 - [facility] 5.54 [facility] x10(6)/[facility] LABORATORY Hemoglobin 14.1 13.7 - [facility] 16.5 gm/dL [facility] LABORATORY Hematocrit 41.6 40.5 - [facility] 48.5 % [facility] LABORATORY MCV 88.9 82.[address] [facility]1 [facility] LABORATORY MCH 30.1 27.5 - [facility] 32.1 pg [facility] LABORATORY MCHC 33.9 32.0 - [place] 35.7 gm/dL [facility] LABORATORY Platelets 228 145 - 357 [facility] x10(3)/[facility] LABORATORY RDWSD 42.8 36.0 - [facility] 45.0 [facility] LABORATORY RDWCV 13.2 11.4 - [facility] [place] 13.8 % [facility] LABORATORY MPV 10.7 7.6 - 12.9 [facility] LABORATORY nRBC % Auto 0.0 % [facility] LABORATORY nRBC Abs Auto 0.000 0.000 - [place] RUPALI 0.000 [facility] x10(3)/[facility] LABORATORY Specimen Anatomical Collection Method Collection Time Receive d Time (Source) Location / / Volume Laterality Blood specimen 01/26/2019 10: 9 (specimen) PM EDT 10:28 PM EDT Resulting Agency Comment Spec In Lab Galindo Bell MD HEMATOLOGY ORDERABLES Performing Organization Address City/[facility]/ZIP [place] [address] CK (01/26/2019 10:21 PM EDT) athologist [facility] CK, Total 133 0 - [address] [facility]/L [facility] LABORATORY Specimen Anatomical Collection Method Collection Time Receive d Time (Source) Location / / Volume Laterality Blood specimen 01/26/2019 10:21 9 (specimen) PM EDT 10:28 PM EDT Resulting Agency Comment Spec In Lab Galindo Bell MD CHEMISTRY ORDERABLES Performing Organization Address City/[facility]/ZIP [place] [address] (ABNORMAL) Troponin (01/26/2019 10:21 PM EDT) athologist [facility] Troponin-T 0.01 (H) 0.00 - [place] RUPALI 0.00 ng/mL [facility] LABORATORY Comment: The 99th percentile for Troponin T is le ss than 0.01 ng/mL, any detectable cTnT concentration using this assay should be considered elevated. According to the third universal definit ion of myocardial infarction the following criteria with a clinical prese ntation consistent with acute myocardial ischemia meets the diagnosis for a myocardial infarction (MO). Detection of a rise and/or fall of [...] additional sample may be indicated. Reference: Third [place] Definition of Myocardial Infarction. Journal of the [place] [employer] 2012;60:1581-98 Specimen Anatomical Collection Method Collection Time Receive d Time (Source) Location / / Volume Laterality Blood specimen 01/26/2019 10: 9 (specimen) PM EDT 10:28 PM EDT Resulting Agency Comment Spec In Lab Galindo Bell MD CHEMISTRY ORDERABLES Performing Organization Address City/State/ZIP [place] [address] (ABNORMAL) TSH (01/26/2019 10:21 PM EDT) P athologist Signature TSH 15.65 (H) 0.27 - [place] [place] 4.20 [facility] mcIU/mL HOSPITAL LABORATORY Specimen Anatomical Collection Method Collection Time Receive d Time (Source) Location / / Volume Laterality Blood specimen 01/26/2019 10:21 9 (specimen) PM EDT 10:28 PM EDT Resulting Agency Comment Spec In Lab Galindo Bell MD CHEMISTRY ORDERABLES Performing Organization Address City/[facility]/ZIP [place] [address] Magnesium (01/26/2019 10:21 PM EDT) athologist Signature Magnesium 0.71 0.69 - 1.07 [facility] mmol/L [facility] Specimen Anatomical Collection Method Collection Time Receive d Time (Source) Location / / Volume Laterality Blood specimen 01/26/2019 10:21 9 (specimen) PM EDT 10:28 PM EDT Resulting Agency Comment Spec In Lab Galindo Bell MD CHEMISTRY ORDERABLES Performing Organization Address City/[facility]/ZIP [place] [address] Hepatic Function Panel (01/26/2019 10:21 PM EDT) athologist [facility] Total Protein 7.3 6.1 - 8.0 [facility] gm/dL [facility] Albumin 4.4 3.2 - 5.2 [facility] gm/dL [facility] AST 24 0 - 39 [facility] unit/L [facility] ALT 32 0 - 55 [facility] unit/L [facility] Alk Phos 47 40 - 120 [facility] unit/L [facility] Total 0.5 0.2 - 1.3 [facility] Bilirubin mg/dL [facility] Bili, Direct 0.1 0.0 - 0.3 [facility] mg/dL [facility] Specimen Anatomical Collection Method Collection Time Receive d Time (Source) Location / / Volume Laterality Blood specimen 01/26/2019 10: 9 (specimen) PM EDT 10:28 PM EDT Resulting Agency Comment Spec In Lab Galindo Bell MD CHEMISTRY ORDERABLES Performing Organization Address City/[facility]/ZIP Code Phon e Number [place] [phone] APTT (01/26/2019 10:21 PM EDT) athologist Signature PTT 28 25 - 37 sec [facility] Comment: The PTT is NOT [...] Organization Address City/State/ZIP [place] [address] (ABNORMAL) Prothrombin Time (01/26/2019 10:21 PM EDT) P athologist Signature PT 12.7 (H) 9.4 - 12.5 [facility] LABORATORY INR 1.1 [facility] Comment: An INR <2.0 indicates [...] Bell MD HEMATOLOGY ORDERABLES Performing Organization Address City/[facility]/ZIP [place] [address] (ABNORMAL) pro-Brain Natriuretic Peptide (01/26/2019 10:21 PM EDT) P athologist Signature ProBNP 394 (H) <=125 pg/mL [facility] Specimen Anatomical Collection Method Collection Time Receive d Time (Source) Location / / Volume Laterality Blood specimen 01/26/2019 10:21 9 (specimen) PM EDT 10:28 PM EDT Resulting Agency Comment Spec In Lab Galindo Bell MD CHEMISTRY ORDERABLES Performing Organization Address City/[facility]/ZIP [place] [address] (ABNORMAL) BMP w/fasting Glucose (01/26/2019 10:21 PM EDT) athologist Signature Glucose 171 (H) 65 - 99 [facility] Fasting mg/dL [facility] Comment: ?Fasting* Glucose Interpretive C [...] of Diabetes Mellitus, Position Statement from the [place] [employer]. ??Diabete s Care, Volume 33, Supplement 1, Aug 2009 BUN 22 (H) 10 - 20 mg/dL [facility] Creatinine 0.94 0.80 - 1.50 mg/dL [facility] Sodium 136 135 - 145 mmol/L [facility] Potassium 4.5 3.5 - 5.0 mmol/L [facility] Comment: Please note: ??Patients with WBC >100,00 0 may have falsely elevated Potassium levels. ??For accurate Potassium quantif ication in these patients send serum separator tube (gold top) for subsequent determinations. ??Contact the Clinical Chemistry Laboratory if there are any qu estions. Chloride 101 98 - 107 mmol/L [facility] CO2 22 22 - 31 mmol/L [facility] Anion Gap 13 5 - 15 mmol/L [facility] Calcium 9.4 8.5 - 10.5 mg/dL [facility] Estimated GFR 84 >=60 mL/min/1.73 m?? [facility] Comment: The eGFR was calculated using the CKD-EP I equation. As with all creatinine based estimates of kidney function, eGFR values calculated with the CKD-EPI equation are not accurate in patients wi th acute kidney failure, extremes of body mass or the acutely ill. [email or web address]/[facility]ULSAnkf eGFR 98 >=60 mL/min/1.73 m?? [facility] Comment: The eGFR was calculated using the CKD-EP I equation. As with all creatinine based estimates of kidney function, eGFR values calculated with the CKD-EPI equation are not accurate in patients wi th acute kidney failure, extremes of body mass or the acutely ill. http://Askem/[facility] TULSAnkf Specimen Anatomical Collection Method Collection Time Receive d Time (Source) Location / / Volume Laterality Blood specimen 01/26/2019 10:21 9 (specimen) PM EDT 10:28 PM EDT Resulting Agency Comment Spec In Lab Galindo Bell MD CHEMISTRY ORDERABLES Performing Organization Address City/State/ZIP [place] [address] documented in this encounter [...] Given 02/03/2019 5:26 PM EDT 80 mg clopidogrel (PLAVIX) tablet 75 mg Given 02/06/2019 [...] the duration of the active insulin., Routine fentaNYL 50 mcg/mL multi-dose injection Given 01/27/2019 11:58 AM EDT 12.5 mcg ONCE PRN, Starting on 01/27/19 at 1154, Until 01/27/19 at 1204, Cath (Intra-Procedure), Routine Given 01/27/2019 11:54 AM EDT 12.5 mcg fentaNYL 50 mcg/mL multi-dose injection Given 01/27/2019 12:10 PM EDT 25 mcg ONCE PRN, Starting on 01/27/19 at 1210, Until 01/27/19 at 1228, Intra-Operative (Intra-Procedure), Routine furosemide (LASIX) tablet 20 mg Given 02/06/2019 8:54 AM EDT 20 mg 20 mg, Oral, DAILY, First dose on Tue02/06/19 at 0900, Until Discontinued, Routine gabapentin (NEURONTIN) capsule 300 mg Given 02/06/2019 8:54 AM EDT 300 mg 300 mg, Oral, 3 TIMES DAILY, First dose on Rosalia 02/01/19 at 1500, Until Discontinued, Routine Given 02/05/2019 [...] EVERY 30 MIN PRN, Start ing on 02/05/19 at 1124, Until Tue02/06/19 at 1630, [...] 5 grams., Routine heparin (porcine) injection Given 01/27/2019 12:05 PM EDT 8,000 Units ONCE PRN, Starting on 01/27/19 at 1205, Until 01/27/19 at 1228, Cath (Intra-Procedure), Routine insulin glargine VIAL injection 50 Units Given [...] Given 02/05/2019 5:38 PM EDT 14 Units iohexol (OMNIPAQUE) 350 mg/mL solution Given 01/27/2019 12:26 PM EDT 40 mLs ONCE PRN, Starting on 01/27/19 at 1226, Until 01/27/19 at 1228, Cath (Intra-Procedure), Routine magnesium hydroxide (Milk of Magnesia) (240 Given 02/04/2019 8:30 AM EDT 10 mLs mg/mL) oral liquid 10 mL 10 mL, Oral, DAILY, First dose on Tue02/02/19 at 0900, Until Discontinued, Post-op day 2. Do not use with renal insufficiency., Routine Given 02/03/2019 9:30 AM EDT 10 mLs Given 02/02/2019 8:22 AM EDT 10 mLs metoprolol (LOPRESSOR) tablet 12.5 mg Given 02/06/2019 [...] AM EDT Given 02/04/2019 9:48 PM EDT midazolam (PF) (VERSED) multi-dose injec tion Given 01/27/2019 11:58 AM EDT 0.5 mg ONCE PRN, Starting on 01/27/19 at 1154, Until 01/27/19 at 1204, Cath (Intra-Procedure), Routine Given 01/27/2019 11:54 AM EDT 0.5 mg oxyCODONE (ROXICODONE) immediate release tablet Given 02/05/2019 [...] Given 02/04/2019 8:30 AM EDT 50 mg verapamil (ISOPTIN) injection Given 01/27/2019 12:03 PM EDT 2.5 mg ONCE PRN, Starting on 01/27/19 at 1203, Until 01/27/19 at 1204, Administer over 2 Minutes, Cath (Intra-Procedure) documented in this encounter Active and Recently Administered Medications Times are shown in EDT. Scheduled Medication Order 02/04/2019 02/05/2019 02/06/2019 acetaminophen (TYLENOL) tablet 1,000 mg 0058 (Given - Provider: Giles Hawthorne RN)0549 (Given - Provider: Giles Hawthorne, RN)1147 (Given - Provider: Alejandro Connell RN)1748 (Given - Provider: Alejandro Connell RN) 0010 (Given - Provider: Gladis Ogden RN)0532 (Given - Provider: Gladis Ogden, JACEY)1143 (Given - Provider: Jacqueline Zelaya RN)1738 (Given - Provider: Jacqueline Zelaya RN) 0035 (Given - Provider: Gladis cazares RN)0622 (Given - Provider: Gldais Ogden RN)1159 (Given - Provider: Jacqueline Zelaya [...] mg, Oral, DAILY, First dose on Rosalia at 0900, Until Discontinued, Routine furosemide (LASIX) [...] 0830 (Given - Pr ovider: Myra Cintron, JACEY)1530 (Given - Provider: Alejandro Connell, JACEY)2144 (Given - Provider: Gladis Ogden, JACEY) 0811 (Given - Provider: Jacqueline Zelaya , JACEY)1435 (Given - Provider: Jacqueline Zelaya, JACEY)2107 (Given - Provider: Gladis Ogden, JACEY) 0854 (Given - Provider: Jacqueline Zelaya RN) 300 mg, Oral, 3 TIMES DAILY, First dose on Tue02/01/19 at 1500, Until Discontinued, Routine insulin glargine VIAL injection 50 Units 2145 (Given - Provider: Gladis Ogden, JACEY) 211 (Given - Provider: Gladis Ogden, JACEY) 50 Units, Subcutaneous, NIGHTLY, First d ose on Tue02/02/19 at 2100, Until Discontinued, Routine insulin lispro (HumaLOG) VIAL injection 0-12 Units (CA NCELED) 0836 (Given - Provider: Myra Cintron RN)1226 (Given - Provider: Alejandro Connell, RN)1741 (Given [...] oup 1) 1145 (Given - Provider: Jacqueline L Flood, RN)1623 (Given - Provider: Jacqueline Zelaya RN)2007 [...] RN) 0808 (Rate/Dose Change - Provider: Amy Zelyaa RN)0900 (Rate/Dose Change - Provider: Jacqueline Zelaya [...] Alejandro Connell RN)1309 (Rate/Dose Change - Provider: Alejanrdo Connell RN)1800 (Continued Bag - Provider: Alejandro [...] mL 0830 (Given - Provider: Myra Cintron, JACEY) 0900 (Not Given - Provider: Jacqueline ordaz RN - Reason: Patient/family refused) 0900 (Not Given - Provider: Jacqueline Zelaya RN - Reason: Patient/family refused) 10 mL, Oral, DAILY, First dose on Tue at 0900, Until Discontinued, Post- op day 2. Do not use with renal insufficiency., Routine metoprolol (LOPRESSOR) tablet 12.5 mg 0830 (Given - Pr ovider: Myra Cintron, JACEY)2143 (Given - Provider: Gladis Ogden RN) 0811 (Given - Provider: Jacqueline Zelaya RN)210 (Given - Provider: Gladis Ogden RN) 0854 (Given - Provider: Jacqueline Zelaya RN) 12.5 mg, Oral, EVERY 12 HOURS SCHEDULED (2 times per day), First dose on Tue02/01/19 at 2100, Until Discontinued, Please hold for hr <50, sbp <90, Routine miconazole (MICOTIN) 2 % powder 0838 (Given - Provider : Myra Cintron RN)2147 (Given - Provider: Gladis Ogden RN) [...] Myra Cintron RN) 0811 (Given - Provider: Jacqeuline Zelaya RN) 0853 (Gi bayron - Provider: [...] 2 tablet, Oral, DAILY, First dose on Tue02/01/19 at 2100, Until Discontinued, Post-op day 1, Routine sodium chloride 0.9 % (flush) flush 5 mL 0058 (Given - Provider: Giles Hawthorne RN)0830 (Given - Provider: Myra Cintron, RN)1530 (Given - Provider: Alejandro Connell, RN)2000 (Given - Provider: Gladis Ogden, RN) 0730 (Given - Provider: Jacqueline Zelaya RN)1530 (Given - Provider: Jacqueline Zelaya RN)2100 (Given - Provider: Gladis Ogden, RN) 0730 (Given - Provider: Jacqueline Zelaya RN) [...] sodium chloride 0.9% BOLUS 0-16 Units (CANCELED) 917 (Bolus from Bag - Provider: Alejandro E Connell, RN)1010 (Bolus from Bag - Provider: [...] Connell, RN)2215 (Given - Provider: Gladis Ogden, JACEY) 2107 (Given - Provider: Gladis Ogden, JACEY) 5-15 mg, Oral, EVERY 4 HOURS PRN, Starti ng Rosalia 02/01/19 at 0836, Until Tue02/06/19 at 1630, [...]
Routine documented in this encounter Care Teams Lab Courier Relationship Specialty Start Date End Date Taye Ron MD PCP - General Family Medicine 11/04/16 [address] [place] [id number] documented as of this encounter
--- OUTSIDE RECORDS SUMMARY | 2022-04-26 10:03 | XMS_ITS | Encounter Summary ---
:1950 [place] [address] Care Team Providers Name Role Phone Jojo Perera APRN Primary Care Provider Reason for Visit Reason Onset Date Comments Medication Refill 05/22/2015 Encounter Details Date Type Department Care Team Description 05/22/2015 Refill Endocrinology at [facility] [place] [address] ENDOCRINOLOGY DEPT [phone] [place], [place] [address] (Wo rk) Social History Tobacco Use Types Packs/Day Years Used Date Former Smoker Quit: 01/11/19 91 Smokeless Tobacco: Never Used Sex Assigned at Date Recorded Not on file documented as of this encounter Plan of Treatment Upcoming Encounters Date Type Specialty Care Team Description 04/27/2022 Tech Visit Vascular Surgery Anais Singh 04/27/2022 Office Visit Vascular Surgery Sulema Fajardo MD [facility] [place], [place] [address] (Wo rk) 05/18/2022 Office Visit Dermatology Alejandro Reese MD [address] DERMATOLOGY [place], [place] [address] (Wo rk) documented as of this encounter Visit Diagnoses Not on filedocumented in this encounter Care Teams Practice Consultant Relationship Specialty Start Date End Date Jojo Perera APRN PCP - General 06/30/10 10/28/15 [phone] [place] [address] documented as of this encounter
--- OUTSIDE RECORDS SUMMARY | 2022-04-26 10:04 | XMS_ITS | Encounter Summary ---
:1950 Author Organization [facility] Address [address] [place] [address] Care Team Providers Name Role Phone Unknown, Yessica BRANHAM Primary Care Provider Taye Ron MD Primary Care Provider Reason for Referral Follow Up (Routine) - Closed Specialty Diagnoses / Procedures Referred By Contact Refer red To Contact Diagnoses NSTEMI (non-ST elevated myocardial infarction) (HCC-CMS) ([facility]) Acute systolic heart failure (HCC-CMS) ([facility]) Raegan Whitaker MD PhD [address] [phone] Referral ID Status Reason Start Date Expiration Visits Visits Date Requested Authorized [id number] Closed Continuity of 06/17/2017 1 1 Care Question Answer Reason for Request: hospital follow up for NSTEM I, heart failure Expected Discharge Date (Inpatient Only): 06/17/2017 Consult (Routine) - Closed Specialty Diagnoses / Procedures Referred By Contact Refer red To Contact Diagnoses NSTEMI (non-ST elevated myocardial infarction) (HCC-CMS) ([facility]) Acute systolic heart failure (HCC-CMS) ([facility]) Raegan Whitaker MD PhD [address] [place] [phone] Referral ID Status Reason Start Date Expiration Date Visits V isits Requested Authorized [id number] Closed Specialty 06/17/2017 1 1 Services Required Question Answer Reason for Request: NSTEMI, medical management Expected Discharge Date (Inpatient Only): 06/17/2017 Practice Site (External Referral Only): Needs follow u p with cardiology near home in [facility] Consult (Routine) - Closed Specialty Diagnoses / Procedures Referred By Contact Refer red To Contact Diagnoses NSTEMI (non-ST elevated myocardial infarction) (HCC-CMS) ([facility]) Acute systolic heart failure ([facility]-CMS) ([facility]) Raegan Whitaker MD PhD [address] [place] [phone] Referral ID Status Reason Start Date Expiration Date Visits V isits Requested Authorized [id number] Closed Specialty 06/17/2017 1 1 Services Required Question Answer Reason for Request: NSTEMI, medical management Expected Discharge Date (Inpatient Only): 06/17/2017 Encounter Details Date Type Department Care Team Description 06/14/2017 - [facility] Lexa Bentley MD [address] [place] [phone] NSTEMI (non-ST elevated myocardial infar ction) ([facility]) ([facility]) (Primary Dx); 06/17/2017 Encounter Cardiac/Telemetry Jerome Egan MD [address] [place] [phone] Acute systolic heart failure ([facility]) ( [facility]) [address] [place] [phone] Social History Tobacco Use Types Packs/Day Years Used Date Former Smoker Cigarettes 2 37 Quit: 06/14/19 99 Smokeless Tobacco: Never Used Tobacco Cessation: Counseling Given: No Alcohol Use Standard Drinks/Week Comments No 0 (1 standard drink = 0.6 oz pure alcoho l) Sex Assigned at Date Recorded Not on file documented as of this encounter Last Filed Vital Signs Vital Sign Reading Time Taken Comments Blood Pressure 111/83 06/17/2017 1231 EST Pulse 70 06/17/2017 0811 EST Temperature 35.8 ??C (96.4 ??F) 06/17/2017 0758 EST Respiratory Rate 16 06/17/2017 0758 EST Oxygen Saturation 92% 06/17/2017 1231 EST Inhaled Oxygen - - Concentration Weight 132.6 kg (292 lb 4.8 06/17/2017 0500 pt weighed with a oz) EST standing scale, double checked w eight Height 167.6 cm (5' 6) 06/14/2017 2257 EST Body Mass Index 47.18 06/14/2017 2257 EST documented in this encounter Functional Status Functional Status Response Date of Assessment Are you deaf or do you have serious difficulty hearing? No 06/14/2017 Are you blind or do you have serious difficulty seeing, No 06/14/2017 even when wearing glasses? Do you have serious difficulty walking or climbing Yes 06/14/2017 stairs? (5 years old or older) Do you have difficulty dressing or bathing? (5 years old No 06/14/2017 or older) Because of a physical, mental, or emotional condition, do No 06/14/2017 you have difficulty doing errands alone such as visiting a doctor's office or shopping? (15 years old or older) Cognitive Status Response Date of Assessment Because of a physical, mental, or emotional condition, do No 06/14/2017 you have serious difficulty concentrating, remembering, or making decisions? (5 years old or older) documented as of this encounter Discharge Diagnoses Diagnosis I21.A1 Myocardial infarction type 2-I21. A1[ICD-10-CM] I50.23 Acute on chronic systolic (conges tive) heart failure-I50.23[ICD-10-CM] E11.9 Type 2 diabetes mellitus without c omplications-E11.9[ICD-10-CM] I44.7 Left bundle-branch block, unspecif ied-I44.7[ICD-10-CM] I11.0 Hypertensive heart disease with he art failure-I11.0[ICD-10-CM] E78.5 Hyperlipidemia, unspecified-E78.5[ ICD-10-CM] I25.119 Atherosclerotic heart disease of [place] coronary artery with unspecified angina pectoris-I25.119[ICD-10-CM] L40.9 Psoriasis, unspecified-L40.9[ICD-1 0-CM] K52.9 Noninfective gastroenteritis and c olitis, unspecified-K52.9[ICD-10-CM] F17.210 Nicotine dependence, cigarettes, uncomplicated-F17.210[ICD-10-CM] I25.5 Ischemic cardiomyopathy-I25.5[ICD- 10-CM] Z82.49 Family history of ischemic heart disease and other diseases of the circulatory system-Z82.49[ICD-10-CM] Z79.82 FDC (current) use of aspiri n-Z79.82[ICD-10-CM] Z79.4 joint terminal attack controller (current) use of insulin -Z79.4[ICD-10-CM] documented in this encounter Discharge Summaries Slick Bentley MD - 06/17/2017 0707 EST Cardiology Discharge Summary Primary Care Provider: Taye Ron Attending Physician: Slick Bentley MD Admit Date: 06/14/2017 Discharge Date: 06/17/17 Disposition: Home or self care Problems and Procedures Admitting Diagnosis: NSTEMI (non-ST elevated myocardial infarction) ([facility]) Final Hospital Diagnosis: Acute on chronic systolic heart failure, NSTEMI type 2 Additional Problems Managed in the Hospital Active Hospital Problems Diagnosis Date Noted ??? *NSTEMI (non-ST elevated myocardial infarction) ([facility]) 06/14/2017 ??? Acute systolic heart failure ([facility]) 06/16/2017 ??? HLD (hyperlipidemia) 06/16/2017 ??? Type 2 diabetes mellitus with complication ([facility]) 06/15/2017 ??? Hypertension 06/15/2017 ??? CAD (coronary artery disease) 06/15/2017 Had Catheterization in 2005 at [facility] -- showed two vessel disease that was not intervened upon (LAD and Circ). [facility] 06/15 showed MVD, not candidate for CABG Resolved Hospital Problems Diagnosis Date Noted Date Resolved No resolved problems to display. Principal Procedure: [facility] Date: 06/15/17 Left main: mild irreg Left anterior descendin% prox, long 80 to 90% prox to mid, distal LAD diffuse 50 to 70%, D1 70%ptox Leftcircumflex: 40% prox, 80% mid prior to large OM2, 70% prox OM1 Right coronary artery: 70% mid and chronic 100% mid, collaterals to distal fom left Grafts: n/a Secondary Procedures: Echo 06/16: 1. Left ventricle: The cavity size was mildly dilated. Wall thickness ? was increased in a pattern of moderate LVH. Systolic function was ? severely reduced. The estimated ejection fraction was 25-30%. Severe ? diffuse hypokinesis with regional variations. Akinesis of the ? mid-apicalanteroseptal, anterior, and apical myocardium. 2. Mitral valve: Mildly calcified annulus. Mildly thickened leaflets. ? There was mild to moderate regurgitation. 3. Right ventricle: The cavity size was normal. Wall thickness was ? normal. Systolic function was normal. Hospital Course Carlos Mercer??is a 67 y.o.??male??with hx including CAD (2 vessel disease in 2005, no PCI), 200 pack years smoking, hypertension/hyperlipidemia, diabetes mellitus type 2, and psoriasis, who??presented with months of intermittent chest pressure and shortness of breath; was found to have a large RCAterritory fixed defect on outpatient NM stress test on 06/13 and was sent to the ED. Troponin was elevated (peaked at 0.4). He underwent LHC 06/15 on found to have multivessel disease (as above) and severely reduced EF on LHC. ??He was not a candidate for CT surgery or PCI due to lack of appropriate targets, and was managed medically with heparin drip, diuresis, beta blockade and ACEI (which he was taking at home). EF on echo was calculated at 25-30%. Spironolactone was added to his medication regimenand he was discharged on torsemide with instructions to follow up with PCP in a week as well as cardiology closer to home. Allergies and Immunizations Allergies Allergen Reactions ??? Methotrexate Other (See Comments) Increased bleeding, lethargic ??? Shellfish Containing Products Other (See Comments) and Swelling of tongue Numbness, tingling There is no immunization history on file for this patient. Transition of Care Plans Condition at Discharge Improved Assessment at Discharge Vital signs: Patient Vitals for the past 12 hrs: BP Pulse Heart Rate Resp Temp SpO2 O2 Device 06/17/17 1231 111/83 - 76 BPM - - 92 % None 06/17/17 0811 - 70 - - - - - 06/17/17 0758 104/56 - 72 BPM 16 35.8 ??C (96.4 ??F) 98 % None 06/17/17 0433 110/54 - 75 BPM 16 36.7 ??C (98.1 ??F) 95 % None Medication List START taking these medications spironolactone 50 mg tablet Commonly known as: ALDACTONE Take 1 Tab by mouth daily. torsemide 20 mg tablet Commonly known as: DEMADEX Take 1 Tab by mouth daily for 30 days. Start taking on: 06/18/2017 CHANGE how you take these medications atorvastatin 80 mg tablet Commonly known as: LIPITOR Take 1 Tab by mouth daily. What changed: - medication strength - Another medication with the same name was removed. Continue taking this medication, and follow thedirections you see here. insulin detemir 100 unit/mL injection Commonly known as: LEVEMIR What changed: how much to take CONTINUE taking these medications adalimumab 40 mg/0.8 mL pen kit Commonly known as: HUMIRA PEN aspirin chewable 81 mg tablet DIABETIC VITAMIN ORAL FISH OIL ORAL gabapentin 300 mg capsule Commonly known as: NEURONTIN insulin aspart 100 unit/mL injectable pen Commonly known as: NOVOLOG FLEXPEN liraglutide 0.6 mg/0.1 mL (18 mg/3 mL) injectable pen Commonly known as: VICTOZA lisinopril 20 mg tablet Commonly known as: PRINIVIL, ZESTRIL magnesium oxide 400 mg tablet Commonly known as: MAG-OX metFORMIN 1,000 mg tablet Commonly known as: GLUCOPHAGE metoprolol XL 25 mg tablet Commonly known as: TOPROL-XL traMADol 50 mg tablet Commonly known as: ULTRAM traZODone 50 mg tablet Commonly known as: DESYREL Medication Instructions: Please decrease your long-acting insulin to 30 units; Please check your sugars before meals and at bedtime for the next several days. As you adjust your diet you will likely need to adjust your home insulin regimen. call your PCP if your blood sugar is <80 or >300 at any point. Where to Get Your Medications These medications were sent to [phone] - [facility], [place] - [address], [place] [address] ??? atorvastatin 80 mg tablet ??? spironolactone 50 mg tablet ??? torsemide 20 mg tablet Coumadin Management N/A Results Pending at Discharge Test results still pending from this admission None Last Lab Results at Discharge BUN: No results found for: BUN Creatinine: Lab Results Component Value Date CREATININE 0.69 06/17/2017 CBC: Lab Results Component Value Date WBC 12.56 (H) 06/17/2017 RBC 4.52 06/17/2017 HGB 13.3 (L) 06/17/2017 HCT 38.5 (L) 06/17/2017 MCV 85 06/17/2017 MCH 29.4 06/17/2017 MCHC 34.5 06/17/2017 PLT 257 06/17/2017 Electrolytes: Lab Results Component Value Date NA 141 06/17/2017 K 3.9 06/17/2017 CL 104 06/17/2017 CO2 28 06/17/2017 Lipid Profile: Lab Results Component Value Date CHOL 130 06/15/2017 TRIG 185 06/15/2017 HDL 43 06/15/2017 LDLBASE 50 06/15/2017 CHOLHDL 3.0 06/15/2017 Lab Results Component Value Date HGBA1C 6.8 06/15/2017 Discharge Follow Up Appointments Outside of [facility] We Recommend but have not been Scheduled Follow-up appointments and procedures Amb Consult/Follow Up Cardiac Rehabilitation Reason for Request: NSTEMI, medical management Expected Discharge Date (Inpatient Only): 06/17/2017 Authorizing Provider: Raegan Whitaker MD,PHD Amb Consult/Follow Up Cardiology Reason for Request: NSTEMI, medical management Expected Discharge Date (Inpatient Only): 06/17/2017 Practice Site (External Referral Only): Needs follow up with cardiology near home in [facility] Authorizing Provider: Raegan Whitaker MD,PHD Amb Consult/Follow Up Primary Care Physician Reason for Request: hospital follow up for NSTEMI, heart failure Expected Discharge Date (Inpatient Only): 06/17/2017 Authorizing Provider: Raegan Whitaker MD,PHD Additional Information: You have an appointment scheduled with Dr. Ron 06/21 at 9:30 am Studies We Will Schedule Follow-up labs and tests Basic Metabolic Panel (Lab Test) Complete by: Jun 22, 2017 Scheduling Instructions: Blood Test and Fasting How long do I have to fast for before a blood test? - If a fasting blood test is ordered, you should not have anything to eat or drink (except water) for at least eight hours. This usually involves an overnight fast. - You should continue to take any prescription medications, unless your physician directed you not to take them. - Smoking and exercise may affect your results as well, so you should refrain from these activitiesas much as possible during this time. If you have any concerns about refraining from food for this period of time, talk to your physician. Authorizing Provider: Raegan Whitaker MD,PHD Additional Information: Please have your labs drawn in about a week to make sure your kidneys are handling your new medications Following information conveyed to Taye Ron's office, by Raegan Whitaker MD,PHD: ?? Reason for admission and final diagnosis ?? Medication changes ?? Appointments and tests needed after discharge (includes repeat studies and at what interval) ?? Tests (laboratory, pathology, etc.) pending at discharge Raegan Whitaker MD,PHD 06/17/2017 13:32 Attending Attestation: I have personally evaluated Carlos Mercer's on the day of discharge and reviewed the discharge summary above by Dr. Whitaker. Slick Bentley MD documented in this encounter Discharge Instructions MedicationsRaegan Whitaker MD PhD - 06/17/2017 12:02 EST Please decrease your long-acting insulin to 30 units; Please check your sugars before meals and at bedtime for the next several days. As you adjust your diet you will likely need to adjust your home insulin regimen. call your PCP if your blood sugar is <80 or >300 at any point. Raegan Bro MD PhD - 06/17/2017 12:13 EST You have an appointment scheduled with Dr. Ron 06/21 at 9:30 am Discharge Instr - Raegan Goetz MD PhD - 06/17/2017 12:01 EST Please have your labs drawn in about a week to make sure your kidneys are handling your new medications Discharge Instr - Evette Aviles RN - 06/17/2017 9:12 EST Remember the acronym CYNDI - Diet: low salt - Activity: daily moderate activity for 30 minutes - Medication administration: refer to the After Visit Summary - Everyday weight: weigh yourself daily and record in weight log - Symptom monitoring and follow though: call your doctor's office If you experience rapid weight gain (3 or more pounds in 2 days), increased shortness of breath, or increase leg swelling. AttachmentsThe following attachments cannot be sent through Care Everywhere. HEART FAILURE: AVOIDING TRIGGERS (PERSIAN)documented in this encounter Medications at Time of Discharge Medication Sig Dispensed Refills Start Date End Date adalimumab (HUMIRA PEN) Inject 40 mg into 0 40 mg/0.8 mL pen kit the skin every 14 days. atorvastatin (LIPITOR) 80 Take 1 Tab by mouth 30 Tab 11 1 08/17/2016 mg tablet daily. DOCOSAHEXANOIC ACID/EPA Take 1,000 mg by 0 (FISH OIL ORAL) mouth daily. gabapentin (NEURONTIN) Take 300 mg by mouth 0 300 mg capsule 3 times daily. insulin aspart (NOVOLOG Inject 30 units into 0 FLEXPEN) 100 unit/mL the skin 3 times injectable pen daily pre-meals. Give an additional 1 unit for every 20mg/dL of glucose above 140 mg/dL. insulin detemir (LEVEMIR) Inject 60 Units into 0 06/17/2017 100 unit/mL injection the skin at bedtime. liraglutide (VICTOZA) 0.6 Inject 0.6 units 0 mg/0.1 mL (18 mg/3 mL) into the skin daily injectable pen for 1 week then 1.2mg daily for 1 week then 1.8mg daily. lisinopril (PRINIVIL, Take 10 mg by mouth 0 ZESTRIL) 20 mg tablet daily. magnesium oxide (MAG-OX) Take 400mg in the 0 400 mg tablet morning and 800mg at night metFORMIN (GLUCOPHAGE) Take 1,000 mg by 0 1,000 mg tablet mouth 2 times daily with breakfast and dinner. metoprolol XL (TOPROL-XL) Take 25 mg by mouth 0 25 mg tablet daily. spironolactone Take 1 Tab by mouth 30 Tab 11 06/17/2017 (ALDACTONE) 50 mg tablet daily. traZODone (DESYREL) 50 mg Take 50 mg by mouth 0 tablet at bedtime. aspirin chewable 81 mg Take 81 mg by mouth 0 06/22/2017 tablet daily. MV-MN/FOLIC AC/ALIP Take 1 Tab by mouth 0 06/22/2017 ACID/COQ10 (DIABETIC daily. VITAMIN ORAL) torsemide (DEMADEX) 20 mg Take 1 Tab by mouth 30 Tab 2 1 08/18/2016 07/18/2017 tablet daily for 30 days. traMADol (ULTRAM) 50 mg Take 50 mg by mouth 0 06/22/2017 tablet every 6 hours as needed for Pain. documented as of this encounter Ordered Prescriptions Prescription Sig Dispensed Refills Start Date End Date spironolactone (ALDACTONE) Take 1 Tab by 30 Tab 11 2016 50 mg tablet mouth daily. atorvastatin (LIPITOR) 80 Take 1 Tab by 30 Tab 11 017 mg tablet mouth daily. torsemide (DEMADEX) 20 mg Take 1 Tab by 30 Tab 2 017 07/18/2017 tablet mouth daily for 30 days. documented in this encounter Discharge Disposition Disposition Code Departure Means Destination Home or Self Care documented in this encounter Progress Notes Estefany Claire - 06/17/2017 1246 EST Patient is scheduled for discharge to home today with outpatient follow up. His will provide transportation. No needs are identified at this time. Patient has an appointment to see Boris Workman MD at [facility] for follow up on 07/04 at 11 am. Estefany Claire RN Case Manager #[id number] Raegan Theodore MD PhD - 06/16/2017 1222 EST Cardiology Progress Note Service Date: 06/16/2017 Admit Date: 06/14/2017 23:24 Reason for Admission: 67 y.o. male with CAD (cath in 2006 with no intervention), DM, HTN, admitted with NSTEMI 24 Hour Events: Cath showed TVD Added metoprolol and ACEI Restarted plavix Discussions with interventional cardiology and CT surgery regarding utility of revascularization Subjective/Objective Subjective Mr. Mercer is feeling OK this morning; he denies fever, chills. He continues to have shortness of breath with exertion. Denies palpitations, chest pain, dizziness, headache, changes to speech, weakness or numbness, bleeding. Review of Systems Pertinent items are noted in Subjective/HPI Objective Vital Signs Temp: [36 ??C (96.8 ??F)-36.9 ??C (98.4 ??F)] (), Heart Rate: [79 BPM-94 BPM] (), Resp: [18-22] (), BP: (113-143)/(60-87) (), SpO2: [95 %-99 %] () Physical Exam Gen: AAOx4, NAD, obese HEENT: NC/AT, anicteric, MMM, orophayrnx clear Neck: Unable to assess JVD due to body habitus CV: distant hear sounds, RRR, normal S1 and S2, no m/r/g Pulm: CTAB on anterior villanueva Abd: soft, NT/ND, normal bowel sounds, no rebound/guarding Ext: WWP, chronic lower extremity edema 1+ bilaterally Neuro: drama director II-XII grossly intact, moving all 4 extremities Medications Reviewed: d/c nitro gtt, plavix Continue heparin gtt Labs Reviewed: trop peaked at first draw from OSH at 0.4, downtrended here BNP 1720 Normal BMP Mild leukocytosis Imaging Reviewed: [facility] showed MVD Left main: mild irreg Left anterior descendin% prox, long 80 to 90% prox to mid, distal LAD diffuse 50 to 70%, D1 70%ptox Leftcircumflex: 40% prox, 80% mid prior to large OM2, 70% prox OM1 Right coronary artery: 70% mid and chronic 100% mid, collaterals to distal fom left Echo 1. Left ventricle: The cavity size was mildly dilated. Wall thickness ? was increased in a pattern of moderate LVH. Systolic function was ? severely reduced. The estimated ejection fraction was 25-30%. Severe ? diffuse hypokinesis with regional variations. Akinesis of the ? mid-apicalanteroseptal, anterior, and apical myocardium. ?? 2. Mitral valve: Mildly calcified annulus. Mildly thickened leaflets. ? There was mild to moderate regurgitation. ?? 3. Right ventricle: The cavity size was normal. Wall thickness was ? normal. Systolic function was normal. Assessment/Plan Assessment Carlos Mercer??is a 67 y.o.??male??with hx including CAD (2 vessel disease in 2005, no PCI) hypertension/hyperlipidemia, diabetes mellitus type 2, psoriasis, who presented with months of intermittent chest pressure and shortness of breath; was found to have a large RCA territory fixed defect on outpatient NM stress test on 06/13 and was sent to the ED; found to have NSTEMI and now multivessel disease and severely reduced EF on C. Overall hemodynamically stable, plan to optimize medical management consider revascularization of the LAD or RCA for improving EF. Plan CAD with NSTEMI and multivessel disease and ischemic cardiomyopathy/systolic heart failure: Pharmacologic nuclear stress test 06/13 with results showing large fixed defect of the inferior and apical lauren, suggesting large infarct of the RCA territory with calculated EF of 16%. EKG that showed new leftbundle branch block. Troponin peaked at 0.44. Suspect a recent large event that we are now capturingthe tail end of. Medical optimization and consideration of high risk PCI as he is not a candidate for CABG - received ASA 325 mg at OSH, continue 81 mg Daily - s/p plavix 600 load, plavix 75 mg daily - metop 50 XL daily - lisinopril 5 mg daily - atorvastatin 80 mg Daily - heparin gtt--continue - supplemental O2 if needed (currently 2L) - monitor on tele - lasix 40 mg IV daily ?? Hypertension/hyperlipidemia ???Meds as above ?? DM type II: good control with hgb A1c 6.8. Reports taking glargine 65 units daily at bedtime, units with meals 3 times a day, liraglutide 0.6 daily. - scheduled 7 units aspart with meals - glargine 30 u qHS - SSI insulin with meals ?? Psoriasis: Takes Adalimumab 40 mg every . ??? ordered Humira for today VTE Prophylaxis Pharmacologic Prophylaxis: heparin gtt Discharge Plan Uncertain at this time Consults Surgery Raegan Whitaker MD,PHD 06/16/2017 12:22 Associated attestation - Slick Bentley MD - 06/16/2017 4584 EST Attending Attestation: I have personally seen and examined Carlos Mercer, discussed the patient'smanagement with the team, and agree with the findings and plan as outlined by Dr. Whitaker. [facility] reviewed with Interventionalist. The areas that would benefit most from improvement in wall motion are notaccessible to intervention (RCA) or densely infarcted (mid-distal LAD). The Cx has several lesions that could be stented but there would be questionable benefit as he has preserved wall motion in thesesegments and does not have evidence of ACS. Thus will treat medically for heart failure. Slick Bentley, Oleksandr, Saran - 06/16/2017 0813 EST Cardiology Progress note Admit Date: 06/14/2017 Hospital day: LOS: 1 day Date of Service: 06/16/2017 Code Status: Full Code Chief Complaint: Few weeks chest pain and pressure with exertion and occasionally at rest found 06/14to have new LBBB with elevated troponins at [facility] consistent with NSTEMI. Events/ Procedures in the last 24 hrs: PCI yesterday with significant disease in LAD, Circumflex, RCA. No stents due to possible candidate for CABG. CT surgery defered patein for another PCI Today. Subjective: Mr. Mercer is a 67 y.o. With a PMH of CVD with a PCI in 2005 (MVD but no stents placed), Hypertension, hyperlipidemia, type 2 diabetes that initially presetned with a few weeks of chest pain and pressure, with the pain sometimes occurring at rest. Last week he saw his PCP due to these symptoms, who ordered a nuclear stress test. This was read on 06/13 which showed significant inferior andapical dysfunction, due to these his PCP had him go to [facility] 06/14 where he was found to have elevatedtroponins and new LBBB. He was given ASA, Clopedigel, heparin and transfed to [facility] for intervention. This morning he denies any significant chest pain or pressure. His SOB has improved since yesterday but is still present. He denies any other problems and is okay with another PCI today if neccisary. Current Facility-Administered Medications: acetaminophen (TYLENOL) tablet 650 mg oral Q4H PRN aspirin EC tablet 81 mg oral DAILY atorvastatin (LIPITOR) tablet 80 mg oral DAILY ceFAZolin (ANCEF) 1 gram injection dextrose 50 % solution 12.5 g intravenous PRN fentaNYL citrate (PF) 50 mcg/mL injection furosemide (LASIX) injection 20 mg intravenous Now glucagon injection 1 mg intramuscular PRN heparin 1,000 unit/mL injection 6,500 Units intravenous PRN Or heparin 1,000 unit/mL injection 3,300 Units intravenous PRN heparin 1,000 unit/mL injection heparin in /2 NS 25,000 unit/250 mL infusion intravenous CONTINUOUS insulin aspart (NOVOLOG FLEXPEN) injection 7 Units subcutaneous TID WC insulin aspart (NOVOLOG FLEXPEN) injection subcutaneous TID WC insulin glargine (LANTUS SOLOSTAR) injection pen 30 Units subcutaneous DAILY L.A. INSULIN lidocaine 20 mg/mL (2 %) injection magnesium sulfate 2g in D5W 50 ml intravenous Now melatonin tablet 3 mg oral AT BEDTIME PRN metoprolol (LOPRESSOR) tablet 25 mg oral BID midazolam (PF) (VERSED) 1 mg/mL injection nitroglycerin 100 mcg/mL syringe nitroglycerin 400 mcg/ml in D5W 250 ml infusion intravenous CONTINUOUS sodium chloride 0.9 % flush 3 mL intravenous Q8H verapamil (ISOPTIN) 2.5 mg/mL injection Review of Systems: Pertinent items are noted in Subjective/HPI Objective/Physical Exam: VS: Patient Vitals for the past 8 hrs: BP Heart Rate Resp Temp SpO2 O2 Flow Rate (L/min) O2 Device 06/16/17 0738 - 89 BPM - - - - - 06/16/17 0734 113/60 89 BPM - 36 ??C (96.8 ??F) 95 % - - 06/16/17 0700 - 87 BPM - - - - - 06/16/17 0600 - 93 BPM - - - - - 06/16/17 0500 - 83 BPM - - - - - 06/16/17 0401 138/87 85 BPM 20 36.3 ??C (97.3 ??F) 99 % - None 06/16/17 0400 - 82 BPM - - 99 % - None 06/16/17 0300 - 80 BPM - - - - - 06/16/17 0200 - 79 BPM - - - - - 06/16/17 0100 - 85 BPM - - - - - Pain: Patient Vitals for the past 8 hrs: Numeric Pain Level (Scale 1-10) 06/16/17 0734 0 06/16/17 0600 0 06/16/17 0500 0 06/16/17 0401 0 06/16/17 0400 0 06/16/17 0200 0 06/16/17 0100 0 Weight: Patient Vitals for the past 8 hrs: Weight 06/16/17 0600 (!) 135.4 kg (298 lb 8 oz) Glucose Readings (last 8 hours): Recent Labs 06/15/17 0107 06/15/17 0526 06/15/17 1130 06/15/17 1409 06/15/17 1645 06/15/17 2053 06/16/17 0701 GLUCOSEFINGE 130* 130* 155* 151* 199* 160* 160* I&O: Intake/Output Summary (Last 24 hours) at 06/16/17 0846 Last data filed at 06/16/17 0734 Gross per 24 hour Intake 1508.18 ml Output 900 ml Net 608.18 ml Exam: General: alert and oriented x3 Heart: regular rate and rhythm, no murmurs rubs or gallops Lungs: slight cackles in bilateral lower lung villanueva. Abdominal: no distension, no pain to palpation, no hepatosplenomegaly Extremities: 1+ UE and LE pulses. Pitting edema below malleoli bilaterally. Data Review: I have independently visualized the Lab Review: I have personally reviewed CBC: Lab Results Component Value Date WBC 12.64 (H) 06/16/2017 RBC 4.53 06/16/2017 HGB 13.7 (L) 06/16/2017 HCT 40.2 06/16/2017 MCV 89 06/16/2017 MCH 30.2 06/16/2017 MCHC 34.1 06/16/2017 PLT 261 06/16/2017 BMP: Lab Results Component Value Date NA 140 06/16/2017 K 4.4 06/16/2017 CL 102 06/16/2017 CO2 29 06/16/2017 CREATININE 0.73 06/16/2017 GLUCOSEFINGE 160 (H) 06/16/2017 MG 1.8 06/16/2017 Cardiac markers: Lab Results Component Value Date TROPONINI 0.296 (H) 06/15/2017 TROPONINI 0.323 (H) 06/15/2017 Lipid Profile: Lab Results Component Value Date CHOL 130 06/15/2017 TRIG 185 06/15/2017 HDL 43 06/15/2017 LDLBASE 50 06/15/2017 CHOLHDL 3.0 06/15/2017 Lab Results Component Value Date HGBA1C 6.8 06/15/2017 Non-Invasive Findings last 24 hours: Findings CXR: normal and Findings Echo: Abnormal, and reviewed by myself: reduced EF 30-25% Telemetry: no EKG: N/A Does the patient have active heart failure? yes, acute, systolic Assessment: Mr. Mercer is a 67 y.o. With a PMH of CVD with a PCI in 2005 (MVD but no stents placed), Hypertension, hyperlipidemia, type 2 diabetes that initially presetned with a few weeks of chest pain and pressure, found to have elevated troponins and new LBBB 06/14 at [facility] consistent with NSTEMI, now S/P PCI y esterday which showed multiple vessel disease, elevated end diastolic pressure. CV surgery found thepatient to be a poor candidate for CABG, so now he will either have a PCI with stenting today vs medical management. Mr. Mercer denies any chest pain this morning and his troponin levels are down trending. Mr Mercer has had SOB with elevated Pro BNP and significantly reduced EF (30-20%). He [id number] mg furosemide yesterday, with 2lbs weight loss but has a positive 600cc fluid balance and he still has SOB on 2LNC with crackles and LE edema. We plan to continue to diurese him as needed as well asoptimize his medication for HfREF through increasing his metoprolol and starting a BYRON. His A1C was 6.8 showing good control on Aspart and Lantus. His LDL was 50, also showing good control. Plan: NSTEMI w reduced EF: Asa 81 daily Start plavix 75mg Atorvastatin 80mg daily metroprolol 50mg daily continue heparin for possible PCI today Lisinopril 5mg daily NPO today for possible PCI Furosamide 40mg, will monitor weight and I/O and dose accordingly. Tele monitoring Type II diabetes: Continue Aspart 7u with meals continue Lantus 30U Continue sliding scale Discharge Plan: Uncertain at this time Saran Blevins 06/16/2017 8:46 Raegan Theodore MD PhD - 06/15/2017 1412 EST Cardiology Post Procedure Note s/p cardiac catheterization S: Pt resting comfortably. Denies chest pain, palpitations, lightheadedness, dizziness, dyspnea, numbness or weakness. Denies pain, bleeding or discharge from the cath site. Ambulating without complication. O:Blood pressure 127/78, pulse 88, temperature (!) 35.5 ??C (95.9 ??F), temperature source Tympanic,resp. rate 20, height 167.6 cm (66), weight (!) 137.2 kg (302 lb 6.4 oz), SpO2 95 %. Gen: NAD, resting comfortably Chest: CTAB, no w/r/r CV: RRR, S1/S2 normal, no m/r/g Extr: R radial cath site c/d/i, no bleeding or discharge, no hematoma or mass Pulse: 2+ Neuro: A+Ox3, 5/5 strength, grossly normal sensation A/P: 67 y.o.male s/p cardiac catheterization. -- stable as above, cont to monitor -- cont plan as per morning note Raegan Whitaekr MD,PHD 06/15/2017 14:12 Estefany Hernández - 06/15/2017 1138 EST Initial Case Management/Social Work Assessment and Discharge Plan/Readmission Risk Assessment REASON FOR ADMISSION: NSTEMI (non-ST elevated myocardial infarction) (HCC) Patient understands reason for admission: Yes PATIENT CONTACT INFO VERIFIED: Yes (Daughter Beryl Scott [phone]) PATIENT ADDRESS VERIFIED: Yes LIVING ARRANGEMENTS AND ACCESSIBILITY ISSUES: Living Arrangements: Alone, Apartment Levels: 1 Stairs to enter: 0 Handicap access: Elevator Bathroom located on bedroom level?: Yes What in home social supports are available to the patient? Children, Friends / neighbors. Patient lives in senior housing in first floor apartment. He has many friends in the building who are supportive. He states that he is independent in self care. He worked for [employer] for awhile but had to stop because of shortness of breath and fatigue. Is 28/02 care available? No ADVANCED DIRECTIVES, POA &/or COLST IN PLACE: Healthcare Directive: Yes, patient has advance directive for healthcare treatment Type of Healthcare Directive: Health care treatment directive Copy in Chart: Other (Comment) (Pt reports completed at [facility]) DIRECTIVES FOR FINANCES: TRANSPORTATION: Transportation: Family CULTURAL, TEMPLE and/or LANGUAGE factors affecting health care/discharge planning: Spiritual/Cultural Requests: None Insurance in Place: Yes Medical Insurance: Yes Type of insurance: Medicaid Medicaid Type: Community Referred to patient financial services: No DISCHARGE RISK ASSESSMENT: Total # selected above: Tentative plan to address the risk of re-hospitalization for those at HIGH MODERATE RISK: RAPT TOOL: Patient expects to be discharged to: Home SBIRT: SASQ (Single Alcohol Screening Question) How many times in the past year have you had 5 or more drinks in a single day?: Never How many times in the past year have you used an illegal drug or used a prescription medication for non-medical reasons?: Never Intervention in place/initiated?: No, not indicated FUNCTIONAL STATUS: Activities patient requires assistance: None Assistive Device: None COMMUNITY RESOURCES/SUPPORTS: Primary Care Provider: Taye Ron PCP Verified: Yes (Taye Ron MD) Specialists: None Type of Home Health Services: None DME Provider: None Pharmacy: [email or web address] Home Health: None Other: POST HOSPITAL TRANSITION PLAN: Case management will continue to follow through transition to discharge. Patient is awaiting evaluation for CABG. Anticipate discharge to home when medically stable. Patient states he has supportive friends, neighbors and family members who could be available after surgery. Estefany Claire pin machine operator #[phone] Raegan Theodore MD PhD - 06/15/2017 0801 EST Cardiology Progress Note Service Date: 06/15/2017 Admit Date: 06/14/2017 22:41 Reason for Admission: 67 y.o. male with CAD (cath in 2006 with no intervention), DM, HTN, admitted with NSTEMI 24 Hour Events: Admitted plavix 300 x2 Heparin and nitro gtt Subjective/Objective Subjective Denies fever, chills. He has continued shortness of breath at rest, worse with exertion. He reports some orthopnea. Continues to have slight chest pressure but this is improved from presentation. Denies palpitations, nausea, diaphoresis, vomiting, change to bowel or bladder patterns, bleeding. Review of Systems Pertinent items are noted in Subjective/HPI Objective Vital Signs Temp: [35.5 ??C (95.9 ??F)-36.2 ??C (97.2 ??F)] (), Heart Rate: [84 BPM-95 BPM] (), Resp: [20] (), BP: (126-148)/(72-99) (), SpO2: [97 %-99 %] () Physical Exam Gen: AAOx4, NAD, obese HEENT: NC/AT, anicteric, MMM, orophayrnx clear Neck: Unable to assess JVD due to body habitus CV: distant hear sounds, RRR, normal S1 and S2, no m/r/g Pulm: CTAB on anterior villanueva Abd: soft, NT/ND, normal bowel sounds, no rebound/guarding Ext: WWP, chronic lower extremity edema 1+ bilaterally Neuro: drama director II-XII grossly intact, moving all 4 extremities Medications Reviewed: d/c nitro gtt, plavix Continue heparin gtt Labs Reviewed: trop peaked at first draw from OSH at 0.4, downtrended here BNP 1720 Normal BMP Mild leukocytosis Imaging Reviewed: [facility] showed MVD Left main: mild irreg Left anterior descendin% prox, long 80 to 90% prox to mid, distal LAD diffuse 50 to 70%, D1 70%ptox Leftcircumflex: 40% prox, 80% mid prior to large OM2, 70% prox OM1 Right coronary artery: 70% mid and chronic 100% mid, collaterals to distal fom left Echo pending Assessment/Plan Assessment Carlos Mercer??is a 67 y.o.??male??with hx including CAD (2 vessel disease in 2006, no PCI) hypertension/hyperlipidemia, diabetes mellitus type 2, psoriasis, who presented with months of intermittent chest pressure and shortness of breath; was found to have a large RCA territory fixed defect on outpatient NM stress test on 06/13 and was sent to the ED; found to have NSTEMI and now multivessel disease and severely reduced EF on C. Overall hemodynamically stable, plan to continue heparin drip, formal echo today, optimize medical management and consult CT surgery. Plan CAD with NSTEMI and multivessel disease: Pharmacologic nuclear stress test 06/13 with results showinglarge fixed defect of the inferior and apical lauren, suggesting large infarct of the RCA territory with calculated EF of 16%. EKG that showed new left bundle branch block. Troponin peaked at 0.44. Suspect a recent large event that we are now capturing the tail end of. - received ASA 325 mg at OSH, continue 81 mg Daily - d/c plavix - metoprolol 25 mg BID - will start lisinopril as tolerated - atorvastatin 80 mg Daily - heparin gtt--continue - supplemental O2 if needed (currently 2L) - monitor on tele - fasting lipid profile and HbA1c pending - echo pending - likely consult CT surgery as appropriate pending viability workup ?? Hypertension/hyperlipidemia ???Meds as above ?? DM type II: Reports taking glargine 65 units daily at bedtime, aspart 38 units with meals 3 times a day, liraglutide 0.6 daily. Glucose has been 100-130 while fasting in house without insulin - scheduled 7 units aspart with meals - glargine 30 u qHS - SSI insulin with meals ?? Psoriasis: Takes Adalimumab 40 mg every . ???Continue to monitor VTE Prophylaxis Pharmacologic Prophylaxis: heparin gtt Discharge Plan Uncertain at this time Consults Surgery Raegan Whitaker MD,PHD 06/15/2017 8:01 Associated attestation - Slick Bentley MD - 06/15/2017 1508 EST Attending Attestation: I have personally seen and examined Carlos Mercer, discussed the patient'smanagement with the team, and agree with the findings and plan as outlined by Dr. Whitaker. Patient has diffuse 3-VD on [facility] without good targets for surgical revascularization. Will obtain echocardiogram and discuss limited revascularization for improving EF with Interventional. Carlos Ashby Brittany, RN - 06/15/2017 0551 EST BP (!) 127/99 (BP Cuff Location: Left arm, Patient Position: Sitting) Pulse 103 Temp 36 ??C (96.8 ??F) (Tympanic) Resp 20 Ht 167.6 cm (66) Wt (!) 137.2 kg (302 lb 6.4 oz) SpO2 98% BMI 48.81 kg/m2 Data: Pt admitted for RCA infarction. Now reporting 1/10 chest pressure localized to the Right lateral region. Action: VS, Cardiac assessment, discussed possible interventions and asked pt if he had ever been prescribed sl ntg with consideration of his pmHx, underwriter mortgage loan asked pt would you have taken sl ntg if home and experiencing this pressure? notified. Response: Pt declined intervention, reporting pressure comes and goes and has since resolved. updated. Will ctm. Shima Hernandez RN 06/15/2017 5:34 Renee Vazquez MD - 06/15/2017 6258 EST PATIENT CONSENT TO CARDIOVASCULAR CATHETERIZATION OR INTERVENTION: I, Renee Todd MD, have explained the risks and benefits of cardiac catheterization and/or intervention to the patient (or responsible green party) and have answered the patient's (or responsible green party's) questions. To the best of my knowledge, the patient (or responsible green party) has been adequately informed. The patient (or responsible green party) has consented to the interventional cardiac procedure. As part of the consent we reviewed that, like surgical procedures, interventional procedures require aggressive short term support to determine the potential benefits of the procedures. For this reason, the patient (or responsible green party) has agreed to remain FULL CODE for a minimum of 48 hours after theprocedure. Renee Todd MD Pipe Stem Aligner PGY-5 Pager #[phone] 06/15/2017 4:45 documented in this encounter H&P Notes Talon Parsons MD - 06/14/2017 1982 EST Cardiology Admission History & Physical Service Date: 06/14/2017 Admit Date: 06/14/2017 22:41 Primary Care Provider: Doctor Unknown Chief Complaint: Chest pressure and SOB HPI Carlos Mercer is a 67 y.o. male with hx including hypertension/hyperlipidemia, diabetes mellitus type 2, psoriasis, who is a direct transfer from [facility] due to chest pain and dyspnea on exertion. Patient reports that he has noticed intermittent chest pain and breathing difficulty for the past 3 months. Over the past week this has worsened. He will notice intermittent chest pressure which is substernal, without radiation, lasting up to several minutes and up to several times per day. At times it will occur during rest and recently awoke him from sleep. He says it definitely worsens with activity and improves with rest. He notices it more when he is trying to climb stairs. He has difficulty breathing which also overlaps with his chest pressure. Chest pressure severity can be up to 8 out of 10. He recently did have a stress test done outpatient. It was a pharmacologic nuclear stress test with results yesterday showing large fixed defect of the inferior and apical lauren, suggesting large infarct of the RCA territory with calculated EF of 16%. His PCP then called him and advised him to go to the hospital. At OSH he had an EKG that showed left bundle branch block which is new from his prior EKG [id number]. His troponin was elevated at 0.44. Normal CBC, normal electrolytes, normal creatinine. His proBNP was 1374. He received an aspirin load and Plavix dose 300 mg and was started on nitroglycerin and heparin drip prior to transfer here. Of note, patient reports having had a catheterization in the at [facility]. He is not sure if a stent was placed. On this interview he reports no further chest pressure. He has chronic on and off diarrhea. Has recently had mild lightheadedness. Denies diaphoresis,orthopnea, PND, decreased UOP, F, night sweats, chills, [place], vision changes, cough, abd pain, n/v, numbness/tingling, lightheadedness, dysuria, myalgia. Reports normal appetite. He lives alone in [facility]. He has a [id number] smoking history having quit in 1998. Does not drink alcohol. He says his mother required a CABG in her 60s and his brother required a CABG at age55. Review of Systems: 10 point review of systems performed, pertinent findings as per subjective/HPI. History reviewed. No pertinent past medical history. No past surgical history on file. Social History Substance Use Topics ??? Smoking status: Not on file ??? Smokeless tobacco: Not on file ??? Alcohol use Not on file No family history on file. Allergies Allergen Reactions ??? Methotrexate Other (See Comments) Increased bleeding, lethargic Objective BP (!) 148/76 (BP Cuff Location: Right arm, Patient Position: Semi fowlers) Temp 36.2 ??C (97.2 ??F) (Tympanic) Ht 167.6 cm (66) Wt (!) 137.2 kg (302 lb 6.4 oz) SpO2 98% BMI 48.81 kg/m2 Gen: AAOx4, NAD, obese HEENT: NC/AT, PERRLA, anicteric, EOMI, MMM, orophayrnx clear Neck: Unable to assess JVD due to body habitus, trachea midline, no thyromegaly CV: RRR, normal S1 and S2, no m/r/g Pulm: Bibasilar crackles, no wheezes Abd: soft, NT/ND, normal bowel sounds, no rebound/guarding Ext: WWP, chronic lower extremity edema 1+ bilaterally Neuro: drama director II-XII grossly intact, no focal neurologic deficits appreciated, normal ROM, strength 5/5throughout No new imaging Assessment/Plan Carlos Mercer is a 67 y.o. male with hx including hypertension/hyperlipidemia, diabetes mellitus type 2, psoriasis, who presents with chest pressure and shortness of breath with concern for NSTEMI. Overall hemodynamically stable, plan to continue heparin drip and likely perform left heart catheterization. A/P discussed further below. NSTEMI: Intermittent chest pressure which is substernal, without radiation, lasting up to several minutes and up to several times per day. At times it will occur during rest and recently awoke him fromsleep. He says it definitely worsens with activity and improves with rest. OSH pharmacologic nuclearstress test 06/13 with results yesterday showing large fixed defect of the inferior and apical lauren,suggesting large infarct of the RCA territory with calculated EF of 16%. OSH EKG that showed left bundle branch block which is new from his prior EKG in 2010. OSH troponin was elevated at 0.44. - cycle troponin to peak - received ASA 325 mg at OSH, continue 81 mg Daily - received plavix 300 mg, will consider another 300 mg, continue 75 mg Daily - metoprolol 25 mg BID - atorvastatin 80 mg Daily - heparin gtt - nitro gtt - supplemental O2 if needed - monitor on tele - fasting lipid profile and HbA1c in AM - echo pending - likely LHC in am Hypertension/hyperlipidemia ???Meds as above DM type II: Reports taking glargine 65 units daily at bedtime, aspart 38 units with meals 3 times a day, liraglutide 0.6 daily. - aspart SSI - glargine 30 u qHS Psoriasis: Takes Adalimumab 40 mg every . ???Continue to monitor DVT PPx: heparin gtt Diet: NPO for procedure Code: FULL Disposition: Pending clinical course Shirley Parsons MD [phone] 06/14/17 23:28 Associated attestation - Slick Bentley MD - 06/15/2017 6410 EST Attending Attestation: I have personally seen and examined Carlos Mercer, discussed the patient'smanagement with the team, and agree with the findings and plan as outlined by Dr. Parsons. . Slick Bentley, MDdocumented in this encounter Procedure Notes Giles Navarrete MD - 06/15/2017 8283 EST Cardiovascular Catheterization Laboratory Preliminary Report -- Catheterization Date of Service/Procedure: 06/15/2017 Attending Physician: Giles Navarrete MD Fellow: Deann Joyce MD Pre-Procedure Diagnosis/Indication: Carlos Mercer is a 67 y.o. year old male with Congestive heart failure and NSTEMI. NCDR Indication for PCI:NSTEMI Prior Stress Testing? Yes, with a positive result. Is at high risk for cardiac mortality within one year . Cardiac Medications: On two or more anti anginal medications at the time of catheterization? No Anesthesia: A moderate level of anesthesia/conscious sedation was used in addition to local anesthesia. Access:Right radial artery Procedure: He was brought to [facility] Card[facility] for the procedure: Diagnostic coronary/graft angiography and Left heart cath. Closure: TR Band Post-Procedure Condition: The condition of the patient was Fair. Complications: None. IV Contrast Total: 80 mL Estimated Blood Loss: Minimal. Unless otherwise noted,there were no specimens removed, cultures obtained, or drains retained. Research Study: Patient is not enrolled in a research study. Diagnostic Cardiac Study Results Cors are diffusely diseased Left main: mild irreg Left anterior descendin% prox, long 80 to 90% prox to mid, distal LAD diffuse 50 to 70%, D1 70%ptox Leftcircumflex: 40% prox, 80% mid prior to large OM2, 70% prox OM1 Right coronary artery: 70% mid and chronic 100% mid, collaterals to distal fom left Grafts: n/a Left Ventriculography and Hemodynamic Results LVEDP very elevated at 35 mmHG Endovascular Study Results None Post-Procedure Diagnostic Conclusion: Further diagnostic testing is indicated. Unclear LV function and Viability. Consider CABG for severe TVD and LV dysfunction in diabetic Plan: See post-procedure orders. Continue prior medications. Aspirin 81mg po daily. Heparin continued, needs further diuresis- LVEDP 35 noted CCU team aware At the completion of the procedure, the attending physician has explained the findings, therapies, any complications and treatment plan to the patient. With the patients consent, all family members andpatient support persons who were present at the conclusion of the procedure have been notified of these results and treatment plans as well. Post Interventional Conclusion/Physician Disposition: (check one main category) Inpatient procedure, continue inpatient status (no procedural complication required) Giles Navarrete MD PagerNumber: [phone] 06/15/2017 9:21 documented in this encounter Consult Notes Tiffanie Choi - 06/16/2017 1410 ESTAssociated Order(s): CONSULT NUTRITION Nutrition S: Pt reports his appetite is good. Lives in senior housing, generally has [employer] for lunch and dinner.Doesn't add salt to most foods, sometimes to the [employer] they don't use any salt in cooking. Rarely goes out for fast food or tunisian, occasionally has pizza with grandkids. Diet Rx: Cardiac Meds: statin, cefazolin, lasix, aspart, lantus Labs: Hgb/Hct:13.7/40.2 (06/16 605) Na/K/Cl/CO2/Gluc/M/4.4/102/29/--/1.8 (06/16 605) Blood Glucose (Lab Resulted): 177 (06/16 114) BUN/Cr/Phos/AlkPhos/Ca/CalcCa/TG/CRP:--/0.73/--/--/--/--/185/-- (06/15 538- 06/16 605) Wt Readings from Last 5 Encounters: 06/16/17 (!) 135.4 kg (298 lb 8 oz) Weights Filed This Admission 06/14/17 2257 06/16/17 0600 Weight: (!) 137.2 kg (302 lb 6.4 oz) (!) 135.4 kg (298 lb 8 oz) Body mass index is 48.18 kg/(m^2). A: 67 yo male admitted w/NSTEMI. Consult rec'd for CHF diet ed. Pt reports good appetite currently and at baseline. Admits to occasionally adding salt to food, discussed alternatives (ie Mrs Ibarra). Reviewed importance of good nutrition for health and strength, encouraged portion control and moderationwith higher Na items (ie pizza) as well as limiting high salt foods. Pt reports seeing outpatient RD re: DM, and appeared quite proud that he has been able to keep his A1c under 7%. Positive feedback provided re: healthy choices leading to BG control, emphasized how success in managing BG supports success in improving heart health. Again encouraged moderation and portion control. Pt verbalized understanding of topics discussed, states no further questions. Plan: Continue diet Diet ed provided Encourage good PO within dietary restrictions Monitor intake, wgt, labs RD following Tiffanie Choi MS, RD Pager [phone] documented in this encounter Miscellaneous Notes Plan of Care - Janae Becerra RN - 06/17/2017 1332 EST Problem: Daily Care Plan Goals Goal: Care Plan Documentation Outcome: Met This Shift 06/17/17 0758 Care Plan Focus Area of Focus Discharge Plan Goal This Shift home D: Discharge order obtained A: right & left IVD/C'd catheter intact. Monitor discontinued. Pt & son taught discharge instructions. Given prescriptions along with medication sheets and copy of AVS. R: Discharge home lan of Care - Paradise Dockery RN - 06/17/2017 0223 EST Problem: Daily Care Plan Goals Goal: Care Plan Documentation Outcome: Ongoing 06/16/172024 Care Plan Focus Area of Focus Circulatory Status Goal This Shift VSS Data: assumed care of pt at 1900. Pt A&OX3. Denies cp or discomfort. C/o NESS. Hep gtt running at17.7ml/hr. NSR with BBB on tele. Pt on 2l O2 for comfort. Action: VS and assessment documented in flowsheets per protocol. Meds administered per eMAR. PRN melatonin administered. Strict I&Os with 1500 ml fluid restriction. Response: Pt resting in bed. VSS. NSR w BBB on tele. Will continue to monitor PARDAISE DOCKERY RN 06/17/2017 2:17 lan of Care - Raj Escalera RN - 06/16/2017 6116 EST Problem: Daily Care Plan Goals Goal: Care Plan Documentation Outcome: Ongoing 06/16/17 0734 Care Plan Focus Area of Focus Circulatory Status Goal This Shift conserve energy, reduce dysnea D: BP 124/70 (BP Cuff Location: Left arm, Patient Position: Sitting) Pulse 89 Temp 36.4 ??C (97.5 ??F) (Tympanic) Resp 20 Ht 167.6 cm (66) Wt (!) 135.4 kg (298 lb 8 oz) Comment: CHF SpO2 96% BMI 48.18 kg/m2 Patient s/p LHC yesterday; deemed not a surgical candidate for CABG, medical management currently, possible high risk PCI w/stents. Patient continues NESS, complains of not being able to sleep at night due to feeling SOB. Wears O2 for his own comfort at times. Had been NPO until 1300 for possible procedure today, but returned to cardiac diet currently. Knowledge deficient with CHF, diabetes managementand nutrition. A: VSS, gave meds as per MAR, provided education on newly prescribed meds as well as lifestyle changes and importance of diet. Provided reassurance about uncertainty of procedures and his diagnosis. R: Patient currently eating, sitting in chair, has read educational materials provided by this nurseas well as CHF nurse and feels overwhelmed. Aware of plan to possibly have high risk PCI or managemedically. Nursing to continue to monitor and assess as needed. harmacy Note - Andie Stephens, [facility] - 06/16/2017 1045 EST Transitions of Care - Pharmacy Admission Medication Reconciliation Carlos Mercer is a 67 y.o. male admitted on 06/14/2017 for NSTEMI (non-ST elevated myocardial infarction) ([facility]) Pharmacist Interventions/Recommendations: 1. Prior to admission medication list has been reviewed and updated. See below for details. 2. Confirmed home insulin regimen with pharmacy and with PCP's office. - Novoolg (insulin aspart): Inject 30 units into the skin 3 times daily pre- meals. Give an additional 1 unit for every 20mg/dL of glucose above 140 mg/dL. NOTE: Patient states he usually injects 38 Units into the skin 3 times daily with meals. - Levemir (insulin detemir): Inject 65 units into the skin at bedtime 3. Patient was taking lisinopril 20mg daily at home COTA, however, lisinopril has been ordered to start at 5mg daily. Please consider adjusting the dose if clinically appropriate. 4. Patient was taking metoprolol XL 25mg daily COTA. He is currently receiving metoprolol XL 50mg daily. If patient is discharged on an increased dose of metoprolol XL, please send a new prescription tothe patient's pharmacy. 5. There were multiple medications missing from the patient's COTA list. Please consider re-ordering the following medications if clinically appropriate: - Trazodone 50mg qhs prn for sleep - Magnesium oxide 400mg every morning and 800mg at night - Gabapentin 300mg daily bid prn as patient has increased his dose for pain control. 6. Patient states he was taking metformin 2000mg BID at home COTA. This exceeds the maximum recommended dose of 2550mg /day. Confirmed with PCP's office that the metformin dose should be 1000mg bid. Informed PCP's office that patient has been taking 2000mg bid.--> PCP will discuss dosing discrepancywith patient at his next appointment. Until then, patient agreed he will decrease the dose to 1000mgbid when he returns home 7. Informed PCP that patient has increased his dose of gabapentin to 300mg 2-3 times daily as needed.--> This will also be addressed at his next appointment. 8. Per discussion with Dr. Whitaker, adalimumab is on hold for now. Patient has been informed as well. 9. Patient mentioned he feels overwhelmed with all of his prescription bottles. He sets up a weekly medication box but still feels he needs some help.--> Recommended at discharge, he should bring ALL of his medication bottles to the pharmacy along with the hospital discharge medication list and have the pharmacist help him sort out his bottles. I also recommended he brings all of his bottles to his next PCP appointment so they can review them together. 10. Recommend talking with Case Management to see if patient qualifies for VNA services, it may be very beneficial to him. 11. Paged team to discuss findings. Please feel free to contact me or the Transitions of Care Pharmacy team with questions or concerns. Thank you. Andie Stephens, Bev, [facility] [phone] Pager: [phone] Medication History Obtained from:Patient (self) , [facility] in [facility]; patient; PCP 's offic; Power Generation Equipment Repairer Dr. Alejandro Reese's office. Medication reconciliation was performed. Discrepancies are noted in BOLD. Clarifications are noted in RED. Medications Medication Sig Notes ??? adalimumab (HUMIRA PEN) 40 mg/0.8 mL pen kit Inject 40 mg into the skin every Inject 40mg into the skin every other Confirmed dose with Dr. Reese's office, next dose due 06/16/2017. ??? atorvastatin (LIPITOR) 40 mg tablet atorvastatin (LIPITOR) 80 mg tablet Take 80 mg by mouth daily. ??? insulin aspart (NOVOLOG FLEXPEN) 100 unit/mL injectable pen Inject 30 units into the skin 3 times daily pre-meals. Give an additional 1 unit for every 20mg/dL of glucose above 140 mg/dL. Patient states he usually injects 38 Units into the skin 3 times daily with meals. ??? Levemir Flextouch pen 100 U Inject 65 Units into the skin at bedtime. ??? liraglutide (VICTOZA) 0.6 mg/0.1 mL (18 mg/3 mL) injectable pen Inject 0.6 mg into the skin daily. ??? lisinopril (PRINIVIL, ZESTRIL) 10 mg tablet lisinopril (PRINIVIL, ZESTRIL) 20 mg tablet Take 10 mg by mouth daily. Take 20 mg by mouth daily. ??? traMADol (ULTRAM) 50 mg tablet Take 50 mg by mouth every 6 hours as needed for Pain. Takes rarely Additional Prior to Admission Prescription Medications as noted by Patient/Family: Metformin HCl (GLUCOPHAGE) 1000 mg tabletTake one tablet by mouth twice a day for blood sugar Patient reports taking 2 tabs (2000mg) BID, which exceeds the max dose of 2550mg/day PCP's office confirmed dose should be 1000mg BID Aspirin 81 mg tablet Take one tablet by mouth daily Metoprolol succinate ER (TOPROL XL) 25 mg tabletTake one tablet by mouth daily Gabapentin (NEURONTIN) 300 mg capsule Take one capsule by mouth everyday as needed Patient reports taking 300mg 3 times daily as needed. PCP's office confirmed prescription is for 1 tablet daily. Magnesium Oxide 400 mg tablet Take one tablet by moth three times per day Patient takes one tablet in the morning and two at night Trazodone (DESYREL) 50 mg tablet Take one tablet by mouth at bedtime to help sleep Additional Prior to Admission Qbgq-ber-Nmcomxt Products as noted by Patient/Family: [facility] Diabetic Vitamins 1 tab daily [place]-3/ Fish oil 1000 mg/day Preferred Pharmacy: [id number] - [address] Barriers to Learning: none Barriers to Obtaining Medications: Humira is provided by acid tester through prescription assistance program Barriers to Taking Medications: Patient prefers to take all medications at the same time in the morning if possible. Notes by Metal Fabricating Inspector/Community Administrator: - Confirmed Patient contact information, allergies and primary care providers. - Patient reports that he received duplicate prescriptions with the transition from [facility] to [facility] and would like assistance in reviewing current medication bottles. - Patient is using a weekly medication box to store his medications. Ellen Carcamo [facility] PharmD Candidate Pager: [phone] [[place] Pharmacist] lan of Care - Caty Bone RN - 06/15/2017 2312 EST Problem: Daily Care Plan Goals Goal: Care Plan Documentation Outcome: Ongoing 06/15/171955 Care Plan Focus Area of Focus Circulatory Status Goal This Shift VSS BP 128/64 (BP Cuff Location: Left arm, Patient Position: Sitting) Pulse 89 Temp 36.3 ??C (97.3 ??F) (Tympanic) Resp 20 Ht 167.6 cm (66) Wt (!) 137.2 kg (302 lb 6.4 oz) SpO2 95% BMI 48.81kg/m2 Data: Racing Driver assumed care of pt at 1900. Patient admitted 06/14 with NSTEMI. History of CAD, HTN, DM2. Patient had LHC today with no intervention performed, as patient was found to have MVD. Patient is alert and oriented x 3, moves with a CG assist 2/2 NESS. Patient in SR with first degree AVB and LBBB.Patient took a shower this shift with MD approval, stating patient feels this will help him sleep better. Action: Meds admin per eMAR, tele monitored per policy, VS taken per MD order. Patient with no complaints of pain this shift. Response: Patient appears to be resting comfortably in bed at this time, but has been back and forthto the chair for comfort. Patient is wearing 2L O2 via NC for comfort, satting in the high 90s. WCTM. CATY BONE RN 06/15/2017 23:09 lan of Care - Marsha Johnson - 06/15/2017 1326 EST Problem: Daily Care Plan Goals Goal: Care Plan Documentation Outcome: Ongoing 06/15/17 0746 Care Plan Focus Area of Focus Circulatory Status Goal This Shift VSS, tele stable Data: Assumed care of pt at 0700. Pt admitted for CP/NSTEMI. S/p LHC this am with MVD, right radial site c/d/i, +CSMT's. Pt denies any CP, VSS, SR with BBB on tele. Pt with notable dyspnea on exertion and increasing edema in LE's and abdomen. Action: Plans for CT surg eval. Pt and family updated on plan of care. Will give lasix to diuresis, strict I+O's. Response: No complaints at this time. Will continue to monitor and assess appropriately. Marsha Johnson RN 06/15/2017 13:24 lan of Care - Shima Hernandez RN - 06/14/2017 2333 EST Problem: Daily Care Plan Goals Goal: Care Plan Documentation Outcome: Met This Shift 06/14/17 2257 Care Plan Focus Area of Focus Circulatory Status Goal This Shift VSS D: Patient arrived to [place] [address]. Direct transfer from [facility] for substernal CP/SOB/NESS/Orthopnea.Pt s/p positive stress test on OP basis and was referred by PCP. Vital signs noted, and tele applied. Patient in sinus rhythm /c occasional PVCs, heart rate in 90s. Patient denies chest pain and discomfort. Does endorse SOB with ambulation. Lung sounds are diminished bilaterally, noted bibasilar fine crackles, receiving 2L/NC and sating 98%. A: Assessment as documented in flow sheet. Admission database completed. Patient orientated to room,equipment, and care plan. HOB elevated. Educated pt of NPO status. R: Pt adherent to plan of care. Possible procedure tomorrow and current NPO status. Continue to monitor and document per protocol. documented in this encounter Plan of Treatment Pending Results Name Type Priority Associated Diagnoses Date/Ti me OUTSIDE IMAGES - OTHER Imaging 06/14 22:03 EST CHEST OUTSIDE IMAGES - NM OTHER Imaging 22:03 EST Scheduled Referrals Name Type Priority Associated Order Schedule Diagnoses AMB CONS/FOLLOW UP Outpatient Referral Routine NSTEMI (non-ST Ordered: CARDIAC REHABILITATION elevated 06/17 myocardial infarction) ([facility]-HCC) (HCC-CMS) Acute systolic heart failure (CMS-HCC) (HCC-CMS) AMB CONS/FOLLOW UP Outpatient Referral Routine NSTEMI (non-ST Ordered: CARDIOLOGY elevated 06/17/2017 myocardial infarction) (CMS-HCC) (HCC-CMS) Acute systolic heart failure (CMS-HCC) (HCC-CMS) AMB CONS/FOLLOW UP Outpatient Referral Routine NSTEMI (non-ST Ordered: PRIMARY CARE PHYSICIAN elevated 06/17 myocardial infarction) (CMS-HCC) (HCC-CMS) Acute systolic heart failure ([facility]-HCC) ([facility]-CMS) documented as of this encounter Procedures Procedure Name Priority Date/Time Associated Comments Diagnosis ECG REPORT - SCANNED 06/22/2017 11:00 EST ECG REPORT - SCANNED 06/22/2017 11:00 EST ECG REPORT - SCANNED 06/21/2017 12:56 EST GLUCOSE, GLUCOMETER Routine 06/17/2017 11:41 Resu lts for this EST procedure are i n the results section. GLUCOSE, GLUCOMETER Routine 06/17/2017 7:25 Resul ts for this EST procedure are i n the results section. HEPARIN LEVEL - STAT 06/17/2017 5:53 Results f or this UNFRACTIONATED HEPARIN EST proce dure are in the results section. COMPLETE BLOOD COUNT Routine 06/17/2017 5:53 Resu lts for this EST procedure are i n the results section. MAGNESIUM Routine 06/17/2017 5:53 Results for this EST procedure are i n the results section. CREATININE Routine 06/17/2017 5:53 Results for this EST procedure are i n the results section. ELECTROLYTES Routine 06/17/2017 5:53 Results for this EST procedure are i n the results section. GLUCOSE, GLUCOMETER Routine 06/16/2017 20:26 Resu lts for this EST procedure are i n the results section. GLUCOSE, GLUCOMETER Routine 06/16/2017 17:00 Resu lts for this EST procedure are i n the results section. GLUCOSE, GLUCOMETER Routine 06/16/2017 11:42 Resu lts for this EST procedure are i n the results section. GLUCOSE, GLUCOMETER Routine 06/16/2017 7:01 Resul ts for this EST procedure are i n the results section. HEPARIN LEVEL - STAT 06/16/2017 6:05 Results f or this UNFRACTIONATED HEPARIN EST proce dure are in the results section. COMPLETE BLOOD COUNT Routine 06/16/2017 6:05 Resu lts for this EST procedure are i n the results section. MAGNESIUM Routine 06/16/2017 6:05 Results for this EST procedure are i n the results section. CREATININE Routine 06/16/2017 6:05 Results for this EST procedure are i n the results section. ELECTROLYTES Routine 06/16/2017 6:05 Results for this EST procedure are i n the results section. HEPARIN LEVEL - STAT 06/16/2017 0:28 Results f or this UNFRACTIONATED HEPARIN EST proce dure are in the results section. GLUCOSE, GLUCOMETER Routine 06/15/2017 20:53 Resu lts for this EST procedure are i n the results section. GLUCOSE, GLUCOMETER Routine 06/15/2017 16:45 Resu lts for this EST procedure are i n the results section. HEPARIN LEVEL - STAT 06/15/2017 15:13 Results for this UNFRACTIONATED HEPARIN EST proce dure are in the results section. ECHOCARDIOGRAM Routine 06/15/2017 14:12 Results f or this EST procedure are i n the results section. GLUCOSE, GLUCOMETER Routine 06/15/2017 14:09 Resu lts for this EST procedure are i n the results section. GLUCOSE, GLUCOMETER Routine 06/15/2017 11:30 Resu lts for this EST procedure are i n the results section. INPATIENT ADD-ON Routine 06/15/2017 6:15 Results for this EST procedure are i n the results section. TROPONIN I Routine 06/15/2017 5:38 Results for this EST procedure are i n the results section. HEPARIN LEVEL - STAT 06/15/2017 5:38 Results f or this UNFRACTIONATED HEPARIN EST proce dure are in the results section. COMPLETE BLOOD COUNT Routine 06/15/2017 5:38 Resu lts for this EST procedure are i n the results section. NT PRO BNP Routine 06/15/2017 5:38 Results for this EST procedure are i n the results section. MAGNESIUM Routine 06/15/2017 5:38 Results for this EST procedure are i n the results section. CREATININE Routine 06/15/2017 5:38 Results for this EST procedure are i n the results section. LIPID PROFILE (INCLUDES Routine 06/15/2017 5:38 R esults for this CHOLESTEROL, EST procedure are i n TRIGLYCERIDES, HDL, the resu lts LDL) section. ELECTROLYTES Routine 06/15/2017 5:38 Results for this EST procedure are i n the results section. GLUCOSE, GLUCOMETER Routine 06/15/2017 5:26 Resul ts for this EST procedure are i n the results section. GLUCOSE, GLUCOMETER Routine 06/15/2017 1:07 Resul ts for this EST procedure are i n the results section. TROPONIN I Routine 06/15/2017 0:02 Results for this EST procedure are i n the results section. COMPLETE BLOOD COUNT Routine 06/15/2017 0:02 Resu lts for this EST procedure are i n the results section. NT PRO BNP Routine 06/15/2017 0:02 Results for this EST procedure are i n the results section. MAGNESIUM Routine 06/15/2017 0:02 Results for this EST procedure are i n the results section. HEMOGLOBIN A1C Routine 06/15/2017 0:02 Results fo r this EST procedure are i n the results section. CREATININE Routine 06/15/2017 0:02 Results for this EST procedure are i n the results section. ELECTROLYTES Routine 06/15/2017 0:02 Results for this EST procedure are i n the results section. EKG 12-LEAD Routine 06/14/2017 23:33 Results for this EST procedure are i n the results section. documented in this encounter Results (ABNORMAL) GLUCOSE, GLUCOMETER (06/17/2017 11:41 EST) Glucose, 193 (H) 70 - 100 [facility] Fingerstick mg/dl LABORATORY SERVICES Compressor Stations Superintendent [place] [id number]: [facility] Test Performed by LABORATORY Nursing Services SERVICES Specimen Blood Performing Organization Address City/State/ZIP Code Phon e Number [facility] [address] [place] [address] SERVICES (ABNORMAL) GLUCOSE, GLUCOMETER (06/17/2017 7:25 EST) Glucose, 126 (H) 70 - 100 [facility] Fingerstick mg/dl LABORATORY SERVICES Compressor Stations Superintendent [place] [id number]: [facility] Test Performed by LABORATORY Nursing Services SERVICES Specimen Blood Performing Organization Address City/State/ZIP Code [facility] e Number [facility] [address] [place] [address] SERVICES (ABNORMAL) HEMAGRAM (06/17/2017 5:53 EST) Pathologist Sig nature WBC 12.56 (H) 4.0 - 10.4 K/cmm [facility] SERVICES RBC 4.52 4.36 - 5.78 M/cmm [facility] SERVICES Hemoglobin 13.3 (L) 13.8 - 17.3 gm/dl [facility] SERVICES HCT 38.5 (L) 39.5 - 50.2 % [facility] SERVICES MCV 85 81 - 95 fl [facility] SERVICES MCH 29.4 27.6 - 33.0 pg [facility] SERVICES MCHC 34.5 32.8 - 36.4 gm/dl [facility] LABOR[facility] SERVICES RDW-CV 14.0 <14.2 % [facility] SERVICES RDW-SD 42.9 <46.0 fl [facility] LAB[facility] SERVICES PLT 257 141 - 377 K/cmm [facility] SERVICES MPV 10.8 9.5 - 12.7 fl [facility] SERVICES Specimen Blood specimen (specimen) - Blood Performing Organization Address City/[facility]/ZIP Code Phon e Number [facility] [address] [place] [address] SERVICES HEPARIN LEVEL - UNFRACTIONATED HEPARIN (06/17/2017 5:53 EST) Heparin Level-UFH 0.32 IU/mL [facility] Comment: LABORATORY SERVICES Unfractionated heparin therapeutic range = 0.3-0.7 IU/ ml This test is not intended for monitoring direct Xa inhibitors, direct thrombin inhibitors, or fondaparinux. Exogenous ATIII is NOT supplied in this assay. For unexpected or persistently low levels, consider measuring patient's ATIII level. Specimen Blood specimen (specimen) - Blood Performing Organization Address [facility]/ZIP Code Phon e Number [facility] [address] [place] [address] SERVICES MAGNESIUM (06/17/2017 5:53 EST) Pathologist Sig nature Magnesium 1.9 1.7 - 2.8 mg/dl [facility] LABORA TORY SERVICES Specimen Blood specimen (specimen) - Blood Performing Organization Address [facility] Phon e Number [facility] [address] [place] [address] SERVICES ELECTROLYTES (06/17/2017 5:53 EST) Pathologist Sig nature Sodium 141 136 - 145 mEq/L [facility] LABORA TORY SERVICES Potassium 3.9 3.5 - 5.0 mEq/L [facility] LABORA TORY SERVICES Chloride 104 96 - 110 mEq/L [facility] LABORAT ORY SERVICES CO2 28 22 - 32 mEq/L [facility] LABORATO RY SERVICES Specimen Blood specimen (specimen) - Blood Performing Organization Address [facility] Phon e Number [facility] [address] [place] [address] SERVICES CREATININE (06/17/2017 5:53 EST) Creatinine 0.69 0.66 - 1.25 [facility] mg/dl LABORATORY SERVICES GFR, Calculated 100 >60 [facility] Comment: ml/min/1.73m2 LABORATORY eGFR calculated using CKD-EPI equation for SERVICES non Americans. Multiply eGFR by 1.16 for Americans. Specimen Blood specimen (specimen) - Blood Performing Organization Address [facility] Phon e Number [facility] [address] [place] [address] SERVICES (ABNORMAL) GLUCOSE, GLUCOMETER (06/16/2017 20:26 EST) Glucose, 125 (H) 70 - 100 [facility] Fingerstick mg/dl LABORATORY SERVICES Compressor Stations Superintendent ID [id number]: [facility] Test Performed by LABORATORY Nursing Services SERVICES Specimen Blood Performing Organization Address [facility]/ZIP [facility] Phon e Number [facility] [address] [place] [address] SERVICES (ABNORMAL) GLUCOSE, GLUCOMETER (06/16/2017 17:00 EST) Glucose, 179 (H) 70 - 100 [facility] Fingerstick mg/dl LABORATORY SERVICES Compressor Stations Superintendent ID [id number]: [facility] Test Performed by LABORATORY Nursing Services SERVICES Specimen Blood Performing Organization Address [facility]/ZIP Code Phon e Number [facility] [address] [place] [address] SERVICES (ABNORMAL) GLUCOSE, GLUCOMETER (06/16/2017 11:42 EST) Glucose, 177 (H) 70 - 100 [facility] Fingerstick mg/dl LABORATORY SERVICES Compressor Stations Superintendent ID [id number]: [facility] Test Performed by LABORATORY Nursing Services SERVICES Specimen Blood Performing Organization Address [facility] Phon e Number [facility] [address] [place] [address] SERVICES (ABNORMAL) GLUCOSE, GLUCOMETER (06/16/2017 7:01 EST) Glucose, 160 (H) 70 - 100 [facility] Fingerstick mg/dl LABORATORY SERVICES Compressor Stations Superintendent ID [id number]: [facility] Test Performed by LABORATORY Nursing Services SERVICES Specimen Blood Performing Organization Address [facility] Phon e Number [facility] LABORATORY [address] [place] [address] SERVICES HEPARIN LEVEL - UNFRACTIONATED HEPARIN (06/16/2017 6:05 EST) Heparin Level-UFH 0.37 IU/mL [facility] Comment: LABORATORY SERVICES Unfractionated heparin therapeutic range = 0.3-0.7 IU/ ml This test is not intended for monitoring direct Xa inhibitors, direct thrombin inhibitors, or fondaparinux. Exogenous ATIII is NOT supplied in this assay. For unexpected or persistently low levels, consider measuring patient's ATIII level. Specimen Blood specimen (specimen) - Blood Performing Organization Address [facility]/ZIP [facility] [place] Phon e Number [facility] LABORATORY [address] [place] [address] SERVICES MAGNESIUM (06/16/2017 6:05 EST) Pathologist Sig nature Magnesium 1.8 1.7 - 2.8 mg/dl [facility] LABORA TORY SERVICES Specimen Blood specimen (specimen) - Blood Performing Organization Address [facility]/ZIP [facility] [place] Phon e Number [facility] LABORATORY [address] [place] [address] SERVICES ELECTROLYTES (06/16/2017 6:05 EST) Pathologist Sig nature Sodium 140 136 - 145 mEq/L [facility] LABORA TORY SERVICES Potassium 4.4 3.5 - 5.0 mEq/L [facility] LABORA TORY SERVICES Chloride 102 96 - 110 mEq/L [facility] LABORAT ORY SERVICES CO2 29 22 - 32 mEq/L [facility] LABORATO RY SERVICES Specimen Blood specimen (specimen) - Blood Performing Organization Address City/State/ZIP Code Phon e Number [facility] LABORATORY [address] [place] [id number] SERVICES CREATININE (06/16/2017 6:05 EST) Creatinine 0.73 0.66 - 1.25 [facility] mg/dl LABORATORY SERVICES GFR, Calculated 97 >60 [facility] Comment: ml/min/1.73m2 LABORATORY eGFR calculated using CKD-EPI equation for SERVICES non Americans. Multiply eGFR by 1.16 for Americans. Specimen Blood specimen (specimen) - Blood Performing Organization Address City/[facility]/ZIP Code Phon e Number [facility] LABORATORY [address] [place] [address] SERVICES (ABNORMAL) HEMAGRAM (06/16/2017 6:05 EST) Pathologist Sig nature WBC 12.64 (H) 4.0 - 10.4 K/cmm [facility] LABORATORY SERVICES RBC 4.53 4.36 - 5.78 M/cmm [facility] LABORATORY SERVICES Hemoglobin 13.7 (L) 13.8 - 17.3 gm/dl [facility] LABORATORY SERVICES HCT 40.2 39.5 - 50.2 % [facility] LABORATORY SERVICES MCV 89 81 - 95 fl [facility] LABORATORY SERVICES MCH 30.2 27.6 - 33.0 pg [facility] LABORATORY SERVICES MCHC 34.1 32.8 - 36.4 gm/dl [facility] LABORATORY SERVICES RDW-CV 13.9 <14.2 % [facility] LABORATORY SERVICES RDW-SD 44.7 <46.0 fl [facility] LABORATORY SERVICES PLT 261 141 - 377 K/cmm [facility] LABORATORY SERVICES MPV 10.9 9.5 - 12.7 fl [facility] LABORATORY SERVICES Specimen Blood specimen (specimen) - Blood Performing Organization Address City/[facility]/ZIP Code Phon e Number [facility] LABORATORY [address] [place] [address] SERVICES HEPARIN LEVEL - UNFRACTIONATED HEPARIN (06/16/2017 0:28 EST) Heparin Level-UFH 0.39 IU/mL [facility] Comment: LABORATORY SERVICES Unfractionated heparin therapeutic range = 0.3-0.7 IU/ ml This test is not intended for monitoring direct Xa inhibitors, direct thrombin inhibitors, or fondaparinux. Exogenous ATIII is NOT supplied in this assay. For unexpected or persistently low levels, consider measuring patient's ATIII level. Specimen Blood specimen (specimen) - Blood Performing Organization Address City/State/ZIP Code Phon e Number [facility] LABORATORY [address] [place] [address] SERVICES (ABNORMAL) GLUCOSE, GLUCOMETER (06/15/2017 20:53 EST) Glucose, 160 (H) 70 - 100 [facility] Fingerstick mg/dl LABORATORY SERVICES Compressor Stations Superintendent [place] [id number]: [facility] Test Performed by LABORATORY Nursing Services SERVICES Specimen Blood Performing Organization Address City/[facility]/ZIP Code Phon e Number [facility] LABORATORY [address] [place] [address] SERVICES (ABNORMAL) GLUCOSE, GLUCOMETER (06/15/2017 16:45 EST) Glucose, 199 (H) 70 - 100 [facility] Fingerstick mg/dl LABORATORY SERVICES Compressor Stations Superintendent [place] [id number]: [facility] Test Performed by LABORATORY Nursing Services SERVICES Specimen Blood Performing Organization Address City/[facility]/ZIP Code Phon e Number [facility] LABORATORY [address] [place] [address] SERVICES HEPARIN LEVEL - UNFRACTIONATED HEPARIN (06/15/2017 15:13 EST) Heparin Level-UFH 0.22 IU/mL [facility] Comment: LABORATORY SERVICES Unfractionated heparin therapeutic range = 0.3-0.7 IU/ ml This test is not intended for monitoring direct Xa inhibitors, direct thrombin inhibitors, or fondaparinux. Exogenous ATIII is NOT supplied in this assay. For unexpected or persistently low levels, consider measuring patient's ATIII level. Specimen Blood specimen (specimen) - Blood Performing Organization Address City/[facility]/ZIP Code Phon e Number [facility] LABORATORY [address] [place] [address] SERVICES ECHOCARDIOGRAM (06/15/2017 14:12 EST) Specimen Narrative [facility] CARDIOLOGY FELICIANO CONNELLY S - 06/15/2017 15:41 EST *Interpreting Group:* *[facility]* [address] [place] [address] Date of study: 06/15/2017 Transthoracic Echocardiography M-mode, complete 2D, complete spectral D oppler, and color Doppler *STUDY CONCLUSIONS* Summary: 1. Left ventricle: The cavity size was m ildly dilated. Wall thickness ?? was increased in a pattern of modera te LVH. Systolic function was ?? severely reduced. The estimated ejec tion fraction was 25-30%. Severe ?? diffuse hypokinesis with regional va riations. Akinesis of the ?? mid-apicalanteroseptal, anterior, an d apical myocardium. 2. Mitral valve: Mildly calcified annulu s. Mildly thickened leaflets. ?? There was mild to moderate regurgita tion. 3. Right ventricle: The cavity size was normal. Wall thickness was ?? normal. Systolic function was normal . *PATIENT PRESENTATION* Height: ? 167.6cm ((66in) ) S/D Pressure: 126 / 72 Weight: ? 137kg ((301.4lb) ) BSA: ?2.61m^2 Test start time: ??01:10 PM. Test stop time: ??02:00 PM. ATTENDING ?Slick Bentley MD ADMITTING ?Jerome Egan MD FELLOW ? Beba Matta MD PERFORMING ?? [facility] ORDERING ? Talon Parsons. REFERRING ?Talon Parsons. BAG LOADER MACHINE OPERATOR ??Jimi Santos *PROCEDURE DATA* Procedure information: ??This study was interpreted by [facility]. Pertin ent images and digital data are archived for permanent storage and are a vailable for subsequent review. Study status: ??Routine. Transthoracic e chocardiography. ??M-mode, complete 2D, complete spectral Doppler, and color Doppler. A Transthoracic Echocardiogram was perform ed. Scanning was performed from the parasternal, apical, subcostal, and suprasternal notch acoustic windows. Images were obtained using a iSpye IE33 8 cardiac ultrasound machine. Image quality was poor. The nadege dy was technically limited due to body habitus. Intravenous contrast (D efinity) was administered by Jimi Santos to enhance delineation of left ventricular endocardial borders. Prior to administration at as t two (2) contiguous segments of the left ventricular border were not vis ualized. Definity amount administered was a total of 3ml. One via l was used. ??Study completion: The patient tolerated the procedure well . There were no complications. *INDICATIONS AND HISTORY* Indications: ?? NSTEMI I21.4. *CARDIAC ANATOMY* Left ventricle: ??The cavity size was mi ldly dilated. Wall thickness was increased in a pattern of moderate LVH. Systolic function was severely reduced. The estimated ejection fraction was 25-30%. ??Severe diffuse hypokinesis with regional variations. ?? Regional wall motion abnormalities: ?? Akinesis of the mid-ap icalanteroseptal, anterior, and apical myocardium. The study is not tech nically sufficient to allow evaluation of LV diastolic function. Aortic valve: ??Poorly visualized. Mobil ity was not restricted. ??Doppler: Transvalvular velocity was within the n ormal range. There was no stenosis. There was no significant regur gitation. Aorta: ??Aortic root: The aortic root wa s normal in size. Ascending aorta: The ascending aorta was normal in size. Mitral valve: ?? Mildly calcified annulu s. Mildly thickened leaflets. Mobility was not restricted. ??Doppler: ??Transvalvular velocity was within the normal range. There was no ev idence for stenosis. There was mild to moderate regurgitation. Left atrium: ??The atrium was normal in size. Right ventricle: ??The cavity size was n ormal. Wall thickness was normal. Systolic function was normal. Pulmonic valve: ?Doppler: ??Transval vular velocity was within the normal range. There was no evidence for stenosis. There was no significant regurgitation. Tricuspid valve: ?? Structurally normal valve. ?Doppler: ??Transvalvular velocity was within the normal range. Th ere was no evidence for stenosis. There was no significant regur gitation. Pulmonary artery: ?Systolic pressure could not be accurately estimated. Right atrium: ??The atrium was normal in size. Pericardium: ??There was no pericardial effusion. Systemic veins: Inferior vena cava: The vessel was sahil l in size. Measurements Left ventricle ? Value ?Reference LV ID, ED, PLAX ?5.5 ?? cm ? 3.5 - 6.0 LV ID, ES, PLAX ?(H) ? 4.1 ?? cm ? 2.1 - 4.0 LV PW thickness, ED, PLAX ?1.6 ?? cm ? LV end-diastolic volume, 1-p A2C ? 150 ?? ml ? LV ejection fraction, 1-p A2C ?30 ?% ? LV end-diastolic volume, 1-p A4C ? 149 ?? ml ? LV ejection fraction, 1-p A4C ?30 ?% ? Ventricular septum ? Value ?Reference IVS thickness, ED, PLAX ?1.4 ?? cm ? Aorta ?Value ?Reference Aortic root ID ? 3.1 ?? cm ? Ascending aorta ID, A-P ?3.0 ?? cm ? Ascending aorta ID, A-P, S ? 3.0 ?? cm ? Left atrium ?Value ?Reference LA ID, A-P, ES ? 4.4 ?? cm ? LA ID/bsa, A-P ? 1.7 ?? cm/m^2 <=2.2 LA ID, M-L, A4C ?4.0 ?? cm ? 2.9 - 4.9 LA area, ES, A4C ? 20.1 ??cm^2 ?? 8.8 - 23.4 LA area, ES, A2C ? 22 ?cm^2 ?? LA volume, S ? 73 ?ml ? LA volume/bsa, S ? 28 ?ml/m^2 LA volume, ES, 1-p A4C ? 61 ?ml ? LA volume/bsa, ES, 1-p A4C ? 23 ?ml/m^2 LA volume, ES, 2-p ? 68 ?ml ? LA volume/bsa, ES, 2-p ? 26 ?ml/m^2 LA volume, ES, A/L ? 61 ?ml ? LA volume/bsa, ES, A/L ? 23 ?ml/m^2 LA/aortic root ratio ? 1.42 ? Legend: (L) ??and ??(H) ??kylee values outside sp ecified reference range. I have personally reviewed the images an d have reviewed and edited the reported findings. Electronically signed by Aayush Bass MD 06/15/2017 15:41 Procedure Note Aayush Bass MD - 06/15/2017 *Interpreting Group:* *[facility]* [address] [place] [address] Date of study: 06/15/2017 Transthoracic Echocardiography M-mode, complete 2D, complete spectral D oppler, and color Doppler *STUDY CONCLUSIONS* Summary: 1. Left ventricle: The cavity size was m ildly dilated. Wall thickness was increased in a pattern of moderate LVH. Systolic function was severely reduced. The estimated ejectio n fraction was 25-30%. Severe diffuse hypokinesis with regional varia tions. Akinesis of the mid-apicalanteroseptal, anterior, and a pical myocardium. 2. Mitral valve: Mildly calcified annulu s. Mildly thickened leaflets. There was mild to moderate regurgitatio n. 3. Right ventricle: The cavity size was normal. Wall thickness was normal. Systolic function was normal. *PATIENT PRESENTATION* Height: 167.6cm ((66in) ) S/D Pressure: 126 / 72 Weight: 137kg ((301.4lb) ) BSA: 2.61m^2 Test start time: 01:10 PM. Test stop time: 02:00 PM. ATTENDING Slick Bentley MD ADMITTING Jerome Egan MD FELLOW Beba Matta MD PERFORMING [facility], Ip ORDERING Talon Parsons. REFERRING Talon Parsons. BAG LOADER MACHINE OPERATOR Jimi Santos *PROCEDURE DATA* Procedure information: This [facility]. Pertin ent images and digital data are archived for permanent storage and are a vailable for subsequent review. Study status: Routine. Transthoracic ech ocardiography. M-mode, complete 2D, complete spectral Doppler, and color Doppler. A Transthoracic Echocardiogram was perform ed. Scanning was performed from the parasternal, apical, subcostal, and suprasternal notch acoustic windows. Images were obtained using a iSpye IE33 8 cardiac ultrasound machine. Image quality was poor. The nadege dy was technically limited due to body habitus. Intravenous contrast (D efinity) was administered by Jimi Santos to enhance delineation of left ventricular endocardial borders. Prior to administration at as t two (2) contiguous segments of the left ventricular border were not vis ualized. Definity amount administered was a total of 3ml. One via l was used. Study completion: The patient tolerated the procedure well . There were no complications. *INDICATIONS AND HISTORY* Indications: NSTEMI I21.4. *CARDIAC ANATOMY* Left ventricle: The cavity size was mild ly dilated. Wall thickness was increased in a pattern of moderate LVH. Systolic function was severely reduced. The estimated ejection fraction was 25-30%. Severe diffuse hypokinesis with regional variations. Re gional wall motion abnormalities: Akinesis of the mid-apica lanteroseptal, anterior, and apical myocardium. The study is not tech nically sufficient to allow evaluation of LV diastolic function. Aortic valve: Poorly visualized. Mobilit y was not restricted. Doppler: Transvalvular velocity was within the n ormal range. There was no stenosis. There was no significant regur gitation. Aorta: Aortic root: The aortic root was normal in size. Ascending aorta: The ascending aorta was normal in size. Mitral valve: Mildly calcified annulus. Mildly thickened leaflets. Mobility was not restricted. Doppler: Tr ansvalvular velocity was within the normal range. There was no ev idence for stenosis. There was mild to moderate regurgitation. Left atrium: The atrium was normal in si ze. Right ventricle: The cavity size was nor mal. Wall thickness was normal. Systolic function was normal. Pulmonic valve: Doppler: Transvalvular v elocity was within the normal range. There was no evidence for stenosis. There was no significant regurgitation. Tricuspid valve: Structurally normal mandi ve. Doppler: Transvalvular velocity was within the normal range. Th ere was no evidence for stenosis. There was no significant regur gitation. Pulmonary artery: Systolic pressure coul d not be accurately estimated. Right atrium: The atrium was normal in s ize. Pericardium: There was no pericardial ef fusion. Systemic veins: Inferior vena cava: The vessel was sahil l in size. Measurements Left ventricle Value Reference LV ID, ED, PLAX 5.5 cm 3.5 - 6.0 LV ID, ES, PLAX (H) 4.1 cm 2.1 - 4.0 LV PW thickness, ED, PLAX 1.6 cm ------ ---- LV end-diastolic volume, 1-p A2C 150 ml LV ejection fraction, 1-p A2C 30 % ---- ------ LV end-diastolic volume, 1-p A4C 149 ml LV ejection fraction, 1-p A4C 30 % ---- ------ Ventricular septum Value Reference IVS thickness, ED, PLAX 1.4 cm -------- -- Aorta Value Reference Aortic root ID 3.1 cm Ascending aorta ID, A-P 3.0 cm -------- -- Ascending aorta ID, A-P, S 3.0 cm ----- ----- Left atrium Value Reference LA ID, A-P, ES 4.4 cm LA ID/bsa, A-P 1.7 cm/m^2 <=2.2 LA ID, M-L, A4C 4.0 cm 2.9 - 4.9 LA area, ES, A4C 20.1 cm^2 8.8 - 23.4 LA area, ES, A2C 22 cm^2 LA volume, S 73 ml LA volume/bsa, S 28 ml/m^2 LA volume, ES, 1-p A4C 61 ml LA volume/bsa, ES, 1-p A4C 23 ml/m^2 -- -------- LA volume, ES, 2-p 68 ml LA volume/bsa, ES, 2-p 26 ml/m^2 ------ ---- LA volume, ES, A/L 61 ml LA volume/bsa, ES, A/L 23 ml/m^2 ------ ---- LA/aortic root ratio 1.42 Legend: (L) and (H) kylee values outside specifie d reference range. I have personally reviewed the images an d have reviewed and edited the reported findings. Electronically signed by Aayush Bass MD 06/15/2017 15:41 Performing Organization Address City/State/ZIP Code Phon e Number [facility] CARDIOLOGY [facility] (ABNORMAL) GLUCOSE, GLUCOMETER (06/15/2017 14:09 EST) Glucose, 151 (H) 70 - 100 [facility] Fingerstick mg/dl LABORATORY SERVICES Compressor Stations Superintendent ID [id number]: [facility] Test Performed by LABORATORY Nursing Services SERVICES Specimen Blood Performing Organization Address City/State/ZIP Code Phon e Number [facility] LABORATORY [address] [place] [address] SERVICES (ABNORMAL) GLUCOSE, GLUCOMETER (06/15/2017 11:30 EST) Glucose, 155 (H) 70 - 100 [facility] Fingerstick mg/dl LABORATORY SERVICES Compressor Stations Superintendent ID [id number]: [facility] Test Performed by LABORATORY Nursing Services SERVICES Specimen Blood Performing Organization Address City/[facility]/ZIP Code Phon e Number [facility] LABORATORY [address] [place] [address] SERVICES INPATIENT ADD-ON (06/15/2017 6:15 EST) Pathologist Sig nature Tests to be added TROPONIN [facility] LABORATORY SERVICES Number for problems [id number] [facility] LABORATORY SERVICES Accession number [id number] [facility] LABORATORY SERVICES Specimen Other Performing Organization Address City/[facility]/ZIP [facility] Phon e Number [facility] LABORATORY [address] [place] [address] SERVICES (ABNORMAL) TROPONIN I (06/15/2017 5:38 EST) Pathologist Sig nature Troponin I (ng/mL) 0.296 (H) <0.034 ng/ml [facility] LABORATORY SERVICES Specimen Blood Performing Organization Address City/[facility]/ZIP [facility] Phon e Number [facility] LABORATORY [address] [place] [address] SERVICES HEPARIN LEVEL - UNFRACTIONATED HEPARIN (06/15/2017 5:38 EST) Heparin Level-UFH 0.29 IU/mL [facility] Comment: LABORATORY SERVICES Unfractionated heparin therapeutic range = 0.3-0.7 IU/ ml This test is not intended for monitoring direct Xa inhibitors, direct thrombin inhibitors, or fondaparinux. Exogenous ATIII is NOT supplied in this assay. For unexpected or persistently low levels, consider measuring patient's ATIII level. Sample retested, result confirmed Specimen Blood specimen (specimen) - Blood Performing Organization Address City/[facility]/ZIP Code Phon e Number [facility] LABORATORY [address] [place] [address] SERVICES (ABNORMAL) NT PRO BNP (06/15/2017 5:38 EST) Pathologist Sig nature NT Pro BNP 1,610 (H) <300 pg/ml [facility] Comment: LABORATORY SERVICES Reference Range: NT-proBNP values less than 300 pg/ml have a 99% negative predictive value for excluding acute congestive heart failure. A diagnostic NT-proBNP cutoff of 900 pg/ml has been suggested in adults over 50 years of age in the absence of renal failure. A cutoff of 1200 pg/ml for patients with an eGFR <60 yields a diagnostic sensitivity and specificity of 89% and 72% for acute congestive failure. Specimen Blood specimen (specimen) - Blood Performing Organization Address [facility] Phon e Number [facility] LABORATORY [address] [place] [address] SERVICES MAGNESIUM (06/15/2017 5:38 EST) Pathologist Sig nature Magnesium 2.1 1.7 - 2.8 mg/dl [facility] LABORA TORY SERVICES Specimen Blood specimen (specimen) - Blood Performing Organization Address [facility] e Number [facility] LABORATORY [address] [place] [address] SERVICES ELECTROLYTES (06/15/2017 5:38 EST) Pathologist Sig nature Sodium 141 136 - 145 mEq/L [facility] LABORA TORY SERVICES Potassium 4.5 3.5 - 5.0 mEq/L [facility] LABORA TORY SERVICES Chloride 104 96 - 110 mEq/L [facility] LABORAT ORY SERVICES CO2 25 22 - 32 mEq/L [facility] LABORATO RY SERVICES Specimen Blood specimen (specimen) - Blood Performing Organization Address [facility] Phon e Number [facility] LABORATORY [address] [place] [address] SERVICES CREATININE (06/15/2017 5:38 EST) Creatinine 0.72 0.66 - 1.25 [facility] mg/dl LABORATORY SERVICES GFR, Calculated 98 >60 [facility] Comment: ml/min/1.73m2 LABORATORY eGFR calculated using CKD-EPI equation for SERVICES non Americans. Multiply eGFR by 1.16 for Americans. Specimen Blood specimen (specimen) - Blood Performing Organization Address [facility] Phon e Number [facility] LABORATORY [address] [place] [address] SERVICES (ABNORMAL) HEMAGRAM (06/15/2017 5:38 EST) Pathologist Sig nature WBC 12.35 (H) 4.0 - 10.4 K/cmm [facility] LABORATORY SERVICES RBC 4.48 4.36 - 5.78 M/cmm [facility] LABORATORY SERVICES Hemoglobin 13.4 (L) 13.8 - 17.3 gm/dl [facility] LABORATORY SERVICES HCT 38.8 (L) 39.5 - 50.2 % [facility] LABORATORY SERVICES MCV 87 81 - 95 fl [facility] LABORATORY SERVICES MCH 29.9 27.6 - 33.0 pg [facility] LABORATORY SERVICES MCHC 34.5 32.8 - 36.4 gm/dl [facility] LABORATORY SERVICES RDW-CV 13.9 <14.2 % [facility] LABORATORY SERVICES RDW-SD 43.3 <46.0 fl [facility] LABORATORY SERVICES PLT 249 141 - 377 K/cmm [facility] LABORATORY SERVICES MPV 10.4 9.5 - 12.7 fl [facility] LABORATORY SERVICES Specimen Blood specimen (specimen) - Blood Performing Organization Address City/State/ZIP Code Phon e Number [facility] LABORATORY [address] [place] [address] SERVICES LIPID PROFILE (INCLUDES CHOLESTEROL, TRIGLYCERIDES, HDL, LDL) (06/15/2017 5:38 EST) Cholesterol 130 mg/dl [facility] Comment: LABORATORY Desirable:<200 SERVICES Borderline High:200-239 High:>ur=254 Triglycerides 185 mg/dl [facility] Comment: LABORATORY Normal:<150 SERVICES Borderline High:150-199 High:200-499 Very High:>ag=375 HDL 43 mg/dl [facility] Comment: LABORATORY Low:<40 SERVICES Normal:40-60 Desirable: >60 LDL, Calculated 50 mg/dl [facility] Comment: LABORATORY Optimal:<100 SERVICES Near Optimal:100-129 Borderline High:130-159 High:160-189 Very High:>lt=356 Chol/HDL Ratio 3.0 [facility] LABORATORY SERVICES Fasting? Unknown [facility] LABORATORY SERVICES Non HDL Cholesterol 87 mg/dl [facility] Comment: LABORATORY Desirable:<130 SERVICES Borderline:130-159 High: 160-189 Very High: >iq=056 Specimen Blood specimen (specimen) - Blood Performing Organization Address [facility] e [facility] LABORATORY [address] [place] [address] SERVICES (ABNORMAL) GLUCOSE, GLUCOMETER (06/15/2017 5:26 EST) Glucose, 130 (H) 70 - 100 [facility] Fingerstick mg/dl LABORATORY SERVICES Compressor Stations Superintendent ID [id number]: [facility] Test Performed by LABORATORY Nursing Services SERVICES Specimen Blood Performing Organization Address [facility] LABORATORY [address] [place] [address] SERVICES (ABNORMAL) GLUCOSE, GLUCOMETER (06/15/2017 1:07 EST) Glucose, 130 (H) 70 - 100 [facility] Fingerstick mg/dl LABORATORY SERVICES Compressor Stations Superintendent [place] [id number]: [facility] Test Performed by LABORATORY Nursing Services SERVICES Specimen Blood Performing Organization [place] LABORATORY [address] [place] [address] SERVICES (ABNORMAL) TROPONIN I (06/15/2017 0:02 EST) Troponin I (ng/mL) 0.323 (H) <0.034 ng/ml [facility] Comment: LABORATORY Slight hemolysis SERVICES Results may be affected due to hemolysis. Specimen Blood specimen (specimen) - Blood Performing Organization Address [facility] LABORATORY [address] [place] [address] SERVICES (ABNORMAL) NT PRO BNP (06/15/2017 0:02 EST) Pathologist Sig nature NT Pro BNP 1,720 (H) <300 pg/ml [facility] Comment: LABORATORY SERVICES Slight hemolysis Results may be affected due to hemolysis. Reference Range: NT-proBNP values less than 300 pg/ml have a 99% negative predictive value for excluding acute congestive heart failure. A diagnostic NT-proBNP cutoff of 900 pg/ml has been suggested in adults over 50 years of age in the absence of renal failure. A cutoff of 1200 pg/ml for patients with an eGFR <60 yields a diagnostic sensitivity and specificity of 89% and 72% for acute congestive failure. Specimen Blood specimen (specimen) - Blood Performing Organization Address [facility]/ZIP Code Phon e Number [facility] LABORATORY [address] [place] [address] SERVICES MAGNESIUM (06/15/2017 0:02 EST) Pathologist Sig nature Magnesium 1.8 1.7 - 2.8 mg/dl [facility] LABORA TORY SERVICES Specimen Blood specimen (specimen) - Blood Performing Organization Address City/[facility]/ZIP Code Phon e Number [facility] LABORATORY [address] [place] [address] SERVICES ELECTROLYTES (06/15/2017 0:02 EST) Pathologist Sig nature Sodium 142 136 - 145 mEq/L [facility] LABORA TORY SERVICES Potassium 4.4 3.5 - 5.0 mEq/L [facility] LABORA TORY SERVICES Chloride 104 96 - 110 mEq/L [facility] LABORAT ORY SERVICES CO2 26 22 - 32 mEq/L [facility] LABORATO RY SERVICES Specimen Blood specimen (specimen) - Blood Performing Organization Address [facility] Phon e Number [facility] LABORATORY [address] [place] [address] SERVICES CREATININE (06/15/2017 0:02 EST) Creatinine 0.67 0.66 - 1.25 [facility] mg/dl LABORATORY SERVICES GFR, Calculated 101 >60 [facility] Comment: ml/min/1.73m2 LABORATORY eGFR calculated using CKD-EPI equation for SERVICES non Americans. Multiply eGFR by 1.16 for Americans. Specimen Blood specimen (specimen) - Blood Performing Organization Address City/[facility]/ZIP Code Phon e Number [facility] LABORATORY [address] [place] [address] SERVICES (ABNORMAL) HEMAGRAM (06/15/2017 0:02 EST) Pathologist Sig nature WBC 12.47 (H) 4.0 - 10.4 K/cmm [facility] LABORATORY SERVICES RBC 4.61 4.36 - 5.78 M/cmm [facility] LABORATORY SERVICES Hemoglobin 13.8 13.8 - 17.3 gm/dl [facility] LABORATORY SERVICES HCT 39.7 39.5 - 50.2 % [facility] LABORATORY SERVICES MCV 86 81 - 95 fl [facility] LABORATORY SERVICES MCH 29.9 27.6 - 33.0 pg [facility] LABORATORY SERVICES MCHC 34.8 32.8 - 36.4 gm/dl [facility] LABORATORY SERVICES RDW-CV 13.9 <14.2 % [facility] LABORATORY SERVICES RDW-SD 43.1 <46.0 fl [facility] LABORATORY SERVICES PLT 247 141 - 377 K/cmm [facility] LABORATORY SERVICES MPV 10.6 9.5 - 12.7 fl [facility] LABORATORY SERVICES Specimen Blood specimen (specimen) - Blood Performing Organization Address City/[facility]/ZIP Code Phon e Number [facility] LABORATORY [address] [place] [address] SERVICES HEMOGLOBIN A1C (06/15/2017 0:02 EST) Hemoglobin A1C 6.8 % [facility] Comment: LABORATORY SERVICES Reference Range: <5.7% Normal 5.7-6.4% Prediabetes =>6.5% Diagnostic for diabetes (if confirmed) Goals for glycemic control in diabetes ADA 2017 For non adults with diabetes: ?? Target <7.5% For children and adolescents with type 1 diabetes: ?? Target <7.0% More or less stringent targets may be appropriate for individual patients. Est Avg Glucose 148 mg/dl [facility] Comment: LABORATORY SERVICES eAG represents the A1c result expressed as average glucose in mg/dl. Specimen Blood specimen (specimen) - Blood Performing Organization Address City/[facility] e Number [facility] LABORATORY [address] [place] [address] SERVICES EKG 12-LEAD (06/14/2017 23:33 EST) Specimen Narrative [facility] EKG - 06/21/2017 12:5 1 EST ? [facility] ? Test Date: ?2017-06-14 Pat Name: ? CARLOS MERCER ? Department: ?? KAYLEE Norton ? Room: ? ME506 Gender: ? M ?Supervisor Blood Donor Recruiters: ?? [id number] : ?1950 ? Requested By: PARSONS SALOMÓNNASIM Order Number: [id number] ? Ashley BRANHAM: ?? GABRIELA SWEENEY MD ? Measurements Intervals ?Elbert ? Rate: ? 94 ? P: ?126 MT: ? 218 ?QRS: ?-57 QRSD: ? 124 ?T: ?124 QT: ? 387 ? QTc: ?486 ? Interpretive Statements SINUS RHYTHM WITH FIRST DEGREE AV BLOCK ANTEROLATERAL & INFERIOR MYOCARDIAL INFA RCTION, OF INDETERMINATE AGE INTRAVENTRICULAR CONDUCTION DELAY No previous ECG available for comparison Edited by Adi Torrez on 06-16-17 2 0:11:34 EST. I reviewed the tracing and have either a greed or edited the findings in this report. Electronically Signed On 12:51:14 EST by GABRIELA SWEENEY MD. 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 I reviewed the tracing and have either a greed or edited the findings in this report. Electronically Signed On 12:51:14 EST by GABRIELA SWEENEY MD. Performing Organization Address City/State/ZIP Code Phon e Number [facility] EKG documented in this encounter Visit Diagnoses Diagnosis NSTEMI (non-ST elevated myocardial infar ction) ([facility]) ([facility]) - Primary Acute myocardial infarction, subendocard ial infarction, episode of care unspecified Acute systolic heart failure ([facility]) ( [facility]) Acute systolic heart failure Type 2 diabetes mellitus with complicati on ([facility]) ([facility]) Hypertension Unspecified essential hypertension CAD (coronary artery disease) Coronary atherosclerosis of unspecified type of vessel, moapa or graft HLD (hyperlipidemia) Other and unspecified hyperlipidemia documented in this encounter Administered Medications Inactive Administered Medications - up to 3 most recent administrations Medication Order MAR Action Action Date Dose Rate Site aspirin EC tablet 81 mg Given 06/17/2017 8:10 EST 81 mg 81 mg, oral, DAILY, First dose on Tue06/15/17 at 0900, Until Discontinued, Routine Given 06/16/2017 8:00 EST 81 mg Given 06/15/2017 8:01 EST 81 mg atorvastatin (LIPITOR) tablet 80 mg Given 06/17/2017 8:13 EST 80 mg 80 mg, oral, DAILY, First dose on Tue06/14/17 at 2345, Until Discontinued, Routine Given 06/16/2017 8:00 EST 80 mg Given 06/15/2017 8:01 EST 80 mg ceFAZolin (ANCEF) 1 gram injection 1 dose, Starting on Tue06/15/17 at 0902, Until 05/24 at 1600 ceFAZolin (ANCEF) injection Given 06/15/2017 9:03 EST 1 g intravenous, PRN, Starting on Tue06/15/17 at 0903, Until Tue06/15/17 at 0903, Routine clopidogrel (PLAVIX) 300 mg tablet 1 dose, Starting on Tue06/15/17 at 0800, Until 03/24 at 0802 clopidogrel (PLAVIX) tablet 300 mg Given 06/15/2017 8:02 EST 300 mg 300 mg, oral, NOW X1, 1 dose, On Tue06/15/17 at 0815, Routine clopidogrel (PLAVIX) tablet 75 mg Given 06/17/2017 8:12 EST 75 mg 75 mg, oral, DAILY, First dose on Rosalia 06/16/17 at 1215, Until Discontinued, Routine Given 06/16/2017 14:08 EST 75 mg dextrose 50 % solution 12.5 g 12.5 g (25 mL), intravenous, PRN, Starting on 06/15 at 0037, Until Tue06/17/17 at 1600, Low Blood Sugar, Routine fentaNYL citrate (PF) 50 mcg/mL injectio n Given 06/15/2017 8:57 EST 25 mcg intravenous, PRN, Starting on Tue06/15/17 at 0855, Until Tue06/15/17 at 0857, Routine Given 06/15/2017 8:55 EST 25 mcg furosemide (LASIX) injection 20 mg Given 06/15/2017 14:14 EST 20 mg 20 mg, intravenous, NOW X1, 1 dose, On Tue06/15/17 at 1315, Routine furosemide (LASIX) injection 20 mg Given 06/16/2017 9:08 EST 20 mg 20 mg, intravenous, NOW X1, 1 dose, On Rosalia 06/16/17 at 0900, Routine furosemide (LASIX) injection 40 mg Given 06/17/2017 8:13 EST 40 mg 40 mg, intravenous, DAILY, First dose (after last modification) on Rosalia 06/16/17 at 1230, Until Discontinued, Routine Given 06/16/2017 14:08 EST 40 mg glucagon injection 1 mg 1 mg, intramuscular, PRN, Starting on 06/15/17 at 0037, Until Tue06/17/17 at 1600, Low blood sugar, Routine heparin 1,000 unit/mL injection 3,300 Given 06/15/2017 18:18 EST 3,300 Units Units 3,300 Units (rounded from 3,262 Units = 35 Units/kg ? 93.2 kg Adjusted weight), intravenous, PRN, Starting on Tue06/14/17 at 2326, Until Tue06/17/17 at 0714, Other, Per Heparin Protocol, Routine Given 06/15/2017 6:27 EST 3,300 Units heparin 1,000 unit/mL injection 6,500 Un its Given 06/15/2017 0:30 EST 6,500 Units 6,500 Units (rounded from 6,524 Units = 70 Units/kg ? 93.2 kg Adjusted weight), intravenous, NOW X1, 1 dose, On Tue06/14/17 at 2345, STAT heparin in 1/2 NS Rate Documented 06/17/2017 6:00 EST 19 Units/kg/hr 17.7 mL/hr 25,000 unit/250 mL infusion 19 Units/kg/hr ? 93.2 kg Adjusted weight (17.708 mL/hr, rounded to 17.7 mL/hr), intravenous, at 17.7 mL/hr, CONTINUOUS, Starting on Tue06/14/17 at 2345, Until Tue06/17/17 at 0714, Routine New Bag 06/16/2017 23:50 EST 19 Units/kg/hr 17.7 mL/hr Rate Documented 06/16/2017 20:38 EST 19 Units/kg/hr 17.7 mL/hr insulin aspart (NOVOLOG FLEXPEN) injection 7 Given 7 12:41 EST 7 Units Units 7 Units (rounded from 6.86 Units = 0.05 Units/kg ? 137.2 kg), subcutaneous, 3 TIMES DAILY WITH MEALS, First dose on Tue06/15/17 at 1200, Until Discontinued, Routine Given 06/16/2017 18:05 EST 7 Units Given 06/16/2017 7:50 EST 7 Units insulin aspart (NOVOLOG FLEXPEN) injecti on Given 06/17/2017 12:40 EST 5 Units subcutaneous, 3 TIMES DAILY WITH MEALS, First dose on Tue06/15/17 at 1200, Until Discontinued, Routine Given 06/16/2017 18:05 EST 4 Units Given 06/16/2017 11:53 EST 4 Units insulin glargine (LANTUS SOLOSTAR) injection Given 04/2017 20:36 EST 30 Units pen 30 Units 30 Units, subcutaneous, ONCE DAILY L.A. INSULIN, First dose on Tue06/15/17 at 0045, Until Discontinued, Routine Given 06/15/2017 21:01 EST 30 Units lisinopril (PRINIVIL, ZESTRIL) tablet 10 mg 10 mg, oral, DAILY, First dose (after la st modification) on 06/18/17 at 0900, Until Discontinued, Routine lisinopril (PRINIVIL, ZESTRIL) tablet 5 mg Given 06/17/2017 8:12 EST 5 mg 5 mg, oral, DAILY, First dose on Rosalia 06/16/17 at 1215, Until Discontinued, Routine Given 06/16/2017 14:08 EST 5 mg lisinopril (PRINIVIL, ZESTRIL) tablet 5 mg Given 06/17/2017 9:58 EST 5 mg 5 mg, oral, NOW X1, 1 dose, On Tue06/17/17 at 0930, STAT magnesium sulfate 2g in D5W 50 ml Given 06/15/2017 3:49 EST 2 g 2 g, intravenous, Administer over 30 Minutes, NOW X1, 1 dose, On Tue06/15/17 at 0345, Routine magnesium sulfate 2g in D5W 50 ml Given 06/16/2017 11:09 EST 2 g 2 g, intravenous, Administer over 30 Minutes, NOW X1, 1 dose, On Rosalia 06/16/17 at 0800, Routine magnesium sulfate 2g in D5W 50 ml Given 06/17/2017 8:07 EST 2 g 2 g, intravenous, Administer over 30 Minutes, NOW X1, 1 dose, On Tue06/17/17 at 0745, Routine melatonin tablet 3 mg Given 06/16/2017 20:36 EST 3 mg 3 mg, oral, AT BEDTIME PRN, Starting on Tue06/15/17 at 0408, Until Tue06/17/17 at 1600, Other, Insomnia, Routine Given 06/15/2017 21:00 EST 3 mg Given 06/15/2017 4:40 EST 3 mg metoprolol (LOPRESSOR) tablet 25 mg Given 06/16/2017 8:00 EST 25 mg 25 mg, oral, 2 TIMES DAILY, First dose on Tu06/14/17 at 2345, Until Discontinued, Routine Given 06/15/2017 21:00 EST 25 mg Given 06/15/2017 8:01 EST 25 mg metoprolol XL (TOPROL-XL) tablet 50 mg Given 06/17/2017 8:11 EST 50 mg 50 mg, oral, DAILY, First dose on Rosalia 06/16/17 at 1215, Until Discontinued, Routine Given 06/16/2017 14:08 EST 50 mg midazolam (PF) (VERSED) 1 mg/mL injectio n Given 06/15/2017 8:55 EST 1 mg intravenous, PRN, Starting on Tue06/15/17 at 0855, Until Tue06/15/17 at 0855, Routine Given 06/15/2017 8:55 EST 1 mg sodium chloride 0.9 % (NS) infusion New Bag 06/15/2017 8:21 EST 25 mL/hr 25 mL/hr intravenous, FA IP EQF CONTINUOUS PRN FOR ONE STEP MEDS, Starting on Tue06/15/17 at 0821, Until Tue06/15/17 at 0821, Routine sodium chloride 0.9 % flush 3 mL Given 06/17/2017 8:09 EST 3 mL 3 mL, intravenous, EVERY 8 HOURS, First dose on Tue06/15/17 at 0000, Until Discontinued, Routine Given 06/16/2017 23:52 EST 3 mL Given 06/16/2017 16:00 EST 3 mL spironolactone (ALDACTONE) tablet 50 mg Given 06/17/2017 9:58 EST 50 mg 50 mg, oral, DAILY, First dose on Tue06/17/17 at 0930, Until Discontinued, Routine torsemide (DEMADEX) tablet 20 mg 20 mg, oral, DAILY, First dose on Tue at 0900, Until Discontinued, Routine documented in this encounter Discontinued Medications Medication Sig Discontinue Reason Start Date End Date atorvastatin (LIPITOR) Take 80 mg by Dose adjustment 1 08/16/2016 40 mg tablet mouth daily. insulin glargine (LANTUS Inject 65 Units Wrong Product Selected 06/16/2017 SOLOSTAR) 100 unit/mL (3 into the skin at mL) injection pen bedtime. lisinopril (PRINIVIL, Take 10 mg by Wrong Product Selected 06/16/2017 ZESTRIL) 10 mg tablet mouth daily. insulin detemir Inject 65 Units 7 (LEVEMIR) 100 unit/mL into the skin at injection bedtime. atorvastatin (LIPITOR) Take 80 mg by 06/08 80 mg tablet mouth daily. documented as of this encounter Historical Medications This list may reflect changes made after this encounter. Medication Sig Dispensed Refills Start Date End Date insulin detemir (LEVEMIR) Inject 60 Units into 0 06/17/2017 100 unit/mL injection the skin at bedtime. DOCOSAHEXANOIC ACID/EPA Take 1,000 mg by 0 (FISH OIL ORAL) mouth daily. traZODone (DESYREL) 50 mg Take 50 mg by mouth 0 tablet at bedtime. magnesium oxide (MAG-OX) Take 400mg in the 0 400 mg tablet morning and 800mg at night gabapentin (NEURONTIN) Take 300 mg by mouth 0 300 mg capsule 3 times daily. metoprolol XL (TOPROL-XL) Take 25 mg by mouth 0 25 mg tablet daily. metFORMIN (GLUCOPHAGE) Take 1,000 mg by 0 1,000 mg tablet mouth 2 times daily with breakfast and dinner. lisinopril (PRINIVIL, Take 10 mg by mouth 0 ZESTRIL) 20 mg tablet daily. liraglutide (VICTOZA) 0.6 Inject 0.6 units 0 mg/0.1 mL (18 mg/3 mL) into the skin daily injectable pen for 1 week then 1.2mg daily for 1 week then 1.8mg daily. insulin aspart (NOVOLOG Inject 30 units into 0 FLEXPEN) 100 unit/mL the skin 3 times injectable pen daily pre-meals. Give an additional 1 unit for every 20mg/dL of glucose above 140 mg/dL. adalimumab (HUMIRA PEN) Inject 40 mg into 0 40 mg/0.8 mL pen kit the skin every 14 days. MV-MN/FOLIC AC/ALIP Take 1 Tab by mouth 0 06/22/2017 ACID/COQ10 (DIABETIC daily. VITAMIN ORAL) aspirin chewable 81 mg Take 81 mg by mouth 0 06/22/2017 tablet daily. insulin detemir (LEVEMIR) Inject 65 Units into 0 06/17/2017 100 unit/mL injection the skin at bedtime. atorvastatin (LIPITOR) 80 Take 80 mg by mouth 0 06/17/2017 mg tablet daily. traMADol (ULTRAM) 50 mg Take 50 mg by mouth 0 06/22/2017 tablet every 6 hours as needed for Pain. lisinopril (PRINIVIL, Take 10 mg by mouth 0 06/16/2017 ZESTRIL) 10 mg tablet daily. insulin glargine (LANTUS Inject 65 Units into 0 06/16/2017 SOLOSTAR) 100 unit/mL (3 the skin at bedtime. mL) injection pen atorvastatin (LIPITOR) 40 Take 80 mg by mouth 0 06/16/2017 mg tablet daily. added in this encounter Active and Recently Administered Medications Times are shown in EST. Scheduled Medication Order 06/15/2017 06/16/2017 06/17/2017 aspirin EC tablet 81 mg 0801 (Given - Provider: Marsha metcalf) 0800 (Given - Provider: Raj Escalera RN) 0810 (Given - Provider: Janae love, JACEY) 81 mg, oral, DAILY, First dose on Tue at 0900, Until Discontinued, Routine atorvastatin (LIPITOR) tablet 80 mg 0801 (Given - Provider: Marsha Johnson) 0800 (Given - Provider: Raj Escalera RN) 0813 (Given - Provider: Janae Becerra RN) 80 mg, oral, DAILY, First dose on Tue at 2345, Until Discontinued, Routine clopidogrel (PLAVIX) tablet 300 mg (COMPLETED) 0802 (G iven - Provider: Marsha Johnson) 300 mg, oral, NOW X1, 1 dose, Tue06/15/17 at 0815, Routine clopidogrel (PLAVIX) tablet 75 mg (CANCELED) 1408 (Given - Provider: Raj Escalera RN) 0812 (Given - Provider: Janae love RN) 75 mg, oral, DAILY, First dose on Tue at 1215, Until Discontinued, Routine furosemide (LASIX) injection 20 mg (COMPLETED) 1414 (G iven - Provider: Marsha Johnson) 20 mg, intravenous, NOW X1, 1 dose, Tue06/15/17 at 1315, Routine furosemide (LASIX) injection 20 mg (COMPLETED) 0908 (Given - Provider: Raj Escalera, JACEY) 20 mg, intravenous, NOW X1, 1 dose, Tue06/16/17 at 0900, Routine furosemide (LASIX) injection 40 mg (CANCELED) 1408 (Given - Provider: Raj Escalera RN) 0813 (Given - Provider: Janae love, JACEY) 40 mg, intravenous, DAILY, First dose on Tue06/16/17 at 1230, Until Discontinued, Routine heparin 1,000 unit/mL injection 6,500 Units (COMPLETED ) 0030 (Given - Provider: Shima Hernandez, JACEY) 6,500 Units (rounded from 6,524 Units = 70 Units/kg ? 93.2 kg Adjusted weight), intravenous, NOW X1, 1 dose, Tue06/14/17 at 2345, STAT insulin aspart (NOVOLOG FLEXPEN) injection 7 Units 141 4 (Given - Provider: Marsah Johnson)1717 (Given - Provider: Laci Victoria RN) 0750 (Given - Provider: Raj Escalera RN)1147 (Not Given - Provider: Raj Escalera RN - Reason: NPO)1805 (Given - Provider: Jessica Herbert, JACEY) 0814 (Not Given - Provider: Janae Becerra, JACEY - Reason: NPO)1241 (Given - Provider: Janae Becerra, JACEY) 7 Units (rounded from 6.86 Units = 0.05 Units/kg ? 137.2 kg), subcutaneous, 3 TIMES DAILY WITH MEALS, First dose on Tue06/15/17 at 1200, Until Discontinued insulin aspart (NOVOLOG FLEXPEN) injection 1414 (Given - Provider: Marsha Johnson)1717 (Given - Provider: Laci Victoria RN) 0750 (Given - Provider: Raj Escalera RN)1153 (Given - Provider: Raj Escalera RN)1805 (Given - Provider: Jessica Herbert RN) 0808 (Not Given - Provider: Janae jewell, JACEY - Reason: Order parameters not met)1240 (Given - Provider: Janae Becerra RN) subcutaneous, 3 TIMES DAILY WITH MEALS, First dose on Tue06/15/17 at 1200, Until Discontinued insulin glargine (LANTUS SOLOSTAR) injection pen 30 Un its 0117 (Not Given - Provider: Shima Hernandez RN - Reason: NPO)2100 (Given - Provider: Caty Bone, JACEY - Comment: FS 160) 2035 (Given - Provider: Paradise Dockery, JACEY) 30 Units, subcutaneous, ONCE DAILY L.A. INSULIN, First dose on Tue06/15/17 at 0045, Until Discontinued, Routine lisinopril (PRINIVIL, ZESTRIL) tablet 10 mg 10 mg, oral, DAILY, First dose on Tue at 0900, Until Discontinued, Routine lisinopril (PRINIVIL, ZESTRIL) tablet 5 mg (CANCELED) 1408 (Given - Provider: Raj Escalera RN) 0812 (Given - Provider: Janae love RN) 5 mg, oral, DAILY, First dose on 04/24 at 1215, Until Discontinued, Routine lisinopril (PRINIVIL, ZESTRIL) tablet 5 mg (COMPLETED) 0958 (Given - Provider: Janae Becerra RN) 5 mg, oral, NOW X1, 1 dose, Tue06/17/17 at 0930, STAT magnesium sulfate 2g in D5W 50 ml (COMPLETED) 0349 (Gi eliseo - Provider: Shima Hernandez, JACEY) 2 g, intravenous, Administer over 30 Min utes, NOW X1, 1 dose, Tue06/15/17 at 0345, Routine magnesium sulfate 2g in D5W 50 ml (COMPLETED) 1109 (Given - Provider: Raj Escalera RN - Comment: needed secondary line-difficult stick) 2 g, intravenous, Administer over 30 Min utes, NOW X1, 1 dose, Rosalia 06/16/17 at 0800, Routine magnesium sulfate 2g in D5W 50 ml (COMPLETED) 0807 (Given - Provider: Janae Becerra, JACEY) 2 g, intravenous, Administer over 30 Min utes, NOW X1, 1 dose, Tue06/17/17 at 0745, Routine metoprolol (LOPRESSOR) tablet 25 mg (CANCELED) 0039 (G iven - Provider: Shima Hernandez, RN)0801 (Given - Provider: Marsha Johnson)2100 (Given - Provider: Caty Bone, JACEY) 0800 (Given - Provider: Raj Escalera, JACEY) 25 mg, oral, 2 TIMES DAILY, First dose o n e 06/14/17 at 2345, Until Discontinued, Routine metoprolol XL (TOPROL-XL) tablet 50 mg 1 408 (Given - Provider: Raj Escalera RN) 0811 (Given - Provider: Janae love RN) 50 mg, oral, DAILY, First dose on Rosalia at 1215, Until Discontinued, Routine sodium chloride 0.9 % flush 3 mL 0711 (Not Given - Pro vider: Marsha Johnson - Reason: Other)1647 (Not Given - Provider: Laci Victoria RN - Reason: Other - Comment: IVF)2304 (Given - Provider: Caty Bone, JACEY) 0802 (Not Given - Provider: Raj Escalera RN - Reason: Other)1600 (Given - Provider: Jessica Herbert, JACEY)2352 (Given - Provider: Paradise Dockery, JACEY) 0809 (Given - Provider: Janae Becerra, JACEY) 3 mL, intravenous, EVERY 8 HOURS, First dose on Tue06/15/17 at 0000, Until Discontinued, Routine spironolactone (ALDACTONE) tablet 50 mg 0958 (Given - Provider: Janae Becerra, JACEY) 50 mg, oral, DAILY, First dose on Tue at 0930, Until Discontinued, Routine torsemide (DEMADEX) tablet 20 mg 20 mg, oral, DAILY, First dose on Tue at 0900, Until Discontinued, Routine Continuous Medication Order 06/15/2017 06/16/2017 06/17/2017 heparin in 1/2 NS 25,000 unit/250 mL infusion (CANCELE D) 0030 (New Bag - Provider: Shima Hernandez, JACEY)0608 (Rate Documented - Provider: Shima Hernandez, JACEY)0627 (Rate Change - Provider: Shima Hernandez RN)0821 (Completed - Provider: Jessica Villanueva) 0734 (Rate Documented - Provider: Raj Escalera, RN)0904 (New Bag - Provider: Raj Escalera, RN)1700 (Rate Documented - Provider: Jessica Herbert RN)2025 (Rate Documented - Provider: Paradise Dockery RN) 0600 (Rate Documented - Provider: Paradise Dockery, JACEY)0720 (Completed - Provider: Janae Becerra, JACEY) 19 Units/kg/hr ? 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)1530 (Rate Documented - Provider: Laci Victoria, JACEY)1715 (New Bag - Provider: Laci Victoria, JACEY)1820 (Rate Change - Provider: Laci Victoria, JACEY) 2038 (Rate Documented - Provider: Flynn Dockery, JACEY)2350 (New Bag - Provider: Paradise Dockery, JACEY) 1928 (Rate Documented - Provider: Caty Bone, JACEY) PRN Medication Order 06/15/2017 06/16/2017 06/17/2017 acetaminophen (TYLENOL) tablet 650 mg 650 mg, oral, EVERY 4 HOURS PRN, Startin g Tue06/14/17 at 2320, Until Tue06/17/17 at 1600, Pain, Routine ceFAZolin (ANCEF) injection (COMPLETED) 09 (Given - Provider: Kevin Enamorado RN) intravenous, PRN, Starting on Tue 7 at 0903, Until Tue06/15/17 at 0903, Routine dextrose 50 % solution 12.5 g 12.5 g (25 mL), intravenous, PRN, Starti ng Tue06/15/17 at 0037, Until Tue06/17/17 at 1600, Low Blood Sugar, Routine fentaNYL citrate (PF) 50 mcg/mL injection (COMPLETED) 0855 (Given - Provider: Giles Navarrete MD)0857 (Given - Provider: Giles Navarrete MD) intravenous, PRN, Starting on Tue 7 at 0855, Until Tue06/15/17 at 0857, Routine glucagon injection 1 mg 1 mg, intramuscular, PRN, Starting Tue08/15/16 at 0037, Until Tue06/17/17 at 1600, Low blood sugar, Routine heparin 1,000 unit/mL injection 3,300 Units (CANCELED) 0627 (Given - Provider: Shima Hernandez, JACEY)1818 (Given - Provider: Laci Victoria, JACEY) 3,300 Units (rounded from 3,262 Units = 35 Units/kg ? 93.2 kg Adjusted weight), intravenous, PRN, Starting Tue06/14/17 at 2326, Until Tue06/17/17 at 0714, Other, Per Heparin Protocol, Routine melatonin tablet 3 mg 0440 (Given - Provider: Staci Hernandez, JACEY)2100 (Given - Provider: Caty Bone, JACEY) 2036 (Given - Provider: Paradise Dockery, JACEY) 3 mg, oral, AT BEDTIME PRN, Starting Tue06/15/17 at 0408, Until Tue06/17/17 at 1600, Other, Insomnia, Routine midazolam (PF) (VERSED) 1 mg/mL injection (COMPLETED) 0855 (Given - Provider: Kevin Enamorado RN)0855 (Given - Provider: Kevin Enamorado RN) intravenous, PRN, Starting on Tue 7 at 0855, Until Tue06/15/17 at 0855, Routine sodium chloride 0.9 % (NS) infusion (COMPLETED) 0821 ( New Bag - Provider: Taye Duval, JACEY) intravenous, FA IP EQF CONTINUOUS PRN FO R ONE STEP MEDS, Starting Tue06/15/17 at 0821, Until Tue06/15/17 at 0821, Routine No Frequency Medication Order 06/15/2017 06/16/2017 06/17/2017 ceFAZolin (ANCEF) 1 gram injection 1 dose, Starting Tue06/15/17 at 0902, Until Discontinued documented in this encounter Orders Medications Ordered That Might Not Have Count Last Ord ered Date First Ordered Date Been Administered lisinopril (PRINIVIL, ZESTRIL) tablet 10 1 017 mg torsemide (DEMADEX) tablet 20 mg 1 06/17/2017 furosemide (LASIX) injection 40 mg 1 06/16/2017 NONFORMULARY MEDICATION 40 mg 1 06/16/2017 ceFAZolin (ANCEF) 1 gram injection 1 06/15/2017 clopidogrel (PLAVIX) tablet 75 mg 2 06/15/2017 06/14/2017 dextrose 50 % solution 12.5 g 1 06/15/2017 fentaNYL citrate (PF) 50 mcg/mL injection 1 2016 glucagon injection 1 mg 1 06/15/2017 heparin 1,000 unit/mL injection 1 06/15/2017 insulin aspart (NOVOLOG FLEXPEN) injection 1 06/15 lidocaine 20 mg/mL (2 %) injection 1 06/15/2017 midazolam (PF) (VERSED) 1 mg/mL injection 1 2016 nitroglycerin 100 mcg/mL syringe 1 06/15/2017 nitroglycerin 400 mcg/ml in D5W 250 ml 2 7 06/14/2017 infusion verapamil (ISOPTIN) 2.5 mg/mL injection 1 06/15/20 acetaminophen (TYLENOL) tablet 650 mg 1 06/14/2017 heparin 1,000 unit/mL injection 6,500 1 06/14/2017 Units Procedures Count Last Ordered Date First Ordered Date ECG REPORT - SCANNED 3 06/22/2017 06/21/2017 Diet Count Last Ordered Date First Ordered Date DISCHARGE DIET 4 06/17/2017 Nursing Count Last Ordered Date First Ordered Date ACTIVITY INSTRUCTIONS 2 06/17/2017 BATHING INSTRUCTIONS 3 06/17/2017 WOUND CARE INSTRUCTIONS 2 06/17/2017 CARDIAC PROCEDURE ACCESS SITE 1 06/15/2017 CARDIAC PROCEDURE CLOSURE DEVICE 1 06/15/2017 NOTIFY PHYSICIAN (SPECIFY) 3 06/15/201706/14 PATIENT AT LOW RISK FOR VTE: RISK OF 1 06/15/2017 MECHANICAL PROPHYLAXIS OUTWEIGHS VTE PHARMACOLOGIC PROPHYLAXIS CURRENTLY 2 06/15/20 17 06/14/2017 ORDERED OR ON ALTERNATIVE THER HEIGHT AND WEIGHT 1 06/14/2017 MEASURE WEIGHT 1 06/14/2017 Consult Count Last Ordered Date First Ordered Date CONSULT NUTRITION 1 06/15/2017 IV Count Last Ordered Date First Ordered Date IV REQUEST 2 06/16/2017 06/15/2017 Admission Count Last Ordered Date First Ordered Date STATUS: INPATIENT ACUTE ADMISSION 1 06/14/2017 Transfer Count Last Ordered Date First Ordered Date NOTIFY PPS OF DISCHARGE COMPLETE 1 06/17/2017 CHANGE PCP 1 06/15/2017 UR PATIENT STATUS CHANGE 1 06/15/2017 Discharge Count Last Ordered Date First Ordered Date DISCHARGE PATIENT 1 06/17/2017 Legal Count Last Ordered Date First Ordered Date MISCELLANEOUS DISCHARGE INSTRUCTIONS 2 06/17/2017 documented in this encounter Care Teams Tester Waste Disposal Leakage Relationship Specialty Start Date End Date Unknown, MD Yessica PCP - General 05/12/15 06/14/17 Taye Ron MD PCP - General 06/15/17 documented as of this encounter
--- OUTSIDE RECORDS SUMMARY | 2022-04-26 10:04 | XMS_ITS | Encounter Summary ---
:[address] [facility] Address [address] [place] [address] Care Team Providers Name Role Phone Unknown, Provider Primary Care Provider Encounter Details Date Type Department Care Team Description 05/12/2015 Hospital Encounter [facility] - S Unknown, Pro Andree jaramillo MD [address] [facility] [phone] [place] [address] (Work) [phone] Social History Tobacco Use Types Packs/Day Years Used Date Never Assessed Sex Assigned at Date Recorded Not on file documented as of this encounter Discharge Disposition Disposition Code Departure Means Destination Home or Self [facility] documented in this encounter Plan of Treatment Not on filedocumented as of this encounter Visit Diagnoses Not on filedocumented in this encounter Care Teams Byproducts Maker Relationship Specialty Start Date End Date Unknown, Provider, PCP - General 05/12/15 06/14/17 documented as of this encounter
--- OUTSIDE RECORDS SUMMARY | 2022-04-26 10:04 | XMS_ITS | Encounter Summary ---
:1950 Author Organization [facility] Address [address] [place] [address] Care Team Providers Name Role Phone Taye Ron MD Primary Care Provider Reason for Visit Reason Onset Date Comments Referral Request 06/15/2017 referral Encounter Details Date Type Department Care Team Description 06/15/2017 Telephone [place] Vignesh Galvan Request Cardiothoracic Surgery - MD Durga (referral) [address] [phone] [facility] [address] [place] [address] (Wo rk) Social History Tobacco Use Types Packs/Day Years Used Date Former Smoker Cigarettes 2 37 Quit: 06/14/19 99 Smokeless Tobacco: Never Used Alcohol Use Standard Drinks/Week Comments No 0 (1 standard drink = 0.6 oz pure alcoho l) Sex Assigned at Date Recorded Not on file documented as of this encounter Functional Status Functional Status Response [...] or older) documented as of this encounter Miscellaneous Notes Telephone Encounter - Love Waldrop - 06/15/[address] Galvan patient is not a surgical candidate. elephone Encounter - Love Waldrop - 06/15/2017 1231 EST I have routed to Dr. Galvan as he is administration intern provider today. elephone Encounter - Love Waldrop - 06/15/2017 1201 EST INPT consult called in by Dr. Thomas---Patient currently on Cardiothoracic Surgery Department Referral Form Diagnosis & surgery recommended: CABG Type of referral: Elective, Consult (Inpatient or Elective), Inpatient or Transfer? INPT Requested surgeon or first available? poultry vaccinator provider (Dr. Galvan) Status: Stable or Unstable? Stable Referring Information Provider Requesting Referral: Dr. Thomas PCP: Dr. Ron If cardiac cath completed, date and dial refinisher? 06/15/17 Dr. Bentley LV function or EF %? Face Hardener following patient? unknown _ Medication Information Anticoagulants given (Plavix, Ticagrelor, other)? Plavix today If inpatient transfer, any IV medication (drips)? unknown Medical History Has patient had previous cardiac surgery? If so, name of surgeon and date? no COPD, yes or no? no Diabetes, yes or no? yes Renal disease, yes or no? no History of vein stripping, yes or no? no Peripheral vascular disease, yes or no? no Carotid disease or previous CVA (stroke), yes or no? no Additional co-morbidities? If yes, please list: HTN, HLD, DM, SLEEP APNEA, OBESITY, DEPRESSION, FORMER SMOKER Diagnostic Testing Echo - date completed: 06/15/17 EKG - date completed: 06/14/17 CT scan (aneurysm or mass) - date completed: no Recent labs - date completed: 06/15/17 Additional testing? If yes, please list: CXR 06/14/17 & NM Stress 06/13/17 THIS REFERRAL HAS BEEN ROUTED TO: Dr. Galvan, [facility], Nurse. documented in this encounter Plan of Treatment Not on filedocumented as of this encounter Visit Diagnoses Not on filedocumented in this encounter Care Teams Core Drier Relationship Specialty Start Date End Date Taye Ron MD PCP - General 06/15/17 documented as of this encounter
--- OUTSIDE RECORDS SUMMARY | 2022-04-26 10:04 | XMS_ITS | Clinical Summary ---
:1950 Author Organization [facility] Address [address] [place] [address] Care Team Providers Name Role Phone Taye Ron MD Primary Care Provider Allergies Active Allergy Reactions Severity Noted Date Comments Methotrexate Other (See Comments) High 06/14/2017 Increas ed bleeding, lethargic Shellfish Containing Other (See Comments), High 06/14/2017 Numbness, tingling Products Swelling of tongue Medications Medication Sig Dispensed Refills Start Date End Date Status adalimumab (HUMIRA Inject 40 mg into 0 Active PEN) 40 mg/0.8 mL pen the skin every 14 kit days. insulin aspart Inject 30 units 0 Active (NOVOLOG FLEXPEN) 100 into the skin 3 unit/mL injectable pen times daily pre-meals. Give an additional 1 unit for every 20mg/dL of glucose above 140 mg/dL. liraglutide (VICTOZA) Inject 0.6 units 0 Active 0.6 mg/0.1 mL (18 mg/3 into the skin mL) injectable pen daily for 1 week then 1.2mg daily for 1 week then 1.8mg daily. lisinopril (PRINIVIL, Take 10 mg by 0 Active ZESTRIL) 20 mg tablet mouth daily. metFORMIN (GLUCOPHAGE) Take 1,000 mg by 0 Active 1,000 mg tablet mouth 2 times daily with breakfast and dinner. metoprolol XL Take 25 mg by 0 Ac tive (TOPROL-XL) 25 mg mouth daily. tablet gabapentin (NEURONTIN) Take 300 mg by 0 Active 300 mg capsule mouth 3 times daily. magnesium oxide Take 400mg in the 0 Active (MAG-OX) 400 mg tablet morning and 800mg at night traZODone (DESYREL) 50 Take 50 mg by 0 Active mg tablet mouth at bedtime. DOCOSAHEXANOIC Take 1,000 mg by 0 Active ACID/EPA (FISH OIL mouth daily. ORAL) atorvastatin (LIPITOR) Take 1 Tab by 30 Tab 11 06/17/2017 Active 80 mg tablet mouth daily. insulin detemir Inject 60 Units 0 06/17/2017 Active (LEVEMIR) 100 unit/mL into the skin at injection bedtime. spironolactone Take 1 Tab by 30 Tab 11 06/17/2017 Active (ALDACTONE) 50 mg mouth daily. tablet aspirin (ASPIRIN EC) Take 81 mg by 0 Active 81 mg EC tablet mouth daily. Cholecalciferol, Take 1 Cap by 0 Active Vitamin D3, 2,000 unit mouth daily. capsule acetaminophen Take 500 mg by 0 A ctive (TYLENOL) 500 mg mouth every 6 tablet hours as needed for Pain. Active Problems Problem Noted Date Acute systolic heart failure ([facility]) 06/16/2017 HLD (hyperlipidemia) 06/16/2017 Type 2 diabetes mellitus with complication ([facility]) 1 08/15/2016 Hypertension 06/15/2017 CAD (coronary artery disease) 06/15/2017 Overview: [place] [facility] [place] howed two vessel disease that was not intervened upon (LAD and Circ). [facility] 06/15 showed MVD, not candidate for C ABG NSTEMI (non-ST elevated myocardial infarction) ([facility]) 06/14/2017 Social History Tobacco Use Types Packs/Day Years [...] Body Mass Index 47.18 06/14/2017 2257 EST Plan of Treatment Health Maintenance Due Date Last Done Comments Hepatitis C Screen 1950 COVID-19 Vaccine (1) 1957 Fall Risk Screening 2017 Advance Directives For more information, please contact: [phone] Latest Code Status on File Code Status Date Activated Date Inactivated Comments Full Code 06/14/2017 23:24 06/17/2017 16:05 Reason for decision includes: Full code requested by fully i nformed patient Who participated in the discussion? Patient Care Teams Cast Shell Grinder Relationship Specialty Start Date End Date Taye Ron MD PCP - General 06/15/17
--- OUTSIDE RECORDS SUMMARY | 2022-04-26 10:04 | XMS_ITS | Encounter Summary ---
:1950 Author Organization [facility] Address [address] [place] [address] Care Team Providers Name Role Phone Unknown, Provider Primary Care Provider Encounter Details Date Type Department Care Team Description 05/12/2015 Results Only [facility] Albin Castillo, DO [address] [facility] [address] [place] [address] (Wo rk) Social History Tobacco Use Types Packs/Day Years Used Date Never Assessed Sex Assigned at Date Recorded Not on file documented as of this encounter Plan of Treatment Not on filedocumented as of this encounter Procedures Procedure Name Priority Date/Time Associated Diagnosis Comme [facility] SURGICAL PATHOLOGY Routine 05/12/2015 18:56 Resul ts for this EDT procedure are i n the results section. documented in this encounter Results SURGICAL PATHOLOGY (05/12/2015 18:56 EDT) Pathology Report: SURGICAL PATHOLOGY REPORT [facility] Reports generated via electronic interface contain dar ginal data; LABORATORY however they are lacking the format of the original re port. SERVICES Caution should be taken when reading/interpreting unfo rmatted reports. Name: ? CARLOS GAN ? Accession #: ? [id number] ? : ? 1950 (Age: [age]) ??M ? Collect Date: ? 05/12/2015 ? Location: ? [facility] ? Receive Date: ? 05/12/20 15 ? Provider: ALBIN CASTILLO DO Copy to: CHERY LAUREN MD ? Final Pathologic Diagnosis: A. COLON, ASCENDING POLYP, POLYPECTOMY: - Tubular adenoma. B. COLON, ASCENDING LARGE POLYP, POLYPECTOMY: - Fragments of tubular adenoma. C. COLON, PROXIMAL TRANSVERSE, BIOPSY: - Tubular adenoma with marked cautery effect. - Deeper levels examined. D. COLON, DISTAL TRANSVERSE, BIOPSY: - Colonic mucosa with hyperplastic changes. - Deeper levels examined. E. COLON, DESCENDING, BIOPSY: - Colonic mucosa with no specific pathological feature s. - Deeper levels examined. Document reviewed and electronically signed by: SERJIO JOHNSON MD Report ??Date: 05/16/2015 16:20 By the signature above, the attending physician certif ies that he/she has personally conducted a gross and/or microscopic examin ation of the described specimens and rendered or confirmed the above diagnosi s. Specimen(s) Received: A. ??Polyp ascending colon B. ??Lg polyp ascending C. ??Transverse colon proximal D. ??Distal transverse E. ??Descending colon Clinical History: Screening Gross Description: A. ? Received in formalin labelled with proper pat ient identification (initials M, P) and polyp a scending colon is a single pink-asher tissue fragment (0.4 x 0.3 x 0.2 cm). Submitted intact in block A1. ? B. ?Received in formalin labelled with proper p atient identification (initials M, P) and large p olyp ascending is a single pink-asher polypoid tissue (1.0 x 0.8 x 0.4 cm) and two smaller biopsies (0.2 x 0.1 x 0.1 cm and 0.4 x 0.3 x 0.3 cm). The margin of the polyp is inked black and is trisected. The specimen is entirely submitted in blocks B1 (smaller tissues) a nd B2 (polyp). C. ?Received in formalin labelled with proper p atient identification (initials M, P) and transve rse colon proximal are two pink-asher tissues (0.3 x 0.2 x 0.1 cm and 0.4 x 0.2 x 0.2 cm). Entirely submitt ed in block C1. D. ?Received in formalin labelled with proper p atient identification (initials M, P) and distal transverse is a single pi nk-asher tissue fragment (0.9 x 0.3 x 0.1 cm). Submitted intact in block D1. E. ?Received in formalin labelled with proper p atient identification (initials M, P) and descend ing colon are two pink-asher tissues (0.3 x 0.2 x 0.1 cm and 0.2 x 0.2 x 0.2 cm). Entirely submitted in bloc k E1. Teresita Rooney 05/13/2015 10:20 AM End of Report Specimen Performing Organization Address City/State/ZIP Code Phon e Number [facility] [address] [place] [address] SERVICES documented in this encounter Visit Diagnoses Not on filedocumented in this encounter Care Teams Outfitter Cabin Relationship Specialty Start Date End Date Unknown, Provider, PCP - General 05/12/15 06/14/17 documented as of this encounter
--- OUTSIDE RECORDS SUMMARY | 2022-04-26 10:04 | XMS_ITS | Encounter Summary ---
:1950 Author Organization [facility] Address [address] [place] [address] Care Team Providers Name Role Phone Taye Ron MD Primary Care Provider Reason for Visit Reason Onset Date Comments Patient Outreach 07/19/2017 Encounter Details Date Type Department Care Team Description 07/19/2017 Telephone [facility] Hernandez Pepper, RN Patient Outreach Cardiac/Telemetry Un it [address] [place] [address] Social History Tobacco Use Types Packs/Day Years [...] this encounter Miscellaneous Notes Telephone Encounter - Chriss Pepper RN - 07/19/2017 1145 EST 1) How have you been feeling since you've been discharged? No symptoms of Concern - Patient is feeling well ------- Review Typical HF symptoms with patient -------- 2) When you were discharged, did you understand the medications prescribed for you? yes 3) Were you able to obtain all of your medications from your pharmacy? Yes 4) Let's review the medications you are taking at home. (Compare the patient's reported meds (pill bottles) against the AVS in chart review Focus review on new meds and cardiac medications.) Discharge Medications: These changes are accurate as of: 07/19/17 11:49. If you have any questions, ask your nurse or doctor. CONTINUE taking these medications Sig acetaminophen 500 mg tablet Commonly known as: TYLENOL Take 500 mg by mouth every 6 hours as needed for Pain. adalimumab 40 mg/0.8 mL pen kit Commonly known as: HUMIRA PEN Inject 40 mg into the skin every 14 days. Aspirin EC 81 mg EC tablet Generic drug: aspirin Take 81 mg by mouth daily. atorvastatin 80 mg tablet Commonly known as: LIPITOR Take 1 Tab by mouth daily. Quantity: 30 Tab Cholecalciferol (Vitamin D3) 2,000 unit capsule Take 1 Cap by mouth daily. FISH OIL ORAL Take 1,000 mg by mouth daily. gabapentin 300 mg capsule Commonly known as: NEURONTIN Take 300 mg by mouth 3 times daily. insulin aspart 100 unit/mL injectable pen Commonly known as: NOVOLOG FLEXPEN Inject 30 units into the skin 3 times daily pre-meals. Give an additional 1 unit for every 20mg/dL of glucose above 140 mg/dL. insulin detemir 100 unit/mL injection Commonly known as: LEVEMIR Inject 60 Units into the skin at bedtime. liraglutide 0.6 mg/0.1 mL (18 mg/3 mL) injectable pen Commonly known as: VICTOZA Inject 0.6 units into the skin daily for 1 week then 1.2mg daily for 1 week then 1.8mg daily. lisinopril 20 mg tablet Commonly known as: PRINIVIL, ZESTRIL Take 10 mg by mouth daily. magnesium oxide 400 mg tablet Commonly known as: MAG-OX Take 400mg in the morning and 800mg at night metFORMIN 1,000 mg tablet Commonly known as: GLUCOPHAGE Take 1,000 mg by mouth 2 times daily with breakfast and dinner. metoprolol XL 25 mg tablet Commonly known as: TOPROL-XL Take 25 mg by mouth daily. spironolactone 50 mg tablet Commonly known as: ALDACTONE Take 1 Tab by mouth daily. Quantity: 30 Tab traZODone 50 mg tablet Commonly known as: DESYREL Take 50 mg by mouth at bedtime. Medication Review Findings: Medications correctly match current list and patient is following medication list 5) Can you tell me which of your medications are for heart failure? Yes - Patient is knowledgable about their medications 6) Are you following a low sodium diet? Can you describe your diet plan to me? Yes - Patient able to articulate plan. 7) Did you get dressed this morning and was it easier for you than before your last hospital admission? Yes 8) Please describe your level of activity over the past few days when you've been home. Activity level acceptable (unchanged or improving from time of discharge) 9) Let's review your doctor's name, number, and your return appointment information. Patient has understanding of their appointments. 10) Do you have a scale at home to weight yourself? yes 11) Did you weigh yourself this morning? Yes, weight was 279 lbs. Date taken: 07/19/17 12) How do you plan to track your weights? Patient has a plan and is logging weights 13) Just to recap, can you tell me under what circumstances you'll call your doctor? Review with patient when to call doctor: > Weight Gain > Shortness of Breath > Loss of Appetite/Not Eating Well > Difficulty Sleeping > Decreased Activity Tolerance > Edema (Swelling) in legs, feet, or stomach Patient is able to verbalize when they should call their doctor. 14) What questions or concerns do you have that we've not discussed? Patient has no further questions or concerns at this time. documented in this encounter Plan of Treatment Not on filedocumented as of this encounter Visit Diagnoses Not on filedocumented in this encounter Care Teams Lag Screwer Relationship Specialty Start Date End Date Taye Ron MD PCP - General 06/15/17 documented as of this encounter
--- OUTSIDE RECORDS SUMMARY | 2022-04-26 10:04 | XMS_ITS | Encounter Summary ---
:1950 Author Organization [facility] Address [address] [place] [address] Care Team Providers Name Role Phone Taye Ron MD Primary Care Provider Reason for Visit Reason Onset Date Comments Hospital Discharge Follow Up 06/22/2017 Encounter Details Date Type Department Care Team Description 06/22/2017 Telephone [facility] Inpatient Pharmacy - [facility] Follow Up Main [place] [address] [place] [id number] Social History Tobacco Use Types Packs/Day Years [...] this encounter Miscellaneous Notes Telephone Encounter - Deandra Arauzily, [facility] - 06/22/2017 1153 EST Transitions of Care pharmacy follow up: 48 hour discharge phone call Pharmacist interventions/recommendations: 1. Spoke with Mr. Gan, he sounded well and knowledgeable about medication changes. 2. [facility] medication list updated to match that of Dr. Ron's list 3. He is complaining of leg cramps, wondering if he can take more magnesium. 4. Is prescribed 30 units TID of Novolog but has been using less with changes to diet (did experience one episode of symptomatic hypoglycemia with blood sugar in the 60s but was able to reverse with self care at home). 5. Has a cardiology appointment in [place] in a few weeks but didn't know which doctor, so I did not forward this note to a cardiology provider. Please feel free to contact the transitions of care pharmacy service at the [facility] at [phone] with any questions or concerns. Thank you, Johanna Arauz, Pharm.D. Transitions of Care pharmacy 1) How have you been feeling since you've been discharged? No symptoms of Concern - Patient is feeling well Doing well, has lost weight since admission ------- Review Typical HF symptoms with patient -------- 2) When you were discharged, did you understand the medications prescribed for you? yes 3) Were you able to obtain all of your medications from your pharmacy? Yes Has lisinopril 20mg tablets (currently supposed to take 10mg), will have pharmacy split tablets, knows that 10 mg tablets are produced if he doesn't want them split in the future 4) Let's review the medications you are taking at home. (Compare the patient's reported meds (pill bottles) against the AVS in chart review Focus review on new meds and cardiac medications.) Discharge Medications: These changes are accurate as of: 06/22/17 11:53. If you have any questions, ask your nurse or doctor. CONTINUE taking these medications Sig adalimumab 40 mg/0.8 mL pen kit Commonly known as: HUMIRA PEN Inject 40 mg into the skin every 14 days. aspirin chewable 81 mg tablet Aspirin Enteric Coated 81mg Take 81 mg by mouth daily. atorvastatin 80 mg tablet Commonly known as: LIPITOR Take 1 Tab by mouth daily. Quantity: 30 Tab FISH OIL ORAL Take 1,000 mg by mouth daily. gabapentin 300 mg capsule Commonly known as: NEURONTIN Take 300 mg by mouth daily as needed. 300mg po TID insulin aspart 100 unit/mL injectable pen Commonly known as: NOVOLOG FLEXPEN Inject 30 units into the skin 3 times daily pre-meals. Give an additional 1 unit for every 20mg/dL of glucose above 140 mg/dL. Has been less than 30 units insulin detemir 100 unit/mL injection Commonly known as: LEVEMIR Inject 30 Units into the skin at bedtime. Inject 60 units qhs liraglutide 0.6 mg/0.1 mL (18 mg/3 mL) injectable pen Commonly known as: VICTOZA Inject 0.6 mg into the skin daily for one week then 1.2mg daily for one week then 1.8mg daily. lisinopril 20 mg tablet Commonly known as: PRINIVIL, ZESTRIL Take 20 mg by mouth daily. Take 10 mg (=1/2 tablet) by mouth daily magnesium oxide 400 mg tablet Commonly known [...] Tab by mouth daily. Quantity: 30 Tab torsemide 20 mg tablet Commonly known as: DEMADEX Take 1 Tab by mouth daily for 30 days. Quantity: 30 Tab traZODone 50 mg tablet Commonly known as: DESYREL Take 50 mg by mouth at bedtime. vitamin D: 2000 units daily Acetaminophen 500mg tablets: 1 tabet po Q6H prn Medication Review Findings: Medication list does not match what patient is taking due to med rec not completed upon discharge Thorough medication reconciliation completed with Dr. Ron and RN at appointment on 06/21 (list faxed to pharmacy) 5) Can you tell me which of your medications are for heart failure? Yes - Patient is knowledgable about their medications 6) Are you following a low sodium diet? Can you describe your diet plan to me? Yes - Patient able to articulate plan. Watching sodium/fat 7) Did you get dressed this morning and was it easier for you than before your last hospital admission? Yes 8) Please describe your level of activity over the past few days when you've been home. Activity level acceptable (unchanged or improving from time of discharge) 9) Let's review your doctor's name, number, and your return appointment information. Had PCP appointment yesterday, has cardiology appointment in 2 weeks in [place] Patient has understanding of their appointments. 10) Do you have a scale at home to weight yourself? yes 11) Did you weigh yourself this morning? Yes, weight was less. Date taken: today Has lost weight since admission 12) How do you plan to track your weights? Patient has a plan and is logging weights Was given a calendar by Aravind nurse educator in cardiology/HF 13) Just to recap, can you tell me under what circumstances you'll call your doctor? Review with patient when to call doctor: > Weight Gain > Shortness of Breath > Loss of Appetite/Not Eating Well > Difficulty Sleeping > Decreased Activity Tolerance > Edema (Swelling) in legs, feet, or stomach Patient is able to verbalize when they should call their doctor. Also reviewed signs and symptoms of hypoglycemia 14) What questions or concerns do you have that we've not discussed? Patient has no further questions or concerns at this time. Magesium documented in this encounter Plan of Treatment Not on filedocumented as of this encounter Visit Diagnoses Not on filedocumented in this encounter Discontinued Medications Medication Sig Discontinue Reason Start Date End Date traMADol (ULTRAM) 50 mg Take 50 mg by mouth 06/22/2017 tablet every 6 hours as needed for Pain. MV-MN/FOLIC AC/ALIP Take 1 Tab by mouth 1 08/22/2016 ACID/COQ10 (DIABETIC daily. VITAMIN ORAL) aspirin chewable 81 mg Take 81 mg by mouth Alternate therapy 06/22/2017 tablet daily. documented as of this encounter Historical Medications This list may reflect changes made after this encounter. Medication Sig Dispensed Refills Start Date End Date acetaminophen (TYLENOL) 500 Take 500 mg by mouth 0 mg tablet every 6 hours as needed for Pain. Cholecalciferol, Vitamin Take 1 Cap by mouth 0 D3, 2,000 unit capsule daily. aspirin (ASPIRIN EC) 81 mg Take 81 mg by mouth 0 EC tablet daily. added in this encounter Care Teams Pump And Still Operator Relationship Specialty Start Date End Date Taye Ron MD PCP - General 06/15/17 documented as of this encounter
[2022-04-26 10:30] LABS: Anion Gap 9.1 mmol/L (3-11); BUN 21 mg/dL (7-18); C-Reactive Protein 0.08 mg/dL (0.0-0.3); CO2 29.9 mmol/L (21.0-32.0); CREATININE 1.1 mg/dL (0.70-1.30); Calcium 10.2 mg/dL (8.5-10.1); Chloride 101 mmol/L (98-107); Estimated GFR 72.22 (mL/min/1.73m2); Glucose 91 mg/dL (74-106); Potassium 4.8 mmol/L (3.5-5.1); Sodium 140 mmol/L (136-145)
== END 2022-04-26 09:55 | disposition home or self-care (01) ==
LOC: LBO 09:56
PROVIDERS: PCP Family Medicine; Visit Provider Nurse Practitioner Acute Care
DX: L03.115 Cellulitis of right lower limb (principal)
CPT/HCPCS: 36415; 80048; 85025; 86140

== ENCOUNTER 2022-05-15 15:27 | Emergency (ER) | payer MEDICARE, SELFPAY | END 2022-05-15 15:50 | PROVIDERS: PCP Family Medicine | DX: Z53.21 Procedure and treatment not carried out due to patient leaving prior to being seen by health care provider (principal) ==

== ENCOUNTER 2022-05-18 12:53 | Emergency (ER) | payer MEDICARE, SELFPAY ==
[2022-05-18 13:02] VITALS: BP 133/68; PULSE 79; RESP 18; TEMP 36.6; O2SAT 95
--- NOTE | 2022-05-18 14:30 | DI.RAD_ITS ---
Exam(s) XR FOOT RT COMPLETE EXAM: XR FOOT RT COMPLETE CLINICAL HISTORY: heel wound, dm, TECHNIQUE: COMPARISON: No exams were available for comparison FINDINGS: Three views were obtained. There are mild izaguirre articular degenerative changes of the foot. There are arterial calcifications noted in the forefoot and midfoot. There is no gross erosive or destructive lesion of the bones. No fracture identified. IMPRESSION: RADIATION DOSE DELIVERED: Total DLP
--- NOTE | 2022-05-18 14:51 | W.ED.GENAD ---
Discharge Plan Disposition Patient Disposition: HOME Condition: Stable Discharge Details Clinical Impression: Cellulitis of foot, left, Diabetic ulcer of foot associated with diabetes mellitus due to underlying condition, limited to breakdown of skin Primary Care Provider: Taye Ron ED Provider: Radha Pavon Home Meds and New Rx's Prescriptions: New levofloxacin 750 mg tablet 750 mg PO DAILY 10 Days Qty: 10 0RF Rx Instructions: Take one tablet daily x 10 days Continued Humira(CF) 40 mg/0.4 mL syringe kit 40 mg SC Q2W magnesium oxide 500 mg tablet 500 mg PO DAILY lisinopril 2.5 mg tablet 2.5 mg PO DAILY Qty: 90 3RF furosemide 40 mg tablet 20 mg PO DAILY cholecalciferol (vitamin D3) 1,000 unit capsule 1,000 unit PO DAILY metoprolol succinate 25 mg tablet extended release 24 hr 25 mg PO DAILY 90 Days Qty: 90 3RF spironolactone 25 mg tablet 50 mg PO DAILY omega-3 fatty acids-fish oil 1 EACH capsule 1 ea PO DAILY insulin aspart U-100 [Novolog PenFill U-100 Insulin] 100 unit/mL cartridge 35 unit subcut TID atorvastatin 80 mg tablet 80 mg PO DAILY Qty: 90 3RF aspirin 81 MG tablet,chewable 81 mg PO DAILY AM gabapentin 600 MG tablet 300 mg PO TID Diabetes Health Formula 1 EACH tablet 1 ea PO DAILY AM metformin 1,000 mg Tablet 1,000 mg PO BID acetaminophen 500 mg Tablet 500 mg PO Q6H PRN Victoza 2-Yousuf 0.6 mg/0.1 mL (18 mg/3 mL) Pen Injector 1.8 mg subcut DAILY Levemir FlexTouch U-100 Insuln 100 unit/mL (3 mL) insulin pen 53 unit subcut QAM AND QHS (DME) blood-glucose meter [[place]Touch Ultra2 Meter[place] [facility] [place] .Route Qty: 1 0RF Rx Instructions: As directed (DME) OneTouch Ultra Test Strip See Rx Instructions .Route Qty: 100 0RF Rx Instructions: As directed Discharge Instructions Instructions: Cellulitis (ED) Additional Instructions: Is you do not need to present for your test on as we did the exam here tonight. I did speak with vascular Dr. Hussein at [facility]. Please call the vascular department to make a follow-up appointment with them. Please take the antibiotic daily as prescribed. The CT showed that you do have some occlusion in your vessels in the back of your knees however you do have some good below blood flow to your feet. Follow up with primary care provider in 3-5 days. Return to ED sooner if any worsening or concerns. Increase oral fluids. Referrals: [facility] [Outside] (Call to make an appointment with Vascular) Taye Ron [Primary Care Provider] - 5 days Discharge Data Discharge Date/Time-TO BE ENTERED AT DEPARTURE: 05/18/22 20:27 Medical Decision Making <DO Isabel - Last Filed: 05/19/22 09:13> Patient has a diabetic wound to his right medial heel that is concerning and will likely need admission for IV antibiotics His labs are pending abdomen x-ray He has excellent DP and PT pulses via Doppler ultrasound Letha transitioned to Radha Soto nurse practitioner pending x-rays and that CT comparison aorta with runoff Case discussed with Dr. Rubio who recommends patient needs vascular intervention and recommends CTA with runoff and consultation <Radha Pavon NP - Last Filed: 05/18/22 21:22> Medical Records Medical records reviewed: Yes I reviewed the patient's medical records. Medical records narrative: 1613: Care assumed from provider (DO Isabel) Please see their initial HPI, PE, and documentation. Discussed patient details and case and pending workup and disposition. Patient is hemodynamically stable, and alert and oriented. At the time of signout awaiting x-ray of the foot and CT and possible consultation with vascular at [facility]. 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 Spoke with Dr. Luke with V rad who confirms and relays the verbal results. There is also stenosis at the origin of the SMA and stenosis to the renal artery arteries. 1917: [facility] transfer center contact for vascular consultation. They report that they are not able to accommodate the transfer request due to their capacity at this time. 1931: Spoke with Dr. Bender with vascular at [facility] she was able to view the images I did discuss the results with her she recommends that the patient does need an angiogram but that this is not an emergent test need to be done now. She does recommend possibly an outpatient angiogram. She is going to speak with her attending tomorrow and call back here. She does recommend admission with with IV antibiotics. She reports that if we do not hear from them tomorrow to give them a call. We will call hospitalist for 2001: Spoke with Dr. Noel who is on for hospitalist regarding patient case and details in my discussion with vascular Dr. Graves. He does not see the need for patient to have IV antibiotics at this time since this is a chronic wound. He does recommend oral antibiotics such as levofloxacin or similar. Patient states that he has an appointment on for a radiology test. Will give Levofloxacin prescription. Patient is aware of plan and is in agreement with plan. Imaging Data Radiologic Study: Imaging: CT Scan Radiologist's impression: IMPRESSION: 1. 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 2. Stenosis at the origin of both renal arteries. 3. Occlusion in the right popliteal artery series 6, image 170. There may be intermittent reconstitution to the trifurcation.. 4. Occlusion in the left popliteal artery series 6, image [id number]. Intermittent reconstitution to the trifurcation. . 5. 2 cm nodule in the body of the pancreas measures up to 24 Hounsfield units.. Series 6, image 28. 6. The prostate is enlarged, greater than 5 cm. Recommend urology consult. HPI <DO Isabel - Last Filed: 05/19/22 09:13> General Date/Time Provider Initiated Documentation: 05/18/22 14:36. HPI Narrative: This 72-year-old male presents for report of recurrent left foot effusion. He was reportedly admitted for cellulitis and wound and discharge mid-April for similar presentation. He denies any fever or chills. He has neuropathy to the affected extremity but does report pain. He states that in the past week it has dramatically worsened. Dr. Willoughby saw his wound today and referred him to the emergency department reportedly. Related Data Home Medications Medication Instructions Recorded Confirmed aspirin 81 mg chewable tablet 81 mg PO DAILY AM 04/07/13 05/18/22 gabapentin 600 mg tablet 300 mg PO TID 04/07/13 05/18/22 multivit with min-folic 1 ea PO DAILY AM 04/07/13 04/09/22 acid-lutein 500 mcg-250 mcg tablet (Diabetes Health Formula) omega-3 fatty acids-fish oil 300 1 ea PO DAILY 03/31/15 05/18/22 mg-1,000 mg capsule metformin 1,000 mg tablet 1,000 mg PO BID 05/22/18 05/18/22 acetaminophen 500 mg tablet 500 mg PO Q6H PRN 01/26/19 05/18/22 liraglutide 0.6 mg/0.1 mL (18 mg/3 1.8 mg subcut DAILY 01/26/19 05/18/22 mL) subcutaneous pen injector (The Simple 2-Yousuf) cholecalciferol (vitamin D3) 25 1,000 unit PO DAILY 03/16/19 05/18/22 mcg (1,000 unit) capsule metoprolol succinate 25 mg 25 mg PO DAILY 90 days #90 tabs 03/16/19 05/18/22 tablet,extended release 24 hr adalimumab 40 mg/0.4 mL 40 mg subcut Q2W 05/10/19 05/18/22 subcutaneous syringe kit (HumAktiveBay(CF)) insulin aspart U-100 100 unit/mL 35 unit subcut TID 05/10/19 05/18/22 subcutaneous cartridge (Novolog PenFill U-100 Insulin aspart) lisinopril 2.5 mg tablet 2.5 mg PO DAILY Blood Pressure #90 05/10/19 05/18/22 tabs magnesium oxide 500 mg tablet 500 mg PO DAILY 05/10/19 05/18/22 insulin detemir U-100 100 unit/mL 53 unit subcut QAM AND QHS 11/13/19 05/18/22 (3 mL) subcutaneous pen (Levemir FlexTouch U-100 Insulin) spironolactone 25 mg tablet 50 mg PO DAILY 11/13/19 05/18/22 atorvastatin 80 mg tablet 80 mg PO DAILY #90 tabs 11/26/19 05/18/22 furosemide 40 mg tablet 20 mg PO DAILY 05/21/21 05/18/22 blood sugar diagnostic (AdvasenseTouch #100 ea 04/19/22 Ultra Test strips) blood-glucose meter (Advasenseuch #1 ea 04/19/22 Ultra2 Meter) levofloxacin 750 mg tablet 750 mg PO DAILY 10 days #10 tabs 05/18/22 Previous Rx's Medication Instructions Recorded metoprolol succinate 25 mg 25 mg PO DAILY 90 days #90 tabs 03/16/19 tablet,extended release 24 hr lisinopril 2.5 mg tablet 2.5 mg PO DAILY Blood Pressure #90 05/10/19 tabs atorvastatin 80 mg tablet 80 mg PO DAILY #90 tabs 11/26/19 blood sugar diagnostic (OneTouch #100 ea 04/19/22 Ultra Test strips) blood-glucose meter (OneTouch #1 ea 04/19/22 Ultra2 Meter) levofloxacin 750 mg tablet 750 mg PO DAILY 10 days #10 tabs 05/18/22 Allergies Allergy/AdvReac Type Severity Reaction Status Date / Time shellfish derived Allergy Severe Hives Verified 05/18/22 13:05 bee pollen Allergy Mild Anaphylaxsi Verified 05/18/22 13:05 s methotrexate [Methotrexate] Allergy Unknown Verified 05/18/22 13:05 General Stated Complaint: Cellulitis STEPHANIE: 3 Review of Systems <DO Isabel - Last Filed: 05/19/22 09:13> All systems reviewed & are unremarkable except as noted in HPI and below PFSH <DO Isabel - Last Filed: 05/19/22 09:13> All Active Problems (Updated 05/18/22 @ 20:11 by Radha Pavon NP) Cellulitis of foot, left (Acute) Diabetic ulcer of foot associated with diabetes mellitus due to underlying condition, limited to breakdown of skin (Acute) Non-healing wound of right heel (Acute) Cellulitis of right foot (Acute) S/P CABG x 3 (Acute ~01/31/19) Dyslipidemia (Acute) Hypertension (Chronic) Ischemic cardiomyopathy (Acute) CAD (coronary artery disease) (Chronic) Tubular adenoma (Acute 05/12/15) Medical History (Updated 05/18/22 @ 20:11 by Radha Pavon NP) 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, insulin dependent Mitral regurgitation Social History Smoking/Tobacco Use Status: Former Tobacco Use Quit Date: 08/08/95 Pack-years: 60 Tobacco: How many years used: 30 Smoking risk assessment performed?: Yes Alcohol Intake: former Drug use: Never Substance use type: does not use Housing: apartment current occupation: retired Do you feel safe at home: Yes Do you feel safe in your relationship?: Yes Exam <DO Isabel - Last Filed: 05/19/22 09:13> Const General: cooperative, comfortable and no acute distress Eyes Pupils: PERRL Resp Effort & Inspection: normal respiratory effort Cardio Rate: regular rate GI Inspection: normal to inspection Neuro General: patient alert and patient oriented x3 Extrem Ankle/foot/toe images: 1. large diabetic ulcer with surrounding erythema ~1 inch doppler pt and dp pulses obtained no crepitus Course <DO Isabel - Last Filed: 05/19/22 09:13> Vital Signs Vital signs: Vital Signs Temperature 36.6 C 05/18/22 13:02 Pulse 79 05/18/22 13:02 Respiratory Rate 18 05/18/22 13:02 Blood Pressure 133/68 05/18/22 13:02 Pulse Oximetry 95 05/18/22 13:02 Temperature 36.6 C 05/18/22 13:02 Temperature Source Temporal Artery Scan 05/18/22 13:02 Pulse 79 05/18/22 13:02 Respiratory Rate 18 05/18/22 13:02 Blood Pressure 133/68 05/18/22 13:02 Blood Pressure Position Sitting 05/18/22 13:02 Pulse Oximetry 95 05/18/22 13:02 Oxygen Delivery Method Room Air 05/18/22 13:02 Oxygen Flow Rate 0 05/18/22 13:02 Lab/Test Results Lab/Test Results: 05/18/22 14:36 Blood Blood Culture - Pending 05/18/22 14:36 Blood Blood Culture - Pending Sign Out <DO Isabel - Last Filed: 05/19/22 09:13> Sign Out Data: Sign Out Comment: pending cta with runoff and vascular consultation Last updated by Charity Uriarte PA at 05/18/22 15:58
[2022-05-18 15:24] LABS: Lactate 1.4 mmol/L (0.6-1.4)
[2022-05-18 15:26] LABS: Abs Immature Grans 0.04 10^3/uL (0.0-0.06); Absolute Basophil Count 0.06 10^3/uL (0.0-0.2); Absolute Eosinophil Count 0.34 10^3/uL (0.0-0.7); Absolute Lymphocyte Count 4.01 10^3/uL (1.2-3.4); Absolute Monocyte Count 0.69 10^3/uL (0.1-0.8); Absolute Neutrophil Count 5.93 10^3/uL (1.2-6.7); Basophils % 0.5; Eosinophils % 3.1; HCT 45.6 % (40.0-50.0); Immature Grans % 0.4; Lymphocytes % 36.2; MCH 29.8 pg (27.0-33.0); MCHC 32.9 % (32.0-36.0); MCV 91 fL (80-95); MPV 10.2 fL (8.0-11.0); Monocytes % 6.2; Neutrophils % 53.6; Platelet Count 269 10^3/uL (130-400); RBC 5.04 10^6/uL (4.36-5.78); RDW-SD 48.8 fL; WBC 11.07 10^3/uL (4.4-10.8)
[2022-05-18 15:41] LABS: ALT 40 U/L (16-63); AST 18 U/L (15-37); Albumin 4.3 g/dL (3.4-5.0); Alkaline Phosphatase 58 U/L (46-116); Anion Gap 8.8 mmol/L (3-11); BUN 25 mg/dL (7-18); Bilirubin, Total 0.5 mg/dL (0.2-1.0); CO2 31.2 mmol/L (21.0-32.0); CREATININE 0.9 mg/dL (0.70-1.30); Calcium 9.9 mg/dL (8.5-10.1); Chloride 101 mmol/L (98-107); Estimated GFR 91.88 (mL/min/1.73m2); Glucose 137 mg/dL (74-106); Potassium 4.5 mmol/L (3.5-5.1); Sodium 141 mmol/L (136-145); Total Protein 8.7 g/dL (6.4-8.2)
[2022-05-18 15:43] LABS: C-Reactive Protein < 0.05 mg/dL (0.0-0.3)
--- NOTE | 2022-05-18 15:45 | DI.CT_ITS ---
Exam(s) CT ABD AORTA CTA W RUNOFF EXAM: CT ABD AORTA CTA W RUNOFF CLINICAL HISTORY: diabetic wound, pvd,dim pulses TECHNIQUE: COMPARISON: No exams were available for comparison FINDINGS: CT angiography the abdomen and pelvis was performed with additional runoff protocol of the lower extr emities following intravenous infusion of 150 cc of Omnipaque 350. There are moderate atheromatous changes throughout the visualized arterial circulation. No abdominal aortic aneurysm. Less than 50 percent luminal diameter stenosis bilateral renal arteries. Unremark able celiac trunk. 50 percent luminal diameter stenosis superior mesenteric artery. There are bilateral popliteal artery occlusions which reconstitute partially at the level of the trif urcation. Lung bases are clear. Liver and spleen are unremarkable in appearance. There is a poorly defined approximately 2.6 cm in diameter nodule of the tail of the pancreas which i s of intermediate attenuation. Neoplastic disease not excluded, correlation with pancreatic protocol MRI recommended if clinically appropriate. Adrenals and kidneys appear normal. No urinary tract obstruction. Unremarkable appearance of the ur inary bladder. Appendix is normal. No evidence of diverticulitis or bowel obstruction. No abdominal wall hernia. No abdominal or pelvic adenopathy. IMPRESSION: 50 percent luminal diameter stenosis of SMA origin. Bilateral popliteal artery occlusions with partial reconstitution of arterial flow at the level of th e trifurcation bilaterally. Incidental finding 2.6 cm in diameter pancreatic tail lesion, malignancy not excluded. Correlation w ith pancreatic protocol MRI recommended. RADIATION DOSE DELIVERED: 1,960.46mGy.cm Total DLP !Error CTDIvol DATA REPOSITORY: All CT scans at this facility are submitted to the National Radiology Data Registry (NRDR) Dose Index Registry (DIR) with the [employer] (ACR). RADIATION OPTIMIZATION: All CT scans at this facility use at least one of these dose optimization te chniques: automated exposure control; mA and/or kV adjustment per patient size (includes targeted exa ms where dose is matched to clinical indication); or iterative reconstruction.
[2022-05-18] MEDS: PIPERACILLIN/TAZO 3.375 GM in Normal Saline 50 ML IVPB (15:46)
[2022-05-18] MEDS: VANCOMYCIN/WATER (PEG) 2 GM/400 ML BAG IVPB (16:27)
[2022-05-18] MEDS: Omnipaque 350 MG/ML 100 ML BTL 150 ML IJ (17:58)
--- NOTE | 2022-05-18 18:56 | DI.VRAD_ITS ---
PROCEDURE INFORMATION: Exam: XR Right Foot Exam date and time: 05/18/2022 5:58 PM Age: 72 years old Clinical indication: Other: Heel wound TECHNIQUE: Imaging protocol: Radiologic exam of the Right foot. Views: 3 or more views. COMPARISON: CT ABD AORTA CTA W RUNOFF 05/18/2022 5:50 PM FINDINGS: Bones/joints: There is no evidence of acute fracture.There is no evidence of malalignment or dislocation. Degenerative changes in the tarsal bones and IP joint Small Calcaneal spur at the insertion of the plantar fascia Soft tissues: Normal. IMPRESSION: There is no evidence of acute fracture.There is no evidence of malalignment or dislocation. Dictated and Authenticated by: Lissette Pérez MD. Ordering:MARCOS Nash MD
--- NOTE | 2022-05-18 19:06 | DI.VRAD_ITS ---
Addendum created by Lissette Pérez MD on 05/18/2022 7:13:12 PM EDT: THIS REPORT CONTAINS FINDINGS THAT MAY BE CRITICAL TO PATIENT CARE. The findings were verbally communicated via telephone conference with RANULFO Barnard 7:13 PM EDT on 05/18/2022. The findings were acknowledged and understood. Initial report created on 05/18/2022 7:05:47 PM EDT: PROCEDURE INFORMATION: Exam: CTA Abdominal Aorta and Bilateral Lower Extremities (Run-off) With Contrast Exam date and time: 05/18/2022 5:50 PM Age: 72 years old Clinical indication: Other: Heel wound; Patient HX: Diabetic wound, pvd, dim pulses TECHNIQUE: Imaging protocol: Computed tomographic angiography of the of the abdominal aorta, pelvis and bilateral lower extremities with contrast. 3D rendering (Not supervised by radiologist): MIP and/or 3D reconstructed images were created by the technologist. Contrast material: OMNIPAQUE 350; Contrast volume: 150 ml; Contrast route: INTRAVENOUS (IV); COMPARISON: MR LOWER JOINT RT WO/W 04/16/2022 3:07 PM FINDINGS: Aorta: No aortic aneurysm. No aortic dissection. 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 Renal arteries: Stenosis at the origin of both renal arteries. Right iliac arteries: No occlusion or significant stenosis. Right femoral/popliteal arteries: Stenosis in the right popliteal artery series 6, image 156. Occlusion in the right popliteal artery series 6, image 170. There may be intermittent reconstitution to the trifurcation.. Right infrapopliteal arteries: No occlusion or significant stenosis. Left iliac arteries: No occlusion or significant stenosis. Left femoral/popliteal arteries: Occlusion in the left popliteal artery series 6, image 175.-185. Intermittent reconstitution to the trifurcation. Left infrapopliteal arteries: No occlusion or significant stenosis. Liver: No mass. Gallbladder and bile ducts: Unremarkable. No calcified stones. No ductal dilation. Pancreas: 2 cm nodule in the body of the pancreas measures up to 24 Hounsfield units.. Spleen: Normal. No splenomegaly. Adrenal glands: Normal. No mass. Kidneys and ureters: Subcentimeter low attenuation area in the right kidney is too small for characterization. Nonobstructing left renal calculus Stomach and bowel: Diverticulosis of the rectosigmoid . No mima diverticulitis Appendix: Normal appendix Urinary bladder: Unremarkable. No mass. Reproductive: The prostate is enlarged, greater than 5 cm. Recommend urology consult. Intraperitoneal space: Unremarkable. No free air. No significant fluid collection. Lymph nodes: No lymphadenopathy. Bones/joints: Median sternotomy Soft tissues: Unremarkable. IMPRESSION: 1. 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 2. Stenosis at the origin of both renal arteries. 3. Occlusion in the right popliteal artery series 6, image 170. There may be intermittent reconstitution to the trifurcation.. 4. Occlusion in the left popliteal artery series 6, image 175.-185. Intermittent reconstitution to the trifurcation. . 5. 2 cm nodule in the body of the pancreas measures up to 24 Hounsfield units.. Series 6, image 28. 6. The prostate is enlarged, greater than 5 cm. Recommend urology consult. Dictated and Authenticated by: Lissette Pérez MD. Ordering:MARCOS Nash MD
[2022-05-18 19:29] VITALS: BP 124/69; PULSE 71; RESP 18; O2SAT 97
[2022-05-18 20:07] VITALS: BP 143/63; PULSE 62; RESP 18; O2SAT 98
== END 2022-05-18 20:27 | disposition home or self-care (01) ==
PROVIDERS: Physician Assistant; Emergency Provider Registered Nurse Emergency; PCP Family Medicine
DX: E11.621 Type 2 diabetes mellitus with foot ulcer (principal); L97.521 Non-pressure chronic ulcer of other part of left foot limited to breakdown of skin; L03.116 Cellulitis of left lower limb; Z79.82 Long term (current) use of aspirin; Z87.891 Personal history of nicotine dependence; Z79.84 Long term (current) use of oral hypoglycemic drugs; Z79.4 Long term (current) use of insulin
CPT/HCPCS: 36415; 75635; 80053; 87040; 96365; 96366; 96367; 99285; 73630; 83605; 85025; 86140; 99284; J2543; J3490

== ENCOUNTER 2022-05-25 17:46 | Emergency (ER) | payer MEDICARE, SELFPAY ==
[2022-05-25 18:00] VITALS: BP 128/55; PULSE 94; RESP 18; TEMP 36.6; O2SAT 97
[2022-05-25 18:14] VITALS: RESP 18
--- NOTE | 2022-05-25 18:26 | NUR.NOTE ---
Nursing Note: patient had angiogram this morning at [facility] with insertion site in the left groin, patient noticed increased swelling this evening and [facility] wanted patient to be checked out. Provider assessed via ultrasound. pedal and posterior tibial pulses present by doppler bilaterally.
--- NOTE | 2022-05-25 18:30 | DI.CT_ITS ---
Exam(s) CT ABDOMEN PELVIS CTA EXAM: CT ABDOMEN PELVIS CTA CLINICAL HISTORY: Post procedure swelling. TECHNIQUE: Imaging Protocol: Axial computed tomography images with coronal and sagittal reformatted images were created and reviewed CONTRAST MATERIAL: Intravenous: Omnipaque 350 Contrast volume:100 ml Oral: None COMPARISON: CT CT ABD AORTA CTA W RUNOFF from 05/18/2022 FINDINGS: As per request this study was limited to the pelvis. ABDOMEN: AORTA: The abdominal aorta is again noted be calcified but not enlarged. Retroaortic left renal vein is aga in noted.Common iliac arteries are calcified but not enlarged and there is no significant aneurysm di latation of the external iliac arteries nor of the common femoral arteries. Also no significant aneu rysm in the internal iliac arteries. Inferior mesenteric artery is patent. Renal arteries are paten t. OTHER: Partially included kidneys exhibit normal size and there is a nonobstructive calculus again noted in the left kidney, unchanged in size and position. No other renal calculi evident. No hydronephrosis. Subcutaneous increased markings on both sides the anterior abdominal wall again noted, possibly cellu litis pattern versus injection sites. There are no drainable fluid collections at these levels nor e lsewhere in the subcutaneous layer. No significant anterior abdominal hernia. No bowel obstruction. No free air. No abscess. No ischemic appearing bowel loops evident in the field of view of this s tudy. No evidence of appendicitis. There are diverticuli in the sigmoid. There is superimposed mil d streaking in the surrounding fat in the proximal sigmoid. Probable subtle diverticulitis. No free air. No abscess. URINARY BLADDER: Filled with contrast. No masses nor calculi evident. REPRODUCTIVE: Prostate size normal. Seminal vesicles unremarkable. OSSEOUS: No significant osseous lesions. No fractures. Very mild degenerative anterolisthesis L4 upon L5. IMPRESSION: 1. No aneurysm evident, as per request. 2. Sigmoid diverticulitis. No evidence of obvious perforation and no evidence of abscess. No free f luid in the pelvis. 3. Nonobstructive calculus in left kidney again noted. No hydronephrosis. RADIATION DOSE DELIVERED: 763.72mGy.cm Total DLP DATA REPOSITORY: All CT scans at this facility are submitted to the National Radiology Data Registry (NRDR) Dose Index Registry (DIR) with the [employer] (ACR). RADIATION OPTIMIZATION: All CT scans at this facility use at least one of these dose optimization te chniques: automated exposure control; mA and/or kV adjustment per patient size (includes targeted exa ms where dose is matched to clinical indication); or iterative reconstruction.
[2022-05-25 19:22] LABS: ALT 38 U/L (16-63); AST 23 U/L (15-37); Alkaline Phosphatase 59 U/L (46-116); Anion Gap 8.5 mmol/L (3-11); BUN 24 mg/dL (7-18); Bilirubin, Total 0.5 mg/dL (0.2-1.0); CO2 29.5 mmol/L (21.0-32.0); CREATININE 1.1 mg/dL (0.70-1.30); Calcium 9.3 mg/dL (8.5-10.1); Chloride 102 mmol/L (98-107); Estimated GFR 72.22 (mL/min/1.73m2); Glucose 245 mg/dL (74-106); Potassium 4.4 mmol/L (3.5-5.1); Sodium 140 mmol/L (136-145); Total Protein 8.5 g/dL (6.4-8.2)
[2022-05-25] MEDS: Omnipaque 350 MG/ML 100 ML BTL IV (20:04)
[2022-05-25] MEDS: Normal Saline Flush 10 ML SYR IVP (20:06)
--- NOTE | 2022-05-25 20:26 | DI.VRAD_ITS ---
PROCEDURE INFORMATION: Exam: CTA Pelvis With Contrast Exam date and time: 05/25/2022 8:03 PM Age: 72 years old Clinical indication: Other: Palpable bump developed after explorative surgery, vascular surgery concerned for aneurysm; Prior surgery; Surgery date: Post-operative (0-2 days); Surgery type: Exploratory vascular surgery TECHNIQUE: Imaging protocol: Computed tomographic angiography of the pelvis with contrast material. 3D rendering (Not supervised by radiologist): MIP and/or 3D reconstructed images were created by the technologist. Radiation optimization: All CT scans at this facility use at least one of these dose optimization techniques: automated exposure control; mA and/or kV adjustment per patient size (includes targeted exams where dose is matched to clinical indication); or iterative reconstruction. Contrast material: IGLESIA 350; Contrast volume: 100 ml; Contrast route: INTRAVENOUS (IV); COMPARISON: CT ABD AORTA CTA W RUNOFF 05/18/2022 5:50 PM FINDINGS: Aorta: Visualized aorta is unremarkable. No aneurysm observed Right iliac arteries: No occlusion or significant stenosis. Left iliac arteries: No occlusion or significant stenosis. 8 mm left renal calculus in the midpole. Mild renal scarring. Left renal cyst and indeterminate right renal hypodensities. A retroaortic left renal vein is noted, a normal variant. Stomach and bowel: Moderate to large stool in the colon. Colonic diverticulosis with superimposed mild infiltration in the proximal sigmoid projecting superiorly coronal images 54-55 Appendix: No evidence of appendicitis. Intraperitoneal space: Unremarkable. No free air. No significant fluid collection. Lymph nodes: Unremarkable. No enlarged lymph nodes. Reproductive: Unremarkable as visualized. Bladder: Normal. No mass. Bones/joints: Unremarkable. No acute fracture. No dislocation. Soft tissues: Unremarkable. IMPRESSION: No aneurysm detected Mild sigmoid colonic diverticulitis without gross perforation or abscess. Question constipation Dictated and Authenticated by: Daniel Verma MD. Ordering:ELIAS Garcia MD
--- NOTE | 2022-05-25 21:10 | ED.GENADUL_ITS ---
Discharge Plan Disposition Patient Disposition: [facility] Condition: Stable Discharge Details Clinical Impression: Swelling of surgical site Primary Care Provider: Taye Ron ED Provider: Jose Rodriguez Home Meds and New Rx's Prescriptions: No Action Humira(CF) 40 mg/0.4 mL syringe kit 40 mg SC Q2W magnesium oxide 500 mg tablet 500 mg PO DAILY lisinopril 2.5 mg tablet 2.5 mg PO DAILY Qty: 90 3RF furosemide 40 mg tablet 20 mg PO DAILY cholecalciferol (vitamin D3) 1,000 unit capsule 1,000 unit PO DAILY metoprolol succinate 25 mg tablet extended release 24 hr 25 mg PO DAILY 90 Days Qty: 90 3RF spironolactone 25 mg tablet 50 mg PO DAILY omega-3 fatty acids-fish oil 1 EACH capsule 1 ea PO DAILY insulin aspart U-100 [Novolog PenFill U-100 Insulin] 100 unit/mL cartridge 35 unit subcut TID atorvastatin 80 mg tablet 80 mg PO DAILY Qty: 90 3RF aspirin 81 MG tablet,chewable 81 mg PO DAILY AM gabapentin 600 MG tablet 300 mg PO TID Diabetes Health Formula 1 EACH tablet 1 ea PO DAILY AM metformin 1,000 mg Tablet 1,000 mg PO BID acetaminophen 500 mg Tablet 500 mg PO Q6H PRN Victoza 2-Yousuf 0.6 mg/0.1 mL (18 mg/3 mL) Pen Injector 1.8 mg subcut DAILY Levemir FlexTouch U-100 Insuln 100 unit/mL (3 mL) insulin pen 53 unit subcut QAM AND QHS (DME) blood-glucose meter [OneTouch Ultra2 Meter] [facility] See Rx Instructions .Route Qty: 1 0RF Rx Instructions: As directed (DME) OneTouch Ultra Test Strip See Rx Instructions .Route Qty: 100 0RF Rx Instructions: As directed Discharge Data Discharge Date/Time-TO BE ENTERED AT DEPARTURE: 05/25/22 21:33 Medical Decision Making Patient presenting to the emergency department for chief complaint of postoperative swelling. Patient had an angiogram of his right lower extremity and when he got home he noted swelling around the incisional insertion site to the left groin. Patient denies any increase in pain but does state noted elevated blood in his underwear but none on the bandage that was placed. Physical exam does show mild swelling to the left inguinal area with a Tegaderm and gauze over the site of insertion for angiogram. Bedside ultrasound was utilized and no obvious hematoma or fluid collection is noted, visible femoral pulse and distal pulses were dopplered and are obtainable with notation that posterior tibial pulses are more difficult to obtain. Patient otherwise denies any change in symptoms. Called and spoke with [facility] [place] who recommended a CTA of pelvis due to possible pseudoaneurysm. Labs reviewed and patient is stable for IV contrast. CT was performed and shows no aneurysm and otherwise incidental findings that I do not feel have anything to do with current condition. Did send imaging to [facility] [place] patient needed to leave due to ride situation so patient was discharged pending speaking with consults but given no worrisome findings on CT I feel this is appropriate. Spoke with [facility] vascular surgeon who reviewed the CT imaging and stated that there is concern for a pseudoaneurysm. He requested that the patient come back to the emergency department and be transported down to [facility] [place]. Accepting physician is Dr. Jarvis ED provider. Patient is agreeable to this plan of care. Imaging Data Radiologic Study: Imaging: CT Scan Radiologist's impression: FINDINGS: Aorta: Visualized aorta is unremarkable. No aneurysm observed Right iliac arteries: No occlusion or significant stenosis. Left iliac arteries: No occlusion or significant stenosis. 8 mm left renal calculus in the midpole. Mild renal scarring. Left renal cyst and indeterminate right renal hypodensities. A retroaortic left renal vein is noted, a normal variant. Stomach and bowel: Moderate to large stool in the colon. Colonic diverticulosis with superimposed mild infiltration in the proximal sigmoid projecting superiorly coronal images 54-55 Appendix: No evidence of appendicitis. Intraperitoneal space: Unremarkable. No free air. No significant fluid collection. Lymph nodes: Unremarkable. No enlarged lymph nodes. Reproductive: Unremarkable as visualized. Bladder: Normal. No mass. Bones/joints: Unremarkable. No acute fracture. No dislocation. Soft tissues: Unremarkable. IMPRESSION: No aneurysm detected Mild sigmoid colonic diverticulitis without gross perforation or abscess. Question constipation Dictated and Authenticated by: Daniel Verma MD. Lab Data Lab results reviewed: Yes I reviewed the patient's lab results. HPI General Mode of arrival: ambulatory . Date/Time Provider Initiated Documentation: 05/25/22 17:58 . Limitations to Documentation: no limitations . Information obtained by: patient and RN notes reviewed . History of Present Illness 72 year old M presents to the emergency department with the chief complaint of left groin swelling , Quality is described as other (denies pain ), Related Data Home Medications Medication Instructions Recorded Confirmed aspirin 81 mg chewable tablet 81 mg PO DAILY AM 04/07/13 05/25/22 gabapentin 600 mg tablet 300 mg PO TID 04/07/13 05/25/22 multivit with min-folic 1 ea PO DAILY AM 04/07/13 05/25/22 acid-lutein 500 mcg-250 mcg tablet (Diabetes Health Formula) omega-3 fatty acids-fish oil 300 1 ea PO DAILY 03/31/15 05/25/22 mg-1,000 mg capsule metformin 1,000 mg tablet 1,000 mg PO BID 05/22/18 05/25/22 acetaminophen 500 mg tablet 500 mg PO Q6H PRN 01/26/19 05/25/22 liraglutide 0.6 mg/0.1 mL (18 mg/3 1.8 mg subcut DAILY 01/26/19 05/25/22 mL) subcutaneous pen injector ([employer] 2-Yousuf) cholecalciferol (vitamin D3) 25 1,000 unit PO DAILY 03/16/19 05/25/22 mcg (1,000 unit) capsule metoprolol succinate 25 mg 25 mg PO DAILY 90 days #90 tabs 03/16/19 05/25/22 tablet,extended release 24 hr adalimumab 40 mg/0.4 mL 40 mg subcut Q2W 05/10/19 05/25/22 subcutaneous syringe kit (Humira(CF)) insulin aspart U-100 100 unit/mL 35 unit subcut TID 05/10/19 05/25/22 subcutaneous cartridge (Novolog PenFill U-100 Insulin aspart) lisinopril 2.5 mg tablet 2.5 mg PO DAILY Blood Pressure #90 05/10/19 05/25/22 tabs magnesium oxide 500 mg tablet 500 mg PO DAILY 05/10/19 05/25/22 insulin detemir U-100 100 unit/mL 53 unit subcut QAM AND QHS 11/13/19 05/25/22 (3 mL) subcutaneous pen (Levemir FlexTouch U-100 Insulin) spironolactone 25 mg tablet 50 mg PO DAILY 11/13/19 05/25/22 atorvastatin 80 mg tablet 80 mg PO DAILY #90 tabs 11/26/19 05/25/22 furosemide 40 mg tablet 20 mg PO DAILY 05/21/21 05/25/22 blood sugar diagnostic (OneTouch #100 ea 04/19/22 Ultra Test strips) blood-glucose meter (OneTouch #1 ea 04/19/22 Ultra2 Meter) Previous Rx's Medication Instructions Recorded metoprolol succinate 25 mg 25 mg PO DAILY 90 days #90 tabs 03/16/19 tablet,extended release 24 hr lisinopril 2.5 mg tablet 2.5 mg PO DAILY Blood Pressure #90 05/10/19 tabs atorvastatin 80 mg tablet 80 mg PO DAILY #90 tabs 11/26/19 blood sugar diagnostic (OneTouch #100 ea 04/19/22 Ultra Test strips) blood-glucose meter (OneTouch #1 ea 04/19/22 Ultra2 Meter) Allergies Allergy/AdvReac Type Severity Reaction Status Date / Time shellfish derived Allergy Severe Hives Verified 05/25/22 18:03 bee pollen Allergy Mild Anaphylaxsi Verified 05/25/22 18:03 s methotrexate [Methotrexate] Allergy Unknown Verified 05/25/22 18:03 General Stated Complaint: Laceration STEPHANIE: 3 Review of Systems Constitutional Constitutional: Denies chills and Denies fever(s) Cardiovascular Cardiovascular: Denies chest pain and Denies dyspnea Respiratory Respiratory: Denies dyspnea Gastrointestinal Gastrointestinal: Denies abdominal pain, Denies nausea and Denies vomiting Genitourinary Genitourinary: Denies genital pain, Denies dysuria, Denies flank pain, Denies scrotal swelling, Denies testicular mass and Denies testicular pain Musculoskeletal Musculoskeletal: Denies muscle weakness Integumentary/Breasts Skin/Breast: Reports as per HPI, Denies skin pain and Reports skin swelling Neurologic Neurologic: Denies paresthesias (denies change from baseline) PFSH All Active Problems (Updated 05/25/22 @ 23:24 by Jose Rodriguez NP) Cellulitis of foot, left (Acute) Diabetic ulcer of foot associated with diabetes mellitus due to underlying condition, limited to breakdown of skin (Acute) Swelling of surgical site (Acute) Pseudoaneurysm of left femoral artery (Acute) Non-healing wound of right heel (Acute) Cellulitis of right foot (Acute) S/P CABG x 3 (Acute ~01/31/19) Dyslipidemia (Acute) Hypertension (Chronic) Ischemic cardiomyopathy (Acute) CAD (coronary artery disease) (Chronic) Tubular adenoma (Acute 05/12/15) Medical History (Updated 05/25/22 @ 23:24 by Jose Rodriguez NP) 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, insulin dependent Mitral regurgitation Social History Smoking/Tobacco Use Status: Former Tobacco Use Quit Date: 08/08/95 Pack-years: 60 Tobacco: How many years used: 30 Smoking risk assessment performed?: Yes Alcohol Intake: former Drug use: Never Substance use type: does not use Housing: apartment current occupation: retired Do you feel safe at home: Yes Do you feel safe in your relationship?: Yes Exam Const General: cooperative, no acute distress and not ill appearing Orientation: alert, awake and oriented x3 Resp Effort & Inspection: normal respiratory effort, able to speak in complete sentences and no respiratory distress Cardio Rate: regular rate Rhythm: regular rhythm GI Inspection: obesity and other (Slight swelling noted to) Neuro General: patient alert, patient awake, patient oriented x3, moves all extremities and no focal motor deficits Course Vital Signs Vital signs: Vital Signs Temperature 36.6 C 05/25/22 18:00 Pulse 94 H 05/25/22 18:00 Respiratory Rate 18 05/25/22 18:00 Blood Pressure 128/55 L 05/25/22 18:00 Pulse Oximetry 97 05/25/22 18:00 Temperature 36.6 C 05/25/22 18:00 Temperature Source Tympanic 05/25/22 18:00 Pulse 94 H 05/25/22 18:00 Respiratory Rate 18 05/25/22 18:14 Respiratory Effort Non-Labored 05/25/22 18:17 Respiratory Depth Normal 05/25/22 18:14 Respiratory Pattern Normal 05/25/22 18:14 Blood Pressure 128/55 L 05/25/22 18:00 Blood Pressure Position Sitting 05/25/22 18:00 Pulse Oximetry 97 05/25/22 18:00 Oxygen Delivery Method Room Air 05/25/22 18:00 Oxygen Flow Rate 0 05/25/22 18:00 Pain Level 3 05/25/22 18:00 Lab/Test Results Lab/Test Results: Laboratory Tests Range/Units 05/25/22 18:56 Sodium (136-145) mmol/L 140 Potassium (3.5-5.1) mmol/L 4.4 Chloride (98-107) mmol/L 102 Carbon Dioxide (21.0-32.0) mmol/L 29.5 Anion Gap (3-11) mmol/L 8.5 BUN (7-18) mg/dL 24 H Creatinine (0.70-1.30) mg/dL 1.1 Est GFR (CKD-EPI 2020) (mL/min/1.73m2) 72.22 Glucose (74-106) mg/dL 245 H Calcium (8.5-10.1) mg/dL 9.3 Total Bilirubin (0.2-1.0) mg/dL 0.5 AST (15-37) U/L 23 ALT (16-63) U/L 38 Alkaline Phosphatase (46-116) U/L 59 Total Protein (6.4-8.2) g/dL 8.5 H Albumin (3.4-5.0) g/dL 4.0
[2022-05-25 21:26] VITALS: BP 117/69; PULSE 83; RESP 16; TEMP 36.7; O2SAT 96
== END 2022-05-25 21:33 | disposition short-term general hospital (02) ==
PROVIDERS: Emergency Provider Nurse Practitioner Family; PCP Family Medicine
DX: T81.89XA Other complications of procedures, not elsewhere classified, initial encounter (principal); R19.09 Other intra-abdominal and pelvic swelling, mass and lump; E11.9 Type 2 diabetes mellitus without complications
CPT/HCPCS: 80053; 99285; 74174; 99284; J3490

== ENCOUNTER 2022-05-25 23:19 | Emergency (ER) | payer MEDICARE, SELFPAY ==
--- NOTE | 2022-05-25 23:21 | ED.GENADUL_ITS ---
Discharge Plan Disposition Patient Disposition: [facility] Condition: Stable Discharge Details Clinical Impression: Pseudoaneurysm of left femoral artery Primary Care Provider: Taye Ron ED Provider: Jose Rodriguez Home Meds and New Rx's Prescriptions: No Action Humira(CF) 40 mg/0.4 mL syringe kit 40 mg SC Q2W magnesium oxide 500 mg tablet 500 mg PO DAILY lisinopril 2.5 mg tablet 2.5 mg PO DAILY Qty: 90 3RF furosemide 40 mg tablet 20 mg PO DAILY cholecalciferol (vitamin D3) 1,000 unit capsule 1,000 unit PO DAILY metoprolol succinate 25 mg tablet extended release 24 hr 25 mg PO DAILY 90 Days Qty: 90 3RF spironolactone 25 mg tablet 50 mg PO DAILY omega-3 fatty acids-fish oil 1 EACH capsule 1 ea PO DAILY insulin aspart U-100 [Novolog PenFill U-100 Insulin] 100 unit/mL cartridge 35 unit subcut TID atorvastatin 80 mg tablet 80 mg PO DAILY Qty: 90 3RF aspirin 81 MG tablet,chewable 81 mg PO DAILY AM gabapentin 600 MG tablet 300 mg PO TID Diabetes Health Formula 1 EACH tablet 1 ea PO DAILY AM metformin 1,000 mg Tablet 1,000 mg PO BID acetaminophen 500 mg Tablet 500 mg PO Q6H PRN Victoza 2-Yousuf 0.6 mg/0.1 mL (18 mg/3 mL) Pen Injector 1.8 mg subcut DAILY Levemir FlexTouch U-100 Insuln 100 unit/mL (3 mL) insulin pen 53 unit subcut QAM AND QHS (DME) blood-glucose meter [OneTouch Ultra2 Meter] [facility] [place] See Rx Instructions .Route Qty: 1 0RF Rx Instructions: As directed (DME) OneTouch Ultra Test Strip See Rx Instructions .Route Qty: 100 0RF Rx Instructions: As directed Discharge Data Discharge Date/Time-TO BE ENTERED AT DEPARTURE: 05/26/22 00:15 Medical Decision Making Please see previous note from earlier today where patient was requested to return by vascular surgeon for transfer to [facility] [place]. Patient in stable condition with stating slight increase of swelling but otherwise denies pain discomfort or other symptoms. Patient transferred to [facility] [place] per EMS. HPI General Mode of arrival: ambulatory . Date/Time Provider Initiated Documentation: 05/25/22 23:21 . Limitations to Documentation: no limitations . Information obtained by: patient and RN notes reviewed . History of Present Illness 72 year old M presents to the emergency department with the chief complaint of Left groin swelling postprocedure, Patient notes no other symptoms.. Patient did receive the following treatments prior to arrival, none Related Data Home Medications Medication Instructions Recorded Confirmed aspirin 81 mg chewable tablet 81 mg PO DAILY AM 04/07/13 05/25/22 gabapentin 600 mg tablet 300 mg PO TID 04/07/13 05/25/22 multivit with min-folic 1 ea PO DAILY AM 04/07/13 05/25/22 acid-lutein 500 mcg-250 mcg tablet (Diabetes Health Formula) omega-3 fatty acids-fish oil 300 1 ea PO DAILY 03/31/15 05/25/22 mg-1,000 mg capsule metformin 1,000 mg tablet 1,000 mg PO BID 05/22/18 05/25/22 acetaminophen 500 mg tablet 500 mg PO Q6H PRN 01/26/19 05/25/22 liraglutide 0.6 mg/0.1 mL (18 mg/3 1.8 mg subcut DAILY 01/26/19 05/25/22 mL) subcutaneous pen injector ([employer] 2-Yousuf) cholecalciferol (vitamin D3) 25 1,000 unit PO DAILY 03/16/19 05/25/22 mcg (1,000 unit) capsule metoprolol succinate 25 mg 25 mg PO DAILY 90 days #90 tabs 03/16/19 05/25/22 tablet,extended release 24 hr adalimumab 40 mg/0.4 mL 40 mg subcut Q2W 05/10/19 05/25/22 subcutaneous syringe kit (Humira(CF)) insulin aspart U-100 100 unit/mL 35 unit subcut TID 05/10/19 05/25/22 subcutaneous cartridge (Novolog PenFill U-100 Insulin aspart) lisinopril 2.5 mg tablet 2.5 mg PO DAILY Blood Pressure #90 05/10/19 05/25/22 tabs magnesium oxide 500 mg tablet 500 mg PO DAILY 05/10/19 05/25/22 insulin detemir U-100 100 unit/mL 53 unit subcut QAM AND QHS 11/13/19 05/25/22 (3 mL) subcutaneous pen (Levemir FlexTouch U-100 Insulin) spironolactone 25 mg tablet 50 mg PO DAILY 11/13/19 05/25/22 atorvastatin 80 mg tablet 80 mg PO DAILY #90 tabs 11/26/19 05/25/22 furosemide 40 mg tablet 20 mg PO DAILY 05/21/21 05/25/22 blood sugar diagnostic (OneTouch #100 ea 04/19/22 Ultra Test strips) blood-glucose meter (OneTouch #1 ea 04/19/22 Ultra2 Meter) Previous Rx's Medication Instructions Recorded metoprolol succinate 25 mg 25 mg PO DAILY 90 days #90 tabs 03/16/19 tablet,extended release 24 hr lisinopril 2.5 mg tablet 2.5 mg PO DAILY Blood Pressure #90 05/10/19 tabs atorvastatin 80 mg tablet 80 mg PO DAILY #90 tabs 11/26/19 blood sugar diagnostic (OneTouch #100 ea 04/19/22 Ultra Test strips) blood-glucose meter (OneTouch #1 ea 04/19/22 Ultra2 Meter) Allergies Allergy/AdvReac Type Severity Reaction Status Date / Time shellfish derived Allergy Severe Hives Verified 05/25/22 18:03 bee pollen Allergy Mild Anaphylaxsi Verified 05/25/22 18:03 s methotrexate [Methotrexate] Allergy Unknown Verified 05/25/22 18:03 General STEPHANIE: 3 Review of Systems Narrative: No change in review of systems from previous visit All systems reviewed & are unremarkable except as noted in HPI and below Integumentary/Breasts Skin/Breast: Reports skin swelling PFSH All Active Problems (Updated 05/25/22 @ 23:24 by Jose Rodriguez NP) Cellulitis of foot, left (Acute) Diabetic ulcer of foot associated with diabetes mellitus due to underlying condition, limited to breakdown of skin (Acute) Swelling of surgical site (Acute) Pseudoaneurysm of left femoral artery (Acute) Non-healing wound of right heel (Acute) Cellulitis of right foot (Acute) S/P CABG x 3 (Acute ~01/31/19) Dyslipidemia (Acute) Hypertension (Chronic) Ischemic cardiomyopathy (Acute) CAD (coronary artery disease) (Chronic) Tubular adenoma (Acute 05/12/15) Medical History (Updated 05/25/22 @ 23:24 by Jose Rodriguez NP) 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, insulin dependent Mitral regurgitation Social History Smoking/Tobacco Use Status: Former Tobacco Use Quit Date: 08/08/95 Pack-years: 60 Tobacco: How many years used: 30 Smoking risk assessment performed?: Yes Alcohol Intake: former Drug use: Never Substance use type: does not use Housing: apartment current occupation: retired Do you feel safe at home: Yes Do you feel safe in your relationship?: Yes Exam Const General: cooperative, no acute distress and not ill appearing Orientation: alert, awake and oriented x3 Resp Effort & Inspection: normal respiratory effort, able to speak in complete sentences and no respiratory distress Cardio Rate: regular rate Rhythm: regular rhythm Neuro General: patient alert, patient awake, patient oriented x3, moves all extremities and no focal motor deficits
[2022-05-26 00:10] VITALS: BP 132/77; RESP 18; TEMP 36.8; O2SAT 97
== END 2022-05-26 00:15 | disposition short-term general hospital (02) ==
PROVIDERS: Emergency Provider Nurse Practitioner Family; PCP Family Medicine
DX: I72.4 Aneurysm of artery of lower extremity (principal); E11.9 Type 2 diabetes mellitus without complications
CPT/HCPCS: 80053; 99281; 99285; 74174; 99282; 99284; J3490

== ENCOUNTER 2022-07-05 10:49 | Outpatient (CLI) | payer MEDICARE, SELFPAY | END 2022-07-05 10:50 | disposition home or self-care (01) | LOC: PUVA 10:51 | PROVIDERS: PCP Family Medicine; Visit Provider Dermatology | DX: L40.9 Psoriasis, unspecified (principal) | CPT/HCPCS: 96900 ==

== ENCOUNTER 2022-07-06 08:37 | Outpatient (CLI) | payer MEDICARE, SELFPAY | END 2022-07-06 08:38 | disposition home or self-care (01) | LOC: PUVA 08:37 | PROVIDERS: PCP Family Medicine; Visit Provider Dermatology | DX: L40.9 Psoriasis, unspecified (principal) | CPT/HCPCS: 96900 ==

== ENCOUNTER 2022-07-08 08:55 | Outpatient (CLI) | payer MEDICARE, SELFPAY ==
--- NOTE | 2022-07-08 08:45 | RT.EKG_ITS ---
APPROVED REPORT Exam: Resting ECG Reason for Exam: CAD Patient Location: O HR:93 bpm ECG Measurements Heart Rate 93 AXIS CO 215 P 0 QRSd 115 QRS -84 QT 353 T 111 QTc 440 Conclusion Sinus rhythm...normal P axis, V-rate 50- 99 Prolonged CO interval...CO >215, V-rate 91-120 Incomplete RBBB and LAFB...axis(240,-40), S>R II III aVF Anterior infarct, old...Q >40mS, abnormal ST-T, V2-V5 Abnormal T, consider ischemia, lateral leads...T <-0.20mV, I aVL V5 V6
== END 2022-07-08 08:56 | disposition home or self-care (01) ==
LOC: DI.CARD 08:56
PROVIDERS: PCP Family Medicine; Visit Provider Internal Medicine Cardiovascular Disease
DX: I25.10 Atherosclerotic heart disease of native coronary artery without angina pectoris (principal); R94.31 Abnormal electrocardiogram [ECG] [EKG]; I25.2 Old myocardial infarction
CPT/HCPCS: 93010

== ENCOUNTER → 2022-07-08 10:45 | Outpatient (BNVA) | payer MEDICARE, SELFPAY | PROVIDERS: PCP Family Medicine; Referring Provider Family Medicine; Visit Provider Internal Medicine Cardiovascular Disease | DX: I25.10 Atherosclerotic heart disease of native coronary artery without angina pectoris (principal); I10 Essential (primary) hypertension; I25.5 Ischemic cardiomyopathy; E11.9 Type 2 diabetes mellitus without complications; E78.5 Hyperlipidemia, unspecified; Z95.1 Presence of aortocoronary bypass graft; Z98.890 Other specified postprocedural states | CPT/HCPCS: 93005; 99214 ==

== ENCOUNTER 2022-07-12 08:05 | Outpatient (CLI) | payer MEDICARE, SELFPAY | END 2022-07-12 08:06 | disposition home or self-care (01) | LOC: PUVA 08:05 | PROVIDERS: PCP Family Medicine; Visit Provider Dermatology | DX: L40.9 Psoriasis, unspecified (principal) | CPT/HCPCS: 96900 ==

== ENCOUNTER 2022-07-13 08:38 | Outpatient (CLI) | payer MEDICARE, SELFPAY | END 2022-07-13 08:39 | disposition home or self-care (01) | LOC: PUVA 08:38 | PROVIDERS: PCP Family Medicine; Visit Provider Dermatology | DX: L40.9 Psoriasis, unspecified (principal) | CPT/HCPCS: 96900 ==

== ENCOUNTER 2022-07-16 08:37 | Outpatient (CLI) | payer MEDICARE, SELFPAY | END 2022-07-16 08:38 | disposition home or self-care (01) | LOC: PUVA 08:37 | PROVIDERS: PCP Family Medicine; Visit Provider Dermatology | DX: L40.9 Psoriasis, unspecified (principal) | CPT/HCPCS: 96900 ==

== ENCOUNTER 2022-07-20 09:39 | Outpatient (CLI) | payer MEDICARE, SELFPAY | END 2022-07-20 09:40 | disposition home or self-care (01) | LOC: PUVA 09:40 | PROVIDERS: PCP Family Medicine; Visit Provider Dermatology | DX: L40.9 Psoriasis, unspecified (principal) | CPT/HCPCS: 96900 ==

== ENCOUNTER 2023-01-19 03:31 | Outpatient (CLI) | payer MEDICARE, SELFPAY ==
[2023-01-21 13:07] LABS: TB Interpretation Negative (Negative)
== END 2023-01-19 03:32 | disposition home or self-care (01) ==
LOC: LBO 03:32
PROVIDERS: PCP Family Medicine; Visit Provider Dermatology
DX: L40.0 Psoriasis vulgaris (principal); Z79.899 Other long term (current) drug therapy
CPT/HCPCS: 36415; 86480

== ENCOUNTER 2023-06-24 20:53 | Outpatient (REF) | payer MEDICARE, SELFPAY ==
[2023-06-24 19:22] LABS: Anion Gap 8.6 mmol/L (3-11); BUN 19 mg/dL (7-18); CO2 29.4 mmol/L (21.0-32.0); CREATININE 0.9 mg/dL (0.70-1.30); Calcium 9.7 mg/dL (8.5-10.1); Chloride 100 mmol/L (98-107); Estimated GFR 91.31 (mL/min/1.73m2); Glucose 140 mg/dL (74-106); Potassium 4.6 mmol/L (3.5-5.1); Sodium 138 mmol/L (136-145)
== END 2023-06-24 20:54 | disposition home or self-care (01) ==
LOC: NCHCN 20:53
PROVIDERS: PCP Family Medicine; Visit Provider Family Medicine
DX: E11.9 Type 2 diabetes mellitus without complications (principal)
CPT/HCPCS: 80048

== ENCOUNTER → 2023-07-04 10:38 | Outpatient (BNVA) | payer MEDICARE, SELFPAY | PROVIDERS: PCP Family Medicine; Visit Provider Internal Medicine Cardiovascular Disease | DX: I25.810 Atherosclerosis of coronary artery bypass graft(s) without angina pectoris (principal); E11.9 Type 2 diabetes mellitus without complications; I25.5 Ischemic cardiomyopathy; I10 Essential (primary) hypertension | CPT/HCPCS: 99214 ==

== ENCOUNTER → 2024-01-03 10:37 | Outpatient (BNVA) | payer MEDICARE, SELFPAY | PROVIDERS: PCP Family Medicine; Referring Provider Family Medicine; Visit Provider Internal Medicine Cardiovascular Disease | DX: I25.10 Atherosclerotic heart disease of native coronary artery without angina pectoris (principal); Z95.1 Presence of aortocoronary bypass graft; E78.5 Hyperlipidemia, unspecified; I10 Essential (primary) hypertension; I25.5 Ischemic cardiomyopathy | CPT/HCPCS: 99213 ==

== ENCOUNTER 2024-01-09 15:23 | Outpatient (CLI) | payer MEDICARE, SELFPAY ==
[2024-01-11 13:08] LABS: TB Interpretation Negative (Negative)
== END 2024-01-09 15:24 | disposition home or self-care (01) ==
LOC: LBO 01-12 15:24
PROVIDERS: PCP Family Medicine; Visit Provider Dermatology
DX: L40.0 Psoriasis vulgaris (principal); Z79.899 Other long term (current) drug therapy
CPT/HCPCS: 36415; 86480

== ENCOUNTER 2024-06-08 17:52 | Outpatient (CLI) | payer MEDICARE, SELFPAY ==
--- NOTE | 2024-06-08 18:06 | DI.RAD_ITS ---
Exam(s) XR CHEST 2V PA LATERAL EXAM: XR CHEST 2V PA LATERAL CLINICAL HISTORY: Cough, unspecified. R05.9. TECHNIQUE: 2D digital imaging was performed. COMPARISON: CR XR PORTABLE CHEST AP from 01/26/2019 FINDINGS: 2 views: There are sternotomy wires. Heart size is upper normal and mediastinum is not widened. Lungs are clear. No infiltrates nor pleural effusions. IMPRESSION: No acute pulmonary findings.Sternotomy wires evident. No evidence of pulmonary edema. DATA REPOSITORY: RADIATION DOSE DELIVERED:
--- NOTE | 2024-06-08 18:33 | DI.VRAD_ITS ---
PROCEDURE INFORMATION: Exam: XR Chest Exam date and time: 06/08/2024 5:56 PM Age: 74 years old Clinical indication: Other: Cough unspecified TECHNIQUE: Imaging protocol: Radiologic exam of the chest. Views: 2 views. COMPARISON: SC XR PORTABLE CHEST AP 01/26/2019 4:37 PM FINDINGS: Lungs: Minimal central vascular congestion. No airspace consolidation. Pleural spaces: No pleural effusion. No pneumothorax. Heart/Mediastinum: CABG. No significant cardiomegaly for technique Bones/joints: Median sternotomy wires. No displaced fracture. IMPRESSION: Minimal central vascular congestion. Dictated and Authenticated by: Victoria Bates MD. Ordering:ROLDAN Crespo MD
== END 2024-06-08 18:12 ==
LOC: DI 17:52
PROVIDERS: PCP Family Medicine; Visit Provider Physician Assistant Medical
DX: R05.9 Cough, unspecified (principal)
CPT/HCPCS: 71046

== ENCOUNTER 2024-06-28 08:07 | Outpatient (CLI) | payer MEDICARE, SELFPAY ==
--- NOTE | 2024-06-28 08:00 | RT.EKG_ITS ---
APPROVED REPORT Exam: Resting ECG Reason for Exam: CAD Patient Location: O HR:89 bpm ECG Measurements Heart Rate 89 AXIS WI 236 P 5 QRSd 115 QRS -80 QT 370 T 113 QTc 451 Conclusion Sinus rhythm...normal P axis, V-rate 50- 99 Prolonged WI interval...WI >220, V-rate 50- 90 LAD, consider left anterior fascicular block...axis(240,-40), S>R II III aVF LVH with secondary repolarization abnormality...multi-LVH criteria, abnrm ST-T Anterior infarct, old...Q >40mS, abnormal ST-T, V2-V5
== END 2024-06-28 08:08 | disposition home or self-care (01) ==
LOC: DI.CARD 08:07
PROVIDERS: PCP Family Medicine; Visit Provider Internal Medicine Cardiovascular Disease
DX: I25.10 Atherosclerotic heart disease of native coronary artery without angina pectoris (principal); Z95.1 Presence of aortocoronary bypass graft; I25.5 Ischemic cardiomyopathy
CPT/HCPCS: 93010

== ENCOUNTER → 2024-06-28 10:57 | Outpatient (BNVA) | payer MEDICARE, SELFPAY | PROVIDERS: PCP Family Medicine; Visit Provider Internal Medicine Cardiovascular Disease | DX: Z95.1 Presence of aortocoronary bypass graft (principal); I25.10 Atherosclerotic heart disease of native coronary artery without angina pectoris; I25.5 Ischemic cardiomyopathy | CPT/HCPCS: 93005; 99213 ==

== ENCOUNTER 2024-07-24 13:54 | Outpatient (REF) | payer MEDICARE, SELFPAY ==
[2024-07-24 16:11] LABS: Anion Gap 8.5 mmol/L (3-11); BUN 16 mg/dL (7-18); CO2 29.5 mmol/L (21.0-32.0); CREATININE 0.8 mg/dL (0.70-1.30); Calcium 9.1 mg/dL (8.5-10.1); Calculated LDL 36 mg/dL (<100); Chloride 103 mmol/L (98-107); Cholesterol 115 mg/dL (<200); Estimated GFR 94.03 (mL/min/1.73m2); Glucose 97 mg/dL (74-106); HDL Cholesterol 51 mg/dL (40-60); Magnesium 2.1 mg/dL (1.8-2.4); Potassium 4.7 mmol/L (3.5-5.1); Sodium 141 mmol/L (136-145); Triglyceride 144 mg/dL (<150)
[2024-07-24 17:02] LABS: COMMENT (LAB VIEW ONLY) 21.95 mg/dL; Microalb ug/mg Crea 13.7 ug/mg Cr
== END 2024-07-24 13:55 | disposition home or self-care (01) ==
LOC: NCHCN 13:54
PROVIDERS: PCP Student in an Organized Health Care Education/Training Program; Visit Provider Student in an Organized Health Care Education/Training Program
DX: E11.9 Type 2 diabetes mellitus without complications (principal)
CPT/HCPCS: 80048; 80061; 82043; 82570; 83735

== ENCOUNTER 2024-12-28 06:57 | Day surgery (SDC) | payer MEDICARE, SELFPAY ==
[2024-12-28 07:21] VITALS: BP 125/78; PULSE 86; RESP 18; TEMP 36.6; O2SAT 96
[2024-12-28] MEDS: Tropicam./Phenyleph. (1/2.5%) 5 ML BTL OS ×3 (07:29→07:43)
--- NOTE | 2024-12-28 07:55 | ANES.PREOP_ITS ---
General Info Date of Service Date Performed: 12/28/24 Height: 5 ft 6 in Weight: 120.5 kg Body Mass Index (BMI): 42.8 Surgical Procedure: Operation Date: 12/28/24 09:40 Proposed Procedure Side Surgeon p Cataract Extraction with IOL Implant Left Bennett Valencia MD Meds Allergies and Home Medications Allergies Allergy/AdvReac Type Severity Reaction Status Date / Time methotrexate (Methotrexate) Allergy Severe bleeding Verified 12/28/24 07:17 shellfish derived Allergy Severe Hives Verified 12/28/24 07:17 bee pollen Allergy Mild Anaphylaxsi Verified 12/28/24 07:17 s Home Medication ?Medication ?Instructions ?Recorded aspirin 81 mg chewable tablet 81 mg PO DAILY AM 04/07/13 gabapentin 600 mg tablet 300 mg PO TID 04/07/13 [id number]-[id number]-[id number] 1 ea PO DAILY AM 04/07/13 acid-lutein 500 mcg-250 mcg tablet (Diabetes Health Formula) omega-3 fatty acids-fish oil 300 1 ea PO DAILY 03/31/15 mg-1,000 mg capsule acetaminophen 500 mg tablet 500 mg PO Q6H PRN 01/26/19 liraglutide 0.6 mg/0.1 mL (18 mg/3 1.8 mg subcut DAILY 01/26/19 mL) subcutaneous pen injector ([employer] 2-Yousuf) cholecalciferol (vitamin D3) 25 1,000 unit PO DAILY 03/16/19 mcg (1,000 unit) capsule adalimumab 40 mg/0.4 mL 40 mg subcut Q2W 05/10/19 subcutaneous syringe kit (Humira(CF)) lisinopril 2.5 mg tablet 2.5 mg PO DAILY Blood Pressure #90 05/10/19 tabs furosemide 40 mg tablet 20 mg PO DAILY 05/21/21 blood sugar diagnostic (OneTouch #100 ea 04/19/22 Ultra Test strips) blood-glucose meter (OneTouch #1 ea 04/19/22 Ultra2 Meter) ammonium lactate 12 % lotion 1 applic topical BID 07/05/22 empagliflozin 25 mg tablet 25 mg PO DAILY 07/05/22 (Jardiance) triamcinolone acetonide 0.1 % 1 applic topical BID 07/05/22 topical cream insulin detemir U-100 100 unit/mL 50 unit subcut QAM AND QHS 07/08/22 (3 mL) subcutaneous pen (Levemir FlexTouch U-100 Insulin) magnesium oxide 500 mg PO BID 07/08/22 atorvastatin 40 mg tablet 40 mg PO DAILY 07/06/23 adalimumab-aacf 40 mg/0.8 mL 40 mg subcut DIRECTED 12/27/24 subcutaneous syringe kit insulin aspart 1 sliding scale dose subcut 12/27/24 (niacinamide)(U-100) 100 unit/mL(3 USEASDIRECTD mL) subcutaneous pen (Fiasp FlexTouch U-100 Insulin) metoprolol succinate 25 mg 25 mg PO DAILY 12/27/24 tablet,extended release 24 hr semaglutide 1 mg/dose (4 mg/3 mL) 1 mg subcut DIRECTED 12/27/24 subcutaneous pen injector (Ozempic) spironolactone 50 mg tablet 50 mg PO DAILY 12/27/24 (Aldactone) Current Visit Medications: Current Medications Generic Name Dose Route Start Last Admin Trade Name Freq PRN Reason Stop Dose Admin Acetaminophen 1,000 mg 12/28/24 06:15 Acetaminophen 500 Mg Tab PO 01/27/25 06:14 Q4H PRN PRN Balanced Salt Solution 500 ml 12/28/24 06:15 Balanced Salt Soln.-Plus 500 Ml Bag OP 01/27/25 06:14 DIRECTED JEISON Miscellaneous Medication 0 ml 12/28/24 06:15 Prednisolone 1%, Moxifloxacin 0.5%, Bromfenac 0.09% 5.6ml Btl OS 01/27/25 06:14 DIRECTED JEISON Miscellaneous Medication 0 ml 12/28/24 06:15 12/28/24 07:43 Tropicam./Phenyleph. (1/2.5%) 5 Ml Btl OS 01/27/25 06:14 1 drp DIRECTED JEISON Administration Tetracaine HCl 0 ml 12/28/24 06:15 Tetracaine 0.5% 4 Ml Btl OS 01/27/25 06:14 DIRECTED JEISON PFSH Active Problems Active Problems: Problem Status Onset Code Cortical age-related cataract, left eye Acute H25.012 Nuclear age-related cataract, left eye Acute H25.12 Non-healing wound of right heel Acute S91.301A Cellulitis of right foot Acute L03.115 Ischemic cardiomyopathy Acute I25.5 Dyslipidemia Acute E78.5 Hypertension Chronic I10 S/P CABG x 3 Acute ~01/31/19 Z95.1 CAD (coronary artery disease) Chronic I25.10 Tubular adenoma Acute 05/12/15 D36.9 Medical History Medical History Neuropathy due to type 2 diabetes mellitus Chronic left-sided HF (heart failure) Osteoarthritis PVD (peripheral vascular disease) Pseudoaneurysm Exertional angina Acute systolic heart failure HLD (hyperlipidemia) NSTEMI (non-ST elevated myocardial infarction) 2019 Psoriasis Diabetes mellitus type 2, insulin dependent Mitral regurgitation Arteriosclerotic heart disease (ASHD) Tobacco Smoking/Tobacco Use Status: Former Tobacco Use Passive smoking exposure: Yes Alcohol Alcohol Intake: former Substance Use Substance use: Never Substance use type: does not use Vital Signs and Lab Results Vital Signs Most Recent Vital Signs in EMR: Most Recent Vital Signs Temp Pulse Resp BP Pulse Ox 36.6 C 86 18 125/78 96 12/28/24 07:21 12/28/24 07:21 12/28/24 07:21 12/28/24 07:21 12/28/24 07:21 Point of Care Results Point of Care Results: Finger Stick Blood Glucose 108 12/28/24 07:25 Lab Results Blood Type / Crossmatch: No Data to Display Complete Blood Count: No Data to Display Complete Metabolic Panel: No Data to Display Liver Function Panel: No Data to Display Coagulation Panel: No Data to Display Cardiac Panel: No Data to Display Arterial Blood Gas: No Data to Display Venous Blood Gas: No Data to Display Pancreas Panel: No Data to Display Thyroid Panel: No Data to Display Infectious Disease: No Data to Display Blood Cultures: No Data to Display Toxicology Panel: No Data to Display Imaging and Studies Imaging and Studies Study information below may be from another EMR and interpreted by another provider. Please see original notes in EMR for more complete details. EKG Summary: EKG PATIENT NAME: Carlos Gan UNIT #: [id number] ORDERING PROVIDER: Rodolfo You M.D. PRIMARY CARE PROVIDER: HECTRO RON MD DATE/TIME OF SERVICE: 06/28/24 1041 : 1950 PERFORMING LOCATION: .CARD APPROVED REPORT Exam: Resting ECG Reason for Exam: CAD Patient Location: O HR:89 bpm ECG Measurements Heart Rate 89 AXIS MA 236 P 5 QRSd 115 QRS -80 QT 370 T113 QTc 451 Conclusion Sinus rhythm...normal P axis, V-rate 50- 99 Prolonged MA interval...MA >220, V-rate 50- 90 LAD, consider left anterior fascicular block...axis(240,-40), S>R II III aVF LVH with secondary repolarization abnormality...multi-LVH criteria, abnrm ST-T Anterior infarct, old...Q >40mS, abnormal ST-T, V2-V5 <Electronically signed by RODOLFO YOU MD in OV> E-Sign Date: 06/28/24 E-Sign Time: 1117 Stress Test Summary: Patient Name: CARLOS GAN Unit #: [id number] Loc: DI Ordering Provider: Hector Ron Status: [facility] Primary Care Provider: Hector Ron Date of Exam: 06/13/17 Sex: M : 1950 Age: 67 Exam(s) [id number] NM:MPI Resting & Stress GRP *[facility]* *[facility]* [address] [facility] [place] [address] Myocardial Perfusion Imaging - SPECT Regadenoson Date of study: 06/13/2017 *PATIENT PRESENTATION* Height: 167.6cm (66in) Blood Pressure: Weight: 136.4kg (300lb) BSA: 2.6m^2 Referring physician: Luis Felipe Garcia MD Ordering physician: Hector Ron Impressions: Abnormal study after pharmacologic stress. Summary: 1. Myocardial perfusion imaging: There is a large sized, complete, fixed defect involving the inferior and apical wall(s). This suggests minimal ischemia and large myocardial infarction in the distribution of the right coronary artery. Overall ischemia: minimal. 2. The calculated left ventricular ejection fraction after stress: 16%. No left ventricular regional motion abnormality. Severe diffuse HK. There is dyskinesis involving the apical wall(s) of the left ventricle. Indication: R07.9. History: REASON FOR VISIT: CHEST PAIN ASSOCIATED WITH SHORTNESS OF BREATH. LAST EPISODE WAS LAST NIGHT WHILE IN BED HE DESCRIBRIBES CHEST PRESSURE OR A TIGHTNESS IT LASTED APPROXIMATELY 2 HOURS. PT REPORTS THAT HE GOT OUT OF BED AND SAT UPRIGHT. THIS HELPED ALLEVIATE HIS SYMPTOMS. Risk factors: Family history of coronary artery disease. Hypertension. Diabetes mellitus. Obesity. Dyslipidemia. Cholesterol: 143mg/dl. HDL: 46mg/dl. LDL: 77mg/dl. Triglycerides: 115mg/dl. ALLERGIES: METHOTREXATE MEDICATIONS: ACETAMINOPHEN 1000 MG AT BEDTIME. ADALIMUMAB 40 MG SUB -Q DIRECTED. ASPIRIN 81 MG DAILY. ATORVASTATIN CALCIUM 80 MG DAILY. DIABETES HEALTH FORMULA 1 CAP DAILY. GABAPENTIN 300 MG TID. GLARGINE INSULIN 50 UNITS AT BEDTIME. INSULIN ASPART DIRECTED. LISINOPRIL 10 MG DAILY. METAXALONE 800 MG EVERY 8 HOURS NEEDED. OMEGA-3 FATTY ACIDS 1 CAP DAILY. TRAMADOL 50 MG EVERY 6 HOURS NEEDED. Imaging Technique: Protocol: Regadenoson. Acquisition: Gated SPECT; 1 day - rest/stress. The patient was imaged in the supine position. Attenuation correction used. Isotope administration: - Rest. Tc[99m]-sestamibi. Dose: 12.5mCi. Injection time: 08:03 AM. Injection to stress time: 00:45. - Stress. Tc[99m]-sestamibi. Dose: 34.4mCi. Injection time: 10:28 AM. 1-2 min before end of exercise Baseline ECG: SINUS RHYTHM. LBBB PATTERN. PROLONGED MA INTERVAL. Stress protocol: +--------+---+ + + !Stage !HR !BP (mmHg) !Comments ! +--------+---+ + + !Baseline!93 !120/74 (89)! ! +--------+---+ + + !1 min !102!120/74 (89)!Inject Regadenoson.! +--------+---+ + + !3 min !102!124/74 (91)! ! +--------+---+ + + !6 min !99 !128/76 (93)! ! +--------+---+ + + * Stress results: The rate-pressure product for the peak heart rate and blood pressure was 67708qq Hg/min. Stress ECG: AT BASELINE AND THROUGHOUT TESTING SINUS RYTHM, LBBB PATTERN AND 1ST DEGREE AV BLOCK. STRESS TEST ENDED IN 6 MINUTES & 30 SECONDS WHEN ALL SYMPTOMS OF LEXISCAN SUBSIDED. NORMAL HEART RATE AND BLOOD PRESSURE RESPONSE TO LEXISCAN INJECTION. NO ECTOPY NO ANGINA NO SIGNIFICANT ST CHANGES SEEN. Myocardial perfusion: Imaging information: gated. There is a large sized, complete, fixed defect involving the inferior and apical wall(s). This suggests minimal ischemia and large myocardial infarction in the distribution of the right coronary artery. Overall ischemia: minimal. Ventricular Function (Wall Motion): The calculated left ventricular ejection fraction after stress: 16%. No left ventricular regional motion abnormality. There is dyskinesis involving the apical wall(s) of the left ventricle. Study data: Luis Felipe Garcia MD supervised and was readily available during the procedure. This study was interpreted by [facility]. Study status: Routine. Consent: The risks, benefits, and alternatives to the procedure were explained to the patient and informed consent was obtained. Procedure: Initial setup. A baseline ECG was recorded. Surface ECG leads and manual cuff blood pressure measurements were monitored. Heart sounds: Normal. Lung sounds: Normal. Regadenoson stress test. Stress testing was performed, with regadenoson by intravenous bolus, for a total dose of 0.4mgover 10.00sec, followed by a 5ml saline flush. The infusion was terminated due to per protocol. The patient was unable to exercise due to left bundle branch block. Study completion: All catheters inserted during the procedure were removed. The patient tolerated the procedure well and was discharged from the lab. Discharge: The patient left the laboratory in stable condition. Birthdate: Patient birthdate: 1950. Sex: Gender: male. Study date: Study date: 06/13/2017. Study time: 09:30 AM. Electronically signed by Luis Felipe Garcia MD 06/13/2017 18:29 Ordering provider: Hector Ron CC: LUIS FELIPE GARCIA MD Dictated by: SALONI HULL M.D.06/14/17 1300 <Electronically signed by SALONI HULL M.D.>06/15/17 1538 Disclaimer: The [facility] radiologist is signing only the Nuclear Medicine MPI Imaging exam portion of the report. Transcribed by: Alexandra Jay06/15/17 0533 This is privileged, confidential information intended only for the provider named. Any use or distribution by any person other than this provider is strictly prohibited. If you receive this report in error, please notify us immediately at [phone] and return the original report to us at the address above. Thank-you. Echocardiogram Summary: Patient Name: CARLOS GAN Unit #: [id number] Loc: DI Ordering Provider: Boris Lambert M.D. Status: REG CLI Primary Care Provider: Hector Ron Date of Exam: 09/21/17 Sex: M : 1950 Age: 67 Exam(s) [id number] US:Echocardiogram Heart *[facility]* *[facility]* [address] [place] [address] Date of study: 09/21/2017 Transthoracic Echocardiography M-mode, complete 2D, complete spectral Doppler, and color Doppler *STUDY CONCLUSIONS* Summary: 1. Study data: Comparison was made to the study of 06/13/2009. EF 25-30% then. AK ant apical. 2. Left ventricle: The cavity size was normal. Wall thickness was increased in a pattern of severe LVH. Systolic function was mildly reduced. The estimated ejection fraction was 45-50%. Moderate hypokinesis of the inferior and apical myocardium. Diastolic parameters were normal for age. There was no evidence of elevated ventricular filling pressure by Doppler parameters. 3. Mitral valve: There was mild to moderate regurgitation. 4. Right ventricle: The cavity size was normal. Wall thickness was normal. Systolic function was normal. 5. Atrial septum: No defect or patent foramen ovale was identified. 6. Pulmonary arteries: Pulmonary systolic pressure was in the range of 15mm Hg to 25mm Hg. 7. Inferior vena cava: The vessel was patent and normal in size. The respirophasic diameter changes were in the normal range (greater than or equal to 50%), consistent with normal central venous pressure. *PATIENT PRESENTATION* Height: 167.6cm ((66in) ) S/D Pressure: 111 / 73 Weight: 125.6kg ((276.4lb) ) BSA: 2.49m^2 Test start time: 02:30 PM. Test stop time: 04:00 PM. PERFORMING Unknown ORDERING Brois Lambert REFERRING Boris Lmabert PERFORMING [facility] HAND RT Mart (R)(CT), [facility] *PROCEDURE DATA* Procedure information: The patient was identified by two identifiers. This study was interpreted by [facility]. Pertinent images and digital data are archived for permanent storage and are available for subsequent review. Comparison was made to the study of 06/13/2009. Study status: Routine. Transthoracic echocardiography. M-mode, complete 2D, complete spectral Doppler, and color Doppler. A Transthoracic Echocardiogram was performed. Scanning was performed from the parasternal, apical, subcostal, and suprasternal notch acoustic windows. Images were obtained using an [id number] cardiac ultrasound machine. Image quality was adequate. Study completion: The patient tolerated the procedure well. History: PMH: Ischemic cardiomyopathy I25.5 *CARDIAC ANATOMY* Left ventricle: The cavity size was normal. Wall thickness was increased in a pattern of severe LVH. Systolic function was mildly reduced. The estimated ejection fraction was 45-50%. Regional wall motion abnormalities: Moderate hypokinesis of the inferior and apical myocardium. The tissue Doppler parameters were abnormal. Diastolic parameters were normal for age. There was no evidence of elevated ventricular filling pressure by Doppler parameters. Aortic valve: Doppler: There was no stenosis. There was no regurgitation. VTI ratio of LVOT to aortic valve: 0.78. Valve area (VTI): 2.8cm^2. Indexed valve area (VTI): 1.1cm^2/m^2. Peak velocity ratio of LVOT to aortic valve: 0.77. Valve area (Vmax): 2.8cm^2. Indexed valve area (Vmax): 1.1cm^2/m^2. Mean gradient (S): 3.2mm Hg. Aorta: Aortic root: The aortic root was normal in size. Ascending aorta: The ascending aorta was normal in size. Mitral valve: Doppler: There was no evidence for stenosis. There was mild to moderate regurgitation. Valve area by pressure half-time: 4.7cm^2. Indexed valve area by pressure half-time: 1.9cm^2/m^2. Left atrium: The atrium was normal in size. Atrial septum: No defect or patent foramen ovale was identified. Right ventricle: The cavity size was normal. Wall thickness was normal. Systolic function was normal. Pulmonic valve: Doppler: There was no evidence for stenosis. There was trivial regurgitation. Tricuspid valve: Doppler: There was mild regurgitation. Pulmonary artery: Poorly visualized. Pulmonary systolic pressure was in the range of 15mm Hg to 25mm Hg. Right atrium: The atrium was normal in size. Pericardium: There was no pericardial effusion. Systemic veins: Inferior vena cava: Well visualized. The vessel was patent and normal in size. The respirophasic diameter changes were in the normal range (greater than or equal to 50%), consistent with normal central venous pressure. Baseline ECG: Normal sinus rhythm. Measurements Left ventricle Value Reference LV ID, ED, PLAX 5.1 cm 3.5 - 6.0 LV ID, ES, PLAX 3.7 cm 2.1 - 4.0 LV PW thickness, ED, PLAX 1.5 cm LV end-diastolic volume, 1-p A2C 124 ml LV ejection fraction, 1-p A2C 35 % LV end-diastolic volume, 1-p A4C 163 ml LV ejection fraction, 1-p A4C 43 % Ventricular septum Value Reference IVS thickness, ED, PLAX 1.7 cm LVOT Value Reference LVOT ID, A-P 2.2 cm LVOT area 3.6 cm^2 LVOT peak velocity, S 0.92 m/sec LVOT VTI, S 20.5 cm LVOT mean gradient, S 1.7 mm Hg Aortic valve Value Reference Aortic valve peak velocity, S 1.2 m/sec Aortic valve mean velocity, S 0.01 m/sec Aortic mean gradient, S 3.2 mm Hg VTI ratio, LVOT/AV 0.78 Aortic valve area, VTI 2.8 cm^2 Velocity ratio, peak, LVOT/AV 0.77 Aortic valve area, peak velocity 2.8 cm^2 Aorta Value Reference Aortic root ID, ED 3.1 cm Ascending aorta ID, A-P, S 3.9 cm Left atrium Value Reference LA area, ES, A4C 18.2 cm^2 8.8 - 23.4 LA volume/bsa, ES, 1-p A4C 23 ml/m^2 LA/aortic root ratio 1.51 Mitral valve Value Reference Mitral E-wave peak velocity 0.62 m/sec Mitral A-wave peak velocity 0.97 m/sec Mitral deceleration time 163 ms 150 - 230 Mitral pressure half-time 47 ms Mitral E/A ratio, peak 0.63 Mitral valve area, PHT, DP 4.7 cm^2 Tricuspid valve Value Reference Tricuspid regurg peak velocity 2.2 m/sec Tricuspid peak RV-RA gradient 18.8 mm Hg Right atrium Value Reference RA area, ES, A4C 11.7 cm^2 8.3 - 19.5 Legend: (L) and (H) kylee values outside specified reference range. Anesthesia Assessment and Plan Anesthesia History Personal History: No History of Anesthesia Complications Family History: No Family History of Anesthesia Complications Exercise Tolerance Exercise Tolerance: Metabolic Equivalents>4 Pertinent Negatives Pertinent Negatives: No Symptoms of GERD, No Major Cardiovascular Symptoms or Complaints, No Major Pulmonary Symptoms or Complaints and No History of CVA/TIA Cardiac & Pulmonary Exam Cardiac Exam: Normal S1/S2 Heart Sounds Pulmonary Exam: Clear Bilateral Breath Sounds Implantable Cardiac Device Does patient have a Pacemaker or an ICD?: No Airway Exam Known Difficult Airway: No Mallampati Class: 2 Mouth Opening: Normal (> 3cm) Thyromental Distance: Greater than 3 cm Neck Range of Motion: Full ROM Neck Circumference: Normal Teeth Condition: Generalized Poor Dentition and Loose or Chipped Airway Comments: Very few teeth left and in poor condition ASA Classification ASA Score: ASA 3 Emergency Case?: No NPO Status NPO Status: NPO Clears >2 hours, Solids >8 hours Anesthesia Plan Resuscitation Status: Full Code Anesthesia Technique: General Anesthesia Airway Planned: Natural Airway Monitors Used: Standard Monitors
[2024-12-28 07:56] VITALS: BMI 42.8
[2024-12-28] MEDS: Povidone-Iodine Ophth 30 ML BTL (10:11)
[2024-12-28] MEDS: Tetracaine 0.5% 4 ML BTL OS (10:11)
[2024-12-28] MEDS: Duovisc Viscoelastic System EACH 1 EACH (10:20)
[2024-12-28] MEDS: Phenylephrine/Lidocaine (15/10) MG/ML 1 ML VIAL (10:20)
[2024-12-28] MEDS: Lidocaine 1% Pres-Free 5 ML VIAL (10:20)
[2024-12-28] MEDS: Trypan Blue 0.06% 0.5 ML SYR (10:21)
[2024-12-28] MEDS: Balanced Salt Soln.-PLUS 500 ML BAG OP (10:21)
[2024-12-28] MEDS: Prednisolone 1%, Moxifloxacin 0.5%, Bromfenac 0.09% 5.6ML BTL OS (10:47)
[2024-12-28] MEDS: Moxifloxacin-PF 1 MG/ML VIAL (10:47)
--- NOTE | 2024-12-28 10:52 | W.PM.DSUDISC ---
Date of service: 12/28/24 Discharge Plan Disposition Patient Disposition: Home Discharge Details Attending Provider: Bennett Valencia Primary Care Provider: Horacio Molina Home Meds and New Rx's Prescriptions: No Action Humira(CF) 40 mg/0.4 mL syringe kit 40 mg SC Q2W lisinopril 2.5 mg tablet 2.5 mg PO DAILY Qty: 90 3RF furosemide 40 mg tablet 20 mg PO DAILY Levemir FlexTouch U100 Insulin 100 unit/mL (3 mL) insulin pen 50 unit subcut QAM AND QHS magnesium oxide 500 mg tablet 500 mg PO BID atorvastatin 40 mg tablet 40 mg PO DAILY Patient Comments: 07/06/23 per pcp med list RH cholecalciferol (vitamin D3) 1,000 unit capsule 1,000 unit PO DAILY omega-3 fatty acids-fish oil 1 EACH capsule 1 ea PO DAILY ammonium lactate 12 % Lotion 1 applic TOPICAL BID triamcinolone acetonide 0.1 % Cream 1 applic TOPICAL BID Jardiance 25 mg Tablet 25 mg PO DAILY aspirin 81 MG tablet,chewable 81 mg PO DAILY AM gabapentin 600 MG tablet 300 mg PO TID Diabetes Health Formula 1 EACH tablet 1 ea PO DAILY AM acetaminophen 500 mg Tablet 500 mg PO Q6H PRN liraglutide [[employer] 2-Yousuf] 0.6 mg/0.1 mL (18 mg/3 mL) Pen Injector 1.8 mg subcut DAILY (DME) blood-glucose meter [OneTouch Ultra2 Meter] Mis See Rx Instructions .Route Qty: 1 0RF Rx Instructions: As directed (DME) OneTouch Ultra Test Strip See Rx Instructions .Route Qty: 100 0RF Rx Instructions: As directed Fiasp FlexTouch U-100 Insulin 100 unit/mL (3 mL) insulin pen 1 sliding scale dose subcut USEASDIRECTD adalimumab-aacf 40 mg/0.8 mL syringe kit 40 mg subcut DIRECTED Rx Instructions: start on day 29 of therapy metoprolol succinate 25 mg tablet extended release 24 hr 25 mg PO DAILY Patient Comments: TAKE ONE TABLET BY MOUTH EVERY DAY Ozempic 1 mg/dose (4 mg/3 mL) pen injector 1 mg SUBCUT DIRECTED Patient Comments: INJECT 1 MG SUBCUTANEOUSLY ONCE WEEKLY spironolactone [Aldactone] 50 mg tablet 50 mg PO DAILY Discharge Instructions Stand Alone Forms: DSU Post-Op Cataract, Press Ganey (DSU) Discharge Orders Discharge Orders: Discharge Order (Routine); Ordered 12/28/24 Ordered By: Bennett Valencia DS: Diagnosis Discharge Diagnosis (1) Cortical age-related cataract, left eye: Status: Resolved (2) Nuclear age-related cataract, left eye: Status: Resolved
[2024-12-28 10:53] VITALS: BP 130/76; PULSE 81; RESP 16; TEMP 36.6; O2SAT 95
--- NOTE | 2024-12-28 10:53 | W.PM.OP ---
Operative Note Operative Note PRE-OP DIAGNOSIS: Dense nuclear/cortical cataract, left eye POST-OP DIAGNOSIS: same PROCEDURE: Cataract extraction using phacoemulsification with intraocular lens implant, left eye SURGEON: Bennett Valencia ANESTHESIA TYPE: Local By Surgeon and MAC Refer to Anesthesia Record PATHOLOGY: none sent COMPLICATIONS: None Patient was transported to: same day Patient's condition: stable Implants: Corey Clareon [id number] Indications: Progressive decreased vision due to cataract, left eye Procedure Description: CATARACT SURGERY OPERATIVE REPORT PREOPERATIVE DIAGNOSIS: Dense nuclear/cortical cataract, left eye POSTOPERATIVE DIAGNOSIS: Same OPERATION: Cataract extraction using phacoemulsification with posterior chamber intraocular lens implant, left eye. IOL: IOL Client Integration Manager/Model: Corey Clareon [id number] IOL Power: + 20.5 diopters IOL Serial Number: [id number] Optic Diameter: 6.0mm Haptic/Overall Diameter: 13.0mm PHACO INFO: Corey Centurion Vision System with OZil and Active Fluidics Cumulative Dispersed Energy (CDE): 5.58 seconds SURGEON: Bennett Valencia MD, KONSTANTIN ANESTHESIA: Monitored Anesthesia Care (MAC), with local sub-tenon's anesthetic infiltration COMPLICATIONS: None SPECIMENS: None INDICATIONS FOR PROCEDURE: The patient is a 74-year-old male with history of diminished visual acuity in both eyes secondary to the development of bilateral nuclear/cortical cataract. He also has a history of exudative ARMD and is currently undergoing intravitreal injections in both eyes. The option of cataract surgery was offered to the patient and he wished to proceed, understanding that postoperative visual acuity will be limited by the presence of pre-existing maculopathy. See office notes for detailed information. PROCEDURE: The correct surgical eye was identified and marked as the left eye and the pupil was dilated in the preoperative area using mydriatics and cycloplegics. The dilated pupil size was 7.0 mm. The patient elected to proceed without oral sedation. The patient was brought to the operating room where cardiopulmonary monitoring was instituted and surgical time-out was performed, confirming the correct operative eye and IOL power. Topical anesthesia was administered and ophthalmic povidone-iodine 5% was instilled into the conjunctival fornices. The estrellita-ocular area was prepped with Betadine 10% solution and draped in the usual sterile fashion for intraocular surgery, including an aperture drape. A Tegaderm transparent film dressing was cut in half and used to cover the lashes and lid margins. Care was taken to sequester the lashes and lid margins under the Tegaderm dressing. A lid speculum was placed between the lids of the operative eye and the Corey LuxOR Revalia operating microscope was maneuvered into position. Kevin scissors were then used to make a conjunctival buttonhole approximately 6mm posterior to the limbus in the inferonasal quadrant. Blunt dissection was carried out to expose bare sclera, and a blunt-tipped sub-tenon?s anesthesia cannula was introduced and passed posteriorly along the globe where non-preserved plain lidocaine was injected into posterior sub-Tenon?s space. A sideport knife was used to make a paracentesis port. VisionBlue was injected into the anterior chamber and allowed to sit for 30 seconds. Intraocular phenylephrine/lidocaine was injected into the anterior chamber. The anterior chamber was then filled with viscoelastic. A keratome knife was used construct a two-plane clear corneal tunnel extending 2.0mm into clear cornea. Very low scleral rigidity was noted. A flap was raised on the anterior capsule and capsulorhexis forceps were used to complete a continuous curvilinear capsulorhexis of 5.0 mm. The capsule was noted to be quite thin. Balanced salt solution was then used to perform cortical cleaving hydrodissection and nuclear hydrodelineation until the lens could be freely rotated within the capsular bag. The lens nucleus was then disassembled and removed within the capsular bag and iris plane using phacoemulsification. The anterior chamber was very deep. Residual cortical material was removed using the irrigation/aspiration handpiece. The posterior capsule was carefully polished to remove as much residual lens epithelial cells as safely possible. The capsular bag was then inflated and the anterior chamber deepened with viscoelastic. The lens implant described above was inserted into the capsular bag using the Corey Autonome Injector. A Kuglen hook was used to dial the IOL into position. Residual viscoelastic was then removed first from posterior to the IOL, then from the anterior chamber using the I/A handpiece. The lens implant was noted to center nicely within the capsular bag. The incisions were stromally hydrated, and the anterior chamber was reformed using BSS. Then 0.5cc of moxifloxacin 1.0mg/ml were injected into the capsular bag and anterior chamber. The incisions were checked with a Weck spear and found to be secure. Several drops of ophthalmic povidone-iodine 5% were then applied to the eye followed by two drops of combination steroid/NSAID/antibiotic solution. The drapes were removed and a clear plastic protective eye shield was placed over the eye. The patient was then returned to Same Day Surgery in stable condition. Date of Procedure: 12/28/24
--- NOTE | 2024-12-28 12:18 | W.ANESPOSTOP ---
Postoperative Evaluation Date, Time and Location Date Performed: 12/28/24 Time Performed: 10:54 Patient Location: Day Surgery Unit Vital Signs Most Recent Imported Vital Signs: Most Recent Vital Signs Temp Pulse Resp BP Pulse Ox 36.6 C 81 16 130/76 95 12/28/24 10:53 12/28/24 10:53 12/28/24 10:53 12/28/24 10:53 12/28/24 10:53 Pain Score Most Recent Pain Score: Most Recent Pain Score Pain Level 0 12/28/24 10:53 Assessment Mental Status: Awake (Alert & Oriented to Patient Baseline) Airway and Respiratory Function: Patent airway with normal (patient baseline) respiratory exam Cardiovascular Function: Hemodynamically Stable Hydration Status: Adequately Hydrated Nausea & Vomiting: No Nausea or Vomiting Pain: Pt. Denies Any Pain Peripheral Nerve Block: Other (Local by Dr. Valencia)
== END 2024-12-28 11:13 | disposition home or self-care (01) ==
LOC: SUR 06:58
PROVIDERS: PCP Student in an Organized Health Care Education/Training Program; Visit Provider Ophthalmology
PROC: (CPT 66984; principal; 2024-12-28 09:30)
DX: H25.012 Cortical age-related cataract, left eye (principal); H25.12 Age-related nuclear cataract, left eye; H35.023 Exudative retinopathy, bilateral
CPT/HCPCS: 66984; 00123; V2632; J2003

== ENCOUNTER 2025-01-04 07:44 | Day surgery (SDC) | payer MEDICARE, SELFPAY ==
[2025-01-04 08:37] VITALS: BP 130/62; PULSE 74; RESP 16; TEMP 36.6; O2SAT 94
[2025-01-04] MEDS: Tropicam./Phenyleph. (1/2.5%) 5 ML BTL OD ×3 (08:44→08:53)
--- NOTE | 2025-01-04 09:28 | W.ANESPRE ---
General Info Date of Service Date Performed: 01/04/25 Height: 5 ft 6 in Weight: 120.7 kg Body Mass Index (BMI): 42.9 Surgical Procedure: Operation Date: 01/04/25 10:40 Proposed Procedure Side Surgeon p Cataract Extraction with IOL Implant Right Bennett Valencia MD Meds Allergies and Home Medications Allergies Allergy/AdvReac Type Severity Reaction Status Date / Time methotrexate (Methotrexate) Allergy Severe bleeding Verified 01/04/25 08:48 shellfish derived Allergy Severe Hives Verified 01/04/25 08:48 bee pollen Allergy Mild Anaphylaxsi Verified 01/04/25 08:48 s Home Medication ?Medication ?Instructions ?Recorded aspirin 81 mg chewable tablet 81 mg PO DAILY AM 04/07/13 gabapentin 600 mg tablet 300 mg PO TID 04/07/13 lrsypdnyhdxo-hhwehveu-dmjnw 1 ea PO DAILY AM 04/07/13 acid-lutein 500 mcg-250 mcg tablet (Diabetes Health Formula) omega-3 fatty acids-fish oil 300 1 ea PO DAILY 03/31/15 mg-1,000 mg capsule acetaminophen 500 mg tablet 500 mg PO Q6H PRN 01/26/19 liraglutide 0.6 mg/0.1 mL (18 mg/3 1.8 mg subcut DAILY 01/26/19 mL) subcutaneous pen injector ([employer] 2-Yousuf) cholecalciferol (vitamin D3) 25 1,000 unit PO DAILY 03/16/19 mcg (1,000 unit) capsule adalimumab 40 mg/0.4 mL 40 mg subcut Q2W 05/10/19 subcutaneous syringe kit (Humira(CF)) lisinopril 2.5 mg tablet 2.5 mg PO DAILY Blood Pressure #90 05/10/19 tabs furosemide 40 mg tablet 20 mg PO DAILY 05/21/21 blood sugar diagnostic (OneTouch #100 ea 04/19/22 Ultra Test strips) blood-glucose meter (OneTouch #1 ea 04/19/22 Ultra2 Meter) ammonium lactate 12 % lotion 1 applic topical BID 07/05/22 empagliflozin 25 mg tablet 25 mg PO DAILY 07/05/22 (Jardiance) triamcinolone acetonide 0.1 % 1 applic topical BID 07/05/22 topical cream insulin detemir U-100 100 unit/mL 50 unit subcut QAM AND QHS 07/08/22 (3 mL) subcutaneous pen (Levemir FlexTouch U-100 Insulin) magnesium oxide 500 mg PO BID 07/08/22 atorvastatin 40 mg tablet 40 mg PO DAILY 07/06/23 adalimumab-aacf 40 mg/0.8 mL 40 mg subcut DIRECTED 12/27/24 subcutaneous syringe kit insulin aspart 1 sliding scale dose subcut 12/27/24 (niacinamide)(U-100) 100 unit/mL(3 USEASDIRECTD mL) subcutaneous pen (Fiasp FlexTouch U-100 Insulin) metoprolol succinate 25 mg 25 mg PO DAILY 12/27/24 tablet,extended release 24 hr semaglutide 1 mg/dose (4 mg/3 mL) 1 mg subcut DIRECTED 12/27/24 subcutaneous pen injector (Ozempic) spironolactone 50 mg tablet 50 mg PO DAILY 12/27/24 (Aldactone) Current Visit Medications: Current Medications Generic Name Dose Route Start Last Admin Trade Name Freq PRN Reason Stop Dose Admin Acetaminophen 1,000 mg 01/04/25 06:00 Acetaminophen 500 Mg Tab PO 02/03/25 05:59 Q4H PRN PRN Balanced Salt Solution 500 ml 01/04/25 06:00 Balanced Salt Soln.-Plus 500 Ml Bag OP 02/03/25 05:59 DIRECTED [facility] Miscellaneous Medication 0 ml 01/04/25 06:00 Prednisolone 1%, Moxifloxacin 0.5%, Bromfenac 0.09% 5.6ml Btl OD 02/03/25 05:59 DIRECTED [facility] Miscellaneous Medication 0 ml 01/04/25 06:00 01/04/25 08:53 Tropicam./Phenyleph. (1/2.5%) 5 Ml Btl OD 02/03/25 05:59 1 drp DIRECTED JE[facility] Administration Tetracaine HCl 0 ml 01/04/25 06:00 Tetracaine 0.5% 4 Ml Btl OD 02/03/25 05:59 DIRECTED [facility] PFSH Active Problems Active Problems: Problem Status Onset Code Cortical age-related cataract, right eye Acute H25.011 Nuclear age-related cataract, right eye Acute H25.11 Cortical age-related cataract, left eye Resolved H25.012 Nuclear age-related cataract, left eye Resolved H25.12 Non-healing wound of right heel Acute S91.301A Cellulitis of right foot Acute L03.115 Ischemic cardiomyopathy Acute I25.5 Dyslipidemia Acute E78.5 Hypertension Chronic I10 S/P CABG x 3 Acute ~01/31/19 Z95.1 CAD (coronary artery disease) Chronic I25.10 Tubular adenoma Acute 05/12/15 D36.9 Medical History Medical History Neuropathy due to type 2 diabetes mellitus Chronic left-sided HF (heart failure) Osteoarthritis PVD (peripheral vascular disease) Pseudoaneurysm Exertional angina Acute systolic heart failure HLD (hyperlipidemia) NSTEMI (non-ST elevated myocardial infarction) 2019 Psoriasis Diabetes mellitus type 2, insulin dependent Mitral regurgitation Arteriosclerotic heart disease (ASHD) Tobacco Smoking/Tobacco Use Status: Former Tobacco Use Passive smoking exposure: Yes Alcohol Alcohol Intake: former Substance Use Substance use: Never Substance use type: does not use Vital Signs and Lab Results Vital Signs Most Recent Vital Signs in EMR: Most Recent Vital Signs Temp Pulse Resp BP Pulse Ox 36.6 C 74 16 130/62 94 01/04/25 08:37 01/04/25 08:37 01/04/25 08:37 01/04/25 08:37 01/04/25 08:37 Point of Care Results Point of Care Results: Finger Stick Blood Glucose 120 01/04/25 08:35 Lab Results Blood Type / Crossmatch: No Data to Display Complete Blood Count: No Data to Display Complete Metabolic Panel: No Data to Display Liver Function Panel: No Data to Display Coagulation Panel: No Data to Display Cardiac Panel: No Data to Display Arterial Blood Gas: No Data to Display Venous Blood Gas: No Data to Display Pancreas Panel: No Data to Display Thyroid Panel: No Data to Display Infectious Disease: No Data to Display Blood Cultures: No Data to Display Toxicology Panel: No Data to Display Imaging and Studies Imaging and Studies Study information below may be from another EMR and interpreted by another provider. Please see original notes in EMR for more complete details. EKG Summary: EKG PATIENT NAME: Carlos Gan UNIT #: [id number] ORDERING PROVIDER: Rodolfo You M.D. PRIMARY CARE PROVIDER: HECTOR RON MD DATE/TIME OF SERVICE: 06/28/24 1041 : 1950 PERFORMING LOCATION: .CARD APPROVED REPORT Exam: Resting ECG Reason for Exam: CAD Patient Location: O HR:89 bpm ECG Measurements Heart Rate 89 AXIS ID 236 P 5 QRSd 115 QRS -80 QT 370 T113 QTc 451 Conclusion Sinus rhythm...normal P axis, V-rate 50- 99 Prolonged ID interval...ID >220, V-rate 50- 90 LAD, consider left anterior fascicular block...axis(240,-40), S>R II III aVF LVH with secondary repolarization abnormality...multi-LVH criteria, abnrm ST-T Anterior infarct, old...Q >40mS, abnormal ST-T, V2-V5 <Electronically signed by RODOLFO YOU MD in OV> E-Sign Date: 06/28/24 E-Sign Time: 1117 Stress Test Summary: Patient Name: CARLOS GAN Unit #: [id number] Loc: Ordering Provider: Hector Ron Status: [facility] Primary Care Provider: Hector Ron Date of Exam: 06/13/17 Sex: M : 1950 Age: 67 Exam(s) [id number] NM:MPI Resting & Stress GRP *[facility]* *[facility]* [address] [place] [address] Myocardial Perfusion Imaging - SPECT Regadenoson Date of study: 06/13/2017 *PATIENT PRESENTATION* Height: 167.6cm (66in) Blood Pressure: Weight: 136.4kg (300lb) BSA: 2.6m^2 Referring physician: Luis Felipe Garcia MD Ordering physician: Hector Ron Impressions: Abnormal study after pharmacologic stress. Summary: 1. Myocardial perfusion imaging: There is a large sized, complete, fixed defect involving the inferior and apical wall(s). This suggests minimal ischemia and large myocardial infarction in the distribution of the right coronary artery. Overall ischemia: minimal. 2. The calculated left ventricular ejection fraction after stress: 16%. No left ventricular regional motion abnormality. Severe diffuse HK. There is dyskinesis involving the apical wall(s) of the left ventricle. Indication: R07.9. History: REASON FOR VISIT: CHEST PAIN ASSOCIATED WITH SHORTNESS OF BREATH. LAST EPISODE WAS LAST NIGHT WHILE IN BED HE DESCRIBRIBES CHEST PRESSURE OR A TIGHTNESS IT LASTED APPROXIMATELY 2 HOURS. PT REPORTS THAT HE GOT OUT OF BED AND SAT UPRIGHT. THIS HELPED ALLEVIATE HIS SYMPTOMS. Risk factors: Family history of coronary artery disease. Hypertension. Diabetes mellitus. Obesity. Dyslipidemia. Cholesterol: 143mg/dl. HDL: 46mg/dl. LDL: 77mg/dl. Triglycerides: 115mg/dl. ALLERGIES: METHOTREXATE MEDICATIONS: ACETAMINOPHEN 1000 MG AT BEDTIME. ADALIMUMAB 40 MG SUB -Q DIRECTED. ASPIRIN 81 MG DAILY. ATORVASTATIN CALCIUM 80 MG DAILY. DIABETES HEALTH FORMULA 1 CAP DAILY. GABAPENTIN 300 MG TID. GLARGINE INSULIN 50 UNITS AT BEDTIME. INSULIN ASPART DIRECTED. LISINOPRIL 10 MG DAILY. METAXALONE 800 MG EVERY 8 HOURS NEEDED. OMEGA-3 FATTY ACIDS 1 CAP DAILY. TRAMADOL 50 MG EVERY 6 HOURS NEEDED. Imaging Technique: Protocol: Regadenoson. Acquisition: Gated SPECT; 1 day - rest/stress. The patient was imaged in the supine position. Attenuation correction used. Isotope administration: - Rest. Tc[99m]-sestamibi. Dose: 12.5mCi. Injection time: 08:03 AM. Injection to stress time: 00:45. - Stress. Tc[99m]-sestamibi. Dose: 34.4mCi. Injection time: 10:28 AM. 1-2 min before end of exercise Baseline ECG: SINUS RHYTHM. LBBB PATTERN. PROLONGED ID INTERVAL. Stress protocol: +--------+---+ + + !Stage !HR !BP (mmHg) !Comments ! +--------+---+ + + !Baseline!93 !120/74 (89)! ! +--------+---+ + + !1 min !102!120/74 (89)!Inject Regadenoson.! +--------+---+ + + !3 min !102!124/74 (91)! ! +--------+---+ + + !6 min !99 !128/76 (93)! ! +--------+---+ + + * Stress results: The rate-pressure product for the peak heart rate and blood pressure was 79246zq Hg/min. Stress ECG: AT BASELINE AND THROUGHOUT TESTING SINUS RYTHM, LBBB PATTERN AND 1ST DEGREE AV BLOCK. STRESS TEST ENDED IN 6 MINUTES & 30 SECONDS WHEN ALL SYMPTOMS OF LEXISCAN SUBSIDED. NORMAL HEART RATE AND BLOOD PRESSURE RESPONSE TO LEXISCAN INJECTION. NO ECTOPY NO ANGINA NO SIGNIFICANT ST CHANGES SEEN. Myocardial perfusion: Imaging information: gated. There is a large sized, complete, fixed defect involving the inferior and apical wall(s). This suggests minimal ischemia and large myocardial infarction in the distribution of the right coronary artery. Overall ischemia: minimal. Ventricular Function (Wall Motion): The calculated left ventricular ejection fraction after stress: 16%. No left ventricular regional motion abnormality. There is dyskinesis involving the apical wall(s) of the left ventricle. Study data: Luis Felipe Garcia MD supervised and was readily available during the procedure. This study was interpreted by [facility]. Study status: Routine. Consent: The risks, benefits, and alternatives to the procedure were explained to the patient and informed consent was obtained. Procedure: Initial setup. A baseline ECG was recorded. Surface ECG leads and manual cuff blood pressure measurements were monitored. Heart sounds: Normal. Lung sounds: Normal. Regadenoson stress test. Stress testing was performed, with regadenoson by intravenous bolus, for a total dose of 0.4mgover 10.00sec, followed by a 5ml saline flush. The infusion was terminated due to per protocol. The patient was unable to exercise due to left bundle branch block. Study completion: All catheters inserted during the procedure were removed. The patient tolerated the procedure well and was discharged from the lab. Discharge: The patient left the laboratory in stable condition. Birthdate: Patient birthdate: 1950. Sex: Gender: male. Study date: Study date: 06/13/2017. Study time: 09:30 AM. Electronically signed by Luis Felipe Garcia MD 06/13/2017 18:29 Ordering provider: Hector Ron CC: LUIS FELIPE GARCIA MD Dictated by: SALONI HULL M.D.06/14/17 1300 <Electronically signed by SALONI HULL M.D.>06/15/17 1538 Disclaimer: The [facility] radiologist is signing only the Nuclear Medicine MPI Imaging exam portion of the report. Transcribed by: Alexandra Jay06/15/17 0533 This is privileged, confidential information intended only for the provider named. Any use or distribution by any person other than this provider is strictly prohibited. If you receive this report in error, please notify us immediately at [phone] and return the original report to us at the address above. Thank-you. Echocardiogram Summary: Patient Name: CARLOS GAN Unit #: [id number] Loc: DI Ordering Provider: Boris Lambert M.D. Status: REG CLI Primary Care Provider: Hector Ron Date of Exam: 09/21/17 Sex: M : 1950 Age: 67 Exam(s) [id number] US:Echocardiogram Heart *[facility]* *[facility]* [address] [place] [address] Date of study: 09/21/2017 Transthoracic Echocardiography M-mode, complete 2D, complete spectral Doppler, and color Doppler *STUDY CONCLUSIONS* Summary: 1. Study data: Comparison was made to the study of 06/13/2009. EF 25-30% then. AK ant apical. 2. Left ventricle: The cavity size was normal. Wall thickness was increased in a pattern of severe LVH. Systolic function was mildly reduced. The estimated ejection fraction was 45-50%. Moderate hypokinesis of the inferior and apical myocardium. Diastolic parameters were normal for age. There was no evidence of elevated ventricular filling pressure by Doppler parameters. 3. Mitral valve: There was mild to moderate regurgitation. 4. Right ventricle: The cavity size was normal. Wall thickness was normal. Systolic function was normal. 5. Atrial septum: No defect or patent foramen ovale was identified. 6. Pulmonary arteries: Pulmonary systolic pressure was in the range of 15mm Hg to 25mm Hg. 7. Inferior vena cava: The vessel was patent and normal in size. The respirophasic diameter changes were in the normal range (greater than or equal to 50%), consistent with normal central venous pressure. *PATIENT PRESENTATION* Height: 167.6cm ((66in) ) S/D Pressure: 111 / 73 Weight: 125.6kg ((276.4lb) ) BSA: 2.49m^2 Test start time: 02:30 PM. Test stop time: 04:00 PM. PERFORMING Unknown ORDERING Boris Lambert REFERRING Boris Lambert PERFORMING [facility] WELDER ASSISTANT RT Miky Cevallos)(SANDY) [facility] *PROCEDURE DATA* Procedure information: The patient was identified by two identifiers. This study was interpreted by [facility]. Pertinent images and digital data are archived for permanent storage and are available for subsequent review. Comparison was made to the study of 06/13/2009. Study status: Routine. Transthoracic echocardiography. M-mode, complete 2D, complete spectral Doppler, and color Doppler. A Transthoracic Echocardiogram was performed. Scanning was performed from the parasternal, apical, subcostal, and suprasternal notch acoustic windows. Images were obtained using an [id number] cardiac ultrasound machine. Image quality was adequate. Study completion: The patient tolerated the procedure well. History: PMH: Ischemic cardiomyopathy I25.5 *CARDIAC ANATOMY* Left ventricle: The cavity size was normal. Wall thickness was increased in a pattern of severe LVH. Systolic function was mildly reduced. The estimated ejection fraction was 45-50%. Regional wall motion abnormalities: Moderate hypokinesis of the inferior and apical myocardium. The tissue Doppler parameters were abnormal. Diastolic parameters were normal for age. There was no evidence of elevated ventricular filling pressure by Doppler parameters. Aortic valve: Doppler: There was no stenosis. There was no regurgitation. VTI ratio of LVOT to aortic valve: 0.78. Valve area (VTI): 2.8cm^2. Indexed valve area (VTI): 1.1cm^2/m^2. Peak velocity ratio of LVOT to aortic valve: 0.77. Valve area (Vmax): 2.8cm^2. Indexed valve area (Vmax): 1.1cm^2/m^2. Mean gradient (S): 3.2mm Hg. Aorta: Aortic root: The aortic root was normal in size. Ascending aorta: The ascending aorta was normal in size. Mitral valve: Doppler: There was no evidence for stenosis. There was mild to moderate regurgitation. Valve area by pressure half-time: 4.7cm^2. Indexed valve area by pressure half-time: 1.9cm^2/m^2. Left atrium: The atrium was normal in size. Atrial septum: No defect or patent foramen ovale was identified. Right ventricle: The cavity size was normal. Wall thickness was normal. Systolic function was normal. Pulmonic valve: Doppler: There was no evidence for stenosis. There was trivial regurgitation. Tricuspid valve: Doppler: There was mild regurgitation. Pulmonary artery: Poorly visualized. Pulmonary systolic pressure was in the range of 15mm Hg to 25mm Hg. Right atrium: The atrium was normal in size. Pericardium: There was no pericardial effusion. Systemic veins: Inferior vena cava: Well visualized. The vessel was patent and normal in size. The respirophasic diameter changes were in the normal range (greater than or equal to 50%), consistent with normal central venous pressure. Baseline ECG: Normal sinus rhythm. Measurements Left ventricle Value Reference LV ID, ED, PLAX 5.1 cm 3.5 - 6.0 LV ID, ES, PLAX 3.7 cm 2.1 - 4.0 LV PW thickness, ED, PLAX 1.5 cm LV end-diastolic volume, 1-p A2C 124 ml LV ejection fraction, 1-p A2C 35 % LV end-diastolic volume, 1-p A4C 163 ml LV ejection fraction, 1-p A4C 43 % Ventricular septum Value Reference IVS thickness, ED, PLAX 1.7 cm LVOT Value Reference LVOT ID, A-P 2.2 cm LVOT area 3.6 cm^2 LVOT peak velocity, S 0.92 m/sec LVOT VTI, S 20.5 cm LVOT mean gradient, S 1.7 mm Hg Aortic valve Value Reference Aortic valve peak velocity, S 1.2 m/sec Aortic valve mean velocity, S 0.01 m/sec Aortic mean gradient, S 3.2 mm Hg VTI ratio, LVOT/AV 0.78 Aortic valve area, VTI 2.8 cm^2 Velocity ratio, peak, LVOT/AV 0.77 Aortic valve area, peak velocity 2.8 cm^2 Aorta Value Reference Aortic root ID, ED 3.1 cm Ascending aorta ID, A-P, S 3.9 cm Left atrium Value Reference LA area, ES, A4C 18.2 cm^2 8.8 - 23.4 LA volume/bsa, ES, 1-p A4C 23 ml/m^2 LA/aortic root ratio 1.51 Mitral valve Value Reference Mitral E-wave peak velocity 0.62 m/sec Mitral A-wave peak velocity 0.97 m/sec Mitral deceleration time 163 ms 150 - 230 Mitral pressure half-time 47 ms Mitral E/A ratio, peak 0.63 Mitral valve area, PHT, DP 4.7 cm^2 Tricuspid valve Value Reference Tricuspid regurg peak velocity 2.2 m/sec Tricuspid peak RV-RA gradient 18.8 mm Hg Right atrium Value Reference RA area, ES, A4C 11.7 cm^2 8.3 - 19.5 Legend: (L) and (H) kylee values outside specified reference range. Anesthesia Assessment and Plan Anesthesia History Personal History: No History of Anesthesia Complications Family History: No Family History of Anesthesia Complications Exercise Tolerance Exercise Tolerance: Metabolic Equivalents>4 Pertinent Negatives Pertinent Negatives: No Symptoms of GERD Cardiac & Pulmonary Exam Cardiac Exam: Normal S1/S2 Heart Sounds and Heart Murmur Present Pulmonary Exam: Clear Bilateral Breath Sounds Implantable Cardiac Device Does patient have a Pacemaker or an ICD?: No Airway Exam Known Difficult Airway: No Mallampati Class: 2 Mouth Opening: Normal (> 3cm) Thyromental Distance: Greater than 3 cm Neck Range of Motion: Full ROM Neck Circumference: Normal Teeth Condition: Generalized Poor Dentition and Loose or Chipped Airway Comments: Very few teeth left and in poor condition ASA Classification ASA Score: ASA 3 Emergency Case?: No NPO Status NPO Status: NPO Clears >2 hours, Solids >8 hours Anesthesia Plan Resuscitation Status: Full Code Anesthesia Technique: MAC Anesthesia Airway Planned: Natural Airway Monitors Used: Standard Monitors
[2025-01-04 09:30] VITALS: BMI 42.9
[2025-01-04] MEDS: Moxifloxacin-PF 1 MG/ML VIAL (10:19)
[2025-01-04] MEDS: Phenylephrine/Lidocaine (15/10) MG/ML 1 ML VIAL (10:20)
[2025-01-04] MEDS: Duovisc Viscoelastic System EACH 1 EACH (10:20)
[2025-01-04] MEDS: Lidocaine 1% Pres-Free 5 ML VIAL (10:21)
[2025-01-04] MEDS: Povidone-Iodine Ophth 30 ML BTL (10:21)
[2025-01-04] MEDS: Trypan Blue 0.06% 0.5 ML SYR (10:22)
[2025-01-04] MEDS: Balanced Salt Soln.-PLUS 500 ML BAG OP (10:23)
[2025-01-04] MEDS: Prednisolone 1%, Moxifloxacin 0.5%, Bromfenac 0.09% 5.6ML BTL OD (10:24)
[2025-01-04] MEDS: Tetracaine 0.5% 4 ML BTL OD (10:25)
[2025-01-04 10:46] VITALS: BP 138/70; PULSE 82; RESP 20; TEMP 36.6; O2SAT 95
--- NOTE | 2025-01-04 10:47 | W.PM.DSUDISC ---
Date of service: 01/04/25 Discharge Plan Disposition Patient Disposition: Home Discharge Details Attending Provider: Bennett Valencia Primary Care Provider: Horacio Molina Home Meds and New Rx's Prescriptions: No Action Humira(CF) 40 mg/0.4 mL syringe kit 40 mg SC Q2W lisinopril 2.5 mg tablet 2.5 mg PO DAILY Qty: 90 3RF furosemide 40 mg tablet 20 mg PO DAILY Levemir FlexTouch U100 Insulin 100 unit/mL (3 mL) insulin pen 50 unit subcut QAM AND QHS magnesium oxide 500 mg tablet 500 mg PO BID atorvastatin 40 mg tablet 40 mg PO DAILY Patient Comments: 07/06/23 per pcp med list RH cholecalciferol (vitamin D3) 1,000 unit capsule 1,000 unit PO DAILY omega-3 fatty acids-fish oil 1 EACH capsule 1 ea PO DAILY ammonium lactate 12 % Lotion 1 applic TOPICAL BID triamcinolone acetonide 0.1 % Cream 1 applic TOPICAL BID Jardiance 25 mg Tablet 25 mg PO DAILY aspirin 81 MG tablet,chewable 81 mg PO DAILY AM gabapentin 600 MG tablet 300 mg PO TID Diabetes Health Formula 1 EACH tablet 1 ea PO DAILY AM acetaminophen 500 mg Tablet 500 mg PO Q6H PRN liraglutide [[employer] 2-Yousuf] 0.6 mg/0.1 mL (18 mg/3 mL) Pen Injector 1.8 mg subcut DAILY (DME) blood-glucose meter [OneTouch Ultra2 Meter] Mis See Rx Instructions .Route Qty: 1 0RF Rx Instructions: As directed (DME) OneTouch Ultra Test Strip See Rx Instructions .Route Qty: 100 0RF Rx Instructions: As directed Fi[employer] FlexTouch U-100 Insulin 100 unit/mL (3 mL) insulin pen 1 sliding scale dose subcut USEASDIRECTD adalimumab-aacf 40 mg/0.8 mL syringe kit 40 mg subcut DIRECTED Rx Instructions: start on day 29 of therapy metoprolol succinate 25 mg tablet extended release 24 hr 25 mg PO DAILY Patient Comments: TAKE ONE TABLET BY MOUTH EVERY DAY Ozempic 1 mg/dose (4 mg/3 mL) pen injector 1 mg SUBCUT DIRECTED Patient Comments: INJECT 1 MG SUBCUTANEOUSLY ONCE WEEKLY spironolactone [Aldactone] 50 mg tablet 50 mg PO DAILY Discharge Instructions Stand Alone Forms: DSU Post-Op Cataract, Press Ganey (DSU) Discharge Orders Discharge Orders: Discharge Order (Routine); Ordered 01/04/25 Ordered By: Bennett Valencia DS: Diagnosis Discharge Diagnosis (1) Cortical age-related cataract, right eye: Status: Resolved (2) Nuclear age-related cataract, right eye: Status: Resolved
--- NOTE | 2025-01-04 10:48 | W.PM.OP ---
Operative Note Operative Note PRE-OP DIAGNOSIS: Dense nuclear/cortical cataract, right eye POST-OP DIAGNOSIS: same Significant generalized zonular laxity, right eye PROCEDURE: Cataract extraction using phacoemulsification with intraocular lens implant, right eye Insertion of capsular tension ring, right eye SURGEON: Bennett Valencia ANESTHESIA TYPE: Local By Surgeon and MAC Refer to Anesthesia Record ESTIMATED BLOOD LOSS: 0 PATHOLOGY: none sent COMPLICATIONS: None Patient was transported to: same day Patient's condition: stable Implants: Corey Clareon [id number] Morcher Type 15 capsular tension ring Indications: Progressive decreased vision due to cataract, right eye Procedure Description: CATARACT SURGERY OPERATIVE REPORT PREOPERATIVE DIAGNOSIS: Dense nuclear/cortical cataract, right eye POSTOPERATIVE DIAGNOSIS: Same OPERATION: Cataract extraction using phacoemulsification with posterior chamber intraocular lens implant, right eye. Insertion of capsular tension ring, right eye IOL: IOL Public Service Administrator/Model: Corey Clareon [id number] IOL Power: + 20.5 diopters IOL Serial Number: [id number] Optic Diameter: 6.0mm Haptic/Overall Diameter: 13.0mm PHACO INFO: Corey Trac [employer] Vision System with OZil and Active Fluidics Cumulative Dispersed Energy (CDE): 14.71 seconds SURGEON: Bennett Valencia MD, KONSTANTIN ANESTHESIA: Monitored Anesthesia Care (MAC), with local sub-tenon's anesthetic infiltration COMPLICATIONS: None SPECIMENS: None INDICATIONS FOR PROCEDURE: The patient is a 74-year-old male with history of diminished visual acuity in both eyes secondary to the development of bilateral nuclear/cortical cataract. He has already undergone cataract surgery in the left eye and is doing well postoperatively. He now presents for cataract surgery in the right eye. See office notes for detailed information. PROCEDURE: The correct surgical eye was identified and marked as the right eye and the pupil was dilated in the preoperative area using mydriatics and cycloplegics. The dilated pupil size was 7.0 mm. The patient elected to proceed without oral sedation. The patient was brought to the operating room where cardiopulmonary monitoring was instituted and surgical time-out was performed, confirming the correct operative eye and IOL power. Topical anesthesia was administered and ophthalmic povidone-iodine 5% was instilled into the conjunctival fornices. The estrellita-ocular area was prepped with Betadine 10% solution and draped in the usual sterile fashion for intraocular surgery, including an aperture drape. A Tegaderm transparent film dressing was cut in half and used to cover the lashes and lid margins. Care was taken to sequester the lashes and lid margins under the Tegaderm dressing. A lid speculum was placed between the lids of the operative eye and the Corey LuxOR Revalia operating microscope was maneuvered into position. Kevin scissors were then used to make a conjunctival buttonhole approximately 6mm posterior to the limbus in the inferonasal quadrant. Blunt dissection was carried out to expose bare sclera, and a blunt-tipped sub-tenon?s anesthesia cannula was introduced and passed posteriorly along the globe where non-preserved plain lidocaine was injected into posterior sub-Tenon?s space. A sideport knife was used to make a paracentesis port. VisionBlue was injected into the anterior chamber and allowed to sit for 30 seconds. Intraocular phenylephrine/lidocaine was injected into the anterior chamber. The anterior chamber was then filled with viscoelastic. The anterior chamber was noted to be quite deep. A keratome knife was used to construct a two--plane clear corneal tunnel extending 2.0mm into clear cornea. Very low scleral rigidity was noted, with a very soft eye. A flap was raised on the anterior capsule and capsulorhexis forceps were used to complete a continuous curvilinear capsulorhexis of 4.8 mm. The capsule was noted to be quite thin with loose zonules. Balanced salt solution was then used to perform cortical cleaving hydrodissection and nuclear hydrodelineation until the lens could be freely rotated within the capsular bag. The lens nucleus was then disassembled and removed within the capsular bag and iris plane using phacoemulsification. Residual cortical material was removed using the I/A handpiece. The posterior capsule was carefully polished to remove as much residual lens epithelial cells as safely possible. The capsular bag was then inflated and the anterior chamber deepened with cohesive viscoelastic. A Morcher Type 15 capsular tension ring was inserted into the capsular bag to stabilize the zonules, and as prophylaxis against anterior capsular phimosis. The lens implant described above was inserted into the capsular bag using the Corey Autonome Injector. A Kuglen hook was used to dial the IOL into position. Residual viscoelastic was then removed first from posterior to the IOL, then from the anterior chamber using the I/A handpiece. The lens implant was noted to center nicely within the capsular bag. The incisions were stromally hydrated, and the anterior chamber was reformed using BSS. Then 0.5cc of moxifloxacin 1.0mg/ml were injected into the capsular bag and anterior chamber. The incisions were checked with a Weck spear and found to be secure. Several drops of ophthalmic povidone-iodine 5% were then applied to the eye followed by two drops of combination steroid/NSAID/antibiotic solution. The drapes were removed and a clear plastic protective eye shield was placed over the eye. The patient was then returned to Same Day Surgery in stable condition. Date of Procedure: 01/04/25
--- NOTE | 2025-01-04 11:04 | W.ANESPOSTOP ---
Postoperative Evaluation Date, Time and Location Date Performed: 01/04/25 Time Performed: 11:02 Patient Location: Day Surgery Unit Vital Signs Most Recent Imported Vital Signs: Most Recent Vital Signs Temp Pulse Resp BP Pulse Ox 36.6 C 82 20 138/70 95 01/04/25 10:46 01/04/25 10:46 01/04/25 10:46 01/04/25 10:46 01/04/25 10:46 Pain Score Most Recent Pain Score: Most Recent Pain Score Pain Level 0 01/04/25 10:46 Assessment Mental Status: Awake (Alert & Oriented to Patient Baseline) Airway and Respiratory Function: Patent airway with normal (patient baseline) respiratory exam Cardiovascular Function: Hemodynamically Stable Hydration Status: Adequately Hydrated Nausea & Vomiting: No Nausea or Vomiting Pain: Pt. Denies Any Pain Peripheral Nerve Block: Patient did not receive a nerve block
== END 2025-01-04 11:20 | disposition home or self-care (01) ==
PROVIDERS: PCP Student in an Organized Health Care Education/Training Program; Visit Provider Ophthalmology
PROC: (CPT 66982; principal; 2025-01-04 10:30)
DX: H25.011 Cortical age-related cataract, right eye (principal); H25.11 Age-related nuclear cataract, right eye; Z98.42 Cataract extraction status, left eye
CPT/HCPCS: 66982; 00123; V2632; J2003

== ENCOUNTER 2025-06-27 09:50 | Outpatient (CLI) | payer MEDICARE, SELFPAY ==
--- NOTE | 2025-06-27 09:45 | RT.EKG_ITS ---
APPROVED REPORT Exam: Resting ECG Reason for Exam: CAD Patient Location: O HR:88 bpm ECG Measurements Heart Rate 88 AXIS UT 257 P -22 QRSd 152 QRS -102 QT 401 T 26 QTc 486 Conclusion Sinus rhythm...normal P axis, V-rate 50- 99 Prolonged UT interval...UT >220, V-rate 50- 90 RBBB and LAFB...QRSd >120mS, axis(-40,240)
== END 2025-06-27 09:51 | disposition home or self-care (01) ==
LOC: DI.CARD 09:50
PROVIDERS: PCP Student in an Organized Health Care Education/Training Program; Visit Provider Internal Medicine Cardiovascular Disease
DX: I25.10 Atherosclerotic heart disease of native coronary artery without angina pectoris (principal); I45.10 Unspecified right bundle-branch block; I44.4 Left anterior fascicular block
CPT/HCPCS: 93010

== ENCOUNTER → 2025-06-27 10:42 | Outpatient (BNVA) | payer MEDICARE, SELFPAY | PROVIDERS: PCP Student in an Organized Health Care Education/Training Program; Visit Provider Internal Medicine Cardiovascular Disease | DX: I25.10 Atherosclerotic heart disease of native coronary artery without angina pectoris (principal); Z95.1 Presence of aortocoronary bypass graft; I73.9 Peripheral vascular disease, unspecified; E11.59 Type 2 diabetes mellitus with other circulatory complications; I10 Essential (primary) hypertension | CPT/HCPCS: 93005; 99213 ==